=== PATIENT | male | born 2000 | race Two or more races ===

== ENCOUNTER 2025-04-12 03:05 | Emergency (ER) | payer MEDICARE, MEDICAID, SELFPAY ==
[2025-04-12 03:16] VITALS: BMI 25.2
[2025-04-12 03:28] VITALS: PULSE 98; RESP 19; TEMP 36.5; O2SAT 97
--- NOTE | 2025-04-12 03:29 | PC.NURSE ---
difficulty obtaining b/p due to patient constantly moving-per father baseline for patient
[2025-04-12 03:48] VITALS: BP 112/83; PULSE 75; RESP 19; TEMP 36.5; O2SAT 94
--- NOTE | 2025-04-12 04:16 | PD.EDFALL ---
ED Fall Injury RME/HPI General Chief Complaint: Wound/Laceration Stated Complaint: FALL Time Seen by Provider: 04/12/25 03:58 Arrival date/time: 04/12/25 03:05 RME / HPI RME / HPI Narrative: DR. LEO MAIN ED EVALUATION: Patient with Hx of Cerebral Palsy/Developmental Delay reportedly fell from bed while sleeping and procured a laceration to the inferior aspect of the chin. Patient woke up upon impact. No seizure activity or incontinence. Paramedics were summoned and transported patient for evaluation. Patient mildly agitated upon arrival without specific complaint. PMH: CP/Developmental Delay. PSH: Noncontributory. Social:Nondrinker, Nonsmoker, No illicit drug abuse. Fall from: out of bed Place fall occurred: home Loss of consciousness: none Symptoms prior to fall: none Context: history of frequent falls Location of injury: head and face Related Data Home Medications ?Medication ?Instructions ?Recorded ?Confirmed acetaminophen 160 mg/5 mL oral 650 mg feeding tube Q4HR PRN fever 01/16/21 11/02/23 liquid or pain ascorbic acid (vitamin C) 1,000 mg 1 g feeding tube QDAY 01/16/21 11/02/23 tablet (Vitamin C) fluticasone propionate 50 1 spray intranasal BID 01/16/21 05/08/24 mcg/actuation nasal spray,suspension ofloxacin 0.3 % ear drops in a 5 drp otic (ear) BID 01/16/21 11/02/23 dropperette ciprofloxacin 0.3 %-dexamethasone 4 drp otic (ear) BID 03/06/21 11/02/23 0.1 % ear drops,suspension (Ciprodex) omeprazole 20 mg capsule,delayed 20 mg feeding tube DAILY 09/27/23 11/02/23 release levetiracetam 100 mg/mL oral 100 mg feeding tube BID 05/08/24 05/08/24 solution montelukast 10 mg tablet 10 mg feeding tube DAILY 05/08/24 05/08/24 quetiapine 100 mg tablet 100 mg feeding tube HS 05/08/24 05/08/24 quetiapine 50 mg tablet 50 mg feeding tube QAM 05/08/24 05/08/24 Previous Rx's ?Medication ?Instructions ?Recorded acetaminophen 650 mg rectal 650 mg MN Q4H PRN fever #12 ea 03/08/21 suppository (Feverall) albuterol sulfate 2.5 mg/3 mL 2.5 mg (3 mL) continuous 10/08/23 (0.083 %) solution for nebulization nebulization PRN PRN Bronchospasm #90 mL benzonatate 100 mg capsule 100 mg PO TID PRN cough #90 caps 10/08/23 budesonide 0.25 mg/2 mL suspension 0.5 mg (4 mL) inhalation BID #60 mL 10/08/23 for nebulization deutetrabenazine 12 mg 12 mg PO QDAY #30 tabs 10/08/23 tablet,extended release 24 hr (Austedo XR) Held on 05/15/24. Instructions: Follow-up with Dr Lang on dosing. ondansetron HCl 4 mg/5 mL oral 4 mg (5 mL) PO Q8H PRN nausea and 10/08/23 solution vomiting #150 mL polyethylene glycol 3350 17 gram 17 g feeding tube QDAY #100 ea 10/08/23 oral powder packet valproic acid (as sodium salt) 250 250 mg (5 mL) PO TID #473 mL 10/08/23 mg/5 mL oral solution clonazepam 0.5 mg tablet 0.5 mg PO BID PRN agitation #60 11/12/23 tabs ibuprofen 100 mg/5 mL oral 600 mg (30 mL) PO Q6H PRN fever 04/30/24 suspension #473 mL doxycycline hyclate 100 mg tablet 100 mg PO BID #30 tabs 05/15/24 acetaminophen 160 mg/5 mL oral 640 mg (20 mL) PO Q4H PRN fever 2 05/25/24 liquid days #118 mL ibuprofen 100 mg/5 mL oral 680 mg (34 mL) PO Q8H #118 mL 05/25/24 suspension Allergies Allergy/AdvReac Type Severity Reaction Status Date / Time valbenazine (From Ingrezza) Allergy Severe Agitated Verified 11/02/23 00:43 Sulfa (Sulfonamide Allergy Intermediate Rash Verified 11/02/23 00:43 Antibiotics) glycopyrrolate Allergy Rash Verified 11/02/23 00:43 haloperidol Allergy Rash Verified 11/02/23 00:43 sulfamethoxazole (From Allergy Rash Verified 11/02/23 00:43 Bactrim) trimethoprim (From Bactrim) Allergy Rash Verified 11/02/23 00:43 vancomycin AdvReac Intermediate Rash Verified 11/02/23 00:43 lorazepam (From Ativan) AdvReac Mild Agitated Verified 05/08/24 16:44 Review of Systems Review of Systems Systems Reviewed: All systems reviewed, normal except as documented Past Medical History Past Medical History NEUROLOGIC: Positive Neurological Disorders, Seizures, Epilepsy and Cerebral Palsy RESPIRATORY: Positive Asthma and Pneumonia GASTROINTESTINAL: Positive Gastrointestinal Disorders MUSCULOSKELETAL: Positive Musculoskeletal Disorders ENT: Positive Ear Infection (tubes in ears 2013) HEMATOLOGIC: Positive Clotting Problems PSYCHO/SOCIAL: Positive Depression, Anxiety and Behavior Problems OTHER HISTORY: Positive Hospitalization, Developmental Delay and Falls Family History FAMILY HISTORY: Positive Family Respiratory Disorders and Family Surgery Surgical History SURGICAL: Positive Ear Surgery, Abdominal Surgery and Bowel Surgery ED Exam Narrative Physical exam: GEN. APPEARANCE: The patient is alert awake oriented X-3 in no distress, lying down comfortably, does not look ill/toxic. Patient has good eye contact. Patient is cooperative. Patient mildly agitated with increased psycho-motor activity. VITALS: All vitals were reviewed and the pulse ox is 97% on room air which is normal according to my interpretation. HEENT: Normocephalic, Horizontally oriented full-thickness 4 cm laceration to underside of the chin.. Pupils are equal and reactive. Oral mucosa is moist. Patent Nares NECK: Supple, nontender, no thyromegaly, no meningismus, no JVD, no step offs CHEST: Symmetrical, atraumatic, and with equal expansion , Nontender on palpation no deformity and no crepitus. CARDIOVASCULAR: Heart regular rhythm no murmur or gallop rub or extra beats. LUNGS: Clear to auscultation bilaterally with symmetrical chest rise. No laboring tachypnea or wheezing. No intercostal subcostal retraction. No rales and no rhonchi. ABDOMEN: Soft, flat, nontender to palpation, no guarding or rebound tenderness. There are no abnormal masses palpated. Active and normal bowel sounds. EXTREMITIES: Nontender. No edema. No cyanosis. Patient is able to move all 4 extremities well, with full ROM and good CSM. SKIN: Warm and dry, no jaundice or rashes noted. MUSCULOSKELETAL: No lubar or midline bony tenderness. There is no CVA tenderness. No paraspinal muscle spasm or tenderness. NEURO: Patient is SOTELO x 4, Cranial nerves II through XII grossly intact. There is no focal neurologic deficits noted. GCS is 15, PNS and [employer]ICE appear grossly intact. PSYCHIATRIC: Mildly agitated, unable to follow commands and thereby unable for fully assess. Course Quality Measures none Orders Category Date Time Status CT head/brain wo con Stat Exams 04/12/25 04:25 Taken DiphenhydrAMINE INJ [Benadryl Inj] Med 04/12/25 06:08 Discontinued 50 mg .ROUTE .STK-MED ONE DiphenhydrAMINE INJ [Benadryl Inj] Med 04/12/25 06:07 Discontinued 50 mg IVP X1 ONE Lidocaine 1% 20 ml [Xylocaine 1% 20 ML] Med 04/12/25 04:26 Discontinued 10 ml INFL X1 ONE Midazolam Inj [Versed Inj] Med 04/12/25 06:02 Discontinued 2 mg .ROUTE .STK-MED ONE Midazolam Inj [Versed Inj] Med 04/12/25 06:05 Discontinued 2 mg IVP X1 ONE Midazolam Inj [Versed Inj] Med 04/12/25 04:58 Discontinued 2.5 mg IVP X1 ONE TET,DIP/PERT AC (Adult)-Tdap [Boostrix Adult (Tdap) Med 04/12/25 04:26 Discontinued Vacc] 0.5 ml IMI .ONCE ONE Vital Signs Vital signs: Vital Signs Temperature 97.7 F 04/12/25 03:28 Pulse Rate 98 04/12/25 03:28 Respiratory Rate 19 04/12/25 03:28 Pulse Oximetry (%) 97 04/12/25 03:28 PROCEDURES: Laceration Laceration 1: Site: face (Chin) Size (cm): 4 Description: linear Depth: involves muscle layer Local Anesthetic: lidocaine 1% Amount of anesthesia used (mL): 5 Pre-repair: wound explored, irrigated extensively, deep structures intact and wound margins revised Skin layer closed with: vicryl Suture size (cm): 4-0 Number of sutures: 2 Technique: simple, interrupted Subcutaneous layer closed with: other (prolene) Size: 5-0 Number of sutures: 4 Technique: simple, interrupted Fall MDM Narrative MDM Narrative:: Scribe Attestation: Alley Banuelos, am scribing for and in the presence of Dr. Leo. Provider Notation: Although this document has been carefully reviewed, there may still be some phonetic and other typographical errors. These errors are purely grammatical due to imperfections in the software program and should not be construed in any way to compromise the substance of the patient's medical care during this visit. Patient with Hx of Cerebral Palsy/Developmental Delay reportedly fell from bed while sleeping and procured a laceration to the inferior aspect of the chin. Patient woke up upon impact. Please see PE findings. Patient referred for CT scan to R/O intracranial hemorrhage. Patient did require sedation for scan and laceration repair (please see procedure note). Will discharge to home when lucid if CT unremarkable. Disposition, Bacitracin will be prescribed. Head injury care instructions will be provided, suture removal in 6 days. Patient data External records reviewed:: [facility] previous records (Reviewed 05/24/24 20:52 Febrile seizure.) and EMS form Clinical information provided by:: EMS and parent Social determinants that could affect healthcare access:: none Patient has the following chronic illnesses:: Seizures, Epilepsy, Cerebral Palsy, Asthma, Depression, Anxiety, Behavior Problems, Developmental Delay How is presenting disease/condition affected by chronic disease/condition?: exacerbated by Evaluation data The following diagnostics were reviewed and interpreted by me:: radiology exam(s) Lab and/or radiology exams considered but not ordered:: None Interpretation Summary: RADIOLOGY Head/ Brain CT: Pending official radiology report. Medications / Prescriptions Medications or Prescriptions considered but not ordered:: None Medication administrations:: Medication Administration History Discontinued Medications Diphenhydramine HCl (Diphenhydramine Inj 50 Mg/Ml Vial) 50 mg IVP X1 ONE Stop: 04/12/25 06:08 Last Admin: 04/12/25 06:10 Dose: Not Given Documented By: DT Non-Admin Reason: Cancelled by Provider Diphenhydramine HCl (Diphenhydramine Inj 50 Mg/Ml Vial) Confirm Administered Dose 50 mg .ROUTE .STK-MED ONE Stop: 04/12/25 06:09 Diphtheria/Tetanus/Acell Pertussis (Diphth,Pertuss(Acell),Tet Vac 0.5 Ml Syr- Adult) 0.5 ml IMi .ONCE ONE Stop: 04/12/25 04:27 Last Admin: 04/12/25 04:34 Dose: 0.5 ml Documented By: CAYLA Lidocaine HCl (Lidocaine Hcl 1% 20 Ml Vial) 10 ml INFL X1 ONE Stop: 04/12/25 04:27 Last Admin: 04/12/25 04:38 Dose: 10 ml Documented By: CAYLA Comments: Administered by provider Midazolam HCl (Midazolam Inj 1 Mg/Ml Vial 2 Ml) 2.5 mg IVP X1 ONE Stop: 04/12/25 04:59 Last Admin: 04/12/25 05:11 Dose: 2.5 mg Documented By: CAYLA Midazolam HCl (Midazolam Inj 1 Mg/Ml Vial 2 Ml) Confirm Administered Dose 2 mg .ROUTE .STK-MED ONE Stop: 04/12/25 06:03 Last Admin: 04/12/25 06:05 Dose: Not Given Documented By: JOHN Non-Admin Reason: Duplicate Medication on eMAR Midazolam HCl (Midazolam Inj 1 Mg/Ml Vial 2 Ml) 2 mg IVP X1 ONE Stop: 04/12/25 06:06 Last Admin: 04/12/25 06:06 Dose: 2 mg Documented By: JOHN See above if any Consultations Consultation(s) initiated? (list below): No Diagnosis Fall Differential Diagnosis: compression fracture, concussion without loss of consciousness and other (Laceration) Most likely diagnosis given after review of the tests above:: Chin laceration s/p repair, Closed head injury, Hx of CP Admission Indicated Admission indicated?: not indicated Explain why admission is indicated or not indicated:: Patient does not meet admission criteria Admission Request Was there a request for admission?: No Disposition Plan Disposition Plan: Discharge Discharge Attestation Discharge Attestation: The patient and all family members were given an opportunity to ask questions and understood the discharge instructions. Discharge instructions specifically effects, indications for sooner follow up or return to the emergency department, and the expected course of current diagnosis. Patient condition: Stable Discharge Plan Plan Patient Disposition: HOME (Self Care) Prescriptions/Referrals Prescriptions/Med Rec: No Action ciprofloxacin-dexamethasone [Ciprodex] 0.3-0.1 % Drops,Suspension 4 drp OTIC (EAR) BID acetaminophen [Feverall] 650 mg suppository 650 mg MN Q4H PRN (Reason: fever) Qty: 12 0RF fluticasone propionate 50 mcg/actuation spray,suspension 1 spray INTRANASAL BID Patient Comments: PLEASE SEE ATTACHED FOR DETAILED DIRECTIONS ascorbic acid (vitamin C) [Vitamin C] 1,000 mg Tablet 1 g feeding tube QDAY ofloxacin 0.3 % Dropperette 5 drp OTIC (EAR) BID Rx Instructions: 5 drops into the let ear two time a day for 1o days acetaminophen 160 mg/5 mL liquid 650 mg feeding tube Q4HR PRN (Reason: fever or pain) omeprazole 20 mg capsule,delayed release(DR/EC) 20 mg feeding tube DAILY Patient Comments: TOME 1 CAPSULA POR VIA ORAL 30 MINUTOS BEFORE MORNING MEAL benzonatate 100 mg capsule 100 mg PO TID PRN (Reason: cough) Qty: 90 0RF ondansetron HCl 4 mg/5 mL solution 4 mg PO Q8H PRN (Reason: nausea and vomiting) Qty: 150 0RF albuterol sulfate 2.5 mg /3 mL (0.083 %) Solution For Nebulization 2.5 mg Continuous Nebulization PRN PRN (Reason: Bronchospasm) Qty: 90 0RF polyethylene glycol 3350 17 gram Powder In Packet 17 g feeding tube QDAY Qty: 100 0RF valproic acid (as sodium salt) 250 mg/5 mL Solution 250 mg PO TID Qty: 473 0RF budesonide 0.25 mg/2 mL Suspension For Nebulization 0.5 mg inhalation BID Qty: 60 0RF Austedo XR 12 mg tablet extended release 24 hr 12 mg PO QDAY Qty: 30 0RF ibuprofen 100 mg/5 mL suspension 600 mg PO Q6H PRN (Reason: fever) Qty: 473 0RF clonazepam 0.5 mg tablet 0.5 mg PO BID PRN (Reason: agitation ) Qty: 60 0RF quetiapine 50 mg tablet 50 mg feeding tube QAM quetiapine 100 mg tablet 100 mg feeding tube HS Patient Comments: TAKE 1 TABLET BY MOUTH DAILY AT NIGHT Rx Instructions: TAKE 1 TABLET BY MOUTH DAILY AT NIGHT montelukast 10 mg tablet 10 mg feeding tube DAILY Patient Comments: TOME ARBEN TABLETA TODOS LOS TOPETE FOR 90 DAYS levetiracetam 100 mg/mL solution 100 mg feeding tube BID Patient Comments: GIVE NICKY 8 MLS (800 MG TOTAL) BY PER G TUBE ROUTE 2 TIMES A DAY. doxycycline hyclate 100 mg tablet 100 mg PO BID Qty: 30 0RF acetaminophen 160 mg/5 mL liquid 640 mg PO Q4H PRN (Reason: fever) 2 Days Qty: 118 1RF ibuprofen 100 mg/5 mL suspension 680 mg PO Q8H Qty: 118 0RF Problem List Clinical Impression: CHI (closed head injury), Chin laceration, History of cerebral palsy Patient/Caregiver Discharge Instructions Print Language: Divehi Stand Alone Forms: Clari Award Info., Patient Portal Info Letter
--- NOTE | 2025-04-12 04:25 | XR_ITS ---
Examination: CT brain head without contrast. 2-D sagittal coronal reconstructions Date and time of exam:April 12, 2025, 0531 hrs., Comparison May 24, 2024 Indications: Patient fell today with laceration under the chin head pain CTDI: vol (mGy):52 DLP: (mGycm):1004 Technique: Multiple CT axial sections of the brain have been obtained, 5 mm slice thickness. Contrast has not been administered. 2-D sagittal, coronal reconstructions have been obtained Low dose protocols were performed. One or more of the following dose reduction techniques were used; automated exposure control, adjustment of the mA and/or KV according to patient size, use of iterative reconstruction technique. Findings: No significant ventricular enlargement. Intra-axial or extra-axial hemorrhage density is not seen. No mass effect or midline shift Basal cisterns are not remarkable. Fourth ventricle is midline. Cranial vault intact. Right mastoidectomy Impression: Negative for acute hemorrhage, mass effect or midline shift Bilateral chronic mastoiditis Acute right mastoiditis Suspicious for right cholesteatoma in the attic or Prussak's space, consider CT middle inner ear without contrast follow-up
[2025-04-12] MEDS: DIPHTH,PERTUSS(ACELL),TET VAC 0.5 ML SYR- ADULT IMi (04:34)
[2025-04-12] MEDS: LIDOCAINE HCL 1% 20 ML VIAL 10 ML INFL (04:38)
[2025-04-12] MEDS: MIDAZOLAM INJ 1 MG/ML VIAL 2 ML 2.5 MG IVP (05:11)
[2025-04-12 05:19] VITALS: BP 112/73; PULSE 84; RESP 19; O2SAT 97
--- NOTE | 2025-04-12 05:48 | PRELIM_ITS ---
CT scan of the head without intravenous contrast (axial sections with sagittal and coronal reformats). April 12, 2025 0531 hours Clinical History: Trauma Compared with the prior study dated 05/05/2024 Findings: No evidence of intracranial hemorrhage, mass effect or midline shift. The ventricles and CSF spaces are unremarkable. The calvarium is unremarkable. The visualized paranasal sinuses are clear.There is fluid in the bilateral mastoid air cells. Mastoidectomy changes are seen on the right. There is mild middle ear granulation tissue around ossicles on the right. Impression: No evidence of intracranial hemorrhage, mass effect or midline shift. Possible bilateral mastoiditis and right otitis. Recommend clinical correlation. Report Electronically Signed By: Camden Conway 04/12/2025 5:47:45 AM [EST]
[2025-04-12] MEDS: MIDAZOLAM INJ 1 MG/ML VIAL 2 ML 2 MG IVP (06:06)
[2025-04-12 06:41] VITALS: PULSE 77; TEMP 37.1
== END 2025-04-12 06:45 | disposition home or self-care (01) ==
LOC: SERX 06:32
PROVIDERS: Emergency Provider Emergency Medicine; PCP Family Medicine
DX: S01.81XA Laceration without foreign body of other part of head, initial encounter (principal); G80.9 Cerebral palsy, unspecified; W06.XXXA Fall from bed, initial encounter; Y93.84 Activity, sleeping; Z91.81 History of falling; Z23 Encounter for immunization
CPT/HCPCS: 12013; 70450; 90471; 90715; 96374; 96376; 99283; J2250; J3490

== ENCOUNTER 2025-05-08 00:05 | Inpatient (IN) | payer MEDICARE, MEDICAID, SELFPAY ==
[2025-05-08] VITALS (16 sets, daily range): BP systolic 110–147; BP diastolic 62–93; PULSE 79–176; RESP 18–42; TEMP 37.3–40.5; O2SAT 95–99
--- NOTE | 2025-05-08 00:50 | EKG_ITS ---
[facility] Test Date: 2025-05-08 Pat Name: CATARINA CARREON Department: Room: - Gender: Male [employer]: : [id number] Requested By: Atif Nobles Order Number: [id number] Reading MD: Atif Nobles Measurements Intervals [place] Rate: 172 P: MN: QRS: 75 QRSD: 82 T: 60 QT: 277 QTc: 469 Interpretive Statements SUPRAVENTRICULAR TACHYCARDIA NONSPECIFIC ST & T-WAVE ABNORMALITY CRITICAL TEST RESULT Compared to ECG 04/30/2024 13:05:35 T-wave abnormality now present Atrial fibrillation no longer present /store/S0/[id number]
[2025-05-08 01:04] LABS: Basophils # (Auto) 0.1 Thou/mm3 (0.0-0.2); Basophils % (Auto) 1 % (0-2.5); Eosinophils # (Auto) 0.3 Thou/mm3 (0.0-0.5); Eosinophils % (Auto) 2 % (0-10); Hematocrit 44.7 % (41.0-53.0); Hemoglobin 14.0 g/dL (13.5-16.0); Immature Granulocytes Auto 0.08 Thou/mm3 (0.00-0.00); Lymphocytes # (Auto) 4.3 Thou/mm3 (1.0-4.8); Lymphocytes % (Auto) 26 % (10-50); Mean Corpuscular HGB Conc 31.3 g/dl (31.0-37.0); Mean Corpuscular Hemoglobin 28.3 pg (25.0-35.0); Mean Corpuscular Volume 90 fL (80-100); Monocytes # (Auto) 1.8 Thou/mm3 (0.0-0.8); Monocytes % (Auto) 11 % (0-12); Neutrophils # (Auto) 9.9 Thou/mm3 (1.8-7.7); Neutrophils % (Auto) 61 % (37-80); Nucleated Red Blood Cell # 0.00 Thou/mm3 (0.00-0.00); Nucleated Red Blood Cell % 0 /100 WBC (0); Platelet Count 241 Thou/mm3 (140-440); RDW Standard Deviation 46.5 fL (35.1-43.9); Red Blood Count 4.95 Miln/mm3 (4.50-5.90); White Blood Count 16.3 Thou/mm3 (3.8-10.6)
--- NOTE | 2025-05-08 01:08 | PD.EDSEIZ ---
ED Seizures RME/HPI General Chief Complaint: Seizure Stated Complaint: SEIZURES Time Seen by Provider: 05/08/25 00:49 Arrival date/time: 05/08/25 00:05 RME / HPI RME / HPI Narrative: DR. LEO MAIN ED EVALUATION: Patient is severely debilitated with cerebral palsy/asthma/seizure disorder with ongoing fever for 24 hours cough, cold, congestion, no vomiting or diarrhea. 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 Baseline seizures characterized by tonic-clonic activity of left side of body only. No bowel or urinary incontinence. No obvious infectious exposure. PMH: Seizures, Epilepsy, ? 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: No Related Data Home Medications ?Medication ?Instructions ?Recorded ?Confirmed acetaminophen 160 mg/5 mL oral 650 mg feeding tube Q4HR PRN fever 01/16/21 11/02/23 liquid or pain ascorbic acid (vitamin C) 1,000 mg 1 g feeding tube QDAY 01/16/21 11/02/23 tablet (Vitamin C) fluticasone propionate 50 1 spray intranasal BID 01/16/21 05/08/24 mcg/actuation nasal spray,suspension ofloxacin 0.3 % ear drops in a 5 drp otic (ear) BID 01/16/21 11/02/23 dropperette ciprofloxacin 0.3 %-dexamethasone 4 drp otic (ear) BID 03/06/21 11/02/23 0.1 % ear drops,suspension (Ciprodex) omeprazole 20 mg capsule,delayed 20 mg feeding tube DAILY 09/27/23 11/02/23 release levetiracetam 100 mg/mL oral 100 mg feeding tube BID 05/08/24 05/08/24 solution montelukast 10 mg tablet 10 mg feeding tube DAILY 05/08/24 05/08/24 quetiapine 100 mg tablet 100 mg feeding tube HS 05/08/24 05/08/24 quetiapine 50 mg tablet 50 mg feeding tube QAM 05/08/24 05/08/24 Previous Rx's ?Medication ?Instructions ?Recorded acetaminophen 650 mg rectal 650 mg MI Q4H PRN fever #12 ea 03/08/21 suppository (Feverall) albuterol sulfate 2.5 mg/3 mL 2.5 mg (3 mL) continuous 10/08/23 (0.083 %) solution for nebulization nebulization PRN PRN Bronchospasm #90 mL benzonatate 100 mg capsule 100 mg PO TID PRN cough #90 caps 10/08/23 budesonide 0.25 mg/2 mL suspension 0.5 mg (4 mL) inhalation BID #60 mL 10/08/23 for nebulization deutetrabenazine 12 mg 12 mg PO QDAY #30 tabs 10/08/23 tablet,extended release 24 hr (Austedo XR) Held on 05/15/24. Instructions: Follow-up with Dr Lang on dosing. ondansetron HCl 4 mg/5 mL oral 4 mg (5 mL) PO Q8H PRN nausea and 10/08/23 solution vomiting #150 mL polyethylene glycol 3350 17 gram 17 g feeding tube QDAY #100 ea 10/08/23 oral powder packet valproic acid (as sodium salt) 250 250 mg (5 mL) PO TID #473 mL 10/08/23 mg/5 mL oral solution clonazepam 0.5 mg tablet 0.5 mg PO BID PRN agitation #60 11/12/23 tabs ibuprofen 100 mg/5 mL oral 600 mg (30 mL) PO Q6H PRN fever 04/30/24 suspension #473 mL doxycycline hyclate 100 mg tablet 100 mg PO BID #30 tabs 05/15/24 acetaminophen 160 mg/5 mL oral 640 mg (20 mL) PO Q4H PRN fever 2 05/25/24 liquid days #118 mL ibuprofen 100 mg/5 mL oral 680 mg (34 mL) PO Q8H #118 mL 05/25/24 suspension bacitracin 500 unit/gram topical 1 applic topical TID #14 grams 04/12/25 ointment Allergies Allergy/AdvReac Type Severity Reaction Status Date / Time valbenazine (From Ingrezza) Allergy Severe Agitated Verified 11/02/23 00:43 Sulfa (Sulfonamide Allergy Intermediate Rash Verified 11/02/23 00:43 Antibiotics) glycopyrrolate Allergy Rash Verified 11/02/23 00:43 haloperidol Allergy Rash Verified 11/02/23 00:43 sulfamethoxazole (From Allergy Rash Verified 11/02/23 00:43 Bactrim) trimethoprim (From Bactrim) Allergy Rash Verified 11/02/23 00:43 vancomycin AdvReac Intermediate Rash Verified 11/02/23 00:43 lorazepam (From Ativan) AdvReac Mild Agitated Verified 05/08/24 16:44 Review of Systems Review of Systems Systems Reviewed: All systems reviewed, normal except as documented Past Medical History Past Medical History NEUROLOGIC: Positive Seizures, Epilepsy and Cerebral Palsy RESPIRATORY: Positive Asthma and Pneumonia GASTROINTESTINAL: Positive Gastrointestinal Disorders MUSCULOSKELETAL: Positive Musculoskeletal Disorders ENT: Positive Ear Infection (tubes in ears 2013) HEMATOLOGIC: Positive Clotting Problems PSYCHO/SOCIAL: Positive Depression, Anxiety and Behavior Problems OTHER HISTORY: Positive Hospitalization, Developmental Delay and Falls Family History FAMILY HISTORY: Positive Family Respiratory Disorders and Family Surgery Surgical History SURGICAL: Positive Ear Surgery and Abdominal Surgery ED Exam Narrative Physical exam: GEN. APPEARANCE: The patient is non-verbal, occasionally tracks with significant psychomotor activity, lying down comfortably, does not look ill/toxic. Deep-seated moist cough, Notably tachycardic and febrile. VITALS: All vitals were reviewed and the pulse ox is 96% on 2L/min via NC which is normal according to my interpretation. HEENT: Normocephalic, atraumatic. Pupils are equal and reactive. Oral mucosa is moist, poor dentition. Patent Nares NECK: Supple, nontender, no thyromegaly, no meningismus, no JVD, no step offs CHEST: Symmetrical, atraumatic, and with equal expansion , Nontender on palpation no deformity and no crepitus. CARDIOVASCULAR: Tachycardic, no murmur or gallop rub or extra beats. LUNGS: Diminished breath sounds bilaterally with symmetrical chest rise. No laboring tachypnea or wheezing. No intercostal subcostal retraction. No rales and no rhonchi. ABDOMEN: Soft, flat, nontender to palpation, no guarding or rebound tenderness. There are no abnormal masses palpated. Active and normal bowel sounds. EXTREMITIES: Nontender. No edema. No cyanosis. Contracted. SKIN: Warm and dry, no jaundice or rashes noted. MUSCULOSKELETAL: No lubar or midline bony tenderness. There is no CVA tenderness. No paraspinal muscle spasm or tenderness. NEURO: Patient is SOTELO x 4, Cranial nerves II through XII grossly intact. There is no focal neurologic deficits noted. GCS is 15, PNS and TIE BUCKER appear grossly intact. PSYCHIATRIC: Patient is in normal mood and affect, cooperative, no SI or HI or hallucinations. Course Course Course Narrative: Sepsis alert initiated. Orders made at this time are congruent with ED Adult Sepsis Order List. Re-evaluation is to be completed. Quality Measures Current suspected stage: sepsis Possible source: pulmonary Blood cultures ordered: yes Antibiotic ordered: Yes Pertinent labs: 05/08/25 05/08/25 00:50 04:50 Lactic Acid 16.0 H* mMol/L 3.2 H mMol/L (0.4-2.0) (0.4-2.0) Procalcitonin 0.14 ng/ml (0.0-0.49) sepsis and none Orders Category Date Time Status Bedside COVID-19 Antigen Test NOW Care 05/08/25 02:21 Active COVID-19 Screening Questionnaire NOW Care 05/08/25 04:14 Active Cook Chef STAT Care 05/08/25 00:50 Active Continuous Pulse Oximetry STAT Care 05/08/25 00:50 Completed EKG (ED ONLY) *Do not use* NOW Care 05/08/25 00:50 Completed In and Out Catheter X1PRN Care 05/08/25 00:50 Completed Insert IV NOW Care 05/08/25 00:50 Active NPO STAT Care 05/08/25 00:50 Active Strict Intake and Output Routine Care 05/08/25 00:[address] chest abdomen pelvis wo Stat Exams 05/08/25 04:21 Ordered EKG (ED Only) Stat Exams 05/08/25 00:50 Draft XR chest 1V portable Stat Exams 05/08/25 02:57 Taken B-Type Natriuretic Peptide Stat Lab 05/08/25 00:50 Completed Blood Culture (Lab) Stat Lab 05/08/25 00:46 Received CBC Stat Lab 05/08/25 00:50 Completed Comprehensive Metabolic Panel Stat Lab 05/08/25 00:50 Completed Influenza A & B Rapid Panel Stat Lab 05/08/25 02:00 Completed LDH (Lactate Dehydrogenase) Stat Lab 05/08/25 00:50 Completed Lactate (Lactic Acid) Stat Lab 05/08/25 00:50 Completed Lactic Acid, 3 HR Stat Lab 05/08/25 04:50 Completed Lipase Stat Lab 05/08/25 00:50 Completed Magnesium Stat Lab 05/08/25 00:50 Completed Partial Thromboplastin Time Stat Lab 05/08/25 00:50 Completed Phosphorous Stat Lab 05/08/25 00:50 Completed Procalcitonin Stat Lab 05/08/25 00:50 Completed Prothrombin Time with INR Stat Lab 05/08/25 00:50 Completed Troponin I Stat Lab 05/08/25 00:50 Completed Urinalysis, C/S if Indicated Stat Lab 05/08/25 01:07 Completed Valporic Acid (Depak)* Stat Lab 05/08/25 03:04 Received ALBUTEROL RT 3ml [Proventil Rt 3ml] Med 05/08/25 04:01 Discontinued 2.5 mg INH X1 ONE Acetaminophen Supp [Tylenol Supp] Med 05/08/25 01:02 Discontinued 975 mg MI X1 ONE Midazolam Inj [Versed Inj] Med 05/08/25 01:34 Discontinued 2 mg IVP X1 ONE Piper/Tazo 3.375 gm Premix [Zosyn] Med 05/08/25 04:37 Active 3.375 gm in 50 ml IV X1 Ringers Lactated 1000 ml [Lactated Ringers] 1,000 ml Med 05/08/25 04:21 Active IV 999 mls/hr Sodium Chloride 0.9% 1000 ml [Ns] 1,908 ml Med 05/08/25 00:56 Discontinued IV 1,908 mls/hr cefTRIAXone/D5w 1gm IV premix [Rocephin/D5w 1gm IV Med 05/08/25 01:11 Discontinued premix] 1 gm in 50 ml IV X1 Oxygen Delivery NOW RT 05/08/25 00:50 Active Vital Signs Vital signs: Vital Signs Temperature 105 F H 05/08/25 00:26 Pulse Rate 176 H 05/08/25 00:26 Respiratory Rate 26 H 05/08/25 00:26 Blood Pressure 122/84 05/08/25 00:26 Pulse Oximetry (%) 96 05/08/25 00:26 Oxygen Delivery Method Room Air 05/08/25 00:26 Seizure MDM Narrative MDM Narrative:: Scribe Attestation: I, Alley Montilla, am scribing for and in the presence of Dr. Leo. Provider Notation: Although this document has been carefully reviewed, there may still be some phonetic and other typographical errors. These errors are purely grammatical due to imperfections in the software program and should not be construed in any way to compromise the substance of the patient's medical care during this visit. Patient is severely debilitated with cerebral palsy/asthma/seizure disorder with ongoing fever for 24 hours cough, cold, congestion, no vomiting or diarrhea. 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 Please see PE findings. Laboratory markers including CBC demonstrate elevated WBC of 16K, hemoglobin at 14 and normal platelet count. No left shift or associated bandemia. Serum chemistries demonstrated hemoconcentration with sodium at 148, chloride 107, potassium elevated at 5.2, CO2 slightly low at 18.7. Lactic acid markedly elevated at 16.0, glucose normal, Tropoinin I undetected. UA without evidence of infection. CXR demonstrates poor expiratory effort BL, without pleural effusion, or pneuthorax. Patient was immediately triaged and placed on monitored bed, received IV fluids per sepsis protocol, and imperic ABX administered. Patient received anti-pyuretic with gradual reduction in temperature and improvement of vital signs. Given brief nature of patient's seizure during acute febrile illness, reported baseline of mental status, and supple neck, will differ lumbar puncture. Suspect underlying viremia. Nasal swabs for COVID and Influenza are negative. Will discuss with hospitalist for consideration of admission. After aggressive treatment, vital signs improved. Pending results of cultures. Patient data External records reviewed:: [facility] previous records (Reviewed prior ED records from 04/12/25. Patient was seen for CHI (closed head injury).) Clinical information provided by:: parent Social determinants that could affect healthcare access:: none Patient has the following chronic illnesses:: Seizures, Epilepsy, Cerebral Palsy, Asthma, Depression, Anxiety and Behavior Problems How is presenting disease/condition affected by chronic disease/condition?: exacerbated by Evaluation data The following diagnostics were reviewed and interpreted by me:: lab results, radiology exam(s) and EKG tracing(s) (EKG demonstrates SVT rate of 172 bpm, no acute ST segment changes, no ventricular ectopy identified, axis normal, per my interpretation. ) Lab and/or radiology exams considered but not ordered:: None Interpretation Summary: RADIOLOGY Chest X-Ray: Pending official radiology report. Medications / Prescriptions Medications or Prescriptions considered but not ordered:: None Medication administrations:: Medication Administration History Lactated Ringer's (Lactated Ringers) 1,000 mls @ 999 mls/hr IV .Q1H1M ONE Stop: 05/08/25 05:21 Last Admin: 05/08/25 04:28 Dose: 999 mls/hr Documented By: SAÚL Piperacillin/Tazobactam/Dextrose (Zosyn) 3.375 gm in 50 mls @ 100 mls/hr IV X1 ONE; Protocol Stop: 05/08/25 05:06 Last Admin: 05/08/25 04:48 Dose: 100 mls/hr Documented By: SAÚL Discontinued Medications Acetaminophen (Acetaminophen Supp 650 Mg Supp) 975 mg MI X1 ONE Stop: 05/08/25 01:03 Last Admin: 05/08/25 01:27 Dose: 975 mg Documented By: Albuterol (Albuterol Rt 2.5 Mg/3 Ml Nebu) 2.5 mg INH X1 ONE Stop: 05/08/25 04:02 Last Admin: 05/08/25 04:13 Dose: 2.5 mg Documented By: KWESI Sodium Chloride (Ns) 1,908 mls @ 1,908 mls/hr 30 ml/kg infuse over 60 min (1908 ml) IV .Q1H ONE; Protocol Stop: 05/08/25 01:55 Last Infusion: 05/08/25 04:00 Dose: Infused Documented By: Admin: 05/08/25 01:26 Dose: 1,908 mls/hr Documented By: Ceftriaxone Sodium/Dextrose (Rocephin/D5w 1gm Iv Premix) 1 gm in 50 mls @ 100 mls/hr IV X1 ONE Stop: 05/08/25 01:40 Last Infusion: 05/08/25 02:29 Dose: Infused Documented By: Admin: 05/08/25 01:34 Dose: 100 mls/hr Documented By: SE Midazolam HCl (Midazolam Inj 1 Mg/Ml Vial 2 Ml) 2 mg IVP X1 ONE Stop: 05/08/25 01:35 Last Admin: 05/08/25 01:46 Dose: 2 mg Documented By: CCT See above if any Consultations Consultation(s) initiated? (list below): Yes Consultation #1 (Physician, Specialty, Details): Discussed with Dr. Burton for admission. Reviewed the patient?s HPI, PMHx, lab and/or radiology results. Discussed treatment plan. Will consult an admission to the hospitalist. Time: 03:57 Diagnosis Seizure Differential Diagnosis: intractable seizure disorder, febrile convulsion, focal seizure, generalized seizure, epileptic seizure and status epilepticus Most likely diagnosis given after review of the tests above:: Viral pneumonitis, Recurrent seizures, Acute febrile illness Admission Indicated Admission indicated?: indicated Explain why admission is indicated or not indicated:: Viral pneumonitis, Recurrent seizures, Acute febrile illness, Acute sepsis Admission Request Was there a request for admission?: Yes Admission Attestation Admission request attestation: Discussed case with [] from Hospitalist service regarding admission. Discussed patients ED course, exam findings, labs, and radiology results. The Hospitalist [agrees,declines] to accept the patient for admission. Disposition Plan Disposition Plan: Admit Critical Care Time Critical Care Time Critical Care Time: Yes Total Critical Care Time (min.): 40 Attestation: The high probability of sudden, clinically significant deterioration in the patient?s condition required the highest level of my preparedness to intervene urgently. The services I provided to this patient were to treat and/or prevent clinically significant deterioration. Services included the following: chart data review, reviewing nursing notes and/or old charts, documentation time, home performance consultant collaboration regarding findings and treatment options, medication orders and management, direct patient care, vital sign assessments and ordering, interpreting and reviewing diagnostic studies and lab tests. Aggregate critical care time includes only time during which I was engaged in work directly related to the patient?s care, as described above, whether at bedside or elsewhere in the Emergency Department. It did not include time spent performing other reported procedures or the services of residents, students, nurses or physician assistants. Discharge Plan Plan Patient Disposition: Admit Acute Care w/in Hospital Prescriptions/Referrals Prescriptions/Med Rec: No Action ciprofloxacin-dexamethasone [Ciprodex] 0.3-0.1 % Drops,Suspension 4 drp OTIC (EAR) BID acetaminophen [Feverall] 650 mg suppository 650 mg MI Q4H PRN (Reason: fever) Qty: 12 0RF fluticasone propionate 50 mcg/actuation spray,suspension 1 spray INTRANASAL BID Patient Comments: PLEASE SEE ATTACHED FOR DETAILED DIRECTIONS ascorbic acid (vitamin C) [Vitamin C] 1,000 mg Tablet 1 g feeding tube QDAY ofloxacin 0.3 % Dropperette 5 drp OTIC (EAR) BID Rx Instructions: 5 drops into the let ear two time a day for 1o days acetaminophen 160 mg/5 mL liquid 650 mg feeding tube Q4HR PRN (Reason: fever or pain) omeprazole 20 mg capsule,delayed release(DR/EC) 20 mg feeding tube DAILY Patient Comments: TOME 1 CAPSULA POR VIA ORAL 30 MINUTOS BEFORE MORNING MEAL benzonatate 100 mg capsule 100 mg PO TID PRN (Reason: cough) Qty: 90 0RF ondansetron HCl 4 mg/5 mL solution 4 mg PO Q8H PRN (Reason: nausea and vomiting) Qty: 150 0RF albuterol sulfate 2.5 mg /3 mL (0.083 %) Solution For Nebulization 2.5 mg Continuous Nebulization PRN PRN (Reason: Bronchospasm) Qty: 90 0RF polyethylene glycol 3350 17 gram Powder In Packet 17 g feeding tube QDAY Qty: 100 0RF valproic acid (as sodium salt) 250 mg/5 mL Solution 250 mg PO TID Qty: 473 0RF budesonide 0.25 mg/2 mL Suspension For Nebulization 0.5 mg inhalation BID Qty: 60 0RF Austedo XR 12 mg tablet extended release 24 hr 12 mg PO QDAY Qty: 30 0RF ibuprofen 100 mg/5 mL suspension 600 mg PO Q6H PRN (Reason: fever) Qty: 473 0RF clonazepam 0.5 mg tablet 0.5 mg PO BID PRN (Reason: agitation ) Qty: 60 0RF quetiapine 50 mg tablet 50 mg feeding tube QAM quetiapine 100 mg tablet 100 mg feeding tube HS Patient Comments: TAKE 1 TABLET BY MOUTH DAILY AT NIGHT Rx Instructions: TAKE 1 TABLET BY MOUTH DAILY AT NIGHT montelukast 10 mg tablet 10 mg feeding tube DAILY Patient Comments: TOME ARBEN TABLETA TODOS LOS TOPETE FOR 90 DAYS levetiracetam 100 mg/mL solution 100 mg feeding tube BID Patient Comments: GIVE NICKY 8 MLS (800 MG TOTAL) BY PER G TUBE ROUTE 2 TIMES A DAY. doxycycline hyclate 100 mg tablet 100 mg PO BID Qty: 30 0RF acetaminophen 160 mg/5 mL liquid 640 mg PO Q4H PRN (Reason: fever) 2 Days Qty: 118 1RF ibuprofen 100 mg/5 mL suspension 680 mg PO Q8H Qty: 118 0RF bacitracin 500 unit/gram ointment 1 applic topical TID Qty: 14 0RF Referrals: Tavares Cole MD [Primary Care Provider, Family Practice] - In 1 week Problem List Clinical Impression: Viral pneumonitis, Recurrent seizures, Acute febrile illness Patient/Caregiver Discharge Instructions Print Language: Syrian Stand Alone Forms: Clari Award Info., Patient Portal Info Letter
[2025-05-08 01:09] LABS: Lactate (Lactic Acid) 16.0 mMol/L (0.4-2.0)
[2025-05-08 01:14] LABS: Collection Type, Urine Clean Catch; Squamous Epithelial Cell,Urine 0 /hpf (0-5)
[2025-05-08 01:25] LABS: B-Type Natriuretic Peptide < 20 pg/mL (0-100)
[2025-05-08 01:27] LABS: INR 1.0 (0.9-1.3); Partial Thromboplastin Time 25.5 Seconds (22.0-36.0); Prothrombin Time 10.3 Seconds (9.0-12.2)
[2025-05-08 01:27] LABS: Bilirubin,Urine Negative (Negative); Blood,Urine Trace (Negative); Clarity,Urine Clear (Clear/Hazy); Color,Urine Yellow (Lt Yel-Yel); Culture Indicated,Urine Not Indicated; Glucose, Urine Negative (Negative); Ketones,Urine Negative (Negative); Leukocyte Esterase,Urine Negative (Negative); Nitrite,Urine Negative (Negative); PH,Urine 6.0 (5.0-7.0); Protein,Urine 1+ (Neg - Trace); RBC,Urine 8 /hpf (0-3); Renal Epithelial Cells,Urine 6 /hpf (0-5); Specific Gravity,Urine 1.024 (1.001-1.035); Urobilinogen,Urine Negative mg/dL (0.0-1.0); WBC,Urine < 1 /hpf (0-5)
[2025-05-08] MEDS: ACETAMINOPHEN SUPP 650 MG SUPP 975 MG PR (01:27)
[2025-05-08 01:30] LABS: Alanine Aminotransferase 20 U/L (10-49); Albumin, Serum 4.9 gm/dL (3.5-5.0); Albumin/Globulin Ratio 1.6 (1.2-2.2); Alkaline Phosphatase 120 U/L (46-116); Anion Gap 22 (7-16); Aspartate Amino Transferase 31 U/L (0-34); BUN/Creatinine Ratio 12 Ratio (12-20); Bilirubin,Total 0.4 mg/dL (0.3-1.2); Blood Urea Nitrogen 16 mg/dL (9-23); Calcium 9.8 mg/dL (8.3-10.6); Calcium (Corrected) 9.8 mg/dL (8.5-10.1); Carbon Dioxide 18.7 mMol/L (20.0-31.0); Chloride 107 mMol/L (98-107); Creatinine (Component) 1.3 mg/dL (0.6-1.3); Globulin 3.1 gm/dL (2.3-3.5); Glucose 108 mg/dL (74-106); LDH (Lactate Dehydrogenase) 352 U/L (120-246); Lipase 47 U/L (12-53); Magnesium 2.3 mg/dL (1.6-2.6); Osmolality,Calculated 296 (275-295); Phosphorous 3.3 mg/dL (2.4-5.1); Potassium 5.2 mMol/L (3.4-5.1); Procalcitonin 0.14 ng/ml (0.0-0.49); Sodium 148 mMol/L (136-145); Total Protein 8.0 gm/dL (5.7-8.2); Troponin I < 0.002 ng/mL (0.0-0.045); eGFR > 60 See Note
[2025-05-08] MEDS: cefTRIAXone/D5w 1gm IV premix 1 GM/50 ML BAG IV (01:34)
[2025-05-08] MEDS: MIDAZOLAM INJ 1 MG/ML VIAL 2 ML 2 MG IVP ×5 (01:46→20:26)
--- NOTE | 2025-05-08 02:57 | XR_ITS ---
EXAMINATION: AP chest single view TECHNIQUE: AP portable supine chest single view Date and time: May 08, 2025, 0309 hours, comparison May 24, 2024 INDICATIONS: Chest pain fever shortness of breath today, seizure FINDINGS: Poor inspiratory effort chest x-ray No aspiration pneumonia. The osseous structures are intact IMPRESSION: Poor inspiratory effort chest x-ray
[2025-05-08 03:02] LABS: Influenza A Ag Negative; Influenza B Ag Negative
[2025-05-08 03:59] LABS: Reflex Lactate? Y
[2025-05-08] MEDS: ALBUTEROL RT 2.5 MG/3 ML NEBU INH (04:13)
--- NOTE | 2025-05-08 04:21 | XR_ITS ---
Examination: CT chest, without intravenous contrast. CT abdomen, without intravenous contrast. CT pelvis, without intravenous contrast. 2-D sagittal and coronal reconstructions. 3-D reconstructions. Date and time of exam: May 08, 2025, 0520 hours INDICATIONS: Sepsis alert, unknown focus of infection today, seizure history CTDI vol (mgy) 12.31 DLP (MGycm) 882 Technique: Multiple CT images, 3.0 mm slice thickness, obtained chest, abdomen, pelvis, with the high-resolution 64 slice scanner.. Sagittal and coronal 2-D reconstructions are obtained. 3-D reconstructions Low dose protocols were performed. One or more of the following dose reduction techniques were used; automated exposure control, adjustment of the mA and/or KV according to patient size, use of iterative reconstruction technique. Findings: Significant motion artifact No thoracic aortic aneurysmal dilatation Pulmonary artery segments are not enlarged. No lobar pneumonia or pulmonary edema No visualized liver or splenic lesion Contracted gallbladder No pancreatic mass No renal or ureteral calculi, no hydronephrosis Abundant stool throughout the colon No abdominal or pelvic abscess Contracted urinary bladder Osseous structures grossly intact IMPRESSION: The entire study is severely degraded by patient motion No gross infiltrates, recommend follow-up chest imaging to best exclude pneumonia if the patient can cooperate No gross abnormality in the abdomen or pelvis
[2025-05-08] MEDS: RINGERS LACTATED 1000 ML 1,000 ML 999 ML IV ×3 (04:28→17:33)
[2025-05-08] MEDS: PIPER/TAZO 3.375 GM PREMIX 3.375 GM/50 ML BAG IV (04:48)
[2025-05-08 04:52] LABS: Lactic Acid, 3 HR 3.2 mMol/L (0.4-2.0)
--- NOTE | 2025-05-08 05:51 | PRELIM_ITS ---
CT scan of the chest, abdomen and pelvis without intravenous contrast (axial sections with sagittal and coronal reformats) May 08, 2025 0520 hours Clinical History: Rule out focus of infection. Comparison: No prior study is available for comparison. Findings: Cardiac size is normal. No pericardial effusion, pleural effusion or pneumothorax. Pulmonary evaluation is limited by motion. Suspect mild bilateral pulmonary infiltrates. Liver, gallbladder, spleen, pancreas, adrenal glands and kidneys are unremarkable. Gastrostomy tube is in normal position. No urinary tract stone or obstruction is identified. The urinary bladder is normal. No free intraperitoneal air or fluid. Bowel caliber is normal. Prominent colonic stool. No acute osseous process. Impression: Limited by moderate motion artifact. 1. Suspect mild bilateral pulmonary infiltrates. 2. No acute process of the abdomen or pelvis. Report Electronically Signed By: Sid Serrano 05/08/2025 5:50:16 AM [EST]
--- NOTE | 2025-05-08 08:11 | PC.NURSE ---
PT RESTING W/EYES CLOSED UPON ASSUMPTION OF CARE, MOM AT BEDSIDE ATTENTIVE TO PT VSS ON TELE, PT DOES NOT APPEAR TO BE IN DISCOMFORT. WILL CONT W/POC
--- NOTE | 2025-05-08 10:00 | PC.NURSE ---
called admitting team to request admiting orders, spoke w/MD Larson who states they will be down to assess pt, they were waiting on images to result
--- NOTE | 2025-05-08 11:23 | XR_ITS ---
Examination: CT middle inner ear, without contrast. 2-D coronal reconstructions. 2-D sagittal reconstructions. Date and time of exam: May 09, 2025, 0831 hours INDICATIONS: Altered mental status CTDI: vol (mGy): 29.1 DLP: (mGycm): 396 Technique: Multiple 1.0 mm axial sections of the middle inner ears bilaterally. High-resolution 64 slice scanner utilized. 2-D coronal reconstructions 2-D sagittal reconstructions Low dose protocols were performed. One or more of the following dose reduction techniques were used; automated exposure control, adjustment of the mA and/or KV according to patient size, use of iterative reconstruction technique. Findings: Axial sections of the right demonstrate markedly reduced mastoid aeration. Jugular fossa and carotid canal do not appear remarkable. No deformity of the ossicles. Porus acusticus internus does not exhibit erosion. Cochlear apparatus unremarkable. Semicircular canals normal. Right otitis externa, right otitis media Coronal reconstructions demonstrate no erosion of the scutum. Soft tissue mass in the attic or Prussak's space is seen. Ossicular mass intact. Axial sections of the left demonstrate markedly reduced mastoid aeration. Jugular fossa and carotid canal do not appear remarkable. No deformity of the ossicles. Porus acusticus internus does not exhibit erosion. Cochlear apparatus unremarkable. Semicircular canals normal. Left otitis externa Left otitis media Coronal reconstructions demonstrate no erosion of the scutum. Soft tissue mass in the attic or Prussak's space is seen. Ossicular mass intact. Roof of the mastoid air cells appear intact bilaterally. 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
--- NOTE | 2025-05-08 11:36 | ESHP_ITS ---
<Statement entered by Natasha Moreira MD - 05/20/25 17:18> I reviewed above note and agree with findings and plans. I have also personally examined the patient with medicine team and went over assessment and plan with medical team including sports management internship and resident physician. <Statement entered by Ru Larson MD - 05/09/25 07:34> I saw and examined patient personally and supervised PGY 1 resident, Dr. Rosas with formulating a management plan. I agree with the documentation with the exceptions as listed below. 24-year-old male patient with PMH of chronic mastoiditis (previously had tympanostomy tube placed for recurrent otitis media, now removed), seizure disorder, recurrent pneumonia, cerebral palsy, chronic PEG tube, and asthma who was brought into ED on 05/08/25 for ongoing fever of over 24 hour duration with reported episode of witnessed seizure episode prior to arrival lasting 5-10 seconds. Patient was admitted for the work-up and management of sepsis without known source of infection but with high concern for meningitis or acute mastoiditis as well as witnessed episodes of seizures. Problem list: 1. Sepsis of unclear etiology?likely PUMP TESTER origin [meningitis rule out] 2. Breakthrough seizures secondary to sepsis 3. History of chronic mastoiditis s/p right tympanostomy tube removal April 2024 4. Cerebral palsy 5. Hyper CKemia 6. Heart murmur secondary to lactic acidosis?resolved 7. Hyperkalemia 8. Paraphimosis 9. Maculopapular rash to the buttocks Patient was seen and examined in the ED and appeared agitated. Nurses informed us that patient pulled out his IV and Midazolam 2mg , benadrly 50mg IM and Haldol 2mg IM were ordered. Again we were called by ED at 2:30 pm that peripheral access attempts were unsuccessful and a RIght femoral central line was placed. Hospitalist team took over management and again ordered Midazolam 2mg IV , benadrly 50mg IV and Haldol 2mg IV. Upon reaching telemetry antibiotics, antivirals and tylenol IV were started. Currently working diagnosis for sepsis as meningitis rule out. Patient was empirically started on broad-spectrum antibiotic and antiviral coverage with ceftriaxone 2 g IV twice daily, vancomycin pharmacy to dose, ampicillin and acyclovir. CT head and CT middle area were ordered. Neurology, Dr Lang was consulted, appreciate recommendations. For patient's seizures, his home medication of valproic acid and levetiracetam were restarted. Midazolam and Haldol as needed order also placed for breakthrough seizures/agitation. An ice pack was ordered for his paraphimosis, if no improvement will consider Urology consult. Plan of care discussed with Attending Dr. Harish Larson MD PGY 2 Disclaimer: This note was dictated by speech recognition. Minor errors in pump tester may be present due to voice recognition software. Documentation for date of: 05/08/25 HPI History of Present Illness History of present illness: 24-year-old male patient with PMH of chronic mastoiditis (previously had tympanostomy tube placed for recurrent otitis media, now removed), seizure disorder, recurrent pneumonia, cerebral palsy, chronic PEG tube, and asthma who was brought into ED on 05/08/25 for ongoing fever of over 24 hour duration with reported episode of witnessed seizure episode prior to arrival lasting 5-10 seconds. Per ED note, patient's seizures are apparently characterized by tonic- clonic activity of the left side of the body only. Of note, patient was recently seen in the ED on 04/12/25 for ground-level fall that resulted in a laceration to the inferior aspect of the chin. In the ED, vitals showed: BP 122/84 HR 176 RR 26 Temp 105 SpO2 96% on room air ED Course: CBC showed WBC 16.3 but was otherwise WNL. Coagulation panel was WNL. CMP showed sodium 148, potassium 5.2, chloride 107, bicarbonate 18.7, anion gap 22, creatinine 1.3 (baseline 0.7), calculated osmolality 296, lactic acid 3.2, alkaline phosphatase 120, LDH 352, total CK 1048, and procalcitonin 0.14. UA was bland. Influenza A/B was negative. Imagin/12 EKG showed supraventricular tachycardia of HR [address] and T-wave abnormality. 05/08 CXR showed no aspiration pneumonia but was noted to be of poor inspiratory effort. 05/08 CT CAP w/o contrast seemed to show no gross infiltrates or other notable findings but was noted to be severely degraded by patient motion. In the ED, patient was given acetaminophen, ceftriaxone, midazolam, albuterol, Zosyn, haloperidol, Benadryl, Keppra, 2 L NS fluid infusion, and 1 L LR fluid infusion. Patient was admitted for the work-up and management of sepsis without known source of infection but with high concern for meningitis or acute mastoiditis as well as witnessed episodes of seizures. Neurology and ID have been consulted. Review of Systems Review of Systems Systems Reviewed: All systems reviewed, normal except as documented Exam Vital Signs Temp Pulse Resp BP Pulse Ox O2 Del Method O2 Flow Rate 100.7 F H 102 H 20 130/72 95 Nasal Cannula 2 05/08/25 10:09 05/08/25 10:09 05/08/25 10:09 05/08/25 10:09 05/08/25 10:09 05/08/25 10:05/08/25 10:09 Narrative Exam General: Alert, nonverbal, appears acutely distressed and actively moving all four extremities in an agitated fashion. Skin: Rash near buttock area. Warm, dry, intact. Head: Febrile. Normocephalic, atraumatic. Eyes: PERRL, EOMI. Anicteric, vision grossly intact. Mouth/Throat: Poor dentition. Oral mucosa moist. No obvious lesions in oropharynx. Cardiovascular: Tachycardic rate and normal rhythm, no murmur, no JVD or carotid bruits. +S1/S2. Respiratory: Tachypneic. Diminished breath sounds of bilateral anterior lung thompson on auscultation. No crackles, no wheezing. No accessory muscle use. Gastrointestinal: PEG tube in place. Soft, non-distended, no palpable masses. No guarding or rebound tenderness. Peristalsis present. Genitourinary: Paraphimosis of penis noted. Extremities: Contracted. No edema, cyanosis, mottling, clubbing. 2+ radial pulse bilaterally, 2+ posterior tibial pulse bilaterally. Results: Labs 05/09/25 05:17 05/09/25 05:17 Labs: Short CBC 05/08/25 Range/Units 00:50 WBC 16.3 H (3.8-10.6) Thou/mm3 Hgb 14.0 (13.5-16.0) g/dL Hct 44.7 (41.0-53.0) % Plt Count 241 (140-440) Thou/mm3 BMP 05/08/25 00:50 Sodium 148 H Potassium 5.2 H Chloride 107 Carbon Dioxide 18.7 L BUN 16 Creatinine 1.3 Glucose 108 H Calcium 9.8 Cardiac Enzymes 05/08/25 Range/Units 00:50 Troponin I < 0.002 (0.0-0.045) ng/mL Liver Function 05/08/25 Range/Units 00:50 Total Bilirubin 0.4 (0.3-1.2) mg/dL AST 31 (0-34) U/L ALT 20 (10-49) U/L Alkaline Phosphatase 120 H (46-116) U/L Albumin 4.9 (3.5-5.0) gm/dL Urine 05/08/25 Range/Units 01:07 Urine Color Yellow (Lt Yel-Yel) Urine Clarity Clear (Clear/Hazy) Urine pH 6.0 (5.0-7.0) Ur Specific [place] 1.024 (1.001-1.035) Urine Protein 1+ A (Neg - Trace) Urine Glucose (UA) Negative (Negative) Quality Measures Quality Measures sepsis Current suspected stage: sepsis Possible source: pulmonary Blood cultures ordered: yes Antibiotic ordered: Yes and none Medications Home Medications and Allergies Home Medications ?Medication ?Instructions ?Recorded ?Confirmed ?Type acetaminophen 160 mg/5 mL oral 650 mg feeding tube Q4H R PRN fever 01/16/21 05/08/25 History liquid or pain ascorbic acid (vitamin C) 1,000 mg 1 g feeding tube QD AY 01/16/21 05/08/25 History tablet (Vitamin C) fluticasone propionate 50 1 spray intranasal BID 01/1605/08/25 History mcg/actuation nasal spray,suspension ofloxacin 0.3 % ear drops in a 5 drp otic (ear) BID 05/08/25 History dropperette ciprofloxacin 0.3 %-dexamethasone 4 drp otic (ear) BID 03/06/21 05/08/25 History 0.1 % ear drops,suspension (Ciprodex) omeprazole 20 mg capsule,delayed 20 mg feeding tube DA BOB 09/27/23 05/08/25 History release levetiracetam 100 mg/mL oral 100 mg feeding tube BID 1 05/08/25 History solution montelukast 10 mg tablet 10 mg feeding tube DAILY 07/2005/08/25 History quetiapine 100 mg tablet 100 mg feeding tube HS 05/0805/08/25 History quetiapine 50 mg tablet 50 mg feeding tube QAM 05/0805/08/25 History Allergies Allergy/AdvReac Type Severity Reaction Status Date / Time valbenazine (From Ingrezza) Allergy Severe Agitated Verified 11/02/23 00:43 Sulfa (Sulfonamide Allergy Intermediate Rash Verified 11/02/23 00:43 Antibiotics) glycopyrrolate Allergy Rash Verified 11/02/23 00:43 haloperidol Allergy Rash Verified 11/02/23 00:43 sulfamethoxazole (From Allergy Rash Verified 11/02/23 00:43 Bactrim) trimethoprim (From Bactrim) Allergy Rash Verified 11/02/23 00:43 Visit Medications Ceftriaxone Sodium 2 gm/ (Sodium Chloride) 50 mls @ 100 mls/hr IV Q12HR KYA Stop: 05/15/25 11:19 Acyclovir Sodium 700 mg/ (Sodium Chloride) 114 mls @ 100 mls/hr IV Q8HR KYA Stop: 05/15/25 13:59 Ampicillin Sodium 2,000 mg/ (Sodium Chloride) 100 mls @ 100 mls/hr IV Q4HR KYA Stop: 05/15/25 11:21 Lactated Ringer's (Lactated Ringers) 1,000 mls @ 100 mls/hr IV .Q10H KYA Stop: 06/07/25 11:23 Lactated Ringer's (Lactated Ringers) 1,000 mls @ 999 mls/hr IV .Q1H1M ONE Stop: 05/08/25 12:23 Levetiracetam (Levetiracetam Liqd 500 Mg/5 Ml Udc) 800 mg GT BID KYA Stop: 06/07/25 10:29 Midazolam HCl (Midazolam Inj 1 Mg/Ml Vial 2 Ml) 2 mg IVP X1 PRN PRN Reason: Seizure > 3 mins Pharmacy Consult (Vancomycin Pharmacy To Dose 1 Each Each) 1 each IV QDAY KYA Stop: 06/07/25 11:29 Valproic Acid (Valproic Acid Syrup 250 Mg/5 Ml Udc) 250 mg GT TID KYA Stop: 06/07/25 13:59 Discontinued Medications Acetaminophen (Acetaminophen Supp 650 Mg Supp) 975 mg HI X1 ONE Stop: 05/08/25 01:03 Last Admin: 05/08/25 01:27 Dose: 975 mg Albuterol (Albuterol Rt 2.5 Mg/3 Ml Nebu) 2.5 mg INH X1 ONE Stop: 05/08/25 04:02 Last Admin: 05/08/25 04:13 Dose: 2.5 mg Sodium Chloride (Ns) 1,908 mls @ 1,908 mls/hr 30 ml/kg infuse over 60 min (1908 ml) IV .Q1H ONE; Protocol Stop: 05/08/25 01:55 Last Infusion: 05/08/25 04:00 Dose: Infused Ceftriaxone Sodium/Dextrose (Rocephin/D5w 1gm Iv Premix) 1 gm in 50 mls @ 100 mls/hr IV X1 ONE Stop: 05/08/25 01:40 Last Infusion: 05/08/25 02:29 Dose: Infused Lactated Ringer's (Lactated Ringers) 1,000 mls @ 999 mls/hr IV .Q1H1M ONE Stop: 05/08/25 05:21 Last Infusion: 05/08/25 06:22 Dose: Infused Piperacillin/Tazobactam/Dextrose (Zosyn) 3.375 gm in 50 mls @ 100 mls/hr IV X1 ONE; Protocol Stop: 05/08/25 05:06 Last Infusion: 05/08/25 05:37 Dose: Infused Midazolam HCl (Midazolam Inj 1 Mg/Ml Vial 2 Ml) 2 mg IVP X1 ONE Stop: 05/08/25 01:35 Last Admin: 05/08/25 01:46 Dose: 2 mg Assessment & Plan Plan 24-year-old male patient with PMH of chronic mastoiditis (previously had tympanostomy tube placed for recurrent otitis media, now removed), seizure disorder, recurrent pneumonia, cerebral palsy, chronic PEG tube, and asthma who was brought into ED on 05/08/25 for ongoing fever of over 24 hour duration with reported episode of witnessed seizure episode prior to arrival lasting 5-10 seconds. Patient was admitted for the work-up and management of sepsis without known source of infection but with high concern for meningitis or acute mastoiditis as well as witnessed episodes of seizures. #Sepsis, likely 2/2 #Meningitis vs. acute on chronic mastoiditis #Acute febrile illness #Leukocytosis Patient meets 4/4 SIRS criteria by the following: Temperature above 100.4 or below 98.6 (105), HR>90 (176), RR>20 or PaCO2<32 (26), WBC above 12 or below 4 (16.3) but no clear source of infection qSOFA rating suggests higher risk for adverse outcomes such as in-hospital mortality due to 2 or more of the following criteria met: SBP<100 (not met), RR 22 or more (met), GCS less than 15 (met) Procalcitonin 0.14 05/08 CXR was negative for pneumonia, 05/08 UA was bland, 05/08 CT CAP was negative for intraabdominal infection, and skin survey did not reveal cellulitis Currently suspect that nidus of infection is meningitis or acute on chronic mastoiditis, however this hypothesis is by process of elimination rather than by clear evidence In the context of fluid resuscitation, patient is s/p 3 L of IV fluid. Dx: -Ordered CT ear mid-inner w/ contrast, results pending -Ordered BCx, results pending -Ordered lactate q4HR, LA 16.0 -> 3.2 -> 7.4 -Ordered MRSA nares, results pending -Ordered Cocci serology, results pending -Considered LP but, per Neurology (Dr. Lang), patient's restlessness would make this a difficult pursuit Rx: -IV vancomycin dosed by pharmacy [05/08--] -IV Rocephin 2 gm q12HR [05/08--] -IV ampicillin 2 gm q4HR [05/08--] -IV acyclovir 700 mg [05/08--] -Aggressive fluid resuscitation -Isolation precautions -ID consulted, appreciate recommendations -Neurology consulted, appreciate recommendations #Seizure-like activity i/s/o sepsis #Hx of seizure disorders i/s/o cerebral palsy #HyperCKemia Patient was reported to have a brief episode of seizure-like activity of 5-10 second duration prior to arriving in the ED on 05/08 Likely true seizures due to sudden bouts of lactic acidosis with quick resolution (LA 16.0 -> 3.2) and elevated CK (1048) Currently suspect that patient has seizures at baseline that are usually well- controlled with home antiepileptic regimen but are now breaking through due to acute infection Dx: -Ordered EEG awake and drowsy, results pending -Ordered 05/08 valproic acid level, results pending -Lactate as above Rx: -GT Keppra 800 mg BID -GT Depakote 250 mg TID -IV Versed 2 mg prn for breakthrough seizures -Antibiotic treatment of likely inciting etiology (sepsis) as above -Seizure precautions -Aspiration precautions -Neurology consulted, appreciate recommendations #Agitation #Developmental delay i/s/o cerebral palsy #Nonverbal i/s/o cerebral palsy Patient seems to be uncomfortable and is uncooperative and noted to be actively flailing Differentials include: 2/2 meningitis, acute on chronic mastoiditis, delirium, post-ictal confusion, drug-induced akathisia 05/08, s/p IM Benadryl 12.5 mg x 1 and IV Benadryl 12.5 mg x 1 s/p IM Haldol 2 mg x 1, IV Haldol 2.5 mg x 1 s/p IM Versed 2 mg x 1, IV Versed 2 mg x 2 Rx: -IV Versed 2 mg x 1 prn for breakthrough agitation (1 dose remaining), use first before resorting to Haldol due to patient's concurrent risk for seizures -IV Haldol 5 mg q6HR prn for breakthrough agitation -Treat underlying conditions that may contribute to discomfort #VITALIY, likely prerenal 2/2 #Sepsis Creatinine 1.3 (baseline: 0.7), eGFR > 60 In the contexts of fluids, patient is s/p 3 L Rx: -Aggressive fluid resuscitation -Monitor renal panel -Avoid nephrotoxic agents (aminoglycosides, NSAIDs, radiographic contrast) -Adjust medication dosing based on patient's impaired renal function -Hold any YVON/ARB/diuretics #HAGMA #Lactic acidosis i/s/o seizure-like activity and sepsis Admission anion gap 22, lactic acid 16.0, bicarbonate 18.7 Main contributor of acidemia is likely from seizures as patient does not seem to have skin mottling or overt shock leading to systemic hypoperfusion Dx: -Lactate as above Rx: -Treat underlying cause (seizure disorder and sepsis) #Electrolyte derangements #Hypernatremia #Hyperkalemia Admission sodium 148, potassium 5.2 Rx: -Correct as appropriate #Paraphimosis On physical exam, patient is noted to have edematous foreskin of the penis Rx: -Apply ice to area to reduce swelling -May require surgical intervention at some point Hospital Management: Disposition: Admitted to [facility] for the work-up and management of sepsis without known source of infection but with high concern for meningitis or acute mastoiditis as well as witnessed episodes of seizures Diet: NPO GI Prophylaxis: Not Indicated Bowel Prophylaxis: Senna DVT Prophylaxis: None CODE STATUS: Full Code I have examined the patient and conferred with my attending, Dr. Moreira, and my senior resident, Dr. Larson, regarding them. Gerardo Rosas, DO PGY-1 Internal Medicine
--- NOTE | 2025-05-08 12:00 | PC.NURSE ---
PT REMOVED IV, THIS RN WITH 6 OTHER STAFF MEMBERS ATTEMPTED TO HOLD PT DOWN TO GET IV ACCESS, UNABLE TO. THIS RN CALLED MD TO REQUEST IM MED TO HELP PT RELAX ENOUGH TO SAFELY GET ACCESS.
[2025-05-08 12:17] LABS: Lactate (Lactic Acid) 7.4 mMol/L (0.4-2.0)
[2025-05-08 12:22] LABS: Basophils # (Auto) 0.1 Thou/mm3 (0.0-0.2); Basophils % (Auto) 0 % (0-2.5); Eosinophils # (Auto) 0.1 Thou/mm3 (0.0-0.5); Eosinophils % (Auto) 1 % (0-10); Hematocrit 36.4 % (41.0-53.0); Hemoglobin 12.0 g/dL (13.5-16.0); Immature Granulocytes Auto 0.08 Thou/mm3 (0.00-0.00); Lymphocytes # (Auto) 3.8 Thou/mm3 (1.0-4.8); Lymphocytes % (Auto) 26 % (10-50); Mean Corpuscular HGB Conc 33.0 g/dl (31.0-37.0); Mean Corpuscular Hemoglobin 28.4 pg (25.0-35.0); Mean Corpuscular Volume 86 fL (80-100); Monocytes # (Auto) 2.2 Thou/mm3 (0.0-0.8); Monocytes % (Auto) 15 % (0-12); Neutrophils # (Auto) 8.7 Thou/mm3 (1.8-7.7); Neutrophils % (Auto) 58 % (37-80); Nucleated Red Blood Cell # 0.00 Thou/mm3 (0.00-0.00); Nucleated Red Blood Cell % 0 /100 WBC (0); Platelet Count 209 Thou/mm3 (140-440); RDW Standard Deviation 44.4 fL (35.1-43.9); Red Blood Count 4.23 Miln/mm3 (4.50-5.90); White Blood Count 14.9 Thou/mm3 (3.8-10.6)
[2025-05-08] MEDS: MIDAZOLAM INJ 1 MG/ML VIAL 2 ML 2 MG IM (12:38)
[2025-05-08 12:39] LABS: Alanine Aminotransferase 21 U/L (10-49); Albumin, Serum 4.0 gm/dL (3.5-5.0); Albumin/Globulin Ratio 1.6 (1.2-2.2); Alkaline Phosphatase 87 U/L (46-116); Anion Gap 17 (7-16); Aspartate Amino Transferase 49 U/L (0-34); BUN/Creatinine Ratio 13 Ratio (12-20); Bilirubin,Total 0.4 mg/dL (0.3-1.2); Blood Urea Nitrogen 13 mg/dL (9-23); Calcium 8.8 mg/dL (8.3-10.6); Calcium (Corrected) 8.8 mg/dL (8.5-10.1); Carbon Dioxide 19.1 mMol/L (20.0-31.0); Chloride 110 mMol/L (98-107); Creatine Kinase 1048 U/L (34-171); Creatinine (Component) 1.0 mg/dL (0.6-1.3); Globulin 2.5 gm/dL (2.3-3.5); Glucose 78 mg/dL (74-106); Osmolality,Calculated 289 (275-295); Potassium 5.3 mMol/L (3.4-5.1); Sodium 146 mMol/L (136-145); Total Protein 6.5 gm/dL (5.7-8.2); eGFR > 60 See Note
[2025-05-08] MEDS: HALOPERIDOL LACT INJ 5 MG/ML VIAL 2 MG IM (13:30)
--- NOTE | 2025-05-08 13:45 | PC.RT ---
Went to ED-8 to evaluate patient for EEG. Patient was moving around like crazy and clearly not in any condition to have EEG done. RN advised I wait until his medication takes affect and he's taken upstairs to his room.
[2025-05-08] MEDS: levETIRAcetam LIQD 500 MG/5 ML UDC 800 MG GT ×2 (13:47→17:48)
--- NOTE | 2025-05-08 13:49 | PC.NURSE ---
IV ATTEMPTED AGAIN MULTIPLE TIMES, PT CONTINUES THRASHING, THIS RN CALLED MD, REQUEST MORE MEDICATION, IM GIVEN, WILL WAIT AND ATTEMPT AGAIN
[2025-05-08 15:00] LABS: Cocci Serology, IgM Negative (Negative)
[2025-05-08] MEDS: HALOPERIDOL LACT INJ 5 MG/ML VIAL 2.5 MG IV (15:01)
--- NOTE | 2025-05-08 15:03 | PD.EDADDENDU ---
Emergency Room Addendum Addendum Narrative: 24-year-old male with a history of seizures, epilepsy, cerebral palsy (questioned), asthma, depression, anxiety, and behavioral disturbances who was admitted for meningitis and sepsis. At 1430 hours, nursing staff notified that the patient still had no IV access and had not yet received antibiotics. On assessment, patient was agitated, developmentally delayed, and in visible distress, with multiple failed peripheral IV attempts. Given the critical nature of meningitis and sepsis, and the urgent need for IV access to initiate antibiotics and fluids, a right femoral central line was placed emergently for vascular access. The procedure was performed under sterile conditions without complications, with good blood return from all ports, see procedure note under procedures. The resident and hospitalist team were notified immediately of the patient?s condition and the successful line placement, and they were requested to reassess the patient promptly to ensure continuation of care and initiation of antibiotics. ED Procedures Central Line Placement Right Femoral: Time Out Performed: Yes Patient Placed on Monitor/Pulse Ox: Yes MD Prep: mask, gown and gloves Central Line Prep: Povidone-Iodine 1%, Chlorhexidine scrub and sterile drapes applied Local Anesthetic: lidocaine 2% Amount of anesthesia used (mL): 5 Ultrasound Used for Placement: Yes Central Line Lumen Inserted: triple Post Procedure: sutured in place, good blood return, all ports aspirated, flushed, capped and sterile dressing applied Post Procedure X-Ray: tip of catheter in good position and no pneumothorax seen Patient Tolerated Procedure: well and no complications Complications: none
[2025-05-08 15:14] LABS: Reflex Lactate? Y
[2025-05-08] MEDS: ACETAMINOPHEN IVPB 1,000 MG/100 ML VIAL 250 MG IV (15:16)
[2025-05-08] MEDS: VALPROIC ACID SYRUP 250 MG/5 ML UDC GT ×2 (15:39→15:40)
--- NOTE | 2025-05-08 15:42 | PC.NURSE ---
1300 THIS RN CALLED FLOOR RN TO UPDATE THAT CENTRAL LINE WAS PLACED IN RIGHT FEM. IT TOOK 8 STAFF MEMBERS TO HOLD PT DOWN FOR PROCEDURE. ADMITTING TEAM WAS CALLED DOWN WELL
[2025-05-08] MEDS: Ampicillin Inj 2,000 MG in SODIUM CHLORIDE 0.9% (POP) 100 ML 100 MG IV ×2 (15:45→17:48)
[2025-05-08] MEDS: cefTRIAXone 2 GM in SODIUM CHLORIDE 0.9% (Popper) 50 ML IV ×2 (15:46→20:27)
[2025-05-08] MEDS: RINGERS LACTATED 1000 ML 1,000 ML 100 ML IV (15:47)
[2025-05-08 16:06] LABS: Lactic Acid, 3 HR 1.6 mMol/L (0.4-2.0)
[2025-05-08] MEDS: HYDROCORTISONE SOD SUCC INJ 100 MG 2 ML VIAL IV (16:32)
--- NOTE | 2025-05-08 16:34 | XR_ITS ---
Examination: CT brain head without contrast. 2-D sagittal coronal reconstructions Date and time of exam: May 09, 2025, 0830 hours, comparison 04/12/2025 INDICATIONS: Nonverbal patient with altered mental status CTDI: vol (mGy): 60.6 DLP: (mGycm): 1243 Technique: Multiple CT axial sections of the brain have been obtained, 5 mm slice thickness. Contrast has not been administered. 2-D sagittal, coronal reconstructions have been obtained Low dose protocols were performed. One or more of the following dose reduction techniques were used; automated exposure control, adjustment of the mA and/or KV according to patient size, use of iterative reconstruction technique. Findings: No significant ventricular enlargement. Intra-axial or extra-axial hemorrhage density is not seen. No mass effect or midline shift Basal cisterns are not remarkable. Fourth ventricle is midline. Cranial vault intact. Impression: Negative for acute hemorrhage, mass effect or midline shift Prominent sphenoid ethmoid maxillary antral sinusitis Bilateral chronic mastoiditis Bilateral otitis media Opacification in the bilateral attics, consider cholesteatoma
[2025-05-08] MEDS: ACYCLOVIR INJ 640 MG in SODIUM CHLORIDE 0.9% 100 ML 98.947 MG IV (17:33)
[2025-05-08] MEDS: VANCOMYCIN/NS 1 GM IVPB 200 ML IV (17:36)
--- NOTE | 2025-05-08 17:48 | PD.RESPRO ---
Documentation for date of: 05/09/25 No overnight events. Patient examined at bedside. Patient continues to be restless likely secondary to paraphimosis given increased swelling and increasing agitation. [place] called given sever agitation likely secondary to paraphimosis and history of developmental days. Pain mangement started. Diazepam on board. Haoperidol added PRN. ABG and repeat chest x-ray obtained. ABG noted for hypoxia, given O2 saturation, likely accurate ABG. Request to start high flow. Urology consulted. Scheduled procedure this evening with urology. Continue IV board antibiotics, pending cultures, but less likely meningitis etiology. Patient likely to be upgraded to ICU given need for sedation urology procedure, worsening agitation likely secondary to pain, and hypoxia. - The patient's plan was discussed with attending Dr. Conrado Henson MD PGY2 Internal Medicine Subjective Subjective Interval history: Morning labs today significant for WBC 14.9 -> 10.8, Hgb 12.0 -> 10.5, magnesium 1.5, AST 49 -> 106, LDH 332, and total CK 3743. 05/08 CT of middle inner ear w/o contrast and CT head w/o contrast showed severe bilateral chronic mastoiditis, bilateral otitis externa, bilateral otitis media, bilateral cholesteatomas in the attics, and prominent sphenoid ethmoid maxillary antral sinusitis. 05/09 CXR taken after patient became hypoxic today showed bilateral perihilar pneumonia. 05/09 abdominal XR showed no signs of bowel obstruction. Per ID, patient's ongoing fever and likely sepsis could be 2/2 viral illness; however, the etiology underlying patient's current presentation is still not entirely clear with meningitis being unable to be r/o'd (per Neurology, patient is likely to be a difficult candidate for LP). Today, patient had two rapid response interventions called. The first was called @ 8:05 for apparent agitation that had been refractory to Versed, Haldol, and Benadryl. At the time, patient had elevated BP, tachycardia 143, and tachypnea 33 and patient received Valium 5 mg x 1. Patient was examined at bedside at this time and was noted to have worsening paraphimosis which had lead to increasing swelling and erythema of the glans penis from yesterday. Urology (Dr. Vargas) was consulted at this time. A second rapid response was called @ 13:28 for similar concerns with similar elevated vital signs and patient received IV Dilaudid 1 mg, nasotracheal suction, had a bedside glucose ordered and an ABG ordered. The repeat ABG resulted at 13:40 and revealed: pH 7.27, pCO2 43, pO2 53, HCO3 20. At this point, ICU evaluated the patient and noted him to be extremely agitated while on oxygen mask, with audible gurgling sounds coming from the upper airway, which raised concern for potential airway compromise. Given the risk of inadequate airway protection, the decision was made to transfer the patient to the ICU for intubation and further management. Exam Vital Signs Temp Pulse Resp BP Pulse Ox O2 Del Method O2 Flow Rate 99.1 F 79 29 H 113/92 H 95 Oxy Mask 2 05/08/25 16:00 05/08/25 16:00 05/08/25 16:00 05/08/25 16:00 05/08/25 16:00 05/08/25 16:00 05/08/25 10:09 Narrative Exam General: Alert but nonverbal, appearing acutely distressed and exhibiting agitation, with active movement of all four extremities. Skin: Rash near buttock area. Head: Normocephalic, atraumatic. Eyes: PERRL, EOMI. Anicteric. Mouth/Throat: Poor dentition. Oral mucosa moist. No obvious lesions in oropharynx. Cardiovascular: Tachycardic rate and normal rhythm, no murmur. Respiratory: Tachypneic. Unamenable to proper auscultation. No accessory muscle use. Gastrointestinal: PEG tube in place. Soft, non-distended, no guarding or rebound tenderness. Genitourinary: Paraphimosis of penis (clearly worsened from yesterday, with increased swelling and erythema noted of the glans penis). Extremities: Contracted. No edema, cyanosis, mottling, clubbing. 2+ radial pulse bilaterally, 2+ posterior tibial pulse bilaterally. Objective Labs 05/11/25 05:07 05/11/25 05:07 Labs: Laboratory Results - last 24 hr 05/08/25 05/08/25 05/08/25 00:50 01:07 02:00 WBC 16.3 H RBC 4.95 Hgb 14.0 Hct 44.7 MCV 90 MCH 28.3 MCHC 31.3 RDW Std Deviation 46.5 H Plt Count 241 Neut % (Auto) 61 Lymph % (Auto) 26 [place] % (Auto) 11 Eos % (Auto) 2 Baso % (Auto) 1 Neut # (Auto) 9.9 H Lymph # (Auto) 4.3 [place] # (Auto) 1.8 H Eos # (Auto) 0.3 Baso # (Auto) 0.1 Immature Gran # (Auto) 0.08 H Absolute Nucleated RBC 0.00 Immature Gran % 1 H Nucleated RBC % 0 PT 10.3 INR 1.0 APTT 25.5 Sodium 148 H Potassium 5.2 H Chloride 107 Carbon Dioxide 18.7 L Anion Gap 22 H BUN 16 Creatinine 1.3 Estim Creat Clear Calc Not Performed. eGFR > 60 BUN/Creatinine Ratio 12 Glucose 108 H Calculated Osmolality 296 H Lactic Acid 16.0 H* Calcium 9.8 Corrected Calcium 9.8 Phosphorus 3.3 Magnesium 2.3 Total Bilirubin 0.4 AST 31 ALT 20 Alkaline Phosphatase 120 H Lactate Dehydrogenase 352 H Total Creatine Kinase Troponin I < 0.002 B-Natriuretic Peptide < 20 Total Protein 8.0 Albumin 4.9 Globulin 3.1 Albumin/Globulin Ratio 1.6 Lipase 47 Procalcitonin 0.14 Ur Collection Type Clean Catch Urine Color Yellow Urine Clarity Clear Urine pH 6.0 Ur Specific [place] 1.024 Urine Protein 1+ A Urine Glucose (UA) Negative Urine Ketones Negative Urine Blood Trace Urine Nitrite Negative Urine Bilirubin Negative Urine Urobilinogen (Auto) Negative Ur Leukocyte Esterase Negative Urine RBC 8 H Urine WBC < 1 Ur Squamous Epith Cells 0 Ur Renal Epithelial Cell 6 H Urine Bacteria None Ur Culture Indicated? Not Indicated Coccidioides IgM Ab Influenza A (Rapid) Negative Influenza B (Rapid) Negative 05/08/25 05/08/25 05/08/25 04:50 12:10 16:00 WBC 14.9 H RBC 4.23 L Hgb 12.0 L D Hct 36.4 L MCV 86 MCH 28.4 MCHC 33.0 RDW Std Deviation 44.4 H Plt Count 209 D Neut % (Auto) 58 Lymph % (Auto) 26 [place] % (Auto) 15 H Eos % (Auto) 1 Baso % (Auto) 0 Neut # (Auto) 8.7 H Lymph # (Auto) 3.8 [place] # (Auto) 2.2 H Eos # (Auto) 0.1 Baso # (Auto) 0.1 Immature Gran # (Auto) 0.08 H Absolute Nucleated RBC 0.00 Immature Gran % 1 H Nucleated RBC % 0 PT INR APTT Sodium 146 H Potassium 5.3 H Chloride 110 H Carbon Dioxide 19.1 L Anion Gap 17 H BUN 13 Creatinine 1.0 Estim Creat Clear Calc Not Performed. eGFR > 60 BUN/Creatinine Ratio 13 Glucose 78 Calculated Osmolality 289 Lactic Acid 3.2 H 7.4 H* 1.6 Calcium 8.8 Corrected Calcium 8.8 Phosphorus Magnesium Total Bilirubin 0.4 AST 49 H ALT 21 Alkaline Phosphatase 87 D Lactate Dehydrogenase Total Creatine Kinase 1048 H Troponin I B-Natriuretic Peptide Total Protein 6.5 Albumin 4.0 D Globulin 2.5 Albumin/Globulin Ratio 1.6 Lipase Procalcitonin Ur Collection Type Urine Color Urine Clarity Urine pH Ur Specific [place] Urine Protein Urine Glucose (UA) Urine Ketones Urine Blood Urine Nitrite Urine Bilirubin Urine Urobilinogen (Auto) Ur Leukocyte Esterase Urine RBC Urine WBC Ur Squamous Epith Cells Ur Renal Epithelial Cell Urine Bacteria Ur Culture Indicated? Coccidioides IgM Ab Negative Influenza A (Rapid) Influenza B (Rapid) Quality Measures Quality Measures sepsis Current suspected stage: sepsis Possible source: pulmonary Blood cultures ordered: yes Antibiotic ordered: Yes and none Assessment & Plan Assessment Current Active Medications: Generic Name Dose Route Start Last Admin Trade Name Freq PRN Reason Stop Dose Admin Albuterol/Ipratropium 3 ml 05/08/25 16:13 Albuterol/Ipratropium (Duoneb) Rt Racquel 3 Ml Nebu INH 06/07/25 16:12 Q2HR PRN SHORTNESS OF BREATH OR WHEEZE Haloperidol Lactate 5 mg 05/08/25 14:56 Haloperidol Lact Inj 5 Mg/Ml Vial IV 05/13/25 14:55 Q6HR PRN AGITATION (SEVERE) Ceftriaxone Sodium 2 gm/ 50 mls @ 100 mls/hr 05/08/25 11:20 05/08/25 15:46 Sodium Chloride IV 05/15/25 11:19 100 mls/hr Q12HR KYA Administration Acyclovir Sodium 640 mg/ 112.8 mls @ 98.947 mls/hr 05/08/25 16:00 05/08/25 17:33 Sodium Chloride IV 05/15/25 15:59 98.947 mls/hr Q8HR KYA Administration Ampicillin Sodium 2,000 mg/ 100 mls @ 100 mls/hr 05/08/25 11:22 05/08/25 17:21 Sodium Chloride IV 05/15/25 11:21 Not Given Q4HR KYA Lactated Ringer's 1,000 mls @ 100 mls/hr 05/08/25 11:24 05/08/25 15:47 Lactated Ringers IV 06/07/25 11:23 100 mls/hr .Q10H KYA Administration Acetaminophen 1,000 mg in 100 mls @ 250 mls/hr 05/08/25 11:37 05/08/25 15:16 Ofirmev Inj IV 05/09/25 00:23 250 mls/hr Q6HR PRN Administration Fever > 100.4 Vancomycin/Sodium Chloride 200 mls @ 120 mls/hr 05/08/25 18:00 05/08/25 17:36 Vancomycin/Ns 1 Gm Ivpb IV 05/08/25 19:39 120 mls/hr X1 ONE Administration Protocol Valproic Acid 187.5 mg/ Sodium 51.875 mls @ 51.875 mls/hr 05/08/25 18:00 05/08/25 17:33 Chloride IV 06/07/25 17:59 51.875 mls/hr Q6HR KYA Administration Protocol Levetiracetam 800 mg 05/08/25 21:00 Levetiracetam Inj 100 Mg/Ml Vial 5ml IV 06/07/25 20:59 BID KYA Midazolam HCl 2 mg 05/08/25 10:07 Midazolam Inj 1 Mg/Ml Vial 2 Ml IVP X1 PRN Seizure > 3 mins Ondansetron HCl 4 mg 05/08/25 11:36 Ondansetron Inj 2 Mg/Ml Inj 2 Ml IVP 06/07/25 11:35 Q6HR PRN NAUSEA OR VOMITING Protocol Pharmacy Consult 1 each 05/08/25 11:30 Vancomycin Pharmacy To Dose 1 Each Each IV 06/07/25 11:29 QDAY PRN CONSULT Pharmacy Consult 1 each 05/08/25 16:12 Pharmacy To Consult Patient XX 06/07/25 16:11 PRN PRN CONSULT Plan 24-year-old male patient with PMH of chronic mastoiditis (previously had tympanostomy tube placed for recurrent otitis media, now removed), seizure disorder, recurrent pneumonia, cerebral palsy, chronic PEG tube, and asthma who was brought into ED on 05/08/25 for ongoing fever of over 24 hour duration with reported episode of witnessed seizure episode prior to arrival lasting 5-10 seconds. Patient was admitted for the work-up and management of sepsis without known source of infection but with high concern for meningitis or acute mastoiditis as well as witnessed episodes of seizures. However, due to impending acute respiratory failure today, patient was intubated and transferred to the ICU on 05/09/25. #Acute respiratory failure #s/p intubation on mechanical ventilation A rapid response was called @ 13:28 which lead to ordering a repeat ABG that resulted at 13:40 and revealed: pH 7.27, pCO2 43, pO2 53, HCO3 20. ICU evaluated the patient and noted him to be extremely agitated while on oxygen mask, with audible gurgling sounds coming from the upper airway, which raised concern for potential airway compromise. Given the risk of inadequate airway protection, the decision was made to transfer the patient to the ICU for intubation and further management. #Paraphimosis (worsening) On physical exam, patient was initially noted to have edematous foreskin of the penis on 05/08 which acutely worsened when re-examined on 05/09 Rx: -Urology (Dr. Vargas) has been consulted and patient is planned for reduction of the paraphimosis after being transferred to the ICU #Sepsis, likely 2/2 #Meningitis vs. acute on chronic mastoiditis #Sphenoid ethmoid maxillary antral sinusitis #Acute febrile illness #Leukocytosis Patient meets 4/4 SIRS criteria by the following: Temperature above 100.4 or below 98.6 (105), HR>90 (176), RR>20 or PaCO2<32 (26), WBC above 12 or below 4 (16.3) but no clear source of infection qSOFA rating suggests higher risk for adverse outcomes such as in-hospital mortality due to 2 or more of the following criteria met: SBP<100 (not met), RR 22 or more (met), GCS less than 15 (met) Procalcitonin 0.14 05/08 CXR was negative for pneumonia, 05/08 UA was bland, 05/08 CT CAP was negative for intraabdominal infection, and skin survey did not reveal cellulitis Had suspected that nidus of infection was acute on chronic mastoiditis but this seems less likely now due to lack of acute findings on CT middle ear and head, now mostly suspect either sinusitis or meningitis Dx: -Ordered CT ear mid-inner w/ contrast, showed bilateral chronic mastoiditis, bilateral otitis externa and media, bilateral cholesteatomas, and sphenoid ethmoid maxillary antral sinusitis -Ordered BCx, 2/2 [id number] -Ordered lactate q4HR, LA 16.0 -> 3.2 -> 7.4 -Ordered MRSA nares, results pending -Ordered Cocci serology, negative -Ordered RSV, negative -Considered LP but, per Neurology (Dr. Lang), patient's restlessness would make this a difficult pursuit Rx: -Started ofloxacin ear drops [05/09--] -IV vancomycin dosed by pharmacy [05/08--] -IV Rocephin 2 gm q12HR [05/08--] -IV ampicillin 2 gm q4HR [05/08--] -IV acyclovir 700 mg [05/08--] -Aggressive fluid resuscitation -Isolation precautions -ID consulted, appreciate recommendations -Neurology consulted, appreciate recommendations #Seizure-like activity i/s/o sepsis #Hx of seizure disorders i/s/o cerebral palsy #HyperCKemia Patient was reported to have a brief episode of seizure-like activity of 5-10 second duration prior to arriving in the ED on 05/08 Likely true seizures due to sudden bouts of lactic acidosis with quick resolution (LA 16.0 -> 3.2) and elevated CK (1048) Currently suspect that patient has seizures at baseline that are usually well-controlled with home antiepileptic regimen but are now breaking through due to acute infection Dx: -Ordered EEG awake and drowsy, results pending -Ordered 05/08 valproic acid level, results pending -Lactate as above Rx: -GT Keppra 800 mg BID -GT Depakote 250 mg TID -IV Versed 2 mg prn for breakthrough seizures -Antibiotic treatment of likely inciting etiology (sepsis) as above -Seizure precautions -Aspiration precautions -Neurology consulted, appreciate recommendations #Agitation #Developmental delay i/s/o cerebral palsy #Nonverbal i/s/o cerebral palsy Patient seems to be uncomfortable and is uncooperative and noted to be actively flailing Differentials include: 2/2 meningitis, acute on chronic mastoiditis, delirium, post-ictal confusion, drug-induced akathisia 05/08, s/p IM Benadryl 12.5 mg x 1 and IV Benadryl 12.5 mg x 1 s/p IM Haldol 2 mg x 1, IV Haldol 2.5 mg x 1 s/p IM Versed 2 mg x 1, IV Versed 2 mg x 2 Rx: -IV Versed 2 mg x 1 prn for breakthrough agitation, use first before resorting to Haldol due to patient's concurrent risk for seizures -IV Haldol 5 mg q6HR prn for breakthrough agitation -Treat underlying conditions that may contribute to discomfort #VITALIY, likely prerenal 2/2 #Sepsis Creatinine 1.3 (baseline: 0.7), eGFR > 60 Rx: -Aggressive fluid resuscitation -Monitor renal panel -Avoid nephrotoxic agents (aminoglycosides, NSAIDs, radiographic contrast) -Adjust medication dosing based on patient's impaired renal function -Hold any YVON/ARB/diuretics #HAGMA #Lactic acidosis i/s/o seizure-like activity and sepsis Admission anion gap 22, lactic acid 16.0, bicarbonate 18.7 Main contributor of acidemia is likely from seizures as patient does not seem to have skin mottling or overt shock leading to systemic hypoperfusion Dx: -Lactate as above Rx: -Treat underlying cause (seizure disorder and sepsis) #Electrolyte derangements #Hypernatremia #Hyperkalemia Admission sodium 148, potassium 5.2 Rx: -Correct as appropriate Hospital Management: Disposition: due to impending acute respiratory failure today, patient was intubated and transferred to the ICU Diet: NPO GI Prophylaxis: Not Indicated Bowel Prophylaxis: Senna DVT Prophylaxis: None CODE STATUS: Full Code I have examined the patient and conferred with my attending, Dr. Camp, and my senior resident, Dr. Henson, regarding them. 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 Patient is agitated restless was given diazepam during MEDICAL ADMINISTRATOR this morning. Patient also noted to have rash on her gluteal area. He has paraphimosis. He has a catheter. Urology was consulted. Blood cultures are pending. He is on antibiotic and antiviral treatment patient will receive additional dose of diazepam. Discussed with housestaff. The patient will be monitored very carefully.
[2025-05-08] MEDS: levETIRAcetam INJ 100 MG/ML VIAL 5ML 800 MG IV (20:27)
--- NOTE | 2025-05-08 23:12 | RESP.EEG ---
EEG attempt: EEG unable to be completed at this time. Patient unable to remain still. MD López and RN notified.
[2025-05-09] VITALS (52 sets, daily range): BP systolic 85–145; BP diastolic 35–100; PULSE 83–166; RESP 20–37; TEMP 36.1–39.2; O2SAT 85–100; BMI 29.4
[2025-05-09] MEDS: Ampicillin Inj 2,000 MG in SODIUM CHLORIDE 0.9% (POP) 100 ML 100 MG IV ×4 (01:34→13:37)
[2025-05-09] MEDS: MIDAZOLAM INJ 1 MG/ML VIAL 2 ML 2 MG IVP ×2 (01:37→05:42)
[2025-05-09] MEDS: ACETAMINOPHEN 325 MG TABLET 650 MG PO (02:59)
[2025-05-09] MEDS: RINGERS LACTATED 1000 ML 1,000 ML 100 ML IV ×2 (03:18→14:32)
[2025-05-09] MEDS: DIAZEPAM INJ 5 MG/ML VIAL 2 ML 2 MG IVP (04:27)
[2025-05-09] MEDS: ACYCLOVIR INJ 640 MG in SODIUM CHLORIDE 0.9% 100 ML 98.947 MG IV ×3 (05:23→21:31)
[2025-05-09 06:59] LABS: Basophils # (Auto) 0.0 Thou/mm3 (0.0-0.2); Basophils % (Auto) 0 % (0-2.5); Eosinophils # (Auto) 0.0 Thou/mm3 (0.0-0.5); Eosinophils % (Auto) 0 % (0-10); Hematocrit 31.8 % (41.0-53.0); Hemoglobin 10.5 g/dL (13.5-16.0); Immature Granulocytes Auto 0.02 Thou/mm3 (0.00-0.00); Lymphocytes # (Auto) 2.3 Thou/mm3 (1.0-4.8); Lymphocytes % (Auto) 22 % (10-50); Mean Corpuscular HGB Conc 33.0 g/dl (31.0-37.0); Mean Corpuscular Hemoglobin 28.2 pg (25.0-35.0); Mean Corpuscular Volume 86 fL (80-100); Monocytes # (Auto) 2.0 Thou/mm3 (0.0-0.8); Monocytes % (Auto) 19 % (0-12); Neutrophils # (Auto) 6.3 Thou/mm3 (1.8-7.7); Neutrophils % (Auto) 59 % (37-80); Nucleated Red Blood Cell # 0.00 Thou/mm3 (0.00-0.00); Nucleated Red Blood Cell % 0 /100 WBC (0); Platelet Count 167 Thou/mm3 (140-440); RDW Standard Deviation 43.3 fL (35.1-43.9); Red Blood Count 3.72 Miln/mm3 (4.50-5.90); White Blood Count 10.8 Thou/mm3 (3.8-10.6)
[2025-05-09 07:16] LABS: Alanine Aminotransferase 37 U/L (10-49); Albumin, Serum 3.8 gm/dL (3.5-5.0); Albumin/Globulin Ratio 1.6 (1.2-2.2); Alkaline Phosphatase 77 U/L (46-116); Anion Gap 13 (7-16); Aspartate Amino Transferase 106 U/L (0-34); BUN/Creatinine Ratio 11 Ratio (12-20); Bilirubin,Total 0.5 mg/dL (0.3-1.2); Blood Urea Nitrogen 11 mg/dL (9-23); Calcium 9.0 mg/dL (8.3-10.6); Calcium (Corrected) 9.2 mg/dL (8.5-10.1); Carbon Dioxide 24.9 mMol/L (20.0-31.0); Chloride 104 mMol/L (98-107); Creatinine (Component) 1.0 mg/dL (0.6-1.3); Estimated Creatinine Clearance 92.3 mL/min (>60); Globulin 2.4 gm/dL (2.3-3.5); Glucose 77 mg/dL (74-106); Magnesium 1.5 mg/dL (1.6-2.6); Osmolality,Calculated 281 (275-295); Phosphorous 3.0 mg/dL (2.4-5.1); Potassium 3.8 mMol/L (3.4-5.1); Sodium 142 mMol/L (136-145); Total Protein 6.2 gm/dL (5.7-8.2); eGFR > 60 See Note
[2025-05-09] MEDS: HALOPERIDOL LACT INJ 5 MG/ML VIAL IV (07:20)
--- NOTE | 2025-05-09 08:06 | CHAP ---
Responded to Rapid Response. All was well, No need for applied behavior science specialist. (08:06)
[2025-05-09] MEDS: DIAZEPAM INJ 5 MG/ML VIAL 2 ML IVP (08:11)
[2025-05-09] MEDS: cefTRIAXone 2 GM in SODIUM CHLORIDE 0.9% (Popper) 50 ML IV ×2 (09:11→21:30)
[2025-05-09] MEDS: Magnesium Sulfate 2 GM Ivpb 2 GM/50 ML BAG IV (09:12)
[2025-05-09] MEDS: levETIRAcetam INJ 100 MG/ML VIAL 5ML 800 MG IV ×2 (09:12→21:30)
[2025-05-09] MEDS: MORPHINE SULF INJ 4 MG/ML VIAL 2 MG IVP (09:30)
[2025-05-09] MEDS: VANCOMYCIN/NS 1 GM IVPB 200 ML IV ×2 (10:07→14:47)
--- NOTE | 2025-05-09 10:42 | ESCONSULT_ITS ---
<Statement entered by John Rubio MD - 05/13/25 08:44> pt seen with resident. all findings confirmed. see additonal notes for details HPI Data of Consult Requesting Physician: Natasha Moreira MD Admitting Provider: Natasha Moreira MD Attending Provider: Natasha Moreira MD Primary Care Provider: Tavares Cole MD Consult Narrative Reason for consult: acute on chronic mastoiditis History of present illness: Mr. Baltazar is a 24-year-old male with past medical history significant for chronic mastoiditis status post removal of tympanostomy tube for recurrent otitis media, seizure disorder, recurrent pneumonia, cerebral palsy, chronic PEG tube, asthma who came into the ER on 05/08/2025 for ongoing fever spikes in the course of 1 day as well as a witnessed seizure episode lasting about 5 to 10 seconds. Patient was admitted for further workup. ID was consulted for further management of possible meningitis versus acute on chronic mastoiditis. ID was consulted for further management. Most of patient's history was obtained from chart review. cc:: cc: Natasha Moreira MD Review of Systems Review of Systems Systems Reviewed: All systems reviewed, normal except as documented Exam Vital Signs Temp Pulse Resp BP Pulse Ox O2 Del Method O2 Flow Rate 97.3 F 126 H 26 H 142/79 H 92 L Oxy Mask 10 05/09/25 08:05 05/09/25 08:05 05/09/25 08:05 05/09/25 08:05 05/09/25 08:05 05/09/25 08:00 05/09/25 08:05 Narrative Exam General Appearance: Pt appears to be restless, in mild distress on high flow nasal cannula. HEENT: NC/AT, no scleral icterus Lungs: Coarse breath sounds. CVS: RRR, S1/S2 heard, no murmurs or rubs appreciated ABD: Soft, non-tender, non-distended, BS + in all 4 quadrants EXT: no deformity/edema/lesions/cyanosis/clubbing, radial pulses 2+ BL, DP pulses 2 + BL SKIN: Skin exam normal without any rashes except for gluteal area. Neuro:Alert. Extremities are contracted, and unable to assess mentation d/t patient's mental condition. Psych: Appropriate mood and affect Results Labs 05/12/25 04:15 05/12/25 04:15 Labs: Short CBC 05/08/25 05/09/25 Range/Units 12:10 05:17 WBC 14.9 H 10.8 H (3.8-10.6) Thou/mm3 Hgb 12.0 L D 10.5 L (13.5-16.0) g/dL Hct 36.4 L 31.8 L (41.0-53.0) % Plt Count 209 D 167 D (140-440) Thou/mm3 BMP 05/08/25 05/09/25 12:10 05:17 Sodium 146 H 142 Potassium 5.3 H 3.8 D Chloride 110 H 104 Carbon Dioxide 19.1 L 24.9 BUN 13 11 Creatinine 1.0 1.0 Glucose 78 77 Calcium 8.8 9.0 Cardiac Enzymes 05/08/25 Range/Units 12:10 Total Creatine Kinase 1048 H (34-171) U/L Liver Function 05/08/25 05/09/25 Range/Units 12:10 05:17 Total Bilirubin 0.4 0.5 (0.3-1.2) mg/dL AST 49 H 106 H (0-34) U/L ALT 21 37 (10-49) U/L Alkaline Phosphatase 87 D 77 (46-116) U/L Albumin 4.0 D 3.8 (3.5-5.0) gm/dL Quality Measures Quality Measures sepsis Current suspected stage: sepsis Possible source: pulmonary Blood cultures ordered: yes Antibiotic ordered: Yes and none Medications Home Medications and Allergies Home Medications ?Medication ?Instructions ?Recorded ?Confirmed ?Type acetaminophen 160 mg/5 mL oral 650 mg feeding tube Q4H R PRN fever 01/16/21 05/08/25 History liquid or pain ascorbic acid (vitamin C) 1,000 mg 1 g feeding tube QD AY 01/16/21 05/08/25 History tablet (Vitamin C) fluticasone propionate 50 1 spray intranasal BID 01/1605/08/25 History mcg/actuation nasal spray,suspension ofloxacin 0.3 % ear drops in a 5 drp otic (ear) BID 05/08/25 History dropperette ciprofloxacin 0.3 %-dexamethasone 4 drp otic (ear) BID 03/06/21 05/08/25 History 0.1 % ear drops,suspension (Ciprodex) omeprazole 20 mg capsule,delayed 20 mg feeding tube DA BOB 09/27/23 05/08/25 History release levetiracetam 100 mg/mL oral 100 mg feeding tube BID 1 05/08/25 History solution montelukast 10 mg tablet 10 mg feeding tube DAILY 07/2005/08/25 History quetiapine 100 mg tablet 100 mg feeding tube HS 05/0805/08/25 History quetiapine 50 mg tablet 50 mg feeding tube QAM 05/0805/08/25 History Allergies Allergy/AdvReac Type Severity Reaction Status Date / Time valbenazine (From Ingrezza) Allergy Severe Agitated Verified 11/02/23 00:43 Sulfa (Sulfonamide Allergy Intermediate Rash Verified 11/02/23 00:43 Antibiotics) glycopyrrolate Allergy Rash Verified 11/02/23 00:43 haloperidol Allergy Rash Verified 11/02/23 00:43 sulfamethoxazole (From Allergy Rash Verified 11/02/23 00:43 Bactrim) trimethoprim (From Bactrim) Allergy Rash Verified 11/02/23 00:43 Visit Medications Albuterol/Ipratropium (Albuterol/Ipratropium (Duoneb) Rt Racquel 3 Ml Nebu) 3 ml INH Q2HR PRN PRN Reason: SHORTNESS OF BREATH OR WHEEZE Stop: 06/07/25 16:12 Diazepam (Diazepam Inj 5 Mg/Ml Vial 2 Ml) 5 mg IVP X1 PRN PRN Reason: AGITATION (MILD) Haloperidol Lactate (Haloperidol Lact Inj 5 Mg/Ml Vial) 5 mg IV Q6HR PRN On Hold: 05/09/25 07:54 PRN Reason: AGITATION (SEVERE) Stop: 05/13/25 14:55 Last Admin: 05/09/25 07:20 Dose: 5 mg Ceftriaxone Sodium 2 gm/ (Sodium Chloride) 50 mls @ 100 mls/hr IV Q12HR [facility] Stop: 05/15/25 11:19 Last Admin: 05/09/25 09:11 Dose: 100 mls/hr Acyclovir Sodium 640 mg/ (Sodium Chloride) 112.8 mls @ 98.947 mls/hr IV Q8HR [facility] Stop: 05/15/25 15:59 Last Admin: 05/09/25 05:23 Dose: 98.947 mls/hr Ampicillin Sodium 2,000 mg/ (Sodium Chloride) 100 mls @ 100 mls/hr IV Q4HR [facility] Stop: 05/15/25 11:21 Last Admin: 05/09/25 10:20 Dose: 100 mls/hr Lactated Ringer's (Lactated Ringers) 1,000 mls @ 100 mls/hr IV .Q10H [facility] Stop: 06/07/25 11:23 Last Admin: 05/09/25 03:18 Dose: 100 mls/hr Valproic Acid 187.5 mg/ Sodium (Chloride) 51.875 mls @ 51.875 mls/hr IV Q6HR [facility]; Protocol Stop: 06/07/25 17:59 Last Admin: 05/09/25 05:23 Dose: 51.875 mls/hr Acetaminophen (Ofirmev Inj) 1,000 mg in 100 mls @ 250 mls/hr IV Q6HR PRN PRN Reason: Temp > 100 Stop: 05/10/25 00:23 Vancomycin/Sodium Chloride (Vancomycin/Ns 1 Gm Ivpb) 200 mls @ 120 mls/hr IV Q8HR KYA; Protocol Stop: 05/16/25 08:14 Last Admin: 05/09/25 10:07 Dose: 120 mls/hr Levetiracetam (Levetiracetam Inj 100 Mg/Ml Vial 5ml) 800 mg IV BID [facility] Stop: 06/07/25 20:59 Last Admin: 05/09/25 09:12 Dose: 800 mg Morphine Sulfate (Morphine Sulf Inj 4 Mg/Ml Vial) 2 mg IVP Q6HR PRN PRN Reason: PAIN SCALE 4-10(Mod-Sev Stop: 05/14/25 08:33 Last Admin: 05/09/25 09:30 Dose: 2 mg Ofloxacin (Ofloxacin Op Racquel 0.3% 5 Ml Btl) 5 drop BOTH EARS BID [facility] Stop: 05/18/25 10:14 Ondansetron HCl (Ondansetron Inj 2 Mg/Ml Inj 2 Ml) 4 mg IVP Q6HR PRN; Protocol PRN Reason: NAUSEA OR VOMITING Stop: 06/07/25 11:35 Pharmacy Consult (Vancomycin Pharmacy To Dose 1 Each Each) 1 each IV QDAY PRN PRN Reason: CONSULT Stop: 06/07/25 11:29 Pharmacy Consult (Pharmacy To Consult Patient) 1 each XX PRN PRN PRN Reason: CONSULT Stop: 06/07/25 16:11 Discontinued Medications Acetaminophen (Acetaminophen Supp 650 Mg Supp) 975 mg IA X1 ONE Stop: 05/08/25 01:03 Last Admin: 05/08/25 01:27 Dose: 975 mg Acetaminophen (Acetaminophen 325 Mg Tablet) 650 mg PO X1 ONE Stop: 05/09/25 02:53 Last Admin: 05/09/25 02:59 Dose: 650 mg Albuterol (Albuterol Rt 2.5 Mg/3 Ml Nebu) 2.5 mg INH X1 ONE Stop: 05/08/25 04:02 Last Admin: 05/08/25 04:13 Dose: 2.5 mg Diazepam (Diazepam Inj 5 Mg/Ml Vial 2 Ml) 2 mg IVP X1 ONE Stop: 05/09/25 04:10 Last Admin: 05/09/25 04:27 Dose: 2 mg Diazepam (Diazepam Inj 5 Mg/Ml Vial 2 Ml) 5 mg IVP X1 PRN PRN Reason: Prior to CT Scan Stop: 05/14/25 07:54 Diazepam (Diazepam Inj 5 Mg/Ml Vial 2 Ml) 5 mg IVP X1 ONE Stop: 05/09/25 08:07 Last Admin: 05/09/25 08:11 Dose: 5 mg Diphenhydramine HCl (Diphenhydramine Inj 50 Mg/Ml Vial) 12.5 mg IM X1 ONE Stop: 05/08/25 13:16 Last Admin: 05/08/25 13:31 Dose: 12.5 mg Diphenhydramine HCl (Diphenhydramine Inj 50 Mg/Ml Vial) 25 mg IVP X1 ONE Stop: 05/08/25 14:45 Last Admin: 05/08/25 14:58 Dose: 25 mg Diphenhydramine HCl (Diphenhydramine Inj 50 Mg/Ml Vial) 25 mg IVP X1 ONE Stop: 05/08/25 15:31 Last Admin: 05/08/25 15:42 Dose: 25 mg Haloperidol Lactate (Haloperidol Lact Inj 5 Mg/Ml Vial) 2 mg IM X1 ONE Stop: 05/08/25 13:15 Last Admin: 05/08/25 13:30 Dose: 2 mg Haloperidol Lactate (Haloperidol Lact Inj 5 Mg/Ml Vial) 2.5 mg IV X1 ONE Stop: 05/08/25 14:47 Last Admin: 05/08/25 15:01 Dose: 2.5 mg Hydrocortisone Sodium Succinate (Hydrocortisone Sod Succ Inj 100 Mg 2 Ml Vial) 100 mg IV X1 ONE Stop: 05/08/25 16:14 Last Admin: 05/08/25 16:32 Dose: 100 mg Sodium Chloride (Ns) 1,908 mls @ 1,908 mls/hr 30 ml/kg infuse over 60 min (1908 ml) IV .Q1H ONE; Protocol Stop: 05/08/25 01:55 Last Infusion: 05/08/25 04:00 Dose: Infused Ceftriaxone Sodium/Dextrose (Rocephin/D5w 1gm Iv Premix) 1 gm in 50 mls @ 100 mls/hr IV X1 ONE Stop: 05/08/25 01:40 Last Infusion: 05/08/25 02:29 Dose: Infused Lactated Ringer's (Lactated Ringers) 1,000 mls @ 999 mls/hr IV .Q1H1M ONE Stop: 05/08/25 05:21 Last Infusion: 05/08/25 06:22 Dose: Infused Piperacillin/Tazobactam/Dextrose (Zosyn) 3.375 gm in 50 mls @ 100 mls/hr IV X1 ONE; Protocol Stop: 05/08/25 05:06 Last Infusion: 05/08/25 05:37 Dose: Infused Lactated Ringer's (Lactated Ringers) 1,000 mls @ 999 mls/hr IV .Q1H1M ONE Stop: 05/08/25 12:23 Last Admin: 05/08/25 15:06 Dose: 999 mls/hr Acetaminophen (Ofirmev Inj) 1,000 mg in 100 mls @ 250 mls/hr IV Q6HR PRN PRN Reason: Fever > 100.4 Stop: 05/09/25 00:23 Last Admin: 05/08/25 15:16 Dose: 250 mls/hr Vancomycin/Sodium Chloride (Vancomycin/Ns 1 Gm Ivpb) 200 mls @ 120 mls/hr IV X1 ONE; Protocol Stop: 05/08/25 19:39 Last Admin: 05/08/25 17:36 Dose: 120 mls/hr Lactated Ringer's (Lactated Ringers) 1,000 mls @ 999 mls/hr IV .Q1H1M ONE Stop: 05/08/25 17:20 Last Admin: 05/08/25 17:33 Dose: 999 mls/hr Magnesium Sulfate (Magnesium Sulfate Ivpb) 2 gm in 50 mls @ 25 mls/hr IV X1 ONE Stop: 05/09/25 09:48 Last Admin: 05/09/25 09:12 Dose: 25 mls/hr Levetiracetam (Levetiracetam Liqd 500 Mg/5 Ml Udc) 800 mg GT BID KYA Stop: 06/07/25 10:29 Last Admin: 05/08/25 13:47 Dose: 800 mg Levetiracetam (Levetiracetam Liqd 500 Mg/5 Ml Udc) 800 mg GT X1 ONE Stop: 05/08/25 15:40 Last Admin: 05/08/25 17:48 Dose: 800 mg Lorazepam (Lorazepam 2 Mg/Ml Vial) 2 mg IVP X1 ONE Stop: 05/08/25 14:45 Last Admin: 05/08/25 17:37 Dose: Not Given Midazolam HCl (Midazolam Inj 1 Mg/Ml Vial 2 Ml) 2 mg IVP X1 ONE Stop: 05/08/25 01:35 Last Admin: 05/08/25 01:46 Dose: 2 mg Midazolam HCl (Midazolam Inj 1 Mg/Ml Vial 2 Ml) 2 mg IVP X1 PRN PRN Reason: Seizure > 3 mins Midazolam HCl (Midazolam Inj 1 Mg/Ml Vial 2 Ml) 2 mg IM X1 ONE Stop: 05/08/25 11:53 Last Admin: 05/08/25 12:38 Dose: 2 mg Midazolam HCl (Midazolam Inj 1 Mg/Ml Vial 2 Ml) 2 mg IVP X1 ONE Stop: 05/08/25 14:55 Last Admin: 05/08/25 15:03 Dose: 2 mg Midazolam HCl (Midazolam Inj 1 Mg/Ml Vial 2 Ml) 2 mg IVP X1 ONE Stop: 05/08/25 15:31 Last Admin: 05/08/25 16:25 Dose: 2 mg Midazolam HCl (Midazolam Inj 1 Mg/Ml Vial 2 Ml) 5 mg IVP X1 ONE Stop: 05/08/25 16:20 Last Admin: 05/08/25 17:26 Dose: Not Given Midazolam HCl (Midazolam Inj 1 Mg/Ml Vial 2 Ml) 2 mg IVP X1 ONE Stop: 05/08/25 16:01 Last Admin: 05/08/25 16:00 Dose: 2 mg Midazolam HCl (Midazolam Inj 1 Mg/Ml Vial 2 Ml) 2 mg IVP X1 PRN PRN Reason: AGITATION (SEVERE) Last Admin: 05/09/25 01:37 Dose: 2 mg Midazolam HCl (Midazolam Inj 1 Mg/Ml Vial 2 Ml) 2 mg IVP X1 ONE Stop: 05/08/25 20:10 Last Admin: 05/08/25 20:26 Dose: 2 mg Midazolam HCl (Midazolam Inj 1 Mg/Ml Vial 2 Ml) 2 mg IVP X1 ONE Stop: 05/09/25 05:31 Last Admin: 05/09/25 05:42 Dose: 2 mg Valproic Acid (Valproic Acid Syrup 250 Mg/5 Ml Udc) 250 mg GT TID KYA Stop: 06/07/25 13:59 Last Admin: 05/08/25 15:39 Dose: 250 mg Valproic Acid (Valproic Acid Syrup 250 Mg/5 Ml Udc) 250 mg GT X1 ONE Stop: 05/08/25 15:40 Last Admin: 05/08/25 15:40 Dose: 250 mg Assessment & Plan Plan Mr. Baltazar is a 24-year-old male with past medical history significant for chronic mastoiditis status post removal of tympanostomy tube for recurrent otitis media, seizure disorder, recurrent pneumonia, cerebral palsy, chronic PEG tube, asthma who came into the ER on 05/08/2025 for ongoing fever spikes in the course of 1 day as well as a witnessed seizure episode lasting about 5 to 10 seconds. ID was consulted for further management. #Acute on chronic mastoiditis #Rule out meningitis In the setting of sepsis Patient presented with high fever of 105 ?F, white count elevation as well as tachycardic and tachypneic. CT orbit sella showed bilateral otitis externa and media as well as reduced mastoid aeration on the left side. Patient was started on IV vancomycin, ceftriaxone, ampicillin, and acyclovir for meningitis. Will order a viral panel to rule out viral causes. Will recommend LP to be performed in the setting of ruling out meningitis. #Tonic-clonic seizure #Cerebral palsy #History of seizures #Paraphimosis #VITALIY #Anion gap metabolic acidosis #Elevated total creatinine kinase #Normocytic anemia -Treatment as per primary team Patient's plan and care discussed with my attending, Dr. Ramiro Lang MD PGY-3
--- NOTE | 2025-05-09 10:57 | XR_ITS ---
EXAMINATION: AP chest single view TECHNIQUE: AP portable semiupright chest single view Date and time: May 09, 2025, 1303 hours, comparison May 08, 2025 INDICATIONS: Hypoxia today. FINDINGS: Bilateral perihilar pneumonia. Normal heart size Reduced inspiratory effort IMPRESSION: Bilateral perihilar pneumonia
[2025-05-09] MEDS: DIAZEPAM INJ 5 MG/ML VIAL 2 ML 2 MG IV (11:14)
[2025-05-09] MEDS: ACETAMINOPHEN IVPB 1,000 MG/100 ML VIAL 250 MG IV (11:16)
[2025-05-09] MEDS: OFLOXACIN OP SOL 0.3% 5 ML BTL 5 DROP BOTH EARS ×2 (11:20→21:31)
[2025-05-09 12:06] LABS: Base Excess 0 (-3-3); HCO3 25 mEq/L (20-26); Inspired O2, VO2 Liters 8 L/min; Inspired Oxygen, FIO2 21 %; O2 Saturation 99 % (91-98); PCO2 40 mmHg (32.0-48.0); PO2 131 mmHg (83-108); pH, Arterial 7.40 (7.35-7.45)
[2025-05-09 12:10] LABS: Allen Test Performed/OK; Puncture Site Left Radial
--- NOTE | 2025-05-09 12:57 | ESCONSULT_ITS ---
RE: CATARINA CARREON : 2000 DATE OF CONSULTATION: 05/09/2025 REFERRING PHYSICIAN: Dr. Moreira. REASON FOR CONSULTATION: Apparent viral syndrome with recurrent seizures in a 24-year-old with developmental delay. HISTORY OF PRESENT ILLNESS: The patient is unable to offer any history as it was obtained from the records. His medical problems include seizure disorder and chronic mastoiditis by record and imaging. He is on empiric antibiotics. Repeat spinal tap does not seem necessary as all cultures are negative so far. If culture positive, he may need an LP to verify this, but I am going to get a viral panel because there seems to be a predelection for a viral syndrome noted here. The patient is unable to offer any history so we will hope hopefully the viral panel will come [place] from the county by the time we get some answers which may be by Friday or . I will check on him on Friday. DT: 11:37:52 TT: 11:46:00 Ref: [id number] - TID: [id number] MTD
[2025-05-09] MEDS: HYDROmorphone INJ 2 MG/ML VIAL 1 MG IVP ×2 (13:36→14:47)
[2025-05-09 13:52] LABS: Base Excess -7 (-3-3); HCO3 20 mEq/L (20-26); Inspired O2, VO2 Liters 10 L/min; O2 Saturation 81 % (91-98); PCO2 43 mmHg (32.0-48.0); pH, Arterial 7.27 (7.35-7.45)
[2025-05-09 13:58] LABS: Allen Test Performed/OK; PO2 53 mmHg (83-108); Puncture Site Right Radial
--- NOTE | 2025-05-09 14:00 | XR_ITS ---
Examination: Abdomen AP single view Technique: AP portable supine abdomen, single view Exam date and time: May 09, 2025, 1433 hours, comparison October 05, 2023 INDICATIONS: Abdominal distention today FINDINGS: Gastrostomy tube overlies the stomach Air in nondistended colon No bowel obstruction No free air IMPRESSION: Negative for bowel obstruction
--- NOTE | 2025-05-09 14:23 | PC.SS ---
Update: Possibly will be moved to ICU, pending Urology Consult. Patient will discharge home when medically cleared.
[2025-05-09 14:40] LABS: Cocci Serology, IgG Negative (Negative)
--- NOTE | 2025-05-09 15:19 | PC.SS ---
AUTISM TEACHER conducted bedside contact with the patient conduct initial assessment and to discuss discharge planning.? At bedside with patient was mother, Aruna Baltazar .? Information obtained from the patient?s mother.? Patient possesses a history of cerebral palsy.? Patient is in possession of a PEG tube.? Patient is aligned with [facility].? Patient possesses case management services.? Patient is non-ambulatory utilizes a wheelchair to assist with mobility.? Patient utilizes home oxygen.? Patient requires assistance with the completion of ADL?s.? Patient?s medical decision maker is mother, Aruna Baltazar.? Patient?s PCP is [facility].? Patient utilizes [facility] for medication services.? Patient?s family provides transport services for the patient to attend appointments.? Mother reports possessing 30 hours a month of respite services via [facility].? Patient is not conserved.? Plan is for the patient to return home at the time of discharge.? Family will provide transportation on behalf of the patient.? No further discharge needs identified by the patient.? No further intervention required at this time, director social will be available to address any further concerns.? Next of Kin: Aruna Baltazar D/C Plan: Home
--- NOTE | 2025-05-09 15:30 | PC.NURSE ---
unstable admission to ICU. Multiple interventions and meds required. Multiple titrations required to sedate pt and synch with vent. Complex family dynamics.
[2025-05-09] MEDS: fentaNYL CIT INJ 50 mCg/ML AMP 2ML 100 MCG IVP (15:48)
[2025-05-09] MEDS: MIDAZOLAM INJ 1 MG/ML VIAL 2 ML 6 MG IVP (15:50)
[2025-05-09] MEDS: PROPOFOL 1,000 MG IVPB 1,000 MG/100 ML VIAL 2.048 MG IV (16:00)
--- NOTE | 2025-05-09 16:01 | XR_ITS ---
EXAMINATION: AP chest single view TECHNIQUE: AP portable supine chest single view Date and time: May 09, 2025, 1612 hours, comparison May 09, 2025 INDICATIONS: Hypoxic respiratory failure FINDINGS: Normal heart size Bilateral perihilar pneumonia Tracheal tube tip 3.8 cm above haresh IMPRESSION: Bilateral perihilar pneumonia Endotracheal tube tip satisfactory position
[2025-05-09] MEDS: fentaNYL 2,500 MCG/250 ML BAG 2,500 MCG/250 ML BAG IV (16:05)
--- NOTE | 2025-05-09 16:20 | ESOP_ITS ---
PROCEDURES: Procedure Date / Time 05/09/25 1620 Procedure Narrative Procedure Narrative: Attending Attestation: Patient tolerated procedure well. Desaturation prior to intubation. Delayed sequence done without paralysis. Bagged to 90% prior to first attempt, successful with glidescope. Desaturation into high 70s briefly. Patient remained hemodynamically stable throughout. Chest film confirmed adequate placement after advancing to position. Intubation Indication(s): acute Resp Failure Informed consent obtained: obtained from surrogate decision maker and procedure done urgently Sedative: versed Mg given: 6 Sedative #2: fentanyl Mg Given (sedative #2): 100 Laryngoscope: fiber optic video scope Assist device used: fiber optic device ET tube size: 7.5 ET tube uncuffed: Yes Tube secured depth (cm): 23 Tube secured location: teeth Tube placement confirmation: visualized tube passing through cords, equal breath sounds bilaterally, no breath sounds over epigastrium and confirmation by capnometry Patient tolerated procedure: well and no complications EBL(ml): 5 Intubation complications: none Additional comments: The patient required endotracheal intubation. The patient was given Midaz olam?6mg and Fentanyl?100 mcg. Once the patient was adequately sedated and paralyzed, a?Mac 4?laryngoscope was used to directly visualize the cords. Using this direct visualization, a?7.5?endotracheal tube was then passed easily through the cords.This tube was inserted to?23 cm?at the lip.There was excellent color change on the end-tidal CO2 monitor. The patient was easily and adequately ventilated. There were appreciable breath sounds bilaterally with no breath sounds heard over the epigastrium. The tube was secured in the standard fashion. The patient tolerated this procedure well and there were no complications. Post-intubation chest x-ray demonstrates endotracheal tube placement at right position.
[2025-05-09 16:36] LABS: Lactate (Lactic Acid) 1.3 mMol/L (0.4-2.0)
[2025-05-09 16:38] LABS: Respiratory Syncytial Virus Ag Negative (Negative)
--- NOTE | 2025-05-09 16:42 | PD.RESCONSUL ---
HPI Data of Consult Requesting Physician: Leroy Camp MD Admitting Provider: Natasha Moreira MD Attending Provider: Leroy Camp MD Primary Care Provider: Tavares Cole MD Consult Narrative Reason for consult: rule out meningitis History of present illness: aDvid Baltazar is 24 yr male with PMH of chronic mastoiditis (previously had tympanostomy tube placed for recurrent otitis media, now removed), seizure disorder, recurrent pneumonia, cerebral palsy, chronic PEG tube, and asthma who was brought into ED on 05/08/25 for ongoing fever of over 24 hours and reported episode of witnessed seizure by ED. Episode lasted 5-10 seconds. Per ED note, patient's seizures are apparently characterized by tonic-clonic activity of the left side of the body only. On admission he was noted to have fever of 105, leukocytosis 16, tachycardia 176, and tachypnic 26. CT orbit sella showed b/L otitis externa and media. Reduced mastoid aeration on the left, b/L chlestatomas. He was started on vancomycin, ceftriaxone 2g BID, ampicillin 2g q4hr, and acyclovir. Neurology was consulted to rule out possible meningitis. Last LP culture from 2023 was negative. Plan for LP if if patient spikes another temperature within next 24 hrs. Ap[pears to be resolving with most recent temp at 98.3. EEG read is pending, started on Keppra 800mg BID, and IV Depakote 187mg q6hr. Patient is requiring ICU level of care for sedation and intubation. Family was at bedside and updated on care plan. cc:: cc: Leroy Camp MD Review of Systems Review of Systems ROS Unobtainable: unobtainable due to mental status and unobtainable due to medical condition Exam Vital Signs Temp Pulse Resp BP Pulse Ox O2 Del Method O2 Flow Rate 99.5 F 106 H 25 H 110/66 92 L Oxy Mask 9 05/09/25 13:28 05/09/25 16:15 05/09/25 13:28 05/09/25 16:15 05/09/25 16:15 05/09/25 12:00 05/09/25 13:28 FiO2 50 05/09/25 16:15 Narrative Exam General: sedated, intubated, on MV HEENT: NCAT, No JVD noted. Mucosa moist. pinpoint Pupils are equal and reactive to light bilaterally Cardiovascular: Normal S1 and S2. Regular rate and rhythm. Respiratory: Lungs are clear to auscultation bilaterally. No wheezing or crackles heard. Abdomen: Soft, nontender, not distended, normal bowel sounds. PEG tube in place : Paraphimosis of penis. Osborne inserted with red tinged urine Musculoskeletal: no pitting edema, muscle atrophy, Feet show fixed contractures with inward curvature. Spastic Neuro:deferred Results Labs 05/11/25 05:07 05/11/25 05:07 Labs: Short CBC 05/09/25 Range/Units 05:17 WBC 10.8 H (3.8-10.6) Thou/mm3 Hgb 10.5 L (13.5-16.0) g/dL Hct 31.8 L (41.0-53.0) % Plt Count 167 D (140-440) Thou/mm3 BMP 05/09/25 05:17 Sodium 142 Potassium 3.8 D Chloride 104 Carbon Dioxide 24.9 BUN 11 Creatinine 1.0 Glucose 77 Calcium 9.0 Liver Function 05/09/25 Range/Units 05:17 Total Bilirubin 0.5 (0.3-1.2) mg/dL AST 106 H (0-34) U/L ALT 37 (10-49) U/L Alkaline Phosphatase 77 (46-116) U/L Albumin 3.8 (3.5-5.0) gm/dL ABG Interpretation ABG results: 05/09/25 05/09/25 11:56 13:40 ABG pH 7.40 7.27 L D ABG pCO2 40 43 ABG pO2 131 H 53 L* D ABG HCO3 25 20 ABG O2 Saturation 99 H 81 L ABG Base Excess 0 -7 L Quality Measures Quality Measures sepsis Current suspected stage: sepsis Possible source: pulmonary Blood cultures ordered: yes Antibiotic ordered: Yes and none Medications Home Medications and Allergies Home Medications ?Medication ?Instructions ?Recorded ?Confirmed ?Type acetaminophen 160 mg/5 mL oral 650 mg feeding tube Q4HR PRN fever 01/16/21 05/08/25 History liquid or pain ascorbic acid (vitamin C) 1,000 mg 1 g feeding tube QDAY 01/16/21 05/08/25 History tablet (Vitamin C) fluticasone propionate 50 1 spray intranasal BID 01/16/21 05/08/25 History mcg/actuation nasal spray,suspension ofloxacin 0.3 % ear drops in a 5 drp otic (ear) BID 01/16/21 05/08/25 History dropperette ciprofloxacin 0.3 %-dexamethasone 4 drp otic (ear) BID 03/06/21 05/08/25 History 0.1 % ear drops,suspension (Ciprodex) omeprazole 20 mg capsule,delayed 20 mg feeding tube DAILY 09/27/23 05/08/25 History release levetiracetam 100 mg/mL oral 100 mg feeding tube BID 05/08/24 05/08/25 History solution montelukast 10 mg tablet 10 mg feeding tube DAILY 05/08/24 05/08/25 History quetiapine 100 mg tablet 100 mg feeding tube HS 05/08/24 05/08/25 History quetiapine 50 mg tablet 50 mg feeding tube QAM 05/08/24 05/08/25 History Allergies Allergy/AdvReac Type Severity Reaction Status Date / Time valbenazine (From Ingrezza) Allergy Severe Agitated Verified 11/02/23 00:43 Sulfa (Sulfonamide Allergy Intermediate Rash Verified 11/02/23 00:43 Antibiotics) glycopyrrolate Allergy Rash Verified 11/02/23 00:43 haloperidol Allergy Rash Verified 11/02/23 00:43 sulfamethoxazole (From Allergy Rash Verified 11/02/23 00:43 Bactrim) trimethoprim (From Bactrim) Allergy Rash Verified 11/02/23 00:43 Visit Medications Albuterol/Ipratropium (Albuterol/Ipratropium (Duoneb) Rt Racquel 3 Ml Nebu) 3 ml INH Q2HR PRN PRN Reason: SHORTNESS OF BREATH OR WHEEZE Stop: 06/07/25 16:12 Haloperidol Lactate (Haloperidol Lact Inj 5 Mg/Ml Vial) 5 mg IV Q6HR PRN On Hold: 05/09/25 07:54 PRN Reason: AGITATION (SEVERE) Stop: 05/13/25 14:55 Last Admin: 05/09/25 07:20 Dose: 5 mg Ceftriaxone Sodium 2 gm/ (Sodium Chloride) 50 mls @ 100 mls/hr IV Q12HR KYA Stop: 05/15/25 11:19 Last Admin: 05/09/25 09:11 Dose: 100 mls/hr Acyclovir Sodium 640 mg/ (Sodium Chloride) 112.8 mls @ 98.947 mls/hr IV Q8HR [facility] Stop: 05/15/25 15:59 Last Admin: 05/09/25 14:32 Dose: 98.947 mls/hr Lactated Ringer's (Lactated Ringers) 1,000 mls @ 100 mls/hr IV .Q10H [facility] Stop: 06/07/25 11:23 Last Admin: 05/09/25 14:32 Dose: 100 mls/hr Valproic Acid 187.5 mg/ Sodium (Chloride) 51.875 mls @ 51.875 mls/hr IV Q6HR [facility]; Protocol Stop: 06/07/25 17:59 Last Admin: 05/09/25 12:31 Dose: 51.875 mls/hr Acetaminophen (Ofirmev Inj) 1,000 mg in 100 mls @ 250 mls/hr IV Q6HR PRN PRN Reason: Temp > 100 Stop: 05/10/25 00:23 Last Admin: 05/09/25 11:16 Dose: 250 mls/hr Vancomycin/Sodium Chloride (Vancomycin/Ns 1 Gm Ivpb) 200 mls @ 120 mls/hr IV Q8HR KYA; Protocol Stop: 05/16/25 08:14 Last Admin: 05/09/25 14:47 Dose: 120 mls/hr Propofol (Diprivan Ivpb) 1,000 mg in 100 mls @ 2.048 mls/hr IV .Q24H PRN; Protocol PRN Reason: PER PROTOCOL Stop: 06/08/25 15:41 Last Admin: 05/09/25 16:00 Dose: 5 mcg/kg/min, 2.048 mls/hr Fentanyl Citrate (Sublimaze Inj 2,500 Mcg/250 Ml Bag) 2,500 mcg in 250 mls @ 2.5 mls/hr IV .Q24H PRN; Protocol PRN Reason: PER PROTOCOL Stop: 05/14/25 16:01 Last Admin: 05/09/25 16:05 Dose: 25 mcg/hr, 2.5 mls/hr Levetiracetam (Levetiracetam Inj 100 Mg/Ml Vial 5ml) 800 mg IV BID [facility] Stop: 06/07/25 20:59 Last Admin: 05/09/25 09:12 Dose: 800 mg Ofloxacin (Ofloxacin Op Racquel 0.3% 5 Ml Btl) 5 drop BOTH EARS BID KYA Stop: 05/18/25 10:14 Last Admin: 05/09/25 11:20 Dose: 5 drops Ondansetron HCl (Ondansetron Inj 2 Mg/Ml Inj 2 Ml) 4 mg IVP Q6HR PRN; Protocol PRN Reason: NAUSEA OR VOMITING Stop: 06/07/25 11:35 Pharmacy Consult (Vancomycin Pharmacy To Dose 1 Each Each) 1 each IV QDAY PRN PRN Reason: CONSULT Stop: 06/07/25 11:29 Pharmacy Consult (Pharmacy To Consult Patient) 1 each XX PRN PRN PRN Reason: CONSULT Stop: 06/07/25 16:11 Discontinued Medications Acetaminophen (Acetaminophen Supp 650 Mg Supp) 975 mg SD X1 ONE Stop: 05/08/25 01:03 Last Admin: 05/08/25 01:27 Dose: 975 mg Acetaminophen (Acetaminophen 325 Mg Tablet) 650 mg PO X1 ONE Stop: 05/09/25 02:53 Last Admin: 05/09/25 02:59 Dose: 650 mg Albuterol (Albuterol Rt 2.5 Mg/3 Ml Nebu) 2.5 mg INH X1 ONE Stop: 05/08/25 04:02 Last Admin: 05/08/25 04:13 Dose: 2.5 mg Diazepam (Diazepam Inj 5 Mg/Ml Vial 2 Ml) 2 mg IVP X1 ONE Stop: 05/09/25 04:10 Last Admin: 05/09/25 04:27 Dose: 2 mg Diazepam (Diazepam Inj 5 Mg/Ml Vial 2 Ml) 5 mg IVP X1 PRN PRN Reason: Prior to CT Scan Stop: 05/14/25 07:54 Diazepam (Diazepam Inj 5 Mg/Ml Vial 2 Ml) 5 mg IVP X1 ONE Stop: 05/09/25 08:07 Last Admin: 05/09/25 08:11 Dose: 5 mg Diazepam (Diazepam Inj 5 Mg/Ml Vial 2 Ml) 5 mg IVP X1 PRN PRN Reason: AGITATION (MILD) Diazepam (Diazepam Inj 5 Mg/Ml Vial 2 Ml) 2 mg IV Q4HR PRN PRN Reason: ANXIETY Stop: 05/14/25 10:55 Last Admin: 05/09/25 11:14 Dose: 2 mg Diphenhydramine HCl (Diphenhydramine Inj 50 Mg/Ml Vial) 12.5 mg IM X1 ONE Stop: 05/08/25 13:16 Last Admin: 05/08/25 13:31 Dose: 12.5 mg Diphenhydramine HCl (Diphenhydramine Inj 50 Mg/Ml Vial) 25 mg IVP X1 ONE Stop: 05/08/25 14:45 Last Admin: 05/08/25 14:58 Dose: 25 mg Diphenhydramine HCl (Diphenhydramine Inj 50 Mg/Ml Vial) 25 mg IVP X1 ONE Stop: 05/08/25 15:31 Last Admin: 05/08/25 15:42 Dose: 25 mg Fentanyl Citrate (Fentanyl Cit Inj 50 Mcg/Ml Amp 2ml) 100 mcg IVP X1 ONE Stop: 05/09/25 15:28 Last Admin: 05/09/25 15:48 Dose: 100 mcg Haloperidol Lactate (Haloperidol Lact Inj 5 Mg/Ml Vial) 2 mg IM X1 ONE Stop: 05/08/25 13:15 Last Admin: 05/08/25 13:30 Dose: 2 mg Haloperidol Lactate (Haloperidol Lact Inj 5 Mg/Ml Vial) 2.5 mg IV X1 ONE Stop: 05/08/25 14:47 Last Admin: 05/08/25 15:01 Dose: 2.5 mg Haloperidol Lactate (Haloperidol Lact Inj 5 Mg/Ml Vial) 0.5 mg IV X1 ONE Stop: 05/09/25 13:29 Last Admin: 05/09/25 15:09 Dose: Not Given Hydrocortisone Sodium Succinate (Hydrocortisone Sod Succ Inj 100 Mg 2 Ml Vial) 100 mg IV X1 ONE Stop: 05/08/25 16:14 Last Admin: 05/08/25 16:32 Dose: 100 mg Hydromorphone HCl (Hydromorphone Inj 2 Mg/Ml Vial) 1 mg IVP X1 ONE Stop: 05/09/25 13:32 Last Admin: 05/09/25 13:36 Dose: 1 mg Hydromorphone HCl (Hydromorphone Inj 2 Mg/Ml Vial) 1 mg IVP Q4HR PRN PRN Reason: Breakthrough Pain Stop: 05/14/25 13:35 Hydromorphone HCl (Hydromorphone Inj 2 Mg/Ml Vial) 1 mg IVP X1 ONE Stop: 05/09/25 14:28 Last Admin: 05/09/25 14:47 Dose: 1 mg Sodium Chloride (Ns) 1,908 mls @ 1,908 mls/hr 30 ml/kg infuse over 60 min (1908 ml) IV .Q1H ONE; Protocol Stop: 05/08/25 01:55 Last Infusion: 05/08/25 04:00 Dose: Infused Ceftriaxone Sodium/Dextrose (Rocephin/D5w 1gm Iv Premix) 1 gm in 50 mls @ 100 mls/hr IV X1 ONE Stop: 05/08/25 01:40 Last Infusion: 05/08/25 02:29 Dose: Infused Lactated Ringer's (Lactated Ringers) 1,000 mls @ 999 mls/hr IV .Q1H1M ONE Stop: 05/08/25 05:21 Last Infusion: 05/08/25 06:22 Dose: Infused Piperacillin/Tazobactam/Dextrose (Zosyn) 3.375 gm in 50 mls @ 100 mls/hr IV X1 ONE; Protocol Stop: 05/08/25 05:06 Last Infusion: 05/08/25 05:37 Dose: Infused Ampicillin Sodium 2,000 mg/ (Sodium Chloride) 100 mls @ 100 mls/hr IV Q4HR KYA Stop: 05/15/25 11:21 Last Admin: 05/09/25 13:37 Dose: 100 mls/hr Lactated Ringer's (Lactated Ringers) 1,000 mls @ 999 mls/hr IV .Q1H1M ONE Stop: 05/08/25 12:23 Last Admin: 05/08/25 15:06 Dose: 999 mls/hr Acetaminophen (Ofirmev Inj) 1,000 mg in 100 mls @ 250 mls/hr IV Q6HR PRN PRN Reason: Fever > 100.4 Stop: 05/09/25 00:23 Last Admin: 05/08/25 15:16 Dose: 250 mls/hr Vancomycin/Sodium Chloride (Vancomycin/Ns 1 Gm Ivpb) 200 mls @ 120 mls/hr IV X1 ONE; Protocol Stop: 05/08/25 19:39 Last Admin: 05/08/25 17:36 Dose: 120 mls/hr Lactated Ringer's (Lactated Ringers) 1,000 mls @ 999 mls/hr IV .Q1H1M ONE Stop: 05/08/25 17:20 Last Admin: 05/08/25 17:33 Dose: 999 mls/hr Magnesium Sulfate (Magnesium Sulfate Ivpb) 2 gm in 50 mls @ 25 mls/hr IV X1 ONE Stop: 05/09/25 09:48 Last Admin: 05/09/25 09:12 Dose: 25 mls/hr Ketamine HCl (Ketamine 50 Mg/Ml Vial 10 Ml) 100 mg IVP X1 ONE Stop: 05/09/25 15:40 Levetiracetam (Levetiracetam Liqd 500 Mg/5 Ml Udc) 800 mg GT BID KYA Stop: 06/07/25 10:29 Last Admin: 05/08/25 13:47 Dose: 800 mg Levetiracetam (Levetiracetam Liqd 500 Mg/5 Ml Udc) 800 mg GT X1 ONE Stop: 05/08/25 15:40 Last Admin: 05/08/25 17:48 Dose: 800 mg Lorazepam (Lorazepam 2 Mg/Ml Vial) 2 mg IVP X1 ONE Stop: 05/08/25 14:45 Last Admin: 05/08/25 17:37 Dose: Not Given Midazolam HCl (Midazolam Inj 1 Mg/Ml Vial 2 Ml) 2 mg IVP X1 ONE Stop: 05/08/25 01:35 Last Admin: 05/08/25 01:46 Dose: 2 mg Midazolam HCl (Midazolam Inj 1 Mg/Ml Vial 2 Ml) 2 mg IVP X1 PRN PRN Reason: Seizure > 3 mins Midazolam HCl (Midazolam Inj 1 Mg/Ml Vial 2 Ml) 2 mg IM X1 ONE Stop: 05/08/25 11:53 Last Admin: 05/08/25 12:38 Dose: 2 mg Midazolam HCl (Midazolam Inj 1 Mg/Ml Vial 2 Ml) 2 mg IVP X1 ONE Stop: 05/08/25 14:55 Last Admin: 05/08/25 15:03 Dose: 2 mg Midazolam HCl (Midazolam Inj 1 Mg/Ml Vial 2 Ml) 2 mg IVP X1 ONE Stop: 05/08/25 15:31 Last Admin: 05/08/25 16:25 Dose: 2 mg Midazolam HCl (Midazolam Inj 1 Mg/Ml Vial 2 Ml) 5 mg IVP X1 ONE Stop: 05/08/25 16:20 Last Admin: 05/08/25 17:26 Dose: Not Given Midazolam HCl (Midazolam Inj 1 Mg/Ml Vial 2 Ml) 2 mg IVP X1 ONE Stop: 05/08/25 16:01 Last Admin: 05/08/25 16:00 Dose: 2 mg Midazolam HCl (Midazolam Inj 1 Mg/Ml Vial 2 Ml) 2 mg IVP X1 PRN PRN Reason: AGITATION (SEVERE) Last Admin: 05/09/25 01:37 Dose: 2 mg Midazolam HCl (Midazolam Inj 1 Mg/Ml Vial 2 Ml) 2 mg IVP X1 ONE Stop: 05/08/25 20:10 Last Admin: 05/08/25 20:26 Dose: 2 mg Midazolam HCl (Midazolam Inj 1 Mg/Ml Vial 2 Ml) 2 mg IVP X1 ONE Stop: 05/09/25 05:31 Last Admin: 05/09/25 05:42 Dose: 2 mg Midazolam HCl (Midazolam Inj 1 Mg/Ml Vial 2 Ml) 6 mg IVP X1 ONE Stop: 05/09/25 15:28 Last Admin: 05/09/25 15:50 Dose: 6 mg Morphine Sulfate (Morphine Sulf Inj 4 Mg/Ml Vial) 2 mg IVP Q6HR PRN PRN Reason: PAIN SCALE 4-10(Mod-Sev Stop: 05/14/25 08:33 Last Admin: 05/09/25 09:30 Dose: 2 mg Sodium Chloride (Sodium Chloride Rt 10% 15 Ml Nebu) 5 ml INH X1 ONE Stop: 05/09/25 16:35 Valproic Acid (Valproic Acid Syrup 250 Mg/5 Ml Udc) 250 mg GT TID KAY Stop: 06/07/25 13:59 Last Admin: 05/08/25 15:39 Dose: 250 mg Valproic Acid (Valproic Acid Syrup 250 Mg/5 Ml Udc) 250 mg GT X1 ONE Stop: 05/08/25 15:40 Last Admin: 05/08/25 15:40 Dose: 250 mg Assessment & Plan Plan David Baltazar is 24 yr male with PMH of chronic mastoiditis (previously had tympanostomy tube placed for recurrent otitis media, now removed), seizure disorder, recurrent pneumonia, cerebral palsy, chronic PEG tube, and asthma who was brought into ED on 05/08/25 for ongoing fever of over 24 hours and reported episode of witnessed seizure by ED. Patient was septic. Neurology was consulted to for LP to rule out meningitis. #Sepsis #Mastoiditis #rule out Meningitis #Tonic clonic seizure #Hx seizures #Cerebral palsy On admission he was noted to have fever of 105, leukocytosis 16, tachycardia 176, and tachypnic 26. CT orbit sella showed b/L otitis externa and media. Reduced mastoid aeration on the left, b/L chlestatomas. He was started on vancomycin, ceftriaxone 2g BID, ampicillin 2g q4hr, and acyclovir. -continue vancomycin, ceftriaxone, and acyclovir -plan for LP if another fever spike in next 24 hrs. -EEG read is pending -continue IV Keppra 800mg BID -IV Depakote 187mg q6hr. -siezure precautions -midazolam for breakthrough seizure #Paraphimosis #Acute Kidney Injury #Anion Gap Metabolic Acidosis #Lactic acidosis #Elevated total creatine kinase #Normocytic Anemia Primary care team to manage above conditions and ongoing care needs. The patient's management plan was discussed with my attending physician Dr. Lang. Zakiya Delacruz, PGY-2 Attending Provider Attestation/Addendum I personally have seen and examined the patient at the bedside and I agreed with the resident's findings, assessment and plan of care. Patient Presenting with a fever of unknown origin on broad-spectrum antibiotics, as his fever is subsiding unless he has fever spikes in 24 hours we will hold off on doing lumbar puncture. Follow-up with the blood culture and urine culture. His seizures have been under control on current medication. Follow-up with the Depakote level
--- NOTE | 2025-05-09 16:49 | ESCONSULT_ITS ---
<Statement entered by Kamlesh Baer MD - 05/10/25 20:56> Patient seen and examined at bedside. I discussed and supervised with the video production intern physician who took care of this patient. I personally saw and examined the patient. I agree with most of the assessment and plan. Plan of care discussed with attending Dr. Armendariz. Kamlesh Baer MD PGY-2 HPI Data of Consult Requesting Physician: Leroy Camp MD Admitting Provider: Natasha Moreira MD Attending Provider: Leroy Camp MD Primary Care Provider: Tavares Cole MD Consult Narrative History of present illness: 24-year-old male with a past medical history significant for cerebral palsy, asthma, seizure disorder, chronic mastoiditis (previously treated with tympanostomy tube placement for recurrent otitis media, now removed), recurrent pneumonia, and chronic PEG tube dependence, presented to the ED on 05/08/2025 with a fever lasting over 24 hours. The patient also had a witnessed seizure episode lasting 5-10 seconds, characterized by tonic-clonic activity confined to the left side of the body. ED Course: -Initial vitals were: BP 122/84, HR 176, RR 26, T 105F, O2 sat 96% on room air. -Labs significant for: CBC showed a WBC of 16.3. CMP showed Na 148, K 5.2, Cl 107, bicarbonate 18.7, anion gap 22, creatinine 1.3 (baseline 0.7), lactic acid 3.2, alkaline phosphatase 120, LDH 352, total CK 1048, procalcitonin: 0.14. Urinalysis negative. Influenza A/B testing was negative. -Imaging included: EKG showed supraventricular tachycardia of HR [address] and T-wave abnormality. CXR showed no aspiration pneumonia but was noted to be of poor inspiratory effort. CT CAP w/o contrast seemed to show no gross infiltrates or other notable findings but was noted to be severely degraded by patient motion. -In the ED, patient was given acetaminophen 975 mg, ceftriaxone 1 gram IV, midazolam 2 mg IV x1, albuterol 2.5 mg, Zosyn 3.375 gram, 2 L NS fluid infusion, and 1 L LR fluid infusion. In the ED, the patient was agitated and pulled out his IV. Attempts at peripheral access were unsuccessful, and a right femoral central line was placed. Telemetry Course: Patient was admitted to telemetry for further workup and management of sepsis of unknown source, with concern for meningitis. Empiric broad-spectrum antibiotic and antiviral therapy were started, consisting of ceftriaxone 2g IV twice daily, vancomycin (pharmacy to dose), ampicillin, and acyclovir. Neurology was consulted. CT of the orbit, sella, and inner ear was ordered given the patient?s history of acute mastoiditis, which showed severe bilateral chronic mastoiditis, bilateral otitis externa, bilateral otitis media, and bilateral cholesteatomas in the attics. CT head was also performed and was negative for acute hemorrhage, mass effect, or midline shift. Findings included prominent sphenoid, ethmoid, and maxillary antral sinusitis, bilateral chronic mastoiditis, bilateral otitis media, and opacification in the bilateral attics. For the patient?s seizures, his home medications of valproic acid and levetiracetam were restarted. Orders for midazolam and Haldol were placed as needed for breakthrough seizures and agitation. An ice pack was ordered for his paraphimosis. Infectious disease was also consulted. Primary team consulted ICU team. On 05/09, two rapid responses were initiated due to the patient?s escalating agitation and anxiety. Patient appeared to be in significant pain from his paraphimosis. The primary team consulted the ICU for further management, as the patient had already received diazepam, haldol, versed, and dilaudid earlier that morning, with inadequate relief. Additionally, there was concern over a decline in his pO2 levels. The initial ABG at 11:56 showed: pH 7.40, pCO2 40, pO2 131, HCO3 25. A repeat ABG at 13:40 revealed: pH 7.27, pCO2 43, pO2 53, HCO3 20. Upon evaluation by the ICU team, the patient was noted to be extremely agitated and wearing an oxygen mask, with audible gurgling sounds coming from the upper airway, raising concern for potential airway compromise. Given the risk of inadequate airway protection, the decision was made to transfer the patient to the ICU for intubation and further management. In the ICU, the patient was intubated. Urology, Dr. Vargas, was consulted earlier in the day. He was able to successfully perform a reduction of the paraphimosis. cc:: cc: Leroy Camp MD Review of Systems Review of Systems Narrative Review of Systems: All 13 review of systems are negative except as listed above in the HPI. Exam Vital Signs Temp Pulse Resp BP Pulse Ox O2 Del Method O2 Flow Rate 99.5 F 106 H 25 H 110/66 92 L Oxy Mask 9 05/09/25 13:28 05/09/25 16:15 05/09/25 13:28 05/09/25 16:15 05/09/25 16:15 05/09/25 12:00 05/09/25 13:28 FiO2 50 05/09/25 16:15 Narrative Exam General: alert but nonverbal, appearing acutely distressed and exhibiting agitation, with active movement of all four extremities. Skin: Rash near buttock area. Head: Normocephalic, atraumatic. Eyes: PERRL, EOMI. Anicteric. Mouth/Throat: Poor dentition. Oral mucosa moist. No obvious lesions in oropharynx. Cardiovascular: Tachycardic rate and normal rhythm, no murmur. Respiratory: Tachypneic. No crackles, no wheezing. No accessory muscle use. Gastrointestinal: PEG tube in place. Soft, non-distended, no guarding or rebound tenderness. Genitourinary: Paraphimosis of penis. Extremities: Contracted. No edema, cyanosis, mottling, clubbing. 2+ radial pulse bilaterally, 2+ posterior tibial pulse bilaterally. Results Labs 05/15/25 04:25 05/15/25 04:25 Labs: Short CBC 05/09/25 Range/Units 05:17 WBC 10.8 H (3.8-10.6) Thou/mm3 Hgb 10.5 L (13.5-16.0) g/dL Hct 31.8 L (41.0-53.0) % Plt Count 167 D (140-440) Thou/mm3 BMP 05/09/25 05:17 Sodium 142 Potassium 3.8 D Chloride 104 Carbon Dioxide 24.9 BUN 11 Creatinine 1.0 Glucose 77 Calcium 9.0 Liver Function 05/09/25 Range/Units 05:17 Total Bilirubin 0.5 (0.3-1.2) mg/dL AST 106 H (0-34) U/L ALT 37 (10-49) U/L Alkaline Phosphatase 77 (46-116) U/L Albumin 3.8 (3.5-5.0) gm/dL ABG Interpretation ABG results: 05/09/25 05/09/25 11:56 13:40 ABG pH 7.40 7.27 L D ABG pCO2 40 43 ABG pO2 131 H 53 L* D ABG HCO3 25 20 ABG O2 Saturation 99 H 81 L ABG Base Excess 0 -7 L Quality Measures Quality Measures sepsis Current suspected stage: sepsis Possible source: pulmonary Blood cultures ordered: yes Antibiotic ordered: Yes and none Medications Home Medications and Allergies Home Medications ?Medication ?Instructions ?Recorded ?Confirmed ?Type acetaminophen 160 mg/5 mL oral 650 mg feeding tube Q4H R PRN fever 01/16/21 05/08/25 History liquid or pain ascorbic acid (vitamin C) 1,000 mg 1 g feeding tube QD AY 01/16/21 05/08/25 History tablet (Vitamin C) fluticasone propionate 50 1 spray intranasal BID 01/1605/08/25 History mcg/actuation nasal spray,suspension ofloxacin 0.3 % ear drops in a 5 drp otic (ear) BID 05/08/25 History dropperette ciprofloxacin 0.3 %-dexamethasone 4 drp otic (ear) BID 03/06/21 05/08/25 History 0.1 % ear drops,suspension (Ciprodex) omeprazole 20 mg capsule,delayed 20 mg feeding tube DA BOB 09/27/23 05/08/25 History release levetiracetam 100 mg/mL oral 100 mg feeding tube BID 1 05/08/25 History solution montelukast 10 mg tablet 10 mg feeding tube DAILY 07/2005/08/25 History quetiapine 100 mg tablet 100 mg feeding tube HS 05/0805/08/25 History quetiapine 50 mg tablet 50 mg feeding tube QAM 05/0805/08/25 History Allergies Allergy/AdvReac Type Severity Reaction Status Date / Time valbenazine (From Ingrezza) Allergy Severe Agitated Verified 11/02/23 00:43 Sulfa (Sulfonamide Allergy Intermediate Rash Verified 11/02/23 00:43 Antibiotics) glycopyrrolate Allergy Rash Verified 11/02/23 00:43 haloperidol Allergy Rash Verified 11/02/23 00:43 sulfamethoxazole (From Allergy Rash Verified 11/02/23 00:43 Bactrim) trimethoprim (From Bactrim) Allergy Rash Verified 11/02/23 00:43 Visit Medications Ceftriaxone Sodium 2 gm/ (Sodium Chloride) 50 mls @ 100 mls/hr IV Q12HR KYA Stop: 05/15/25 11:19 Last Admin: 05/09/25 09:11 Dose: 100 mls/hr Acyclovir Sodium 640 mg/ (Sodium Chloride) 112.8 mls @ 98.947 mls/hr IV Q8HR KYA Stop: 05/15/25 15:59 Last Admin: 05/09/25 14:32 Dose: 98.947 mls/hr Valproic Acid 187.5 mg/ Sodium (Chloride) 51.875 mls @ 51.875 mls/hr IV Q6HR KYA; Protocol Stop: 06/07/25 17:59 Last Admin: 05/09/25 12:31 Dose: 51.875 mls/hr Acetaminophen (Ofirmev Inj) 1,000 mg in 100 mls @ 250 mls/hr IV Q6HR PRN PRN Reason: Temp > 100 Stop: 05/10/25 00:23 Last Admin: 05/09/25 11:16 Dose: 250 mls/hr Vancomycin/Sodium Chloride (Vancomycin/Ns 1 Gm Ivpb) 200 mls @ 120 mls/hr IV Q8HR KYA; Protocol Stop: 05/16/25 08:14 Last Admin: 05/09/25 14:47 Dose: 120 mls/hr Propofol (Diprivan Ivpb) 1,000 mg in 100 mls @ 2.048 mls/hr IV .Q24H PRN; Protocol PRN Reason: PER PROTOCOL Stop: 06/08/25 15:41 Last Admin: 05/09/25 16:00 Dose: 5 mcg/kg/min, 2.048 mls/hr Fentanyl Citrate (Sublimaze Inj 2,500 Mcg/250 Ml Bag) 2,500 mcg in 250 mls @ 2.5 mls/hr IV .Q24H PRN; Protocol PRN Reason: PER PROTOCOL Stop: 05/14/25 16:01 Last Admin: 05/09/25 16:05 Dose: 25 mcg/hr, 2.5 mls/hr Levetiracetam (Levetiracetam Inj 100 Mg/Ml Vial 5ml) 800 mg IV BID KYA Stop: 06/07/25 20:59 Last Admin: 05/09/25 09:12 Dose: 800 mg Ofloxacin (Ofloxacin Op Racquel 0.3% 5 Ml Btl) 5 drop BOTH EARS BID KYA Stop: 05/18/25 10:14 Last Admin: 05/09/25 11:20 Dose: 5 drops Ondansetron HCl (Ondansetron Inj 2 Mg/Ml Inj 2 Ml) 4 mg IVP Q6HR PRN; Protocol PRN Reason: NAUSEA OR VOMITING Stop: 06/07/25 11:35 Pharmacy Consult (Vancomycin Pharmacy To Dose 1 Each Each) 1 each IV QDAY PRN PRN Reason: CONSULT Stop: 06/07/25 11:29 Pharmacy Consult (Pharmacy To Consult Patient) 1 each XX PRN PRN PRN Reason: CONSULT Stop: 06/07/25 16:11 Discontinued Medications Acetaminophen (Acetaminophen Supp 650 Mg Supp) 975 mg FL X1 ONE Stop: 05/08/25 01:03 Last Admin: 05/08/25 01:27 Dose: 975 mg Acetaminophen (Acetaminophen 325 Mg Tablet) 650 mg PO X1 ONE Stop: 05/09/25 02:53 Last Admin: 05/09/25 02:59 Dose: 650 mg Albuterol (Albuterol Rt 2.5 Mg/3 Ml Nebu) 2.5 mg INH X1 ONE Stop: 05/08/25 04:02 Last Admin: 05/08/25 04:13 Dose: 2.5 mg Albuterol/Ipratropium (Albuterol/Ipratropium (Duoneb) Rt Racquel 3 Ml Nebu) 3 ml INH Q2HR PRN PRN Reason: SHORTNESS OF BREATH OR WHEEZE Stop: 06/07/25 16:12 Diazepam (Diazepam Inj 5 Mg/Ml Vial 2 Ml) 2 mg IVP X1 ONE Stop: 05/09/25 04:10 Last Admin: 05/09/25 04:27 Dose: 2 mg Diazepam (Diazepam Inj 5 Mg/Ml Vial 2 Ml) 5 mg IVP X1 PRN PRN Reason: Prior to CT Scan Stop: 05/14/25 07:54 Diazepam (Diazepam Inj 5 Mg/Ml Vial 2 Ml) 5 mg IVP X1 ONE Stop: 05/09/25 08:07 Last Admin: 05/09/25 08:11 Dose: 5 mg Diazepam (Diazepam Inj 5 Mg/Ml Vial 2 Ml) 5 mg IVP X1 PRN PRN Reason: AGITATION (MILD) Diazepam (Diazepam Inj 5 Mg/Ml Vial 2 Ml) 2 mg IV Q4HR PRN PRN Reason: ANXIETY Stop: 05/14/25 10:55 Last Admin: 05/09/25 11:14 Dose: 2 mg Diphenhydramine HCl (Diphenhydramine Inj 50 Mg/Ml Vial) 12.5 mg IM X1 ONE Stop: 05/08/25 13:16 Last Admin: 05/08/25 13:31 Dose: 12.5 mg Diphenhydramine HCl (Diphenhydramine Inj 50 Mg/Ml Vial) 25 mg IVP X1 ONE Stop: 05/08/25 14:45 Last Admin: 05/08/25 14:58 Dose: 25 mg Diphenhydramine HCl (Diphenhydramine Inj 50 Mg/Ml Vial) 25 mg IVP X1 ONE Stop: 05/08/25 15:31 Last Admin: 05/08/25 15:42 Dose: 25 mg Fentanyl Citrate (Fentanyl Cit Inj 50 Mcg/Ml Amp 2ml) 100 mcg IVP X1 ONE Stop: 05/09/25 15:28 Last Admin: 05/09/25 15:48 Dose: 100 mcg Haloperidol Lactate (Haloperidol Lact Inj 5 Mg/Ml Vial) 2 mg IM X1 ONE Stop: 05/08/25 13:15 Last Admin: 05/08/25 13:30 Dose: 2 mg Haloperidol Lactate (Haloperidol Lact Inj 5 Mg/Ml Vial) 2.5 mg IV X1 ONE Stop: 05/08/25 14:47 Last Admin: 05/08/25 15:01 Dose: 2.5 mg Haloperidol Lactate (Haloperidol Lact Inj 5 Mg/Ml Vial) 5 mg IV Q6HR PRN PRN Reason: AGITATION (SEVERE) Stop: 05/13/25 14:55 Last Admin: 05/09/25 07:20 Dose: 5 mg Haloperidol Lactate (Haloperidol Lact Inj 5 Mg/Ml Vial) 0.5 mg IV X1 ONE Stop: 05/09/25 13:29 Last Admin: 05/09/25 15:09 Dose: Not Given Hydrocortisone Sodium Succinate (Hydrocortisone Sod Succ Inj 100 Mg 2 Ml Vial) 100 mg IV X1 ONE Stop: 05/08/25 16:14 Last Admin: 05/08/25 16:32 Dose: 100 mg Hydromorphone HCl (Hydromorphone Inj 2 Mg/Ml Vial) 1 mg IVP X1 ONE Stop: 05/09/25 13:32 Last Admin: 05/09/25 13:36 Dose: 1 mg Hydromorphone HCl (Hydromorphone Inj 2 Mg/Ml Vial) 1 mg IVP Q4HR PRN PRN Reason: Breakthrough Pain Stop: 05/14/25 13:35 Hydromorphone HCl (Hydromorphone Inj 2 Mg/Ml Vial) 1 mg IVP X1 ONE Stop: 05/09/25 14:28 Last Admin: 05/09/25 14:47 Dose: 1 mg Sodium Chloride (Ns) 1,908 mls @ 1,908 mls/hr 30 ml/kg infuse over 60 min (1908 ml) IV .Q1H ONE; Protocol Stop: 05/08/25 01:55 Last Infusion: 05/08/25 04:00 Dose: Infused Ceftriaxone Sodium/Dextrose (Rocephin/D5w 1gm Iv Premix) 1 gm in 50 mls @ 100 mls/hr IV X1 ONE Stop: 05/08/25 01:40 Last Infusion: 05/08/25 02:29 Dose: Infused Lactated Ringer's (Lactated Ringers) 1,000 mls @ 999 mls/hr IV .Q1H1M ONE Stop: 05/08/25 05:21 Last Infusion: 05/08/25 06:22 Dose: Infused Piperacillin/Tazobactam/Dextrose (Zosyn) 3.375 gm in 50 mls @ 100 mls/hr IV X1 ONE; Protocol Stop: 05/08/25 05:06 Last Infusion: 05/08/25 05:37 Dose: Infused Ampicillin Sodium 2,000 mg/ (Sodium Chloride) 100 mls @ 100 mls/hr IV Q4HR KYA Stop: 05/15/25 11:21 Last Admin: 05/09/25 13:37 Dose: 100 mls/hr Lactated Ringer's (Lactated Ringers) 1,000 mls @ 100 mls/hr IV .Q10H KYA Stop: 06/07/25 11:23 Last Admin: 05/09/25 14:32 Dose: 100 mls/hr Lactated Ringer's (Lactated Ringers) 1,000 mls @ 999 mls/hr IV .Q1H1M ONE Stop: 05/08/25 12:23 Last Admin: 05/08/25 15:06 Dose: 999 mls/hr Acetaminophen (Ofirmev Inj) 1,000 mg in 100 mls @ 250 mls/hr IV Q6HR PRN PRN Reason: Fever > 100.4 Stop: 05/09/25 00:23 Last Admin: 05/08/25 15:16 Dose: 250 mls/hr Vancomycin/Sodium Chloride (Vancomycin/Ns 1 Gm Ivpb) 200 mls @ 120 mls/hr IV X1 ONE; Protocol Stop: 05/08/25 19:39 Last Admin: 05/08/25 17:36 Dose: 120 mls/hr Lactated Ringer's (Lactated Ringers) 1,000 mls @ 999 mls/hr IV .Q1H1M ONE Stop: 05/08/25 17:20 Last Admin: 05/08/25 17:33 Dose: 999 mls/hr Magnesium Sulfate (Magnesium Sulfate Ivpb) 2 gm in 50 mls @ 25 mls/hr IV X1 ONE Stop: 05/09/25 09:48 Last Admin: 05/09/25 09:12 Dose: 25 mls/hr Ketamine HCl (Ketamine 50 Mg/Ml Vial 10 Ml) 100 mg IVP X1 ONE Stop: 05/09/25 15:40 Levetiracetam (Levetiracetam Liqd 500 Mg/5 Ml Udc) 800 mg GT BID KYA Stop: 06/07/25 10:29 Last Admin: 05/08/25 13:47 Dose: 800 mg Levetiracetam (Levetiracetam Liqd 500 Mg/5 Ml Udc) 800 mg GT X1 ONE Stop: 05/08/25 15:40 Last Admin: 05/08/25 17:48 Dose: 800 mg Lorazepam (Lorazepam 2 Mg/Ml Vial) 2 mg IVP X1 ONE Stop: 05/08/25 14:45 Last Admin: 05/08/25 17:37 Dose: Not Given Midazolam HCl (Midazolam Inj 1 Mg/Ml Vial 2 Ml) 2 mg IVP X1 ONE Stop: 05/08/25 01:35 Last Admin: 05/08/25 01:46 Dose: 2 mg Midazolam HCl (Midazolam Inj 1 Mg/Ml Vial 2 Ml) 2 mg IVP X1 PRN PRN Reason: Seizure > 3 mins Midazolam HCl (Midazolam Inj 1 Mg/Ml Vial 2 Ml) 2 mg IM X1 ONE Stop: 05/08/25 11:53 Last Admin: 05/08/25 12:38 Dose: 2 mg Midazolam HCl (Midazolam Inj 1 Mg/Ml Vial 2 Ml) 2 mg IVP X1 ONE Stop: 05/08/25 14:55 Last Admin: 05/08/25 15:03 Dose: 2 mg Midazolam HCl (Midazolam Inj 1 Mg/Ml Vial 2 Ml) 2 mg IVP X1 ONE Stop: 05/08/25 15:31 Last Admin: 05/08/25 16:25 Dose: 2 mg Midazolam HCl (Midazolam Inj 1 Mg/Ml Vial 2 Ml) 5 mg IVP X1 ONE Stop: 05/08/25 16:20 Last Admin: 05/08/25 17:26 Dose: Not Given Midazolam HCl (Midazolam Inj 1 Mg/Ml Vial 2 Ml) 2 mg IVP X1 ONE Stop: 05/08/25 16:01 Last Admin: 05/08/25 16:00 Dose: 2 mg Midazolam HCl (Midazolam Inj 1 Mg/Ml Vial 2 Ml) 2 mg IVP X1 PRN PRN Reason: AGITATION (SEVERE) Last Admin: 05/09/25 01:37 Dose: 2 mg Midazolam HCl (Midazolam Inj 1 Mg/Ml Vial 2 Ml) 2 mg IVP X1 ONE Stop: 05/08/25 20:10 Last Admin: 05/08/25 20:26 Dose: 2 mg Midazolam HCl (Midazolam Inj 1 Mg/Ml Vial 2 Ml) 2 mg IVP X1 ONE Stop: 05/09/25 05:31 Last Admin: 05/09/25 05:42 Dose: 2 mg Midazolam HCl (Midazolam Inj 1 Mg/Ml Vial 2 Ml) 6 mg IVP X1 ONE Stop: 05/09/25 15:28 Last Admin: 05/09/25 15:50 Dose: 6 mg Morphine Sulfate (Morphine Sulf Inj 4 Mg/Ml Vial) 2 mg IVP Q6HR PRN PRN Reason: PAIN SCALE 4-10(Mod-Sev Stop: 05/14/25 08:33 Last Admin: 05/09/25 09:30 Dose: 2 mg Sodium Chloride (Sodium Chloride Rt 10% 15 Ml Nebu) 5 ml INH X1 ONE Stop: 05/09/25 16:35 Valproic Acid (Valproic Acid Syrup 250 Mg/5 Ml Udc) 250 mg GT TID KYA Stop: 06/07/25 13:59 Last Admin: 05/08/25 15:39 Dose: 250 mg Valproic Acid (Valproic Acid Syrup 250 Mg/5 Ml Udc) 250 mg GT X1 ONE Stop: 05/08/25 15:40 Last Admin: 05/08/25 15:40 Dose: 250 mg Assessment & Plan Plan 24-year-old male with cerebral palsy, asthma, seizure disorder, chronic mastoiditis, recurrent pneumonia, and chronic PEG tube dependence presented with fever and seizure, was admitted for sepsis workup, and later transferred to the ICU for intubation due to concerns about airway protection. Neurology #Breakthrough tonic clonic seizure #History of seizures #Cerebral palsy DDx: likely secondary to sepsis vs electrolyte imbalances vs medication non- compliance or inadequate medication dosing. Diagnosis: - Temperature of 105F on admission. - Sodium 148 and potassium 5.2 on admission. - EEG pending. Treatment Plan: - Continue valproic acid 187.5 mg Q6H. - Continue levetiracetam 800mg BID. - Adjust seizure medications if breakthrough seizures persist. - Seizure precautions. - Aspiration precautions. - Neurology consulted, will do LP if patient spikes a fever in the next 24 hours. - Repeat CBC, electrolytes, renal function, and liver function tests to monitor for any metabolic derangements contributing to seizures. #Chemical sedation Sedated on propofol and fentanyl to maintain RASS -2 while intubated. Treatment Plan: - Daily sedation holiday as appropriate for timely weaning of sedation. - Consider midazolam gtt if patient not adequately sedated. Cardiovascular #no active problems Respiratory #Intubated and mechanically ventilated for airway protection Diagnostic Test: - ABG at 11:56 05/09: pH 7.40, pCO2 40, pO2 131, HCO3 25. - A repeat ABG at 13:40 revealed: pH 7.27, pCO2 43, pO2 53, HCO3 20. Treatment Plan: - A/CMV PRVC: VT 370/RR 20/PEEP 10/FiO2 50/Ppeak 28.9/Pplateau 29.4. - Monitor ABG and adjust ventilator settings accordingly. - Perform SBTs, when appropriate. #History of asthma Treatment Plan: - Replete magnesium and for bronchodilatory effect. - Albuterol as needed. GI, , F/E/N #Paraphimosis Diagnostic Test: - Hawkins in place. - Edema and tenderness of the glans penis. - Swelling of the distal retracted foreskin. - Constricting band of tissue proximal to the head of the penis at the coronal sulcus. Treatment Plan: - S/p reduction of the paraphimosis by Dr. Vargas on 05/09. - Remove hawkins when appropriate. - Discuss potential transition to an external urinary catheter (Oivi) given patient?s father?s concerns regarding the current indwelling Hawkins catheter. #Chronic PEG tube dependence Treatment Plan: - Jevity 1.5 1L RTH: start at 40 ml/hr and water flushes at 140 ml Q4H. - Pipeline Controller referral placed. #Hepatitis DDx: muscle injury vs hemolytic anemia vs myocarditis. - Muscle injury/rhabdomyolysis - supported by rising CK and normal ALT. - Hemolytic anemia - possible source of AST from RBC breakdown. - Myocarditis - les likely given normal troponin. Diagnostic Test: - AST 49 --> 106 --> 90. - ALT within normal range. - CK 1048 --> 3743. - LDH 352 --> 332. - Troponin <0.002. Treatment Plan: - IV fluids. - Daily BMP. - Avoid hepatotoxics. #Hypoalbuminemia DDx: acute hepatitis vs nephrotic syndrome vs sepsis vs malnutrition. Diagnostic Test: - UA had urine proteins 1+. Treatment Plan: - Monitor LFTs, INR, and bilirubin. - Pipeline Controller referral to resume PEG tube feeds. Renal #Acute kidney injury DDx: hypotension, dehydration, or vasodilation from sepsis. Diagnositc Test: - Creatinine 1.3 (baseline: 0.7). Treatment Plan: - IV fluids. - Daily renal panel to trend BUN, Cr, and electrolytes. - Avoid nephrotoxins. - Renally dose meds as appropriate. - Strict I&Os, monitor urine output closely. - Monitor for signs of volume overload or uremic symptoms. #Anion Gap Metabolic Acidosis #Lactic acidosis DDx: seizures vs sepsis vs acute kidney injury vs hypoperfusion. Likely from seizures as patient has no signs of systemic hypoperfusion such as skin mottling, decreased cap refills. Diagnostic Test: - Admission anion gap 22, lactic acid 16.0, bicarbonate 18.7. Treatment Plan: - Monitor ABG. - Continue to treat sepsis and seizures. #Rhabdomyolysis DDx: seizures vs hyperthermia vs infectious myositis. Diagnostic Test: - CK 1048 --> 3743. - Temp 105F. - Witnessed seizure episode lasting 5-10 seconds, characterized by tonic-clonic activity prior to admission. - Potassium 5.2 on admission. Treatment Plan: - Continue IV fluids. - Monitor urine output. - Correct electrolyte abnormalities. - Control seizures with valproic acid and levetiracetam. - Acetaminophen as needed for fevers. - Monitor renal panel. Heme #Normocytic Anemia DDx: Anemia of Inflammation vs dilutional anemia vs drug-induced anemia Likely dilutional anemia since patient had normal hemoglobin on admission and from IV fluids per sepsis protocol. Diagnostic Test: - Hemoglobin 14.0 --> 12.0 --> 10.5. Treatment Plan: - Monitor H&H. - Type and screen. - Transfusing for Hgb <7 or symptomatic. Endo #no active problems ID #Sepsis #Leukocytosis #Chronic mastoiditis #Sinusitis #Otitis media DDx: meningitis vs acute on chronic mastoiditis vs acute febrile illness. Diagnostic Test: - CT Head 05/08: prominent sphenoid ethmoid maxillary antral sinusitis, bilateral chronic mastoiditis, bilateral otitis media. - CT Orbit Sella Inner 05/08: severe bilateral chronic mastoiditis, bilateral otitis externa and otitis media, bilateral cholesteatomas in the attics. - Met SIRS criteria on admission: T 105F, HR 176, RR 26, PaCO2 26, WBC 16.3. - Lactic acid 16.0 on admission. - Source of infection: not yet identified. - UA negative. Treatment Plan: - Continue IV vancomycin dosed by pharmacy [05/08--] - Continue IV rocephin 2 gm q12HR [05/08--] - Continue IV acyclovir 700 mg [05/08--] - Discontinued IV ampicillin 2 gm q4HR [05/08-05/09] as patient not in the age group at risk for Listeria infection. - De-escalate per blood culture. Blood culture pending. - Fluids: 30mL/kg -- 2 L NS fluid infusion and 1 L LR fluid infusion was given in the ED. - Per neurology, will do LP if patient has fever spikes in the next 24 hours. Integumentary #Maculopapular rash to the buttocks DDx: contact dermatitis vs allergic dermatitis Health Maintenance DVT prophylaxis: none GI prophylaxis: none Diet: Jevity Hawkins: present Lines: Peripherals Drips: Propofol, Fentanyl, IV fluids Vent: AC/VC mode CODE STATUS: FULL CODE Patient discussed with my senior resident Dr. Baer and attending, Dr. Armendariz. Diaz Coppola DO, PGY 1 Attending Provider Attestation/Addendum Patient seen and examined with the above resident, Diaz Coppola DO. I agree with the findings, assessment, and plan of care as document except for any differences below. Patient continues to struggle on telemetry robles with significant agitation. Baseline mentation remains limited secondary to his history of cerebral palsy. Patient receiving multiple agents to try to remain calm and requiring restraints. Escalation of oxygen supplementation in the previous 24 hours. Patient is not a candidate for BiPAP at this point. Patient transferred urgently to ICU for intubation/mechanical ventilation. Desaturated prior to intubation as well as into the 60s. Requiring BVM with delayed sequence intubation successful by the resident. See separate note. Patient placed on empiric antibiotics, will follow-up on culture data to help tailor regimen appropriately. Antibiotics were more than adequate to cover both pulmonary, , and mastoiditis/otitis media. Patient with right femoral CVC for adequate access. Hawkins remains in place, appreciate urology's input with ability to reduce paraphimosis. Placed on appropriate prophylaxis for stress ulcer as well as VTE. Patient's parents updated at bedside. Total critical care time: I personally spent 45 minutes for review of physiologic parameters, directing plan of care throughout the day, coordination of care with other specialties, counseling patient's family at bedside. This is exclusive of time spent teaching on staff performing separate billable procedures. Patient remains at significant risk for further morbidity and mortality warranting close monitoring and care when available in the ICU. Critical care services required for acute encephalopathy, acute hypoxic respiratory failure, acute renal failure, rhabdomyolysis, balanitis/paraphimosis, and otitis media/bilateral mastoiditis.
[2025-05-09 17:03] LABS: Alanine Aminotransferase 34 U/L (10-49); Albumin, Serum 3.3 gm/dL (3.5-5.0); Albumin/Globulin Ratio 1.7 (1.2-2.2); Alkaline Phosphatase 68 U/L (46-116); Anion Gap 14 (7-16); Aspartate Amino Transferase 90 U/L (0-34); BUN/Creatinine Ratio 11 Ratio (12-20); Bilirubin,Total 0.4 mg/dL (0.3-1.2); Blood Urea Nitrogen 9 mg/dL (9-23); Calcium 8.0 mg/dL (8.3-10.6); Calcium (Corrected) 8.6 mg/dL (8.5-10.1); Carbon Dioxide 23.1 mMol/L (20.0-31.0); Chloride 105 mMol/L (98-107); Creatinine (Component) 0.8 mg/dL (0.6-1.3); Estimated Creatinine Clearance 115.4 mL/min (>60); Globulin 2.0 gm/dL (2.3-3.5); Glucose 77 mg/dL (74-106); LDH (Lactate Dehydrogenase) 332 U/L (120-246); Osmolality,Calculated 280 (275-295); Potassium 3.4 mMol/L (3.4-5.1); Sodium 142 mMol/L (136-145); Total Protein 5.3 gm/dL (5.7-8.2); eGFR > 60 See Note
[2025-05-09 17:13] LABS: Creatine Kinase 3743 U/L (34-171)
[2025-05-09 19:10] LABS: Base Excess -2 (-3-3); HCO3 26 mEq/L (20-26); Inspired Oxygen, FIO2 50 %; O2 Saturation 92 % (91-98); PCO2 55 mmHg (32.0-48.0); PO2 70 mmHg (83-108); pH, Arterial 7.28 (7.35-7.45)
[2025-05-09 19:11] LABS: Allen Test Performed/OK; Puncture Site Left Radial
--- NOTE | 2025-05-09 19:40 | EVENTNT_ITS ---
Documentation for date of: 05/09/25 Event Note Event Note: 1914 ABG sample taken, pending results. On propofol and fentanyl RAAS-2 at this time, hold off on versed gtt as patient adequately sedated. Ordered 4g Mg sulfate x1 to replete low level 1.5 on AM draw and also bronchodilatory effect. Case discussed with radiologic technologist chief, will give additional albuterol 15mg x1 nebs over 1 hour. - Dk López M.D. PGY3 Disclaimer: Minor errors in senior asset manager may be present as this note was dictated using voice recognition software.
[2025-05-09] MEDS: Magnesium Sulfate 4 GM Ivpb 4 GM/50 ML BAG IV (19:55)
[2025-05-09] MEDS: ALBUTEROL RT 2.5 MG/0.5 ML NEBU 15 MG INH (19:56)
[2025-05-09 21:40] LABS: Vancomycin,Trough 22.7 mcg/mL (5.0-10.0)
[2025-05-09] MEDS: PROPOFOL 1,000 MG IVPB 1,000 MG/100 ML VIAL 18.432 MG IV (22:15)
--- NOTE | 2025-05-09 22:25 | PD.RESEVENT ---
Documentation for date of: 05/09/25 Event Note Event Note: Event Note: 05/09/2025: Rapid response called sometime around 8:05 for apparent agitation that had been refractory to Versed, Haldol, and Benadryl. At the time, patient had elevated BP 142/79, tachycardia 143, and tachypnea 33 and patient received Valium 5 mg x 1. Patient was examined at bedside at this time and was noted to have worsening paraphimosis which had led to increasing swelling and erythema of the glans penis from yesterday. Urology (Dr. Vargas) was consulted at this time. Patient was noted to be acutely agitated and flailing but airway/breathing/circulation intact and were deemed largely stable. SpO2 92% on 10 L oxygen mask. Will continue to monitor for any acute changes. -Gerardo Rosas, DO PGY-1 Internal Medicine [facility]
--- NOTE | 2025-05-09 22:37 | PD.RESEVENT ---
Documentation for date of: 05/09/25 Event Note Event Note: Event Note: 05/09/2025: 2nd rapid response today called sometime around 13:28 for apparent agitation that had been refractory to Versed, Haldol, and Benadryl. At the time, patient had elevated BP 132/92, tachycardia 131, and tachypnea 25 and received IV Dilaudid 1 mg, nasotracheal suction, had a bedside glucose ordered, and had an ABG ordered. The repeat ABG resulted at 13:40 and revealed: pH 7.27, pCO2 43, pO2 53, HCO3 20. At this point, ICU evaluated the patient and noted him to be extremely agitated while on oxygen mask, with audible gurgling sounds coming from the upper airway, which raised concern for potential airway compromise. Given the risk of inadequate airway protection, the decision was made to transfer the patient to the ICU for intubation and further management. -Gerardo Rosas DO PGY-1 Internal Medicine [facility]
[2025-05-10] VITALS (39 sets, daily range): BP systolic 92–118; BP diastolic 40–80; PULSE 68–105; RESP 15–22; TEMP 36.3–38; O2SAT 93–100; BMI 30.9
[2025-05-10] MEDS: RINGERS LACTATED 1000 ML 1,000 ML 999 ML IV (00:09)
[2025-05-10 00:22] LABS: Allen Test Performed/OK; Base Excess -3 (-3-3); HCO3 23 mEq/L (20-26); Inspired Oxygen, FIO2 45 %; O2 Saturation 99 % (91-98); PCO2 42 mmHg (32.0-48.0); PO2 103 mmHg (83-108); Puncture Site Left Radial; pH, Arterial 7.35 (7.35-7.45)
[2025-05-10] MEDS: RINGERS LACTATED 1000 ML 1,000 ML 100 ML IV (01:03)
[2025-05-10] MEDS: ACETAMINOPHEN IVPB 1,000 MG/100 ML VIAL 250 MG IV ×2 (01:35→19:54)
[2025-05-10] MEDS: ALBUTEROL/IPRATROPIUM (Duoneb) RT SOL 3 ML NEBU INH ×2 (02:09→22:59)
[2025-05-10] MEDS: RINGERS LACTATED 1000 ML 1,000 ML 150 ML IV ×2 (03:00→08:30)
--- NOTE | 2025-05-10 03:07 | RESP.EEG ---
EEG completed and ready for review
[2025-05-10] MEDS: RINGERS LACTATED 500 ML 500 ML 999 ML IV (03:42)
[2025-05-10] MEDS: fentaNYL 2,500 MCG/250 ML BAG 2,500 MCG/250 ML BAG 25 MCG IV (04:15)
[2025-05-10] MEDS: PROPOFOL 1,000 MG IVPB 1,000 MG/100 ML VIAL 14.336 MG IV (05:26)
[2025-05-10 05:28] LABS: Basophils # (Auto) 0.0 Thou/mm3 (0.0-0.2); Basophils % (Auto) 0 % (0-2.5); Eosinophils # (Auto) 0.2 Thou/mm3 (0.0-0.5); Eosinophils % (Auto) 3 % (0-10); Hematocrit 25.1 % (41.0-53.0); Immature Granulocytes Auto 0.03 Thou/mm3 (0.00-0.00); Lymphocytes # (Auto) 2.1 Thou/mm3 (1.0-4.8); Lymphocytes % (Auto) 24 % (10-50); Mean Corpuscular HGB Conc 33.1 g/dl (31.0-37.0); Mean Corpuscular Hemoglobin 28.5 pg (25.0-35.0); Mean Corpuscular Volume 86 fL (80-100); Monocytes # (Auto) 1.3 Thou/mm3 (0.0-0.8); Monocytes % (Auto) 15 % (0-12); Neutrophils # (Auto) 5.1 Thou/mm3 (1.8-7.7); Neutrophils % (Auto) 58 % (37-80); Nucleated Red Blood Cell # 0.00 Thou/mm3 (0.00-0.00); Nucleated Red Blood Cell % 0 /100 WBC (0); Platelet Count 133 Thou/mm3 (140-440); RDW Standard Deviation 44.1 fL (35.1-43.9); Red Blood Count 2.91 Miln/mm3 (4.50-5.90); White Blood Count 8.8 Thou/mm3 (3.8-10.6)
[2025-05-10 05:34] LABS: INR 1.0 (0.9-1.3); Partial Thromboplastin Time 31.0 Seconds (22.0-36.0); Prothrombin Time 10.3 Seconds (9.0-12.2)
[2025-05-10 05:57] LABS: Hemoglobin 8.3 g/dL (13.5-16.0)
[2025-05-10 06:00] LABS: Alanine Aminotransferase 25 U/L (10-49); Albumin, Serum 2.7 gm/dL (3.5-5.0); Albumin/Globulin Ratio 1.5 (1.2-2.2); Alkaline Phosphatase 59 U/L (46-116); Anion Gap 10 (7-16); Aspartate Amino Transferase 49 U/L (0-34); BUN/Creatinine Ratio 11 Ratio (12-20); Bilirubin,Total 0.3 mg/dL (0.3-1.2); Blood Urea Nitrogen 13 mg/dL (9-23); Calcium 7.7 mg/dL (8.3-10.6); Calcium (Corrected) 8.7 mg/dL (8.5-10.1); Carbon Dioxide 25.7 mMol/L (20.0-31.0); Chloride 105 mMol/L (98-107); Creatinine (Component) 1.2 mg/dL (0.6-1.3); Estimated Creatinine Clearance 76.9 mL/min (>60); Globulin 1.8 gm/dL (2.3-3.5); Glucose 137 mg/dL (74-106); Magnesium 3.0 mg/dL (1.6-2.6); Osmolality,Calculated 283 (275-295); Phosphorous 2.9 mg/dL (2.4-5.1); Potassium 3.2 mMol/L (3.4-5.1); Sodium 141 mMol/L (136-145); Total Protein 4.5 gm/dL (5.7-8.2); eGFR > 60 See Note
--- NOTE | 2025-05-10 06:00 | PC.NURSE ---
MD López notified of bladder scan and patient still not having urine output since removal of hawkins
--- NOTE | 2025-05-10 06:18 | EVENTNT_ITS ---
Documentation for date of: 05/10/25 Event Note Event Note: 0600 Patient did very well overnight post Mg sulfate + Albuterol treatment 0000 ABG : pH improved to 7.35 and Co2 42, bicarb on AM draw 25.7 Peak pressures trending 22-26, at PEEP 10 Propofol was titrated down overnight as MAP dropped to 60-61 around 2:30 am Ordered 1L bolus LR x1 in addition to maintenance @ 100cc/h by day team. MAP improved to 65+ Of note, patient continues to retain urine. Osborne was replaced with a QiVi as per Urology recommendation. But he has not had any urine output. Bladder scan at 0600 shows 295 in bladder Recommend to follow up with Urology to confirm if we can straight cath the patient. Will pass on to Day team. Plan of care discussed with attending Santi Muller M.D. PGY3 Disclaimer: Minor errors in medical transcriptionist may be present as this note was dictated using voice recognition software.
[2025-05-10] MEDS: POTASSIUM CHL 10 mEq IVPB 10 MEQ/100 ML BAG 100 MEQ IV ×4 (06:45→10:50)
[2025-05-10] MEDS: ACYCLOVIR INJ 640 MG in SODIUM CHLORIDE 0.9% 100 ML 98.947 MG IV ×3 (08:26→21:46)
[2025-05-10] MEDS: cefTRIAXone 2 GM in SODIUM CHLORIDE 0.9% (Popper) 50 ML IV ×2 (08:28→21:46)
[2025-05-10] MEDS: levETIRAcetam INJ 100 MG/ML VIAL 5ML 800 MG IV ×2 (08:29→21:46)
[2025-05-10] MEDS: OFLOXACIN OP SOL 0.3% 5 ML BTL 5 DROP BOTH EARS ×2 (09:45→21:47)
[2025-05-10] MEDS: VANCOMYCIN/D5W 1,250 MG IVPB 250 ML 120 MG IV ×2 (09:51→21:47)
--- NOTE | 2025-05-10 10:29 | PC.DIETICIAN ---
Nutrition prescription 1. Jevity 1.5 at 40 ml/hr x 24 hrs via PEG tube by pump (goal). If no IV fluids, water flushes of 35 ml/hr (or per MD). 2. ProStat 30ml BID via PEG tube (mix with water).
[2025-05-10] MEDS: TAMSULOSIN HCL 0.4 MG CAPSULE GT (12:53)
--- NOTE | 2025-05-10 13:14 | ESPR_ITS ---
<Statement entered by Ronnell Orozco MD - 05/10/25 20:48> I discussed and supervised with the creative services intern physician who took care of this patient. I personally saw and examined the patient. I agree with most of the assessment and plan. Disclaimer: Despite multiple revisions, due to the dictation software being used, the document bellow may not be free of grammatical errors including phonetic/typographic errors. However, this does not deter from our commitment to providing health care in the patient's best interest in mind. Plan of care discussed with attending Physician Dr. Marcello Orozco MD PGY-3 Documentation for date of: 05/10/25 Subjective Subjective Interval history: 24-year-old male with a past medical history significant for cerebral palsy, asthma, seizure disorder, chronic mastoiditis (previously treated with tympanostomy tube placement for recurrent otitis media, now removed), recurrent pneumonia, and chronic PEG tube dependence, presented to the ED on 05/08/2025 with a fever lasting over 24 hours. The patient also had a witnessed seizure episode lasting 5-10 seconds, characterized by tonic-clonic activity confined to the left side of the body. ED Course: -Initial vitals were: BP 122/84, HR 176, RR 26, T 105F, O2 sat 96% on room air. -Labs significant for: CBC showed a WBC of 16.3. CMP showed Na 148, K 5.2, Cl 107, bicarbonate 18.7, anion gap 22, creatinine 1.3 (baseline 0.7), lactic acid 3.2, alkaline phosphatase 120, LDH 352, total CK 1048, procalcitonin: 0.14. Urinalysis negative. Influenza A/B testing was negative. -Imaging included: EKG showed supraventricular tachycardia of HR [address] and T-wave abnormality. CXR showed no aspiration pneumonia but was noted to be of poor inspiratory effort. CT CAP w/o contrast seemed to show no gross infiltrates or other notable findings but was noted to be severely degraded by patient motion. -In the ED, patient was given acetaminophen 975 mg, ceftriaxone 1 gram IV, midazolam 2 mg IV x1, albuterol 2.5 mg, Zosyn 3.375 gram, 2 L NS fluid infusion, and 1 L LR fluid infusion. In the ED, the patient was agitated and pulled out his IV. Attempts at peripheral access were unsuccessful, and a right femoral central line was placed. Telemetry Course: Patient was admitted to telemetry for further workup and management of sepsis of unknown source, with concern for meningitis. Empiric broad-spectrum antibiotic and antiviral therapy were started, consisting of ceftriaxone 2g IV twice daily, vancomycin (pharmacy to dose), ampicillin, and acyclovir. Neurology was consulted. CT of the orbit, sella, and inner ear was ordered given the patient?s history of acute mastoiditis, which showed severe bilateral chronic mastoiditis, bilateral otitis externa, bilateral otitis media, and bilateral cholesteatomas in the attics. CT head was also performed and was negative for acute hemorrhage, mass effect, or midline shift. Findings included prominent sphenoid, ethmoid, and maxillary antral sinusitis, bilateral chronic mastoiditis, bilateral otitis media, and opacification in the bilateral attics. For the patient?s seizures, his home medications of valproic acid and levetiracetam were restarted. Orders for midazolam and Haldol were placed as needed for breakthrough seizures and agitation. An ice pack was ordered for his paraphimosis. Infectious disease was also consulted. Primary team consulted ICU team. On 05/09, two rapid responses were initiated due to the patient?s escalating agitation and anxiety. Patient appeared to be in significant pain from his paraphimosis. The primary team consulted the ICU for further management, as the patient had already received diazepam, haldol, versed, and dilaudid earlier that morning, with inadequate relief. Additionally, there was concern over a decline in his pO2 levels. The initial ABG at 11:56 showed: pH 7.40, pCO2 40, pO2 131, HCO3 25. A repeat ABG at 13:40 revealed: pH 7.27, pCO2 43, pO2 53, HCO3 20. Upon evaluation by the ICU team, the patient was noted to be extremely agitated and wearing an oxygen mask, with audible gurgling sounds coming from the upper airway, raising concern for potential airway compromise. Given the risk of inadequate airway protection, the decision was made to transfer the patient to the ICU for intubation and further management. In the ICU, the patient was intubated. Urology, Dr. Vargas, was consulted earlier in the day. He was able to successfully perform a reduction of the paraphimosis. Interval History: 05/10/2025: Patient remained sedated with propofol and fentanyl throughout the night, maintaining adequate sedation levels. Around 2 AM, the propofol dose was reduced due to MAP in the 60s. 1L of LR was administered on top of the ongoing IV maintenance fluids at 100cc/hr. Following this, the MAP remained stable above 65. At 6:50 PM on 05/09, an ABG revealed a pH of 7.28, pCO2 of 55, and pO2 of 70, indicative of respiratory acidosis. Patient was given 5 grams of magnesium and 15 mg of albuterol over the course of an hour to promote bronchodilation. Magnesium also needed to be repleted. A repeat ABG showed normalization of the respiratory parameters. Patient's Hawkins catheter was removed and replaced with a QiVi catheter overnight per the patient's father?s request. However, the patient developed urinary retention. A bladder scan performed at 6 AM showed 295cc of retained urine, and a subsequent scan in the afternoon revealed 439cc. Exam Vital Signs Temp Pulse Resp BP Pulse Ox O2 Del Method O2 Flow Rate 98.6 F 85 20 115/59 L 98 Mechanical Ventilation 50 05/10/25 08:00 05/10/25 10:37 05/10/25 09:00 05/10/25 10:37 05/10/25 10:37 05/09/25 18:01 05/09/25 18:01 FiO2 40 05/10/25 10:37 Narrative Exam General: sedated, nonverbal at baseline, not in acute distress. Skin: Rash near buttock area. Head: Normocephalic, atraumatic. Eyes: PERRL. Anicteric. Mouth/Throat: Poor dentition. Oral mucosa moist. No obvious lesions in oropharynx. Cardiovascular: Tachycardic rate and normal rhythm, no murmur. Respiratory: Tachypneic. No crackles, no wheezing. No accessory muscle use. Gastrointestinal: PEG tube in place. Soft, non-distended, no guarding or rebound tenderness. Genitourinary: Paraphimosis of penis. Extremities: Contracted. No edema, cyanosis, mottling, clubbing. 2+ radial pulse bilaterally, 2+ posterior tibial pulse bilaterally. Objective Labs 05/15/25 04:25 05/15/25 04:25 Labs: Laboratory Results - last 24 hr 05/08/25 05/09/25 05/09/25 12:10 13:40 14:20 WBC RBC Hgb Hct MCV MCH MCHC RDW Std Deviation Plt Count Neut % (Auto) Lymph % (Auto) [place] % (Auto) Eos % (Auto) Baso % (Auto) Neut # (Auto) Lymph # (Auto) [place] # (Auto) Eos # (Auto) Baso # (Auto) Immature Gran # (Auto) Absolute Nucleated RBC Immature Gran % Nucleated RBC % PT INR APTT Puncture Site Right Radial ABG pH 7.27 L D ABG pCO2 43 ABG pO2 53 L* D ABG HCO3 20 ABG O2 Saturation 81 L ABG Base Excess -7 L Oxygen Liter Flow 10 FiO2 Sodium Potassium Chloride Carbon Dioxide Anion Gap BUN Creatinine Estim Creat Clear Calc eGFR BUN/Creatinine Ratio Glucose Calculated Osmolality Lactic Acid Calcium Corrected Calcium Phosphorus Magnesium Total Bilirubin AST ALT Alkaline Phosphatase Lactate Dehydrogenase Total Creatine Kinase Total Protein Albumin Globulin Albumin/Globulin Ratio Vancomycin Trough Coccidioides IgG Ab Negative RSV Rapid Negative Blood Type Antibody Screen Blood Bank Wristband ID 05/09/25 05/09/25 05/09/25 16:27 18:50 21:11 WBC RBC Hgb Hct MCV MCH MCHC RDW Std Deviation Plt Count Neut % (Auto) Lymph % (Auto) [place] % (Auto) Eos % (Auto) Baso % (Auto) Neut # (Auto) Lymph # (Auto) [place] # (Auto) Eos # (Auto) Baso # (Auto) Immature Gran # (Auto) Absolute Nucleated RBC Immature Gran % Nucleated RBC % PT INR APTT Puncture Site Left Radial ABG pH 7.28 L ABG pCO2 55 H D ABG pO2 70 L ABG HCO3 26 ABG O2 Saturation 92 ABG Base Excess -2 Oxygen Liter Flow FiO2 50 Sodium 142 Potassium 3.4 Chloride 105 Carbon Dioxide 23.1 Anion Gap 14 BUN 9 Creatinine 0.8 Estim Creat Clear Calc 115.4 eGFR > 60 BUN/Creatinine Ratio 11 L Glucose 77 Calculated Osmolality 280 Lactic Acid 1.3 Calcium 8.0 L Corrected Calcium 8.6 Phosphorus Magnesium Total Bilirubin 0.4 AST 90 H ALT 34 Alkaline Phosphatase 68 Lactate Dehydrogenase 332 H Total Creatine Kinase 3743 H D Total Protein 5.3 L Albumin 3.3 L D Globulin 2.0 L Albumin/Globulin Ratio 1.7 Vancomycin Trough 22.7 H* Coccidioides IgG Ab RSV Rapid Blood Type Antibody Screen Blood Bank Wristband ID 05/10/25 05/10/25 00:14 04:20 WBC 8.8 RBC 2.91 L Hgb 8.3 L D Hct 25.1 L MCV 86 MCH 28.5 MCHC 33.1 RDW Std Deviation 44.1 H Plt Count 133 L D Neut % (Auto) 58 Lymph % (Auto) 24 [place] % (Auto) 15 H Eos % (Auto) 3 Baso % (Auto) 0 Neut # (Auto) 5.1 Lymph # (Auto) 2.1 [place] # (Auto) 1.3 H Eos # (Auto) 0.2 Baso # (Auto) 0.0 Immature Gran # (Auto) 0.03 H Absolute Nucleated RBC 0.00 Immature Gran % 0 Nucleated RBC % 0 PT 10.3 INR 1.0 APTT 31.0 Puncture Site Left Radial ABG pH 7.35 ABG pCO2 42 D ABG pO2 103 D ABG HCO3 23 ABG O2 Saturation 99 H ABG Base Excess -3 Oxygen Liter Flow FiO2 45 Sodium 141 Potassium 3.2 L Chloride 105 Carbon Dioxide 25.7 Anion Gap 10 BUN 13 Creatinine 1.2 Estim Creat Clear Calc 76.9 eGFR > 60 BUN/Creatinine Ratio 11 L Glucose 137 H D Calculated Osmolality 283 Lactic Acid Calcium 7.7 L Corrected Calcium 8.7 Phosphorus 2.9 Magnesium 3.0 H Total Bilirubin 0.3 AST 49 H ALT 25 Alkaline Phosphatase 59 Lactate Dehydrogenase Total Creatine Kinase Total Protein 4.5 L Albumin 2.7 L D Globulin 1.8 L Albumin/Globulin Ratio 1.5 Vancomycin Trough Coccidioides IgG Ab RSV Rapid Blood Type O Positive Antibody Screen NEGATIVE Blood Bank Wristband ID Yes ABG Interpretation ABG results: 05/09/25 05/09/25 05/09/25 11:56 13:40 18:50 ABG pH 7.40 7.27 L D 7.28 L ABG pCO2 40 43 55 H D ABG pO2 131 H 53 L* D 70 L ABG HCO3 25 20 26 ABG O2 Saturation 99 H 81 L 92 ABG Base Excess 0 -7 L -2 05/10/25 00:14 ABG pH 7.35 ABG pCO2 42 D ABG pO2 103 D ABG HCO3 23 ABG O2 Saturation 99 H ABG Base Excess -3 Quality Measures Quality Measures VTE prophylaxis (Lovenox) and sepsis Current suspected stage: sepsis Possible source: pulmonary Blood cultures ordered: yes Antibiotic ordered: Yes Assessment & Plan Assessment Current Active Medications: Generic Name Dose Route Start Last Admin Trade Name Freq PRN Reason Stop Dose Admin Albuterol/Ipratropium 3 ml 05/09/25 18:19 05/10/25 02:09 Albuterol/Ipratropium (Duoneb) Rt Racquel 3 Ml Nebu INH 06/08/25 18:18 3 ml Q2HR PRN Administration SHORTNESS OF BREATH OR WHEEZE Ceftriaxone Sodium 2 gm/ 50 mls @ 100 mls/hr 05/08/25 11:20 05/10/25 08:28 Sodium Chloride IV 05/15/25 11:19 100 mls/hr Q12HR KYA Administration Propofol 1,000 mg in 100 mls @ 2.048 mls/hr 05/09/25 15:42 05/10/25 05:26 Diprivan Ivpb IV 06/08/25 15:41 35 mcg/kg/min .Q24H PRN 14.336 mls/hr PER PROTOCOL Administration Protocol 5 MCG/KG/MIN Fentanyl Citrate 2,500 mcg in 250 mls @ 2.5 mls/hr 05/09/25 16:02 05/10/25 09:36 Sublimaze Inj 2,500 Mcg/250 Ml Bag IV 05/14/25 16:01 150 mcg/hr .Q24H PRN 15 mls/hr PER PROTOCOL Titration Protocol 25 MCG/HR Valproic Acid 187.5 mg/ Sodium 51.875 mls @ 51.875 mls/hr 05/09/25 18:00 05/10/25 12:53 Chloride IV 06/07/25 17:59 51.875 mls/hr Q6HR KYA Administration Protocol Midazolam HCl 100 mg in 100 mls @ 1 mls/hr 05/09/25 18:43 Versed Pf Inj In Ns Premix IV 05/14/25 18:42 .Q24H PRN PER PROTOCOL Protocol 1 MG/HR Acetaminophen 1,000 mg in 100 mls @ 250 mls/hr 05/10/25 01:26 05/10/25 01:35 Ofirmev Inj IV 05/10/25 18:23 250 mls/hr Q6HR PRN Administration Temp > 99.9 Lactated Ringer's 1,000 mls @ 150 mls/hr 05/10/25 02:25 05/10/25 08:30 Lactated Ringers IV 06/09/25 02:23 150 mls/hr .Q6H40M KYA Administration Acyclovir Sodium 640 mg/ 112.8 mls @ 98.947 mls/hr 05/10/25 06:45 05/10/25 08:26 Sodium Chloride IV 05/15/25 06:44 98.947 mls/hr Q8HR KYA Administration Vancomycin HCl/Dextrose 250 mls @ 120 mls/hr 05/10/25 10:00 05/10/25 09:51 Vancomycin/D5w 1,250 Mg Ivpb IV 05/17/25 09:59 120 mls/hr Q12H KYA Administration Levetiracetam 800 mg 05/08/25 21:00 05/10/25 08:29 Levetiracetam Inj 100 Mg/Ml Vial 5ml IV 06/07/25 20:59 800 mg BID KYA Administration Ofloxacin 5 drop 05/09/25 10:15 05/10/25 09:45 Ofloxacin Op Racquel 0.3% 5 Ml Btl BOTH EARS 05/18/25 10:14 5 drops BID KYA Administration Ondansetron HCl 4 mg 05/08/25 11:36 Ondansetron Inj 2 Mg/Ml Inj 2 Ml IVP 06/07/25 11:35 Q6HR PRN NAUSEA OR VOMITING Protocol Pharmacy Consult 1 each 05/08/25 11:30 Vancomycin Pharmacy To Dose 1 Each Each IV 06/07/25 11:29 QDAY PRN CONSULT Pharmacy Consult 1 each 05/08/25 16:12 Pharmacy To Consult Patient XX 06/07/25 16:11 PRN PRN CONSULT Tamsulosin HCl 0.4 mg 05/10/25 11:45 05/10/25 12:53 Tamsulosin Hcl 0.4 Mg Capsule GT 06/09/25 11:44 0.4 mg QDAY KYA Administration Protocol Plan 24-year-old male with cerebral palsy, asthma, seizure disorder, chronic mastoiditis, recurrent pneumonia, and chronic PEG tube dependence presented with fever and seizure, was admitted for sepsis workup, and later transferred to the ICU for intubation due to concerns about airway protection. Neurology #Breakthrough tonic clonic seizure #History of seizures #Cerebral palsy DDx: likely secondary to sepsis vs electrolyte imbalances vs medication non- compliance or inadequate medication dosing vs hypoglycemia vs dehydration. Diagnosis: - Temperature of 105F on admission. - Sodium 148 and potassium 5.2 on admission. - EEG pending. Treatment Plan: - Continue valproic acid 187.5 mg Q6H. - Continue levetiracetam 800mg BID. - Adjust seizure medications if breakthrough seizures persist. - Seizure precautions. - Aspiration precautions. - Repeat CBC, electrolytes, renal function, and liver function tests to monitor for any metabolic derangements contributing to seizures. #Chemical sedation #Agitation Patient was extremely agitated before ICU admission, likely due to pain from paraphimosis. Diagnostic Test: - 05/10 AM: Patient's RASS was -4 : no response to voice, but movement to physical stimulation. Treatment Plan: - Continue sedation on propofol and fentanyl to maintain RASS -2 while intubated. - Consider midazolam gtt if patient not adequately sedated. - Daily sedation holiday as appropriate for timely weaning of sedation. Cardiovascular #no active problems Respiratory #Intubated and mechanically ventilated for airway protection #Acute hypoxic respiratory failure Diagnostic Test: - ABG 05/09 at 11:56: pH 7.40, pCO2 40, pO2 131, HCO3 25. - ABG 05/09 at 13:40: pH 7.27, pCO2 43, pO2 53, HCO3 20. - ABG 05/09 at 18:50: pH 7.28, pCO2 55, pO2 70, HCO3 26. - ABG 05/10 at 00:14: pH 7.35, pCO2 41, pO2 103, HCO3 23. Treatment Plan: - A/CMV PRVC: VT 370/RR 20/PEEP 10/FiO2 50/Ppeak 27.3/Pplateau 23.2. - Monitor ABG and adjust ventilator settings accordingly. - Perform SBTs, when appropriate. #Bronchospasm #History of asthma Diagnostic Test: - Although the patient has a history of asthma, the bronchospasm is most likely from the irritant effect of blood in the airway. A small amount of blood, which was likely from dryness of the nasal mucosa, was suctioned out during intubation. Treatment Plan: - Magnesium for bronchodilatory effect as needed. - Albuterol as needed. GI, , F/E/N #Acute urinary retention Diagnostic Test - Bladder scan at 6AM on 05/10: 295 cc. - Bladder scan at noon on 05/10: 495 cc. - Hawkins was reinserted on 05/10 with family's permission. After reinsertion of the Hawkins catheter, 700cc of brown urine was drained. Treatment Plan - Reinsert hawkins catheter. - Tamsulosin 0.4 mg GT. - Monitor urine output. #Paraphimosis (resolved) #Balanitis Diagnostic Test: - Edema and tenderness of the glans penis. - Swelling of the distal retracted foreskin. - Constricting band of tissue proximal to the head of the penis at the coronal sulcus. - Hawkins was removed on 05/09 and transitioned to Oivi external urinary catheter. Discussed with family about the need to reinsert hawkins due to the patient's acute urinary retention. Family were in agreement with this plan. Hawkins was reinserted on 05/10 due to urinary retention. - S/p reduction of the paraphimosis by Dr. Vargas on 05/09. Treatment Plan: - Control patient's pain with sedation. - Monitor urine output . - Remove hawkins when appropriate. #Chronic PEG tube dependence Treatment Plan: - Jevity 1.5 at 40 ml/hr x 24 hrs via PEG tube by pump (goal). If no IV fluids, water flushes of 35 ml/hr. - ProStat 30ml BID via PEG tube. - Appreciate financial director recommendations. - If increase profolol dose, will have to decrease feeds due to infused lipid emulsion and can increase triglycerides - Triglyceride level ordered for AM labs. #Hepatitis (resolving) DDx: muscle injury vs hemolytic anemia vs myocarditis. - Muscle injury/rhabdomyolysis - supported by rising CK and normal ALT. - Hemolytic anemia - possible source of AST from RBC breakdown. - Myocarditis - les likely given normal troponin. Diagnostic Test: - AST 49 --> 106 --> 90 --> 49. - ALT within normal range. - CK 1048 --> 3743. - LDH 352 --> 332. - Troponin <0.002. Treatment Plan: - IV fluids. - Daily BMP. - Avoid hepatotoxics. - Repeat CK level ordered for AM labs. #Hypoalbuminemia DDx: acute hepatitis vs nephrotic syndrome vs sepsis vs malnutrition vs diluational. Diagnostic Test: - UA had urine proteins 1+. - Albumin 4.9 --> 4.0 --> 3.8 --> 3.3 --> 2.7. - Hgb and WBC also decreased with albumin, likely diluational. Treatment Plan: - Monitor LFTs, INR, and bilirubin. - Resume PEG tube feeds per financial director recommendations. Renal #Acute kidney injury DDx: hypotension, dehydration, or vasodilation from sepsis. Diagnositc Test: - Creatinine 1.3 (baseline: 0.7) -> 0.8 --> 1.2. Treatment Plan: - Continue with free water flushes. - Daily renal panel to trend BUN, Cr, and electrolytes. - Avoid nephrotoxins. - Renally dose meds as appropriate. - Strict I&Os, monitor urine output closely. - Monitor for signs of volume overload or uremic symptoms. #Anion Gap Metabolic Acidosis (resolved) #Lactic acidosis (resolved) DDx: seizures vs sepsis vs acute kidney injury vs hypoperfusion. Likely from seizures as patient has no signs of systemic hypoperfusion such as skin mottling, decreased cap refills. Diagnostic Test: - Admission anion gap 22, lactic acid 16.0, bicarbonate 18.7. Treatment Plan: - Continue to treat sepsis and seizures. #Rhabdomyolysis DDx: seizures vs hyperthermia vs infectious myositis. Diagnostic Test: - CK 1048 --> 3743. - Temp 105F. - Witnessed seizure episode lasting 5-10 seconds, characterized by tonic-clonic activity prior to admission. - Potassium 5.2 on admission. Treatment Plan: - Continue free water flushes. - Monitor urine output. - Correct electrolyte abnormalities. - Control seizures with valproic acid and levetiracetam. - Acetaminophen as needed for fevers. - Monitor renal panel. - Repeat CK level ordered for AM labs. Heme #Normocytic Anemia #Hematoma on left forearm DDx: Anemia of Inflammation vs dilutional anemia vs drug-induced anemia. Likely dilutional anemia since patient had normal hemoglobin on admission and from IV fluids per sepsis protocol. Diagnostic Test: - Hemoglobin 14.0 --> 12.0 --> 10.5 --> 8.3. Treatment Plan: - Monitor H&H. - Type and screen. - Transfusing for Hgb <7 or symptomatic. Endo #no active problems ID #Sepsis #Leukocytosis #Bilateral chronic mastoiditis #Sinusitis #Bilateral otitis media #Bilateral otitis externa DDx: meningitis vs acute on chronic mastoiditis vs acute febrile illness. Diagnostic Test: - History of chronic mastoiditis. - CT Head 05/08: prominent sphenoid ethmoid maxillary antral sinusitis, bilateral chronic mastoiditis, bilateral otitis media. - CT Orbit Sella Inner 05/08: severe bilateral chronic mastoiditis, bilateral otitis externa and otitis media, bilateral cholesteatomas in the attics. - Met SIRS criteria on admission: T 105F, HR 176, RR 26, PaCO2 26, WBC 16.3. - Lactic acid 16.0 on admission. - Source of infection: not yet identified. - UA negative. - Blood culture negative. Treatment Plan: - Continue IV vancomycin dosed by pharmacy [05/08--] - Continue IV rocephin 2 gm q12HR [05/08--] - Continue IV acyclovir 700 mg [05/08--] - Discontinued IV ampicillin 2 gm q4HR [05/08-05/09] as patient not in the age group at risk for Listeria infection. - Fluids: 30mL/kg -- 2 L NS fluid infusion and 1 L LR fluid infusion was given in the ED (completed). - Plan for LP by neurology today (05/10). - Plan to consult patient's Otolaryngology, Dr. Jacky Cuadra. Integumentary #Maculopapular rash to the buttocks DDx: contact dermatitis vs allergic dermatitis Treatment Plan - Patient no longer has diaper on as hawkins is in place. Anticipate rash to improve. Health Maintenance DVT prophylaxis: none GI prophylaxis: none Diet: Jevity Hawkins: present Lines: Peripherals Drips: Propofol, Fentanyl Vent: AC/VC mode CODE STATUS: FULL CODE Patient discussed with my senior resident Dr. Orozco and attending, Dr. Armendariz. Diaz Coppola DO, PGY 1 Attending Provider Attestation/Addendum Patient seen and examined with the above resident, Diaz Coppola DO. I agree with the findings, assessment, and plan of care as document except for any differences below. Difficult to wean from sedation due to agitation. Adjustments to regimen to minimize BZs, monitor CK and TG while on propofol. Gas exchange and pulmonary mechanics remain stable. Mostly oral secretions though some in ETT as well. Monitor LFTs while on antibiotics, follow up cultures to adjust regimen. LP planned for today, will stop regimen if negative for meningitis and cover for otitis and mastoidisitis. Renal function has worsened. Balanitis improving, however urinary retention with need to discuss placement of hawkins for retention with family. Noted AE regimen in place with no seizure activity. Total critical care time: I personally spent 40 minutes for review of physiologic parameters, directing plan of care throughout the day, coordination of care with other subspecialties, counseling patient's family at bedside. This is exclusive of time spent teaching on staff performing separate billable procedures. Patient remains at significant risk for further morbidity and mortality warranting close monitoring and care when available in the ICU. Critical care services required for acute encephalopathy, acute hypoxic respiratory failure, acute renal failure, rhabdomyolysis, balanitis/paraphimosis, and otitis externa/bilateral mastoiditis.
[2025-05-10] MEDS: PROPOFOL 1,000 MG IVPB 1,000 MG/100 ML VIAL 12.288 MG IV (13:32)
--- NOTE | 2025-05-10 14:00 | EVENTNT_ITS ---
Documentation for date of: 05/10/25 Event Note Event Note: Discussion with Family Time: Approximately 1:30 PM Location: Patient?s Room, 255. Attendees: Dr. Baer, Maura Cook RN, [facility] (medical service representative), Patient?s Mother and Father. The parents were informed that following the removal of the Hawkins catheter and its replacement with the QiVi catheter, the patient has been experiencing urinary retention. While the urologist had initially approved the removal of the Hawkins catheter, as it is generally recommended to remove it as soon as possible, the patient?s current retention necessitates the reinsertion of the Hawkins catheter. Emphasized to patient's family that without the hawkins catheter, patient will continue to retain urine and will likely cause damage to the kidneys. The likely causes of the urinary retention were discussed with the parents, including the effects of the patient's medications or balanitis secondary to paraphimosis. It was emphasized that the Hawkins catheter is a temporary measure and will be removed once the patient's condition stabilizes and the infection resolves. The father raised concerns regarding the patient?s increased swelling today . It was explained that the swelling may be related to the urinary retention, as well as the fluids being administered through medication. The father acknowledged and expressed understanding of the explanation provided. Additionally, the parents were informed that the patient is currently experiencing an infection. The ICU team is considering bilateral chronic mastoiditis (confirmed on head CT), worsening of his bilateral otitis media or otitis externa, or meningitis as potential causes. The family was asked about the patient's history with tympanostomy tube placement and removal. The parents clarified that the tubes were removed one year ago by Dr. Mcconnell, and the patient now sees an ENT specialist in [place]. The ICU team requested the contact information for the ENT doctor so that they may reach out for guidance on whether the patient's ear condition is worsening. The parents agreed and provided information - Dr. Jacky Cuadra [phone]. The parents provided verbal consent for the reinsertion of the Hawkins catheter and requested that their son be kept as comfortable and pain-free as possible during the procedure. They were also informed that the patient would undergo a lumbar puncture later today. The parents were given the opportunity to ask any additional questions or express concerns. All questions were answered to their satisfaction, and the parents verbally acknowledged their understanding of the information provided. 2:46PM Spoke with Antionette at [facility] in [place]. Patient had one visit with Dr. Jacky Cuadra in February 2025. Patient was referred to Dr. Cuadra by the [facility] in [place]. Exam findings at the visit included purulent drainage in the left ear, while the right ear appeared normal. Dr. Cuadra advised follow-up in three months and keeping ears dry. Antionette will check to see if Dr. Cuadra is available today to further discuss patient's case. [email or web address] Plan of care discussed with senior residents attending Dr Armendariz. - Diaz Coppola DO, PGY-1
--- NOTE | 2025-05-10 15:02 | ESCONSULT_ITS ---
RE: CATARINA CARREON : 2000 DATE OF CONSULTATION: 05/09/2025 REASON FOR CONSULTATION: Paraphimosis leading to swelling of the foreskin and constricting blood flow to the glans penis. REASON FOR ADMISSION TO THE HOSPITAL: 1. Sepsis of unclear etiology, likely UPHOLSTERY TRIMMER origin, meningitis rule out. 2. Breakthrough seizures secondary to sepsis. 3. History of chronic mastoiditis, status post right tympanostomy tube removal on . 4. Cerebral palsy. 5. Hyperkalemia. 6. Heart murmur secondary to lactic acidosis, resolved. 7. Paraphimosis. 8. Maculopapular rash to the buttocks. HISTORY OF PRESENT ILLNESS: This is a 24-year-old gentleman. He was admitted in the hospital through the emergency room. The patient had a placement of Osborne catheter in the emergency room and nurses noticed he had swelling of the foreskin. No information from the patient is available. He is nonverbal and he is in the ICU. All the information I obtained is through the review of his chart. The patient has chronic PEG tube and asthma. Past medical history, family history, review of the system, personal history, please refer to patient's history form dated . NARRATIVE EXAMINATION: GENERAL: The patient is nonverbal. He is appeared to be agitated. Skin rash near the buttock area. HEAD: Normocephalic. CARDIOVASCULAR SYSTEM: Tachycardia. GENITALIA: He is paraphimosis. VARIOUS LABORATORIES: WBC is 16.3, hemoglobin 14.0, and HCT 44.7. His serum sodium is 148, potassium is 5.2, chloride is 107, BUN is 16, and creatinine is 1.3. PLAN: Under sedation, I reduced his paraphimosis. His swelling of the foreskin is much better. Recommendation is make sure his foreskin is not retracted again causing strangulation of blood supply to the glans penis. This was explained to resident and the nurse. DT: 16:49:07 TT: 17:48:00 Ref: [id number] - TID: [id number]
[2025-05-10] MEDS: LIDOCAINE JELLY 2% (Urojet) 10 ML TUBE TOP (15:24)
[2025-05-10] MEDS: fentaNYL CIT INJ 50 mCg/ML AMP 2ML 100 MCG IVP (15:24)
--- NOTE | 2025-05-10 15:30 | PC.SS ---
Addendum entered and electronically signed by URIAH Castro 05/11/25 12:23: TECHNICAL SALES ADVISOR confirmed that images will are unable to be submitted to ENT via e-mail. TECHNICAL SALES ADVISOR updated resident. Original Note: TECHNICAL SALES ADVISOR informed by ICU resident need to submit images to Dr. Khalif RODRIGUEZ [place]; on behalf of the patient.? Dr. Cuadra has provided services to the patient.? Images to be sent to the following e-mail address: [email or web address] TECHNICAL SALES ADVISOR contacted radiology staff to assist with submitting images via e-mail.? Response is pending.? TECHNICAL SALES ADVISOR updated ICU residents.?
[2025-05-10] MEDS: fentaNYL 2,500 MCG/250 ML BAG 2,500 MCG/250 ML BAG 15 MCG IV (16:57)
--- NOTE | 2025-05-10 18:08 | PD.RESPRO ---
Documentation for date of: 05/10/25 Subjective Subjective Interval history: Patient examined at bedside in ICU. Vitals are stable, leukocytosis improving 8.8, creatinine elevated 1.2. Overnight patient had temperature 100.4. Blood, urine, sputum cultures have been negative. Osborne was removed yesterday as per urology recommendation. However noted that he is now retaining urine as noticed on bladder scan. Plan to reinsert Osborne. Plan for bedside LP. Cultures and stain for bacterial, fungal, viral etiologies. Exam Vital Signs Temp Pulse Resp BP Pulse Ox O2 Del Method O2 Flow Rate 99.0 F 85 17 117/66 93 L Mechanical Ventilation 50 05/10/25 16:00 05/10/25 17:00 05/10/25 17:00 05/10/25 17:00 05/10/25 17:00 05/09/25 18:01 05/09/25 18:01 FiO2 40 05/10/25 16:00 Narrative Exam General: sedated, intubated, on MV HEENT: NCAT, No JVD noted. Mucosa moist. pinpoint Pupils are equal and reactive to light bilaterally Cardiovascular: Normal S1 and S2. Regular rate and rhythm. Respiratory: Lungs are clear to auscultation bilaterally. No wheezing or crackles heard. Abdomen: Soft, nontender, not distended, normal bowel sounds. PEG tube in place : Paraphimosis of penis. Osborne inserted with red tinged urine Musculoskeletal: no pitting edema, muscle atrophy, Feet show fixed contractures with inward curvature. Spastic Neuro:deferred Objective Labs 05/13/25 06:30 05/13/25 04:57 Labs: Laboratory Results - last 24 hr 05/09/25 05/09/25 05/10/25 18:50 21:11 00:14 WBC RBC Hgb Hct MCV MCH MCHC RDW Std Deviation Plt Count Neut % (Auto) Lymph % (Auto) [place] % (Auto) Eos % (Auto) Baso % (Auto) Neut # (Auto) Lymph # (Auto) [place] # (Auto) Eos # (Auto) Baso # (Auto) Immature Gran # (Auto) Absolute Nucleated RBC Immature Gran % Nucleated RBC % PT INR APTT Puncture Site Left Radial Left Radial ABG pH 7.28 L 7.35 ABG pCO2 55 H D 42 D ABG pO2 70 L 103 D ABG HCO3 26 23 ABG O2 Saturation 92 99 H ABG Base Excess -2 -3 FiO2 50 45 Sodium Potassium Chloride Carbon Dioxide Anion Gap BUN Creatinine Estim Creat Clear Calc eGFR BUN/Creatinine Ratio Glucose Calculated Osmolality Calcium Corrected Calcium Phosphorus Magnesium Total Bilirubin AST ALT Alkaline Phosphatase Total Protein Albumin Globulin Albumin/Globulin Ratio Vancomycin Trough 22.7 H* Blood Type Antibody Screen Blood Bank Wristband ID 05/10/25 04:20 WBC 8.8 RBC 2.91 L Hgb 8.3 L D Hct 25.1 L MCV 86 MCH 28.5 MCHC 33.1 RDW Std Deviation 44.1 H Plt Count 133 L D Neut % (Auto) 58 Lymph % (Auto) 24 [place] % (Auto) 15 H Eos % (Auto) 3 Baso % (Auto) 0 Neut # (Auto) 5.1 Lymph # (Auto) 2.1 [place] # (Auto) 1.3 H Eos # (Auto) 0.2 Baso # (Auto) 0.0 Immature Gran # (Auto) 0.03 H Absolute Nucleated RBC 0.00 Immature Gran % 0 Nucleated RBC % 0 PT 10.3 INR 1.0 APTT 31.0 Puncture Site ABG pH ABG pCO2 ABG pO2 ABG HCO3 ABG O2 Saturation ABG Base Excess FiO2 Sodium 141 Potassium 3.2 L Chloride 105 Carbon Dioxide 25.7 Anion Gap 10 BUN 13 Creatinine 1.2 Estim Creat Clear Calc 76.9 eGFR > 60 BUN/Creatinine Ratio 11 L Glucose 137 H D Calculated Osmolality 283 Calcium 7.7 L Corrected Calcium 8.7 Phosphorus 2.9 Magnesium 3.0 H Total Bilirubin 0.3 AST 49 H ALT 25 Alkaline Phosphatase 59 Total Protein 4.5 L Albumin 2.7 L D Globulin 1.8 L Albumin/Globulin Ratio 1.5 Vancomycin Trough Blood Type O Positive Antibody Screen NEGATIVE Blood Bank Wristband ID Yes ABG Interpretation ABG results: 05/09/25 05/09/25 05/09/25 11:56 13:40 18:50 ABG pH 7.40 7.27 L D 7.28 L ABG pCO2 40 43 55 H D ABG pO2 131 H 53 L* D 70 L ABG HCO3 25 20 26 ABG O2 Saturation 99 H 81 L 92 ABG Base Excess 0 -7 L -2 05/10/25 00:14 ABG pH 7.35 ABG pCO2 42 D ABG pO2 103 D ABG HCO3 23 ABG O2 Saturation 99 H ABG Base Excess -3 Quality Measures Quality Measures sepsis Current suspected stage: sepsis Possible source: pulmonary Blood cultures ordered: yes Antibiotic ordered: Yes and none Assessment & Plan Assessment Current Active Medications: Generic Name Dose Route Start Last Admin Trade Name Freq PRN Reason Stop Dose Admin Albuterol/Ipratropium 3 ml 05/09/25 18:19 05/10/25 02:09 Albuterol/Ipratropium (Duoneb) Rt Racquel 3 Ml Nebu INH 06/08/25 18:18 3 ml Q2HR PRN Administration SHORTNESS OF BREATH OR WHEEZE Ceftriaxone Sodium 2 gm/ 50 mls @ 100 mls/hr 05/08/25 11:20 05/10/25 08:28 Sodium Chloride IV 05/15/25 11:19 100 mls/hr Q12HR KYA Administration Propofol 1,000 mg in 100 mls @ 2.048 mls/hr 05/09/25 15:42 05/10/25 17:00 Diprivan Ivpb IV 06/08/25 15:41 30 mcg/kg/min .Q24H PRN 12.288 mls/hr PER PROTOCOL Titration Protocol 5 MCG/KG/MIN Fentanyl Citrate 2,500 mcg in 250 mls @ 2.5 mls/hr 05/09/25 16:02 05/10/25 16:00 Sublimaze Inj 2,500 Mcg/250 Ml Bag IV 05/14/25 16:01 150 mcg/hr .Q24H PRN 15 mls/hr PER PROTOCOL Titration Protocol 25 MCG/HR Valproic Acid 187.5 mg/ Sodium 51.875 mls @ 51.875 mls/hr 05/09/25 18:00 05/10/25 12:53 Chloride IV 06/07/25 17:59 51.875 mls/hr Q6HR KYA Administration Protocol Midazolam HCl 100 mg in 100 mls @ 1 mls/hr 05/09/25 18:43 Versed Pf Inj In Ns Premix IV 05/14/25 18:42 .Q24H PRN PER PROTOCOL Protocol 1 MG/HR Acetaminophen 1,000 mg in 100 mls @ 250 mls/hr 05/10/25 01:26 05/10/25 01:35 Ofirmev Inj IV 05/10/25 18:23 250 mls/hr Q6HR PRN Administration Temp > 99.9 Acyclovir Sodium 640 mg/ 112.8 mls @ 98.947 mls/hr 05/10/25 06:45 05/10/25 14:59 Sodium Chloride IV 05/15/25 06:44 98.947 mls/hr Q8HR KYA Administration Vancomycin HCl/Dextrose 250 mls @ 120 mls/hr 05/10/25 10:00 05/10/25 09:51 Vancomycin/D5w 1,250 Mg Ivpb IV 05/17/25 09:59 120 mls/hr Q12H KYA Administration Levetiracetam 800 mg 05/08/25 21:00 05/10/25 08:29 Levetiracetam Inj 100 Mg/Ml Vial 5ml IV 06/07/25 20:59 800 mg BID KYA Administration Ofloxacin 5 drop 05/09/25 10:15 05/10/25 09:45 Ofloxacin Op Racquel 0.3% 5 Ml Btl BOTH EARS 05/18/25 10:14 5 drops BID KYA Administration Ondansetron HCl 4 mg 05/08/25 11:36 Ondansetron Inj 2 Mg/Ml Inj 2 Ml IVP 06/07/25 11:35 Q6HR PRN NAUSEA OR VOMITING Protocol Pharmacy Consult 1 each 05/08/25 11:30 Vancomycin Pharmacy To Dose 1 Each Each IV 06/07/25 11:29 QDAY PRN CONSULT Pharmacy Consult 1 each 05/08/25 16:12 Pharmacy To Consult Patient XX 06/07/25 16:11 PRN PRN CONSULT Tamsulosin HCl 0.4 mg 05/10/25 11:45 05/10/25 12:53 Tamsulosin Hcl 0.4 Mg Capsule GT 06/09/25 11:44 0.4 mg QDAY KYA Administration Protocol Plan David Baltazar is 24 yr male with PMH of chronic mastoiditis (previously had tympanostomy tube placed for recurrent otitis media, now removed), seizure disorder, recurrent pneumonia, cerebral palsy, chronic PEG tube, and asthma who was brought into ED on 05/08/25 for ongoing fever of over 24 hours and reported episode of witnessed seizure by ED. Patient was septic. Neurology was consulted to for LP to rule out meningitis. #Sepsis #Mastoiditis #rule out Meningitis #Tonic clonic seizure #Hx seizures #Cerebral palsy On admission he was noted to have fever of 105, leukocytosis 16, tachycardia 176, and tachypnic 26. CT orbit sella showed b/L otitis externa and media. Reduced mastoid aeration on the left, b/L chlestatomas. He was started on vancomycin, ceftriaxone 2g BID, ampicillin 2g q4hr, and acyclovir. -continue vancomycin, ceftriaxone, and acyclovir -plan for beside LP, family has given consent -EEG read is pending -continue IV Keppra 800mg BID -IV Depakote 187mg q6hr. -seizure precautions -midazolam for breakthrough seizure #Paraphimosis #Acute Kidney Injury #Anion Gap Metabolic Acidosis #Lactic acidosis #Elevated total creatine kinase #Normocytic Anemia Primary care team to manage above conditions and ongoing care needs. The patient's management plan was discussed with my attending physician Dr. Lang. Zakiya Delacruz, PGY-2 Attending Provider Attestation/Addendum I personally have seen and examined the patient at the bedside and I agreed with the resident's findings, assessment and plan of care. Follow-up with the CSF analysis to evaluate for fever continue with antibiotics for now.
[2025-05-10] MEDS: PROPOFOL 1,000 MG IVPB 1,000 MG/100 ML VIAL 16.384 MG IV (21:45)
[2025-05-10] MEDS: DIAZEPAM INJ 5 MG/ML VIAL 2 ML IVP (22:15)
[2025-05-10 23:31] LABS: Coccid Serology, CF CSF (UCD)* See Sep Rpt; Misc Send Out* See Sep Rpt
[2025-05-10 23:42] LABS: CSF Cell Count Tube # Tube # 4; CSF Color Colorless (Colorless); CSF White Blood Cell 3 /cmm
[2025-05-10 23:43] LABS: CSF Mononuclear 67 %; CSF Red Blood Cell 1000 /cmm
[2025-05-10 23:44] LABS: Glucose,CSF 70 mg/dL (40-70); Protein Total,CSF 25 mg/dL (8-32)
[2025-05-10 23:46] LABS: CSF Polynuclear WBC 33 %; CSF, Appearance Clear (Clear)
[2025-05-11] VITALS (37 sets, daily range): BP systolic 102–141; BP diastolic 63–96; PULSE 61–136; RESP 0–25; TEMP 37.4–38.9; O2SAT 90–100
--- NOTE | 2025-05-11 | PD.EVENT ---
Documentation for date of: 05/10/25 Date of procedure: 05/10/25 Pre-op diagnosis: FUO Post-op diagnosis: Same Consent signed by: Parent Position: lateral decubitus Prep: betadine Anesthesia: 1 % Lidocaine Sedation: other (Valium ) Needle size: 22ga Needle length: other (5) Interspace: L3-4 Number of attempts: 4 Opening pressure: other (55) Fluids mLs collected: 13 Fluid description: clear Complications: No Patient tolerance: Good Procedure performed by: Darryl Lang Condition: Stable Disposition: ICU
[2025-05-11] MEDS: PROPOFOL 1,000 MG IVPB 1,000 MG/100 ML VIAL 18.432 MG IV ×3 (03:17→13:40)
[2025-05-11] MEDS: fentaNYL 2,500 MCG/250 ML BAG 2,500 MCG/250 ML BAG 25 MCG IV ×2 (04:50→15:42)
[2025-05-11 05:20] LABS: Basophils # (Auto) 0.0 Thou/mm3 (0.0-0.2); Basophils % (Auto) 0 % (0-2.5); Eosinophils # (Auto) 0.4 Thou/mm3 (0.0-0.5); Eosinophils % (Auto) 6 % (0-10); Hematocrit 28.2 % (41.0-53.0); Hemoglobin 9.3 g/dL (13.5-16.0); Immature Granulocytes Auto 0.04 Thou/mm3 (0.00-0.00); Lymphocytes # (Auto) 1.6 Thou/mm3 (1.0-4.8); Lymphocytes % (Auto) 25 % (10-50); Mean Corpuscular HGB Conc 33.0 g/dl (31.0-37.0); Mean Corpuscular Hemoglobin 28.5 pg (25.0-35.0); Mean Corpuscular Volume 87 fL (80-100); Monocytes # (Auto) 1.0 Thou/mm3 (0.0-0.8); Monocytes % (Auto) 16 % (0-12); Neutrophils # (Auto) 3.4 Thou/mm3 (1.8-7.7); Neutrophils % (Auto) 53 % (37-80); Nucleated Red Blood Cell # 0.00 Thou/mm3 (0.00-0.00); Nucleated Red Blood Cell % 0 /100 WBC (0); Platelet Count 86 Thou/mm3 (140-440); RDW Standard Deviation 46.9 fL (35.1-43.9); Red Blood Count 3.26 Miln/mm3 (4.50-5.90); White Blood Count 6.4 Thou/mm3 (3.8-10.6)
[2025-05-11 05:21] LABS: Base Excess 2 (-3-3); HCO3 28 mEq/L (20-26); Inspired Oxygen, FIO2 35 %; O2 Saturation 98 % (91-98); PCO2 54 mmHg (32.0-48.0); PO2 93 mmHg (83-108); pH, Arterial 7.33 (7.35-7.45)
[2025-05-11 05:25] LABS: Allen Test Not Performed; Puncture Site Right Radial
[2025-05-11 05:48] LABS: CSF Gram Stain Alert Gram Stain Completed
[2025-05-11 05:51] LABS: Alanine Aminotransferase 33 U/L (10-49); Albumin, Serum 3.0 gm/dL (3.5-5.0); Albumin/Globulin Ratio 1.4 (1.2-2.2); Alkaline Phosphatase 81 U/L (46-116); Anion Gap 9 (7-16); Aspartate Amino Transferase 54 U/L (0-34); BUN/Creatinine Ratio 12 Ratio (12-20); Bilirubin,Total 0.4 mg/dL (0.3-1.2); Blood Urea Nitrogen 12 mg/dL (9-23); Calcium 8.3 mg/dL (8.3-10.6); Calcium (Corrected) 9.1 mg/dL (8.5-10.1); Carbon Dioxide 28.4 mMol/L (20.0-31.0); Chloride 105 mMol/L (98-107); Creatine Kinase 1654 U/L (34-171); Creatinine (Component) 1.0 mg/dL (0.6-1.3); Estimated Creatinine Clearance 92.1 mL/min (>60); Globulin 2.1 gm/dL (2.3-3.5); Glucose 100 mg/dL (74-106); Magnesium 2.2 mg/dL (1.6-2.6); Osmolality,Calculated 282 (275-295); Phosphorous 4.0 mg/dL (2.4-5.1); Potassium 3.6 mMol/L (3.4-5.1); Sodium 142 mMol/L (136-145); Total Protein 5.1 gm/dL (5.7-8.2); Triglycerides 183 mg/dL (30-150); eGFR > 60 See Note
[2025-05-11 07:36] LABS: Ag, Group B Strep Negative (Negative); Ag, H Influenza B Negative (Negative); Ag, N Mening B/Ecoli K1 Negative (Negative); Ag, N Meningitidis ACY W135 Negative (Negative); Ag, Strep Pneumonia Negative (Negative)
[2025-05-11] MEDS: levETIRAcetam INJ 100 MG/ML VIAL 5ML 800 MG IV ×2 (08:35→20:45)
[2025-05-11] MEDS: ENOXAPARIN SOD INJ 30 MG/0.3 ML SYRINGE SC (08:35)
[2025-05-11] MEDS: cefTRIAXone 2 GM in SODIUM CHLORIDE 0.9% (Popper) 50 ML IV (08:36)
[2025-05-11] MEDS: TAMSULOSIN HCL 0.4 MG CAPSULE GT (08:38)
[2025-05-11] MEDS: OFLOXACIN OP SOL 0.3% 5 ML BTL 5 DROP BOTH EARS ×2 (09:08→20:45)
[2025-05-11] MEDS: VANCOMYCIN/D5W 1,250 MG IVPB 250 ML 120 MG IV (09:08)
--- NOTE | 2025-05-11 11:54 | XR_ITS ---
EXAMINATION: AP chest single view TECHNIQUE: AP portable supine chest single view Date and time: May 11, 2025, 1203 hours, comparison May 09, 2025 INDICATIONS: Hypoxic respiratory failure, post intubation, shortness of breath 3 days FINDINGS: Mild bilateral perihilar pneumonia. No significant cardiac enlargement. Endotracheal tube tip 3.7 cm above haresh IMPRESSION: Mild bilateral perihilar pneumonia
[2025-05-11] MEDS: LEVOFLOXACIN/D5W 750MG IVPB 750 MG/150 ML BAG 100 MG IV (12:35)
[2025-05-11] MEDS: ACETAMINOPHEN IVPB 1,000 MG/100 ML VIAL 250 MG IV ×2 (13:16→23:32)
--- NOTE | 2025-05-11 13:53 | PD.IDPROG ---
Subjective Subjective Interval history: intubated. viral panel pending yet. csf looks benign Exam Vital Signs Temp Pulse Resp BP Pulse Ox O2 Del Method O2 Flow Rate 100.2 F 87 20 119/76 96 Mechanical Ventilation 50 05/11/25 12:00 05/11/25 12:00 05/11/25 06:47 05/11/25 12:00 05/11/25 12:00 05/09/25 18:01 05/09/25 18:01 FiO2 35 05/11/25 12:00 Objective - Internal Medicine Labs 05/11/25 05:07 05/11/25 05:07 Labs: Laboratory Results - last 24 hr 05/10/25 05/11/25 05/11/25 22:45 05:06 05:07 WBC 6.4 RBC 3.26 L Hgb 9.3 L Hct 28.2 L MCV 87 MCH 28.5 MCHC 33.0 RDW Std Deviation 46.9 H Plt Count 86 L D Neut % (Auto) 53 Lymph % (Auto) 25 [place] % (Auto) 16 H Eos % (Auto) 6 Baso % (Auto) 0 Neut # (Auto) 3.4 Lymph # (Auto) 1.6 [place] # (Auto) 1.0 H Eos # (Auto) 0.4 Baso # (Auto) 0.0 Immature Gran # (Auto) 0.04 H Absolute Nucleated RBC 0.00 Immature Gran % 1 H Nucleated RBC % 0 Puncture Site Right Radial ABG pH 7.33 L ABG pCO2 54 H D ABG pO2 93 ABG HCO3 28 H ABG O2 Saturation 98 ABG Base Excess 2 FiO2 35 Sodium 142 Potassium 3.6 Chloride 105 Carbon Dioxide 28.4 Anion Gap 9 BUN 12 Creatinine 1.0 Estim Creat Clear Calc 92.1 eGFR > 60 BUN/Creatinine Ratio 12 Glucose 100 Calculated Osmolality 282 Calcium 8.3 Corrected Calcium 9.1 Phosphorus 4.0 Magnesium 2.2 Total Bilirubin 0.4 AST 54 H ALT 33 Alkaline Phosphatase 81 D Total Creatine Kinase 1654 H D Total Protein 5.1 L Albumin 3.0 L Globulin 2.1 L Albumin/Globulin Ratio 1.4 Triglycerides 183 H CSF Appearance Clear CSF Color Colorless CSF WBC 3 CSF RBC 1000 CSF Cell Count Tube # Tube # 4 CSF Mononuclear WBCs 67 CSF Polynuclear WBCs 33 CSF Glucose 70 CSF Total Protein 25 CSF H.influenzae B Ag Negative CSF N.meningit ACY/W135 Negative CSF N.mening B/E.coli K1 Negative CSF Strep B Antigen Negative CSF Strep pneumoniae Ag Negative ABG Interpretation ABG results: 05/09/25 05/09/25 05/09/25 11:56 13:40 18:50 ABG pH 7.40 7.27 L D 7.28 L ABG pCO2 40 43 55 H D ABG pO2 131 H 53 L* D 70 L ABG HCO3 25 20 26 ABG O2 Saturation 99 H 81 L 92 ABG Base Excess 0 -7 L -2 05/10/25 05/11/25 00:14 05:06 ABG pH 7.35 7.33 L ABG pCO2 42 D 54 H D ABG pO2 103 D 93 ABG HCO3 23 28 H ABG O2 Saturation 99 H 98 ABG Base Excess -3 2 Assessment & Plan Time Spent With Patient Time: Total time spent is greater than 50% in coordination of care (as documented) at patient's floor/unit and/or counseling patient:
--- NOTE | 2025-05-11 14:15 | EVENTNT_ITS ---
Documentation for date of: 05/11/25 Update Discussion with Family Time: Approximately 12:30PM Location: Patient?s Room, 255. Attendees: Lizbeth Gupta (medical assistant instructor), Patient?s Mother and Father. The family was updated on the results of the lumbar puncture, which did not show any signs of infection. Culture results are still pending to definitively rule out meningitis. The patient?s parents were informed that the patient spiked a fever again today. The fever was initially controlled during the first few days in the ICU with antibiotics. However, this new fever is likely of a different etiology. It could be related to the sedation medications, as propofol is known to cause fever, or it may be associated with the chronic mastoiditis. The source of infection and fevers are unknown at this time. The parents were informed that the patient will receive Tylenol for the fever. The family was also informed that a CD of the patient?s imaging studies will be sent to the ENT specialist, Dr. Jacky Cuadra, in [place], who has been following the patient. In the past, the patient had surgery on his left ear, but the right ear was not operated on because the previous ENT, Dr. Mcconnell, had retired. The family inquired about the possibility of transferring the patient in case resources at the current facility are insufficient. They were reassured that there are no limitations to the care that can be provided at this time. It was explained that in order to consider transfer, the source of the infection, which remains unidentified, would need to be determined. The family was reassured that the ICU team is doing everything possible to care for the patient. The family was asked about the patient?s baseline behavior. They described the patient as generally calm and noted that he does exhibit purposeless limb movements at baseline, which are not related to agitation. The plan to decrease sedation was explained to the parents, with the aim of assessing how the patient reacts. The parents were given the opportunity to ask additional questions or express c oncerns. All questions were answered to their satisfaction, and the parents verbally acknowledged their understanding of the information provided. Plan of care discussed with senior residents Dr. mable Armendariz. - Diaz Coppola DO, PGY-1 2:13 PM: Spoke with Tiny at Dr. Jacky Cuadra's office. The ICU team would like to consult Dr. Cuadra to see if he has any recommendations for management or antibiotics in relation to the patient's bilateral chronic mastoiditis, bilateral otitis externa, and bilateral otitis media. CD of the patient?s CT head and CT orbit sellar inner images will be dropped off at Dr. Cuadra's office.
--- NOTE | 2025-05-11 14:46 | ESPR_ITS ---
<Statement entered by Kamlesh Baer MD - 05/11/25 19:46> Patient seen and examined at bedside. I discussed and supervised with the environmental health and safety intern physician who took care of this patient. I personally saw and examined the patient. I agree with most of the assessment and plan. Plan of care discussed with attending Dr. Armendariz. Kamlesh Baer MD PGY-2 Documentation for date of: 05/11/25 Subjective Subjective Interval history: 24-year-old male with a past medical history significant for cerebral palsy, asthma, seizure disorder, chronic mastoiditis (previously treated with tympanostomy tube placement for recurrent otitis media, now removed), recurrent pneumonia, and chronic PEG tube dependence, presented to the ED on 05/08/2025 with a fever lasting over 24 hours. The patient also had a witnessed seizure episode lasting 5-10 seconds, characterized by tonic-clonic activity confined to the left side of the body. ED Course: -Initial vitals were: BP 122/84, HR 176, RR 26, T 105F, O2 sat 96% on room air. -Labs significant for: CBC showed a WBC of 16.3. CMP showed Na 148, K 5.2, Cl 107, bicarbonate 18.7, anion gap 22, creatinine 1.3 (baseline 0.7), lactic acid 3.2, alkaline phosphatase 120, LDH 352, total CK 1048, procalcitonin: 0.14. Urinalysis negative. Influenza A/B testing was negative. -Imaging included: EKG showed supraventricular tachycardia of HR [address] and T-wave abnormality. CXR showed no aspiration pneumonia but was noted to be of poor inspiratory effort. CT CAP w/o contrast seemed to show no gross infiltrates or other notable findings but was noted to be severely degraded by patient motion. -In the ED, patient was given acetaminophen 975 mg, ceftriaxone 1 gram IV, midazolam 2 mg IV x1, albuterol 2.5 mg, Zosyn 3.375 gram, 2 L NS fluid infusion, and 1 L LR fluid infusion. In the ED, the patient was agitated and pulled out his IV. Attempts at peripheral access were unsuccessful, and a right femoral central line was placed. Telemetry Course: Patient was admitted to telemetry for further workup and management of sepsis of unknown source, with concern for meningitis. Empiric broad-spectrum antibiotic and antiviral therapy were started, consisting of ceftriaxone 2g IV twice daily, vancomycin (pharmacy to dose), ampicillin, and acyclovir. Neurology was consulted. CT of the orbit, sella, and inner ear was ordered given the patient?s history of acute mastoiditis, which showed severe bilateral chronic mastoiditis, bilateral otitis externa, bilateral otitis media, and bilateral cholesteatomas in the attics. CT head was also performed and was negative for acute hemorrhage, mass effect, or midline shift. Findings included prominent sphenoid, ethmoid, and maxillary antral sinusitis, bilateral chronic mastoiditis, bilateral otitis media, and opacification in the bilateral attics. For the patient?s seizures, his home medications of valproic acid and levetiracetam were restarted. Orders for midazolam and Haldol were placed as needed for breakthrough seizures and agitation. An ice pack was ordered for his paraphimosis. Infectious disease was also consulted. Primary team consulted ICU team. On 05/09, two rapid responses were initiated due to the patient?s escalating agitation and anxiety. Patient appeared to be in significant pain from his paraphimosis. The primary team consulted the ICU for further management, as the patient had already received diazepam, haldol, versed, and dilaudid earlier that morning, with inadequate relief. Additionally, there was concern over a decline in his pO2 levels. The initial ABG at 11:56 showed: pH 7.40, pCO2 40, pO2 131, HCO3 25. A repeat ABG at 13:40 revealed: pH 7.27, pCO2 43, pO2 53, HCO3 20. Upon evaluation by the ICU team, the patient was noted to be extremely agitated and wearing an oxygen mask, with audible gurgling sounds coming from the upper airway, raising concern for potential airway compromise. Given the risk of inadequate airway protection, the decision was made to transfer the patient to the ICU for intubation and further management. In the ICU, the patient was intubated. Urology, Dr. Vargas, was consulted earlier in the day. He was able to successfully perform a reduction of the paraphimosis. Interval History: 05/11/2025: Overnight, the patient became increasingly agitated and was observed biting on the endotracheal tube. In response, propofol was increased from 40 mcg/kg/min to 45 mcg/kg/min, and fentanyl was increased from 200 mcg/hr to 250 mcg/hr. The plan is to attempt weaning the patient off sedation today, and work towards extubation. A lumbar puncture was performed, which showed 3 WBCs. Infection from meningitis is less likely, but culture results are pending for confirmation. Today, the patient has been experiencing a low-grade fever, with the highest recorded temperature being 100.4?F. After the Hawkins catheter was placed, the patient had 1700 cc of urine output over the past 12 hours. Followed up with Dr. Jacky Cuadra (ENT in [place]). Dr. Cuadra stated that there is nothing additional he could identify on the CT imaging that the radiologist has not already seen. And that if there was something it would likely be surgical and he does not perform surgeries. He recommended covering for Pseudomonas with clindamycin and Unasyn. The plan is to start levofloxacin for Pseudomonas coverage as well. Additionally, Dr. Cuadra suggested culturing the ear. 05/10/2025: Patient remained sedated with propofol and fentanyl throughout the night, maintaining adequate sedation levels. Around 2 AM, the propofol dose was reduced due to MAP in the 60s. 1L of LR was administered on top of the ongoing IV maintenance fluids at 100cc/hr. Following this, the MAP remained stable above 65. At 6:50 PM on 05/09, an ABG revealed a pH of 7.28, pCO2 of 55, and pO2 of 70, indicative of respiratory acidosis. Patient was given 5 grams of magnesium and 15 mg of albuterol over the course of an hour to promote bronchodilation. Magnesium also needed to be repleted. A repeat ABG showed normalization of the respiratory parameters. Patient's Hawkins catheter was removed and replaced with a QiVi catheter overnight per the patient's father?s request. However, the patient developed urinary retention. A bladder scan performed at 6 AM showed 295cc of retained urine, and a subsequent scan in the afternoon revealed 439cc. Exam Vital Signs Temp Pulse Resp BP Pulse Ox O2 Del Method O2 Flow Rate 100.2 F 93 20 115/63 97 Mechanical Ventilation 50 05/11/25 12:00 05/11/25 14:21 05/11/25 06:47 05/11/25 14:21 05/11/25 14:21 05/09/25 18:01 05/09/25 18:01 FiO2 45 05/11/25 14:21 Narrative Exam General: sedated, nonverbal at baseline, not in acute distress. Skin: Rash near buttock area. Head: Normocephalic, atraumatic. Eyes: PERRL. Anicteric. Mouth/Throat: Poor dentition. Oral mucosa moist. No obvious lesions in oropharynx. Cardiovascular: Regular rate and rhythm, no murmur. Respiratory: Rhonchi to auscultation on the right lung field. Clear to auscultation on the left. Gastrointestinal: PEG tube in place. Soft, non-distended, no guarding or rebound tenderness. Genitourinary: Decrease swelling of glans penis. Extremities: Contracted. No edema, cyanosis, mottling, clubbing. 2+ radial pulse bilaterally, 2+ posterior tibial pulse bilaterally. Objective Labs 05/15/25 04:25 05/15/25 04:25 Labs: Laboratory Results - last 24 hr 05/10/25 05/11/25 05/11/25 22:45 05:06 05:07 WBC 6.4 RBC 3.26 L Hgb 9.3 L Hct 28.2 L MCV 87 MCH 28.5 MCHC 33.0 RDW Std Deviation 46.9 H Plt Count 86 L D Neut % (Auto) 53 Lymph % (Auto) 25 Calhoun % (Auto) 16 H Eos % (Auto) 6 Baso % (Auto) 0 Neut # (Auto) 3.4 Lymph # (Auto) 1.6 Calhoun # (Auto) 1.0 H Eos # (Auto) 0.4 Baso # (Auto) 0.0 Immature Gran # (Auto) 0.04 H Absolute Nucleated RBC 0.00 Immature Gran % 1 H Nucleated RBC % 0 Puncture Site Right Radial ABG pH 7.33 L ABG pCO2 54 H D ABG pO2 93 ABG HCO3 28 H ABG O2 Saturation 98 ABG Base Excess 2 FiO2 35 Sodium 142 Potassium 3.6 Chloride 105 Carbon Dioxide 28.4 Anion Gap 9 BUN 12 Creatinine 1.0 Estim Creat Clear Calc 92.1 eGFR > 60 BUN/Creatinine Ratio 12 Glucose 100 Calculated Osmolality 282 Calcium 8.3 Corrected Calcium 9.1 Phosphorus 4.0 Magnesium 2.2 Total Bilirubin 0.4 AST 54 H ALT 33 Alkaline Phosphatase 81 D Total Creatine Kinase 1654 H D Total Protein 5.1 L Albumin 3.0 L Globulin 2.1 L Albumin/Globulin Ratio 1.4 Triglycerides 183 H CSF Appearance Clear CSF Color Colorless CSF WBC 3 CSF RBC 1000 CSF Cell Count Tube # Tube # 4 CSF Mononuclear WBCs 67 CSF Polynuclear WBCs 33 CSF Glucose 70 CSF Total Protein 25 CSF H.influenzae B Ag Negative CSF N.meningit ACY/W135 Negative CSF N.mening B/E.coli K1 Negative CSF Strep B Antigen Negative CSF Strep pneumoniae Ag Negative ABG Interpretation ABG results: 05/09/25 05/09/25 05/09/25 11:56 13:40 18:50 ABG pH 7.40 7.27 L D 7.28 L ABG pCO2 40 43 55 H D ABG pO2 131 H 53 L* D 70 L ABG HCO3 25 20 26 ABG O2 Saturation 99 H 81 L 92 ABG Base Excess 0 -7 L -2 05/10/25 05/11/25 00:14 05:06 ABG pH 7.35 7.33 L ABG pCO2 42 D 54 H D ABG pO2 103 D 93 ABG HCO3 23 28 H ABG O2 Saturation 99 H 98 ABG Base Excess -3 2 Quality Measures Quality Measures VTE prophylaxis (Lovenox) and sepsis Current suspected stage: sepsis Possible source: pulmonary Blood cultures ordered: yes Antibiotic ordered: Yes Assessment & Plan Assessment Current Active Medications: Generic Name Dose Route Start Last Admin Trade Name Freq PRN Reason Stop Dose Admin Albuterol/Ipratropium 3 ml 05/09/25 18:19 05/10/25 22:59 Albuterol/Ipratropium (Duoneb) Rt Racquel 3 Ml Nebu INH 06/08/25 18:18 3 ml Q2HR PRN Administration SHORTNESS OF BREATH OR WHEEZE Enoxaparin Sodium 30 mg 05/11/25 09:00 05/11/25 08:35 Enoxaparin Sod Inj 30 Mg/0.3 Ml Syringe SC 05/25/25 08:59 30 mg QDAY KYA Administration Propofol 1,000 mg in 100 mls @ 2.048 mls/hr 05/09/25 15:42 05/11/25 08:00 Diprivan Ivpb IV 06/08/25 15:41 45 mcg/kg/min .Q24H PRN 18.432 mls/hr PER PROTOCOL Titration Protocol 5 MCG/KG/MIN Fentanyl Citrate 2,500 mcg in 250 mls @ 2.5 mls/hr 05/09/25 16:02 05/11/25 10:00 Sublimaze Inj 2,500 Mcg/250 Ml Bag IV 05/14/25 16:01 250 mcg/hr .Q24H PRN 25 mls/hr PER PROTOCOL Titration Protocol 25 MCG/HR Valproic Acid 187.5 mg/ Sodium 51.875 mls @ 51.875 mls/hr 05/09/25 18:00 05/11/25 12:34 Chloride IV 06/07/25 17:59 51.875 mls/hr Q6HR KYA Administration Protocol Midazolam HCl 100 mg in 100 mls @ 1 mls/hr 05/09/25 18:43 Versed Pf Inj In Ns Premix IV 05/14/25 18:42 .Q24H PRN PER PROTOCOL Protocol 1 MG/HR Acetaminophen 1,000 mg in 100 mls @ 250 mls/hr 05/10/25 19:35 05/11/25 13:16 Ofirmev Inj IV 05/13/25 19:34 250 mls/hr Q6HR PRN Administration temp >99.9 Levofloxacin/Dextrose 750 mg in 150 mls @ 100 mls/hr 05/11/25 12:00 05/11/25 12:35 Levaquin Ivpb IV 05/18/25 11:59 100 mls/hr QDAY KYA Administration Levetiracetam 800 mg 05/08/25 21:00 05/11/25 08:35 Levetiracetam Inj 100 Mg/Ml Vial 5ml IV 06/07/25 20:59 800 mg BID KYA Administration Ofloxacin 5 drop 05/09/25 10:15 05/11/25 09:08 Ofloxacin Op Racquel 0.3% 5 Ml Btl BOTH EARS 05/18/25 10:14 5 drops BID KYA Administration Ondansetron HCl 4 mg 05/08/25 11:36 Ondansetron Inj 2 Mg/Ml Inj 2 Ml IVP 06/07/25 11:35 Q6HR PRN NAUSEA OR VOMITING Protocol Pharmacy Consult 1 each 05/08/25 16:12 Pharmacy To Consult Patient XX 06/07/25 16:11 PRN PRN CONSULT Plan 24-year-old male with cerebral palsy, asthma, seizure disorder, chronic mastoiditis, recurrent pneumonia, and chronic PEG tube dependence presented with fever and seizure, was admitted for sepsis workup, and later transferred to the ICU for intubation due to concerns about airway protection. Neurology #Breakthrough tonic clonic seizure #History of seizures #Cerebral palsy DDx: likely secondary to sepsis vs electrolyte imbalances vs medication non- compliance or inadequate medication dosing vs hypoglycemia vs dehydration. Diagnosis: - Temperature of 105F on admission. - Sodium 148 and potassium 5.2 on admission. - EEG pending. Treatment Plan: - Continue valproic acid 187.5 mg Q6H. - Continue levetiracetam 800mg BID. - Adjust seizure medications if breakthrough seizures persist. - Seizure precautions. - Aspiration precautions. - Repeat CBC, electrolytes, renal function, and liver function tests to monitor for any metabolic derangements contributing to seizures. #Chemical sedation #Agitation Patient was extremely agitated before ICU admission, likely due to pain from paraphimosis. Diagnostic Test: - 05/10 AM: Patient's RASS was -4 : no response to voice, but movement to physical stimulation. - 05/11 AM: Patient's RASS was -4. Treatment Plan: - Daily sedation holiday as appropriate for timely weaning of sedation. Cardiovascular #no active problems Respiratory #Intubated and mechanically ventilated for airway protection #Acute hypoxic respiratory failure Diagnostic Test: - ABG 05/09 at 11:56: pH 7.40, pCO2 40, pO2 131, HCO3 25. - ABG 05/09 at 13:40: pH 7.27, pCO2 43, pO2 53, HCO3 20. - ABG 05/09 at 18:50: pH 7.28, pCO2 55, pO2 70, HCO3 26. - ABG 05/10 at 00:14: pH 7.35, pCO2 41, pO2 103, HCO3 23. - ABG 05/11 at 05:06: pH 7.33, pCO2 54, pO2 93, HCO3 28. - CXR :: Mild bilateral perihilar pneumonia. To assess for ventilator associated pneumonia. Not much change from 05/09 CXR. Treatment Plan: - A/CMV PRVC: VT 370/RR 20/PEEP 10/FiO2 50/Ppeak 27.3/Pplateau 23.2. - A/CMV PRVC: VT 370/RR 20/PEEP 5/FiO2 35/Ppeak 35.5/Pplateau 23.2. - Monitor ABG and adjust ventilator settings accordingly. - Perform SBTs, when appropriate. - According to ABG 05/11 --> respiratory acidosis, will allow for permissive hypercapnia to protect the lungs from ventilator-induced lung injury. - Respiratory therapy to do airway suction. #Bronchospasm #History of asthma Diagnostic Test: - Although the patient has a history of asthma, the bronchospasm is most likely from the irritant effect of blood in the airway. A small amount of blood, which was likely from dryness of the nasal mucosa, was suctioned out during intubation. Treatment Plan: - Magnesium for bronchodilatory effect as needed. - Albuterol as needed. GI, , F/E/N #Acute urinary retention (resolved) Diagnostic Test - Bladder scan at 6AM on 05/10: 295 cc. - Bladder scan at noon on 05/10: 495 cc. - Hawkins was reinserted on 05/10 with family's permission. After reinsertion of the Hawkins catheter, 700cc of brown urine was drained. Treatment Plan - Reinserted hawkins catheter. - Discontinue Tamsulosin 0.4 mg GT. - Monitor urine output. #Paraphimosis (resolved) #Balanitis (resolving) Diagnostic Test: - Edema and tenderness of the glans penis. - Swelling of the distal retracted foreskin. - Constricting band of tissue proximal to the head of the penis at the coronal sulcus. - Hawkins was removed on 05/09 and transitioned to Oivi external urinary catheter. Discussed with family about the need to reinsert hawkins due to the patient's acute urinary retention. Family were in agreement with this plan. Hawkins was reinserted on 05/10 due to urinary retention. - S/p reduction of the paraphimosis by Dr. Vargas on 05/09. Treatment Plan: - Control patient's pain with sedation. - Monitor urine output. - Remove hawkins when appropriate. #Chronic PEG tube dependence Treatment Plan: - Jevity 1.5 at 40 ml/hr x 24 hrs via PEG tube by pump (goal). If no IV fluids, water flushes of 35 ml/hr. - ProStat 30ml BID via PEG tube. - Appreciate snap shearer recommendations. - If increase profolol dose, will have to decrease feeds due to infused lipid emulsion and can increase triglycerides - Triglyceride level 05/11: 183. #Hepatitis (resolving) DDx: muscle injury vs hemolytic anemia vs myocarditis. - Muscle injury/rhabdomyolysis - supported by rising CK and normal ALT. - Hemolytic anemia - possible source of AST from RBC breakdown. - Myocarditis - les likely given normal troponin. Diagnostic Test: - AST 49 --> 106 --> 90 --> 49 --> 54. - ALT within normal range. - CK 1048 --> 3743 --> 1654. - LDH 352 --> 332. - Troponin <0.002. Treatment Plan: - Continue free water flushes. - Daily BMP. - Avoid hepatotoxics. #Hypoalbuminemia (improving) DDx: acute hepatitis vs nephrotic syndrome vs sepsis vs malnutrition vs diluational. Diagnostic Test: - UA had urine proteins 1+. - Albumin 4.9 --> 4.0 --> 3.8 --> 3.3 --> 2.7 --> 3.0. - Hgb and WBC also decreased with albumin, likely diluational. Treatment Plan: - Monitor LFTs, INR, and bilirubin. - Resume PEG tube feeds per snap shearer recommendations. Renal #Acute kidney injury (improving) DDx: hypotension, dehydration, or vasodilation from sepsis. Diagnositc Test: - Creatinine 1.3 (baseline: 0.7) -> 0.8 --> 1.2 --> 1.0. Treatment Plan: - Continue with free water flushes. - Daily renal panel to trend BUN, Cr, and electrolytes. - Avoid nephrotoxins. - Renally dose meds as appropriate. - Strict I&Os, monitor urine output closely. - Monitor for signs of volume overload or uremic symptoms. #Anion Gap Metabolic Acidosis (resolved) #Lactic acidosis (resolved) DDx: seizures vs sepsis vs acute kidney injury vs hypoperfusion. Likely from seizures as patient has no signs of systemic hypoperfusion such as skin mottling, decreased cap refills. Diagnostic Test: - Admission anion gap 22, lactic acid 16.0, bicarbonate 18.7. Treatment Plan: - Continue to treat sepsis and seizures. #Rhabdomyolysis (improving) DDx: seizures vs hyperthermia vs infectious myositis. Diagnostic Test: - CK 1048 --> 3743 --> 1654. - Temp 105F. - Witnessed seizure episode lasting 5-10 seconds, characterized by tonic-clonic activity prior to admission. - Potassium 5.2 on admission. Treatment Plan: - Continue free water flushes. - Monitor urine output. - Correct electrolyte abnormalities. - Control seizures with valproic acid and levetiracetam. - Acetaminophen as needed for fevers. - Monitor renal panel. Heme #Normocytic Anemia #Hematoma on left forearm DDx: Anemia of Inflammation vs dilutional anemia vs drug-induced anemia. Likely dilutional anemia since patient had normal hemoglobin on admission and from IV fluids per sepsis protocol. No signs of bleeding. Diagnostic Test: - Hemoglobin 14.0 --> 12.0 --> 10.5 --> 8.3 --> 9.3. Treatment Plan: - Monitor H&H. - Type and screen. - Transfusing for Hgb <7 or symptomatic. Endo #no active problems ID #Sepsis #Leukocytosis (resolved) #Bilateral chronic mastoiditis #Sinusitis #Bilateral otitis media #Bilateral otitis externa DDx: meningitis vs acute on chronic mastoiditis vs acute febrile illness. Diagnostic Test: - History of chronic mastoiditis. - CT Head 05/08: prominent sphenoid ethmoid maxillary antral sinusitis, bilateral chronic mastoiditis, bilateral otitis media. - CT Orbit Sella Inner 05/08: severe bilateral chronic mastoiditis, bilateral otitis externa and otitis media, bilateral cholesteatomas in the attics. - Met SIRS criteria on admission: T 105F, HR 176, RR 26, PaCO2 26, WBC 16.3. - Lactic acid 16.0 on admission. - UA negative. - Blood culture negative. - Lumbar puncture: clear, WBC 3, glucose 70, total protein 25. - CSF Streptococcus pneumonia Ag negative. - CSF Streptococcus B antigen negative. - CSF Neisseria meningitis B/E.coli K1 negative. - CSF Neisseria meningitis ACY/W135 Ag negative. - CSF haemophilus influenzae B Ag negative. - MRSA screen negative. Treatment Review (completed) - Discontinue IV rocephin 2 gm q12HR [05/08-05/11] - Discontinue IV vancomycin dosed by pharmacy [05/08-05/11] since MRSA screen is negative. - Discontinue IV acyclovir 700 mg [05/08-05/11] since LP negative. - Discontinued IV ampicillin 2 gm q4HR [05/08-05/09] as patient not in the age group at risk for Listeria infection. - Fluids: 30mL/kg -- 2 L NS fluid infusion and 1 L LR fluid infusion was given in the ED (completed). Treatment Plan: - Start Levofloxacin 750 mg and 150 mL to cover for Pseudomonas (renally dosed). - Plan to do ear culture per Dr. Jacky Cuadra Otolaryngology recs. - CSF enterovirus RNA pending. - CSF West Nile virus IgG antibody pending. - CSF West Nile virus IgM antibody. - Remove femoral central line. - Repeat blood cultures. Integumentary #Maculopapular rash to the buttocks DDx: contact dermatitis vs allergic dermatitis Treatment Plan - Patient no longer has diaper on as hawkins is in place. Anticipate rash to improve. Health Maintenance DVT prophylaxis: Lovenox 30 mg SC daily GI prophylaxis: none Diet: Jevity Hawkins: present Lines: Peripherals Drips: Propofol, Fentanyl Vent: AC/VC mode CODE STATUS: FULL CODE Patient discussed with my senior resident Dr. Baer and attending, Dr. Armendariz. Diaz Coppola DO, PGY 1 Attending Provider Attestation/Addendum Patient seen and examined with above resident, Diaz Coppola DO. I agree with the findings, assessment, and plan of care as documented except for any differences below. Patient remained stable hemodynamically, no breakthrough seizures. Continued low-grade temperature. Patient becomes agitated requiring high doses of sedation. Lumbar puncture completed, will transition over to Levaquin only given negative CSF studies. Patient started on tube feeds with no plan for extubation today. Plan for SAT/SBT tomorrow. Renal function continues to improve with Hawkins placement required for urinary retention and brisk output of 1.7 L. LFTs now improving, suspect this is related to rhabdomyolysis with downtrending CK as well. Will try to obtain opinion from his outpatient ENT, he has declined any intervention at this point and suggest air culture though suspect the Levaquin is adequate to cover likely similar infection in the ear with Pseudomonas. Continue to monitor gas exchange and secretions to determine optimal timing for extubation. Patient's family were updated at bedside on ongoing plan of care and remained agreeable. Total critical care time: Personally spent 35 minutes for review of physiologic parameters, directing plan of care throughout the day, and counseling family at bedside. This is exclusive of time spent teaching housestaff or performing any separate billable procedures. The patient remains at significant risk for further morbidity and mortality warranting close monitoring and care only available in the ICU. Critical care services required for acute hypoxic respiratory failure, healthcare associated pneumonia, otitis externa/mastoiditis bilateral, urinary retention, balanitis/paraphimosis, acute renal failure, and acute agitated delirium/metabolic encephalopathy.
[2025-05-11] MEDS: fentaNYL CIT INJ 50 mCg/ML AMP 2ML 100 MCG IVP (15:46)
[2025-05-11] MEDS: MIDAZOLAM INJ 1 MG/ML VIAL 2 ML 4 MG IVP ×2 (16:20→17:28)
--- NOTE | 2025-05-11 17:24 | PD.RESPRO ---
Documentation for date of: 05/11/25 Subjective Subjective Interval history: Patient examined at bedside in ICU. Remains intubated. Continues to spike fever with highest at 102 per nursing. EEG was negative for seizure activity. LP culture was negative. Empiric antibiotics were discontinued. Patient was switched to levofloxacin to treat mastoiditis with pseudomonal coverage. Labs are unremarkable. Plan to continue current antiseizure regimen. Exam Vital Signs Temp Pulse Resp BP Pulse Ox O2 Del Method O2 Flow Rate 102.0 F H 136 H 20 115/80 95 Mechanical Ventilation 50 05/11/25 16:01 05/11/25 17:01 05/11/25 06:47 05/11/25 17:01 05/11/25 17:01 05/09/25 18:01 05/09/25 18:01 FiO2 50 05/11/25 16:00 Narrative Exam General: sedated, intubated, on MV HEENT: NCAT, No JVD noted. Mucosa moist. pinpoint Pupils are equal and reactive to light bilaterally Cardiovascular: Normal S1 and S2. Regular rate and rhythm. Respiratory: Lungs are clear to auscultation bilaterally. No wheezing or crackles heard. Abdomen: Soft, nontender, not distended, normal bowel sounds. PEG tube in place : Paraphimosis of penis. Osborne inserted with red tinged urine Musculoskeletal: no pitting edema, muscle atrophy, Feet show fixed contractures with inward curvature. Spastic Neuro:deferred Objective Labs 05/13/25 06:30 05/13/25 04:57 Labs: Laboratory Results - last 24 hr 05/10/25 05/11/25 05/11/25 22:45 05:06 05:07 WBC 6.4 RBC 3.26 L Hgb 9.3 L Hct 28.2 L MCV 87 MCH 28.5 MCHC 33.0 RDW Std Deviation 46.9 H Plt Count 86 L D Neut % (Auto) 53 Lymph % (Auto) 25 Jerome % (Auto) 16 H Eos % (Auto) 6 Baso % (Auto) 0 Neut # (Auto) 3.4 Lymph # (Auto) 1.6 Jerome # (Auto) 1.0 H Eos # (Auto) 0.4 Baso # (Auto) 0.0 Immature Gran # (Auto) 0.04 H Absolute Nucleated RBC 0.00 Immature Gran % 1 H Nucleated RBC % 0 Puncture Site Right Radial ABG pH 7.33 L ABG pCO2 54 H D ABG pO2 93 ABG HCO3 28 H ABG O2 Saturation 98 ABG Base Excess 2 FiO2 35 Sodium 142 Potassium 3.6 Chloride 105 Carbon Dioxide 28.4 Anion Gap 9 BUN 12 Creatinine 1.0 Estim Creat Clear Calc 92.1 eGFR > 60 BUN/Creatinine Ratio 12 Glucose 100 Calculated Osmolality 282 Calcium 8.3 Corrected Calcium 9.1 Phosphorus 4.0 Magnesium 2.2 Total Bilirubin 0.4 AST 54 H ALT 33 Alkaline Phosphatase 81 D Total Creatine Kinase 1654 H D Total Protein 5.1 L Albumin 3.0 L Globulin 2.1 L Albumin/Globulin Ratio 1.4 Triglycerides 183 H CSF Appearance Clear CSF Color Colorless CSF WBC 3 CSF RBC 1000 CSF Cell Count Tube # Tube # 4 CSF Mononuclear WBCs 67 CSF Polynuclear WBCs 33 CSF Glucose 70 CSF Total Protein 25 CSF H.influenzae B Ag Negative CSF N.meningit ACY/W135 Negative CSF N.mening B/E.coli K1 Negative CSF Strep B Antigen Negative CSF Strep pneumoniae Ag Negative ABG Interpretation ABG results: 05/09/25 05/09/25 05/09/25 11:56 13:40 18:50 ABG pH 7.40 7.27 L D 7.28 L ABG pCO2 40 43 55 H D ABG pO2 131 H 53 L* D 70 L ABG HCO3 25 20 26 ABG O2 Saturation 99 H 81 L 92 ABG Base Excess 0 -7 L -2 05/10/25 05/11/25 00:14 05:06 ABG pH 7.35 7.33 L ABG pCO2 42 D 54 H D ABG pO2 103 D 93 ABG HCO3 23 28 H ABG O2 Saturation 99 H 98 ABG Base Excess -3 2 Quality Measures Quality Measures VTE prophylaxis (Lovenox) and sepsis Current suspected stage: sepsis Possible source: pulmonary Blood cultures ordered: yes Antibiotic ordered: Yes Assessment & Plan Assessment Current Active Medications: Generic Name Dose Route Start Last Admin Trade Name Freq PRN Reason Stop Dose Admin Albuterol/Ipratropium 3 ml 05/09/25 18:19 05/10/25 22:59 Albuterol/Ipratropium (Duoneb) Rt Racquel 3 Ml Nebu INH 06/08/25 18:18 3 ml Q2HR PRN Administration SHORTNESS OF BREATH OR WHEEZE Enoxaparin Sodium 30 mg 05/11/25 09:00 05/11/25 08:35 Enoxaparin Sod Inj 30 Mg/0.3 Ml Syringe SC 05/25/25 08:59 30 mg QDAY KYA Administration Propofol 1,000 mg in 100 mls @ 2.048 mls/hr 05/09/25 15:42 05/11/25 08:00 Diprivan Ivpb IV 06/08/25 15:41 45 mcg/kg/min .Q24H PRN 18.432 mls/hr PER PROTOCOL Titration Protocol 5 MCG/KG/MIN Fentanyl Citrate 2,500 mcg in 250 mls @ 2.5 mls/hr 05/09/25 16:02 05/11/25 10:00 Sublimaze Inj 2,500 Mcg/250 Ml Bag IV 05/14/25 16:01 250 mcg/hr .Q24H PRN 25 mls/hr PER PROTOCOL Titration Protocol 25 MCG/HR Valproic Acid 187.5 mg/ Sodium 51.875 mls @ 51.875 mls/hr 05/09/25 18:00 05/11/25 12:34 Chloride IV 06/07/25 17:59 51.875 mls/hr Q6HR KYA Administration Protocol Midazolam HCl 100 mg in 100 mls @ 1 mls/hr 05/09/25 18:43 Versed Pf Inj In Ns Premix IV 05/14/25 18:42 .Q24H PRN PER PROTOCOL Protocol 1 MG/HR Acetaminophen 1,000 mg in 100 mls @ 250 mls/hr 05/10/25 19:35 05/11/25 13:16 Ofirmev Inj IV 05/13/25 19:34 250 mls/hr Q6HR PRN Administration temp >99.9 Levofloxacin/Dextrose 750 mg in 150 mls @ 100 mls/hr 05/11/25 12:00 05/11/25 12:35 Levaquin Ivpb IV 05/18/25 11:59 100 mls/hr QDAY KYA Administration Levetiracetam 800 mg 05/08/25 21:00 05/11/25 08:35 Levetiracetam Inj 100 Mg/Ml Vial 5ml IV 06/07/25 20:59 800 mg BID KYA Administration Ofloxacin 5 drop 05/09/25 10:15 05/11/25 09:08 Ofloxacin Op Racquel 0.3% 5 Ml Btl BOTH EARS 05/18/25 10:14 5 drops BID KYA Administration Ondansetron HCl 4 mg 05/08/25 11:36 Ondansetron Inj 2 Mg/Ml Inj 2 Ml IVP 06/07/25 11:35 Q6HR PRN NAUSEA OR VOMITING Protocol Pharmacy Consult 1 each 05/08/25 16:12 Pharmacy To Consult Patient XX 06/07/25 16:11 PRN PRN CONSULT Plan David Baltazar is 24 yr male with PMH of chronic mastoiditis (previously had tympanostomy tube placed for recurrent otitis media, now removed), seizure disorder, recurrent pneumonia, cerebral palsy, chronic PEG tube, and asthma who was brought into ED on 05/08/25 for ongoing fever of over 24 hours and reported episode of witnessed seizure by ED. Patient was septic. Neurology was consulted to for LP to rule out meningitis. #Mastoiditis #rule out Meningitis #Tonic clonic seizure #Hx seizures #Cerebral palsy On admission he was noted to have fever of 105, leukocytosis 16, tachycardia 176, and tachypnic 26. CT orbit sella showed b/L otitis externa and media. Reduced mastoid aeration on the left, b/L chlestatomas. He was started on vancomycin, ceftriaxone 2g BID, ampicillin 2g q4hr, and acyclovir. EEG was negative for seizure activity. LP culture was negative. -dc continue vancomycin, ceftriaxone, and acyclovir -switched to Levofloxacine -continue IV Keppra 800mg BID -IV Depakote 187mg q6hr. -seizure precautions -midazolam for breakthrough seizure #Paraphimosis #Acute Kidney Injury #Anion Gap Metabolic Acidosis #Lactic acidosis #Elevated total creatine kinase #Normocytic Anemia Primary care team to manage above conditions and ongoing care needs. The patient's management plan was discussed with my attending physician Dr. Lang. Zakiya Delacruz, PGY-2 Attending Provider Attestation/Addendum I personally have seen and examined the patient at the bedside and agreed with the resident's findings, assessment and plan of care. Discontinue the current empiric antibiotics as hte CSF analysis is negative for infection. noted that his antibiotic got switched to Levaquin.
[2025-05-11] MEDS: MIDAZOLAM/NS 100 MG IVPB 100 MG/100 ML BAG IV (17:29)
--- NOTE | 2025-05-11 17:31 | XR_ITS ---
EXAMINATION: AP chest single view TECHNIQUE: AP portable semiupright chest single view Date and time: May 11, 2025, comparison 2000 2512 0 3:00 p.m. INDICATIONS: O2 desaturation today, hypoxia post intubation FINDINGS: No significant cardiac enlargement Tracheal tube tip 3.7 cm above haresh Bilateral perihilar pneumonia Reduced inspiratory effort IMPRESSION: Bilateral perihilar pneumonia
[2025-05-11] MEDS: PROPOFOL 1,000 MG IVPB 1,000 MG/100 ML VIAL 20.48 MG IV ×2 (18:50→23:42)
--- NOTE | 2025-05-11 20:54 | PC.RT ---
at 17:43 took over for RT Katherine per RT Katherine pt bitting on ETT a bite block place on left side pt was suctioned inline suction pass through easy spo2 100% pt tolerating vent settings pt vent settings change back to prvc/acvc 370, RR20, fio2 50% peep of 5 itime of .[address] Pablozo aware and was at bedside at this time.
[2025-05-11 21:58] LABS: Vancomycin,Trough 22.5 mcg/mL (5.0-10.0)
[2025-05-11] MEDS: ALBUTEROL/IPRATROPIUM (Duoneb) RT SOL 3 ML NEBU INH (22:01)
[2025-05-11] MEDS: fentaNYL 2,500 MCG/250 ML BAG 2,500 MCG/250 ML BAG 30 MCG IV (23:33)
[2025-05-12] VITALS (37 sets, daily range): BP systolic 105–144; BP diastolic 63–91; PULSE 61–134; RESP 13–30; TEMP 37–38.3; O2SAT 92–100
[2025-05-12 01:26] LABS: Allen Test Performed/OK; Base Excess 3 (-3-3); HCO3 29 mEq/L (20-26); Inspired Oxygen, FIO2 45 %; O2 Saturation 98 % (91-98); PCO2 48 mmHg (32.0-48.0); PO2 94 mmHg (83-108); Puncture Site Right Radial; pH, Arterial 7.39 (7.35-7.45)
[2025-05-12] MEDS: ALBUTEROL/IPRATROPIUM (Duoneb) RT SOL 3 ML NEBU INH (03:42)
[2025-05-12] MEDS: PROPOFOL 1,000 MG IVPB 1,000 MG/100 ML VIAL 14.336 MG IV (03:54)
[2025-05-12 04:16] LABS: Base Excess 5 (-3-3); HCO3 29 mEq/L (20-26); O2 Saturation 99 % (91-98); PCO2 41 mmHg (32.0-48.0); PO2 105 mmHg (83-108); pH, Arterial 7.46 (7.35-7.45)
[2025-05-12 04:19] LABS: Allen Test Performed/OK; Inspired Oxygen, FIO2 45 %; Puncture Site Right Radial
--- NOTE | 2025-05-12 04:22 | PC.RT ---
fio2 titrated to 35% per abg results
--- NOTE | 2025-05-12 04:32 | PC.RT ---
per DR. camarillo RR titrate to 18 per abg results nurse jackelin made aware.
[2025-05-12 05:04] LABS: Basophils # (Auto) 0.0 Thou/mm3 (0.0-0.2); Basophils % (Auto) 0 % (0-2.5); Eosinophils # (Auto) 0.3 Thou/mm3 (0.0-0.5); Eosinophils % (Auto) 5 % (0-10); Hematocrit 24.0 % (41.0-53.0); Immature Granulocytes Auto 0.31 Thou/mm3 (0.00-0.00); Lymphocytes # (Auto) 2.2 Thou/mm3 (1.0-4.8); Lymphocytes % (Auto) 31 % (10-50); Mean Corpuscular HGB Conc 33.8 g/dl (31.0-37.0); Mean Corpuscular Hemoglobin 28.6 pg (25.0-35.0); Mean Corpuscular Volume 85 fL (80-100); Monocytes # (Auto) 1.2 Thou/mm3 (0.0-0.8); Monocytes % (Auto) 16 % (0-12); Neutrophils # (Auto) 3.2 Thou/mm3 (1.8-7.7); Neutrophils % (Auto) 44 % (37-80); Nucleated Red Blood Cell # 0.02 Thou/mm3 (0.00-0.00); Nucleated Red Blood Cell % 0 /100 WBC (0); RDW Standard Deviation 45.7 fL (35.1-43.9); Red Blood Count 2.83 Miln/mm3 (4.50-5.90); White Blood Count 7.2 Thou/mm3 (3.8-10.6)
[2025-05-12 05:22] LABS: Alanine Aminotransferase 60 U/L (10-49); Albumin, Serum 2.7 gm/dL (3.5-5.0); Albumin/Globulin Ratio 1.4 (1.2-2.2); Alkaline Phosphatase 121 U/L (46-116); Anion Gap 9 (7-16); Aspartate Amino Transferase 92 U/L (0-34); BUN/Creatinine Ratio 13 Ratio (12-20); Bilirubin,Total 0.6 mg/dL (0.3-1.2); Blood Urea Nitrogen 10 mg/dL (9-23); Calcium 7.9 mg/dL (8.3-10.6); Calcium (Corrected) 8.9 mg/dL (8.5-10.1); Carbon Dioxide 28.2 mMol/L (20.0-31.0); Chloride 104 mMol/L (98-107); Creatinine (Component) 0.8 mg/dL (0.6-1.3); Estimated Creatinine Clearance 116.0 mL/min (>60); Globulin 1.9 gm/dL (2.3-3.5); Glucose 110 mg/dL (74-106); Magnesium 1.8 mg/dL (1.6-2.6); Osmolality,Calculated 281 (275-295); Phosphorous 4.0 mg/dL (2.4-5.1); Potassium 3.5 mMol/L (3.4-5.1); Sodium 141 mMol/L (136-145); Total Protein 4.6 gm/dL (5.7-8.2); eGFR > 60 See Note
[2025-05-12 05:29] LABS: Hemoglobin 8.1 g/dL (13.5-16.0); Platelet Count 65 Thou/mm3 (140-440)
[2025-05-12 05:51] LABS: Slide Review Platelets confirmed
[2025-05-12] MEDS: Magnesium Sulfate 2 GM Ivpb 2 GM/50 ML BAG IV (08:11)
[2025-05-12] MEDS: POTASSIUM CHLORIDE 10% 20 MEQ/15 ML UDC 40 MEQ NG (08:11)
[2025-05-12] MEDS: ENOXAPARIN SOD INJ 30 MG/0.3 ML SYRINGE SC (08:11)
[2025-05-12] MEDS: LEVOFLOXACIN/D5W 750MG IVPB 750 MG/150 ML BAG 100 MG IV (08:11)
[2025-05-12] MEDS: levETIRAcetam INJ 100 MG/ML VIAL 5ML 800 MG IV ×2 (08:12→22:06)
[2025-05-12] MEDS: DEXMEDETOMIDINE 400 MCG IVPB 400 MCG/100 ML BAG IV (09:03)
[2025-05-12] MEDS: EPINEPHrine RT SOL 0.5 ML NEBU INH (09:38)
[2025-05-12] MEDS: DEXAMETHASONE SOD PHOS INJ 4 MG/ML VIAL IVP (10:07)
[2025-05-12] MEDS: OFLOXACIN OP SOL 0.3% 5 ML BTL 5 DROP BOTH EARS ×2 (10:09→20:39)
[2025-05-12 11:55] LABS: Base Excess 4 (-3-3); HCO3 29 mEq/L (20-26); Inspired Oxygen, FIO2 21 %; O2 Saturation 90 % (91-98); PCO2 48 mmHg (32.0-48.0); pH, Arterial 7.39 (7.35-7.45)
[2025-05-12 11:56] LABS: PO2 58 mmHg (83-108); Puncture Site Right Radial
[2025-05-12 11:57] LABS: Allen Test Performed/OK
[2025-05-12] MEDS: ACETAMINOPHEN IVPB 1,000 MG/100 ML VIAL 250 MG IV ×2 (13:23→20:52)
[2025-05-12] MEDS: MEROPENEM INJ 1,000 MG in SODIUM CHLORIDE 0.9% (Popper) 50 ML 100 MG IV ×2 (13:24→22:08)
[2025-05-12] MEDS: IPRATROPIUM RT 0.5 MG/ 2.5 ML NEBU INH ×2 (13:47→18:45)
--- NOTE | 2025-05-12 14:34 | ESPR_ITS ---
Documentation for date of: 05/12/25 Subjective Subjective Interval history: 24-year-old male with a past medical history significant for cerebral palsy, asthma, seizure disorder, chronic mastoiditis (previously treated with tympanostomy tube placement for recurrent otitis media, now removed), recurrent pneumonia, and chronic PEG tube dependence, presented to the ED on 05/08/2025 with a fever lasting over 24 hours. The patient also had a witnessed seizure episode lasting 5-10 seconds, characterized by tonic-clonic activity confined to the left side of the body. ED Course: -Initial vitals were: BP 122/84, HR 176, RR 26, T 105F, O2 sat 96% on room air. -Labs significant for: CBC showed a WBC of 16.3. CMP showed Na 148, K 5.2, Cl 107, bicarbonate 18.7, anion gap 22, creatinine 1.3 (baseline 0.7), lactic acid 3.2, alkaline phosphatase 120, LDH 352, total CK 1048, procalcitonin: 0.14. Urinalysis negative. Influenza A/B testing was negative. -Imaging included: EKG showed supraventricular tachycardia of HR [address] and T-wave abnormality. CXR showed no aspiration pneumonia but was noted to be of poor inspiratory effort. CT CAP w/o contrast seemed to show no gross infiltrates or other notable findings but was noted to be severely degraded by patient motion. -In the ED, patient was given acetaminophen 975 mg, ceftriaxone 1 gram IV, midazolam 2 mg IV x1, albuterol 2.5 mg, Zosyn 3.375 gram, 2 L NS fluid infusion, and 1 L LR fluid infusion. In the ED, the patient was agitated and pulled out his IV. Attempts at peripheral access were unsuccessful, and a right femoral central line was placed. Telemetry Course: Patient was admitted to telemetry for further workup and management of sepsis of unknown source, with concern for meningitis. Empiric broad-spectrum antibiotic and antiviral therapy were started, consisting of ceftriaxone 2g IV twice daily, vancomycin (pharmacy to dose), ampicillin, and acyclovir. Neurology was consulted. CT of the orbit, sella, and inner ear was ordered given the patient?s history of acute mastoiditis, which showed severe bilateral chronic mastoiditis, bilateral otitis externa, bilateral otitis media, and bilateral cholesteatomas in the attics. CT head was also performed and was negative for acute hemorrhage, mass effect, or midline shift. Findings included prominent sphenoid, ethmoid, and maxillary antral sinusitis, bilateral chronic mastoiditis, bilateral otitis media, and opacification in the bilateral attics. For the patient?s seizures, his home medications of valproic acid and levetiracetam were restarted. Orders for midazolam and Haldol were placed as needed for breakthrough seizures and agitation. An ice pack was ordered for his paraphimosis. Infectious disease was also consulted. Primary team consulted ICU team. On 05/09, two rapid responses were initiated due to the patient?s escalating agitation and anxiety. Patient appeared to be in significant pain from his paraphimosis. The primary team consulted the ICU for further management, as the patient had already received diazepam, haldol, versed, and dilaudid earlier that morning, with inadequate relief. Additionally, there was concern over a decline in his pO2 levels. The initial ABG at 11:56 showed: pH 7.40, pCO2 40, pO2 131, HCO3 25. A repeat ABG at 13:40 revealed: pH 7.27, pCO2 43, pO2 53, HCO3 20. Upon evaluation by the ICU team, the patient was noted to be extremely agitated and wearing an oxygen mask, with audible gurgling sounds coming from the upper airway, raising concern for potential airway compromise. Given the risk of inadequate airway protection, the decision was made to transfer the patient to the ICU for intubation and further management. In the ICU, the patient was intubated. Urology, Dr. Vargas, was consulted earlier in the day. He was able to successfully perform a reduction of the paraphimosis. Interval History: 05/12/2025: Patient weaned down on sedation. Tmax 102 degrees at 1600 hrs. 05/11. Patient developed mild hepatitis, likely response to medications, will monitor. Patient successfully weaned off of propofol and fentanyl, Precedex initiated. Patient extubated, placed on high flow. Continues to have high secretions, treated with chest PT, oral suctioning as needed, ipratropium breathing treatments scheduled. Patient notably agitated, treating with Benadryl as needed and Precedex drip. Will continue to try and decrease sedation while maintaining patent airway. Sputum culture grew thurman resistant Pseudomonas, meropenem initiated. Will continue Levaquin for now pending cultures. Ear cultures taken. Patient maintaining good urine output, will replete volume if patient exceeds greater than 2 L output. 05/11/2025: Overnight, the patient became increasingly agitated and was observed biting on the endotracheal tube. In response, propofol was increased from 40 mcg/kg/min to 45 mcg/kg/min, and fentanyl was increased from 200 mcg/hr to 250 mcg/hr. The plan is to attempt weaning the patient off sedation today, and work towards extubation. A lumbar puncture was performed, which showed 3 WBCs. Infection from meningitis is less likely, but culture results are pending for confirmation. Today, the patient has been experiencing a low-grade fever, with the highest recorded temperature being 100.4?F. After the Hawkins catheter was placed, the patient had 1700 cc of urine output over the past 12 hours. Followed up with Dr. Jacky Cuadra (ENT in [place]). Dr. Cuadra stated that there is nothing additional he could identify on the CT imaging that the radiologist has not already seen. And that if there was something it would likely be surgical and he does not perform surgeries. He recommended covering for Pseudomonas with clindamycin and Unasyn. The plan is to start levofloxacin for Pseudomonas coverage as well. Additionally, Dr. Cuadra suggested culturing the ear. 05/10/2025: Patient remained sedated with propofol and fentanyl throughout the night, maintaining adequate sedation levels. Around 2 AM, the propofol dose was reduced due to MAP in the 60s. 1L of LR was administered on top of the ongoing IV maintenance fluids at 100cc/hr. Following this, the MAP remained stable above 65. At 6:50 PM on 05/09, an ABG revealed a pH of 7.28, pCO2 of 55, and pO2 of 70, indicative of respiratory acidosis. Patient was given 5 grams of magnesium and 15 mg of albuterol over the course of an hour to promote bronchodilation. Magnesium also needed to be repleted. A repeat ABG showed normalization of the respiratory parameters. Patient's Hawkins catheter was removed and replaced with a QiVi catheter overnight per the patient's father?s request. However, the patient developed urinary retention. A bladder scan performed at 6 AM showed 295cc of retained urine, and a subsequent scan in the afternoon revealed 439cc. Exam Vital Signs Temp Pulse Resp BP Pulse Ox O2 Del Method O2 Flow Rate 100 F 113 H 30 H 134/91 H 95 High Flow Nasal Cannula 40 05/12/25 12:00 05/12/25 13:51 05/12/25 13:51 05/12/25 13:01 05/12/25 13:51 05/12/25 12:00 05/12/25 13:51 FiO2 60 05/12/25 13:51 Narrative Exam General: Nonverbal at baseline. Patient appears agitated, lots of purposeless movements Skin: Rash near buttock area. Large bruise right upper extremity. Head: Normocephalic, atraumatic. Dried blood around nares. Eyes: PERRL. Anicteric. Mouth/Throat: Poor dentition. Oral mucosa moist. No obvious lesions in oropharynx. Cardiovascular: Regular rate and rhythm, no murmur. Respiratory: Rhonchi to auscultation bilateral lung thompson t. Gastrointestinal: PEG tube in place. Soft, non-distended, no guarding or rebound tenderness. Genitourinary: Decrease swelling of glans penis. Extremities: No edema, cyanosis, mottling, clubbing. 2+ radial pulse bilaterally, 2+ posterior tibial pulse bilaterally. Objective Labs 05/12/25 04:15 05/12/25 04:15 Labs: Laboratory Results - last 24 hr 05/11/25 05/12/25 05/12/25 21:25 01:18 03:58 WBC RBC Hgb Hct MCV MCH MCHC RDW Std Deviation Plt Count Neut % (Auto) Lymph % (Auto) Hall % (Auto) Eos % (Auto) Baso % (Auto) Neut # (Auto) Lymph # (Auto) Hall # (Auto) Eos # (Auto) Baso # (Auto) Immature Gran # (Auto) Absolute Nucleated RBC Immature Gran % Nucleated RBC % Puncture Site Right Radial Right Radial ABG pH 7.39 7.46 H ABG pCO2 48 41 ABG pO2 94 105 ABG HCO3 29 H 29 H ABG O2 Saturation 98 99 H ABG Base Excess 3 5 H FiO2 45 45 Sodium Potassium Chloride Carbon Dioxide Anion Gap BUN Creatinine Estim Creat Clear Calc eGFR BUN/Creatinine Ratio Glucose Calculated Osmolality Calcium Corrected Calcium Phosphorus Magnesium Total Bilirubin AST ALT Alkaline Phosphatase Total Protein Albumin Globulin Albumin/Globulin Ratio Vancomycin Trough 22.5 H* Misc Test Result 05/12/25 05/12/25 04:15 11:50 WBC 7.2 RBC 2.83 L Hgb 8.1 L Hct 24.0 L MCV 85 MCH 28.6 MCHC 33.8 RDW Std Deviation 45.7 H Plt Count 65 L D Neut % (Auto) 44 Lymph % (Auto) 31 Hall % (Auto) 16 H Eos % (Auto) 5 Baso % (Auto) 0 Neut # (Auto) 3.2 Lymph # (Auto) 2.2 Hall # (Auto) 1.2 H Eos # (Auto) 0.3 Baso # (Auto) 0.0 Immature Gran # (Auto) 0.31 H Absolute Nucleated RBC 0.02 H Immature Gran % 4 H Nucleated RBC % 0 Puncture Site Right Radial ABG pH 7.39 ABG pCO2 48 ABG pO2 58 L* D ABG HCO3 29 H ABG O2 Saturation 90 L ABG Base Excess 4 H FiO2 21 Sodium 141 Potassium 3.5 Chloride 104 Carbon Dioxide 28.2 Anion Gap 9 BUN 10 Creatinine 0.8 Estim Creat Clear Calc 116.0 eGFR > 60 BUN/Creatinine Ratio 13 Glucose 110 H Calculated Osmolality 281 Calcium 7.9 L Corrected Calcium 8.9 Phosphorus 4.0 Magnesium 1.8 Total Bilirubin 0.6 AST 92 H ALT 60 H Alkaline Phosphatase 121 H D Total Protein 4.6 L Albumin 2.7 L Globulin 1.9 L Albumin/Globulin Ratio 1.4 Vancomycin Trough Misc Test Result Platelets confirmed ABG Interpretation ABG results: 05/09/25 05/09/25 05/09/25 11:56 13:40 18:50 ABG pH 7.40 7.27 L D 7.28 L ABG pCO2 40 43 55 H D ABG pO2 131 H 53 L* D 70 L ABG HCO3 25 20 26 ABG O2 Saturation 99 H 81 L 92 ABG Base Excess 0 -7 L -2 05/10/25 05/11/25 05/12/25 00:14 05:06 01:18 ABG pH 7.35 7.33 L 7.39 ABG pCO2 42 D 54 H D 48 ABG pO2 103 D 93 94 ABG HCO3 23 28 H 29 H ABG O2 Saturation 99 H 98 98 ABG Base Excess -3 2 3 05/12/25 05/12/25 03:58 11:50 ABG pH 7.46 H 7.39 ABG pCO2 41 48 ABG pO2 105 58 L* D ABG HCO3 29 H 29 H ABG O2 Saturation 99 H 90 L ABG Base Excess 5 H 4 H Quality Measures Quality Measures VTE prophylaxis (SCDs) and sepsis Current suspected stage: sepsis Possible source: pulmonary Blood cultures ordered: yes Antibiotic ordered: Yes Assessment & Plan Assessment Current Active Medications: Generic Name Dose Route Start Last Admin Trade Name Freq PRN Reason Stop Dose Admin Albuterol/Ipratropium 3 ml 05/09/25 18:19 05/12/25 03:42 Albuterol/Ipratropium (Duoneb) Rt Racquel 3 Ml Nebu INH 06/08/25 18:18 3 ml Q2HR PRN Administration SHORTNESS OF BREATH OR WHEEZE Enoxaparin Sodium 30 mg 05/11/25 09:00 05/12/25 08:11 Enoxaparin Sod Inj 30 Mg/0.3 Ml Syringe SC 05/25/25 08:59 30 mg On Hold: 05/12/25 11:18 QDAY KYA Administration Propofol 1,000 mg in 100 mls @ 2.048 mls/hr 05/09/25 15:42 05/12/25 08:00 Diprivan Ivpb IV 06/08/25 15:41 10 mcg/kg/min .Q24H PRN 4.096 mls/hr PER PROTOCOL Titration Protocol 5 MCG/KG/MIN Fentanyl Citrate 2,500 mcg in 250 mls @ 2.5 mls/hr 05/09/25 16:02 05/12/25 08:35 Sublimaze Inj 2,500 Mcg/250 Ml Bag IV 05/14/25 16:01 0 mcg/hr .Q24H PRN 0 mls/hr PER PROTOCOL Titration Protocol 25 MCG/HR Valproic Acid 187.5 mg/ Sodium 51.875 mls @ 51.875 mls/hr 05/09/25 18:00 05/12/25 13:26 Chloride IV 06/07/25 17:59 50 mls/hr Q6HR KYA Administration Protocol Acetaminophen 1,000 mg in 100 mls @ 250 mls/hr 05/10/25 19:35 05/12/25 13:23 Ofirmev Inj IV 05/13/25 19:34 250 mls/hr Q6HR PRN Administration temp >99.9 Midazolam HCl 100 mg in 100 mls @ 1 mls/hr 05/11/25 17:25 05/12/25 00:30 Versed Pf Inj In Ns Premix IV 05/16/25 17:24 0 mg/hr .Q24H PRN 0 mls/hr PER PROTOCOL Titration Protocol 1 MG/HR Dexmedetomidine/Sodium Chloride 400 mcg in 100 mls @ 3.505 mls/hr 05/12/25 08:41 05/12/25 09:03 Precedex Ivpb IV 06/11/25 08:40 0.2 mcg/kg/hr .Q24H PRN 3.505 mls/hr Per PROTOCOL Administration Protocol 0.2 MCG/KG/HR Meropenem 1,000 mg/ Sodium 50 mls @ 100 mls/hr 05/12/25 14:00 05/12/25 13:24 Chloride IV 05/19/25 13:59 100 mls/hr Q8HR KYA Administration Levofloxacin/Dextrose 750 mg in 150 mls @ 100 mls/hr 05/13/25 09:00 Levaquin Ivpb IV 05/18/25 08:59 QDAY KYA Ipratropium [place] 0.5 mg 05/12/25 12:00 05/12/25 13:47 Ipratropium Rt 0.5 Mg/ 2.5 Ml Nebu INH 06/11/25 11:59 0.5 mg Q6HR KYA Administration Levetiracetam 800 mg 05/08/25 21:00 05/12/25 08:12 Levetiracetam Inj 100 Mg/Ml Vial 5ml IV 06/07/25 20:59 800 mg BID KYA Administration Ofloxacin 5 drop 05/09/25 10:15 05/12/25 10:09 Ofloxacin Op Racquel 0.3% 5 Ml Btl BOTH EARS 05/18/25 10:14 5 drops BID KYA Administration Ondansetron HCl 4 mg 05/08/25 11:36 Ondansetron Inj 2 Mg/Ml Inj 2 Ml IVP 06/07/25 11:35 Q6HR PRN NAUSEA OR VOMITING Protocol Pantoprazole Sodium 40 mg 05/12/25 11:25 05/12/25 13:23 Pantoprazole Inj 40 Mg Vial IVP 06/11/25 11:24 40 mg QDAY KYA Administration Pharmacy Consult 1 each 05/08/25 16:12 Pharmacy To Consult Patient XX 06/07/25 16:11 PRN PRN CONSULT Sodium Chloride 3 ml 05/12/25 09:33 Sodium Chloride Rt Racquel 0.9% 3 Ml Nebu INH 06/11/25 09:32 PRN PRN SOLN Plan 24-year-old male with cerebral palsy, asthma, seizure disorder, chronic mastoiditis, recurrent pneumonia, and chronic PEG tube dependence presented with fever and seizure, was admitted for sepsis workup, and later transferred to the ICU for intubation due to concerns about airway protection. Neurology #Breakthrough tonic clonic seizure #History of seizures #Cerebral palsy DDx: likely secondary to sepsis vs electrolyte imbalances vs medication non- compliance or inadequate medication dosing vs hypoglycemia vs dehydration. Diagnosis: - Temperature of 105F on admission. - Sodium 148 and potassium 5.2 on admission. - EEG unremarkable Treatment Plan: - Continue valproic acid 187.5 mg Q6H. - Continue levetiracetam 800mg BID. - Adjust seizure medications if breakthrough seizures persist. - Seizure precautions. - Aspiration precautions. - Repeat CBC, electrolytes, renal function, and liver function tests to monitor for any metabolic derangements contributing to seizures. #Chemical sedation #Agitation Patient was extremely agitated before ICU admission, likely due to pain from paraphimosis. Patient initially sedated with propofol and fentanyl, titrated to Precedex with Benadryl as needed Diagnostic Test: - 05/10 AM: Patient's RASS was -4 : no response to voice, but movement to physical stimulation. - 05/11 AM: Patient's RASS was -4. - 05/12 AM: Patient active but not opening eyes, mobile, appears to be in distress Treatment Plan: - Precedex with RASS goal 0 - Diphenhydramine 50 mg IV every 6 hour as needed for agitation Cardiovascular #no active problems Respiratory #Recent extubation #Acute hypoxic respiratory failure Diagnostic Test: - ABG 05/09 at 11:56: pH 7.40, pCO2 40, pO2 131, HCO3 25. - ABG 05/09 at 13:40: pH 7.27, pCO2 43, pO2 53, HCO3 20. - ABG 05/09 at 18:50: pH 7.28, pCO2 55, pO2 70, HCO3 26. - ABG 05/10 at 00:14: pH 7.35, pCO2 41, pO2 103, HCO3 23. - ABG 05/11 at 05:06: pH 7.33, pCO2 54, pO2 93, HCO3 28. - CXR :: Mild bilateral perihilar pneumonia. To assess for ventilator associated pneumonia. Not much change from 05/09 CXR. - Patient extubated to HFNC 05/12 Treatment Plan: - HFNC, likely discontinue tomorrow - Respiratory therapy to do airway suction, cautious use - Ipratropium 0.5 mg every 6 hours - CPT twice daily #Bronchospasm #History of asthma Diagnostic Test: - Although the patient has a history of asthma, the bronchospasm is most likely from the irritant effect of blood in the airway. A small amount of blood, which was likely from dryness of the nasal mucosa, was suctioned out during intubation. Treatment Plan: - Magnesium for bronchodilatory effect as needed. - Albuterol as needed. GI, , F/E/N #Acute urinary retention (resolved) Diagnostic Test - Bladder scan at 6AM on 05/10: 295 cc. - Bladder scan at noon on 05/10: 495 cc. - Hawkins was reinserted on 05/10 with family's permission. After reinsertion of the Hawkins catheter, 700cc of brown urine was drained. Treatment Plan - Reinserted hawkins catheter. - Monitor urine output, replace fluid if needed #Paraphimosis (resolved) #Balanitis (resolving) Diagnostic Test: - Edema and tenderness of the glans penis. - Swelling of the distal retracted foreskin. - Constricting band of tissue proximal to the head of the penis at the coronal sulcus. - Hawkins was removed on 05/09 and transitioned to Oivi external urinary catheter. Discussed with family about the need to reinsert hawkins due to the patient's acute urinary retention. Family were in agreement with this plan. Hawkins was reinserted on 05/10 due to urinary retention. - S/p reduction of the paraphimosis by Dr. Vargas on 05/09. Treatment Plan: - Control patient's pain with sedation. - Monitor urine output. - Remove hawkins when appropriate. #Chronic PEG tube dependence Treatment Plan: - Jevity 1.5 at 40 ml/hr x 24 hrs via PEG tube by pump (goal). If no IV fluids, water flushes of 35 ml/hr. - ProStat 30ml BID via PEG tube. - Appreciate camp program director recommendations. - Triglyceride level 05/11: 183. #Hepatitis DDx: muscle injury vs hemolytic anemia vs myocarditis vs medication induced - Muscle injury/rhabdomyolysis - supported by rising CK and normal ALT. - Hemolytic anemia - possible source of AST from RBC breakdown. - Myocarditis - les likely given normal troponin. - Patient receivedmultiple medications that could potentially cause hepatotoxicity in ICU -Initial resolving, WNL LFTs 05/11, slight increase 05/12 Diagnostic Test: - AST 92. - ALT 60 -ALP 121 - CK 1048 --> 3743 --> 1654. - LDH 352 --> 332. - Troponin <0.002. Treatment Plan: - Continue free water flushes. - Daily BMP. - Avoid hepatotoxics. #Hypoalbuminemia (improving) DDx: acute hepatitis vs nephrotic syndrome vs sepsis vs malnutrition vs diluational. Diagnostic Test: - UA had urine proteins 1+. - Albumin 4.9 --> 4.0 --> 3.8 --> 3.3 --> 2.7 --> 3.0. - Hgb and WBC also decreased with albumin, likely diluational. Treatment Plan: - Monitor LFTs, INR, and bilirubin. - Resume PEG tube feeds per camp program director recommendations. Renal #Acute kidney injury (resolved) DDx: hypotension, dehydration, or vasodilation from sepsis. Diagnositc Test: - Creatinine 1.3 (baseline: 0.7) -> 0.8 --> 1.2 --> 1.0. Treatment Plan: - Continue with free water flushes. - Daily renal panel to trend BUN, Cr, and electrolytes. - Avoid nephrotoxins. - Renally dose meds as appropriate. - Strict I&Os, monitor urine output closely. - Monitor for signs of volume overload or uremic symptoms. #Anion Gap Metabolic Acidosis (resolved) #Lactic acidosis (resolved) DDx: seizures vs sepsis vs acute kidney injury vs hypoperfusion. Likely from seizures as patient has no signs of systemic hypoperfusion such as skin mottling, decreased cap refills. Diagnostic Test: - Admission anion gap 22, lactic acid 16.0, bicarbonate 18.7. Treatment Plan: - Continue to treat sepsis and seizures. #Rhabdomyolysis (improving) DDx: seizures vs hyperthermia vs infectious myositis. Diagnostic Test: - CK 1048 --> 3743 --> 1654. - Temp 105F. - Witnessed seizure episode lasting 5-10 seconds, characterized by tonic-clonic activity prior to admission. - Potassium 5.2 on admission. Treatment Plan: - Continue free water flushes. - Monitor urine output. - Correct electrolyte abnormalities. - Control seizures with valproic acid and levetiracetam. - Acetaminophen as needed for fevers. - Monitor renal panel. Heme #Normocytic Anemia #Hematoma on left forearm DDx: Anemia of Inflammation vs dilutional anemia vs drug-induced anemia. Likely dilutional anemia since patient had normal hemoglobin on admission and from IV fluids per sepsis protocol. No signs of bleeding. Diagnostic Test: - Hemoglobin 14.0 --> 12.0 --> 10.5 --> 8.3 --> 9.3 --> 8.1 Treatment Plan: - Monitor H&H. - Type and screen. - Transfusing for Hgb <7 or symptomatic. #Thrombocytopenia DDx: Dilutional versus consumption versus increased destruction due to sepsis Initial decrease is likely due to dilutional in setting of IV fluids, however his WBC and hemoglobin have leveled off platelets have down trended Diagnostic test: - Platelets: 209 --> 167 --> 133 --> 86 --> 65 Treatment plan: - Monitor daily labs - Avoid excessive oral tracheal suctioning in setting of previous bleed and thrombocytopenia - SCDs for DVT prophylaxis Endo #no active problems ID #Sepsis #Leukocytosis (resolved) #Bilateral chronic mastoiditis #Sinusitis #Bilateral otitis media #Bilateral otitis externa DDx: meningitis vs acute on chronic mastoiditis vs acute febrile illness. Diagnostic Test: - History of chronic mastoiditis. - CT Head 05/08: prominent sphenoid ethmoid maxillary antral sinusitis, bilateral chronic mastoiditis, bilateral otitis media. - CT Orbit Sella Inner 05/08: severe bilateral chronic mastoiditis, bilateral otitis externa and otitis media, bilateral cholesteatomas in the attics. - Met SIRS criteria on admission: T 105F, HR 176, RR 26, PaCO2 26, WBC 16.3. - Lactic acid 16.0 on admission. - UA negative. - Blood culture negative. - Lumbar puncture: clear, WBC 3, glucose 70, total protein 25. - CSF Streptococcus pneumonia Ag negative. - CSF Streptococcus B antigen negative. - CSF Neisseria meningitis B/E.coli K1 negative. - CSF Neisseria meningitis ACY/W135 Ag negative. - CSF haemophilus influenzae B Ag negative. - MRSA screen negative. - Sputum culture 1+ thurman resistance Pseudomonas -Bilateral ear cultures pending Treatment Review (completed) - Discontinue IV rocephin 2 gm q12HR [05/08-05/11] - Discontinue IV vancomycin dosed by pharmacy [05/08-05/11] since MRSA screen is negative. - Discontinue IV acyclovir 700 mg [05/08-05/11] since LP negative. - Discontinued IV ampicillin 2 gm q4HR [05/08-05/09] as patient not in the age group at risk for Listeria infection. - Fluids: 30mL/kg -- 2 L NS fluid infusion and 1 L LR fluid infusion was given in the ED (completed). -Femoral central line removed, replaced with peripheral access Treatment Plan: - Start Levofloxacin 750 mg (renally dosed). - Meropenem 1 g IV every 8 hour (started 05/12) - Plan to do ear culture per Dr. Jacky Cuadra Otolaryngology recs, results pending - CSF enterovirus RNA pending. - CSF West Nile virus IgG antibody pending. - CSF West Nile virus IgM antibody. - Repeat blood cultures. Integumentary #Maculopapular rash to the buttocks DDx: contact dermatitis vs allergic dermatitis Treatment Plan - Patient no longer has diaper on as hawkins is in place. Anticipate rash to improve. Health Maintenance DVT prophylaxis: Lovenox held, SCDs GI prophylaxis: Protonix IV Diet: Jevity Hawkins: present Lines: Peripherals Drips: Precedex Vent: HFNC CODE STATUS: FULL CODE Patient discussed with attending, Dr. Armendariz. Kamlesh Baer MD PGY?2 Attending Provider Attestation/Addendum Patient seen and examined with the above resident, Kamlesh Baer MD. I agree with the findings, assessment, and plan of care as documented except for any differences below. Patient successfully extubated to low flow NC but still at significant risk. Continues to have significant secretions. Isolated MDR psuedomonas and started on meroponem, stopped Levaquin. Sample from ear also sent. Chest film unchanged. Patient far more awake today but given cognitive impairment due to CP unable to follow commands. Responded well to racemic epinephrine, benadryl and dexamethasone with placement on HHHFNC to facilitate comfort ad work of breathing. Monitor closely in the ICU for decline again given baseline issues with secretions and ability to swallow. TF to be held remainder of day and reassess tomorrow. Mother updated after extubation. Sitter in place. Resident staff to speak with father/ mother with health care attorney this afternoon. Patient hemodynamically stable, afebrile, WBC improving. Hawkins remains in place. CVC removed yesterday without incident and PIV now intact. Hold lovenox as platelets low and may require NT suction for secretion management. Benadryl for agitation overnight. Total critical care time: I personally spent 50 minutes for review of physiologic parameters, directing plan of care, and counseling family at bedside. This is exclusive of time spent teaching housestaff or performing any separate billable procedures. Patient remains at significant risk for further morbidity and mortality warranting clos emonitoring and care only available in the ICU. Critical care sevrices required for pseudomonas pneumonia/ HCAP, otitis media/ mastoidistis, acute hypoxic respiratory failure, and acute encephalopathy.
--- NOTE | 2025-05-12 15:54 | PC.SS ---
Rounding Note: Patient extubated today. Receiving high flow oxygen. NPO. Receiving IV antibiotics. In possession of fever. Neurology is consulting.
[2025-05-12] MEDS: DEXMEDETOMIDINE 400 MCG IVPB 400 MCG/100 ML BAG 17.525 MCG IV (17:14)
[2025-05-12 17:50] LABS: Index Value <0.50
--- NOTE | 2025-05-12 18:03 | PD.RESPRO ---
Documentation for date of: 05/12/25 Subjective Subjective Interval history: Patient examined at bedside in ICU. Successfully extubated and currently on saturating 94%. Lab noted for elevated LFTs and alk phos. He withdraws from painful stimuli. Normal pupillary reflex, some resistance on passive movement of lower extremities. Exhibiting continuous movement while in bed requiring one-on-one sitter. Dried blood on oral mucosa. Plan to continue Keppra 800 mg twice daily and Depakote 187mg every 6 hour. Sputum culture grew thurman resistant Pseudomonas, meropenem was started. Ear cultures are pending. Continuing Levaquin for now. Exam Vital Signs Temp Pulse Resp BP Pulse Ox O2 Del Method O2 Flow Rate 101 F H 104 H 28 H 144/86 H 94 L High Flow Nasal Cannula 40 05/12/25 16:03 05/12/25 17:00 05/12/25 16:03 05/12/25 17:00 05/12/25 17:00 05/12/25 16:03 05/12/25 16:03 FiO2 50 05/12/25 16:03 Narrative Exam General: Nonverbal at baseline. Patient appears agitated, lots of purposeless movements Skin: Rash near buttock area. Large bruise right upper extremity. Head: Normocephalic, atraumatic. Dried blood around nares and oral mucosa Eyes: PERRL. Anicteric. Mouth/Throat: Poor dentition. Oral mucosa moist. No obvious lesions in oropharynx. Cardiovascular: Regular rate and rhythm, no murmur. Respiratory: Rhonchi to auscultation bilateral lung thompson Gastrointestinal: PEG tube in place. Soft, non-distended, no guarding or rebound tenderness. Genitourinary: Decrease swelling of glans penis. Osborne in place Extremities: no pitting edema, muscle atrophy, Feet show fixed contractures with inward curvature. Spastic Neuro: Pupils reactive to light, flexes to pain stimuli Objective Labs 05/15/25 04:25 05/15/25 04:25 Labs: Laboratory Results - last 24 hr 05/11/25 05/12/25 05/12/25 21:25 01:18 03:58 WBC RBC Hgb Hct MCV MCH MCHC RDW Std Deviation Plt Count Neut % (Auto) Lymph % (Auto) Peach % (Auto) Eos % (Auto) Baso % (Auto) Neut # (Auto) Lymph # (Auto) Peach # (Auto) Eos # (Auto) Baso # (Auto) Immature Gran # (Auto) Absolute Nucleated RBC Immature Gran % Nucleated RBC % Puncture Site Right Radial Right Radial ABG pH 7.39 7.46 H ABG pCO2 48 41 ABG pO2 94 105 ABG HCO3 29 H 29 H ABG O2 Saturation 98 99 H ABG Base Excess 3 5 H FiO2 45 45 Sodium Potassium Chloride Carbon Dioxide Anion Gap BUN Creatinine Estim Creat Clear Calc eGFR BUN/Creatinine Ratio Glucose Calculated Osmolality Calcium Corrected Calcium Phosphorus Magnesium Total Bilirubin AST ALT Alkaline Phosphatase Total Protein Albumin Globulin Albumin/Globulin Ratio Vancomycin Trough 22.5 H* Misc Test Result 05/12/25 05/12/25 04:15 11:50 WBC 7.2 RBC 2.83 L Hgb 8.1 L Hct 24.0 L MCV 85 MCH 28.6 MCHC 33.8 RDW Std Deviation 45.7 H Plt Count 65 L D Neut % (Auto) 44 Lymph % (Auto) 31 Peach % (Auto) 16 H Eos % (Auto) 5 Baso % (Auto) 0 Neut # (Auto) 3.2 Lymph # (Auto) 2.2 Peach # (Auto) 1.2 H Eos # (Auto) 0.3 Baso # (Auto) 0.0 Immature Gran # (Auto) 0.31 H Absolute Nucleated RBC 0.02 H Immature Gran % 4 H Nucleated RBC % 0 Puncture Site Right Radial ABG pH 7.39 ABG pCO2 48 ABG pO2 58 L* D ABG HCO3 29 H ABG O2 Saturation 90 L ABG Base Excess 4 H FiO2 21 Sodium 141 Potassium 3.5 Chloride 104 Carbon Dioxide 28.2 Anion Gap 9 BUN 10 Creatinine 0.8 Estim Creat Clear Calc 116.0 eGFR > 60 BUN/Creatinine Ratio 13 Glucose 110 H Calculated Osmolality 281 Calcium 7.9 L Corrected Calcium 8.9 Phosphorus 4.0 Magnesium 1.8 Total Bilirubin 0.6 AST 92 H ALT 60 H Alkaline Phosphatase 121 H D Total Protein 4.6 L Albumin 2.7 L Globulin 1.9 L Albumin/Globulin Ratio 1.4 Vancomycin Trough Misc Test Result Platelets confirmed ABG Interpretation ABG results: 05/09/25 05/09/25 05/09/25 11:56 13:40 18:50 ABG pH 7.40 7.27 L D 7.28 L ABG pCO2 40 43 55 H D ABG pO2 131 H 53 L* D 70 L ABG HCO3 25 20 26 ABG O2 Saturation 99 H 81 L 92 ABG Base Excess 0 -7 L -2 05/10/25 05/11/25 05/12/25 00:14 05:06 01:18 ABG pH 7.35 7.33 L 7.39 ABG pCO2 42 D 54 H D 48 ABG pO2 103 D 93 94 ABG HCO3 23 28 H 29 H ABG O2 Saturation 99 H 98 98 ABG Base Excess -3 2 3 05/12/25 05/12/25 03:58 11:50 ABG pH 7.46 H 7.39 ABG pCO2 41 48 ABG pO2 105 58 L* D ABG HCO3 29 H 29 H ABG O2 Saturation 99 H 90 L ABG Base Excess 5 H 4 H Quality Measures Quality Measures VTE prophylaxis (SCDs) and sepsis Current suspected stage: sepsis Possible source: pulmonary Blood cultures ordered: yes Antibiotic ordered: Yes Assessment & Plan Assessment Current Active Medications: Generic Name Dose Route Start Last Admin Trade Name Freq PRN Reason Stop Dose Admin Albuterol/Ipratropium 3 ml 05/09/25 18:19 05/12/25 03:42 Albuterol/Ipratropium (Duoneb) Rt Racquel 3 Ml Nebu INH 06/08/25 18:18 3 ml Q2HR PRN Administration SHORTNESS OF BREATH OR WHEEZE Diphenhydramine HCl 50 mg 05/12/25 16:40 05/12/25 16:57 Diphenhydramine Inj 50 Mg/Ml Vial IVP 06/11/25 16:39 50 mg Q6HR PRN Administration AGITATION OR ANXIETY Enoxaparin Sodium 30 mg 05/11/25 09:00 05/12/25 08:11 Enoxaparin Sod Inj 30 Mg/0.3 Ml Syringe SC 05/25/25 08:59 30 mg On Hold: 05/12/25 11:18 QDAY KYA Administration Propofol 1,000 mg in 100 mls @ 2.048 mls/hr 05/09/25 15:42 05/12/25 09:03 Diprivan Ivpb IV 06/08/25 15:41 0 mcg/kg/min .Q24H PRN 0 mls/hr PER PROTOCOL Titration Protocol 5 MCG/KG/MIN Fentanyl Citrate 2,500 mcg in 250 mls @ 2.5 mls/hr 05/09/25 16:02 05/12/25 08:35 Sublimaze Inj 2,500 Mcg/250 Ml Bag IV 05/14/25 16:01 0 mcg/hr .Q24H PRN 0 mls/hr PER PROTOCOL Titration Protocol 25 MCG/HR Valproic Acid 187.5 mg/ Sodium 51.875 mls @ 51.875 mls/hr 05/09/25 18:00 05/12/25 14:26 Chloride IV 06/07/25 17:59 Infused Q6HR KYA Infusion Protocol Acetaminophen 1,000 mg in 100 mls @ 250 mls/hr 05/10/25 19:35 05/12/25 13:47 Ofirmev Inj IV 05/13/25 19:34 Infused Q6HR PRN Infusion temp >99.9 Midazolam HCl 100 mg in 100 mls @ 1 mls/hr 05/11/25 17:25 05/12/25 00:30 Versed Pf Inj In Ns Premix IV 05/16/25 17:24 0 mg/hr .Q24H PRN 0 mls/hr PER PROTOCOL Titration Protocol 1 MG/HR Dexmedetomidine/Sodium Chloride 400 mcg in 100 mls @ 3.505 mls/hr 05/12/25 08:41 05/12/25 17:14 Precedex Ivpb IV 06/11/25 08:40 1 mcg/kg/hr .Q24H PRN 17.525 mls/hr Per PROTOCOL Administration Protocol 0.2 MCG/KG/HR Meropenem 1,000 mg/ Sodium 50 mls @ 100 mls/hr 05/12/25 14:00 05/12/25 13:54 Chloride IV 05/19/25 13:59 Infused Q8HR KYA Infusion Levofloxacin/Dextrose 750 mg in 150 mls @ 100 mls/hr 05/13/25 09:00 Levaquin Ivpb IV 05/18/25 08:59 QDAY KYA Ipratropium [place] 0.5 mg 05/12/25 12:00 05/12/25 13:47 Ipratropium Rt 0.5 Mg/ 2.5 Ml Nebu INH 06/11/25 11:59 0.5 mg Q6HR KYA Administration Levetiracetam 800 mg 05/08/25 21:00 05/12/25 08:12 Levetiracetam Inj 100 Mg/Ml Vial 5ml IV 06/07/25 20:59 800 mg BID KYA Administration Ofloxacin 5 drop 05/09/25 10:15 05/12/25 10:09 Ofloxacin Op Racquel 0.3% 5 Ml Btl BOTH EARS 05/18/25 10:14 5 drops BID KYA Administration Ondansetron HCl 4 mg 05/08/25 11:36 Ondansetron Inj 2 Mg/Ml Inj 2 Ml IVP 06/07/25 11:35 Q6HR PRN NAUSEA OR VOMITING Protocol Pantoprazole Sodium 40 mg 05/12/25 11:25 05/12/25 13:23 Pantoprazole Inj 40 Mg Vial IVP 06/11/25 11:24 40 mg QDAY KYA Administration Pharmacy Consult 1 each 05/08/25 16:12 Pharmacy To Consult Patient XX 06/07/25 16:11 PRN PRN CONSULT Sodium Chloride 3 ml 05/12/25 09:33 Sodium Chloride Rt Racquel 0.9% 3 Ml Nebu INH 06/11/25 09:32 PRN PRN SOLN Plan aDvid Baltazar is 24 yr male with PMH of chronic mastoiditis (previously had tympanostomy tube placed for recurrent otitis media, now removed), seizure disorder, recurrent pneumonia, cerebral palsy, chronic PEG tube, and asthma who was brought into ED on 05/08/25 for ongoing fever of over 24 hours and reported episode of witnessed seizure by ED. Patient was septic. Neurology was consulted to for LP to rule out meningitis. #Mastoiditis #rule out Meningitis #Tonic clonic seizure #Hx seizures #Cerebral palsy On admission he was noted to have fever of 105, leukocytosis 16, tachycardia 176, and tachypnic 26. CT orbit sella showed b/L otitis externa and media. Reduced mastoid aeration on the left, b/L chlestatomas. He was started on vancomycin, ceftriaxone 2g BID, ampicillin 2g q4hr, and acyclovir. EEG was negative for seizure activity. LP culture was negative: clear, WBC 3, glucose 70, total protein 25. CSF Streptococcus pneumonia Ag negative , Streptococcus B antigen negative. CSF Neisseria meningitis B/E.coli K1 negative, Neisseria meningitis ACY/W135 Ag negative. CSF haemophilus influenzae B Ag negative. MRSA screen negative. Sputum culture thurman resistant Pseudomonas -started meropenam -continuing Levofloxacine pending ear culture results -continue IV Keppra 800mg BID -IV Depakote 187mg q6hr. -seizure precautions -midazolam for breakthrough seizure #Paraphimosis #Acute Kidney Injury #Anion Gap Metabolic Acidosis #Lactic acidosis #Elevated total creatine kinase #Normocytic Anemia Primary care team to manage above conditions and ongoing care needs. The patient's management plan was discussed with my attending physician Dr. Lang. Zakiya Delacruz, PGY-2 Attending Provider Attestation/Addendum I have seen and examined the patient at the bedside and I agreed with the resident's findings, assessment and plan of care. Continue with Depakote and Keppra and follow seizure precautions. Continue to follow the patient with ICU team. CSF analysis resulted negative for meningitis including culture.
[2025-05-12] MEDS: RINGERS LACTATED 500 ML 500 ML 999 ML IV (19:33)
[2025-05-12] MEDS: DEXMEDETOMIDINE 400 MCG IVPB 400 MCG/100 ML BAG 24.535 MCG IV (23:00)
[2025-05-13] VITALS (38 sets, daily range): BP systolic 95–170; BP diastolic 53–108; PULSE 69–140; RESP 9–49; TEMP 36.7–37.9; O2SAT 83–100; BMI 30.6
[2025-05-13] MEDS: IPRATROPIUM RT 0.5 MG/ 2.5 ML NEBU INH ×4 (00:34→18:54)
[2025-05-13] MEDS: DEXMEDETOMIDINE 400 MCG IVPB 400 MCG/100 ML BAG 24.535 MCG IV (03:30)
--- NOTE | 2025-05-13 03:30 | XR_ITS ---
EXAMINATION: AP chest single view TECHNIQUE: AP portable supine chest single view Date and time: May 13, 2025, 0341 hours INDICATIONS: Shortness of breath chest pain today FINDINGS: Extensive bilateral pneumonia. Normal heart size Reduce inspiratory effort IMPRESSION: Extensive bilateral pneumonia
--- NOTE | 2025-05-13 04:11 | PD.EVENT ---
Documentation for date of: 05/13/25 RT called me patient is restless, with increased work of breathing on HFN 100 Patient on Precedex drip. CXRAYinc haziness left lung, O2 sat drops to the 80s Cannot obtain ABG. Patient's father was updated oveer the phone ER physician will intubate.
--- NOTE | 2025-05-13 04:15 | XR_ITS ---
EXAMINATION: AP chest single view TECHNIQUE: AP portable supine chest single view Date and time: May 13, 2025, 0432 hours, comparison May 13, 2025 0341 hours INDICATIONS: Hypoxic respiratory failure, difficulty breathing, post intubation today. FINDINGS: Normal heart size Significant bilateral pneumonia Endotracheal tube tip 31 mm above haresh Air distended stomach Reduced inspiratory effort IMPRESSION: Extensive bilateral pneumonia. Endotracheal tube tip 3.1 cm above haresh
--- NOTE | 2025-05-13 04:21 | PD.EDADDENDU ---
Emergency Room Addendum Addendum Narrative: I was called the patient's bedside by Dr. Camp to intubate this patient. Patient was dyspneic tachypneic agitated tachycardic and altered with very poor lung sounds. Patient had recently been extubated. Patient obviously needed to be reintubated. Patient was rapidly sequence and intubated using 20 mg of etomidate and 70 mg of rocuronium IV. With the assistance of the glide a scope patient was intubated with a 7.5 endotracheal tube placed at 23 cm at the lip with equal breath sounds bilaterally and good color change by capnography. Ventilator settings were given to respiratory therapy as well as post sedation medication orders using propofol and fentanyl.
[2025-05-13] MEDS: PROPOFOL 1,000 MG IVPB 1,000 MG/100 ML VIAL 2.103 MG IV (04:28)
[2025-05-13] MEDS: fentaNYL 2,500 MCG/250 ML BAG 2,500 MCG/250 ML BAG IV (04:28)
--- NOTE | 2025-05-13 04:30 | PC.NURSE ---
Pts work of breathing and oxygen requirements increased throughout the shift. MD Camp contacted by RT as PT was at 100% FiO2 on Hi-Rajinder and continued to desat. Decision was made to emergently intubate pt. ED MD [place] intubated pt at 0415, placement verified with X-Ray
[2025-05-13] MEDS: ROCURONIUM INJ 10 MG/ML VIAL 10 ML 70 MG IV (04:46)
[2025-05-13] MEDS: ETOMIDATE INJ 2 MG/ML VIAL 10 ML 20 MG IVP (04:46)
[2025-05-13 05:34] LABS: Base Excess -6 (-3-3); HCO3 23 mEq/L (20-26); Inspired Oxygen, FIO2 100 %; O2 Saturation 98 % (91-98); PCO2 60 mmHg (32.0-48.0); PO2 114 mmHg (83-108)
[2025-05-13 05:39] LABS: Allen Test Performed/OK; Puncture Site Left Radial; pH, Arterial 7.19 (7.35-7.45)
[2025-05-13] MEDS: MEROPENEM INJ 1,000 MG in SODIUM CHLORIDE 0.9% (Popper) 50 ML 100 MG IV ×3 (05:40→22:03)
[2025-05-13 06:20] LABS: Valporic Acid (Depak)* 42.7 mg/L (50.0-100.0)
[2025-05-13 06:21] LABS: Aspergillus Ag, Ser* NOT DETECTED
[2025-05-13 06:39] LABS: Alanine Aminotransferase 92 U/L (10-49); Albumin, Serum 3.9 gm/dL (3.5-5.0); Albumin/Globulin Ratio 1.4 (1.2-2.2); Alkaline Phosphatase 151 U/L (46-116); Anion Gap 16 (7-16); Aspartate Amino Transferase 99 U/L (0-34); BUN/Creatinine Ratio 14 Ratio (12-20); Bilirubin,Total 0.9 mg/dL (0.3-1.2); Blood Urea Nitrogen 14 mg/dL (9-23); Calcium 9.2 mg/dL (8.3-10.6); Calcium (Corrected) 9.3 mg/dL (8.5-10.1); Carbon Dioxide 20.6 mMol/L (20.0-31.0); Chloride 104 mMol/L (98-107); Creatinine (Component) 1.0 mg/dL (0.6-1.3); Estimated Creatinine Clearance 91.7 mL/min (>60); Globulin 2.8 gm/dL (2.3-3.5); Glucose 93 mg/dL (74-106); Magnesium 1.9 mg/dL (1.6-2.6); Osmolality,Calculated 281 (275-295); Phosphorous 5.9 mg/dL (2.4-5.1); Potassium 5.1 mMol/L (3.4-5.1); Sodium 141 mMol/L (136-145); Total Protein 6.7 gm/dL (5.7-8.2); eGFR > 60 See Note
[2025-05-13 06:50] LABS: Basophils # (Auto) 0.1 Thou/mm3 (0.0-0.2); Basophils % (Auto) 0 % (0-2.5); Eosinophils # (Auto) 0.0 Thou/mm3 (0.0-0.5); Eosinophils % (Auto) 0 % (0-10); Hematocrit 28.6 % (41.0-53.0); Hemoglobin 9.4 g/dL (13.5-16.0); Immature Granulocytes Auto 0.49 Thou/mm3 (0.00-0.00); Lymphocytes # (Auto) 2.0 Thou/mm3 (1.0-4.8); Lymphocytes % (Auto) 12 % (10-50); Mean Corpuscular HGB Conc 32.9 g/dl (31.0-37.0); Mean Corpuscular Hemoglobin 28.7 pg (25.0-35.0); Mean Corpuscular Volume 88 fL (80-100); Monocytes # (Auto) 3.1 Thou/mm3 (0.0-0.8); Monocytes % (Auto) 19 % (0-12); Neutrophils # (Auto) 10.5 Thou/mm3 (1.8-7.7); Neutrophils % (Auto) 65 % (37-80); Nucleated Red Blood Cell # 0.04 Thou/mm3 (0.00-0.00); Nucleated Red Blood Cell % 0 /100 WBC (0); Platelet Count 120 Thou/mm3 (140-440); RDW Standard Deviation 46.7 fL (35.1-43.9); Red Blood Count 3.27 Miln/mm3 (4.50-5.90); White Blood Count 16.2 Thou/mm3 (3.8-10.6)
[2025-05-13] MEDS: levETIRAcetam INJ 100 MG/ML VIAL 5ML 800 MG IV ×2 (08:22→20:17)
[2025-05-13] MEDS: LEVOFLOXACIN/D5W 750MG IVPB 750 MG/150 ML BAG 100 MG IV (08:22)
[2025-05-13] MEDS: OFLOXACIN OP SOL 0.3% 5 ML BTL 5 DROP BOTH EARS ×2 (08:23→20:17)
--- NOTE | 2025-05-13 08:55 | ESPR_ITS ---
Documentation for date of: 05/13/25 Subjective Subjective Interval history: Patient increased FiO2 overnight to 100%. Difficulty managing secretions. Bleeding from nose and plugging. Agitated with maximal dose of precedex and benadryl pushes. Patient with low grade temp to 100.4F. Mild secretions from ETT, pink/ frothy. Critical Care Note Critical care time (min.): 40 Exam Vital Signs Temp Pulse Resp BP Pulse Ox O2 Del Method O2 Flow Rate 99.7 F 89 23 H 109/71 99 Mechanical Ventilation 40 05/13/25 08:00 05/13/25 08:00 05/13/25 08:00 05/13/25 08:00 05/13/25 08:00 05/13/25 08:00 05/13/25 02:30 FiO2 45 05/13/25 08:00 Narrative Exam GEN: NAD, sedated/ intubated HEENT: PERRL, cough intact, ETT in place 21 in teeth NECK: supple CVS: S1/S2+ RRR PULM: Rhonchi on right ABD: soft/ NT/ ND, BS+ EXT: contracture of upper extremity, brusiing form IV placement/ blood drawm, no swelling in all 4 limbs NEURO: grossly intact in all limbs Physical Exam Completion Physical Exam Complete?: Yes Objective - Student Success Advisor Labs 05/13/25 06:30 05/13/25 04:57 Labs: Laboratory Results - last 24 hr 05/08/25 05/09/25 05/12/25 03:04 21:11 11:50 WBC RBC Hgb Hct MCV MCH MCHC RDW Std Deviation Plt Count Neut % (Auto) Lymph % (Auto) [place] % (Auto) Eos % (Auto) Baso % (Auto) Neut # (Auto) Lymph # (Auto) [place] # (Auto) Eos # (Auto) Baso # (Auto) Immature Gran # (Auto) Absolute Nucleated RBC Immature Gran % Nucleated RBC % Puncture Site Right Radial ABG pH 7.39 ABG pCO2 48 ABG pO2 58 L* D ABG HCO3 29 H ABG O2 Saturation 90 L ABG Base Excess 4 H FiO2 21 Sodium Potassium Chloride Carbon Dioxide Anion Gap BUN Creatinine Estim Creat Clear Calc eGFR BUN/Creatinine Ratio Glucose Calculated Osmolality Calcium Corrected Calcium Phosphorus Magnesium Total Bilirubin AST ALT Alkaline Phosphatase Total Protein Albumin Globulin Albumin/Globulin Ratio Valproic Acid 42.7 L Aspergillus Ag (EIA) NOT DETECTED Aspergillus Index Value <0.50 05/13/25 05/13/25 05/13/25 04:57 05:10 06:30 WBC 16.2 H D RBC 3.27 L Hgb 9.4 L Hct 28.6 L MCV 88 MCH 28.7 MCHC 32.9 RDW Std Deviation 46.7 H Plt Count 120 L D Neut % (Auto) 65 Lymph % (Auto) 12 [place] % (Auto) 19 H Eos % (Auto) 0 Baso % (Auto) 0 Neut # (Auto) 10.5 H Lymph # (Auto) 2.0 [place] # (Auto) 3.1 H Eos # (Auto) 0.0 Baso # (Auto) 0.1 Immature Gran # (Auto) 0.49 H Absolute Nucleated RBC 0.04 H Immature Gran % 3 H Nucleated RBC % 0 Puncture Site Left Radial ABG pH 7.19 L* D ABG pCO2 60 H D ABG pO2 114 H D ABG HCO3 23 ABG O2 Saturation 98 ABG Base Excess -6 L FiO2 100 Sodium 141 Potassium 5.1 D Chloride 104 Carbon Dioxide 20.6 Anion Gap 16 BUN 14 Creatinine 1.0 Estim Creat Clear Calc 91.7 eGFR > 60 BUN/Creatinine Ratio 14 Glucose 93 Calculated Osmolality 281 Calcium 9.2 Corrected Calcium 9.3 Phosphorus 5.9 H Magnesium 1.9 Total Bilirubin 0.9 AST 99 H ALT 92 H Alkaline Phosphatase 151 H D Total Protein 6.7 Albumin 3.9 D Globulin 2.8 Albumin/Globulin Ratio 1.4 Valproic Acid Aspergillus Ag (EIA) Aspergillus Index Value Assessment & Plan Additional Plan Additional Plan: 24-year-old male with cerebral palsy, asthma, seizure disorder, chronic mastoiditis, recurrent pneumonia, and chronic PEG tube dependence presented with fever and seizure, was admitted for sepsis workup, and later transferred to the ICU for intubation due to concerns about airway protection. Neurology #Breakthrough tonic clonic seizure #History of seizures #Cerebral palsy DDx: likely secondary to sepsis vs electrolyte imbalances vs medication non- compliance or inadequate medication dosing vs hypoglycemia vs dehydration. Diagnosis: - Temperature of 105F on admission. - Sodium 148 and potassium 5.2 on admission. - EEG unremarkable Treatment Plan: - Continue valproic acid 187.5 mg Q6H. - Continue levetiracetam 800mg BID. - Adjust seizure medications if breakthrough seizures persist. - Seizure precautions. - Aspiration precautions. - Repeat CBC, electrolytes, renal function, and liver function tests to monitor for any metabolic derangements contributing to seizures. #Chemical sedation #Agitation Patient was extremely agitated before ICU admission, likely due to pain from paraphimosis. Patient initially sedated with propofol and fentanyl, titrated to Precedex with Benadryl as needed Diagnostic Test: - 05/10 AM: Patient's RASS was -4 : no response to voice, but movement to physical stimulation. - 05/11 AM: Patient's RASS was -4. - 05/12 AM: Patient active but not opening eyes, mobile, appears to be in distress - 05/13 AM: Intermittently agitated but sedated with RASS -3 Treatment Plan: - Restarted on propofol/ fentanyl Cardiovascular #no active problems Respiratory #Failed extubation 05/12 #Acute hypoxic respiratory failure Diagnostic Test: - ABG 05/09 at 11:56: pH 7.40, pCO2 40, pO2 131, HCO3 25. - ABG 05/09 at 13:40: pH 7.27, pCO2 43, pO2 53, HCO3 20. - ABG 05/09 at 18:50: pH 7.28, pCO2 55, pO2 70, HCO3 26. - ABG 05/10 at 00:14: pH 7.35, pCO2 41, pO2 103, HCO3 23. - ABG 05/11 at 05:06: pH 7.33, pCO2 54, pO2 93, HCO3 28. - CXR 10:15: Mild bilateral perihilar pneumonia. To assess for ventilator associated pneumonia. Not much change from 05/09 CXR. - Patient extubated to [facility] 05/12, chest film with centro-bronchovascular congestion and multifocal pneumonia - Reintubated overnight 05/13- VC/AC PPeak 20 PEEP 5 FiO2 40% Treatment Plan: - Plan for bronchoscopy given secretions, repeat sampling - Pseudomonas from ETT secretions previously - Chest physiotherapy BID - Ipratropium 0.5 mg every 6 hours #Bronchospasm #History of asthma Diagnostic Test: - Although the patient has a history of asthma, the bronchospasm is most likely from the irritant effect of blood in the airway. A small amount of blood, which was likely from dryness of the nasal mucosa, was suctioned out during intubation. Treatment Plan: - Magnesium for bronchodilatory effect as needed. - Albuterol as needed. GI, , F/E/N #Acute urinary retention (resolved) Diagnostic Test - Bladder scan at 6AM on 05/10: 295 cc. - Bladder scan at noon on 05/10: 495 cc. - Hawkins was reinserted on 05/10 with family's permission. After reinsertion of the Hawkins catheter, 700cc of brown urine was drained. Treatment Plan - Maintain hawkins catheter. Monitor UOP. - Monitor urine output, replace fluid if needed #Paraphimosis (resolved) #Balanitis (resolving) Diagnostic Test: - Edema and tenderness of the glans penis. - Swelling of the distal retracted foreskin. - Constricting band of tissue proximal to the head of the penis at the coronal sulcus. - Hawkins was removed on 05/09 and transitioned to Oivi external urinary catheter. Discussed with family about the need to reinsert hawkins due to the patient's acute urinary retention. Family were in agreement with this plan. Hawkins was reinserted on 05/10 due to urinary retention. - S/p reduction of the paraphimosis by Dr. Vargas on 05/09. Treatment Plan: - Control patient's pain with sedation. - Monitor urine output. - Remove hawkins when appropriate. #Chronic PEG tube dependence Treatment Plan: - Jevity 1.5 at 40 ml/hr x 24 hrs via PEG tube by pump (goal). If no IV fluids, water flushes of 35 ml/hr. - ProStat 30ml BID via PEG tube. - Appreciate exhaust worker recommendations. - Triglyceride level 05/11: 183. Repeat in AM given resumption of propofol. #Hepatitis DDx: muscle injury vs hemolytic anemia vs myocarditis vs medication induced - Muscle injury/rhabdomyolysis - supported by rising CK and normal ALT. - Hemolytic anemia - possible source of AST from RBC breakdown. - Myocarditis - les likely given normal troponin. - Patient receivedmultiple medications that could potentially cause hepatotoxicity in ICU -Initial resolving, WNL LFTs 05/11, slight increase 05/12 Diagnostic Test: - AST 92. - ALT 60 -ALP 121 - CK 1048 --> 3743 --> 1654. - LDH 352 --> 332. - Troponin <0.002. Treatment Plan: - Daily LFTs - Avoid hepatotoxics. #Hypoalbuminemia (improving) DDx: acute hepatitis vs nephrotic syndrome vs sepsis vs malnutrition vs diluational. Diagnostic Test: - UA had urine proteins 1+. - Albumin 4.9 --> 4.0 --> 3.8 --> 3.3 --> 2.7 --> 3.0. - Hgb and WBC also decreased with albumin, likely diluational. Treatment Plan: - Monitor LFTs, INR, and bilirubin. - Resume PEG tube feeds per exhaust worker recommendations. Renal #Acute kidney injury (resolved) DDx: hypotension, dehydration, or vasodilation from sepsis. Diagnositc Test: - Creatinine 1.3 (baseline: 0.7) -> 0.8 --> 1.2 --> 1.0. Treatment Plan: - Continue with free water flushes. - Daily renal panel to trend BUN, Cr, and electrolytes. - Avoid nephrotoxins. - Renally dose meds as appropriate. - Strict I&Os, monitor urine output closely. - Monitor for signs of volume overload or uremic symptoms. #Anion Gap Metabolic Acidosis (resolved) #Lactic acidosis (resolved) DDx: seizures vs sepsis vs acute kidney injury vs hypoperfusion. Likely from seizures as patient has no signs of systemic hypoperfusion such as skin mottling, decreased cap refills. Diagnostic Test: - Admission anion gap 22, lactic acid 16.0, bicarbonate 18.7. Treatment Plan: -Recheck LA as needed #Rhabdomyolysis (improving) DDx: seizures vs hyperthermia vs infectious myositis. Diagnostic Test: - CK 1048 --> 3743 --> 1654. - Temp 105F. - Witnessed seizure episode lasting 5-10 seconds, characterized by tonic-clonic activity prior to admission. - Potassium 5.2 on admission. Treatment Plan: - Continue free water flushes. - Monitor urine output. - Correct electrolyte abnormalities. - Control seizures with valproic acid and levetiracetam. - Acetaminophen as needed for fevers. - Monitor renal panel. Heme #Normocytic Anemia #Hematoma on left forearm DDx: Anemia of Inflammation vs dilutional anemia vs drug-induced anemia. Likely dilutional anemia since patient had normal hemoglobin on admission and from IV fluids per sepsis protocol. No signs of bleeding. Diagnostic Test: - Hemoglobin 14.0 --> 12.0 --> 10.5 --> 8.3 --> 9.3 --> 8.1--> 9.4 Treatment Plan: - Monitor H&H. - Type and screen. - Transfusing for Hgb <7 or symptomatic. #Thrombocytopenia DDx: Dilutional versus consumption versus increased destruction due to sepsis Initial decrease is likely due to dilutional in setting of IV fluids, however his WBC and hemoglobin have leveled off platelets have down trended Diagnostic test: - Platelets: 209 --> 167 --> 133 --> 86 --> 65-->120 Treatment plan: - Monitor daily labs - Avoid excessive oral tracheal suctioning in setting of previous bleed and thrombocytopenia - SCDs for DVT prophylaxis Endo #no active problems ID #Sepsis #Leukocytosis (resolved) #Bilateral chronic mastoiditis #Sinusitis #Bilateral otitis media #Bilateral otitis externa DDx: meningitis vs acute on chronic mastoiditis vs acute febrile illness. Diagnostic Test: - History of chronic mastoiditis. - CT Head 05/08: prominent sphenoid ethmoid maxillary antral sinusitis, bilateral chronic mastoiditis, bilateral otitis media. - CT Orbit Sella Inner 05/08: severe bilateral chronic mastoiditis, bilateral otitis externa and otitis media, bilateral cholesteatomas in the attics. - Met SIRS criteria on admission: T 105F, HR 176, RR 26, PaCO2 26, WBC 16.3. - Lactic acid 16.0 on admission. - UA negative. - Blood culture negative. - Lumbar puncture: clear, WBC 3, glucose 70, total protein 25. - CSF Streptococcus pneumonia Ag negative. - CSF Streptococcus B antigen negative. - CSF Neisseria meningitis B/E.coli K1 negative. - CSF Neisseria meningitis ACY/W135 Ag negative. - CSF haemophilus influenzae B Ag negative. - MRSA screen negative. - Sputum culture 1+ thurman resistance Pseudomonas -Bilateral ear cultures pending Treatment Review (completed) - Discontinue IV rocephin 2 gm q12HR [05/08-05/11] - Discontinue IV vancomycin dosed by pharmacy [05/08-05/11] since MRSA screen is negative. - Discontinue IV acyclovir 700 mg [05/08-05/11] since LP negative. - Discontinued IV ampicillin 2 gm q4HR [05/08-05/09] as patient not in the age group at risk for Listeria infection. - Fluids: 30mL/kg -- 2 L NS fluid infusion and 1 L LR fluid infusion was given in the ED (completed). -Femoral central line removed, replaced with peripheral access Treatment Plan: - Start Levofloxacin 750 mg (renally dosed). - Meropenem 1 g IV every 8 hour (started 05/12) - 05/[address] Jacky Cuadra Otolaryngology recs, results likely pseudomonas- GNR so far - CSF enterovirus RNA pending. - CSF West Nile virus IgG antibody pending. - CSF West Nile virus IgM antibody. - Repeat blood cultures Integumentary #Maculopapular rash to the buttocks DDx: contact dermatitis vs allergic dermatitis Treatment Plan - Patient no longer has diaper on as hawkins is in place. Anticipate rash to improve. Health Maintenance DVT prophylaxis: Lovenox held, SCDs GI prophylaxis: Protonix IV Diet: Jevity Hawkins: present Lines: Peripherals Drips: Precedex Vent: HFNC CODE STATUS: FULL CODE Provider Notation Provider Notation: Although this document has been carefully reviewed, there may still be some phonetic and other typographical errors. These errors are purely grammatical due to imperfections in the software program and should not be construed in any way to compromise the substance of the patient's medical care during this visit. Thank you for the opportunity and privilege in assisting you with this patient's care and management.
[2025-05-13] MEDS: PROPOFOL 1,000 MG IVPB 1,000 MG/100 ML VIAL 21.03 MG IV ×3 (09:53→19:22)
[2025-05-13] MEDS: MIDAZOLAM INJ 1 MG/ML VIAL 2 ML 4 MG IVP ×2 (10:12→12:12)
[2025-05-13] MEDS: MIDAZOLAM/NS 100 MG IVPB 100 MG/100 ML BAG IV (10:28)
--- NOTE | 2025-05-13 10:55 | PD.IDPROG ---
Subjective Subjective Interval history: hiv test cancelled per others. hep c neg noted. no value to dual rx for the gnr in ear . those cx are popular with ent docs as they can defer to others. merrem alone ok. if wnv pos, then there is no rx for that. no word yet on county viral panel Exam Vital Signs Temp Pulse Resp BP Pulse Ox O2 Del Method O2 Flow Rate 99.7 F 122 H 25 H 117/72 94 L Mechanical Ventilation 40 05/13/25 08:00 05/13/25 10:03 05/13/25 09:01 05/13/25 10:03 05/13/25 10:03 05/13/25 08:00 05/13/25 02:30 FiO2 40 05/13/25 09:54 Narrative Exam sats in the upper 90s on 45% on vent not actively seizing Objective - Internal Medicine Labs 05/13/25 06:30 05/13/25 04:57 Labs: Laboratory Results - last 24 hr 05/08/25 05/09/25 05/12/25 03:04 21:11 11:50 WBC RBC Hgb Hct MCV MCH MCHC RDW Std Deviation Plt Count Neut % (Auto) Lymph % (Auto) [place] % (Auto) Eos % (Auto) Baso % (Auto) Neut # (Auto) Lymph # (Auto) [place] # (Auto) Eos # (Auto) Baso # (Auto) Immature Gran # (Auto) Absolute Nucleated RBC Immature Gran % Nucleated RBC % Puncture Site Right Radial ABG pH 7.39 ABG pCO2 48 ABG pO2 58 L* D ABG HCO3 29 H ABG O2 Saturation 90 L ABG Base Excess 4 H FiO2 21 Sodium Potassium Chloride Carbon Dioxide Anion Gap BUN Creatinine Estim Creat Clear Calc eGFR BUN/Creatinine Ratio Glucose Calculated Osmolality Calcium Corrected Calcium Phosphorus Magnesium Total Bilirubin AST ALT Alkaline Phosphatase Total Protein Albumin Globulin Albumin/Globulin Ratio Valproic Acid 42.7 L Aspergillus Ag (EIA) NOT DETECTED Aspergillus Index Value <0.50 05/13/25 05/13/25 05/13/25 04:57 05:10 06:30 WBC 16.2 H D RBC 3.27 L Hgb 9.4 L Hct 28.6 L MCV 88 MCH 28.7 MCHC 32.9 RDW Std Deviation 46.7 H Plt Count 120 L D Neut % (Auto) 65 Lymph % (Auto) 12 [place] % (Auto) 19 H Eos % (Auto) 0 Baso % (Auto) 0 Neut # (Auto) 10.5 H Lymph # (Auto) 2.0 [place] # (Auto) 3.1 H Eos # (Auto) 0.0 Baso # (Auto) 0.1 Immature Gran # (Auto) 0.49 H Absolute Nucleated RBC 0.04 H Immature Gran % 3 H Nucleated RBC % 0 Puncture Site Left Radial ABG pH 7.19 L* D ABG pCO2 60 H D ABG pO2 114 H D ABG HCO3 23 ABG O2 Saturation 98 ABG Base Excess -6 L FiO2 100 Sodium 141 Potassium 5.1 D Chloride 104 Carbon Dioxide 20.6 Anion Gap 16 BUN 14 Creatinine 1.0 Estim Creat Clear Calc 91.7 eGFR > 60 BUN/Creatinine Ratio 14 Glucose 93 Calculated Osmolality 281 Calcium 9.2 Corrected Calcium 9.3 Phosphorus 5.9 H Magnesium 1.9 Total Bilirubin 0.9 AST 99 H ALT 92 H Alkaline Phosphatase 151 H D Total Protein 6.7 Albumin 3.9 D Globulin 2.8 Albumin/Globulin Ratio 1.4 Valproic Acid Aspergillus Ag (EIA) Aspergillus Index Value ABG Interpretation ABG results: 05/09/25 05/09/25 05/09/25 11:56 13:40 18:50 ABG pH 7.40 7.27 L D 7.28 L ABG pCO2 40 43 55 H D ABG pO2 131 H 53 L* D 70 L ABG HCO3 25 20 26 ABG O2 Saturation 99 H 81 L 92 ABG Base Excess 0 -7 L -2 05/10/25 05/11/25 05/12/25 00:14 05:06 01:18 ABG pH 7.35 7.33 L 7.39 ABG pCO2 42 D 54 H D 48 ABG pO2 103 D 93 94 ABG HCO3 23 28 H 29 H ABG O2 Saturation 99 H 98 98 ABG Base Excess -3 2 3 05/12/25 05/12/25 05/13/25 03:58 11:50 05:10 ABG pH 7.46 H 7.39 7.19 L* D ABG pCO2 41 48 60 H D ABG pO2 105 58 L* D 114 H D ABG HCO3 29 H 29 H 23 ABG O2 Saturation 99 H 90 L 98 ABG Base Excess 5 H 4 H -6 L Assessment & Plan A&P Narrative intubated for hypoxia the other day. quinolones can lower sz threshold too, so if more sz, value of rx will depend on viral panel at county lab. cxr looks viral to me antibiotic roulette is also popular. so if you are changing the merrem to a quinolone, that is ok will otherwise check in again friday. at least he does not appear to be seizing any longer. ordered a procal for am as renal ok and dx unclear to me btw, we stopped doing the csf latex panel yrs ago as there were too many false positives it has been done so too late to undo, but for future reference... there is a strong tendency to go with radiology on dx so if you want to treat the psa in sputum for 7d. that is ok merrem ok based on S. if cocci pos then ok to use flucon 400/day enterally if that works for him if not, iv ok but flucon is same iv and po. Time Spent With Patient Time: Total time spent is greater than 50% in coordination of care (as documented) at patient's floor/unit and/or counseling patient:
[2025-05-13] MEDS: fentaNYL 2,500 MCG/250 ML BAG 2,500 MCG/250 ML BAG 30 MCG IV ×2 (14:10→22:05)
--- NOTE | 2025-05-13 15:49 | PC.SS ---
Update: Patient re-intubated today. Patient sedated. Restraints applied. Tube feed to resume today. Presence of low fever. Patient receiving IV antibiotics.
[2025-05-13 16:53] LABS: Path Review Blood Smear Sent to Pathologist
--- NOTE | 2025-05-13 23:54 | PD.NEUROPROG ---
Documentation for date of: 05/13/25 Subjective Subjective Interval history: Patient was seen in ICU today with parents at the bedside. Noted patient got reintubated today, still having hyperkinetic movements and excess drooling. No frequent fever spikes noted. Exam - Neurology Vital Signs Temp Pulse Resp BP Pulse Ox O2 Del Method O2 Flow Rate 98.1 F 87 22 H 106/56 L 100 Mechanical Ventilation 40 05/13/25 20:00 05/13/25 23:00 05/13/25 18:54 05/13/25 23:00 05/13/25 23:00 05/13/25 20:00 05/13/25 02:30 FiO2 45 05/13/25 22:02 Narrative Exam GENERAL APPEARANCE: Developmentally delayed male , intubated and on mechanical ventilatory support HEENT: Normocephalic, atraumatic, Pupils: Equal reacting to light NECK: Supple, no JVD or bruits. CARDIOVASULAR: Heart: S1, S2 heard, regular without S3-S4 or murmur no rubs or gallops. LUNGS/CHEST: Breath sounds heard equally bilaterally, bilateral Rales and rhonchi heard. ABDOMEN: Soft, nontender, with normal bowel sounds. No pulsatile masses. No rebound, rigidity, or guarding. Normal inspection and palpation. EXTREMITIES: Normal inspection and palpation. No edema, clubbing or cyanosis. SKIN: Warm and dry without rashes. Normal inspection. NEURO: Limited from sedation, brainstem function: Intact, moves all extremities. PSYCHIATRIC: Limited Objective Labs 05/15/25 04:25 05/15/25 04:25 Labs: Laboratory Results - last 24 hr 05/08/25 05/09/25 05/13/25 03:04 21:11 04:57 WBC RBC Hgb Hct MCV MCH MCHC RDW Std Deviation Plt Count Neut % (Auto) Lymph % (Auto) [place] % (Auto) Eos % (Auto) Baso % (Auto) Neut # (Auto) Lymph # (Auto) [place] # (Auto) Eos # (Auto) Baso # (Auto) Immature Gran # (Auto) Absolute Nucleated RBC Immature Gran % Nucleated RBC % Smear Path Review Puncture Site ABG pH ABG pCO2 ABG pO2 ABG HCO3 ABG O2 Saturation ABG Base Excess FiO2 Sodium 141 Potassium 5.1 D Chloride 104 Carbon Dioxide 20.6 Anion Gap 16 BUN 14 Creatinine 1.0 Estim Creat Clear Calc 91.7 eGFR > 60 BUN/Creatinine Ratio 14 Glucose 93 Calculated Osmolality 281 Calcium 9.2 Corrected Calcium 9.3 Phosphorus 5.9 H Magnesium 1.9 Total Bilirubin 0.9 AST 99 H ALT 92 H Alkaline Phosphatase 151 H D Total Protein 6.7 Albumin 3.9 D Globulin 2.8 Albumin/Globulin Ratio 1.4 Valproic Acid 42.7 L Aspergillus Ag (EIA) NOT DETECTED Aspergillus Index Value <0.50 05/13/25 05/13/25 05:10 06:30 WBC 16.2 H D RBC 3.27 L Hgb 9.4 L Hct 28.6 L MCV 88 MCH 28.7 MCHC 32.9 RDW Std Deviation 46.7 H Plt Count 120 L D Neut % (Auto) 65 Lymph % (Auto) 12 [place] % (Auto) 19 H Eos % (Auto) 0 Baso % (Auto) 0 Neut # (Auto) 10.5 H Lymph # (Auto) 2.0 [place] # (Auto) 3.1 H Eos # (Auto) 0.0 Baso # (Auto) 0.1 Immature Gran # (Auto) 0.49 H Absolute Nucleated RBC 0.04 H Immature Gran % 3 H Nucleated RBC % 0 Smear Path Review Sent to Pathologist Puncture Site Left Radial ABG pH 7.19 L* D ABG pCO2 60 H D ABG pO2 114 H D ABG HCO3 23 ABG O2 Saturation 98 ABG Base Excess -6 L FiO2 100 Sodium Potassium Chloride Carbon Dioxide Anion Gap BUN Creatinine Estim Creat Clear Calc eGFR BUN/Creatinine Ratio Glucose Calculated Osmolality Calcium Corrected Calcium Phosphorus Magnesium Total Bilirubin AST ALT Alkaline Phosphatase Total Protein Albumin Globulin Albumin/Globulin Ratio Valproic Acid Aspergillus Ag (EIA) Aspergillus Index Value ABG Interpretation ABG results: 05/09/25 05/09/25 05/09/25 11:56 13:40 18:50 ABG pH 7.40 7.27 L D 7.28 L ABG pCO2 40 43 55 H D ABG pO2 131 H 53 L* D 70 L ABG HCO3 25 20 26 ABG O2 Saturation 99 H 81 L 92 ABG Base Excess 0 -7 L -2 05/10/25 05/11/25 05/12/25 00:14 05:06 01:18 ABG pH 7.35 7.33 L 7.39 ABG pCO2 42 D 54 H D 48 ABG pO2 103 D 93 94 ABG HCO3 23 28 H 29 H ABG O2 Saturation 99 H 98 98 ABG Base Excess -3 2 3 05/12/25 05/12/25 05/13/25 03:58 11:50 05:10 ABG pH 7.46 H 7.39 7.19 L* D ABG pCO2 41 48 60 H D ABG pO2 105 58 L* D 114 H D ABG HCO3 29 H 29 H 23 ABG O2 Saturation 99 H 90 L 98 ABG Base Excess 5 H 4 H -6 L Assessment & Plan Additional Assessment & Plan Additional Plan: David Baltazar is 24 yr male with PMH of chronic mastoiditis (previously had tympanostomy tube placed for recurrent otitis media, now removed), seizure disorder, recurrent pneumonia, cerebral palsy, chronic PEG tube, and asthma who was brought into ED on 05/08/25 for ongoing fever of over 24 hours and reported episode of witnessed seizure by ED. Patient was septic. Neurology was consulted to for LP to rule out meningitis. #Mastoiditis #rule out Meningitis #Tonic clonic seizure #Hx seizures #Cerebral palsy On admission he was noted to have fever of 105, leukocytosis 16, tachycardia 176, and tachypnic 26. CT orbit sella showed b/L otitis externa and media. Reduced mastoid aeration on the left, b/L chlestatomas. He was started on vancomycin, ceftriaxone 2g BID, ampicillin 2g q4hr, and acyclovir. EEG was negative for seizure activity. LP culture was negative: clear, WBC 3, glucose 70, total protein 25. CSF Streptococcus pneumonia Ag negative , Streptococcus B antigen negative. CSF Neisseria meningitis B/E.coli K1 negative, Neisseria meningitis ACY/W135 Ag negative. CSF haemophilus influenzae B Ag negative. MRSA screen negative. Sputum culture thurman resistant Pseudomonas -started meropenam -Discontinued Levofloxacine and started on ear drops Ofloxacin -continue IV Keppra 800mg BID -IV Depakote 187mg q6hr. -seizure precautions -midazolam for breakthrough seizure -Consider trying Glycopyrrolate for secretions if needed. #Paraphimosis #Acute Kidney Injury #Anion Gap Metabolic Acidosis #Lactic acidosis #Elevated total creatine kinase from his hyperkinetic movements #Normocytic Anemia Primary care team to manage above conditions and ongoing care needs.
[2025-05-14] VITALS (36 sets, daily range): BP systolic 98–127; BP diastolic 53–106; PULSE 60–134; RESP 14–23; TEMP 36.4–38.8; O2SAT 96–100; BMI 30.9
[2025-05-14] MEDS: IPRATROPIUM RT 0.5 MG/ 2.5 ML NEBU INH ×4 (00:04→18:35)
[2025-05-14] MEDS: PROPOFOL 1,000 MG IVPB 1,000 MG/100 ML VIAL 21.03 MG IV ×6 (00:21→23:36)
[2025-05-14] MEDS: MIDAZOLAM/NS 100 MG IVPB 100 MG/100 ML BAG IV (04:49)
[2025-05-14] MEDS: MEROPENEM INJ 1,000 MG in SODIUM CHLORIDE 0.9% (Popper) 50 ML 100 MG IV ×3 (05:00→21:22)
[2025-05-14] MEDS: ACETAMINOPHEN 325 MG TABLET 650 MG PO ×2 (05:19→18:15)
[2025-05-14] MEDS: fentaNYL 2,500 MCG/250 ML BAG 2,500 MCG/250 ML BAG 25 MCG IV ×2 (08:09→18:15)
[2025-05-14] MEDS: levETIRAcetam INJ 100 MG/ML VIAL 5ML 800 MG IV ×2 (08:11→20:29)
[2025-05-14 08:31] LABS: Basophils # (Auto) 0.0 Thou/mm3 (0.0-0.2); Basophils % (Auto) 0 % (0-2.5); Eosinophils # (Auto) 0.4 Thou/mm3 (0.0-0.5); Eosinophils % (Auto) 4 % (0-10); Hematocrit 24.1 % (41.0-53.0); Immature Granulocytes Auto 0.55 Thou/mm3 (0.00-0.00); Lymphocytes # (Auto) 2.5 Thou/mm3 (1.0-4.8); Lymphocytes % (Auto) 28 % (10-50); Mean Corpuscular HGB Conc 34.0 g/dl (31.0-37.0); Mean Corpuscular Hemoglobin 28.9 pg (25.0-35.0); Mean Corpuscular Volume 85 fL (80-100); Monocytes # (Auto) 1.4 Thou/mm3 (0.0-0.8); Monocytes % (Auto) 16 % (0-12); Neutrophils # (Auto) 4.0 Thou/mm3 (1.8-7.7); Neutrophils % (Auto) 45 % (37-80); Nucleated Red Blood Cell # 0.03 Thou/mm3 (0.00-0.00); Nucleated Red Blood Cell % 0 /100 WBC (0); Platelet Count 141 Thou/mm3 (140-440); RDW Standard Deviation 44.6 fL (35.1-43.9); Red Blood Count 2.84 Miln/mm3 (4.50-5.90); White Blood Count 8.9 Thou/mm3 (3.8-10.6)
[2025-05-14 08:35] LABS: Alanine Aminotransferase 100 U/L (10-49); Albumin, Serum 2.8 gm/dL (3.5-5.0); Albumin/Globulin Ratio 1.3 (1.2-2.2); Alkaline Phosphatase 152 U/L (46-116); Anion Gap 11 (7-16); Aspartate Amino Transferase 103 U/L (0-34); BUN/Creatinine Ratio 19 Ratio (12-20); Bilirubin,Total 0.4 mg/dL (0.3-1.2); Blood Urea Nitrogen 17 mg/dL (9-23); Calcium 8.4 mg/dL (8.3-10.6); Calcium (Corrected) 9.4 mg/dL (8.5-10.1); Carbon Dioxide 26.0 mMol/L (20.0-31.0); Chloride 105 mMol/L (98-107); Creatine Kinase 338 U/L (34-171); Creatinine (Component) 0.9 mg/dL (0.6-1.3); Estimated Creatinine Clearance 102.5 mL/min (>60); Globulin 2.1 gm/dL (2.3-3.5); Glucose 129 mg/dL (74-106); Magnesium 1.8 mg/dL (1.6-2.6); Osmolality,Calculated 286 (275-295); Phosphorous 3.3 mg/dL (2.4-5.1); Potassium 3.4 mMol/L (3.4-5.1); Procalcitonin 1.68 ng/ml (0.0-0.49); Sodium 142 mMol/L (136-145); Total Protein 4.9 gm/dL (5.7-8.2); Triglycerides 290 mg/dL (30-150); eGFR > 60 See Note
[2025-05-14] MEDS: OFLOXACIN OP SOL 0.3% 5 ML BTL 5 DROP BOTH EARS ×2 (08:35→20:29)
[2025-05-14 09:10] LABS: Hemoglobin 8.2 g/dL (13.5-16.0)
[2025-05-14] MEDS: Magnesium Sulfate 2 GM Ivpb 2 GM/50 ML BAG IV (11:45)
[2025-05-14] MEDS: POTASSIUM CHLORIDE 10% 20 MEQ/15 ML UDC 40 MEQ GT (11:45)
[2025-05-14 13:18] LABS: HIV (1&2) Antibody Rapid Non-Reactive
[2025-05-14] MEDS: LIDOCAINE HCL 1% 20 ML VIAL 12 ML INFL (14:27)
--- NOTE | 2025-05-14 14:40 | PD.INTPROC ---
PROCEDURES: Procedure Date / Time 05/14/25 1440 Bronchoscopy Bronscopy indication(s): removal of secretions and diagnostic BAL Informed consent obtained from: surrogate Time out done and the following verified: correct patient, side and site, procedure and patient position Oxygen delivery: via mechanical vent. Vocal cords: other (not visualized) Trachea: distal appears normal and secretions noted Jonelle: sharp in angle RUL & subsegmental branches: purulent secretions and inflammation RML & subsegmental branches: inflammation RLL & subsegmental branches: inflammation BRENDA & subsegmental branches: inflammation LLL & subsegmental branches: inflammation Bronchoalveolar lavage: 120 ml instilled and 35 cc obtained, clear blood tinged EBL: 0 Patient tolerated procedure: well Complications: No Procedure comment: Lidocaine total 1% 12 ml to airway via bronchoscope to prevent cough
[2025-05-14] MEDS: SODIUM CHLORIDE RT 10% 15 ML NEBU 5 ML INH (15:06)
[2025-05-14 15:35] LABS: West Nile Virus (IgG), CSF <1.30
--- NOTE | 2025-05-14 16:05 | ESPR_ITS ---
Documentation for date of: 05/14/25 Subjective Subjective Interval history: No acute events overnight. Stable on versed/ fentanyl and propofol. No vasopressor requirements. Patient underwent bronchoscopy, well tolerated. Gas exchange stable. PPeak remains in mid20s. Patient on minimal FiO2 and PEEP now. Good ventilator synchrony. Continues to have heavy drooling and output form upper airway. Minimal from ETT now. Critical Care Note Critical care time (min.): 35 Exam Vital Signs Temp Pulse Resp BP Pulse Ox O2 Del Method O2 Flow Rate 98.2 F 79 23 H 111/63 96 Mechanical Ventilation 40 05/14/25 13:00 05/14/25 15:00 05/14/25 13:06 05/14/25 15:00 05/14/25 15:00 05/14/25 08:00 05/13/25 02:30 FiO2 45 05/14/25 13:32 Narrative Exam GEN: NAD, sedated/ intubated HEENT: Right lateral eye scleral hemorrhage, PERRL, cough intact, ETT in place 21 in teeth NECK: supple CVS: S1/S2+ RRR PULM: Rhonchi on right ABD: soft/ NT/ ND, BS+ : Improved swelling of glans and hawkins in place, draining well/ clear yellow EXT: contracture of upper extremity, no swelling in all 4 limbs NEURO: grossly intact in all limbs Physical Exam Completion Physical Exam Complete?: Yes Objective - [place] [employer] Labs 05/14/25 07:48 05/14/25 07:48 Labs: Laboratory Results - last 24 hr 05/13/25 05/14/25 06:30 07:48 WBC 8.9 D RBC 2.84 L Hgb 8.2 L Hct 24.1 L MCV 85 MCH 28.9 MCHC 34.0 RDW Std Deviation 44.6 H Plt Count 141 Neut % (Auto) 45 Lymph % (Auto) 28 [place] % (Auto) 16 H Eos % (Auto) 4 Baso % (Auto) 0 Neut # (Auto) 4.0 Lymph # (Auto) 2.5 [place] # (Auto) 1.4 H Eos # (Auto) 0.4 Baso # (Auto) 0.0 Immature Gran # (Auto) 0.55 H Absolute Nucleated RBC 0.03 H Immature Gran % 6 H Nucleated RBC % 0 Smear Path Review Sent to Pathologist Sodium 142 Potassium 3.4 D Chloride 105 Carbon Dioxide 26.0 Anion Gap 11 BUN 17 Creatinine 0.9 Estim Creat Clear Calc 102.5 eGFR > 60 BUN/Creatinine Ratio 19 Glucose 129 H Calculated Osmolality 286 Calcium 8.4 Corrected Calcium 9.4 Phosphorus 3.3 Magnesium 1.8 Total Bilirubin 0.4 D AST 103 H ALT 100 H Alkaline Phosphatase 152 H Total Creatine Kinase 338 H D Total Protein 4.9 L Albumin 2.8 L D Globulin 2.1 L Albumin/Globulin Ratio 1.3 Triglycerides 290 H Procalcitonin 1.68 H HIV 1&2 Antibody Rapid Non-Reactive Assessment & Plan Additional Plan Additional Plan: 24-year-old male with cerebral palsy, asthma, seizure disorder, chronic mastoiditis, recurrent pneumonia, and chronic PEG tube dependence presented with fever and seizure, was admitted for sepsis workup, and later transferred to the ICU for intubation due to concerns about airway protection. Neurology #Breakthrough tonic clonic seizure #History of seizures #Cerebral palsy DDx: likely secondary to sepsis vs electrolyte imbalances vs medication non- compliance or inadequate medication dosing vs hypoglycemia vs dehydration. Diagnosis: - Temperature of 105F on admission. - Sodium 148 and potassium 5.2 on admission. - EEG unremarkable Treatment Plan: - Continue valproic acid 187.5 mg Q6H. - Continue levetiracetam 800mg BID. - Adjust seizure medications if breakthrough seizures persist. - Seizure precautions. - Aspiration precautions. - Repeat CBC, electrolytes, renal function, and liver function tests to monitor for any metabolic derangements contributing to seizures. #Agitated delerium Patient was extremely agitated before ICU admission, likely due to pain from paraphimosis. Patient initially sedated with propofol and fentanyl, titrated to Precedex with Benadryl as needed Diagnostic Test: - 05/12 AM: Patient active but not opening eyes, mobile, appears to be in distress - 05/13 AM: Intermittently agitated but sedated with RASS -3 - 05/11 AM: RASS remains at -4 Treatment Plan: - Restarted on propofol/ fentanyl, CK cleared and will follow TG - Seroquel nightly Cardiovascular #no active problems Respiratory #Failed extubation 05/12 #Acute hypoxic respiratory failure Diagnostic Test: - ABG 05/10 at 00:14: pH 7.35, pCO2 41, pO2 103, HCO3 23. - ABG 05/11 at 05:06: pH 7.33, pCO2 54, pO2 93, HCO3 28. - CXR 05/11: Mild bilateral perihilar pneumonia. To assess for ventilator associated pneumonia. Not much change from 05/09 CXR. - Patient extubated to HFNC 05/12, chest film with centro-bronchovascular congestion and multifocal pneumonia - Reintubated overnight 05/13- VC/AC PPeak 20 PEEP 5 FiO2 40% Treatment Plan: - F/U sample results from bronchoscopy given secretions - Pseudomonas from ETT secretions previously - Chest physiotherapy BID - Ipratropium 0.5 mg every 6 hours #Bronchospasm #History of asthma Diagnostic Test: - Although the patient has a history of asthma, the bronchospasm is most likely from the irritant effect of blood in the airway. A small amount of blood, which was likely from dryness of the nasal mucosa, was suctioned out during intubation. Treatment Plan: - Magnesium for bronchodilator effect as needed. - Albuterol as needed. GI, , F/E/N #Acute urinary retention (resolved) Treatment Plan - Maintain hawkins catheter. Monitor UOP. - Monitor urine output, replace fluid if needed #Paraphimosis (resolved) #Balanitis (resolved) Diagnostic Test: - Edema and tenderness of the glans penis resolved - Swelling of the distal retracted foreskin. - Constricting band of tissue proximal to the head of the penis at the coronal sulcus. - Hawkins was removed on 05/09 and transitioned to Oivi external urinary catheter. Discussed with family about the need to reinsert hawkins due to the patient's acute urinary retention. Family were in agreement with this plan. Hawkins was reinserted on 05/10 due to urinary retention. - S/p reduction of the paraphimosis by Dr. Vargas on 05/09. Treatment Plan: - Control patient's pain with sedation. - Monitor urine output. - Remove hawkins when appropriate. #Chronic PEG tube dependence Treatment Plan: - Jevity 1.5 at 40 ml/hr x 24 hrs via PEG tube by pump (goal). If no IV fluids, water flushes of 35 ml/hr. - ProStat 30ml BID via PEG tube. - Appreciate obstetric assistant recommendations. - Triglyceride level 05/14: 290. Repeat every 72 hours while on propofol. #Hepatitis DDx: muscle injury vs hemolytic anemia vs myocarditis vs medication induced - Muscle injury/rhabdomyolysis - supported by rising CK and normal ALT. - Hemolytic anemia - possible source of AST from RBC breakdown. - Myocarditis - les likely given normal troponin. - Patient receivedmultiple medications that could potentially cause hepatotoxicity in ICU -Initial resolving, WNL LFTs 05/11, slight increase 05/12 Diagnostic Test: - AST 103 - ALT 100 - ALP 181 - CK 1048 --> 3743 --> 1654->338 - LDH 352 --> 332. - Troponin <0.002. Treatment Plan: - Daily LFTs - Avoid hepatotoxics. #Hypoalbuminemia (improving) DDx: acute hepatitis vs nephrotic syndrome vs sepsis vs malnutrition vs diluational. Diagnostic Test: - UA had urine proteins 1+. - Albumin 4.9 -->3.3 -->2.8 - Hgb and WBC also decreased with albumin, likely diluational. Treatment Plan: - Monitor LFTs, INR, and bilirubin. - Maintain on PEG tube feeds per obstetric assistant recommendations. Renal #Acute kidney injury (resolved) DDx: hypotension, dehydration, or vasodilation from sepsis. Diagnositc Test: - Creatinine 1.3 (baseline: 0.7)--> 1.2 --> 1.0-->0.9 Treatment Plan: - Continue with free water flushes. - Daily renal panel to trend BUN, Cr, and electrolytes. - Avoid nephrotoxins. - Renally dose meds as appropriate. - Strict I&Os, monitor urine output closely. - Monitor for signs of volume overload or uremic symptoms. #Anion Gap Metabolic Acidosis (resolved) #Lactic acidosis (resolved) DDx: seizures vs sepsis vs acute kidney injury vs hypoperfusion. Likely from seizures as patient has no signs of systemic hypoperfusion such as skin mottling, decreased cap refills. Diagnostic Test: - Admission anion gap 22, lactic acid 16.0, bicarbonate 18.7. Treatment Plan: -Recheck LA as needed #Rhabdomyolysis (resolved) DDx: seizures vs hyperthermia vs infectious myositis. Diagnostic Test: - CK 1048 --> 3743 --> 1654. - Witnessed seizure episode lasting 5-10 seconds, characterized by tonic-clonic activity prior to admission. Treatment Plan: - Continue free water flushes. - Monitor urine output. - Correct electrolyte abnormalities. - Control seizures with valproic acid and levetiracetam. - Acetaminophen as needed for fevers. - Monitor renal panel. Heme #Normocytic Anemia #Hematoma on left forearm DDx: Anemia of Inflammation vs dilutional anemia vs drug-induced anemia. Likely dilutional anemia since patient had normal hemoglobin on admission and from IV fluids per sepsis protocol. No signs of bleeding. Diagnostic Test: - Hemoglobin 14.0 -->8.2 over the week Treatment Plan: - Monitor H&H. - Type and screen. - Transfusing for Hgb <7 or symptomatic. #Thrombocytopenia DDx: Dilutional versus consumption versus increased destruction due to sepsis Initial decrease is likely due to dilutional in setting of IV fluids, however his WBC and hemoglobin have leveled off platelets have down trended Diagnostic test: - Platelets: 209 --> 65-->141 Treatment plan: - Monitor daily labs - Avoid excessive oral tracheal suctioning in setting of previous bleed and thrombocytopenia - SCDs for DVT prophylaxis, resume LMWH Endo #no active problems ID #Sepsis #Leukocytosis (resolved) #Bilateral chronic mastoiditis #Sinusitis #Bilateral otitis media #Bilateral otitis externa DDx: meningitis vs acute on chronic mastoiditis vs acute febrile illness. Diagnostic Test: - History of chronic mastoiditis. - CT Head 05/08: prominent sphenoid ethmoid maxillary antral sinusitis, bilateral chronic mastoiditis, bilateral otitis media. - CT Orbit Sella Inner 05/08: severe bilateral chronic mastoiditis, bilateral otitis externa and otitis media, bilateral cholesteatomas in the attics. - Met SIRS criteria on admission: T 105F, HR 176, RR 26, PaCO2 26, WBC 16.3. - Lactic acid 16.0 on admission. - UA negative. - Blood culture negative. - Lumbar puncture: clear, WBC 3, glucose 70, total protein 25. - CSF Streptococcus pneumonia Ag negative. - CSF Streptococcus B antigen negative. - CSF Neisseria meningitis B/E.coli K1 negative. - CSF Neisseria meningitis ACY/W135 Ag negative. - CSF haemophilus influenzae B Ag negative. - MRSA screen negative. - Sputum culture 1+ thurman resistance Pseudomonas -Bilateral ear cultures E coli ESBL Treatment Review (completed) - Discontinue IV rocephin 2 gm q12HR [05/08-05/11] - Discontinue IV vancomycin dosed by pharmacy [05/08-05/11] since MRSA screen is negative. - Discontinue IV acyclovir 700 mg [05/08-05/11] since LP negative. - Discontinued IV ampicillin 2 gm q4HR [05/08-05/09] as patient not in the age group at risk for Listeria infection. - Fluids: 30mL/kg -- 2 L NS fluid infusion and 1 L LR fluid infusion was given in the ED (completed). -Femoral central line removed, replaced with peripheral access Treatment Plan: - Stopped levaquin, topical oxofloxacin - Meropenem 1 g IV every 8 hour (started 05/12) - 05/[address] Jacky Cuadra Otolaryngology recs, ESBL E coli - CSF enterovirus RNA pending. - CSF West Nile virus IgG antibody pending. - CSF West Nile virus IgM antibody. - Repeat blood cultures- NGTD Integumentary #Maculopapular rash to the buttocks DDx: contact dermatitis vs allergic dermatitis Treatment Plan - Patient no longer has diaper on as hawkins is in place. Anticipate rash to improve. Health Maintenance DVT prophylaxis: Lovenox GI prophylaxis: Protonix IV Diet: Jevity Hawkins: present Lines: Peripherals Drips: Propofol, versed, fentanyl Vent: MV, PPlat <30 and TV < 8 ml/kg IBW CODE STATUS: FULL CODE Provider Notation Provider Notation: Although this document has been carefully reviewed, there may still be some phonetic and other typographical errors. These errors are purely grammatical due to imperfections in the software program and should not be construed in any way to compromise the substance of the patient's medical care during this visit. Thank you for the opportunity and privilege in assisting you with this patient's care and management.
[2025-05-14] MEDS: ACETAMINOPHEN IVPB 1,000 MG/100 ML VIAL 250 MG IV (23:10)
--- NOTE | 2025-05-14 23:56 | PD.NEUROPROG ---
Documentation for date of: 05/14/25 Subjective Subjective Interval history: Patient was seen in ICU today with parents at the bedside. Noted patient got reintubated yesterday, still having hyperkinetic movements and excess drooling. No frequent fever spikes noted. Exam - Neurology Vital Signs Temp Pulse Resp BP Pulse Ox O2 Del Method O2 Flow Rate 101.8 F H 112 H 19 98/65 100 Mechanical Ventilation 40 05/14/25 22:00 05/14/25 23:00 05/14/25 18:36 05/14/25 23:00 05/14/25 23:00 05/14/25 20:00 05/13/25 02:30 FiO2 45 05/14/25 22:05 Narrative Exam GENERAL APPEARANCE: Developmentally delayed male , intubated and on mechanical ventilatory support HEENT: Normocephalic, atraumatic, Pupils: Equal reacting to light NECK: Supple, no JVD or bruits. CARDIOVASULAR: Heart: S1, S2 heard, regular without S3-S4 or murmur no rubs or gallops. LUNGS/CHEST: Breath sounds heard equally bilaterally, bilateral Rales and rhonchi heard. ABDOMEN: Soft, nontender, with normal bowel sounds. No pulsatile masses. No rebound, rigidity, or guarding. Normal inspection and palpation. EXTREMITIES: Normal inspection and palpation. No edema, clubbing or cyanosis. SKIN: Warm and dry without rashes. Normal inspection. NEURO: Limited from sedation, brainstem function: Intact, moves all extremities. PSYCHIATRIC: Limited Objective Labs 05/15/25 04:25 05/15/25 04:25 Labs: Laboratory Results - last 24 hr 05/14/25 07:48 WBC 8.9 D RBC 2.84 L Hgb 8.2 L Hct 24.1 L MCV 85 MCH 28.9 MCHC 34.0 RDW Std Deviation 44.6 H Plt Count 141 Neut % (Auto) 45 Lymph % (Auto) 28 [place] % (Auto) 16 H Eos % (Auto) 4 Baso % (Auto) 0 Neut # (Auto) 4.0 Lymph # (Auto) 2.5 [place] # (Auto) 1.4 H Eos # (Auto) 0.4 Baso # (Auto) 0.0 Immature Gran # (Auto) 0.55 H Absolute Nucleated RBC 0.03 H Immature Gran % 6 H Nucleated RBC % 0 Sodium 142 Potassium 3.4 D Chloride 105 Carbon Dioxide 26.0 Anion Gap 11 BUN 17 Creatinine 0.9 Estim Creat Clear Calc 102.5 eGFR > 60 BUN/Creatinine Ratio 19 Glucose 129 H Calculated Osmolality 286 Calcium 8.4 Corrected Calcium 9.4 Phosphorus 3.3 Magnesium 1.8 Total Bilirubin 0.4 D AST 103 H ALT 100 H Alkaline Phosphatase 152 H Total Creatine Kinase 338 H D Total Protein 4.9 L Albumin 2.8 L D Globulin 2.1 L Albumin/Globulin Ratio 1.3 Triglycerides 290 H Procalcitonin 1.68 H HIV 1&2 Antibody Rapid Non-Reactive ABG Interpretation ABG results: 05/09/25 05/09/25 05/09/25 11:56 13:40 18:50 ABG pH 7.40 7.27 L D 7.28 L ABG pCO2 40 43 55 H D ABG pO2 131 H 53 L* D 70 L ABG HCO3 25 20 26 ABG O2 Saturation 99 H 81 L 92 ABG Base Excess 0 -7 L -2 05/10/25 05/11/25 05/12/25 00:14 05:06 01:18 ABG pH 7.35 7.33 L 7.39 ABG pCO2 42 D 54 H D 48 ABG pO2 103 D 93 94 ABG HCO3 23 28 H 29 H ABG O2 Saturation 99 H 98 98 ABG Base Excess -3 2 3 05/12/25 05/12/25 05/13/25 03:58 11:50 05:10 ABG pH 7.46 H 7.39 7.19 L* D ABG pCO2 41 48 60 H D ABG pO2 105 58 L* D 114 H D ABG HCO3 29 H 29 H 23 ABG O2 Saturation 99 H 90 L 98 ABG Base Excess 5 H 4 H -6 L Assessment & Plan Additional Assessment & Plan Additional Plan: David Baltazar is 24 yr male with PMH of chronic mastoiditis (previously had tympanostomy tube placed for recurrent otitis media, now removed), seizure disorder, recurrent pneumonia, cerebral palsy, chronic PEG tube, and asthma who was brought into ED on 05/08/25 for ongoing fever of over 24 hours and reported episode of witnessed seizure by ED. Patient was septic. Neurology was consulted to for LP to rule out meningitis. #Mastoiditis #rule out Meningitis #Tonic clonic seizure #Hx seizures #Cerebral palsy On admission he was noted to have fever of 105, leukocytosis 16, tachycardia 176, and tachypnic 26. CT orbit sella showed b/L otitis externa and media. Reduced mastoid aeration on the left, b/L chlestatomas. He was started on vancomycin, ceftriaxone 2g BID, ampicillin 2g q4hr, and acyclovir. EEG was negative for seizure activity. LP culture was negative: clear, WBC 3, glucose 70, total protein 25. CSF Streptococcus pneumonia Ag negative , Streptococcus B antigen negative. CSF Neisseria meningitis B/E.coli K1 negative, Neisseria meningitis ACY/W135 Ag negative. CSF haemophilus influenzae B Ag negative. MRSA screen negative. Sputum culture thurman resistant Pseudomonas -started meropenam -Discontinued Levofloxacine and started on ear drops Ofloxacin -continue IV Keppra 800mg BID -IV Depakote 187mg q6hr. -seizure precautions -midazolam for breakthrough seizure -Consider trying Glycopyrrolate for secretions if needed. #Paraphimosis #Acute Kidney Injury #Anion Gap Metabolic Acidosis #Lactic acidosis #Elevated total creatine kinase from his hyperkinetic movements #Normocytic Anemia Primary care team to manage above conditions and ongoing care needs.
[2025-05-15] VITALS (33 sets, daily range): BP systolic 91–139; BP diastolic 55–105; PULSE 75–160; RESP 14–41; TEMP 37.3–39.1; O2SAT 95–100; BMI 31.6
[2025-05-15] MEDS: IPRATROPIUM RT 0.5 MG/ 2.5 ML NEBU INH ×4 (00:34→18:25)
[2025-05-15 03:07] LABS: Enterovirus Source CSF
[2025-05-15 03:39] LABS: Cult AFB Sendout- Sputum* See Sep Rpt
[2025-05-15] MEDS: fentaNYL 2,500 MCG/250 ML BAG 2,500 MCG/250 ML BAG 25 MCG IV (03:56)
[2025-05-15] MEDS: PROPOFOL 1,000 MG IVPB 1,000 MG/100 ML VIAL 21.03 MG IV ×4 (03:58→22:36)
[2025-05-15] MEDS: MIDAZOLAM/NS 100 MG IVPB 100 MG/100 ML BAG IV (04:12)
[2025-05-15 04:59] LABS: Basophils # (Auto) 0.1 Thou/mm3 (0.0-0.2); Basophils % (Auto) 1 % (0-2.5); Eosinophils # (Auto) 0.4 Thou/mm3 (0.0-0.5); Eosinophils % (Auto) 4 % (0-10); Hematocrit 28.5 % (41.0-53.0); Hemoglobin 9.0 g/dL (13.5-16.0); Immature Granulocytes Auto 1.02 Thou/mm3 (0.00-0.00); Lymphocytes # (Auto) 2.7 Thou/mm3 (1.0-4.8); Lymphocytes % (Auto) 24 % (10-50); Mean Corpuscular HGB Conc 31.6 g/dl (31.0-37.0); Mean Corpuscular Hemoglobin 28.0 pg (25.0-35.0); Mean Corpuscular Volume 89 fL (80-100); Monocytes # (Auto) 1.9 Thou/mm3 (0.0-0.8); Monocytes % (Auto) 17 % (0-12); Neutrophils # (Auto) 5.0 Thou/mm3 (1.8-7.7); Neutrophils % (Auto) 45 % (37-80); Nucleated Red Blood Cell # 0.02 Thou/mm3 (0.00-0.00); Nucleated Red Blood Cell % 0 /100 WBC (0); Platelet Count 190 Thou/mm3 (140-440); RDW Standard Deviation 47.3 fL (35.1-43.9); Red Blood Count 3.21 Miln/mm3 (4.50-5.90); White Blood Count 11.1 Thou/mm3 (3.8-10.6)
[2025-05-15] MEDS: MEROPENEM INJ 1,000 MG in SODIUM CHLORIDE 0.9% (Popper) 50 ML 100 MG IV ×3 (05:16→21:52)
[2025-05-15 05:30] LABS: Alanine Aminotransferase 152 U/L (10-49); Albumin, Serum 3.2 gm/dL (3.5-5.0); Albumin/Globulin Ratio 1.3 (1.2-2.2); Alkaline Phosphatase 191 U/L (46-116); Anion Gap 9 (7-16); Aspartate Amino Transferase 199 U/L (0-34); BUN/Creatinine Ratio 18 Ratio (12-20); Bilirubin,Total 0.4 mg/dL (0.3-1.2); Blood Urea Nitrogen 14 mg/dL (9-23); Calcium 8.5 mg/dL (8.3-10.6); Calcium (Corrected) 9.1 mg/dL (8.5-10.1); Carbon Dioxide 26.8 mMol/L (20.0-31.0); Chloride 106 mMol/L (98-107); Creatinine (Component) 0.8 mg/dL (0.6-1.3); Estimated Creatinine Clearance 115.3 mL/min (>60); Globulin 2.5 gm/dL (2.3-3.5); Glucose 99 mg/dL (74-106); Magnesium 2.1 mg/dL (1.6-2.6); Osmolality,Calculated 283 (275-295); Phosphorous 4.7 mg/dL (2.4-5.1); Potassium 4.3 mMol/L (3.4-5.1); Sodium 142 mMol/L (136-145); Total Protein 5.7 gm/dL (5.7-8.2); eGFR > 60 See Note
[2025-05-15 05:41] LABS: Path Review Blood Smear Sent to Pathologist
--- NOTE | 2025-05-15 06:42 | ESPR_ITS ---
<Statement entered by Kamlesh Baer MD - 05/15/25 18:09> Patient seen and examined at bedside. I discussed and supervised with the dietary internship physician who took care of this patient. I personally saw and examined the patient. I agree with most of the assessment and plan. Patient weaned of Versed today, continues to receive max Propofol and fentanyl. Scheduled olanzapine HS. Plan for potential bronchoscopy tomorrow. LFTs uptrending, likely in response to medications. Will avoid Tylenol unless fever exceeds 101.0 F. Plan of care discussed with attending Dr. Armendariz. Kamlesh Baer MD PGY-2 Documentation for date of: 05/15/25 Subjective Subjective Interval history: 05/15/2025: Overnight, the patient developed a fever of 101.8?F. PO acetaminophen was switched to IV formulation by the night team. Temperature improved to 99.5?F by morning. Urine output over the past 12 hours was approximately 620 cc. Liver enzymes continue to trend upward, will hold acetaminophen for now. Patient was weaned off midazolam infusion today. Plan is to begin tapering propofol next. Antipsychotic regimen was adjusted from quetiapine to olanzapine to minimize risk of QTc prolongation. Repeat chest X- ray showed improvement in bilateral pneumonia. Bronchoscopy was performed yesterday (05/14). Repeat procedure is being considered for 05/16. Increase in WBCs and fever likely from bronchoscopy. 05/14/2025: No acute events overnight. Stable on versed/ fentanyl and propofol. No vasopressor requirements. Patient underwent bronchoscopy, well tolerated. Gas exchange stable. PPeak remains in mid20s. Patient on minimal FiO2 and PEEP now. Good ventilator synchrony. Continues to have heavy drooling and output form upper airway. Minimal from ETT now. 05/13/2025: Patient increased FiO2 overnight to 100%. Difficulty managing secretions. Bleeding from nose and plugging. Agitated with maximal dose of precedex and benadryl pushes. Patient with low grade temp to 100.4F. Mild secretions from ETT, pink/ frothy. 05/12/2025: Patient weaned down on sedation. Tmax 102 degrees at 1600 hrs. 05/11. Patient developed mild hepatitis, likely response to medications, will monitor. Patient successfully weaned off of propofol and fentanyl, Precedex initiated. Patient extubated, placed on high flow. Continues to have high secretions, treated with chest PT, oral suctioning as needed, ipratropium breathing treatments scheduled. Patient notably agitated, treating with Benadryl as needed and Precedex drip. Will continue to try and decrease sedation while maintaining patent airway. Sputum culture grew thurman resistant Pseudomonas, meropenem initiated. Will continue Levaquin for now pending cultures. Ear cultures taken. Patient maintaining good urine output, will replete volume if patient exceeds greater than 2 L output. 05/11/2025: Overnight, the patient became increasingly agitated and was observed biting on the endotracheal tube. In response, propofol was increased from 40 mcg/kg/min to 45 mcg/kg/min, and fentanyl was increased from 200 mcg/hr to 250 mcg/hr. The plan is to attempt weaning the patient off sedation today, and work towards extubation. A lumbar puncture was performed, which showed 3 WBCs. Infection from meningitis is less likely, but culture results are pending for confirmation. Today, the patient has been experiencing a low-grade fever, with the highest recorded temperature being 100.4?F. After the Hawkins catheter was placed, the patient had 1700 cc of urine output over the past 12 hours. Followed up with Dr. Jacky Cuadra (ENT in [place]). Dr. Cuadra stated that there is nothing additional he could identify on the CT imaging that the radiologist has not already seen. And that if there was something it would likely be surgical and he does not perform surgeries. He recommended covering for Pseudomonas with clindamycin and Unasyn. The plan is to start levofloxacin for Pseudomonas coverage as well. Additionally, Dr. Cuadra suggested culturing the ear. 05/10/2025: Patient remained sedated with propofol and fentanyl throughout the night, maintaining adequate sedation levels. Around 2 AM, the propofol dose was reduced due to MAP in the 60s. 1L of LR was administered on top of the ongoing IV maintenance fluids at 100cc/hr. Following this, the MAP remained stable above 65. At 6:50 PM on 05/09, an ABG revealed a pH of 7.28, pCO2 of 55, and pO2 of 70, indicative of respiratory acidosis. Patient was given 5 grams of magnesium and 15 mg of albuterol over the course of an hour to promote bronchodilation. Magnesium also needed to be repleted. A repeat ABG showed normalization of the respiratory parameters. Patient's Hawkins catheter was removed and replaced with a QiVi catheter overnight per the patient's father?s request. However, the patient developed urinary retention. A bladder scan performed at 6 AM showed 295cc of retained urine, and a subsequent scan in the afternoon revealed 439cc. Primary team consulted ICU team. On 05/09, two rapid responses were initiated due to the patient?s escalating agitation and anxiety. Patient appeared to be in significant pain from his paraphimosis. The primary team consulted the ICU for further management, as the patient had already received diazepam, haldol, versed, and dilaudid earlier that morning, with inadequate relief. Additionally, there was concern over a decline in his pO2 levels. The initial ABG at 11:56 showed: pH 7.40, pCO2 40, pO2 131, HCO3 25. A repeat ABG at 13:40 revealed: pH 7.27, pCO2 43, pO2 53, HCO3 20. Upon evaluation by the ICU team, the patient was noted to be extremely agitated and wearing an oxygen mask, with audible gurgling sounds coming from the upper airway, raising concern for potential airway compromise. Given the risk of inadequate airway protection, the decision was made to transfer the patient to the ICU for intubation and further management. In the ICU, the patient was intubated. Urology, Dr. Vargas, was consulted earlier in the day. He was able to successfully perform a reduction of the paraphimosis. Telemetry Course: Patient was admitted to telemetry for further workup and management of sepsis of unknown source, with concern for meningitis. Empiric broad-spectrum antibiotic and antiviral therapy were started, consisting of ceftriaxone 2g IV twice daily, vancomycin (pharmacy to dose), ampicillin, and acyclovir. Neurology was consulted. CT of the orbit, sella, and inner ear was ordered given the patient?s history of acute mastoiditis, which showed severe bilateral chronic mastoiditis, bilateral otitis externa, bilateral otitis media, and bilateral cholesteatomas in the attics. CT head was also performed and was negative for acute hemorrhage, mass effect, or midline shift. Findings included prominent sphenoid, ethmoid, and maxillary antral sinusitis, bilateral chronic mastoiditis, bilateral otitis media, and opacification in the bilateral attics. For the patient?s seizures, his home medications of valproic acid and levetiracetam were restarted. Orders for midazolam and Haldol were placed as needed for breakthrough seizures and agitation. An ice pack was ordered for his paraphimosis. Infectious disease was also consulted. History of Present Illness: 24-year-old male with a past medical history significant for cerebral palsy, asthma, seizure disorder, chronic mastoiditis (previously treated with tympanostomy tube placement for recurrent otitis media, now removed), recurrent pneumonia, and chronic PEG tube dependence, presented to the ED on 05/08/2025 with a fever lasting over 24 hours. The patient also had a witnessed seizure episode lasting 5-10 seconds, characterized by tonic-clonic activity confined to the left side of the body. ED Course: -Initial vitals were: BP 122/84, HR 176, RR 26, T 105F, O2 sat 96% on room air. -Labs significant for: CBC showed a WBC of 16.3. CMP showed Na 148, K 5.2, Cl 107, bicarbonate 18.7, anion gap 22, creatinine 1.3 (baseline 0.7), lactic acid 3.2, alkaline phosphatase 120, LDH 352, total CK 1048, procalcitonin: 0.14. Urinalysis negative. Influenza A/B testing was negative. -Imaging included: EKG showed supraventricular tachycardia of HR [address] and T-wave abnormality. CXR showed no aspiration pneumonia but was noted to be of poor inspiratory effort. CT CAP w/o contrast seemed to show no gross infiltrates or other notable findings but was noted to be severely degraded by patient motion. -In the ED, patient was given acetaminophen 975 mg, ceftriaxone 1 gram IV, midazolam 2 mg IV x1, albuterol 2.5 mg, Zosyn 3.375 gram, 2 L NS fluid infusion, and 1 L LR fluid infusion. In the ED, the patient was agitated and pulled out his IV. Attempts at peripheral access were unsuccessful, and a right femoral central line was placed. Exam Vital Signs Temp Pulse Resp BP Pulse Ox O2 Del Method O2 Flow Rate 99.5 F 154 H 16 139/105 H 96 Mechanical Ventilation 40 05/15/25 04:00 05/15/25 06:01 05/15/25 00:34 05/15/25 06:01 05/15/25 06:01 05/15/25 05:00 05/13/25 02:30 FiO2 45 05/15/25 05:47 Narrative Exam General: sedated and intubated, nonverbal at baseline, not in acute distress. Skin: Rash near buttock area. Bruising right upper extremity. Head: Normocephalic, atraumatic. Eyes: PERRL. Anicteric. Bilateral lateral eye scleral hemorrhage. Mouth/Throat: Poor dentition. Oral mucosa moist. No obvious lesions in oropharynx. Cough reflex intact. ETT in place. Cardiovascular: Regular rate and rhythm, no murmur. Respiratory: Rhonchi to auscultation in bilateral lung thompson (right more than left). Gastrointestinal: PEG tube in place. Soft, non-distended, no guarding or rebound tenderness. Genitourinary: Decrease swelling of glans penis. Hawkins in place. Extremities: Contracted. No edema, cyanosis, mottling, clubbing. 2+ radial pulse bilaterally, 2+ posterior tibial pulse bilaterally. Objective Labs 05/15/25 04:25 05/15/25 04:25 Labs: Laboratory Results - last 24 hr 05/14/25 05/15/25 07:48 04:25 WBC 8.9 D 11.1 H RBC 2.84 L 3.21 L Hgb 8.2 L 9.0 L Hct 24.1 L 28.5 L MCV 85 89 MCH 28.9 28.0 MCHC 34.0 31.6 RDW Std Deviation 44.6 H 47.3 H Plt Count 141 190 D Neut % (Auto) 45 45 Lymph % (Auto) 28 24 [place] % (Auto) 16 H 17 H Eos % (Auto) 4 4 Baso % (Auto) 0 1 Neut # (Auto) 4.0 5.0 Lymph # (Auto) 2.5 2.7 [place] # (Auto) 1.4 H 1.9 H Eos # (Auto) 0.4 0.4 Baso # (Auto) 0.0 0.1 Immature Gran # (Auto) 0.55 H 1.02 H Absolute Nucleated RBC 0.03 H 0.02 H Immature Gran % 6 H 9 H Nucleated RBC % 0 0 Smear Path Review Sent to Pathologist Sodium 142 142 Potassium 3.4 D 4.3 D Chloride 105 106 Carbon Dioxide 26.0 26.8 Anion Gap 11 9 BUN 17 14 Creatinine 0.9 0.8 Estim Creat Clear Calc 102.5 115.3 eGFR > 60 > 60 BUN/Creatinine Ratio 19 18 Glucose 129 H 99 Calculated Osmolality 286 283 Calcium 8.4 8.5 Corrected Calcium 9.4 9.1 Phosphorus 3.3 4.7 Magnesium 1.8 2.1 Total Bilirubin 0.4 D 0.4 AST 103 H 199 H ALT 100 H 152 H Alkaline Phosphatase 152 H 191 H D Total Creatine Kinase 338 H D Total Protein 4.9 L 5.7 Albumin 2.8 L D 3.2 L Globulin 2.1 L 2.5 Albumin/Globulin Ratio 1.3 1.3 Triglycerides 290 H Procalcitonin 1.68 H HIV 1&2 Antibody Rapid Non-Reactive ABG Interpretation ABG results: 05/09/25 05/09/25 05/09/25 11:56 13:40 18:50 ABG pH 7.40 7.27 L D 7.28 L ABG pCO2 40 43 55 H D ABG pO2 131 H 53 L* D 70 L ABG HCO3 25 20 26 ABG O2 Saturation 99 H 81 L 92 ABG Base Excess 0 -7 L -2 1005/11/25 05/12/25 00:14 05:06 01:18 ABG pH 7.35 7.33 L 7.39 ABG pCO2 42 D 54 H D 48 ABG pO2 103 D 93 94 ABG HCO3 23 28 H 29 H ABG O2 Saturation 99 H 98 98 ABG Base Excess -3 2 3 05/12/25 05/12/25 05/13/25 03:58 11:50 05:10 ABG pH 7.46 H 7.39 7.19 L* D ABG pCO2 41 48 60 H D ABG pO2 105 58 L* D 114 H D ABG HCO3 29 H 29 H 23 ABG O2 Saturation 99 H 90 L 98 ABG Base Excess 5 H 4 H -6 L Quality Measures Quality Measures VTE prophylaxis (SCDs) and sepsis Current suspected stage: sepsis Possible source: pulmonary Blood cultures ordered: yes Antibiotic ordered: Yes Assessment & Plan Assessment Current Active Medications: Generic Name Dose Route Start Last Admin Trade Name Freq PRN Reason Stop Dose Admin Acetaminophen 650 mg 05/14/25 05:13 05/14/25 18:15 Acetaminophen 325 Mg Tablet PO 06/13/25 05:12 650 mg On Hold: 05/14/25 23:01 Q6HR PRN Administration Fever >100.4 Albuterol/Ipratropium 3 ml 05/09/25 18:19 05/12/25 03:42 Albuterol/Ipratropium (Duoneb) Rt Racquel 3 Ml Nebu INH 06/08/25 18:18 3 ml Q2HR PRN Administration SHORTNESS OF BREATH OR WHEEZE Enoxaparin Sodium 30 mg 05/11/25 09:00 05/12/25 08:11 Enoxaparin Sod Inj 30 Mg/0.3 Ml Syringe SC 05/25/25 08:59 30 mg QDAY KYA Administration Valproic Acid 187.5 mg/ Sodium 51.875 mls @ 51.875 mls/hr 05/09/25 18:00 05/15/25 05:23 Chloride IV 06/07/25 17:59 51.875 mls/hr Q6HR KYA Administration Protocol Midazolam HCl 100 mg in 100 mls @ 1 mls/hr 05/11/25 17:25 05/15/25 06:00 Versed Pf Inj In Ns Premix IV 05/16/25 17:24 5 mg/hr .Q24H PRN 5 mls/hr PER PROTOCOL Titration Protocol 1 MG/HR Meropenem 1,000 mg/ Sodium 50 mls @ 100 mls/hr 05/12/25 14:00 05/15/25 05:46 Chloride IV 05/19/25 13:59 Infused Q8HR KYA Infusion Propofol 1,000 mg in 100 mls @ 2.103 mls/hr 05/13/25 04:16 05/15/25 06:00 Diprivan Ivpb IV 06/12/25 04:15 50 mcg/kg/min .Q24H PRN 21.03 mls/hr PER PROTOCOL Titration Protocol 5 MCG/KG/MIN Fentanyl Citrate 2,500 mcg in 250 mls @ 2.5 mls/hr 05/13/25 04:17 05/15/25 06:00 Sublimaze Inj 2,500 Mcg/250 Ml Bag IV 05/18/25 04:16 300 mcg/hr .Q24H PRN 30 mls/hr PER PROTOCOL Titration Protocol 25 MCG/HR Acetaminophen 1,000 mg in 100 mls @ 250 mls/hr 05/15/25 00:47 Ofirmev Inj IV 05/15/25 18:23 Q6HR PRN TEMP >99.9 Ipratropium [place] 0.5 mg 05/12/25 12:00 05/15/25 05:46 Ipratropium Rt 0.5 Mg/ 2.5 Ml Nebu INH 06/11/25 11:59 0.5 mg Q6HR KYA Administration Levetiracetam 800 mg 05/08/25 21:00 05/14/25 20:29 Levetiracetam Inj 100 Mg/Ml Vial 5ml IV 06/07/25 20:59 800 mg BID KYA Administration Ofloxacin 5 drop 05/09/25 10:15 05/14/25 20:29 Ofloxacin Op Racquel 0.3% 5 Ml Btl BOTH EARS 05/18/25 10:14 5 drops BID KYA Administration Olanzapine 5 mg 05/13/25 14:15 05/14/25 08:12 Olanzapine 5 Mg Tablet PO 06/12/25 14:14 5 mg QDAY KYA Administration Ondansetron HCl 4 mg 05/08/25 11:36 Ondansetron Inj 2 Mg/Ml Inj 2 Ml IVP 06/07/25 11:35 Q6HR PRN NAUSEA OR VOMITING Protocol Pantoprazole Sodium 40 mg 05/12/25 11:25 05/14/25 08:09 Pantoprazole Inj 40 Mg Vial IVP 06/11/25 11:24 40 mg QDAY KYA Administration Pharmacy Consult 1 each 05/08/25 16:12 Pharmacy To Consult Patient XX 06/07/25 16:11 PRN PRN CONSULT Sodium Chloride 3 ml 05/12/25 09:33 Sodium Chloride Rt Racquel 0.9% 3 Ml Nebu INH 06/11/25 09:32 PRN PRN SOLN Plan 24-year-old male with cerebral palsy, asthma, seizure disorder, chronic mastoiditis, recurrent pneumonia, and chronic PEG tube dependence presented with fever and seizure, was admitted for sepsis workup, and later transferred to the ICU for intubation due to concerns about airway protection. Neurology #Breakthrough tonic clonic seizure #History of seizures #Cerebral palsy DDx: likely secondary to sepsis vs electrolyte imbalances vs medication non- compliance or inadequate medication dosing vs hypoglycemia vs dehydration. Diagnosis: - Temperature of 105F on admission. - Sodium 148 and potassium 5.2 on admission. - EEG unremarkable Treatment Plan: - Continue valproic acid 187.5 mg Q6H. - Continue levetiracetam 800mg BID. - Adjust seizure medications if breakthrough seizures persist. - Seizure precautions. - Aspiration precautions. - Repeat CBC, electrolytes, renal function, and liver function tests to monitor for any metabolic derangements contributing to seizures. #Agitated delerium Patient was extremely agitated before ICU admission, likely due to pain from paraphimosis. Patient initially sedated with propofol and fentanyl, titrated to Precedex with Benadryl as needed. Diagnostic Test: - 05/10 AM: RASS was -4 : no response to voice, but movement to physical stimulation. - 05/11 AM: RASS was -4. - 05/12 AM: Patient active but not opening eyes, mobile, appears to be in distress. - 05/13 AM: Intermittently agitated but sedated with RASS -3. - 05/15 AM: RASS was -4. Treatment Plan: - Restarted on propofol 50 mcg/kg/min and fentanyl 300 mcg. - Versad 5mg/h was tapered off on 05/15. - Plan to start tapering off propofol next. - CK cleared and TG 290 on 05/14. - Olanzapine 5mg nightly. Cardiovascular #no active problems Respiratory #Failed extubation 05/12 #Acute hypoxic respiratory failure Diagnostic Test: - ABG 05/10 at 00:14: pH 7.35, pCO2 41, pO2 103, HCO3 23. - ABG 05/11 at 05:06: pH 7.33, pCO2 54, pO2 93, HCO3 28. - CXR 05/11: Mild bilateral perihilar pneumonia. To assess for ventilator associated pneumonia. Not much change from 05/09 CXR. - Patient extubated to [facility] 05/12, chest film with centro-bronchovascular congestion and multifocal pneumonia. - Reintubated overnight 05/13- VC/AC PPeak 20 PEEP 5 FiO2 40% - Patient underwent bronchoscopy on 05/14 for secretions, well tolerated. - Pseudomonas from ETT secretions previously (05/09). - CXR 05/15: improvement in bilateral pneumonia. - 05/15 MV settings: VT 400, RR 14, PEEP 6, FiO2 35, Ppeak 27.3-28.4, Pplateau 17.3. Treatment Plan: - Bronchoscopy culture pending. - Chest physiotherapy BID. - Ipratropium 0.5 mg every 6 hours. - Continue with mechanical ventilation. #Bronchospasm #History of asthma Diagnostic Test: - Although the patient has a history of asthma, the bronchospasm is most likely from the irritant effect of blood in the airway. A small amount of blood, which was likely from dryness of the nasal mucosa, was suctioned out during intubation. Treatment Plan: - Magnesium for bronchodilator effect as needed. - Albuterol as needed. GI, , F/E/N #Acute urinary retention (resolved) Treatment Plan - Maintain hawkins catheter. Monitor UOP. - Monitor urine output, replace fluid if needed. #Paraphimosis (resolved) #Balanitis (resolved) Diagnostic Test: - Edema and tenderness of the glans penis resolved - Swelling of the distal retracted foreskin. - Constricting band of tissue proximal to the head of the penis at the coronal sulcus. - Hawkins was removed on 05/09 and transitioned to Oivi external urinary catheter. Discussed with family about the need to reinsert hawkins due to the patient's acute urinary retention. Family were in agreement with this plan. Hawkins was reinserted on 05/10 due to urinary retention. - S/p reduction of the paraphimosis by Dr. Vargas on 05/09. Treatment Plan: - Control patient's pain with sedation. - Monitor urine output. - Remove hawkins when appropriate. #Chronic PEG tube dependence Treatment Plan: - Jevity 1.5 at 40 ml/hr x 24 hrs via PEG tube by pump (goal). If no IV fluids, water flushes of 35 ml/hr. - ProStat 30ml BID via PEG tube. - Appreciate cook ship recommendations. - Triglyceride level 05/14: 290. Repeat every 72 hours while on propofol. - Next triglyceride level check on 05/17. #Hepatitis DDx: muscle injury vs hemolytic anemia vs myocarditis vs medication induced - Muscle injury/rhabdomyolysis - supported by rising CK and normal ALT. - Hemolytic anemia - possible source of AST from RBC breakdown. - Myocarditis - less likely given normal troponin. - Patient received multiple medications that could potentially cause hepatotoxicity in ICU. -Initial resolving, WNL LFTs 05/11, slight increase 05/12 Diagnostic Test: - AST 103 --> 199 - ALT 100 --> 152 - ALP 152 --> 191 - CK 1048 --> 3743 --> 1654->338 - LDH 352 --> 332. - Troponin <0.002. Treatment Plan: - Continue daily LFTs. - Avoid acetaminophen unless fever exceeds 101.0?F - Meropenem likely also contributing since it is hepatotoxic. Will continue to monitor. - Will reassess if transaminases continue to rise or clinical status changes. #Hypoalbuminemia (improving) DDx: acute hepatitis vs nephrotic syndrome vs sepsis vs malnutrition vs diluational. Diagnostic Test: - UA had urine proteins 1+. - Albumin 4.9 -->3.3 -->2.8 --> 3.2. - Hgb and WBC also decreased with albumin, likely diluational. Treatment Plan: - Monitor LFTs, INR, and bilirubin. - Maintain on PEG tube feeds per cook ship recommendations. Renal #Acute kidney injury (resolved) DDx: hypotension, dehydration, or vasodilation from sepsis. Diagnositc Test: - Creatinine 1.3 (baseline: 0.7)--> 1.2 --> 1.0-->0.9 Treatment Plan: - Continue with free water flushes. - Daily renal panel to trend BUN, Cr, and electrolytes. - Avoid nephrotoxins. - Renally dose meds as appropriate. - Strict I&Os, monitor urine output closely. - Monitor for signs of volume overload or uremic symptoms. #Anion Gap Metabolic Acidosis (resolved) #Lactic acidosis (resolved) DDx: seizures vs sepsis vs acute kidney injury vs hypoperfusion. Likely from seizures as patient has no signs of systemic hypoperfusion such as skin mottling, decreased cap refills. Diagnostic Test: - Admission anion gap 22, lactic acid 16.0, bicarbonate 18.7. Treatment Plan: -Recheck LA as needed #Rhabdomyolysis (resolving) DDx: seizures vs hyperthermia vs infectious myositis. Diagnostic Test: - CK 1048 --> 3743 --> 1654 --> 338. - Witnessed seizure episode lasting 5-10 seconds, characterized by tonic-clonic activity prior to admission. Treatment Plan: - Continue free water flushes. - Monitor urine output. - Correct electrolyte abnormalities. - Control seizures with valproic acid and levetiracetam. - Acetaminophen as needed for fevers. - Monitor renal panel. Heme #Leukocytosis DDx: likely due to bronchoscopy on 05/14 vs infection of unknown source. Diagnostic Test: - Fever spike of 101.8?F on 05/14. Treatment Plan: - Continue Meropenem 1 g IV every 8 hour (started 05/12). #Normocytic Anemia #Hematoma on left forearm DDx: Anemia of Inflammation vs dilutional anemia vs drug-induced anemia. Likely dilutional anemia since patient had normal hemoglobin on admission and from IV fluids per sepsis protocol. No signs of bleeding. Diagnostic Test: - Hemoglobin 14.0 -->8.2 over the week Treatment Plan: - Monitor H&H. - Type and screen. - Transfusing for Hgb <7 or symptomatic. #Thrombocytopenia (resolved) DDx: Dilutional versus consumption versus increased destruction due to sepsis Initial decrease is likely due to dilutional in setting of IV fluids, however his WBC and hemoglobin have leveled off platelets have down trended Diagnostic test: - Platelets: 209 --> 65-->141. Treatment plan: - Monitor daily labs - Avoid excessive oral tracheal suctioning in setting of previous bleed and thrombocytopenia - SCDs for DVT prophylaxis, resume LMWH. Endo #no active problems ID #Sepsis #Bilateral chronic mastoiditis #Sinusitis #Bilateral otitis media #Bilateral otitis externa DDx: meningitis vs acute on chronic mastoiditis vs acute febrile illness. Diagnostic Test: - History of chronic mastoiditis. - CT Head 05/08: prominent sphenoid ethmoid maxillary antral sinusitis, bilateral chronic mastoiditis, bilateral otitis media. - CT Orbit Sella Inner 05/08: severe bilateral chronic mastoiditis, bilateral otitis externa and otitis media, bilateral cholesteatomas in the attics. - Met SIRS criteria on admission: T 105F, HR 176, RR 26, PaCO2 26, WBC 16.3. - Lactic acid 16.0 on admission. - UA negative. - Blood culture 05/08: negative. - Lumbar puncture: clear, WBC 3, glucose 70, total protein 25. - CSF Streptococcus pneumonia Ag negative. - CSF Streptococcus B antigen negative. - CSF Neisseria meningitis B/E.coli K1 negative. - CSF Neisseria meningitis ACY/W135 Ag negative. - CSF haemophilus influenzae B Ag negative. - MRSA screen negative. - Sputum culture 1+ thurman resistance Pseudomonas. - Bilateral ear cultures E coli ESBL. - Repeat blood cultures (05/11) negative. Treatment Review (completed) - Discontinue IV rocephin 2 gm q12HR [05/08-05/11]. - Discontinue IV vancomycin dosed by pharmacy [05/08-05/11] since MRSA screen is negative. - Discontinue IV acyclovir 700 mg [05/08-05/11] since LP negative. - Discontinued IV ampicillin 2 gm q4HR [05/08-05/09] as patient not in the age group at risk for Listeria infection. - Fluids: 30mL/kg -- 2 L NS fluid infusion and 1 L LR fluid infusion was given in the ED. - Femoral central line removed, replaced with peripheral access. - Discontinued IV Levaquin 750 mg [05/11-05/12]. Treatment Plan: - Topical oxofloxacin. - Meropenem 1 g IV every 8 hour (started 05/12). - CSF enterovirus RNA pending. - CSF West Nile virus IgG antibody pending. - CSF West Nile virus IgM antibody. Integumentary #Maculopapular rash to the buttocks DDx: contact dermatitis vs allergic dermatitis Treatment Plan - Patient no longer has diaper on as hawkins is in place. Anticipate rash to improve. Health Maintenance DVT prophylaxis: Lovenox GI prophylaxis: Protonix IV Diet: Jevity Hawkins: present Lines: Peripherals Drips: Propofol, fentanyl Vent: MV, PPlat <30 and TV < 8 ml/kg IBW CODE STATUS: FULL CODE Patient plan of care was discussed with the senior resident, Dr. Baer, and attending physician, Dr. Armendariz. Diaz Coppola DO Internal Medicine PGY-1 Attending Provider Attestation/Addendum Patient seen and examined with the above resident, Diaz Coppola DO. I agree with the findings, assessment, and plan of care as documented except for any differences below. Patient with fever overnight, remains on appropriate antibiotics per cultures/ sensitivities. Monitor off Tylenol and repeat blood cultures should he spike again. Can see fever from atelectasis and BAL after bronchoscopy. Has drug resistant organisms, plan to treat for 10 days at least now that he has failed extubation once. Repeat bronchoscopy tomorrow potentially and try to facilitate weaning. Significant oral and nasopharyngeal secretions, no NG in place. TF started via PEG and tolerated well thus far. Patient with CVC removed, only hawkins now in place nearing 1 week as well. Plan to challenge with removal in next few days. Renal function now returned to baseline. He remains hemodynamically stable off pressors. Stop versed today and begin weaning sedation in anticipation of extubation in ext few days. Educated family on possible need for tracheostomy if fails to be successfully kept off MV once again. Chest film slightly improved centrally but peripheral infiltrates persist. Total critical care time: I personally spent 40 minutes for review of physiologic parameters, directing plan of care, coordination of care with other specialists, and counseling family at the bedside. This is exclusive of time spent teaching housestaff or performing any separate billable procedures. The patient remains at significant risk for further morbidity and mortality warranting close monitoring and care only available in the ICU. Critical care services required for acute on chronic hypoxic respiratory failure, acute encephalopathy, breakthrough seizures, balantitis/ paraphimosis, HCAP/ VAP.
[2025-05-15] MEDS: levETIRAcetam INJ 100 MG/ML VIAL 5ML 800 MG IV ×2 (08:55→20:50)
[2025-05-15] MEDS: OFLOXACIN OP SOL 0.3% 5 ML BTL 5 DROP BOTH EARS ×2 (08:55→20:50)
[2025-05-15] MEDS: ENOXAPARIN SOD INJ 30 MG/0.3 ML SYRINGE SC (08:55)
--- NOTE | 2025-05-15 10:09 | XR_ITS ---
EXAMINATION: AP chest single view TECHNIQUE: AP portable semiupright chest single view Date and time: May 15, 2025, 11:48 a.m., comparison May 13, 2025 INDICATIONS: Pneumonia, hypoxic respiratory failure post intubation this week FINDINGS: Improvement in bilateral pneumonia but significant residual Endotracheal tube tip 23 mm above haresh Mild prominence cardiac contour Mild vascular congestion. Reduced inspiratory effort IMPRESSION: Improvement in bilateral pneumonia Endotracheal tube tip 23 mm above haresh
--- NOTE | 2025-05-15 11:36 | PC.SS ---
SS update: Patient receiving IV antibiotics.
[2025-05-15] MEDS: fentaNYL 2,500 MCG/250 ML BAG 2,500 MCG/250 ML BAG 30 MCG IV ×2 (12:54→21:49)
--- NOTE | 2025-05-15 22:50 | VVPN_ITS ---
Telemedicine visit statement This visit was conducted with the use of interactive audio and video telecommunications system that permits real time communication between the patient and the provider. Patient's verbal consent for virtual visit was obtained on 05/15/25 at 2250. Documentation for date of: 05/15/25 Subjective Subjective Interval history: Patient is in ICU, continue to remain intubated and on [facility] ventilatory support. Still on sedation. Still gets fever spikes and excess secretion Virtual exam Vital Signs Temp Pulse Resp BP Pulse Ox O2 Del Method O2 Flow Rate 101.5 F H 151 H 15 133/78 H 95 Mechanical Ventilation 40 05/15/25 18:00 05/15/25 22:23 05/15/25 18:25 05/15/25 22:23 05/15/25 22:23 05/15/25 12:00 05/13/25 02:30 FiO2 35 05/15/25 22:23 Objective Labs 05/15/25 04:25 05/15/25 04:25 Labs: Laboratory Results - last 24 hr 05/15/25 04:25 WBC 11.1 H RBC 3.21 L Hgb 9.0 L Hct 28.5 L MCV 89 MCH 28.0 MCHC 31.6 RDW Std Deviation 47.3 H Plt Count 190 D Neut % (Auto) 45 Lymph % (Auto) 24 [place] % (Auto) 17 H Eos % (Auto) 4 Baso % (Auto) 1 Neut # (Auto) 5.0 Lymph # (Auto) 2.7 [place] # (Auto) 1.9 H Eos # (Auto) 0.4 Baso # (Auto) 0.1 Immature Gran # (Auto) 1.02 H Absolute Nucleated RBC 0.02 H Immature Gran % 9 H Nucleated RBC % 0 Smear Path Review Sent to Pathologist Sodium 142 Potassium 4.3 D Chloride 106 Carbon Dioxide 26.8 Anion Gap 9 BUN 14 Creatinine 0.8 Estim Creat Clear Calc 115.3 eGFR > 60 BUN/Creatinine Ratio 18 Glucose 99 Calculated Osmolality 283 Calcium 8.5 Corrected Calcium 9.1 Phosphorus 4.7 Magnesium 2.1 Total Bilirubin 0.4 AST 199 H ALT 152 H Alkaline Phosphatase 191 H D Total Protein 5.7 Albumin 3.2 L Globulin 2.5 Albumin/Globulin Ratio 1.3 ABG Interpretation ABG results: 05/09/25 05/09/25 05/09/25 11:56 13:40 18:50 ABG pH 7.40 7.27 L D 7.28 L ABG pCO2 40 43 55 H D ABG pO2 131 H 53 L* D 70 L ABG HCO3 25 20 26 ABG O2 Saturation 99 H 81 L 92 ABG Base Excess 0 -7 L -2 05/10/25 05/11/25 05/12/25 00:14 05:06 01:18 ABG pH 7.35 7.33 L 7.39 ABG pCO2 42 D 54 H D 48 ABG pO2 103 D 93 94 ABG HCO3 23 28 H 29 H ABG O2 Saturation 99 H 98 98 ABG Base Excess -3 2 3 05/12/25 05/12/25 05/13/25 03:58 11:50 05:10 ABG pH 7.46 H 7.39 7.19 L* D ABG pCO2 41 48 60 H D ABG pO2 105 58 L* D 114 H D ABG HCO3 29 H 29 H 23 ABG O2 Saturation 99 H 90 L 98 ABG Base Excess 5 H 4 H -6 L Assessment & Plan Assessment David Baltazar is 24 yr male with PMH of chronic mastoiditis (previously had tympanostomy tube placed for recurrent otitis media, now removed), seizure disorder, recurrent pneumonia, cerebral palsy, chronic PEG tube, and asthma who was brought into ED on 05/08/25 for ongoing fever of over 24 hours and reported episode of witnessed seizure by ED. Patient was septic. Neurology was consulted to for LP to rule out meningitis. #Mastoiditis #rule out Meningitis #Tonic clonic seizure #Hx seizures #Cerebral palsy On admission he was noted to have fever of 105, leukocytosis 16, tachycardia 176, and tachypnic 26. CT orbit sella showed b/L otitis externa and media. Reduced mastoid aeration on the left, b/L ch[place]atomas. He was started on vancomycin, ceftriaxone 2g BID, ampicillin 2g q4hr, and acyclovir. EEG was negative for seizure activity. LP culture was negative: clear, WBC 3, glucose 70, total protein 25. CSF Streptococcus pneumonia Ag negative , Streptococcus B antigen negative. CSF Neisseria meningitis B/E.coli K1 negative, Neisseria meningitis ACY/W135 Ag negative. CSF haemophilus influenzae B Ag negative. MRSA screen negative. Sputum culture thurman resistant Pseudomonas -started meropenam -Discontinued Levofloxacine and started on ear drops Ofloxacin -continue IV Keppra 800mg BID -IV Depakote 187mg q6hr. -seizure precautions -midazolam for breakthrough seizure -Consider trying Glycopyrrolate for secretions if needed. #Paraphimosis #Acute Kidney Injury #Anion Gap Metabolic Acidosis #Lactic acidosis #Elevated total creatine kinase from his hyperkinetic movements #Normocytic Anemia Primary care team to manage above conditions and ongoing care needs.
[2025-05-15] MEDS: ACETAMINOPHEN IVPB 1,000 MG/100 ML VIAL 250 MG IV (22:54)
[2025-05-16] VITALS (34 sets, daily range): BP systolic 105–136; BP diastolic 63–96; PULSE 91–176; RESP 12–48; TEMP 37.3–39.2; O2SAT 97–100; BMI 34.4
[2025-05-16] MEDS: BACLOFEN 10 MG TABLET PO (01:25)
[2025-05-16] MEDS: DOXYCYCLINE INJ 100 MG in SODIUM CHLORIDE 0.9% (POP) 100 ML IV ×3 (01:25→22:00)
[2025-05-16] MEDS: MIDAZOLAM INJ 1 MG/ML VIAL 2 ML 2 MG IVP (02:11)
[2025-05-16] MEDS: PROPOFOL 1,000 MG IVPB 1,000 MG/100 ML VIAL 21.03 MG IV ×5 (02:18→22:23)
--- NOTE | 2025-05-16 05:00 | XR_ITS ---
Examination: Abdomen sonogram, Limited Date and time of exam: May 16, 2025, 0744 hours INDICATIONS: Abdominal pain this week Technique: Real-time rodriguez scale transabdominal sonographic images of the upper abdomen obtained. Findings: Negative for gallstones Gallbladder wall 0.35 cm no edema Common bile duct 0.5 cm Liver 13.9 cm fatty infiltration Pancreatic head 2.6 cm Aorta not enlarged Patent IVC IMPRESSION: Normal gallbladder Fatty infiltration throughout the liver
[2025-05-16] MEDS: MEROPENEM INJ 1,000 MG in SODIUM CHLORIDE 0.9% (Popper) 50 ML 100 MG IV ×3 (05:34→22:52)
[2025-05-16] MEDS: fentaNYL 2,500 MCG/250 ML BAG 2,500 MCG/250 ML BAG 30 MCG IV ×3 (05:56→22:30)
[2025-05-16] MEDS: IPRATROPIUM RT 0.5 MG/ 2.5 ML NEBU INH ×2 (06:21→13:21)
[2025-05-16] MEDS: IBUPROFEN SUSP 100 MG/5 ML UDC PO (06:22)
[2025-05-16] MEDS: Magnesium Sulfate 2 GM Ivpb 2 GM/50 ML BAG IV (06:22)
[2025-05-16 06:39] LABS: West Nile Virus (IgM), CSF <0.90
[2025-05-16 06:41] LABS: Enterovirus RNA, PCR CSF NOT DETECTED; VDRL, CSF Qual* NON-REACTIVE
[2025-05-16 07:03] LABS: Alanine Aminotransferase 93 U/L (10-49); Albumin, Serum 3.2 gm/dL (3.5-5.0); Albumin/Globulin Ratio 1.1 (1.2-2.2); Alkaline Phosphatase 158 U/L (46-116); Anion Gap 12 (7-16); Aspartate Amino Transferase 56 U/L (0-34); BUN/Creatinine Ratio 11 Ratio (12-20); Bilirubin,Total 0.3 mg/dL (0.3-1.2); Blood Urea Nitrogen 8 mg/dL (9-23); Calcium 8.6 mg/dL (8.3-10.6); Calcium (Corrected) 9.2 mg/dL (8.5-10.1); Carbon Dioxide 24.3 mMol/L (20.0-31.0); Chloride 106 mMol/L (98-107); Creatinine (Component) 0.7 mg/dL (0.6-1.3); Estimated Creatinine Clearance 133.2 mL/min (>60); Globulin 2.8 gm/dL (2.3-3.5); Glucose 94 mg/dL (74-106); Magnesium 1.5 mg/dL (1.6-2.6); Osmolality,Calculated 281 (275-295); Phosphorous 4.6 mg/dL (2.4-5.1); Potassium 4.5 mMol/L (3.4-5.1); Sodium 142 mMol/L (136-145); Total Protein 6.0 gm/dL (5.7-8.2); eGFR > 60 See Note
[2025-05-16 08:38] LABS: Basophils # (Auto) 0.1 Thou/mm3 (0.0-0.2); Basophils % (Auto) 1 % (0-2.5); Eosinophils # (Auto) 0.5 Thou/mm3 (0.0-0.5); Eosinophils % (Auto) 3 % (0-10); Hematocrit 27.7 % (41.0-53.0); Immature Granulocytes Auto 0.92 Thou/mm3 (0.00-0.00); Lymphocytes # (Auto) 4.0 Thou/mm3 (1.0-4.8); Lymphocytes % (Auto) 24 % (10-50); Mean Corpuscular HGB Conc 31.4 g/dl (31.0-37.0); Mean Corpuscular Hemoglobin 28.1 pg (25.0-35.0); Mean Corpuscular Volume 89 fL (80-100); Monocytes # (Auto) 2.3 Thou/mm3 (0.0-0.8); Monocytes % (Auto) 14 % (0-12); Neutrophils # (Auto) 8.8 Thou/mm3 (1.8-7.7); Neutrophils % (Auto) 53 % (37-80); Nucleated Red Blood Cell # 0.03 Thou/mm3 (0.00-0.00); Nucleated Red Blood Cell % 0 /100 WBC (0); Platelet Count 320 Thou/mm3 (140-440); RDW Standard Deviation 48.2 fL (35.1-43.9); Red Blood Count 3.10 Miln/mm3 (4.50-5.90); White Blood Count 16.7 Thou/mm3 (3.8-10.6)
[2025-05-16 08:52] LABS: Hemoglobin 8.7 g/dL (13.5-16.0)
--- NOTE | 2025-05-16 09:05 | XR_ITS ---
EXAMINATION: AP chest single view TECHNIQUE: AP portable supine chest single view Date and time: May 16, 2025, 0917 hours, comparison May 15, 2025 INDICATIONS: Hypoxic respiratory failure FINDINGS: Worsening diffuse severe left lung pneumonia Mild right perihilar pneumonia Endotracheal tube tip 3.9 cm above haresh IMPRESSION: Worsening diffuse severe left lung pneumonia
--- NOTE | 2025-05-16 09:14 | XR_ITS ---
Examination: CT chest, without intravenous contrast. CT abdomen, without intravenous contrast. CT pelvis, without intravenous contrast. 2-D sagittal and coronal reconstructions. 3-D reconstructions. Date and time of exam: May 16, 2025, 1056 hours, comparison May 08, 2025 INDICATIONS: Unknown source of infection, sepsis alert CTDI vol (mgy) 14.2 DLP (MGycm) 1124 Technique: Multiple CT images, 3.0 mm slice thickness, obtained chest, abdomen, pelvis, with the high-resolution 64 slice scanner.. Sagittal and coronal 2-D reconstructions are obtained. 3-D reconstructions Low dose protocols were performed. One or more of the following dose reduction techniques were used; automated exposure control, adjustment of the mA and/or KV according to patient size, use of iterative reconstruction technique. Findings: No thoracic aortic aneurysmal dilatation Pulmonary artery segments are not enlarged. Extensive bilateral lung opacity most severe in the upper lung zones with minimal bilateral pleural disease No focal liver or splenic lesions Small gallstones No pancreatic or adrenal mass Mild renal scarring, no hydronephrosis Aorta normal size No bowel obstruction No pericecal inflammatory change No diverticulitis No prostatomegaly Urinary bladder wall shows mild thickening urinary Osborne catheter present IMPRESSION: Extensive bilateral pneumonia Cystitis pattern Cholelithiasis
--- NOTE | 2025-05-16 09:15 | XR_ITS ---
Examination: CT brain head without contrast. 2-D sagittal coronal reconstructions Date and time of exam: May 16, 2025, 1055 hours INDICATIONS: Altered mental status today CTDI: vol (mGy): 62.2 DLP: (mGycm): 1150 Technique: Multiple CT axial sections of the brain have been obtained, 5 mm slice thickness. Contrast has not been administered. 2-D sagittal, coronal reconstructions have been obtained Low dose protocols were performed. One or more of the following dose reduction techniques were used; automated exposure control, adjustment of the mA and/or KV according to patient size, use of iterative reconstruction technique. Findings: No significant ventricular enlargement. Intra-axial or extra-axial hemorrhage density is not seen. No mass effect or midline shift Basal cisterns are not remarkable. Fourth ventricle is midline. Cranial vault intact. Impression: Negative for acute hemorrhage, mass effect or midline shift Advise clinical correlation and follow-up accordingly
--- NOTE | 2025-05-16 09:15 | XR_ITS ---
Examination: Venous duplex upper extremity sonogram, bilateral. Date and time of exam: May 16, 2025, 1341 hours Indications, immobile patient intubated in the ICU Technique: Multiple sonographic images of the deep venous system have been obtained. B-mode/2-D grayscale imaging of vascular structures and Doppler spectral analysis (waveforms) and color performed Both legs are examined. Findings: Normal right upper extremity deep venous system Positive for nonocclusive thrombus in the left brachial vein IMPRESSION: Positive for acute nonocclusive thrombus in the left brachial vein
--- NOTE | 2025-05-16 09:19 | ESPR_ITS ---
Subjective Subjective Interval history: day 5 antipseudomonal rx human metapneumovirus and rhino/enterovirus at [facility] cxr improved. still febrile though Exam Vital Signs Temp Pulse Resp BP Pulse Ox O2 Del Method O2 Flow Rate 101.3 F H 110 H 16 120/83 98 Mechanical Ventilation 40 05/16/25 08:00 05/16/25 08:00 05/16/25 08:00 05/16/25 08:00 05/16/25 08:00 05/16/25 08:00 05/13/25 02:30 FiO2 35 05/16/25 08:00 Narrative Exam still febrile a bit long for virus but possible. hopefully will go to ct today as precaution Objective - Internal Medicine Labs 05/16/25 07:00 05/16/25 04:46 Labs: Laboratory Results - last 24 hr 05/10/25 05/16/25 05/16/25 22:45 04:46 07:00 WBC 16.7 H D RBC 3.10 L Hgb 8.7 L Hct 27.7 L MCV 89 MCH 28.1 MCHC 31.4 RDW Std Deviation 48.2 H Plt Count 320 D Neut % (Auto) 53 Lymph % (Auto) 24 [place] % (Auto) 14 H Eos % (Auto) 3 Baso % (Auto) 1 Neut # (Auto) 8.8 H Lymph # (Auto) 4.0 [place] # (Auto) 2.3 H Eos # (Auto) 0.5 Baso # (Auto) 0.1 Immature Gran # (Auto) 0.92 H Absolute Nucleated RBC 0.03 H Immature Gran % 6 H Nucleated RBC % 0 Sodium 142 Potassium 4.5 Chloride 106 Carbon Dioxide 24.3 Anion Gap 12 BUN 8 L Creatinine 0.7 Estim Creat Clear Calc 133.2 eGFR > 60 BUN/Creatinine Ratio 11 L Glucose 94 Calculated Osmolality 281 Calcium 8.6 Corrected Calcium 9.2 Phosphorus 4.6 Magnesium 1.5 L Total Bilirubin 0.3 AST 56 H ALT 93 H Alkaline Phosphatase 158 H D Total Protein 6.0 Albumin 3.2 L Globulin 2.8 Albumin/Globulin Ratio 1.1 L CSF VDRL NON-REACTIVE CSF Enterovirus RNA Qual NOT DETECTED CSF West Nile IgG Ab <1.30 CSF West Nile IgM Ab <0.90 Enterovirus Source CSF Misc Test Result See Sep Rpt ABG Interpretation ABG results: 05/09/25 05/09/25 05/09/25 11:56 13:40 18:50 ABG pH 7.40 7.27 L D 7.28 L ABG pCO2 40 43 55 H D ABG pO2 131 H 53 L* D 70 L ABG HCO3 25 20 26 ABG O2 Saturation 99 H 81 L 92 ABG Base Excess 0 -7 L -2 05/10/25 05/11/25 05/12/25 00:14 05:06 01:18 ABG pH 7.35 7.33 L 7.39 ABG pCO2 42 D 54 H D 48 ABG pO2 103 D 93 94 ABG HCO3 23 28 H 29 H ABG O2 Saturation 99 H 98 98 ABG Base Excess -3 2 3 05/12/25 05/12/25 05/13/25 03:58 11:50 05:10 ABG pH 7.46 H 7.39 7.19 L* D ABG pCO2 41 48 60 H D ABG pO2 105 58 L* D 114 H D ABG HCO3 29 H 29 H 23 ABG O2 Saturation 99 H 90 L 98 ABG Base Excess 5 H 4 H -6 L Assessment & Plan A&P Narrative presumptive pseudomonas in ear and resp tree with improved cxr and viral findings on pcr testing at [facility] de[facility]. resp failure it is expected that abx will be given in this setting. may look to stop merrem on wed though Time Spent With Patient Time: Total time spent is greater than 50% in coordination of care (as documented) at patient's floor/unit and/or counseling patient:
[2025-05-16] MEDS: PHENobarbital Inj 130 MG, SODIUM CHLORIDE 0.9% FLUSH 12 ML IVP ×2 (09:54→22:28)
[2025-05-16] MEDS: levETIRAcetam INJ 100 MG/ML VIAL 5ML 800 MG IV ×2 (09:55→22:00)
[2025-05-16] MEDS: ENOXAPARIN SOD INJ 40 MG/0.4 ML SYRINGE SC (10:20)
[2025-05-16] MEDS: MIDAZOLAM INJ 1 MG/ML VIAL 2 ML 4 MG IVP (10:51)
--- NOTE | 2025-05-16 11:05 | ESPR_ITS ---
<Statement entered by Kamlesh Baer MD - 05/16/25 18:40> Patient seen and examined at bedside. I discussed and supervised with the internal combustion engine inspector physician who took care of this patient. I personally saw and examined the patient. I agree with most of the assessment and plan. Patient received ibuprofen and IV tylenol overnight due to fevers, tachycardia. WBC elevated from yesterday. Received CT scan head, Chest/Abd/Pelvis, which showed bilateral pneumonia, cystitis. BL UE doppler found LUE nonocclusive DVT, therapeutic lovenox initiated. Repeat blood cultures ordered, pending. Increased sxheduled zyprexa, added PRN phenobarbital. Remains on high dose propofol and fentanyl. Initated Miralax. Plan of care discussed with attending Dr. Armendariz. Kamlesh Baer MD PGY-2 Documentation for date of: 05/16/25 Subjective Subjective Interval history: 05/16/2025: Overnight, patient experienced intermittent spasmodic jerking episodes, lasting about 15-20 minutes at a time. During these episodes, the patient becomes tachycardic and febrile. Baclofen 10mg was administered, followed by a single dose of midazolam 2mg IV for agitation. Patient remains on fentanyl 100 mcg/hr and propofol 50 mcg/kg/min for sedation. Patient spiked a fever of 102.6?F, for which IV tylenol was given. A subsequent temperature of 102.4?F was treated with ibuprofen. The Hawkins catheter was replaced overnight. Urine output over the past 12 hours was approximately 850 mL. Patient has not had a bowel movement since 05/13, will add miralax. Due to persistent fevers, doxycycline 100 mg IV BID was initiated for gram- positive cocci coverage. Blood cultures will be repeated, and a right upper quadrant ultrasound has been ordered to evaluate for potential hepatobiliary source of infection. Liver enzymes are improved from yesterday. Planned Interventions: Initiate phenobarbital 130 mg IV every 6 hours and begin weaning off propofol. Increased olanzapine from 5 mg GT QHS to 5 mg TID. Perform bilateral upper extremity ultrasound to assess for DVT. Repeat UA, CXR, CT head and abd/pelvis. Check lipase levels. 05/15/2025: Overnight, the patient developed a fever of 101.8?F. PO acetaminophen was switched to IV formulation by the night team. Temperature improved to 99.5?F by morning. Urine output over the past 12 hours was approximately 620 cc. Liver enzymes continue to trend upward, will hold acetaminophen for now. Patient was weaned off midazolam infusion today. Plan is to begin tapering propofol next. Antipsychotic regimen was adjusted from quetiapine to olanzapine to minimize risk of QTc prolongation. Repeat chest X- ray showed improvement in bilateral pneumonia. Bronchoscopy was performed yesterday (05/14). Repeat procedure is being considered for 05/16. Increase in WBCs and fever likely from bronchoscopy. 05/14/2025: No acute events overnight. Stable on versed/ fentanyl and propofol. No vasopressor requirements. Patient underwent bronchoscopy, well tolerated. Gas exchange stable. PPeak remains in mid20s. Patient on minimal FiO2 and PEEP now. Good ventilator synchrony. Continues to have heavy drooling and output form upper airway. Minimal from ETT now. 05/13/2025: Patient increased FiO2 overnight to 100%. Difficulty managing secretions. Bleeding from nose and plugging. Agitated with maximal dose of precedex and benadryl pushes. Patient with low grade temp to 100.4F. Mild secretions from ETT, pink/ frothy. 05/12/2025: Patient weaned down on sedation. Tmax 102 degrees at 1600 hrs. 05/11. Patient developed mild hepatitis, likely response to medications, will monitor. Patient successfully weaned off of propofol and fentanyl, Precedex initiated. Patient extubated, placed on high flow. Continues to have high secretions, treated with chest PT, oral suctioning as needed, ipratropium breathing treatments scheduled. Patient notably agitated, treating with Benadryl as needed and Precedex drip. Will continue to try and decrease sedation while maintaining patent airway. Sputum culture grew thurman resistant Pseudomonas, meropenem initiated. Will continue Levaquin for now pending cultures. Ear cultures taken. Patient maintaining good urine output, will replete volume if patient exceeds greater than 2 L output. 05/11/2025: Overnight, the patient became increasingly agitated and was observed biting on the endotracheal tube. In response, propofol was increased from 40 mcg/kg/min to 45 mcg/kg/min, and fentanyl was increased from 200 mcg/hr to 250 mcg/hr. The plan is to attempt weaning the patient off sedation today, and work towards extubation. A lumbar puncture was performed, which showed 3 WBCs. Infection from meningitis is less likely, but culture results are pending for confirmation. Today, the patient has been experiencing a low-grade fever, with the highest recorded temperature being 100.4?F. After the Hawkins catheter was placed, the patient had 1700 cc of urine output over the past 12 hours. Followed up with Dr. Jacky Cuadra (ENT in [place]). Dr. Cuadra stated that there is nothing additional he could identify on the CT imaging that the radiologist has not already seen. And that if there was something it would likely be surgical and he does not perform surgeries. He recommended covering for Pseudomonas with clindamycin and Unasyn. The plan is to start levofloxacin for Pseudomonas coverage as well. Additionally, Dr. Cuadra suggested culturing the ear. 05/10/2025: Patient remained sedated with propofol and fentanyl throughout the night, maintaining adequate sedation levels. Around 2 AM, the propofol dose was reduced due to MAP in the 60s. 1L of LR was administered on top of the ongoing IV maintenance fluids at 100cc/hr. Following this, the MAP remained stable above 65. At 6:50 PM on 05/09, an ABG revealed a pH of 7.28, pCO2 of 55, and pO2 of 70, indicative of respiratory acidosis. Patient was given 5 grams of magnesium and 15 mg of albuterol over the course of an hour to promote bronchodilation. Magnesium also needed to be repleted. A repeat ABG showed normalization of the respiratory parameters. Patient's Hawkins catheter was removed and replaced with a QiVi catheter overnight per the patient's father?s request. However, the patient developed urinary retention. A bladder scan performed at 6 AM showed 295cc of retained urine, and a subsequent scan in the afternoon revealed 439cc. Primary team consulted ICU team. On 05/09, two rapid responses were initiated due to the patient?s escalating agitation and anxiety. Patient appeared to be in significant pain from his paraphimosis. The primary team consulted the ICU for further management, as the patient had already received diazepam, haldol, versed, and dilaudid earlier that morning, with inadequate relief. Additionally, there was concern over a decline in his pO2 levels. The initial ABG at 11:56 showed: pH 7.40, pCO2 40, pO2 131, HCO3 25. A repeat ABG at 13:40 revealed: pH 7.27, pCO2 43, pO2 53, HCO3 20. Upon evaluation by the ICU team, the patient was noted to be extremely agitated and wearing an oxygen mask, with audible gurgling sounds coming from the upper airway, raising concern for potential airway compromise. Given the risk of inadequate airway protection, the decision was made to transfer the patient to the ICU for intubation and further management. In the ICU, the patient was intubated. Urology, Dr. Vargas, was consulted earlier in the day. He was able to successfully perform a reduction of the paraphimosis. Telemetry Course: Patient was admitted to telemetry for further workup and management of sepsis of unknown source, with concern for meningitis. Empiric broad-spectrum antibiotic and antiviral therapy were started, consisting of ceftriaxone 2g IV twice daily, vancomycin (pharmacy to dose), ampicillin, and acyclovir. Neurology was consulted. CT of the orbit, sella, and inner ear was ordered given the patient?s history of acute mastoiditis, which showed severe bilateral chronic mastoiditis, bilateral otitis externa, bilateral otitis media, and bilateral cholesteatomas in the attics. CT head was also performed and was negative for acute hemorrhage, mass effect, or midline shift. Findings included prominent sphenoid, ethmoid, and maxillary antral sinusitis, bilateral chronic mastoiditis, bilateral otitis media, and opacification in the bilateral attics. For the patient?s seizures, his home medications of valproic acid and levetiracetam were restarted. Orders for midazolam and Haldol were placed as needed for breakthrough seizures and agitation. An ice pack was ordered for his paraphimosis. Infectious disease was also consulted. History of Present Illness: 24-year-old male with a past medical history significant for cerebral palsy, asthma, seizure disorder, chronic mastoiditis (previously treated with tympanostomy tube placement for recurrent otitis media, now removed), recurrent pneumonia, and chronic PEG tube dependence, presented to the ED on 05/08/2025 with a fever lasting over 24 hours. The patient also had a witnessed seizure episode lasting 5-10 seconds, characterized by tonic-clonic activity confined to the left side of the body. ED Course: -Initial vitals were: BP 122/84, HR 176, RR 26, T 105F, O2 sat 96% on room air. -Labs significant for: CBC showed a WBC of 16.3. CMP showed Na 148, K 5.2, Cl 107, bicarbonate 18.7, anion gap 22, creatinine 1.3 (baseline 0.7), lactic acid 3.2, alkaline phosphatase 120, LDH 352, total CK 1048, procalcitonin: 0.14. Urinalysis negative. Influenza A/B testing was negative. -Imaging included: EKG showed supraventricular tachycardia of HR [address] and T-wave abnormality. CXR showed no aspiration pneumonia but was noted to be of poor inspiratory effort. CT CAP w/o contrast seemed to show no gross infiltrates or other notable findings but was noted to be severely degraded by patient motion. -In the ED, patient was given acetaminophen 975 mg, ceftriaxone 1 gram IV, midazolam 2 mg IV x1, albuterol 2.5 mg, Zosyn 3.375 gram, 2 L NS fluid infusion, and 1 L LR fluid infusion. In the ED, the patient was agitated and pulled out his IV. Attempts at peripheral access were unsuccessful, and a right femoral central line was placed. Exam Vital Signs Temp Pulse Resp BP Pulse Ox O2 Del Method O2 Flow Rate 101.3 F H 110 H 16 120/83 98 Mechanical Ventilation 40 05/16/25 08:00 05/16/25 08:00 05/16/25 08:00 05/16/25 08:00 05/16/25 08:00 05/16/25 08:00 05/13/25 02:30 FiO2 35 05/16/25 08:00 Narrative Exam Physical Exam General: sedated and intubated, nonverbal at baseline, not in acute distress. Skin: Rash near buttock area. Bruising right upper extremity. Head: Normocephalic, atraumatic. Eyes: PERRL. Anicteric. Bilateral lateral eye scleral hemorrhage. Mouth/Throat: Poor dentition. Oral mucosa moist. No obvious lesions in oropharynx. Cough reflex intact. ETT in place. Cardiovascular: Regular rate and rhythm, no murmur. Respiratory: Rhonchi to auscultation in bilateral lung thompson (right more than left). Gastrointestinal: PEG tube in place. Soft, non-distended, no guarding or rebound tenderness. Genitourinary: Decrease swelling of glans penis. Hawkins in place. Extremities: Contracted and swollen hands. No edema, cyanosis, mottling, clubbing. 2+ radial pulse bilaterally, 2+ posterior tibial pulse bilaterally. Objective Labs 05/30/25 04:37 05/30/25 04:37 Labs: Laboratory Results - last 24 hr 05/10/25 05/16/25 05/16/25 22:45 04:46 07:00 WBC 16.7 H D RBC 3.10 L Hgb 8.7 L Hct 27.7 L MCV 89 MCH 28.1 MCHC 31.4 RDW Std Deviation 48.2 H Plt Count 320 D Neut % (Auto) 53 Lymph % (Auto) 24 [place] % (Auto) 14 H Eos % (Auto) 3 Baso % (Auto) 1 Neut # (Auto) 8.8 H Lymph # (Auto) 4.0 [place] # (Auto) 2.3 H Eos # (Auto) 0.5 Baso # (Auto) 0.1 Immature Gran # (Auto) 0.92 H Absolute Nucleated RBC 0.03 H Immature Gran % 6 H Nucleated RBC % 0 Sodium 142 Potassium 4.5 Chloride 106 Carbon Dioxide 24.3 Anion Gap 12 BUN 8 L Creatinine 0.7 Estim Creat Clear Calc 133.2 eGFR > 60 BUN/Creatinine Ratio 11 L Glucose 94 Calculated Osmolality 281 Calcium 8.6 Corrected Calcium 9.2 Phosphorus 4.6 Magnesium 1.5 L Total Bilirubin 0.3 AST 56 H ALT 93 H Alkaline Phosphatase 158 H D Total Protein 6.0 Albumin 3.2 L Globulin 2.8 Albumin/Globulin Ratio 1.1 L CSF VDRL NON-REACTIVE CSF Enterovirus RNA Qual NOT DETECTED CSF West Nile IgG Ab <1.30 CSF West Nile IgM Ab <0.90 Enterovirus Source CSF Misc Test Result See Sep Rpt ABG Interpretation ABG results: 05/09/25 05/09/25 05/09/25 11:56 13:40 18:50 ABG pH 7.40 7.27 L D 7.28 L ABG pCO2 40 43 55 H D ABG pO2 131 H 53 L* D 70 L ABG HCO3 25 20 26 ABG O2 Saturation 99 H 81 L 92 ABG Base Excess 0 -7 L -2 05/10/25 05/11/25 05/12/25 00:14 05:06 01:18 ABG pH 7.35 7.33 L 7.39 ABG pCO2 42 D 54 H D 48 ABG pO2 103 D 93 94 ABG HCO3 23 28 H 29 H ABG O2 Saturation 99 H 98 98 ABG Base Excess -3 2 3 05/12/25 05/12/25 05/13/25 03:58 11:50 05:10 ABG pH 7.46 H 7.39 7.19 L* D ABG pCO2 41 48 60 H D ABG pO2 105 58 L* D 114 H D ABG HCO3 29 H 29 H 23 ABG O2 Saturation 99 H 90 L 98 ABG Base Excess 5 H 4 H -6 L Quality Measures Quality Measures VTE prophylaxis (SCDs) and sepsis Current suspected stage: sepsis Possible source: pulmonary Blood cultures ordered: yes Antibiotic ordered: Yes Assessment & Plan Assessment Current Active Medications: Generic Name Dose Route Start Last Admin Trade Name Freq PRN Reason Stop Dose Admin Acetaminophen 650 mg 05/14/25 05:13 05/14/25 18:15 Acetaminophen 325 Mg Tablet PO 06/13/25 05:12 650 mg On Hold: 05/14/25 23:01 Q6HR PRN Administration Fever >100.4 Albuterol/Ipratropium 3 ml 05/09/25 18:19 05/12/25 03:42 Albuterol/Ipratropium (Duoneb) Rt Racquel 3 Ml Nebu INH 06/08/25 18:18 3 ml Q2HR PRN Administration SHORTNESS OF BREATH OR WHEEZE Baclofen 10 mg 05/16/25 00:26 05/16/25 01:25 Baclofen 10 Mg Tablet PO 06/15/25 00:25 10 mg TID PRN Administration Spasms Phenobarbital Sodium 130 mg/ 0 mg 05/16/25 09:10 Sodium Chloride 12 ml IVP 05/30/25 09:09 Q6H PRN AGITATION Enoxaparin Sodium 40 mg 05/16/25 09:00 05/16/25 10:20 Enoxaparin Sod Inj 40 Mg/0.4 Ml Syringe SC 05/30/25 08:59 40 mg QDAY KYA Administration Protocol Valproic Acid 187.5 mg/ Sodium 51.875 mls @ 51.875 mls/hr 05/09/25 18:00 05/16/25 06:35 Chloride IV 06/07/25 17:59 Infused Q6HR KYA Infusion Protocol Midazolam HCl 100 mg in 100 mls @ 1 mls/hr 05/11/25 17:25 05/15/25 17:00 Versed Pf Inj In Ns Premix IV 05/16/25 17:24 0 mg/hr .Q24H PRN 0 mls/hr PER PROTOCOL Titration Protocol 1 MG/HR Meropenem 1,000 mg/ Sodium 50 mls @ 100 mls/hr 05/12/25 14:00 05/16/25 06:04 Chloride IV 05/19/25 13:59 Infused Q8HR KYA Infusion Propofol 1,000 mg in 100 mls @ 2.103 mls/hr 05/13/25 04:16 05/16/25 07:00 Diprivan Ivpb IV 06/12/25 04:15 50 mcg/kg/min .Q24H PRN 21.03 mls/hr PER PROTOCOL Administration Protocol 5 MCG/KG/MIN Fentanyl Citrate 2,500 mcg in 250 mls @ 2.5 mls/hr 05/13/25 04:17 05/16/25 07:00 Sublimaze Inj 2,500 Mcg/250 Ml Bag IV 05/18/25 04:16 300 mcg/hr .Q24H PRN 30 mls/hr PER PROTOCOL Titration Protocol 25 MCG/HR Doxycycline Hyclate 100 mg/ 100 mls @ 100 mls/hr 05/16/25 00:30 05/16/25 02:25 Sodium Chloride IV 05/23/25 00:29 Infused BID KYA Infusion Ipratropium Mears 0.5 mg 05/12/25 12:00 05/16/25 06:21 Ipratropium Rt 0.5 Mg/ 2.5 Ml Nebu INH 06/11/25 11:59 0.5 mg Q6HR KYA Administration Levetiracetam 800 mg 05/08/25 21:00 05/16/25 09:55 Levetiracetam Inj 100 Mg/Ml Vial 5ml IV 06/07/25 20:59 800 mg BID KYA Administration Ofloxacin 5 drop 05/09/25 10:15 05/15/25 20:50 Ofloxacin Op Racquel 0.3% 5 Ml Btl BOTH EARS 05/18/25 10:14 5 drops BID KYA Administration Olanzapine 5 mg 05/16/25 14:00 Olanzapine 5 Mg Tablet GT 06/15/25 13:59 TID KYA Ondansetron HCl 4 mg 05/08/25 11:36 Ondansetron Inj 2 Mg/Ml Inj 2 Ml IVP 06/07/25 11:35 Q6HR PRN NAUSEA OR VOMITING Protocol Pantoprazole Sodium 40 mg 05/12/25 11:25 05/16/25 09:54 Pantoprazole Inj 40 Mg Vial IVP 06/11/25 11:24 40 mg QDAY KYA Administration Pharmacy Consult 1 each 05/08/25 16:12 Pharmacy To Consult Patient XX 06/07/25 16:11 PRN PRN CONSULT Polyethylene Glycol 17 gm 05/16/25 09:15 Polyethylene Glycol 17 Gm Packet PO 06/15/25 09:14 QDAY KYA Sodium Chloride 3 ml 05/12/25 09:33 Sodium Chloride Rt Racquel 0.9% 3 Ml Nebu INH 06/11/25 09:32 PRN PRN SOLN Plan 24-year-old male with cerebral palsy, asthma, seizure disorder, chronic mastoiditis, recurrent pneumonia, and chronic PEG tube dependence presented with fever and seizure, was admitted for sepsis workup, and later transferred to the ICU for intubation due to concerns about airway protection. Neurology #Agitated delerium Patient was extremely agitated before ICU admission, likely due to pain from paraphimosis. Patient initially sedated with propofol and fentanyl, titrated to Precedex with Benadryl as needed. Diagnostic Test: - 05/10 AM: RASS was -4 : no response to voice, but movement to physical stimulation. - 05/11 AM: RASS was -4. - 05/12 AM: Patient active but not opening eyes, mobile, appears to be in distress. - 05/13 AM: Intermittently agitated but sedated with RASS -3. - 05/15 AM: RASS was -4. - 05/16 AM: RASS was +1: anxious, apprehensive but movements not aggressive or vigorous. Treatment Review (completed: - Versad 5mg/h was tapered off on 05/15. Treatment Plan: - Propofol 50 mcg/kg/min and fentanyl 100 mcg, taper as tolerated. - Changed Olanzapine 5mg GT nightly to three times daily. - CK cleared and TG 290 on 05/14. Repeat TG levels 05/17. - Started Phenobarbital 130 mg IV Q6HR PRN to help with agitation and wean off propofol. #Breakthrough tonic clonic seizure #History of seizures #Cerebral palsy DDx: likely secondary to sepsis vs electrolyte imbalances vs medication non- compliance or inadequate medication dosing vs hypoglycemia vs dehydration. Diagnosis: - Temperature of 105F on admission. - Sodium 148 and potassium 5.2 on admission. - EEG unremarkable Treatment Plan: - Continue valproic acid 187.5 mg Q6H. - Continue levetiracetam 800mg BID. - Adjust seizure medications if breakthrough seizures persist. - Seizure precautions. - Aspiration precautions. - Repeat CBC, electrolytes, renal function, and liver function tests to monitor for any metabolic derangements contributing to seizures. Cardiovascular #no active problems Respiratory #Failed extubation 05/12 #Acute hypoxic respiratory failure Diagnostic Test: - ABG 05/10 at 00:14: pH 7.35, pCO2 41, pO2 103, HCO3 23. - ABG 05/11 at 05:06: pH 7.33, pCO2 54, pO2 93, HCO3 28. - CXR 05/11: Mild bilateral perihilar pneumonia. To assess for ventilator associated pneumonia. Not much change from 05/09 CXR. - Patient extubated to [facility] 05/12, chest film with centro-bronchovascular congestion and multifocal pneumonia. - Reintubated overnight 05/13- VC/AC PPeak 20 PEEP 5 FiO2 40% - Patient underwent bronchoscopy on 05/14 for secretions, well tolerated. - Pseudomonas from ETT secretions previously (05/09). - CXR 05/15: improvement in bilateral pneumonia. - CXR 05/16: worsening diffuse severe left lung pneumonia - 05/16 MV settings: VT 400, RR 14, PEEP 6, FiO2 35, Ppeak 17.3-21.6, Pplateau 13.6. Treatment Plan: - Bronchoscopy culture pending. - Chest physiotherapy BID. - Ipratropium 0.5 mg every 6 hours. - Continue with mechanical ventilation. #Bronchospasm #History of asthma Diagnostic Test: - Although the patient has a history of asthma, the bronchospasm is most likely from the irritant effect of blood in the airway. A small amount of blood, which was likely from dryness of the nasal mucosa, was suctioned out during intubation. Treatment Plan: - Magnesium for bronchodilator effect as needed. - Albuterol as needed. GI, , F/E/N #Acute urinary retention (resolved) Treatment Plan - Maintain hawkins catheter. Monitor UOP. - Monitor urine output, replace fluid if needed. - Hawkins changed and replaced on 05/16. #Paraphimosis (resolved) #Balanitis (resolved) Diagnostic Test: - Edema and tenderness of the glans penis resolved - Swelling of the distal retracted foreskin. - Constricting band of tissue proximal to the head of the penis at the coronal sulcus. - Hawkins was removed on 05/09 and transitioned to Oivi external urinary catheter. Discussed with family about the need to reinsert hawkins due to the patient's acute urinary retention. Family were in agreement with this plan. Hawkins was reinserted on 05/10 due to urinary retention. - S/p reduction of the paraphimosis by Dr. Vargas on 05/09. Treatment Plan: - Control patient's pain with sedation. - Monitor urine output. - Remove hawkins when appropriate. #Chronic PEG tube dependence Treatment Plan: - Jevity 1.5 at 40 ml/hr x 24 hrs via PEG tube by pump (goal). If no IV fluids, water flushes of 35 ml/hr. - ProStat 30ml BID via PEG tube. - Appreciate software database architect recommendations. - Triglyceride level 05/14: 290. Repeat every 72 hours while on propofol. - Next triglyceride level check on 05/17. - Last bowel movement 05/13, added miralax. #Hepatitis (downtrending) DDx: muscle injury vs hemolytic anemia vs myocarditis vs medication induced - Muscle injury/rhabdomyolysis - supported by rising CK and normal ALT. - Hemolytic anemia - possible source of AST from RBC breakdown. - Myocarditis - less likely given normal troponin. - Patient received multiple medications that could potentially cause hepatotoxicity in ICU. -Initial resolving, WNL LFTs 05/11, slight increase 05/12 Diagnostic Test: - AST 103 --> 199 --> 56 - ALT 100 --> 152 --> 93 - ALP 152 --> 191 --> 158 - CK 1048 --> 3743 --> 1654->338 - LDH 352 --> 332. - Troponin <0.002. - Gallbladder ultrasound 05/16: Normal gallbladder, no gallstones. Fatty infiltration throughout the liver. - Lipase 05/16: 41 wnl. Treatment Plan: - Continue daily LFTs. - Avoid acetaminophen unless fever exceeds 101.0?F - Meropenem likely also contributing since it is hepatotoxic. Will continue to monitor. - Will reassess if transaminases continue to rise or clinical status changes. #Hypoalbuminemia (low, stable) DDx: acute hepatitis vs nephrotic syndrome vs sepsis vs malnutrition vs diluational. Diagnostic Test: - UA had urine proteins 1+. - Albumin 4.9 -->3.3 -->2.8 --> 3.2. - Hgb and WBC also decreased with albumin, likely diluational. Treatment Plan: - Monitor LFTs, INR, and bilirubin. - Maintain on PEG tube feeds per software database architect recommendations. Renal #Acute kidney injury (resolved) DDx: hypotension, dehydration, or vasodilation from sepsis. Diagnositc Test: - Creatinine 1.3 (baseline: 0.7)--> 1.2 --> 1.0-->0.9 Treatment Plan: - Continue with free water flushes. - Daily renal panel to trend BUN, Cr, and electrolytes. - Avoid nephrotoxins. - Renally dose meds as appropriate. - Strict I&Os, monitor urine output closely. - Monitor for signs of volume overload or uremic symptoms. #Anion Gap Metabolic Acidosis (resolved) #Lactic acidosis (resolved) DDx: seizures vs sepsis vs acute kidney injury vs hypoperfusion. Likely from seizures as patient has no signs of systemic hypoperfusion such as skin mottling, decreased cap refills. Diagnostic Test: - Admission anion gap 22, lactic acid 16.0, bicarbonate 18.7. Treatment Plan: - Recheck LA as needed. #Rhabdomyolysis (resolving) DDx: seizures vs hyperthermia vs infectious myositis. Diagnostic Test: - CK 1048 --> 3743 --> 1654 --> 338. - Witnessed seizure episode lasting 5-10 seconds, characterized by tonic-clonic activity prior to admission. Treatment Plan: - Continue free water flushes. - Monitor urine output. - Correct electrolyte abnormalities. - Control seizures with valproic acid and levetiracetam. - Acetaminophen as needed for fevers. - Monitor renal panel. Heme #Leukocytosis (uptrending) DDx: likely due to bronchoscopy on 05/14 vs infection of unknown source. Diagnostic Test: - Continue to have fever spikes as high as 102.6?F. Treatment Plan: - Continue Meropenem 1 g IV every 8 hour (started 05/12). #Acute nonocclusive thrombus in the left brachial vein Diagnostic Test: - Venous doppler study of upper extremities 05/16: Normal right upper extremity deep venous system. Positive for nonocclusive thrombus in the left brachial vein. Treatment Plan: - Start heparin ggt. Switched from Lovenox to heparin due to heparin?s shorter half-life, which allows for more rapid cessation in the event of bleeding.s a shorter half life and can be stopped if bleeding occurs. #Normocytic Anemia #Hematoma on left forearm DDx: Anemia of Inflammation vs dilutional anemia vs drug-induced anemia. Likely dilutional anemia since patient had normal hemoglobin on admission and from IV fluids per sepsis protocol. No signs of bleeding. Diagnostic Test: - Hemoglobin 14.0 -->8.2 over the week Treatment Plan: - Monitor H&H. - Type and screen. - Transfusing for Hgb <7 or symptomatic. #Thrombocytopenia (resolved) DDx: Dilutional versus consumption versus increased destruction due to sepsis Initial decrease is likely due to dilutional in setting of IV fluids, however his WBC and hemoglobin have leveled off platelets have down trended Diagnostic test: - Platelets: 209 --> 65-->141. Treatment plan: - Monitor daily labs - Avoid excessive oral tracheal suctioning in setting of previous bleed and thrombocytopenia Endo #no active problems ID #Sepsis #Bilateral chronic mastoiditis #Sinusitis #Bilateral otitis media #Bilateral otitis externa DDx: meningitis vs acute on chronic mastoiditis vs acute febrile illness. Diagnostic Test: - History of chronic mastoiditis. - CT Head 05/08: prominent sphenoid ethmoid maxillary antral sinusitis, bilateral chronic mastoiditis, bilateral otitis media. - CT Orbit Sella Inner 05/08: severe bilateral chronic mastoiditis, bilateral otitis externa and otitis media, bilateral cholesteatomas in the attics. - Met SIRS criteria on admission: T 105F, HR 176, RR 26, PaCO2 26, WBC 16.3. - Lactic acid 16.0 on admission. - UA negative. - Blood culture 05/08: negative. - Lumbar puncture: clear, WBC 3, glucose 70, total protein 25. - CSF Streptococcus pneumonia Ag negative. - CSF Streptococcus B antigen negative. - CSF Neisseria meningitis B/E.coli K1 negative. - CSF Neisseria meningitis ACY/W135 Ag negative. - CSF haemophilus influenzae B Ag negative. - CSF enterovirus RNA negative. - CSF West Nile virus IgG antibody negative. - CSF West Nile virus IgM antibody negative. - MRSA screen negative. - Sputum culture 1+ thurman resistance Pseudomonas. - Bilateral ear cultures E coli ESBL. - Repeat blood cultures (05/11) negative. - Respiratory viral panel (05/10): rhinovirus/enterovirus and human metapneumovirus detected. Treatment Review (completed) - Discontinue IV rocephin 2 gm q12HR [05/08-05/11]. - Discontinue IV vancomycin dosed by pharmacy [05/08-05/11] since MRSA screen is negative. - Discontinue IV acyclovir 700 mg [05/08-05/11] since LP negative. - Discontinued IV ampicillin 2 gm q4HR [05/08-05/09] as patient not in the age group at risk for Listeria infection. - Fluids: 30mL/kg -- 2 L NS fluid infusion and 1 L LR fluid infusion was given in the ED. - Femoral central line removed, replaced with peripheral access. - Discontinued IV Levaquin 750 mg [05/11-05/12]. Treatment Plan: - Topical oxofloxacin. - Meropenem 1 g IV every 8 hour (started 05/12). #Fever of unknown origin Diagnostic Test: - CTAP 05/16: extensive bilateral pneumonia, cystitis pattern, cholelithiasis. - CXR 05/16: worsening diffuse severe left lung pneumonia. - Head CT 05/16: unremarkable. - Venous doppler ultrasound 05/16: Normal right upper extremity deep venous system. Positive for nonocclusive thrombus in the left brachial vein. Treatment Plan: - Repeat blood culture. - Started doxycycline 100 mg IV twice daily for GPC coverage. - Start heparin ggt for UE DVT. Integumentary #Maculopapular rash to the buttocks DDx: contact dermatitis vs allergic dermatitis Treatment Plan - Patient no longer has diaper on as hawkins is in place. Anticipate rash to improve. Health Maintenance DVT prophylaxis: Heparin ggt GI prophylaxis: Protonix IV Diet: Jevity Hawkins: present Lines: Peripherals Drips: Propofol, fentanyl Vent: MV, PPlat <30 and TV < 8 ml/kg IBW CODE STATUS: FULL CODE Patient plan of care was discussed with the senior resident, Dr. Baer, and attending physician, Dr. Armendariz. Diaz Coppola DO Internal Medicine PGY-1 Attending Provider Attestation/Addendum Patient seen and examined with above resident, Diaz Coppola DO. I agree with the findings, assessment, and plan of care as document except for any differences below. Patient with continued fevers and elevation in WBC. Receiving ibuprofen and acetaminophen overnight. Unclear etiology and must exclude presence of close space infection with CT imaging of chest, abdomen, and pelvis being done today. Given previous etiologies of infection, patient has been upgraded to meropenem which has yet to show effect. Help with weaning from mechanical ventilation due to high requirements for propofol and fentanyl we have scheduled Zyprexa and phenobarbital. Noninfectious etiologies have also been considered including drug fever, propofol infusion syndrome, and serotonin syndrome. These all seem less likely given his medication and are typically diagnosis of exclusion. Will also assess for presence of sinusitis or other cerebral injury. Upper extremity DVT did not find nonocclusive DVT in the left upper extremity warranting initiation of anticoagulation. This may be the etiology of the fever as well. Will continue to update family at bedside as we aim to wean patient prior to need for tracheostomy though this may ultimately be required given his failure to be weaned once already. Patient is tolerating tube feeds but has yet to have had a bowel movement and will start on MiraLAX. Total critical care time: I personally spent 40 minutes for review of physiologic parameters, directing plan of care throughout the day, coordination of care with other subspecialist, and counseling patient's family at bedside. This is exclusive of time spent teaching of staff performing separate billable procedures. Patient remains at significant risk for further morbidity and mortality warranting close monitoring and care only available in the ICU. Patient required critical care services for acute encephalopathy/metabolic encephalopathy, upper extremity DVT/provoked, acute hypoxic respiratory failure, otitis/mastoiditis/sinusitis.
[2025-05-16 11:49] LABS: Lipase 41 U/L (12-53)
[2025-05-16] MEDS: POLYETHYLENE GLYCOL 17 GM PACKET PO (12:17)
[2025-05-16] MEDS: OFLOXACIN OP SOL 0.3% 5 ML BTL 5 DROP BOTH EARS ×2 (12:17→22:00)
[2025-05-16 14:45] LABS: Collection Type, Urine Catheter; Squamous Epithelial Cell,Urine 0 /hpf (0-5)
[2025-05-16 15:03] LABS: Bilirubin,Urine Negative (Negative); Blood,Urine 3+ (Negative); Clarity,Urine Turbid (Clear/Hazy); Color,Urine Lt-Yellow (Lt Yel-Yel); Culture Indicated,Urine Not Indicated; Glucose, Urine Negative (Negative); Ketones,Urine Trace (Negative); Leukocyte Esterase,Urine Negative (Negative); Nitrite,Urine Negative (Negative); PH,Urine 6.5 (5.0-7.0); Protein,Urine Trace (Neg - Trace); RBC,Urine 1595 /hpf (0-3); Specific Gravity,Urine 1.012 (1.001-1.035); Urobilinogen,Urine Negative mg/dL (0.0-1.0); WBC,Urine 5 /hpf (0-5)
--- NOTE | 2025-05-16 16:01 | PC.SS ---
Update: Patient remains intubated/sedated. Tube feedings in place. Patient receiving IV antibiotics. Osborne catheter in place. Low grade fever present. On soft restraints.
--- NOTE | 2025-05-16 16:59 | PD.RESPRO ---
Documentation for date of: 05/16/25 Subjective Subjective Interval history: Patient examined at bedside. Remains intubated on sedation as he continues to exhibit intermittent hyperkinetic movements. Vitals reviewed and noted that patient continues to spike fever overnight. Also tachycardic with heart rate of 130. LFTs are downtrending. Continue Keppra and Depakote as management for seizures. In past, outpatient therapy for dyskinetic movements were discontinued due to family request. They have refused treatment. Feel that symptoms would worsen. Exam Vital Signs Temp Pulse Resp BP Pulse Ox O2 Del Method O2 Flow Rate 99.6 F 97 18 122/81 100 Mechanical Ventilation 35 05/16/25 16:00 05/16/25 16:00 05/16/25 16:00 05/16/25 16:00 05/16/25 16:00 05/16/25 16:00 05/16/25 12:00 FiO2 35 05/16/25 16:00 Narrative Exam General: sedated, intubated, on MV HEENT: NCAT, No JVD noted. Mucosa moist. pinpoint Pupils are equal and reactive to light bilaterally Cardiovascular: Normal S1 and S2. Regular rate and rhythm. Respiratory: equal breath sounds, rhonchi Abdomen: Soft, nontender, not distended, normal bowel sounds. PEG tube in place : Paraphimosis of penis. Osborne inserted with red tinged urine Musculoskeletal: no pitting edema, muscle atrophy, Feet show fixed contractures with inward curvature. Spastic Neuro:deferred Objective Labs 05/21/25 04:30 05/21/25 04:30 Labs: Laboratory Results - last 24 hr 05/10/25 05/16/25 05/16/25 22:45 04:46 07:00 WBC 16.7 H D RBC 3.10 L Hgb 8.7 L Hct 27.7 L MCV 89 MCH 28.1 MCHC 31.4 RDW Std Deviation 48.2 H Plt Count 320 D Neut % (Auto) 53 Lymph % (Auto) 24 Boyd % (Auto) 14 H Eos % (Auto) 3 Baso % (Auto) 1 Neut # (Auto) 8.8 H Lymph # (Auto) 4.0 Boyd # (Auto) 2.3 H Eos # (Auto) 0.5 Baso # (Auto) 0.1 Immature Gran # (Auto) 0.92 H Absolute Nucleated RBC 0.03 H Immature Gran % 6 H Nucleated RBC % 0 Sodium 142 Potassium 4.5 Chloride 106 Carbon Dioxide 24.3 Anion Gap 12 BUN 8 L Creatinine 0.7 Estim Creat Clear Calc 133.2 eGFR > 60 BUN/Creatinine Ratio 11 L Glucose 94 Calculated Osmolality 281 Calcium 8.6 Corrected Calcium 9.2 Phosphorus 4.6 Magnesium 1.5 L Total Bilirubin 0.3 AST 56 H ALT 93 H Alkaline Phosphatase 158 H D Total Protein 6.0 Albumin 3.2 L Globulin 2.8 Albumin/Globulin Ratio 1.1 L Lipase 41 Ur Collection Type Urine Color Urine Clarity Urine pH Ur Specific [place] Urine Protein Urine Glucose (UA) Urine Ketones Urine Blood Urine Nitrite Urine Bilirubin Urine Urobilinogen (Auto) Ur Leukocyte Esterase Urine RBC Urine WBC Ur Squamous Epith Cells Urine Bacteria Ur Culture Indicated? CSF VDRL NON-REACTIVE CSF Enterovirus RNA Qual NOT DETECTED CSF West Nile IgG Ab <1.30 CSF West Nile IgM Ab <0.90 Enterovirus Source CSF Misc Test Result See Mar Rpt 05/16/25 14:20 WBC RBC Hgb Hct MCV MCH MCHC RDW Std Deviation Plt Count Neut % (Auto) Lymph % (Auto) Boyd % (Auto) Eos % (Auto) Baso % (Auto) Neut # (Auto) Lymph # (Auto) Boyd # (Auto) Eos # (Auto) Baso # (Auto) Immature Gran # (Auto) Absolute Nucleated RBC Immature Gran % Nucleated RBC % Sodium Potassium Chloride Carbon Dioxide Anion Gap BUN Creatinine Estim Creat Clear Calc eGFR BUN/Creatinine Ratio Glucose Calculated Osmolality Calcium Corrected Calcium Phosphorus Magnesium Total Bilirubin AST ALT Alkaline Phosphatase Total Protein Albumin Globulin Albumin/Globulin Ratio Lipase Ur Collection Type Catheter Urine Color Lt-Yellow Urine Clarity Turbid A Urine pH 6.5 Ur Specific [place] 1.012 Urine Protein Trace Urine Glucose (UA) Negative Urine Ketones Trace Urine Blood 3+ A Urine Nitrite Negative Urine Bilirubin Negative Urine Urobilinogen (Auto) Negative Ur Leukocyte Esterase Negative Urine RBC 1595 H Urine WBC 5 Ur Squamous Epith Cells 0 Urine Bacteria None Ur Culture Indicated? Not Indicated CSF VDRL CSF Enterovirus RNA Qual CSF West Nile IgG Ab CSF West Nile IgM Ab Enterovirus Source Misc Test Result ABG Interpretation ABG results: 05/09/25 05/09/25 05/09/25 11:56 13:40 18:50 ABG pH 7.40 7.27 L D 7.28 L ABG pCO2 40 43 55 H D ABG pO2 131 H 53 L* D 70 L ABG HCO3 25 20 26 ABG O2 Saturation 99 H 81 L 92 ABG Base Excess 0 -7 L -2 05/10/25 05/11/25 05/12/25 00:14 05:06 01:18 ABG pH 7.35 7.33 L 7.39 ABG pCO2 42 D 54 H D 48 ABG pO2 103 D 93 94 ABG HCO3 23 28 H 29 H ABG O2 Saturation 99 H 98 98 ABG Base Excess -3 2 3 05/12/25 05/12/25 05/13/25 03:58 11:50 05:10 ABG pH 7.46 H 7.39 7.19 L* D ABG pCO2 41 48 60 H D ABG pO2 105 58 L* D 114 H D ABG HCO3 29 H 29 H 23 ABG O2 Saturation 99 H 90 L 98 ABG Base Excess 5 H 4 H -6 L Quality Measures Quality Measures VTE prophylaxis (SCDs) and sepsis Current suspected stage: sepsis Possible source: pulmonary Blood cultures ordered: yes Antibiotic ordered: Yes Assessment & Plan Assessment Current Active Medications: Generic Name Dose Route Start Last Admin Trade Name Freq PRN Reason Stop Dose Admin Acetaminophen 650 mg 05/14/25 05:13 05/14/25 18:15 Acetaminophen 325 Mg Tablet PO 06/13/25 05:12 650 mg On Hold: 05/14/25 23:01 Q6HR PRN Administration Fever >100.4 Albuterol/Ipratropium 3 ml 05/09/25 18:19 05/12/25 03:42 Albuterol/Ipratropium (Duoneb) Rt Racquel 3 Ml Nebu INH 06/08/25 18:18 3 ml Q2HR PRN Administration SHORTNESS OF BREATH OR WHEEZE Baclofen 10 mg 05/16/25 00:26 05/16/25 01:25 Baclofen 10 Mg Tablet PO 06/15/25 00:25 10 mg TID PRN Administration Spasms Phenobarbital Sodium 130 mg/ 0 mg 05/16/25 09:10 Sodium Chloride 12 ml IVP 05/30/25 09:09 Q6H PRN AGITATION Enoxaparin Sodium 80 mg 05/16/25 21:00 Enoxaparin Sod Inj 80 Mg/0.8 Ml Syringe SC 05/30/25 20:59 BID KYA Protocol Valproic Acid 187.5 mg/ Sodium 51.875 mls @ 51.875 mls/hr 05/09/25 18:00 05/16/25 12:16 Chloride IV 06/07/25 17:59 51.875 mls/hr Q6HR KYA Administration Protocol Midazolam HCl 100 mg in 100 mls @ 1 mls/hr 05/11/25 17:25 05/15/25 17:00 Versed Pf Inj In Ns Premix IV 05/16/25 17:24 0 mg/hr .Q24H PRN 0 mls/hr PER PROTOCOL Titration Protocol 1 MG/HR Meropenem 1,000 mg/ Sodium 50 mls @ 100 mls/hr 05/12/25 14:00 05/16/25 14:20 Chloride IV 05/19/25 13:59 100 mls/hr Q8HR KYA Administration Propofol 1,000 mg in 100 mls @ 2.103 mls/hr 05/13/25 04:16 05/16/25 16:42 Diprivan Ivpb IV 06/12/25 04:15 50 mcg/kg/min .Q24H PRN 21.03 mls/hr PER PROTOCOL Administration Protocol 5 MCG/KG/MIN Fentanyl Citrate 2,500 mcg in 250 mls @ 2.5 mls/hr 05/13/25 04:17 05/16/25 14:06 Sublimaze Inj 2,500 Mcg/250 Ml Bag IV 05/18/25 04:16 300 mcg/hr .Q24H PRN 30 mls/hr PER PROTOCOL Administration Protocol 25 MCG/HR Doxycycline Hyclate 100 mg/ 100 mls @ 100 mls/hr 05/16/25 00:30 05/16/25 12:14 Sodium Chloride IV 05/23/25 00:29 100 mls/hr BID KYA Administration Ipratropium [place] 0.5 mg 05/12/25 12:00 05/16/25 13:21 Ipratropium Rt 0.5 Mg/ 2.5 Ml Nebu INH 06/11/25 11:59 0.5 mg Q6HR KYA Administration Levetiracetam 800 mg 05/08/25 21:00 05/16/25 09:55 Levetiracetam Inj 100 Mg/Ml Vial 5ml IV 06/07/25 20:59 800 mg BID KYA Administration Ofloxacin 5 drop 05/09/25 10:15 05/16/25 12:17 Ofloxacin Op Racquel 0.3% 5 Ml Btl BOTH EARS 05/18/25 10:14 5 drops BID KYA Administration Olanzapine 5 mg 05/16/25 14:00 05/16/25 14:19 Olanzapine 5 Mg Tablet GT 06/15/25 13:59 5 mg TID KYA Administration Ondansetron HCl 4 mg 05/08/25 11:36 Ondansetron Inj 2 Mg/Ml Inj 2 Ml IVP 06/07/25 11:35 Q6HR PRN NAUSEA OR VOMITING Protocol Pantoprazole Sodium 40 mg 05/12/25 11:25 05/16/25 09:54 Pantoprazole Inj 40 Mg Vial IVP 06/11/25 11:24 40 mg QDAY KYA Administration Pharmacy Consult 1 each 05/08/25 16:12 Pharmacy To Consult Patient XX 06/07/25 16:11 PRN PRN CONSULT Polyethylene Glycol 17 gm 05/16/25 09:15 05/16/25 12:17 Polyethylene Glycol 17 Gm Packet PO 06/15/25 09:14 17 gm QDAY KYA Administration Sodium Chloride 3 ml 05/12/25 09:33 Sodium Chloride Rt Racquel 0.9% 3 Ml Nebu INH 06/11/25 09:32 PRN PRN SOLN Plan David Baltazar is 24 yr male with PMH of chronic mastoiditis (previously had tympanostomy tube placed for recurrent otitis media, now removed), seizure disorder, recurrent pneumonia, cerebral palsy, chronic PEG tube, and asthma who was brought into ED on 05/08/25 for ongoing fever of over 24 hours and reported episode of witnessed seizure by ED. Patient was septic. Neurology was consulted to for LP to rule out meningitis. #Mastoiditis #rule out Meningitis #Tonic clonic seizure #Hx seizures #Cerebral palsy On admission he was noted to have fever of 105, leukocytosis 16, tachycardia 176, and tachypnic 26. CT orbit sella showed b/L otitis externa and media. Reduced mastoid aeration on the left, b/L chlestatomas. He was started on vancomycin, ceftriaxone 2g BID, ampicillin 2g q4hr, and acyclovir. EEG was negative for seizure activity. LP culture was negative: clear, WBC 3, glucose 70, total protein 25. CSF Streptococcus pneumonia Ag negative , Streptococcus B antigen negative. CSF Neisseria meningitis B/E.coli K1 negative, Neisseria meningitis ACY/W135 Ag negative. CSF haemophilus influenzae B Ag negative. MRSA screen negative. Sputum culture thurman resistant Pseudomonas -started meropenam -Discontinued Levofloxacine and started on ear drops Ofloxacin -continue IV Keppra 800mg BID -IV Depakote 187mg q6hr. -seizure precautions -midazolam for breakthrough seizure -Consider trying Glycopyrrolate for secretions if needed. #Paraphimosis #Acute Kidney Injury #Anion Gap Metabolic Acidosis #Lactic acidosis #Elevated total creatine kinase from his hyperkinetic movements #Normocytic Anemia Primary care team to manage above conditions and ongoing care needs. The patient's management plan was discussed with my attending physician Dr. Lang. Zakiya Delacruz, PGY-2 Attending Provider Attestation/Addendum I personally have seen and examined the patient at the bedside and I agreed with resident's findings, assessment and plan of care. Continue to have fever, so far the workup is negative, continue with current mgt.
[2025-05-16 20:30] LABS: Partial Thromboplastin Time 29.0 Seconds (22.0-36.0)
--- NOTE | 2025-05-16 21:10 | PC.NURSE ---
Dr Trejo called to bedside and informed urine was clear/yellow at 190. Hawkins at 2109 noted having blood in tube with no new trauma or tension to hawkins. Per Md start heparin drip at this time.
[2025-05-16] MEDS: HEPARIN SOD INJ 5000 UNIT/ML VIAL 6400 UNIT IV (21:24)
[2025-05-16] MEDS: Heparin/D5w 25K 250 ML Ivpb 25,000 UNIT/250 ML BAG 14.346 UNIT IV (21:25)
[2025-05-17] VITALS (38 sets, daily range): BP systolic 105–168; BP diastolic 45–142; PULSE 92–150; RESP 13–38; TEMP 37.2–39.3; O2SAT 96–100; BMI 34.4
[2025-05-17] MEDS: MIDAZOLAM INJ 1 MG/ML VIAL 2 ML 4 MG IVP ×2 (01:05→11:20)
[2025-05-17 01:36] LABS: Base Excess 2 (-3-3); HCO3 27 mEq/L (20-26); Inspired Oxygen, FIO2 35 %; O2 Saturation 98 % (91-98); PCO2 46 mmHg (32.0-48.0); PO2 90 mmHg (83-108); pH, Arterial 7.38 (7.35-7.45)
[2025-05-17 01:37] LABS: Allen Test Performed/OK; Puncture Site Right Radial
[2025-05-17] MEDS: PROPOFOL 1,000 MG IVPB 1,000 MG/100 ML VIAL 21.03 MG IV ×2 (04:00→08:10)
--- NOTE | 2025-05-17 04:10 | PC.NURSE ---
Dr Trejo called to bedside at 1215 for increasing hematuria in hawkins, orders received to d/c heparin infusion at this time.
[2025-05-17] MEDS: MEROPENEM INJ 1,000 MG in SODIUM CHLORIDE 0.9% (Popper) 50 ML 100 MG IV ×3 (05:35→22:16)
[2025-05-17 05:43] LABS: Basophils # (Auto) 0.1 Thou/mm3 (0.0-0.2); Basophils % (Auto) 1 % (0-2.5); Eosinophils # (Auto) 0.6 Thou/mm3 (0.0-0.5); Eosinophils % (Auto) 4 % (0-10); Hematocrit 27.7 % (41.0-53.0); Hemoglobin 8.9 g/dL (13.5-16.0); Immature Granulocytes Auto 0.54 Thou/mm3 (0.00-0.00); Lymphocytes # (Auto) 3.5 Thou/mm3 (1.0-4.8); Lymphocytes % (Auto) 24 % (10-50); Mean Corpuscular HGB Conc 32.1 g/dl (31.0-37.0); Mean Corpuscular Hemoglobin 28.0 pg (25.0-35.0); Mean Corpuscular Volume 87 fL (80-100); Monocytes # (Auto) 2.2 Thou/mm3 (0.0-0.8); Monocytes % (Auto) 15 % (0-12); Neutrophils # (Auto) 7.7 Thou/mm3 (1.8-7.7); Neutrophils % (Auto) 53 % (37-80); Nucleated Red Blood Cell # 0.00 Thou/mm3 (0.00-0.00); Nucleated Red Blood Cell % 0 /100 WBC (0); Platelet Count 378 Thou/mm3 (140-440); RDW Standard Deviation 46.3 fL (35.1-43.9); Red Blood Count 3.18 Miln/mm3 (4.50-5.90); White Blood Count 14.7 Thou/mm3 (3.8-10.6)
[2025-05-17 06:05] LABS: Alanine Aminotransferase 74 U/L (10-49); Albumin, Serum 3.3 gm/dL (3.5-5.0); Albumin/Globulin Ratio 1.2 (1.2-2.2); Alkaline Phosphatase 146 U/L (46-116); Anion Gap 10 (7-16); Aspartate Amino Transferase 55 U/L (0-34); BUN/Creatinine Ratio 18 Ratio (12-20); Bilirubin,Total 0.4 mg/dL (0.3-1.2); Blood Urea Nitrogen 11 mg/dL (9-23); Calcium 9.0 mg/dL (8.3-10.6); Calcium (Corrected) 9.6 mg/dL (8.5-10.1); Carbon Dioxide 27.0 mMol/L (20.0-31.0); Chloride 103 mMol/L (98-107); Creatinine (Component) 0.6 mg/dL (0.6-1.3); Estimated Creatinine Clearance 162.5 mL/min (>60); Globulin 2.8 gm/dL (2.3-3.5); Glucose 80 mg/dL (74-106); Magnesium 1.5 mg/dL (1.6-2.6); Osmolality,Calculated 277 (275-295); Phosphorous 5.2 mg/dL (2.4-5.1); Potassium 5.2 mMol/L (3.4-5.1); Procalcitonin 0.44 ng/ml (0.0-0.49); Sodium 140 mMol/L (136-145); Total Protein 6.1 gm/dL (5.7-8.2); Triglycerides 312 mg/dL (30-150); eGFR > 60 See Note
[2025-05-17] MEDS: IPRATROPIUM RT 0.5 MG/ 2.5 ML NEBU INH ×2 (06:56→12:32)
[2025-05-17] MEDS: fentaNYL 2,500 MCG/250 ML BAG 2,500 MCG/250 ML BAG 30 MCG IV ×2 (07:02→15:32)
[2025-05-17 07:32] LABS: Creatine Kinase 363 U/L (34-171); LDH (Lactate Dehydrogenase) 350 U/L (120-246); Uric Acid 3.5 mg/dL (3.7-9.2)
[2025-05-17 07:56] LABS: Syphilis Nonreactive (Nonreactive)
[2025-05-17] MEDS: PHENobarbital Inj 130 MG, SODIUM CHLORIDE 0.9% FLUSH 12 ML IVP (08:50)
[2025-05-17] MEDS: OFLOXACIN OP SOL 0.3% 5 ML BTL 5 DROP BOTH EARS ×2 (09:58→21:30)
--- NOTE | 2025-05-17 10:27 | ESPR_ITS ---
<Statement entered by Kamlesh Baer MD - 05/17/25 18:33> Patient seen and examined at bedside. I discussed and supervised with the internet marketing coordinator physician who took care of this patient. I personally saw and examined the patient. I agree with most of the assessment and plan. Patient on heparin drip for left upper extremity DVT, noted gross hematuria, will continue to monitor closely. Patient had fever overnight, however has been afebrile throughout the day. Patient on scheduled phenobarbital 3 times daily and oxycodone 3 times daily, attending to wean off propofol and fentanyl drips. Patient had multiple bowel movements with MiraLAX treatment. Bronchoscopy performed without incident, patient tolerated well, noted to have secretions but no obstruction, no signs significant lung pathology. Will continue to wean off sedation, possible extubation tomorrow. Plan of care discussed with attending Dr. Armendariz. Kamlesh Baer MD PGY-2 Documentation for date of: 05/17/25 Subjective Subjective Interval history: 05/17/2025: Overnight,patient was placed on droplet precautions due to positive rhinovirus and human metapneumovirus. Patient received a 4 mg dose of Versed for agitation. Heparin drip was initiated for an upper extremity DVT but was paused at 12:15 AM due to hematuria without clots. Urine output was approximately 170 cc/hr, and the patient had two bowel movements since yesterday. Today, the patient underwent bronchoscopy and tolerated the procedure well, with stable gas exchange observed. To facilitate weaning off fentanyl and propofol, the patient was started on phenobarbital 13 mg and oxycodone 10 mg scheduled TID. Will consider adding Precedex to further support the weaning process and work towards extubation tomorrow. Heparin drip for the DVT has been restarted as the hematuria is improving. Additionally, 1L of IV LR was administered to address hyperkalemia and hyperphosphatemia on AM labs. Plan is to remove the Hawkins catheter tomorrow, 05/18. 05/16/2025: Overnight, patient experienced intermittent spasmodic jerking episodes, lasting about 15-20 minutes at a time. During these episodes, the patient becomes tachycardic and febrile. Baclofen 10mg was administered, followed by a single dose of midazolam 2mg IV for agitation. Patient remains on fentanyl 100 mcg/hr and propofol 50 mcg/kg/min for sedation. Patient spiked a fever of 102.6?F, for which IV tylenol was given. A subsequent temperature of 102.4?F was treated with ibuprofen. The Hawkins catheter was replaced overnight. Urine output over the past 12 hours was approximately 850 mL. Patient has not had a bowel movement since 05/13, will add miralax. Due to persistent fevers, doxycycline 100 mg IV BID was initiated for gram-positive cocci coverage. Blood cultures will be repeated, and a right upper quadrant ultrasound has been ordered to evaluate for potential hepatobiliary source of infection. Liver enzymes are improved from yesterday. Planned Interventions: Initiate phenobarbital 130 mg IV every 6 hours and begin weaning off propofol. Increased olanzapine from 5 mg GT QHS to 5 mg TID. Perform bilateral upper extremity ultrasound to assess for DVT. Repeat UA, CXR, CT head and abd/pelvis. Check lipase levels. 05/15/2025: Overnight, the patient developed a fever of 101.8?F. PO acetaminophen was switched to IV formulation by the night team. Temperature improved to 99.5?F by morning. Urine output over the past 12 hours was approximately 620 cc. Liver enzymes continue to trend upward, will hold acetaminophen for now. Patient was weaned off midazolam infusion today. Plan is to begin tapering propofol next. Antipsychotic regimen was adjusted from quetiapine to olanzapine to minimize risk of QTc prolongation. Repeat chest X- ray showed improvement in bilateral pneumonia. Bronchoscopy was performed yesterday (05/14). Repeat procedure is being considered for 05/16. Increase in WBCs and fever likely from bronchoscopy. 05/14/2025: No acute events overnight. Stable on versed/ fentanyl and propofol. No vasopressor requirements. Patient underwent bronchoscopy, well tolerated. Gas exchange stable. PPeak remains in mid20s. Patient on minimal FiO2 and PEEP now. Good ventilator synchrony. Continues to have heavy drooling and output form upper airway. Minimal from ETT now. 05/13/2025: Patient increased FiO2 overnight to 100%. Difficulty managing secretions. Bleeding from nose and plugging. Agitated with maximal dose of precedex and benadryl pushes. Patient with low grade temp to 100.4F. Mild secretions from ETT, pink/ frothy. 05/12/2025: Patient weaned down on sedation. Tmax 102 degrees at 1600 hrs. 05/11. Patient developed mild hepatitis, likely response to medications, will monitor. Patient successfully weaned off of propofol and fentanyl, Precedex initiated. Patient extubated, placed on high flow. Continues to have high secretions, treated with chest PT, oral suctioning as needed, ipratropium breathing treatments scheduled. Patient notably agitated, treating with Benadryl as needed and Precedex drip. Will continue to try and decrease sedation while maintaining patent airway. Sputum culture grew thurman resistant Pseudomonas, meropenem initiated. Will continue Levaquin for now pending cultures. Ear cultures taken. Patient maintaining good urine output, will replete volume if patient exceeds greater than 2 L output. 05/11/2025: Overnight, the patient became increasingly agitated and was observed biting on the endotracheal tube. In response, propofol was increased from 40 mcg/kg/min to 45 mcg/kg/min, and fentanyl was increased from 200 mcg/hr to 250 mcg/hr. The plan is to attempt weaning the patient off sedation today, and work towards extubation. A lumbar puncture was performed, which showed 3 WBCs. Infection from meningitis is less likely, but culture results are pending for confirmation. Today, the patient has been experiencing a low-grade fever, with the highest recorded temperature being 100.4?F. After the Hawkins catheter was placed, the patient had 1700 cc of urine output over the past 12 hours. Followed up with Dr. Jacky Cuadra (ENT in [place]). Dr. Cuadra stated that there is nothing additional he could identify on the CT imaging that the radiologist has not already seen. And that if there was something it would likely be surgical and he does not perform surgeries. He recommended covering for Pseudomonas with clindamycin and Unasyn. The plan is to start levofloxacin for Pseudomonas coverage as well. Additionally, Dr. Cuadra suggested culturing the ear. 05/10/2025: Patient remained sedated with propofol and fentanyl throughout the night, maintaining adequate sedation levels. Around 2 AM, the propofol dose was reduced due to MAP in the 60s. 1L of LR was administered on top of the ongoing IV maintenance fluids at 100cc/hr. Following this, the MAP remained stable above 65. At 6:50 PM on 05/09, an ABG revealed a pH of 7.28, pCO2 of 55, and pO2 of 70, indicative of respiratory acidosis. Patient was given 5 grams of magnesium and 15 mg of albuterol over the course of an hour to promote bronchodilation. Magnesium also needed to be repleted. A repeat ABG showed normalization of the respiratory parameters. Patient's Hawkins catheter was removed and replaced with a QiVi catheter overnight per the patient's father?s request. However, the patient developed urinary retention. A bladder scan performed at 6 AM showed 295cc of retained urine, and a subsequent scan in the afternoon revealed 439cc. Primary team consulted ICU team. On 05/09, two rapid responses were initiated due to the patient?s escalating agitation and anxiety. Patient appeared to be in significant pain from his paraphimosis. The primary team consulted the ICU for further management, as the patient had already received diazepam, haldol, versed, and dilaudid earlier that morning, with inadequate relief. Additionally, there was concern over a decline in his pO2 levels. The initial ABG at 11:56 showed: pH 7.40, pCO2 40, pO2 131, HCO3 25. A repeat ABG at 13:40 revealed: pH 7.27, pCO2 43, pO2 53, HCO3 20. Upon evaluation by the ICU team, the patient was noted to be extremely agitated and wearing an oxygen mask, with audible gurgling sounds coming from the upper airway, raising concern for potential airway compromise. Given the risk of inadequate airway protection, the decision was made to transfer the patient to the ICU for intubation and further management. In the ICU, the patient was intubated. Urology, Dr. Vargas, was consulted earlier in the day. He was able to successfully perform a reduction of the paraphimosis. Telemetry Course: Patient was admitted to telemetry for further workup and management of sepsis of unknown source, with concern for meningitis. Empiric broad-spectrum antibiotic and antiviral therapy were started, consisting of ceftriaxone 2g IV twice daily, vancomycin (pharmacy to dose), ampicillin, and acyclovir. Neurology was consulted. CT of the orbit, sella, and inner ear was ordered given the patient?s history of acute mastoiditis, which showed severe bilateral chronic mastoiditis, bilateral otitis externa, bilateral otitis media, and bilateral cholesteatomas in the attics. CT head was also performed and was negative for acute hemorrhage, mass effect, or midline shift. Findings included prominent sphenoid, ethmoid, and maxillary antral sinusitis, bilateral chronic mastoiditis, bilateral otitis media, and opacification in the bilateral attics. For the patient?s seizures, his home medications of valproic acid and levetiracetam were restarted. Orders for midazolam and Haldol were placed as needed for breakthrough seizures and agitation. An ice pack was ordered for his paraphimosis. Infectious disease was also consulted. History of Present Illness: 24-year-old male with a past medical history significant for cerebral palsy, asthma, seizure disorder, chronic mastoiditis (previously treated with tympanostomy tube placement for recurrent otitis media, now removed), recurrent pneumonia, and chronic PEG tube dependence, presented to the ED on 05/08/2025 with a fever lasting over 24 hours. The patient also had a witnessed seizure episode lasting 5-10 seconds, characterized by tonic-clonic activity confined to the left side of the body. ED Course: -Initial vitals were: BP 122/84, HR 176, RR 26, T 105F, O2 sat 96% on room air. -Labs significant for: CBC showed a WBC of 16.3. CMP showed Na 148, K 5.2, Cl 107, bicarbonate 18.7, anion gap 22, creatinine 1.3 (baseline 0.7), lactic acid 3.2, alkaline phosphatase 120, LDH 352, total CK 1048, procalcitonin: 0.14. Urinalysis negative. Influenza A/B testing was negative. -Imaging included: EKG showed supraventricular tachycardia of HR [address] and T-wave abnormality. CXR showed no aspiration pneumonia but was noted to be of poor inspiratory effort. CT CAP w/o contrast seemed to show no gross infiltrates or other notable findings but was noted to be severely degraded by patient motion. -In the ED, patient was given acetaminophen 975 mg, ceftriaxone 1 gram IV, midazolam 2 mg IV x1, albuterol 2.5 mg, Zosyn 3.375 gram, 2 L NS fluid infusion, and 1 L LR fluid infusion. In the ED, the patient was agitated and pulled out his IV. Attempts at peripheral access were unsuccessful, and a right femoral central line was placed. Exam Vital Signs Temp Pulse Resp BP Pulse Ox O2 Del Method O2 Flow Rate 100.1 F 131 H 31 H 123/81 100 Mechanical Ventilation 35 05/17/25 08:02 05/17/25 10:20 05/17/25 08:02 05/17/25 09:00 05/17/25 10:20 05/17/25 08:02 05/16/25 12:00 FiO2 35 05/17/25 10:20 Narrative Exam Physical Exam General: sedated and intubated, nonverbal at baseline, not in acute distress. Skin: Rash near buttock area. Bruising right upper extremity. Head: Normocephalic, atraumatic. Eyes: PERRL. Anicteric. Bilateral lateral eye scleral hemorrhage. Mouth/Throat: Poor dentition. Oral mucosa moist. No obvious lesions in oropharynx. Cough reflex intact. ETT in place. Cardiovascular: Regular rate and rhythm, no murmur. Respiratory: Rhonchi to auscultation in bilateral lung thompson (right more than left). Gastrointestinal: PEG tube in place. Soft, non-distended, no guarding or rebound tenderness. Genitourinary: Decrease swelling of glans penis. Hawkins in place. Extremities: Contracted and swollen hands. No edema, cyanosis, mottling, clubbing. 2+ radial pulse bilaterally, 2+ posterior tibial pulse bilaterally. Objective Labs 05/30/25 04:37 05/30/25 04:37 Labs: Laboratory Results - last 24 hr 05/15/25 05/16/25 05/16/25 03:27 04:46 14:20 WBC RBC Hgb Hct MCV MCH MCHC RDW Std Deviation Plt Count Neut % (Auto) Lymph % (Auto) Shelby % (Auto) Eos % (Auto) Baso % (Auto) Neut # (Auto) Lymph # (Auto) Shelby # (Auto) Eos # (Auto) Baso # (Auto) Immature Gran # (Auto) Absolute Nucleated RBC Immature Gran % Nucleated RBC % APTT Puncture Site ABG pH ABG pCO2 ABG pO2 ABG HCO3 ABG O2 Saturation ABG Base Excess FiO2 Sodium Potassium Chloride Carbon Dioxide Anion Gap BUN Creatinine Estim Creat Clear Calc eGFR BUN/Creatinine Ratio Glucose Calculated Osmolality Uric Acid Calcium Corrected Calcium Phosphorus Magnesium Total Bilirubin AST ALT Alkaline Phosphatase Lactate Dehydrogenase Total Creatine Kinase Total Protein Albumin Globulin Albumin/Globulin Ratio Triglycerides Lipase 41 Procalcitonin Ur Collection Type Catheter Urine Color Lt-Yellow Urine Clarity Turbid A Urine pH 6.5 Ur Specific Limestone 1.012 Urine Protein Trace Urine Glucose (UA) Negative Urine Ketones Trace Urine Blood 3+ A Urine Nitrite Negative Urine Bilirubin Negative Urine Urobilinogen (Auto) Negative Ur Leukocyte Esterase Negative Urine RBC 1595 H Urine WBC 5 Ur Squamous Epith Cells 0 Urine Bacteria None Ur Culture Indicated? Not Indicated Syphilis Serology Mycobacterial Culture See Sep Rpt 05/16/25 05/17/25 05/17/25 19:52 01:30 04:38 WBC 14.7 H RBC 3.18 L Hgb 8.9 L Hct 27.7 L MCV 87 MCH 28.0 MCHC 32.1 RDW Std Deviation 46.3 H Plt Count 378 D Neut % (Auto) 53 Lymph % (Auto) 24 Shelby % (Auto) 15 H Eos % (Auto) 4 Baso % (Auto) 1 Neut # (Auto) 7.7 Lymph # (Auto) 3.5 Shelby # (Auto) 2.2 H Eos # (Auto) 0.6 H Baso # (Auto) 0.1 Immature Gran # (Auto) 0.54 H Absolute Nucleated RBC 0.00 Immature Gran % 4 H Nucleated RBC % 0 APTT 29.0 Puncture Site Right Radial ABG pH 7.38 ABG pCO2 46 ABG pO2 90 ABG HCO3 27 H ABG O2 Saturation 98 ABG Base Excess 2 FiO2 35 Sodium 140 Potassium 5.2 H D Chloride 103 Carbon Dioxide 27.0 Anion Gap 10 BUN 11 Creatinine 0.6 Estim Creat Clear Calc 162.5 eGFR > 60 BUN/Creatinine Ratio 18 Glucose 80 Calculated Osmolality 277 Uric Acid 3.5 L Calcium 9.0 Corrected Calcium 9.6 Phosphorus 5.2 H Magnesium 1.5 L Total Bilirubin 0.4 AST 55 H ALT 74 H Alkaline Phosphatase 146 H Lactate Dehydrogenase 350 H Total Creatine Kinase 363 H Total Protein 6.1 Albumin 3.3 L Globulin 2.8 Albumin/Globulin Ratio 1.2 Triglycerides 312 H Lipase Procalcitonin 0.44 Ur Collection Type Urine Color Urine Clarity Urine pH Ur Specific Limestone Urine Protein Urine Glucose (UA) Urine Ketones Urine Blood Urine Nitrite Urine Bilirubin Urine Urobilinogen (Auto) Ur Leukocyte Esterase Urine RBC Urine WBC Ur Squamous Epith Cells Urine Bacteria Ur Culture Indicated? Syphilis Serology Nonreactive Mycobacterial Culture ABG Interpretation ABG results: 05/09/25 05/09/25 05/09/25 11:56 13:40 18:50 ABG pH 7.40 7.27 L D 7.28 L ABG pCO2 40 43 55 H D ABG pO2 131 H 53 L* D 70 L ABG HCO3 25 20 26 ABG O2 Saturation 99 H 81 L 92 ABG Base Excess 0 -7 L -2 05/10/25 05/11/25 05/12/25 00:14 05:06 01:18 ABG pH 7.35 7.33 L 7.39 ABG pCO2 42 D 54 H D 48 ABG pO2 103 D 93 94 ABG HCO3 23 28 H 29 H ABG O2 Saturation 99 H 98 98 ABG Base Excess -3 2 3 05/12/25 05/12/25 05/13/25 03:58 11:50 05:10 ABG pH 7.46 H 7.39 7.19 L* D ABG pCO2 41 48 60 H D ABG pO2 105 58 L* D 114 H D ABG HCO3 29 H 29 H 23 ABG O2 Saturation 99 H 90 L 98 ABG Base Excess 5 H 4 H -6 L 05/17/25 01:30 ABG pH 7.38 ABG pCO2 46 ABG pO2 90 ABG HCO3 27 H ABG O2 Saturation 98 ABG Base Excess 2 Quality Measures Quality Measures VTE prophylaxis (SCDs) and sepsis Current suspected stage: sepsis Possible source: pulmonary Blood cultures ordered: yes Antibiotic ordered: Yes Assessment & Plan Assessment Current Active Medications: Generic Name Dose Route Start Last Admin Trade Name Freq PRN Reason Stop Dose Admin Acetaminophen 650 mg 05/14/25 05:13 05/14/25 18:15 Acetaminophen 325 Mg Tablet PO 06/13/25 05:12 650 mg On Hold: 05/14/25 23:01 Q6HR PRN Administration Fever >100.4 Albuterol/Ipratropium 3 ml 05/09/25 18:19 05/12/25 03:42 Albuterol/Ipratropium (Duoneb) Rt Racquel 3 Ml Nebu INH 06/08/25 18:18 3 ml Q2HR PRN Administration SHORTNESS OF BREATH OR WHEEZE Baclofen 10 mg 05/16/25 00:26 05/16/25 01:25 Baclofen 10 Mg Tablet PO 06/15/25 00:25 10 mg TID PRN Administration Spasms Valproic Acid 187.5 mg/ Sodium 51.875 mls @ 51.875 mls/hr 05/09/25 18:00 05/17/25 05:34 Chloride IV 06/07/25 17:59 51.875 mls/hr Q6HR KYA Administration Protocol Meropenem 1,000 mg/ Sodium 50 mls @ 100 mls/hr 05/12/25 14:00 05/17/25 05:35 Chloride IV 05/19/25 13:59 100 mls/hr Q8HR KYA Administration Propofol 1,000 mg in 100 mls @ 2.103 mls/hr 05/13/25 04:16 05/17/25 07:00 Diprivan Ivpb IV 06/12/25 04:15 50 mcg/kg/min .Q24H PRN 21.03 mls/hr PER PROTOCOL Titration Protocol 5 MCG/KG/MIN Fentanyl Citrate 2,500 mcg in 250 mls @ 2.5 mls/hr 05/13/25 04:17 05/17/25 07:02 Sublimaze Inj 2,500 Mcg/250 Ml Bag IV 05/18/25 04:16 300 mcg/hr .Q24H PRN 30 mls/hr PER PROTOCOL Administration Protocol 25 MCG/HR Doxycycline Hyclate 100 mg/ 100 mls @ 100 mls/hr 05/16/25 00:30 05/16/25 22:00 Sodium Chloride IV 05/18/25 23:55 100 mls/hr BID KYA Administration Heparin Sodium/Dextrose 25,000 unit in 250 mls @ 14.346 mls/hr 05/16/25 19:00 05/17/25 00:15 Heparin In D5w Ivpb IV 05/30/25 18:59 0 units/kg/hr .[id number] KYA 0 mls/hr Protocol Titration 18 UNITS/KG/HR Magnesium Sulfate 4 gm in 50 mls @ 12.5 mls/hr 05/17/25 07:04 Magnesium Sulfate Ivpb IV 05/17/25 11:03 X1 ONE Lactated Ringer's 1,000 mls @ 999 mls/hr 05/17/25 10:21 Lactated Ringers IV 05/17/25 11:21 .Q1H1M ONE Ipratropium [place] 0.5 mg 05/12/25 12:00 05/17/25 06:56 Ipratropium Rt 0.5 Mg/ 2.5 Ml Nebu INH 06/11/25 11:59 0.5 mg Q6HR KYA Administration Levetiracetam 800 mg 05/08/25 21:00 05/16/25 22:00 Levetiracetam Inj 100 Mg/Ml Vial 5ml IV 06/07/25 20:59 800 mg BID KYA Administration Ofloxacin 5 drop 05/09/25 10:15 05/16/25 22:00 Ofloxacin Op Racquel 0.3% 5 Ml Btl BOTH EARS 05/18/25 10:14 1 drops BID KYA Administration Olanzapine 5 mg 05/16/25 14:00 05/17/25 05:35 Olanzapine 5 Mg Tablet GT 06/15/25 13:59 5 mg TID KYA Administration Ondansetron HCl 4 mg 05/08/25 11:36 Ondansetron Inj 2 Mg/Ml Inj 2 Ml IVP 06/07/25 11:35 Q6HR PRN NAUSEA OR VOMITING Protocol Oxycodone/Acetaminophen 1 tab 05/17/25 14:00 Oxycodone/Apap 5/325 Tablet GT 05/22/25 13:59 TID KYA Pantoprazole Sodium 40 mg 05/12/25 11:25 05/16/25 09:54 Pantoprazole Inj 40 Mg Vial IVP 06/11/25 11:24 40 mg QDAY KYA Administration Pharmacy Consult 1 each 05/08/25 16:12 Pharmacy To Consult Patient XX 06/07/25 16:11 PRN PRN CONSULT Phenobarbital Sodium 130 mg 05/17/25 14:00 Phenobarbital Inj 130 Mg/1 Ml Vial IVP 05/31/25 13:59 TID KYA Polyethylene Glycol 17 gm 05/16/25 09:15 05/16/25 12:17 Polyethylene Glycol 17 Gm Packet PO 06/15/25 09:14 17 gm QDAY KYA Administration Sodium Chloride 3 ml 05/12/25 09:33 Sodium Chloride Rt Racquel 0.9% 3 Ml Nebu INH 06/11/25 09:32 PRN PRN SOLN Plan 24-year-old male with cerebral palsy, asthma, seizure disorder, chronic mastoiditis, recurrent pneumonia, and chronic PEG tube dependence presented with fever and seizure, was admitted for sepsis workup, and later transferred to the ICU for intubation due to concerns about airway protection. Neurology #Agitated delerium Patient was extremely agitated before ICU admission, likely due to pain from paraphimosis. Patient initially sedated with propofol and fentanyl, titrated to Precedex with Benadryl as needed. Patient failed extubation and was intubated on 05/12. Propofol and fentanyl was restarted. Diagnostic Test: - 05/17 AM: RASS was +1: anxious, apprehensive but movements not aggressive or vigorous. Treatment Review (completed) - Versad 5mg/h was tapered off on 05/15. Treatment Plan: - Phenobarbital 130 mg IV TID and Oxycodone 10mg TID. - Start titrating down propfol and fentanyl as tolerated. - Currently Propofol 50 mcg/kg/min, goal is to decrease by 50% by tomorrow. - Continue Olanzapine 5mg GT nightly to three times daily. - TG levels on 05/17: 312. - CK levels on 05/17: 363. #Breakthrough tonic clonic seizure #History of seizures #Cerebral palsy DDx: likely secondary to sepsis vs electrolyte imbalances vs medication non- compliance or inadequate medication dosing vs hypoglycemia vs dehydration. Diagnosis: - Temperature of 105F on admission. - Sodium 148 and potassium 5.2 on admission. - EEG unremarkable Treatment Plan: - Continue valproic acid 187.5 mg Q6H. - Continue levetiracetam 800mg BID. - Adjust seizure medications if breakthrough seizures persist. - Seizure precautions. - Aspiration precautions. - Repeat CBC, electrolytes, renal function, and liver function tests to monitor for any metabolic derangements contributing to seizures. Cardiovascular #no active problems Respiratory #Failed extubation 05/12 #Acute hypoxic respiratory failure Diagnostic Test: - ABG 05/10 at 00:14: pH 7.35, pCO2 41, pO2 103, HCO3 23. - ABG 05/11 at 05:06: pH 7.33, pCO2 54, pO2 93, HCO3 28. - CXR 05/11: Mild bilateral perihilar pneumonia. To assess for ventilator associated pneumonia. Not much change from 05/09 CXR. - Pseudomonas from ETT secretions previously (05/09). - CXR 05/15: improvement in bilateral pneumonia. - CXR 05/16: worsening diffuse severe left lung pneumonia Treatment Review (completed): - Patient extubated to [facility] 05/12, chest film with centro-bronchovascular congestion and multifocal pneumonia. - Reintubated overnight 05/13- VC/AC PPeak 20 PEEP 5 FiO2 40%. - Patient underwent bronchoscopy on 05/14 and 05/17 for secretions, well tolerated. Treatment Plan: - Bronchoscopy culture pending. - Chest physiotherapy BID. - Ipratropium 0.5 mg every 6 hours. - Continue with mechanical ventilation. - Plan to extubate once off sedations. #Bronchospasm #History of asthma Diagnostic Test: - Although the patient has a history of asthma, the bronchospasm is most likely from the irritant effect of blood in the airway. A small amount of blood, which was likely from dryness of the nasal mucosa, was suctioned out during intubation. Treatment Plan: - Magnesium for bronchodilator effect as needed. - Albuterol as needed. GI, , F/E/N #Acute urinary retention (resolved) Treatment Plan - Maintain hawkins catheter. Monitor UOP. - Monitor urine output, replace fluid if needed. - Hawkins changed and replaced on 05/16. - Plan to remove hawkins on 05/17. #Paraphimosis (resolved) #Balanitis (resolved) Diagnostic Test: - Edema and tenderness of the glans penis resolved - Swelling of the distal retracted foreskin. - Constricting band of tissue proximal to the head of the penis at the coronal sulcus. - Hawkins was removed on 05/09 and transitioned to Oivi external urinary catheter. Discussed with family about the need to reinsert hawkins due to the patient's acute urinary retention. Family were in agreement with this plan. Hawkins was reinserted on 05/10 due to urinary retention. - S/p reduction of the paraphimosis by Dr. Vargas on 05/09. Treatment Plan: - Control patient's pain with sedation. - Monitor urine output. - Remove hawkins when appropriate. #Chronic PEG tube dependence #Constipation Treatment Plan: - Jevity 1.5 at 40 ml/hr x 24 hrs via PEG tube by pump (goal). If no IV fluids, water flushes of 35 ml/hr. - ProStat 30ml BID via PEG tube. - Appreciate clinical fellow recommendations. - Triglyceride level 05/14 - 290; 05/17 - 312. - Bowel movements resumed after adding miralax. - Repeat TG levels every 72 hours when on Propofol to monitor for propofol infusion syndrome. #Hepatitis (downtrending) DDx: muscle injury vs hemolytic anemia vs myocarditis vs medication induced - Muscle injury/rhabdomyolysis - supported by rising CK and normal ALT. - Hemolytic anemia - possible source of AST from RBC breakdown. - Myocarditis - less likely given normal troponin. - Patient received multiple medications that could potentially cause hepatotoxicity in ICU. -Initial resolving, WNL LFTs 05/11, slight increase 05/12 Diagnostic Test: - AST 199 --> 56 --> 55. - ALT 152 --> 93 --> 74. - ALP 191 --> 158 --> 146. - CK 3743 --> 1654->338 --> 363. - LDH 352 --> 332 --> 350. - Troponin <0.002. - Gallbladder ultrasound 05/16: Normal gallbladder, no gallstones. Fatty infiltration throughout the liver. - Lipase 05/16: 41 wnl. Treatment Plan: - Continue daily LFTs. - Avoid acetaminophen unless fever exceeds 101.0?F - Meropenem likely also contributing since it is hepatotoxic. Will continue to monitor. - Will reassess if transaminases continue to rise or clinical status changes. #Hypoalbuminemia (low, stable) DDx: acute hepatitis vs nephrotic syndrome vs sepsis vs malnutrition vs diluational. Diagnostic Test: - UA had urine proteins 1+. - Albumin 4.9 -->3.3 -->2.8 --> 3.2. - Hgb and WBC also decreased with albumin, likely diluational. Treatment Plan: - Monitor LFTs, INR, and bilirubin. - Maintain on PEG tube feeds per clinical fellow recommendations. Renal #Hyperkalemia #Hyperphosphatemia DDx: acute kidney injury vs hemolysis vs rhabdomyolysis. Diagnostic Test: - Potassium 5.2. - Phosphorus 5.2. - CK 363. - LDH 350. - Uric acid 3.5. - Hemoglobin 8.9. - Cr 0.6. Treatment Plan: - IV fluid 1L LR. - Monitor BMP and phosphorus. - Monitor potassium levels to avoid arrhythmias. #Acute kidney injury DDx: hypotension, dehydration, or vasodilation from sepsis. Diagnositc Test: - Creatinine 1.3 (baseline: 0.7)--> 1.2 --> 1.0-->0.9 Treatment Plan: - Continue with free water flushes. - Daily renal panel to trend BUN, Cr, and electrolytes. - Avoid nephrotoxins. - Renally dose meds as appropriate. - Strict I&Os, monitor urine output closely. - Monitor for signs of volume overload or uremic symptoms. #Anion Gap Metabolic Acidosis (resolved) #Lactic acidosis (resolved) DDx: seizures vs sepsis vs acute kidney injury vs hypoperfusion. Likely from seizures as patient has no signs of systemic hypoperfusion such as skin mottling, decreased cap refills. Diagnostic Test: - Admission anion gap 22, lactic acid 16.0, bicarbonate 18.7. Treatment Plan: - Recheck LA as needed. #Rhabdomyolysis (resolving) DDx: seizures vs hyperthermia vs infectious myositis. Diagnostic Test: - CK 1048 --> 3743 --> 1654 --> 338 --> 363. - Witnessed seizure episode lasting 5-10 seconds, characterized by tonic-clonic activity prior to admission. Treatment Plan: - Continue free water flushes. - Monitor urine output. - Correct electrolyte abnormalities. - Control seizures with valproic acid and levetiracetam. - Acetaminophen as needed for fevers. - Monitor renal panel. Heme #Leukocytosis (downtrending) DDx: likely due to bronchoscopy on 05/14 vs infection of unknown source. Diagnostic Test: - Continue to have fever spikes as high as 102.6?F. Treatment Plan: - Continue Meropenem 1 g IV every 8 hour (started 05/12). #Acute nonocclusive thrombus in the left brachial vein Diagnostic Test: - Venous doppler study of upper extremities 05/16: Normal right upper extremity deep venous system. Positive for nonocclusive thrombus in the left brachial vein. Treatment Plan: - Continue heparin ggt. Switched from Lovenox to heparin due to heparin?s shorter half-life, which allows for more rapid cessation in the event of bleeding.s a shorter half life and can be stopped if bleeding occurs. #Normocytic Anemia #Hematoma on left forearm DDx: Anemia of Inflammation vs dilutional anemia vs drug-induced anemia. Likely dilutional anemia since patient had normal hemoglobin on admission and from IV fluids per sepsis protocol. No signs of bleeding. Diagnostic Test: - Hemoglobin 14.0 -->8.2 over the week Treatment Plan: - Monitor H&H. - Type and screen. - Transfusing for Hgb <7 or symptomatic. #Thrombocytopenia (resolved) DDx: Dilutional versus consumption versus increased destruction due to sepsis Initial decrease is likely due to dilutional in setting of IV fluids, however his WBC and hemoglobin have leveled off platelets have down trended Diagnostic test: - Platelets: 209 --> 65-->141. Treatment plan: - Monitor daily labs - Avoid excessive oral tracheal suctioning in setting of previous bleed and thrombocytopenia Endo #no active problems ID #Sepsis #Bilateral chronic mastoiditis #Sinusitis #Bilateral otitis media #Bilateral otitis externa DDx: meningitis vs acute on chronic mastoiditis vs acute febrile illness. Diagnostic Test: - History of chronic mastoiditis. - CT Head 05/08: prominent sphenoid ethmoid maxillary antral sinusitis, bilateral chronic mastoiditis, bilateral otitis media. - CT Orbit Sella Inner 05/08: severe bilateral chronic mastoiditis, bilateral otitis externa and otitis media, bilateral cholesteatomas in the attics. - Met SIRS criteria on admission: T 105F, HR 176, RR 26, PaCO2 26, WBC 16.3. - Lactic acid 16.0 on admission. - UA negative. - Blood culture 05/08: negative. - Lumbar puncture: clear, WBC 3, glucose 70, total protein 25. - CSF Streptococcus pneumonia Ag negative. - CSF Streptococcus B antigen negative. - CSF Neisseria meningitis B/E.coli K1 negative. - CSF Neisseria meningitis ACY/W135 Ag negative. - CSF haemophilus influenzae B Ag negative. - CSF enterovirus RNA negative. - CSF West Nile virus IgG antibody negative. - CSF West Nile virus IgM antibody negative. - MRSA screen negative. - Sputum culture 1+ thurman resistance Pseudomonas. - Bilateral ear cultures E coli ESBL. - Repeat blood cultures (05/11) negative. - Respiratory viral panel (05/10): rhinovirus/enterovirus and human metapneumovirus detected. Treatment Review (completed) - Discontinue IV rocephin 2 gm q12HR [05/08-05/11]. - Discontinue IV vancomycin dosed by pharmacy [05/08-05/11] since MRSA screen is negative. - Discontinue IV acyclovir 700 mg [05/08-05/11] since LP negative. - Discontinued IV ampicillin 2 gm q4HR [05/08-05/09] as patient not in the age group at risk for Listeria infection. - Fluids: 30mL/kg -- 2 L NS fluid infusion and 1 L LR fluid infusion was given in the ED. - Femoral central line removed, replaced with peripheral access. - Discontinued IV Levaquin 750 mg [05/11-05/12]. Treatment Plan: - Topical oxofloxacin. - Meropenem 1 g IV every 8 hour (started 05/12). #Fever of unknown origin Diagnostic Test: - CTAP 05/16: extensive bilateral pneumonia, cystitis pattern, cholelithiasis. - CXR 05/16: worsening diffuse severe left lung pneumonia. - Head CT 05/16: unremarkable. - Venous doppler ultrasound 05/16: Normal right upper extremity deep venous system. Positive for nonocclusive thrombus in the left brachial vein. Treatment Plan: - Blood culture pending - NGTD. - Continue doxycycline 100 mg IV twice daily for GPC coverage. - Continue heparin ggt for UE DVT. Integumentary #Maculopapular rash to the buttocks DDx: contact dermatitis vs allergic dermatitis Treatment Plan - Patient no longer has diaper on as hawkins is in place. Anticipate rash to improve. Health Maintenance DVT prophylaxis: Heparin ggt GI prophylaxis: Protonix IV Diet: Jevity Hawkins: present Lines: Peripherals Drips: Propofol, fentanyl Vent: MV, PPlat <30 and TV < 8 ml/kg IBW CODE STATUS: FULL CODE Patient plan of care was discussed with the senior resident, Dr. Baer, and attending physician, Dr. Armendariz. Diaz Coppola DO Internal Medicine PGY-1 Attending Provider Attestation/Addendum Patient seen and examined with above resident, Diaz Coppola DO. I agree with the findings, assessment, and plan of care as document except for any differences below. Patient with hematuria after initiation of Lovenox. Will stop overnight and we will rechallenge for upper extremity DVT as a potential etiology of his ongoing fevers. Patient continues to have fever overnight despite being on meropenem which is adequate based on culture data. Will continue to work on optimizing removal of sedation with addition of phenobarbital, Seroquel and use of oxycodone to relieve need for ongoing fentanyl drip. Patient had multiple bowels with initiation of MiraLAX and is tolerating tube feeds well. Bronchoscopy performed again today which showed continued secretion production though improved edema within the airways. Will continue to remove sedation with goal to attempt weaning from mechanical ventilation as physiologic demand tolerates. Left the patient continues to have fevers this may preclude ability to do this. Patient continues to have good urine output with resolution of his paraphimosis. We have been able to remove Hawkins catheter appropriately as no other source of infectious etiology with negative culture data otherwise. Patient continues to be on adequate coverage for otitis externa/media as well as mastoiditis as seen by imaging. Should the patient fail to be weaned from mechanical ventilation the need for tracheostomy has already been discussed with his parents we have reiterated there are aims remain fully on trying to liberate him from the ventilator as we were able to previously despite it being challenging due to his underlying cognitive dysfunction. Total critical care time: I personally spent 40 minutes for review of physiologic parameters, directing plan of care throughout the day, coordination of care with other subspecialist, and counseling patient's family at bedside. This is exclusive of time spent teaching of staff performing separate billable procedures. The patient remains at significant risk for further morbidity and mortality warranting close monitoring and care only available in the ICU. Critical care services required for acute metabolic encephalopathy, acute hypoxic respiratory failure, left upper extremity DVT, otitis/mastoiditis/sinusitis.
[2025-05-17] MEDS: DOXYCYCLINE INJ 100 MG in SODIUM CHLORIDE 0.9% (POP) 100 ML IV ×2 (10:39→20:48)
[2025-05-17] MEDS: levETIRAcetam INJ 100 MG/ML VIAL 5ML 800 MG IV ×2 (10:40→20:48)
[2025-05-17] MEDS: RINGERS LACTATED 1000 ML 1,000 ML 999 ML IV (10:42)
[2025-05-17] MEDS: Heparin/D5w 25K 250 ML Ivpb 25,000 UNIT/250 ML BAG 14.346 UNIT IV (10:43)
[2025-05-17] MEDS: Magnesium Sulfate 4 GM Ivpb 4 GM/50 ML BAG IV (10:43)
[2025-05-17] MEDS: oxyCODONE HCL 5 MG IR TAB 10 MG GT ×3 (10:44→22:16)
[2025-05-17 10:56] LABS: Partial Thromboplastin Time 27.3 Seconds (22.0-36.0)
[2025-05-17 11:17] LABS: Vitamin B12 1681 pg/mL (211-911)
[2025-05-17] MEDS: fentaNYL CIT INJ 50 mCg/ML AMP 2ML 100 MCG IVP (11:20)
[2025-05-17] MEDS: LIDOCAINE HCL 1% 20 ML VIAL IM (11:25)
[2025-05-17] MEDS: ALBUTEROL RT 2.5 MG/0.5 ML NEBU INH (12:32)
[2025-05-17] MEDS: PROPOFOL 1,000 MG IVPB 1,000 MG/100 ML VIAL 14.721 MG IV (13:15)
[2025-05-17] MEDS: PHENobarbital INJ 130 MG/1 ML VIAL IVP ×2 (14:19→22:16)
[2025-05-17 18:08] LABS: Partial Thromboplastin Time 51.7 Seconds (22.0-36.0)
--- NOTE | 2025-05-17 20:02 | ESPR_ITS ---
Documentation for date of: 05/17/25 Subjective Subjective Interval history: Patient examined at bedside. Remains sedated and intubated. Continues to spike fevers overnight and throughout the day. WBC downtrending to 14. Ultrasound upper extremities revealed nonocclusive thrombus of left brachial vein. Currently on heparin drip. Continue valproic acid and Keppra. Exam Vital Signs Temp Pulse Resp BP Pulse Ox O2 Del Method O2 Flow Rate 102.4 F H 149 H 28 H 123/80 99 Mechanical Ventilation 35 05/17/25 19:03 05/17/25 19:17 05/17/25 19:16 05/17/25 18:03 05/17/25 19:17 05/17/25 16:00 05/16/25 12:00 FiO2 35 05/17/25 19:17 Narrative Exam General: sedated, intubated, on MV HEENT: NCAT, No JVD noted. Mucosa moist. pinpoint Pupils are equal and reactive to light bilaterally Cardiovascular: Normal S1 and S2. Regular rate and rhythm. Respiratory: equal breath sounds, rhonchi Abdomen: Soft, nontender, not distended, normal bowel sounds. PEG tube in place : Paraphimosis of penis. Osborne inserted with red tinged urine Musculoskeletal: no pitting edema, muscle atrophy, Feet show fixed contractures with inward curvature. Spastic Neuro:deferred Objective Labs 05/21/25 04:30 05/21/25 04:30 Labs: Laboratory Results - last 24 hr 05/15/25 05/16/25 05/17/25 03:27 19:52 01:30 WBC RBC Hgb Hct MCV MCH MCHC RDW Std Deviation Plt Count Neut % (Auto) Lymph % (Auto) [place] % (Auto) Eos % (Auto) Baso % (Auto) Neut # (Auto) Lymph # (Auto) [place] # (Auto) Eos # (Auto) Baso # (Auto) Immature Gran # (Auto) Absolute Nucleated RBC Immature Gran % Nucleated RBC % APTT 29.0 Puncture Site Right Radial ABG pH 7.38 ABG pCO2 46 ABG pO2 90 ABG HCO3 27 H ABG O2 Saturation 98 ABG Base Excess 2 FiO2 35 Sodium Potassium Chloride Carbon Dioxide Anion Gap BUN Creatinine Estim Creat Clear Calc eGFR BUN/Creatinine Ratio Glucose Calculated Osmolality Uric Acid Calcium Corrected Calcium Phosphorus Magnesium Total Bilirubin AST ALT Alkaline Phosphatase Lactate Dehydrogenase Total Creatine Kinase Total Protein Albumin Globulin Albumin/Globulin Ratio Triglycerides Vitamin B12 Procalcitonin Syphilis Serology Mycobacterial Culture See Sep Rpt 05/17/25 05/17/25 05/17/25 04:38 10:11 17:05 WBC 14.7 H RBC 3.18 L Hgb 8.9 L Hct 27.7 L MCV 87 MCH 28.0 MCHC 32.1 RDW Std Deviation 46.3 H Plt Count 378 D Neut % (Auto) 53 Lymph % (Auto) 24 [place] % (Auto) 15 H Eos % (Auto) 4 Baso % (Auto) 1 Neut # (Auto) 7.7 Lymph # (Auto) 3.5 [place] # (Auto) 2.2 H Eos # (Auto) 0.6 H Baso # (Auto) 0.1 Immature Gran # (Auto) 0.54 H Absolute Nucleated RBC 0.00 Immature Gran % 4 H Nucleated RBC % 0 APTT 27.3 51.7 H D Puncture Site ABG pH ABG pCO2 ABG pO2 ABG HCO3 ABG O2 Saturation ABG Base Excess FiO2 Sodium 140 Potassium 5.2 H D Chloride 103 Carbon Dioxide 27.0 Anion Gap 10 BUN 11 Creatinine 0.6 Estim Creat Clear Calc 162.5 eGFR > 60 BUN/Creatinine Ratio 18 Glucose 80 Calculated Osmolality 277 Uric Acid 3.5 L Calcium 9.0 Corrected Calcium 9.6 Phosphorus 5.2 H Magnesium 1.5 L Total Bilirubin 0.4 AST 55 H ALT 74 H Alkaline Phosphatase 146 H Lactate Dehydrogenase 350 H Total Creatine Kinase 363 H Total Protein 6.1 Albumin 3.3 L Globulin 2.8 Albumin/Globulin Ratio 1.2 Triglycerides 312 H Vitamin B12 1681 H Procalcitonin 0.44 Syphilis Serology Nonreactive Mycobacterial Culture ABG Interpretation ABG results: 05/09/25 05/09/25 05/09/25 11:56 13:40 18:50 ABG pH 7.40 7.27 L D 7.28 L ABG pCO2 40 43 55 H D ABG pO2 131 H 53 L* D 70 L ABG HCO3 25 20 26 ABG O2 Saturation 99 H 81 L 92 ABG Base Excess 0 -7 L -2 05/10/25 05/11/25 05/12/25 00:14 05:06 01:18 ABG pH 7.35 7.33 L 7.39 ABG pCO2 42 D 54 H D 48 ABG pO2 103 D 93 94 ABG HCO3 23 28 H 29 H ABG O2 Saturation 99 H 98 98 ABG Base Excess -3 2 3 05/12/25 05/12/25 05/13/25 03:58 11:50 05:10 ABG pH 7.46 H 7.39 7.19 L* D ABG pCO2 41 48 60 H D ABG pO2 105 58 L* D 114 H D ABG HCO3 29 H 29 H 23 ABG O2 Saturation 99 H 90 L 98 ABG Base Excess 5 H 4 H -6 L 05/17/25 01:30 ABG pH 7.38 ABG pCO2 46 ABG pO2 90 ABG HCO3 27 H ABG O2 Saturation 98 ABG Base Excess 2 Quality Measures Quality Measures VTE prophylaxis (SCDs) and sepsis Current suspected stage: sepsis Possible source: pulmonary Blood cultures ordered: yes Antibiotic ordered: Yes Assessment & Plan Assessment Current Active Medications: Generic Name Dose Route Start Last Admin Trade Name Freq PRN Reason Stop Dose Admin Acetaminophen 650 mg 05/14/25 05:13 05/14/25 18:15 Acetaminophen 325 Mg Tablet PO 06/13/25 05:12 650 mg On Hold: 05/14/25 23:01 Q6HR PRN Administration Fever >100.4 Albuterol/Ipratropium 3 ml 05/09/25 18:19 05/12/25 03:42 Albuterol/Ipratropium (Duoneb) Rt Racquel 3 Ml Nebu INH 06/08/25 18:18 3 ml Q2HR PRN Administration SHORTNESS OF BREATH OR WHEEZE Baclofen 10 mg 05/16/25 00:26 05/16/25 01:25 Baclofen 10 Mg Tablet PO 06/15/25 00:25 10 mg TID PRN Administration Spasms Valproic Acid 187.5 mg/ Sodium 51.875 mls @ 51.875 mls/hr 05/09/25 18:00 05/17/25 18:17 Chloride IV 06/07/25 17:59 51.875 mls/hr Q6HR KYA Administration Protocol Meropenem 1,000 mg/ Sodium 50 mls @ 100 mls/hr 05/12/25 14:00 05/17/25 16:57 Chloride IV 05/19/25 13:59 Infused Q8HR KYA Infusion Propofol 1,000 mg in 100 mls @ 2.103 mls/hr 05/13/25 04:16 05/17/25 18:00 Diprivan Ivpb IV 06/12/25 04:15 30 mcg/kg/min .Q24H PRN 12.618 mls/hr PER PROTOCOL Titration Protocol 5 MCG/KG/MIN Fentanyl Citrate 2,500 mcg in 250 mls @ 2.5 mls/hr 05/13/25 04:17 05/17/25 18:00 Sublimaze Inj 2,500 Mcg/250 Ml Bag IV 05/18/25 04:16 300 mcg/hr .Q24H PRN 30 mls/hr PER PROTOCOL Titration Protocol 25 MCG/HR Doxycycline Hyclate 100 mg/ 100 mls @ 100 mls/hr 05/16/25 00:30 05/17/25 11:39 Sodium Chloride IV 05/18/25 23:55 Infused BID KYA Infusion Heparin Sodium/Dextrose 25,000 unit in 250 mls @ 14.346 mls/hr 05/16/25 19:00 05/17/25 10:43 Heparin In D5w Ivpb IV 05/30/25 18:59 18 units/kg/hr .[id number] KYA 14.346 mls/hr Protocol Administration 18 UNITS/KG/HR Ipratropium [place] 0.5 mg 05/12/25 12:00 05/17/25 12:32 Ipratropium Rt 0.5 Mg/ 2.5 Ml Nebu INH 06/11/25 11:59 0.5 mg Q6HR KYA Administration Levetiracetam 800 mg 05/08/25 21:00 05/17/25 10:40 Levetiracetam Inj 100 Mg/Ml Vial 5ml IV 06/07/25 20:59 800 mg BID KYA Administration Ofloxacin 5 drop 05/09/25 10:15 05/17/25 09:58 Ofloxacin Op Racquel 0.3% 5 Ml Btl BOTH EARS 05/18/25 10:14 5 drops BID KYA Administration Olanzapine 5 mg 05/16/25 14:00 05/17/25 14:20 Olanzapine 5 Mg Tablet GT 06/15/25 13:59 5 mg TID KYA Administration Ondansetron HCl 4 mg 05/08/25 11:36 Ondansetron Inj 2 Mg/Ml Inj 2 Ml IVP 06/07/25 11:35 Q6HR PRN NAUSEA OR VOMITING Protocol Oxycodone HCl 10 mg 05/17/25 14:00 05/17/25 14:20 Oxycodone Hcl 5 Mg Ir Tab GT 05/22/25 13:59 10 mg TID KYA Administration Pantoprazole Sodium 40 mg 05/12/25 11:25 05/17/25 10:41 Pantoprazole Inj 40 Mg Vial IVP 06/11/25 11:24 40 mg QDAY KYA Administration Pharmacy Consult 1 each 05/08/25 16:12 Pharmacy To Consult Patient XX 06/07/25 16:11 PRN PRN CONSULT Phenobarbital Sodium 130 mg 05/17/25 14:00 05/17/25 14:19 Phenobarbital Inj 130 Mg/1 Ml Vial IVP 05/31/25 13:59 130 mg TID KYA Administration Polyethylene Glycol 17 gm 05/16/25 09:15 05/17/25 11:58 Polyethylene Glycol 17 Gm Packet PO 06/15/25 09:14 Not Given QDAY KYA Sodium Chloride 3 ml 05/12/25 09:33 Sodium Chloride Rt Racquel 0.9% 3 Ml Nebu INH 06/11/25 09:32 PRN PRN SOLN Sodium Chloride 3 ml 05/17/25 11:43 Sodium Chloride Rt Racquel 0.9% 3 Ml Nebu INH 06/16/25 11:42 PRN PRN SOLN Plan David Baltazar is 24 yr male with PMH of chronic mastoiditis (previously had tympanostomy tube placed for recurrent otitis media, now removed), seizure disorder, recurrent pneumonia, cerebral palsy, chronic PEG tube, and asthma who was brought into ED on 05/08/25 for ongoing fever of over 24 hours and reported episode of witnessed seizure by ED. Patient was septic. Neurology was consulted to for LP to rule out meningitis. #Mastoiditis #rule out Meningitis #Tonic clonic seizure #Hx seizures #Cerebral palsy On admission he was noted to have fever of 105, leukocytosis 16, tachycardia 176, and tachypnic 26. CT orbit sella showed b/L otitis externa and media. Reduced mastoid aeration on the left, b/L chlestatomas. He was started on vancomycin, ceftriaxone 2g BID, ampicillin 2g q4hr, and acyclovir. EEG was negative for seizure activity. LP culture was negative: clear, WBC 3, glucose 70, total protein 25. CSF Streptococcus pneumonia Ag negative , Streptococcus B antigen negative. CSF Neisseria meningitis B/E.coli K1 negative, Neisseria meningitis ACY/W135 Ag negative. CSF haemophilus influenzae B Ag negative. MRSA screen negative. Sputum culture thurman resistant Pseudomonas -started meropenam -Discontinued Levofloxacine and started on ear drops Ofloxacin -continue IV Keppra 800mg BID -IV Depakote 187mg q6hr. -seizure precautions -midazolam for breakthrough seizure -Consider trying Glycopyrrolate for secretions if needed. #Paraphimosis #Acute Kidney Injury #Anion Gap Metabolic Acidosis #Lactic acidosis #Elevated total creatine kinase from his hyperkinetic movements #Normocytic Anemia Primary care team to manage above conditions and ongoing care needs. The patient's management plan was discussed with my attending physician Dr. Lang. Zakiya Delacruz, PGY-2 Attending Provider Attestation/Addendum I personally have seen and examined the patient at the bedside and I agreed with resident's findings, assessment and plan of care. Continue to have fever spikes, fu with culture, continue with current mgt.
[2025-05-17] MEDS: PROPOFOL 1,000 MG IVPB 1,000 MG/100 ML VIAL 12.618 MG IV (22:30)
[2025-05-17 23:13] LABS: Partial Thromboplastin Time 28.3 Seconds (22.0-36.0)
[2025-05-18] VITALS (36 sets, daily range): BP systolic 92–151; BP diastolic 47–118; PULSE 83–162; RESP 9–39; TEMP 35.2–39.3; O2SAT 97–100; BMI 34.4
[2025-05-18] MEDS: HEPARIN SOD INJ 5000 UNIT/ML VIAL 6376 UNIT IV (00:26)
[2025-05-18] MEDS: fentaNYL 2,500 MCG/250 ML BAG 2,500 MCG/250 ML BAG 30 MCG IV ×2 (00:45→08:00)
[2025-05-18] MEDS: IBUPROFEN SUSP 100 MG/5 ML UDC GT (01:33)
[2025-05-18] MEDS: BACLOFEN 10 MG TABLET PO (01:33)
[2025-05-18] MEDS: Heparin/D5w 25K 250 ML Ivpb 25,000 UNIT/250 ML BAG 17.534 UNIT IV (03:30)
[2025-05-18 04:22] LABS: Base Excess 5 (-3-3); HCO3 29 mEq/L (20-26); Inspired Oxygen, FIO2 35 %; O2 Saturation 97 % (91-98); PCO2 44 mmHg (32.0-48.0); PO2 83 mmHg (83-108); pH, Arterial 7.43 (7.35-7.45)
[2025-05-18 04:30] LABS: Allen Test Performed/OK; Puncture Site Right Radial
[2025-05-18] MEDS: Magnesium Sulfate 4 GM Ivpb 4 GM/50 ML BAG IV (05:37)
[2025-05-18] MEDS: MEROPENEM INJ 1,000 MG in SODIUM CHLORIDE 0.9% (Popper) 50 ML 100 MG IV (05:49)
[2025-05-18] MEDS: PHENobarbital INJ 130 MG/1 ML VIAL IVP (05:49)
[2025-05-18] MEDS: MIDAZOLAM INJ 1 MG/ML VIAL 2 ML 2 MG IVP (05:49)
[2025-05-18] MEDS: oxyCODONE HCL 5 MG IR TAB 10 MG GT ×3 (05:49→21:30)
[2025-05-18 06:04] LABS: Basophils # (Auto) 0.1 Thou/mm3 (0.0-0.2); Basophils % (Auto) 0 % (0-2.5); Eosinophils # (Auto) 0.6 Thou/mm3 (0.0-0.5); Eosinophils % (Auto) 4 % (0-10); Hematocrit 25.4 % (41.0-53.0); Immature Granulocytes Auto 0.23 Thou/mm3 (0.00-0.00); Lymphocytes # (Auto) 4.8 Thou/mm3 (1.0-4.8); Lymphocytes % (Auto) 30 % (10-50); Mean Corpuscular HGB Conc 32.3 g/dl (31.0-37.0); Mean Corpuscular Hemoglobin 28.1 pg (25.0-35.0); Mean Corpuscular Volume 87 fL (80-100); Monocytes # (Auto) 2.2 Thou/mm3 (0.0-0.8); Monocytes % (Auto) 14 % (0-12); Neutrophils # (Auto) 8.2 Thou/mm3 (1.8-7.7); Neutrophils % (Auto) 51 % (37-80); Nucleated Red Blood Cell # 0.00 Thou/mm3 (0.00-0.00); Nucleated Red Blood Cell % 0 /100 WBC (0); Platelet Count 332 Thou/mm3 (140-440); RDW Standard Deviation 46.4 fL (35.1-43.9); Red Blood Count 2.92 Miln/mm3 (4.50-5.90); White Blood Count 16.1 Thou/mm3 (3.8-10.6)
[2025-05-18] MEDS: IPRATROPIUM RT 0.5 MG/ 2.5 ML NEBU INH ×3 (06:09→19:05)
[2025-05-18 06:10] LABS: Hemoglobin 8.2 g/dL (13.5-16.0)
[2025-05-18 06:45] LABS: Alanine Aminotransferase 57 U/L (10-49); Albumin, Serum 3.4 gm/dL (3.5-5.0); Albumin/Globulin Ratio 1.4 (1.2-2.2); Alkaline Phosphatase 131 U/L (46-116); Anion Gap 13 (7-16); Aspartate Amino Transferase 48 U/L (0-34); BUN/Creatinine Ratio 16 Ratio (12-20); Bilirubin,Total 0.3 mg/dL (0.3-1.2); Blood Urea Nitrogen 11 mg/dL (9-23); Calcium 8.4 mg/dL (8.3-10.6); Calcium (Corrected) 8.9 mg/dL (8.5-10.1); Carbon Dioxide 25.9 mMol/L (20.0-31.0); Chloride 100 mMol/L (98-107); Creatinine (Component) 0.7 mg/dL (0.6-1.3); Estimated Creatinine Clearance 139.2 mL/min (>60); Globulin 2.5 gm/dL (2.3-3.5); Glucose 105 mg/dL (74-106); Magnesium 1.8 mg/dL (1.6-2.6); Osmolality,Calculated 276 (275-295); Phosphorous 4.9 mg/dL (2.4-5.1); Potassium 4.7 mMol/L (3.4-5.1); Sodium 139 mMol/L (136-145); Total Protein 5.9 gm/dL (5.7-8.2); eGFR > 60 See Note
[2025-05-18] MEDS: PROPOFOL 1,000 MG IVPB 1,000 MG/100 ML VIAL 12.618 MG IV ×3 (07:00→21:39)
[2025-05-18] MEDS: levETIRAcetam INJ 100 MG/ML VIAL 5ML 800 MG IV ×2 (09:23→21:30)
[2025-05-18] MEDS: OFLOXACIN OP SOL 0.3% 5 ML BTL 5 DROP BOTH EARS (09:24)
[2025-05-18] MEDS: DOXYCYCLINE INJ 100 MG in SODIUM CHLORIDE 0.9% (POP) 100 ML IV (09:25)
[2025-05-18] MEDS: fentaNYL 2,500 MCG/250 ML BAG 2,500 MCG/250 ML BAG 15 MCG IV (09:29)
[2025-05-18 09:41] LABS: Partial Thromboplastin Time 131.4 Seconds (22.0-36.0)
[2025-05-18 10:24] LABS: Free T4 (Free Thyroxine) 1.87 ng/dL (0.89-1.76); Thyroid Stimulating Hormone 1.70 uIU/mL (0.55-4.78)
[2025-05-18] MEDS: MIDAZOLAM INJ 1 MG/ML VIAL 2 ML 4 MG IVP (10:37)
[2025-05-18] MEDS: RINGERS LACTATED 1000 ML 1,000 ML 100 ML IV ×2 (10:42→21:47)
[2025-05-18] MEDS: MIDAZOLAM/NS 100 MG IVPB 100 MG/100 ML BAG IV (10:42)
[2025-05-18] MEDS: PHENobarbital INJ 130 MG/1 ML VIAL 260 MG IVP ×3 (11:11→21:40)
--- NOTE | 2025-05-18 14:46 | ESPR_ITS ---
Subjective Subjective Interval history: abx changes and rataionale noted. fevers continue. family perspective noted. bc and csf both neg. Exam Vital Signs Temp Pulse Resp BP Pulse Ox O2 Del Method O2 Flow Rate 101.0 F H 88 14 118/69 99 Mechanical Ventilation 35 05/18/25 07:02 05/18/25 14:20 05/18/25 11:52 05/18/25 14:20 05/18/25 14:20 05/17/25 16:00 05/16/25 12:00 FiO2 35 05/18/25 14:20 Narrative Exam on vent . same settings as before. d/w icu team. seems non bacterial but can not prove that. repeated procal this am neg though Objective - Internal Medicine Labs 05/18/25 05:05 05/18/25 05:05 Labs: Laboratory Results - last 24 hr 05/17/25 05/17/25 05/18/25 17:05 22:37 04:09 WBC RBC Hgb Hct MCV MCH MCHC RDW Std Deviation Plt Count Neut % (Auto) Lymph % (Auto) [place] % (Auto) Eos % (Auto) Baso % (Auto) Neut # (Auto) Lymph # (Auto) [place] # (Auto) Eos # (Auto) Baso # (Auto) Immature Gran # (Auto) Absolute Nucleated RBC Immature Gran % Nucleated RBC % APTT 51.7 H D 28.3 D Puncture Site Right Radial ABG pH 7.43 ABG pCO2 44 ABG pO2 83 ABG HCO3 29 H ABG O2 Saturation 97 ABG Base Excess 5 H FiO2 35 Sodium Potassium Chloride Carbon Dioxide Anion Gap BUN Creatinine Estim Creat Clear Calc eGFR BUN/Creatinine Ratio Glucose Calculated Osmolality Calcium Corrected Calcium Phosphorus Magnesium Total Bilirubin AST ALT Alkaline Phosphatase Total Protein Albumin Globulin Albumin/Globulin Ratio TSH Free T4 05/18/25 05/18/25 05:05 07:11 WBC 16.1 H RBC 2.92 L Hgb 8.2 L Hct 25.4 L MCV 87 MCH 28.1 MCHC 32.3 RDW Std Deviation 46.4 H Plt Count 332 D Neut % (Auto) 51 Lymph % (Auto) 30 [place] % (Auto) 14 H Eos % (Auto) 4 Baso % (Auto) 0 Neut # (Auto) 8.2 H Lymph # (Auto) 4.8 Bee # (Auto) 2.2 H Eos # (Auto) 0.6 H Baso # (Auto) 0.1 Immature Gran # (Auto) 0.23 H Absolute Nucleated RBC 0.00 Immature Gran % 1 H Nucleated RBC % 0 APTT 131.4 H* D Puncture Site ABG pH ABG pCO2 ABG pO2 ABG HCO3 ABG O2 Saturation ABG Base Excess FiO2 Sodium 139 Potassium 4.7 D Chloride 100 Carbon Dioxide 25.9 Anion Gap 13 BUN 11 Creatinine 0.7 Estim Creat Clear Calc 139.2 eGFR > 60 BUN/Creatinine Ratio 16 Glucose 105 Calculated Osmolality 276 Calcium 8.4 Corrected Calcium 8.9 Phosphorus 4.9 Magnesium 1.8 Total Bilirubin 0.3 AST 48 H ALT 57 H Alkaline Phosphatase 131 H Total Protein 5.9 Albumin 3.4 L Globulin 2.5 Albumin/Globulin Ratio 1.4 TSH 1.70 Free T4 1.87 H ABG Interpretation ABG results: 05/09/25 05/09/25 05/09/25 11:56 13:40 18:50 ABG pH 7.40 7.27 L D 7.28 L ABG pCO2 40 43 55 H D ABG pO2 131 H 53 L* D 70 L ABG HCO3 25 20 26 ABG O2 Saturation 99 H 81 L 92 ABG Base Excess 0 -7 L -2 05/10/25 05/11/25 05/12/25 00:14 05:06 01:18 ABG pH 7.35 7.33 L 7.39 ABG pCO2 42 D 54 H D 48 ABG pO2 103 D 93 94 ABG HCO3 23 28 H 29 H ABG O2 Saturation 99 H 98 98 ABG Base Excess -3 2 3 05/12/25 05/12/25 05/13/25 03:58 11:50 05:10 ABG pH 7.46 H 7.39 7.19 L* D ABG pCO2 41 48 60 H D ABG pO2 105 58 L* D 114 H D ABG HCO3 29 H 29 H 23 ABG O2 Saturation 99 H 90 L 98 ABG Base Excess 5 H 4 H -6 L 05/17/25 05/18/25 01:30 04:09 ABG pH 7.38 7.43 ABG pCO2 46 44 ABG pO2 90 83 ABG HCO3 27 H 29 H ABG O2 Saturation 98 97 ABG Base Excess 2 5 H Assessment & Plan A&P Narrative viral findings on pcr testing at health dept. resp failure it is expected that abx will be given in this setting. but it is ok to stop them too. d/w primary team. they stopped a bunch of rx with the possibility of drug fever Time Spent With Patient Time: Total time spent is greater than 50% in coordination of care (as documented) at patient's floor/unit and/or counseling patient:
--- NOTE | 2025-05-18 14:46 | ESPR_ITS ---
<Statement entered by Ronnell Orozco MD - 05/18/25 15:16> Patient was seen and examined at the bedside in ICU. Overnight, patient had a fever spike of 102. Patient was weaned off sedation from propofol and fentanyl to try extubation. Feeding tubes were held. Patient had copious amount of secretions around the tube therefore extubation was deferred due to high risk of reintubation. Patient has been having a urine output more than 300 cc/h therefore fluid resuscitation was started to match fluid losses. Fever spike was likely considered to be noninfectious as blood cultures have been coming negative x 48 hours therefore we stopped meropenem and doxycycline. Zyprexa was also stopped due to concern for drug fever likely noninfectious. Will continue with propofol and fentanyl for sedation. Phenobarb was increased to 260 mg Q6 hourly and added Versed drip 4 mg/h for agitation. Heparin drip was discontinued given concern for gross hematuria. Will perform another Doppler in 2 to 3 days to evaluate for clot resolution. Recommended no IV lines or blood pressure cuff in the left upper extremity. Family was updated regarding patient's current condition. They were informed that patient still have time for improvement and usually we consider doing tracheostomy once patient has passed window of total 14 days with intubation. Additionally, patient's family was notified that patient has limited options in terms of antibiotics moving forward as we gave him meropenem which is broad-spectrum. If he continues to develop these recurrent infections he will require ceftazidime or ceftaroline if he is not meropenem resistant. All labs and orders were reviewed. I discussed and supervised with the contracts intern physician who took care of this patient. I personally saw and examined the patient. I agree with most of the assessment and plan. Disclaimer: Despite multiple revisions, due to the dictation software being used, the document bellow may not be free of grammatical errors including phonetic/typographic errors. However, this does not deter from our commitment to providing health care in the patient's best interest in mind. Plan of care discussed with attending Physician Dr.Ahmad Ronnell Orozco MD PGY-3 Documentation for date of: 05/18/25 Subjective Subjective Interval history: 05/18/2025: Overnight, patient remained on Propofol 30 and Fentanyl 300, with Versed 2mg dose x1. Magnesium was given for bronchodilation. Ibuprofen given for fever. Plan was to wean off sedation and extubate the patient today, but due to significant oral secretions and concerns about potential aspiration and the patient's inability to protect the airway, the decision was made to keep the patient intubated for now. A spontaneous breathing trial was attempted, and the patient?s lungs are functioning well. However, given the ongoing agitation, sedation could not be reduced. Phenobarbital dose was increased from 130mg to 260mg every 6 hours, and a 4mg Versed drip was started. Olanzapine was discontinued, and both doxycycline and meropenem were stopped due to concerns of a potential drug reaction, as fever spikes worsened after the initiation of meropenem on 05/12. Heparin was restarted yesterday for a DVT in the left brachial vein but was discontinued this morning due to ongoing hematuria without clots. A follow-up Doppler will be performed in 2-3 days to assess whether the DVT has resolved. Patient?s urine output was 2240cc over the past 12 hours. Maintenance fluids were started at 100ml/hr to manage the increased urine output. ICU team spoke with the patient's mother today, providing updates on the changes in the medication regimen and the patient's current status. Informed her that this is Day 9 of intubation, and there are four more days to attempt extubation before considering a tracheostomy. TSH, EBV, and CMV panels were ordered for further evaluation. 05/17/2025: Overnight,patient was placed on droplet precautions due to positive rhinovirus and human metapneumovirus. Patient received a 4 mg dose of Versed for agitation. Heparin drip was initiated for an upper extremity DVT but was paused at 12:15 AM due to hematuria without clots. Urine output was approximately 170 cc/hr, and the patient had two bowel movements since yesterday. Today, the patient underwent bronchoscopy and tolerated the procedure well, with stable gas exchange observed. To facilitate weaning off fentanyl and propofol, the patient was started on phenobarbital 13 mg and oxycodone 10 mg scheduled TID. Will consider adding Precedex to further support the weaning process and work towards extubation tomorrow. Heparin drip for the DVT has been restarted as the hematuria is improving. Additionally, 1L of IV LR was administered to address hyperkalemia and hyperphosphatemia on AM labs. Plan is to remove the Hawkins catheter tomorrow, 05/18. 05/16/2025: Overnight, patient experienced intermittent spasmodic jerking episodes, lasting about 15-20 minutes at a time. During these episodes, the patient becomes tachycardic and febrile. Baclofen 10mg was administered, followed by a single dose of midazolam 2mg IV for agitation. Patient remains on fentanyl 100 mcg/hr and propofol 50 mcg/kg/min for sedation. Patient spiked a fever of 102.6?F, for which IV tylenol was given. A subsequent temperature of 102.4?F was treated with ibuprofen. The Hawkins catheter was replaced overnight. Urine output over the past 12 hours was approximately 850 mL. Patient has not had a bowel movement since 05/13, will add miralax. Due to persistent fevers, doxycycline 100 mg IV BID was initiated for gram-positive cocci coverage. Blood cultures will be repeated, and a right upper quadrant ultrasound has been ordered to evaluate for potential hepatobiliary source of infection. Liver enzymes are improved from yesterday. Planned Interventions: Initiate phenobarbital 130 mg IV every 6 hours and begin weaning off propofol. Increased olanzapine from 5 mg GT QHS to 5 mg TID. Perform bilateral upper extremity ultrasound to assess for DVT. Repeat UA, CXR, CT head and abd/pelvis. Check lipase levels. 05/15/2025: Overnight, the patient developed a fever of 101.8?F. PO acetaminophen was switched to IV formulation by the night team. Temperature improved to 99.5?F by morning. Urine output over the past 12 hours was approximately 620 cc. Liver enzymes continue to trend upward, will hold acetaminophen for now. Patient was weaned off midazolam infusion today. Plan is to begin tapering propofol next. Antipsychotic regimen was adjusted from quetiapine to olanzapine to minimize risk of QTc prolongation. Repeat chest X- ray showed improvement in bilateral pneumonia. Bronchoscopy was performed yesterday (05/14). Repeat procedure is being considered for 05/16. Increase in WBCs and fever likely from bronchoscopy. 05/14/2025: No acute events overnight. Stable on versed/ fentanyl and propofol. No vasopressor requirements. Patient underwent bronchoscopy, well tolerated. Gas exchange stable. PPeak remains in mid20s. Patient on minimal FiO2 and PEEP now. Good ventilator synchrony. Continues to have heavy drooling and output form upper airway. Minimal from ETT now. 05/13/2025: Patient increased FiO2 overnight to 100%. Difficulty managing secretions. Bleeding from nose and plugging. Agitated with maximal dose of precedex and benadryl pushes. Patient with low grade temp to 100.4F. Mild secretions from ETT, pink/ frothy. 05/12/2025: Patient weaned down on sedation. Tmax 102 degrees at 1600 hrs. 05/11. Patient developed mild hepatitis, likely response to medications, will monitor. Patient successfully weaned off of propofol and fentanyl, Precedex initiated. Patient extubated, placed on high flow. Continues to have high secretions, treated with chest PT, oral suctioning as needed, ipratropium breathing treatments scheduled. Patient notably agitated, treating with Benadryl as needed and Precedex drip. Will continue to try and decrease sedation while maintaining patent airway. Sputum culture grew thurman resistant Pseudomonas, meropenem initiated. Will continue Levaquin for now pending cultures. Ear cultures taken. Patient maintaining good urine output, will replete volume if patient exceeds greater than 2 L output. 05/11/2025: Overnight, the patient became increasingly agitated and was observed biting on the endotracheal tube. In response, propofol was increased from 40 mcg/kg/min to 45 mcg/kg/min, and fentanyl was increased from 200 mcg/hr to 250 mcg/hr. The plan is to attempt weaning the patient off sedation today, and work towards extubation. A lumbar puncture was performed, which showed 3 WBCs. Infection from meningitis is less likely, but culture results are pending for confirmation. Today, the patient has been experiencing a low-grade fever, with the highest recorded temperature being 100.4?F. After the Hawkins catheter was placed, the patient had 1700 cc of urine output over the past 12 hours. Followed up with Dr. Jacky Cuadra (ENT in [place]). Dr. Cuadra stated that there is nothing additional he could identify on the CT imaging that the radiologist has not already seen. And that if there was something it would likely be surgical and he does not perform surgeries. He recommended covering for Pseudomonas with clindamycin and Unasyn. The plan is to start levofloxacin for Pseudomonas coverage as well. Additionally, Dr. Cuadra suggested culturing the ear. 05/10/2025: Patient remained sedated with propofol and fentanyl throughout the night, maintaining adequate sedation levels. Around 2 AM, the propofol dose was reduced due to MAP in the 60s. 1L of LR was administered on top of the ongoing IV maintenance fluids at 100cc/hr. Following this, the MAP remained stable above 65. At 6:50 PM on 05/09, an ABG revealed a pH of 7.28, pCO2 of 55, and pO2 of 70, indicative of respiratory acidosis. Patient was given 5 grams of magnesium and 15 mg of albuterol over the course of an hour to promote bronchodilation. Magnesium also needed to be repleted. A repeat ABG showed normalization of the respiratory parameters. Patient's Hawkins catheter was removed and replaced with a QiVi catheter overnight per the patient's father?s request. However, the patient developed urinary retention. A bladder scan performed at 6 AM showed 295cc of retained urine, and a subsequent scan in the afternoon revealed 439cc. Primary team consulted ICU team. On 05/09, two rapid responses were initiated due to the patient?s escalating agitation and anxiety. Patient appeared to be in significant pain from his paraphimosis. The primary team consulted the ICU for further management, as the patient had already received diazepam, haldol, versed, and dilaudid earlier that morning, with inadequate relief. Additionally, there was concern over a decline in his pO2 levels. The initial ABG at 11:56 showed: pH 7.40, pCO2 40, pO2 131, HCO3 25. A repeat ABG at 13:40 revealed: pH 7.27, pCO2 43, pO2 53, HCO3 20. Upon evaluation by the ICU team, the patient was noted to be extremely agitated and wearing an oxygen mask, with audible gurgling sounds coming from the upper airway, raising concern for potential airway compromise. Given the risk of inadequate airway protection, the decision was made to transfer the patient to the ICU for intubation and further management. In the ICU, the patient was intubated. Urology, Dr. Vargas, was consulted earlier in the day. He was able to successfully perform a reduction of the paraphimosis. Telemetry Course: Patient was admitted to telemetry for further workup and management of sepsis of unknown source, with concern for meningitis. Empiric broad-spectrum antibiotic and antiviral therapy were started, consisting of ceftriaxone 2g IV twice daily, vancomycin (pharmacy to dose), ampicillin, and acyclovir. Neurology was consulted. CT of the orbit, sella, and inner ear was ordered given the patient?s history of acute mastoiditis, which showed severe bilateral chronic mastoiditis, bilateral otitis externa, bilateral otitis media, and bilateral cholesteatomas in the attics. CT head was also performed and was negative for acute hemorrhage, mass effect, or midline shift. Findings included prominent sphenoid, ethmoid, and maxillary antral sinusitis, bilateral chronic mastoiditis, bilateral otitis media, and opacification in the bilateral attics. For the patient?s seizures, his home medications of valproic acid and levetiracetam were restarted. Orders for midazolam and Haldol were placed as needed for breakthrough seizures and agitation. An ice pack was ordered for his paraphimosis. Infectious disease was also consulted. History of Present Illness: 24-year-old male with a past medical history significant for cerebral palsy, asthma, seizure disorder, chronic mastoiditis (previously treated with tympanostomy tube placement for recurrent otitis media, now removed), recurrent pneumonia, and chronic PEG tube dependence, presented to the ED on 05/08/2025 with a fever lasting over 24 hours. The patient also had a witnessed seizure episode lasting 5-10 seconds, characterized by tonic-clonic activity confined to the left side of the body. ED Course: -Initial vitals were: BP 122/84, HR 176, RR 26, T 105F, O2 sat 96% on room air. -Labs significant for: CBC showed a WBC of 16.3. CMP showed Na 148, K 5.2, Cl 107, bicarbonate 18.7, anion gap 22, creatinine 1.3 (baseline 0.7), lactic acid 3.2, alkaline phosphatase 120, LDH 352, total CK 1048, procalcitonin: 0.14. Urinalysis negative. Influenza A/B testing was negative. -Imaging included: EKG showed supraventricular tachycardia of HR [address] and T-wave abnormality. CXR showed no aspiration pneumonia but was noted to be of poor inspiratory effort. CT CAP w/o contrast seemed to show no gross infiltrates or other notable findings but was noted to be severely degraded by patient motion. -In the ED, patient was given acetaminophen 975 mg, ceftriaxone 1 gram IV, midazolam 2 mg IV x1, albuterol 2.5 mg, Zosyn 3.375 gram, 2 L NS fluid infusion, and 1 L LR fluid infusion. In the ED, the patient was agitated and pulled out his IV. Attempts at peripheral access were unsuccessful, and a right femoral central line was placed. Exam Vital Signs Temp Pulse Resp BP Pulse Ox O2 Del Method O2 Flow Rate 101.0 F H 88 14 118/69 99 Mechanical Ventilation 35 05/18/25 07:02 05/18/25 14:20 05/18/25 11:52 05/18/25 14:20 05/18/25 14:20 05/17/25 16:00 05/16/25 12:00 FiO2 35 05/18/25 14:20 Narrative Exam Physical Exam General: sedated and intubated, nonverbal at baseline, not in acute distress. Head: Normocephalic, atraumatic. Eyes: PERRL. Anicteric. Bilateral lateral eye scleral hemorrhage. Mouth/Throat: Poor dentition. Oral mucosa moist. No obvious lesions in oropharynx. Cough reflex intact. ETT in place. Cardiovascular: Regular rate and rhythm, no murmur. Respiratory: Rhonchi to auscultation in bilateral lung thompson (right more than left). Gastrointestinal: PEG tube in place. Soft, non-distended, no guarding or rebound tenderness. Genitourinary: Decrease swelling of glans penis. Hawkins in place. Extremities: Contracted and swollen hands. No edema, cyanosis, mottling, clubbing. 2+ radial pulse bilaterally, 2+ posterior tibial pulse bilaterally. Skin: Rash near buttock area. Old IV site on left medial upper arm with erythema and old adhesive outline, no purulent drainage. Objective Labs 05/30/25 04:37 05/30/25 04:37 Labs: Laboratory Results - last 24 hr 05/17/25 05/17/25 05/18/25 17:05 22:37 04:09 WBC RBC Hgb Hct MCV MCH MCHC RDW Std Deviation Plt Count Neut % (Auto) Lymph % (Auto) Cottle % (Auto) Eos % (Auto) Baso % (Auto) Neut # (Auto) Lymph # (Auto) Cottle # (Auto) Eos # (Auto) Baso # (Auto) Immature Gran # (Auto) Absolute Nucleated RBC Immature Gran % Nucleated RBC % APTT 51.7 H D 28.3 D Puncture Site Right Radial ABG pH 7.43 ABG pCO2 44 ABG pO2 83 ABG HCO3 29 H ABG O2 Saturation 97 ABG Base Excess 5 H FiO2 35 Sodium Potassium Chloride Carbon Dioxide Anion Gap BUN Creatinine Estim Creat Clear Calc eGFR BUN/Creatinine Ratio Glucose Calculated Osmolality Calcium Corrected Calcium Phosphorus Magnesium Total Bilirubin AST ALT Alkaline Phosphatase Total Protein Albumin Globulin Albumin/Globulin Ratio TSH Free T4 05/18/25 05/18/25 05:05 07:11 WBC 16.1 H RBC 2.92 L Hgb 8.2 L Hct 25.4 L MCV 87 MCH 28.1 MCHC 32.3 RDW Std Deviation 46.4 H Plt Count 332 D Neut % (Auto) 51 Lymph % (Auto) 30 Cottle % (Auto) 14 H Eos % (Auto) 4 Baso % (Auto) 0 Neut # (Auto) 8.2 H Lymph # (Auto) 4.8 Cottle # (Auto) 2.2 H Eos # (Auto) 0.6 H Baso # (Auto) 0.1 Immature Gran # (Auto) 0.23 H Absolute Nucleated RBC 0.00 Immature Gran % 1 H Nucleated RBC % 0 APTT 131.4 H* D Puncture Site ABG pH ABG pCO2 ABG pO2 ABG HCO3 ABG O2 Saturation ABG Base Excess FiO2 Sodium 139 Potassium 4.7 D Chloride 100 Carbon Dioxide 25.9 Anion Gap 13 BUN 11 Creatinine 0.7 Estim Creat Clear Calc 139.2 eGFR > 60 BUN/Creatinine Ratio 16 Glucose 105 Calculated Osmolality 276 Calcium 8.4 Corrected Calcium 8.9 Phosphorus 4.9 Magnesium 1.8 Total Bilirubin 0.3 AST 48 H ALT 57 H Alkaline Phosphatase 131 H Total Protein 5.9 Albumin 3.4 L Globulin 2.5 Albumin/Globulin Ratio 1.4 TSH 1.70 Free T4 1.87 H ABG Interpretation ABG results: 05/09/25 05/09/25 05/09/25 11:56 13:40 18:50 ABG pH 7.40 7.27 L D 7.28 L ABG pCO2 40 43 55 H D ABG pO2 131 H 53 L* D 70 L ABG HCO3 25 20 26 ABG O2 Saturation 99 H 81 L 92 ABG Base Excess 0 -7 L -2 05/10/25 05/11/25 05/12/25 00:14 05:06 01:18 ABG pH 7.35 7.33 L 7.39 ABG pCO2 42 D 54 H D 48 ABG pO2 103 D 93 94 ABG HCO3 23 28 H 29 H ABG O2 Saturation 99 H 98 98 ABG Base Excess -3 2 3 05/12/25 05/12/25 05/13/25 03:58 11:50 05:10 ABG pH 7.46 H 7.39 7.19 L* D ABG pCO2 41 48 60 H D ABG pO2 105 58 L* D 114 H D ABG HCO3 29 H 29 H 23 ABG O2 Saturation 99 H 90 L 98 ABG Base Excess 5 H 4 H -6 L 05/17/25 05/18/25 01:30 04:09 ABG pH 7.38 7.43 ABG pCO2 46 44 ABG pO2 90 83 ABG HCO3 27 H 29 H ABG O2 Saturation 98 97 ABG Base Excess 2 5 H Quality Measures Quality Measures VTE prophylaxis (SCDs) and sepsis Current suspected stage: sepsis Possible source: pulmonary Blood cultures ordered: yes Antibiotic ordered: Yes Assessment & Plan Assessment Current Active Medications: Generic Name Dose Route Start Last Admin Trade Name Freq PRN Reason Stop Dose Admin Acetaminophen 650 mg 05/14/25 05:13 05/14/25 18:15 Acetaminophen 325 Mg Tablet PO 06/13/25 05:12 650 mg On Hold: 05/14/25 23:01 Q6HR PRN Administration Fever >100.4 Albuterol/Ipratropium 3 ml 05/09/25 18:19 05/12/25 03:42 Albuterol/Ipratropium (Duoneb) Rt Racquel 3 Ml Nebu INH 06/08/25 18:18 3 ml Q2HR PRN Administration SHORTNESS OF BREATH OR WHEEZE Baclofen 10 mg 05/16/25 00:26 05/18/25 01:33 Baclofen 10 Mg Tablet PO 06/15/25 00:25 10 mg TID PRN Administration Spasms Valproic Acid 187.5 mg/ Sodium 51.875 mls @ 51.875 mls/hr 05/09/25 18:00 05/18/25 13:52 Chloride IV 06/07/25 17:59 Infused Q6HR KYA Infusion Protocol Propofol 1,000 mg in 100 mls @ 2.103 mls/hr 05/13/25 04:16 05/18/25 14:00 Diprivan Ivpb IV 06/12/25 04:15 30 mcg/kg/min .Q24H PRN 12.618 mls/hr PER PROTOCOL Titration Protocol 5 MCG/KG/MIN Fentanyl Citrate 2,500 mcg in 250 mls @ 2.5 mls/hr 05/18/25 07:25 05/18/25 14:00 Sublimaze Inj 2,500 Mcg/250 Ml Bag IV 05/23/25 07:24 150 mcg/hr .Q24H PRN 15 mls/hr PER PROTOCOL Titration Protocol 25 MCG/HR Lactated Ringer's 1,000 mls @ 100 mls/hr 05/18/25 10:07 05/18/25 10:42 Lactated Ringers IV 06/17/25 10:06 100 mls/hr .Q10H KYA Administration Midazolam HCl 100 mg in 100 mls @ 4 mls/hr 05/18/25 10:33 05/18/25 14:00 Versed Pf Inj In Ns Premix IV 05/23/25 10:32 4 mg/hr .Q24H PRN 4 mls/hr PER PROTOCOL Titration Protocol 4 MG/HR Ipratropium [place] 0.5 mg 05/12/25 12:00 05/18/25 11:51 Ipratropium Rt 0.5 Mg/ 2.5 Ml Nebu INH 06/11/25 11:59 0.5 mg Q6HR KYA Administration Levetiracetam 800 mg 05/08/25 21:00 05/18/25 09:23 Levetiracetam Inj 100 Mg/Ml Vial 5ml IV 06/07/25 20:59 800 mg BID KYA Administration Ondansetron HCl 4 mg 05/08/25 11:36 Ondansetron Inj 2 Mg/Ml Inj 2 Ml IVP 06/07/25 11:35 Q6HR PRN NAUSEA OR VOMITING Protocol Oxycodone HCl 10 mg 05/17/25 14:00 05/18/25 13:49 Oxycodone Hcl 5 Mg Ir Tab GT 05/22/25 13:59 10 mg TID KYA Administration Pantoprazole Sodium 40 mg 05/12/25 11:25 05/18/25 09:23 Pantoprazole Inj 40 Mg Vial IVP 06/11/25 11:24 40 mg QDAY KYA Administration Pharmacy Consult 1 each 05/08/25 16:12 Pharmacy To Consult Patient XX 06/07/25 16:11 PRN PRN CONSULT Phenobarbital Sodium 260 mg 05/18/25 10:35 05/18/25 11:11 Phenobarbital Inj 130 Mg/1 Ml Vial IVP 06/01/25 05:44 260 mg Q6H KYA Administration Polyethylene Glycol 17 gm 05/16/25 09:15 05/18/25 09:35 Polyethylene Glycol 17 Gm Packet PO 06/15/25 09:14 Not Given QDAY KYA Sodium Chloride 3 ml 05/12/25 09:33 Sodium Chloride Rt Racquel 0.9% 3 Ml Nebu INH 06/11/25 09:32 PRN PRN SOLN Sodium Chloride 3 ml 05/17/25 11:43 Sodium Chloride Rt Racquel 0.9% 3 Ml Nebu INH 06/16/25 11:42 PRN PRN SOLN Plan 24-year-old male with cerebral palsy, asthma, seizure disorder, chronic mastoiditis, recurrent pneumonia, and chronic PEG tube dependence presented with fever and seizure, was admitted for sepsis workup, and later transferred to the ICU for intubation due to concerns about airway protection. Neurology #?Drug fever DDx: neuroleptic malignant syndrome vs serotonin syndrome vs propofol infusion syndrome vs paroxysmal sympathetic hyperactivity vs infection. - Neuroleptic malignant syndrome: patient was treated with haloperidol on admission and olanzapine recently. While CK levels were elevated, they were not sufficiently high to strongly suggest NMS. - Serotonin syndrome: no clear indications of hyperreflexia or clonus observed. Presence of agitation and tachycardia, in the context of propofol use, still warrants consideration. - Propofol infusion syndrome: combination of high doses of propofol and fentanyl can lead to propofol-related syndrome, especially given the fever, tachycardia, and hyperkinetic movements. - Paroxysmal sympathetic hyperactivity: fluctuations in blood pressure, heart rate, and respiratory rate with spasmodic jerks may also point to underlying sympathetic dysregulation, however no known history of traumatic brain injury. - Infection: blood cultures have been negative. Lumbar puncture was negative for meningitis. UAs have been negative. Diagnostic Test: - Fever spikes became more frequent after meropenem was started on 05/12. Fever improved after discontinuing meropenem. - Clinical signs: fever spikes as high as 102.8F, associated with tachycardia, hypertension, tachypnea, agitation, and spasmodic movements. - Eosinophil count mildly elevated (0.6), which may indicate drug-induced fever, although patient has no rash. - CK 1048 --> 3743 --> 1654 --> 338 --> 363. Treatment Plan - Discontinued Meropenem due to possible drug-induced fever. - Discontinued Olanzapine. - Ibuprofen as needed for fevers. - Gradually wean sedation as patient stabilizes and agitation resolves. #Agitated delerium Patient was extremely agitated before ICU admission, likely due to pain from paraphimosis. Patient initially sedated with propofol and fentanyl, titrated to Precedex with Benadryl before extubation. Patient failed extubation and was intubated on 05/12. Propofol and fentanyl was restarted. Diagnostic Test: - 05/18 AM: RASS was +1: anxious, apprehensive but movements not aggressive or vigorous. - TG levels on 05/17: 312. - CK levels on 05/17: 363. Treatment Review (completed) - Versad 5mg/h was tapered off on 05/15. - Phenobarbital 130 mg IV Q6HR 05/16-05/18. - Olanzapine 5mg daily 05/13-05/16. - Olanzapine 5mg TID 05/16-05/18. Treatment Plan: - Increase Phenobarbital dose to 260 mg IV Q6H. - Continued Oxycodone 10mg GT TID. - Currently on Propofol 35 mcg/kg/min and Fentanyl 150 mcg/h. - Started Midazolam 4mg gtt. - Start titrating down propfol and fentanyl as tolerated. - If continues to be on Propofol, recheck TG on 05/20 (every 72 hours). #History of seizures #Cerebral palsy DDx: likely secondary to sepsis vs electrolyte imbalances vs medication non- compliance or inadequate medication dosing vs hypoglycemia vs dehydration. Diagnosis: - Temperature of 105F on admission. - Sodium 148 and potassium 5.2 on admission. - EEG unremarkable Treatment Plan: - Continue valproic acid 187.5 mg Q6H. - Continue levetiracetam 800mg BID. - Adjust seizure medications if breakthrough seizures persist. - Seizure precautions. - Aspiration precautions. Cardiovascular #Sinus tachycardia DDx: pain vs agitation vs dehydration vs fevers Diagnostic Test: - Increase UOP in past three days: 3065cc (05/18), 3175cc (05/17), and 2455cc (05/16). - Fever spikes up to 102.8F. Treatment Plan: - No specific treatment required at this time. Will treat underlying cause. - Continue close cardiac monitoring. - Monitor electrolytes and replete as needed. - Maintain Mg > 2 and K > 4 to reduce arrhythmia risk. Respiratory #Failed extubation 05/12 #Acute hypoxic respiratory failure Diagnostic Test: - CXR 05/11: Mild bilateral perihilar pneumonia. To assess for ventilator associated pneumonia. Not much change from 05/09 CXR. - Pseudomonas from ETT secretions previously (05/09). - CXR 05/15: improvement in bilateral pneumonia. - CXR 05/16: worsening diffuse severe left lung pneumonia. - ABG 05/18: pH 7.43, pCO2 44, pO2 83 and HCO3 29. Treatment Review (completed): - Patient extubated to [facility] 05/12, chest film with centro-bronchovascular congestion and multifocal pneumonia. - Reintubated overnight 05/13- VC/AC PPeak 20 PEEP 5 FiO2 40%. - Patient underwent bronchoscopy on 05/14 and 05/17 for secretions, well tolerated. Treatment Plan: - Bronchoscopy culture pending. - Chest physiotherapy BID. - Ipratropium 0.5 mg every 6 hours. - Continue with mechanical ventilation. #Bronchospasm #History of asthma Diagnostic Test: - Although the patient has a history of asthma, the bronchospasm is most likely from the irritant effect of blood in the airway. A small amount of blood, which was likely from dryness of the nasal mucosa, was suctioned out during intubation. Treatment Plan: - Magnesium for bronchodilator effect as needed. - Albuterol as needed. GI, , F/E/N #Chronic PEG tube dependence Treatment Plan: - Jevity 1.5 at 40 ml/hr x 24 hrs via PEG tube by pump (goal). If no IV fluids, water flushes of 35 ml/hr. - ProStat 30ml BID via PEG tube. - Appreciate loan collector recommendations. - Bowel movements resumed after adding miralax. - Triglyceride level 05/14 - 290; 05/17 - 312. - Repeat TG levels every 72 hours when on Propofol, which should be discontinued if triglyceride levels reach or exceed 400 mg/dL to prevent hypertriglyceridemia-associated complications. Next check 05/20 is patient remains on propofol. #Hepatitis (downtrending) DDx: muscle injury vs hemolytic anemia vs myocarditis vs medication induced - Muscle injury/rhabdomyolysis - supported by rising CK and normal ALT. - Hemolytic anemia - possible source of AST from RBC breakdown. - Myocarditis - less likely given normal troponin. - Patient received multiple medications that could potentially cause hepatotoxicity in ICU. -Initial resolving, WNL LFTs 05/11, slight increase 05/12 Diagnostic Test: - AST 199 --> 56 --> 55 --> 48. - ALT 152 --> 93 --> 74 --> 57. - CK 3743 --> 1654->338 --> 363. - LDH 352 --> 332 --> 350. - Troponin <0.002. - Gallbladder ultrasound 05/16: Normal gallbladder, no gallstones. Fatty infiltration throughout the liver. - Lipase 05/16: 41 wnl. Treatment Plan: - Continue daily LFTs. - Avoid acetaminophen unless fever exceeds 101.0?F or Ibuprofen as alternative. - Will reassess if transaminases continue to rise or clinical status changes. #Hypoalbuminemia (low, stable) DDx: acute hepatitis vs nephrotic syndrome vs sepsis vs malnutrition vs diluational. Diagnostic Test: - UA had urine proteins 1+. - Albumin 4.9 -->3.3 -->2.8 --> 3.2 --> 3.4. - Hgb and WBC also decreased with albumin, likely diluational. Treatment Plan: - Monitor LFTs, INR, and bilirubin. - Maintain on PEG tube feeds per loan collector recommendations. #Acute urinary retention (resolved) Treatment Plan - Maintain hawkins catheter. Monitor UOP. - Monitor urine output, replace fluid if needed. - Hawkins changed and replaced on 05/16. #Paraphimosis (resolved) #Balanitis (resolved) Diagnostic Test: - Edema and tenderness of the glans penis. - Swelling of the distal retracted foreskin. - Constricting band of tissue proximal to the head of the penis at the coronal sulcus. - Hawkins was removed on 05/09 and transitioned to Oivi external urinary catheter. Discussed with family about the need to reinsert ahwkins due to the patient's acute urinary retention. Family were in agreement with this plan. Hawkins was reinserted on 05/10 due to urinary retention. - S/p reduction of the paraphimosis by Dr. Vargas on 05/09. Treatment Plan: - Control patient's pain with sedation. - Monitor urine output. - Remove hawkins when appropriate. Renal #Hyperkalemia (resolved) #Hyperphosphatemia (resolved) DDx: acute kidney injury vs hemolysis vs rhabdomyolysis vs tumor lysis syndrome. Diagnostic Test: - Potassium 5.2. - Phosphorus 5.2. - CK 363. - LDH 350. - Uric acid 3.5. - Hemoglobin 8.9. - Cr 0.6. Treatment Plan: - Continue maintenance fluids. - Monitor BMP and phosphorus. - Monitor potassium levels to avoid arrhythmias. #Acute kidney injury (resolved) DDx: hypotension, dehydration, or vasodilation from sepsis. Diagnositc Test: - Creatinine 1.3 (baseline: 0.7) Treatment Plan: - Continue with free water flushes. - Daily renal panel to trend BUN, Cr, and electrolytes. - Avoid nephrotoxins. - Renally dose meds as appropriate. - Strict I&Os, monitor urine output closely. - Monitor for signs of volume overload or uremic symptoms. #Anion Gap Metabolic Acidosis (resolved) #Lactic acidosis (resolved) DDx: seizures vs sepsis vs acute kidney injury vs hypoperfusion. Likely from seizures as patient has no signs of systemic hypoperfusion such as skin mottling, decreased cap refills. Diagnostic Test: - Admission anion gap 22, lactic acid 16.0, bicarbonate 18.7. Treatment Plan: - Recheck LA as needed. #Rhabdomyolysis (resolving) DDx: seizures vs hyperthermia vs infectious myositis. Diagnostic Test: - CK 1048 --> 3743 --> 1654 --> 338 --> 363. - Witnessed seizure episode lasting 5-10 seconds, characterized by tonic-clonic activity prior to admission. Treatment Plan: - Continue free water flushes at 35 cc/hr. - Monitor urine output. - Correct electrolyte abnormalities. - Control seizures with valproic acid and levetiracetam. - Monitor renal panel. Heme #Leukocytosis DDx: likely due to bronchoscopy vs infection of unknown source vs drug induced Diagnostic Test: - Continue to have fever spikes as high as 102.8?F. - Increase WBCs 8.9 --> 11.1 after bronchoscopy on 05/14. - Increase WBCs 14.7 --> 16.1 after bronchoscopy on 05/17. Treatment Plan: - Discontinued #Acute nonocclusive thrombus in the left brachial vein Diagnostic Test: - Venous doppler study of upper extremities 05/16: Normal right upper extremity deep venous system. Positive for nonocclusive thrombus in the left brachial vein. Treatment Review (completed): - Lovenox 30 mg (05-11 - 05/15). - Lovenox 40 mg (05/16). - Heparin loading dose and ggt. Lovenox to heparin due to heparin?s shorter half-life, which allows for more rapid cessation in the event of bleeding.s a shorter half life and can be stopped if bleeding occurs. Treatment Plan: - Stopped heparin ggt due to hematuria on 05/18. - Plan for venous doppler of left upper extremity in 2-3 days to assess whether the DVT has resolved. #Normocytic Anemia #Hematoma on left forearm DDx: Anemia of Inflammation vs dilutional anemia vs drug-induced anemia. Likely dilutional anemia since patient had normal hemoglobin on admission and from IV fluids per sepsis protocol. No signs of bleeding. Diagnostic Test: - Hemoglobin 14.0 -->8.2 over the week Treatment Plan: - Monitor H&H. - Type and screen. - Transfusing for Hgb <7 or symptomatic. #Thrombocytopenia (resolved) DDx: Dilutional versus consumption versus increased destruction due to sepsis. Initial decrease is likely due to dilutional in setting of IV fluids, however his WBC and hemoglobin have leveled off platelets have down trended. Diagnostic test: - Platelets: 209 --> 65-->141. Treatment plan: - Monitor daily labs - Avoid excessive oral tracheal suctioning in setting of previous bleed and thrombocytopenia. Endo #no active problems ID #Sepsis #Bilateral chronic mastoiditis #Sinusitis #Bilateral otitis media #Bilateral otitis externa DDx: meningitis vs acute on chronic mastoiditis vs acute febrile illness. Diagnostic Test: - History of chronic mastoiditis. - Met SIRS criteria on admission: T 105F, HR 176, RR 26, PaCO2 26, WBC 16.3. - 05/08 Lactic acid 16.0. - 05/08 CT Head: prominent sphenoid ethmoid maxillary antral sinusitis, bilateral chronic mastoiditis, bilateral otitis media. - 05/08 CT Orbit Sella Inner: severe bilateral chronic mastoiditis, bilateral otitis externa and otitis media, bilateral cholesteatomas in the attics. - 05/08 MRSA screen negative. - 05/09 Sputum culture: 1+ thurman resistance Pseudomonas. - 05/10 Lumbar puncture: clear, WBC 3, glucose 70, total protein 25. - CSF Streptococcus pneumonia Ag negative. - CSF Streptococcus B antigen negative. - CSF Neisseria meningitis B/E.coli K1 negative. - CSF Neisseria meningitis ACY/W135 Ag negative. - CSF haemophilus influenzae B Ag negative. - CSF enterovirus RNA negative. - CSF West Nile virus IgG antibody negative. - CSF West Nile virus IgM antibody negative. - 05/10 Respiratory viral panel: rhinovirus/enterovirus and human metapneumovirus detected. - 05/12 Bilateral ear culture: E coli ESBL. - UA 05/08 and 05/16 negative. - Blood culture 05/08, 05/11, and 05/16 negative. - 05/16 CTAP: Extensive bilateral pneumonia, cystitis pattern, cholelithiasis. - 05/16 CXR: worsening diffuse severe left lung pneumonia. - 05/16 CT Head: unremarkable. - 05/16 Venous doppler ultrasound: Normal right upper extremity deep venous system. Positive for nonocclusive thrombus in the left brachial vein. Treatment Review (completed) - Rocephin 2 gm IV q12HR [05/08-05/11]. - Vancomycin dosed by pharmacy [05/08-05/11] since MRSA screen is negative. - Acyclovir 700 mg IV [05/08-05/11] since LP negative. - Ampicillin 2 gm IV q4HR [05/08-05/09] as patient not in the age group at risk for Listeria infection. - Fluids: 30mL/kg -- 2 L NS fluid infusion and 1 L LR fluid infusion was given in the ED. - Femoral central line removed 05/11, replaced with peripheral access. - Levaquin 750 mg IV [05/11-05/12]. - Doxycycline 100mg IV BID [05/16-05/18] for GPC coverage. - Meropenem 1 g IV [05/12 -05/18]. Treatment Plan: - Topical oxofloxacin. - Discontinued Meropenem. - Patient has limited options in terms of antibiotics in the future as meropenem is broad-spectrum. May have to consider ceftazidime or ceftaroline if he continues to develop recurrent infections. Integumentary #Maculopapular rash to the buttocks DDx: contact dermatitis vs allergic dermatitis Treatment Plan - Patient no longer has diaper on as hawkins is in place. Anticipate rash to improve. Health Maintenance DVT prophylaxis: SCDs. GI prophylaxis: Protonix IV Diet: Jevity Hawkins: present Lines: Peripherals Drips: Propofol, fentanyl, versad. Vent: MV, PPlat <30 and TV < 8 ml/kg IBW CODE STATUS: FULL CODE Patient plan of care was discussed with the senior resident, Dr. Orozco, and attending physician, Dr. Armendariz. Diaz Coppola DO Internal Medicine PGY-1 Attending Provider Attestation/Addendum Patient seen and examined with the above resident, Diaz Coppola DO. I agree with the findings, assessment, and plan of care as documented except for any differences below. Patient with continued fever. Agitated with sedation weaning despite transition attempts to pulse regimen with IV phenobarbital. Infection becoming less likely. PCT negative. UA unremarkable for infection. Pulmonary function stable with gas exchange and compliance preserved. Bronchosocpy yesterday with less secretions. Imaging with CT did not show any new foci including prior otitis and mastoiditis with adequate antibiotics based on culture/sensitivities. Nonocclusive UE DVT being treated with heparin and no acalculous cholecystitis or sinusitis that is new. Favor possible NMS, drug fever/ DRESS, or seritonin syndrome. TSH within normal limits. He did have viral illness on admission but this is far out too. Stop all antibiotics as meropenem was started on the 17th and there is rising temp and eosinophilia at that point. Olanzapine also stopped. Need for cooling ended today with discontinuation of drugs. Patient not ready to extubate, resumed on versed for adequate sedation while phenobarbital loaded to help weaning again. On D#9 on intubation, failed prior extubation. Favor protracted course to avoid tracheostomy given his mental status at baseline and risk of airway management. However davy discussion had with mother and father already about this. Favor avoidance of course of ETT placement longer than 14-21 days. Optimized infection, metabolic parameters, underlying fever, and pulmonary gas exchange/ mechanics; attempt weaning again. Patient off heparin gtt for now, reconsider risk/ benefit with interval imaging of RUE in coming days. Episodes of hematuria and management of upper airway with suction at risk of bleeding; has subconjunctival hemorrhages bilaterally which worsened. Continue to monitor closely in the ICU. Total critical care time: I personally spent 40 minutes for review of physiologic parameters, directing plan of care, coordination of care with other specialists, and counseling family at bedside. This is exclusive of time spent teaching housestaff or performing any separate billable procedures. Patient remains at significant risk for further morbdity and mortality warranting close monitoring and care only available in the ICU. Critical care services required for severe sepsis, acute encephalopathy, acute respiratory failure, drug induced hyperthermia, and RUE DVT.
--- NOTE | 2025-05-18 16:44 | PD.RESPRO ---
Documentation for date of: 05/18/25 Subjective Subjective Interval history: Patient examined at bedside. Remains sedated and intubated. ICU team attempted extubation but he continues to have excessive secretions. Continues to spike fevers overnight and throughout the day. Concern for drug induced fever so antibiotics were held. WBC uptrended to 16. No longer on heparin drip for UE DVT due to ongoing hematuria. Continue valproic acid and Keppra. Exam Vital Signs Temp Pulse Resp BP Pulse Ox O2 Del Method O2 Flow Rate 96.4 F L 85 14 104/69 100 Mechanical Ventilation 35 05/18/25 16:00 05/18/25 16:00 05/18/25 11:52 05/18/25 16:00 05/18/25 16:00 05/18/25 16:00 05/16/25 12:00 FiO2 35 05/18/25 16:00 Narrative Exam General: sedated, intubated, on MV HEENT: NCAT, No JVD noted. Mucosa moist. pinpoint Pupils are equal and reactive to light bilaterally Cardiovascular: Normal S1 and S2. Regular rate and rhythm. Respiratory: equal breath sounds, rhonchi Abdomen: Soft, nontender, not distended, normal bowel sounds. PEG tube in place : Paraphimosis of penis. Osborne inserted with red tinged urine Musculoskeletal: no pitting edema, muscle atrophy, Feet show fixed contractures with inward curvature. Spastic Neuro:deferred Objective Labs 05/21/25 04:30 05/21/25 04:30 Labs: Laboratory Results - last 24 hr 05/17/25 05/17/25 05/18/25 17:05 22:37 04:09 WBC RBC Hgb Hct MCV MCH MCHC RDW Std Deviation Plt Count Neut % (Auto) Lymph % (Auto) Barren % (Auto) Eos % (Auto) Baso % (Auto) Neut # (Auto) Lymph # (Auto) Barren # (Auto) Eos # (Auto) Baso # (Auto) Immature Gran # (Auto) Absolute Nucleated RBC Immature Gran % Nucleated RBC % APTT 51.7 H D 28.3 D Puncture Site Right Radial ABG pH 7.43 ABG pCO2 44 ABG pO2 83 ABG HCO3 29 H ABG O2 Saturation 97 ABG Base Excess 5 H FiO2 35 Sodium Potassium Chloride Carbon Dioxide Anion Gap BUN Creatinine Estim Creat Clear Calc eGFR BUN/Creatinine Ratio Glucose Calculated Osmolality Calcium Corrected Calcium Phosphorus Magnesium Total Bilirubin AST ALT Alkaline Phosphatase Total Protein Albumin Globulin Albumin/Globulin Ratio TSH Free T4 05/18/25 05/18/25 05:05 07:11 WBC 16.1 H RBC 2.92 L Hgb 8.2 L Hct 25.4 L MCV 87 MCH 28.1 MCHC 32.3 RDW Std Deviation 46.4 H Plt Count 332 D Neut % (Auto) 51 Lymph % (Auto) 30 Barren % (Auto) 14 H Eos % (Auto) 4 Baso % (Auto) 0 Neut # (Auto) 8.2 H Lymph # (Auto) 4.8 Barren # (Auto) 2.2 H Eos # (Auto) 0.6 H Baso # (Auto) 0.1 Immature Gran # (Auto) 0.23 H Absolute Nucleated RBC 0.00 Immature Gran % 1 H Nucleated RBC % 0 APTT 131.4 H* D Puncture Site ABG pH ABG pCO2 ABG pO2 ABG HCO3 ABG O2 Saturation ABG Base Excess FiO2 Sodium 139 Potassium 4.7 D Chloride 100 Carbon Dioxide 25.9 Anion Gap 13 BUN 11 Creatinine 0.7 Estim Creat Clear Calc 139.2 eGFR > 60 BUN/Creatinine Ratio 16 Glucose 105 Calculated Osmolality 276 Calcium 8.4 Corrected Calcium 8.9 Phosphorus 4.9 Magnesium 1.8 Total Bilirubin 0.3 AST 48 H ALT 57 H Alkaline Phosphatase 131 H Total Protein 5.9 Albumin 3.4 L Globulin 2.5 Albumin/Globulin Ratio 1.4 TSH 1.70 Free T4 1.87 H ABG Interpretation ABG results: 05/09/25 05/09/25 05/09/25 11:56 13:40 18:50 ABG pH 7.40 7.27 L D 7.28 L ABG pCO2 40 43 55 H D ABG pO2 131 H 53 L* D 70 L ABG HCO3 25 20 26 ABG O2 Saturation 99 H 81 L 92 ABG Base Excess 0 -7 L -2 05/10/25 05/11/25 05/12/25 00:14 05:06 01:18 ABG pH 7.35 7.33 L 7.39 ABG pCO2 42 D 54 H D 48 ABG pO2 103 D 93 94 ABG HCO3 23 28 H 29 H ABG O2 Saturation 99 H 98 98 ABG Base Excess -3 2 3 05/12/25 05/12/2525 03:58 11:50 05:10 ABG pH 7.46 H 7.39 7.19 L* D ABG pCO2 41 48 60 H D ABG pO2 105 58 L* D 114 H D ABG HCO3 29 H 29 H 23 ABG O2 Saturation 99 H 90 L 98 ABG Base Excess 5 H 4 H -6 L 05/17/25 05/18/25 01:30 04:09 ABG pH 7.38 7.43 ABG pCO2 46 44 ABG pO2 90 83 ABG HCO3 27 H 29 H ABG O2 Saturation 98 97 ABG Base Excess 2 5 H Quality Measures Quality Measures VTE prophylaxis (SCDs) and sepsis Current suspected stage: sepsis Possible source: pulmonary Blood cultures ordered: yes Antibiotic ordered: Yes Assessment & Plan Assessment Current Active Medications: Generic Name Dose Route Start Last Admin Trade Name Freq PRN Reason Stop Dose Admin Acetaminophen 650 mg 05/14/25 05:13 05/14/25 18:15 Acetaminophen 325 Mg Tablet PO 06/13/25 05:12 650 mg On Hold: 05/14/25 23:01 Q6HR PRN Administration Fever >100.4 Albuterol/Ipratropium 3 ml 05/09/25 18:19 05/12/25 03:42 Albuterol/Ipratropium (Duoneb) Rt Racquel 3 Ml Nebu INH 06/08/25 18:18 3 ml Q2HR PRN Administration SHORTNESS OF BREATH OR WHEEZE Baclofen 10 mg 05/16/25 00:26 05/18/25 01:33 Baclofen 10 Mg Tablet PO 06/15/25 00:25 10 mg TID PRN Administration Spasms Valproic Acid 187.5 mg/ Sodium 51.875 mls @ 51.875 mls/hr 05/09/25 18:00 05/18/25 13:52 Chloride IV 06/07/25 17:59 Infused Q6HR KYA Infusion Protocol Propofol 1,000 mg in 100 mls @ 2.103 mls/hr 05/13/25 04:16 05/18/25 14:00 Diprivan Ivpb IV 06/12/25 04:15 30 mcg/kg/min .Q24H PRN 12.618 mls/hr PER PROTOCOL Titration Protocol 5 MCG/KG/MIN Fentanyl Citrate 2,500 mcg in 250 mls @ 2.5 mls/hr 05/18/25 07:25 05/18/25 14:00 Sublimaze Inj 2,500 Mcg/250 Ml Bag IV 05/23/25 07:24 150 mcg/hr .Q24H PRN 15 mls/hr PER PROTOCOL Titration Protocol 25 MCG/HR Lactated Ringer's 1,000 mls @ 100 mls/hr 05/18/25 10:07 05/18/25 10:42 Lactated Ringers IV 06/17/25 10:06 100 mls/hr .Q10H KYA Administration Midazolam HCl 100 mg in 100 mls @ 4 mls/hr 05/18/25 10:33 05/18/25 14:00 Versed Pf Inj In Ns Premix IV 05/23/25 10:32 4 mg/hr .Q24H PRN 4 mls/hr PER PROTOCOL Titration Protocol 4 MG/HR Ipratropium [place] 0.5 mg 05/12/25 12:00 05/18/25 11:51 Ipratropium Rt 0.5 Mg/ 2.5 Ml Nebu INH 06/11/25 11:59 0.5 mg Q6HR KYA Administration Levetiracetam 800 mg 05/08/25 21:00 05/18/25 09:23 Levetiracetam Inj 100 Mg/Ml Vial 5ml IV 06/07/25 20:59 800 mg BID KYA Administration Ondansetron HCl 4 mg 05/08/25 11:36 Ondansetron Inj 2 Mg/Ml Inj 2 Ml IVP 06/07/25 11:35 Q6HR PRN NAUSEA OR VOMITING Protocol Oxycodone HCl 10 mg 05/17/25 14:00 05/18/25 13:49 Oxycodone Hcl 5 Mg Ir Tab GT 05/22/25 13:59 10 mg TID KYA Administration Pantoprazole Sodium 40 mg 05/12/25 11:25 05/18/25 09:23 Pantoprazole Inj 40 Mg Vial IVP 06/11/25 11:24 40 mg QDAY KYA Administration Pharmacy Consult 1 each 05/08/25 16:12 Pharmacy To Consult Patient XX 06/07/25 16:11 PRN PRN CONSULT Phenobarbital Sodium 260 mg 05/18/25 10:35 05/18/25 11:11 Phenobarbital Inj 130 Mg/1 Ml Vial IVP 06/01/25 05:44 260 mg Q6H KYA Administration Polyethylene Glycol 17 gm 05/16/25 09:15 05/18/25 09:35 Polyethylene Glycol 17 Gm Packet PO 06/15/25 09:14 Not Given QDAY KYA Sodium Chloride 3 ml 05/12/25 09:33 Sodium Chloride Rt Racquel 0.9% 3 Ml Nebu INH 06/11/25 09:32 PRN PRN SOLN Sodium Chloride 3 ml 05/17/25 11:43 Sodium Chloride Rt Racquel 0.9% 3 Ml Nebu INH 06/16/25 11:42 PRN PRN SOLN Plan David Baltazar is 24 yr male with PMH of chronic mastoiditis (previously had tympanostomy tube placed for recurrent otitis media, now removed), seizure disorder, recurrent pneumonia, cerebral palsy, chronic PEG tube, and asthma who was brought into ED on 05/08/25 for ongoing fever of over 24 hours and reported episode of witnessed seizure by ED. Patient was septic. Neurology was consulted to for LP to rule out meningitis. #Mastoiditis #rule out Meningitis #Tonic clonic seizure #Hx seizures #Cerebral palsy On admission he was noted to have fever of 105, leukocytosis 16, tachycardia 176, and tachypnic 26. CT orbit sella showed b/L otitis externa and media. Reduced mastoid aeration on the left, b/L chlestatomas. He was started on vancomycin, ceftriaxone 2g BID, ampicillin 2g q4hr, and acyclovir. EEG was negative for seizure activity. LP culture was negative: clear, WBC 3, glucose 70, total protein 25. CSF Streptococcus pneumonia Ag negative , Streptococcus B antigen negative. CSF Neisseria meningitis B/E.coli K1 negative, Neisseria meningitis ACY/W135 Ag negative. CSF haemophilus influenzae B Ag negative. MRSA screen negative. Sputum culture thurman resistant Pseudomonas -started meropenam -Discontinued Levofloxacine and started on ear drops Ofloxacin -continue IV Keppra 800mg BID -IV Depakote 187mg q6hr. -seizure precautions -midazolam for breakthrough seizure -Consider trying Glycopyrrolate for secretions if needed. #Paraphimosis #Acute Kidney Injury #Anion Gap Metabolic Acidosis #Lactic acidosis #Elevated total creatine kinase from his hyperkinetic movements #Normocytic Anemia Primary care team to manage above conditions and ongoing care needs. The patient's management plan was discussed with my attending physician Dr. Lang. Zakiya Delacruz, PGY-2 Attending Provider Attestation/Addendum I personally have seen and examined the patient at the bedside and I agreed with resident's findings, assessment and plan of care. Persistent with fever, continue with current mgt, follow sz precaution on current AEDs.
[2025-05-19] VITALS (32 sets, daily range): BP systolic 103–159; BP diastolic 49–91; PULSE 87–143; RESP 14–44; TEMP 36.8–39; O2SAT 97–100; BMI 32.3
[2025-05-19] MEDS: IPRATROPIUM RT 0.5 MG/ 2.5 ML NEBU INH ×4 (00:28→18:48)
[2025-05-19] MEDS: fentaNYL 2,500 MCG/250 ML BAG 2,500 MCG/250 ML BAG 15 MCG IV ×2 (02:33→20:00)
[2025-05-19] MEDS: MIDAZOLAM/NS 100 MG IVPB 100 MG/100 ML BAG 7 MG IV (03:50)
[2025-05-19] MEDS: PHENobarbital INJ 130 MG/1 ML VIAL 260 MG IVP ×4 (04:22→21:35)
[2025-05-19] MEDS: PROPOFOL 1,000 MG IVPB 1,000 MG/100 ML VIAL 12.618 MG IV ×4 (04:22→23:00)
[2025-05-19 04:51] LABS: Base Excess 7 (-3-3); HCO3 31 mEq/L (20-26); Inspired Oxygen, FIO2 35 %; O2 Saturation 97 % (91-98); PCO2 43 mmHg (32.0-48.0); PO2 80 mmHg (83-108); pH, Arterial 7.47 (7.35-7.45)
[2025-05-19 04:54] LABS: Allen Test Performed/OK; Puncture Site Right Radial
[2025-05-19] MEDS: oxyCODONE HCL 5 MG IR TAB 10 MG GT ×3 (05:38→21:07)
[2025-05-19 06:11] LABS: Basophils # (Auto) 0.0 Thou/mm3 (0.0-0.2); Basophils % (Auto) 1 % (0-2.5); Eosinophils # (Auto) 0.4 Thou/mm3 (0.0-0.5); Eosinophils % (Auto) 5 % (0-10); Hematocrit 24.4 % (41.0-53.0); Immature Granulocytes Auto 0.09 Thou/mm3 (0.00-0.00); Lymphocytes # (Auto) 1.6 Thou/mm3 (1.0-4.8); Lymphocytes % (Auto) 21 % (10-50); Mean Corpuscular HGB Conc 32.4 g/dl (31.0-37.0); Mean Corpuscular Hemoglobin 27.8 pg (25.0-35.0); Mean Corpuscular Volume 86 fL (80-100); Monocytes # (Auto) 1.0 Thou/mm3 (0.0-0.8); Monocytes % (Auto) 13 % (0-12); Neutrophils # (Auto) 4.5 Thou/mm3 (1.8-7.7); Neutrophils % (Auto) 59 % (37-80); Nucleated Red Blood Cell # 0.00 Thou/mm3 (0.00-0.00); Nucleated Red Blood Cell % 0 /100 WBC (0); Platelet Count 518 Thou/mm3 (140-440); RDW Standard Deviation 45.3 fL (35.1-43.9); Red Blood Count 2.84 Miln/mm3 (4.50-5.90); White Blood Count 7.7 Thou/mm3 (3.8-10.6)
[2025-05-19 06:25] LABS: Hemoglobin 7.9 g/dL (13.5-16.0)
[2025-05-19 06:26] LABS: INR 1.0 (0.9-1.3); Partial Thromboplastin Time 32.4 Seconds (22.0-36.0); Prothrombin Time 10.4 Seconds (9.0-12.2)
[2025-05-19 06:39] LABS: Anion Gap 11 (7-16); BUN/Creatinine Ratio 15 Ratio (12-20); Blood Urea Nitrogen 9 mg/dL (9-23); Calcium 8.5 mg/dL (8.3-10.6); Carbon Dioxide 30.5 mMol/L (20.0-31.0); Chloride 101 mMol/L (98-107); Creatinine (Component) 0.6 mg/dL (0.6-1.3); Estimated Creatinine Clearance 157.0 mL/min (>60); Glucose 109 mg/dL (74-106); Magnesium 1.6 mg/dL (1.6-2.6); Osmolality,Calculated 282 (275-295); Phosphorous 4.5 mg/dL (2.4-5.1); Potassium 4.0 mMol/L (3.4-5.1); Sodium 142 mMol/L (136-145); eGFR > 60 See Note
[2025-05-19] MEDS: HEPARIN SOD INJ 5000 UNIT/ML VIAL SC ×3 (06:43→21:07)
[2025-05-19 08:17] LABS: Alanine Aminotransferase 48 U/L (10-49); Albumin, Serum 2.8 gm/dL (3.5-5.0); Albumin/Globulin Ratio 1.4 (1.2-2.2); Alkaline Phosphatase 104 U/L (46-116); Anion Gap 11 (7-16); Aspartate Amino Transferase 48 U/L (0-34); BUN/Creatinine Ratio 18 Ratio (12-20); Bilirubin,Total 0.2 mg/dL (0.3-1.2); Blood Urea Nitrogen 11 mg/dL (9-23); Calcium 8.2 mg/dL (8.3-10.6); Calcium (Corrected) 9.2 mg/dL (8.5-10.1); Carbon Dioxide 29.0 mMol/L (20.0-31.0); Chloride 102 mMol/L (98-107); Creatinine (Component) 0.6 mg/dL (0.6-1.3); Estimated Creatinine Clearance 157.0 mL/min (>60); Globulin 2.0 gm/dL (2.3-3.5); Glucose 130 mg/dL (74-106); Osmolality,Calculated 284 (275-295); Potassium 5.0 mMol/L (3.4-5.1); Sodium 142 mMol/L (136-145); Total Protein 4.8 gm/dL (5.7-8.2); eGFR > 60 See Note
--- NOTE | 2025-05-19 08:40 | XR_ITS ---
EXAMINATION: AP chest single view TECHNIQUE: AP portable semiupright chest single view Date and time: May 19, 2025, 0856 hours, comparison May 16, 2025 INDICATIONS: Difficulty breathing this week. FINDINGS: Significant bilateral areas of pneumonia Normal heart size Endotracheal tube tip 5 cm above haresh IMPRESSION:: Significant bilateral pneumonia
[2025-05-19] MEDS: levETIRAcetam INJ 100 MG/ML VIAL 5ML 800 MG IV ×2 (09:26→21:07)
[2025-05-19] MEDS: Magnesium Sulfate 4 GM Ivpb 4 GM/50 ML BAG IV (09:27)
--- NOTE | 2025-05-19 10:43 | ESPR_ITS ---
<Statement entered by Jeanine Baeza MD - 05/20/25 10:56> TOTAL CC TIME: 45 MIN TOTAL TIME: 45MINUTES ON DIRECT MEDICAL CARE, MANAGEMENT - COORDINATION AND COUNSELING > 50% OF TOTAL TIME I saw and evaluated the patient. I reviewed the resident?s note and agree with findings and plan as documented in the resident?s note. Upon my evaluation, this patient had a high probability of imminent or life- threatening deterioration due to persistent severe psychomotor agitation, fevers of unclear etiology, remains intubated, which required my direct attention, intervention, and personal management. This time is exclusive of time spent on procedures, which are documented separately if performed. Start Precedex wean off Versed start Klonopin Check sputum culture and chest x-ray Infectious disease still on differential Fevers persisted despite being off Merrem-Merrem was restarted in case patient has a different drug-resistant strain of Pseudomonas <Statement entered by Kamlesh Baer MD - 05/19/25 16:55> Patient seen and examined at bedside. I discussed and supervised with the sport internship physician who took care of this patient. I personally saw and examined the patient. I agree with most of the assessment and plan. Patient had a fever spike and agitation overnight, Versed drip was increased to 8. Heparin drip has been changed to subcutaneous DVT prophylaxis in setting of davy hematuria. Added clonazepam 2 mg G-tube 3 times daily, turned off Versed. Will attempt to wean down propofol and fentanyl, consider initiating Precedex if required. Due to continuing spiking fevers and agitation, meropenem reinitiated, repeat sputum cultures taken. Ordered a new EEG to rule out ongoing seizures. Patient currently poor candidate for extubation. Plan of care discussed with attending Dr. Baeza. Kamlesh Baer MD PGY-2 Documentation for date of: 05/19/25 Subjective Subjective Interval history: 05/19/2025: Overnight, patient had a fever spike of 102.2?F. Due to agitation, the Versed infusion was increased from 4 mg/gtt to 8mg/gtt. Patient was also receiving Propofol 30 and Fentanyl 150. Patient had one bowel movement and produced 1L of urine over the past 12 hours, with no evidence of gross hematuria. Versed 4 mg gtt was titrated up to 8mg gtt for patient's agitation. Patient was on Propofol 30 and Fentanyl 150. Patient had one bowel movement. Urine output was 1L in the past 12 hours with no gross hematuria. This morning, clonazepam 2 mg PO TID was initiated, Propofol infusion was increased to 50 mcg/kg/min, and fentanyl was maintained at 50 mcg/hr. The versed infusion was discontinued, and Meropenem was restarted to treat Pseudomonas pneumonia, since the patient continued to spike fevers despite discontinuation of the medication. Sputum culture and EEG will be repeated. Heparin was restarted for DVT PPX. 05/18/2025: Overnight, patient remained on Propofol 30 and Fentanyl 300, with Versed 2mg dose x1. Magnesium was given for bronchodilation. Ibuprofen given for fever. Plan was to wean off sedation and extubate the patient today, but due to significant oral secretions and concerns about potential aspiration and the patient's inability to protect the airway, the decision was made to keep the patient intubated for now. A spontaneous breathing trial was attempted, and the patient?s lungs are functioning well. However, given the ongoing agitation, sedation could not be reduced. Phenobarbital dose was increased from 130mg to 260mg every 6 hours, and a 4mg Versed drip was started. Olanzapine was discontinued, and both doxycycline and meropenem were stopped due to concerns of a potential drug reaction, as fever spikes worsened after the initiation of meropenem on 05/12. Heparin was restarted yesterday for a DVT in the left brachial vein but was discontinued this morning due to ongoing hematuria without clots. A follow-up Doppler will be performed in 2-3 days to assess whether the DVT has resolved. Patient?s urine output was 2240cc over the past 12 hours. Maintenance fluids were started at 100ml/hr to manage the increased urine output. ICU team spoke with the patient's mother today, providing updates on the changes in the medication regimen and the patient's current status. Informed her that this is Day 9 of intubation, and there are four more days to attempt extubation before considering a tracheostomy. TSH, EBV, and CMV panels were ordered for further evaluation. 05/17/2025: Overnight,patient was placed on droplet precautions due to positive rhinovirus and human metapneumovirus. Patient received a 4 mg dose of Versed for agitation. Heparin drip was initiated for an upper extremity DVT but was paused at 12:15 AM due to hematuria without clots. Urine output was approximately 170 cc/hr, and the patient had two bowel movements since yesterday. Today, the patient underwent bronchoscopy and tolerated the procedure well, with stable gas exchange observed. To facilitate weaning off fentanyl and propofol, the patient was started on phenobarbital 13 mg and oxycodone 10 mg scheduled TID. Will consider adding Precedex to further support the weaning process and work towards extubation tomorrow. Heparin drip for the DVT has been restarted as the hematuria is improving. Additionally, 1L of IV LR was administered to address hyperkalemia and hyperphosphatemia on AM labs. Plan is to remove the Hawkins catheter tomorrow, 05/18. 05/16/2025: Overnight, patient experienced intermittent spasmodic jerking episodes, lasting about 15-20 minutes at a time. During these episodes, the patient becomes tachycardic and febrile. Baclofen 10mg was administered, followed by a single dose of midazolam 2mg IV for agitation. Patient remains on fentanyl 100 mcg/hr and propofol 50 mcg/kg/min for sedation. Patient spiked a fever of 102.6?F, for which IV tylenol was given. A subsequent temperature of 102.4?F was treated with ibuprofen. The Hawkins catheter was replaced overnight. Urine output over the past 12 hours was approximately 850 mL. Patient has not had a bowel movement since 05/13, will add miralax. Due to persistent fevers, doxycycline 100 mg IV BID was initiated for gram-positive cocci coverage. Blood cultures will be repeated, and a right upper quadrant ultrasound has been ordered to evaluate for potential hepatobiliary source of infection. Liver enzymes are improved from yesterday. Planned Interventions: Initiate phenobarbital 130 mg IV every 6 hours and begin weaning off propofol. Increased olanzapine from 5 mg GT QHS to 5 mg TID. Perform bilateral upper extremity ultrasound to assess for DVT. Repeat UA, CXR, CT head and abd/pelvis. Check lipase levels. 05/15/2025: Overnight, the patient developed a fever of 101.8?F. PO acetaminophen was switched to IV formulation by the night team. Temperature improved to 99.5?F by morning. Urine output over the past 12 hours was approximately 620 cc. Liver enzymes continue to trend upward, will hold acetaminophen for now. Patient was weaned off midazolam infusion today. Plan is to begin tapering propofol next. Antipsychotic regimen was adjusted from quetiapine to olanzapine to minimize risk of QTc prolongation. Repeat chest X- ray showed improvement in bilateral pneumonia. Bronchoscopy was performed yesterday (05/14). Repeat procedure is being considered for 05/16. Increase in WBCs and fever likely from bronchoscopy. 05/14/2025: No acute events overnight. Stable on versed/ fentanyl and propofol. No vasopressor requirements. Patient underwent bronchoscopy, well tolerated. Gas exchange stable. PPeak remains in mid20s. Patient on minimal FiO2 and PEEP now. Good ventilator synchrony. Continues to have heavy drooling and output form upper airway. Minimal from ETT now. 05/13/2025: Patient increased FiO2 overnight to 100%. Difficulty managing secretions. Bleeding from nose and plugging. Agitated with maximal dose of precedex and benadryl pushes. Patient with low grade temp to 100.4F. Mild secretions from ETT, pink/ frothy. 05/12/2025: Patient weaned down on sedation. Tmax 102 degrees at 1600 hrs. 05/11. Patient developed mild hepatitis, likely response to medications, will monitor. Patient successfully weaned off of propofol and fentanyl, Precedex initiated. Patient extubated, placed on high flow. Continues to have high secretions, treated with chest PT, oral suctioning as needed, ipratropium breathing treatments scheduled. Patient notably agitated, treating with Benadryl as needed and Precedex drip. Will continue to try and decrease sedation while maintaining patent airway. Sputum culture grew thurman resistant Pseudomonas, meropenem initiated. Will continue Levaquin for now pending cultures. Ear cultures taken. Patient maintaining good urine output, will replete volume if patient exceeds greater than 2 L output. 05/11/2025: Overnight, the patient became increasingly agitated and was observed biting on the endotracheal tube. In response, propofol was increased from 40 mcg/kg/min to 45 mcg/kg/min, and fentanyl was increased from 200 mcg/hr to 250 mcg/hr. The plan is to attempt weaning the patient off sedation today, and work towards extubation. A lumbar puncture was performed, which showed 3 WBCs. Infection from meningitis is less likely, but culture results are pending for confirmation. Today, the patient has been experiencing a low-grade fever, with the highest recorded temperature being 100.4?F. After the Hawkins catheter was placed, the patient had 1700 cc of urine output over the past 12 hours. Followed up with Dr. Jacky Cuadra (ENT in [place]). Dr. Cuadra stated that there is nothing additional he could identify on the CT imaging that the radiologist has not already seen. And that if there was something it would likely be surgical and he does not perform surgeries. He recommended covering for Pseudomonas with clindamycin and Unasyn. The plan is to start levofloxacin for Pseudomonas coverage as well. Additionally, Dr. Cuadra suggested culturing the ear. 05/10/2025: Patient remained sedated with propofol and fentanyl throughout the night, maintaining adequate sedation levels. Around 2 AM, the propofol dose was reduced due to MAP in the 60s. 1L of LR was administered on top of the ongoing IV maintenance fluids at 100cc/hr. Following this, the MAP remained stable above 65. At 6:50 PM on 05/09, an ABG revealed a pH of 7.28, pCO2 of 55, and pO2 of 70, indicative of respiratory acidosis. Patient was given 5 grams of magnesium and 15 mg of albuterol over the course of an hour to promote bronchodilation. Magnesium also needed to be repleted. A repeat ABG showed normalization of the respiratory parameters. Patient's Hawkins catheter was removed and replaced with a QiVi catheter overnight per the patient's father?s request. However, the patient developed urinary retention. A bladder scan performed at 6 AM showed 295cc of retained urine, and a subsequent scan in the afternoon revealed 439cc. Primary team consulted ICU team. On 05/09, two rapid responses were initiated due to the patient?s escalating agitation and anxiety. Patient appeared to be in significant pain from his paraphimosis. The primary team consulted the ICU for further management, as the patient had already received diazepam, haldol, versed, and dilaudid earlier that morning, with inadequate relief. Additionally, there was concern over a decline in his pO2 levels. The initial ABG at 11:56 showed: pH 7.40, pCO2 40, pO2 131, HCO3 25. A repeat ABG at 13:40 revealed: pH 7.27, pCO2 43, pO2 53, HCO3 20. Upon evaluation by the ICU team, the patient was noted to be extremely agitated and wearing an oxygen mask, with audible gurgling sounds coming from the upper airway, raising concern for potential airway compromise. Given the risk of inadequate airway protection, the decision was made to transfer the patient to the ICU for intubation and further management. In the ICU, the patient was intubated. Urology, Dr. Vargas, was consulted earlier in the day. He was able to successfully perform a reduction of the paraphimosis. Telemetry Course: Patient was admitted to telemetry for further workup and management of sepsis of unknown source, with concern for meningitis. Empiric broad-spectrum antibiotic and antiviral therapy were started, consisting of ceftriaxone 2g IV twice daily, vancomycin (pharmacy to dose), ampicillin, and acyclovir. Neurology was consulted. CT of the orbit, sella, and inner ear was ordered given the patient?s history of acute mastoiditis, which showed severe bilateral chronic mastoiditis, bilateral otitis externa, bilateral otitis media, and bilateral cholesteatomas in the attics. CT head was also performed and was negative for acute hemorrhage, mass effect, or midline shift. Findings included prominent sphenoid, ethmoid, and maxillary antral sinusitis, bilateral chronic mastoiditis, bilateral otitis media, and opacification in the bilateral attics. For the patient?s seizures, his home medications of valproic acid and levetiracetam were restarted. Orders for midazolam and Haldol were placed as needed for breakthrough seizures and agitation. An ice pack was ordered for his paraphimosis. Infectious disease was also consulted. History of Present Illness: 24-year-old male with a past medical history significant for cerebral palsy, asthma, seizure disorder, chronic mastoiditis (previously treated with tympanostomy tube placement for recurrent otitis media, now removed), recurrent pneumonia, and chronic PEG tube dependence, presented to the ED on 05/08/2025 with a fever lasting over 24 hours. The patient also had a witnessed seizure episode lasting 5-10 seconds, characterized by tonic-clonic activity confined to the left side of the body. ED Course: -Initial vitals were: BP 122/84, HR 176, RR 26, T 105F, O2 sat 96% on room air. -Labs significant for: CBC showed a WBC of 16.3. CMP showed Na 148, K 5.2, Cl 107, bicarbonate 18.7, anion gap 22, creatinine 1.3 (baseline 0.7), lactic acid 3.2, alkaline phosphatase 120, LDH 352, total CK 1048, procalcitonin: 0.14. Urinalysis negative. Influenza A/B testing was negative. -Imaging included: EKG showed supraventricular tachycardia of HR [address] and T-wave abnormality. CXR showed no aspiration pneumonia but was noted to be of poor inspiratory effort. CT CAP w/o contrast seemed to show no gross infiltrates or other notable findings but was noted to be severely degraded by patient motion. -In the ED, patient was given acetaminophen 975 mg, ceftriaxone 1 gram IV, midazolam 2 mg IV x1, albuterol 2.5 mg, Zosyn 3.375 gram, 2 L NS fluid infusion, and 1 L LR fluid infusion. In the ED, the patient was agitated and pulled out his IV. Attempts at peripheral access were unsuccessful, and a right femoral central line was placed. Exam Vital Signs Temp Pulse Resp BP Pulse Ox O2 Del Method O2 Flow Rate 100.5 F H 133 H 15 134/83 H 100 Mechanical Ventilation 35 05/19/25 09:00 05/19/25 10:00 05/19/25 06:45 05/19/25 10:00 05/19/25 10:00 05/19/25 08:00 05/16/25 12:00 FiO2 35 05/19/25 10:00 Narrative Exam Physical Exam General: sedated and intubated, nonverbal at baseline, not in acute distress. RASS score -5 (no response to voice or physical stimulation). Head: Normocephalic, atraumatic. Eyes: PERRL. Anicteric. Bilateral lateral eye scleral hemorrhage. Mouth/Throat: Poor dentition. Oral mucosa moist with excessive secretions. Cough reflex intact. ETT in place. Cardiovascular: Regular rate and rhythm, no murmur. Respiratory: Rhonchi to auscultation in bilateral lung thompson. Gastrointestinal: PEG tube in place, site is clean, dry and intact. Soft, no guarding or rebound tenderness. Genitourinary: Decrease swelling of glans penis. Hawkins in place. Extremities: Contracted and swollen hands. No edema, cyanosis, mottling, clubbing. 2+ radial pulse bilaterally, 2+ posterior tibial pulse bilaterally. Skin: Rash near buttock area. Old IV site on left medial upper arm with erythema and old adhesive outline, no purulent drainage. Objective Labs 05/19/25 04:20 05/19/25 07:05 Labs: Laboratory Results - last 24 hr 05/19/25 05/19/25 05/19/25 04:20 04:43 07:05 WBC 7.7 D RBC 2.84 L Hgb 7.9 L Hct 24.4 L MCV 86 MCH 27.8 MCHC 32.4 RDW Std Deviation 45.3 H Plt Count 518 H D Neut % (Auto) 59 Lymph % (Auto) 21 [place] % (Auto) 13 H Eos % (Auto) 5 Baso % (Auto) 1 Neut # (Auto) 4.5 Lymph # (Auto) 1.6 [place] # (Auto) 1.0 H Eos # (Auto) 0.4 Baso # (Auto) 0.0 Immature Gran # (Auto) 0.09 H Absolute Nucleated RBC 0.00 Immature Gran % 1 H Nucleated RBC % 0 PT 10.4 INR 1.0 APTT 32.4 D Puncture Site Right Radial ABG pH 7.47 H ABG pCO2 43 ABG pO2 80 L ABG HCO3 31 H ABG O2 Saturation 97 ABG Base Excess 7 H FiO2 35 Sodium 142 142 Potassium 4.0 D 5.0 D Chloride 101 102 Carbon Dioxide 30.5 29.0 Anion Gap 11 11 BUN 9 11 Creatinine 0.6 0.6 Estim Creat Clear Calc 157.0 157.0 eGFR > 60 > 60 BUN/Creatinine Ratio 15 18 Glucose 109 H 130 H Calculated Osmolality 282 284 Calcium 8.5 8.2 L Corrected Calcium 9.2 Phosphorus 4.5 Magnesium 1.6 Total Bilirubin 0.2 L AST 48 H ALT 48 Alkaline Phosphatase 104 D Total Protein 4.8 L Albumin 2.8 L D Globulin 2.0 L Albumin/Globulin Ratio 1.4 ABG Interpretation ABG results: 05/09/25 05/09/25 05/09/25 11:56 13:40 18:50 ABG pH 7.40 7.27 L D 7.28 L ABG pCO2 40 43 55 H D ABG pO2 131 H 53 L* D 70 L ABG HCO3 25 20 26 ABG O2 Saturation 99 H 81 L 92 ABG Base Excess 0 -7 L -2 05/10/25 05/11/25 05/12/25 00:14 05:06 01:18 ABG pH 7.35 7.33 L 7.39 ABG pCO2 42 D 54 H D 48 ABG pO2 103 D 93 94 ABG HCO3 23 28 H 29 H ABG O2 Saturation 99 H 98 98 ABG Base Excess -3 2 3 05/12/25 05/12/25 05/13/25 03:58 11:50 05:10 ABG pH 7.46 H 7.39 7.19 L* D ABG pCO2 41 48 60 H D ABG pO2 105 58 L* D 114 H D ABG HCO3 29 H 29 H 23 ABG O2 Saturation 99 H 90 L 98 ABG Base Excess 5 H 4 H -6 L 05/17/25 05/18/25 05/19/25 01:30 04:09 04:43 ABG pH 7.38 7.43 7.47 H ABG pCO2 46 44 43 ABG pO2 90 83 80 L ABG HCO3 27 H 29 H 31 H ABG O2 Saturation 98 97 97 ABG Base Excess 2 5 H 7 H Quality Measures Quality Measures VTE prophylaxis (SCDs) and sepsis Current suspected stage: sepsis Possible source: pulmonary Blood cultures ordered: yes Antibiotic ordered: Yes Assessment & Plan Assessment Current Active Medications: Generic Name Dose Route Start Last Admin Trade Name Freq PRN Reason Stop Dose Admin Acetaminophen 650 mg 05/14/25 05:13 05/14/25 18:15 Acetaminophen 325 Mg Tablet PO 06/13/25 05:12 650 mg On Hold: 05/14/25 23:01 Q6HR PRN Administration Fever >100.4 Albuterol/Ipratropium 3 ml 05/09/25 18:19 05/12/25 03:42 Albuterol/Ipratropium (Duoneb) Rt Racquel 3 Ml Nebu INH 06/08/25 18:18 3 ml Q2HR PRN Administration SHORTNESS OF BREATH OR WHEEZE Baclofen 10 mg 05/16/25 00:26 05/18/25 01:33 Baclofen 10 Mg Tablet PO 06/15/25 00:25 10 mg TID PRN Administration Spasms Clonazepam 2 mg 05/19/25 08:45 05/19/25 09:26 Clonazepam 0.5 Mg Tablet PO 05/24/25 08:44 2 mg TID KYA Administration Heparin Sodium (Porcine) 5,000 unit 05/19/25 06:00 05/19/25 06:43 Heparin Sod Inj 5000 Unit/Ml Vial SC 06/02/25 05:59 5,000 unit Q8HR KYA Administration Valproic Acid 187.5 mg/ Sodium 51.875 mls @ 51.875 mls/hr 05/09/25 18:00 05/19/25 05:38 Chloride IV 06/07/25 17:59 51.8 mls/hr Q6HR KYA Administration Protocol Propofol 1,000 mg in 100 mls @ 2.103 mls/hr 05/13/25 04:16 05/19/25 06:00 Diprivan Ivpb IV 06/12/25 04:15 30 mcg/kg/min .Q24H PRN 12.618 mls/hr PER PROTOCOL Titration Protocol 5 MCG/KG/MIN Fentanyl Citrate 2,500 mcg in 250 mls @ 2.5 mls/hr 05/18/25 07:25 05/19/25 06:00 Sublimaze Inj 2,500 Mcg/250 Ml Bag IV 05/23/25 07:24 150 mcg/hr .Q24H PRN 15 mls/hr PER PROTOCOL Titration Protocol 25 MCG/HR Midazolam HCl 100 mg in 100 mls @ 4 mls/hr 05/18/25 10:33 05/19/25 06:00 Versed Pf Inj In Ns Premix IV 05/23/25 10:32 8 mg/hr .Q24H PRN 8 mls/hr PER PROTOCOL Titration Protocol 4 MG/HR Magnesium Sulfate 4 gm in 50 mls @ 12.5 mls/hr 05/19/25 07:05 05/19/25 09:27 Magnesium Sulfate Ivpb IV 05/19/25 11:04 12.5 mls/hr X1 ONE Administration Ipratropium [place] 0.5 mg 05/12/25 12:00 05/19/25 06:45 Ipratropium Rt 0.5 Mg/ 2.5 Ml Nebu INH 06/11/25 11:59 0.5 mg Q6HR KYA Administration Levetiracetam 800 mg 05/08/25 21:00 05/19/25 09:26 Levetiracetam Inj 100 Mg/Ml Vial 5ml IV 06/07/25 20:59 800 mg BID KYA Administration Ondansetron HCl 4 mg 05/08/25 11:36 Ondansetron Inj 2 Mg/Ml Inj 2 Ml IVP 06/07/25 11:35 Q6HR PRN NAUSEA OR VOMITING Protocol Oxycodone HCl 10 mg 05/17/25 14:00 05/19/25 05:38 Oxycodone Hcl 5 Mg Ir Tab GT 05/22/25 13:59 10 mg TID KYA Administration Pantoprazole Sodium 40 mg 05/12/25 11:25 05/19/25 09:26 Pantoprazole Inj 40 Mg Vial IVP 06/11/25 11:24 40 mg QDAY KYA Administration Pharmacy Consult 1 each 05/08/25 16:12 Pharmacy To Consult Patient XX 06/07/25 16:11 PRN PRN CONSULT Phenobarbital Sodium 260 mg 05/18/25 10:35 05/19/25 04:22 Phenobarbital Inj 130 Mg/1 Ml Vial IVP 06/01/25 05:44 260 mg Q6H KYA Administration Polyethylene Glycol 17 gm 05/16/25 09:15 05/19/25 09:15 Polyethylene Glycol 17 Gm Packet PO 06/15/25 09:14 Not Given QDAY KYA Sodium Chloride 3 ml 05/12/25 09:33 Sodium Chloride Rt Racquel 0.9% 3 Ml Nebu INH 11/15/25 09:32 PRN PRN SOLN Sodium Chloride 3 ml 05/17/25 11:43 Sodium Chloride Rt Racquel 0.9% 3 Ml Nebu INH 06/16/25 11:42 PRN PRN SOLN Plan 24-year-old male with cerebral palsy, asthma, seizure disorder, chronic mastoiditis, recurrent pneumonia, and chronic PEG tube dependence presented with fever and seizure, was admitted for sepsis workup, and later transferred to the ICU for intubation due to concerns about airway protection. Neurology #Agitated delerium Patient was extremely agitated before ICU admission, likely due to pain from paraphimosis. Patient initially sedated with propofol and fentanyl, titrated to Precedex with Benadryl before extubation. Patient failed extubation and was intubated on 05/12. Propofol and fentanyl was restarted. Diagnostic Test: - 05/19 AM: RASS was -4, no response to voice but movement to physical stimuli. Treatment Review (completed) - Versad 5mg/h was tapered off on 05/15. - Phenobarbital 130 mg IV Q6HR 05/16-05/18. - Olanzapine 5mg daily 05/13-05/16. - Olanzapine 5mg TID 05/16-05/18. - Midazolam 4mg --> 8mg gtt 05/18-05/19. Treatment Plan: - Start Clonazepam 2 mg PO TID. - Continue Phenobarbital 260 mg IV Q6H. - Continue Oxycodone 10mg GT TID. - Currently on Propofol 30 mcg/kg/min and Fentanyl 150 mcg/h. Continue to wean off propofol and fentanyl as tolerated, will add Precedex if patient starts to get agitated. - If continues to be on Propofol, recheck TG on 05/20 (every 72 hours). #History of seizures #Cerebral palsy Diagnosis: - Temperature of 105F on admission. - EEG unremarkable Treatment Plan: - Continue valproic acid 187.5 mg Q6H. - Continue levetiracetam 800mg BID. - Adjust seizure medications if breakthrough seizures persist. - Seizure precautions. - Aspiration precautions. - Repeat EEG. Cardiovascular #Sinus tachycardia Likely due to infection Diagnostic Test: - Increase UOP in past three days: 3065cc (05/18), 3175cc (05/17), and 2455cc (05/16), less like dehydration. - Fever spike up to 102.2F overnight. Treatment Plan: - No specific treatment required at this time. Will treat underlying cause. - Continue close cardiac monitoring. - Monitor electrolytes and replete as needed. - Maintain Mg > 2 and K > 4 to reduce arrhythmia risk. Respiratory #Hospital acquired pneumonia Day 11 of hospitalization Diagnostic Test: - CXR 05/19: Significant bilateral pneumonia. - Sputum culture 05/09 MDR pneumonas, sensitive to meropenem. Treatment Plan: - Repeat sputum cultures on 05/19, as there are different strains of Pseudomonas. - Restarted meropenem (05/12-05/17, 05/19-05/22, for a total of ten days). #Failed extubation 05/12 #Acute hypoxic respiratory failure Diagnostic Test: - CXR 05/11: Mild bilateral perihilar pneumonia. To assess for ventilator associated pneumonia. Not much change from 05/09 CXR. - Pseudomonas from ETT secretions previously (05/09). - CXR 05/15: improvement in bilateral pneumonia. - CXR 05/16: worsening diffuse severe left lung pneumonia. - ABG 05/18: pH 7.43, pCO2 44, pO2 83 and HCO3 29. - CXR 05/19: Significant bilateral pneumonia. Treatment Review (completed): - Patient extubated to [facility] 05/12, chest film with centro-bronchovascular congestion and multifocal pneumonia. - Reintubated overnight 05/13- VC/AC PPeak 20 PEEP 5 FiO2 40%. - Patient underwent bronchoscopy on 05/14 and 05/17 for secretions, well tolerated. Treatment Plan: - Bronchoscopy culture pending. - Chest physiotherapy BID. - Ipratropium 0.5 mg every 6 hours. - Given the patient's current condition, including severe tachycardia and excessive secretions, he is not considered a suitable candidate for extubation at this time. Therefore, mechanical ventilation will be continued to support her respiratory status. - Patient will be reassessed daily to determine if weaning from sedation and extubation can be possible. This is day 10 of intubation, and if extubation remains unfeasible, the possibility of a tracheostomy will need to be considered. Avoid prolonged ETT placement beyond 14-21 days. #Bronchospasm #History of asthma Diagnostic Test: - Although the patient has a history of asthma, the bronchospasm is most likely from the irritant effect of blood in the airway. A small amount of blood, which was likely from dryness of the nasal mucosa, was suctioned out during intubation. Treatment Plan: - Magnesium for bronchodilator effect as needed. - Albuterol as needed. GI, , F/E/N #Chronic PEG tube dependence Treatment Plan: - Jevity 1.5 at 40 ml/hr x 24 hrs via PEG tube by pump (goal). If no IV fluids, water flushes of 35 ml/hr. - ProStat 30ml BID via PEG tube. - Appreciate financial services director recommendations. - Bowel movements resumed after adding miralax. - Triglyceride level 05/14 - 290; 05/17 - 312. - Repeat TG levels every 72 hours when on Propofol, which should be discontinued if triglyceride levels reach or exceed 400 mg/dL to prevent hypertriglyceridemia-associated complications. - Next check 05/20 is patient remains on Propofol. #Hepatitis (downtrending) Likely due to receiving multiple medications that could potentially cause hepatotoxicity, such as meropenem. Diagnostic Test: - AST 199 --> 48. - ALT 152 --> 48. - Gallbladder ultrasound 05/16: Normal gallbladder, no gallstones. Fatty infiltration throughout the liver. - Lipase 05/16: 41 wnl. Treatment Plan: - Continue daily LFTs. - Avoid acetaminophen unless fever exceeds 101.0?F or Ibuprofen as alternative. - Will reassess if transaminases continue to rise or clinical status changes. #Hypoalbuminemia Likely due to acute hepatitis Diagnostic Test: - UA had urine proteins 1+. - Albumin 4.9 -->3.3 -->2.8 --> 3.2 --> 3.4 --> 2.8. Treatment Plan: - Monitor LFTs, INR, and bilirubin. - Maintain on PEG tube feeds per financial services director recommendations. #Acute urinary retention (resolved) Treatment Plan - Maintain hawkins catheter. Monitor UOP. - Monitor urine output, replace fluid if needed. - Hawkins changed and replaced on 05/16. #Paraphimosis (resolved) #Balanitis (resolved) Diagnostic Test: - Edema and tenderness of the glans penis. - Swelling of the distal retracted foreskin. - Constricting band of tissue proximal to the head of the penis at the coronal sulcus. - Hawkins was removed on 05/09 and transitioned to Oivi external urinary catheter. Discussed with family about the need to reinsert hawkins due to the patient's acute urinary retention. Family were in agreement with this plan. Hakwins was reinserted on 05/10 due to urinary retention. Hawkins changed and replaced on 05/16. - S/p reduction of the paraphimosis by Dr. Vargas on 05/09. Treatment Plan: - Control patient's pain with sedation. - Monitor urine output. - Remove hawkins when appropriate. Renal #Hyperkalemia (resolved) #Hyperphosphatemia (resolved) DDx: acute kidney injury vs hemolysis vs rhabdomyolysis. Diagnostic Test: - Potassium 5.2. - Phosphorus 5.2. - CK 363. - LDH 350. - Uric acid 3.5. - Hemoglobin 8.9. - Cr 0.6. Treatment Plan: - Continue maintenance fluids. - Monitor BMP and phosphorus. - Monitor potassium levels to avoid arrhythmias. #Acute kidney injury (resolved) DDx: dehydration or vasodilation from sepsis. Diagnositc Test: - Creatinine 1.3 (baseline: 0.7) Treatment Plan: - Continue with free water flushes. - Daily renal panel to trend BUN, Cr, and electrolytes. - Avoid nephrotoxins. - Renally dose meds as appropriate. - Strict I&Os, monitor urine output closely. - Monitor for signs of volume overload or uremic symptoms. #Anion Gap Metabolic Acidosis (resolved) #Lactic acidosis (resolved) DDx: seizures vs sepsis vs acute kidney injury vs hypoperfusion. Likely from seizures as patient has no signs of systemic hypoperfusion such as skin mottling, decreased cap refills. Diagnostic Test: - Admission anion gap 22, lactic acid 16.0, bicarbonate 18.7. Treatment Plan: - Recheck LA as needed. #Rhabdomyolysis (resolving) DDx: seizures vs hyperthermia vs infectious myositis. Diagnostic Test: - CK 1048 --> 3743 --> 1654 --> 338 --> 363. - Witnessed seizure episode lasting 5-10 seconds, characterized by tonic-clonic activity prior to admission. Treatment Plan: - Continue free water flushes at 35 cc/hr. - Monitor urine output. - Correct electrolyte abnormalities. - Control seizures with valproic acid and levetiracetam. - Monitor renal panel. Heme #Acute nonocclusive thrombus in the left brachial vein Diagnostic Test: - Venous doppler study of upper extremities 05/16: Normal right upper extremity deep venous system. Positive for nonocclusive thrombus in the left brachial vein. Treatment Review (completed): - Lovenox 30 mg (05-11 - 05/15). - Lovenox 40 mg (05/16). - Heparin loading dose and ggt. Lovenox to heparin due to heparin?s shorter half-life, which allows for more rapid cessation in the event of bleeding, a shorter half life and can be stopped if bleeding occurs. Treatment Plan: - Stopped heparin ggt due to hematuria on 05/18. - Plan for venous doppler of left upper extremity in 2-3 days to assess whether the DVT has resolved. - Started heparin 5000 SC for DVT PPX on 05/19 as hematuria as resolved. #Thrombocytosis DDx: infection vs reactive Diagnostic Test: - Plt 518 Treatment Plan: - Monitor CMP. #Normocytic Anemia #Hematoma on left forearm DDx: Anemia of Inflammation vs dilutional anemia vs drug-induced anemia. Likely dilutional anemia since patient had normal hemoglobin on admission and from IV fluids per sepsis protocol. No signs of bleeding. Diagnostic Test: - Hemoglobin 14.0 -->8.2 over the week Treatment Plan: - Monitor H&H. - Type and screen. - Transfusing for Hgb <7 or symptomatic. #Leukocytosis (resolved) DDx: likely due to bronchoscopy vs infection of unknown source vs drug induced Diagnostic Test: - Continue to have fever spikes as high as 102.8?F. - Increase WBCs 8.9 --> 11.1 after bronchoscopy on 05/14. - Increase WBCs 14.7 --> 16.1 after bronchoscopy on 05/17. Treatment Plan: - Treat underlying cause, likely hospital acquired pneumonia. Treating with meropenem. #Thrombocytopenia (resolved) DDx: Dilutional versus consumption versus increased destruction due to sepsis. Initial decrease is likely due to dilutional in setting of IV fluids, however his WBC and hemoglobin have leveled off platelets have down trended. Diagnostic test: - Platelets: 209 --> 65-->141. Treatment plan: - Monitor daily labs - Avoid excessive oral tracheal suctioning in setting of previous bleed and thrombocytopenia. Endo #no active problems ID #Sepsis #Bilateral chronic mastoiditis #Sinusitis #Bilateral otitis media #Bilateral otitis externa DDx: meningitis vs acute on chronic mastoiditis vs acute febrile illness. Diagnostic Test: - History of chronic mastoiditis. - Met SIRS criteria on admission: T 105F, HR 176, RR 26, PaCO2 26, WBC 16.3. - 05/08 Lactic acid 16.0. - 05/08 CT Head: prominent sphenoid ethmoid maxillary antral sinusitis, bilateral chronic mastoiditis, bilateral otitis media. - 05/08 CT Orbit Sella Inner: severe bilateral chronic mastoiditis, bilateral otitis externa and otitis media, bilateral cholesteatomas in the attics. - 05/08 MRSA screen negative. - 05/09 Sputum culture: 1+ thurman resistance Pseudomonas. - 05/10 Lumbar puncture: clear, WBC 3, glucose 70, total protein 25. - CSF Streptococcus pneumonia Ag negative. - CSF Streptococcus B antigen negative. - CSF Neisseria meningitis B/E.coli K1 negative. - CSF Neisseria meningitis ACY/W135 Ag negative. - CSF haemophilus influenzae B Ag negative. - CSF enterovirus RNA negative. - CSF West Nile virus IgG antibody negative. - CSF West Nile virus IgM antibody negative. - 05/10 Respiratory viral panel: rhinovirus/enterovirus and human metapneumovirus detected. - 05/12 Bilateral ear culture: E coli ESBL. - UA 05/08 and 05/16 negative. - Blood culture 05/08, 05/11, and 05/16 negative. - 05/16 CTAP: Extensive bilateral pneumonia, cystitis pattern, cholelithiasis. - 05/16 CXR: worsening diffuse severe left lung pneumonia. - 05/16 CT Head: unremarkable. - 05/16 Venous doppler ultrasound: Normal right upper extremity deep venous system. Positive for nonocclusive thrombus in the left brachial vein. Treatment Review (completed) - Rocephin 2 gm IV q12HR [05/08-05/11]. - Vancomycin dosed by pharmacy [05/08-05/11] since MRSA screen is negative. - Acyclovir 700 mg IV [05/08-05/11] since LP negative. - Ampicillin 2 gm IV q4HR [05/08-05/09] as patient not in the age group at risk for Listeria infection. - Fluids: 30mL/kg -- 2 L NS fluid infusion and 1 L LR fluid infusion was given in the ED. - Femoral central line removed 05/11, replaced with peripheral access. - Levaquin 750 mg IV [05/11-05/12]. - Doxycycline 100mg IV BID [05/16-05/18] for GPC coverage. - Meropenem 1 g IV [05/12 -05/18]. Treatment Plan: - Topical oxofloxacin. - Restarted Meropenem (05/19-05/22) for ten days total. - Patient has limited options in terms of antibiotics in the future as meropenem is broad-spectrum. May have to consider ceftazidime or ceftaroline if he continues to develop recurrent infections. Integumentary #Maculopapular rash to the buttocks DDx: contact dermatitis vs allergic dermatitis Treatment Plan - Patient no longer has diaper on as hawkins is in place. Anticipate rash to improve. Health Maintenance DVT prophylaxis: SCDs, heparin subQ GI prophylaxis: Protonix IV Diet: Jevity Hawkins: present Lines: Peripherals Drips: Propofol, fentanyl, versad. Vent: MV, PPlat <30 and TV < 8 ml/kg IBW CODE STATUS: FULL CODE Patient plan of care was discussed with the senior resident, Dr. Baer, and attending physician, Dr. Baeza. Diaz Coppola, DO Internal Medicine PGY-1
[2025-05-19] MEDS: MEROPENEM INJ 1,000 MG in SODIUM CHLORIDE 0.9% (Popper) 50 ML 100 MG IV ×2 (14:02→21:07)
--- NOTE | 2025-05-19 16:00 | PC.SS ---
Update: Patient remains intubated. Plan wean sedation. NG tube feedings in place. Osborne catheter in place. Neurology is consulting.
[2025-05-19] MEDS: ALBUTEROL/IPRATROPIUM (Duoneb) RT SOL 3 ML NEBU INH (18:48)
--- NOTE | 2025-05-19 20:29 | PD.RESPRO ---
Documentation for date of: 05/19/25 Subjective Subjective Interval history: Patient examined at bedside. Remains sedated and intubated. Continues to spike fever overnight therefore restarted meropenem. On subcu DVT prophylaxis after stopping heparin drip yesterday. Repeating EEG. Continue valproic acid and Keppra. Exam Vital Signs Temp Pulse Resp BP Pulse Ox O2 Del Method O2 Flow Rate 100.3 F 122 H 30 H 150/84 H 100 Mechanical Ventilation 35 05/19/25 18:00 05/19/25 20:00 05/19/25 18:49 05/19/25 20:00 05/19/25 20:00 05/19/25 16:00 05/16/25 12:00 FiO2 35 05/19/25 20:00 Narrative Exam General: sedated, intubated, on MV HEENT: NCAT, No JVD noted. Mucosa moist. pinpoint Pupils are equal and reactive to light bilaterally Cardiovascular: Normal S1 and S2. Regular rate and rhythm. Respiratory: equal breath sounds, rhonchi Abdomen: Soft, nontender, not distended, normal bowel sounds. PEG tube in place : decrease swelling of penis. Osborne inserted with red tinged urine Musculoskeletal: no pitting edema, muscle atrophy, Feet show fixed contractures with inward curvature. Spastic Neuro:deferred Objective Labs 05/21/25 04:30 05/21/25 04:30 Labs: Laboratory Results - last 24 hr 05/19/25 05/19/25 05/19/25 04:20 04:43 07:05 WBC 7.7 D RBC 2.84 L Hgb 7.9 L Hct 24.4 L MCV 86 MCH 27.8 MCHC 32.4 RDW Std Deviation 45.3 H Plt Count 518 H D Neut % (Auto) 59 Lymph % (Auto) 21 [place] % (Auto) 13 H Eos % (Auto) 5 Baso % (Auto) 1 Neut # (Auto) 4.5 Lymph # (Auto) 1.6 [place] # (Auto) 1.0 H Eos # (Auto) 0.4 Baso # (Auto) 0.0 Immature Gran # (Auto) 0.09 H Absolute Nucleated RBC 0.00 Immature Gran % 1 H Nucleated RBC % 0 PT 10.4 INR 1.0 APTT 32.4 D Puncture Site Right Radial ABG pH 7.47 H ABG pCO2 43 ABG pO2 80 L ABG HCO3 31 H ABG O2 Saturation 97 ABG Base Excess 7 H FiO2 35 Sodium 142 142 Potassium 4.0 D 5.0 D Chloride 101 102 Carbon Dioxide 30.5 29.0 Anion Gap 11 11 BUN 9 11 Creatinine 0.6 0.6 Estim Creat Clear Calc 157.0 157.0 eGFR > 60 > 60 BUN/Creatinine Ratio 15 18 Glucose 109 H 130 H Calculated Osmolality 282 284 Calcium 8.5 8.2 L Corrected Calcium 9.2 Phosphorus 4.5 Magnesium 1.6 Total Bilirubin 0.2 L AST 48 H ALT 48 Alkaline Phosphatase 104 D Total Protein 4.8 L Albumin 2.8 L D Globulin 2.0 L Albumin/Globulin Ratio 1.4 ABG Interpretation ABG results: 05/09/25 05/09/25 05/09/25 11:56 13:40 18:50 ABG pH 7.40 7.27 L D 7.28 L ABG pCO2 40 43 55 H D ABG pO2 131 H 53 L* D 70 L ABG HCO3 25 20 26 ABG O2 Saturation 99 H 81 L 92 ABG Base Excess 0 -7 L -2 05/10/25 05/11/25 05/12/25 00:14 05:06 01:18 ABG pH 7.35 7.33 L 7.39 ABG pCO2 42 D 54 H D 48 ABG pO2 103 D 93 94 ABG HCO3 23 28 H 29 H ABG O2 Saturation 99 H 98 98 ABG Base Excess -3 2 3 05/12/25 05/12/25 05/13/25 03:58 11:50 05:10 ABG pH 7.46 H 7.39 7.19 L* D ABG pCO2 41 48 60 H D ABG pO2 105 58 L* D 114 H D ABG HCO3 29 H 29 H 23 ABG O2 Saturation 99 H 90 L 98 ABG Base Excess 5 H 4 H -6 L 05/17/25 05/18/25 05/19/25 01:30 04:09 04:43 ABG pH 7.38 7.43 7.47 H ABG pCO2 46 44 43 ABG pO2 90 83 80 L ABG HCO3 27 H 29 H 31 H ABG O2 Saturation 98 97 97 ABG Base Excess 2 5 H 7 H Quality Measures Quality Measures VTE prophylaxis (SCDs) and sepsis Current suspected stage: sepsis Possible source: pulmonary Blood cultures ordered: yes Antibiotic ordered: Yes Assessment & Plan Assessment Current Active Medications: Generic Name Dose Route Start Last Admin Trade Name Freq PRN Reason Stop Dose Admin Acetaminophen 650 mg 05/14/25 05:13 05/14/25 18:15 Acetaminophen 325 Mg Tablet PO 06/13/25 05:12 650 mg On Hold: 05/14/25 23:01 Q6HR PRN Administration Fever >100.4 Albuterol/Ipratropium 3 ml 05/09/25 18:19 05/19/25 18:48 Albuterol/Ipratropium (Duoneb) Rt Racquel 3 Ml Nebu INH 06/08/25 18:18 3 ml Q2HR PRN Administration SHORTNESS OF BREATH OR WHEEZE Baclofen 10 mg 05/16/25 00:26 05/18/25 01:33 Baclofen 10 Mg Tablet PO 06/15/25 00:25 10 mg TID PRN Administration Spasms Clonazepam 2 mg 05/19/25 08:45 05/19/25 13:58 Clonazepam 0.5 Mg Tablet PO 05/24/25 08:44 2 mg TID KYA Administration Heparin Sodium (Porcine) 5,000 unit 05/19/25 06:00 05/19/25 13:59 Heparin Sod Inj 5000 Unit/Ml Vial SC 06/02/25 05:59 5,000 unit Q8HR KYA Administration Valproic Acid 187.5 mg/ Sodium 51.875 mls @ 51.875 mls/hr 05/09/25 18:00 05/19/25 17:23 Chloride IV 06/07/25 17:59 51.8 mls/hr Q6HR KYA Administration Protocol Propofol 1,000 mg in 100 mls @ 2.103 mls/hr 05/13/25 04:16 05/19/25 18:00 Diprivan Ivpb IV 06/12/25 04:15 30 mcg/kg/min .Q24H PRN 12.618 mls/hr PER PROTOCOL Titration Protocol 5 MCG/KG/MIN Fentanyl Citrate 2,500 mcg in 250 mls @ 2.5 mls/hr 05/18/25 07:25 05/19/25 20:00 Sublimaze Inj 2,500 Mcg/250 Ml Bag IV 05/23/25 07:24 150 mcg/hr .Q24H PRN 15 mls/hr PER PROTOCOL Administration Protocol 25 MCG/HR Midazolam HCl 100 mg in 100 mls @ 4 mls/hr 05/18/25 10:33 05/19/25 16:00 Versed Pf Inj In Ns Premix IV 05/23/25 10:32 0 mg/hr .Q24H PRN 0 mls/hr PER PROTOCOL Titration Protocol 4 MG/HR Meropenem 1,000 mg/ Sodium 50 mls @ 100 mls/hr 05/19/25 14:00 05/19/25 14:02 Chloride IV 05/22/25 13:59 100 mls/hr Q8HR KYA Administration Ipratropium [place] 0.5 mg 05/12/25 12:00 05/19/25 18:48 Ipratropium Rt 0.5 Mg/ 2.5 Ml Nebu INH 06/11/25 11:59 0.5 mg Q6HR KYA Administration Levetiracetam 800 mg 05/08/25 21:00 05/19/25 09:26 Levetiracetam Inj 100 Mg/Ml Vial 5ml IV 06/07/25 20:59 800 mg BID KYA Administration Ondansetron HCl 4 mg 05/08/25 11:36 Ondansetron Inj 2 Mg/Ml Inj 2 Ml IVP 06/07/25 11:35 Q6HR PRN NAUSEA OR VOMITING Protocol Oxycodone HCl 10 mg 05/17/25 14:00 05/19/25 13:58 Oxycodone Hcl 5 Mg Ir Tab GT 05/22/25 13:59 10 mg TID KYA Administration Pantoprazole Sodium 40 mg 05/12/25 11:25 05/19/25 09:26 Pantoprazole Inj 40 Mg Vial IVP 06/11/25 11:24 40 mg QDAY KYA Administration Pharmacy Consult 1 each 05/08/25 16:12 Pharmacy To Consult Patient XX 06/07/25 16:11 PRN PRN CONSULT Phenobarbital Sodium 260 mg 05/18/25 10:35 05/19/25 17:23 Phenobarbital Inj 130 Mg/1 Ml Vial IVP 06/01/25 05:44 260 mg Q6H KYA Administration Polyethylene Glycol 17 gm 05/16/25 09:15 05/19/25 09:15 Polyethylene Glycol 17 Gm Packet PO 06/15/25 09:14 Not Given QDAY KYA Sodium Chloride 3 ml 05/12/25 09:33 Sodium Chloride Rt Racquel 0.9% 3 Ml Nebu INH 06/11/25 09:32 PRN PRN SOLN Sodium Chloride 3 ml 05/17/25 11:43 Sodium Chloride Rt Racquel 0.9% 3 Ml Nebu INH 06/16/25 11:42 PRN PRN SOLN Plan David Baltazar is 24 yr male with PMH of chronic mastoiditis (previously had tympanostomy tube placed for recurrent otitis media, now removed), seizure disorder, recurrent pneumonia, cerebral palsy, chronic PEG tube, and asthma who was brought into ED on 05/08/25 for ongoing fever of over 24 hours and reported episode of witnessed seizure by ED. Patient was septic. Neurology was consulted to for LP to rule out meningitis. #Mastoiditis #rule out Meningitis #Tonic clonic seizure #Hx seizures #Cerebral palsy On admission he was noted to have fever of 105, leukocytosis 16, tachycardia 176, and tachypnic 26. CT orbit sella showed b/L otitis externa and media. Reduced mastoid aeration on the left, b/L chlestatomas. He was started on vancomycin, ceftriaxone 2g BID, ampicillin 2g q4hr, and acyclovir. EEG was negative for seizure activity. LP culture was negative: clear, WBC 3, glucose 70, total protein 25. CSF Streptococcus pneumonia Ag negative , Streptococcus B antigen negative. CSF Neisseria meningitis B/E.coli K1 negative, Neisseria meningitis ACY/W135 Ag negative. CSF haemophilus influenzae B Ag negative. MRSA screen negative. Sputum culture thurman resistant Pseudomonas - meropenam -Discontinued Levofloxacine and started on ear drops Ofloxacin -continue IV Keppra 800mg BID -IV Depakote 187mg q6hr. -seizure precautions -midazolam for breakthrough seizure -Consider trying Glycopyrrolate for secretions if needed. #Paraphimosis #Acute Kidney Injury #Anion Gap Metabolic Acidosis #Lactic acidosis #Elevated total creatine kinase from his hyperkinetic movements #Normocytic Anemia Primary care team to manage above conditions and ongoing care needs. The patient's management plan was discussed with my attending physician Dr. Lang. Zakiya Delacruz, PGY-2 Attending Provider Attestation/Addendum I personally have seen and examined the patient at the bedside and I agreed with resident's findings, assessment and plan of care. Patient with persistent fever, continue with AEDs, fu with EEG.
[2025-05-20] VITALS (30 sets, daily range): BP systolic 90–161; BP diastolic 46–98; PULSE 98–155; RESP 15–48; TEMP 37.3–39; O2SAT 95–100; BMI 32.3
[2025-05-20] MEDS: IPRATROPIUM RT 0.5 MG/ 2.5 ML NEBU INH ×3 (01:36→12:04)
[2025-05-20] MEDS: ALBUTEROL/IPRATROPIUM (Duoneb) RT SOL 3 ML NEBU INH (01:36)
[2025-05-20] MEDS: BACLOFEN 10 MG TABLET PO (01:40)
[2025-05-20] MEDS: oxyCODONE HCL 5 MG IR TAB 10 MG GT ×3 (05:07→21:47)
[2025-05-20] MEDS: HEPARIN SOD INJ 5000 UNIT/ML VIAL SC ×3 (05:07→21:48)
[2025-05-20] MEDS: MEROPENEM INJ 1,000 MG in SODIUM CHLORIDE 0.9% (Popper) 50 ML 100 MG IV ×3 (05:07→21:44)
[2025-05-20] MEDS: PHENobarbital INJ 130 MG/1 ML VIAL 260 MG IVP ×3 (05:07→21:46)
[2025-05-20 06:48] LABS: Alanine Aminotransferase 56 U/L (10-49); Albumin, Serum 2.5 gm/dL (3.5-5.0); Albumin/Globulin Ratio 1.5 (1.2-2.2); Alkaline Phosphatase 90 U/L (46-116); Anion Gap 13 (7-16); Aspartate Amino Transferase 87 U/L (0-34); BUN/Creatinine Ratio 22 Ratio (12-20); Bilirubin,Total 0.2 mg/dL (0.3-1.2); Blood Urea Nitrogen 11 mg/dL (9-23); Calcium 7.6 mg/dL (8.3-10.6); Calcium (Corrected) 8.8 mg/dL (8.5-10.1); Carbon Dioxide 25.8 mMol/L (20.0-31.0); Chloride 105 mMol/L (98-107); Creatinine (Component) 0.5 mg/dL (0.6-1.3); Estimated Creatinine Clearance 188.4 mL/min (>60); Globulin 1.7 gm/dL (2.3-3.5); Glucose 119 mg/dL (74-106); Magnesium 1.7 mg/dL (1.6-2.6); Osmolality,Calculated 287 (275-295); Phosphorous 6.0 mg/dL (2.4-5.1); Potassium 5.0 mMol/L (3.4-5.1); Procalcitonin 0.28 ng/ml (0.0-0.49); Sodium 144 mMol/L (136-145); Total Protein 4.2 gm/dL (5.7-8.2); Triglycerides 221 mg/dL (30-150); eGFR > 60 See Note
[2025-05-20 07:48] LABS: Basophils # (Auto) 0.1 Thou/mm3 (0.0-0.2); Basophils % (Auto) 1 % (0-2.5); Eosinophils # (Auto) 0.5 Thou/mm3 (0.0-0.5); Eosinophils % (Auto) 5 % (0-10); Hematocrit 23.6 % (41.0-53.0); Immature Granulocytes Auto 0.11 Thou/mm3 (0.00-0.00); Lymphocytes # (Auto) 1.9 Thou/mm3 (1.0-4.8); Lymphocytes % (Auto) 23 % (10-50); Mean Corpuscular HGB Conc 32.6 g/dl (31.0-37.0); Mean Corpuscular Hemoglobin 28.2 pg (25.0-35.0); Mean Corpuscular Volume 86 fL (80-100); Monocytes # (Auto) 1.3 Thou/mm3 (0.0-0.8); Monocytes % (Auto) 15 % (0-12); Neutrophils # (Auto) 4.7 Thou/mm3 (1.8-7.7); Neutrophils % (Auto) 55 % (37-80); Nucleated Red Blood Cell # 0.00 Thou/mm3 (0.00-0.00); Nucleated Red Blood Cell % 0 /100 WBC (0); Platelet Count 569 Thou/mm3 (140-440); RDW Standard Deviation 46.0 fL (35.1-43.9); Red Blood Count 2.73 Miln/mm3 (4.50-5.90); White Blood Count 8.5 Thou/mm3 (3.8-10.6)
--- NOTE | 2025-05-20 07:57 | RESP.EEG ---
eeg completed and ready for review
[2025-05-20 08:16] LABS: Hemoglobin 7.7 g/dL (13.5-16.0)
--- NOTE | 2025-05-20 09:12 | ESPR_ITS ---
Subjective Subjective Interval history: back on merrem per primary team. despite neg procal this am Exam Vital Signs Temp Pulse Resp BP Pulse Ox O2 Del Method O2 Flow Rate 100.1 F 115 H 21 H 132/63 H 98 Mechanical Ventilation 35 05/20/25 03:00 05/20/25 06:13 05/20/25 06:13 05/20/25 06:00 05/20/25 06:13 05/19/25 16:00 05/16/25 12:00 FiO2 35 05/20/25 06:13 Objective - Internal Medicine Labs 05/20/25 07:15 05/20/25 05:19 Labs: Laboratory Results - last 24 hr 05/20/25 05/20/25 05:19 07:15 WBC 8.5 RBC 2.73 L Hgb 7.7 L Hct 23.6 L MCV 86 MCH 28.2 MCHC 32.6 RDW Std Deviation 46.0 H Plt Count 569 H D Neut % (Auto) 55 Lymph % (Auto) 23 [place] % (Auto) 15 H Eos % (Auto) 5 Baso % (Auto) 1 Neut # (Auto) 4.7 Lymph # (Auto) 1.9 [place] # (Auto) 1.3 H Eos # (Auto) 0.5 Baso # (Auto) 0.1 Immature Gran # (Auto) 0.11 H Absolute Nucleated RBC 0.00 Immature Gran % 1 H Nucleated RBC % 0 Sodium 144 Potassium 5.0 Chloride 105 Carbon Dioxide 25.8 Anion Gap 13 BUN 11 Creatinine 0.5 L Estim Creat Clear Calc 188.4 eGFR > 60 BUN/Creatinine Ratio 22 H Glucose 119 H Calculated Osmolality 287 Calcium 7.6 L Corrected Calcium 8.8 Phosphorus 6.0 H Magnesium 1.7 Total Bilirubin 0.2 L AST 87 H ALT 56 H Alkaline Phosphatase 90 Total Protein 4.2 L Albumin 2.5 L Globulin 1.7 L Albumin/Globulin Ratio 1.5 Triglycerides 221 H Procalcitonin 0.28 ABG Interpretation ABG results: 05/09/25 05/09/25 05/09/25 11:56 13:40 18:50 ABG pH 7.40 7.27 L D 7.28 L ABG pCO2 40 43 55 H D ABG pO2 131 H 53 L* D 70 L ABG HCO3 25 20 26 ABG O2 Saturation 99 H 81 L 92 ABG Base Excess 0 -7 L -2 10/14/25 10/15/25 10/16/25 00:14 05:06 01:18 ABG pH 7.35 7.33 L 7.39 ABG pCO2 42 D 54 H D 48 ABG pO2 103 D 93 94 ABG HCO3 23 28 H 29 H ABG O2 Saturation 99 H 98 98 ABG Base Excess -3 2 3 05/12/25 05/12/25 05/13/25 03:58 11:50 05:10 ABG pH 7.46 H 7.39 7.19 L* D ABG pCO2 41 48 60 H D ABG pO2 105 58 L* D 114 H D ABG HCO3 29 H 29 H 23 ABG O2 Saturation 99 H 90 L 98 ABG Base Excess 5 H 4 H -6 L 05/17/25 05/18/25 05/19/25 01:30 04:09 04:43 ABG pH 7.38 7.43 7.47 H ABG pCO2 46 44 43 ABG pO2 90 83 80 L ABG HCO3 27 H 29 H 31 H ABG O2 Saturation 98 97 97 ABG Base Excess 2 5 H 7 H Assessment & Plan A&P Narrative viral findings on pcr testing at health dept. resp failure it is common that abx are given in this setting. but it is ok to stop them too. drug fever can be expected to last a few days if that is your working dx. I am ok with him off abx entirely. Time Spent With Patient Time: Total time spent is greater than 50% in coordination of care (as documented) at patient's floor/unit and/or counseling patient:
[2025-05-20] MEDS: levETIRAcetam INJ 100 MG/ML VIAL 5ML 800 MG IV (09:20)
[2025-05-20] MEDS: PROPOFOL 1,000 MG IVPB 1,000 MG/100 ML VIAL 12.618 MG IV ×2 (09:26→16:07)
[2025-05-20] MEDS: POLYETHYLENE GLYCOL 17 GM PACKET PO (09:27)
[2025-05-20] MEDS: SEVELAMER CARBONATE 0.8 GM PACKET (NON-FORMULARY) GT (12:27)
[2025-05-20] MEDS: fentaNYL 2,500 MCG/250 ML BAG 2,500 MCG/250 ML BAG 15 MCG IV (12:28)
[2025-05-20] MEDS: Magnesium Sulfate 4 GM Ivpb 4 GM/50 ML BAG IV (12:35)
--- NOTE | 2025-05-20 15:49 | PC.SS ---
Update: Patient remains intubated/sedated. Patient on restraints. Patient receiving IV antibiotics. Patient is not receiving pressor support. NG tube feeding in place. Patient in possession of low grade fever.
--- NOTE | 2025-05-20 18:15 | ESPR_ITS ---
<Statement entered by Jeanine Baeza MD - 05/21/25 07:46> TOTAL TIME: 45MINUTES ON DIRECT MEDICAL CARE, MANAGEMENT - COORDINATION AND COUNSELING > 50% OF TOTAL TIME I saw and evaluated the patient. I reviewed the resident?s note and agree with findings and plan as documented in the resident?s note. still febrile - cxr without significant change had to repeat Sputum ETT clx - prior poor sample hemodynamics acceptable further weaned sedation by decreasing phenobarb and versed is completely off - remains on klonopin 2mg tid (will consider reducing depending on condition) <Statement entered by Kamlesh Baer MD - 05/20/25 19:30> Patient seen and examined at bedside. I discussed and supervised with the medical assistant internal medicine physician who took care of this patient. I personally saw and examined the patient. I agree with most of the assessment and plan. Patient was calm overnight, no fever spikes. Sputum culture contaminated with epithelial cells, repeat sputum culture was ordered. Increased Keppra per nephrology condition following EEG. Down titrated phenobarbital. Spoke with patient's family, who denied any known history of DVT. Plan of care discussed with attending Dr. Baeza. Kamlesh Baer MD PGY-2 Documentation for date of: 05/20/25 Subjective Subjective Interval history: 05/20/2025: Overnight, patient had a fever spike of 101.2F. Patient remained on Propofol 40 and Fentanyl 150 for sedation. Precedex was not needed for agitation. Urine output was 2800 cc in the past hours with no gross hematuria. No bowel movement. Patient?s phenobarbital dose was adjusted to 260 mg every 8 hours. Keppra dose was increased to 1000 mg twice daily as per the neurologist?s recommendation. An EEG revealed electrographic seizure activity. A repeat sputum culture was obtained due to contamination of the previous sample. Additionally, a gradual wean of propofol and fentanyl was initiated as tolerated. 05/19/2025: Overnight, patient had a fever spike of 102.2?F. Due to agitation, the Versed infusion was increased from 4 mg/gtt to 8mg/gtt. Patient was also receiving Propofol 30 and Fentanyl 150. Patient had one bowel movement and produced 1L of urine over the past 12 hours, with no evidence of gross hematuria. Versed 4 mg gtt was titrated up to 8mg gtt for patient's agitation. Patient was on Propofol 30 and Fentanyl 150. Patient had one bowel movement. Urine output was 1L in the past 12 hours with no gross hematuria. This morning, clonazepam 2 mg PO TID was initiated, Propofol infusion was increased to 50 mcg/kg/min, and fentanyl was maintained at 50 mcg/hr. The versed infusion was discontinued, and Meropenem was restarted to treat Pseudomonas pneumonia, since the patient continued to spike fevers despite discontinuation of the medication. Sputum culture and EEG will be repeated. Heparin was restarted for DVT PPX. 05/18/2025: Overnight, patient remained on Propofol 30 and Fentanyl 300, with Versed 2mg dose x1. Magnesium was given for bronchodilation. Ibuprofen given for fever. Plan was to wean off sedation and extubate the patient today, but due to significant oral secretions and concerns about potential aspiration and the patient's inability to protect the airway, the decision was made to keep the patient intubated for now. A spontaneous breathing trial was attempted, and the patient?s lungs are functioning well. However, given the ongoing agitation, sedation could not be reduced. Phenobarbital dose was increased from 130mg to 260mg every 6 hours, and a 4mg Versed drip was started. Olanzapine was discontinued, and both doxycycline and meropenem were stopped due to concerns of a potential drug reaction, as fever spikes worsened after the initiation of meropenem on 05/12. Heparin was restarted yesterday for a DVT in the left brachial vein but was discontinued this morning due to ongoing hematuria without clots. A follow-up Doppler will be performed in 2-3 days to assess whether the DVT has resolved. Patient?s urine output was 2240cc over the past 12 hours. Maintenance fluids were started at 100ml/hr to manage the increased urine output. ICU team spoke with the patient's mother today, providing updates on the changes in the medication regimen and the patient's current status. Informed her that this is Day 9 of intubation, and there are four more days to attempt extubation before considering a tracheostomy. TSH, EBV, and CMV panels were ordered for further evaluation. 05/17/2025: Overnight,patient was placed on droplet precautions due to positive rhinovirus and human metapneumovirus. Patient received a 4 mg dose of Versed for agitation. Heparin drip was initiated for an upper extremity DVT but was paused at 12:15 AM due to hematuria without clots. Urine output was approximately 170 cc/hr, and the patient had two bowel movements since yesterday. Today, the patient underwent bronchoscopy and tolerated the procedure well, with stable gas exchange observed. To facilitate weaning off fentanyl and propofol, the patient was started on phenobarbital 13 mg and oxycodone 10 mg scheduled TID. Will consider adding Precedex to further support the weaning process and work towards extubation tomorrow. Heparin drip for the DVT has been restarted as the hematuria is improving. Additionally, 1L of IV LR was administered to address hyperkalemia and hyperphosphatemia on AM labs. Plan is to remove the Hawkins catheter tomorrow, 05/18. 05/16/2025: Overnight, patient experienced intermittent spasmodic jerking episodes, lasting about 15-20 minutes at a time. During these episodes, the patient becomes tachycardic and febrile. Baclofen 10mg was administered, followed by a single dose of midazolam 2mg IV for agitation. Patient remains on fentanyl 100 mcg/hr and propofol 50 mcg/kg/min for sedation. Patient spiked a fever of 102.6?F, for which IV tylenol was given. A subsequent temperature of 102.4?F was treated with ibuprofen. The Hawkins catheter was replaced overnight. Urine output over the past 12 hours was approximately 850 mL. Patient has not had a bowel movement since 05/13, will add miralax. Due to persistent fevers, doxycycline 100 mg IV BID was initiated for gram-positive cocci coverage. Blood cultures will be repeated, and a right upper quadrant ultrasound has been ordered to evaluate for potential hepatobiliary source of infection. Liver enzymes are improved from yesterday. Planned Interventions: Initiate phenobarbital 130 mg IV every 6 hours and begin weaning off propofol. Increased olanzapine from 5 mg GT QHS to 5 mg TID. Perform bilateral upper extremity ultrasound to assess for DVT. Repeat UA, CXR, CT head and abd/pelvis. Check lipase levels. 05/15/2025: Overnight, the patient developed a fever of 101.8?F. PO acetaminophen was switched to IV formulation by the night team. Temperature improved to 99.5?F by morning. Urine output over the past 12 hours was approximately 620 cc. Liver enzymes continue to trend upward, will hold acetaminophen for now. Patient was weaned off midazolam infusion today. Plan is to begin tapering propofol next. Antipsychotic regimen was adjusted from quetiapine to olanzapine to minimize risk of QTc prolongation. Repeat chest X- ray showed improvement in bilateral pneumonia. Bronchoscopy was performed yesterday (05/14). Repeat procedure is being considered for 05/16. Increase in WBCs and fever likely from bronchoscopy. 05/14/2025: No acute events overnight. Stable on versed/ fentanyl and propofol. No vasopressor requirements. Patient underwent bronchoscopy, well tolerated. Gas exchange stable. PPeak remains in mid20s. Patient on minimal FiO2 and PEEP now. Good ventilator synchrony. Continues to have heavy drooling and output form upper airway. Minimal from ETT now. 05/13/2025: Patient increased FiO2 overnight to 100%. Difficulty managing secretions. Bleeding from nose and plugging. Agitated with maximal dose of precedex and benadryl pushes. Patient with low grade temp to 100.4F. Mild secretions from ETT, pink/ frothy. 05/12/2025: Patient weaned down on sedation. Tmax 102 degrees at 1600 hrs. 05/11. Patient developed mild hepatitis, likely response to medications, will monitor. Patient successfully weaned off of propofol and fentanyl, Precedex initiated. Patient extubated, placed on high flow. Continues to have high secretions, treated with chest PT, oral suctioning as needed, ipratropium breathing treatments scheduled. Patient notably agitated, treating with Benadryl as needed and Precedex drip. Will continue to try and decrease sedation while maintaining patent airway. Sputum culture grew thurman resistant Pseudomonas, meropenem initiated. Will continue Levaquin for now pending cultures. Ear cultures taken. Patient maintaining good urine output, will replete volume if patient exceeds greater than 2 L output. 05/11/2025: Overnight, the patient became increasingly agitated and was observed biting on the endotracheal tube. In response, propofol was increased from 40 mcg/kg/min to 45 mcg/kg/min, and fentanyl was increased from 200 mcg/hr to 250 mcg/hr. The plan is to attempt weaning the patient off sedation today, and work towards extubation. A lumbar puncture was performed, which showed 3 WBCs. Infection from meningitis is less likely, but culture results are pending for confirmation. Today, the patient has been experiencing a low-grade fever, with the highest recorded temperature being 100.4?F. After the Hawkins catheter was placed, the patient had 1700 cc of urine output over the past 12 hours. Followed up with Dr. Jacky Cuadra (ENT in [place]). Dr. Cuadra stated that there is nothing additional he could identify on the CT imaging that the radiologist has not already seen. And that if there was something it would likely be surgical and he does not perform surgeries. He recommended covering for Pseudomonas with clindamycin and Unasyn. The plan is to start levofloxacin for Pseudomonas coverage as well. Additionally, Dr. Cuadra suggested culturing the ear. 05/10/2025: Patient remained sedated with propofol and fentanyl throughout the night, maintaining adequate sedation levels. Around 2 AM, the propofol dose was reduced due to MAP in the 60s. 1L of LR was administered on top of the ongoing IV maintenance fluids at 100cc/hr. Following this, the MAP remained stable above 65. At 6:50 PM on 05/09, an ABG revealed a pH of 7.28, pCO2 of 55, and pO2 of 70, indicative of respiratory acidosis. Patient was given 5 grams of magnesium and 15 mg of albuterol over the course of an hour to promote bronchodilation. Magnesium also needed to be repleted. A repeat ABG showed normalization of the respiratory parameters. Patient's Hawkins catheter was removed and replaced with a QiVi catheter overnight per the patient's father?s request. However, the patient developed urinary retention. A bladder scan performed at 6 AM showed 295cc of retained urine, and a subsequent scan in the afternoon revealed 439cc. Primary team consulted ICU team. On 05/09, two rapid responses were initiated due to the patient?s escalating agitation and anxiety. Patient appeared to be in significant pain from his paraphimosis. The primary team consulted the ICU for further management, as the patient had already received diazepam, haldol, versed, and dilaudid earlier that morning, with inadequate relief. Additionally, there was concern over a decline in his pO2 levels. The initial ABG at 11:56 showed: pH 7.40, pCO2 40, pO2 131, HCO3 25. A repeat ABG at 13:40 revealed: pH 7.27, pCO2 43, pO2 53, HCO3 20. Upon evaluation by the ICU team, the patient was noted to be extremely agitated and wearing an oxygen mask, with audible gurgling sounds coming from the upper airway, raising concern for potential airway compromise. Given the risk of inadequate airway protection, the decision was made to transfer the patient to the ICU for intubation and further management. In the ICU, the patient was intubated. Urology, Dr. Vargas, was consulted earlier in the day. He was able to successfully perform a reduction of the paraphimosis. Telemetry Course: Patient was admitted to telemetry for further workup and management of sepsis of unknown source, with concern for meningitis. Empiric broad-spectrum antibiotic and antiviral therapy were started, consisting of ceftriaxone 2g IV twice daily, vancomycin (pharmacy to dose), ampicillin, and acyclovir. Neurology was consulted. CT of the orbit, sella, and inner ear was ordered given the patient?s history of acute mastoiditis, which showed severe bilateral chronic mastoiditis, bilateral otitis externa, bilateral otitis media, and bilateral cholesteatomas in the attics. CT head was also performed and was negative for acute hemorrhage, mass effect, or midline shift. Findings included prominent sphenoid, ethmoid, and maxillary antral sinusitis, bilateral chronic mastoiditis, bilateral otitis media, and opacification in the bilateral attics. For the patient?s seizures, his home medications of valproic acid and levetiracetam were restarted. Orders for midazolam and Haldol were placed as needed for breakthrough seizures and agitation. An ice pack was ordered for his paraphimosis. Infectious disease was also consulted. History of Present Illness: 24-year-old male with a past medical history significant for cerebral palsy, asthma, seizure disorder, chronic mastoiditis (previously treated with tympanostomy tube placement for recurrent otitis media, now removed), recurrent pneumonia, and chronic PEG tube dependence, presented to the ED on 05/08/2025 with a fever lasting over 24 hours. The patient also had a witnessed seizure episode lasting 5-10 seconds, characterized by tonic-clonic activity confined to the left side of the body. ED Course: -Initial vitals were: BP 122/84, HR 176, RR 26, T 105F, O2 sat 96% on room air. -Labs significant for: CBC showed a WBC of 16.3. CMP showed Na 148, K 5.2, Cl 107, bicarbonate 18.7, anion gap 22, creatinine 1.3 (baseline 0.7), lactic acid 3.2, alkaline phosphatase 120, LDH 352, total CK 1048, procalcitonin: 0.14. Urinalysis negative. Influenza A/B testing was negative. -Imaging included: EKG showed supraventricular tachycardia of HR [address] and T-wave abnormality. CXR showed no aspiration pneumonia but was noted to be of poor inspiratory effort. CT CAP w/o contrast seemed to show no gross infiltrates or other notable findings but was noted to be severely degraded by patient motion. -In the ED, patient was given acetaminophen 975 mg, ceftriaxone 1 gram IV, midazolam 2 mg IV x1, albuterol 2.5 mg, Zosyn 3.375 gram, 2 L NS fluid infusion, and 1 L LR fluid infusion. In the ED, the patient was agitated and pulled out his IV. Attempts at peripheral access were unsuccessful, and a right femoral central line was placed. Exam Vital Signs Temp Pulse Resp BP Pulse Ox O2 Del Method O2 Flow Rate 101.1 F H 127 H 22 H 136/83 H 99 Mechanical Ventilation 35 05/20/25 18:00 05/20/25 18:00 05/20/25 12:04 05/20/25 18:00 05/20/25 18:00 05/20/25 18:00 05/16/25 12:00 FiO2 35 05/20/25 18:00 Narrative Exam Physical Exam General: sedated and intubated, nonverbal at baseline, not in acute distress. RASS score -5 (no response to voice or physical stimulation). Head: Normocephalic, atraumatic. Eyes: PERRL. Anicteric. Bilateral lateral eye scleral hemorrhage. Mouth/Throat: Poor dentition. Oral mucosa moist with excessive secretions. Cough reflex intact. ETT in place. Cardiovascular: Regular rate and rhythm, no murmur. Respiratory: Rhonchi to auscultation in bilateral lung thompson. Gastrointestinal: PEG tube in place, site is clean, dry and intact. Soft, no guarding or rebound tenderness. Genitourinary: Decrease swelling of glans penis. Hawkins in place. Extremities: Contracted and swollen hands. No edema, cyanosis, mottling, clubbing. 2+ radial pulse bilaterally, 2+ posterior tibial pulse bilaterally. Skin: Rash near buttock area. Old IV site on left medial upper arm with erythema and old adhesive outline, no purulent drainage. Objective Labs 05/21/25 04:30 05/21/25 04:30 Labs: Laboratory Results - last 24 hr 05/20/25 05/20/25 05:19 07:15 WBC 8.5 RBC 2.73 L Hgb 7.7 L Hct 23.6 L MCV 86 MCH 28.2 MCHC 32.6 RDW Std Deviation 46.0 H Plt Count 569 H D Neut % (Auto) 55 Lymph % (Auto) 23 [place] % (Auto) 15 H Eos % (Auto) 5 Baso % (Auto) 1 Neut # (Auto) 4.7 Lymph # (Auto) 1.9 [place] # (Auto) 1.3 H Eos # (Auto) 0.5 Baso # (Auto) 0.1 Immature Gran # (Auto) 0.11 H Absolute Nucleated RBC 0.00 Immature Gran % 1 H Nucleated RBC % 0 Sodium 144 Potassium 5.0 Chloride 105 Carbon Dioxide 25.8 Anion Gap 13 BUN 11 Creatinine 0.5 L Estim Creat Clear Calc 188.4 eGFR > 60 BUN/Creatinine Ratio 22 H Glucose 119 H Calculated Osmolality 287 Calcium 7.6 L Corrected Calcium 8.8 Phosphorus 6.0 H Magnesium 1.7 Total Bilirubin 0.2 L AST 87 H ALT 56 H Alkaline Phosphatase 90 Total Protein 4.2 L Albumin 2.5 L Globulin 1.7 L Albumin/Globulin Ratio 1.5 Triglycerides 221 H Procalcitonin 0.28 ABG Interpretation ABG results: 05/09/25 05/09/25 05/09/25 11:56 13:40 18:50 ABG pH 7.40 7.27 L D 7.28 L ABG pCO2 40 43 55 H D ABG pO2 131 H 53 L* D 70 L ABG HCO3 25 20 26 ABG O2 Saturation 99 H 81 L 92 ABG Base Excess 0 -7 L -2 05/10/25 05/11/25 05/12/25 00:14 05:06 01:18 ABG pH 7.35 7.33 L 7.39 ABG pCO2 42 D 54 H D 48 ABG pO2 103 D 93 94 ABG HCO3 23 28 H 29 H ABG O2 Saturation 99 H 98 98 ABG Base Excess -3 2 3 05/12/25 05/12/25 05/13/25 03:58 11:50 05:10 ABG pH 7.46 H 7.39 7.19 L* D ABG pCO2 41 48 60 H D ABG pO2 105 58 L* D 114 H D ABG HCO3 29 H 29 H 23 ABG O2 Saturation 99 H 90 L 98 ABG Base Excess 5 H 4 H -6 L 05/17/25 05/18/25 05/19/25 01:30 04:09 04:43 ABG pH 7.38 7.43 7.47 H ABG pCO2 46 44 43 ABG pO2 90 83 80 L ABG HCO3 27 H 29 H 31 H ABG O2 Saturation 98 97 97 ABG Base Excess 2 5 H 7 H Quality Measures Quality Measures VTE prophylaxis (SCDs) and sepsis Current suspected stage: sepsis Possible source: pulmonary Blood cultures ordered: yes Antibiotic ordered: Yes Assessment & Plan Assessment Current Active Medications: Generic Name Dose Route Start Last Admin Trade Name Freq PRN Reason Stop Dose Admin Acetaminophen 650 mg 05/14/25 05:13 05/14/25 18:15 Acetaminophen 325 Mg Tablet PO 06/13/25 05:12 650 mg On Hold: 05/14/25 23:01 Q6HR PRN Administration Fever >100.4 Albuterol/Ipratropium 3 ml 05/09/25 18:19 05/20/25 01:36 Albuterol/Ipratropium (Duoneb) Rt Racquel 3 Ml Nebu INH 06/08/25 18:18 3 ml Q2HR PRN Administration SHORTNESS OF BREATH OR WHEEZE Baclofen 10 mg 05/16/25 00:26 05/20/25 01:40 Baclofen 10 Mg Tablet PO 06/15/25 00:25 10 mg TID PRN Administration Spasms Clonazepam 2 mg 05/19/25 08:45 05/20/25 14:49 Clonazepam 0.5 Mg Tablet PO 05/24/25 08:44 2 mg TID KYA Administration Heparin Sodium (Porcine) 5,000 unit 05/19/25 06:00 05/20/25 14:46 Heparin Sod Inj 5000 Unit/Ml Vial SC 06/02/25 05:59 5,000 unit Q8HR KYA Administration Valproic Acid 187.5 mg/ Sodium 51.875 mls @ 51.875 mls/hr 05/09/25 18:00 05/20/25 12:27 Chloride IV 06/07/25 17:59 51.8 mls/hr Q6HR KYA Administration Protocol Propofol 1,000 mg in 100 mls @ 2.103 mls/hr 05/13/25 04:16 05/20/25 16:07 Diprivan Ivpb IV 06/12/25 04:15 30 mcg/kg/min .Q24H PRN 12.618 mls/hr PER PROTOCOL Administration Protocol 5 MCG/KG/MIN Fentanyl Citrate 2,500 mcg in 250 mls @ 2.5 mls/hr 05/18/25 07:25 05/20/25 12:28 Sublimaze Inj 2,500 Mcg/250 Ml Bag IV 05/23/25 07:24 150 mcg/hr .Q24H PRN 15 mls/hr PER PROTOCOL Administration Protocol 25 MCG/HR Midazolam HCl 100 mg in 100 mls @ 4 mls/hr 05/18/25 10:33 05/19/25 16:00 Versed Pf Inj In Ns Premix IV 05/23/25 10:32 0 mg/hr .Q24H PRN 0 mls/hr PER PROTOCOL Titration Protocol 4 MG/HR Meropenem 1,000 mg/ Sodium 50 mls @ 100 mls/hr 05/19/25 14:00 05/20/25 14:49 Chloride IV 05/22/25 13:59 100 mls/hr Q8HR KYA Administration Ipratropium [place] 0.5 mg 05/12/25 12:00 05/20/25 12:04 Ipratropium Rt 0.5 Mg/ 2.5 Ml Nebu INH 06/11/25 11:59 0.5 mg Q6HR KYA Administration Levetiracetam 1,000 mg 05/20/25 21:00 Levetiracetam Inj 100 Mg/Ml Vial 5ml IV 06/19/25 20:59 BID KYA Ondansetron HCl 4 mg 05/08/25 11:36 Ondansetron Inj 2 Mg/Ml Inj 2 Ml IVP 06/07/25 11:35 Q6HR PRN NAUSEA OR VOMITING Protocol Oxycodone HCl 10 mg 05/17/25 14:00 05/20/25 14:49 Oxycodone Hcl 5 Mg Ir Tab GT 05/22/25 13:59 10 mg TID KYA Administration Pantoprazole Sodium 40 mg 05/12/25 11:25 05/20/25 09:20 Pantoprazole Inj 40 Mg Vial IVP 06/11/25 11:24 40 mg QDAY KYA Administration Pharmacy Consult 1 each 05/08/25 16:12 Pharmacy To Consult Patient XX 06/07/25 16:11 PRN PRN CONSULT Phenobarbital Sodium 260 mg 05/20/25 14:00 05/20/25 14:48 Phenobarbital Inj 130 Mg/1 Ml Vial IVP 06/03/25 13:59 260 mg Q8HR KYA Administration Polyethylene Glycol 17 gm 05/16/25 09:15 05/20/25 09:27 Polyethylene Glycol 17 Gm Packet PO 06/15/25 09:14 17 gm QDAY KYA Administration Sodium Chloride 3 ml 05/12/25 09:33 Sodium Chloride Rt Racquel 0.9% 3 Ml Nebu INH 06/11/25 09:32 PRN PRN SOLN Sodium Chloride 3 ml 05/17/25 11:43 Sodium Chloride Rt Racquel 0.9% 3 Ml Nebu INH 06/16/25 11:42 PRN PRN SOLN Plan 24-year-old male with cerebral palsy, asthma, seizure disorder, chronic mastoiditis, recurrent pneumonia, and chronic PEG tube dependence presented with fever and seizure, was admitted for sepsis workup, and later transferred to the ICU for intubation due to concerns about airway protection. Neurology #Agitated delerium Patient was extremely agitated before ICU admission, likely due to pain from paraphimosis. Patient initially sedated with propofol and fentanyl, titrated to Precedex with Benadryl before extubation. Patient failed extubation and was intubated on 05/12. Propofol and fentanyl was restarted. Diagnostic Test: - 05/20 AM: RASS was -4, no response to voice but movement to physical stimuli. Treatment Review (completed) - Versad 5mg/h was tapered off on 05/15. - Phenobarbital 130 mg IV Q6HR 05/16-05/18. - Olanzapine 5mg daily 05/13-05/16. - Olanzapine 5mg TID 05/16-05/18. - Midazolam 4mg --> 8mg gtt 05/18-05/19. Treatment Plan: - Decrease Phenobarbital 260 mg IV Q6H to Q8H. - Continue Clonazepam 2 mg PO TID. - Continue Oxycodone 10mg GT TID. - Currently on Propofol 40 mcg/kg/min and Fentanyl 150 mcg/h. Continue to wean off propofol and fentanyl as tolerated, will add Precedex if patient starts to get agitated. - If continues to be on Propofol, recheck TG on 05/23 (every 72 hours). #History of seizures #Cerebral palsy Diagnosis: - Temperature of 105F on admission. - EEG 05/11 unremarkable Treatment Plan: - Repeat EEG 05/20: electrographic seizure activity. - Increase levetiracetam 800mg to 1000 mg BID per neurology recommendation. - Continue valproic acid 187.5 mg Q6H. - Adjust seizure medications if breakthrough seizures persist. - Seizure precautions. - Aspiration precautions. Cardiovascular #Sinus tachycardia Likely due to infection Diagnostic Test: - Fever spike up to 101.2F overnight. Treatment Plan: - No specific treatment required at this time. Will treat underlying cause. - Continue close cardiac monitoring. - Monitor electrolytes and replete as needed. - Maintain Mg > 2 and K > 4 to reduce arrhythmia risk. Respiratory #Failed extubation 05/12 #Acute hypoxic respiratory failure Diagnostic Test: - CXR 05/11: Mild bilateral perihilar pneumonia. To assess for ventilator associated pneumonia. Not much change from 05/09 CXR. - Pseudomonas from ETT secretions previously (05/09). - CXR 05/15: improvement in bilateral pneumonia. - CXR 05/16: worsening diffuse severe left lung pneumonia. - ABG 05/18: pH 7.43, pCO2 44, pO2 83 and HCO3 29. - CXR 05/19: Significant bilateral pneumonia. Treatment Review (completed): - Patient extubated to [facility] 05/12, chest film with centro-bronchovascular congestion and multifocal pneumonia. - Reintubated overnight 05/13- VC/AC PPeak 20 PEEP 5 FiO2 40%. - Patient underwent bronchoscopy on 05/14 and 05/17 for secretions, well tolerated. Treatment Plan: - Continue meropenem (05/12-05/17, 05/19-05/22, for a total of ten days). - Repeat sputum cultures as prior one is contaminated (05/21 Epithelial Cells/lpf). - Bronchoscopy culture pending. - Chest physiotherapy BID. - Given the patient's current condition, including severe tachycardia and excessive secretions, he is not considered a suitable candidate for extubation at this time. Therefore, mechanical ventilation will be continued to support respiratory status. - Patient will be reassessed daily to determine if weaning from sedation and extubation can be possible. This is day 11 of intubation, and if extubation remains unfeasible, the possibility of a tracheostomy will need to be considered. Avoid prolonged ETT placement beyond 14-21 days. - Continue MV settings: PEEP 6.0, Ppeak 26.6, Pplateau 21.1. #Bronchospasm #History of asthma Diagnostic Test: - Although the patient has a history of asthma, the bronchospasm is most likely from the irritant effect of blood in the airway. A small amount of blood, which was likely from dryness of the nasal mucosa, was suctioned out during intubation. Treatment Plan: - Magnesium for bronchodilator effect as needed. - Albuterol and Ipratropium as needed. GI, , F/E/N #Chronic PEG tube dependence Treatment Plan: - Jevity 1.5 at 40 ml/hr x 24 hrs via PEG tube by pump (goal). If no IV fluids, water flushes of 35 ml/hr. - ProStat 30ml BID via PEG tube. - Appreciate administrative underwriter recommendations. - Bowel movements resumed after adding miralax. - Triglyceride level 05/14 - 290; 05/17 - 312; 05/20 - 221. - Repeat TG levels every 72 hours when on Propofol, which should be discontinued if triglyceride levels reach or exceed 400 mg/dL to prevent hypertriglyceridemia-associated complications. - Next check 05/23 is patient remains on Propofol. #Hepatitis (uptrending) Likely due to meropenem that could potentially cause hepatotoxicity. Diagnostic Test: - AST 199 --> 48 --> 87. - ALT 152 --> 48 --> 56. - Gallbladder ultrasound 05/16: Normal gallbladder, no gallstones. Fatty infiltration throughout the liver. - Lipase 05/16: 41 wnl. Treatment Plan: - Continue daily LFTs. - Avoid acetaminophen unless fever exceeds 101.0?F or Ibuprofen as alternative. - Will reassess if transaminases continue to rise or clinical status changes. #Hypoalbuminemia Likely due to acute hepatitis Diagnostic Test: - UA had urine proteins 1+. - Albumin 4.9 -->3.3 -->2.8 --> 3.2 --> 3.4 --> 2.8 --> 2.5. Treatment Plan: - Monitor LFTs, INR, and bilirubin. - Maintain on PEG tube feeds per administrative underwriter recommendations. #Acute urinary retention (resolved) Treatment Plan - Maintain hawkins catheter. Monitor UOP. - Monitor urine output, replace fluid if needed. - Hawkins changed and replaced on 05/16. #Paraphimosis (resolved) #Balanitis (resolved) Diagnostic Test: - Edema and tenderness of the glans penis. - Swelling of the distal retracted foreskin. - Constricting band of tissue proximal to the head of the penis at the coronal sulcus. - Hawkins was removed on 05/09 and transitioned to Oivi external urinary catheter. Discussed with family about the need to reinsert hawkins due to the patient's acute urinary retention. Family were in agreement with this plan. Hawkins was reinserted on 05/10 due to urinary retention. Hawkins changed and replaced on 05/16. - S/p reduction of the paraphimosis by Dr. Vargas on 05/09. Treatment Plan: - Control patient's pain with sedation. - Monitor urine output. - Remove hawkins when appropriate. Renal #Hyperkalemia (resolved) #Hyperphosphatemia DDx: acute kidney injury vs hemolysis vs rhabdomyolysis. Diagnostic Test: - Potassium 5.2. - Phosphorus 6.0. - CK 363. - LDH 350. - Uric acid 3.5. - Hemoglobin 8.9 --> 7.7. - Cr 0.6 --> 0.5. Treatment Plan: - Monitor BMP and phosphorus. - Monitor potassium levels to avoid arrhythmias. - Sevelamer 0.8 gm x1. #Acute kidney injury (resolved) DDx: dehydration or vasodilation from sepsis. Diagnositc Test: - Creatinine 1.3 (baseline: 0.7) Treatment Plan: - Continue with free water flushes. - Daily renal panel to trend BUN, Cr, and electrolytes. - Avoid nephrotoxins. - Renally dose meds as appropriate. - Strict I&Os, monitor urine output closely. - Monitor for signs of volume overload or uremic symptoms. #Anion Gap Metabolic Acidosis (resolved) #Lactic acidosis (resolved) DDx: seizures vs sepsis vs acute kidney injury vs hypoperfusion. Likely from seizures as patient has no signs of systemic hypoperfusion such as skin mottling, decreased cap refills. Diagnostic Test: - Admission anion gap 22, lactic acid 16.0, bicarbonate 18.7. Treatment Plan: - Recheck LA as needed. #Rhabdomyolysis (resolving) DDx: seizures vs hyperthermia vs infectious myositis. Diagnostic Test: - CK 1048 --> 3743 --> 1654 --> 338 --> 363. - Witnessed seizure episode lasting 5-10 seconds, characterized by tonic-clonic activity prior to admission. Treatment Plan: - Continue free water flushes at 35 cc/hr. - Monitor urine output. - Correct electrolyte abnormalities. - Control seizures with valproic acid and levetiracetam. - Monitor renal panel. Heme #Acute nonocclusive thrombus in the left brachial vein Diagnostic Test: - Venous doppler study of upper extremities 05/16: Normal right upper extremity deep venous system. Positive for nonocclusive thrombus in the left brachial vein. - Per chart review and patient's parents, patient does not have history of clots. Treatment Review (completed): - Lovenox 30 mg (05-11 - 05/15). - Lovenox 40 mg (05/16). - Heparin loading dose and ggt. Lovenox to heparin due to heparin?s shorter half-life, which allows for more rapid cessation in the event of bleeding, a shorter half life and can be stopped if bleeding occurs. Treatment Plan: - Stopped heparin ggt due to hematuria on 05/18. - Started heparin 5000 SC for DVT PPX on 05/19 as hematuria as resolved. #Thrombocytosis DDx: infection vs reactive Diagnostic Test: - Plt 518 Treatment Plan: - Monitor CMP. #Normocytic Anemia DDx: Anemia of Inflammation vs dilutional anemia vs drug-induced anemia. Likely dilutional anemia since patient had normal hemoglobin on admission and from IV fluids per sepsis protocol. No signs of bleeding. Diagnostic Test: - Hemoglobin 7.9. Treatment Plan: - Monitor H&H. - Type and screen. - Transfusing for Hgb <7 or symptomatic. #Leukocytosis (resolved) DDx: likely due to bronchoscopy vs infection of unknown source vs drug induced Diagnostic Test: - Continue to have fever spikes as high as 102.8?F. - Increase WBCs 8.9 --> 11.1 after bronchoscopy on 05/14. - Increase WBCs 14.7 --> 16.1 after bronchoscopy on 05/17. Treatment Plan: - Treat underlying cause. Treating with meropenem. #Thrombocytopenia (resolved) DDx: Dilutional versus consumption versus increased destruction due to sepsis. Initial decrease is likely due to dilutional in setting of IV fluids, however his WBC and hemoglobin have leveled off platelets have down trended. Diagnostic test: - Platelets: 209 --> 65-->141. Treatment plan: - Monitor daily labs - Avoid excessive oral tracheal suctioning in setting of previous bleed and thrombocytopenia. Endo #no active problems ID #Sepsis #Bilateral chronic mastoiditis #Sinusitis #Bilateral otitis media #Bilateral otitis externa DDx: meningitis vs acute on chronic mastoiditis vs acute febrile illness. Diagnostic Test: - History of chronic mastoiditis. - Met SIRS criteria on admission: T 105F, HR 176, RR 26, PaCO2 26, WBC 16.3. - 05/08 Lactic acid 16.0. - 05/08 CT Head: prominent sphenoid ethmoid maxillary antral sinusitis, bilateral chronic mastoiditis, bilateral otitis media. - 05/08 CT Orbit Sella Inner: severe bilateral chronic mastoiditis, bilateral otitis externa and otitis media, bilateral cholesteatomas in the attics. - 05/08 MRSA screen negative. - 05/09 Sputum culture: 1+ thurman resistance Pseudomonas. - 05/10 Lumbar puncture: clear, WBC 3, glucose 70, total protein 25. - CSF Streptococcus pneumonia Ag negative. - CSF Streptococcus B antigen negative. - CSF Neisseria meningitis B/E.coli K1 negative. - CSF Neisseria meningitis ACY/W135 Ag negative. - CSF haemophilus influenzae B Ag negative. - CSF enterovirus RNA negative. - CSF West Nile virus IgG antibody negative. - CSF West Nile virus IgM antibody negative. - 05/10 Respiratory viral panel: rhinovirus/enterovirus and human metapneumovirus detected. - 05/12 Bilateral ear culture: E coli ESBL. - UA 05/08 and 05/16 negative. - Blood culture 05/08, 05/11, and 05/16 negative. - 05/16 CTAP: Extensive bilateral pneumonia, cystitis pattern, cholelithiasis. - 05/16 CXR: worsening diffuse severe left lung pneumonia. - 05/16 CT Head: unremarkable. - 05/16 Venous doppler ultrasound: Normal right upper extremity deep venous system. Positive for nonocclusive thrombus in the left brachial vein. Treatment Review (completed) - Rocephin 2 gm IV q12HR [05/08-05/11]. - Vancomycin dosed by pharmacy [05/08-05/11] since MRSA screen is negative. - Acyclovir 700 mg IV [05/08-05/11] since LP negative. - Ampicillin 2 gm IV q4HR [05/08-05/09] as patient not in the age group at risk for Listeria infection. - Fluids: 30mL/kg -- 2 L NS fluid infusion and 1 L LR fluid infusion was given in the ED. - Femoral central line removed 05/11, replaced with peripheral access. - Levaquin 750 mg IV [05/11-05/12]. - Doxycycline 100mg IV BID [05/16-05/18] for GPC coverage. - Meropenem 1 g IV [05/12 -05/18]. Treatment Plan: - Topical oxofloxacin. - Continue Meropenem (05/19-05/22) for ten days total. - Patient has limited options in terms of antibiotics in the future as meropenem is broad-spectrum. May have to consider ceftazidime or ceftaroline if he continues to develop recurrent infections. Integumentary #Maculopapular rash to the buttocks DDx: contact dermatitis vs allergic dermatitis Treatment Plan - Patient no longer has diaper on as hawkins is in place. Anticipate rash to improve. Health Maintenance DVT prophylaxis: SCDs, heparin subQ GI prophylaxis: Protonix IV Diet: Jevity Hawkins: present Lines: Peripherals Drips: Propofol, fentanyl. Vent: MV, PPlat <30 and TV < 8 ml/kg IBW CODE STATUS: FULL CODE Patient plan of care was discussed with the senior resident, Dr. Baer, and attending physician, Dr. Baeza. Diaz Coppola, DO Internal Medicine PGY-1
[2025-05-20] MEDS: CALCIUM CARBONATE 600 MG TABLET GT (18:24)
--- NOTE | 2025-05-20 20:14 | PD.RESPRO ---
Documentation for date of: 05/20/25 Subjective Subjective Interval history: Patient examined at bedside. Remains sedated and intubated. No documented fever overnight. Remains on meropenem. On subcu DVT prophylaxis after stopping heparin drip. Repeat EEG showed electrographic seizure activity again. Increase keppra to 1000mg BID and continue valproic acid. Exam Vital Signs Temp Pulse Resp BP Pulse Ox O2 Del Method O2 Flow Rate 101.1 F H 151 H 48 H 161/87 H 100 Mechanical Ventilation 35 05/20/25 18:00 05/20/25 20:03 05/20/25 20:03 05/20/25 20:03 05/20/25 20:03 05/20/25 18:00 05/16/25 12:00 FiO2 35 05/20/25 20:03 Narrative Exam General: sedated, intubated, on MV HEENT: NCAT, No JVD noted. Mucosa moist. pinpoint Pupils are equal and reactive to light bilaterally Cardiovascular: Normal S1 and S2. Regular rate and rhythm. Respiratory: equal breath sounds, rhonchi Abdomen: Soft, nontender, not distended, normal bowel sounds. PEG tube in place : decrease swelling of penis. Osborne inserted with red tinged urine Musculoskeletal: no pitting edema, muscle atrophy, Feet show fixed contractures with inward curvature. Spastic Neuro:deferred Objective Labs 05/21/25 04:30 05/21/25 04:30 Labs: Laboratory Results - last 24 hr 05/20/25 05/20/25 05:19 07:15 WBC 8.5 RBC 2.73 L Hgb 7.7 L Hct 23.6 L MCV 86 MCH 28.2 MCHC 32.6 RDW Std Deviation 46.0 H Plt Count 569 H D Neut % (Auto) 55 Lymph % (Auto) 23 [place] % (Auto) 15 H Eos % (Auto) 5 Baso % (Auto) 1 Neut # (Auto) 4.7 Lymph # (Auto) 1.9 [place] # (Auto) 1.3 H Eos # (Auto) 0.5 Baso # (Auto) 0.1 Immature Gran # (Auto) 0.11 H Absolute Nucleated RBC 0.00 Immature Gran % 1 H Nucleated RBC % 0 Sodium 144 Potassium 5.0 Chloride 105 Carbon Dioxide 25.8 Anion Gap 13 BUN 11 Creatinine 0.5 L Estim Creat Clear Calc 188.4 eGFR > 60 BUN/Creatinine Ratio 22 H Glucose 119 H Calculated Osmolality 287 Calcium 7.6 L Corrected Calcium 8.8 Phosphorus 6.0 H Magnesium 1.7 Total Bilirubin 0.2 L AST 87 H ALT 56 H Alkaline Phosphatase 90 Total Protein 4.2 L Albumin 2.5 L Globulin 1.7 L Albumin/Globulin Ratio 1.5 Triglycerides 221 H Procalcitonin 0.28 ABG Interpretation ABG results: 05/09/25 05/09/25 05/09/25 11:56 13:40 18:50 ABG pH 7.40 7.27 L D 7.28 L ABG pCO2 40 43 55 H D ABG pO2 131 H 53 L* D 70 L ABG HCO3 25 20 26 ABG O2 Saturation 99 H 81 L 92 ABG Base Excess 0 -7 L -2 05/10/25 05/11/25 05/12/25 00:14 05:06 01:18 ABG pH 7.35 7.33 L 7.39 ABG pCO2 42 D 54 H D 48 ABG pO2 103 D 93 94 ABG HCO3 23 28 H 29 H ABG O2 Saturation 99 H 98 98 ABG Base Excess -3 2 3 05/12/25 05/12/25 05/13/25 03:58 11:50 05:10 ABG pH 7.46 H 7.39 7.19 L* D ABG pCO2 41 48 60 H D ABG pO2 105 58 L* D 114 H D ABG HCO3 29 H 29 H 23 ABG O2 Saturation 99 H 90 L 98 ABG Base Excess 5 H 4 H -6 L 05/17/25 05/18/25 05/19/25 01:30 04:09 04:43 ABG pH 7.38 7.43 7.47 H ABG pCO2 46 44 43 ABG pO2 90 83 80 L ABG HCO3 27 H 29 H 31 H ABG O2 Saturation 98 97 97 ABG Base Excess 2 5 H 7 H Quality Measures Quality Measures VTE prophylaxis (SCDs) and sepsis Current suspected stage: sepsis Possible source: pulmonary Blood cultures ordered: yes Antibiotic ordered: Yes Assessment & Plan Assessment Current Active Medications: Generic Name Dose Route Start Last Admin Trade Name Freq PRN Reason Stop Dose Admin Acetaminophen 650 mg 05/14/25 05:13 05/14/25 18:15 Acetaminophen 325 Mg Tablet PO 06/13/25 05:12 650 mg On Hold: 05/14/25 23:01 Q6HR PRN Administration Fever >100.4 Albuterol/Ipratropium 3 ml 05/09/25 18:19 05/20/25 01:36 Albuterol/Ipratropium (Duoneb) Rt Racquel 3 Ml Nebu INH 06/08/25 18:18 3 ml Q2HR PRN Administration SHORTNESS OF BREATH OR WHEEZE Baclofen 10 mg 05/16/25 00:26 05/20/25 01:40 Baclofen 10 Mg Tablet PO 06/15/25 00:25 10 mg TID PRN Administration Spasms Calcium Carbonate 600 mg 05/20/25 18:20 05/20/25 18:24 Calcium Carbonate 600 Mg Tablet GT 06/19/25 18:19 600 mg QDAY KYA Administration Clonazepam 2 mg 05/19/25 08:45 05/20/25 14:49 Clonazepam 0.5 Mg Tablet PO 05/24/25 08:44 2 mg TID KYA Administration Heparin Sodium (Porcine) 5,000 unit 05/19/25 06:00 05/20/25 14:46 Heparin Sod Inj 5000 Unit/Ml Vial SC 06/02/25 05:59 5,000 unit Q8HR KYA Administration Valproic Acid 187.5 mg/ Sodium 51.875 mls @ 51.875 mls/hr 05/09/25 18:00 05/20/25 18:24 Chloride IV 06/07/25 17:59 51.8 mls/hr Q6HR KYA Administration Protocol Propofol 1,000 mg in 100 mls @ 2.103 mls/hr 05/13/25 04:16 05/20/25 18:00 Diprivan Ivpb IV 06/12/25 04:15 30 mcg/kg/min .Q24H PRN 12.618 mls/hr PER PROTOCOL Titration Protocol 5 MCG/KG/MIN Fentanyl Citrate 2,500 mcg in 250 mls @ 2.5 mls/hr 05/18/25 07:25 05/20/25 19:49 Sublimaze Inj 2,500 Mcg/250 Ml Bag IV 05/23/25 07:24 150 mcg/hr .Q24H PRN 15 mls/hr PER PROTOCOL Titration Protocol 25 MCG/HR Midazolam HCl 100 mg in 100 mls @ 4 mls/hr 05/18/25 10:33 05/19/25 16:00 Versed Pf Inj In Ns Premix IV 05/23/25 10:32 0 mg/hr .Q24H PRN 0 mls/hr PER PROTOCOL Titration Protocol 4 MG/HR Meropenem 1,000 mg/ Sodium 50 mls @ 100 mls/hr 05/19/25 14:00 05/20/25 14:49 Chloride IV 05/22/25 13:59 100 mls/hr Q8HR KYA Administration Levetiracetam 1,000 mg 05/20/25 21:00 Levetiracetam Inj 100 Mg/Ml Vial 5ml IV 06/19/25 20:59 BID KYA Ondansetron HCl 4 mg 05/08/25 11:36 Ondansetron Inj 2 Mg/Ml Inj 2 Ml IVP 06/07/25 11:35 Q6HR PRN NAUSEA OR VOMITING Protocol Oxycodone HCl 10 mg 05/17/25 14:00 05/20/25 14:49 Oxycodone Hcl 5 Mg Ir Tab GT 05/22/25 13:59 10 mg TID KYA Administration Pantoprazole Sodium 40 mg 05/12/25 11:25 05/20/25 09:20 Pantoprazole Inj 40 Mg Vial IVP 06/11/25 11:24 40 mg QDAY KYA Administration Pharmacy Consult 1 each 05/08/25 16:12 Pharmacy To Consult Patient XX 06/07/25 16:11 PRN PRN CONSULT Phenobarbital Sodium 260 mg 05/20/25 14:00 05/20/25 14:48 Phenobarbital Inj 130 Mg/1 Ml Vial IVP 06/03/25 13:59 260 mg Q8HR KYA Administration Polyethylene Glycol 17 gm 05/16/25 09:15 05/20/25 09:27 Polyethylene Glycol 17 Gm Packet PO 06/15/25 09:14 17 gm QDAY KYA Administration Sodium Chloride 3 ml 05/12/25 09:33 Sodium Chloride Rt Racquel 0.9% 3 Ml Nebu INH 06/11/25 09:32 PRN PRN SOLN Sodium Chloride 3 ml 05/17/25 11:43 Sodium Chloride Rt Racquel 0.9% 3 Ml Nebu INH 06/16/25 11:42 PRN PRN SOLN Rachel David Baltazar is 24 yr male with PMH of chronic mastoiditis (previously had tympanostomy tube placed for recurrent otitis media, now removed), seizure disorder, recurrent pneumonia, cerebral palsy, chronic PEG tube, and asthma who was brought into ED on 05/08/25 for ongoing fever of over 24 hours and reported episode of witnessed seizure by ED. Patient was septic. Neurology was consulted to for LP to rule out meningitis. #Mastoiditis #rule out Meningitis #Tonic clonic seizure #Hx seizures #Cerebral palsy On admission he was noted to have fever of 105, leukocytosis 16, tachycardia 176, and tachypnic 26. CT orbit sella showed b/L otitis externa and media. Reduced mastoid aeration on the left, b/L chlestatomas. He was started on vancomycin, ceftriaxone 2g BID, ampicillin 2g q4hr, and acyclovir. EEG was negative for seizure activity. LP culture was negative: clear, WBC 3, glucose 70, total protein 25. CSF Streptococcus pneumonia Ag negative , Streptococcus B antigen negative. CSF Neisseria meningitis B/E.coli K1 negative, Neisseria meningitis ACY/W135 Ag negative. CSF haemophilus influenzae B Ag negative. MRSA screen negative. Sputum culture thurman resistant Pseudomonas - meropenam -Discontinued Levofloxacine and started on ear drops Ofloxacin -Increase IV Keppra to 1000mg BID -IV Depakote 187mg q6hr. -seizure precautions -midazolam for breakthrough seizure -Consider trying Glycopyrrolate for secretions if needed. #Paraphimosis #Acute Kidney Injury #Anion Gap Metabolic Acidosis #Lactic acidosis #Elevated total creatine kinase from his hyperkinetic movements #Normocytic Anemia Primary care team to manage above conditions and ongoing care needs. The patient's management plan was discussed with my attending physician Dr. Lang. Zakiya Delacruz, PGY-2 Attending Provider Attestation/Addendum I virtually have seen the patient and I agreed with resident's findings, assessment and plan of care. Persistent fever, suspected drug induced. Off of antibiotics. EEG showed electrographic sz. Continue with AEDs with increasing the Keppra and Depakote as before. Will follow closely with ICU team.
[2025-05-20] MEDS: levETIRAcetam INJ 100 MG/ML VIAL 5ML 1000 MG IV (20:58)
[2025-05-20] MEDS: ACETAMINOPHEN IVPB 1,000 MG/100 ML VIAL 250 MG IV (21:02)
[2025-05-21] VITALS (31 sets, daily range): BP systolic 84–164; BP diastolic 45–87; PULSE 11–136; RESP 16–38; TEMP 36–39; O2SAT 96–100; BMI 34.7
[2025-05-21] MEDS: PROPOFOL 1,000 MG IVPB 1,000 MG/100 ML VIAL 12.618 MG IV (01:00)
[2025-05-21 04:43] LABS: Base Excess 3 (-3-3); HCO3 29 mEq/L (20-26); Inspired Oxygen, FIO2 21 %; O2 Saturation 66 % (91-98); PCO2 50 mmHg (32.0-48.0); pH, Arterial 7.37 (7.35-7.45)
[2025-05-21 04:44] LABS: Allen Test Performed/OK; Puncture Site Left Radial
[2025-05-21 04:45] LABS: PO2 40 mmHg (83-108)
[2025-05-21] MEDS: oxyCODONE HCL 5 MG IR TAB 10 MG GT (05:09)
[2025-05-21 05:21] LABS: Basophils # (Auto) 0.1 Thou/mm3 (0.0-0.2); Basophils % (Auto) 0 % (0-2.5); Eosinophils # (Auto) 0.5 Thou/mm3 (0.0-0.5); Eosinophils % (Auto) 4 % (0-10); Hematocrit 27.1 % (41.0-53.0); Hemoglobin 8.8 g/dL (13.5-16.0); Immature Granulocytes Auto 0.11 Thou/mm3 (0.00-0.00); Lymphocytes # (Auto) 1.8 Thou/mm3 (1.0-4.8); Lymphocytes % (Auto) 15 % (10-50); Mean Corpuscular HGB Conc 32.5 g/dl (31.0-37.0); Mean Corpuscular Hemoglobin 27.7 pg (25.0-35.0); Mean Corpuscular Volume 85 fL (80-100); Monocytes # (Auto) 1.4 Thou/mm3 (0.0-0.8); Monocytes % (Auto) 11 % (0-12); Neutrophils # (Auto) 8.5 Thou/mm3 (1.8-7.7); Neutrophils % (Auto) 69 % (37-80); Nucleated Red Blood Cell # 0.00 Thou/mm3 (0.00-0.00); Nucleated Red Blood Cell % 0 /100 WBC (0); Platelet Count 412 Thou/mm3 (140-440); RDW Standard Deviation 46.4 fL (35.1-43.9); Red Blood Count 3.18 Miln/mm3 (4.50-5.90); White Blood Count 12.3 Thou/mm3 (3.8-10.6)
[2025-05-21] MEDS: HEPARIN SOD INJ 5000 UNIT/ML VIAL SC ×3 (05:37→21:24)
[2025-05-21] MEDS: ACETAMINOPHEN IVPB 1,000 MG/100 ML VIAL 250 MG IV (05:37)
[2025-05-21] MEDS: PHENobarbital INJ 130 MG/1 ML VIAL 260 MG IVP ×2 (05:38→08:21)
[2025-05-21 05:52] LABS: Alanine Aminotransferase 159 U/L (10-49); Albumin, Serum 3.4 gm/dL (3.5-5.0); Albumin/Globulin Ratio 1.3 (1.2-2.2); Alkaline Phosphatase 116 U/L (46-116); Anion Gap 12 (7-16); Aspartate Amino Transferase 184 U/L (0-34); BUN/Creatinine Ratio 23 Ratio (12-20); Bilirubin,Total 0.3 mg/dL (0.3-1.2); Blood Urea Nitrogen 14 mg/dL (9-23); Calcium 8.6 mg/dL (8.3-10.6); Calcium (Corrected) 9.1 mg/dL (8.5-10.1); Carbon Dioxide 25.9 mMol/L (20.0-31.0); Chloride 102 mMol/L (98-107); Creatinine (Component) 0.6 mg/dL (0.6-1.3); Estimated Creatinine Clearance 157.0 mL/min (>60); Globulin 2.7 gm/dL (2.3-3.5); Glucose 111 mg/dL (74-106); Magnesium 1.9 mg/dL (1.6-2.6); Osmolality,Calculated 280 (275-295); Phosphorous 5.5 mg/dL (2.4-5.1); Potassium 5.2 mMol/L (3.4-5.1); Sodium 140 mMol/L (136-145); Total Protein 6.1 gm/dL (5.7-8.2); eGFR > 60 See Note
[2025-05-21] MEDS: MEROPENEM INJ 1,000 MG in SODIUM CHLORIDE 0.9% (Popper) 50 ML 100 MG IV ×3 (06:10→21:19)
[2025-05-21] MEDS: fentaNYL 2,500 MCG/250 ML BAG 2,500 MCG/250 ML BAG 15 MCG IV (06:27)
[2025-05-21 06:43] LABS: Base Excess 3 (-3-3); HCO3 27 mEq/L (20-26); Inspired Oxygen, FIO2 35 %; PCO2 38 mmHg (32.0-48.0); PO2 121 mmHg (83-108); pH, Arterial 7.46 (7.35-7.45)
[2025-05-21] MEDS: PROPOFOL 1,000 MG IVPB 1,000 MG/100 ML VIAL 14.721 MG IV (06:48)
[2025-05-21 06:56] LABS: Allen Test Not Performed; O2 Saturation 100 % (91-98); Puncture Site Right Radial
[2025-05-21] MEDS: ALBUTEROL/IPRATROPIUM (Duoneb) RT SOL 3 ML NEBU INH (07:17)
[2025-05-21] MEDS: CALCIUM CARBONATE 600 MG TABLET GT (08:20)
[2025-05-21] MEDS: SEVELAMER CARBONATE 800 MG TABLET GT (08:20)
[2025-05-21] MEDS: levETIRAcetam INJ 100 MG/ML VIAL 5ML 1000 MG IV ×2 (08:20→20:02)
[2025-05-21] MEDS: POLYETHYLENE GLYCOL 17 GM PACKET PO (10:23)
[2025-05-21] MEDS: MIDAZOLAM INJ 1 MG/ML VIAL 2 ML 2 MG IVP ×2 (11:18→18:59)
--- NOTE | 2025-05-21 12:04 | ESPR_ITS ---
<Statement entered by Jeanine Baeza MD - 05/22/25 09:43> TOTAL TIME: 45MINUTES ON DIRECT MEDICAL CARE, MANAGEMENT - COORDINATION AND COUNSELING > 50% OF TOTAL TIME I saw and evaluated the patient. I reviewed the resident?s note and agree with findings and plan as documented in the resident?s note. Repeat sputum good sample - no growth so far coming down on sedation - monitor for seizures may have to transfer to [facility] for 24/7 sz monitoring cont tf's - supportive care complete merrem <Statement entered by Ronnell Orozco MD - 05/21/25 13:43> Patient was seen and examined in the ICU this morning. Overnight, patient had persistent fever spikes around 1-2. EEG revealed spike discharges therefore Depakote dose was adjusted per neuro recs. Neurology recommended to continue weaning off sedation and continue with antiseizure medications. She recommended to perform an EEG on 05/23. Fungal culture grew Brittney will likely normal hamilton for ear swab. If patient has agitation we will give Versed 2mg as needed.IV Phenobarbital was reduced to 130 mg q8hr and clonazepam 1 mg BID . Chlamydia gonorrhea test was ordered due to green penile discharge. Will continue with meropenem for now. Labs revealed elevated white count 12.3. Hemoglobin stable. Platelet count stable as well. Potassium 5.2. Blood glucose 111. Magnesium 1.9. Phosphorus downtrending 5.5. Sputum Gram stain showed 1+ WBC no organism. Will continue with seizure precautions. I discussed and supervised with the actuarial intern physician who took care of this patient. I personally saw and examined the patient. I agree with most of the assessment and plan. Disclaimer: Despite multiple revisions, due to the dictation software being used, the document bellow may not be free of grammatical errors including phonetic/typographic errors. However, this does not deter from our commitment to providing health care in the patient's best interest in mind. Plan of care discussed with attending Physician Dr. Felisha Orozco MD PGY-3 Documentation for date of: 05/21/25 Subjective Subjective Interval history: 05/21/2025: Overnight, patient developed two fever spikes, with a maximum temperature of 102.6?F. Fevers were managed with Tylenol and cooling measures. Hawkins catheter was removed and replaced with a QiVi external catheter, with urine output of 1,650 cc over the past 12 hours. Propofol was increased from 30 to 35 mcg/kg/min due to agitation and the patient breathing over the ventilator, while fentanyl maintained at 150 mcg/hr. No bowel movement was reported overnight. Neurology agreed with gradual weaning of sedation as tolerated. EEG is scheduled for Friday, 05/23, and daily EEG monitoring is not required. Ear culture returned with Brittney, likely from normal hamilton from the ear swab. Ears were examed with otoscope. Right ear unremarkable. Left ear canal with clear liquid, like from ofloxacin ear drops. Reduced phenobarbital to 130 mg every 8 hours and clonazepam to 1mg BID. Versed 2 mg IV is available as needed for agitation. Continue meropenem. Fungal culture of ear culture grew Brittney, likely representing normal hamilton from the ear swab. Patient exhibited green penile discharge following hawkins removal. A chlamydia and gonorrhea test was ordered. Right arm is warm and tense to touch from IV infiltration, IV was removed and placed in distal part of the right forearm. 05/20/2025: Overnight, patient had a fever spike of 101.2F. Patient remained on Propofol 40 and Fentanyl 150 for sedation. Precedex was not needed for agitation. Urine output was 2800 cc in the past hours with no gross hematuria. No bowel movement. Patient?s phenobarbital dose was adjusted to 260 mg every 8 hours. Keppra dose was increased to 1000 mg twice daily as per the neurologist?s recommendation. An EEG revealed electrographic seizure activity. A repeat sputum culture was obtained due to contamination of the previous sample. Additionally, a gradual wean of propofol and fentanyl was initiated as tolerated. 05/19/2025: Overnight, patient had a fever spike of 102.2?F. Due to agitation, the Versed infusion was increased from 4 mg/gtt to 8mg/gtt. Patient was also receiving Propofol 30 and Fentanyl 150. Patient had one bowel movement and produced 1L of urine over the past 12 hours, with no evidence of gross hematuria. Versed 4 mg gtt was titrated up to 8mg gtt for patient's agitation. Patient was on Propofol 30 and Fentanyl 150. Patient had one bowel movement. Urine output was 1L in the past 12 hours with no gross hematuria. This morning, clonazepam 2 mg PO TID was initiated, Propofol infusion was increased to 50 mcg/kg/min, and fentanyl was maintained at 50 mcg/hr. The versed infusion was discontinued, and Meropenem was restarted to treat Pseudomonas pneumonia, since the patient continued to spike fevers despite discontinuation of the medication. Sputum culture and EEG will be repeated. Heparin was restarted for DVT PPX. 05/18/2025: Overnight, patient remained on Propofol 30 and Fentanyl 300, with Versed 2mg dose x1. Magnesium was given for bronchodilation. Ibuprofen given for fever. Plan was to wean off sedation and extubate the patient today, but due to significant oral secretions and concerns about potential aspiration and the patient's inability to protect the airway, the decision was made to keep the patient intubated for now. A spontaneous breathing trial was attempted, and the patient?s lungs are functioning well. However, given the ongoing agitation, sedation could not be reduced. Phenobarbital dose was increased from 130mg to 260mg every 6 hours, and a 4mg Versed drip was started. Olanzapine was discontinued, and both doxycycline and meropenem were stopped due to concerns of a potential drug reaction, as fever spikes worsened after the initiation of meropenem on 05/12. Heparin was restarted yesterday for a DVT in the left brachial vein but was discontinued this morning due to ongoing hematuria without clots. A follow-up Doppler will be performed in 2-3 days to assess whether the DVT has resolved. Patient?s urine output was 2240cc over the past 12 hours. Maintenance fluids were started at 100ml/hr to manage the increased urine output. ICU team spoke with the patient's mother today, providing updates on the changes in the medication regimen and the patient's current status. Informed her that this is Day 9 of intubation, and there are four more days to attempt extubation before considering a tracheostomy. TSH, EBV, and CMV panels were ordered for further evaluation. 05/17/2025: Overnight,patient was placed on droplet precautions due to positive rhinovirus and human metapneumovirus. Patient received a 4 mg dose of Versed for agitation. Heparin drip was initiated for an upper extremity DVT but was paused at 12:15 AM due to hematuria without clots. Urine output was approximately 170 cc/hr, and the patient had two bowel movements since yesterday. Today, the patient underwent bronchoscopy and tolerated the procedure well, with stable gas exchange observed. To facilitate weaning off fentanyl and propofol, the patient was started on phenobarbital 13 mg and oxycodone 10 mg scheduled TID. Will consider adding Precedex to further support the weaning process and work towards extubation tomorrow. Heparin drip for the DVT has been restarted as the hematuria is improving. Additionally, 1L of IV LR was administered to address hyperkalemia and hyperphosphatemia on AM labs. Plan is to remove the Hawkins catheter tomorrow, 05/18. 05/16/2025: Overnight, patient experienced intermittent spasmodic jerking episodes, lasting about 15-20 minutes at a time. During these episodes, the patient becomes tachycardic and febrile. Baclofen 10mg was administered, followed by a single dose of midazolam 2mg IV for agitation. Patient remains on fentanyl 100 mcg/hr and propofol 50 mcg/kg/min for sedation. Patient spiked a fever of 102.6?F, for which IV tylenol was given. A subsequent temperature of 102.4?F was treated with ibuprofen. The Hawkins catheter was replaced overnight. Urine output over the past 12 hours was approximately 850 mL. Patient has not had a bowel movement since 05/13, will add miralax. Due to persistent fevers, doxycycline 100 mg IV BID was initiated for gram-positive cocci coverage. Blood cultures will be repeated, and a right upper quadrant ultrasound has been ordered to evaluate for potential hepatobiliary source of infection. Liver enzymes are improved from yesterday. Planned Interventions: Initiate phenobarbital 130 mg IV every 6 hours and begin weaning off propofol. Increased olanzapine from 5 mg GT QHS to 5 mg TID. Perform bilateral upper extremity ultrasound to assess for DVT. Repeat UA, CXR, CT head and abd/pelvis. Check lipase levels. 05/15/2025: Overnight, the patient developed a fever of 101.8?F. PO acetaminophen was switched to IV formulation by the night team. Temperature improved to 99.5?F by morning. Urine output over the past 12 hours was approximately 620 cc. Liver enzymes continue to trend upward, will hold acetaminophen for now. Patient was weaned off midazolam infusion today. Plan is to begin tapering propofol next. Antipsychotic regimen was adjusted from quetiapine to olanzapine to minimize risk of QTc prolongation. Repeat chest X- ray showed improvement in bilateral pneumonia. Bronchoscopy was performed yesterday (05/14). Repeat procedure is being considered for 05/16. Increase in WBCs and fever likely from bronchoscopy. 05/14/2025: No acute events overnight. Stable on versed/ fentanyl and propofol. No vasopressor requirements. Patient underwent bronchoscopy, well tolerated. Gas exchange stable. PPeak remains in mid20s. Patient on minimal FiO2 and PEEP now. Good ventilator synchrony. Continues to have heavy drooling and output form upper airway. Minimal from ETT now. 05/13/2025: Patient increased FiO2 overnight to 100%. Difficulty managing secretions. Bleeding from nose and plugging. Agitated with maximal dose of precedex and benadryl pushes. Patient with low grade temp to 100.4F. Mild secretions from ETT, pink/ frothy. 05/12/2025: Patient weaned down on sedation. Tmax 102 degrees at 1600 hrs. 05/11. Patient developed mild hepatitis, likely response to medications, will monitor. Patient successfully weaned off of propofol and fentanyl, Precedex initiated. Patient extubated, placed on high flow. Continues to have high secretions, treated with chest PT, oral suctioning as needed, ipratropium breathing treatments scheduled. Patient notably agitated, treating with Benadryl as needed and Precedex drip. Will continue to try and decrease sedation while maintaining patent airway. Sputum culture grew thurman resistant Pseudomonas, meropenem initiated. Will continue Levaquin for now pending cultures. Ear cultures taken. Patient maintaining good urine output, will replete volume if patient exceeds greater than 2 L output. 05/11/2025: Overnight, the patient became increasingly agitated and was observed biting on the endotracheal tube. In response, propofol was increased from 40 mcg/kg/min to 45 mcg/kg/min, and fentanyl was increased from 200 mcg/hr to 250 mcg/hr. The plan is to attempt weaning the patient off sedation today, and work towards extubation. A lumbar puncture was performed, which showed 3 WBCs. Infection from meningitis is less likely, but culture results are pending for confirmation. Today, the patient has been experiencing a low-grade fever, with the highest recorded temperature being 100.4?F. After the Hawkins catheter was placed, the patient had 1700 cc of urine output over the past 12 hours. Followed up with Dr. Jacky Cuadra (ENT in [place]). Dr. Cuadra stated that there is nothing additional he could identify on the CT imaging that the radiologist has not already seen. And that if there was something it would likely be surgical and he does not perform surgeries. He recommended covering for Pseudomonas with clindamycin and Unasyn. The plan is to start levofloxacin for Pseudomonas coverage as well. Additionally, Dr. Cuadra suggested culturing the ear. 05/10/2025: Patient remained sedated with propofol and fentanyl throughout the night, maintaining adequate sedation levels. Around 2 AM, the propofol dose was reduced due to MAP in the 60s. 1L of LR was administered on top of the ongoing IV maintenance fluids at 100cc/hr. Following this, the MAP remained stable above 65. At 6:50 PM on 05/09, an ABG revealed a pH of 7.28, pCO2 of 55, and pO2 of 70, indicative of respiratory acidosis. Patient was given 5 grams of magnesium and 15 mg of albuterol over the course of an hour to promote bronchodilation. Magnesium also needed to be repleted. A repeat ABG showed normalization of the respiratory parameters. Patient's Hawkins catheter was removed and replaced with a QiVi catheter overnight per the patient's father?s request. However, the patient developed urinary retention. A bladder scan performed at 6 AM showed 295cc of retained urine, and a subsequent scan in the afternoon revealed 439cc. Primary team consulted ICU team. On 05/09, two rapid responses were initiated due to the patient?s escalating agitation and anxiety. Patient appeared to be in significant pain from his paraphimosis. The primary team consulted the ICU for further management, as the patient had already received diazepam, haldol, versed, and dilaudid earlier that morning, with inadequate relief. Additionally, there was concern over a decline in his pO2 levels. The initial ABG at 11:56 showed: pH 7.40, pCO2 40, pO2 131, HCO3 25. A repeat ABG at 13:40 revealed: pH 7.27, pCO2 43, pO2 53, HCO3 20. Upon evaluation by the ICU team, the patient was noted to be extremely agitated and wearing an oxygen mask, with audible gurgling sounds coming from the upper airway, raising concern for potential airway compromise. Given the risk of inadequate airway protection, the decision was made to transfer the patient to the ICU for intubation and further management. In the ICU, the patient was intubated. Urology, Dr. Vargas, was consulted earlier in the day. He was able to successfully perform a reduction of the paraphimosis. Telemetry Course: Patient was admitted to telemetry for further workup and management of sepsis of unknown source, with concern for meningitis. Empiric broad-spectrum antibiotic and antiviral therapy were started, consisting of ceftriaxone 2g IV twice daily, vancomycin (pharmacy to dose), ampicillin, and acyclovir. Neurology was consulted. CT of the orbit, sella, and inner ear was ordered given the patient?s history of acute mastoiditis, which showed severe bilateral chronic mastoiditis, bilateral otitis externa, bilateral otitis media, and bilateral cholesteatomas in the attics. CT head was also performed and was negative for acute hemorrhage, mass effect, or midline shift. Findings included prominent sphenoid, ethmoid, and maxillary antral sinusitis, bilateral chronic mastoiditis, bilateral otitis media, and opacification in the bilateral attics. For the patient?s seizures, his home medications of valproic acid and levetiracetam were restarted. Orders for midazolam and Haldol were placed as needed for breakthrough seizures and agitation. An ice pack was ordered for his paraphimosis. Infectious disease was also consulted. History of Present Illness: 24-year-old male with a past medical history significant for cerebral palsy, asthma, seizure disorder, chronic mastoiditis (previously treated with tympanostomy tube placement for recurrent otitis media, now removed), recurrent pneumonia, and chronic PEG tube dependence, presented to the ED on 05/08/2025 with a fever lasting over 24 hours. The patient also had a witnessed seizure episode lasting 5-10 seconds, characterized by tonic-clonic activity confined to the left side of the body. ED Course: -Initial vitals were: BP 122/84, HR 176, RR 26, T 105F, O2 sat 96% on room air. -Labs significant for: CBC showed a WBC of 16.3. CMP showed Na 148, K 5.2, Cl 107, bicarbonate 18.7, anion gap 22, creatinine 1.3 (baseline 0.7), lactic acid 3.2, alkaline phosphatase 120, LDH 352, total CK 1048, procalcitonin: 0.14. Urinalysis negative. Influenza A/B testing was negative. -Imaging included: EKG showed supraventricular tachycardia of HR [address] and T-wave abnormality. CXR showed no aspiration pneumonia but was noted to be of poor inspiratory effort. CT CAP w/o contrast seemed to show no gross infiltrates or other notable findings but was noted to be severely degraded by patient motion. -In the ED, patient was given acetaminophen 975 mg, ceftriaxone 1 gram IV, midazolam 2 mg IV x1, albuterol 2.5 mg, Zosyn 3.375 gram, 2 L NS fluid infusion, and 1 L LR fluid infusion. In the ED, the patient was agitated and pulled out his IV. Attempts at peripheral access were unsuccessful, and a right femoral central line was placed. Exam Vital Signs Temp Pulse Resp BP Pulse Ox O2 Del Method O2 Flow Rate 102.2 F H 120 H 16 134/76 H 100 Mechanical Ventilation 35 05/21/25 04:00 05/21/25 10:05 05/21/25 07:17 05/21/25 10:05 05/21/25 10:05 05/20/25 18:00 05/16/25 12:00 FiO2 35 05/21/25 10:05 Narrative Exam Physical Exam General: sedated and intubated, nonverbal at baseline, not in acute distress. RASS score -5 (no response to voice or physical stimulation). Head: Normocephalic, atraumatic. Eyes: PERRL. Anicteric. Bilateral lateral eye scleral hemorrhage. Mouth/Throat: Poor dentition. Oral mucosa moist with excessive secretions. ETT in place. Cardiovascular: Regular rate and rhythm, no murmur. Respiratory: Rhonchi to auscultation in bilateral lung thompson. Gastrointestinal: PEG tube in place, site is clean, dry and intact. Soft, no guarding or rebound tenderness. Genitourinary: Decrease swelling of glans penis. Extremities: Contracted and swollen hands. Right arm is warm and tense to touch. No LE edema, cyanosis, mottling, clubbing. 2+ radial pulse bilaterally, 2+ posterior tibial pulse bilaterally. Skin: Rash near buttock area. Old IV site on left medial upper arm with erythema and old adhesive outline, no purulent drainage. Objective Labs 05/22/25 04:55 05/22/25 04:55 Labs: Laboratory Results - last 24 hr 05/21/25 05/21/25 05/21/25 04:18 04:30 06:33 WBC 12.3 H D RBC 3.18 L Hgb 8.8 L Hct 27.1 L MCV 85 MCH 27.7 MCHC 32.5 RDW Std Deviation 46.4 H Plt Count 412 D Neut % (Auto) 69 Lymph % (Auto) 15 Parmer % (Auto) 11 Eos % (Auto) 4 Baso % (Auto) 0 Neut # (Auto) 8.5 H Lymph # (Auto) 1.8 Parmer # (Auto) 1.4 H Eos # (Auto) 0.5 Baso # (Auto) 0.1 Immature Gran # (Auto) 0.11 H Absolute Nucleated RBC 0.00 Immature Gran % 1 H Nucleated RBC % 0 Puncture Site Left Radial Right Radial ABG pH 7.37 D 7.46 H ABG pCO2 50 H 38 D ABG pO2 40 L* D 121 H D ABG HCO3 29 H 27 H ABG O2 Saturation 66 L 100 H ABG Base Excess 3 3 FiO2 21 35 Sodium 140 Potassium 5.2 H Chloride 102 Carbon Dioxide 25.9 Anion Gap 12 BUN 14 Creatinine 0.6 Estim Creat Clear Calc 157.0 eGFR > 60 BUN/Creatinine Ratio 23 H Glucose 111 H Calculated Osmolality 280 Calcium 8.6 Corrected Calcium 9.1 Phosphorus 5.5 H Magnesium 1.9 Total Bilirubin 0.3 AST 184 H ALT 159 H Alkaline Phosphatase 116 D Total Protein 6.1 Albumin 3.4 L D Globulin 2.7 Albumin/Globulin Ratio 1.3 ABG Interpretation ABG results: 05/09/25 05/09/25 05/09/25 11:56 13:40 18:50 ABG pH 7.40 7.27 L D 7.28 L ABG pCO2 40 43 55 H D ABG pO2 131 H 53 L* D 70 L ABG HCO3 25 20 26 ABG O2 Saturation 99 H 81 L 92 ABG Base Excess 0 -7 L -2 05/10/25 05/11/25 05/12/25 00:14 05:06 01:18 ABG pH 7.35 7.33 L 7.39 ABG pCO2 42 D 54 H D 48 ABG pO2 103 D 93 94 ABG HCO3 23 28 H 29 H ABG O2 Saturation 99 H 98 98 ABG Base Excess -3 2 3 05/12/25 05/12/25 05/13/25 03:58 11:50 05:10 ABG pH 7.46 H 7.39 7.19 L* D ABG pCO2 41 48 60 H D ABG pO2 105 58 L* D 114 H D ABG HCO3 29 H 29 H 23 ABG O2 Saturation 99 H 90 L 98 ABG Base Excess 5 H 4 H -6 L 05/17/25 05/18/25 05/19/25 01:30 04:09 04:43 ABG pH 7.38 7.43 7.47 H ABG pCO2 46 44 43 ABG pO2 90 83 80 L ABG HCO3 27 H 29 H 31 H ABG O2 Saturation 98 97 97 ABG Base Excess 2 5 H 7 H 05/21/25 05/21/25 04:18 06:33 ABG pH 7.37 D 7.46 H ABG pCO2 50 H 38 D ABG pO2 40 L* D 121 H D ABG HCO3 29 H 27 H ABG O2 Saturation 66 L 100 H ABG Base Excess 3 3 Quality Measures Quality Measures VTE prophylaxis (SCDs) and sepsis Current suspected stage: sepsis Possible source: pulmonary Blood cultures ordered: yes Antibiotic ordered: Yes Assessment & Plan Assessment Current Active Medications: Generic Name Dose Route Start Last Admin Trade Name Freq PRN Reason Stop Dose Admin Acetaminophen 650 mg 05/14/25 05:13 05/14/25 18:15 Acetaminophen 325 Mg Tablet PO 06/13/25 05:12 650 mg On Hold: 05/14/25 23:01 Q6HR PRN Administration Fever >100.4 Albuterol/Ipratropium 3 ml 05/09/25 18:19 05/20/25 01:36 Albuterol/Ipratropium (Duoneb) Rt Racquel 3 Ml Nebu INH 06/08/25 18:18 3 ml Q2HR PRN Administration SHORTNESS OF BREATH OR WHEEZE Baclofen 10 mg 05/16/25 00:26 05/20/25 01:40 Baclofen 10 Mg Tablet PO 06/15/25 00:25 10 mg TID PRN Administration Spasms Calcium Carbonate 600 mg 05/20/25 18:20 05/21/25 08:20 Calcium Carbonate 600 Mg Tablet GT 06/19/25 18:19 600 mg QDAY KYA Administration Clonazepam 1 mg 05/21/25 21:00 Clonazepam 0.5 Mg Tablet PO 05/26/25 20:59 BID KYA Heparin Sodium (Porcine) 5,000 unit 05/19/25 06:00 05/21/25 05:37 Heparin Sod Inj 5000 Unit/Ml Vial SC 06/02/25 05:59 5,000 unit Q8HR KYA Administration Valproic Acid 187.5 mg/ Sodium 51.875 mls @ 51.875 mls/hr 05/09/25 18:00 05/21/25 06:10 Chloride IV 06/07/25 17:59 51.8 mls/hr Q6HR KYA Administration Protocol Propofol 1,000 mg in 100 mls @ 2.103 mls/hr 05/13/25 04:16 05/21/25 10:00 Diprivan Ivpb IV 06/12/25 04:15 15 mcg/kg/min .Q24H PRN 6.309 mls/hr PER PROTOCOL Titration Protocol 5 MCG/KG/MIN Fentanyl Citrate 2,500 mcg in 250 mls @ 2.5 mls/hr 05/18/25 07:25 05/21/25 06:27 Sublimaze Inj 2,500 Mcg/250 Ml Bag IV 05/23/25 07:24 150 mcg/hr .Q24H PRN 15 mls/hr PER PROTOCOL Administration Protocol 25 MCG/HR Midazolam HCl 100 mg in 100 mls @ 4 mls/hr 05/18/25 10:33 05/19/25 16:00 Versed Pf Inj In Ns Premix IV 05/23/25 10:32 0 mg/hr .Q24H PRN 0 mls/hr PER PROTOCOL Titration Protocol 4 MG/HR Meropenem 1,000 mg/ Sodium 50 mls @ 100 mls/hr 05/19/25 14:00 05/21/25 06:10 Chloride IV 05/22/25 13:59 100 mls/hr Q8HR KYA Administration Levetiracetam 1,000 mg 05/20/25 21:00 05/21/25 08:20 Levetiracetam Inj 100 Mg/Ml Vial 5ml IV 06/19/25 20:59 1,000 mg BID KYA Administration Midazolam HCl 2 mg 05/21/25 09:48 05/21/25 11:18 Midazolam Inj 1 Mg/Ml Vial 2 Ml IVP 05/26/25 09:47 2 mg Q6HR PRN Administration seizures or agitation Ondansetron HCl 4 mg 05/08/25 11:36 Ondansetron Inj 2 Mg/Ml Inj 2 Ml IVP 06/07/25 11:35 Q6HR PRN NAUSEA OR VOMITING Protocol Oxycodone HCl 10 mg 05/17/25 14:00 05/21/25 05:09 Oxycodone Hcl 5 Mg Ir Tab GT 05/22/25 13:59 10 mg TID KYA Administration Pantoprazole Sodium 40 mg 05/12/25 11:25 05/21/25 08:20 Pantoprazole Inj 40 Mg Vial IVP 06/11/25 11:24 40 mg QDAY KYA Administration Pharmacy Consult 1 each 05/08/25 16:12 Pharmacy To Consult Patient XX 06/07/25 16:11 PRN PRN CONSULT Phenobarbital Sodium 130 mg 05/21/25 14:00 Phenobarbital Inj 130 Mg/1 Ml Vial IVP 06/04/25 13:59 Q8HR KYA Polyethylene Glycol 17 gm 05/16/25 09:15 05/21/25 10:23 Polyethylene Glycol 17 Gm Packet PO 06/15/25 09:14 17 gm QDAY KYA Administration Sodium Chloride 3 ml 05/12/25 09:33 Sodium Chloride Rt Racquel 0.9% 3 Ml Nebu INH 06/11/25 09:32 PRN PRN SOLN Sodium Chloride 3 ml 05/17/25 11:43 Sodium Chloride Rt Racquel 0.9% 3 Ml Nebu INH 06/16/25 11:42 PRN PRN SOLN Plan 24-year-old male with cerebral palsy, asthma, seizure disorder, chronic mastoiditis, recurrent pneumonia, and chronic PEG tube dependence presented with fever and seizure, was admitted for sepsis workup, and later transferred to the ICU for intubation due to concerns about airway protection. Neurology #Agitated delerium Patient was extremely agitated before ICU admission, likely due to pain from paraphimosis. Patient initially sedated with propofol and fentanyl, titrated to Precedex with Benadryl before extubation. Patient failed extubation and was intubated on 05/12. Propofol and fentanyl was restarted. Diagnostic Test: - 05/20 AM: RASS was -4, no response to voice but movement to physical stimuli. Treatment Review (completed) - Versad 5mg/h was tapered off on 05/15. - Phenobarbital 130 mg IV Q6HR 05/16-05/18. - Olanzapine 5mg daily 05/13-05/16. - Olanzapine 5mg TID 05/16-05/18. - Midazolam 4mg --> 8mg gtt 05/18-05/19. - Oxycodone 10mg GT TID 1021- 05/22. Treatment Plan: - Decrease Phenobarbital 260 mg IV Q8H to 130 mg Q8H. - Decrease Clonazepam 2 mg PO TID to 1mg BID. - Continue to wean off propofol and fentanyl as tolerated, Versad 2mg PRN if patient starts to get agitated. - If continues to be on Propofol, recheck TG on 05/23 (every 72 hours). #History of seizures #Cerebral palsy Diagnosis: - Temperature of 105F on admission. - EEG 05/11 unremarkable - Repeat EEG 05/20: electrographic seizure activity. Treatment Plan: - Levetiracetam 1000 mg BID. - Continue valproic acid 187.5 mg Q6H. - Adjust seizure medications if breakthrough seizures persist. - Seizure precautions. - Aspiration precautions. - Repeat EEG on 05/23 per neurology. Cardiovascular #Sinus tachycardia Likely due to infection Diagnostic Test: - Fever spike up to 102.6F overnight. Treatment Plan: - No specific treatment required at this time. Will treat underlying cause. - Continue close cardiac monitoring. - Monitor electrolytes and replete as needed. - Maintain Mg > 2 and K > 4 to reduce arrhythmia risk. Respiratory #Failed extubation 05/12 #Acute hypoxic respiratory failure Diagnostic Test: - CXR 05/11: Mild bilateral perihilar pneumonia. To assess for ventilator associated pneumonia. Not much change from 05/09 CXR. - Pseudomonas from ETT secretions previously (05/09). - CXR 05/15: improvement in bilateral pneumonia. - CXR 05/16: worsening diffuse severe left lung pneumonia. - ABG 05/18: pH 7.43, pCO2 44, pO2 83 and HCO3 29. - CXR 05/19: Significant bilateral pneumonia. Treatment Review (completed): - Patient extubated to [facility] 05/12, chest film with centro-bronchovascular congestion and multifocal pneumonia. - Reintubated overnight 05/13- VC/AC PPeak 20 PEEP 5 FiO2 40%. - Patient underwent bronchoscopy on 05/14 and 05/17 for secretions, well tolerated. Treatment Plan: - Continue meropenem (05/12-05/17, 05/19-05/22, for a total of ten days). - Repeat sputum cultures as prior one is contaminated (05/21 Epithelial Cells/lpf). - Bronchoscopy culture pending. - Chest physiotherapy BID. - Given the patient's current condition, including severe tachycardia and excessive secretions, he is not considered a suitable candidate for extubation at this time. Therefore, mechanical ventilation will be continued to support respiratory status. - Patient will be reassessed daily to determine if weaning from sedation and extubation can be possible. This is day 12 of intubation, and if extubation remains unfeasible, the possibility of a tracheostomy will need to be considered. Avoid prolonged ETT placement beyond 14-21 days. - Continue MV settings: PEEP 6.0, Ppeak 32.1, Pplateau 17.9. #Bronchospasm #History of asthma Diagnostic Test: - Although the patient has a history of asthma, the bronchospasm is most likely from the irritant effect of blood in the airway. A small amount of blood, which was likely from dryness of the nasal mucosa, was suctioned out during intubation. Treatment Plan: - Magnesium for bronchodilator effect as needed. - Albuterol and Ipratropium as needed. GI, , F/E/N #Chronic PEG tube dependence Treatment Plan: - Jevity 1.5 at 40 ml/hr x 24 hrs via PEG tube by pump (goal). If no IV fluids, water flushes of 35 ml/hr. - ProStat 30ml BID via PEG tube. - Appreciate general manager food recommendations. . - Triglyceride level 05/14 - 290; 05/17 - 312; 05/20 - 221. - Repeat TG levels every 72 hours when on Propofol, which should be discontinued if triglyceride levels reach or exceed 400 mg/dL to prevent hypertriglyceridemia-associated complications. - Next check 05/23 is patient remains on Propofol. #Hepatitis (uptrending) Likely due to meropenem or tylenol that could potentially cause hepatotoxicity. Diagnostic Test: - AST 199 --> 48 --> 87 --> 184. - ALT 152 --> 48 --> 56 --> 159. - Gallbladder ultrasound 05/16: Normal gallbladder, no gallstones. Fatty infiltration throughout the liver. - Lipase 05/16: 41 wnl. Treatment Plan: - Continue daily LFTs. - Avoid acetaminophen unless fever exceeds 101.0?F or Ibuprofen as alternative. - Will reassess if transaminases continue to rise or clinical status changes. #Hypoalbuminemia Likely due to acute hepatitis Diagnostic Test: - UA had urine proteins 1+. - Albumin 4.9 -->3.3 -->2.8 --> 3.2 --> 3.4 --> 2.8 --> 2.5. Treatment Plan: - Monitor LFTs, INR, and bilirubin. - Maintain on PEG tube feeds per general manager food recommendations. #Acute urinary retention (resolved) Treatment Plan - Maintain hawkins catheter. Monitor UOP. - Monitor urine output, replace fluid if needed. - Hawkins changed and replaced on 05/16. - Hawkins removed on 05/20. #Paraphimosis (resolved) #Balanitis (resolved) Diagnostic Test: - Edema and tenderness of the glans penis. - Swelling of the distal retracted foreskin. - Constricting band of tissue proximal to the head of the penis at the coronal sulcus. - Hawkins was removed on 05/09 and transitioned to Oivi external urinary catheter. Discussed with family about the need to reinsert hawkins due to the patient's acute urinary retention. Family were in agreement with this plan. Hawkins was reinserted on 05/10 due to urinary retention. Hawkins changed and replaced on 05/16. - S/p reduction of the paraphimosis by Dr. Vargas on 05/09. Treatment Plan: - Control patient's pain with sedation. - Monitor urine output. Renal #Hyperkalemia #Hyperphosphatemia DDx: acute kidney injury vs hemolysis vs rhabdomyolysis. Diagnostic Test: - Potassium 5.2. - Phosphorus 5.5. - CK 363. - LDH 350. - Uric acid 3.5. - Hemoglobin 8.8. - Cr 0.6. Treatment Plan: - Monitor BMP and phosphorus. - Monitor potassium levels to avoid arrhythmias. - Sevelamer 0.8 gm x1. #Acute kidney injury (resolved) DDx: dehydration or vasodilation from sepsis. Diagnositc Test: - Creatinine 1.3 (baseline: 0.7) Treatment Plan: - Continue with free water flushes. - Daily renal panel to trend BUN, Cr, and electrolytes. - Avoid nephrotoxins. - Renally dose meds as appropriate. - Strict I&Os, monitor urine output closely. - Monitor for signs of volume overload or uremic symptoms. #Anion Gap Metabolic Acidosis (resolved) #Lactic acidosis (resolved) DDx: seizures vs sepsis vs acute kidney injury vs hypoperfusion. Likely from seizures as patient has no signs of systemic hypoperfusion such as skin mottling, decreased cap refills. Diagnostic Test: - Admission anion gap 22, lactic acid 16.0, bicarbonate 18.7. Treatment Plan: - Recheck LA as needed. #Rhabdomyolysis (resolving) DDx: seizures vs hyperthermia vs infectious myositis. Diagnostic Test: - CK 1048 --> 3743 --> 1654 --> 338 --> 363. - Witnessed seizure episode lasting 5-10 seconds, characterized by tonic-clonic activity prior to admission. Treatment Plan: - Continue free water flushes at 35 cc/hr. - Monitor urine output. - Correct electrolyte abnormalities. - Control seizures with valproic acid and levetiracetam. - Monitor renal panel. Heme #Acute nonocclusive thrombus in the left brachial vein Diagnostic Test: - Venous doppler study of upper extremities 05/16: Normal right upper extremity deep venous system. Positive for nonocclusive thrombus in the left brachial vein. - Per chart review and patient's parents, patient does not have history of clots. Treatment Review (completed): - Lovenox 30 mg (05-11 - 05/15). - Lovenox 40 mg (05/16). - Heparin loading dose and ggt. Lovenox to heparin due to heparin?s shorter half-life, which allows for more rapid cessation in the event of bleeding, a shorter half life and can be stopped if bleeding occurs. Treatment Plan: - Stopped heparin ggt due to hematuria on 05/18. - Started heparin 5000 SC for DVT PPX on 05/19 as hematuria as resolved. - Primary upper extremity deep vein thrombosis, anticoagulation should be continued for a minimum of three months following the initial thrombotic event. #Leukocytosis DDx: likely due to bronchoscopy vs infection of unknown source vs drug induced Diagnostic Test: - Continue to have fever spikes as high as 102.8?F. - Increase WBCs 8.9 --> 11.1 after bronchoscopy on 05/14. - Increase WBCs 14.7 --> 16.1 after bronchoscopy on 05/17. Treatment Plan: - Treat underlying cause. Treating with meropenem. #Normocytic Anemia DDx: Anemia of Inflammation vs dilutional anemia vs drug-induced anemia. Likely dilutional anemia since patient had normal hemoglobin on admission and from IV fluids per sepsis protocol. No signs of bleeding. Diagnostic Test: - Hemoglobin 7.9. Treatment Plan: - Monitor H&H. - Type and screen. - Transfusing for Hgb <7 or symptomatic. #Thrombocytosis (resolved) DDx: infection vs reactive Diagnostic Test: - Plt 518 Treatment Plan: - Monitor CMP. #Thrombocytopenia (resolved) DDx: Dilutional versus consumption versus increased destruction due to sepsis. Initial decrease is likely due to dilutional in setting of IV fluids, however his WBC and hemoglobin have leveled off platelets have down trended. Diagnostic test: - Platelets: 209 --> 65-->141. Treatment plan: - Monitor daily labs - Avoid excessive oral tracheal suctioning in setting of previous bleed and thrombocytopenia. Endo #no active problems ID #Sepsis #Bilateral chronic mastoiditis #Sinusitis #Bilateral otitis media #Bilateral otitis externa DDx: meningitis vs acute on chronic mastoiditis vs acute febrile illness. Diagnostic Test: - History of chronic mastoiditis. - Met SIRS criteria on admission: T 105F, HR 176, RR 26, PaCO2 26, WBC 16.3. - 05/08 Lactic acid 16.0. - 05/08 CT Head: prominent sphenoid ethmoid maxillary antral sinusitis, bilateral chronic mastoiditis, bilateral otitis media. - 05/08 CT Orbit Sella Inner: severe bilateral chronic mastoiditis, bilateral otitis externa and otitis media, bilateral cholesteatomas in the attics. - 05/08 MRSA screen negative. - 05/09 Sputum culture: 1+ thurman resistance Pseudomonas. - 05/10 Lumbar puncture: clear, WBC 3, glucose 70, total protein 25. - CSF Streptococcus pneumonia Ag negative. - CSF Streptococcus B antigen negative. - CSF Neisseria meningitis B/E.coli K1 negative. - CSF Neisseria meningitis ACY/W135 Ag negative. - CSF haemophilus influenzae B Ag negative. - CSF enterovirus RNA negative. - CSF West Nile virus IgG antibody negative. - CSF West Nile virus IgM antibody negative. - 05/10 Respiratory viral panel: rhinovirus/enterovirus and human metapneumovirus detected. - 05/12 Bilateral ear culture: E coli ESBL. - UA 05/08 and 05/16 negative. - Blood culture 05/08, 05/11, and 05/16 negative. - 05/16 CTAP: Extensive bilateral pneumonia, cystitis pattern, cholelithiasis. - 05/16 CXR: worsening diffuse severe left lung pneumonia. - 05/16 CT Head: unremarkable. - 05/16 Venous doppler ultrasound: Normal right upper extremity deep venous system. Positive for nonocclusive thrombus in the left brachial vein. Treatment Review (completed) - Rocephin 2 gm IV q12HR [05/08-05/11]. - Vancomycin dosed by pharmacy [05/08-05/11] since MRSA screen is negative. - Acyclovir 700 mg IV [05/08-05/11] since LP negative. - Ampicillin 2 gm IV q4HR [05/08-05/09] as patient not in the age group at risk for Listeria infection. - Fluids: 30mL/kg -- 2 L NS fluid infusion and 1 L LR fluid infusion was given in the ED. - Femoral central line removed 05/11, replaced with peripheral access. - Levaquin 750 mg IV [05/11-05/12]. - Doxycycline 100mg IV BID [05/16-05/18] for GPC coverage. - Meropenem 1 g IV [05/12 -05/18]. Treatment Plan: - Topical oxofloxacin. - Continue Meropenem (05/19-05/22) for ten days total. - Patient has limited options in terms of antibiotics in the future as meropenem is broad-spectrum. May have to consider ceftazidime or ceftaroline if he continues to develop recurrent infections. Integumentary #Maculopapular rash to the buttocks DDx: contact dermatitis vs allergic dermatitis Treatment Plan - Patient no longer has diaper on as hawkins is in place. Anticipate rash to improve. Health Maintenance DVT prophylaxis: SCDs, heparin subQ GI prophylaxis: Protonix IV Diet: Jevity Hawkins: none Lines: Peripherals Drips: Propofol, fentanyl. Vent: MV, PPlat <30 and TV < 8 ml/kg IBW CODE STATUS: FULL CODE Patient plan of care was discussed with the senior resident, Dr. Orozco, and attending physician, Dr. Baeza. Diaz Coppola, DO Internal Medicine PGY-1
--- NOTE | 2025-05-21 14:44 | PC.SS ---
SS update: Patient remains intubated/sedated, EEG is scheduled for Friday, 05/23.
[2025-05-21] MEDS: Magnesium Sulfate 2 GM Ivpb 2 GM/50 ML BAG IV (15:22)
[2025-05-21] MEDS: OFLOXACIN OP SOL 0.3% 5 ML BTL 5 DROP BOTH EARS ×2 (16:00→20:11)
[2025-05-21] MEDS: PROPOFOL 1,000 MG IVPB 1,000 MG/100 ML VIAL 10.515 MG IV (16:00)
[2025-05-21] MEDS: PHENobarbital Inj 130 MG, SODIUM CHLORIDE 0.9% FLUSH 12 ML IVP (21:30)
[2025-05-22] VITALS (33 sets, daily range): BP systolic 102–154; BP diastolic 47–95; PULSE 87–139; RESP 14–35; TEMP 36.2–38.4; O2SAT 94–100; BMI 32.1
[2025-05-22] MEDS: PROPOFOL 1,000 MG IVPB 1,000 MG/100 ML VIAL 12.618 MG IV
[2025-05-22] MEDS: MIDAZOLAM INJ 1 MG/ML VIAL 2 ML 2 MG IVP ×3 (02:37→17:45)
[2025-05-22] MEDS: fentaNYL 2,500 MCG/250 ML BAG 2,500 MCG/250 ML BAG 15 MCG IV (05:13)
[2025-05-22] MEDS: MEROPENEM INJ 1,000 MG in SODIUM CHLORIDE 0.9% (Popper) 50 ML 100 MG IV (05:18)
[2025-05-22] MEDS: HEPARIN SOD INJ 5000 UNIT/ML VIAL SC ×3 (05:18→23:23)
[2025-05-22] MEDS: PROPOFOL 1,000 MG IVPB 1,000 MG/100 ML VIAL 16.824 MG IV ×4 (05:38→23:23)
[2025-05-22 05:52] LABS: Basophils # (Auto) 0.1 Thou/mm3 (0.0-0.2); Basophils % (Auto) 1 % (0-2.5); Eosinophils # (Auto) 0.7 Thou/mm3 (0.0-0.5); Eosinophils % (Auto) 6 % (0-10); Hematocrit 26.7 % (41.0-53.0); Immature Granulocytes Auto 0.10 Thou/mm3 (0.00-0.00); Lymphocytes # (Auto) 2.5 Thou/mm3 (1.0-4.8); Lymphocytes % (Auto) 23 % (10-50); Mean Corpuscular HGB Conc 32.2 g/dl (31.0-37.0); Mean Corpuscular Hemoglobin 28.2 pg (25.0-35.0); Mean Corpuscular Volume 88 fL (80-100); Monocytes # (Auto) 1.7 Thou/mm3 (0.0-0.8); Monocytes % (Auto) 16 % (0-12); Neutrophils # (Auto) 5.7 Thou/mm3 (1.8-7.7); Neutrophils % (Auto) 53 % (37-80); Nucleated Red Blood Cell # 0.00 Thou/mm3 (0.00-0.00); Nucleated Red Blood Cell % 0 /100 WBC (0); Platelet Count 776 Thou/mm3 (140-440); RDW Standard Deviation 47.8 fL (35.1-43.9); Red Blood Count 3.05 Miln/mm3 (4.50-5.90); White Blood Count 10.8 Thou/mm3 (3.8-10.6)
--- NOTE | 2025-05-22 05:55 | PC.NURSE ---
DR. NOVAK NOTIFIED OF PT'S TEMP 101.1 F CORE, COOLING MEASURES DONE, HR 130'S. NEW ORDER RECEIVED.
[2025-05-22 05:58] LABS: Hemoglobin 8.6 g/dL (13.5-16.0)
[2025-05-22] MEDS: IBUPROFEN SUSP 100 MG/5 ML UDC GT (06:08)
[2025-05-22 06:15] LABS: Alanine Aminotransferase 118 U/L (10-49); Albumin, Serum 3.8 gm/dL (3.5-5.0); Albumin/Globulin Ratio 1.4 (1.2-2.2); Alkaline Phosphatase 108 U/L (46-116); Anion Gap 10 (7-16); Aspartate Amino Transferase 92 U/L (0-34); BUN/Creatinine Ratio 30 Ratio (12-20); Bilirubin,Total 0.2 mg/dL (0.3-1.2); Blood Urea Nitrogen 18 mg/dL (9-23); Calcium 8.9 mg/dL (8.3-10.6); Calcium (Corrected) 9.1 mg/dL (8.5-10.1); Carbon Dioxide 26.4 mMol/L (20.0-31.0); Chloride 102 mMol/L (98-107); Creatinine (Component) 0.6 mg/dL (0.6-1.3); Estimated Creatinine Clearance 162.9 mL/min (>60); Globulin 2.8 gm/dL (2.3-3.5); Glucose 108 mg/dL (74-106); Magnesium 1.9 mg/dL (1.6-2.6); Osmolality,Calculated 278 (275-295); Phosphorous 4.9 mg/dL (2.4-5.1); Potassium 4.3 mMol/L (3.4-5.1); Sodium 138 mMol/L (136-145); Total Protein 6.6 gm/dL (5.7-8.2); eGFR > 60 See Note
[2025-05-22 08:02] LABS: Iron 24 mcg/dL (65-175); Percent Iron Saturation 10 % (20-55); Total Iron Binding Capacity 226 mcg/dL (250-425); Unsaturated Iron Binding 202 (225-295)
[2025-05-22] MEDS: OFLOXACIN OP SOL 0.3% 5 ML BTL 5 DROP BOTH EARS ×2 (08:13→20:13)
[2025-05-22] MEDS: CALCIUM CARBONATE 600 MG TABLET GT (08:14)
[2025-05-22] MEDS: PHENobarbital INJ 130 MG/1 ML VIAL IVP ×4 (08:14→23:41)
[2025-05-22] MEDS: levETIRAcetam INJ 100 MG/ML VIAL 5ML 1000 MG IV ×2 (08:30→20:08)
[2025-05-22] MEDS: MIDAZOLAM INJ 1 MG/ML VIAL 2 ML 4 MG IVP ×2 (08:45→20:46)
[2025-05-22 09:49] LABS: Chlamydia trachomatis PCR Negative (Not Detect); Neisseria Gonorrhoeae DNA PCR Negative (Not Detect); Trichomonas Negative (Negative)
--- NOTE | 2025-05-22 14:10 | EVENTNT_ITS ---
<Statement entered by Jeanine Baeza MD - 05/23/25 12:02> I saw and evaluated the patient. I reviewed the resident?s note and agree with findings and plan as documented in the resident?s note. <Statement entered by Ronnell rOozco MD - 05/22/25 15:16> I agree with current discussion stated by by Resident Physician Plan of care was discussed with the attending physician and resident physician. Disclaimer: Despite multiple revisions, due to the dictation software being used, the document bellow may not be free of grammatical errors including phonetic/typographic errors. However, this does not deter from our commitment to providing health care in the patient's best interest in mind. Ronnell Orozco MD, PGY 3 Documentation for date of: 05/22/25 Event Note Event Note: Update Discussion with Family Time: 9:45 AM logistics planner: IC: 102. Attendees: Dr. Baeza (attending), Dr. Orozco (senior resident), Patient?s Mother and Father. The patient's family was informed about the difficulties encountered when attempting to wean the patient off sedation for extubation. When sedation is reduced, the patient has these episodes where he gets agitated, exhibits full- body shaking, and experiences an increase in heart rate, respiratory rate, and fevers. These hypersympathetic activity appear seizure-like. EEG performed two days ago showed electrographic seizure activity. The family was also informed that the patient is currently on five different seizure medications. Despite the potency and high doses of these medications, the seizures remain uncontrolled. The family noted that the seizures appear different from those the patient experiences at home, which is likely due to the current medication regimen. It was explained that [facility] does not perform continuous 24/7 EEG monitoring, which is necessary to track seizure activity while weaning off sedation. As a result, the patient will need to be transferred to a facility equipped for co ntinuous EEG monitoring. The family agreed to the transfer. The patient's father inquired about tracheostomy as patient has been intubated for almost 14 days. The family was reassured that the tracheostomy will be addressed once the seizures are better controlled, as managing the seizures remains the priority. Despite an extensive workup, no definitive cause for the patient's recurrent fevers has been identified. However, it is possible that the seizures themselves are contributing to the recurrent fevers. The parents were given the opportunity to ask any additional questions or express concerns. All questions were answered to their satisfaction, and the parents verbally acknowledged their understanding of the information provided. Disclaimer: This note was dictated by speech recognition. Minor errors in central communications specialist may be present due to voice recognition software. - Diaz Coppola DO, PGY-1
--- NOTE | 2025-05-22 14:50 | ESPR_ITS ---
<Statement entered by Jeanine Baeza MD - 05/23/25 11:53> TOTAL TIME: 45MINUTES ON DIRECT MEDICAL CARE, MANAGEMENT - COORDINATION AND COUNSELING > 50% OF TOTAL TIME I saw and evaluated the patient. I reviewed the resident?s note and agree with findings and plan as documented in the resident?s note. I personally discussed Mr. Baltazar's case with the neurocritical care physician at [facility]. They agreed to accept the patient if we could confirm that he was in status. The plan is to wean sedation again after setting up continuous EEG monitoring. In the meantime the infectious disease workup remains unrevealing. This apparent neuro storm is obviously not from a traumatic brain injury but subsequent testing may be necessary and we will consult again with neurology tomorrow. <Statement entered by Ronnell Orozco MD - 05/22/25 19:18> Patient was seen and examined at the bedside in ICU. Overnight, patient had fever spikes. This morning, patient was seen and was continued to be on propofol and fentanyl. Medications doses were adjusted. Increased frequency of phenobarb phenobarbital 130 mg Q6 hourly from Q8 hourly. Versed 5 mg every 5 minutes until seizures stopped. Although C. difficile was ordered but patient did not had a bowel movement and was getting MiraLAX so less likely. Family discussion was performed in terms of patient's ongoing seizures and trying to find underlying cause. Transfer nurse was involved and extensive discussion was performed between transfer facility and cytotechnologist/cytology supervisor. Plan is to perform extended EEG today to see if patient is having ongoing seizures/status epilepticus if that would be the case patient will be likely transferred tomorrow after discussion with the family regarding prognosis. Tracheostomy discussion was briefly discussed in the goals of care today however they were informed that first will address the cause of seizure first and then discuss regarding tracheostomy later with discussion on prognosis. Patient had PVCs during evening therefore labs were repeated which showed potassium 5.2 therefore calcium gluconate and breathing treatment was ordered. 4 g mag was ordered which improved mag from 1.9 to 2.3. EKG showed sinus tachycardia with QTc 426. Sevelamer was added for hyperphosphatemia. Patient had acute urine retention bladder scan showed 700 cc therefore Hawkins catheter was inserted as patient's catheter was leaking and post void urine retention noted. All labs and orders were reviewed. RT is aware to start EEG overnight. I discussed and supervised with the wedding planning internship physician who took care of this patient. I personally saw and examined the patient. I agree with most of the assessment and plan. Disclaimer: Despite multiple revisions, due to the dictation software being used, the document bellow may not be free of grammatical errors including phonetic/typographic errors. However, this does not deter from our commitment to providing health care in the patient's best interest in mind. Plan of care discussed with attending Physician Dr. Felisha Orozco MD PGY-3 Documentation for date of: 05/22/25 Subjective Subjective Interval history: 05/22/2025: Overnight, the patient developed fever spikes, with the highest reaching 101?F. Cooling measures were ineffective, and Ibuprofen was administered. In response to the patient's condition, fentanyl was increased from 100 mcg to 150 mcg, and propofol was increased from 35 mcg to 40 mcg. Urine output over the past 12 hours was 1100 cc. Given the recurrence of fevers and signs of hypersympathetic activity, the phenobarbital dosage was increased to 130 mg every 6 hours, up from every 8 hours. C. diff PCR testing is pending for loose stools. The patient has been receiving Versed every 5 minutes for seizure-like activity until it resolves. The ICU team held an extensive discussion with the patient?s parents regarding the next steps, which include transferring the patient to a facility capable of continuous EEG monitoring while weaning off sedation, as the patient continues to experience persistent seizures. Last day of meropenem to complete 10 day course. 05/21/2025: Overnight, patient developed two fever spikes, with a maximum temperature of 102.6?F. Fevers were managed with Tylenol and cooling measures. Hawkins catheter was removed and replaced with a QiVi external catheter, with urine output of 1,650 cc over the past 12 hours. Propofol was increased from 30 to 35 mcg/kg/min due to agitation and the patient breathing over the ventilator, while fentanyl maintained at 150 mcg/hr. No bowel movement was reported overnight. Neurology agreed with gradual weaning of sedation as tolerated. EEG is scheduled for Friday, 05/23, and daily EEG monitoring is not required. Ear culture returned with Brittney, likely from normal hamilton from the ear swab. Ears were examed with otoscope. Right ear unremarkable. Left ear canal with clear liquid, like from ofloxacin ear drops. Reduced phenobarbital to 130 mg every 8 hours and clonazepam to 1mg BID. Versed 2 mg IV is available as needed for agitation. Continue meropenem. Fungal culture of ear culture grew Brittney, likely representing normal hamilton from the ear swab. Patient exhibited green penile discharge following hawkins removal. A chlamydia and gonorrhea test was ordered. Right arm is warm and tense to touch from IV infiltration, IV was removed and placed in distal part of the right forearm. 05/20/2025: Overnight, patient had a fever spike of 101.2F. Patient remained on Propofol 40 and Fentanyl 150 for sedation. Precedex was not needed for agitation. Urine output was 2800 cc in the past hours with no gross hematuria. No bowel movement. Patient?s phenobarbital dose was adjusted to 260 mg every 8 hours. Keppra dose was increased to 1000 mg twice daily as per the neurologist?s recommendation. An EEG revealed electrographic seizure activity. A repeat sputum culture was obtained due to contamination of the previous sample. Additionally, a gradual wean of propofol and fentanyl was initiated as tolerated. 05/19/2025: Overnight, patient had a fever spike of 102.2?F. Due to agitation, the Versed infusion was increased from 4 mg/gtt to 8mg/gtt. Patient was also receiving Propofol 30 and Fentanyl 150. Patient had one bowel movement and produced 1L of urine over the past 12 hours, with no evidence of gross hematuria. Versed 4 mg gtt was titrated up to 8mg gtt for patient's agitation. Patient was on Propofol 30 and Fentanyl 150. Patient had one bowel movement. Urine output was 1L in the past 12 hours with no gross hematuria. This morning, clonazepam 2 mg PO TID was initiated, Propofol infusion was increased to 50 mcg/kg/min, and fentanyl was maintained at 50 mcg/hr. The versed infusion was discontinued, and Meropenem was restarted to treat Pseudomonas pneumonia, since the patient continued to spike fevers despite discontinuation of the medication. Sputum culture and EEG will be repeated. Heparin was restarted for DVT PPX. 05/18/2025: Overnight, patient remained on Propofol 30 and Fentanyl 300, with Versed 2mg dose x1. Magnesium was given for bronchodilation. Ibuprofen given for fever. Plan was to wean off sedation and extubate the patient today, but due to significant oral secretions and concerns about potential aspiration and the patient's inability to protect the airway, the decision was made to keep the patient intubated for now. A spontaneous breathing trial was attempted, and the patient?s lungs are functioning well. However, given the ongoing agitation, sedation could not be reduced. Phenobarbital dose was increased from 130mg to 260mg every 6 hours, and a 4mg Versed drip was started. Olanzapine was discontinued, and both doxycycline and meropenem were stopped due to concerns of a potential drug reaction, as fever spikes worsened after the initiation of meropenem on 05/12. Heparin was restarted yesterday for a DVT in the left brachial vein but was discontinued this morning due to ongoing hematuria without clots. A follow-up Doppler will be performed in 2-3 days to assess whether the DVT has resolved. Patient?s urine output was 2240cc over the past 12 hours. Maintenance fluids were started at 100ml/hr to manage the increased urine output. ICU team spoke with the patient's mother today, providing updates on the changes in the medication regimen and the patient's current status. Informed her that this is Day 9 of intubation, and there are four more days to attempt extubation before considering a tracheostomy. TSH, EBV, and CMV panels were ordered for further evaluation. 05/17/2025: Overnight,patient was placed on droplet precautions due to positive rhinovirus and human metapneumovirus. Patient received a 4 mg dose of Versed for agitation. Heparin drip was initiated for an upper extremity DVT but was paused at 12:15 AM due to hematuria without clots. Urine output was approximately 170 cc/hr, and the patient had two bowel movements since yesterday. Today, the patient underwent bronchoscopy and tolerated the procedure well, with stable gas exchange observed. To facilitate weaning off fentanyl and propofol, the patient was started on phenobarbital 13 mg and oxycodone 10 mg scheduled TID. Will consider adding Precedex to further support the weaning process and work towards extubation tomorrow. Heparin drip for the DVT has been restarted as the hematuria is improving. Additionally, 1L of IV LR was administered to address hyperkalemia and hyperphosphatemia on AM labs. Plan is to remove the Hawkins catheter tomorrow, 05/18. 05/16/2025: Overnight, patient experienced intermittent spasmodic jerking episodes, lasting about 15-20 minutes at a time. During these episodes, the patient becomes tachycardic and febrile. Baclofen 10mg was administered, followed by a single dose of midazolam 2mg IV for agitation. Patient remains on fentanyl 100 mcg/hr and propofol 50 mcg/kg/min for sedation. Patient spiked a fever of 102.6?F, for which IV tylenol was given. A subsequent temperature of 102.4?F was treated with ibuprofen. The Hawkins catheter was replaced overnight. Urine output over the past 12 hours was approximately 850 mL. Patient has not had a bowel movement since 05/13, will add miralax. Due to persistent fevers, doxycycline 100 mg IV BID was initiated for gram-positive cocci coverage. Blood cultures will be repeated, and a right upper quadrant ultrasound has been ordered to evaluate for potential hepatobiliary source of infection. Liver enzymes are improved from yesterday. Planned Interventions: Initiate phenobarbital 130 mg IV every 6 hours and begin weaning off propofol. Increased olanzapine from 5 mg GT QHS to 5 mg TID. Perform bilateral upper extremity ultrasound to assess for DVT. Repeat UA, CXR, CT head and abd/pelvis. Check lipase levels. 05/15/2025: Overnight, the patient developed a fever of 101.8?F. PO acetaminophen was switched to IV formulation by the night team. Temperature improved to 99.5?F by morning. Urine output over the past 12 hours was approximately 620 cc. Liver enzymes continue to trend upward, will hold acetaminophen for now. Patient was weaned off midazolam infusion today. Plan is to begin tapering propofol next. Antipsychotic regimen was adjusted from quetiapine to olanzapine to minimize risk of QTc prolongation. Repeat chest X- ray showed improvement in bilateral pneumonia. Bronchoscopy was performed yesterday (05/14). Repeat procedure is being considered for 05/16. Increase in WBCs and fever likely from bronchoscopy. 05/14/2025: No acute events overnight. Stable on versed/ fentanyl and propofol. No vasopressor requirements. Patient underwent bronchoscopy, well tolerated. Gas exchange stable. PPeak remains in mid20s. Patient on minimal FiO2 and PEEP now. Good ventilator synchrony. Continues to have heavy drooling and output form upper airway. Minimal from ETT now. 05/13/2025: Patient increased FiO2 overnight to 100%. Difficulty managing secretions. Bleeding from nose and plugging. Agitated with maximal dose of precedex and benadryl pushes. Patient with low grade temp to 100.4F. Mild secretions from ETT, pink/ frothy. 05/12/2025: Patient weaned down on sedation. Tmax 102 degrees at 1600 hrs. 05/11. Patient developed mild hepatitis, likely response to medications, will monitor. Patient successfully weaned off of propofol and fentanyl, Precedex initiated. Patient extubated, placed on high flow. Continues to have high secretions, treated with chest PT, oral suctioning as needed, ipratropium breathing treatments scheduled. Patient notably agitated, treating with Benadryl as needed and Precedex drip. Will continue to try and decrease sedation while maintaining patent airway. Sputum culture grew thurman resistant Pseudomonas, meropenem initiated. Will continue Levaquin for now pending cultures. Ear cultures taken. Patient maintaining good urine output, will replete volume if patient exceeds greater than 2 L output. 05/11/2025: Overnight, the patient became increasingly agitated and was observed biting on the endotracheal tube. In response, propofol was increased from 40 mcg/kg/min to 45 mcg/kg/min, and fentanyl was increased from 200 mcg/hr to 250 mcg/hr. The plan is to attempt weaning the patient off sedation today, and work towards extubation. A lumbar puncture was performed, which showed 3 WBCs. Infection from meningitis is less likely, but culture results are pending for confirmation. Today, the patient has been experiencing a low-grade fever, with the highest recorded temperature being 100.4?F. After the Hawkins catheter was placed, the patient had 1700 cc of urine output over the past 12 hours. Followed up with Dr. Jacky Cuadra (ENT in [place]). Dr. Cuadra stated that there is nothing additional he could identify on the CT imaging that the radiologist has not already seen. And that if there was something it would likely be surgical and he does not perform surgeries. He recommended covering for Pseudomonas with clindamycin and Unasyn. The plan is to start levofloxacin for Pseudomonas coverage as well. Additionally, Dr. Cuadra suggested culturing the ear. 05/10/2025: Patient remained sedated with propofol and fentanyl throughout the night, maintaining adequate sedation levels. Around 2 AM, the propofol dose was reduced due to MAP in the 60s. 1L of LR was administered on top of the ongoing IV maintenance fluids at 100cc/hr. Following this, the MAP remained stable above 65. At 6:50 PM on 05/09, an ABG revealed a pH of 7.28, pCO2 of 55, and pO2 of 70, indicative of respiratory acidosis. Patient was given 5 grams of magnesium and 15 mg of albuterol over the course of an hour to promote bronchodilation. Magnesium also needed to be repleted. A repeat ABG showed normalization of the respiratory parameters. Patient's Hawkins catheter was removed and replaced with a QiVi catheter overnight per the patient's father?s request. However, the patient developed urinary retention. A bladder scan performed at 6 AM showed 295cc of retained urine, and a subsequent scan in the afternoon revealed 439cc. Primary team consulted ICU team. On 05/09, two rapid responses were initiated due to the patient?s escalating agitation and anxiety. Patient appeared to be in significant pain from his paraphimosis. The primary team consulted the ICU for further management, as the patient had already received diazepam, haldol, versed, and dilaudid earlier that morning, with inadequate relief. Additionally, there was concern over a decline in his pO2 levels. The initial ABG at 11:56 showed: pH 7.40, pCO2 40, pO2 131, HCO3 25. A repeat ABG at 13:40 revealed: pH 7.27, pCO2 43, pO2 53, HCO3 20. Upon evaluation by the ICU team, the patient was noted to be extremely agitated and wearing an oxygen mask, with audible gurgling sounds coming from the upper airway, raising concern for potential airway compromise. Given the risk of inadequate airway protection, the decision was made to transfer the patient to the ICU for intubation and further management. In the ICU, the patient was intubated. Urology, Dr. Vargas, was consulted earlier in the day. He was able to successfully perform a reduction of the paraphimosis. Telemetry Course: Patient was admitted to telemetry for further workup and management of sepsis of unknown source, with concern for meningitis. Empiric broad-spectrum antibiotic and antiviral therapy were started, consisting of ceftriaxone 2g IV twice daily, vancomycin (pharmacy to dose), ampicillin, and acyclovir. Neurology was consulted. CT of the orbit, sella, and inner ear was ordered given the patient?s history of acute mastoiditis, which showed severe bilateral chronic mastoiditis, bilateral otitis externa, bilateral otitis media, and bilateral cholesteatomas in the attics. CT head was also performed and was negative for acute hemorrhage, mass effect, or midline shift. Findings included prominent sphenoid, ethmoid, and maxillary antral sinusitis, bilateral chronic mastoiditis, bilateral otitis media, and opacification in the bilateral attics. For the patient?s seizures, his home medications of valproic acid and levetiracetam were restarted. Orders for midazolam and Haldol were placed as needed for breakthrough seizures and agitation. An ice pack was ordered for his paraphimosis. Infectious disease was also consulted. History of Present Illness: 24-year-old male with a past medical history significant for cerebral palsy, asthma, seizure disorder, chronic mastoiditis (previously treated with tympanostomy tube placement for recurrent otitis media, now removed), recurrent pneumonia, and chronic PEG tube dependence, presented to the ED on 05/08/2025 with a fever lasting over 24 hours. The patient also had a witnessed seizure episode lasting 5-10 seconds, characterized by tonic-clonic activity confined to the left side of the body. ED Course: -Initial vitals were: BP 122/84, HR 176, RR 26, T 105F, O2 sat 96% on room air. -Labs significant for: CBC showed a WBC of 16.3. CMP showed Na 148, K 5.2, Cl 107, bicarbonate 18.7, anion gap 22, creatinine 1.3 (baseline 0.7), lactic acid 3.2, alkaline phosphatase 120, LDH 352, total CK 1048, procalcitonin: 0.14. Urinalysis negative. Influenza A/B testing was negative. -Imaging included: EKG showed supraventricular tachycardia of HR [address] and T-wave abnormality. CXR showed no aspiration pneumonia but was noted to be of poor inspiratory effort. CT CAP w/o contrast seemed to show no gross infiltrates or other notable findings but was noted to be severely degraded by patient motion. -In the ED, patient was given acetaminophen 975 mg, ceftriaxone 1 gram IV, midazolam 2 mg IV x1, albuterol 2.5 mg, Zosyn 3.375 gram, 2 L NS fluid infusion, and 1 L LR fluid infusion. In the ED, the patient was agitated and pulled out his IV. Attempts at peripheral access were unsuccessful, and a right femoral central line was placed. Exam Vital Signs Temp Pulse Resp BP Pulse Ox O2 Del Method O2 Flow Rate 100.0 F 89 35 H 102/48 L 100 Mechanical Ventilation 35 05/22/25 08:00 05/22/25 14:08 05/22/25 06:29 05/22/25 14:08 05/22/25 14:08 05/22/25 04:00 05/16/25 12:00 FiO2 30 05/22/25 14:08 Narrative Exam Physical Exam General: sedated and intubated, nonverbal at baseline, not in acute distress. RASS score -4 (no response to voice, but movement to noxious stimuli). Head: Normocephalic, atraumatic. Eyes: PERRL. Anicteric. Bilateral lateral eye scleral hemorrhage. Mouth/Throat: Poor dentition. Oral mucosa moist with excessive secretions. ETT in place. Cardiovascular: Regular rate and rhythm, no murmur. Respiratory: Rhonchi to auscultation in bilateral lung thompson. Gastrointestinal: PEG tube in place, site is clean, dry and intact. Soft, no guarding or rebound tenderness. Genitourinary: QiVi external catheter in place. Extremities: Contracted and swollen hands. No LE edema, cyanosis, mottling, clubbing. 2+ radial pulse bilaterally, 2+ posterior tibial pulse bilaterally. Objective Labs 05/22/25 04:55 05/22/25 17:47 Labs: Laboratory Results - last 24 hr 05/21/25 05/22/25 05/22/25 00:00 04:50 04:55 WBC 10.8 H RBC 3.05 L Hgb 8.6 L Hct 26.7 L MCV 88 MCH 28.2 MCHC 32.2 RDW Std Deviation 47.8 H Plt Count 776 H D Neut % (Auto) 53 Lymph % (Auto) 23 Tyrrell % (Auto) 16 H Eos % (Auto) 6 Baso % (Auto) 1 Neut # (Auto) 5.7 Lymph # (Auto) 2.5 Tyrrell # (Auto) 1.7 H Eos # (Auto) 0.7 H Baso # (Auto) 0.1 Immature Gran # (Auto) 0.10 H Absolute Nucleated RBC 0.00 Immature Gran % 1 H Nucleated RBC % 0 Sodium 138 Potassium 4.3 D Chloride 102 Carbon Dioxide 26.4 Anion Gap 10 BUN 18 Creatinine 0.6 Estim Creat Clear Calc 162.9 eGFR > 60 BUN/Creatinine Ratio 30 H Glucose 108 H Calculated Osmolality 278 Calcium 8.9 Corrected Calcium 9.1 Phosphorus 4.9 Magnesium 1.9 Iron 24 L TIBC 226 L Iron Saturation 10 L Unsat Iron Binding 202 L Total Bilirubin 0.2 L AST 92 H ALT 118 H Alkaline Phosphatase 108 Total Protein 6.6 Albumin 3.8 Globulin 2.8 Albumin/Globulin Ratio 1.4 Chlam trachomat DNA PCR Negative N.gonorrhoeae DNA (PCR) Negative Trichomonas DNA Probe Negative ABG Interpretation ABG results: 05/09/25 05/09/25 05/09/25 11:56 13:40 18:50 ABG pH 7.40 7.27 L D 7.28 L ABG pCO2 40 43 55 H D ABG pO2 131 H 53 L* D 70 L ABG HCO3 25 20 26 ABG O2 Saturation 99 H 81 L 92 ABG Base Excess 0 -7 L -2 05/10/25 05/11/25 05/12/25 00:14 05:06 01:18 ABG pH 7.35 7.33 L 7.39 ABG pCO2 42 D 54 H D 48 ABG pO2 103 D 93 94 ABG HCO3 23 28 H 29 H ABG O2 Saturation 99 H 98 98 ABG Base Excess -3 2 3 05/12/25 05/12/25 05/13/25 03:58 11:50 05:10 ABG pH 7.46 H 7.39 7.19 L* D ABG pCO2 41 48 60 H D ABG pO2 105 58 L* D 114 H D ABG HCO3 29 H 29 H 23 ABG O2 Saturation 99 H 90 L 98 ABG Base Excess 5 H 4 H -6 L 05/17/25 05/18/25 05/19/25 01:30 04:09 04:43 ABG pH 7.38 7.43 7.47 H ABG pCO2 46 44 43 ABG pO2 90 83 80 L ABG HCO3 27 H 29 H 31 H ABG O2 Saturation 98 97 97 ABG Base Excess 2 5 H 7 H 05/21/25 05/21/25 04:18 06:33 ABG pH 7.37 D 7.46 H ABG pCO2 50 H 38 D ABG pO2 40 L* D 121 H D ABG HCO3 29 H 27 H ABG O2 Saturation 66 L 100 H ABG Base Excess 3 3 Quality Measures Quality Measures VTE prophylaxis (SCDs) and sepsis Current suspected stage: sepsis Possible source: pulmonary Blood cultures ordered: yes Antibiotic ordered: Yes Assessment & Plan Assessment Current Active Medications: Generic Name Dose Route Start Last Admin Trade Name Freq PRN Reason Stop Dose Admin Acetaminophen 650 mg 05/14/25 05:13 05/14/25 18:15 Acetaminophen 325 Mg Tablet PO 06/13/25 05:12 650 mg On Hold: 05/14/25 23:01 Q6HR PRN Administration Fever >100.4 Albuterol/Ipratropium 3 ml 05/09/25 18:19 05/20/25 01:36 Albuterol/Ipratropium (Duoneb) Rt Racquel 3 Ml Nebu INH 06/08/25 18:18 3 ml Q2HR PRN Administration SHORTNESS OF BREATH OR WHEEZE Baclofen 10 mg 05/16/25 00:26 05/20/25 01:40 Baclofen 10 Mg Tablet PO 06/15/25 00:25 10 mg TID PRN Administration Spasms Calcium Carbonate 600 mg 05/20/25 18:20 05/22/25 08:14 Calcium Carbonate 600 Mg Tablet GT 06/19/25 18:19 600 mg QDAY KYA Administration Clonazepam 1 mg 05/21/25 21:00 05/22/25 08:14 Clonazepam 0.5 Mg Tablet PO 05/26/25 20:59 1 mg BID KYA Administration Heparin Sodium (Porcine) 5,000 unit 05/19/25 06:00 05/22/25 05:18 Heparin Sod Inj 5000 Unit/Ml Vial SC 06/02/25 05:59 5,000 unit Q8HR KYA Administration Valproic Acid 187.5 mg/ Sodium 51.875 mls @ 51.875 mls/hr 05/09/25 18:00 05/22/25 12:35 Chloride IV 06/07/25 17:59 51.8 mls/hr Q6HR KYA Administration Protocol Propofol 1,000 mg in 100 mls @ 2.103 mls/hr 05/13/25 04:16 05/22/25 12:10 Diprivan Ivpb IV 06/12/25 04:15 40 mcg/kg/min .Q24H PRN 16.824 mls/hr PER PROTOCOL Administration Protocol 5 MCG/KG/MIN Fentanyl Citrate 2,500 mcg in 250 mls @ 2.5 mls/hr 05/18/25 07:25 05/22/25 12:00 Sublimaze Inj 2,500 Mcg/250 Ml Bag IV 05/23/25 07:24 15 mcg/hr .Q24H PRN 1.5 mls/hr PER PROTOCOL Titration Protocol 25 MCG/HR Midazolam HCl 100 mg in 100 mls @ 4 mls/hr 05/18/25 10:33 05/19/25 16:00 Versed Pf Inj In Ns Premix IV 05/23/25 10:32 0 mg/hr .Q24H PRN 0 mls/hr PER PROTOCOL Titration Protocol 4 MG/HR Levetiracetam 1,000 mg 05/20/25 21:00 05/22/25 08:30 Levetiracetam Inj 100 Mg/Ml Vial 5ml IV 06/19/25 20:59 1,000 mg BID KYA Administration Midazolam HCl 2 mg 05/22/25 13:08 Midazolam Inj 1 Mg/Ml Vial 2 Ml IVP 05/26/25 09:47 Q5MIN PRN seizures or agitation Ofloxacin 5 drop 05/21/25 14:45 05/22/25 08:13 Ofloxacin Op Racquel 0.3% 5 Ml Btl BOTH EARS 05/31/25 14:44 5 drops BID KYA Administration Ondansetron HCl 4 mg 05/08/25 11:36 Ondansetron Inj 2 Mg/Ml Inj 2 Ml IVP 06/07/25 11:35 Q6HR PRN NAUSEA OR VOMITING Protocol Pantoprazole Sodium 40 mg 05/12/25 11:25 05/22/25 08:12 Pantoprazole Inj 40 Mg Vial IVP 06/11/25 11:24 40 mg QDAY KYA Administration Pharmacy Consult 1 each 05/08/25 16:12 Pharmacy To Consult Patient XX 06/07/25 16:11 PRN PRN CONSULT Phenobarbital Sodium 130 mg 05/22/25 12:00 05/22/25 12:35 Phenobarbital Inj 130 Mg/1 Ml Vial IVP 06/05/25 11:59 130 mg Q6HR KYA Administration Polyethylene Glycol 17 gm 05/16/25 09:15 05/22/25 12:27 Polyethylene Glycol 17 Gm Packet PO 06/15/25 09:14 Not Given QDAY KYA Sodium Chloride 3 ml 05/12/25 09:33 Sodium Chloride Rt Racquel 0.9% 3 Ml Nebu INH 06/11/25 09:32 PRN PRN SOLN Sodium Chloride 3 ml 05/17/25 11:43 Sodium Chloride Rt Racquel 0.9% 3 Ml Nebu INH 06/16/25 11:42 PRN PRN SOLN Plan 24-year-old male with cerebral palsy, asthma, seizure disorder, chronic mastoiditis, recurrent pneumonia, and chronic PEG tube dependence presented with fever and seizure, was admitted for sepsis workup, and later transferred to the ICU for intubation due to concerns about airway protection. Neurology #Agitated delerium Patient was extremely agitated before ICU admission, likely due to pain from paraphimosis. Patient initially sedated with propofol and fentanyl, titrated to Precedex with Benadryl before extubation. Patient failed extubation and was intubated on 05/12. Propofol and fentanyl was restarted. Diagnostic Test: - 05/22 AM: RASS was -4, no response to voice but movement to physical stimuli. Treatment Review (completed) - Versad 5mg/h was tapered off on 05/15. - Phenobarbital 130 mg IV Q6HR 05/16-05/18. - Olanzapine 5mg daily 05/13-05/16. - Olanzapine 5mg TID 05/16-05/18. - Midazolam 4mg --> 8mg gtt 05/18-05/19. - Oxycodone 10mg GT TID 1021- 05/22. Treatment Plan: - Phenobarbital 130 mg Q6H. - Clonazepam 1mg BID. - Continue to wean off propofol and fentanyl as tolerated, Versad 2mg PRN if patient starts to get agitated. - If continues to be on Propofol, recheck TG on 05/23 (every 72 hours). #History of seizures #Cerebral palsy Diagnosis: - Temperature of 105F on admission. - EEG 05/11 unremarkable - Repeat EEG 05/20: electrographic seizure activity. - Persistent fever spikes. Treatment Plan: - Levetiracetam 1000 mg BID. - Continue valproic acid 187.5 mg Q6H. - Adjust seizure medications if breakthrough seizures persist. - Seizure precautions. - Aspiration precautions. - Repeat EEG on 05/23 per neurology. Cardiovascular #Sinus tachycardia Likely due to infection Diagnostic Test: - Fever spike up to 101.1F overnight. Treatment Plan: - No specific treatment required at this time. Will treat underlying cause. - Continue close cardiac monitoring. - Monitor electrolytes and replete as needed. - Maintain Mg > 2 and K > 4 to reduce arrhythmia risk. Respiratory #Failed extubation 05/12 #Acute hypoxic respiratory failure Diagnostic Test: - CXR 05/11: Mild bilateral perihilar pneumonia. To assess for ventilator associated pneumonia. Not much change from 05/09 CXR. - Pseudomonas from ETT secretions previously (05/09). - CXR 05/15: improvement in bilateral pneumonia. - CXR 05/16: worsening diffuse severe left lung pneumonia. - ABG 05/18: pH 7.43, pCO2 44, pO2 83 and HCO3 29. - CXR 05/19: Significant bilateral pneumonia. Treatment Review (completed): - Patient extubated to [facility] 05/12, chest film with centro-bronchovascular congestion and multifocal pneumonia. - Reintubated overnight 05/13- VC/AC PPeak 20 PEEP 5 FiO2 40%. - Patient underwent bronchoscopy on 05/14 and 05/17 for secretions, well tolerated. Treatment Plan: - Continue meropenem (05/12-05/17, 05/19-05/22, for a total of ten days). - Repeat sputum cultures as prior one is contaminated (05/21 Epithelial Cells/lpf). - Bronchoscopy culture pending. - Chest physiotherapy PRN. - Given the patient's current condition, including severe tachycardia and excessive secretions, he is not considered a suitable candidate for extubation at this time. Therefore, mechanical ventilation will be continued to support respiratory status. - Patient will be reassessed daily to determine if weaning from sedation and extubation can be possible. This is day 13 of intubation, and if extubation remains unfeasible, the possibility of a tracheostomy will need to be considered. Avoid prolonged ETT placement beyond 14-21 days. - Continue MV settings: PEEP 6.0, Ppeak 24.4, Pplateau 12.4. #Bronchospasm #History of asthma Diagnostic Test: - Although the patient has a history of asthma, the bronchospasm is most likely from the irritant effect of blood in the airway. A small amount of blood, which was likely from dryness of the nasal mucosa, was suctioned out during intubation. Treatment Plan: - Magnesium for bronchodilator effect as needed. - Albuterol and Ipratropium as needed. GI, , F/E/N #Chronic PEG tube dependence Treatment Plan: - Jevity 1.5 at 40 ml/hr x 24 hrs via PEG tube by pump (goal). If no IV fluids, water flushes of 35 ml/hr. - ProStat 30ml BID via PEG tube. - Appreciate maintenance inspector recommendations. . - Triglyceride level 05/14 - 290; 05/17 - 312; 05/20 - 221. - Repeat TG levels every 72 hours when on Propofol, which should be discontinued if triglyceride levels reach or exceed 400 mg/dL to prevent hypertriglyceridemia-associated complications. - Next check 05/23 is patient remains on Propofol. #Hepatitis (downtrending) Likely due to meropenem or tylenol that could potentially cause hepatotoxicity. Diagnostic Test: - AST 199 --> 48 --> 87 --> 184 --> 92. - ALT 152 --> 48 --> 56 --> 159 --> 118. - Gallbladder ultrasound 05/16: Normal gallbladder, no gallstones. Fatty infiltration throughout the liver. - Lipase 05/16: 41 wnl. Treatment Plan: - Continue daily LFTs. - Avoid acetaminophen unless fever exceeds 101.0?F or Ibuprofen as alternative. - Will reassess if transaminases continue to rise or clinical status changes. #Hypoalbuminemia (resolved) Likely due to acute hepatitis Diagnostic Test: - UA had urine proteins 1+. - Albumin 4.9 -->3.3 -->2.8 --> 3.2 --> 3.4 --> 2.8 --> 2.5. Treatment Plan: - Monitor LFTs, INR, and bilirubin. - Maintain on PEG tube feeds per maintenance inspector recommendations. #Acute urinary retention (resolved) Treatment Plan - Maintain hawkins catheter. Monitor UOP. - Monitor urine output, replace fluid if needed. - Hawkins changed and replaced on 05/16. - Hawkins removed on 05/20. #Paraphimosis (resolved) #Balanitis (resolved) Diagnostic Test: - Edema and tenderness of the glans penis. - Swelling of the distal retracted foreskin. - Constricting band of tissue proximal to the head of the penis at the coronal sulcus. - Hawkins was removed on 05/09 and transitioned to Oivi external urinary catheter. Discussed with family about the need to reinsert hawkins due to the patient's acute urinary retention. Family were in agreement with this plan. Hawkins was reinserted on 05/10 due to urinary retention. Hawkins changed and replaced on 05/16. - S/p reduction of the paraphimosis by Dr. Vargas on 05/09. Treatment Plan: - Control patient's pain with sedation. - Monitor urine output. Renal #Hyperkalemia (resolved) #Hyperphosphatemia (resolved) DDx: acute kidney injury vs hemolysis vs rhabdomyolysis. Diagnostic Test: - Potassium 5.2. - Phosphorus 5.5. - CK 363. - LDH 350. - Uric acid 3.5. - Hemoglobin 8.8. - Cr 0.6. Treatment Plan: - Monitor BMP and phosphorus. - Monitor potassium levels to avoid arrhythmias. #Acute kidney injury (resolved) DDx: dehydration or vasodilation from sepsis. Diagnositc Test: - Creatinine 1.3 (baseline: 0.7) Treatment Plan: - Continue with free water flushes. - Daily renal panel to trend BUN, Cr, and electrolytes. - Avoid nephrotoxins. - Renally dose meds as appropriate. - Strict I&Os, monitor urine output closely. - Monitor for signs of volume overload or uremic symptoms. #Anion Gap Metabolic Acidosis (resolved) #Lactic acidosis (resolved) DDx: seizures vs sepsis vs acute kidney injury vs hypoperfusion. Likely from seizures as patient has no signs of systemic hypoperfusion such as skin mottling, decreased cap refills. Diagnostic Test: - Admission anion gap 22, lactic acid 16.0, bicarbonate 18.7. Treatment Plan: - Recheck LA as needed. #Rhabdomyolysis (resolving) DDx: seizures vs hyperthermia vs infectious myositis. Diagnostic Test: - CK 1048 --> 3743 --> 1654 --> 338 --> 363. - Witnessed seizure episode lasting 5-10 seconds, characterized by tonic-clonic activity prior to admission. Treatment Plan: - Continue free water flushes at 35 cc/hr. - Monitor urine output. - Correct electrolyte abnormalities. - Control seizures with valproic acid and levetiracetam. - Monitor renal panel. Heme #Acute nonocclusive thrombus in the left brachial vein Diagnostic Test: - Venous doppler study of upper extremities 05/16: Normal right upper extremity deep venous system. Positive for nonocclusive thrombus in the left brachial vein. - Per chart review and patient's parents, patient does not have history of clots. Treatment Review (completed): - Lovenox 30 mg (05-11 - 05/15). - Lovenox 40 mg (05/16). - Heparin loading dose and ggt. Lovenox to heparin due to heparin?s shorter half-life, which allows for more rapid cessation in the event of bleeding, a shorter half life and can be stopped if bleeding occurs. - Stopped heparin ggt due to hematuria on 05/18. Treatment Plan: - Started heparin 5000 SC for DVT PPX on 05/19 as hematuria as resolved. - Primary upper extremity deep vein thrombosis, anticoagulation should be continued for a minimum of three months following the initial thrombotic event. #Leukocytosis DDx: likely due to bronchoscopy vs infection of unknown source vs drug induced Diagnostic Test: - Continue to have fever spikes as high as 102.8?F. - Increase WBCs 8.9 --> 11.1 after bronchoscopy on 05/14. - Increase WBCs 14.7 --> 16.1 after bronchoscopy on 05/17. Treatment Plan: - Treat underlying cause. Treating with meropenem. #Normocytic Anemia DDx: Anemia of Inflammation vs dilutional anemia vs drug-induced anemia. Likely dilutional anemia since patient had normal hemoglobin on admission and from IV fluids per sepsis protocol. No signs of bleeding. Diagnostic Test: - Hemoglobin 7.9. Treatment Plan: - Monitor H&H. - Type and screen. - Transfusing for Hgb <7 or symptomatic. #Thrombocytosis DDx: infection vs reactive Diagnostic Test: - Plt 518 Treatment Plan: - Monitor CMP. #Thrombocytopenia (resolved) DDx: Dilutional versus consumption versus increased destruction due to sepsis. Initial decrease is likely due to dilutional in setting of IV fluids, however his WBC and hemoglobin have leveled off platelets have down trended. Diagnostic test: - Platelets: 209 --> 65-->141. Treatment plan: - Monitor daily labs - Avoid excessive oral tracheal suctioning in setting of previous bleed and thrombocytopenia. Endo #no active problems ID #Sepsis #Bilateral chronic mastoiditis #Sinusitis #Bilateral otitis media #Bilateral otitis externa DDx: meningitis vs acute on chronic mastoiditis vs acute febrile illness. Diagnostic Test: - History of chronic mastoiditis. - Met SIRS criteria on admission: T 105F, HR 176, RR 26, PaCO2 26, WBC 16.3. - 05/08 Lactic acid 16.0. - 05/08 CT Head: prominent sphenoid ethmoid maxillary antral sinusitis, bilateral chronic mastoiditis, bilateral otitis media. - 05/08 CT Orbit Sella Inner: severe bilateral chronic mastoiditis, bilateral otitis externa and otitis media, bilateral cholesteatomas in the attics. - 05/08 MRSA screen negative. - 05/09 Sputum culture: 1+ thurman resistance Pseudomonas. - 05/10 Lumbar puncture: clear, WBC 3, glucose 70, total protein 25. - CSF Streptococcus pneumonia Ag negative. - CSF Streptococcus B antigen negative. - CSF Neisseria meningitis B/E.coli K1 negative. - CSF Neisseria meningitis ACY/W135 Ag negative. - CSF haemophilus influenzae B Ag negative. - CSF enterovirus RNA negative. - CSF West Nile virus IgG antibody negative. - CSF West Nile virus IgM antibody negative. - 05/10 Respiratory viral panel: rhinovirus/enterovirus and human metapneumovirus detected. - 05/12 Bilateral ear culture: E coli ESBL. - UA 05/08 and 05/16 negative. - Blood culture 05/08, 05/11, and 05/16 negative. - 05/16 CTAP: Extensive bilateral pneumonia, cystitis pattern, cholelithiasis. - 05/16 CXR: worsening diffuse severe left lung pneumonia. - 05/16 CT Head: unremarkable. - 05/16 Venous doppler ultrasound: Normal right upper extremity deep venous system. Positive for nonocclusive thrombus in the left brachial vein. Treatment Review (completed) - Rocephin 2 gm IV q12HR [05/08-05/11]. - Vancomycin dosed by pharmacy [05/08-05/11] since MRSA screen is negative. - Acyclovir 700 mg IV [05/08-05/11] since LP negative. - Ampicillin 2 gm IV q4HR [05/08-05/09] as patient not in the age group at risk for Listeria infection. - Fluids: 30mL/kg -- 2 L NS fluid infusion and 1 L LR fluid infusion was given in the ED. - Femoral central line removed 05/11, replaced with peripheral access. - Levaquin 750 mg IV [05/11-05/12]. - Doxycycline 100mg IV BID [05/16-05/18] for GPC coverage. - Meropenem 1 g IV [05/12 -05/18]. - Meropenem [05/19-05/22] for ten days total. Treatment Plan: - Topical oxofloxacin. - Last day of Meropenem. - Patient has limited options in terms of antibiotics in the future as meropenem is broad-spectrum. May have to consider ceftazidime or ceftaroline if he continues to develop recurrent infections. Integumentary #Maculopapular rash to the buttocks DDx: contact dermatitis vs allergic dermatitis Treatment Plan - Patient no longer has diaper on as hawkins is in place. Anticipate rash to improve. Health Maintenance DVT prophylaxis: SCDs, heparin subQ GI prophylaxis: Protonix IV Diet: Jevity Hawkins: QiVi external cath Lines: Peripherals Drips: Propofol, fentanyl. Vent: MV, PPlat <30 and TV < 8 ml/kg IBW CODE STATUS: FULL CODE Patient plan of care was discussed with the senior resident, Dr. Orozco, and attending physician, Dr. Baeza. Diaz Coppola, DO Internal Medicine PGY-1
--- NOTE | 2025-05-22 16:08 | PC.CM ---
Addendum entered by Hailey Esquivel RN 05/22/25 17:06: I updated ICU charge nurse. Packet started and left on transfer nurse desk. Original Note: 1515 I received a call from Lissette with [facility] and I did a conference call with Dr. Baeza, Dr. Orozco, and Dr. Chavira ([facility]). They discussed patient in great detail and they decided patient does not need transfer until they complete an repeat EEG tomorrow. We can reach out to [facility] tomorrow after the EEG is competed and we have the results. 1430 I received a call from Lissette with [facility] and I did a conference call with her and Dr. Orozco. I started transfer packet. 1310 I contacted [facility] and I spoke to Lissette. I faxed over informationand I pushed over images. 1200 I received a referral to transfer patient for neurology for 24/7 EEG monitoring. Patient is currently intubated and we have not been able to ween. Family would like patient to be transferred to the [facility].
--- NOTE | 2025-05-22 16:24 | EKG_ITS ---
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
[2025-05-22] MEDS: Magnesium Sulfate 4 GM Ivpb 4 GM/50 ML BAG IV (16:47)
[2025-05-22 18:50] LABS: Anion Gap 10 (7-16); BUN/Creatinine Ratio 33 Ratio (12-20); Blood Urea Nitrogen 20 mg/dL (9-23); Calcium 9.3 mg/dL (8.3-10.6); Carbon Dioxide 25.1 mMol/L (20.0-31.0); Chloride 100 mMol/L (98-107); Creatinine (Component) 0.6 mg/dL (0.6-1.3); Estimated Creatinine Clearance 156.5 mL/min (>60); Glucose 111 mg/dL (74-106); Magnesium 2.3 mg/dL (1.6-2.6); Osmolality,Calculated 273 (275-295); Phosphorous 6.1 mg/dL (2.4-5.1); Potassium 5.2 mMol/L (3.4-5.1); Sodium 135 mMol/L (136-145); eGFR > 60 See Note
--- NOTE | 2025-05-22 18:57 | EKG_ITS ---
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
[2025-05-22] MEDS: fentaNYL 2,500 MCG/250 ML BAG 2,500 MCG/250 ML BAG 20 MCG IV (19:19)
[2025-05-22] MEDS: CALCIUM GLUCONATE 10% INJ 1 GM/10 ML VIAL IV (19:21)
[2025-05-22] MEDS: ALBUTEROL/IPRATROPIUM (Duoneb) RT SOL 3 ML NEBU INH (20:28)
--- NOTE | 2025-05-22 22:46 | RESP.EEG ---
Extended EEG started 05/22/25 @ 1930. COREY Lawson is aware and we will continue to monitor Pt.
--- NOTE | 2025-05-22 23:14 | PD.NEUROPROG ---
Documentation for date of: 05/22/25 Subjective Subjective Interval history: Patient was seen in ICU today at the bedside. Continued to remain intubated and on mechanical ventilatory support on sedation. No clinical seizures reported overnight. Exam - Neurology Vital Signs Temp Pulse Resp BP Pulse Ox O2 Del Method O2 Flow Rate 97.2 F 121 H 25 H 145/70 H 100 Mechanical Ventilation 35 05/22/25 20:00 05/22/25 23:00 05/22/25 20:28 05/22/25 23:00 05/22/25 23:00 05/22/25 20:00 05/16/25 12:00 FiO2 30 05/22/25 22:35 Narrative Exam GENERAL APPEARANCE: Developmentally delayed male , intubated and on mechanical ventilatory support HEENT: Normocephalic, atraumatic, Pupils: Equal reacting to light NECK: Supple, no JVD or bruits. CARDIOVASULAR: Heart: S1, S2 heard, regular without S3-S4 or murmur no rubs or gallops. LUNGS/CHEST: Breath sounds heard equally bilaterally, bilateral Rales and rhonchi heard. ABDOMEN: Soft, nontender, with normal bowel sounds. No pulsatile masses. No rebound, rigidity, or guarding. Normal inspection and palpation. EXTREMITIES: Normal inspection and palpation. No edema, clubbing or cyanosis. SKIN: Warm and dry without rashes. Normal inspection. NEURO: Limited from sedation, brainstem function: Intact, moves all extremities. PSYCHIATRIC: Limited Objective Labs 05/22/25 04:55 05/22/25 17:47 Labs: Laboratory Results - last 24 hr 05/21/25 05/22/25 05/22/25 00:00 04:50 04:55 WBC 10.8 H RBC 3.05 L Hgb 8.6 L Hct 26.7 L MCV 88 MCH 28.2 MCHC 32.2 RDW Std Deviation 47.8 H Plt Count 776 H D Neut % (Auto) 53 Lymph % (Auto) 23 Kimball % (Auto) 16 H Eos % (Auto) 6 Baso % (Auto) 1 Neut # (Auto) 5.7 Lymph # (Auto) 2.5 Kimball # (Auto) 1.7 H Eos # (Auto) 0.7 H Baso # (Auto) 0.1 Immature Gran # (Auto) 0.10 H Absolute Nucleated RBC 0.00 Immature Gran % 1 H Nucleated RBC % 0 Sodium 138 Potassium 4.3 D Chloride 102 Carbon Dioxide 26.4 Anion Gap 10 BUN 18 Creatinine 0.6 Estim Creat Clear Calc 162.9 eGFR > 60 BUN/Creatinine Ratio 30 H Glucose 108 H Calculated Osmolality 278 Calcium 8.9 Corrected Calcium 9.1 Phosphorus 4.9 Magnesium 1.9 Iron 24 L TIBC 226 L Iron Saturation 10 L Unsat Iron Binding 202 L Total Bilirubin 0.2 L AST 92 H ALT 118 H Alkaline Phosphatase 108 Total Protein 6.6 Albumin 3.8 Globulin 2.8 Albumin/Globulin Ratio 1.4 Chlam trachomat DNA PCR Negative N.gonorrhoeae DNA (PCR) Negative Trichomonas DNA Probe Negative 05/22/25 17:47 WBC RBC Hgb Hct MCV MCH MCHC RDW Std Deviation Plt Count Neut % (Auto) Lymph % (Auto) Kimball % (Auto) Eos % (Auto) Baso % (Auto) Neut # (Auto) Lymph # (Auto) Kimball # (Auto) Eos # (Auto) Baso # (Auto) Immature Gran # (Auto) Absolute Nucleated RBC Immature Gran % Nucleated RBC % Sodium 135 L Potassium 5.2 H D Chloride 100 Carbon Dioxide 25.1 Anion Gap 10 BUN 20 Creatinine 0.6 Estim Creat Clear Calc 156.5 eGFR > 60 BUN/Creatinine Ratio 33 H Glucose 111 H Calculated Osmolality 273 L Calcium 9.3 Corrected Calcium Phosphorus 6.1 H Magnesium 2.3 Iron TIBC Iron Saturation Unsat Iron Binding Total Bilirubin AST ALT Alkaline Phosphatase Total Protein Albumin Globulin Albumin/Globulin Ratio Chlam trachomat DNA PCR N.gonorrhoeae DNA (PCR) Trichomonas DNA Probe ABG Interpretation ABG results: 05/09/25 05/09/25 05/09/25 11:56 13:40 18:50 ABG pH 7.40 7.27 L D 7.28 L ABG pCO2 40 43 55 H D ABG pO2 131 H 53 L* D 70 L ABG HCO3 25 20 26 ABG O2 Saturation 99 H 81 L 92 ABG Base Excess 0 -7 L -2 05/10/25 05/11/25 05/12/25 00:14 05:06 01:18 ABG pH 7.35 7.33 L 7.39 ABG pCO2 42 D 54 H D 48 ABG pO2 103 D 93 94 ABG HCO3 23 28 H 29 H ABG O2 Saturation 99 H 98 98 ABG Base Excess -3 2 3 05/12/25 05/12/25 05/13/25 03:58 11:50 05:10 ABG pH 7.46 H 7.39 7.19 L* D ABG pCO2 41 48 60 H D ABG pO2 105 58 L* D 114 H D ABG HCO3 29 H 29 H 23 ABG O2 Saturation 99 H 90 L 98 ABG Base Excess 5 H 4 H -6 L 05/17/25 05/18/25 05/19/25 01:30 04:09 04:43 ABG pH 7.38 7.43 7.47 H ABG pCO2 46 44 43 ABG pO2 90 83 80 L ABG HCO3 27 H 29 H 31 H ABG O2 Saturation 98 97 97 ABG Base Excess 2 5 H 7 H 05/21/25 05/21/25 04:18 06:33 ABG pH 7.37 D 7.46 H ABG pCO2 50 H 38 D ABG pO2 40 L* D 121 H D ABG HCO3 29 H 27 H ABG O2 Saturation 66 L 100 H ABG Base Excess 3 3 Assessment & Plan Additional Assessment & Plan Additional Plan: David Baltazar is 24 yr male with PMH of chronic mastoiditis (previously had tympanostomy tube placed for recurrent otitis media, now removed), seizure disorder, recurrent pneumonia, cerebral palsy, chronic PEG tube, and asthma who was brought into ED on 05/08/25 for ongoing fever of over 24 hours and reported episode of witnessed seizure by ED. Patient was septic. Neurology was consulted to for LP to rule out meningitis. #Mastoiditis #rule out Meningitis #Tonic clonic seizure #Hx seizures #Cerebral palsy LP culture was negative: clear, WBC 3, glucose 70, total protein 25. CSF Streptococcus pneumonia Ag negative , Streptococcus B antigen negative. CSF Neisseria meningitis B/E.coli K1 negative, Neisseria meningitis ACY/W135 Ag negative. CSF haemophilus influenzae B Ag negative. MRSA screen negative. Sputum culture thurman resistant Pseudomonas -continue IV Keppra and Depakote -seizure precautions -midazolam for breakthrough seizure -Consider trying Glycopyrrolate for secretions if needed. Follow-up with repeat EEG to look for the sz actitvity from tonight #Paraphimosis #Acute Kidney Injury ##Lactic acidosis #Elevated total creatine kinase from his hyperkinetic movements #Normocytic Anemia Primary care team to manage above conditions and ongoing care needs.
[2025-05-23] VITALS (46 sets, daily range): BP systolic 95–148; BP diastolic 46–87; PULSE 86–157; RESP 15–35; TEMP 36.8–38.6; O2SAT 93–100; BMI 30.6
--- NOTE | 2025-05-23 | XR_ITS ---
Examination: MRI brain without intravenous contrast. Date and time of exam: May 23, 2025, 2023 hours INDICATIONS: Seizure episode May 08, 2025 Technique: Multiple axial and sagittal images of the brain obtained. Siemens high-resolution 1.5 Aparna short bore scanners utilized. Sagittal sections, T1-weighted, TR 500, TE 14, are performed. Axial sections proton-density and T2-weighted have been obtained. Inversion recovery axial images, TR 9, 260, TE 111, TI 2500. Diffusion weighted images, axial sections, TR 4800, TE 128, B value 1000 Axial sections, ADC map, TR 4800, TE 128 Findings: Enlargement of the sella turcica is not present. The optic chiasm and infundibular are not remarkable. Prepontine and interpeduncular cisterns are not enlarged. There is no localized enlargement of the medulla or gaye. Fourth ventricle and cerebellar tonsils appear normal in position. No subacute area of hemorrhage density is seen. Mass in the cerebellopontine angle region is not evident. Globes symmetrical. Orbital musculature including medial lateral rectus muscles do not exhibit abnormality. Diffusion-weighted images demonstrate no focus of restricted diffusion. Increased white matter signal not seen Mass effect upon the ventricular system is not identified. Impression: Negative for acute hemorrhage mass effect or midline shift No acute infarct No MR findings diagnostic for demyelinating disease Severe chronic appendicitis situs
[2025-05-23] MEDS: MIDAZOLAM INJ 1 MG/ML VIAL 2 ML 4 MG IVP ×5 (01:27→12:06)
[2025-05-23] MEDS: PHENobarbital INJ 130 MG/1 ML VIAL IVP (05:21)
[2025-05-23] MEDS: HEPARIN SOD INJ 5000 UNIT/ML VIAL SC (05:25)
[2025-05-23] MEDS: PROPOFOL 1,000 MG IVPB 1,000 MG/100 ML VIAL 16.824 MG IV ×2 (05:29→23:35)
[2025-05-23 06:07] LABS: Basophils # (Auto) 0.1 Thou/mm3 (0.0-0.2); Basophils % (Auto) 1 % (0-2.5); Eosinophils # (Auto) 0.6 Thou/mm3 (0.0-0.5); Eosinophils % (Auto) 8 % (0-10); Hematocrit 27.7 % (41.0-53.0); Hemoglobin 8.9 g/dL (13.5-16.0); Immature Granulocytes Auto 0.06 Thou/mm3 (0.00-0.00); Lymphocytes # (Auto) 2.3 Thou/mm3 (1.0-4.8); Lymphocytes % (Auto) 28 % (10-50); Mean Corpuscular HGB Conc 32.1 g/dl (31.0-37.0); Mean Corpuscular Hemoglobin 28.2 pg (25.0-35.0); Mean Corpuscular Volume 88 fL (80-100); Monocytes # (Auto) 1.2 Thou/mm3 (0.0-0.8); Monocytes % (Auto) 15 % (0-12); Neutrophils # (Auto) 3.8 Thou/mm3 (1.8-7.7); Neutrophils % (Auto) 47 % (37-80); Nucleated Red Blood Cell # 0.02 Thou/mm3 (0.00-0.00); Nucleated Red Blood Cell % 0 /100 WBC (0); Platelet Count 752 Thou/mm3 (140-440); RDW Standard Deviation 46.9 fL (35.1-43.9); Red Blood Count 3.16 Miln/mm3 (4.50-5.90); White Blood Count 8.1 Thou/mm3 (3.8-10.6)
[2025-05-23 06:29] LABS: Alanine Aminotransferase 78 U/L (10-49); Albumin, Serum 3.7 gm/dL (3.5-5.0); Albumin/Globulin Ratio 1.3 (1.2-2.2); Alkaline Phosphatase 105 U/L (46-116); Anion Gap 11 (7-16); Aspartate Amino Transferase 47 U/L (0-34); BUN/Creatinine Ratio 28 Ratio (12-20); Bilirubin,Total 0.2 mg/dL (0.3-1.2); Blood Urea Nitrogen 17 mg/dL (9-23); Calcium 9.3 mg/dL (8.3-10.6); Calcium (Corrected) 9.5 mg/dL (8.5-10.1); Carbon Dioxide 25.8 mMol/L (20.0-31.0); Chloride 102 mMol/L (98-107); Creatinine (Component) 0.6 mg/dL (0.6-1.3); Estimated Creatinine Clearance 152.9 mL/min (>60); Globulin 2.9 gm/dL (2.3-3.5); Glucose 105 mg/dL (74-106); Magnesium 1.7 mg/dL (1.6-2.6); Osmolality,Calculated 279 (275-295); Phosphorous 5.5 mg/dL (2.4-5.1); Potassium 4.5 mMol/L (3.4-5.1); Sodium 139 mMol/L (136-145); Total Protein 6.6 gm/dL (5.7-8.2); Triglycerides 385 mg/dL (30-150); eGFR > 60 See Note
[2025-05-23] MEDS: PHENobarbital Inj 130 MG, SODIUM CHLORIDE 0.9% FLUSH 12 ML IVP (08:55)
--- NOTE | 2025-05-23 09:47 | ESPR_ITS ---
Subjective Subjective Interval history: fever persists but cx remain neg other than viral panel . hiv neg. can not find hep c result though, so will repeat that test Exam Vital Signs Temp Pulse Resp BP Pulse Ox O2 Del Method O2 Flow Rate 101.1 F H 135 H 34 H 118/54 L 100 Mechanical Ventilation 35 05/23/25 05:00 05/23/25 06:24 05/23/25 06:24 05/23/25 06:24 05/23/25 06:24 05/23/25 04:00 05/16/25 12:00 FiO2 30 05/23/25 06:24 Objective - Internal Medicine Labs 05/23/25 05:00 05/23/25 05:00 Labs: Laboratory Results - last 24 hr 05/21/25 05/22/25 05/23/25 00:00 17:47 05:00 WBC 8.1 RBC 3.16 L Hgb 8.9 L Hct 27.7 L MCV 88 MCH 28.2 MCHC 32.1 RDW Std Deviation 46.9 H Plt Count 752 H Neut % (Auto) 47 Lymph % (Auto) 28 [place] % (Auto) 15 H Eos % (Auto) 8 Baso % (Auto) 1 Neut # (Auto) 3.8 Lymph # (Auto) 2.3 [place] # (Auto) 1.2 H Eos # (Auto) 0.6 H Baso # (Auto) 0.1 Immature Gran # (Auto) 0.06 H Absolute Nucleated RBC 0.02 H Immature Gran % 1 H Nucleated RBC % 0 Sodium 135 L 139 Potassium 5.2 H D 4.5 D Chloride 100 102 Carbon Dioxide 25.1 25.8 Anion Gap 10 11 BUN 20 17 Creatinine 0.6 0.6 Estim Creat Clear Calc 156.5 152.9 eGFR > 60 > 60 BUN/Creatinine Ratio 33 H 28 H Glucose 111 H 105 Calculated Osmolality 273 L 279 Calcium 9.3 9.3 Corrected Calcium 9.5 Phosphorus 6.1 H 5.5 H Magnesium 2.3 1.7 Total Bilirubin 0.2 L AST 47 H ALT 78 H Alkaline Phosphatase 105 Total Protein 6.6 Albumin 3.7 Globulin 2.9 Albumin/Globulin Ratio 1.3 Triglycerides 385 H Chlam trachomat DNA PCR Negative N.gonorrhoeae DNA (PCR) Negative Trichomonas DNA Probe Negative ABG Interpretation ABG results: 05/09/25 05/09/2525 11:56 13:40 18:50 ABG pH 7.40 7.27 L D 7.28 L ABG pCO2 40 43 55 H D ABG pO2 131 H 53 L* D 70 L ABG HCO3 25 20 26 ABG O2 Saturation 99 H 81 L 92 ABG Base Excess 0 -7 L -2 05/10/25 05/11/25 05/12/25 00:14 05:06 01:18 ABG pH 7.35 7.33 L 7.39 ABG pCO2 42 D 54 H D 48 ABG pO2 103 D 93 94 ABG HCO3 23 28 H 29 H ABG O2 Saturation 99 H 98 98 ABG Base Excess -3 2 3 05/12/25 05/12/25 05/13/25 03:58 11:50 05:10 ABG pH 7.46 H 7.39 7.19 L* D ABG pCO2 41 48 60 H D ABG pO2 105 58 L* D 114 H D ABG HCO3 29 H 29 H 23 ABG O2 Saturation 99 H 90 L 98 ABG Base Excess 5 H 4 H -6 L 05/17/25 05/18/25 05/19/25 01:30 04:09 04:43 ABG pH 7.38 7.43 7.47 H ABG pCO2 46 44 43 ABG pO2 90 83 80 L ABG HCO3 27 H 29 H 31 H ABG O2 Saturation 98 97 97 ABG Base Excess 2 5 H 7 H 05/21/25 05/21/25 04:18 06:33 ABG pH 7.37 D 7.46 H ABG pCO2 50 H 38 D ABG pO2 40 L* D 121 H D ABG HCO3 29 H 27 H ABG O2 Saturation 66 L 100 H ABG Base Excess 3 3 Assessment & Plan A&P Narrative viral findings on pcr testing at [facility] resp failure it is common that abx are given in this setting. but it is ok to stop them too. drug fever can be expected to last a few days if that is your working dx. I am ok with him off abx entirely.procal has mostly been neg for a long time Time Spent With Patient Time: Total time spent is greater than 50% in coordination of care (as documented) at patient's floor/unit and/or counseling patient:
--- NOTE | 2025-05-23 09:50 | PC.CC ---
0857: Maura called and she stated Dr. Baeza has put the transfer on hold for now. 0823: spoke to charge nurse Maura for status update on EEG. She stated that 24 hour cont EEG will complete within the next hour or 2. She will let me know when it is complete so I can send results when available to [facility] to review.
[2025-05-23] MEDS: levETIRAcetam INJ 100 MG/ML VIAL 5ML 1000 MG IV ×2 (09:56→21:30)
[2025-05-23] MEDS: CALCIUM CARBONATE 600 MG TABLET GT (09:56)
[2025-05-23] MEDS: SEVELAMER CARBONATE 800 MG TABLET GT ×3 (09:57→17:25)
[2025-05-23] MEDS: OFLOXACIN OP SOL 0.3% 5 ML BTL 5 DROP BOTH EARS ×2 (09:58→21:30)
--- NOTE | 2025-05-23 11:00 | RESP.EEG ---
eeg completed and ready for review
--- NOTE | 2025-05-23 11:38 | PD.RESEVENT ---
Documentation for date of: Update Discussion with Family Time: 11:07 AM police detective: [email or web address] [id number]. Attendees: Dr. Baeza (attending), Dr. Baer (senior resident), Patient?s Mother. Information relayed to patient's mother: Dr. Baeza consulted with Dr. Chavira at [facility] regarding the potential transfer of the patient for 24/7 continuous EEG monitoring, as the patient exhibits severe agitation and hypersympathetic activity when attempting to wean off sedation. While [facility] is equipped to perform continuous EEG monitoring, it is limited to a 24-hour duration. [facility] requested that the patient undergo continuous EEG monitoring and will agree for transfer if seizures are observed. An EEG was initiated at 7:30 PM on 05/22. On the morning of 05/23, after reviewing the results with Dr. Lang (neurologist), it was confirmed that no seizure activity was detected. In light of the absence of seizures, transfer to [facility] is not deemed necessary, as there is no additional intervention [facility] can provide. Dr. Lang recommended getting an MRI of the brain. Plan for MRI and update parents when results are available. Patient's mom was given the opportunity to ask any additional questions or express concerns. All questions were answered and patient's mother verbally acknowledged understanding of the information provided. Disclaimer: This note was dictated by speech recognition. Minor errors in correctional security officer may be present due to voice recognition software. - Diaz Coppola DO, PGY-1
[2025-05-23] MEDS: ENOXAPARIN SOD INJ 40 MG/0.4 ML SYRINGE SC (12:20)
[2025-05-23 12:58] LABS: Hepatitis C Antibody Non Reactive (Non React)
[2025-05-23] MEDS: PROPOFOL 1,000 MG IVPB 1,000 MG/100 ML VIAL 18.927 MG IV ×2 (13:40→19:01)
--- NOTE | 2025-05-23 15:16 | ESPR_ITS ---
<Statement entered by Jeanine Baeza MD - 05/24/25 10:38> TOTAL TIME: 45MINUTES ON DIRECT MEDICAL CARE, MANAGEMENT - COORDINATION AND COUNSELING > 50% OF TOTAL TIME I saw and evaluated the patient. I reviewed the resident?s note and agree with findings and plan as documented in the resident?s note. Phenobarbital was restarted and Klonopin was increased to 2 mg twice daily. Restarted on propofol. Discussed EEG with Dr. Valdez; no obvious seizures identified. MRI brain was ordered. Repeat cultures remain unrevealing. Will update family once updated results are reviewed Continue full supportive care continue antibiotics. Given Patient is not in status, we have canceled the transfer request to [facility] <Statement entered by Ronnell Orozco MD - 05/23/25 16:38> Patient was seen and examined at bedside in ICU. Overnight, patient had spiking fever 101.1. Patient was also fine agitated and breathing over the ventilator therefore Versed pushes were given.Labs showed white count downtrending, hemoglobin stable and platelet count likely reactive. Chemistry panel showed sodium 139, potassium 4.5. Blood glucose 105. Triglycerides 385. Continuous EEG monitoring did not show seizure-like activity per neurology. However due to agitation it was recommended to follow-up with an MRI brain without contrast. Phenobarb was increased to 260 mg Q6 hourly, sedation was increased. Clonazepam was also increased to 2 mg twice daily. Will continue with Keppra and Depakote. DVT prophylaxis was changed from heparin to Lovenox. Patient had a UO of 2 L with intake of 900. Hawkins catheter was taken out and strict RADHA's with bladder scan every 4 hourly was recommended. Bladder scans will be continued every 4 hourly and if urinary retention more than 400 cc recommended to straight cath in and out. Will follow-up with MRI findings and update the family. I discussed and supervised with the property management intern physician who took care of this patient. I personally saw and examined the patient. I agree with most of the assessment and plan. Disclaimer: Despite multiple revisions, due to the dictation software being used, the document bellow may not be free of grammatical errors including phonetic/typographic errors. However, this does not deter from our commitment to providing health care in the patient's best interest in mind. Plan of care discussed with attending Physician Dr. Felisha Orozco MD PGY-3 Documentation for date of: 05/23/25 Subjective Subjective Interval history: 05/23/2025: A continuous EEG was placed at approximately 7:30 PM on 05/22. Overnight, the patient experienced two fever spikes, with a peak temperature of 101.1?F. Patient remained on Propofol 40 mcg/kg/min and Fentanyl 100 mcg/hr. Two doses of Versed were administered for agitation. Patient continues to have increased secretions. Patient had premature ventricular contractions the night before. Repeat labs showed potassium at 5.2, magnesium at 1.9, and phosphorous at 5.5 . Calcium gluconate, breathing treatment, 4 gram of magesium and sevelamer was given. EKG showed sinus tachycardia with QTc 426. Patient also developed acute urine retention, with a bladder scan showing 700 cc. A Hawkins catheter was inserted due to leakage from the previous catheter and noted post-void retention. Patient had approximately 2000 cc of urine output overnight. Since patient's output is more than his input, tube feed water flushes were increased from 45 to 55 cc. Patient had one bowel movement this morning. Hawkins was removed this morning, and straight cath in and out will continue if the patient continues to experience urinary retention. EEG was reviewed by Dr. Lang, who confirmed that there were no signs of status epilepticus or seizures. Plan to do MRI of the brain next. Increased phenobarbital and clonazepam doses. Will work on weaning down propofol as patient's triglycerides are 385. Heparin was switched to Lovenox. 05/22/2025: Overnight, the patient developed fever spikes, with the highest reaching 101?F. Cooling measures were ineffective, and Ibuprofen was administered. In response to the patient's condition, fentanyl was increased from 100 mcg to 150 mcg, and propofol was increased from 35 mcg to 40 mcg. Urine output over the past 12 hours was 1100 cc. Given the recurrence of fevers and signs of hypersympathetic activity, the phenobarbital dosage was increased to 130 mg every 6 hours, up from every 8 hours. C. diff PCR testing is pending for loose stools. The patient has been receiving Versed every 5 minutes for seizure- like activity until it resolves. The ICU team held an extensive discussion with the patient?s parents regarding the next steps, which include transferring the patient to a facility capable of continuous EEG monitoring while weaning off sedation, as the patient continues to experience persistent seizures. Last day of meropenem to complete 10 day course. 05/21/2025: Overnight, patient developed two fever spikes, with a maximum temperature of 102.6?F. Fevers were managed with Tylenol and cooling measures. Hawkins catheter was removed and replaced with a QiVi external catheter, with urine output of 1,650 cc over the past 12 hours. Propofol was increased from 30 to 35 mcg/kg/min due to agitation and the patient breathing over the ventilator, while fentanyl maintained at 150 mcg/hr. No bowel movement was reported overnight. Neurology agreed with gradual weaning of sedation as tolerated. EEG is scheduled for Friday, 05/23, and daily EEG monitoring is not required. Ear culture returned with Brittney, likely from normal hamilton from the ear swab. Ears were examed with otoscope. Right ear unremarkable. Left ear canal with clear liquid, like from ofloxacin ear drops. Reduced phenobarbital to 130 mg every 8 hours and clonazepam to 1mg BID. Versed 2 mg IV is available as needed for agitation. Continue meropenem. Fungal culture of ear culture grew Brittney, likely representing normal hamilton from the ear swab. Patient exhibited green penile discharge following hawkins removal. A chlamydia and gonorrhea test was ordered. Right arm is warm and tense to touch from IV infiltration, IV was removed and placed in distal part of the right forearm. 05/20/2025: Overnight, patient had a fever spike of 101.2F. Patient remained on Propofol 40 and Fentanyl 150 for sedation. Precedex was not needed for agitation. Urine output was 2800 cc in the past hours with no gross hematuria. No bowel movement. Patient?s phenobarbital dose was adjusted to 260 mg every 8 hours. Keppra dose was increased to 1000 mg twice daily as per the neurologist?s recommendation. An EEG revealed electrographic seizure activity. A repeat sputum culture was obtained due to contamination of the previous sample. Additionally, a gradual wean of propofol and fentanyl was initiated as tolerated. 05/19/2025: Overnight, patient had a fever spike of 102.2?F. Due to agitation, the Versed infusion was increased from 4 mg/gtt to 8mg/gtt. Patient was also receiving Propofol 30 and Fentanyl 150. Patient had one bowel movement and produced 1L of urine over the past 12 hours, with no evidence of gross hematuria. Versed 4 mg gtt was titrated up to 8mg gtt for patient's agitation. Patient was on Propofol 30 and Fentanyl 150. Patient had one bowel movement. Urine output was 1L in the past 12 hours with no gross hematuria. This morning, clonazepam 2 mg PO TID was initiated, Propofol infusion was increased to 50 mcg/kg/min, and fentanyl was maintained at 50 mcg/hr. The versed infusion was discontinued, and Meropenem was restarted to treat Pseudomonas pneumonia, since the patient continued to spike fevers despite discontinuation of the medication. Sputum culture and EEG will be repeated. Heparin was restarted for DVT PPX. 05/18/2025: Overnight, patient remained on Propofol 30 and Fentanyl 300, with Versed 2mg dose x1. Magnesium was given for bronchodilation. Ibuprofen given for fever. Plan was to wean off sedation and extubate the patient today, but due to significant oral secretions and concerns about potential aspiration and the patient's inability to protect the airway, the decision was made to keep the patient intubated for now. A spontaneous breathing trial was attempted, and the patient?s lungs are functioning well. However, given the ongoing agitation, sedation could not be reduced. Phenobarbital dose was increased from 130mg to 260mg every 6 hours, and a 4mg Versed drip was started. Olanzapine was discontinued, and both doxycycline and meropenem were stopped due to concerns of a potential drug reaction, as fever spikes worsened after the initiation of meropenem on 05/12. Heparin was restarted yesterday for a DVT in the left brachial vein but was discontinued this morning due to ongoing hematuria without clots. A follow-up Doppler will be performed in 2-3 days to assess whether the DVT has resolved. Patient?s urine output was 2240cc over the past 12 hours. Maintenance fluids were started at 100ml/hr to manage the increased urine output. ICU team spoke with the patient's mother today, providing updates on the changes in the medication regimen and the patient's current status. Informed her that this is Day 9 of intubation, and there are four more days to attempt extubation before considering a tracheostomy. TSH, EBV, and CMV panels were ordered for further evaluation. 05/17/2025: Overnight,patient was placed on droplet precautions due to positive rhinovirus and human metapneumovirus. Patient received a 4 mg dose of Versed for agitation. Heparin drip was initiated for an upper extremity DVT but was paused at 12:15 AM due to hematuria without clots. Urine output was approximately 170 cc/hr, and the patient had two bowel movements since yesterday. Today, the patient underwent bronchoscopy and tolerated the procedure well, with stable gas exchange observed. To facilitate weaning off fentanyl and propofol, the patient was started on phenobarbital 13 mg and oxycodone 10 mg scheduled TID. Will consider adding Precedex to further support the weaning process and work towards extubation tomorrow. Heparin drip for the DVT has been restarted as the hematuria is improving. Additionally, 1L of IV LR was administered to address hyperkalemia and hyperphosphatemia on AM labs. Plan is to remove the Hawkins catheter tomorrow, 05/18. 05/16/2025: Overnight, patient experienced intermittent spasmodic jerking episodes, lasting about 15-20 minutes at a time. During these episodes, the patient becomes tachycardic and febrile. Baclofen 10mg was administered, followed by a single dose of midazolam 2mg IV for agitation. Patient remains on fentanyl 100 mcg/hr and propofol 50 mcg/kg/min for sedation. Patient spiked a fever of 102.6?F, for which IV tylenol was given. A subsequent temperature of 102.4?F was treated with ibuprofen. The Hawkins catheter was replaced overnight. Urine output over the past 12 hours was approximately 850 mL. Patient has not had a bowel movement since 05/13, will add miralax. Due to persistent fevers, doxycycline 100 mg IV BID was initiated for gram-positive cocci coverage. Blood cultures will be repeated, and a right upper quadrant ultrasound has been ordered to evaluate for potential hepatobiliary source of infection. Liver enzymes are improved from yesterday. Planned Interventions: Initiate phenobarbital 130 mg IV every 6 hours and begin weaning off propofol. Increased olanzapine from 5 mg GT QHS to 5 mg TID. Perform bilateral upper extremity ultrasound to assess for DVT. Repeat UA, CXR, CT head and abd/pelvis. Check lipase levels. 05/15/2025: Overnight, the patient developed a fever of 101.8?F. PO acetaminophen was switched to IV formulation by the night team. Temperature improved to 99.5?F by morning. Urine output over the past 12 hours was approximately 620 cc. Liver enzymes continue to trend upward, will hold acetaminophen for now. Patient was weaned off midazolam infusion today. Plan is to begin tapering propofol next. Antipsychotic regimen was adjusted from quetiapine to olanzapine to minimize risk of QTc prolongation. Repeat chest X- ray showed improvement in bilateral pneumonia. Bronchoscopy was performed yesterday (05/14). Repeat procedure is being considered for 05/16. Increase in WBCs and fever likely from bronchoscopy. 05/14/2025: No acute events overnight. Stable on versed/ fentanyl and propofol. No vasopressor requirements. Patient underwent bronchoscopy, well tolerated. Gas exchange stable. PPeak remains in mid20s. Patient on minimal FiO2 and PEEP now. Good ventilator synchrony. Continues to have heavy drooling and output form upper airway. Minimal from ETT now. 05/13/2025: Patient increased FiO2 overnight to 100%. Difficulty managing secretions. Bleeding from nose and plugging. Agitated with maximal dose of precedex and benadryl pushes. Patient with low grade temp to 100.4F. Mild secretions from ETT, pink/ frothy. 05/12/2025: Patient weaned down on sedation. Tmax 102 degrees at 1600 hrs. 05/11. Patient developed mild hepatitis, likely response to medications, will monitor. Patient successfully weaned off of propofol and fentanyl, Precedex initiated. Patient extubated, placed on high flow. Continues to have high secretions, treated with chest PT, oral suctioning as needed, ipratropium breathing treatments scheduled. Patient notably agitated, treating with Benadryl as needed and Precedex drip. Will continue to try and decrease sedation while maintaining patent airway. Sputum culture grew thurman resistant Pseudomonas, meropenem initiated. Will continue Levaquin for now pending cultures. Ear cultures taken. Patient maintaining good urine output, will replete volume if patient exceeds greater than 2 L output. 05/11/2025: Overnight, the patient became increasingly agitated and was observed biting on the endotracheal tube. In response, propofol was increased from 40 mcg/kg/min to 45 mcg/kg/min, and fentanyl was increased from 200 mcg/hr to 250 mcg/hr. The plan is to attempt weaning the patient off sedation today, and work towards extubation. A lumbar puncture was performed, which showed 3 WBCs. Infection from meningitis is less likely, but culture results are pending for confirmation. Today, the patient has been experiencing a low-grade fever, with the highest recorded temperature being 100.4?F. After the Hawkins catheter was placed, the patient had 1700 cc of urine output over the past 12 hours. Followed up with Dr. Jacky Cuadra (ENT in [place]). Dr. Cuadra stated that there is nothing additional he could identify on the CT imaging that the radiologist has not already seen. And that if there was something it would likely be surgical and he does not perform surgeries. He recommended covering for Pseudomonas with clindamycin and Unasyn. The plan is to start levofloxacin for Pseudomonas coverage as well. Additionally, Dr. Cuadra suggested culturing the ear. 05/10/2025: Patient remained sedated with propofol and fentanyl throughout the night, maintaining adequate sedation levels. Around 2 AM, the propofol dose was reduced due to MAP in the 60s. 1L of LR was administered on top of the ongoing IV maintenance fluids at 100cc/hr. Following this, the MAP remained stable above 65. At 6:50 PM on 05/09, an ABG revealed a pH of 7.28, pCO2 of 55, and pO2 of 70, indicative of respiratory acidosis. Patient was given 5 grams of magnesium and 15 mg of albuterol over the course of an hour to promote bronchodilation. Magnesium also needed to be repleted. A repeat ABG showed normalization of the respiratory parameters. Patient's Hawkins catheter was removed and replaced with a QiVi catheter overnight per the patient's father?s request. However, the patient developed urinary retention. A bladder scan performed at 6 AM showed 295cc of retained urine, and a subsequent scan in the afternoon revealed 439cc. Primary team consulted ICU team. On 05/09, two rapid responses were initiated due to the patient?s escalating agitation and anxiety. Patient appeared to be in significant pain from his paraphimosis. The primary team consulted the ICU for further management, as the patient had already received diazepam, haldol, versed, and dilaudid earlier that morning, with inadequate relief. Additionally, there was concern over a decline in his pO2 levels. The initial ABG at 11:56 showed: pH 7.40, pCO2 40, pO2 131, HCO3 25. A repeat ABG at 13:40 revealed: pH 7.27, pCO2 43, pO2 53, HCO3 20. Upon evaluation by the ICU team, the patient was noted to be extremely agitated and wearing an oxygen mask, with audible gurgling sounds coming from the upper airway, raising concern for potential airway compromise. Given the risk of inadequate airway protection, the decision was made to transfer the patient to the ICU for intubation and further management. In the ICU, the patient was intubated. Urology, Dr. Vargas, was consulted earlier in the day. He was able to successfully perform a reduction of the paraphimosis. Telemetry Course: Patient was admitted to telemetry for further workup and management of sepsis of unknown source, with concern for meningitis. Empiric broad-spectrum antibiotic and antiviral therapy were started, consisting of ceftriaxone 2g IV twice daily, vancomycin (pharmacy to dose), ampicillin, and acyclovir. Neurology was consulted. CT of the orbit, sella, and inner ear was ordered given the patient?s history of acute mastoiditis, which showed severe bilateral chronic mastoiditis, bilateral otitis externa, bilateral otitis media, and bilateral cholesteatomas in the attics. CT head was also performed and was negative for acute hemorrhage, mass effect, or midline shift. Findings included prominent sphenoid, ethmoid, and maxillary antral sinusitis, bilateral chronic mastoiditis, bilateral otitis media, and opacification in the bilateral attics. For the patient?s seizures, his home medications of valproic acid and levetiracetam were restarted. Orders for midazolam and Haldol were placed as needed for breakthrough seizures and agitation. An ice pack was ordered for his paraphimosis. Infectious disease was also consulted. History of Present Illness: 24-year-old male with a past medical history significant for cerebral palsy, asthma, seizure disorder, chronic mastoiditis (previously treated with tympanostomy tube placement for recurrent otitis media, now removed), recurrent pneumonia, and chronic PEG tube dependence, presented to the ED on 05/08/2025 with a fever lasting over 24 hours. The patient also had a witnessed seizure episode lasting 5-10 seconds, characterized by tonic-clonic activity confined to the left side of the body. ED Course: -Initial vitals were: BP 122/84, HR 176, RR 26, T 105F, O2 sat 96% on room air. -Labs significant for: CBC showed a WBC of 16.3. CMP showed Na 148, K 5.2, Cl 107, bicarbonate 18.7, anion gap 22, creatinine 1.3 (baseline 0.7), lactic acid 3.2, alkaline phosphatase 120, LDH 352, total CK 1048, procalcitonin: 0.14. Urinalysis negative. Influenza A/B testing was negative. -Imaging included: EKG showed supraventricular tachycardia of HR [address] and T-wave abnormality. CXR showed no aspiration pneumonia but was noted to be of poor inspiratory effort. CT CAP w/o contrast seemed to show no gross infiltrates or other notable findings but was noted to be severely degraded by patient motion. -In the ED, patient was given acetaminophen 975 mg, ceftriaxone 1 gram IV, midazolam 2 mg IV x1, albuterol 2.5 mg, Zosyn 3.375 gram, 2 L NS fluid infusion, and 1 L LR fluid infusion. In the ED, the patient was agitated and pulled out his IV. Attempts at peripheral access were unsuccessful, and a right femoral central line was placed. Exam Vital Signs Temp Pulse Resp BP Pulse Ox O2 Del Method O2 Flow Rate 99.9 F 97 34 H 97/50 L 100 Mechanical Ventilation 35 05/23/25 12:00 05/23/25 14:30 05/23/25 07:00 05/23/25 14:30 05/23/25 14:30 05/23/25 04:00 05/16/25 12:00 FiO2 30 05/23/25 14:30 Narrative Exam Physical Exam General: sedated and intubated, nonverbal at baseline, not in acute distress. RASS score -3 (no response to voice, but movement to noxious stimuli). Head: Normocephalic, atraumatic. Eyes: PERRL. Anicteric. Bilateral lateral eye scleral hemorrhage. Mouth/Throat: Poor dentition. Oral mucosa moist with excessive secretions. ETT in place. Cardiovascular: Regular rate and rhythm, no murmur. Respiratory: Rhonchi to auscultation in bilateral lung thompson. Gastrointestinal: PEG tube in place, site is clean, dry and intact. Soft, no guarding or rebound tenderness. Extremities: Contracted and swollen hands. No LE edema, cyanosis, mottling, clubbing. 2+ radial pulse bilaterally, 2+ posterior tibial pulse bilaterally. Objective Labs 05/23/25 05:00 05/23/25 05:00 Labs: Laboratory Results - last 24 hr 05/22/25 05/23/25 17:47 05:00 WBC 8.1 RBC 3.16 L Hgb 8.9 L Hct 27.7 L MCV 88 MCH 28.2 MCHC 32.1 RDW Std Deviation 46.9 H Plt Count 752 H Neut % (Auto) 47 Lymph % (Auto) 28 Ogle % (Auto) 15 H Eos % (Auto) 8 Baso % (Auto) 1 Neut # (Auto) 3.8 Lymph # (Auto) 2.3 Ogle # (Auto) 1.2 H Eos # (Auto) 0.6 H Baso # (Auto) 0.1 Immature Gran # (Auto) 0.06 H Absolute Nucleated RBC 0.02 H Immature Gran % 1 H Nucleated RBC % 0 Sodium 135 L 139 Potassium 5.2 H D 4.5 D Chloride 100 102 Carbon Dioxide 25.1 25.8 Anion Gap 10 11 BUN 20 17 Creatinine 0.6 0.6 Estim Creat Clear Calc 156.5 152.9 eGFR > 60 > 60 BUN/Creatinine Ratio 33 H 28 H Glucose 111 H 105 Calculated Osmolality 273 L 279 Calcium 9.3 9.3 Corrected Calcium 9.5 Phosphorus 6.1 H 5.5 H Magnesium 2.3 1.7 Total Bilirubin 0.2 L AST 47 H ALT 78 H Alkaline Phosphatase 105 Total Protein 6.6 Albumin 3.7 Globulin 2.9 Albumin/Globulin Ratio 1.3 Triglycerides 385 H Hepatitis C Antibody Non Reactive ABG Interpretation ABG results: 05/09/25 05/09/25 05/09/25 11:56 13:40 18:50 ABG pH 7.40 7.27 L D 7.28 L ABG pCO2 40 43 55 H D ABG pO2 131 H 53 L* D 70 L ABG HCO3 25 20 26 ABG O2 Saturation 99 H 81 L 92 ABG Base Excess 0 -7 L -2 05/10/25 05/11/25 05/12/25 00:14 05:06 01:18 ABG pH 7.35 7.33 L 7.39 ABG pCO2 42 D 54 H D 48 ABG pO2 103 D 93 94 ABG HCO3 23 28 H 29 H ABG O2 Saturation 99 H 98 98 ABG Base Excess -3 2 3 05/12/25 05/12/25 05/13/25 03:58 11:50 05:10 ABG pH 7.46 H 7.39 7.19 L* D ABG pCO2 41 48 60 H D ABG pO2 105 58 L* D 114 H D ABG HCO3 29 H 29 H 23 ABG O2 Saturation 99 H 90 L 98 ABG Base Excess 5 H 4 H -6 L 05/17/25 05/18/25 05/19/25 01:30 04:09 04:43 ABG pH 7.38 7.43 7.47 H ABG pCO2 46 44 43 ABG pO2 90 83 80 L ABG HCO3 27 H 29 H 31 H ABG O2 Saturation 98 97 97 ABG Base Excess 2 5 H 7 H 05/21/25 05/21/25 04:18 06:33 ABG pH 7.37 D 7.46 H ABG pCO2 50 H 38 D ABG pO2 40 L* D 121 H D ABG HCO3 29 H 27 H ABG O2 Saturation 66 L 100 H ABG Base Excess 3 3 Quality Measures Quality Measures VTE prophylaxis (SCDs) and sepsis Current suspected stage: sepsis Possible source: pulmonary Blood cultures ordered: yes Antibiotic ordered: Yes Assessment & Plan Assessment Current Active Medications: Generic Name Dose Route Start Last Admin Trade Name Freq PRN Reason Stop Dose Admin Acetaminophen 650 mg 05/14/25 05:13 05/14/25 18:15 Acetaminophen 325 Mg Tablet PO 06/13/25 05:12 650 mg On Hold: 05/14/25 23:01 Q6HR PRN Administration Fever >100.4 Albuterol/Ipratropium 3 ml 05/09/25 18:19 05/20/25 01:36 Albuterol/Ipratropium (Duoneb) Rt Racquel 3 Ml Nebu INH 06/08/25 18:18 3 ml Q2HR PRN Administration SHORTNESS OF BREATH OR WHEEZE Calcium Carbonate 600 mg 05/20/25 18:20 05/23/25 09:56 Calcium Carbonate 600 Mg Tablet GT 06/19/25 18:19 600 mg QDAY KYA Administration Clonazepam 2 mg 05/23/25 21:00 Clonazepam 0.5 Mg Tablet PO 05/28/25 20:59 BID KYA Enoxaparin Sodium 40 mg 05/23/25 11:15 05/23/25 12:20 Enoxaparin Sod Inj 40 Mg/0.4 Ml Syringe SC 06/06/25 11:14 40 mg QDAY KYA Administration Valproic Acid 187.5 mg/ Sodium 51.875 mls @ 51.875 mls/hr 05/09/25 18:00 05/23/25 12:21 Chloride IV 06/07/25 17:59 51.875 mls/hr Q6HR KYA Administration Protocol Propofol 1,000 mg in 100 mls @ 2.103 mls/hr 05/13/25 04:16 05/23/25 13:40 Diprivan Ivpb IV 06/12/25 04:15 45 mcg/kg/min .Q24H PRN 18.927 mls/hr PER PROTOCOL Administration Protocol 5 MCG/KG/MIN Fentanyl Citrate 2,500 mcg in 250 mls @ 2.5 mls/hr 05/23/25 11:38 Sublimaze Inj 2,500 Mcg/250 Ml Bag IV 05/28/25 08:44 .Q24H PRN PER PROTOCOL Protocol 25 MCG/HR Levetiracetam 1,000 mg 05/20/25 21:00 05/23/25 09:56 Levetiracetam Inj 100 Mg/Ml Vial 5ml IV 06/19/25 20:59 1,000 mg BID KYA Administration Midazolam HCl 4 mg 05/22/25 17:56 05/23/25 12:06 Midazolam Inj 1 Mg/Ml Vial 2 Ml IVP 05/26/25 09:47 4 mg Q5MIN PRN Administration seizures or agitation Ofloxacin 5 drop 05/21/25 14:45 05/23/25 09:58 Ofloxacin Op Racquel 0.3% 5 Ml Btl BOTH EARS 05/31/25 14:44 5 drops BID KYA Administration Ondansetron HCl 4 mg 05/08/25 11:36 Ondansetron Inj 2 Mg/Ml Inj 2 Ml IVP 06/07/25 11:35 Q6HR PRN NAUSEA OR VOMITING Protocol Pantoprazole Sodium 40 mg 05/24/25 09:00 Pantoprazole Inj 40 Mg Vial IVP 06/23/25 08:59 QDAY KYA Phenobarbital 259.2 mg 05/23/25 11:30 05/23/25 12:20 Phenobarbital 32.4 Mg Tablet GT 06/06/25 11:29 259.2 mg Q6HR KYA Administration Polyethylene Glycol 17 gm 05/16/25 09:15 05/23/25 09:59 Polyethylene Glycol 17 Gm Packet PO 06/15/25 09:14 Not Given QDAY KYA Sevelamer Carbonate 800 mg 05/23/25 08:00 05/23/25 12:19 Sevelamer Carbonate 800 Mg Tablet GT 06/22/25 07:59 800 mg TIDWM KYA Administration Sodium Chloride 3 ml 05/17/25 11:43 Sodium Chloride Rt Racquel 0.9% 3 Ml Nebu INH 06/16/25 11:42 PRN PRN SOLN Plan 24-year-old male with cerebral palsy, asthma, seizure disorder, chronic mastoiditis, recurrent pneumonia, and chronic PEG tube dependence presented with fever and seizure, was admitted for sepsis workup, and later transferred to the ICU for intubation due to concerns about airway protection. Neurology #Agitated delerium Patient was extremely agitated before ICU admission, likely due to pain from paraphimosis. Patient initially sedated with propofol and fentanyl, titrated to Precedex with Benadryl before extubation. Patient failed extubation and was intubated on 05/12. Propofol and fentanyl was restarted. Diagnostic Test: - 05/23 AM: RASS was -4, no response to voice but movement to physical stimuli. Treatment Review (completed) - Versad 5mg/h was tapered off on 05/15. - Phenobarbital 130 mg IV Q6HR 05/16-05/18. - Olanzapine 5mg daily 05/13-05/16. - Olanzapine 5mg TID 05/16-05/18. - Midazolam 4mg --> 8mg gtt 05/18-05/19. - Oxycodone 10mg GT TID 1021- 05/22. Treatment Plan: - Phenobarbital 260 mg Q6H. - Clonazepam 2mg BID. - Fentanyl 100 and Propofol 40. - Wean off propofol as TG at 385. - Versad 4mg PRN if patient starts to get agitated. - If continues to be on Propofol, recheck TG on 05/26 (every 72 hours). - MRI brain pending. #History of seizures #Cerebral palsy Diagnosis: - Temperature of 105F on admission. - EEG 05/11 unremarkable - Repeat EEG 05/20: electrographic seizure activity. - Persistent fever spikes. - Continuous EEG 05/22-05/23: no seizure activity or status epilepticus. Treatment Plan: - Levetiracetam 1000 mg BID. - Valproic acid 187.5 mg Q6H. - Adjust seizure medications if breakthrough seizures persist. - Seizure precautions. - Aspiration precautions. Cardiovascular #Sinus tachycardia DDx: fevers vs hypersympathetic activity. Diagnostic Test: - Fever spike up to 101.5F overnight. Treatment Plan: - No specific treatment required at this time. Infectious disease workup remains unrevealing. Unsure of the cause of fever spikes which are associated with tachycardia and tachypnea. - Continue close cardiac monitoring. - Monitor electrolytes and replete as needed. - Maintain Mg > 2 and K > 4 to reduce arrhythmia risk. Respiratory #Failed extubation 05/12 #Acute hypoxic respiratory failure Diagnostic Test: - CXR 05/11: Mild bilateral perihilar pneumonia. To assess for ventilator associated pneumonia. Not much change from 05/09 CXR. - Pseudomonas from ETT secretions previously (05/09). - CXR 05/15: improvement in bilateral pneumonia. - CXR 05/16: worsening diffuse severe left lung pneumonia. - ABG 05/18: pH 7.43, pCO2 44, pO2 83 and HCO3 29. - CXR 05/19: Significant bilateral pneumonia. Treatment Review (completed): - Patient extubated to [facility] 05/12, chest film with centro-bronchovascular congestion and multifocal pneumonia. - Reintubated overnight 05/13- VC/AC PPeak 20 PEEP 5 FiO2 40%. - Patient underwent bronchoscopy on 05/14 and 05/17 for secretions, well tolerated. - Meropenem (05/12-05/17, 05/19-05/22, for a total of ten days). Treatment Plan: - Repeat sputum cultures as prior one is contaminated (05/21 Epithelial Cells/lpf). - Bronchoscopy culture pending. - Chest physiotherapy PRN. - Given the patient's current condition, including severe tachycardia and excessive secretions, he is not considered a suitable candidate for extubation at this time. Therefore, mechanical ventilation will be continued to support respiratory status. - Patient will be reassessed daily to determine if weaning from sedation and extubation can be possible. This is day 13 of intubation, and if extubation remains unfeasible, the possibility of a tracheostomy will need to be considered. Avoid prolonged ETT placement beyond 14-21 days. - Continue MV settings: PEEP 6.0, Ppeak 24.4, Pplateau 12.4. #Bronchospasm #History of asthma Diagnostic Test: - Although the patient has a history of asthma, the bronchospasm is most likely from the irritant effect of blood in the airway. A small amount of blood, which was likely from dryness of the nasal mucosa, was suctioned out during intubation. Treatment Plan: - Magnesium for bronchodilator effect as needed. - Albuterol and Ipratropium as needed. GI, , F/E/N #Chronic PEG tube dependence Treatment Plan: - Jevity 1.5 at 40 ml/hr x 24 hrs via PEG tube by pump (goal). If no IV fluids, water flushes of 35 ml/hr. - ProStat 30ml BID via PEG tube. - Appreciate treasury analyst recommendations. . - Triglyceride level 05/14 - 290; 05/17 - 312; 05/20 - 221. - Repeat TG levels every 72 hours when on Propofol, which should be discontinued if triglyceride levels reach or exceed 400 mg/dL to prevent hypertriglyceridemia-associated complications. - Next check 05/23 is patient remains on Propofol. #Hepatitis (downtrending) Likely due to meropenem or tylenol that could potentially cause hepatotoxicity. Diagnostic Test: - Gallbladder ultrasound 05/16: Normal gallbladder, no gallstones. Fatty infiltration throughout the liver. - Lipase 05/16: 41 wnl. Treatment Plan: - Continue daily LFTs. - Avoid acetaminophen unless fever exceeds 101.0?F or Ibuprofen as alternative. - Will reassess if transaminases continue to rise or clinical status changes. #Acute urinary retention Treatment Plan - Maintain hawkins catheter. Monitor UOP. - Monitor urine output, replace fluid if needed. - Hawkins changed and replaced on 05/16. - Hawkins removed on 05/20. - Hawkins placed 05/22 and then removed 05/23, will continue with straight cath if patient continues to have urinary retention. #Hypoalbuminemia (resolved) Likely due to acute hepatitis Diagnostic Test: - UA had urine proteins 1+. - Albumin 4.9 -->3.3 -->2.8 --> 3.2 --> 3.4 --> 2.8 --> 2.5. Treatment Plan: - Monitor LFTs, INR, and bilirubin. - Maintain on PEG tube feeds per treasury analyst recommendations. #Paraphimosis (resolved) #Balanitis (resolved) Diagnostic Test: - Edema and tenderness of the glans penis. - Swelling of the distal retracted foreskin. - Constricting band of tissue proximal to the head of the penis at the coronal sulcus. - Hawkins was removed on 05/09 and transitioned to Oivi external urinary catheter. Discussed with family about the need to reinsert hawkins due to the patient's acute urinary retention. Family were in agreement with this plan. Hawkins was reinserted on 05/10 due to urinary retention. Hawkins changed and replaced on 05/16. - S/p reduction of the paraphimosis by Dr. Vargas on 05/09. Treatment Plan: - Control patient's pain with sedation. - Monitor urine output. Renal #Hyperkalemia (resolved) #Hyperphosphatemia (resolved) DDx: acute kidney injury vs hemolysis vs rhabdomyolysis. Diagnostic Test: - Potassium 5.2. - Phosphorus 5.5. - CK 363. - LDH 350. - Uric acid 3.5. - Hemoglobin 8.8. - Cr 0.6. Treatment Plan: - Monitor BMP and phosphorus. - Monitor potassium levels to avoid arrhythmias. #Acute kidney injury (resolved) DDx: dehydration or vasodilation from sepsis. Diagnositc Test: - Creatinine 1.3 (baseline: 0.7) Treatment Plan: - Continue with free water flushes. - Daily renal panel to trend BUN, Cr, and electrolytes. - Avoid nephrotoxins. - Renally dose meds as appropriate. - Strict I&Os, monitor urine output closely. - Monitor for signs of volume overload or uremic symptoms. #Anion Gap Metabolic Acidosis (resolved) #Lactic acidosis (resolved) DDx: seizures vs sepsis vs acute kidney injury vs hypoperfusion. Likely from seizures as patient has no signs of systemic hypoperfusion such as skin mottling, decreased cap refills. Diagnostic Test: - Admission anion gap 22, lactic acid 16.0, bicarbonate 18.7. Treatment Plan: - Recheck LA as needed. #Rhabdomyolysis (resolving) DDx: seizures vs hyperthermia vs infectious myositis. Diagnostic Test: - CK 1048 --> 3743 --> 1654 --> 338 --> 363. - Witnessed seizure episode lasting 5-10 seconds, characterized by tonic-clonic activity prior to admission. Treatment Plan: - Continue free water flushes at 35 cc/hr. - Monitor urine output. - Correct electrolyte abnormalities. - Control seizures with valproic acid and levetiracetam. - Monitor renal panel. Heme #Acute nonocclusive thrombus in the left brachial vein Diagnostic Test: - Venous doppler study of upper extremities 05/16: Normal right upper extremity deep venous system. Positive for nonocclusive thrombus in the left brachial vein. - Per chart review and patient's parents, patient does not have history of clots. Treatment Review (completed): - Lovenox 30 mg (05-11 - 05/15). - Lovenox 40 mg (05/16). - Heparin loading dose and ggt. Lovenox to heparin due to heparin?s shorter half-life, which allows for more rapid cessation in the event of bleeding, a shorter half life and can be stopped if bleeding occurs. - Stopped heparin ggt due to hematuria on 05/18. Treatment Plan: - Started Lovenox 40 mg SC QD. - Primary upper extremity deep vein thrombosis, anticoagulation should be continued for a minimum of three months following the initial thrombotic event. #Leukocytosis (resolved) DDx: likely due to bronchoscopy vs infection of unknown source vs drug induced Diagnostic Test: - Continue to have fever spikes as high as 102.8?F. - Increase WBCs 8.9 --> 11.1 after bronchoscopy on 05/14. - Increase WBCs 14.7 --> 16.1 after bronchoscopy on 05/17. Treatment Plan: - Treat underlying cause. #Normocytic Anemia DDx: Anemia of Inflammation vs dilutional anemia vs drug-induced anemia. Likely dilutional anemia since patient had normal hemoglobin on admission and from IV fluids per sepsis protocol. No signs of bleeding. Diagnostic Test: - Hemoglobin 7.9. Treatment Plan: - Monitor H&H. - Type and screen. - Transfusing for Hgb <7 or symptomatic. #Thrombocytosis DDx: infection vs reactive Diagnostic Test: - Plt 752. Treatment Plan: - Monitor CMP. #Thrombocytopenia (resolved) DDx: Dilutional versus consumption versus increased destruction due to sepsis. Initial decrease is likely due to dilutional in setting of IV fluids, however his WBC and hemoglobin have leveled off platelets have down trended. Diagnostic test: - Platelets: 209 --> 65-->141. Treatment plan: - Monitor daily labs - Avoid excessive oral tracheal suctioning in setting of previous bleed and thrombocytopenia. Endo #no active problems ID #Sepsis #Bilateral chronic mastoiditis #Sinusitis #Bilateral otitis media #Bilateral otitis externa DDx: meningitis vs acute on chronic mastoiditis vs acute febrile illness. Diagnostic Test: - History of chronic mastoiditis. - Met SIRS criteria on admission: T 105F, HR 176, RR 26, PaCO2 26, WBC 16.3. - 05/08 Lactic acid 16.0. - 05/08 CT Head: prominent sphenoid ethmoid maxillary antral sinusitis, bilateral chronic mastoiditis, bilateral otitis media. - 05/08 CT Orbit Sella Inner: severe bilateral chronic mastoiditis, bilateral otitis externa and otitis media, bilateral cholesteatomas in the attics. - 05/08 MRSA screen negative. - 05/09 Sputum culture: 1+ thurman resistance Pseudomonas. - 05/10 Lumbar puncture: clear, WBC 3, glucose 70, total protein 25. - CSF Streptococcus pneumonia Ag negative. - CSF Streptococcus B antigen negative. - CSF Neisseria meningitis B/E.coli K1 negative. - CSF Neisseria meningitis ACY/W135 Ag negative. - CSF haemophilus influenzae B Ag negative. - CSF enterovirus RNA negative. - CSF West Nile virus IgG antibody negative. - CSF West Nile virus IgM antibody negative. - 05/10 Respiratory viral panel: rhinovirus/enterovirus and human metapneumovirus detected. - 05/12 Bilateral ear culture: E coli ESBL. - UA 05/08 and 05/16 negative. - Blood culture 05/08, 05/11, and 05/16 negative. - 05/16 CTAP: Extensive bilateral pneumonia, cystitis pattern, cholelithiasis. - 05/16 CXR: worsening diffuse severe left lung pneumonia. - 05/16 CT Head: unremarkable. - 05/16 Venous doppler ultrasound: Normal right upper extremity deep venous system. Positive for nonocclusive thrombus in the left brachial vein. Treatment Review (completed) - Rocephin 2 gm IV q12HR [05/08-05/11]. - Vancomycin dosed by pharmacy [05/08-05/11] since MRSA screen is negative. - Acyclovir 700 mg IV [05/08-05/11] since LP negative. - Ampicillin 2 gm IV q4HR [05/08-05/09] as patient not in the age group at risk for Listeria infection. - Fluids: 30mL/kg -- 2 L NS fluid infusion and 1 L LR fluid infusion was given in the ED. - Femoral central line removed 05/11, replaced with peripheral access. - Levaquin 750 mg IV [05/11-05/12]. - Doxycycline 100mg IV BID [05/16-05/18] for GPC coverage. - Meropenem 1 g IV [05/12 -05/18]. - Meropenem [05/19-05/22] for ten days total. Treatment Plan: - Topical oxofloxacin. - Patient has limited options in terms of antibiotics in the future as meropenem is broad-spectrum. May have to consider ceftazidime or ceftaroline if he continues to develop recurrent infections. Integumentary #Maculopapular rash to the buttocks DDx: contact dermatitis vs allergic dermatitis Treatment Plan - Patient no longer has diaper on as hawkins is in place. Anticipate rash to improve. Health Maintenance DVT prophylaxis: SCDs, Levonox 40mg QD. GI prophylaxis: Protonix IV Diet: Jevity Hawkins: none. Straight cath in/out q4h if urine retention more than 400 ml Lines: Peripherals Drips: Propofol, fentanyl. Vent: MV, PPlat <30 and TV < 8 ml/kg IBW CODE STATUS: FULL CODE Patient plan of care was discussed with the senior resident, Dr. Orozco, and attending physician, Dr. Baeza. Diaz Coppola, DO Internal Medicine PGY-1
[2025-05-23] MEDS: fentaNYL 2,500 MCG/250 ML BAG 2,500 MCG/250 ML BAG 17.5 MCG IV (15:41)
[2025-05-23] MEDS: Magnesium Sulfate 4 GM Ivpb 4 GM/50 ML BAG IV (17:25)
[2025-05-23 17:49] LABS: EBV EBNA Ab (IgG) 49.30 U/mL; EBV VCA Ab (IgG) 417.00 U/mL; EBV VCA Ab (IgM) <36.00 U/mL
--- NOTE | 2025-05-23 18:46 | PD.RESPRO ---
Documentation for date of: 05/23/25 Subjective Subjective Interval history: Patient examined at bedside. Blood pressure 133/65, tachycardia 140, fever 101.1. He continues to spike fevers through the night. Per nurse, noticeable correlation of fever spikes with movement and agitation when attempting to wean the sedation. Continuous EEG was negative for seizure like activity. Ordered MRI due to the agitation. Results are pending. Continue Keppra and Depakote. Plan to speak with family about re starting Austdo (deutetrabenazine) to help with agitation and dyskinetic movements. Patient had been on this medication in the past however family decided to dc it. They were concerned that this medication was worsening his symptoms. Exam Vital Signs Temp Pulse Resp BP Pulse Ox O2 Del Method O2 Flow Rate 98.2 F 109 H 19 123/65 100 Mechanical Ventilation 35 05/23/25 16:00 05/23/25 18:19 05/23/25 18:19 05/23/25 18:19 05/23/25 18:19 05/23/25 04:00 05/16/25 12:00 FiO2 30 05/23/25 18:19 Narrative Exam Physical Exam General: sedated and intubated, nonverbal at baseline, not in acute distress. RASS score -3 (no response to voice, but movement to noxious stimuli). Head: Normocephalic, atraumatic. Eyes: PERRL. Anicteric. Bilateral lateral eye scleral hemorrhage. Mouth/Throat: Poor dentition. Oral mucosa moist with excessive secretions. ETT in place. Cardiovascular: Regular rate and rhythm, no murmur. Respiratory: Rhonchi to auscultation in bilateral lung thompson. Gastrointestinal: PEG tube in place, site is clean, dry and intact. Soft, no guarding or rebound tenderness. Extremities: Contracted and swollen hands. No LE edema, cyanosis, mottling, clubbing. 2+ radial pulse bilaterally, 2+ posterior tibial pulse bilaterally. Objective Labs 05/25/25 04:25 05/25/25 04:25 Labs: Laboratory Results - last 24 hr 05/22/25 05/23/25 17:47 05:00 WBC 8.1 RBC 3.16 L Hgb 8.9 L Hct 27.7 L MCV 88 MCH 28.2 MCHC 32.1 RDW Std Deviation 46.9 H Plt Count 752 H Neut % (Auto) 47 Lymph % (Auto) 28 [place] % (Auto) 15 H Eos % (Auto) 8 Baso % (Auto) 1 Neut # (Auto) 3.8 Lymph # (Auto) 2.3 [place] # (Auto) 1.2 H Eos # (Auto) 0.6 H Baso # (Auto) 0.1 Immature Gran # (Auto) 0.06 H Absolute Nucleated RBC 0.02 H Immature Gran % 1 H Nucleated RBC % 0 Sodium 135 L 139 Potassium 5.2 H D 4.5 D Chloride 100 102 Carbon Dioxide 25.1 25.8 Anion Gap 10 11 BUN 20 17 Creatinine 0.6 0.6 Estim Creat Clear Calc 156.5 152.9 eGFR > 60 > 60 BUN/Creatinine Ratio 33 H 28 H Glucose 111 H 105 Calculated Osmolality 273 L 279 Calcium 9.3 9.3 Corrected Calcium 9.5 Phosphorus 6.1 H 5.5 H Magnesium 2.3 1.7 Total Bilirubin 0.2 L AST 47 H ALT 78 H Alkaline Phosphatase 105 Total Protein 6.6 Albumin 3.7 Globulin 2.9 Albumin/Globulin Ratio 1.3 Triglycerides 385 H Hepatitis C Antibody Non Reactive ABG Interpretation ABG results: 05/09/25 05/09/25 05/09/25 11:56 13:40 18:50 ABG pH 7.40 7.27 L D 7.28 L ABG pCO2 40 43 55 H D ABG pO2 131 H 53 L* D 70 L ABG HCO3 25 20 26 ABG O2 Saturation 99 H 81 L 92 ABG Base Excess 0 -7 L -2 05/10/25 05/11/25 05/12/25 00:14 05:06 01:18 ABG pH 7.35 7.33 L 7.39 ABG pCO2 42 D 54 H D 48 ABG pO2 103 D 93 94 ABG HCO3 23 28 H 29 H ABG O2 Saturation 99 H 98 98 ABG Base Excess -3 2 3 05/12/25 05/12/25 05/13/25 03:58 11:50 05:10 ABG pH 7.46 H 7.39 7.19 L* D ABG pCO2 41 48 60 H D ABG pO2 105 58 L* D 114 H D ABG HCO3 29 H 29 H 23 ABG O2 Saturation 99 H 90 L 98 ABG Base Excess 5 H 4 H -6 L 05/17/25 05/18/25 05/19/25 01:30 04:09 04:43 ABG pH 7.38 7.43 7.47 H ABG pCO2 46 44 43 ABG pO2 90 83 80 L ABG HCO3 27 H 29 H 31 H ABG O2 Saturation 98 97 97 ABG Base Excess 2 5 H 7 H 05/21/25 05/21/25 04:18 06:33 ABG pH 7.37 D 7.46 H ABG pCO2 50 H 38 D ABG pO2 40 L* D 121 H D ABG HCO3 29 H 27 H ABG O2 Saturation 66 L 100 H ABG Base Excess 3 3 Quality Measures Quality Measures VTE prophylaxis (SCDs) and sepsis Current suspected stage: sepsis Possible source: pulmonary Blood cultures ordered: yes Antibiotic ordered: Yes Assessment & Plan Assessment Current Active Medications: Generic Name Dose Route Start Last Admin Trade Name Freq PRN Reason Stop Dose Admin Acetaminophen 650 mg 05/14/25 05:13 05/14/25 18:15 Acetaminophen 325 Mg Tablet PO 06/13/25 05:12 650 mg On Hold: 05/14/25 23:01 Q6HR PRN Administration Fever >100.4 Albuterol/Ipratropium 3 ml 05/09/25 18:19 05/20/25 01:36 Albuterol/Ipratropium (Duoneb) Rt Racquel 3 Ml Nebu INH 06/08/25 18:18 3 ml Q2HR PRN Administration SHORTNESS OF BREATH OR WHEEZE Calcium Carbonate 600 mg 05/20/25 18:20 05/23/25 09:56 Calcium Carbonate 600 Mg Tablet GT 06/19/25 18:19 600 mg QDAY KYA Administration Clonazepam 2 mg 05/23/25 21:00 Clonazepam 0.5 Mg Tablet PO 05/28/25 20:59 BID KYA Enoxaparin Sodium 40 mg 05/23/25 11:15 05/23/25 12:20 Enoxaparin Sod Inj 40 Mg/0.4 Ml Syringe SC 06/06/25 11:14 40 mg QDAY KYA Administration Valproic Acid 187.5 mg/ Sodium 51.875 mls @ 51.875 mls/hr 05/09/25 18:00 05/23/25 17:54 Chloride IV 06/07/25 17:59 51.875 mls/hr Q6HR KYA Administration Protocol Propofol 1,000 mg in 100 mls @ 2.103 mls/hr 05/13/25 04:16 05/23/25 15:41 Diprivan Ivpb IV 06/12/25 04:15 45 mcg/kg/min .Q24H PRN 18.927 mls/hr PER PROTOCOL Titration Protocol 5 MCG/KG/MIN Fentanyl Citrate 2,500 mcg in 250 mls @ 2.5 mls/hr 05/23/25 11:38 05/23/25 16:00 Sublimaze Inj 2,500 Mcg/250 Ml Bag IV 05/28/25 08:44 175 mcg/hr .Q24H PRN 17.5 mls/hr PER PROTOCOL Titration Protocol 25 MCG/HR Magnesium Sulfate 4 gm in 50 mls @ 12.5 mls/hr 05/23/25 16:38 05/23/25 17:25 Magnesium Sulfate Ivpb IV 05/23/25 20:37 12.5 mls/hr X1 ONE Administration Levetiracetam 1,000 mg 05/20/25 21:00 05/23/25 09:56 Levetiracetam Inj 100 Mg/Ml Vial 5ml IV 06/19/25 20:59 1,000 mg BID KYA Administration Midazolam HCl 4 mg 05/22/25 17:56 05/23/25 12:06 Midazolam Inj 1 Mg/Ml Vial 2 Ml IVP 05/26/25 09:47 4 mg Q5MIN PRN Administration seizures or agitation Ofloxacin 5 drop 05/21/25 14:45 05/23/25 09:58 Ofloxacin Op Racquel 0.3% 5 Ml Btl BOTH EARS 05/31/25 14:44 5 drops BID KYA Administration Ondansetron HCl 4 mg 05/08/25 11:36 Ondansetron Inj 2 Mg/Ml Inj 2 Ml IVP 06/07/25 11:35 Q6HR PRN NAUSEA OR VOMITING Protocol Pantoprazole Sodium 40 mg 05/24/25 09:00 Pantoprazole Inj 40 Mg Vial IVP 06/23/25 08:59 QDAY KYA Phenobarbital 259.2 mg 05/23/25 11:30 05/23/25 17:55 Phenobarbital 32.4 Mg Tablet GT 06/06/25 11:29 259.2 mg Q6HR KYA Administration Polyethylene Glycol 17 gm 05/16/25 09:15 05/23/25 09:59 Polyethylene Glycol 17 Gm Packet PO 06/15/25 09:14 Not Given QDAY KYA Sevelamer Carbonate 800 mg 05/23/25 08:00 05/23/25 17:25 Sevelamer Carbonate 800 Mg Tablet GT 06/22/25 07:59 800 mg TIDWM KYA Administration Sodium Chloride 3 ml 05/17/25 11:43 Sodium Chloride Rt Racquel 0.9% 3 Ml Nebu INH 06/16/25 11:42 PRN PRN SOLN Plan David Baltazar is 24 yr male with PMH of chronic mastoiditis (previously had tympanostomy tube placed for recurrent otitis media, now removed), seizure disorder, recurrent pneumonia, cerebral palsy, chronic PEG tube, and asthma who was brought into ED on 05/08/25 for ongoing fever of over 24 hours and reported episode of witnessed seizure by ED. Patient was septic. Neurology was consulted to for LP to rule out meningitis. #Mastoiditis #rule out Meningitis #Tonic clonic seizure #Hx seizures #Cerebral palsy LP culture was negative: clear, WBC 3, glucose 70, total protein 25. CSF Streptococcus pneumonia Ag negative , Streptococcus B antigen negative. CSF Neisseria meningitis B/E.coli K1 negative, Neisseria meningitis ACY/W135 Ag negative. CSF haemophilus influenzae B Ag negative. MRSA screen negative. Sputum culture thurman resistant Pseudomonas Repeat EEG was negative for seizure-like activity. -continue IV Keppra and Depakote -seizure precautions -midazolam for breakthrough seizure -Plan to speak with family about re starting Austdo (deutetrabenazine) to help with agitation and dyskinetic movements. #Paraphimosis #Acute Kidney Injury ##Lactic acidosis #Elevated total creatine kinase from his hyperkinetic movements #Normocytic Anemia Primary care team to manage above conditions and ongoing care needs. The patient's management plan was discussed with my attending physician Dr. Lang. Zakiya Delacruz, PGY-2 Attending Provider Attestation/Addendum I personally have seen and examined the patient at the bedside and I agreed with the resident's findings, assessment and plan of care. Patient has fever, persistent paroxysmal hemodynamic changes, needing to be on sedation. Will follow-up with the extended EEG recording. Continue with the Keppra and Depakote and phenobarbital.
[2025-05-24] VITALS (33 sets, daily range): BP systolic 97–146; BP diastolic 44–79; PULSE 83–157; RESP 14–32; TEMP 35.9–38.8; O2SAT 97–100; BMI 30.4
[2025-05-24] MEDS: fentaNYL 2,500 MCG/250 ML BAG 2,500 MCG/250 ML BAG 17.5 MCG IV (04:00)
[2025-05-24] MEDS: PROPOFOL 1,000 MG IVPB 1,000 MG/100 ML VIAL 14.721 MG IV ×2 (04:30→16:45)
[2025-05-24 05:56] LABS: Basophils # (Auto) 0.1 Thou/mm3 (0.0-0.2); Basophils % (Auto) 1 % (0-2.5); Eosinophils # (Auto) 0.6 Thou/mm3 (0.0-0.5); Eosinophils % (Auto) 9 % (0-10); Hematocrit 25.3 % (41.0-53.0); Immature Granulocytes Auto 0.07 Thou/mm3 (0.00-0.00); Lymphocytes # (Auto) 1.7 Thou/mm3 (1.0-4.8); Lymphocytes % (Auto) 26 % (10-50); Mean Corpuscular HGB Conc 32.4 g/dl (31.0-37.0); Mean Corpuscular Hemoglobin 27.9 pg (25.0-35.0); Mean Corpuscular Volume 86 fL (80-100); Monocytes # (Auto) 1.1 Thou/mm3 (0.0-0.8); Monocytes % (Auto) 17 % (0-12); Neutrophils # (Auto) 3.0 Thou/mm3 (1.8-7.7); Neutrophils % (Auto) 46 % (37-80); Nucleated Red Blood Cell # 0.00 Thou/mm3 (0.00-0.00); Nucleated Red Blood Cell % 0 /100 WBC (0); Platelet Count 489 Thou/mm3 (140-440); RDW Standard Deviation 45.6 fL (35.1-43.9); Red Blood Count 2.94 Miln/mm3 (4.50-5.90); White Blood Count 6.6 Thou/mm3 (3.8-10.6)
[2025-05-24 05:57] LABS: Hemoglobin 8.2 g/dL (13.5-16.0)
[2025-05-24 06:25] LABS: Alanine Aminotransferase 52 U/L (10-49); Albumin, Serum 3.6 gm/dL (3.5-5.0); Albumin/Globulin Ratio 1.4 (1.2-2.2); Alkaline Phosphatase 99 U/L (46-116); Anion Gap 13 (7-16); Aspartate Amino Transferase 35 U/L (0-34); BUN/Creatinine Ratio 38 Ratio (12-20); Bilirubin,Total 0.2 mg/dL (0.3-1.2); Blood Urea Nitrogen 19 mg/dL (9-23); Calcium 9.2 mg/dL (8.3-10.6); Calcium (Corrected) 9.5 mg/dL (8.5-10.1); Carbon Dioxide 24.9 mMol/L (20.0-31.0); Chloride 100 mMol/L (98-107); Creatinine (Component) 0.5 mg/dL (0.6-1.3); Estimated Creatinine Clearance 182.7 mL/min (>60); Globulin 2.6 gm/dL (2.3-3.5); Glucose 105 mg/dL (74-106); Magnesium 1.9 mg/dL (1.6-2.6); Osmolality,Calculated 277 (275-295); Phosphorous 6.7 mg/dL (2.4-5.1); Potassium 4.2 mMol/L (3.4-5.1); Sodium 138 mMol/L (136-145); Total Protein 6.2 gm/dL (5.7-8.2); eGFR > 60 See Note
[2025-05-24 07:25] LABS: CMV Antibody (IgG) 3.90 U/mL; CMV Antibody (IgM) <30.00 AU/mL; EBV Ab Interpretation PAST
[2025-05-24] MEDS: levETIRAcetam INJ 100 MG/ML VIAL 5ML 1000 MG IV ×2 (08:58→20:55)
[2025-05-24] MEDS: SEVELAMER CARBONATE 800 MG TABLET GT ×3 (09:03→18:11)
[2025-05-24] MEDS: POLYETHYLENE GLYCOL 17 GM PACKET PO (09:03)
[2025-05-24] MEDS: CALCIUM CARBONATE 600 MG TABLET GT (09:03)
[2025-05-24] MEDS: OFLOXACIN OP SOL 0.3% 5 ML BTL 5 DROP BOTH EARS ×2 (09:05→20:55)
[2025-05-24] MEDS: ENOXAPARIN SOD INJ 40 MG/0.4 ML SYRINGE SC (09:05)
[2025-05-24] MEDS: oxyCODONE HCL 5 MG IR TAB 10 MG PO ×3 (10:22→20:59)
[2025-05-24] MEDS: PROPOFOL 1,000 MG IVPB 1,000 MG/100 ML VIAL 18.927 MG IV (11:06)
[2025-05-24] MEDS: MEROPENEM INJ 1,000 MG in SODIUM CHLORIDE 0.9% (Popper) 50 ML 100 MG IV ×2 (13:10→20:58)
--- NOTE | 2025-05-24 13:38 | ESPR_ITS ---
<Statement entered by Jeanine Baeza MD - 05/25/25 13:05> TOTAL TIME: 45MINUTES ON DIRECT MEDICAL CARE, MANAGEMENT - COORDINATION AND COUNSELING > 50% OF TOTAL TIME I saw and evaluated the patient. I reviewed the resident?s note and agree with findings and plan as documented in the resident?s note. No fever overnight or this morning Still becomes severely agitated with hypersympathetic type responses to sedation weaning MRI noninformative chronic sinusitis noted but no purulent drainage - Cultures remain noninformative Tolerating tube feeds Mechanical ventilation dynamics remain acceptable without any changes required Increasing enteric sedation Added oxycodone 10 3 times daily Tracheostomy will be required and will be discussed with family Documentation for date of: 05/24/25 Subjective Subjective Interval history: 05/24/2025: No overnight events. Patient had consistent urine output without the need for straight catheterization. No fever spikes overnight. Remains difficult to titrate down sedatives. Oxycodone 10 mg 3 times daily via G-tube was initiated with goal reducing fentanyl drip. MRI of brain only showed chronic infections, no acute intracranial pathology to explain underlying condition. Resume meropenem due to possibility of resistant Pseudomonas causing sinusitis, will require extended course of antibiotics for completion of treatment. Spoke with family regarding tracheostomy, risks and benefits were explained, family expressed understanding and was agreeable to procedure. General surgery consulted for tracheostomy. 05/23/2025: A continuous EEG was placed at approximately 7:30 PM on 05/22. Overnight, the patient experienced two fever spikes, with a peak temperature of 101.1?F. Patient remained on Propofol 40 mcg/kg/min and Fentanyl 100 mcg/hr. Two doses of Versed were administered for agitation. Patient continues to have increased secretions. Patient had premature ventricular contractions the night before. Repeat labs showed potassium at 5.2, magnesium at 1.9, and phosphorous at 5.5 . Calcium gluconate, breathing treatment, 4 gram of magesium and sevelamer was given. EKG showed sinus tachycardia with QTc 426. Patient also developed acute urine retention, with a bladder scan showing 700 cc. A Hawkins catheter was inserted due to leakage from the previous catheter and noted post-void retention. Patient had approximately 2000 cc of urine output overnight. Since patient's output is more than his input, tube feed water flushes were increased from 45 to 55 cc. Patient had one bowel movement this morning. Hawkins was removed this morning, and straight cath in and out will continue if the patient continues to experience urinary retention. EEG was reviewed by Dr. Lang, who confirmed that there were no signs of status epilepticus or seizures. Plan to do MRI of the brain next. Increased phenobarbital and clonazepam doses. Will work on weaning down propofol as patient's triglycerides are 385. Heparin was switched to Lovenox. 05/22/2025: Overnight, the patient developed fever spikes, with the highest reaching 101?F. Cooling measures were ineffective, and Ibuprofen was administered. In response to the patient's condition, fentanyl was increased from 100 mcg to 150 mcg, and propofol was increased from 35 mcg to 40 mcg. Urine output over the past 12 hours was 1100 cc. Given the recurrence of fevers and signs of hypersympathetic activity, the phenobarbital dosage was increased to 130 mg every 6 hours, up from every 8 hours. C. diff PCR testing is pending for loose stools. The patient has been receiving Versed every 5 minutes for seizure- like activity until it resolves. The ICU team held an extensive discussion with the patient?s parents regarding the next steps, which include transferring the patient to a facility capable of continuous EEG monitoring while weaning off sedation, as the patient continues to experience persistent seizures. Last day of meropenem to complete 10 day course. 05/21/2025: Overnight, patient developed two fever spikes, with a maximum temperature of 102.6?F. Fevers were managed with Tylenol and cooling measures. Hawkins catheter was removed and replaced with a QiVi external catheter, with urine output of 1,650 cc over the past 12 hours. Propofol was increased from 30 to 35 mcg/kg/min due to agitation and the patient breathing over the ventilator, while fentanyl maintained at 150 mcg/hr. No bowel movement was reported overnight. Neurology agreed with gradual weaning of sedation as tolerated. EEG is scheduled for Friday, 05/23, and daily EEG monitoring is not required. Ear culture returned with Brittney, likely from normal hamilton from the ear swab. Ears were examed with otoscope. Right ear unremarkable. Left ear canal with clear liquid, like from ofloxacin ear drops. Reduced phenobarbital to 130 mg every 8 hours and clonazepam to 1mg BID. Versed 2 mg IV is available as needed for agitation. Continue meropenem. Fungal culture of ear culture grew Brittney, likely representing normal hamilton from the ear swab. Patient exhibited green penile discharge following hawkins removal. A chlamydia and gonorrhea test was ordered. Right arm is warm and tense to touch from IV infiltration, IV was removed and placed in distal part of the right forearm. 05/20/2025: Overnight, patient had a fever spike of 101.2F. Patient remained on Propofol 40 and Fentanyl 150 for sedation. Precedex was not needed for agitation. Urine output was 2800 cc in the past hours with no gross hematuria. No bowel movement. Patient?s phenobarbital dose was adjusted to 260 mg every 8 hours. Keppra dose was increased to 1000 mg twice daily as per the neurologist?s recommendation. An EEG revealed electrographic seizure activity. A repeat sputum culture was obtained due to contamination of the previous sample. Additionally, a gradual wean of propofol and fentanyl was initiated as tolerated. 05/19/2025: Overnight, patient had a fever spike of 102.2?F. Due to agitation, the Versed infusion was increased from 4 mg/gtt to 8mg/gtt. Patient was also receiving Propofol 30 and Fentanyl 150. Patient had one bowel movement and produced 1L of urine over the past 12 hours, with no evidence of gross hematuria. Versed 4 mg gtt was titrated up to 8mg gtt for patient's agitation. Patient was on Propofol 30 and Fentanyl 150. Patient had one bowel movement. Urine output was 1L in the past 12 hours with no gross hematuria. This morning, clonazepam 2 mg PO TID was initiated, Propofol infusion was increased to 50 mcg/kg/min, and fentanyl was maintained at 50 mcg/hr. The versed infusion was discontinued, and Meropenem was restarted to treat Pseudomonas pneumonia, since the patient continued to spike fevers despite discontinuation of the medication. Sputum culture and EEG will be repeated. Heparin was restarted for DVT PPX. 05/18/2025: Overnight, patient remained on Propofol 30 and Fentanyl 300, with Versed 2mg dose x1. Magnesium was given for bronchodilation. Ibuprofen given for fever. Plan was to wean off sedation and extubate the patient today, but due to significant oral secretions and concerns about potential aspiration and the patient's inability to protect the airway, the decision was made to keep the patient intubated for now. A spontaneous breathing trial was attempted, and the patient?s lungs are functioning well. However, given the ongoing agitation, sedation could not be reduced. Phenobarbital dose was increased from 130mg to 260mg every 6 hours, and a 4mg Versed drip was started. Olanzapine was discontinued, and both doxycycline and meropenem were stopped due to concerns of a potential drug reaction, as fever spikes worsened after the initiation of meropenem on 05/12. Heparin was restarted yesterday for a DVT in the left brachial vein but was discontinued this morning due to ongoing hematuria without clots. A follow-up Doppler will be performed in 2-3 days to assess whether the DVT has resolved. Patient?s urine output was 2240cc over the past 12 hours. Maintenance fluids were started at 100ml/hr to manage the increased urine output. ICU team spoke with the patient's mother today, providing updates on the changes in the medication regimen and the patient's current status. Informed her that this is Day 9 of intubation, and there are four more days to attempt extubation before considering a tracheostomy. TSH, EBV, and CMV panels were ordered for further evaluation. 05/17/2025: Overnight,patient was placed on droplet precautions due to positive rhinovirus and human metapneumovirus. Patient received a 4 mg dose of Versed for agitation. Heparin drip was initiated for an upper extremity DVT but was paused at 12:15 AM due to hematuria without clots. Urine output was approximately 170 cc/hr, and the patient had two bowel movements since yesterday. Today, the patient underwent bronchoscopy and tolerated the procedure well, with stable gas exchange observed. To facilitate weaning off fentanyl and propofol, the patient was started on phenobarbital 13 mg and oxycodone 10 mg scheduled TID. Will consider adding Precedex to further support the weaning process and work towards extubation tomorrow. Heparin drip for the DVT has been restarted as the hematuria is improving. Additionally, 1L of IV LR was administered to address hyperkalemia and hyperphosphatemia on AM labs. Plan is to remove the Hawkins catheter tomorrow, 05/18. 05/16/2025: Overnight, patient experienced intermittent spasmodic jerking episodes, lasting about 15-20 minutes at a time. During these episodes, the patient becomes tachycardic and febrile. Baclofen 10mg was administered, followed by a single dose of midazolam 2mg IV for agitation. Patient remains on fentanyl 100 mcg/hr and propofol 50 mcg/kg/min for sedation. Patient spiked a fever of 102.6?F, for which IV tylenol was given. A subsequent temperature of 102.4?F was treated with ibuprofen. The Hawkins catheter was replaced overnight. Urine output over the past 12 hours was approximately 850 mL. Patient has not had a bowel movement since 05/13, will add miralax. Due to persistent fevers, doxycycline 100 mg IV BID was initiated for gram-positive cocci coverage. Blood cultures will be repeated, and a right upper quadrant ultrasound has been ordered to evaluate for potential hepatobiliary source of infection. Liver enzymes are improved from yesterday. Planned Interventions: Initiate phenobarbital 130 mg IV every 6 hours and begin weaning off propofol. Increased olanzapine from 5 mg GT QHS to 5 mg TID. Perform bilateral upper extremity ultrasound to assess for DVT. Repeat UA, CXR, CT head and abd/pelvis. Check lipase levels. 05/15/2025: Overnight, the patient developed a fever of 101.8?F. PO acetaminophen was switched to IV formulation by the night team. Temperature improved to 99.5?F by morning. Urine output over the past 12 hours was approximately 620 cc. Liver enzymes continue to trend upward, will hold acetaminophen for now. Patient was weaned off midazolam infusion today. Plan is to begin tapering propofol next. Antipsychotic regimen was adjusted from quetiapine to olanzapine to minimize risk of QTc prolongation. Repeat chest X- ray showed improvement in bilateral pneumonia. Bronchoscopy was performed yesterday (05/14). Repeat procedure is being considered for 05/16. Increase in WBCs and fever likely from bronchoscopy. 05/14/2025: No acute events overnight. Stable on versed/ fentanyl and propofol. No vasopressor requirements. Patient underwent bronchoscopy, well tolerated. Gas exchange stable. PPeak remains in mid20s. Patient on minimal FiO2 and PEEP now. Good ventilator synchrony. Continues to have heavy drooling and output form upper airway. Minimal from ETT now. 05/13/2025: Patient increased FiO2 overnight to 100%. Difficulty managing secretions. Bleeding from nose and plugging. Agitated with maximal dose of precedex and benadryl pushes. Patient with low grade temp to 100.4F. Mild secretions from ETT, pink/ frothy. 05/12/2025: Patient weaned down on sedation. Tmax 102 degrees at 1600 hrs. 05/11. Patient developed mild hepatitis, likely response to medications, will monitor. Patient successfully weaned off of propofol and fentanyl, Precedex initiated. Patient extubated, placed on high flow. Continues to have high secretions, treated with chest PT, oral suctioning as needed, ipratropium breathing treatments scheduled. Patient notably agitated, treating with Benadryl as needed and Precedex drip. Will continue to try and decrease sedation while maintaining patent airway. Sputum culture grew thurman resistant Pseudomonas, meropenem initiated. Will continue Levaquin for now pending cultures. Ear cultures taken. Patient maintaining good urine output, will replete volume if patient exceeds greater than 2 L output. 05/11/2025: Overnight, the patient became increasingly agitated and was observed biting on the endotracheal tube. In response, propofol was increased from 40 mcg/kg/min to 45 mcg/kg/min, and fentanyl was increased from 200 mcg/hr to 250 mcg/hr. The plan is to attempt weaning the patient off sedation today, and work towards extubation. A lumbar puncture was performed, which showed 3 WBCs. Infection from meningitis is less likely, but culture results are pending for confirmation. Today, the patient has been experiencing a low-grade fever, with the highest recorded temperature being 100.4?F. After the Hawkins catheter was placed, the patient had 1700 cc of urine output over the past 12 hours. Followed up with Dr. Jacky Cuadra (ENT in [place]). Dr. Cuadra stated that there is nothing additional he could identify on the CT imaging that the radiologist has not already seen. And that if there was something it would likely be surgical and he does not perform surgeries. He recommended covering for Pseudomonas with clindamycin and Unasyn. The plan is to start levofloxacin for Pseudomonas coverage as well. Additionally, Dr. Cuadra suggested culturing the ear. 05/10/2025: Patient remained sedated with propofol and fentanyl throughout the night, maintaining adequate sedation levels. Around 2 AM, the propofol dose was reduced due to MAP in the 60s. 1L of LR was administered on top of the ongoing IV maintenance fluids at 100cc/hr. Following this, the MAP remained stable above 65. At 6:50 PM on 05/09, an ABG revealed a pH of 7.28, pCO2 of 55, and pO2 of 70, indicative of respiratory acidosis. Patient was given 5 grams of magnesium and 15 mg of albuterol over the course of an hour to promote bronchodilation. Magnesium also needed to be repleted. A repeat ABG showed normalization of the respiratory parameters. Patient's Hawkins catheter was removed and replaced with a QiVi catheter overnight per the patient's father?s request. However, the patient developed urinary retention. A bladder scan performed at 6 AM showed 295cc of retained urine, and a subsequent scan in the afternoon revealed 439cc. Primary team consulted ICU team. On 05/09, two rapid responses were initiated due to the patient?s escalating agitation and anxiety. Patient appeared to be in significant pain from his paraphimosis. The primary team consulted the ICU for further management, as the patient had already received diazepam, haldol, versed, and dilaudid earlier that morning, with inadequate relief. Additionally, there was concern over a decline in his pO2 levels. The initial ABG at 11:56 showed: pH 7.40, pCO2 40, pO2 131, HCO3 25. A repeat ABG at 13:40 revealed: pH 7.27, pCO2 43, pO2 53, HCO3 20. Upon evaluation by the ICU team, the patient was noted to be extremely agitated and wearing an oxygen mask, with audible gurgling sounds coming from the upper airway, raising concern for potential airway compromise. Given the risk of inadequate airway protection, the decision was made to transfer the patient to the ICU for intubation and further management. In the ICU, the patient was intubated. Urology, Dr. Vargas, was consulted earlier in the day. He was able to successfully perform a reduction of the paraphimosis. Telemetry Course: Patient was admitted to telemetry for further workup and management of sepsis of unknown source, with concern for meningitis. Empiric broad-spectrum antibiotic and antiviral therapy were started, consisting of ceftriaxone 2g IV twice daily, vancomycin (pharmacy to dose), ampicillin, and acyclovir. Neurology was consulted. CT of the orbit, sella, and inner ear was ordered given the patient?s history of acute mastoiditis, which showed severe bilateral chronic mastoiditis, bilateral otitis externa, bilateral otitis media, and bilateral cholesteatomas in the attics. CT head was also performed and was negative for acute hemorrhage, mass effect, or midline shift. Findings included prominent sphenoid, ethmoid, and maxillary antral sinusitis, bilateral chronic mastoiditis, bilateral otitis media, and opacification in the bilateral attics. For the patient?s seizures, his home medications of valproic acid and levetiracetam were restarted. Orders for midazolam and Haldol were placed as needed for breakthrough seizures and agitation. An ice pack was ordered for his paraphimosis. Infectious disease was also consulted. History of Present Illness: 24-year-old male with a past medical history significant for cerebral palsy, asthma, seizure disorder, chronic mastoiditis (previously treated with tympanostomy tube placement for recurrent otitis media, now removed), recurrent pneumonia, and chronic PEG tube dependence, presented to the ED on 05/08/2025 with a fever lasting over 24 hours. The patient also had a witnessed seizure episode lasting 5-10 seconds, characterized by tonic-clonic activity confined to the left side of the body. ED Course: -Initial vitals were: BP 122/84, HR 176, RR 26, T 105F, O2 sat 96% on room air. -Labs significant for: CBC showed a WBC of 16.3. CMP showed Na 148, K 5.2, Cl 107, bicarbonate 18.7, anion gap 22, creatinine 1.3 (baseline 0.7), lactic acid 3.2, alkaline phosphatase 120, LDH 352, total CK 1048, procalcitonin: 0.14. Urinalysis negative. Influenza A/B testing was negative. -Imaging included: EKG showed supraventricular tachycardia of HR [address] and T-wave abnormality. CXR showed no aspiration pneumonia but was noted to be of poor inspiratory effort. CT CAP w/o contrast seemed to show no gross infiltrates or other notable findings but was noted to be severely degraded by patient motion. -In the ED, patient was given acetaminophen 975 mg, ceftriaxone 1 gram IV, midazolam 2 mg IV x1, albuterol 2.5 mg, Zosyn 3.375 gram, 2 L NS fluid infusion, and 1 L LR fluid infusion. In the ED, the patient was agitated and pulled out his IV. Attempts at peripheral access were unsuccessful, and a right femoral central line was placed. Exam Vital Signs Temp Pulse Resp BP Pulse Ox O2 Del Method O2 Flow Rate 97.3 F 103 H 17 116/72 99 Mechanical Ventilation 35 05/24/25 08:00 05/24/25 10:23 05/24/25 06:31 05/24/25 09:00 05/24/25 10:23 05/23/25 20:40 05/16/25 12:00 FiO2 30 05/24/25 10:23 Narrative Exam Physical Exam General: sedated and intubated, nonverbal at baseline, not in acute distress. RASS score -4 (no response to voice, but movement to noxious stimuli). Head: Normocephalic, atraumatic. Eyes: PERRL. Anicteric. Bilateral lateral eye scleral hemorrhage. Mouth/Throat: Poor dentition. Oral mucosa moist with excessive secretions. ETT in place. Cardiovascular: no murmur. Sinus tachycardia. Respiratory: Rhonchi to auscultation in bilateral lung thompson, improved Gastrointestinal: PEG tube in place, site is clean, dry and intact. Soft, no guarding or rebound tenderness. Extremities: Contracted and swollen hands. No LE edema, cyanosis, mottling, clubbing. 2+ radial pulse bilaterally, 2+ posterior tibial pulse bilaterally. Objective Labs 05/24/25 04:30 05/24/25 04:30 Labs: Laboratory Results - last 24 hr 05/19/25 05/24/25 04:20 04:30 WBC 6.6 RBC 2.94 L Hgb 8.2 L Hct 25.3 L MCV 86 MCH 27.9 MCHC 32.4 RDW Std Deviation 45.6 H Plt Count 489 H D Neut % (Auto) 46 Lymph % (Auto) 26 [place]umpkin % (Auto) 17 H Eos % (Auto) 9 Baso % (Auto) 1 Neut # (Auto) 3.0 Lymph # (Auto) 1.7 [place]umpkin # (Auto) 1.1 H Eos # (Auto) 0.6 H Baso # (Auto) 0.1 Immature Gran # (Auto) 0.07 H Absolute Nucleated RBC 0.00 Immature Gran % 1 H Nucleated RBC % 0 Sodium 138 Potassium 4.2 Chloride 100 Carbon Dioxide 24.9 Anion Gap 13 BUN 19 Creatinine 0.5 L Estim Creat Clear Calc 182.7 eGFR > 60 BUN/Creatinine Ratio 38 H Glucose 105 Calculated Osmolality 277 Calcium 9.2 Corrected Calcium 9.5 Phosphorus 6.7 H Magnesium 1.9 Total Bilirubin 0.2 L AST 35 H ALT 52 H Alkaline Phosphatase 99 Total Protein 6.2 Albumin 3.6 Globulin 2.6 Albumin/Globulin Ratio 1.4 CMV IgG Ab 3.90 H CMV IgM Ab <30.00 EBV Capsid Ag IgG Ab 417.00 H EBV Capsid Ag IgM Ab <36.00 EBV Nuclear Ag IgG Ab 49.30 H EBV Antibody Interp PAST ABG Interpretation ABG results: 05/09/25 05/09/25 05/09/25 11:56 13:40 18:50 ABG pH 7.40 7.27 L D 7.28 L ABG pCO2 40 43 55 H D ABG pO2 131 H 53 L* D 70 L ABG HCO3 25 20 26 ABG O2 Saturation 99 H 81 L 92 ABG Base Excess 0 -7 L -2 05/10/25 05/11/25 05/12/25 00:14 05:06 01:18 ABG pH 7.35 7.33 L 7.39 ABG pCO2 42 D 54 H D 48 ABG pO2 103 D 93 94 ABG HCO3 23 28 H 29 H ABG O2 Saturation 99 H 98 98 ABG Base Excess -3 2 3 05/12/25 05/12/25 05/13/25 03:58 11:50 05:10 ABG pH 7.46 H 7.39 7.19 L* D ABG pCO2 41 48 60 H D ABG pO2 105 58 L* D 114 H D ABG HCO3 29 H 29 H 23 ABG O2 Saturation 99 H 90 L 98 ABG Base Excess 5 H 4 H -6 L 05/17/25 05/18/25 05/19/25 01:30 04:09 04:43 ABG pH 7.38 7.43 7.47 H ABG pCO2 46 44 43 ABG pO2 90 83 80 L ABG HCO3 27 H 29 H 31 H ABG O2 Saturation 98 97 97 ABG Base Excess 2 5 H 7 H 05/21/25 05/21/25 04:18 06:33 ABG pH 7.37 D 7.46 H ABG pCO2 50 H 38 D ABG pO2 40 L* D 121 H D ABG HCO3 29 H 27 H ABG O2 Saturation 66 L 100 H ABG Base Excess 3 3 Quality Measures Quality Measures VTE prophylaxis (SCDs) and sepsis Current suspected stage: sepsis Possible source: pulmonary Blood cultures ordered: yes Antibiotic ordered: Yes Assessment & Plan Assessment Current Active Medications: Generic Name Dose Route Start Last Admin Trade Name Freq PRN Reason Stop Dose Admin Albuterol/Ipratropium 3 ml 05/09/25 18:19 05/20/25 01:36 Albuterol/Ipratropium (Duoneb) Rt Racquel 3 Ml Nebu INH 06/08/25 18:18 3 ml Q2HR PRN Administration SHORTNESS OF BREATH OR WHEEZE Calcium Carbonate 600 mg 05/20/25 18:20 05/24/25 09:03 Calcium Carbonate 600 Mg Tablet GT 06/19/25 18:19 600 mg QDAY KYA Administration Clonazepam 2 mg 05/23/25 21:00 05/24/25 09:02 Clonazepam 0.5 Mg Tablet PO 05/28/25 20:59 2 mg BID KYA Administration Enoxaparin Sodium 40 mg 05/23/25 11:15 05/24/25 09:05 Enoxaparin Sod Inj 40 Mg/0.4 Ml Syringe SC 06/06/25 11:14 40 mg QDAY KYA Administration Valproic Acid 187.5 mg/ Sodium 51.875 mls @ 51.875 mls/hr 05/09/25 18:00 05/24/25 13:10 Chloride IV 06/07/25 17:59 51.875 mls/hr Q6HR KYA Administration Protocol Propofol 1,000 mg in 100 mls @ 2.103 mls/hr 05/13/25 04:16 05/24/25 11:06 Diprivan Ivpb IV 06/12/25 04:15 45 mcg/kg/min .Q24H PRN 18.927 mls/hr PER PROTOCOL Administration Protocol 5 MCG/KG/MIN Fentanyl Citrate 2,500 mcg in 250 mls @ 2.5 mls/hr 05/23/25 11:38 05/24/25 12:00 Sublimaze Inj 2,500 Mcg/250 Ml Bag IV 05/28/25 08:44 175 mcg/hr .Q24H PRN 17.5 mls/hr PER PROTOCOL Titration Protocol 25 MCG/HR Meropenem 1,000 mg/ Sodium 50 mls @ 100 mls/hr 05/24/25 14:00 05/24/25 13:10 Chloride IV 05/31/25 13:59 100 mls/hr Q8HR KYA Administration Levetiracetam 1,000 mg 05/20/25 21:00 05/24/25 08:58 Levetiracetam Inj 100 Mg/Ml Vial 5ml IV 06/19/25 20:59 1,000 mg BID KYA Administration Midazolam HCl 4 mg 05/22/25 17:56 05/23/25 12:06 Midazolam Inj 1 Mg/Ml Vial 2 Ml IVP 05/26/25 09:47 4 mg Q5MIN PRN Administration seizures or agitation Ofloxacin 5 drop 05/21/25 14:45 05/24/25 09:05 Ofloxacin Op Racquel 0.3% 5 Ml Btl BOTH EARS 05/31/25 14:44 5 drops BID KYA Administration Ondansetron HCl 4 mg 05/08/25 11:36 Ondansetron Inj 2 Mg/Ml Inj 2 Ml IVP 06/07/25 11:35 Q6HR PRN NAUSEA OR VOMITING Protocol Oxycodone HCl 10 mg 05/24/25 12:00 Oxycodone Hcl 5 Mg Ir Tab PO 05/29/25 09:59 TID KYA Pantoprazole Sodium 40 mg 05/24/25 09:00 05/24/25 09:00 Pantoprazole Inj 40 Mg Vial IVP 06/23/25 08:59 40 mg QDAY KYA Administration Phenobarbital 259.2 mg 05/23/25 11:30 05/24/25 13:09 Phenobarbital 32.4 Mg Tablet GT 06/06/25 11:29 259.2 mg Q6HR KYA Administration Polyethylene Glycol 17 gm 05/16/25 09:15 05/24/25 09:03 Polyethylene Glycol 17 Gm Packet PO 06/15/25 09:14 17 gm QDAY KYA Administration Sevelamer Carbonate 800 mg 05/23/25 08:00 05/24/25 13:10 Sevelamer Carbonate 800 Mg Tablet GT 06/22/25 07:59 800 mg TIDWM KYA Administration Sodium Chloride 3 ml 05/17/25 11:43 Sodium Chloride Rt Racquel 0.9% 3 Ml Nebu INH 06/16/25 11:42 PRN PRN SOLN Plan 24-year-old male with cerebral palsy, asthma, seizure disorder, chronic mastoiditis, recurrent pneumonia, and chronic PEG tube dependence presented with fever and seizure, was admitted for sepsis workup, and later transferred to the ICU for intubation due to concerns about airway protection. Neurology #Agitated delerium Patient was extremely agitated before ICU admission, likely due to pain from paraphimosis. Patient initially sedated with propofol and fentanyl, titrated to Precedex with Benadryl before extubation. Patient failed extubation and was intubated on 05/12. Propofol and fentanyl was restarted. Diagnostic Test: - 05/24 AM: RASS was -4, no response to voice but movement to physical stimuli. - EEG did not show seizure activity per neurology - MRI brain showed chronic infections, no acute pathology Treatment Review (completed) - Versad 5mg/h was tapered off on 05/15. - Midazolam 4mg --> 8mg gtt 05/18-05/19. - Oxycodone 10mg GT TID 05/17- Treatment Plan: - Phenobarbital 260 mg Q6H. - Clonazepam 2mg BID. - Fentanyl and Propofol, titrate as tolerated - Wean off propofol as TG at 385. - Versad 4mg PRN if patient starts to get agitated. - If continues to be on Propofol, recheck TG on 05/26 (every 72 hours). - Neurology consulted, appreciate recommendations #History of seizures #Cerebral palsy Diagnosis: - Temperature of 105F on admission. - EEG 05/11 unremarkable - Repeat EEG 05/20: electrographic seizure activity. - Persistent fever spikes. - Continuous EEG 05/22-05/23: no seizure activity or status epilepticus. Treatment Plan: - Levetiracetam 1000 mg BID. - Valproic acid 187.5 mg Q6H. - Adjust seizure medications if breakthrough seizures persist. - Seizure precautions. - Aspiration precautions. Cardiovascular #Sinus tachycardia DDx: fevers vs hypersympathetic activity. Diagnostic Test: - Fever spikes associated with tachycardia, tachypnea Treatment Plan: - No specific treatment required at this time. Infectious disease workup remains unrevealing. Unsure of the cause of fever spikes which are associated with tachycardia and tachypnea. - Continue close cardiac monitoring. - Monitor electrolytes and replete as needed. - Maintain Mg > 2 and K > 4 to reduce arrhythmia risk. Respiratory #Failed extubation 05/12 #Acute hypoxic respiratory failure Diagnostic Test: - CXR 05/11: Mild bilateral perihilar pneumonia. To assess for ventilator associated pneumonia. Not much change from 05/09 CXR. - Resistant Pseudomonas from ETT secretions previously (05/09). - CXR 05/19: Significant bilateral pneumonia. Treatment Review (completed): - Patient extubated to [facility] 05/12, chest film with centro-bronchovascular congestion and multifocal pneumonia. - Reintubated overnight 05/13- VC/AC PPeak 20 PEEP 5 FiO2 40%. - Patient underwent bronchoscopy on 05/14 and 05/17 for secretions, well tolerated. - Meropenem (05/12-05/17, 05/19-05/22, for a total of ten days). - Meropenem reinitiated for extended course for chronic sinusitis Treatment Plan: - Sputum culture pending - Bronchoscopy fungal culture pending. - Chest physiotherapy PRN. - Given the patient's current condition, including severe tachycardia and excessive secretions, he is not considered a suitable candidate for extubation at this time. Therefore, mechanical ventilation will be continued to support respiratory status. - Continue MV settings: PEEP 6.0, Ppeak 24.4, Pplateau 12.4. - Conversations had with family regarding patient's respiratory status, agreed to tracheostomy - General Surgery consulted for tracheostomy #Bronchospasm #History of asthma Diagnostic Test: - Although the patient has a history of asthma, the bronchospasm is most likely from the irritant effect of blood in the airway. A small amount of blood, which was likely from dryness of the nasal mucosa, was suctioned out during intubation. Treatment Plan: - Magnesium for bronchodilator effect as needed. - Albuterol and Ipratropium as needed. GI, , F/E/N #Chronic PEG tube dependence Treatment Plan: - Jevity 1.5 at 40 ml/hr x 24 hrs via PEG tube by pump (goal). If no IV fluids, water flushes of 35 ml/hr. - ProStat 30ml BID via PEG tube. - Appreciate hay rake operator recommendations. . - Triglyceride level 05/14 - 290; 05/17 - 312; 05/20 - 221. - Repeat TG levels every 72 hours when on Propofol, which should be discontinued if triglyceride levels reach or exceed 400 mg/dL to prevent hypertriglyceridemia-associated complications. - Next check 05/26 is patient remains on Propofol. #Hepatitis (downtrending) Likely due to meropenem or tylenol that could potentially cause hepatotoxicity. Diagnostic Test: - Gallbladder ultrasound 05/16: Normal gallbladder, no gallstones. Fatty infiltration throughout the liver. - Lipase 05/16: 41 wnl. Treatment Plan: - Continue daily LFTs. - Avoid acetaminophen unless fever exceeds 101.0?F or Ibuprofen as alternative. - Will reassess if transaminases continue to rise or clinical status changes. #Acute urinary retention (resolved) Treatment Plan - Monitor urine output, replace fluid if needed. - Hawkins removed 05/23 - Every 4 hour bladder scan and straight cath as needed, has not yet been needed #Hypoalbuminemia (resolved) Likely due to acute hepatitis Diagnostic Test: - UA had urine proteins 1+. - Albumin 4.9 -->3.3 -->2.8 --> 3.2 --> 3.4 --> 2.8 --> 2.5. Treatment Plan: - Monitor LFTs, INR, and bilirubin. - Maintain on PEG tube feeds per hay rake operator recommendations. #Paraphimosis (resolved) #Balanitis (resolved) Diagnostic Test: - Edema and tenderness of the glans penis. - Swelling of the distal retracted foreskin. - Constricting band of tissue proximal to the head of the penis at the coronal sulcus. - Hawkins was removed on 05/09 and transitioned to Oivi external urinary catheter. Discussed with family about the need to reinsert hawkins due to the patient's acute urinary retention. Family were in agreement with this plan. Hawkins was reinserted on 05/10 due to urinary retention. Hawkins changed and replaced on 05/16. - S/p reduction of the paraphimosis by Dr. Vargas on 05/09. Treatment Plan: - Control patient's pain with sedation. - Monitor urine output. Renal #Hyperkalemia (resolved) #Hyperphosphatemia DDx: acute kidney injury vs hemolysis vs rhabdomyolysis. Diagnostic Test: - Potassium 5.2. - Phosphorus 6.7 - CK 363. - LDH 350. - Uric acid 3.5. - Hemoglobin 8.8. - Cr 0.6. Treatment Plan: - Monitor BMP and phosphorus. - Monitor potassium levels to avoid arrhythmias. - Subdominant 800 milligram GT 3 times daily, will adjust if needed #Acute kidney injury (resolved) DDx: dehydration or vasodilation from sepsis. Diagnositc Test: - Creatinine 1.3 (baseline: 0.7) Treatment Plan: - Continue with free water flushes. - Daily renal panel to trend BUN, Cr, and electrolytes. - Avoid nephrotoxins. - Renally dose meds as appropriate. - Strict I&Os, monitor urine output closely. - Monitor for signs of volume overload or uremic symptoms. #Anion Gap Metabolic Acidosis (resolved) #Lactic acidosis (resolved) DDx: seizures vs sepsis vs acute kidney injury vs hypoperfusion. Likely from seizures as patient has no signs of systemic hypoperfusion such as skin mottling, decreased cap refills. Diagnostic Test: - Admission anion gap 22, lactic acid 16.0, bicarbonate 18.7. Treatment Plan: - Recheck LA as needed. #Rhabdomyolysis (resolved) DDx: seizures vs hyperthermia vs infectious myositis. Diagnostic Test: - CK 1048 --> 3743 --> 1654 --> 338 --> 363. - Witnessed seizure episode lasting 5-10 seconds, characterized by tonic-clonic activity prior to admission. Treatment Plan: - Continue free water flushes at 35 cc/hr. - Monitor urine output. - Correct electrolyte abnormalities. - Control seizures with valproic acid and levetiracetam. - Monitor renal panel. Heme #Acute nonocclusive thrombus in the left brachial vein Diagnostic Test: - Venous doppler study of upper extremities 05/16: Normal right upper extremity deep venous system. Positive for nonocclusive thrombus in the left brachial vein. - Per chart review and patient's parents, patient does not have history of clots. Treatment Review (completed): - Lovenox 30 mg (05-11 - 05/15). - Lovenox 40 mg (05/16). - Heparin loading dose and ggt. Lovenox to heparin due to heparin?s shorter half-life, which allows for more rapid cessation in the event of bleeding, a shorter half life and can be stopped if bleeding occurs. - Stopped heparin ggt due to hematuria on 05/18. Treatment Plan: - Started Lovenox 40 mg SC QD. - Primary upper extremity deep vein thrombosis, anticoagulation should be continued for a minimum of three months following the initial thrombotic event. #Normocytic Anemia DDx: Anemia of Inflammation vs dilutional anemia vs drug-induced anemia. Likely dilutional anemia since patient had normal hemoglobin on admission and from IV fluids per sepsis protocol. No signs of bleeding. Diagnostic Test: - Hemoglobin 8.2 Treatment Plan: - Monitor H&H. - Type and screen. - Transfusing for Hgb <7 or symptomatic. #Thrombocytosis DDx: infection vs reactive Diagnostic Test: - Plt 752. Treatment Plan: - Monitor CMP. #Leukocytosis (resolved) DDx: likely due to bronchoscopy vs infection of unknown source vs drug induced Diagnostic Test: - Continue to have fever spikes as high as 102.8?F. - Increase WBCs 8.9 --> 11.1 after bronchoscopy on 05/14. - Increase WBCs 14.7 --> 16.1 after bronchoscopy on 05/17. Treatment Plan: - Treat underlying cause. #Thrombocytopenia (resolved) DDx: Dilutional versus consumption versus increased destruction due to sepsis. Initial decrease is likely due to dilutional in setting of IV fluids, however his WBC and hemoglobin have leveled off platelets have down trended. Diagnostic test: - Platelets: 209 --> 65-->141. Treatment plan: - Monitor daily labs - Avoid excessive oral tracheal suctioning in setting of previous bleed and thrombocytopenia. Endo #no active problems ID #Sepsis #Bilateral chronic mastoiditis #Sinusitis #Bilateral otitis media #Bilateral otitis externa DDx: meningitis vs acute on chronic mastoiditis vs acute febrile illness. Diagnostic Test: - History of chronic mastoiditis. - Met SIRS criteria on admission: T 105F, HR 176, RR 26, PaCO2 26, WBC 16.3. - 05/08 Lactic acid 16.0. - 05/08 CT Head: prominent sphenoid ethmoid maxillary antral sinusitis, bilateral chronic mastoiditis, bilateral otitis media. - 05/08 CT Orbit Sella Inner: severe bilateral chronic mastoiditis, bilateral otitis externa and otitis media, bilateral cholesteatomas in the attics. - 05/08 MRSA screen negative. - 05/09 Sputum culture: 1+ thurman resistance Pseudomonas. - 05/10 Lumbar puncture: clear, WBC 3, glucose 70, total protein 25. CSF testing negative. - 05/10 Respiratory viral panel: rhinovirus/enterovirus and human metapneumovirus detected. - 05/12 Bilateral ear culture: E coli ESBL. - UA 05/08 and 05/16 negative. - Blood culture 05/08, 05/11, and 05/16 negative. - 05/16 CTAP: Extensive bilateral pneumonia, cystitis pattern, cholelithiasis. - 05/16 CXR: worsening diffuse severe left lung pneumonia. - 05/16 CT Head: unremarkable. Treatment Review (completed) - Rocephin 2 gm IV q12HR [05/08-05/11]. - Vancomycin dosed by pharmacy [05/08-05/11] since MRSA screen is negative. - Acyclovir 700 mg IV [05/08-05/11] since LP negative. - Fluids: 30mL/kg -- 2 L NS fluid infusion and 1 L LR fluid infusion was given in the ED. - Femoral central line removed 05/11, replaced with peripheral access. - Meropenem 1 g IV every 8 hour, started 05/12, extended course for chronic sinusitis Treatment Plan: - Topical oxofloxacin. - Meropenem 1 g IV every 8 hours - Patient has limited options in terms of antibiotics in the future as meropenem is broad-spectrum. May have to consider ceftazidime or ceftaroline if he continues to develop recurrent infections. Integumentary #Maculopapular rash to the buttocks DDx: contact dermatitis vs allergic dermatitis Treatment Plan - Patient no longer has diaper on. Anticipate rash to improve. Health Maintenance DVT prophylaxis: SCDs, Levonox 40mg QD. GI prophylaxis: Protonix IV Diet: Jevity Hawkins: none. Straight cath in/out q4h if urine retention more than 400 ml Lines: Peripherals Drips: Propofol, fentanyl. Vent: MV, PPlat <30 and TV < 8 ml/kg IBW CODE STATUS: FULL CODE Patient plan of care was discussed with the attending physician, Dr. Baeza. Kamlesh Baer MD PGY?2
--- NOTE | 2025-05-24 13:42 | PC.SS ---
Update: Patient remains intubated. Sedation in place. PEG tube in place. Fever has been resolved. Patient on soft restraints. Patient receiving IV antibiotics and medication to address seizure.
--- NOTE | 2025-05-24 14:51 | PD.RESEVENT ---
Documentation for date of: 05/24/25 Event Note Event Note: Conversation was held with family regarding patient's prognosis and long-term care plan. Results of MRI were explained, with no clear intracranial pathology other than chronic sinusitis/mastoiditis. Explained that patient will be receiving an extended course of antibiotics. Also explained continued difficulty in weaning off sedation, and adjustments to treatment plan with goal of decreasing sedation gradually. It was explained that in setting of prolonged sedation and inability to successfully extubate patient, tracheostomy would be the safest management for patient to airway going forward. Risks and benefits of tracheostomy, as long as potential long-term outcomes, or explained to the family, expressed their understanding. Family agreed to tracheostomy. Conversation was carried out with help of medical record librarian Lizbeth TOVAR. Conversation witnessed by senior resident Dr. Orozco, PGY?3. Kamlesh Baer MD PGY?2
--- NOTE | 2025-05-24 15:36 | PC.CM ---
1510 I spoke to Lindy charge nurse and she states transfer has been canceled. I called [facility] and I let them know transfer request has been canceled. 1135 I called to speak to the doctor earlier today but they were in rounding. I reviewed MD notes and I see they stated there is no need for transfer because EEG did not show any seizures. I asked charge nurse to verify with MD that transfer has been canceled.
--- NOTE | 2025-05-24 16:58 | PD.RESPRO ---
Documentation for date of: 05/24/25 Subjective Subjective Interval history: Patient examined at bedside. Blood pressure 116/72, tachycardia 103, afebrile for past 24 hrs. MRI of brain only showed chronic infections, no acute intracranial pathology to explain underlying condition. Continue Keppra and Depakote. Plan to speak with family about re starting Austdo (deutetrabenazine) to help with agitation and dyskinetic movements. Patient had been on this medication in the past however family decided to dc it. They were concerned that this medication was worsening his symptoms. General surgery was consulted for tracheostomy. Exam Vital Signs Temp Pulse Resp BP Pulse Ox O2 Del Method O2 Flow Rate 96.8 F 83 17 105/46 L 100 Mechanical Ventilation 35 05/24/25 12:00 05/24/25 15:00 05/24/25 06:31 05/24/25 15:00 05/24/25 15:00 05/23/25 20:40 05/16/25 12:00 FiO2 30 05/24/25 14:30 Narrative Exam General: sedated and intubated, nonverbal at baseline, not in acute distress. RASS score -4 (no response to voice, but movement to noxious stimuli). Head: Normocephalic, atraumatic. Eyes: PERRL. Anicteric. Bilateral lateral eye scleral hemorrhage. Mouth/Throat: Poor dentition. Oral mucosa moist with excessive secretions. ETT in place. Cardiovascular: no murmur. Sinus tachycardia. Respiratory: Rhonchi to auscultation in bilateral lung thompson, improved Gastrointestinal: PEG tube in place, site is clean, dry and intact. Soft, no guarding or rebound tenderness. Extremities: Contracted and swollen hands. No LE edema, cyanosis, mottling, clubbing. 2+ radial pulse bilaterally, 2+ posterior tibial pulse bilaterally. Objective Labs 05/25/25 04:25 05/25/25 04:25 Labs: Laboratory Results - last 24 hr 05/19/25 05/24/25 04:20 04:30 WBC 6.6 RBC 2.94 L Hgb 8.2 L Hct 25.3 L MCV 86 MCH 27.9 MCHC 32.4 RDW Std Deviation 45.6 H Plt Count 489 H D Neut % (Auto) 46 Lymph % (Auto) 26 [place] % (Auto) 17 H Eos % (Auto) 9 Baso % (Auto) 1 Neut # (Auto) 3.0 Lymph # (Auto) 1.7 [place] # (Auto) 1.1 H Eos # (Auto) 0.6 H Baso # (Auto) 0.1 Immature Gran # (Auto) 0.07 H Absolute Nucleated RBC 0.00 Immature Gran % 1 H Nucleated RBC % 0 Sodium 138 Potassium 4.2 Chloride 100 Carbon Dioxide 24.9 Anion Gap 13 BUN 19 Creatinine 0.5 L Estim Creat Clear Calc 182.7 eGFR > 60 BUN/Creatinine Ratio 38 H Glucose 105 Calculated Osmolality 277 Calcium 9.2 Corrected Calcium 9.5 Phosphorus 6.7 H Magnesium 1.9 Total Bilirubin 0.2 L AST 35 H ALT 52 H Alkaline Phosphatase 99 Total Protein 6.2 Albumin 3.6 Globulin 2.6 Albumin/Globulin Ratio 1.4 CMV IgG Ab 3.90 H CMV IgM Ab <30.00 EBV Capsid Ag IgG Ab 417.00 H EBV Capsid Ag IgM Ab <36.00 EBV Nuclear Ag IgG Ab 49.30 H EBV Antibody Interp PAST ABG Interpretation ABG results: 05/09/25 05/09/25 05/09/25 11:56 13:40 18:50 ABG pH 7.40 7.27 L D 7.28 L ABG pCO2 40 43 55 H D ABG pO2 131 H 53 L* D 70 L ABG HCO3 25 20 26 ABG O2 Saturation 99 H 81 L 92 ABG Base Excess 0 -7 L -2 05/10/25 05/11/25 05/12/25 00:14 05:06 01:18 ABG pH 7.35 7.33 L 7.39 ABG pCO2 42 D 54 H D 48 ABG pO2 103 D 93 94 ABG HCO3 23 28 H 29 H ABG O2 Saturation 99 H 98 98 ABG Base Excess -3 2 3 05/12/25 05/12/25 05/13/25 03:58 11:50 05:10 ABG pH 7.46 H 7.39 7.19 L* D ABG pCO2 41 48 60 H D ABG pO2 105 58 L* D 114 H D ABG HCO3 29 H 29 H 23 ABG O2 Saturation 99 H 90 L 98 ABG Base Excess 5 H 4 H -6 L 05/17/25 05/18/25 05/19/25 01:30 04:09 04:43 ABG pH 7.38 7.43 7.47 H ABG pCO2 46 44 43 ABG pO2 90 83 80 L ABG HCO3 27 H 29 H 31 H ABG O2 Saturation 98 97 97 ABG Base Excess 2 5 H 7 H 05/21/25 05/21/25 04:18 06:33 ABG pH 7.37 D 7.46 H ABG pCO2 50 H 38 D ABG pO2 40 L* D 121 H D ABG HCO3 29 H 27 H ABG O2 Saturation 66 L 100 H ABG Base Excess 3 3 Quality Measures Quality Measures VTE prophylaxis (SCDs) and sepsis Current suspected stage: sepsis Possible source: pulmonary Blood cultures ordered: yes Antibiotic ordered: Yes Assessment & Plan Assessment Current Active Medications: Generic Name Dose Route Start Last Admin Trade Name Freq PRN Reason Stop Dose Admin Albuterol/Ipratropium 3 ml 05/09/25 18:19 05/20/25 01:36 Albuterol/Ipratropium (Duoneb) Rt Racquel 3 Ml Nebu INH 06/08/25 18:18 3 ml Q2HR PRN Administration SHORTNESS OF BREATH OR WHEEZE Calcium Carbonate 600 mg 05/20/25 18:20 05/24/25 09:03 Calcium Carbonate 600 Mg Tablet GT 06/19/25 18:19 600 mg QDAY KYA Administration Clonazepam 2 mg 05/23/25 21:00 05/24/25 09:02 Clonazepam 0.5 Mg Tablet PO 05/28/25 20:59 2 mg BID KYA Administration Enoxaparin Sodium 40 mg 05/23/25 11:15 05/24/25 09:05 Enoxaparin Sod Inj 40 Mg/0.4 Ml Syringe SC 06/06/25 11:14 40 mg QDAY KYA Administration Valproic Acid 187.5 mg/ Sodium 51.875 mls @ 51.875 mls/hr 05/09/25 18:00 05/24/25 13:10 Chloride IV 06/07/25 17:59 51.875 mls/hr Q6HR KYA Administration Protocol Propofol 1,000 mg in 100 mls @ 2.103 mls/hr 05/13/25 04:16 05/24/25 15:00 Diprivan Ivpb IV 06/12/25 04:15 40 mcg/kg/min .Q24H PRN 16.824 mls/hr PER PROTOCOL Titration Protocol 5 MCG/KG/MIN Fentanyl Citrate 2,500 mcg in 250 mls @ 2.5 mls/hr 05/23/25 11:38 05/24/25 15:00 Sublimaze Inj 2,500 Mcg/250 Ml Bag IV 05/28/25 08:44 125 mcg/hr .Q24H PRN 12.5 mls/hr PER PROTOCOL Titration Protocol 25 MCG/HR Meropenem 1,000 mg/ Sodium 50 mls @ 100 mls/hr 05/24/25 14:00 05/24/25 13:10 Chloride IV 05/31/25 13:59 100 mls/hr Q8HR KYA Administration Levetiracetam 1,000 mg 05/20/25 21:00 05/24/25 08:58 Levetiracetam Inj 100 Mg/Ml Vial 5ml IV 06/19/25 20:59 1,000 mg BID KYA Administration Midazolam HCl 4 mg 05/22/25 17:56 05/23/25 12:06 Midazolam Inj 1 Mg/Ml Vial 2 Ml IVP 05/26/25 09:47 4 mg Q5MIN PRN Administration seizures or agitation Ofloxacin 5 drop 05/21/25 14:45 05/24/25 09:05 Ofloxacin Op Racquel 0.3% 5 Ml Btl BOTH EARS 05/31/25 14:44 5 drops BID KYA Administration Ondansetron HCl 4 mg 05/08/25 11:36 Ondansetron Inj 2 Mg/Ml Inj 2 Ml IVP 06/07/25 11:35 Q6HR PRN NAUSEA OR VOMITING Protocol Oxycodone HCl 10 mg 05/24/25 12:00 05/24/25 14:39 Oxycodone Hcl 5 Mg Ir Tab PO 05/29/25 09:59 10 mg TID KYA Administration Pantoprazole Sodium 40 mg 05/24/25 09:00 05/24/25 09:00 Pantoprazole Inj 40 Mg Vial IVP 06/23/25 08:59 40 mg QDAY KYA Administration Phenobarbital 259.2 mg 05/23/25 11:30 05/24/25 13:09 Phenobarbital 32.4 Mg Tablet GT 06/06/25 11:29 259.2 mg Q6HR KYA Administration Polyethylene Glycol 17 gm 05/16/25 09:15 05/24/25 09:03 Polyethylene Glycol 17 Gm Packet PO 06/15/25 09:14 17 gm QDAY KYA Administration Sevelamer Carbonate 800 mg 05/23/25 08:00 05/24/25 13:10 Sevelamer Carbonate 800 Mg Tablet GT 06/22/25 07:59 800 mg TIDWM KYA Administration Sodium Chloride 3 ml 05/17/25 11:43 Sodium Chloride Rt Racquel 0.9% 3 Ml Nebu INH 06/16/25 11:42 PRN PRN SOLN Plan David Baltazar is 24 yr male with PMH of chronic mastoiditis (previously had tympanostomy tube placed for recurrent otitis media, now removed), seizure disorder, recurrent pneumonia, cerebral palsy, chronic PEG tube, and asthma who was brought into ED on 05/08/25 for ongoing fever of over 24 hours and reported episode of witnessed seizure by ED. Patient was septic. Neurology was consulted to for LP to rule out meningitis. #Mastoiditis #rule out Meningitis #Tonic clonic seizure #Hx seizures #Cerebral palsy LP culture was negative: clear, WBC 3, glucose 70, total protein 25. CSF Streptococcus pneumonia Ag negative , Streptococcus B antigen negative. CSF Neisseria meningitis B/E.coli K1 negative, Neisseria meningitis ACY/W135 Ag negative. CSF haemophilus influenzae B Ag negative. MRSA screen negative. Sputum culture thurman resistant Pseudomonas Repeat EEG was negative for seizure-like activity. -continue IV Keppra and Depakote -seizure precautions -midazolam for breakthrough seizure -Plan to speak with family about re starting Austdo (deutetrabenazine) to help with agitation and dyskinetic movements. -general surgery consulted for tracheostomy #Paraphimosis #Acute Kidney Injury ##Lactic acidosis #Elevated total creatine kinase from his hyperkinetic movements #Normocytic Anemia Primary care team to manage above conditions and ongoing care needs. The patient's management plan was discussed with my attending physician Dr. Lang. Zakiya Delacruz, PGY-2 Attending Provider Attestation/Addendum I personally have seen and examined the patient at the bedside and agreed with resident findings, assessment and plan of care. EEG showed diffuse slowing and alpha rhythm in both temporal areas which could be seen in some patients with temporal lobe epilepsy. Continue with aggressive antiepileptic drug therapy follow-up with levels of Depakote make sure that it is therapeutic. If there is recurrence of fever or persistent altered mental status with the hemodynamic changes, we will consider doing repeat lumbar puncture to evaluate further. Also discussed with the patient's family regarding addition of Austedo or valbenazine for dyskinesias as he gets weaned off from sedation with recurrence of abnormal involuntary movements.
[2025-05-24] MEDS: fentaNYL 2,500 MCG/250 ML BAG 2,500 MCG/250 ML BAG 7.5 MCG IV (20:33)
[2025-05-24] MEDS: guaiFENesin SYRUP 200 MG/10 ML UDC GT (20:54)
[2025-05-24] MEDS: PROPOFOL 1,000 MG IVPB 1,000 MG/100 ML VIAL 21.03 MG IV (21:50)
[2025-05-24] MEDS: IBUPROFEN SUSP 100 MG/5 ML UDC GT (22:26)
[2025-05-25] VITALS (32 sets, daily range): BP systolic 86–142; BP diastolic 22–97; PULSE 84–143; RESP 18–34; TEMP 36.2–38.3; O2SAT 93–100; BMI 30.4
[2025-05-25] MEDS: PROPOFOL 1,000 MG IVPB 1,000 MG/100 ML VIAL 21.03 MG IV ×5 (01:49→23:05)
[2025-05-25] MEDS: MEROPENEM INJ 1,000 MG in SODIUM CHLORIDE 0.9% (Popper) 50 ML 100 MG IV (05:33)
[2025-05-25] MEDS: oxyCODONE HCL 5 MG IR TAB 10 MG PO ×3 (05:33→21:11)
[2025-05-25 06:03] LABS: Basophils # (Auto) 0.0 Thou/mm3 (0.0-0.2); Basophils % (Auto) 0 % (0-2.5); Eosinophils # (Auto) 0.1 Thou/mm3 (0.0-0.5); Eosinophils % (Auto) 1 % (0-10); Hematocrit 29.9 % (41.0-53.0); Hemoglobin 9.8 g/dL (13.5-16.0); Immature Granulocytes Auto 0.06 Thou/mm3 (0.00-0.00); Lymphocytes # (Auto) 1.8 Thou/mm3 (1.0-4.8); Lymphocytes % (Auto) 19 % (10-50); Mean Corpuscular HGB Conc 32.8 g/dl (31.0-37.0); Mean Corpuscular Hemoglobin 27.9 pg (25.0-35.0); Mean Corpuscular Volume 85 fL (80-100); Monocytes # (Auto) 0.7 Thou/mm3 (0.0-0.8); Monocytes % (Auto) 8 % (0-12); Neutrophils # (Auto) 6.6 Thou/mm3 (1.8-7.7); Neutrophils % (Auto) 71 % (37-80); Nucleated Red Blood Cell # 0.00 Thou/mm3 (0.00-0.00); Nucleated Red Blood Cell % 0 /100 WBC (0); Platelet Count 630 Thou/mm3 (140-440); RDW Standard Deviation 46.2 fL (35.1-43.9); Red Blood Count 3.51 Miln/mm3 (4.50-5.90); White Blood Count 9.3 Thou/mm3 (3.8-10.6)
[2025-05-25 06:34] LABS: Alanine Aminotransferase 47 U/L (10-49); Albumin, Serum 4.0 gm/dL (3.5-5.0); Albumin/Globulin Ratio 1.3 (1.2-2.2); Alkaline Phosphatase 136 U/L (46-116); Anion Gap 14 (7-16); Aspartate Amino Transferase 37 U/L (0-34); BUN/Creatinine Ratio 28 Ratio (12-20); Bilirubin,Total 0.3 mg/dL (0.3-1.2); Blood Urea Nitrogen 17 mg/dL (9-23); Calcium 9.4 mg/dL (8.3-10.6); Calcium (Corrected) 9.4 mg/dL (8.5-10.1); Carbon Dioxide 22.6 mMol/L (20.0-31.0); Chloride 100 mMol/L (98-107); Creatinine (Component) 0.6 mg/dL (0.6-1.3); Estimated Creatinine Clearance 152.3 mL/min (>60); Globulin 3.0 gm/dL (2.3-3.5); Glucose 106 mg/dL (74-106); Magnesium 1.8 mg/dL (1.6-2.6); Osmolality,Calculated 275 (275-295); Phosphorous 6.6 mg/dL (2.4-5.1); Potassium 4.8 mMol/L (3.4-5.1); Sodium 137 mMol/L (136-145); Total Protein 7.0 gm/dL (5.7-8.2); eGFR > 60 See Note
--- NOTE | 2025-05-25 07:45 | PD.IDPROG ---
Subjective Subjective Interval history: off abx now. 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 father at bedside. seems upset. 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 procal mostly neg in past and currently Objective - Internal Medicine Labs 05/25/25 04:25 05/25/25 04:25 Labs: Laboratory Results - last 24 hr 05/25/25 04:25 WBC 9.3 D RBC 3.51 L Hgb 9.8 L Hct 29.9 L MCV 85 MCH 27.9 MCHC 32.8 RDW Std Deviation 46.2 H Plt Count 630 H D Neut % (Auto) 71 Lymph % (Auto) 19 [place] % (Auto) 8 Eos % (Auto) 1 Baso % (Auto) 0 Neut # (Auto) 6.6 Lymph # (Auto) 1.8 [place] # (Auto) 0.7 Eos # (Auto) 0.1 Baso # (Auto) 0.0 Immature Gran # (Auto) 0.06 H Absolute Nucleated RBC 0.00 Immature Gran % 1 H Nucleated RBC % 0 Sodium 137 Potassium 4.8 D Chloride 100 Carbon Dioxide 22.6 Anion Gap 14 BUN 17 Creatinine 0.6 Estim Creat Clear Calc 152.3 eGFR > 60 BUN/Creatinine Ratio 28 H Glucose 106 Calculated Osmolality 275 Calcium 9.4 Corrected Calcium 9.4 Phosphorus 6.6 H Magnesium 1.8 Total Bilirubin 0.3 AST 37 H ALT 47 Alkaline Phosphatase 136 H D Total Protein 7.0 Albumin 4.0 Globulin 3.0 Albumin/Globulin Ratio 1.3 ABG Interpretation ABG results: 05/09/25 05/09/25 05/09/25 11:56 13:40 18:50 ABG pH 7.40 7.27 L D 7.28 L ABG pCO2 40 43 55 H D ABG pO2 131 H 53 L* D 70 L ABG HCO3 25 20 26 ABG O2 Saturation 99 H 81 L 92 ABG Base Excess 0 -7 L -2 05/10/25 05/11/25 05/12/25 00:14 05:06 01:18 ABG pH 7.35 7.33 L 7.39 ABG pCO2 42 D 54 H D 48 ABG pO2 103 D 93 94 ABG HCO3 23 28 H 29 H ABG O2 Saturation 99 H 98 98 ABG Base Excess -3 2 3 05/12/25 05/12/25 05/13/25 03:58 11:50 05:10 ABG pH 7.46 H 7.39 7.19 L* D ABG pCO2 41 48 60 H D ABG pO2 105 58 L* D 114 H D ABG HCO3 29 H 29 H 23 ABG O2 Saturation 99 H 90 L 98 ABG Base Excess 5 H 4 H -6 L 05/17/25 05/18/25 05/19/25 01:30 04:09 04:43 ABG pH 7.38 7.43 7.47 H ABG pCO2 46 44 43 ABG pO2 90 83 80 L ABG HCO3 27 H 29 H 31 H ABG O2 Saturation 98 97 97 ABG Base Excess 2 5 H 7 H 05/21/25 05/21/25 04:18 06:33 ABG pH 7.37 D 7.46 H ABG pCO2 50 H 38 D ABG pO2 40 L* D 121 H D ABG HCO3 29 H 27 H ABG O2 Saturation 66 L 100 H ABG Base Excess 3 3 Assessment & Plan A&P Narrative viral findings on pcr testing at health de[facility]. resp failure drug fever can be expected to last a few days if that is your working dx. I am ok with him off abx entirely. procal has mostly been neg for a long time now so value of more abx seems low. will check briefly friday. Time Spent With Patient Time: Total time spent is greater than 50% in coordination of care (as documented) at patient's floor/unit and/or counseling patient:
[2025-05-25 08:16] LABS: Procalcitonin 0.16 ng/ml (0.0-0.49)
[2025-05-25] MEDS: CALCIUM CARBONATE 600 MG TABLET GT (09:25)
[2025-05-25] MEDS: POLYETHYLENE GLYCOL 17 GM PACKET PO (09:25)
[2025-05-25] MEDS: levETIRAcetam INJ 100 MG/ML VIAL 5ML 1000 MG IV ×2 (09:25→20:31)
[2025-05-25] MEDS: SEVELAMER CARBONATE 800 MG TABLET GT ×3 (09:25→19:12)
[2025-05-25] MEDS: ENOXAPARIN SOD INJ 40 MG/0.4 ML SYRINGE SC (09:25)
--- NOTE | 2025-05-25 09:27 | ESPR_ITS ---
<Statement entered by Jeanine Baeza MD - 05/26/25 20:04> TOTAL TIME: 45MINUTES ON DIRECT MEDICAL CARE, MANAGEMENT - COORDINATION AND COUNSELING > 50% OF TOTAL TIME I saw and evaluated the patient. I reviewed the resident?s note and agree with findings and plan as documented in the resident?s note. stopped merrem no evid of lingering infx fevers coincide with sympathetic response adjusted sedation pending trach neurology is considering repeat LP no purulent secretions (ears/eyes/nose/ett) <Statement entered by Kamlesh Baer MD - 05/25/25 19:25> Patient seen and examined at bedside. I discussed and supervised with the software development intern physician who took care of this patient. I personally saw and examined the patient. I agree with most of the assessment and plan. Planning for tracheostomy tomorrow, will hold tube feeds and Lovenox at midnight. Per neurology, plan to repeat LP tomorrow to evaluate for potential changes. Started propranolol 10 3 times daily, will closely monitor vitals. Continuing to titrate propofol and fentanyl as tolerated. Repeat tox test ordered. Patient maintaining good urine output. Plan of care discussed with attending Dr. Baeza. Kamlesh Baer MD PGY-2 Documentation for date of: 05/25/25 Subjective Subjective Interval history: 05/25/2025: Overnight, patient experienced a fever spike of 101.9?F, for which Ibuprofen was administered. Propofol was increased to 50, while Fentanyl was maintained at 125. Urine output over the past 12 hours was 1500cc, with no bowel movement noted. Propranolol 10mg TID was started. Bladder scan every 4 hours to check for urinary retention, if >400cc then straight in and out catheter. Lovonex and tube feeds will be held at midnight in preparation for tomorrow's tracheostomy. Sputum culture grew 2+ yeast, speciation pending. A repeat Cocci serology test was ordered. 05/24/2025: No overnight events. Patient had consistent urine output without the need for straight catheterization. No fever spikes overnight. Remains difficult to titrate down sedatives. Oxycodone 10 mg 3 times daily via G-tube was initiated with goal reducing fentanyl drip. MRI of brain only showed chronic infections, no acute intracranial pathology to explain underlying condition. Resume meropenem due to possibility of resistant Pseudomonas causing sinusitis, will require extended course of antibiotics for completion of treatment. Spoke with family regarding tracheostomy, risks and benefits were explained, family expressed understanding and was agreeable to procedure. General surgery consulted for tracheostomy. 05/23/2025: A continuous EEG was placed at approximately 7:30 PM on 05/22. Overnight, the patient experienced two fever spikes, with a peak temperature of 101.1?F. Patient remained on Propofol 40 mcg/kg/min and Fentanyl 100 mcg/hr. Two doses of Versed were administered for agitation. Patient continues to have increased secretions.Patient had premature ventricular contractions the night before. Repeat labs showed potassium at 5.2, magnesium at 1.9, and phosphorous at 5.5 . Calcium gluconate, breathing treatment, 4 gram of magesium and sevelamer was given. EKG showed sinus tachycardia with QTc 426. Patient also developed acute urine retention, with a bladder scan showing 700 cc. A Hawkins catheter was inserted due to leakage from the previous catheter and noted post- void retention. Patient had approximately 2000 cc of urine output overnight. Since patient's output is more than his input, tube feed water flushes were increased from 45 to 55 cc. Patient had one bowel movement this morning. Hawkins was removed this morning, and straight cath in and out will continue if the patient continues to experience urinary retention. EEG was reviewed by Dr. Lang, who confirmed that there were no signs of status epilepticus or seizures. Plan to do MRI of the brain next. Increased phenobarbital and clonazepam doses. Will work on weaning down propofol as patient's triglycerides are 385. Heparin was switched to Lovenox. 05/22/2025: Overnight, the patient developed fever spikes, with the highest reaching 101?F. Cooling measures were ineffective, and Ibuprofen was administered. In response to the patient's condition, fentanyl was increased from 100 mcg to 150 mcg, and propofol was increased from 35 mcg to 40 mcg. Urine output over the past 12 hours was 1100 cc. Given the recurrence of fevers and signs of hypersympathetic activity, the phenobarbital dosage was increased to 130 mg every 6 hours, up from every 8 hours. C. diff PCR testing is pending for loose stools. The patient has been receiving Versed every 5 minutes for seizure- like activity until it resolves. The ICU team held an extensive discussion with the patient?s parents regarding the next steps, which include transferring the patient to a facility capable of continuous EEG monitoring while weaning off sedation, as the patient continues to experience persistent seizures. Last day of meropenem to complete 10 day course. 05/21/2025: Overnight, patient developed two fever spikes, with a maximum temperature of 102.6?F. Fevers were managed with Tylenol and cooling measures. Hawkins catheter was removed and replaced with a QiVi external catheter, with urine output of 1,650 cc over the past 12 hours. Propofol was increased from 30 to 35 mcg/kg/min due to agitation and the patient breathing over the ventilator, while fentanyl maintained at 150 mcg/hr. No bowel movement was reported overnight. Neurology agreed with gradual weaning of sedation as tolerated. EEG is scheduled for Friday, 05/23, and daily EEG monitoring is not required. Ear culture returned with Brittney, likely from normal hamilton from the ear swab. Ears were examed with otoscope. Right ear unremarkable. Left ear canal with clear liquid, like from ofloxacin ear drops. Reduced phenobarbital to 130 mg every 8 hours and clonazepam to 1mg BID. Versed 2 mg IV is available as needed for agitation. Continue meropenem. Fungal culture of ear culture grew Brittney, likely representing normal hamilton from the ear swab. Patient exhibited green penile discharge following hawkins removal. A chlamydia and gonorrhea test was ordered. Right arm is warm and tense to touch from IV infiltration, IV was removed and placed in distal part of the right forearm. 05/20/2025: Overnight, patient had a fever spike of 101.2F. Patient remained on Propofol 40 and Fentanyl 150 for sedation. Precedex was not needed for agitation. Urine output was 2800 cc in the past hours with no gross hematuria. No bowel movement. Patient?s phenobarbital dose was adjusted to 260 mg every 8 hours. Keppra dose was increased to 1000 mg twice daily as per the neurologist?s recommendation. An EEG revealed electrographic seizure activity. A repeat sputum culture was obtained due to contamination of the previous sample. Additionally, a gradual wean of propofol and fentanyl was initiated as tolerated. 05/19/2025: Overnight, patient had a fever spike of 102.2?F. Due to agitation, the Versed infusion was increased from 4 mg/gtt to 8mg/gtt. Patient was also receiving Propofol 30 and Fentanyl 150. Patient had one bowel movement and produced 1L of urine over the past 12 hours, with no evidence of gross hematuria. Versed 4 mg gtt was titrated up to 8mg gtt for patient's agitation. Patient was on Propofol 30 and Fentanyl 150. Patient had one bowel movement. Urine output was 1L in the past 12 hours with no gross hematuria. This morning, clonazepam 2 mg PO TID was initiated, Propofol infusion was increased to 50 mcg/kg/min, and fentanyl was maintained at 50 mcg/hr. The versed infusion was discontinued, and Meropenem was restarted to treat Pseudomonas pneumonia, since the patient continued to spike fevers despite discontinuation of the medication. Sputum culture and EEG will be repeated. Heparin was restarted for DVT PPX. 05/18/2025: Overnight, patient remained on Propofol 30 and Fentanyl 300, with Versed 2mg dose x1. Magnesium was given for bronchodilation. Ibuprofen given for fever. Plan was to wean off sedation and extubate the patient today, but due to significant oral secretions and concerns about potential aspiration and the patient's inability to protect the airway, the decision was made to keep the patient intubated for now. A spontaneous breathing trial was attempted, and the patient?s lungs are functioning well. However, given the ongoing agitation, sedation could not be reduced. Phenobarbital dose was increased from 130mg to 260mg every 6 hours, and a 4mg Versed drip was started. Olanzapine was discontinued, and both doxycycline and meropenem were stopped due to concerns of a potential drug reaction, as fever spikes worsened after the initiation of meropenem on 05/12. Heparin was restarted yesterday for a DVT in the left brachial vein but was discontinued this morning due to ongoing hematuria without clots. A follow-up Doppler will be performed in 2-3 days to assess whether the DVT has resolved. Patient?s urine output was 2240cc over the past 12 hours. Maintenance fluids were started at 100ml/hr to manage the increased urine output. ICU team spoke with the patient's mother today, providing updates on the changes in the medication regimen and the patient's current status. Informed her that this is Day 9 of intubation, and there are four more days to attempt extubation before considering a tracheostomy. TSH, EBV, and CMV panels were ordered for further evaluation. 05/17/2025: Overnight,patient was placed on droplet precautions due to positive rhinovirus and human metapneumovirus. Patient received a 4 mg dose of Versed for agitation. Heparin drip was initiated for an upper extremity DVT but was paused at 12:15 AM due to hematuria without clots. Urine output was approximately 170 cc/hr, and the patient had two bowel movements since yesterday. Today, the patient underwent bronchoscopy and tolerated the procedure well, with stable gas exchange observed. To facilitate weaning off fentanyl and propofol, the patient was started on phenobarbital 13 mg and oxycodone 10 mg scheduled TID. Will consider adding Precedex to further support the weaning process and work towards extubation tomorrow. Heparin drip for the DVT has been restarted as the hematuria is improving. Additionally, 1L of IV LR was administered to address hyperkalemia and hyperphosphatemia on AM labs. Plan is to remove the Hawkins catheter tomorrow, 05/18. 05/16/2025: Overnight, patient experienced intermittent spasmodic jerking episodes, lasting about 15-20 minutes at a time. During these episodes, the patient becomes tachycardic and febrile. Baclofen 10mg was administered, followed by a single dose of midazolam 2mg IV for agitation. Patient remains on fentanyl 100 mcg/hr and propofol 50 mcg/kg/min for sedation. Patient spiked a fever of 102.6?F, for which IV tylenol was given. A subsequent temperature of 102.4?F was treated with ibuprofen. The Hawkins catheter was replaced overnight. Urine output over the past 12 hours was approximately 850 mL. Patient has not had a bowel movement since 05/13, will add miralax. Due to persistent fevers, doxycycline 100 mg IV BID was initiated for gram-positive cocci coverage. Blood cultures will be repeated, and a right upper quadrant ultrasound has been ordered to evaluate for potential hepatobiliary source of infection. Liver enzymes are improved from yesterday. Planned Interventions: Initiate phenobarbital 130 mg IV every 6 hours and begin weaning off propofol. Increased olanzapine from 5 mg GT QHS to 5 mg TID. Perform bilateral upper extremity ultrasound to assess for DVT. Repeat UA, CXR, CT head and abd/pelvis. Check lipase levels. 05/15/2025: Overnight, the patient developed a fever of 101.8?F. PO acetaminophen was switched to IV formulation by the night team. Temperature improved to 99.5?F by morning. Urine output over the past 12 hours was approximately 620 cc. Liver enzymes continue to trend upward, will hold acetaminophen for now. Patient was weaned off midazolam infusion today. Plan is to begin tapering propofol next. Antipsychotic regimen was adjusted from quetiapine to olanzapine to minimize risk of QTc prolongation. Repeat chest X- ray showed improvement in bilateral pneumonia. Bronchoscopy was performed yesterday (05/14). Repeat procedure is being considered for 05/16. Increase in WBCs and fever likely from bronchoscopy. 05/14/2025: No acute events overnight. Stable on versed/ fentanyl and propofol. No vasopressor requirements. Patient underwent bronchoscopy, well tolerated. Gas exchange stable. PPeak remains in mid20s. Patient on minimal FiO2 and PEEP now. Good ventilator synchrony. Continues to have heavy drooling and output form upper airway. Minimal from ETT now. 05/13/2025: Patient increased FiO2 overnight to 100%. Difficulty managing secretions. Bleeding from nose and plugging. Agitated with maximal dose of precedex and benadryl pushes. Patient with low grade temp to 100.4F. Mild secretions from ETT, pink/ frothy. 05/12/2025: Patient weaned down on sedation. Tmax 102 degrees at 1600 hrs. 05/11. Patient developed mild hepatitis, likely response to medications, will monitor. Patient successfully weaned off of propofol and fentanyl, Precedex initiated. Patient extubated, placed on high flow. Continues to have high secretions, treated with chest PT, oral suctioning as needed, ipratropium breathing treatments scheduled. Patient notably agitated, treating with Benadryl as needed and Precedex drip. Will continue to try and decrease sedation while maintaining patent airway. Sputum culture grew thurman resistant Pseudomonas, meropenem initiated. Will continue Levaquin for now pending cultures. Ear cultures taken. Patient maintaining good urine output, will replete volume if patient exceeds greater than 2 L output. 05/11/2025: Overnight, the patient became increasingly agitated and was observed biting on the endotracheal tube. In response, propofol was increased from 40 mcg/kg/min to 45 mcg/kg/min, and fentanyl was increased from 200 mcg/hr to 250 mcg/hr. The plan is to attempt weaning the patient off sedation today, and work towards extubation. A lumbar puncture was performed, which showed 3 WBCs. Infection from meningitis is less likely, but culture results are pending for confirmation. Today, the patient has been experiencing a low-grade fever, with the highest recorded temperature being 100.4?F. After the Hawkins catheter was placed, the patient had 1700 cc of urine output over the past 12 hours. Followed up with Dr. Jacky Cuadra (ENT in [place]). Dr. Cuadra stated that there is nothing additional he could identify on the CT imaging that the radiologist has not already seen. And that if there was something it would likely be surgical and he does not perform surgeries. He recommended covering for Pseudomonas with clindamycin and Unasyn. The plan is to start levofloxacin for Pseudomonas coverage as well. Additionally, Dr. Cuadra suggested culturing the ear. 05/10/2025: Patient remained sedated with propofol and fentanyl throughout the night, maintaining adequate sedation levels. Around 2 AM, the propofol dose was reduced due to MAP in the 60s. 1L of LR was administered on top of the ongoing IV maintenance fluids at 100cc/hr. Following this, the MAP remained stable above 65. At 6:50 PM on 05/09, an ABG revealed a pH of 7.28, pCO2 of 55, and pO2 of 70, indicative of respiratory acidosis. Patient was given 5 grams of magnesium and 15 mg of albuterol over the course of an hour to promote bronchodilation. Magnesium also needed to be repleted. A repeat ABG showed normalization of the respiratory parameters. Patient's Hawkins catheter was removed and replaced with a QiVi catheter overnight per the patient's father?s request. However, the patient developed urinary retention. A bladder scan performed at 6 AM showed 295cc of retained urine, and a subsequent scan in the afternoon revealed 439cc. Primary team consulted ICU team. On 05/09, two rapid responses were initiated due to the patient?s escalating agitation and anxiety. Patient appeared to be in significant pain from his paraphimosis. The primary team consulted the ICU for further management, as the patient had already received diazepam, haldol, versed, and dilaudid earlier that morning, with inadequate relief. Additionally, there was concern over a decline in his pO2 levels. The initial ABG at 11:56 showed: pH 7.40, pCO2 40, pO2 131, HCO3 25. A repeat ABG at 13:40 revealed: pH 7.27, pCO2 43, pO2 53, HCO3 20. Upon evaluation by the ICU team, the patient was noted to be extremely agitated and wearing an oxygen mask, with audible gurgling sounds coming from the upper airway, raising concern for potential airway compromise. Given the risk of inadequate airway protection, the decision was made to transfer the patient to the ICU for intubation and further management. In the ICU, the patient was intubated. Urology, Dr. Vargas, was consulted earlier in the day. He was able to successfully perform a reduction of the paraphimosis. Telemetry Course: Patient was admitted to telemetry for further workup and management of sepsis of unknown source, with concern for meningitis. Empiric broad-spectrum antibiotic and antiviral therapy were started, consisting of ceftriaxone 2g IV twice daily, vancomycin (pharmacy to dose), ampicillin, and acyclovir. Neurology was consulted. CT of the orbit, sella, and inner ear was ordered given the patient?s history of acute mastoiditis, which showed severe bilateral chronic mastoiditis, bilateral otitis externa, bilateral otitis media, and bilateral cholesteatomas in the attics. CT head was also performed and was negative for acute hemorrhage, mass effect, or midline shift. Findings included prominent sphenoid, ethmoid, and maxillary antral sinusitis, bilateral chronic mastoiditis, bilateral otitis media, and opacification in the bilateral attics. For the patient?s seizures, his home medications of valproic acid and levetiracetam were restarted. Orders for midazolam and Haldol were placed as needed for breakthrough seizures and agitation. An ice pack was ordered for his paraphimosis. Infectious disease was also consulted. History of Present Illness: 24-year-old male with a past medical history significant for cerebral palsy, asthma, seizure disorder, chronic mastoiditis (previously treated with tympanostomy tube placement for recurrent otitis media, now removed), recurrent pneumonia, and chronic PEG tube dependence, presented to the ED on 05/08/2025 with a fever lasting over 24 hours. The patient also had a witnessed seizure episode lasting 5-10 seconds, characterized by tonic-clonic activity confined to the left side of the body. ED Course: -Initial vitals were: BP 122/84, HR 176, RR 26, T 105F, O2 sat 96% on room air. -Labs significant for: CBC showed a WBC of 16.3. CMP showed Na 148, K 5.2, Cl 107, bicarbonate 18.7, anion gap 22, creatinine 1.3 (baseline 0.7), lactic acid 3.2, alkaline phosphatase 120, LDH 352, total CK 1048, procalcitonin: 0.14. Urinalysis negative. Influenza A/B testing was negative. -Imaging included: EKG showed supraventricular tachycardia of HR [address] and T-wave abnormality. CXR showed no aspiration pneumonia but was noted to be of poor inspiratory effort. CT CAP w/o contrast seemed to show no gross infiltrates or other notable findings but was noted to be severely degraded by patient motion. -In the ED, patient was given acetaminophen 975 mg, ceftriaxone 1 gram IV, midazolam 2 mg IV x1, albuterol 2.5 mg, Zosyn 3.375 gram, 2 L NS fluid infusion, and 1 L LR fluid infusion. In the ED, the patient was agitated and pulled out his IV. Attempts at peripheral access were unsuccessful, and a right femoral central line was placed. Exam Vital Signs Temp Pulse Resp BP Pulse Ox O2 Del Method O2 Flow Rate 100.9 F H 139 H 34 H 126/97 H 97 Mechanical Ventilation 35 05/25/25 00:00 05/25/25 06:35 05/25/25 06:35 05/25/25 06:35 05/25/25 06:35 05/23/25 20:40 05/16/25 12:00 FiO2 30 05/25/25 08:00 Narrative Exam Physical Exam General: sedated and intubated, nonverbal at baseline, not in acute distress. RASS score -4 (no response to voice, but movement to noxious stimuli). Head: Normocephalic, atraumatic. Eyes: PERRL. Anicteric. Bilateral lateral eye scleral hemorrhage. Mouth/Throat: Poor dentition. Oral mucosa moist with excessive secretions. ETT in place. Cardiovascular: No murmur. Sinus tachycardia. Respiratory: Rhonchi to auscultation in bilateral lung thompson, improved. Gastrointestinal: PEG tube in place, site is clean, dry and intact. Soft, no guarding or rebound tenderness. Extremities: Contracted and swollen hands. No LE edema, cyanosis, mottling, clubbing. 2+ radial pulse bilaterally, 2+ posterior tibial pulse bilaterally. Objective Labs 05/26/25 04:50 05/26/25 04:50 Labs: Laboratory Results - last 24 hr 05/25/25 04:25 WBC 9.3 D RBC 3.51 L Hgb 9.8 L Hct 29.9 L MCV 85 MCH 27.9 MCHC 32.8 RDW Std Deviation 46.2 H Plt Count 630 H D Neut % (Auto) 71 Lymph % (Auto) 19 Barber % (Auto) 8 Eos % (Auto) 1 Baso % (Auto) 0 Neut # (Auto) 6.6 Lymph # (Auto) 1.8 Barber # (Auto) 0.7 Eos # (Auto) 0.1 Baso # (Auto) 0.0 Immature Gran # (Auto) 0.06 H Absolute Nucleated RBC 0.00 Immature Gran % 1 H Nucleated RBC % 0 Sodium 137 Potassium 4.8 D Chloride 100 Carbon Dioxide 22.6 Anion Gap 14 BUN 17 Creatinine 0.6 Estim Creat Clear Calc 152.3 eGFR > 60 BUN/Creatinine Ratio 28 H Glucose 106 Calculated Osmolality 275 Calcium 9.4 Corrected Calcium 9.4 Phosphorus 6.6 H Magnesium 1.8 Total Bilirubin 0.3 AST 37 H ALT 47 Alkaline Phosphatase 136 H D Total Protein 7.0 Albumin 4.0 Globulin 3.0 Albumin/Globulin Ratio 1.3 Procalcitonin 0.16 ABG Interpretation ABG results: 05/09/25 05/09/25 05/09/25 11:56 13:40 18:50 ABG pH 7.40 7.27 L D 7.28 L ABG pCO2 40 43 55 H D ABG pO2 131 H 53 L* D 70 L ABG HCO3 25 20 26 ABG O2 Saturation 99 H 81 L 92 ABG Base Excess 0 -7 L -2 05/10/25 05/11/25 05/12/25 00:14 05:06 01:18 ABG pH 7.35 7.33 L 7.39 ABG pCO2 42 D 54 H D 48 ABG pO2 103 D 93 94 ABG HCO3 23 28 H 29 H ABG O2 Saturation 99 H 98 98 ABG Base Excess -3 2 3 05/12/25 05/12/25 05/13/25 03:58 11:50 05:10 ABG pH 7.46 H 7.39 7.19 L* D ABG pCO2 41 48 60 H D ABG pO2 105 58 L* D 114 H D ABG HCO3 29 H 29 H 23 ABG O2 Saturation 99 H 90 L 98 ABG Base Excess 5 H 4 H -6 L 05/17/25 05/18/25 05/19/25 01:30 04:09 04:43 ABG pH 7.38 7.43 7.47 H ABG pCO2 46 44 43 ABG pO2 90 83 80 L ABG HCO3 27 H 29 H 31 H ABG O2 Saturation 98 97 97 ABG Base Excess 2 5 H 7 H 05/21/25 05/21/25 04:18 06:33 ABG pH 7.37 D 7.46 H ABG pCO2 50 H 38 D ABG pO2 40 L* D 121 H D ABG HCO3 29 H 27 H ABG O2 Saturation 66 L 100 H ABG Base Excess 3 3 Quality Measures Quality Measures VTE prophylaxis (SCDs) and sepsis Current suspected stage: ruled out Possible source: pulmonary Blood cultures ordered: yes Antibiotic ordered: No Assessment & Plan Assessment Current Active Medications: Generic Name Dose Route Start Last Admin Trade Name Freq PRN Reason Stop Dose Admin Albuterol/Ipratropium 3 ml 05/09/25 18:19 05/20/25 01:36 Albuterol/Ipratropium (Duoneb) Rt Racquel 3 Ml Nebu INH 06/08/25 18:18 3 ml Q2HR PRN Administration SHORTNESS OF BREATH OR WHEEZE Calcium Carbonate 600 mg 05/20/25 18:20 05/25/25 09:25 Calcium Carbonate 600 Mg Tablet GT 06/19/25 18:19 600 mg QDAY KYA Administration Clonazepam 2 mg 05/23/25 21:00 05/25/25 09:25 Clonazepam 0.5 Mg Tablet PO 05/28/25 20:59 2 mg BID KYA Administration Enoxaparin Sodium 40 mg 05/23/25 11:15 05/25/25 09:25 Enoxaparin Sod Inj 40 Mg/0.4 Ml Syringe SC 06/06/25 11:14 40 mg QDAY KYA Administration Guaifenesin 200 mg 05/24/25 20:31 05/24/25 20:54 Guaifenesin Syrup 200 Mg/10 Ml Udc GT 06/23/25 20:30 200 mg QID PRN Administration ET secretions Protocol Valproic Acid 187.5 mg/ Sodium 51.875 mls @ 51.875 mls/hr 05/09/25 18:00 05/25/25 05:33 Chloride IV 06/07/25 17:59 51.875 mls/hr Q6HR KYA Administration Protocol Propofol 1,000 mg in 100 mls @ 2.103 mls/hr 05/13/25 04:16 05/25/25 07:08 Diprivan Ivpb IV 06/12/25 04:15 50 mcg/kg/min .Q24H PRN 21.03 mls/hr PER PROTOCOL Administration Protocol 5 MCG/KG/MIN Fentanyl Citrate 2,500 mcg in 250 mls @ 2.5 mls/hr 05/23/25 11:38 05/25/25 06:00 Sublimaze Inj 2,500 Mcg/250 Ml Bag IV 05/28/25 08:44 75 mcg/hr .Q24H PRN 7.5 mls/hr PER PROTOCOL Titration Protocol 25 MCG/HR Meropenem 1,000 mg/ Sodium 50 mls @ 100 mls/hr 05/24/25 14:00 05/25/25 05:33 Chloride IV 05/31/25 13:59 100 mls/hr Q8HR KYA Administration Levetiracetam 1,000 mg 05/20/25 21:00 05/25/25 09:25 Levetiracetam Inj 100 Mg/Ml Vial 5ml IV 06/19/25 20:59 1,000 mg BID KYA Administration Midazolam HCl 4 mg 05/22/25 17:56 05/23/25 12:06 Midazolam Inj 1 Mg/Ml Vial 2 Ml IVP 05/26/25 09:47 4 mg Q5MIN PRN Administration seizures or agitation Ofloxacin 5 drop 05/21/25 14:45 05/24/25 20:55 Ofloxacin Op Racquel 0.3% 5 Ml Btl BOTH EARS 05/31/25 14:44 5 drops BID KYA Administration Ondansetron HCl 4 mg 05/08/25 11:36 Ondansetron Inj 2 Mg/Ml Inj 2 Ml IVP 06/07/25 11:35 Q6HR PRN NAUSEA OR VOMITING Protocol Oxycodone HCl 10 mg 05/24/25 12:00 05/25/25 05:33 Oxycodone Hcl 5 Mg Ir Tab PO 05/29/25 09:59 10 mg TID KYA Administration Pantoprazole Sodium 40 mg 05/24/25 09:00 05/25/25 09:25 Pantoprazole Inj 40 Mg Vial IVP 06/23/25 08:59 40 mg QDAY KYA Administration Phenobarbital 259.2 mg 05/23/25 11:30 05/25/25 05:33 Phenobarbital 32.4 Mg Tablet GT 06/06/25 11:29 259.2 mg Q6HR KYA Administration Polyethylene Glycol 17 gm 05/16/25 09:15 05/25/25 09:25 Polyethylene Glycol 17 Gm Packet PO 06/15/25 09:14 17 gm QDAY KYA Administration Sevelamer Carbonate 800 mg 05/23/25 08:00 05/25/25 09:25 Sevelamer Carbonate 800 Mg Tablet GT 06/22/25 07:59 800 mg TIDWM KYA Administration Sodium Chloride 3 ml 05/17/25 11:43 Sodium Chloride Rt Racquel 0.9% 3 Ml Nebu INH 06/16/25 11:42 PRN PRN SOLN Plan 24-year-old male with cerebral palsy, asthma, seizure disorder, chronic mastoiditis, recurrent pneumonia, and chronic PEG tube dependence presented with fever and seizure, was admitted for sepsis workup, and later transferred to the ICU for intubation due to concerns about airway protection. Neurology #Agitated delerium Patient was extremely agitated before ICU admission, likely due to pain from paraphimosis. Patient initially sedated with propofol and fentanyl, titrated to Precedex with Benadryl before extubation. Patient failed extubation and was intubated on 05/12. Propofol and fentanyl was restarted. Diagnostic Test: - 05/25 AM: RASS was -4, no response to voice but movement to physical stimuli. - EEG did not show seizure activity per neurology. - MRI brain 05/23: showed chronic infections, no acute pathology. Treatment Review (completed) - Versad 5mg/h was tapered off on 05/15. - Midazolam 4mg --> 8mg gtt 05/18-05/19. - Oxycodone 10mg GT TID 05/17- Treatment Plan: - Start Propranolol 10mg TID. - Phenobarbital 260 mg Q6H. - Clonazepam 2mg BID. - Fentanyl and Propofol, titrate as tolerated - Wean off propofol as TG at 385. If continues to be on Propofol, recheck TG on 05/26 (every 72 hours). - Versad 4mg PRN if patient starts to get agitated. - Neurology consulted, appreciate recommendations. #History of seizures #Cerebral palsy Diagnosis: - Temperature of 105F on admission. - EEG 05/11 unremarkable - Repeat EEG 05/20: electrographic seizure activity. - Persistent fever spikes. - Continuous EEG 05/22-05/23: no seizure activity or status epilepticus. Treatment Plan: - Levetiracetam 1000 mg BID. - Valproic acid 187.5 mg Q6H. - Adjust seizure medications if breakthrough seizures persist. - Seizure precautions. - Aspiration precautions. Cardiovascular #Sinus tachycardia DDx: fevers vs hypersympathetic activity. Diagnostic Test: - Fever spikes associated with tachycardia, tachypnea Treatment Plan: - No specific treatment required at this time. Infectious disease workup remains unrevealing. Unsure of the cause of fever spikes which are associated with tachycardia and tachypnea. - Continue close cardiac monitoring. - Monitor electrolytes and replete as needed. - Maintain Mg > 2 and K > 4 to reduce arrhythmia risk. Respiratory #Failed extubation 05/12 #Acute hypoxic respiratory failure Diagnostic Test: - CXR 05/11: Mild bilateral perihilar pneumonia. To assess for ventilator associated pneumonia. Not much change from 05/09 CXR. - Resistant Pseudomonas from ETT secretions previously (05/09). - CXR 05/19: Significant bilateral pneumonia. Treatment Review (completed): - Patient extubated to [facility] 05/12, chest film with centro-bronchovascular congestion and multifocal pneumonia. - Reintubated overnight 05/13- VC/AC PPeak 20 PEEP 5 FiO2 40%. - Patient underwent bronchoscopy on 05/14 and 05/17 for secretions, well tolerated. - Meropenem (05/12-05/17, 05/19-05/22, for a total of ten days). - Meropenem reinitiated for extended course for chronic sinusitis Treatment Plan: - 05/20 sputum culture grew 2+ yeast, speciation pending. - Repeat Cocci serology test was ordered. - Bronchoscopy fungal culture pending. - Chest physiotherapy PRN. - Given the patient's current condition, including severe tachycardia and excessive secretions, he is not considered a suitable candidate for extubation at this time. Therefore, mechanical ventilation will be continued to support respiratory status. - Continue MV settings: PEEP 6.0, Ppeak 24.6, Pplateau 19.7. VT 400, RR 18, FiO2 30. - Conversations had with family regarding patient's respiratory status, agreed to tracheostomy - General Surgery consulted for tracheostomy. Plan to do tracheostomy on 05/26. #Bronchospasm #History of asthma Diagnostic Test: - Although the patient has a history of asthma, the bronchospasm is most likely from the irritant effect of blood in the airway. A small amount of blood, which was likely from dryness of the nasal mucosa, was suctioned out during intubation. Treatment Plan: - Magnesium for bronchodilator effect as needed. - Albuterol and Ipratropium as needed. GI, , F/E/N #Chronic PEG tube dependence Treatment Plan: - Jevity 1.5 at 40 ml/hr x 24 hrs via PEG tube by pump (goal). If no IV fluids, water flushes of 55 ml/hr. - ProStat 30ml BID via PEG tube. - Appreciate brake reliner recommendations. - Triglyceride level 05/14 - 290; 05/17 - 312; 05/20 - 221. - Repeat TG levels every 72 hours when on Propofol, which should be discontinued if triglyceride levels reach or exceed 400 mg/dL to prevent hypertriglyceridemia-associated complications. - Next check 05/26 is patient remains on Propofol. #Hepatitis (downtrending) Likely due to meropenem or tylenol that could potentially cause hepatotoxicity. Diagnostic Test: - Gallbladder ultrasound 05/16: Normal gallbladder, no gallstones. Fatty infiltration throughout the liver. - Lipase 05/16: 41 wnl. Treatment Plan: - Continue daily LFTs. - Avoid acetaminophen unless fever exceeds 101.0?F or Ibuprofen as alternative. - Will reassess if transaminases continue to rise or clinical status changes. #Acute urinary retention (resolved) Treatment Plan - Monitor urine output, replace fluid if needed. - Hawkins removed 05/23 - Every 4 hour bladder scan and straight cath as needed, has not yet been needed #Hypoalbuminemia (resolved) Likely due to acute hepatitis Diagnostic Test: - UA had urine proteins 1+. - Albumin 4.9 -->3.3 -->2.8 --> 3.2 --> 3.4 --> 2.8 --> 2.5. Treatment Plan: - Monitor LFTs, INR, and bilirubin. - Maintain on PEG tube feeds per brake reliner recommendations. #Paraphimosis (resolved) #Balanitis (resolved) Diagnostic Test: - Edema and tenderness of the glans penis. - Swelling of the distal retracted foreskin. - Constricting band of tissue proximal to the head of the penis at the coronal sulcus. - Hawkins was removed on 05/09 and transitioned to Oivi external urinary catheter. Discussed with family about the need to reinsert hawkins due to the patient's acute urinary retention. Family were in agreement with this plan. Hawkins was reinserted on 05/10 due to urinary retention. Hawkins changed and replaced on 05/16. - S/p reduction of the paraphimosis by Dr. Vargas on 05/09. Treatment Plan: - Control patient's pain with sedation. - Monitor urine output. Renal #Hyperkalemia (resolved) #Hyperphosphatemia DDx: acute kidney injury vs hemolysis vs rhabdomyolysis. Diagnostic Test: - Potassium 5.2. - Phosphorus 6.7 - CK 363. - LDH 350. - Uric acid 3.5. - Hemoglobin 8.8. - Cr 0.6. Treatment Plan: - Monitor BMP and phosphorus. - Monitor potassium levels to avoid arrhythmias. - Sevelamer 800 milligram GT 3 times daily, will adjust if needed. #Acute kidney injury (resolved) DDx: dehydration or vasodilation from sepsis. Diagnositc Test: - Creatinine 1.3 (baseline: 0.7) Treatment Plan: - Continue with free water flushes. - Daily renal panel to trend BUN, Cr, and electrolytes. - Avoid nephrotoxins. - Renally dose meds as appropriate. - Strict I&Os, monitor urine output closely. - Monitor for signs of volume overload or uremic symptoms. #Anion Gap Metabolic Acidosis (resolved) #Lactic acidosis (resolved) DDx: seizures vs sepsis vs acute kidney injury vs hypoperfusion. Likely from seizures as patient has no signs of systemic hypoperfusion such as skin mottling, decreased cap refills. Diagnostic Test: - Admission anion gap 22, lactic acid 16.0, bicarbonate 18.7. Treatment Plan: - Recheck LA as needed. #Rhabdomyolysis (resolved) DDx: seizures vs hyperthermia vs infectious myositis. Diagnostic Test: - CK 1048 --> 3743 --> 1654 --> 338 --> 363. - Witnessed seizure episode lasting 5-10 seconds, characterized by tonic-clonic activity prior to admission. Treatment Plan: - Continue free water flushes at 35 cc/hr. - Monitor urine output. - Correct electrolyte abnormalities. - Control seizures with valproic acid and levetiracetam. - Monitor renal panel. Heme #Acute nonocclusive thrombus in the left brachial vein Diagnostic Test: - Venous doppler study of upper extremities 05/16: Normal right upper extremity deep venous system. Positive for nonocclusive thrombus in the left brachial vein. - Per chart review and patient's parents, patient does not have history of clots. Treatment Review (completed): - Lovenox 30 mg (05-11 - 05/15). - Lovenox 40 mg (05/16). - Heparin loading dose and ggt. Lovenox to heparin due to heparin?s shorter half-life, which allows for more rapid cessation in the event of bleeding, a shorter half life and can be stopped if bleeding occurs. - Stopped heparin ggt due to hematuria on 05/18. Treatment Plan: - Lovenox 40 mg SC QD. Hold Lovenox at midnight for tracheostomy on 05/26. - Primary upper extremity deep vein thrombosis, anticoagulation should be continued for a minimum of three months following the initial thrombotic event. #Normocytic Anemia DDx: Anemia of Inflammation vs dilutional anemia vs drug-induced anemia. Likely dilutional anemia since patient had normal hemoglobin on admission and from IV fluids per sepsis protocol. No signs of bleeding. Treatment Plan: - Monitor H&H. - Type and screen. - Transfusing for Hgb <7 or symptomatic. #Thrombocytosis DDx: infection vs reactive Diagnostic Test: - Plt 630. Treatment Plan: - Monitor CMP. #Leukocytosis (resolved) DDx: likely due to bronchoscopy vs infection of unknown source vs drug induced Diagnostic Test: - Continue to have fever spikes as high as 102.8?F. - Increase WBCs 8.9 --> 11.1 after bronchoscopy on 05/14. - Increase WBCs 14.7 --> 16.1 after bronchoscopy on 05/17. Treatment Plan: - Treat underlying cause. #Thrombocytopenia (resolved) DDx: Dilutional versus consumption versus increased destruction due to sepsis. Initial decrease is likely due to dilutional in setting of IV fluids, however his WBC and hemoglobin have leveled off platelets have down trended. Diagnostic test: - Platelets: 209 --> 65-->141. Treatment plan: - Monitor daily labs - Avoid excessive oral tracheal suctioning in setting of previous bleed and thrombocytopenia. Endo #no active problems ID #Sepsis #Bilateral chronic mastoiditis #Sinusitis #Bilateral otitis media #Bilateral otitis externa DDx: meningitis vs acute on chronic mastoiditis vs acute febrile illness. Diagnostic Test: - History of chronic mastoiditis. - Met SIRS criteria on admission: T 105F, HR 176, RR 26, PaCO2 26, WBC 16.3. - 05/08 Lactic acid 16.0. - 05/08 CT Head: prominent sphenoid ethmoid maxillary antral sinusitis, bilateral chronic mastoiditis, bilateral otitis media. - 05/08 CT Orbit Sella Inner: severe bilateral chronic mastoiditis, bilateral otitis externa and otitis media, bilateral cholesteatomas in the attics. - 05/08 MRSA screen negative. - 05/09 Sputum culture: 1+ thurman resistance Pseudomonas. - 05/10 Lumbar puncture: clear, WBC 3, glucose 70, total protein 25. CSF testing negative. - 05/10 Respiratory viral panel: rhinovirus/enterovirus and human metapneumovirus detected. - 05/12 Bilateral ear culture: E coli ESBL. - UA 05/08 and 05/16 negative. - Blood culture 05/08, 05/11, and 05/16 negative. - 05/16 CTAP: Extensive bilateral pneumonia, cystitis pattern, cholelithiasis. - 05/16 CXR: worsening diffuse severe left lung pneumonia. - 05/16 CT Head: unremarkable. Treatment Review (completed) - Rocephin 2 gm IV q12HR [05/08-05/11]. - Vancomycin dosed by pharmacy [05/08-05/11] since MRSA screen is negative. - Acyclovir 700 mg IV [05/08-05/11] since LP negative. - Fluids: 30mL/kg -- 2 L NS fluid infusion and 1 L LR fluid infusion was given in the ED. - Femoral central line removed 05/11, replaced with peripheral access. Treatment Plan: - Topical oxofloxacin. - Patient has limited options in terms of antibiotics in the future as meropenem is broad-spectrum. May have to consider ceftazidime or ceftaroline if he continues to develop recurrent infections. - Sputum culture grew 2+ yeast, speciation pending. Yeast is a common colonizer in intubated patients. - A repeat Cocci serology test was ordered. Integumentary #Maculopapular rash to the buttocks DDx: contact dermatitis vs allergic dermatitis Treatment Plan - Patient no longer has diaper on. Anticipate rash to improve. Health Maintenance DVT prophylaxis: SCDs, Levonox 40mg QD. GI prophylaxis: Protonix IV Diet: Jevity Hawkins: none. Straight cath in/out q4h if urine retention more than 400 ml Lines: Peripherals Drips: Propofol, fentanyl. Vent: MV, PPlat <30 and TV < 8 ml/kg IBW CODE STATUS: FULL CODE Patient plan of care was discussed with the senior resident, Dr. Baer, and attending physician, Dr. Baeza. Diaz Coppola, DO Internal Medicine PGY-1
[2025-05-25] MEDS: OFLOXACIN OP SOL 0.3% 5 ML BTL 5 DROP BOTH EARS ×2 (09:40→20:21)
--- NOTE | 2025-05-25 12:56 | PD.SURCONS ---
HPI Consult details Consult date: 05/25/25 Reason for consultation narrative: Tracheostomy History of present illness: 24-year-old male with history of cerebral palsy with PEG tube placement for nutrition, seizure disorder was admitted over 2 weeks ago for fever. During hospitalization patient developed respiratory failure requiring intubation. He has remained dependent on the ventilator and has not been able to be weaned off. In anticipation for prolonged need for ventilator support, I was asked to evaluate the patient for tracheostomy. Review of Systems Review of Systems ROS Unobtainable: unobtainable due to endotracheal tube Past Medical History Surgical History OTHER SURGICAL HX: PEG tube placement, ear surgery, foot surgery Social History SMOKING STATUS: Never smoker SUBSTANCE USE: does not use ALCOHOL: Never Meds Home Medications and Allergies Home Medications ?Medication ?Instructions ?Recorded ?Confirmed ?Type acetaminophen 160 mg/5 mL oral 650 mg feeding tube Q4HR PRN fever 01/16/21 05/08/25 History liquid or pain ascorbic acid (vitamin C) 1,000 mg 1 g feeding tube QDAY 01/16/21 05/08/25 History tablet (Vitamin C) fluticasone propionate 50 1 spray intranasal BID 01/16/21 05/08/25 History mcg/actuation nasal spray,suspension ofloxacin 0.3 % ear drops in a 5 drp otic (ear) BID 01/16/21 05/08/25 History dropperette ciprofloxacin 0.3 %-dexamethasone 4 drp otic (ear) BID 03/06/21 05/08/25 History 0.1 % ear drops,suspension (Ciprodex) omeprazole 20 mg capsule,delayed 20 mg feeding tube DAILY 09/27/23 05/08/25 History release levetiracetam 100 mg/mL oral 100 mg feeding tube BID 05/08/24 05/08/25 History solution montelukast 10 mg tablet 10 mg feeding tube DAILY 05/08/24 05/08/25 History quetiapine 100 mg tablet 100 mg feeding tube HS 05/08/24 05/08/25 History quetiapine 50 mg tablet 50 mg feeding tube QAM 05/08/24 05/08/25 History Allergies Allergy/AdvReac Type Severity Reaction Status Date / Time valbenazine (From Ingrezza) Allergy Severe Agitated Verified 11/02/23 00:43 Sulfa (Sulfonamide Allergy Intermediate Rash Verified 11/02/23 00:43 Antibiotics) glycopyrrolate Allergy Rash Verified 11/02/23 00:43 haloperidol Allergy Rash Verified 11/02/23 00:43 sulfamethoxazole (From Allergy Rash Verified 11/02/23 00:43 Bactrim) trimethoprim (From Bactrim) Allergy Rash Verified 11/02/23 00:43 Exam Vital Signs Temp Pulse Resp BP Pulse Ox O2 Del Method O2 Flow Rate 100.4 F 123 H 34 H 122/54 L 94 L Mechanical Ventilation 35 05/25/25 08:00 05/25/25 11:00 05/25/25 06:35 05/25/25 11:00 05/25/25 11:00 05/25/25 11:00 05/16/25 12:00 FiO2 40 05/25/25 12:00 Constitutional Comments: Intubated and sedated Routine Neck Exam Comments: Neck is supple with midline trachea Routine Abdominal Exam Comments: Abdomen is soft and nondistended. PEG tube in place and intact Assessment & Plan Additional Assessment Additional comments: Respiratory failure Plan Will plan for tracheostomy tomorrow. Hold Lovenox tomorrow and hold tube feeding at midnight tonight. Risks of the procedure include but not limited to infection, bleeding, injury to surround neurovascular structures, possible tracheoinnominate fistula discussed with patient's parents via fagoter. Benefits and alternatives explained to them, all their questions answered, they agreed and consented to proceed with the operation.
[2025-05-25 13:07] LABS: Cocci Serology, IgM Negative (Negative)
[2025-05-25 13:22] LABS: INR 1.0 (0.9-1.3); Partial Thromboplastin Time 34.7 Seconds (22.0-36.0); Prothrombin Time 10.8 Seconds (9.0-12.2)
[2025-05-25] MEDS: PROPRANOLOL 10 MG TABLET PO ×2 (13:49→21:12)
--- NOTE | 2025-05-25 15:50 | PC.SS ---
Update: Plan is for patient to undergo tracheostomy procedure tomorrow. Patient is in possession of PEG tube. Patient is NPO.
[2025-05-25] MEDS: fentaNYL 2,500 MCG/250 ML BAG 2,500 MCG/250 ML BAG 12.5 MCG IV (19:13)
--- NOTE | 2025-05-25 22:18 | PD.NEUROPROG ---
Documentation for date of: 05/25/25 Subjective Subjective Interval history: Patient was seen in ICU today at the bedside. Continued to remain intubated and on mechanical ventilatory support on sedation. No clinical seizures reported overnight. Exam - Neurology Vital Signs Temp Pulse Resp BP Pulse Ox O2 Del Method O2 Flow Rate 98.3 F 100 34 H 119/59 L 100 Mechanical Ventilation 35 05/25/25 20:00 05/25/25 21:12 05/25/25 06:35 05/25/25 21:12 05/25/25 21:00 05/25/25 20:00 05/16/25 12:00 FiO2 30 05/25/25 20:00 Narrative Exam GENERAL APPEARANCE: Developmentally delayed male , intubated and on mechanical ventilatory support HEENT: Normocephalic, atraumatic, Pupils: Equal reacting to light NECK: Supple, no JVD or bruits. CARDIOVASULAR: Heart: S1, S2 heard, regular without S3-S4 or murmur no rubs or gallops. LUNGS/CHEST: Breath sounds heard equally bilaterally, bilateral Rales and rhonchi heard. ABDOMEN: Soft, nontender, with normal bowel sounds. No pulsatile masses. No rebound, rigidity, or guarding. Normal inspection and palpation. EXTREMITIES: Normal inspection and palpation. No edema, clubbing or cyanosis. SKIN: Warm and dry without rashes. Normal inspection. NEURO: Limited from sedation, brainstem function: partly Intact, moves all extremities. PSYCHIATRIC: Limited Objective Labs 05/25/25 04:25 05/25/25 04:25 Labs: Laboratory Results - last 24 hr 05/25/25 05/25/25 05/25/25 04:25 11:00 12:45 WBC 9.3 D RBC 3.51 L Hgb 9.8 L Hct 29.9 L MCV 85 MCH 27.9 MCHC 32.8 RDW Std Deviation 46.2 H Plt Count 630 H D Neut % (Auto) 71 Lymph % (Auto) 19 Kingfisher % (Auto) 8 Eos % (Auto) 1 Baso % (Auto) 0 Neut # (Auto) 6.6 Lymph # (Auto) 1.8 Kingfisher # (Auto) 0.7 Eos # (Auto) 0.1 Baso # (Auto) 0.0 Immature Gran # (Auto) 0.06 H Absolute Nucleated RBC 0.00 Immature Gran % 1 H Nucleated RBC % 0 PT 10.8 INR 1.0 APTT 34.7 Sodium 137 Potassium 4.8 D Chloride 100 Carbon Dioxide 22.6 Anion Gap 14 BUN 17 Creatinine 0.6 Estim Creat Clear Calc 152.3 eGFR > 60 BUN/Creatinine Ratio 28 H Glucose 106 Calculated Osmolality 275 Calcium 9.4 Corrected Calcium 9.4 Phosphorus 6.6 H Magnesium 1.8 Total Bilirubin 0.3 AST 37 H ALT 47 Alkaline Phosphatase 136 H D Total Protein 7.0 Albumin 4.0 Globulin 3.0 Albumin/Globulin Ratio 1.3 Procalcitonin 0.16 Coccidioides IgM Ab Negative ABG Interpretation ABG results: 05/09/25 05/09/25 05/09/25 11:56 13:40 18:50 ABG pH 7.40 7.27 L D 7.28 L ABG pCO2 40 43 55 H D ABG pO2 131 H 53 L* D 70 L ABG HCO3 25 20 26 ABG O2 Saturation 99 H 81 L 92 ABG Base Excess 0 -7 L -2 05/10/25 05/11/25 05/12/25 00:14 05:06 01:18 ABG pH 7.35 7.33 L 7.39 ABG pCO2 42 D 54 H D 48 ABG pO2 103 D 93 94 ABG HCO3 23 28 H 29 H ABG O2 Saturation 99 H 98 98 ABG Base Excess -3 2 3 05/12/25 05/12/25 05/13/25 03:58 11:50 05:10 ABG pH 7.46 H 7.39 7.19 L* D ABG pCO2 41 48 60 H D ABG pO2 105 58 L* D 114 H D ABG HCO3 29 H 29 H 23 ABG O2 Saturation 99 H 90 L 98 ABG Base Excess 5 H 4 H -6 L 05/17/25 05/18/25 05/19/25 01:30 04:09 04:43 ABG pH 7.38 7.43 7.47 H ABG pCO2 46 44 43 ABG pO2 90 83 80 L ABG HCO3 27 H 29 H 31 H ABG O2 Saturation 98 97 97 ABG Base Excess 2 5 H 7 H 05/21/25 05/21/25 04:18 06:33 ABG pH 7.37 D 7.46 H ABG pCO2 50 H 38 D ABG pO2 40 L* D 121 H D ABG HCO3 29 H 27 H ABG O2 Saturation 66 L 100 H ABG Base Excess 3 3 Assessment & Plan Additional Assessment & Plan Additional Plan: David Baltazar is 24 yr male with PMH of chronic mastoiditis (previously had tympanostomy tube placed for recurrent otitis media, now removed), seizure disorder, recurrent pneumonia, cerebral palsy, chronic PEG tube, and asthma who was brought into ED on 05/08/25 for ongoing fever of over 24 hours and reported episode of witnessed seizure by ED. Patient was septic. Neurology was consulted to for LP to rule out meningitis. #Mastoiditis #rule out Meningitis #Tonic clonic seizure #Hx seizures #Cerebral palsy LP culture was negative: clear, WBC 3, glucose 70, total protein 25. CSF Streptococcus pneumonia Ag negative , Streptococcus B antigen negative. CSF Neisseria meningitis B/E.coli K1 negative, Neisseria meningitis ACY/W135 Ag negative. CSF haemophilus influenzae B Ag negative. MRSA screen negative. Sputum culture thurman resistant Pseudomonas -continue higher dose of IV Keppra and Depakote -seizure precautions -midazolam for breakthrough seizure MRI brain: chronic pansinusitis. Follow-up with repeat EEG in 48 hours to look for abnormal activity in the temporal areas. Consider repeat LP tomorrow after we discuss with ICU team and his family. Noted that he is getting Tracheostomy tomorrow. #Paraphimosis #Acute Kidney Injury ##Lactic acidosis #Elevated total creatine kinase from his hyperkinetic movements #Normocytic Anemia Primary care team to manage above conditions and ongoing care needs.
[2025-05-26] VITALS (36 sets, daily range): BP systolic 108–157; BP diastolic 51–91; PULSE 76–143; RESP 18–34; TEMP 36.3–39.1; O2SAT 94–100
[2025-05-26] MEDS: PROPOFOL 1,000 MG IVPB 1,000 MG/100 ML VIAL 18.927 MG IV ×2 (03:25→09:15)
[2025-05-26] MEDS: oxyCODONE HCL 5 MG IR TAB 10 MG PO (05:53)
[2025-05-26] MEDS: PROPRANOLOL 10 MG TABLET PO ×3 (05:53→21:42)
[2025-05-26 06:30] LABS: CMV DNA, Qn PCR <1.54 DETECTED Log IU/mL; CMV DNA, Qn Real Time PCR <34.5 DETECTED IU/mL
[2025-05-26 06:34] LABS: Basophils # (Auto) 0.1 Thou/mm3 (0.0-0.2); Basophils % (Auto) 1 % (0-2.5); Eosinophils # (Auto) 0.4 Thou/mm3 (0.0-0.5); Eosinophils % (Auto) 4 % (0-10); Hematocrit 24.6 % (41.0-53.0); Immature Granulocytes Auto 0.10 Thou/mm3 (0.00-0.00); Lymphocytes # (Auto) 2.0 Thou/mm3 (1.0-4.8); Lymphocytes % (Auto) 20 % (10-50); Mean Corpuscular HGB Conc 32.5 g/dl (31.0-37.0); Mean Corpuscular Hemoglobin 28.0 pg (25.0-35.0); Mean Corpuscular Volume 86 fL (80-100); Monocytes # (Auto) 1.5 Thou/mm3 (0.0-0.8); Monocytes % (Auto) 14 % (0-12); Neutrophils # (Auto) 6.2 Thou/mm3 (1.8-7.7); Neutrophils % (Auto) 60 % (37-80); Nucleated Red Blood Cell # 0.00 Thou/mm3 (0.00-0.00); Nucleated Red Blood Cell % 0 /100 WBC (0); Platelet Count 711 Thou/mm3 (140-440); RDW Standard Deviation 46.5 fL (35.1-43.9); Red Blood Count 2.86 Miln/mm3 (4.50-5.90); White Blood Count 10.3 Thou/mm3 (3.8-10.6)
[2025-05-26 06:35] LABS: CMV Specimen Source PLASMA
[2025-05-26 06:59] LABS: Alanine Aminotransferase 44 U/L (10-49); Albumin, Serum 3.4 gm/dL (3.5-5.0); Albumin/Globulin Ratio 1.4 (1.2-2.2); Alkaline Phosphatase 134 U/L (46-116); Anion Gap 14 (7-16); Aspartate Amino Transferase 38 U/L (0-34); BUN/Creatinine Ratio 44 Ratio (12-20); Bilirubin,Total 0.3 mg/dL (0.3-1.2); Blood Urea Nitrogen 22 mg/dL (9-23); Calcium 9.4 mg/dL (8.3-10.6); Calcium (Corrected) 9.9 mg/dL (8.5-10.1); Carbon Dioxide 24.0 mMol/L (20.0-31.0); Chloride 101 mMol/L (98-107); Creatinine (Component) 0.5 mg/dL (0.6-1.3); Estimated Creatinine Clearance 182.8 mL/min (>60); Globulin 2.5 gm/dL (2.3-3.5); Glucose 83 mg/dL (74-106); Magnesium 1.8 mg/dL (1.6-2.6); Osmolality,Calculated 279 (275-295); Phosphorous 6.5 mg/dL (2.4-5.1); Potassium 5.2 mMol/L (3.4-5.1); Sodium 139 mMol/L (136-145); Total Protein 5.9 gm/dL (5.7-8.2); Triglycerides 275 mg/dL (30-150); eGFR > 60 See Note
[2025-05-26 07:08] LABS: Hemoglobin 8.0 g/dL (13.5-16.0)
[2025-05-26] MEDS: levETIRAcetam INJ 100 MG/ML VIAL 5ML 1000 MG IV ×2 (08:27→21:43)
[2025-05-26] MEDS: SEVELAMER CARBONATE 800 MG TABLET GT ×3 (08:27→17:57)
[2025-05-26] MEDS: CALCIUM CARBONATE 600 MG TABLET GT (08:27)
[2025-05-26] MEDS: OFLOXACIN OP SOL 0.3% 5 ML BTL 5 DROP BOTH EARS ×2 (08:28→22:00)
[2025-05-26] MEDS: POLYETHYLENE GLYCOL 17 GM PACKET PO (08:28)
--- NOTE | 2025-05-26 10:30 | ESPR_ITS ---
<Statement entered by Jeanine Baeza MD - 05/27/25 08:24> TOTAL TIME: 45MINUTES ON DIRECT MEDICAL CARE, MANAGEMENT - COORDINATION AND COUNSELING > 50% OF TOTAL TIME I saw and evaluated the patient. I reviewed the resident?s note and agree with findings and plan as documented in the resident?s note. s/p tracheostomy MV settings / dynamics appropriate increased klonopin to 2mg tid and oxycodone to 15 tid weaning sedative gtts repeat EEG tomorrow <Statement entered by Kamlesh Baer MD - 05/26/25 15:01> Patient seen and examined at bedside. I discussed and supervised with the physician internist physician who took care of this patient. I personally saw and examined the patient. I agree with most of the assessment and plan. Plan of care discussed with attending Dr. Baeza. Kamlesh Baer MD PGY-2 Documentation for date of: 05/26/25 Subjective Subjective Interval history: 05/26/2025: Patient did not spike any fevers last night. Propofol was decrease to 45, while Fentanyl was maintained at 125. Patient is receiving bladder scans every 4 hours. Most recent in and out catheter revealed 600 cc of urine. Patient will go for tracheostomy today. Neruology will repeat lumbar puncture tonight. Changes to medications: clonazepam 2mg BID to TID, oxycodone 10mg to 15mg TID to try to wean off Fentanyl. Will continue with propranolol as it appears to be working as adjunct. 05/25/2025: Overnight, patient experienced a fever spike of 101.9?F, for which Ibuprofen was administered. Propofol was increased to 50, while Fentanyl was maintained at 125. Urine output over the past 12 hours was 1500cc, with no bowel movement noted. Propranolol 10mg TID was started. Bladder scan every 4 hours to check for urinary retention, if >400cc then straight in and out catheter. Lovonex and tube feeds will be held at midnight in preparation for tomorrow's tracheostomy. Sputum culture grew 2+ yeast, speciation pending. A repeat Cocci serology test was ordered. 05/24/2025: No overnight events. Patient had consistent urine output without the need for straight catheterization. No fever spikes overnight. Remains difficult to titrate down sedatives. Oxycodone 10 mg 3 times daily via G-tube was initiated with goal reducing fentanyl drip. MRI of brain only showed chronic infections, no acute intracranial pathology to explain underlying condition. Resume meropenem due to possibility of resistant Pseudomonas causing sinusitis, will require extended course of antibiotics for completion of treatment. Spoke with family regarding tracheostomy, risks and benefits were explained, family expressed understanding and was agreeable to procedure. General surgery consulted for tracheostomy. 05/23/2025: A continuous EEG was placed at approximately 7:30 PM on 05/22. Overnight, the patient experienced two fever spikes, with a peak temperature of 101.1?F. Patient remained on Propofol 40 mcg/kg/min and Fentanyl 100 mcg/hr. Two doses of Versed were administered for agitation. Patient continues to have increased secretions.Patient had premature ventricular contractions the night before. Repeat labs showed potassium at 5.2, magnesium at 1.9, and phosphorous at 5.5 . Calcium gluconate, breathing treatment, 4 gram of magesium and sevelamer was given. EKG showed sinus tachycardia with QTc 426. Patient also developed acute urine retention, with a bladder scan showing 700 cc. A Hawkins catheter was inserted due to leakage from the previous catheter and noted post- void retention. Patient had approximately 2000 cc of urine output overnight. Since patient's output is more than his input, tube feed water flushes were increased from 45 to 55 cc. Patient had one bowel movement this morning. Hawkins was removed this morning, and straight cath in and out will continue if the patient continues to experience urinary retention. EEG was reviewed by Dr. Lang, who confirmed that there were no signs of status epilepticus or seizures. Plan to do MRI of the brain next. Increased phenobarbital and clonazepam doses. Will work on weaning down propofol as patient's triglycerides are 385. Heparin was switched to Lovenox. 05/22/2025: Overnight, the patient developed fever spikes, with the highest reaching 101?F. Cooling measures were ineffective, and Ibuprofen was administered. In response to the patient's condition, fentanyl was increased from 100 mcg to 150 mcg, and propofol was increased from 35 mcg to 40 mcg. Urine output over the past 12 hours was 1100 cc. Given the recurrence of fevers and signs of hypersympathetic activity, the phenobarbital dosage was increased to 130 mg every 6 hours, up from every 8 hours. C. diff PCR testing is pending for loose stools. The patient has been receiving Versed every 5 minutes for seizure- like activity until it resolves. The ICU team held an extensive discussion with the patient?s parents regarding the next steps, which include transferring the patient to a facility capable of continuous EEG monitoring while weaning off sedation, as the patient continues to experience persistent seizures. Last day of meropenem to complete 10 day course. 05/21/2025: Overnight, patient developed two fever spikes, with a maximum temperature of 102.6?F. Fevers were managed with Tylenol and cooling measures. Hawkins catheter was removed and replaced with a QiVi external catheter, with urine output of 1,650 cc over the past 12 hours. Propofol was increased from 30 to 35 mcg/kg/min due to agitation and the patient breathing over the ventilator, while fentanyl maintained at 150 mcg/hr. No bowel movement was reported overnight. Neurology agreed with gradual weaning of sedation as tolerated. EEG is scheduled for Friday, 05/23, and daily EEG monitoring is not required. Ear culture returned with Brittney, likely from normal hamilton from the ear swab. Ears were examed with otoscope. Right ear unremarkable. Left ear canal with clear liquid, like from ofloxacin ear drops. Reduced phenobarbital to 130 mg every 8 hours and clonazepam to 1mg BID. Versed 2 mg IV is available as needed for agitation. Continue meropenem. Fungal culture of ear culture grew Brittney, likely representing normal hamilton from the ear swab. Patient exhibited green penile discharge following hawkins removal. A chlamydia and gonorrhea test was ordered. Right arm is warm and tense to touch from IV infiltration, IV was removed and placed in distal part of the right forearm. 05/20/2025: Overnight, patient had a fever spike of 101.2F. Patient remained on Propofol 40 and Fentanyl 150 for sedation. Precedex was not needed for agitation. Urine output was 2800 cc in the past hours with no gross hematuria. No bowel movement. Patient?s phenobarbital dose was adjusted to 260 mg every 8 hours. Keppra dose was increased to 1000 mg twice daily as per the neurologist?s recommendation. An EEG revealed electrographic seizure activity. A repeat sputum culture was obtained due to contamination of the previous sample. Additionally, a gradual wean of propofol and fentanyl was initiated as tolerated. 05/19/2025: Overnight, patient had a fever spike of 102.2?F. Due to agitation, the Versed infusion was increased from 4 mg/gtt to 8mg/gtt. Patient was also receiving Propofol 30 and Fentanyl 150. Patient had one bowel movement and produced 1L of urine over the past 12 hours, with no evidence of gross hematuria. Versed 4 mg gtt was titrated up to 8mg gtt for patient's agitation. Patient was on Propofol 30 and Fentanyl 150. Patient had one bowel movement. Urine output was 1L in the past 12 hours with no gross hematuria. This morning, clonazepam 2 mg PO TID was initiated, Propofol infusion was increased to 50 mcg/kg/min, and fentanyl was maintained at 50 mcg/hr. The versed infusion was discontinued, and Meropenem was restarted to treat Pseudomonas pneumonia, since the patient continued to spike fevers despite discontinuation of the medication. Sputum culture and EEG will be repeated. Heparin was restarted for DVT PPX. 05/18/2025: Overnight, patient remained on Propofol 30 and Fentanyl 300, with Versed 2mg dose x1. Magnesium was given for bronchodilation. Ibuprofen given for fever. Plan was to wean off sedation and extubate the patient today, but due to significant oral secretions and concerns about potential aspiration and the patient's inability to protect the airway, the decision was made to keep the patient intubated for now. A spontaneous breathing trial was attempted, and the patient?s lungs are functioning well. However, given the ongoing agitation, sedation could not be reduced. Phenobarbital dose was increased from 130mg to 260mg every 6 hours, and a 4mg Versed drip was started. Olanzapine was discontinued, and both doxycycline and meropenem were stopped due to concerns of a potential drug reaction, as fever spikes worsened after the initiation of meropenem on 05/12. Heparin was restarted yesterday for a DVT in the left brachial vein but was discontinued this morning due to ongoing hematuria without clots. A follow-up Doppler will be performed in 2-3 days to assess whether the DVT has resolved. Patient?s urine output was 2240cc over the past 12 hours. Maintenance fluids were started at 100ml/hr to manage the increased urine output. ICU team spoke with the patient's mother today, providing updates on the changes in the medication regimen and the patient's current status. Informed her that this is Day 9 of intubation, and there are four more days to attempt extubation before considering a tracheostomy. TSH, EBV, and CMV panels were ordered for further evaluation. 05/17/2025: Overnight,patient was placed on droplet precautions due to positive rhinovirus and human metapneumovirus. Patient received a 4 mg dose of Versed for agitation. Heparin drip was initiated for an upper extremity DVT but was paused at 12:15 AM due to hematuria without clots. Urine output was approximately 170 cc/hr, and the patient had two bowel movements since yesterday. Today, the patient underwent bronchoscopy and tolerated the procedure well, with stable gas exchange observed. To facilitate weaning off fentanyl and propofol, the patient was started on phenobarbital 13 mg and oxycodone 10 mg scheduled TID. Will consider adding Precedex to further support the weaning process and work towards extubation tomorrow. Heparin drip for the DVT has been restarted as the hematuria is improving. Additionally, 1L of IV LR was administered to address hyperkalemia and hyperphosphatemia on AM labs. Plan is to remove the Hawkins catheter tomorrow, 05/18. 05/16/2025: Overnight, patient experienced intermittent spasmodic jerking episodes, lasting about 15-20 minutes at a time. During these episodes, the patient becomes tachycardic and febrile. Baclofen 10mg was administered, followed by a single dose of midazolam 2mg IV for agitation. Patient remains on fentanyl 100 mcg/hr and propofol 50 mcg/kg/min for sedation. Patient spiked a fever of 102.6?F, for which IV tylenol was given. A subsequent temperature of 102.4?F was treated with ibuprofen. The Hawkins catheter was replaced overnight. Urine output over the past 12 hours was approximately 850 mL. Patient has not had a bowel movement since 05/13, will add miralax. Due to persistent fevers, doxycycline 100 mg IV BID was initiated for gram-positive cocci coverage. Blood cultures will be repeated, and a right upper quadrant ultrasound has been ordered to evaluate for potential hepatobiliary source of infection. Liver enzymes are improved from yesterday. Planned Interventions: Initiate phenobarbital 130 mg IV every 6 hours and begin weaning off propofol. Increased olanzapine from 5 mg GT QHS to 5 mg TID. Perform bilateral upper extremity ultrasound to assess for DVT. Repeat UA, CXR, CT head and abd/pelvis. Check lipase levels. 05/15/2025: Overnight, the patient developed a fever of 101.8?F. PO acetaminophen was switched to IV formulation by the night team. Temperature improved to 99.5?F by morning. Urine output over the past 12 hours was approximately 620 cc. Liver enzymes continue to trend upward, will hold acetaminophen for now. Patient was weaned off midazolam infusion today. Plan is to begin tapering propofol next. Antipsychotic regimen was adjusted from quetiapine to olanzapine to minimize risk of QTc prolongation. Repeat chest X- ray showed improvement in bilateral pneumonia. Bronchoscopy was performed yesterday (05/14). Repeat procedure is being considered for 05/16. Increase in WBCs and fever likely from bronchoscopy. 05/14/2025: No acute events overnight. Stable on versed/ fentanyl and propofol. No vasopressor requirements. Patient underwent bronchoscopy, well tolerated. Gas exchange stable. PPeak remains in mid20s. Patient on minimal FiO2 and PEEP now. Good ventilator synchrony. Continues to have heavy drooling and output form upper airway. Minimal from ETT now. 05/13/2025: Patient increased FiO2 overnight to 100%. Difficulty managing secretions. Bleeding from nose and plugging. Agitated with maximal dose of precedex and benadryl pushes. Patient with low grade temp to 100.4F. Mild secretions from ETT, pink/ frothy. 05/12/2025: Patient weaned down on sedation. Tmax 102 degrees at 1600 hrs. 05/11. Patient developed mild hepatitis, likely response to medications, will monitor. Patient successfully weaned off of propofol and fentanyl, Precedex initiated. Patient extubated, placed on high flow. Continues to have high secretions, treated with chest PT, oral suctioning as needed, ipratropium breathing treatments scheduled. Patient notably agitated, treating with Benadryl as needed and Precedex drip. Will continue to try and decrease sedation while maintaining patent airway. Sputum culture grew thurman resistant Pseudomonas, meropenem initiated. Will continue Levaquin for now pending cultures. Ear cultures taken. Patient maintaining good urine output, will replete volume if patient exceeds greater than 2 L output. 05/11/2025: Overnight, the patient became increasingly agitated and was observed biting on the endotracheal tube. In response, propofol was increased from 40 mcg/kg/min to 45 mcg/kg/min, and fentanyl was increased from 200 mcg/hr to 250 mcg/hr. The plan is to attempt weaning the patient off sedation today, and work towards extubation. A lumbar puncture was performed, which showed 3 WBCs. Infection from meningitis is less likely, but culture results are pending for confirmation. Today, the patient has been experiencing a low-grade fever, with the highest recorded temperature being 100.4?F. After the Hawkins catheter was placed, the patient had 1700 cc of urine output over the past 12 hours. Followed up with Dr. Jacky Cuadra (ENT in [place]). Dr. Cuadra stated that there is nothing additional he could identify on the CT imaging that the radiologist has not already seen. And that if there was something it would likely be surgical and he does not perform surgeries. He recommended covering for Pseudomonas with clindamycin and Unasyn. The plan is to start levofloxacin for Pseudomonas coverage as well. Additionally, Dr. Cuadra suggested culturing the ear. 05/10/2025: Patient remained sedated with propofol and fentanyl throughout the night, maintaining adequate sedation levels. Around 2 AM, the propofol dose was reduced due to MAP in the 60s. 1L of LR was administered on top of the ongoing IV maintenance fluids at 100cc/hr. Following this, the MAP remained stable above 65. At 6:50 PM on 05/09, an ABG revealed a pH of 7.28, pCO2 of 55, and pO2 of 70, indicative of respiratory acidosis. Patient was given 5 grams of magnesium and 15 mg of albuterol over the course of an hour to promote bronchodilation. Magnesium also needed to be repleted. A repeat ABG showed normalization of the respiratory parameters. Patient's Hawkins catheter was removed and replaced with a QiVi catheter overnight per the patient's father?s request. However, the patient developed urinary retention. A bladder scan performed at 6 AM showed 295cc of retained urine, and a subsequent scan in the afternoon revealed 439cc. Primary team consulted ICU team. On 05/09, two rapid responses were initiated due to the patient?s escalating agitation and anxiety. Patient appeared to be in significant pain from his paraphimosis. The primary team consulted the ICU for further management, as the patient had already received diazepam, haldol, versed, and dilaudid earlier that morning, with inadequate relief. Additionally, there was concern over a decline in his pO2 levels. The initial ABG at 11:56 showed: pH 7.40, pCO2 40, pO2 131, HCO3 25. A repeat ABG at 13:40 revealed: pH 7.27, pCO2 43, pO2 53, HCO3 20. Upon evaluation by the ICU team, the patient was noted to be extremely agitated and wearing an oxygen mask, with audible gurgling sounds coming from the upper airway, raising concern for potential airway compromise. Given the risk of inadequate airway protection, the decision was made to transfer the patient to the ICU for intubation and further management. In the ICU, the patient was intubated. Urology, Dr. Vargas, was consulted earlier in the day. He was able to successfully perform a reduction of the paraphimosis. Telemetry Course: Patient was admitted to telemetry for further workup and management of sepsis of unknown source, with concern for meningitis. Empiric broad-spectrum antibiotic and antiviral therapy were started, consisting of ceftriaxone 2g IV twice daily, vancomycin (pharmacy to dose), ampicillin, and acyclovir. Neurology was consulted. CT of the orbit, sella, and inner ear was ordered given the patient?s history of acute mastoiditis, which showed severe bilateral chronic mastoiditis, bilateral otitis externa, bilateral otitis media, and bilateral cholesteatomas in the attics. CT head was also performed and was negative for acute hemorrhage, mass effect, or midline shift. Findings included prominent sphenoid, ethmoid, and maxillary antral sinusitis, bilateral chronic mastoiditis, bilateral otitis media, and opacification in the bilateral attics. For the patient?s seizures, his home medications of valproic acid and levetiracetam were restarted. Orders for midazolam and Haldol were placed as needed for breakthrough seizures and agitation. An ice pack was ordered for his paraphimosis. Infectious disease was also consulted. History of Present Illness: 24-year-old male with a past medical history significant for cerebral palsy, asthma, seizure disorder, chronic mastoiditis (previously treated with tympanostomy tube placement for recurrent otitis media, now removed), recurrent pneumonia, and chronic PEG tube dependence, presented to the ED on 05/08/2025 with a fever lasting over 24 hours. The patient also had a witnessed seizure episode lasting 5-10 seconds, characterized by tonic-clonic activity confined to the left side of the body. ED Course: -Initial vitals were: BP 122/84, HR 176, RR 26, T 105F, O2 sat 96% on room air. -Labs significant for: CBC showed a WBC of 16.3. CMP showed Na 148, K 5.2, Cl 107, bicarbonate 18.7, anion gap 22, creatinine 1.3 (baseline 0.7), lactic acid 3.2, alkaline phosphatase 120, LDH 352, total CK 1048, procalcitonin: 0.14. Urinalysis negative. Influenza A/B testing was negative. -Imaging included: EKG showed supraventricular tachycardia of HR [address] and T-wave abnormality. CXR showed no aspiration pneumonia but was noted to be of poor inspiratory effort. CT CAP w/o contrast seemed to show no gross infiltrates or other notable findings but was noted to be severely degraded by patient motion. -In the ED, patient was given acetaminophen 975 mg, ceftriaxone 1 gram IV, midazolam 2 mg IV x1, albuterol 2.5 mg, Zosyn 3.375 gram, 2 L NS fluid infusion, and 1 L LR fluid infusion. In the ED, the patient was agitated and pulled out his IV. Attempts at peripheral access were unsuccessful, and a right femoral central line was placed. Exam Vital Signs Temp Pulse Resp BP Pulse Ox O2 Del Method O2 Flow Rate 97.6 F 93 18 140/79 H 100 Mechanical Ventilation 35 05/26/25 04:00 05/26/25 06:32 05/26/25 06:32 05/26/25 06:32 05/26/25 06:32 05/26/25 06:00 05/16/25 12:00 FiO2 30 05/26/25 06:32 Narrative Exam Physical Exam General: sedated and intubated, nonverbal at baseline, not in acute distress. RASS score -4 (no response to voice, but movement to noxious stimuli). Head: Normocephalic, atraumatic. Eyes: PERRL. Anicteric. Bilateral lateral eye scleral hemorrhage. Mouth/Throat: Poor dentition. Oral mucosa moist with excessive secretions. ETT in place. Cardiovascular: No murmur. RRR. Respiratory: Rhonchi to auscultation in bilateral lung thompson, improved. Gastrointestinal: PEG tube in place, site is clean, dry and intact. Soft, no guarding or rebound tenderness. Extremities: Contracted and swollen hands. No LE edema, cyanosis, mottling, clubbing. 2+ radial pulse bilaterally, 2+ posterior tibial pulse bilaterally. Objective Labs 05/26/25 04:50 05/26/25 04:50 Labs: Laboratory Results - last 24 hr 05/19/25 05/25/25 05/25/25 04:20 11:00 12:45 WBC RBC Hgb Hct MCV MCH MCHC RDW Std Deviation Plt Count Neut % (Auto) Lymph % (Auto) [place] % (Auto) Eos % (Auto) Baso % (Auto) Neut # (Auto) Lymph # (Auto) [place] # (Auto) Eos # (Auto) Baso # (Auto) Immature Gran # (Auto) Absolute Nucleated RBC Immature Gran % Nucleated RBC % PT 10.8 INR 1.0 APTT 34.7 Sodium Potassium Chloride Carbon Dioxide Anion Gap BUN Creatinine Estim Creat Clear Calc eGFR BUN/Creatinine Ratio Glucose Calculated Osmolality Calcium Corrected Calcium Phosphorus Magnesium Total Bilirubin AST ALT Alkaline Phosphatase Total Protein Albumin Globulin Albumin/Globulin Ratio Triglycerides Coccidioides IgM Ab Negative CMV Specimen Source PLASMA CMV DNA Quant PCR <34.5 DETECTED A CMV Qnt PCR copies/mL <1.54 DETECTED A 05/26/25 04:50 WBC 10.3 RBC 2.86 L Hgb 8.0 L Hct 24.6 L MCV 86 MCH 28.0 MCHC 32.5 RDW Std Deviation 46.5 H Plt Count 711 H D Neut % (Auto) 60 Lymph % (Auto) 20 [place] % (Auto) 14 H Eos % (Auto) 4 Baso % (Auto) 1 Neut # (Auto) 6.2 Lymph # (Auto) 2.0 [place] # (Auto) 1.5 H Eos # (Auto) 0.4 Baso # (Auto) 0.1 Immature Gran # (Auto) 0.10 H Absolute Nucleated RBC 0.00 Immature Gran % 1 H Nucleated RBC % 0 PT INR APTT Sodium 139 Potassium 5.2 H Chloride 101 Carbon Dioxide 24.0 Anion Gap 14 BUN 22 Creatinine 0.5 L Estim Creat Clear Calc 182.8 eGFR > 60 BUN/Creatinine Ratio 44 H Glucose 83 Calculated Osmolality 279 Calcium 9.4 Corrected Calcium 9.9 Phosphorus 6.5 H Magnesium 1.8 Total Bilirubin 0.3 AST 38 H ALT 44 Alkaline Phosphatase 134 H Total Protein 5.9 Albumin 3.4 L D Globulin 2.5 Albumin/Globulin Ratio 1.4 Triglycerides 275 H Coccidioides IgM Ab CMV Specimen Source CMV DNA Quant PCR CMV Qnt PCR copies/mL ABG Interpretation ABG results: 05/09/25 05/09/25 05/09/25 11:56 13:40 18:50 ABG pH 7.40 7.27 L D 7.28 L ABG pCO2 40 43 55 H D ABG pO2 131 H 53 L* D 70 L ABG HCO3 25 20 26 ABG O2 Saturation 99 H 81 L 92 ABG Base Excess 0 -7 L -2 05/10/25 05/11/25 05/12/25 00:14 05:06 01:18 ABG pH 7.35 7.33 L 7.39 ABG pCO2 42 D 54 H D 48 ABG pO2 103 D 93 94 ABG HCO3 23 28 H 29 H ABG O2 Saturation 99 H 98 98 ABG Base Excess -3 2 3 05/12/25 05/12/25 05/13/25 03:58 11:50 05:10 ABG pH 7.46 H 7.39 7.19 L* D ABG pCO2 41 48 60 H D ABG pO2 105 58 L* D 114 H D ABG HCO3 29 H 29 H 23 ABG O2 Saturation 99 H 90 L 98 ABG Base Excess 5 H 4 H -6 L 05/17/25 05/18/25 05/19/25 01:30 04:09 04:43 ABG pH 7.38 7.43 7.47 H ABG pCO2 46 44 43 ABG pO2 90 83 80 L ABG HCO3 27 H 29 H 31 H ABG O2 Saturation 98 97 97 ABG Base Excess 2 5 H 7 H 05/21/25 05/21/25 04:18 06:33 ABG pH 7.37 D 7.46 H ABG pCO2 50 H 38 D ABG pO2 40 L* D 121 H D ABG HCO3 29 H 27 H ABG O2 Saturation 66 L 100 H ABG Base Excess 3 3 Quality Measures Quality Measures VTE prophylaxis (SCDs) and sepsis Current suspected stage: ruled out Possible source: pulmonary Blood cultures ordered: yes Antibiotic ordered: No Assessment & Plan Assessment Current Active Medications: Generic Name Dose Route Start Last Admin Trade Name Freq PRN Reason Stop Dose Admin Albuterol/Ipratropium 3 ml 05/09/25 18:19 05/20/25 01:36 Albuterol/Ipratropium (Duoneb) Rt Racquel 3 Ml [facility] 06/08/25 18:18 3 ml Q2HR PRN Administration SHORTNESS OF BREATH OR WHEEZE Calcium Carbonate 600 mg 05/20/25 18:20 05/26/25 08:27 Calcium Carbonate 600 Mg Tablet GT 06/19/25 18:19 600 mg QDAY KYA Administration Clonazepam 2 mg 05/26/25 14:00 Clonazepam 0.5 Mg Tablet PO 05/31/25 13:59 TID KYA Enoxaparin Sodium 40 mg 05/23/25 11:15 05/25/25 09:25 Enoxaparin Sod Inj 40 Mg/0.4 Ml Syringe SC 06/06/25 11:14 40 mg On Hold: 05/26/25 02:00 QDAY KYA Administration Guaifenesin 200 mg 05/24/25 20:31 05/24/25 20:54 Guaifenesin Syrup 200 Mg/10 Ml Udc GT 06/23/25 20:30 200 mg QID PRN Administration ET secretions Protocol Valproic Acid 187.5 mg/ Sodium 51.875 mls @ 51.875 mls/hr 05/09/25 18:00 05/26/25 08:17 Chloride IV 06/07/25 17:59 Infused Q6HR KYA Infusion Protocol Propofol 1,000 mg in 100 mls @ 2.103 mls/hr 05/13/25 04:16 05/26/25 09:15 Diprivan Ivpb IV 06/12/25 04:15 45 mcg/kg/min .Q24H PRN 18.927 mls/hr PER PROTOCOL Administration Protocol 5 MCG/KG/MIN Fentanyl Citrate 2,500 mcg in 250 mls @ 2.5 mls/hr 05/23/25 11:38 05/26/25 09:00 Sublimaze Inj 2,500 Mcg/250 Ml Bag IV 05/28/25 08:44 125 mcg/hr .Q24H PRN 12.5 mls/hr PER PROTOCOL Titration Protocol 25 MCG/HR Levetiracetam 1,000 mg 05/20/25 21:00 05/26/25 08:27 Levetiracetam Inj 100 Mg/Ml Vial 5ml IV 06/19/25 20:59 1,000 mg BID KYA Administration Ofloxacin 5 drop 05/21/25 14:45 05/26/25 08:28 Ofloxacin Op Racquel 0.3% 5 Ml Btl BOTH EARS 05/31/25 14:44 5 drops BID KYA Administration Ondansetron HCl 4 mg 05/08/25 11:36 Ondansetron Inj 2 Mg/Ml Inj 2 Ml IVP 06/07/25 11:35 Q6HR PRN NAUSEA OR VOMITING Protocol Oxycodone HCl 15 mg 05/26/25 14:00 Oxycodone Hcl 5 Mg Ir Tab PO 05/31/25 13:59 TID KYA Pantoprazole Sodium 40 mg 05/24/25 09:00 05/26/25 08:27 Pantoprazole Inj 40 Mg Vial IVP 06/23/25 08:59 40 mg QDAY KYA Administration Phenobarbital 259.2 mg 05/23/25 11:30 05/26/25 05:52 Phenobarbital 32.4 Mg Tablet GT 06/06/25 11:29 259.2 mg Q6HR KYA Administration Polyethylene Glycol 17 gm 05/16/25 09:15 05/26/25 08:28 Polyethylene Glycol 17 Gm Packet PO 06/15/25 09:14 17 gm QDAY KYA Administration Propranolol HCl 10 mg 05/25/25 14:00 05/26/25 05:53 Propranolol 10 Mg Tablet PO 06/24/25 13:59 10 mg TID KYA Administration Sevelamer Carbonate 800 mg 05/23/25 08:00 05/26/25 08:27 Sevelamer Carbonate 800 Mg Tablet GT 06/22/25 07:59 800 mg TIDWM KYA Administration Sodium Chloride 3 ml 05/17/25 11:43 Sodium Chloride Rt Racquel 0.9% 3 Ml [facility] INH 06/16/25 11:42 PRN PRN SOLN Plan 24-year-old male with cerebral palsy, asthma, seizure disorder, chronic mastoiditis, recurrent pneumonia, and chronic PEG tube dependence presented with fever and seizure, was admitted for sepsis workup, and later transferred to the ICU for intubation due to concerns about airway protection. Neurology #Agitated delerium Patient was extremely agitated before ICU admission, likely due to pain from paraphimosis. Patient initially sedated with propofol and fentanyl, titrated to Precedex with Benadryl before extubation. Patient failed extubation and was intubated on 05/12. Propofol and fentanyl was restarted. Diagnostic Test: - 05/26 AM: RASS was -4, no response to voice but movement to physical stimuli. - EEG did not show seizure activity per neurology. - MRI brain 05/23: showed chronic infections, no acute pathology. Treatment Review (completed) - Versad 5mg/h was tapered off on 05/15. - Midazolam 4mg --> 8mg gtt 05/18-05/19. - Oxycodone 10mg GT TID 05/17- Treatment Plan: - Propranolol 10 mg TID. - Phenobarbital 260 mg Q6H. - Clonazepam 2 mg TID. - Oxycodone 15 mg TID. - Fentanyl 125 and Propofol 45, will try to wean off Fentanyl as tolerated. - If continues to be on Propofol, recheck TG on 05/29 (every 72 hours). - Versad 4mg PRN if patient starts to get agitated. - Neurology consulted, appreciate recommendations. Plan for repeat LP today (05/26). #History of seizures #Cerebral palsy Diagnosis: - Temperature of 105F on admission. - EEG 05/11 unremarkable - Repeat EEG 05/20: electrographic seizure activity. - Persistent fever spikes. - Continuous EEG 05/22-05/23: no seizure activity or status epilepticus. Treatment Plan: - Levetiracetam 1000 mg BID. - Valproic acid 187.5 mg Q6H. - Adjust seizure medications if breakthrough seizures persist. - Seizure precautions. - Aspiration precautions. Cardiovascular #Sinus tachycardia (resolved) DDx: fevers vs hypersympathetic activity. Diagnostic Test: - Fever spikes associated with tachycardia, tachypnea Treatment Plan: - No specific treatment required at this time. Infectious disease workup remains unrevealing. Unsure of the cause of fever spikes which are associated with tachycardia and tachypnea. - Continue close cardiac monitoring. - Monitor electrolytes and replete as needed. - Maintain Mg > 2 and K > 4 to reduce arrhythmia risk. Respiratory #Failed extubation 05/12 #Acute hypoxic respiratory failure Diagnostic Test: - CXR 05/11: Mild bilateral perihilar pneumonia. To assess for ventilator associated pneumonia. Not much change from 05/09 CXR. - Resistant Pseudomonas from ETT secretions previously (05/09). - CXR 05/19: Significant bilateral pneumonia. Treatment Review (completed): - Patient extubated to [facility] 05/12, chest film with centro-bronchovascular congestion and multifocal pneumonia. - Reintubated overnight 05/13- VC/AC PPeak 20 PEEP 5 FiO2 40%. - Patient underwent bronchoscopy on 05/14 and 05/17 for secretions, well tolerated. - Meropenem (05/12-05/17, 05/19-05/22, for a total of ten days). - Meropenem reinitiated for extended course for chronic sinusitis Treatment Plan: - 05/20 sputum culture grew 2+ yeast, speciation pending. - Repeat Cocci serology test was ordered. - Bronchoscopy fungal culture pending. - Chest physiotherapy PRN. - Given the patient's current condition, including severe tachycardia and excessive secretions, he is not considered a suitable candidate for extubation at this time. Therefore, mechanical ventilation will be continued to support respiratory status. - Continue MV settings: PEEP 6.0, Ppeak 25.1, Pplateau 10.9. VT 400, RR 18, FiO2 30. - Conversations had with family regarding patient's respiratory status, agreed to tracheostomy - General Surgery consulted for tracheostomy. Plan to do tracheostomy today 05/26. #Bronchospasm #History of asthma Diagnostic Test: - Although the patient has a history of asthma, the bronchospasm is most likely from the irritant effect of blood in the airway. A small amount of blood, which was likely from dryness of the nasal mucosa, was suctioned out during intubation. Treatment Plan: - Magnesium for bronchodilator effect as needed. - Albuterol and Ipratropium as needed. GI, , F/E/N #Chronic PEG tube dependence Treatment Plan: - Jevity 1.5 at 40 ml/hr x 24 hrs via PEG tube by pump (goal). If no IV fluids, water flushes of 55 ml/hr. - ProStat 30ml BID via PEG tube. - Appreciate front end web developer recommendations. - Triglyceride level 05/14 - 290; 05/17 - 312; 05/20 - 221; 05/26 - 275. - Repeat TG levels every 72 hours when on Propofol, which should be discontinued if triglyceride levels reach or exceed 400 mg/dL to prevent hypertriglyceridemia-associated complications. - Next check 05/29 is patient remains on Propofol. #Hepatitis (downtrending) Likely due to meropenem or tylenol that could potentially cause hepatotoxicity. Diagnostic Test: - Gallbladder ultrasound 05/16: Normal gallbladder, no gallstones. Fatty infiltration throughout the liver. - Lipase 05/16: 41 wnl. Treatment Plan: - Continue daily LFTs. - Avoid acetaminophen unless fever exceeds 101.0?F or Ibuprofen as alternative. - Will reassess if transaminases continue to rise or clinical status changes. #Acute urinary retention Treatment Plan - Monitor urine output, replace fluid if needed. - Hawkins removed 05/23 - Every 4 hour bladder scan and straight cath as needed. #Hypoalbuminemia (resolved) Likely due to acute hepatitis Diagnostic Test: - UA had urine proteins 1+. - Albumin 4.9 -->3.3 -->2.8 --> 3.2 --> 3.4 --> 2.8 --> 2.5. Treatment Plan: - Monitor LFTs, INR, and bilirubin. - Maintain on PEG tube feeds per front end web developer recommendations. #Paraphimosis (resolved) #Balanitis (resolved) Diagnostic Test: - Edema and tenderness of the glans penis. - Swelling of the distal retracted foreskin. - Constricting band of tissue proximal to the head of the penis at the coronal sulcus. - Hawkins was removed on 05/09 and transitioned to Oivi external urinary catheter. Discussed with family about the need to reinsert hawkins due to the patient's acute urinary retention. Family were in agreement with this plan. Hawkins was reinserted on 05/10 due to urinary retention. Hawkins changed and replaced on 05/16. - S/p reduction of the paraphimosis by Dr. Vargas on 05/09. Treatment Plan: - Control patient's pain with sedation. - Monitor urine output. Renal #Hyperkalemia (resolved) #Hyperphosphatemia (downtrending) DDx: acute kidney injury vs hemolysis vs rhabdomyolysis. Diagnostic Test: - Potassium 5.2. - Phosphorus 6.7 - CK 363. - LDH 350. - Uric acid 3.5. - Hemoglobin 8.8. - Cr 0.6. Treatment Plan: - Monitor BMP and phosphorus. - Monitor potassium levels to avoid arrhythmias. - Sevelamer 800 milligram GT 3 times daily, will adjust if needed. #Acute kidney injury (resolved) DDx: dehydration or vasodilation from sepsis. Diagnositc Test: - Creatinine 1.3 (baseline: 0.7) Treatment Plan: - Continue with free water flushes. - Daily renal panel to trend BUN, Cr, and electrolytes. - Avoid nephrotoxins. - Renally dose meds as appropriate. - Strict I&Os, monitor urine output closely. - Monitor for signs of volume overload or uremic symptoms. #Anion Gap Metabolic Acidosis (resolved) #Lactic acidosis (resolved) DDx: seizures vs sepsis vs acute kidney injury vs hypoperfusion. Likely from seizures as patient has no signs of systemic hypoperfusion such as skin mottling, decreased cap refills. Diagnostic Test: - Admission anion gap 22, lactic acid 16.0, bicarbonate 18.7. Treatment Plan: - Recheck LA as needed. #Rhabdomyolysis (resolved) DDx: seizures vs hyperthermia vs infectious myositis. Diagnostic Test: - CK 1048 --> 3743 --> 1654 --> 338 --> 363. - Witnessed seizure episode lasting 5-10 seconds, characterized by tonic-clonic activity prior to admission. Treatment Plan: - Continue free water flushes at 35 cc/hr. - Monitor urine output. - Correct electrolyte abnormalities. - Control seizures with valproic acid and levetiracetam. - Monitor renal panel. Heme #Acute nonocclusive thrombus in the left brachial vein Diagnostic Test: - Venous doppler study of upper extremities 05/16: Normal right upper extremity deep venous system. Positive for nonocclusive thrombus in the left brachial vein. - Per chart review and patient's parents, patient does not have history of clots. Treatment Review (completed): - Lovenox 30 mg (05-11 - 05/15). - Lovenox 40 mg (05/16). - Heparin loading dose and ggt. Lovenox to heparin due to heparin?s shorter half-life, which allows for more rapid cessation in the event of bleeding, a shorter half life and can be stopped if bleeding occurs. - Stopped heparin ggt due to hematuria on 05/18. Treatment Plan: - Lovenox 40 mg SC QD. Resume Lovenox after tracheostomy. - Primary upper extremity deep vein thrombosis, anticoagulation should be continued for a minimum of three months following the initial thrombotic event. #Normocytic Anemia DDx: Anemia of Inflammation vs dilutional anemia vs drug-induced anemia. Likely dilutional anemia since patient had normal hemoglobin on admission and from IV fluids per sepsis protocol. No signs of bleeding. Treatment Plan: - Monitor H&H. - Type and screen. - Transfusing for Hgb <7 or symptomatic. #Thrombocytosis DDx: infection vs reactive Diagnostic Test: - Plt 711. Treatment Plan: - Monitor CMP. #Leukocytosis (resolved) DDx: likely due to bronchoscopy vs infection of unknown source vs drug induced Diagnostic Test: - Continue to have fever spikes as high as 102.8?F. - Increase WBCs 8.9 --> 11.1 after bronchoscopy on 05/14. - Increase WBCs 14.7 --> 16.1 after bronchoscopy on 05/17. Treatment Plan: - Treat underlying cause. #Thrombocytopenia (resolved) DDx: Dilutional versus consumption versus increased destruction due to sepsis. Initial decrease is likely due to dilutional in setting of IV fluids, however his WBC and hemoglobin have leveled off platelets have down trended. Diagnostic test: - Platelets: 209 --> 65-->141. Treatment plan: - Monitor daily labs - Avoid excessive oral tracheal suctioning in setting of previous bleed and thrombocytopenia. Endo #no active problems ID #Sepsis #Bilateral chronic mastoiditis #Sinusitis #Bilateral otitis media #Bilateral otitis externa DDx: meningitis vs acute on chronic mastoiditis vs acute febrile illness. Diagnostic Test: - History of chronic mastoiditis. - Met SIRS criteria on admission: T 105F, HR 176, RR 26, PaCO2 26, WBC 16.3. - 05/08 Lactic acid 16.0. - 05/08 CT Head: prominent sphenoid ethmoid maxillary antral sinusitis, bilateral chronic mastoiditis, bilateral otitis media. - 05/08 CT Orbit Sella Inner: severe bilateral chronic mastoiditis, bilateral otitis externa and otitis media, bilateral cholesteatomas in the attics. - 05/08 MRSA screen negative. - 05/09 Sputum culture: 1+ thurman resistance Pseudomonas. - 05/10 Lumbar puncture: clear, WBC 3, glucose 70, total protein 25. CSF testing negative. - 05/10 Respiratory viral panel: rhinovirus/enterovirus and human metapneumovirus detected. - 05/12 Bilateral ear culture: E coli ESBL. - UA 05/08 and 05/16 negative. - Blood culture 05/08, 05/11, and 05/16 negative. - 05/16 CTAP: Extensive bilateral pneumonia, cystitis pattern, cholelithiasis. - 05/16 CXR: worsening diffuse severe left lung pneumonia. - 05/16 CT Head: unremarkable. Treatment Review (completed) - Rocephin 2 gm IV q12HR [05/08-05/11]. - Vancomycin dosed by pharmacy [05/08-05/11] since MRSA screen is negative. - Acyclovir 700 mg IV [05/08-05/11] since LP negative. - Fluids: 30mL/kg -- 2 L NS fluid infusion and 1 L LR fluid infusion was given in the ED. - Femoral central line removed 05/11, replaced with peripheral access. Treatment Plan: - Topical oxofloxacin. - Patient has limited options in terms of antibiotics in the future as meropenem is broad-spectrum. May have to consider ceftazidime or ceftaroline if he continues to develop recurrent infections. - Sputum culture grew 2+ yeast, speciation pending. Yeast is a common colonizer in intubated patients. - A repeat Cocci serology test was ordered. Integumentary #Maculopapular rash to the buttocks DDx: contact dermatitis vs allergic dermatitis Treatment Plan - Patient no longer has diaper on. Anticipate rash to improve. Health Maintenance DVT prophylaxis: SCDs, hold Levonox 40mg QD for surgery. GI prophylaxis: Protonix IV Diet: Jevity Hawkins: none. Straight cath in/out q4h if urine retention more than 400 ml Lines: Peripherals Drips: Propofol, fentanyl. Vent: MV, PPlat <30 and TV < 8 ml/kg IBW CODE STATUS: FULL CODE Patient plan of care was discussed with the senior resident, Dr. Baer, and attending physician, Dr. Baeza. Diaz Coppola, DO Internal Medicine PGY-1
[2025-05-26 11:52] LABS: INR 1.0 (0.9-1.3); Partial Thromboplastin Time 33.5 Seconds (22.0-36.0); Prothrombin Time 10.6 Seconds (9.0-12.2)
--- NOTE | 2025-05-26 11:56 | PD.SUROPNT ---
Date of Procedure 05/26/25 Pre Op Diagnosis Respiratory failure Post Op Diagnosis Respiratory failure Procedure Open tracheostomy with size 8 extra long cuffed tracheostomy Findings Moderate amount of tracheal secretions Procedure Description Patient brought into the operating room in supine position. After administration of general endotracheal anesthesia, patient's neck was extended, prepped and draped in standard surgical manner. An approximately 3 cm semicircular incision was made approximately 2 fingerbreadths above the sternal notch. Dissection was carried to subcutaneous tissue and platysma was divided. Median raphae was identified and excised. The thyroid tissue overlying the trachea was divided and suture ligated on both sides. The trachea was then cleared from overlying tissue. 2 tacking sutures using 2-0 Prolene placed around the third tracheal rings on both sides. An approximately 1 cm tracheotomy was performed at the level of second tracheal ring in the was extended distally. The anesthesiologist was instructed to pull the orotracheal tube until the tip was just beyond the tracheotomy site. Once this was done a size 8 extra long tracheostomy was placed through the tracheotomy site and the cuff was inflated. The tracheostomy was then connected to the ventilator where patient was being ventilated without difficulty with normal end tidal CO2. The tracheostomy site was then suctioned with moderate amount of tracheal secretions noted. Hemostasis was adequate and satisfactory. Appropriate sterile dressings applied. The tacking sutures were secured on patient's chest with Steri-Strips. A Velcro was placed around the patient's neck to further secure the tracheostomy. Patient tolerated the procedure well. He remained hemodynamically stable and transferred to the intensive care unit. Instruments, needles and sponge counts were reported to be correct ?2. Anesthesia GETA and local Pathology / specimen None Estimated Blood Loss 5 Condition Stable Disposition ICU Surgeon Marcello Jin MD Surgical Staff Operation Date: 05/26/25 14:00 Case Staff REGIONAL ENGINEER: John Rosas RNcarpet or rug layer helper: Dori Burroughs
[2025-05-26] MEDS: oxyCODONE HCL 5 MG IR TAB 15 MG PO ×2 (13:09→21:42)
[2025-05-26] MEDS: PROPOFOL 1,000 MG IVPB 1,000 MG/100 ML VIAL 12.618 MG IV (16:29)
[2025-05-26 20:54] LABS: Coccid Serology, CF CSF (UCD)* See Sep Rpt
[2025-05-26 20:58] LABS: CSF Cell Count Tube # Tube # 4; CSF Color Colorless (Colorless); CSF, Appearance Clear (Clear)
[2025-05-26 21:02] LABS: CSF Mononuclear 100.0 %; CSF White Blood Cell 1 /cmm
[2025-05-26] MEDS: fentaNYL 2,500 MCG/250 ML BAG 2,500 MCG/250 ML BAG 7.5 MCG IV (21:12)
[2025-05-26 21:17] LABS: CSF Red Blood Cell 2 /cmm; Glucose,CSF 47 mg/dL (40-70); Protein Total,CSF 36 mg/dL (8-32)
[2025-05-26] MEDS: IBUPROFEN SUSP 100 MG/5 ML UDC GT (21:43)
[2025-05-26 22:17] LABS: CSF Polynuclear WBC 0 %
--- NOTE | 2025-05-26 22:21 | ESPR_ITS ---
Documentation for date of: 05/26/25 Subjective Subjective Interval history: Patient was seen in ICU today at the bedside. He underwent tracheostomy today and Continued to remain on mechanical ventilatory support on sedation. No clinical seizures reported overnight. Exam - Neurology Vital Signs Temp Pulse Resp BP Pulse Ox O2 Del Method O2 Flow Rate 102.4 F H 143 H 26 H 154/83 H 100 Mechanical Ventilation 35 05/26/25 21:43 05/26/25 21:42 05/26/25 18:24 05/26/25 21:42 05/26/25 20:00 05/26/25 16:00 05/16/25 12:00 FiO2 30 05/26/25 18:24 Narrative Exam GENERAL APPEARANCE: Developmentally delayed male , intubated and on mechanical ventilatory support HEENT: Normocephalic, atraumatic, Pupils: Equal reacting to light NECK: Supple, no JVD or bruits. CARDIOVASULAR: Heart: S1, S2 heard, regular without S3-S4 or murmur no rubs or gallops. LUNGS/CHEST: Breath sounds heard equally bilaterally, bilateral Rales and rhonchi heard. ABDOMEN: Soft, nontender, with normal bowel sounds. No pulsatile masses. No rebound, rigidity, or guarding. Normal inspection and palpation. EXTREMITIES: Normal inspection and palpation. No edema, clubbing or cyanosis. SKIN: Warm and dry without rashes. Normal inspection. NEURO: Limited from sedation, brainstem function: partly Intact, moves all extremities. PSYCHIATRIC: Limited Objective Labs 05/26/25 04:50 05/26/25 04:50 Labs: Laboratory Results - last 24 hr 05/19/25 05/26/25 05/26/25 04:20 04:50 10:40 WBC 10.3 RBC 2.86 L Hgb 8.0 L Hct 24.6 L MCV 86 MCH 28.0 MCHC 32.5 RDW Std Deviation 46.5 H Plt Count 711 H D Neut % (Auto) 60 Lymph % (Auto) 20 Ross % (Auto) 14 H Eos % (Auto) 4 Baso % (Auto) 1 Neut # (Auto) 6.2 Lymph # (Auto) 2.0 Ross # (Auto) 1.5 H Eos # (Auto) 0.4 Baso # (Auto) 0.1 Immature Gran # (Auto) 0.10 H Absolute Nucleated RBC 0.00 Immature Gran % 1 H Nucleated RBC % 0 PT 10.6 INR 1.0 APTT 33.5 Sodium 139 Potassium 5.2 H Chloride 101 Carbon Dioxide 24.0 Anion Gap 14 BUN 22 Creatinine 0.5 L Estim Creat Clear Calc 182.8 eGFR > 60 BUN/Creatinine Ratio 44 H Glucose 83 Calculated Osmolality 279 Calcium 9.4 Corrected Calcium 9.9 Phosphorus 6.5 H Magnesium 1.8 Total Bilirubin 0.3 AST 38 H ALT 44 Alkaline Phosphatase 134 H Total Protein 5.9 Albumin 3.4 L D Globulin 2.5 Albumin/Globulin Ratio 1.4 Triglycerides 275 H CSF Appearance CSF Color CSF WBC CSF RBC CSF Cell Count Tube # CSF Mononuclear WBCs CSF Polynuclear WBCs CSF Glucose CSF Total Protein CMV Specimen Source PLASMA CMV DNA Quant PCR <34.5 DETECTED A CMV Qnt PCR copies/mL <1.54 DETECTED A 05/26/25 19:30 WBC RBC Hgb Hct MCV MCH MCHC RDW Std Deviation Plt Count Neut % (Auto) Lymph % (Auto) Ross % (Auto) Eos % (Auto) Baso % (Auto) Neut # (Auto) Lymph # (Auto) Ross # (Auto) Eos # (Auto) Baso # (Auto) Immature Gran # (Auto) Absolute Nucleated RBC Immature Gran % Nucleated RBC % PT INR APTT Sodium Potassium Chloride Carbon Dioxide Anion Gap BUN Creatinine Estim Creat Clear Calc eGFR BUN/Creatinine Ratio Glucose Calculated Osmolality Calcium Corrected Calcium Phosphorus Magnesium Total Bilirubin AST ALT Alkaline Phosphatase Total Protein Albumin Globulin Albumin/Globulin Ratio Triglycerides CSF Appearance Clear CSF Color Colorless CSF WBC 1 CSF RBC 2 CSF Cell Count Tube # Tube # 4 CSF Mononuclear WBCs 100.0 CSF Polynuclear WBCs 0 CSF Glucose 47 D CSF Total Protein 36 H CMV Specimen Source CMV DNA Quant PCR CMV Qnt PCR copies/mL ABG Interpretation ABG results: 05/09/25 05/09/25 05/09/25 11:56 13:40 18:50 ABG pH 7.40 7.27 L D 7.28 L ABG pCO2 40 43 55 H D ABG pO2 131 H 53 L* D 70 L ABG HCO3 25 20 26 ABG O2 Saturation 99 H 81 L 92 ABG Base Excess 0 -7 L -2 05/10/25 05/11/25 05/12/25 00:14 05:06 01:18 ABG pH 7.35 7.33 L 7.39 ABG pCO2 42 D 54 H D 48 ABG pO2 103 D 93 94 ABG HCO3 23 28 H 29 H ABG O2 Saturation 99 H 98 98 ABG Base Excess -3 2 3 05/12/25 05/12/25 05/13/25 03:58 11:50 05:10 ABG pH 7.46 H 7.39 7.19 L* D ABG pCO2 41 48 60 H D ABG pO2 105 58 L* D 114 H D ABG HCO3 29 H 29 H 23 ABG O2 Saturation 99 H 90 L 98 ABG Base Excess 5 H 4 H -6 L 05/17/25 05/18/25 05/19/25 01:30 04:09 04:43 ABG pH 7.38 7.43 7.47 H ABG pCO2 46 44 43 ABG pO2 90 83 80 L ABG HCO3 27 H 29 H 31 H ABG O2 Saturation 98 97 97 ABG Base Excess 2 5 H 7 H 05/21/25 05/21/25 04:18 06:33 ABG pH 7.37 D 7.46 H ABG pCO2 50 H 38 D ABG pO2 40 L* D 121 H D ABG HCO3 29 H 27 H ABG O2 Saturation 66 L 100 H ABG Base Excess 3 3 Assessment & Plan Additional Assessment & Plan Additional Plan: David Baltazar is 24 yr male with PMH of chronic mastoiditis (previously had tympanostomy tube placed for recurrent otitis media, now removed), seizure disorder, recurrent pneumonia, cerebral palsy, chronic PEG tube, and asthma who was brought into ED on 05/08/25 for ongoing fever of over 24 hours and reported episode of witnessed seizure by ED. Patient was septic. Neurology was consulted. #Chronic pansinusitis #rule out Meningitis #Tonic clonic seizure #Cerebral palsy -continue higher dose of IV Keppra and Depakote, phenobarbital -seizure precautions -midazolam for breakthrough seizure as needed MRI brain: chronic pansinusitis. Follow-up with repeat EEG with 6 hours monitoring to look for abnormal activity in the temporal areas. Underwent repeat LP today with no complications FU with CSF analysis. #Paraphimosis #Normocytic Anemia Primary care team to manage above conditions and ongoing care needs.
--- NOTE | 2025-05-26 22:29 | PD.EVENT ---
Documentation for date of: 05/26/25 Date of procedure: 05/26/25 Pre-op diagnosis: Encephalopathy Post-op diagnosis: Same Consent signed by: Parent Position: lateral decubitus Prep: betadine Anesthesia: 1 % Lidocaine Sedation: none Needle size: 22ga Needle length: 3.5 Interspace: L3-4 Number of attempts: 3 Opening pressure: # cm H2O (36) Fluids mLs collected: 12 Fluid description: clear Complications: No Patient tolerance: Good Procedure performed by: Darryl Lang Condition: Stable Disposition: ICU
[2025-05-26] MEDS: PROPOFOL 1,000 MG IVPB 1,000 MG/100 ML VIAL 16.824 MG IV (22:47)
[2025-05-27] VITALS (38 sets, daily range): BP systolic 117–174; BP diastolic 64–91; PULSE 91–146; RESP 18–37; TEMP 36.2–40; O2SAT 95–100
[2025-05-27] MEDS: IBUPROFEN SUSP 100 MG/5 ML UDC GT (03:25)
[2025-05-27] MEDS: PROPOFOL 1,000 MG IVPB 1,000 MG/100 ML VIAL 16.824 MG IV ×3 (04:29→17:30)
[2025-05-27] MEDS: PROPRANOLOL 10 MG TABLET PO ×3 (05:42→21:01)
[2025-05-27] MEDS: oxyCODONE HCL 5 MG IR TAB 15 MG PO ×3 (05:42→21:01)
[2025-05-27 06:34] LABS: Basophils # (Auto) 0.1 Thou/mm3 (0.0-0.2); Basophils % (Auto) 1 % (0-2.5); Eosinophils # (Auto) 0.1 Thou/mm3 (0.0-0.5); Eosinophils % (Auto) 1 % (0-10); Hematocrit 33.3 % (41.0-53.0); Hemoglobin 10.6 g/dL (13.5-16.0); Immature Granulocytes Auto 0.11 Thou/mm3 (0.00-0.00); Lymphocytes # (Auto) 1.1 Thou/mm3 (1.0-4.8); Lymphocytes % (Auto) 11 % (10-50); Mean Corpuscular HGB Conc 31.8 g/dl (31.0-37.0); Mean Corpuscular Hemoglobin 28.0 pg (25.0-35.0); Mean Corpuscular Volume 88 fL (80-100); Monocytes # (Auto) 1.1 Thou/mm3 (0.0-0.8); Monocytes % (Auto) 11 % (0-12); Neutrophils # (Auto) 7.5 Thou/mm3 (1.8-7.7); Neutrophils % (Auto) 76 % (37-80); Nucleated Red Blood Cell # 0.00 Thou/mm3 (0.00-0.00); Nucleated Red Blood Cell % 0 /100 WBC (0); Platelet Count 612 Thou/mm3 (140-440); RDW Standard Deviation 49.0 fL (35.1-43.9); Red Blood Count 3.79 Miln/mm3 (4.50-5.90); White Blood Count 9.9 Thou/mm3 (3.8-10.6)
[2025-05-27 07:08] LABS: Alanine Aminotransferase 57 U/L (10-49); Albumin, Serum 4.1 gm/dL (3.5-5.0); Albumin/Globulin Ratio 1.1 (1.2-2.2); Alkaline Phosphatase 193 U/L (46-116); Anion Gap 15 (7-16); Aspartate Amino Transferase 56 U/L (0-34); BUN/Creatinine Ratio 23 Ratio (12-20); Bilirubin,Total 1.2 mg/dL (0.3-1.2); Blood Urea Nitrogen 14 mg/dL (9-23); Calcium 10.4 mg/dL (8.3-10.6); Calcium (Corrected) 10.4 mg/dL (8.5-10.1); Carbon Dioxide 20.9 mMol/L (20.0-31.0); Chloride 101 mMol/L (98-107); Creatinine (Component) 0.6 mg/dL (0.6-1.3); Estimated Creatinine Clearance 151.4 mL/min (>60); Globulin 3.6 gm/dL (2.3-3.5); Glucose 82 mg/dL (74-106); Magnesium 1.7 mg/dL (1.6-2.6); Osmolality,Calculated 273 (275-295); Phosphorous 5.8 mg/dL (2.4-5.1); Potassium 4.4 mMol/L (3.4-5.1); Sodium 137 mMol/L (136-145); Total Protein 7.7 gm/dL (5.7-8.2); eGFR > 60 See Note
[2025-05-27] MEDS: POLYETHYLENE GLYCOL 17 GM PACKET PO (08:17)
[2025-05-27] MEDS: levETIRAcetam INJ 100 MG/ML VIAL 5ML 1000 MG IV (08:17)
[2025-05-27] MEDS: Magnesium Sulfate 4 GM Ivpb 4 GM/50 ML BAG IV (08:17)
[2025-05-27] MEDS: CALCIUM CARBONATE 600 MG TABLET GT (08:17)
[2025-05-27] MEDS: OFLOXACIN OP SOL 0.3% 5 ML BTL 5 DROP BOTH EARS ×2 (08:31→21:11)
[2025-05-27] MEDS: SEVELAMER CARBONATE 0.8 GM PACKET (NON-FORMULARY) GT ×3 (08:38→17:10)
--- NOTE | 2025-05-27 09:55 | PD.IDPROG ---
Subjective Subjective Interval history: still on vent. cmv pos but not usually treated Exam Vital Signs Temp Pulse Resp BP Pulse Ox O2 Del Method O2 Flow Rate 99.8 F 117 H 26 H 134/71 H 99 Mechanical Ventilation 35 05/27/25 05:00 05/27/25 07:00 05/26/25 18:24 05/27/25 07:00 05/27/25 07:00 05/27/25 00:00 05/16/25 12:00 FiO2 30 05/27/25 07:50 Narrative Exam having eeg on vent. sedated. exam grossly benign. off abx Objective - Internal Medicine Labs 05/27/25 05:06 05/27/25 05:06 Labs: Laboratory Results - last 24 hr 05/26/25 05/26/25 05/27/25 10:40 19:30 05:06 WBC 9.9 RBC 3.79 L Hgb 10.6 L D Hct 33.3 L MCV 88 MCH 28.0 MCHC 31.8 RDW Std Deviation 49.0 H Plt Count 612 H D Neut % (Auto) 76 Lymph % (Auto) 11 [place] % (Auto) 11 Eos % (Auto) 1 Baso % (Auto) 1 Neut # (Auto) 7.5 Lymph # (Auto) 1.1 [place] # (Auto) 1.1 H Eos # (Auto) 0.1 Baso # (Auto) 0.1 Immature Gran # (Auto) 0.11 H Absolute Nucleated RBC 0.00 Immature Gran % 1 H Nucleated RBC % 0 PT 10.6 INR 1.0 APTT 33.5 Sodium 137 Potassium 4.4 D Chloride 101 Carbon Dioxide 20.9 Anion Gap 15 BUN 14 Creatinine 0.6 Estim Creat Clear Calc 151.4 eGFR > 60 BUN/Creatinine Ratio 23 H Glucose 82 Calculated Osmolality 273 L Calcium 10.4 Corrected Calcium 10.4 H Phosphorus 5.8 H Magnesium 1.7 Total Bilirubin 1.2 D AST 56 H ALT 57 H Alkaline Phosphatase 193 H D Total Protein 7.7 Albumin 4.1 D Globulin 3.6 H Albumin/Globulin Ratio 1.1 L CSF Appearance Clear CSF Color Colorless CSF WBC 1 CSF RBC 2 CSF Cell Count Tube # Tube # 4 CSF Mononuclear WBCs 100.0 CSF Polynuclear WBCs 0 CSF Glucose 47 D CSF Total Protein 36 H Misc Test Result Cancelled ABG Interpretation ABG results: 05/09/25 05/09/25 05/09/25 11:56 13:40 18:50 ABG pH 7.40 7.27 L D 7.28 L ABG pCO2 40 43 55 H D ABG pO2 131 H 53 L* D 70 L ABG HCO3 25 20 26 ABG O2 Saturation 99 H 81 L 92 ABG Base Excess 0 -7 L -2 05/10/25 05/11/25 05/12/25 00:14 05:06 01:18 ABG pH 7.35 7.33 L 7.39 ABG pCO2 42 D 54 H D 48 ABG pO2 103 D 93 94 ABG HCO3 23 28 H 29 H ABG O2 Saturation 99 H 98 98 ABG Base Excess -3 2 3 05/12/25 05/12/25 05/13/25 03:58 11:50 05:10 ABG pH 7.46 H 7.39 7.19 L* D ABG pCO2 41 48 60 H D ABG pO2 105 58 L* D 114 H D ABG HCO3 29 H 29 H 23 ABG O2 Saturation 99 H 90 L 98 ABG Base Excess 5 H 4 H -6 L 05/17/25 05/18/25 05/19/25 01:30 04:09 04:43 ABG pH 7.38 7.43 7.47 H ABG pCO2 46 44 43 ABG pO2 90 83 80 L ABG HCO3 27 H 29 H 31 H ABG O2 Saturation 98 97 97 ABG Base Excess 2 5 H 7 H 05/21/25 05/21/25 04:18 06:33 ABG pH 7.37 D 7.46 H ABG pCO2 50 H 38 D ABG pO2 40 L* D 121 H D ABG HCO3 29 H 27 H ABG O2 Saturation 66 L 100 H ABG Base Excess 3 3 Assessment & Plan A&P Narrative viral findings on pcr testing at health de[facility]. cmv pos in csf initially, repeat pending resp failure fuo I am ok with him off abx entirely. procal has mostly been neg for a long time now so value of more abx seems low. would not target the cmv in csf. not sure why it was checked.if you desire rx, that is ok but value of rx seems low. hardest thing to do is stop meds but that is often what is needed. if you want to try rocephin for the thurman sinusitis that is ok but that should not give him a normal procal and neg LP ongiong fever noted. meenakshi in sputum also not felt to be a pathogen. so would not target the meenakshi either. Time Spent With Patient Time: Total time spent is greater than 50% in coordination of care (as documented) at patient's floor/unit and/or counseling patient:
[2025-05-27 10:38] LABS: Cocci Serology, IgG Negative (Negative)
[2025-05-27] MEDS: IBUPROFEN SUSP 100 MG/5 ML UDC PO (11:22)
--- NOTE | 2025-05-27 12:58 | PD.SURPROG ---
Documentation for date of: 05/27/25 Subjective Subjective Narrative: Patient is seen and examined. No acute overnight events Exam Vital Signs Temp Pulse Resp BP Pulse Ox O2 Del Method O2 Flow Rate 101.3 F H 129 H 26 H 147/80 H 97 Mechanical Ventilation 35 05/27/25 12:28 05/27/25 10:43 05/26/25 18:24 05/27/25 10:43 05/27/25 10:43 05/27/25 00:00 05/16/25 12:00 FiO2 30 05/27/25 10:43 Constitutional Comments: Sedated and ventilated Routine Neck Exam Comments: Tracheostomy in place and intact without significant bleeding or drainage Assessment & Plan Assessment Additional comments: Postop day #1 status post tracheostomy Plan Continue routine tracheostomy care. Please call for any questions PROCEDURES: Procedures Open tracheostomy with size 8 extra long cuffed tracheostomy
--- NOTE | 2025-05-27 15:23 | PC.SS ---
Update: Patient is Trach/PEG. At goal for feedings. Patient on sedation. No pressor support. In possession of fever today. Dr. Jin is consulting. Osborne catheter has been removed.
--- NOTE | 2025-05-27 15:26 | PC.SS ---
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 Team to discuss with patient's family.
[2025-05-27] MEDS: VALPROIC ACID SYRUP 250 MG/5 ML UDC GT ×2 (17:09→21:02)
--- NOTE | 2025-05-27 17:43 | ESPR_ITS ---
<Statement entered by Jeanine Baeza MD - 05/29/25 18:42> TOTAL TIME: 45MINUTES ON DIRECT MEDICAL CARE, MANAGEMENT - COORDINATION AND COUNSELING > 50% OF TOTAL TIME I saw and evaluated the patient. I reviewed the resident?s note and agree with findings and plan as documented in the resident?s note. still w/ intermittent fevers no evid of new infx cont sedation adjustments as per resident note cont TFs tolerating Trach well c/s CM for placement Documentation for date of: 05/27/25 Subjective Subjective Interval history: 05/27/2025: Patient had 2 fevers overnight, up to 104. Resolved with Ibuprofen. Patient received repeat LP yesterday, initial studies unremarkable. Fentanyl titrating down. Propofol remains high, will titrate as tolerated. Changed IV medications to GT when available. Patient tolerated tracheostomy well. 05/26/2025: Patient did not spike any fevers last night. Propofol was decrease to 45, while Fentanyl was maintained at 125. Patient is receiving bladder scans every 4 hours. Most recent in and out catheter revealed 600 cc of urine. Patient will go for tracheostomy today. Neruology will repeat lumbar puncture tonight. Changes to medications: clonazepam 2mg BID to TID, oxycodone 10mg to 15mg TID to try to wean off Fentanyl. Will continue with propranolol as it appears to be working as adjunct. 05/25/2025: Overnight, patient experienced a fever spike of 101.9?F, for which Ibuprofen was administered. Propofol was increased to 50, while Fentanyl was maintained at 125. Urine output over the past 12 hours was 1500cc, with no bowel movement noted. Propranolol 10mg TID was started. Bladder scan every 4 hours to check for urinary retention, if >400cc then straight in and out catheter. Lovonex and tube feeds will be held at midnight in preparation for tomorrow's tracheostomy. Sputum culture grew 2+ yeast, speciation pending. A repeat Cocci serology test was ordered. 05/24/2025: No overnight events. Patient had consistent urine output without the need for straight catheterization. No fever spikes overnight. Remains difficult to titrate down sedatives. Oxycodone 10 mg 3 times daily via G-tube was initiated with goal reducing fentanyl drip. MRI of brain only showed chronic infections, no acute intracranial pathology to explain underlying condition. Resume meropenem due to possibility of resistant Pseudomonas causing sinusitis, will require extended course of antibiotics for completion of treatment. Spoke with family regarding tracheostomy, risks and benefits were explained, family expressed understanding and was agreeable to procedure. General surgery consulted for tracheostomy. 05/23/2025: A continuous EEG was placed at approximately 7:30 PM on 05/22. Overnight, the patient experienced two fever spikes, with a peak temperature of 101.1?F. Patient remained on Propofol 40 mcg/kg/min and Fentanyl 100 mcg/hr. Two doses of Versed were administered for agitation. Patient continues to have increased secretions.Patient had premature ventricular contractions the night before. Repeat labs showed potassium at 5.2, magnesium at 1.9, and phosphorous at 5.5 . Calcium gluconate, breathing treatment, 4 gram of magesium and sevelamer was given. EKG showed sinus tachycardia with QTc 426. Patient also developed acute urine retention, with a bladder scan showing 700 cc. A Hawkins catheter was inserted due to leakage from the previous catheter and noted post- void retention. Patient had approximately 2000 cc of urine output overnight. Since patient's output is more than his input, tube feed water flushes were increased from 45 to 55 cc. Patient had one bowel movement this morning. Hawkins was removed this morning, and straight cath in and out will continue if the patient continues to experience urinary retention. EEG was reviewed by Dr. Lang, who confirmed that there were no signs of status epilepticus or seizures. Plan to do MRI of the brain next. Increased phenobarbital and clonazepam doses. Will work on weaning down propofol as patient's triglycerides are 385. Heparin was switched to Lovenox. 05/22/2025: Overnight, the patient developed fever spikes, with the highest reaching 101?F. Cooling measures were ineffective, and Ibuprofen was administered. In response to the patient's condition, fentanyl was increased from 100 mcg to 150 mcg, and propofol was increased from 35 mcg to 40 mcg. Urine output over the past 12 hours was 1100 cc. Given the recurrence of fevers and signs of hypersympathetic activity, the phenobarbital dosage was increased to 130 mg every 6 hours, up from every 8 hours. C. diff PCR testing is pending for loose stools. The patient has been receiving Versed every 5 minutes for seizure- like activity until it resolves. The ICU team held an extensive discussion with the patient?s parents regarding the next steps, which include transferring the patient to a facility capable of continuous EEG monitoring while weaning off sedation, as the patient continues to experience persistent seizures. Last day of meropenem to complete 10 day course. 05/21/2025: Overnight, patient developed two fever spikes, with a maximum temperature of 102.6?F. Fevers were managed with Tylenol and cooling measures. Hawkins catheter was removed and replaced with a QiVi external catheter, with urine output of 1,650 cc over the past 12 hours. Propofol was increased from 30 to 35 mcg/kg/min due to agitation and the patient breathing over the ventilator, while fentanyl maintained at 150 mcg/hr. No bowel movement was reported overnight. Neurology agreed with gradual weaning of sedation as tolerated. EEG is scheduled for Friday, 05/23, and daily EEG monitoring is not required. Ear culture returned with Brittney, likely from normal hamilton from the ear swab. Ears were examed with otoscope. Right ear unremarkable. Left ear canal with clear liquid, like from ofloxacin ear drops. Reduced phenobarbital to 130 mg every 8 hours and clonazepam to 1mg BID. Versed 2 mg IV is available as needed for agitation. Continue meropenem. Fungal culture of ear culture grew Brittney, likely representing normal hamilton from the ear swab. Patient exhibited green penile discharge following hawkins removal. A chlamydia and gonorrhea test was ordered. Right arm is warm and tense to touch from IV infiltration, IV was removed and placed in distal part of the right forearm. 05/20/2025: Overnight, patient had a fever spike of 101.2F. Patient remained on Propofol 40 and Fentanyl 150 for sedation. Precedex was not needed for agitation. Urine output was 2800 cc in the past hours with no gross hematuria. No bowel movement. Patient?s phenobarbital dose was adjusted to 260 mg every 8 hours. Keppra dose was increased to 1000 mg twice daily as per the neurologist?s recommendation. An EEG revealed electrographic seizure activity. A repeat sputum culture was obtained due to contamination of the previous sample. Additionally, a gradual wean of propofol and fentanyl was initiated as tolerated. 05/19/2025: Overnight, patient had a fever spike of 102.2?F. Due to agitation, the Versed infusion was increased from 4 mg/gtt to 8mg/gtt. Patient was also receiving Propofol 30 and Fentanyl 150. Patient had one bowel movement and produced 1L of urine over the past 12 hours, with no evidence of gross hematuria. Versed 4 mg gtt was titrated up to 8mg gtt for patient's agitation. Patient was on Propofol 30 and Fentanyl 150. Patient had one bowel movement. Urine output was 1L in the past 12 hours with no gross hematuria. This morning, clonazepam 2 mg PO TID was initiated, Propofol infusion was increased to 50 mcg/kg/min, and fentanyl was maintained at 50 mcg/hr. The versed infusion was discontinued, and Meropenem was restarted to treat Pseudomonas pneumonia, since the patient continued to spike fevers despite discontinuation of the medication. Sputum culture and EEG will be repeated. Heparin was restarted for DVT PPX. 05/18/2025: Overnight, patient remained on Propofol 30 and Fentanyl 300, with Versed 2mg dose x1. Magnesium was given for bronchodilation. Ibuprofen given for fever. Plan was to wean off sedation and extubate the patient today, but due to significant oral secretions and concerns about potential aspiration and the patient's inability to protect the airway, the decision was made to keep the patient intubated for now. A spontaneous breathing trial was attempted, and the patient?s lungs are functioning well. However, given the ongoing agitation, sedation could not be reduced. Phenobarbital dose was increased from 130mg to 260mg every 6 hours, and a 4mg Versed drip was started. Olanzapine was discontinued, and both doxycycline and meropenem were stopped due to concerns of a potential drug reaction, as fever spikes worsened after the initiation of meropenem on 05/12. Heparin was restarted yesterday for a DVT in the left brachial vein but was discontinued this morning due to ongoing hematuria without clots. A follow-up Doppler will be performed in 2-3 days to assess whether the DVT has resolved. Patient?s urine output was 2240cc over the past 12 hours. Maintenance fluids were started at 100ml/hr to manage the increased urine output. ICU team spoke with the patient's mother today, providing updates on the changes in the medication regimen and the patient's current status. Informed her that this is Day 9 of intubation, and there are four more days to attempt extubation before considering a tracheostomy. TSH, EBV, and CMV panels were ordered for further evaluation. 05/17/2025: Overnight,patient was placed on droplet precautions due to positive rhinovirus and human metapneumovirus. Patient received a 4 mg dose of Versed for agitation. Heparin drip was initiated for an upper extremity DVT but was paused at 12:15 AM due to hematuria without clots. Urine output was approximately 170 cc/hr, and the patient had two bowel movements since yesterday. Today, the patient underwent bronchoscopy and tolerated the procedure well, with stable gas exchange observed. To facilitate weaning off fentanyl and propofol, the patient was started on phenobarbital 13 mg and oxycodone 10 mg scheduled TID. Will consider adding Precedex to further support the weaning process and work towards extubation tomorrow. Heparin drip for the DVT has been restarted as the hematuria is improving. Additionally, 1L of IV LR was administered to address hyperkalemia and hyperphosphatemia on AM labs. Plan is to remove the Hawkins catheter tomorrow, 05/18. 05/16/2025: Overnight, patient experienced intermittent spasmodic jerking episodes, lasting about 15-20 minutes at a time. During these episodes, the patient becomes tachycardic and febrile. Baclofen 10mg was administered, followed by a single dose of midazolam 2mg IV for agitation. Patient remains on fentanyl 100 mcg/hr and propofol 50 mcg/kg/min for sedation. Patient spiked a fever of 102.6?F, for which IV tylenol was given. A subsequent temperature of 102.4?F was treated with ibuprofen. The Hawkins catheter was replaced overnight. Urine output over the past 12 hours was approximately 850 mL. Patient has not had a bowel movement since 05/13, will add miralax. Due to persistent fevers, doxycycline 100 mg IV BID was initiated for gram-positive cocci coverage. Blood cultures will be repeated, and a right upper quadrant ultrasound has been ordered to evaluate for potential hepatobiliary source of infection. Liver enzymes are improved from yesterday. Planned Interventions: Initiate phenobarbital 130 mg IV every 6 hours and begin weaning off propofol. Increased olanzapine from 5 mg GT QHS to 5 mg TID. Perform bilateral upper extremity ultrasound to assess for DVT. Repeat UA, CXR, CT head and abd/pelvis. Check lipase levels. 05/15/2025: Overnight, the patient developed a fever of 101.8?F. PO acetaminophen was switched to IV formulation by the night team. Temperature improved to 99.5?F by morning. Urine output over the past 12 hours was approximately 620 cc. Liver enzymes continue to trend upward, will hold acetaminophen for now. Patient was weaned off midazolam infusion today. Plan is to begin tapering propofol next. Antipsychotic regimen was adjusted from quetiapine to olanzapine to minimize risk of QTc prolongation. Repeat chest X- ray showed improvement in bilateral pneumonia. Bronchoscopy was performed yesterday (05/14). Repeat procedure is being considered for 05/16. Increase in WBCs and fever likely from bronchoscopy. 05/14/2025: No acute events overnight. Stable on versed/ fentanyl and propofol. No vasopressor requirements. Patient underwent bronchoscopy, well tolerated. Gas exchange stable. PPeak remains in mid20s. Patient on minimal FiO2 and PEEP now. Good ventilator synchrony. Continues to have heavy drooling and output form upper airway. Minimal from ETT now. 05/13/2025: Patient increased FiO2 overnight to 100%. Difficulty managing secretions. Bleeding from nose and plugging. Agitated with maximal dose of precedex and benadryl pushes. Patient with low grade temp to 100.4F. Mild secretions from ETT, pink/ frothy. 05/12/2025: Patient weaned down on sedation. Tmax 102 degrees at 1600 hrs. 05/11. Patient developed mild hepatitis, likely response to medications, will monitor. Patient successfully weaned off of propofol and fentanyl, Precedex initiated. Patient extubated, placed on high flow. Continues to have high secretions, treated with chest PT, oral suctioning as needed, ipratropium breathing treatments scheduled. Patient notably agitated, treating with Benadryl as needed and Precedex drip. Will continue to try and decrease sedation while maintaining patent airway. Sputum culture grew thurman resistant Pseudomonas, meropenem initiated. Will continue Levaquin for now pending cultures. Ear cultures taken. Patient maintaining good urine output, will replete volume if patient exceeds greater than 2 L output. 05/11/2025: Overnight, the patient became increasingly agitated and was observed biting on the endotracheal tube. In response, propofol was increased from 40 mcg/kg/min to 45 mcg/kg/min, and fentanyl was increased from 200 mcg/hr to 250 mcg/hr. The plan is to attempt weaning the patient off sedation today, and work towards extubation. A lumbar puncture was performed, which showed 3 WBCs. Infection from meningitis is less likely, but culture results are pending for confirmation. Today, the patient has been experiencing a low-grade fever, with the highest recorded temperature being 100.4?F. After the Hawkins catheter was placed, the patient had 1700 cc of urine output over the past 12 hours. Followed up with Dr. Jacky Cuadra (ENT in [place]). Dr. Cuadra stated that there is nothing additional he could identify on the CT imaging that the radiologist has not already seen. And that if there was something it would likely be surgical and he does not perform surgeries. He recommended covering for Pseudomonas with clindamycin and Unasyn. The plan is to start levofloxacin for Pseudomonas coverage as well. Additionally, Dr. Cuadra suggested culturing the ear. 05/10/2025: Patient remained sedated with propofol and fentanyl throughout the night, maintaining adequate sedation levels. Around 2 AM, the propofol dose was reduced due to MAP in the 60s. 1L of LR was administered on top of the ongoing IV maintenance fluids at 100cc/hr. Following this, the MAP remained stable above 65. At 6:50 PM on 05/09, an ABG revealed a pH of 7.28, pCO2 of 55, and pO2 of 70, indicative of respiratory acidosis. Patient was given 5 grams of magnesium and 15 mg of albuterol over the course of an hour to promote bronchodilation. Magnesium also needed to be repleted. A repeat ABG showed normalization of the respiratory parameters. Patient's Hawkins catheter was removed and replaced with a QiVi catheter overnight per the patient's father?s request. However, the patient developed urinary retention. A bladder scan performed at 6 AM showed 295cc of retained urine, and a subsequent scan in the afternoon revealed 439cc. Primary team consulted ICU team. On 05/09, two rapid responses were initiated due to the patient?s escalating agitation and anxiety. Patient appeared to be in significant pain from his paraphimosis. The primary team consulted the ICU for further management, as the patient had already received diazepam, haldol, versed, and dilaudid earlier that morning, with inadequate relief. Additionally, there was concern over a decline in his pO2 levels. The initial ABG at 11:56 showed: pH 7.40, pCO2 40, pO2 131, HCO3 25. A repeat ABG at 13:40 revealed: pH 7.27, pCO2 43, pO2 53, HCO3 20. Upon evaluation by the ICU team, the patient was noted to be extremely agitated and wearing an oxygen mask, with audible gurgling sounds coming from the upper airway, raising concern for potential airway compromise. Given the risk of inadequate airway protection, the decision was made to transfer the patient to the ICU for intubation and further management. In the ICU, the patient was intubated. Urology, Dr. Vargas, was consulted earlier in the day. He was able to successfully perform a reduction of the paraphimosis. Telemetry Course: Patient was admitted to telemetry for further workup and management of sepsis of unknown source, with concern for meningitis. Empiric broad-spectrum antibiotic and antiviral therapy were started, consisting of ceftriaxone 2g IV twice daily, vancomycin (pharmacy to dose), ampicillin, and acyclovir. Neurology was consulted. CT of the orbit, sella, and inner ear was ordered given the patient?s history of acute mastoiditis, which showed severe bilateral chronic mastoiditis, bilateral otitis externa, bilateral otitis media, and bilateral cholesteatomas in the attics. CT head was also performed and was negative for acute hemorrhage, mass effect, or midline shift. Findings included prominent sphenoid, ethmoid, and maxillary antral sinusitis, bilateral chronic mastoiditis, bilateral otitis media, and opacification in the bilateral attics. For the patient?s seizures, his home medications of valproic acid and levetiracetam were restarted. Orders for midazolam and Haldol were placed as needed for breakthrough seizures and agitation. An ice pack was ordered for his paraphimosis. Infectious disease was also consulted. History of Present Illness: 24-year-old male with a past medical history significant for cerebral palsy, asthma, seizure disorder, chronic mastoiditis (previously treated with tympanostomy tube placement for recurrent otitis media, now removed), recurrent pneumonia, and chronic PEG tube dependence, presented to the ED on 05/08/2025 with a fever lasting over 24 hours. The patient also had a witnessed seizure episode lasting 5-10 seconds, characterized by tonic-clonic activity confined to the left side of the body. ED Course: -Initial vitals were: BP 122/84, HR 176, RR 26, T 105F, O2 sat 96% on room air. -Labs significant for: CBC showed a WBC of 16.3. CMP showed Na 148, K 5.2, Cl 107, bicarbonate 18.7, anion gap 22, creatinine 1.3 (baseline 0.7), lactic acid 3.2, alkaline phosphatase 120, LDH 352, total CK 1048, procalcitonin: 0.14. Urinalysis negative. Influenza A/B testing was negative. -Imaging included: EKG showed supraventricular tachycardia of HR [address] and T-wave abnormality. CXR showed no aspiration pneumonia but was noted to be of poor inspiratory effort. CT CAP w/o contrast seemed to show no gross infiltrates or other notable findings but was noted to be severely degraded by patient motion. -In the ED, patient was given acetaminophen 975 mg, ceftriaxone 1 gram IV, midazolam 2 mg IV x1, albuterol 2.5 mg, Zosyn 3.375 gram, 2 L NS fluid infusion, and 1 L LR fluid infusion. In the ED, the patient was agitated and pulled out his IV. Attempts at peripheral access were unsuccessful, and a right femoral central line was placed. Exam Vital Signs Temp Pulse Resp BP Pulse Ox O2 Del Method O2 Flow Rate 98.9 F 94 26 H 127/72 99 Mechanical Ventilation 35 05/27/25 16:00 05/27/25 16:00 05/26/25 18:24 05/27/25 16:00 05/27/25 16:00 05/27/25 16:00 05/16/25 12:00 FiO2 30 05/27/25 16:00 Narrative Exam Physical Exam General: sedated and trached, nonverbal at baseline, not in acute distress. RASS score -4 (no response to voice, but movement to noxious stimuli). Head: Normocephalic, atraumatic. Eyes: PERRL. Anicteric. Bilateral lateral eye scleral hemorrhage. Mouth/Throat: Poor dentition. Oral mucosa moist with excessive secretions. Cardiovascular: no murmur. regular rate and rhythm. Respiratory: Rhonchi to auscultation in bilateral lung thompson, improved Gastrointestinal: PEG tube in place, site is clean, dry and intact. Soft, no guarding or rebound tenderness. Extremities: Contracted and swollen hands. No LE edema, cyanosis, mottling, clubbing. 2+ radial pulse bilaterally, 2+ posterior tibial pulse bilaterally. Objective Labs 05/27/25 05:06 05/27/25 05:06 Labs: Laboratory Results - last 24 hr 05/25/25 05/26/25 05/27/25 11:00 19:30 05:06 WBC 9.9 RBC 3.79 L Hgb 10.6 L D Hct 33.3 L MCV 88 MCH 28.0 MCHC 31.8 RDW Std Deviation 49.0 H Plt Count 612 H D Neut % (Auto) 76 Lymph % (Auto) 11 Alcorn % (Auto) 11 Eos % (Auto) 1 Baso % (Auto) 1 Neut # (Auto) 7.5 Lymph # (Auto) 1.1 Alcorn # (Auto) 1.1 H Eos # (Auto) 0.1 Baso # (Auto) 0.1 Immature Gran # (Auto) 0.11 H Absolute Nucleated RBC 0.00 Immature Gran % 1 H Nucleated RBC % 0 Sodium 137 Potassium 4.4 D Chloride 101 Carbon Dioxide 20.9 Anion Gap 15 BUN 14 Creatinine 0.6 Estim Creat Clear Calc 151.4 eGFR > 60 BUN/Creatinine Ratio 23 H Glucose 82 Calculated Osmolality 273 L Calcium 10.4 Corrected Calcium 10.4 H Phosphorus 5.8 H Magnesium 1.7 Total Bilirubin 1.2 D AST 56 H ALT 57 H Alkaline Phosphatase 193 H D Total Protein 7.7 Albumin 4.1 D Globulin 3.6 H Albumin/Globulin Ratio 1.1 L CSF Appearance Clear CSF Color Colorless CSF WBC 1 CSF RBC 2 CSF Cell Count Tube # Tube # 4 CSF Mononuclear WBCs 100.0 CSF Polynuclear WBCs 0 CSF Glucose 47 D CSF Total Protein 36 H Coccidioides IgG Ab Negative Misc Test Result Cancelled ABG Interpretation ABG results: 05/09/25 05/09/25 05/09/25 11:56 13:40 18:50 ABG pH 7.40 7.27 L D 7.28 L ABG pCO2 40 43 55 H D ABG pO2 131 H 53 L* D 70 L ABG HCO3 25 20 26 ABG O2 Saturation 99 H 81 L 92 ABG Base Excess 0 -7 L -2 05/10/25 05/11/25 05/12/25 00:14 05:06 01:18 ABG pH 7.35 7.33 L 7.39 ABG pCO2 42 D 54 H D 48 ABG pO2 103 D 93 94 ABG HCO3 23 28 H 29 H ABG O2 Saturation 99 H 98 98 ABG Base Excess -3 2 3 05/12/25 05/12/25 05/13/25 03:58 11:50 05:10 ABG pH 7.46 H 7.39 7.19 L* D ABG pCO2 41 48 60 H D ABG pO2 105 58 L* D 114 H D ABG HCO3 29 H 29 H 23 ABG O2 Saturation 99 H 90 L 98 ABG Base Excess 5 H 4 H -6 L 05/17/25 05/18/25 05/19/25 01:30 04:09 04:43 ABG pH 7.38 7.43 7.47 H ABG pCO2 46 44 43 ABG pO2 90 83 80 L ABG HCO3 27 H 29 H 31 H ABG O2 Saturation 98 97 97 ABG Base Excess 2 5 H 7 H 05/21/25 05/21/25 04:18 06:33 ABG pH 7.37 D 7.46 H ABG pCO2 50 H 38 D ABG pO2 40 L* D 121 H D ABG HCO3 29 H 27 H ABG O2 Saturation 66 L 100 H ABG Base Excess 3 3 Quality Measures Quality Measures VTE prophylaxis (SCDs) and sepsis Current suspected stage: sepsis Possible source: pulmonary Blood cultures ordered: yes Antibiotic ordered: Yes Assessment & Plan Assessment Current Active Medications: Generic Name Dose Route Start Last Admin Trade Name Freq PRN Reason Stop Dose Admin Albuterol/Ipratropium 3 ml 05/09/25 18:19 05/20/25 01:36 Albuterol/Ipratropium (Duoneb) Rt Racquel 3 Ml Nebu INH 06/08/25 18:18 3 ml Q2HR PRN Administration SHORTNESS OF BREATH OR WHEEZE Calcium Carbonate 600 mg 05/20/25 18:20 05/27/25 08:17 Calcium Carbonate 600 Mg Tablet GT 06/19/25 18:19 600 mg QDAY KYA Administration Clonazepam 2 mg 05/26/25 14:00 05/27/25 14:32 Clonazepam 0.5 Mg Tablet PO 05/31/25 13:59 2 mg TID KYA Administration Enoxaparin Sodium 40 mg 05/23/25 11:15 05/25/25 09:25 Enoxaparin Sod Inj 40 Mg/0.4 Ml Syringe SC 06/06/25 11:14 40 mg On Hold: 05/26/25 02:00 QDAY KYA Administration Guaifenesin 200 mg 05/24/25 20:31 05/24/25 20:54 Guaifenesin Syrup 200 Mg/10 Ml Udc GT 06/23/25 20:30 200 mg QID PRN Administration ET secretions Protocol Propofol 1,000 mg in 100 mls @ 2.103 mls/hr 05/13/25 04:16 05/27/25 16:00 Diprivan Ivpb IV 06/12/25 04:15 40 mcg/kg/min .Q24H PRN 16.824 mls/hr PER PROTOCOL Titration Protocol 5 MCG/KG/MIN Fentanyl Citrate 2,500 mcg in 250 mls @ 2.5 mls/hr 05/23/25 11:38 05/27/25 17:00 Sublimaze Inj 2,500 Mcg/250 Ml Bag IV 05/28/25 08:44 25 mcg/hr .Q24H PRN 2.5 mls/hr PER PROTOCOL Titration Protocol 25 MCG/HR Levetiracetam 1,000 mg 05/27/25 21:00 Levetiracetam Liqd 500 Mg/5 Ml Udc GT 06/26/25 20:59 BID KYA Ofloxacin 5 drop 10/25/25 14:45 05/27/25 08:31 Ofloxacin Op Racquel 0.3% 5 Ml Btl BOTH EARS 05/31/25 14:44 5 drops BID KYA Administration Ondansetron HCl 4 mg 05/27/25 14:37 Ondansetron Odt 4 Mg Tabrap GT 06/26/25 14:36 Q6HR PRN NAUSEA OR VOMITING Protocol Oxycodone HCl 15 mg 05/26/25 14:00 05/27/25 14:32 Oxycodone Hcl 5 Mg Ir Tab PO 05/31/25 13:59 15 mg TID KYA Administration Pantoprazole Sodium 40 mg 05/27/25 14:45 05/27/25 15:36 Pantoprazole 40 Mg Tablet PO 06/26/25 14:44 Not Given QDAY KYA Phenobarbital 259.2 mg 05/23/25 11:30 05/27/25 17:09 Phenobarbital 32.4 Mg Tablet GT 06/06/25 11:29 259.2 mg Q6HR KYA Administration Polyethylene Glycol 17 gm 05/16/25 09:15 05/27/25 08:17 Polyethylene Glycol 17 Gm Packet PO 06/15/25 09:14 17 gm QDAY KYA Administration Propranolol HCl 10 mg 05/25/25 14:00 05/27/25 14:32 Propranolol 10 Mg Tablet PO 06/24/25 13:59 10 mg TID KYA Administration Sevelamer Carbonate 0.8 gm 05/27/25 08:00 05/27/25 17:10 Sevelamer Carbonate 0.8 Gm Packet (Non-Formulary) GT 06/26/25 07:59 0.8 gm TIDWM KYA Administration Sodium Chloride 3 ml 05/17/25 11:43 Sodium Chloride Rt Racquel 0.9% 3 Ml Nebu INH 06/16/25 11:42 PRN PRN SOLN Valproic Acid 250 mg 05/27/25 18:00 05/27/25 17:09 Valproic Acid Syrup 250 Mg/5 Ml Udc GT 06/26/25 17:59 250 mg Q8HR KYA Administration Plan 24-year-old male with cerebral palsy, asthma, seizure disorder, chronic mastoiditis, recurrent pneumonia, and chronic PEG tube dependence presented with fever and seizure, was admitted for sepsis workup, and later transferred to the ICU for intubation due to concerns about airway protection. Neurology #Agitated delerium Patient was extremely agitated before ICU admission, likely due to pain from paraphimosis. Patient initially sedated with propofol and fentanyl, titrated to Precedex with Benadryl before extubation. Patient failed extubation and was intubated on 05/12. Propofol and fentanyl was restarted. Diagnostic Test: - 05/26 AM: RASS was -4, no response to voice but movement to physical stimuli. - EEG did not show seizure activity per neurology. - MRI brain 05/23: showed chronic infections, no acute pathology. Treatment Review (completed) - Versad 5mg/h was tapered off on 05/15. - Midazolam 4mg --> 8mg gtt 05/18-05/19. Treatment Plan: - Propranolol 10 mg TID. - Phenobarbital 260 mg Q6H. - Clonazepam 2 mg TID. - Oxycodone 15 mg TID. - Fentanyl 25 and Propofol 4, will try to wean off as tolerated. - If continues to be on Propofol, recheck TG on 05/29 (every 72 hours). - Versad 4mg PRN if patient starts to get agitated. - Neurology consulted, appreciate recommendations. Plan for repeat LP today (05/26). #History of seizures #Cerebral palsy Diagnosis: - Temperature of 105F on admission. - EEG 05/11 unremarkable - Repeat EEG 05/20: electrographic seizure activity. - Persistent fever spikes. - Continuous EEG 05/22-05/23: no seizure activity or status epilepticus. Treatment Plan: - Levetiracetam 1000 mg BID. - Valproic acid 187.5 mg Q6H. - Adjust seizure medications if breakthrough seizures persist. - Seizure precautions. - Aspiration precautions. Cardiovascular #Sinus tachycardia (resolved) DDx: fevers vs hypersympathetic activity. Diagnostic Test: - Fever spikes associated with tachycardia, tachypnea Treatment Plan: - No specific treatment required at this time. Infectious disease workup remains unrevealing. Unsure of the cause of fever spikes which are associated with tachycardia and tachypnea. - Continue close cardiac monitoring. - Monitor electrolytes and replete as needed. - Maintain Mg > 2 and K > 4 to reduce arrhythmia risk. Respiratory #Failed extubation 05/12 #Acute hypoxic respiratory failure Diagnostic Test: - CXR 05/11: Mild bilateral perihilar pneumonia. To assess for ventilator associated pneumonia. Not much change from 05/09 CXR. - Resistant Pseudomonas from ETT secretions previously (05/09). - CXR 05/19: Significant bilateral pneumonia. Treatment Review (completed): - Patient extubated to [facility] 05/12, chest film with centro-bronchovascular congestion and multifocal pneumonia. - Reintubated overnight 05/13- VC/AC PPeak 20 PEEP 5 FiO2 40%. - Patient underwent bronchoscopy on 05/14 and 05/17 for secretions, well tolerated. - Meropenem (05/12-05/17, 05/19-05/22, for a total of ten days). - Meropenem reinitiated for extended course for chronic sinusitis Treatment Plan: - 05/20 sputum culture grew 2+ yeast, speciation pending. - Repeat Cocci serology test was ordered. - Bronchoscopy fungal culture pending. - Chest physiotherapy PRN. - Given the patient's current condition, including severe tachycardia and excessive secretions, he is not considered a suitable candidate for extubation at this time. Therefore, mechanical ventilation will be continued to support respiratory status. - Continue MV settings: PEEP 6.0, Ppeak 25.1, Pplateau 10.9. VT 400, RR 18, FiO2 30. - Conversations had with family regarding patient's respiratory status, agreed to tracheostomy - Tracheostomy completed 05/26, well tolerated. #Bronchospasm #History of asthma Diagnostic Test: - Although the patient has a history of asthma, the bronchospasm is most likely from the irritant effect of blood in the airway. A small amount of blood, which was likely from dryness of the nasal mucosa, was suctioned out during intubation. Treatment Plan: - Magnesium for bronchodilator effect as needed. - Albuterol and Ipratropium as needed. GI, , F/E/N #Chronic PEG tube dependence Treatment Plan: - Jevity 1.5 at 40 ml/hr x 24 hrs via PEG tube by pump (goal). If no IV fluids, water flushes of 55 ml/hr. - ProStat 30ml BID via PEG tube. - Appreciate commercial insulator recommendations. - Triglyceride level 05/14 - 290; 05/17 - 312; 05/20 - 221; 05/26 - 275. - Repeat TG levels every 72 hours when on Propofol, which should be discontinued if triglyceride levels reach or exceed 400 mg/dL to prevent hypertriglyceridemia-associated complications. - Next check 05/29 is patient remains on Propofol. #Hepatitis (downtrending) Likely due to meropenem or tylenol that could potentially cause hepatotoxicity. Diagnostic Test: - Gallbladder ultrasound 05/16: Normal gallbladder, no gallstones. Fatty infiltration throughout the liver. - Lipase 05/16: 41 wnl. Treatment Plan: - Continue daily LFTs. - Avoid acetaminophen unless fever exceeds 101.0?F or Ibuprofen as alternative. - Will reassess if transaminases continue to rise or clinical status changes. #Acute urinary retention (resolved) Treatment Plan - Monitor urine output, replace fluid if needed. - Hawkins removed 05/23 - Every 4 hour bladder scan and straight cath as needed. #Hypoalbuminemia (resolved) Likely due to acute hepatitis Diagnostic Test: - UA had urine proteins 1+. - Albumin 4.9 -->3.3 -->2.8 --> 3.2 --> 3.4 --> 2.8 --> 2.5. Treatment Plan: - Monitor LFTs, INR, and bilirubin. - Maintain on PEG tube feeds per commercial insulator recommendations. #Paraphimosis (resolved) #Balanitis (resolved) Diagnostic Test: - Edema and tenderness of the glans penis. - Swelling of the distal retracted foreskin. - Constricting band of tissue proximal to the head of the penis at the coronal sulcus. - Hawkins was removed on 05/09 and transitioned to Oivi external urinary catheter. Discussed with family about the need to reinsert hawkins due to the patient's acute urinary retention. Family were in agreement with this plan. Hawkins was reinserted on 05/10 due to urinary retention. Hawkins changed and replaced on 05/16. - S/p reduction of the paraphimosis by Dr. Vargas on 05/09. Treatment Plan: - Control patient's pain with sedation. - Monitor urine output. Renal #Hyperkalemia (resolved) #Hyperphosphatemia (downtrending) DDx: acute kidney injury vs hemolysis vs rhabdomyolysis. Diagnostic Test: - Potassium 5.2. - Phosphorus 6.7 - CK 363. - LDH 350. - Uric acid 3.5. - Hemoglobin 8.8. - Cr 0.6. Treatment Plan: - Monitor BMP and phosphorus. - Monitor potassium levels to avoid arrhythmias. - Sevelamer 800 milligram GT 3 times daily, will adjust if needed. #Acute kidney injury (resolved) DDx: dehydration or vasodilation from sepsis. Diagnositc Test: - Creatinine 1.3 (baseline: 0.7) Treatment Plan: - Continue with free water flushes. - Daily renal panel to trend BUN, Cr, and electrolytes. - Avoid nephrotoxins. - Renally dose meds as appropriate. - Strict I&Os, monitor urine output closely. - Monitor for signs of volume overload or uremic symptoms. #Anion Gap Metabolic Acidosis (resolved) #Lactic acidosis (resolved) DDx: seizures vs sepsis vs acute kidney injury vs hypoperfusion. Likely from seizures as patient has no signs of systemic hypoperfusion such as skin mottling, decreased cap refills. Diagnostic Test: - Admission anion gap 22, lactic acid 16.0, bicarbonate 18.7. Treatment Plan: - Recheck LA as needed. #Rhabdomyolysis (resolved) DDx: seizures vs hyperthermia vs infectious myositis. Diagnostic Test: - CK 1048 --> 3743 --> 1654 --> 338 --> 363. - Witnessed seizure episode lasting 5-10 seconds, characterized by tonic-clonic activity prior to admission. Treatment Plan: - Continue free water flushes at 35 cc/hr. - Monitor urine output. - Correct electrolyte abnormalities. - Control seizures with valproic acid and levetiracetam. - Monitor renal panel. Heme #Acute nonocclusive thrombus in the left brachial vein Diagnostic Test: - Venous doppler study of upper extremities 05/16: Normal right upper extremity deep venous system. Positive for nonocclusive thrombus in the left brachial vein. - Per chart review and patient's parents, patient does not have history of clots. Treatment Review (completed): - Lovenox 30 mg (05-11 - 05/15). - Lovenox 40 mg (05/16). - Heparin loading dose and ggt. Lovenox to heparin due to heparin?s shorter half-life, which allows for more rapid cessation in the event of bleeding, a shorter half life and can be stopped if bleeding occurs. - Stopped heparin ggt due to hematuria on 05/18. Treatment Plan: - Lovenox 40 mg SC QD. Resume Lovenox after tracheostomy. - Primary upper extremity deep vein thrombosis, anticoagulation should be continued for a minimum of three months following the initial thrombotic event. #Normocytic Anemia DDx: Anemia of Inflammation vs dilutional anemia vs drug-induced anemia. Likely dilutional anemia since patient had normal hemoglobin on admission and from IV fluids per sepsis protocol. No signs of bleeding. Treatment Plan: - Monitor H&H. - Type and screen. - Transfusing for Hgb <7 or symptomatic. #Thrombocytosis DDx: infection vs reactive Diagnostic Test: - Plt 711. Treatment Plan: - Monitor CMP. #Leukocytosis (resolved) DDx: likely due to bronchoscopy vs infection of unknown source vs drug induced Diagnostic Test: - Continue to have fever spikes as high as 102.8?F. - Increase WBCs 8.9 --> 11.1 after bronchoscopy on 05/14. - Increase WBCs 14.7 --> 16.1 after bronchoscopy on 05/17. Treatment Plan: - Treat underlying cause. #Thrombocytopenia (resolved) DDx: Dilutional versus consumption versus increased destruction due to sepsis. Initial decrease is likely due to dilutional in setting of IV fluids, however his WBC and hemoglobin have leveled off platelets have down trended. Diagnostic test: - Platelets: 209 --> 65-->141. Treatment plan: - Monitor daily labs - Avoid excessive oral tracheal suctioning in setting of previous bleed and thrombocytopenia. Endo #no active problems ID #Sepsis #Bilateral chronic mastoiditis #Sinusitis #Bilateral otitis media #Bilateral otitis externa DDx: meningitis vs acute on chronic mastoiditis vs acute febrile illness. Diagnostic Test: - History of chronic mastoiditis. - Met SIRS criteria on admission: T 105F, HR 176, RR 26, PaCO2 26, WBC 16.3. - 05/08 CT Head: prominent sphenoid ethmoid maxillary antral sinusitis, bilateral chronic mastoiditis, bilateral otitis media. - 05/08 CT Orbit Sella Inner: severe bilateral chronic mastoiditis, bilateral otitis externa and otitis media, bilateral cholesteatomas in the attics. - 05/09 Sputum culture: 1+ thurman resistance Pseudomonas. - 05/10 Lumbar puncture: clear, WBC 3, glucose 70, total protein 25. CSF testing negative. - 05/10 Respiratory viral panel: rhinovirus/enterovirus and human metapneumovirus detected. - 05/12 Bilateral ear culture: E coli ESBL. - UA 05/08 and 05/16 negative. - Blood culture 05/08, 05/11, and 05/16 negative. - 05/16 CXR: worsening diffuse severe left lung pneumonia. Treatment Review (completed) - Rocephin 2 gm IV q12HR [05/08-05/11]. - Vancomycin dosed by pharmacy [05/08-05/11] since MRSA screen is negative. - Acyclovir 700 mg IV [05/08-05/11] since LP negative. - Fluids: 30mL/kg -- 2 L NS fluid infusion and 1 L LR fluid infusion was given in the ED. - Femoral central line removed 05/11, replaced with peripheral access. Treatment Plan: - Topical oxofloxacin. - Patient has limited options in terms of antibiotics in the future as meropenem is broad-spectrum. May have to consider ceftazidime or ceftaroline if he continues to develop recurrent infections. - Sputum culture grew 2+ yeast, speciation pending. Yeast is a common colonizer in intubated patients. - A repeat Cocci serology test was ordered, negative Integumentary #Maculopapular rash to the buttocks DDx: contact dermatitis vs allergic dermatitis Treatment Plan - Patient no longer has diaper on. Anticipate rash to improve. Health Maintenance DVT prophylaxis: SCDs, hold Levonox 40mg QD for surgery. GI prophylaxis: Protonix IV Diet: Jevity Hawkins: none. Straight cath in/out q4h if urine retention more than 400 ml Lines: Peripherals, PEG tube. Drips: Propofol, fentanyl. CODE STATUS: FULL CODE Plan of care discussed with attending Dr. Baeza. Kamlesh Baer MD PGY-2
[2025-05-27] MEDS: levETIRAcetam LIQD 500 MG/5 ML UDC 1000 MG GT (20:58)
--- NOTE | 2025-05-27 23:58 | PD.NEUROPROG ---
Documentation for date of: 05/27/25 Subjective Subjective Interval history: Patient was seen in ICU today at the bedside. He underwent tracheostomy recently and Continued to remain on mechanical ventilatory support on sedation. No clinical seizures reported overnight. Exam - Neurology Vital Signs Temp Pulse Resp BP Pulse Ox O2 Del Method O2 Flow Rate 97.1 F 95 26 H 129/85 H 99 Trach Collar 35 05/27/25 20:00 05/27/25 23:00 05/26/25 18:24 05/27/25 23:00 05/27/25 23:00 05/27/25 20:00 05/16/25 12:00 FiO2 30 05/27/25 22:08 Narrative Exam GENERAL APPEARANCE: Developmentally delayed male , trached and on mechanical ventilatory support HEENT: Normocephalic, atraumatic, Pupils: Equal reacting to light NECK: Supple, no JVD or bruits. CARDIOVASULAR: Heart: S1, S2 heard, regular without S3-S4 or murmur no rubs or gallops. LUNGS/CHEST: Breath sounds heard equally bilaterally, bilateral Rales and rhonchi heard. ABDOMEN: Soft, nontender, with normal bowel sounds. No pulsatile masses. No rebound, rigidity, or guarding. Normal inspection and palpation. EXTREMITIES: Normal inspection and palpation. No edema, clubbing or cyanosis. SKIN: Warm and dry without rashes. Normal inspection. NEURO: Limited from sedation, brainstem function: partly Intact, moves all extremities. PSYCHIATRIC: Limited Objective Labs 05/28/25 04:22 05/28/25 04:22 Labs: Laboratory Results - last 24 hr 05/25/25 05/26/25 05/27/25 11:00 19:30 05:06 WBC 9.9 RBC 3.79 L Hgb 10.6 L D Hct 33.3 L MCV 88 MCH 28.0 MCHC 31.8 RDW Std Deviation 49.0 H Plt Count 612 H D Neut % (Auto) 76 Lymph % (Auto) 11 [place] % (Auto) 11 Eos % (Auto) 1 Baso % (Auto) 1 Neut # (Auto) 7.5 Lymph # (Auto) 1.1 [place] # (Auto) 1.1 H Eos # (Auto) 0.1 Baso # (Auto) 0.1 Immature Gran # (Auto) 0.11 H Absolute Nucleated RBC 0.00 Immature Gran % 1 H Nucleated RBC % 0 Sodium 137 Potassium 4.4 D Chloride 101 Carbon Dioxide 20.9 Anion Gap 15 BUN 14 Creatinine 0.6 Estim Creat Clear Calc 151.4 eGFR > 60 BUN/Creatinine Ratio 23 H Glucose 82 Calculated Osmolality 273 L Calcium 10.4 Corrected Calcium 10.4 H Phosphorus 5.8 H Magnesium 1.7 Total Bilirubin 1.2 D AST 56 H ALT 57 H Alkaline Phosphatase 193 H D Total Protein 7.7 Albumin 4.1 D Globulin 3.6 H Albumin/Globulin Ratio 1.1 L Coccidioides IgG Ab Negative Misc Test Result Cancelled ABG Interpretation ABG results: 05/09/25 05/09/25 05/09/25 11:56 13:40 18:50 ABG pH 7.40 7.27 L D 7.28 L ABG pCO2 40 43 55 H D ABG pO2 131 H 53 L* D 70 L ABG HCO3 25 20 26 ABG O2 Saturation 99 H 81 L 92 ABG Base Excess 0 -7 L -2 05/10/25 05/11/25 05/12/25 00:14 05:06 01:18 ABG pH 7.35 7.33 L 7.39 ABG pCO2 42 D 54 H D 48 ABG pO2 103 D 93 94 ABG HCO3 23 28 H 29 H ABG O2 Saturation 99 H 98 98 ABG Base Excess -3 2 3 05/12/25 05/12/25 05/13/25 03:58 11:50 05:10 ABG pH 7.46 H 7.39 7.19 L* D ABG pCO2 41 48 60 H D ABG pO2 105 58 L* D 114 H D ABG HCO3 29 H 29 H 23 ABG O2 Saturation 99 H 90 L 98 ABG Base Excess 5 H 4 H -6 L 05/17/25 05/18/25 05/19/25 01:30 04:09 04:43 ABG pH 7.38 7.43 7.47 H ABG pCO2 46 44 43 ABG pO2 90 83 80 L ABG HCO3 27 H 29 H 31 H ABG O2 Saturation 98 97 97 ABG Base Excess 2 5 H 7 H 05/21/25 05/21/25 04:18 06:33 ABG pH 7.37 D 7.46 H ABG pCO2 50 H 38 D ABG pO2 40 L* D 121 H D ABG HCO3 29 H 27 H ABG O2 Saturation 66 L 100 H ABG Base Excess 3 3 Assessment & Plan Additional Assessment & Plan Additional Plan: David Baltazar is 24 yr male with PMH of chronic mastoiditis (previously had tympanostomy tube placed for recurrent otitis media, now removed), seizure disorder, recurrent pneumonia, cerebral palsy, chronic PEG tube, and asthma who was brought into ED on 05/08/25 for ongoing fever of over 24 hours and reported episode of witnessed seizure by ED. Patient was treated for sepsis.Neurology was consulted. #Chronic pansinusitis #ruled out Meningitis #Tonic clonic seizure #Cerebral palsy -continue Keppra and Depakote, phenobarbital per GT -seizure precautions -midazolam for breakthrough seizure as needed MRI brain: chronic pansinusitis. CSF analysis: unremarkable. #Paraphimosis #Normocytic Anemia Primary care team to manage above conditions and ongoing care needs.
[2025-05-28] VITALS (34 sets, daily range): BP systolic 114–154; BP diastolic 59–102; PULSE 100–137; RESP 18–41; TEMP 36.5–38.3; O2SAT 95–100; BMI 30.4
[2025-05-28] MEDS: ALBUTEROL/IPRATROPIUM (Duoneb) RT SOL 3 ML NEBU INH ×2 (01:56→06:34)
[2025-05-28] MEDS: PROPOFOL 1,000 MG IVPB 1,000 MG/100 ML VIAL 4.206 MG IV (04:34)
[2025-05-28] MEDS: VALPROIC ACID SYRUP 250 MG/5 ML UDC GT ×3 (05:09→21:11)
[2025-05-28] MEDS: oxyCODONE HCL 5 MG IR TAB 15 MG PO (05:09)
[2025-05-28] MEDS: PROPRANOLOL 10 MG TABLET PO (05:09)
[2025-05-28 05:20] LABS: Basophils # (Auto) 0.1 Thou/mm3 (0.0-0.2); Basophils % (Auto) 1 % (0-2.5); Eosinophils # (Auto) 0.1 Thou/mm3 (0.0-0.5); Eosinophils % (Auto) 2 % (0-10); Hematocrit 26.0 % (41.0-53.0); Immature Granulocytes Auto 0.10 Thou/mm3 (0.00-0.00); Lymphocytes # (Auto) 0.9 Thou/mm3 (1.0-4.8); Lymphocytes % (Auto) 13 % (10-50); Mean Corpuscular HGB Conc 33.1 g/dl (31.0-37.0); Mean Corpuscular Hemoglobin 28.2 pg (25.0-35.0); Mean Corpuscular Volume 85 fL (80-100); Monocytes # (Auto) 0.8 Thou/mm3 (0.0-0.8); Monocytes % (Auto) 11 % (0-12); Neutrophils # (Auto) 5.1 Thou/mm3 (1.8-7.7); Neutrophils % (Auto) 72 % (37-80); Nucleated Red Blood Cell # 0.00 Thou/mm3 (0.00-0.00); Nucleated Red Blood Cell % 0 /100 WBC (0); Platelet Count 460 Thou/mm3 (140-440); RDW Standard Deviation 46.2 fL (35.1-43.9); Red Blood Count 3.05 Miln/mm3 (4.50-5.90); White Blood Count 7.1 Thou/mm3 (3.8-10.6)
[2025-05-28 05:29] LABS: Hemoglobin 8.6 g/dL (13.5-16.0)
[2025-05-28 06:34] LABS: Alanine Aminotransferase 97 U/L (10-49); Albumin, Serum 4.0 gm/dL (3.5-5.0); Albumin/Globulin Ratio 1.4 (1.2-2.2); Alkaline Phosphatase 289 U/L (46-116); Anion Gap 14 (7-16); Aspartate Amino Transferase 69 U/L (0-34); BUN/Creatinine Ratio 34 Ratio (12-20); Bilirubin,Total 0.4 mg/dL (0.3-1.2); Blood Urea Nitrogen 17 mg/dL (9-23); Calcium 9.3 mg/dL (8.3-10.6); Calcium (Corrected) 9.3 mg/dL (8.5-10.1); Carbon Dioxide 23.8 mMol/L (20.0-31.0); Chloride 97 mMol/L (98-107); Creatinine (Component) 0.5 mg/dL (0.6-1.3); Estimated Creatinine Clearance 182.7 mL/min (>60); Globulin 2.8 gm/dL (2.3-3.5); Glucose 116 mg/dL (74-106); Magnesium 1.8 mg/dL (1.6-2.6); Osmolality,Calculated 272 (275-295); Phosphorous 5.7 mg/dL (2.4-5.1); Potassium 4.2 mMol/L (3.4-5.1); Sodium 135 mMol/L (136-145); Total Protein 6.8 gm/dL (5.7-8.2); eGFR > 60 See Note
[2025-05-28] MEDS: POLYETHYLENE GLYCOL 17 GM PACKET PO (08:05)
[2025-05-28] MEDS: CALCIUM CARBONATE 600 MG TABLET GT (08:05)
[2025-05-28] MEDS: SEVELAMER CARBONATE 0.8 GM PACKET (NON-FORMULARY) GT ×3 (08:05→17:35)
[2025-05-28] MEDS: ENOXAPARIN SOD INJ 40 MG/0.4 ML SYRINGE SC (08:05)
[2025-05-28] MEDS: LANSOPRAZOLE 30 MG TAB.RAP.DR GT (08:05)
[2025-05-28] MEDS: OFLOXACIN OP SOL 0.3% 5 ML BTL 5 DROP BOTH EARS ×2 (08:06→21:13)
[2025-05-28] MEDS: levETIRAcetam LIQD 500 MG/5 ML UDC 1000 MG GT ×2 (08:06→21:10)
--- NOTE | 2025-05-28 08:45 | ESPR_ITS ---
Documentation for date of: 05/28/25 Subjective Subjective Interval history: 05/28/2025: Patient was seen and examined at bedside this morning. No acute events. Patient did not spike any fevers overnight and no WBC spikes. Today patient however did have a rectal temperature of 101 for which Tylenol was given. Hemoglobin dropped from 10.6-8.6 today, but previously patient was around 8. Her still tachycardic and tachypneic. Will go up on oxycodone and will discontinue fentanyl as well as guaifenesin due to possible serotonin syndrome. Started Versed drip and placed on fentanyl. Will start micafungin as patient's left ear culture did grow Meenakshi parapsilosis and could be possible source for fevers. Also ordered cyproheptadine, but unavailable in our pharmacy at this time we will administer was available likely on Friday. Will monitor for further fevers as well as ongoing tachycardia. 05/27/2025: Patient had 2 fevers overnight, up to 104. Resolved with Ibuprofen. Patient received repeat LP yesterday, initial studies unremarkable. Fentanyl titrating down. Propofol remains high, will titrate as tolerated. Changed IV medications to GT when available. Patient tolerated tracheostomy well. 05/26/2025: Patient did not spike any fevers last night. Propofol was decrease to 45, while Fentanyl was maintained at 125. Patient is receiving bladder scans every 4 hours. Most recent in and out catheter revealed 600 cc of urine. Patient will go for tracheostomy today. Neruology will repeat lumbar puncture tonight. Changes to medications: clonazepam 2mg BID to TID, oxycodone 10mg to 15mg TID to try to wean off Fentanyl. Will continue with propranolol as it appears to be working as adjunct. 05/25/2025: Overnight, patient experienced a fever spike of 101.9?F, for which Ibuprofen was administered. Propofol was increased to 50, while Fentanyl was maintained at 125. Urine output over the past 12 hours was 1500cc, with no bowel movement noted. Propranolol 10mg TID was started. Bladder scan every 4 hours to check for urinary retention, if >400cc then straight in and out catheter. Lovonex and tube feeds will be held at midnight in preparation for tomorrow's tracheostomy. Sputum culture grew 2+ yeast, speciation pending. A repeat Cocci serology test was ordered. 05/24/2025: No overnight events. Patient had consistent urine output without the need for straight catheterization. No fever spikes overnight. Remains difficult to titrate down sedatives. Oxycodone 10 mg 3 times daily via G-tube was initiated with goal reducing fentanyl drip. MRI of brain only showed chronic infections, no acute intracranial pathology to explain underlying condition. Resume meropenem due to possibility of resistant Pseudomonas causing sinusitis, will require extended course of antibiotics for completion of treatment. Spoke with family regarding tracheostomy, risks and benefits were explained, family expressed understanding and was agreeable to procedure. General surgery consulted for tracheostomy. 05/23/2025: A continuous EEG was placed at approximately 7:30 PM on 05/22. Overnight, the patient experienced two fever spikes, with a peak temperature of 101.1?F. Patient remained on Propofol 40 mcg/kg/min and Fentanyl 100 mcg/hr. Two doses of Versed were administered for agitation. Patient continues to have increased secretions.Patient had premature ventricular contractions the night before. Repeat labs showed potassium at 5.2, magnesium at 1.9, and phosphorous at 5.5 . Calcium gluconate, breathing treatment, 4 gram of magesium and sevelamer was given. EKG showed sinus tachycardia with QTc 426. Patient also developed acute urine retention, with a bladder scan showing 700 cc. A Hawkins catheter was inserted due to leakage from the previous catheter and noted post- void retention. Patient had approximately 2000 cc of urine output overnight. Since patient's output is more than his input, tube feed water flushes were increased from 45 to 55 cc. Patient had one bowel movement this morning. Hawkins was removed this morning, and straight cath in and out will continue if the patient continues to experience urinary retention. EEG was reviewed by Dr. Lang, who confirmed that there were no signs of status epilepticus or seizures. Plan to do MRI of the brain next. Increased phenobarbital and clonazepam doses. Will work on weaning down propofol as patient's triglycerides are 385. Heparin was switched to Lovenox. 05/22/2025: Overnight, the patient developed fever spikes, with the highest reaching 101?F. Cooling measures were ineffective, and Ibuprofen was administered. In response to the patient's condition, fentanyl was increased from 100 mcg to 150 mcg, and propofol was increased from 35 mcg to 40 mcg. Urine output over the past 12 hours was 1100 cc. Given the recurrence of fevers and signs of hypersympathetic activity, the phenobarbital dosage was increased to 130 mg every 6 hours, up from every 8 hours. C. diff PCR testing is pending for loose stools. The patient has been receiving Versed every 5 minutes for seizure- like activity until it resolves. The ICU team held an extensive discussion with the patient?s parents regarding the next steps, which include transferring the patient to a facility capable of continuous EEG monitoring while weaning off sedation, as the patient continues to experience persistent seizures. Last day of meropenem to complete 10 day course. 05/21/2025: Overnight, patient developed two fever spikes, with a maximum temperature of 102.6?F. Fevers were managed with Tylenol and cooling measures. Hawkins catheter was removed and replaced with a QiVi external catheter, with urine output of 1,650 cc over the past 12 hours. Propofol was increased from 30 to 35 mcg/kg/min due to agitation and the patient breathing over the ventilator, while fentanyl maintained at 150 mcg/hr. No bowel movement was reported overnight. Neurology agreed with gradual weaning of sedation as tolerated. EEG is scheduled for Friday, 05/23, and daily EEG monitoring is not required. Ear culture returned with Meenakshi, likely from normal hamilton from the ear swab. Ears were examed with otoscope. Right ear unremarkable. Left ear canal with clear liquid, like from ofloxacin ear drops. Reduced phenobarbital to 130 mg every 8 hours and clonazepam to 1mg BID. Versed 2 mg IV is available as needed for agitation. Continue meropenem. Fungal culture of ear culture grew Meenakshi, likely representing normal hamilton from the ear swab. Patient exhibited green penile discharge following hawkins removal. A chlamydia and gonorrhea test was ordered. Right arm is warm and tense to touch from IV infiltration, IV was removed and placed in distal part of the right forearm. 05/20/2025: Overnight, patient had a fever spike of 101.2F. Patient remained on Propofol 40 and Fentanyl 150 for sedation. Precedex was not needed for agitation. Urine output was 2800 cc in the past hours with no gross hematuria. No bowel movement. Patient?s phenobarbital dose was adjusted to 260 mg every 8 hours. Keppra dose was increased to 1000 mg twice daily as per the neurologist?s recommendation. An EEG revealed electrographic seizure activity. A repeat sputum culture was obtained due to contamination of the previous sample. Additionally, a gradual wean of propofol and fentanyl was initiated as tolerated. 05/19/2025: Overnight, patient had a fever spike of 102.2?F. Due to agitation, the Versed infusion was increased from 4 mg/gtt to 8mg/gtt. Patient was also receiving Propofol 30 and Fentanyl 150. Patient had one bowel movement and produced 1L of urine over the past 12 hours, with no evidence of gross hematuria. Versed 4 mg gtt was titrated up to 8mg gtt for patient's agitation. Patient was on Propofol 30 and Fentanyl 150. Patient had one bowel movement. Urine output was 1L in the past 12 hours with no gross hematuria. This morning, clonazepam 2 mg PO TID was initiated, Propofol infusion was increased to 50 mcg/kg/min, and fentanyl was maintained at 50 mcg/hr. The versed infusion was discontinued, and Meropenem was restarted to treat Pseudomonas pneumonia, since the patient continued to spike fevers despite discontinuation of the medication. Sputum culture and EEG will be repeated. Heparin was restarted for DVT PPX. 05/18/2025: Overnight, patient remained on Propofol 30 and Fentanyl 300, with Versed 2mg dose x1. Magnesium was given for bronchodilation. Ibuprofen given for fever. Plan was to wean off sedation and extubate the patient today, but due to significant oral secretions and concerns about potential aspiration and the patient's inability to protect the airway, the decision was made to keep the patient intubated for now. A spontaneous breathing trial was attempted, and the patient?s lungs are functioning well. However, given the ongoing agitation, sedation could not be reduced. Phenobarbital dose was increased from 130mg to 260mg every 6 hours, and a 4mg Versed drip was started. Olanzapine was discontinued, and both doxycycline and meropenem were stopped due to concerns of a potential drug reaction, as fever spikes worsened after the initiation of meropenem on 05/12. Heparin was restarted yesterday for a DVT in the left brachial vein but was discontinued this morning due to ongoing hematuria without clots. A follow-up Doppler will be performed in 2-3 days to assess whether the DVT has resolved. Patient?s urine output was 2240cc over the past 12 hours. Maintenance fluids were started at 100ml/hr to manage the increased urine output. ICU team spoke with the patient's mother today, providing updates on the changes in the medication regimen and the patient's current status. Informed her that this is Day 9 of intubation, and there are four more days to attempt extubation before considering a tracheostomy. TSH, EBV, and CMV panels were ordered for further evaluation. 05/17/2025: Overnight,patient was placed on droplet precautions due to positive rhinovirus and human metapneumovirus. Patient received a 4 mg dose of Versed for agitation. Heparin drip was initiated for an upper extremity DVT but was paused at 12:15 AM due to hematuria without clots. Urine output was approximately 170 cc/hr, and the patient had two bowel movements since yesterday. Today, the patient underwent bronchoscopy and tolerated the procedure well, with stable gas exchange observed. To facilitate weaning off fentanyl and propofol, the patient was started on phenobarbital 13 mg and oxycodone 10 mg scheduled TID. Will consider adding Precedex to further support the weaning process and work towards extubation tomorrow. Heparin drip for the DVT has been restarted as the hematuria is improving. Additionally, 1L of IV LR was administered to address hyperkalemia and hyperphosphatemia on AM labs. Plan is to remove the Hawkins catheter tomorrow, 05/18. 05/16/2025: Overnight, patient experienced intermittent spasmodic jerking episodes, lasting about 15-20 minutes at a time. During these episodes, the patient becomes tachycardic and febrile. Baclofen 10mg was administered, followed by a single dose of midazolam 2mg IV for agitation. Patient remains on fentanyl 100 mcg/hr and propofol 50 mcg/kg/min for sedation. Patient spiked a fever of 102.6?F, for which IV tylenol was given. A subsequent temperature of 102.4?F was treated with ibuprofen. The Hawkins catheter was replaced overnight. Urine output over the past 12 hours was approximately 850 mL. Patient has not had a bowel movement since 05/13, will add miralax. Due to persistent fevers, doxycycline 100 mg IV BID was initiated for gram-positive cocci coverage. Blood cultures will be repeated, and a right upper quadrant ultrasound has been ordered to evaluate for potential hepatobiliary source of infection. Liver enzymes are improved from yesterday. Planned Interventions: Initiate phenobarbital 130 mg IV every 6 hours and begin weaning off propofol. Increased olanzapine from 5 mg GT QHS to 5 mg TID. Perform bilateral upper extremity ultrasound to assess for DVT. Repeat UA, CXR, CT head and abd/pelvis. Check lipase levels. 05/15/2025: Overnight, the patient developed a fever of 101.8?F. PO acetaminophen was switched to IV formulation by the night team. Temperature improved to 99.5?F by morning. Urine output over the past 12 hours was approximately 620 cc. Liver enzymes continue to trend upward, will hold acetaminophen for now. Patient was weaned off midazolam infusion today. Plan is to begin tapering propofol next. Antipsychotic regimen was adjusted from quetiapine to olanzapine to minimize risk of QTc prolongation. Repeat chest X- ray showed improvement in bilateral pneumonia. Bronchoscopy was performed yesterday (05/14). Repeat procedure is being considered for 05/16. Increase in WBCs and fever likely from bronchoscopy. 05/14/2025: No acute events overnight. Stable on versed/ fentanyl and propofol. No vasopressor requirements. Patient underwent bronchoscopy, well tolerated. Gas exchange stable. PPeak remains in mid20s. Patient on minimal FiO2 and PEEP now. Good ventilator synchrony. Continues to have heavy drooling and output form upper airway. Minimal from ETT now. 05/13/2025: Patient increased FiO2 overnight to 100%. Difficulty managing secretions. Bleeding from nose and plugging. Agitated with maximal dose of precedex and benadryl pushes. Patient with low grade temp to 100.4F. Mild secretions from ETT, pink/ frothy. 05/12/2025: Patient weaned down on sedation. Tmax 102 degrees at 1600 hrs. 05/11. Patient developed mild hepatitis, likely response to medications, will monitor. Patient successfully weaned off of propofol and fentanyl, Precedex initiated. Patient extubated, placed on high flow. Continues to have high secretions, treated with chest PT, oral suctioning as needed, ipratropium breathing treatments scheduled. Patient notably agitated, treating with Benadryl as needed and Precedex drip. Will continue to try and decrease sedation while maintaining patent airway. Sputum culture grew thurman resistant Pseudomonas, meropenem initiated. Will continue Levaquin for now pending cultures. Ear cultures taken. Patient maintaining good urine output, will replete volume if patient exceeds greater than 2 L output. 05/11/2025: Overnight, the patient became increasingly agitated and was observed biting on the endotracheal tube. In response, propofol was increased from 40 mcg/kg/min to 45 mcg/kg/min, and fentanyl was increased from 200 mcg/hr to 250 mcg/hr. The plan is to attempt weaning the patient off sedation today, and work towards extubation. A lumbar puncture was performed, which showed 3 WBCs. Infection from meningitis is less likely, but culture results are pending for confirmation. Today, the patient has been experiencing a low-grade fever, with the highest recorded temperature being 100.4?F. After the Hawkins catheter was placed, the patient had 1700 cc of urine output over the past 12 hours. Followed up with Dr. Jacky Cuadra (ENT in [place]). Dr. Cuadra stated that there is nothing additional he could identify on the CT imaging that the radiologist has not already seen. And that if there was something it would likely be surgical and he does not perform surgeries. He recommended covering for Pseudomonas with clindamycin and Unasyn. The plan is to start levofloxacin for Pseudomonas coverage as well. Additionally, Dr. Cuadra suggested culturing the ear. 05/10/2025: Patient remained sedated with propofol and fentanyl throughout the night, maintaining adequate sedation levels. Around 2 AM, the propofol dose was reduced due to MAP in the 60s. 1L of LR was administered on top of the ongoing IV maintenance fluids at 100cc/hr. Following this, the MAP remained stable above 65. At 6:50 PM on 05/09, an ABG revealed a pH of 7.28, pCO2 of 55, and pO2 of 70, indicative of respiratory acidosis. Patient was given 5 grams of magnesium and 15 mg of albuterol over the course of an hour to promote bronchodilation. Magnesium also needed to be repleted. A repeat ABG showed normalization of the respiratory parameters. Patient's Hawkins catheter was removed and replaced with a QiVi catheter overnight per the patient's father?s request. However, the patient developed urinary retention. A bladder scan performed at 6 AM showed 295cc of retained urine, and a subsequent scan in the afternoon revealed 439cc. Primary team consulted ICU team. On 05/09, two rapid responses were initiated due to the patient?s escalating agitation and anxiety. Patient appeared to be in significant pain from his paraphimosis. The primary team consulted the ICU for further management, as the patient had already received diazepam, haldol, versed, and dilaudid earlier that morning, with inadequate relief. Additionally, there was concern over a decline in his pO2 levels. The initial ABG at 11:56 showed: pH 7.40, pCO2 40, pO2 131, HCO3 25. A repeat ABG at 13:40 revealed: pH 7.27, pCO2 43, pO2 53, HCO3 20. Upon evaluation by the ICU team, the patient was noted to be extremely agitated and wearing an oxygen mask, with audible gurgling sounds coming from the upper airway, raising concern for potential airway compromise. Given the risk of inadequate airway protection, the decision was made to transfer the patient to the ICU for intubation and further management. In the ICU, the patient was intubated. Urology, Dr. Vargas, was consulted earlier in the day. He was able to successfully perform a reduction of the paraphimosis. Telemetry Course: Patient was admitted to telemetry for further workup and management of sepsis of unknown source, with concern for meningitis. Empiric broad-spectrum antibiotic and antiviral therapy were started, consisting of ceftriaxone 2g IV twice daily, vancomycin (pharmacy to dose), ampicillin, and acyclovir. Neurology was consulted. CT of the orbit, sella, and inner ear was ordered given the patient?s history of acute mastoiditis, which showed severe bilateral chronic mastoiditis, bilateral otitis externa, bilateral otitis media, and bilateral cholesteatomas in the attics. CT head was also performed and was negative for acute hemorrhage, mass effect, or midline shift. Findings included prominent sphenoid, ethmoid, and maxillary antral sinusitis, bilateral chronic mastoiditis, bilateral otitis media, and opacification in the bilateral attics. For the patient?s seizures, his home medications of valproic acid and levetiracetam were restarted. Orders for midazolam and Haldol were placed as needed for breakthrough seizures and agitation. An ice pack was ordered for his paraphimosis. Infectious disease was also consulted. History of Present Illness: 24-year-old male with a past medical history significant for cerebral palsy, asthma, seizure disorder, chronic mastoiditis (previously treated with tympanostomy tube placement for recurrent otitis media, now removed), recurrent pneumonia, and chronic PEG tube dependence, presented to the ED on 05/08/2025 with a fever lasting over 24 hours. The patient also had a witnessed seizure episode lasting 5-10 seconds, characterized by tonic-clonic activity confined to the left side of the body. ED Course: -Initial vitals were: BP 122/84, HR 176, RR 26, T 105F, O2 sat 96% on room air. -Labs significant for: CBC showed a WBC of 16.3. CMP showed Na 148, K 5.2, Cl 107, bicarbonate 18.7, anion gap 22, creatinine 1.3 (baseline 0.7), lactic acid 3.2, alkaline phosphatase 120, LDH 352, total CK 1048, procalcitonin: 0.14. Urinalysis negative. Influenza A/B testing was negative. -Imaging included: EKG showed supraventricular tachycardia of HR [address] and T-wave abnormality. CXR showed no aspiration pneumonia but was noted to be of poor inspiratory effort. CT CAP w/o contrast seemed to show no gross infiltrates or other notable findings but was noted to be severely degraded by patient motion. -In the ED, patient was given acetaminophen 975 mg, ceftriaxone 1 gram IV, midazolam 2 mg IV x1, albuterol 2.5 mg, Zosyn 3.375 gram, 2 L NS fluid infusion, and 1 L LR fluid infusion. In the ED, the patient was agitated and pulled out his IV. Attempts at peripheral access were unsuccessful, and a right femoral central line was placed. Exam Vital Signs Temp Pulse Resp BP Pulse Ox O2 Del Method O2 Flow Rate 99.4 F 115 H 18 137/82 H 97 Trach Collar 35 05/28/25 04:00 05/28/25 07:00 05/28/25 06:35 05/28/25 07:00 05/28/25 07:00 05/28/25 04:00 05/16/25 12:00 FiO2 30 05/28/25 07:46 Narrative Exam Gen: sedated and trached, nonverbal at baseline, not in acute distress. HEENT: NCAT, EOMI, Pupils reactive KARLO, not icteric, Bilateral inferior eye scleral hemorrhage. External ears normal. No rhinorrhea. Moist mucous membranes. Neck: Supple, full range of motion, no observable masses, No meningeal sign. Lungs: No Respiratory distress, Rhonchi bilateral. CV: RRR, no murmurs. Abdomen: Soft, nondistended, No rebound tenderness, PEG tube in place. MSK: No lower extremity edema no redness, peripheral pulses presents, Contracted and swollen hands. Skin: No rashes, petechiae, lesions. Neuro: Unable to assess due to patient's medical condition, pupils reactive Objective Labs 06/05/25 05:16 06/06/25 04:39 Labs: Laboratory Results - last 24 hr 05/25/25 05/28/25 11:00 04:22 WBC 7.1 RBC 3.05 L Hgb 8.6 L D Hct 26.0 L MCV 85 MCH 28.2 MCHC 33.1 RDW Std Deviation 46.2 H Plt Count 460 H D Neut % (Auto) 72 Lymph % (Auto) 13 Rowan % (Auto) 11 Eos % (Auto) 2 Baso % (Auto) 1 Neut # (Auto) 5.1 Lymph # (Auto) 0.9 L Rowan # (Auto) 0.8 Eos # (Auto) 0.1 Baso # (Auto) 0.1 Immature Gran # (Auto) 0.10 H Absolute Nucleated RBC 0.00 Immature Gran % 1 H Nucleated RBC % 0 Sodium 135 L Potassium 4.2 Chloride 97 L Carbon Dioxide 23.8 Anion Gap 14 BUN 17 Creatinine 0.5 L Estim Creat Clear Calc 182.7 eGFR > 60 BUN/Creatinine Ratio 34 H Glucose 116 H Calculated Osmolality 272 L Calcium 9.3 Corrected Calcium 9.3 Phosphorus 5.7 H Magnesium 1.8 Total Bilirubin 0.4 D AST 69 H ALT 97 H Alkaline Phosphatase 289 H D Total Protein 6.8 Albumin 4.0 Globulin 2.8 Albumin/Globulin Ratio 1.4 Coccidioides IgG Ab Negative ABG Interpretation ABG results: 05/09/25 05/09/25 05/09/25 11:56 13:40 18:50 ABG pH 7.40 7.27 L D 7.28 L ABG pCO2 40 43 55 H D ABG pO2 131 H 53 L* D 70 L ABG HCO3 25 20 26 ABG O2 Saturation 99 H 81 L 92 ABG Base Excess 0 -7 L -2 05/10/25 05/11/25 05/12/25 00:14 05:06 01:18 ABG pH 7.35 7.33 L 7.39 ABG pCO2 42 D 54 H D 48 ABG pO2 103 D 93 94 ABG HCO3 23 28 H 29 H ABG O2 Saturation 99 H 98 98 ABG Base Excess -3 2 3 05/12/25 05/12/25 05/13/25 03:58 11:50 05:10 ABG pH 7.46 H 7.39 7.19 L* D ABG pCO2 41 48 60 H D ABG pO2 105 58 L* D 114 H D ABG HCO3 29 H 29 H 23 ABG O2 Saturation 99 H 90 L 98 ABG Base Excess 5 H 4 H -6 L 05/17/25 05/18/25 05/19/25 01:30 04:09 04:43 ABG pH 7.38 7.43 7.47 H ABG pCO2 46 44 43 ABG pO2 90 83 80 L ABG HCO3 27 H 29 H 31 H ABG O2 Saturation 98 97 97 ABG Base Excess 2 5 H 7 H 05/21/25 05/21/25 04:18 06:33 ABG pH 7.37 D 7.46 H ABG pCO2 50 H 38 D ABG pO2 40 L* D 121 H D ABG HCO3 29 H 27 H ABG O2 Saturation 66 L 100 H ABG Base Excess 3 3 Quality Measures Quality Measures VTE prophylaxis (SCDs) and sepsis Current suspected stage: ruled out Possible source: pulmonary Blood cultures ordered: yes Antibiotic ordered: No Assessment & Plan Assessment Current Active Medications: Generic Name Dose Route Start Last Admin Trade Name Freq PRN Reason Stop Dose Admin Albuterol/Ipratropium 3 ml 05/09/25 18:19 05/28/25 06:34 Albuterol/Ipratropium (Duoneb) Rt Racquel 3 Ml Nebu INH 06/08/25 18:18 3 ml Q2HR PRN Administration SHORTNESS OF BREATH OR WHEEZE Calcium Carbonate 600 mg 05/20/25 18:20 05/28/25 08:05 Calcium Carbonate 600 Mg Tablet GT 06/19/25 18:19 600 mg QDAY KYA Administration Clonazepam 2 mg 05/26/25 14:00 05/28/25 05:09 Clonazepam 0.5 Mg Tablet PO 05/31/25 13:59 2 mg TID KYA Administration Enoxaparin Sodium 40 mg 05/23/25 11:15 05/28/25 08:05 Enoxaparin Sod Inj 40 Mg/0.4 Ml Syringe SC 06/06/25 11:14 40 mg QDAY KYA Administration Guaifenesin 200 mg 05/24/25 20:31 05/24/25 20:54 Guaifenesin Syrup 200 Mg/10 Ml Udc GT 06/23/25 20:30 200 mg QID PRN Administration ET secretions Protocol Propofol 1,000 mg in 100 mls @ 2.103 mls/hr 05/13/25 04:16 05/28/25 06:00 Diprivan Ivpb IV 06/12/25 04:15 10 mcg/kg/min .Q24H PRN 4.206 mls/hr PER PROTOCOL Titration Protocol 5 MCG/KG/MIN Lansoprazole 30 mg 05/28/25 09:00 05/28/25 08:05 Lansoprazole 30 Mg Tab.Rap. GT 06/27/25 08:59 30 mg QDAY KYA Administration Levetiracetam 1,000 mg 05/27/25 21:00 05/28/25 08:06 Levetiracetam Liqd 500 Mg/5 Ml c GT 06/26/25 20:59 1,000 mg BID KYA Administration Ofloxacin 5 drop 05/21/25 14:45 05/28/25 08:06 Ofloxacin Op Racquel 0.3% 5 Ml Btl BOTH EARS 05/31/25 14:44 5 drops BID KYA Administration Ondansetron HCl 4 mg 05/27/25 14:37 Ondansetron Odt 4 Mg Tabrap GT 06/26/25 14:36 Q6HR PRN NAUSEA OR VOMITING Protocol Oxycodone HCl 15 mg 05/26/25 14:00 05/28/25 05:09 Oxycodone Hcl 5 Mg Ir Tab PO 05/31/25 13:59 15 mg TID KYA Administration Phenobarbital 259.2 mg 05/28/25 07:15 05/28/25 07:32 Phenobarbital 32.4 Mg Tablet GT 06/11/25 07:14 259.2 mg Q6HR KYA Administration Polyethylene Glycol 17 gm 05/16/25 09:15 05/28/25 08:05 Polyethylene Glycol 17 Gm Packet PO 06/15/25 09:14 17 gm QDAY KYA Administration Propranolol HCl 10 mg 05/25/25 14:00 05/28/25 05:09 Propranolol 10 Mg Tablet PO 06/24/25 13:59 10 mg TID KYA Administration Sevelamer Carbonate 0.8 gm 05/27/25 08:00 05/28/25 08:05 Sevelamer Carbonate 0.8 Gm Packet (Non-Formulary) GT 06/26/25 07:59 0.8 gm TIDWM KYA Administration Sodium Chloride 3 ml 05/17/25 11:43 Sodium Chloride Rt Racquel 0.9% 3 Ml Nebu INH 06/16/25 11:42 PRN PRN SOLN Valproic Acid 250 mg 05/27/25 18:00 05/28/25 05:09 Valproic Acid Syrup 250 Mg/5 Ml Udc GT 06/26/25 17:59 250 mg Q8HR KYA Administration Plan 24-year-old male with cerebral palsy, asthma, seizure disorder, chronic mastoiditis, recurrent pneumonia, and chronic PEG tube dependence presented with fever and seizure, was admitted for sepsis workup, and later transferred to the ICU for intubation due to concerns about airway protection. Neurology #Agitated delerium #Serotonin Syndrome? Patient was extremely agitated before ICU admission, likely due to pain from paraphimosis. Patient initially sedated with propofol and fentanyl, titrated to Precedex with Benadryl before extubation. Patient failed extubation and was intubated on 05/12. Propofol and fentanyl was restarted. Still spiking fevers and tachycardic, possible serotonin syndrome Diagnostic Test: - EEG did not show seizure activity per neurology. - MRI brain 05/23: showed chronic infections, no acute pathology. Treatment Review (completed) - Midazolam 4mg --> 8mg gtt 05/18-05/19. Treatment Plan: - Discontinued Propranolol 10 mg TID. - Discontinued Fentanyl 25 and Propofol 4 - Phenobarbital 260 mg Q6H. - Clonazepam 2 mg TID. - Increase Oxycodone to 30 mg TID. - Started Versed drip - Ordered cyproheptadine, but unavailable in our pharmacy at this time we will administer was available likely on - Neurology consulted, appreciate recommendations. #History of seizures #Cerebral palsy Diagnosis: - Temperature of 105F on admission. - EEG 05/11 unremarkable - Repeat EEG 05/20: electrographic seizure activity. - Persistent fever spikes. - Continuous EEG 05/22-05/23: no seizure activity or status epilepticus. Treatment Plan: - Levetiracetam 1000 mg BID. - Valproic acid 187.5 mg Q6H. - Adjust seizure medications if breakthrough seizures persist. - Seizure precautions. - Aspiration precautions. -Neurology on board, appreciate recs Cardiovascular #Sinus tachycardia (improving) DDx: fevers vs hypersympathetic activity. Diagnostic Test: - Fever spikes associated with tachycardia, tachypnea Treatment Plan: - Stopped medication that could cause serotonin syndrome - No specific treatment required at this time. Infectious disease workup remains unrevealing. Unsure of the cause of fever spikes which are associated with tachycardia and tachypnea. - Continue close cardiac monitoring. - Monitor electrolytes and replete as needed. - Maintain Mg > 2 and K > 4 to reduce arrhythmia risk. Respiratory #Failed extubation 05/12 #Acute hypoxic respiratory failure Diagnostic Test: - CXR 05/11: Mild bilateral perihilar pneumonia. To assess for ventilator associated pneumonia. Not much change from 05/09 CXR. - Resistant Pseudomonas from ETT secretions previously (05/09). - CXR 05/19: Significant bilateral pneumonia. Treatment Review (completed): - Patient extubated to [facility] 05/12, chest film with centro-bronchovascular congestion and multifocal pneumonia. - Reintubated overnight 05/13- VC/AC PPeak 20 PEEP 5 FiO2 40%. - Patient underwent bronchoscopy on 05/14 and 05/17 for secretions, well tolerated. - Meropenem (05/12-05/17, 05/19-05/22, for a total of ten days). Treatment Plan: - 05/20 sputum culture grew meenakshi - Repeat Cocci serology test was negative - Bronchoscopy fungal culture pending. - Started micafungin 100mg qday - Chest physiotherapy PRN. - Tracheostomy completed 05/26, well tolerated. #Bronchospasm #History of asthma Diagnostic Test: - Although the patient has a history of asthma, the bronchospasm is most likely from the irritant effect of blood in the airway. A small amount of blood, which was likely from dryness of the nasal mucosa, was suctioned out during intubation. Treatment Plan: - Magnesium for bronchodilator effect as needed. - Albuterol and Ipratropium as needed. GI, , F/E/N #Chronic PEG tube dependence Treatment Plan: - Jevity 1.5 at 40 ml/hr x 24 hrs via PEG tube by pump (goal). If no IV fluids, water flushes of 55 ml/hr. - ProStat 30ml BID via PEG tube. - Appreciate quality assurance supervisor trim recommendations. - Triglyceride level 05/14 - 290; 05/17 - 312; 05/20 - 221; 05/26 - 275. - Repeat TG levels every 72 hours when on Propofol, which should be discontinued if triglyceride levels reach or exceed 400 mg/dL to prevent hypertriglyceridemia-associated complications. - Next check 05/29 is patient remains on Propofol. #Hepatitis (downtrending) Likely due to meropenem or tylenol that could potentially cause hepatotoxicity. Diagnostic Test: - Gallbladder ultrasound 05/16: Normal gallbladder, no gallstones. Fatty infiltration throughout the liver. - Lipase 05/16: 41 wnl. Treatment Plan: - Continue daily LFTs. - Avoid acetaminophen unless fever exceeds 101.0?F or Ibuprofen as alternative. - Will reassess if transaminases continue to rise or clinical status changes. #Acute urinary retention (resolved) Treatment Plan - Monitor urine output, replace fluid if needed. - Hawkins removed 05/23 - Every 4 hour bladder scan and straight cath as needed. #Hypoalbuminemia (resolved) Likely due to acute hepatitis Diagnostic Test: - UA had urine proteins 1+. - Albumin 4.9 -->3.3 -->2.8 --> 3.2 --> 3.4 --> 2.8 --> 2.5---> 4. Treatment Plan: - Monitor LFTs, INR, and bilirubin. - Maintain on PEG tube feeds per quality assurance supervisor trim recommendations. #Paraphimosis (resolved) #Balanitis (resolved) Diagnostic Test: - Edema and tenderness of the glans penis. - Swelling of the distal retracted foreskin. - Constricting band of tissue proximal to the head of the penis at the coronal sulcus. - Hawkins was removed on 05/09 and transitioned to Oivi external urinary catheter. Discussed with family about the need to reinsert hawkins due to the patient's acute urinary retention. Family were in agreement with this plan. Hawkins was reinserted on 05/10 due to urinary retention. Hawkins changed and replaced on 05/16. - S/p reduction of the paraphimosis by Dr. Vargas on 05/09. Treatment Plan: - Control patient's pain with sedation. - Monitor urine output. Renal #Hyperkalemia (resolved) #Hyperphosphatemia (downtrending) DDx: acute kidney injury vs hemolysis vs rhabdomyolysis. Treatment Plan: - Monitor BMP and phosphorus. - Monitor potassium levels to avoid arrhythmias. - Sevelamer 800 milligram GT 3 times daily, will adjust if needed. #Acute kidney injury (resolved) DDx: dehydration or vasodilation from sepsis. Diagnositc Test: - Creatinine 0.5 Treatment Plan: - Continue with free water flushes. - Daily renal panel to trend BUN, Cr, and electrolytes. - Avoid nephrotoxins. - Renally dose meds as appropriate. - Strict I&Os, monitor urine output closely. - Monitor for signs of volume overload or uremic symptoms. #Anion Gap Metabolic Acidosis (resolved) #Lactic acidosis (resolved) DDx: seizures vs sepsis vs acute kidney injury vs hypoperfusion. Likely from seizures as patient has no signs of systemic hypoperfusion such as skin mottling, decreased cap refills. Diagnostic Test: - Admission anion gap 22, lactic acid 16.0, bicarbonate 18.7. #Rhabdomyolysis (resolved) DDx: seizures vs hyperthermia vs infectious myositis. Diagnostic Test: - CK 1048 --> 3743 --> 1654 --> 338 --> 363. - Witnessed seizure episode lasting 5-10 seconds, characterized by tonic-clonic activity prior to admission. Treatment Plan: - Continue free water flushes at 35 cc/hr. - Monitor urine output. - Correct electrolyte abnormalities. - Control seizures with valproic acid and levetiracetam. - Monitor renal panel. Heme #Acute nonocclusive thrombus in the left brachial vein Diagnostic Test: - Venous doppler study of upper extremities 05/16: Normal right upper extremity deep venous system. Positive for nonocclusive thrombus in the left brachial vein. - Per chart review and patient's parents, patient does not have history of clots. Treatment Review (completed): - Lovenox 30 mg (05-11 - 05/15). - Lovenox 40 mg (05/16). - Heparin loading dose and ggt. Lovenox to heparin due to heparin?s shorter half-life, which allows for more rapid cessation in the event of bleeding, a shorter half life and can be stopped if bleeding occurs. - Stopped heparin ggt due to hematuria on 05/18. Treatment Plan: - Lovenox 40 mg SC QD. - Primary upper extremity deep vein thrombosis, anticoagulation should be continued for a minimum of three months following the initial thrombotic event. #Normocytic Anemia DDx: Anemia of Inflammation vs dilutional anemia vs drug-induced anemia. Likely dilutional anemia since patient had normal hemoglobin on admission and from IV fluids per sepsis protocol. No signs of bleeding. Treatment Plan: - Monitor H&H. - Type and screen. - Transfusing for Hgb <7 or symptomatic. #Thrombocytosis DDx: infection vs reactive Diagnostic Test: - Plt 711. Treatment Plan: - Monitor CMP. #Leukocytosis (resolved) DDx: likely due to bronchoscopy vs infection of unknown source vs drug induced Diagnostic Test: - Continue to have fever spikes as high as 102.8?F. -WBC 7.1 today Treatment Plan: - Treat underlying cause. #Thrombocytopenia (resolved) DDx: Dilutional versus consumption versus increased destruction due to sepsis. Initial decrease is likely due to dilutional in setting of IV fluids, however his WBC and hemoglobin have leveled off platelets have down trended. Diagnostic test: - Platelets: 209 --> 65-->141-->460. Treatment plan: - Monitor daily labs - Avoid excessive oral tracheal suctioning in setting of previous bleed and thrombocytopenia. Endo #no active problems ID #Sepsis #Bilateral chronic mastoiditis #Sinusitis #Bilateral otitis media #Bilateral otitis externa #Meenakshi parapsilosis DDx: meningitis vs acute on chronic mastoiditis vs acute febrile illness. Diagnostic Test: - History of chronic mastoiditis. - Met SIRS criteria on admission: T 105F, HR 176, RR 26, PaCO2 26, WBC 16.3. - 05/08 CT Head: prominent sphenoid ethmoid maxillary antral sinusitis, bilateral chronic mastoiditis, bilateral otitis media. - 05/08 CT Orbit Sella Inner: severe bilateral chronic mastoiditis, bilateral otitis externa and otitis media, bilateral cholesteatomas in the attics. - 05/09 Sputum culture: 1+ thurman resistance Pseudomonas. - 05/10 Lumbar puncture: clear, WBC 3, glucose 70, total protein 25. CSF testing negative. - 05/10 Respiratory viral panel: rhinovirus/enterovirus and human metapneumovirus detected. - 05/12 Bilateral ear culture: E coli ESBL. - UA 05/08 and 05/16 negative. - Blood culture 05/08, 05/11, and 05/16 negative. - 05/16 CXR: worsening diffuse severe left lung pneumonia. - Meenakshi parapsilosis in L ear culture Treatment Review (completed) - Rocephin 2 gm IV q12HR [05/08-05/11]. - Vancomycin dosed by pharmacy [05/08-05/11] since MRSA screen is negative. - Acyclovir 700 mg IV [05/08-05/11] since LP negative. - Fluids: 30mL/kg -- 2 L NS fluid infusion and 1 L LR fluid infusion was given in the ED. - Femoral central line removed 05/11, replaced with peripheral access. Treatment Plan: - Topical oxofloxacin. - Micafungin 100mg qday - A repeat Cocci serology test was negative Integumentary #Maculopapular rash to the buttocks DDx: contact dermatitis vs allergic dermatitis Treatment Plan - Patient no longer has diaper on. Anticipate rash to improve. Health Maintenance DVT prophylaxis: SCDs, Levonox 40mg QD GI prophylaxis: Protonix IV Diet: Jevity Hawkins: none. Straight cath in/out q4h if urine retention more than 400 ml Lines: Peripherals, PEG tube. Drips: Versed Code status: Full code Case disclosed with Attending Dr. Marcello Easton PGY2 Disclaimer: Even though this this note was dictated by speech recognition and even though it was carefully revised there may still be minor errors in clinical sales consultant due to voice recognition software. Attending Provider Attestation/Addendum Patient seen and examined with the above resident, Alexandr Easton MD. I agree with the findings, assessment, and plan of care as document except for any differences below. Patient remains febrile with unclear etiology. Repeated assessments for infection and courses of antibiotics have failed to treat adequately. Suspect the patient does have Meenakshi growth including in the area though this is most likely from repeated antibiotics. Patient started on micafungin. Alternatively review of chart revealed that the patient may have had serotonin syndrome in the past with previous fever of unknown origin. Patient apparently reacted to guaifenesin and antidepressant at that time. With prompt discontinuation of both drugs the patient did defervesce. We have stopped fentanyl and perphenazine now. Will try to obtain cyproheptadine which is not available at our facility. Benzodiazepines remain cornerstone of therapy despite this. We will reassess in the next 24 hours defervescence if it occurs. Will be difficult to discern with micafungin was helpful in 2-week course would be reasonable to repeat a procalcitonin may be reassuring and we will need to further assess need for additional serologic testing for fungal infection. Patient remains stable on mechanical ventilation and we will continue weaning his sedation off gradually with just Versed drip now and discontinuation of propofol and fentanyl which could both be causing propofol infusion syndrome or serotonin syndrome as detailed above. Patient's family not at bedside for me to update them the housestaff will reach out today. Total critical care time: I personally spent 35 minutes review of physiologic parameters, directing plan of care throughout the day, and coordination of care with specialists. This is exclusive of time spent teaching of staff performing separate billable procedures. Patient remains at significant risk for further morbidity and mortality warranting close monitoring care only available in the ICU. Critical care services required for serotonin syndrome, acute/chronic respiratory failure with hypoxia, otitis externa secondary to fungal etiology.
[2025-05-28] MEDS: MIDAZOLAM/NS 100 MG IVPB 100 MG/100 ML BAG IV (10:58)
[2025-05-28] MEDS: MICAFUNGIN SODIUM INJ 100 MG in SODIUM CHLORIDE 0.9% 100 ML IV (12:42)
[2025-05-28] MEDS: oxyCODONE HCL 5 MG IR TAB 30 MG PO ×2 (14:59→21:11)
--- NOTE | 2025-05-28 23:42 | PD.NEUROPROG ---
Documentation for date of: 05/28/25 Subjective Subjective Interval history: Patient was seen in ICU today at the bedside. He underwent tracheostomy recently and Continued to remain on mechanical ventilatory support on minimal sedation. No clinical seizures reported overnight. Exam - Neurology Vital Signs Temp Pulse Resp BP Pulse Ox O2 Del Method O2 Flow Rate 99.7 F 102 H 27 H 114/59 L 100 Mechanical Ventilation 35 05/28/25 20:00 05/28/25 23:00 05/28/25 18:56 05/28/25 23:00 05/28/25 23:00 05/28/25 16:00 05/16/25 12:00 FiO2 30 05/28/25 22:40 Narrative Exam GENERAL APPEARANCE: Developmentally delayed male , trached and on mechanical ventilatory support HEENT: Normocephalic, atraumatic, Pupils: Equal reacting to light NECK: Supple, no JVD or bruits. CARDIOVASULAR: Heart: S1, S2 heard, regular without S3-S4 or murmur no rubs or gallops. LUNGS/CHEST: Breath sounds heard equally bilaterally, bilateral Rales and rhonchi heard. ABDOMEN: Soft, nontender, with normal bowel sounds. No pulsatile masses. No rebound, rigidity, or guarding. Normal inspection and palpation. EXTREMITIES: Normal inspection and palpation. No edema, clubbing or cyanosis. SKIN: Warm and dry without rashes. Normal inspection. NEURO: Limited from sedation, brainstem function: partly Intact, moves all extremities. PSYCHIATRIC: Limited Objective Labs 05/28/25 04:22 05/28/25 04:22 Labs: Laboratory Results - last 24 hr 05/28/25 04:22 WBC 7.1 RBC 3.05 L Hgb 8.6 L D Hct 26.0 L MCV 85 MCH 28.2 MCHC 33.1 RDW Std Deviation 46.2 H Plt Count 460 H D Neut % (Auto) 72 Lymph % (Auto) 13 [place] % (Auto) 11 Eos % (Auto) 2 Baso % (Auto) 1 Neut # (Auto) 5.1 Lymph # (Auto) 0.9 L [place] # (Auto) 0.8 Eos # (Auto) 0.1 Baso # (Auto) 0.1 Immature Gran # (Auto) 0.10 H Absolute Nucleated RBC 0.00 Immature Gran % 1 H Nucleated RBC % 0 Sodium 135 L Potassium 4.2 Chloride 97 L Carbon Dioxide 23.8 Anion Gap 14 BUN 17 Creatinine 0.5 L Estim Creat Clear Calc 182.7 eGFR > 60 BUN/Creatinine Ratio 34 H Glucose 116 H Calculated Osmolality 272 L Calcium 9.3 Corrected Calcium 9.3 Phosphorus 5.7 H Magnesium 1.8 Total Bilirubin 0.4 D AST 69 H ALT 97 H Alkaline Phosphatase 289 H D Total Protein 6.8 Albumin 4.0 Globulin 2.8 Albumin/Globulin Ratio 1.4 ABG Interpretation ABG results: 05/09/25 05/09/25 05/09/25 11:56 13:40 18:50 ABG pH 7.40 7.27 L D 7.28 L ABG pCO2 40 43 55 H D ABG pO2 131 H 53 L* D 70 L ABG HCO3 25 20 26 ABG O2 Saturation 99 H 81 L 92 ABG Base Excess 0 -7 L -2 05/10/25 05/11/25 05/12/25 00:14 05:06 01:18 ABG pH 7.35 7.33 L 7.39 ABG pCO2 42 D 54 H D 48 ABG pO2 103 D 93 94 ABG HCO3 23 28 H 29 H ABG O2 Saturation 99 H 98 98 ABG Base Excess -3 2 3 05/12/25 05/12/25 05/13/25 03:58 11:50 05:10 ABG pH 7.46 H 7.39 7.19 L* D ABG pCO2 41 48 60 H D ABG pO2 105 58 L* D 114 H D ABG HCO3 29 H 29 H 23 ABG O2 Saturation 99 H 90 L 98 ABG Base Excess 5 H 4 H -6 L 05/17/25 05/18/25 05/19/25 01:30 04:09 04:43 ABG pH 7.38 7.43 7.47 H ABG pCO2 46 44 43 ABG pO2 90 83 80 L ABG HCO3 27 H 29 H 31 H ABG O2 Saturation 98 97 97 ABG Base Excess 2 5 H 7 H 05/21/25 05/21/25 04:18 06:33 ABG pH 7.37 D 7.46 H ABG pCO2 50 H 38 D ABG pO2 40 L* D 121 H D ABG HCO3 29 H 27 H ABG O2 Saturation 66 L 100 H ABG Base Excess 3 3 Assessment & Plan Additional Assessment & Plan Additional Plan: David Baltazar is 24 yr male with PMH of chronic mastoiditis (previously had tympanostomy tube placed for recurrent otitis media, now removed), seizure disorder, recurrent pneumonia, cerebral palsy, chronic PEG tube, and asthma who was brought into ED on 05/08/25 for ongoing fever of over 24 hours and reported episode of witnessed seizure by ED. Patient was treated for sepsis. Neurology was consulted. #Chronic pansinusitis #ruled out Meningitis #Tonic clonic seizure #Cerebral palsy -continue Keppra and Depakote, phenobarbital per GT -seizure precautions -midazolam for breakthrough seizure as needed MRI brain: chronic pansinusitis. Underwent repeat LP with unremarkable CSF analysis. #Paraphimosis #Normocytic Anemia Primary care team to manage above conditions and ongoing care needs.
[2025-05-29] VITALS (28 sets, daily range): BP systolic 112–159; BP diastolic 60–100; PULSE 99–132; RESP 15–35; TEMP 36–37.3; O2SAT 94–100; BMI 30.2
[2025-05-29 05:42] LABS: Basophils # (Auto) 0.1 Thou/mm3 (0.0-0.2); Basophils % (Auto) 1 % (0-2.5); Eosinophils # (Auto) 0.4 Thou/mm3 (0.0-0.5); Eosinophils % (Auto) 5 % (0-10); Hematocrit 27.1 % (41.0-53.0); Hemoglobin 8.7 g/dL (13.5-16.0); Immature Granulocytes Auto 0.11 Thou/mm3 (0.00-0.00); Lymphocytes # (Auto) 1.5 Thou/mm3 (1.0-4.8); Lymphocytes % (Auto) 19 % (10-50); Mean Corpuscular HGB Conc 32.1 g/dl (31.0-37.0); Mean Corpuscular Hemoglobin 27.6 pg (25.0-35.0); Mean Corpuscular Volume 86 fL (80-100); Monocytes # (Auto) 1.2 Thou/mm3 (0.0-0.8); Monocytes % (Auto) 14 % (0-12); Neutrophils # (Auto) 4.9 Thou/mm3 (1.8-7.7); Neutrophils % (Auto) 60 % (37-80); Nucleated Red Blood Cell # 0.00 Thou/mm3 (0.00-0.00); Nucleated Red Blood Cell % 0 /100 WBC (0); Platelet Count 352 Thou/mm3 (140-440); RDW Standard Deviation 47.8 fL (35.1-43.9); Red Blood Count 3.15 Miln/mm3 (4.50-5.90); White Blood Count 8.2 Thou/mm3 (3.8-10.6)
[2025-05-29] MEDS: VALPROIC ACID SYRUP 250 MG/5 ML UDC GT ×3 (05:52→21:49)
[2025-05-29] MEDS: oxyCODONE HCL 5 MG IR TAB 30 MG PO ×3 (05:52→21:49)
[2025-05-29 06:09] LABS: Alanine Aminotransferase 66 U/L (10-49); Albumin, Serum 3.9 gm/dL (3.5-5.0); Albumin/Globulin Ratio 1.3 (1.2-2.2); Alkaline Phosphatase 268 U/L (46-116); Anion Gap 13 (7-16); Aspartate Amino Transferase 47 U/L (0-34); BUN/Creatinine Ratio 30 Ratio (12-20); Bilirubin,Total 0.3 mg/dL (0.3-1.2); Blood Urea Nitrogen 12 mg/dL (9-23); Calcium 9.6 mg/dL (8.3-10.6); Calcium (Corrected) 9.7 mg/dL (8.5-10.1); Carbon Dioxide 25.3 mMol/L (20.0-31.0); Chloride 101 mMol/L (98-107); Creatinine (Component) 0.4 mg/dL (0.6-1.3); Estimated Creatinine Clearance 228.4 mL/min (>60); Globulin 2.9 gm/dL (2.3-3.5); Glucose 109 mg/dL (74-106); Magnesium 1.7 mg/dL (1.6-2.6); Osmolality,Calculated 278 (275-295); Phosphorous 5.4 mg/dL (2.4-5.1); Potassium 4.2 mMol/L (3.4-5.1); Sodium 139 mMol/L (136-145); Total Protein 6.8 gm/dL (5.7-8.2); eGFR > 60 See Note
--- NOTE | 2025-05-29 08:55 | PD.RESPRO ---
Documentation for date of: 05/29/25 Subjective Subjective Interval history: 05/29/2025: Patient was seen and examined at bedside this morning. No acute overnight events. Patient did not spike any fevers overnight for this morning. Heart rate has been controlled. Most likely patient did have serotonin syndrome as fast improvement fevers, therefore we will keep micafungin only for today and will likely discontinue tomorrow morning. Still on Versed drip, will titrate down and will likely be off sedation by tomorrow. No other complaints at this time. Still retaining some urine and getting frequent bladder scans and straight in and outs successfully. It was again noted that patient's foreskin was not retractable behind the glans of the penis and therefore we will get in contact with urology tomorrow for further recommendations. 05/28/2025: Patient was seen and examined at bedside this morning. No acute events. Patient did not spike any fevers overnight and no WBC spikes. Today patient however did have a rectal temperature of 101 for which Tylenol was given. Hemoglobin dropped from 10.6-8.6 today, but previously patient was around 8. Her still tachycardic and tachypneic. Will go up on oxycodone and will discontinue fentanyl as well as guaifenesin due to possible serotonin syndrome. Started Versed drip and placed on fentanyl. Will start micafungin as patient's left ear culture did grow Meenakshi parapsilosis and could be possible source for fevers. Also ordered cyproheptadine, but unavailable in our pharmacy at this time we will administer was available likely on Friday. Will monitor for further fevers as well as ongoing tachycardia. 05/27/2025: Patient had 2 fevers overnight, up to 104. Resolved with Ibuprofen. Patient received repeat LP yesterday, initial studies unremarkable. Fentanyl titrating down. Propofol remains high, will titrate as tolerated. Changed IV medications to GT when available. Patient tolerated tracheostomy well. 05/26/2025: Patient did not spike any fevers last night. Propofol was decrease to 45, while Fentanyl was maintained at 125. Patient is receiving bladder scans every 4 hours. Most recent in and out catheter revealed 600 cc of urine. Patient will go for tracheostomy today. Neruology will repeat lumbar puncture tonight. Changes to medications: clonazepam 2mg BID to TID, oxycodone 10mg to 15mg TID to try to wean off Fentanyl. Will continue with propranolol as it appears to be working as adjunct. 05/25/2025: Overnight, patient experienced a fever spike of 101.9?F, for which Ibuprofen was administered. Propofol was increased to 50, while Fentanyl was maintained at 125. Urine output over the past 12 hours was 1500cc, with no bowel movement noted. Propranolol 10mg TID was started. Bladder scan every 4 hours to check for urinary retention, if >400cc then straight in and out catheter. Lovonex and tube feeds will be held at midnight in preparation for tomorrow's tracheostomy. Sputum culture grew 2+ yeast, speciation pending. A repeat Cocci serology test was ordered. 05/24/2025: No overnight events. Patient had consistent urine output without the need for straight catheterization. No fever spikes overnight. Remains difficult to titrate down sedatives. Oxycodone 10 mg 3 times daily via G-tube was initiated with goal reducing fentanyl drip. MRI of brain only showed chronic infections, no acute intracranial pathology to explain underlying condition. Resume meropenem due to possibility of resistant Pseudomonas causing sinusitis, will require extended course of antibiotics for completion of treatment. Spoke with family regarding tracheostomy, risks and benefits were explained, family expressed understanding and was agreeable to procedure. General surgery consulted for tracheostomy. 05/23/2025: A continuous EEG was placed at approximately 7:30 PM on 05/22. Overnight, the patient experienced two fever spikes, with a peak temperature of 101.1?F. Patient remained on Propofol 40 mcg/kg/min and Fentanyl 100 mcg/hr. Two doses of Versed were administered for agitation. Patient continues to have increased secretions.Patient had premature ventricular contractions the night before. Repeat labs showed potassium at 5.2, magnesium at 1.9, and phosphorous at 5.5 . Calcium gluconate, breathing treatment, 4 gram of magesium and sevelamer was given. EKG showed sinus tachycardia with QTc 426. Patient also developed acute urine retention, with a bladder scan showing 700 cc. A Hawkins catheter was inserted due to leakage from the previous catheter and noted post-void retention. Patient had approximately 2000 cc of urine output overnight. Since patient's output is more than his input, tube feed water flushes were increased from 45 to 55 cc. Patient had one bowel movement this morning. Hawkins was removed this morning, and straight cath in and out will continue if the patient continues to experience urinary retention. EEG was reviewed by Dr. Lang, who confirmed that there were no signs of status epilepticus or seizures. Plan to do MRI of the brain next. Increased phenobarbital and clonazepam doses. Will work on weaning down propofol as patient's triglycerides are 385. Heparin was switched to Lovenox. 05/22/2025: Overnight, the patient developed fever spikes, with the highest reaching 101?F. Cooling measures were ineffective, and Ibuprofen was administered. In response to the patient's condition, fentanyl was increased from 100 mcg to 150 mcg, and propofol was increased from 35 mcg to 40 mcg. Urine output over the past 12 hours was 1100 cc. Given the recurrence of fevers and signs of hypersympathetic activity, the phenobarbital dosage was increased to 130 mg every 6 hours, up from every 8 hours. C. diff PCR testing is pending for loose stools. The patient has been receiving Versed every 5 minutes for seizure-like activity until it resolves. The ICU team held an extensive discussion with the patient?s parents regarding the next steps, which include transferring the patient to a facility capable of continuous EEG monitoring while weaning off sedation, as the patient continues to experience persistent seizures. Last day of meropenem to complete 10 day course. 05/21/2025: Overnight, patient developed two fever spikes, with a maximum temperature of 102.6?F. Fevers were managed with Tylenol and cooling measures. Hawkins catheter was removed and replaced with a QiVi external catheter, with urine output of 1,650 cc over the past 12 hours. Propofol was increased from 30 to 35 mcg/kg/min due to agitation and the patient breathing over the ventilator, while fentanyl maintained at 150 mcg/hr. No bowel movement was reported overnight. Neurology agreed with gradual weaning of sedation as tolerated. EEG is scheduled for Friday, 05/23, and daily EEG monitoring is not required. Ear culture returned with Meenakshi, likely from normal hamilton from the ear swab. Ears were examed with otoscope. Right ear unremarkable. Left ear canal with clear liquid, like from ofloxacin ear drops. Reduced phenobarbital to 130 mg every 8 hours and clonazepam to 1mg BID. Versed 2 mg IV is available as needed for agitation. Continue meropenem. Fungal culture of ear culture grew Meenakshi, likely representing normal hamilton from the ear swab. Patient exhibited green penile discharge following hawkins removal. A chlamydia and gonorrhea test was ordered. Right arm is warm and tense to touch from IV infiltration, IV was removed and placed in distal part of the right forearm. 05/20/2025: Overnight, patient had a fever spike of 101.2F. Patient remained on Propofol 40 and Fentanyl 150 for sedation. Precedex was not needed for agitation. Urine output was 2800 cc in the past hours with no gross hematuria. No bowel movement. Patient?s phenobarbital dose was adjusted to 260 mg every 8 hours. Keppra dose was increased to 1000 mg twice daily as per the neurologist?s recommendation. An EEG revealed electrographic seizure activity. A repeat sputum culture was obtained due to contamination of the previous sample. Additionally, a gradual wean of propofol and fentanyl was initiated as tolerated. 05/19/2025: Overnight, patient had a fever spike of 102.2?F. Due to agitation, the Versed infusion was increased from 4 mg/gtt to 8mg/gtt. Patient was also receiving Propofol 30 and Fentanyl 150. Patient had one bowel movement and produced 1L of urine over the past 12 hours, with no evidence of gross hematuria. Versed 4 mg gtt was titrated up to 8mg gtt for patient's agitation. Patient was on Propofol 30 and Fentanyl 150. Patient had one bowel movement. Urine output was 1L in the past 12 hours with no gross hematuria. This morning, clonazepam 2 mg PO TID was initiated, Propofol infusion was increased to 50 mcg/kg/min, and fentanyl was maintained at 50 mcg/hr. The versed infusion was discontinued, and Meropenem was restarted to treat Pseudomonas pneumonia, since the patient continued to spike fevers despite discontinuation of the medication. Sputum culture and EEG will be repeated. Heparin was restarted for DVT PPX. 05/18/2025: Overnight, patient remained on Propofol 30 and Fentanyl 300, with Versed 2mg dose x1. Magnesium was given for bronchodilation. Ibuprofen given for fever. Plan was to wean off sedation and extubate the patient today, but due to significant oral secretions and concerns about potential aspiration and the patient's inability to protect the airway, the decision was made to keep the patient intubated for now. A spontaneous breathing trial was attempted, and the patient?s lungs are functioning well. However, given the ongoing agitation, sedation could not be reduced. Phenobarbital dose was increased from 130mg to 260mg every 6 hours, and a 4mg Versed drip was started. Olanzapine was discontinued, and both doxycycline and meropenem were stopped due to concerns of a potential drug reaction, as fever spikes worsened after the initiation of meropenem on 05/12. Heparin was restarted yesterday for a DVT in the left brachial vein but was discontinued this morning due to ongoing hematuria without clots. A follow-up Doppler will be performed in 2-3 days to assess whether the DVT has resolved. Patient?s urine output was 2240cc over the past 12 hours. Maintenance fluids were started at 100ml/hr to manage the increased urine output. ICU team spoke with the patient's mother today, providing updates on the changes in the medication regimen and the patient's current status. Informed her that this is Day 9 of intubation, and there are four more days to attempt extubation before considering a tracheostomy. TSH, EBV, and CMV panels were ordered for further evaluation. 05/17/2025: Overnight,patient was placed on droplet precautions due to positive rhinovirus and human metapneumovirus. Patient received a 4 mg dose of Versed for agitation. Heparin drip was initiated for an upper extremity DVT but was paused at 12:15 AM due to hematuria without clots. Urine output was approximately 170 cc/hr, and the patient had two bowel movements since yesterday. Today, the patient underwent bronchoscopy and tolerated the procedure well, with stable gas exchange observed. To facilitate weaning off fentanyl and propofol, the patient was started on phenobarbital 13 mg and oxycodone 10 mg scheduled TID. Will consider adding Precedex to further support the weaning process and work towards extubation tomorrow. Heparin drip for the DVT has been restarted as the hematuria is improving. Additionally, 1L of IV LR was administered to address hyperkalemia and hyperphosphatemia on AM labs. Plan is to remove the Hawkins catheter tomorrow, 05/18. 05/16/2025: Overnight, patient experienced intermittent spasmodic jerking episodes, lasting about 15-20 minutes at a time. During these episodes, the patient becomes tachycardic and febrile. Baclofen 10mg was administered, followed by a single dose of midazolam 2mg IV for agitation. Patient remains on fentanyl 100 mcg/hr and propofol 50 mcg/kg/min for sedation. Patient spiked a fever of 102.6?F, for which IV tylenol was given. A subsequent temperature of 102.4?F was treated with ibuprofen. The Hawkins catheter was replaced overnight. Urine output over the past 12 hours was approximately 850 mL. Patient has not had a bowel movement since 05/13, will add miralax. Due to persistent fevers, doxycycline 100 mg IV BID was initiated for gram-positive cocci coverage. Blood cultures will be repeated, and a right upper quadrant ultrasound has been ordered to evaluate for potential hepatobiliary source of infection. Liver enzymes are improved from yesterday. Planned Interventions: Initiate phenobarbital 130 mg IV every 6 hours and begin weaning off propofol. Increased olanzapine from 5 mg GT QHS to 5 mg TID. Perform bilateral upper extremity ultrasound to assess for DVT. Repeat UA, CXR, CT head and abd/pelvis. Check lipase levels. 05/15/2025: Overnight, the patient developed a fever of 101.8?F. PO acetaminophen was switched to IV formulation by the night team. Temperature improved to 99.5?F by morning. Urine output over the past 12 hours was approximately 620 cc. Liver enzymes continue to trend upward, will hold acetaminophen for now. Patient was weaned off midazolam infusion today. Plan is to begin tapering propofol next. Antipsychotic regimen was adjusted from quetiapine to olanzapine to minimize risk of QTc prolongation. Repeat chest X-ray showed improvement in bilateral pneumonia. Bronchoscopy was performed yesterday (05/14). Repeat procedure is being considered for 05/16. Increase in WBCs and fever likely from bronchoscopy. 05/14/2025: No acute events overnight. Stable on versed/ fentanyl and propofol. No vasopressor requirements. Patient underwent bronchoscopy, well tolerated. Gas exchange stable. PPeak remains in mid20s. Patient on minimal FiO2 and PEEP now. Good ventilator synchrony. Continues to have heavy drooling and output form upper airway. Minimal from ETT now. 05/13/2025: Patient increased FiO2 overnight to 100%. Difficulty managing secretions. Bleeding from nose and plugging. Agitated with maximal dose of precedex and benadryl pushes. Patient with low grade temp to 100.4F. Mild secretions from ETT, pink/ frothy. 05/12/2025: Patient weaned down on sedation. Tmax 102 degrees at 1600 hrs. 05/11. Patient developed mild hepatitis, likely response to medications, will monitor. Patient successfully weaned off of propofol and fentanyl, Precedex initiated. Patient extubated, placed on high flow. Continues to have high secretions, treated with chest PT, oral suctioning as needed, ipratropium breathing treatments scheduled. Patient notably agitated, treating with Benadryl as needed and Precedex drip. Will continue to try and decrease sedation while maintaining patent airway. Sputum culture grew thurman resistant Pseudomonas, meropenem initiated. Will continue Levaquin for now pending cultures. Ear cultures taken. Patient maintaining good urine output, will replete volume if patient exceeds greater than 2 L output. 05/11/2025: Overnight, the patient became increasingly agitated and was observed biting on the endotracheal tube. In response, propofol was increased from 40 mcg/kg/min to 45 mcg/kg/min, and fentanyl was increased from 200 mcg/hr to 250 mcg/hr. The plan is to attempt weaning the patient off sedation today, and work towards extubation. A lumbar puncture was performed, which showed 3 WBCs. Infection from meningitis is less likely, but culture results are pending for confirmation. Today, the patient has been experiencing a low-grade fever, with the highest recorded temperature being 100.4?F. After the Hawkins catheter was placed, the patient had 1700 cc of urine output over the past 12 hours. Followed up with Dr. Jacky Cuadra (ENT in [place]). Dr. Cuadra stated that there is nothing additional he could identify on the CT imaging that the radiologist has not already seen. And that if there was something it would likely be surgical and he does not perform surgeries. He recommended covering for Pseudomonas with clindamycin and Unasyn. The plan is to start levofloxacin for Pseudomonas coverage as well. Additionally, Dr. Cuadra suggested culturing the ear. 05/10/2025: Patient remained sedated with propofol and fentanyl throughout the night, maintaining adequate sedation levels. Around 2 AM, the propofol dose was reduced due to MAP in the 60s. 1L of LR was administered on top of the ongoing IV maintenance fluids at 100cc/hr. Following this, the MAP remained stable above 65. At 6:50 PM on 05/09, an ABG revealed a pH of 7.28, pCO2 of 55, and pO2 of 70, indicative of respiratory acidosis. Patient was given 5 grams of magnesium and 15 mg of albuterol over the course of an hour to promote bronchodilation. Magnesium also needed to be repleted. A repeat ABG showed normalization of the respiratory parameters. Patient's Hawkins catheter was removed and replaced with a QiVi catheter overnight per the patient's father?s request. However, the patient developed urinary retention. A bladder scan performed at 6 AM showed 295cc of retained urine, and a subsequent scan in the afternoon revealed 439cc. Primary team consulted ICU team. On 05/09, two rapid responses were initiated due to the patient?s escalating agitation and anxiety. Patient appeared to be in significant pain from his paraphimosis. The primary team consulted the ICU for further management, as the patient had already received diazepam, haldol, versed, and dilaudid earlier that morning, with inadequate relief. Additionally, there was concern over a decline in his pO2 levels. The initial ABG at 11:56 showed: pH 7.40, pCO2 40, pO2 131, HCO3 25. A repeat ABG at 13:40 revealed: pH 7.27, pCO2 43, pO2 53, HCO3 20. Upon evaluation by the ICU team, the patient was noted to be extremely agitated and wearing an oxygen mask, with audible gurgling sounds coming from the upper airway, raising concern for potential airway compromise. Given the risk of inadequate airway protection, the decision was made to transfer the patient to the ICU for intubation and further management. In the ICU, the patient was intubated. Urology, Dr. Vargas, was consulted earlier in the day. He was able to successfully perform a reduction of the paraphimosis. Telemetry Course: Patient was admitted to telemetry for further workup and management of sepsis of unknown source, with concern for meningitis. Empiric broad-spectrum antibiotic and antiviral therapy were started, consisting of ceftriaxone 2g IV twice daily, vancomycin (pharmacy to dose), ampicillin, and acyclovir. Neurology was consulted. CT of the orbit, sella, and inner ear was ordered given the patient?s history of acute mastoiditis, which showed severe bilateral chronic mastoiditis, bilateral otitis externa, bilateral otitis media, and bilateral cholesteatomas in the attics. CT head was also performed and was negative for acute hemorrhage, mass effect, or midline shift. Findings included prominent sphenoid, ethmoid, and maxillary antral sinusitis, bilateral chronic mastoiditis, bilateral otitis media, and opacification in the bilateral attics. For the patient?s seizures, his home medications of valproic acid and levetiracetam were restarted. Orders for midazolam and Haldol were placed as needed for breakthrough seizures and agitation. An ice pack was ordered for his paraphimosis. Infectious disease was also consulted. History of Present Illness: 24-year-old male with a past medical history significant for cerebral palsy, asthma, seizure disorder, chronic mastoiditis (previously treated with tympanostomy tube placement for recurrent otitis media, now removed), recurrent pneumonia, and chronic PEG tube dependence, presented to the ED on 05/08/2025 with a fever lasting over 24 hours. The patient also had a witnessed seizure episode lasting 5-10 seconds, characterized by tonic-clonic activity confined to the left side of the body. ED Course: -Initial vitals were: BP 122/84, HR 176, RR 26, T 105F, O2 sat 96% on room air. -Labs significant for: CBC showed a WBC of 16.3. CMP showed Na 148, K 5.2, Cl 107, bicarbonate 18.7, anion gap 22, creatinine 1.3 (baseline 0.7), lactic acid 3.2, alkaline phosphatase 120, LDH 352, total CK 1048, procalcitonin: 0.14. Urinalysis negative. Influenza A/B testing was negative. -Imaging included: EKG showed supraventricular tachycardia of HR [address] and T-wave abnormality. CXR showed no aspiration pneumonia but was noted to be of poor inspiratory effort. CT CAP w/o contrast seemed to show no gross infiltrates or other notable findings but was noted to be severely degraded by patient motion. -In the ED, patient was given acetaminophen 975 mg, ceftriaxone 1 gram IV, midazolam 2 mg IV x1, albuterol 2.5 mg, Zosyn 3.375 gram, 2 L NS fluid infusion, and 1 L LR fluid infusion. In the ED, the patient was agitated and pulled out his IV. Attempts at peripheral access were unsuccessful, and a right femoral central line was placed. Exam Vital Signs Temp Pulse Resp BP Pulse Ox O2 Del Method O2 Flow Rate 98.9 F 132 H 35 H 159/100 H 100 Mechanical Ventilation 35 05/29/25 04:00 05/29/25 06:00 05/29/25 06:00 05/29/25 06:00 05/29/25 06:00 05/29/25 06:00 05/16/25 12:00 FiO2 30 05/29/25 06:00 Narrative Exam Gen: sedated and trached, nonverbal at baseline, not in acute distress. HEENT: NCAT, EOMI, Pupils reactive KARLO, not icteric, Bilateral inferior eye scleral hemorrhage. External ears normal. No rhinorrhea. Moist mucous membranes. Neck: Supple, full range of motion, no observable masses, No meningeal sign. Lungs: No Respiratory distress, Coarse breath sounds bilateral. CV: RRR, no murmurs. Abdomen: Soft, nondistended, No rebound tenderness, PEG tube in place. MSK: No lower extremity edema no redness, peripheral pulses presents, Contracted and swollen hands. Skin: No rashes, petechiae, lesions. : Foreskin unretractable, no discharge appreciated Neuro: Unable to assess due to patient's medical condition, pupils reactive Objective Labs 05/30/25 04:37 05/30/25 04:37 Labs: Laboratory Results - last 24 hr 05/29/25 04:43 WBC 8.2 RBC 3.15 L Hgb 8.7 L Hct 27.1 L MCV 86 MCH 27.6 MCHC 32.1 RDW Std Deviation 47.8 H Plt Count 352 D Neut % (Auto) 60 Lymph % (Auto) 19 Toole % (Auto) 14 H Eos % (Auto) 5 Baso % (Auto) 1 Neut # (Auto) 4.9 Lymph # (Auto) 1.5 Toole # (Auto) 1.2 H Eos # (Auto) 0.4 Baso # (Auto) 0.1 Immature Gran # (Auto) 0.11 H Absolute Nucleated RBC 0.00 Immature Gran % 1 H Nucleated RBC % 0 Sodium 139 Potassium 4.2 Chloride 101 Carbon Dioxide 25.3 Anion Gap 13 BUN 12 Creatinine 0.4 L Estim Creat Clear Calc 228.4 eGFR > 60 BUN/Creatinine Ratio 30 H Glucose 109 H Calculated Osmolality 278 Calcium 9.6 Corrected Calcium 9.7 Phosphorus 5.4 H Magnesium 1.7 Total Bilirubin 0.3 AST 47 H ALT 66 H Alkaline Phosphatase 268 H D Total Protein 6.8 Albumin 3.9 Globulin 2.9 Albumin/Globulin Ratio 1.3 ABG Interpretation ABG results: 05/09/25 05/09/25 05/09/25 11:56 13:40 18:50 ABG pH 7.40 7.27 L D 7.28 L ABG pCO2 40 43 55 H D ABG pO2 131 H 53 L* D 70 L ABG HCO3 25 20 26 ABG O2 Saturation 99 H 81 L 92 ABG Base Excess 0 -7 L -2 05/10/25 05/11/25 05/12/25 00:14 05:06 01:18 ABG pH 7.35 7.33 L 7.39 ABG pCO2 42 D 54 H D 48 ABG pO2 103 D 93 94 ABG HCO3 23 28 H 29 H ABG O2 Saturation 99 H 98 98 ABG Base Excess -3 2 3 05/12/25 05/12/25 05/13/25 03:58 11:50 05:10 ABG pH 7.46 H 7.39 7.19 L* D ABG pCO2 41 48 60 H D ABG pO2 105 58 L* D 114 H D ABG HCO3 29 H 29 H 23 ABG O2 Saturation 99 H 90 L 98 ABG Base Excess 5 H 4 H -6 L 05/17/25 05/18/25 05/19/25 01:30 04:09 04:43 ABG pH 7.38 7.43 7.47 H ABG pCO2 46 44 43 ABG pO2 90 83 80 L ABG HCO3 27 H 29 H 31 H ABG O2 Saturation 98 97 97 ABG Base Excess 2 5 H 7 H 05/21/25 05/21/25 04:18 06:33 ABG pH 7.37 D 7.46 H ABG pCO2 50 H 38 D ABG pO2 40 L* D 121 H D ABG HCO3 29 H 27 H ABG O2 Saturation 66 L 100 H ABG Base Excess 3 3 Quality Measures Quality Measures VTE prophylaxis (SCDs) and sepsis Current suspected stage: ruled out Possible source: pulmonary Blood cultures ordered: yes Antibiotic ordered: Yes Assessment & Plan Assessment Current Active Medications: Generic Name Dose Route Start Last Admin Trade Name Freq PRN Reason Stop Dose Admin Acetaminophen 650 mg 05/28/25 10:36 Acetaminophen Racquel 325 Mg/10 Ml Udc NG 06/27/25 10:35 Q4HR PRN fever >100.4 Albuterol/Ipratropium 3 ml 05/09/25 18:19 05/28/25 06:34 Albuterol/Ipratropium (Duoneb) Rt Racquel 3 Ml Nebu INH 06/08/25 18:18 3 ml Q2HR PRN Administration SHORTNESS OF BREATH OR WHEEZE Calcium Carbonate 600 mg 05/20/25 18:20 05/28/25 08:05 Calcium Carbonate 600 Mg Tablet GT 06/19/25 18:19 600 mg QDAY KYA Administration Clonazepam 2 mg 05/26/25 14:00 05/29/25 05:52 Clonazepam 0.5 Mg Tablet PO 05/31/25 13:59 2 mg TID KYA Administration Cyproheptadine HCl 2 mg 05/30/25 09:00 Cyproheptadine Hcl 4 Mg Tablet PO 06/29/25 08:59 Q2H KYA Enoxaparin Sodium 40 mg 05/23/25 11:15 05/28/25 08:05 Enoxaparin Sod Inj 40 Mg/0.4 Ml Syringe SC 06/06/25 11:14 40 mg QDAY KYA Administration Midazolam HCl 100 mg in 100 mls @ 1 mls/hr 05/28/25 10:44 05/29/25 07:00 Versed Pf Inj In Ns Premix IV 06/02/25 10:43 1 mg/hr .Q24H PRN 1 mls/hr PER PROTOCOL Titration Protocol 1 MG/HR Micafungin Sodium 100 mg/ 100 mls @ 100 mls/hr 05/28/25 12:04 05/28/25 13:42 Sodium Chloride IV 06/12/25 12:03 Infused QDAY KYA Infusion Lansoprazole 30 mg 05/28/25 09:00 05/28/25 08:05 Lansoprazole 30 Mg Tab.Rap. GT 06/27/25 08:59 30 mg QDAY KYA Administration Levetiracetam 1,000 mg 05/27/25 21:00 05/28/25 21:10 Levetiracetam Liqd 500 Mg/5 Ml Udc GT 06/26/25 20:59 1,000 mg BID KYA Administration Ofloxacin 5 drop 05/21/25 14:45 05/28/25 21:13 Ofloxacin Op Racquel 0.3% 5 Ml Btl BOTH EARS 05/31/25 14:44 1 drops BID KYA Administration Ondansetron HCl 4 mg 05/27/25 14:37 Ondansetron Odt 4 Mg Tabrap GT 06/26/25 14:36 Q6HR PRN NAUSEA OR VOMITING Protocol Oxycodone HCl 30 mg 05/28/25 14:00 05/29/25 05:52 Oxycodone Hcl 5 Mg Ir Tab PO 06/02/25 13:59 30 mg TID KYA Administration Phenobarbital 259.2 mg 05/28/25 07:15 05/29/25 05:52 Phenobarbital 32.4 Mg Tablet GT 06/11/25 07:14 259.2 mg Q6HR KYA Administration Polyethylene Glycol 17 gm 05/16/25 09:15 05/28/25 08:05 Polyethylene Glycol 17 Gm Packet PO 06/15/25 09:14 17 gm QDAY KYA Administration Sevelamer Carbonate 0.8 gm 05/27/25 08:00 05/28/25 17:35 Sevelamer Carbonate 0.8 Gm Packet (Non-Formulary) GT 06/26/25 07:59 0.8 gm TIDWM KYA Administration Sodium Chloride 3 ml 05/17/25 11:43 Sodium Chloride Rt Racquel 0.9% 3 Ml Nebu INH 06/16/25 11:42 PRN PRN SOLN Valproic Acid 250 mg 05/27/25 18:00 05/29/25 05:52 Valproic Acid Syrup 250 Mg/5 Ml Udc GT 06/26/25 17:59 250 mg Q8HR KYA Administration Plan 24-year-old male with cerebral palsy, asthma, seizure disorder, chronic mastoiditis, recurrent pneumonia, and chronic PEG tube dependence presented with fever and seizure, was admitted for sepsis workup, and later transferred to the ICU for intubation due to concerns about airway protection. Neurology #Agitated delerium #Serotonin Syndrome? Patient was extremely agitated before ICU admission, likely due to pain from paraphimosis. Patient initially sedated with propofol and fentanyl, titrated to Precedex with Benadryl before extubation. Patient failed extubation and was intubated on 05/12. Propofol and fentanyl was restarted. Still spiking fevers and tachycardic, possible serotonin syndrome Diagnostic Test: - EEG did not show seizure activity per neurology. - MRI brain 05/23: showed chronic infections, no acute pathology. Treatment Plan: - Phenobarbital 260 mg Q6H, will start weaning down tomorrow. - Clonazepam 2 mg TID. - Continue Oxycodone to 30 mg TID. - Continue to wean off Versed drip - Neurology consulted, appreciate recommendations. #History of seizures #Cerebral palsy Diagnosis: - Temperature of 105F on admission. - EEG 05/11 unremarkable - Repeat EEG 05/20: electrographic seizure activity. - Persistent fever spikes. - Continuous EEG 05/22-05/23: no seizure activity or status epilepticus. Treatment Plan: - Levetiracetam 1000 mg BID. - Valproic acid 187.5 mg Q6H. - Adjust seizure medications if breakthrough seizures recur - Seizure precautions. - Aspiration precautions. -Neurology on board, appreciate recs Cardiovascular #Sinus tachycardia (improving) DDx: fevers vs hypersympathetic activity. Diagnostic Test: - Fever spikes associated with tachycardia, tachypnea Treatment Plan: - Stopped medication that could cause serotonin syndrome - No specific treatment required at this time. Infectious disease workup remains unrevealing. Unsure of the cause of fever spikes which are associated with tachycardia and tachypnea. - Continue close cardiac monitoring. - Monitor electrolytes and replete as needed. - Maintain Mg > 2 and K > 4 to reduce arrhythmia risk. Respiratory #Failed extubation 05/12 #Acute hypoxic respiratory failure s/p tracheostomy Diagnostic Test: - CXR 05/11: Mild bilateral perihilar pneumonia. To assess for ventilator associated pneumonia. Not much change from 05/09 CXR. - Resistant Pseudomonas from ETT secretions previously (05/09). - CXR 05/19: Significant bilateral pneumonia. Repeat Cocci serology test was negative - 05/20 sputum culture grew meenakshi Treatment Review (completed): - Patient extubated to [facility] 05/12, chest film with centro-bronchovascular congestion and multifocal pneumonia. - Reintubated overnight 05/13- VC/AC PPeak 20 PEEP 5 FiO2 40%. - Patient underwent bronchoscopy on 05/14 and 05/17 for secretions, well tolerated. - Patient underwent tracheostomy on 05/26/2025 - Meropenem (05/12-05/17, 05/19-05/22, for a total of ten days). Treatment Plan: - Continue micafungin 100mg qday 05/28-05/30 - Chest physiotherapy PRN. #Bronchospasm #History of asthma Diagnostic Test: - Although the patient has a history of asthma, the bronchospasm is most likely from the irritant effect of blood in the airway. A small amount of blood, which was likely from dryness of the nasal mucosa, was suctioned out during intubation. Treatment Plan: - Magnesium for bronchodilator effect as needed. - Albuterol and Ipratropium as needed. GI, , F/E/N #Chronic PEG tube dependence Treatment Plan: - Jevity 1.5 at 40 ml/hr x 24 hrs via PEG tube by pump (goal). If no IV fluids, water flushes of 55 ml/hr. - ProStat 30ml BID via PEG tube. - Appreciate shuttle veneering supervisor recommendations. - Triglyceride level 05/14 - 290; 05/17 - 312; 05/20 - 221; 05/26 - 275. #Hepatitis (improving) Likely due to meropenem or tylenol that could potentially cause hepatotoxicity. Diagnostic Test: - Gallbladder ultrasound 05/16: Normal gallbladder, no gallstones. Fatty infiltration throughout the liver. - Lipase 05/16: 41 wnl. Treatment Plan: - Continue daily LFTs. - Will reassess if transaminases continue to rise or clinical status changes. #Acute urinary retention (resolved) Treatment Plan - Monitor urine output, replace fluid if needed. - Hawkins removed 05/23 - Every 4 hour bladder scan and straight cath as needed for >400cc. #Hypoalbuminemia (resolved) Likely due to acute hepatitis Diagnostic Test: - UA had urine proteins 1+. - Albumin 4.9 -->3.3 -->2.8 --> 3.2 --> 3.4 --> 2.8 --> 2.5---> 4--->3.9. Treatment Plan: - Maintain on PEG tube feeds per shuttle veneering supervisor recommendations. #Paraphimosis (resolved) #Balanitis (resolved) #Phimosis Diagnostic Test: - Edema and tenderness of the glans penis. - Swelling of the distal retracted foreskin. - Constricting band of tissue proximal to the head of the penis at the coronal sulcus. - Hawkins was removed on 05/09 and transitioned to Oivi external urinary catheter. Discussed with family about the need to reinsert hawkins due to the patient's acute urinary retention. Family were in agreement with this plan. Hawkins was reinserted on 05/10 due to urinary retention. Hawkins changed and replaced on 05/16. - S/p reduction of the paraphimosis by Dr. Vargas on 05/09. - 05/29/2025 Patient noticed to have unretractable foreskin Treatment Plan: - Will get urology again Friday - Control patient's pain with sedation. - Monitor urine output. Renal #Hyperkalemia (resolved) #Hyperphosphatemia (downtrending) DDx: acute kidney injury vs hemolysis vs rhabdomyolysis. Treatment Plan: - Monitor BMP and phosphorus. - Monitor potassium levels to avoid arrhythmias. - Sevelamer 800 milligram GT 3 times daily, will adjust if needed. #Acute kidney injury (resolved) DDx: dehydration or vasodilation from sepsis. Diagnositc Test: - Creatinine 0.5 Treatment Plan: - Continue with free water flushes. - Daily renal panel to trend BUN, Cr, and electrolytes. - Avoid nephrotoxins. - Renally dose meds as appropriate. - Strict I&Os, monitor urine output closely. - Monitor for signs of volume overload or uremic symptoms. #Anion Gap Metabolic Acidosis (resolved) #Lactic acidosis (resolved) DDx: seizures vs sepsis vs acute kidney injury vs hypoperfusion. Likely from seizures as patient has no signs of systemic hypoperfusion such as skin mottling, decreased cap refills. Diagnostic Test: - Admission anion gap 22, lactic acid 16.0, bicarbonate 18.7. #Rhabdomyolysis (resolved) DDx: seizures vs hyperthermia vs infectious myositis. Diagnostic Test: - CK 1048 --> 3743 --> 1654 --> 338 --> 363. - Witnessed seizure episode lasting 5-10 seconds, characterized by tonic-clonic activity prior to admission. Treatment Plan: - Continue free water flushes at 35 cc/hr. - Monitor urine output. - Correct electrolyte abnormalities. - Control seizures with valproic acid and levetiracetam. - Monitor renal panel. Heme #Acute nonocclusive thrombus in the left brachial vein Diagnostic Test: - Venous doppler study of upper extremities 05/16: Normal right upper extremity deep venous system. Positive for nonocclusive thrombus in the left brachial vein. - Per chart review and patient's parents, patient does not have history of clots. Treatment Review (completed): - Lovenox 30 mg (05-11 - 05/15). - Lovenox 40 mg (05/16). - Heparin loading dose and ggt. Lovenox to heparin due to heparin?s shorter half-life, which allows for more rapid cessation in the event of bleeding, a shorter half life and can be stopped if bleeding occurs. - Stopped heparin ggt due to hematuria on 05/18. Treatment Plan: - Lovenox 40 mg SC QD. - Primary upper extremity deep vein thrombosis, anticoagulation should be continued for a minimum of three months following the initial thrombotic event. #Normocytic Anemia DDx: Anemia of Inflammation vs dilutional anemia vs drug-induced anemia. Likely dilutional anemia since patient had normal hemoglobin on admission and from IV fluids per sepsis protocol. No signs of bleeding. Treatment Plan: - Monitor H&H. - Type and screen. - Transfusing for Hgb <7 or symptomatic. #Thrombocytosis (Resolved) DDx: infection vs reactive Diagnostic Test: - Plt 711---> 352 Treatment Plan: - Monitor CMP. #Leukocytosis (resolved) DDx: likely due to bronchoscopy vs infection of unknown source vs drug induced Diagnostic Test: - Fever free overnight and AM -WBC 8.2 today Treatment Plan: - Treat underlying cause. #Thrombocytopenia (resolved) DDx: Dilutional versus consumption versus increased destruction due to sepsis. Initial decrease is likely due to dilutional in setting of IV fluids, however his WBC and hemoglobin have leveled off platelets have down trended. Diagnostic test: - Platelets: 209 --> 65-->141-->460. Treatment plan: - Monitor daily labs - Avoid excessive oral tracheal suctioning in setting of previous bleed and thrombocytopenia. Endo #no active problems ID #Sepsis #Bilateral chronic mastoiditis #Sinusitis #Bilateral otitis media #Bilateral otitis externa #Meenakshi parapsilosis DDx: meningitis vs acute on chronic mastoiditis vs acute febrile illness. Diagnostic Test: - History of chronic mastoiditis. - Met SIRS criteria on admission: T 105F, HR 176, RR 26, PaCO2 26, WBC 16.3. - 05/08 CT Head: prominent sphenoid ethmoid maxillary antral sinusitis, bilateral chronic mastoiditis, bilateral otitis media. - 05/08 CT Orbit Sella Inner: severe bilateral chronic mastoiditis, bilateral otitis externa and otitis media, bilateral cholesteatomas in the attics. - 05/09 Sputum culture: 1+ thurman resistance Pseudomonas. - 05/10 Lumbar puncture: clear, WBC 3, glucose 70, total protein 25. CSF testing negative. - 05/10 Respiratory viral panel: rhinovirus/enterovirus and human metapneumovirus detected. - 05/12 Bilateral ear culture: E coli ESBL. - UA 05/08 and 05/16 negative. - Blood culture 05/08, 05/11, and 05/16 negative. - 05/16 CXR: worsening diffuse severe left lung pneumonia. - Meenakshi parapsilosis in L ear culture Treatment Review (completed) - Rocephin 2 gm IV q12HR [05/08-05/11]. - Vancomycin dosed by pharmacy [05/08-05/11] since MRSA screen is negative. - Acyclovir 700 mg IV [05/08-05/11] since LP negative. - Fluids: 30mL/kg -- 2 L NS fluid infusion and 1 L LR fluid infusion was given in the ED. - Femoral central line removed 05/11, replaced with peripheral access. - A repeat Cocci serology test was negative Treatment Plan: - Topical oxofloxacin. - Micafungin 100mg qday 05/28-05/30 Integumentary #Maculopapular rash to the buttocks DDx: contact dermatitis vs allergic dermatitis Treatment Plan - Patient no longer has diaper on. Anticipate rash to improve. Health Maintenance DVT prophylaxis: SCDs, Levonox 40mg QD GI prophylaxis: Protonix IV Diet: Jevity Hawkins: none. Straight cath in/out q4h if urine retention more than 400 ml Lines: Peripherals, PEG tube. Drips: Versed Code status: Full code Case disclosed with Attending Dr. Marcello Easton PGY2 Disclaimer: Even though this this note was dictated by speech recognition and even though it was carefully revised there may still be minor errors in recycling assistant due to voice recognition software. Attending Provider Attestation/Addendum Patient seen and examined with the above resident, Alexandr Easton MD. I agree with the findings, assessment, and plan of care as document except for any differences below. Patient has successfully defervesced previous 24 hours with discontinuation of guaifenesin and fentanyl as likely etiology of serotonin syndrome. Have begun to remove sedation with plan to wean off of Versed in the next 24 hours. Combination therapy with phenobarbital, oxycodone, Klonopin will be used in the coming days. This will be to ensure adequate suppression of underlying seizure activity. Patient remains on antiepileptics at the discretion of neurology, much appreciated. Last EEG without any definitive evidence of ongoing seizures. Additionally, patient was started on micafungin in the previous 24 hours. However, he continues to have less suspicion that this is the etiology. Cyproheptadine was ordered but is not readily available at our hospital and we will not wait for this as definitive therapy for serotonin syndrome is removal of offending agents. Review of chart shows previously that guaifenesin and sertraline were used and had similar effect with presence of fever of unknown etiology which did resolve after discontinuation. Nonetheless, patient does have presence of Meenakshi including prophylaxis, though I suspect this is secondary to recurrent rounds of aggressive antibacterial coverage. Negative procalcitonin is the most reassuring pointing against significant fungal infection though we will continue short course for now until definitive COVID is in the lack of fungal etiology. Patient also had upper extremity DVT for which she is being anticoagulated as a potential other etiology for fever. All extraneous lines and potential sources of healthcare associated infections have probably been removed by the ICU team in the previous weeks. Patient has not had family at bedside to update on plan of care. Remains stable on mechanical ventilation. Continues to have adequate urine output and stooling. He is tolerating tube feeds well. Will start to be on patient to be transition from acute care to long-term therapy. However, I remain hesitant to fully wake him up at this point without a mature ostomy given the risk of him removing his tracheostomy by accident given his psychomotor agitation secondary to underlying cerebral palsy. Will cautiously remove the above agents to allow for more gradual improvement. Total critical care time: I personally spent 40 minutes for review of physiologic parameters, directing plan of care throughout the day, and coordination of care with other subspecialties. This is exclusive of time spent teaching housestaff or performing any separately billable procedures. Patient remains at significant risk for further morbidity and mortality warranting close monitoring care only available in the ICU. Critical care services required for acute hypoxic respiratory failure, acute metabolic encephalopathy, serotonin syndrome, fungal otitis externa/mastoiditis, upper extremity DVT.
[2025-05-29] MEDS: OFLOXACIN OP SOL 0.3% 5 ML BTL 5 DROP BOTH EARS ×2 (09:00→21:51)
[2025-05-29] MEDS: SEVELAMER CARBONATE 0.8 GM PACKET (NON-FORMULARY) GT ×3 (09:00→17:06)
[2025-05-29] MEDS: ENOXAPARIN SOD INJ 40 MG/0.4 ML SYRINGE SC (09:00)
[2025-05-29] MEDS: levETIRAcetam LIQD 500 MG/5 ML UDC 1000 MG GT ×2 (09:00→21:49)
[2025-05-29] MEDS: CALCIUM CARBONATE 600 MG TABLET GT (09:00)
[2025-05-29] MEDS: POLYETHYLENE GLYCOL 17 GM PACKET PO (09:00)
[2025-05-29] MEDS: MICAFUNGIN SODIUM INJ 100 MG in SODIUM CHLORIDE 0.9% 100 ML IV (09:02)
[2025-05-29] MEDS: LANSOPRAZOLE 30 MG TAB.RAP.DR GT (09:03)
--- NOTE | 2025-05-29 10:48 | PC.SS ---
SS update: on mechanical ventilation.
[2025-05-29] MEDS: Magnesium Sulfate 2 GM Ivpb 2 GM/50 ML BAG IV (11:51)
--- NOTE | 2025-05-29 23:59 | PD.VPROG1 ---
Telemedicine visit statement This visit was conducted with the use of interactive audio and video telecommunications system that permits real time communication between the patient and the provider. Patient's verbal consent for virtual visit was obtained on 05/29/25 at 2359. Documentation for date of: 05/29/25 Subjective Subjective Interval history: Patient is in ICU, continue to remain trached and on [facility] ventilatory support. Still on sedation. No more fever spikes. Virtual exam Vital Signs Temp Pulse Resp BP Pulse Ox O2 Del Method O2 Flow Rate 99.1 F 117 H 23 H 123/65 99 Mechanical Ventilation 35 05/29/25 20:00 05/29/25 23:00 05/29/25 18:49 05/29/25 23:00 05/29/25 23:00 05/29/25 13:00 05/16/25 12:00 FiO2 30 05/29/25 22:17 Objective Labs 05/29/25 04:43 05/29/25 04:43 Labs: Laboratory Results - last 24 hr 05/29/25 04:43 WBC 8.2 RBC 3.15 L Hgb 8.7 L Hct 27.1 L MCV 86 MCH 27.6 MCHC 32.1 RDW Std Deviation 47.8 H Plt Count 352 D Neut % (Auto) 60 Lymph % (Auto) 19 [place] % (Auto) 14 H Eos % (Auto) 5 Baso % (Auto) 1 Neut # (Auto) 4.9 Lymph # (Auto) 1.5 [place] # (Auto) 1.2 H Eos # (Auto) 0.4 Baso # (Auto) 0.1 Immature Gran # (Auto) 0.11 H Absolute Nucleated RBC 0.00 Immature Gran % 1 H Nucleated RBC % 0 Sodium 139 Potassium 4.2 Chloride 101 Carbon Dioxide 25.3 Anion Gap 13 BUN 12 Creatinine 0.4 L Estim Creat Clear Calc 228.4 eGFR > 60 BUN/Creatinine Ratio 30 H Glucose 109 H Calculated Osmolality 278 Calcium 9.6 Corrected Calcium 9.7 Phosphorus 5.4 H Magnesium 1.7 Total Bilirubin 0.3 AST 47 H ALT 66 H Alkaline Phosphatase 268 H D Total Protein 6.8 Albumin 3.9 Globulin 2.9 Albumin/Globulin Ratio 1.3 ABG Interpretation ABG results: 05/09/25 05/09/25 05/09/25 11:56 13:40 18:50 ABG pH 7.40 7.27 L D 7.28 L ABG pCO2 40 43 55 H D ABG pO2 131 H 53 L* D 70 L ABG HCO3 25 20 26 ABG O2 Saturation 99 H 81 L 92 ABG Base Excess 0 -7 L -2 05/10/25 05/11/25 05/12/25 00:14 05:06 01:18 ABG pH 7.35 7.33 L 7.39 ABG pCO2 42 D 54 H D 48 ABG pO2 103 D 93 94 ABG HCO3 23 28 H 29 H ABG O2 Saturation 99 H 98 98 ABG Base Excess -3 2 3 05/12/25 05/12/25 05/13/25 03:58 11:50 05:10 ABG pH 7.46 H 7.39 7.19 L* D ABG pCO2 41 48 60 H D ABG pO2 105 58 L* D 114 H D ABG HCO3 29 H 29 H 23 ABG O2 Saturation 99 H 90 L 98 ABG Base Excess 5 H 4 H -6 L 05/17/25 05/18/25 05/19/25 01:30 04:09 04:43 ABG pH 7.38 7.43 7.47 H ABG pCO2 46 44 43 ABG pO2 90 83 80 L ABG HCO3 27 H 29 H 31 H ABG O2 Saturation 98 97 97 ABG Base Excess 2 5 H 7 H 05/21/25 05/21/25 04:18 06:33 ABG pH 7.37 D 7.46 H ABG pCO2 50 H 38 D ABG pO2 40 L* D 121 H D ABG HCO3 29 H 27 H ABG O2 Saturation 66 L 100 H ABG Base Excess 3 3 Assessment & Plan Assessment David Baltazar is 24 yr male with PMH of chronic mastoiditis (previously had tympanostomy tube placed for recurrent otitis media, now removed), seizure disorder, recurrent pneumonia, cerebral palsy, chronic PEG tube, and asthma who was brought into ED on 05/08/25 for ongoing fever of over 24 hours and reported episode of witnessed seizure by ED. Patient was septic. Neurology was consulted to for LP to rule out meningitis. #Mastoiditis #ruled out Meningitis #Hx seizures #Cerebral palsy On admission he was noted to have fever of 105, leukocytosis 16, tachycardia 176, and tachypnic 26. CT orbit sella showed b/L otitis externa and media. Reduced mastoid aeration on the left, b/L chlestatomas. He was started on vancomycin, ceftriaxone 2g BID, ampicillin 2g q4hr, and acyclovir. EEG was negative for seizure activity. LP culture was negative -continue Keppra and Depakote per G-tube -seizure precautions -midazolam for breakthrough seizure. recommend to consider coming off of phenobarbital, Will go down on the Keppra to 750 twice daily as the last EEG did not show any electrographic seizures #Paraphimosis #Normocytic Anemia Primary care team to manage above conditions and ongoing care needs.
[2025-05-30] VITALS (30 sets, daily range): BP systolic 111–148; BP diastolic 60–91; PULSE 100–140; RESP 15–32; TEMP 36.9–37.5; O2SAT 94–100; BMI 30.2
[2025-05-30] MEDS: VALPROIC ACID SYRUP 250 MG/5 ML UDC GT ×3 (05:32→21:24)
[2025-05-30] MEDS: oxyCODONE HCL 5 MG IR TAB 30 MG PO ×3 (05:33→21:28)
[2025-05-30 05:39] LABS: Basophils # (Auto) 0.1 Thou/mm3 (0.0-0.2); Basophils % (Auto) 1 % (0-2.5); Eosinophils # (Auto) 0.7 Thou/mm3 (0.0-0.5); Eosinophils % (Auto) 7 % (0-10); Hematocrit 27.2 % (41.0-53.0); Immature Granulocytes Auto 0.12 Thou/mm3 (0.00-0.00); Lymphocytes # (Auto) 1.9 Thou/mm3 (1.0-4.8); Lymphocytes % (Auto) 20 % (10-50); Mean Corpuscular HGB Conc 32.0 g/dl (31.0-37.0); Mean Corpuscular Hemoglobin 27.8 pg (25.0-35.0); Mean Corpuscular Volume 87 fL (80-100); Monocytes # (Auto) 1.2 Thou/mm3 (0.0-0.8); Monocytes % (Auto) 12 % (0-12); Neutrophils # (Auto) 5.9 Thou/mm3 (1.8-7.7); Neutrophils % (Auto) 60 % (37-80); Nucleated Red Blood Cell # 0.00 Thou/mm3 (0.00-0.00); Nucleated Red Blood Cell % 0 /100 WBC (0); Platelet Count 419 Thou/mm3 (140-440); RDW Standard Deviation 48.8 fL (35.1-43.9); Red Blood Count 3.13 Miln/mm3 (4.50-5.90); White Blood Count 9.9 Thou/mm3 (3.8-10.6)
[2025-05-30 05:59] LABS: Hemoglobin 8.7 g/dL (13.5-16.0)
[2025-05-30 06:18] LABS: Alanine Aminotransferase 59 U/L (10-49); Albumin, Serum 3.9 gm/dL (3.5-5.0); Albumin/Globulin Ratio 1.3 (1.2-2.2); Alkaline Phosphatase 259 U/L (46-116); Anion Gap 13 (7-16); Aspartate Amino Transferase 40 U/L (0-34); BUN/Creatinine Ratio 32 Ratio (12-20); Bilirubin,Total 0.3 mg/dL (0.3-1.2); Blood Urea Nitrogen 16 mg/dL (9-23); Calcium 9.6 mg/dL (8.3-10.6); Calcium (Corrected) 9.7 mg/dL (8.5-10.1); Carbon Dioxide 27.1 mMol/L (20.0-31.0); Chloride 99 mMol/L (98-107); Creatinine (Component) 0.5 mg/dL (0.6-1.3); Estimated Creatinine Clearance 182.4 mL/min (>60); Globulin 2.9 gm/dL (2.3-3.5); Glucose 100 mg/dL (74-106); Magnesium 1.7 mg/dL (1.6-2.6); Osmolality,Calculated 278 (275-295); Phosphorous 6.2 mg/dL (2.4-5.1); Potassium 4.5 mMol/L (3.4-5.1); Sodium 139 mMol/L (136-145); Total Protein 6.8 gm/dL (5.7-8.2); eGFR > 60 See Note
[2025-05-30 06:59] LABS: Valporic Acid (Depak)* <4.0 mg/L (50.0-100.0)
[2025-05-30] MEDS: Magnesium Sulfate 2 GM Ivpb 2 GM/50 ML BAG IV (07:46)
--- NOTE | 2025-05-30 08:05 | ESPR_ITS ---
Documentation for date of: 05/30/25 Subjective Subjective Interval history: 06/26/2025: Patient was seen and examined at bedside this morning. No acute overnight events. Patient has been having good urine output. No fevers in the last 24 hours. Patient's heart rate still on the low 100s to 110s. Weaned off Versed drip today to assess mental status and will likely wean down on other medications such as phenobarbital, oxycodone, and Klonopin. Neurology decreased patient's Keppra to 750 twice daily as last EEG did not show any seizure activity. Will speak with urology today concerning patient's phimosis. Patient was noted to have right arm swelling and redness therefore discontinued IV line and got ultrasound of upper extremities bilateral. Did not show any evidence of DVT in the right upper extremity and there was no DVTs on the left upper extremity. 05/29/2025: Patient was seen and examined at bedside this morning. No acute overnight events. Patient did not spike any fevers overnight for this morning. Heart rate has been controlled. Most likely patient did have serotonin syndrome as fast improvement fevers, therefore we will keep micafungin only for today and will likely discontinue tomorrow morning. Still on Versed drip, will titrate down and will likely be off sedation by tomorrow. No other complaints at this time. Still retaining some urine and getting frequent bladder scans and straight in and outs successfully. It was again noted that patient's foreskin was not retractable behind the glans of the penis and therefore we will get in contact with urology tomorrow for further recommendations. 05/28/2025: Patient was seen and examined at bedside this morning. No acute events. Patient did not spike any fevers overnight and no WBC spikes. Today patient however did have a rectal temperature of 101 for which Tylenol was given. Hemoglobin dropped from 10.6-8.6 today, but previously patient was around 8. Her still tachycardic and tachypneic. Will go up on oxycodone and will discontinue fentanyl as well as guaifenesin due to possible serotonin syndrome. Started Versed drip and placed on fentanyl. Will start micafungin as patient's left ear culture did grow Meenakshi parapsilosis and could be possible source for fevers. Also ordered cyproheptadine, but unavailable in our pharmacy at this time we will administer was available likely on Friday. Will monitor for further fevers as well as ongoing tachycardia. 05/27/2025: Patient had 2 fevers overnight, up to 104. Resolved with Ibuprofen. Patient received repeat LP yesterday, initial studies unremarkable. Fentanyl titrating down. Propofol remains high, will titrate as tolerated. Changed IV medications to GT when available. Patient tolerated tracheostomy well. 05/26/2025: Patient did not spike any fevers last night. Propofol was decrease to 45, while Fentanyl was maintained at 125. Patient is receiving bladder scans every 4 hours. Most recent in and out catheter revealed 600 cc of urine. Patient will go for tracheostomy today. Neruology will repeat lumbar puncture tonight. Changes to medications: clonazepam 2mg BID to TID, oxycodone 10mg to 15mg TID to try to wean off Fentanyl. Will continue with propranolol as it appears to be working as adjunct. 05/25/2025: Overnight, patient experienced a fever spike of 101.9?F, for which Ibuprofen was administered. Propofol was increased to 50, while Fentanyl was maintained at 125. Urine output over the past 12 hours was 1500cc, with no bowel movement noted. Propranolol 10mg TID was started. Bladder scan every 4 hours to check for urinary retention, if >400cc then straight in and out catheter. Lovonex and tube feeds will be held at midnight in preparation for tomorrow's tracheostomy. Sputum culture grew 2+ yeast, speciation pending. A repeat Cocci serology test was ordered. 05/24/2025: No overnight events. Patient had consistent urine output without the need for straight catheterization. No fever spikes overnight. Remains difficult to titrate down sedatives. Oxycodone 10 mg 3 times daily via G-tube was initiated with goal reducing fentanyl drip. MRI of brain only showed chronic infections, no acute intracranial pathology to explain underlying condition. Resume meropenem due to possibility of resistant Pseudomonas causing sinusitis, will require extended course of antibiotics for completion of treatment. Spoke with family regarding tracheostomy, risks and benefits were explained, family expressed understanding and was agreeable to procedure. General surgery consulted for tracheostomy. 05/23/2025: A continuous EEG was placed at approximately 7:30 PM on 05/22. Overnight, the patient experienced two fever spikes, with a peak temperature of 101.1?F. Patient remained on Propofol 40 mcg/kg/min and Fentanyl 100 mcg/hr. Two doses of Versed were administered for agitation. Patient continues to have increased secretions.Patient had premature ventricular contractions the night before. Repeat labs showed potassium at 5.2, magnesium at 1.9, and phosphorous at 5.5 . Calcium gluconate, breathing treatment, 4 gram of magesium and sevelamer was given. EKG showed sinus tachycardia with QTc 426. Patient also developed acute urine retention, with a bladder scan showing 700 cc. A Hawkins catheter was inserted due to leakage from the previous catheter and noted post- void retention. Patient had approximately 2000 cc of urine output overnight. Since patient's output is more than his input, tube feed water flushes were increased from 45 to 55 cc. Patient had one bowel movement this morning. Hawkins was removed this morning, and straight cath in and out will continue if the patient continues to experience urinary retention. EEG was reviewed by Dr. Lang, who confirmed that there were no signs of status epilepticus or seizures. Plan to do MRI of the brain next. Increased phenobarbital and clonazepam doses. Will work on weaning down propofol as patient's triglycerides are 385. Heparin was switched to Lovenox. 05/22/2025: Overnight, the patient developed fever spikes, with the highest reaching 101?F. Cooling measures were ineffective, and Ibuprofen was administered. In response to the patient's condition, fentanyl was increased from 100 mcg to 150 mcg, and propofol was increased from 35 mcg to 40 mcg. Urine output over the past 12 hours was 1100 cc. Given the recurrence of fevers and signs of hypersympathetic activity, the phenobarbital dosage was increased to 130 mg every 6 hours, up from every 8 hours. C. diff PCR testing is pending for loose stools. The patient has been receiving Versed every 5 minutes for seizure- like activity until it resolves. The ICU team held an extensive discussion with the patient?s parents regarding the next steps, which include transferring the patient to a facility capable of continuous EEG monitoring while weaning off sedation, as the patient continues to experience persistent seizures. Last day of meropenem to complete 10 day course. 05/21/2025: Overnight, patient developed two fever spikes, with a maximum temperature of 102.6?F. Fevers were managed with Tylenol and cooling measures. Hawkins catheter was removed and replaced with a QiVi external catheter, with urine output of 1,650 cc over the past 12 hours. Propofol was increased from 30 to 35 mcg/kg/min due to agitation and the patient breathing over the ventilator, while fentanyl maintained at 150 mcg/hr. No bowel movement was reported overnight. Neurology agreed with gradual weaning of sedation as tolerated. EEG is scheduled for Friday, 05/23, and daily EEG monitoring is not required. Ear culture returned with Meenakshi, likely from normal hamilton from the ear swab. Ears were examed with otoscope. Right ear unremarkable. Left ear canal with clear liquid, like from ofloxacin ear drops. Reduced phenobarbital to 130 mg every 8 hours and clonazepam to 1mg BID. Versed 2 mg IV is available as needed for agitation. Continue meropenem. Fungal culture of ear culture grew Meenakshi, likely representing normal hamilton from the ear swab. Patient exhibited green penile discharge following hawkins removal. A chlamydia and gonorrhea test was ordered. Right arm is warm and tense to touch from IV infiltration, IV was removed and placed in distal part of the right forearm. 05/20/2025: Overnight, patient had a fever spike of 101.2F. Patient remained on Propofol 40 and Fentanyl 150 for sedation. Precedex was not needed for agitation. Urine output was 2800 cc in the past hours with no gross hematuria. No bowel movement. Patient?s phenobarbital dose was adjusted to 260 mg every 8 hours. Keppra dose was increased to 1000 mg twice daily as per the neurologist?s recommendation. An EEG revealed electrographic seizure activity. A repeat sputum culture was obtained due to contamination of the previous sample. Additionally, a gradual wean of propofol and fentanyl was initiated as tolerated. 05/19/2025: Overnight, patient had a fever spike of 102.2?F. Due to agitation, the Versed infusion was increased from 4 mg/gtt to 8mg/gtt. Patient was also receiving Propofol 30 and Fentanyl 150. Patient had one bowel movement and produced 1L of urine over the past 12 hours, with no evidence of gross hematuria. Versed 4 mg gtt was titrated up to 8mg gtt for patient's agitation. Patient was on Propofol 30 and Fentanyl 150. Patient had one bowel movement. Urine output was 1L in the past 12 hours with no gross hematuria. This morning, clonazepam 2 mg PO TID was initiated, Propofol infusion was increased to 50 mcg/kg/min, and fentanyl was maintained at 50 mcg/hr. The versed infusion was discontinued, and Meropenem was restarted to treat Pseudomonas pneumonia, since the patient continued to spike fevers despite discontinuation of the medication. Sputum culture and EEG will be repeated. Heparin was restarted for DVT PPX. 05/18/2025: Overnight, patient remained on Propofol 30 and Fentanyl 300, with Versed 2mg dose x1. Magnesium was given for bronchodilation. Ibuprofen given for fever. Plan was to wean off sedation and extubate the patient today, but due to significant oral secretions and concerns about potential aspiration and the patient's inability to protect the airway, the decision was made to keep the patient intubated for now. A spontaneous breathing trial was attempted, and the patient?s lungs are functioning well. However, given the ongoing agitation, sedation could not be reduced. Phenobarbital dose was increased from 130mg to 260mg every 6 hours, and a 4mg Versed drip was started. Olanzapine was discontinued, and both doxycycline and meropenem were stopped due to concerns of a potential drug reaction, as fever spikes worsened after the initiation of meropenem on 05/12. Heparin was restarted yesterday for a DVT in the left brachial vein but was discontinued this morning due to ongoing hematuria without clots. A follow-up Doppler will be performed in 2-3 days to assess whether the DVT has resolved. Patient?s urine output was 2240cc over the past 12 hours. Maintenance fluids were started at 100ml/hr to manage the increased urine output. ICU team spoke with the patient's mother today, providing updates on the changes in the medication regimen and the patient's current status. Informed her that this is Day 9 of intubation, and there are four more days to attempt extubation before considering a tracheostomy. TSH, EBV, and CMV panels were ordered for further evaluation. 05/17/2025: Overnight,patient was placed on droplet precautions due to positive rhinovirus and human metapneumovirus. Patient received a 4 mg dose of Versed for agitation. Heparin drip was initiated for an upper extremity DVT but was paused at 12:15 AM due to hematuria without clots. Urine output was approximately 170 cc/hr, and the patient had two bowel movements since yesterday. Today, the patient underwent bronchoscopy and tolerated the procedure well, with stable gas exchange observed. To facilitate weaning off fentanyl and propofol, the patient was started on phenobarbital 13 mg and oxycodone 10 mg scheduled TID. Will consider adding Precedex to further support the weaning process and work towards extubation tomorrow. Heparin drip for the DVT has been restarted as the hematuria is improving. Additionally, 1L of IV LR was administered to address hyperkalemia and hyperphosphatemia on AM labs. Plan is to remove the Hawkins catheter tomorrow, 05/18. 05/16/2025: Overnight, patient experienced intermittent spasmodic jerking episodes, lasting about 15-20 minutes at a time. During these episodes, the patient becomes tachycardic and febrile. Baclofen 10mg was administered, followed by a single dose of midazolam 2mg IV for agitation. Patient remains on fentanyl 100 mcg/hr and propofol 50 mcg/kg/min for sedation. Patient spiked a fever of 102.6?F, for which IV tylenol was given. A subsequent temperature of 102.4?F was treated with ibuprofen. The Hawkins catheter was replaced overnight. Urine output over the past 12 hours was approximately 850 mL. Patient has not had a bowel movement since 05/13, will add miralax. Due to persistent fevers, doxycycline 100 mg IV BID was initiated for gram-positive cocci coverage. Blood cultures will be repeated, and a right upper quadrant ultrasound has been ordered to evaluate for potential hepatobiliary source of infection. Liver enzymes are improved from yesterday. Planned Interventions: Initiate phenobarbital 130 mg IV every 6 hours and begin weaning off propofol. Increased olanzapine from 5 mg GT QHS to 5 mg TID. Perform bilateral upper extremity ultrasound to assess for DVT. Repeat UA, CXR, CT head and abd/pelvis. Check lipase levels. 05/15/2025: Overnight, the patient developed a fever of 101.8?F. PO acetaminophen was switched to IV formulation by the night team. Temperature improved to 99.5?F by morning. Urine output over the past 12 hours was approximately 620 cc. Liver enzymes continue to trend upward, will hold acetaminophen for now. Patient was weaned off midazolam infusion today. Plan is to begin tapering propofol next. Antipsychotic regimen was adjusted from quetiapine to olanzapine to minimize risk of QTc prolongation. Repeat chest X- ray showed improvement in bilateral pneumonia. Bronchoscopy was performed yesterday (05/14). Repeat procedure is being considered for 05/16. Increase in WBCs and fever likely from bronchoscopy. 05/14/2025: No acute events overnight. Stable on versed/ fentanyl and propofol. No vasopressor requirements. Patient underwent bronchoscopy, well tolerated. Gas exchange stable. PPeak remains in mid20s. Patient on minimal FiO2 and PEEP now. Good ventilator synchrony. Continues to have heavy drooling and output form upper airway. Minimal from ETT now. 05/13/2025: Patient increased FiO2 overnight to 100%. Difficulty managing secretions. Bleeding from nose and plugging. Agitated with maximal dose of precedex and benadryl pushes. Patient with low grade temp to 100.4F. Mild secretions from ETT, pink/ frothy. 05/12/2025: Patient weaned down on sedation. Tmax 102 degrees at 1600 hrs. 05/11. Patient developed mild hepatitis, likely response to medications, will monitor. Patient successfully weaned off of propofol and fentanyl, Precedex initiated. Patient extubated, placed on high flow. Continues to have high secretions, treated with chest PT, oral suctioning as needed, ipratropium breathing treatments scheduled. Patient notably agitated, treating with Benadryl as needed and Precedex drip. Will continue to try and decrease sedation while maintaining patent airway. Sputum culture grew thurman resistant Pseudomonas, meropenem initiated. Will continue Levaquin for now pending cultures. Ear cultures taken. Patient maintaining good urine output, will replete volume if patient exceeds greater than 2 L output. 05/11/2025: Overnight, the patient became increasingly agitated and was observed biting on the endotracheal tube. In response, propofol was increased from 40 mcg/kg/min to 45 mcg/kg/min, and fentanyl was increased from 200 mcg/hr to 250 mcg/hr. The plan is to attempt weaning the patient off sedation today, and work towards extubation. A lumbar puncture was performed, which showed 3 WBCs. Infection from meningitis is less likely, but culture results are pending for confirmation. Today, the patient has been experiencing a low-grade fever, with the highest recorded temperature being 100.4?F. After the Hawkins catheter was placed, the patient had 1700 cc of urine output over the past 12 hours. Followed up with Dr. Jacky Cuadra (ENT in [place]). Dr. Cuadra stated that there is nothing additional he could identify on the CT imaging that the radiologist has not already seen. And that if there was something it would likely be surgical and he does not perform surgeries. He recommended covering for Pseudomonas with clindamycin and Unasyn. The plan is to start levofloxacin for Pseudomonas coverage as well. Additionally, Dr. Cuadra suggested culturing the ear. 05/10/2025: Patient remained sedated with propofol and fentanyl throughout the night, maintaining adequate sedation levels. Around 2 AM, the propofol dose was reduced due to MAP in the 60s. 1L of LR was administered on top of the ongoing IV maintenance fluids at 100cc/hr. Following this, the MAP remained stable above 65. At 6:50 PM on 05/09, an ABG revealed a pH of 7.28, pCO2 of 55, and pO2 of 70, indicative of respiratory acidosis. Patient was given 5 grams of magnesium and 15 mg of albuterol over the course of an hour to promote bronchodilation. Magnesium also needed to be repleted. A repeat ABG showed normalization of the respiratory parameters. Patient's Hawkins catheter was removed and replaced with a QiVi catheter overnight per the patient's father?s request. However, the patient developed urinary retention. A bladder scan performed at 6 AM showed 295cc of retained urine, and a subsequent scan in the afternoon revealed 439cc. Primary team consulted ICU team. On 05/09, two rapid responses were initiated due to the patient?s escalating agitation and anxiety. Patient appeared to be in significant pain from his paraphimosis. The primary team consulted the ICU for further management, as the patient had already received diazepam, haldol, versed, and dilaudid earlier that morning, with inadequate relief. Additionally, there was concern over a decline in his pO2 levels. The initial ABG at 11:56 showed: pH 7.40, pCO2 40, pO2 131, HCO3 25. A repeat ABG at 13:40 revealed: pH 7.27, pCO2 43, pO2 53, HCO3 20. Upon evaluation by the ICU team, the patient was noted to be extremely agitated and wearing an oxygen mask, with audible gurgling sounds coming from the upper airway, raising concern for potential airway compromise. Given the risk of inadequate airway protection, the decision was made to transfer the patient to the ICU for intubation and further management. In the ICU, the patient was intubated. Urology, Dr. Vargas, was consulted earlier in the day. He was able to successfully perform a reduction of the paraphimosis. Telemetry Course: Patient was admitted to telemetry for further workup and management of sepsis of unknown source, with concern for meningitis. Empiric broad-spectrum antibiotic and antiviral therapy were started, consisting of ceftriaxone 2g IV twice daily, vancomycin (pharmacy to dose), ampicillin, and acyclovir. Neurology was consulted. CT of the orbit, sella, and inner ear was ordered given the patient?s history of acute mastoiditis, which showed severe bilateral chronic mastoiditis, bilateral otitis externa, bilateral otitis media, and bilateral cholesteatomas in the attics. CT head was also performed and was negative for acute hemorrhage, mass effect, or midline shift. Findings included prominent sphenoid, ethmoid, and maxillary antral sinusitis, bilateral chronic mastoiditis, bilateral otitis media, and opacification in the bilateral attics. For the patient?s seizures, his home medications of valproic acid and levetiracetam were restarted. Orders for midazolam and Haldol were placed as needed for breakthrough seizures and agitation. An ice pack was ordered for his paraphimosis. Infectious disease was also consulted. History of Present Illness: 24-year-old male with a past medical history significant for cerebral palsy, asthma, seizure disorder, chronic mastoiditis (previously treated with tympanostomy tube placement for recurrent otitis media, now removed), recurrent pneumonia, and chronic PEG tube dependence, presented to the ED on 05/08/2025 with a fever lasting over 24 hours. The patient also had a witnessed seizure episode lasting 5-10 seconds, characterized by tonic-clonic activity confined to the left side of the body. ED Course: -Initial vitals were: BP 122/84, HR 176, RR 26, T 105F, O2 sat 96% on room air. -Labs significant for: CBC showed a WBC of 16.3. CMP showed Na 148, K 5.2, Cl 107, bicarbonate 18.7, anion gap 22, creatinine 1.3 (baseline 0.7), lactic acid 3.2, alkaline phosphatase 120, LDH 352, total CK 1048, procalcitonin: 0.14. Urinalysis negative. Influenza A/B testing was negative. -Imaging included: EKG showed supraventricular tachycardia of HR [address] and T-wave abnormality. CXR showed no aspiration pneumonia but was noted to be of poor inspiratory effort. CT CAP w/o contrast seemed to show no gross infiltrates or other notable findings but was noted to be severely degraded by patient motion. -In the ED, patient was given acetaminophen 975 mg, ceftriaxone 1 gram IV, midazolam 2 mg IV x1, albuterol 2.5 mg, Zosyn 3.375 gram, 2 L NS fluid infusion, and 1 L LR fluid infusion. In the ED, the patient was agitated and pulled out his IV. Attempts at peripheral access were unsuccessful, and a right femoral central line was placed. Exam Vital Signs Temp Pulse Resp BP Pulse Ox O2 Del Method O2 Flow Rate 98.9 F 113 H 21 H 125/67 97 Mechanical Ventilation 35 05/30/25 04:00 05/30/25 07:00 05/30/25 06:19 05/30/25 07:00 05/30/25 07:00 05/29/25 13:00 05/16/25 12:00 FiO2 30 05/30/25 08:00 Narrative Exam Gen: sedated and trached, nonverbal at baseline, not in acute distress. HEENT: NCAT, EOMI, Pupils reactive KARLO, not icteric, Bilateral inferior eye scleral hemorrhage. External ears normal. No rhinorrhea. Moist mucous membranes. Neck: Supple, full range of motion, no observable masses, No meningeal sign. Lungs: No Respiratory distress, Coarse breath sounds bilateral. CV: tachycardic, no murmurs. Abdomen: Soft, nondistended, No rebound tenderness, PEG tube in place. MSK: No lower extremity edema no redness, peripheral pulses presents, Contracted and swollen hands. Skin: No, petechiae, lesions, erythematous, blanching and warm rash in R UE, around armpit area. : Foreskin unretractable, no discharge appreciated Neuro: Unable to assess due to patient's medical condition, pupils reactive Objective Labs 05/30/25 04:37 05/30/25 04:37 Labs: Laboratory Results - last 24 hr 05/22/25 05/30/25 04:55 04:37 WBC 9.9 RBC 3.13 L Hgb 8.7 L Hct 27.2 L MCV 87 MCH 27.8 MCHC 32.0 RDW Std Deviation 48.8 H Plt Count 419 D Neut % (Auto) 60 Lymph % (Auto) 20 [place] % (Auto) 12 Eos % (Auto) 7 Baso % (Auto) 1 Neut # (Auto) 5.9 Lymph # (Auto) 1.9 [place] # (Auto) 1.2 H Eos # (Auto) 0.7 H Baso # (Auto) 0.1 Immature Gran # (Auto) 0.12 H Absolute Nucleated RBC 0.00 Immature Gran % 1 H Nucleated RBC % 0 Sodium 139 Potassium 4.5 Chloride 99 Carbon Dioxide 27.1 Anion Gap 13 BUN 16 Creatinine 0.5 L Estim Creat Clear Calc 182.4 eGFR > 60 BUN/Creatinine Ratio 32 H Glucose 100 Calculated Osmolality 278 Calcium 9.6 Corrected Calcium 9.7 Phosphorus 6.2 H Magnesium 1.7 Total Bilirubin 0.3 AST 40 H ALT 59 H Alkaline Phosphatase 259 H Total Protein 6.8 Albumin 3.9 Globulin 2.9 Albumin/Globulin Ratio 1.3 Valproic Acid <4.0 L ABG Interpretation ABG results: 05/09/25 05/09/25 05/09/25 11:56 13:40 18:50 ABG pH 7.40 7.27 L D 7.28 L ABG pCO2 40 43 55 H D ABG pO2 131 H 53 L* D 70 L ABG HCO3 25 20 26 ABG O2 Saturation 99 H 81 L 92 ABG Base Excess 0 -7 L -2 05/10/25 05/11/25 05/12/25 00:14 05:06 01:18 ABG pH 7.35 7.33 L 7.39 ABG pCO2 42 D 54 H D 48 ABG pO2 103 D 93 94 ABG HCO3 23 28 H 29 H ABG O2 Saturation 99 H 98 98 ABG Base Excess -3 2 3 05/12/25 05/12/25 05/13/25 03:58 11:50 05:10 ABG pH 7.46 H 7.39 7.19 L* D ABG pCO2 41 48 60 H D ABG pO2 105 58 L* D 114 H D ABG HCO3 29 H 29 H 23 ABG O2 Saturation 99 H 90 L 98 ABG Base Excess 5 H 4 H -6 L 05/17/25 05/18/25 05/19/25 01:30 04:09 04:43 ABG pH 7.38 7.43 7.47 H ABG pCO2 46 44 43 ABG pO2 90 83 80 L ABG HCO3 27 H 29 H 31 H ABG O2 Saturation 98 97 97 ABG Base Excess 2 5 H 7 H 05/21/25 05/21/25 04:18 06:33 ABG pH 7.37 D 7.46 H ABG pCO2 50 H 38 D ABG pO2 40 L* D 121 H D ABG HCO3 29 H 27 H ABG O2 Saturation 66 L 100 H ABG Base Excess 3 3 Quality Measures Quality Measures VTE prophylaxis (SCDs) and sepsis Current suspected stage: ruled out Possible source: pulmonary Blood cultures ordered: yes Antibiotic ordered: No Assessment & Plan Assessment Current Active Medications: Generic Name Dose Route Start Last Admin Trade Name Freq PRN Reason Stop Dose Admin Acetaminophen 650 mg 05/28/25 10:36 Acetaminophen Racquel 325 Mg/10 Ml Udc NG 06/27/25 10:35 Q4HR PRN fever >100.4 Albuterol/Ipratropium 3 ml 05/09/25 18:19 05/28/25 06:34 Albuterol/Ipratropium (Duoneb) Rt Racquel 3 Ml Nebu INH 06/08/25 18:18 3 ml Q2HR PRN Administration SHORTNESS OF BREATH OR WHEEZE Calcium Carbonate 600 mg 05/20/25 18:20 05/29/25 09:00 Calcium Carbonate 600 Mg Tablet GT 06/19/25 18:19 600 mg QDAY KYA Administration Clonazepam 2 mg 05/26/25 14:00 05/30/25 05:32 Clonazepam 0.5 Mg Tablet PO 05/31/25 13:59 2 mg TID KYA Administration Enoxaparin Sodium 40 mg 05/23/25 11:15 05/29/25 09:00 Enoxaparin Sod Inj 40 Mg/0.4 Ml Syringe SC 06/06/25 11:14 40 mg QDAY KYA Administration Midazolam HCl 100 mg in 100 mls @ 1 mls/hr 05/28/25 10:44 05/30/25 06:00 Versed Pf Inj In Ns Premix IV 06/02/25 10:43 1 mg/hr .Q24H PRN 1 mls/hr PER PROTOCOL Titration Protocol 1 MG/HR Micafungin Sodium 100 mg/ 100 mls @ 100 mls/hr 05/28/25 12:04 05/29/25 09:02 Sodium Chloride IV 06/12/25 12:03 100 mls/hr QDAY KYA Administration Magnesium Sulfate 2 gm in 50 mls @ 25 mls/hr 05/30/25 06:47 05/30/25 07:46 Magnesium Sulfate Ivpb IV 05/30/25 08:46 25 mls/hr X1 ONE Administration Lansoprazole 30 mg 05/28/25 09:00 05/29/25 09:03 Lansoprazole 30 Mg Tab.Rap.Dr GT 06/27/25 08:59 30 mg QDAY KYA Administration Levetiracetam 750 mg 05/30/25 09:00 Levetiracetam Liqd 500 Mg/5 Ml Udc GT 06/29/25 08:59 BID KYA Ofloxacin 5 drop 05/21/25 14:45 05/29/25 21:51 Ofloxacin Op Racquel 0.3% 5 Ml Btl BOTH EARS 05/31/25 14:44 1 drops BID KYA Administration Ondansetron HCl 4 mg 05/27/25 14:37 Ondansetron Odt 4 Mg Tabrap GT 06/26/25 14:36 Q6HR PRN NAUSEA OR VOMITING Protocol Oxycodone HCl 30 mg 05/28/25 14:00 05/30/25 05:33 Oxycodone Hcl 5 Mg Ir Tab PO 06/02/25 13:59 30 mg TID KYA Administration Phenobarbital 259.2 mg 05/28/25 07:15 05/30/25 05:31 Phenobarbital 32.4 Mg Tablet GT 06/11/25 07:14 259.2 mg Q6HR KYA Administration Polyethylene Glycol 17 gm 05/16/25 09:15 05/29/25 09:00 Polyethylene Glycol 17 Gm Packet PO 06/15/25 09:14 17 gm QDAY KYA Administration Sevelamer Carbonate 0.8 gm 05/27/25 08:00 05/29/25 17:06 Sevelamer Carbonate 0.8 Gm Packet (Non-Formulary) GT 06/26/25 07:59 0.8 gm TIDWM KYA Administration Sodium Chloride 3 ml 05/17/25 11:43 Sodium Chloride Rt Racquel 0.9% 3 Ml Nebu INH 06/16/25 11:42 PRN PRN SOLN Valproic Acid 250 mg 05/27/25 18:00 05/30/25 05:32 Valproic Acid Syrup 250 Mg/5 Ml Udc GT 06/26/25 17:59 250 mg Q8HR KYA Administration Plan 24-year-old male with cerebral palsy, asthma, seizure disorder, chronic mastoiditis, recurrent pneumonia, and chronic PEG tube dependence presented with fever and seizure, was admitted for sepsis workup, and later transferred to the ICU for intubation due to concerns about airway protection. Neurology #Agitated delerium #Serotonin Syndrome? Patient was extremely agitated before ICU admission, likely due to pain from paraphimosis. Patient initially sedated with propofol and fentanyl, titrated to Precedex with Benadryl before extubation. Patient failed extubation and was intubated on 05/12. Propofol and fentanyl was restarted. Still spiking fevers and tachycardic, possible serotonin syndrome Diagnostic Test: - EEG did not show seizure activity per neurology. - MRI brain 05/23: showed chronic infections, no acute pathology. Treatment Plan: - decreased Phenobarbital 130 mg Q8H, will continue weaning down tomorrow. - Clonazepam 2 mg TID. - Continue Oxycodone to 30 mg TID. - off Versed drip - Neurology consulted, appreciate recommendations. #History of seizures #Cerebral palsy Diagnosis: - Temperature of 105F on admission. - EEG 05/11 unremarkable - Repeat EEG 05/20: electrographic seizure activity. - Persistent fever spikes. - Continuous EEG 05/22-05/23: no seizure activity or status epilepticus. Treatment Plan: - Levetiracetam 1000 mg BID. - Valproic acid 187.5 mg Q6H. - Adjust seizure medications if breakthrough seizures recur - Seizure precautions. - Aspiration precautions. -Neurology on board, appreciate recs Cardiovascular #Sinus tachycardia (improving) DDx: fevers vs hypersympathetic activity. Diagnostic Test: - Fever spikes associated with tachycardia, tachypnea Treatment Plan: - Stopped medication that could cause serotonin syndrome - No specific treatment required at this time. Infectious disease workup remains unrevealing. Unsure of the cause of fever spikes which are associated with tachycardia and tachypnea. - Continue close cardiac monitoring. - Monitor electrolytes and replete as needed. - Maintain Mg > 2 and K > 4 to reduce arrhythmia risk. Respiratory #Failed extubation 05/12 #Acute hypoxic respiratory failure s/p tracheostomy Diagnostic Test: - CXR 05/11: Mild bilateral perihilar pneumonia. To assess for ventilator associated pneumonia. Not much change from 05/09 CXR. - Resistant Pseudomonas from ETT secretions previously (05/09). - CXR 05/19: Significant bilateral pneumonia. Repeat Cocci serology test was negative - 05/20 sputum culture grew meenakshi Treatment Review (completed): - Patient extubated to [facility] 05/12, chest film with centro-bronchovascular congestion and multifocal pneumonia. - Reintubated overnight 05/13- VC/AC PPeak 20 PEEP 5 FiO2 40%. - Patient underwent bronchoscopy on 05/14 and 05/17 for secretions, well tolerated. - Patient underwent tracheostomy on 05/26/2025 - Meropenem (05/12-05/17, 05/19-05/22, for a total of ten days). Treatment Plan: - DC'd micafungin 100mg qday 05/28-05/30 - Chest physiotherapy PRN. #Bronchospasm #History of asthma Diagnostic Test: - Although the patient has a history of asthma, the bronchospasm is most likely from the irritant effect of blood in the airway. A small amount of blood, which was likely from dryness of the nasal mucosa, was suctioned out during intubation. Treatment Plan: - Magnesium for bronchodilator effect as needed. - Albuterol and Ipratropium as needed. GI, , F/E/N #Chronic PEG tube dependence Treatment Plan: - Jevity 1.5 at 40 ml/hr x 24 hrs via PEG tube by pump (goal). If no IV fluids, water flushes of 55 ml/hr. - ProStat 30ml BID via PEG tube. - Appreciate fish frog or oyster farmer recommendations. - Triglyceride level 05/14 - 290; 05/17 - 312; 05/20 - 221; 05/26 - 275. #Hepatitis (improving) Likely due to meropenem or tylenol that could potentially cause hepatotoxicity. Diagnostic Test: - Gallbladder ultrasound 05/16: Normal gallbladder, no gallstones. Fatty infiltration throughout the liver. - Lipase 05/16: 41 wnl. Treatment Plan: - Continue daily LFTs. - Will reassess if transaminases continue to rise or clinical status changes. #Acute urinary retention (resolved) Treatment Plan - Monitor urine output, replace fluid if needed. - Hawkins removed 05/23 - Every 4 hour bladder scan and straight cath as needed for >400cc. #Hypoalbuminemia (resolved) Likely due to acute hepatitis Diagnostic Test: - UA had urine proteins 1+. - Albumin 4.9 -->3.3 -->2.8 --> 3.2 --> 3.4 --> 2.8 --> 2.5---> 4--->3.9. Treatment Plan: - Maintain on PEG tube feeds per fish frog or oyster farmer recommendations. #Paraphimosis (resolved) #Balanitis (resolved) #Phimosis Diagnostic Test: - Edema and tenderness of the glans penis. - Swelling of the distal retracted foreskin. - Constricting band of tissue proximal to the head of the penis at the coronal sulcus. - Hawkins was removed on 05/09 and transitioned to Oivi external urinary catheter. Discussed with family about the need to reinsert hawkins due to the patient's acute urinary retention. Family were in agreement with this plan. Hawkins was reinserted on 05/10 due to urinary retention. Hawkins changed and replaced on 05/16. - S/p reduction of the paraphimosis by Dr. Vargas on 05/09. - 05/29/2025 Patient noticed to have unretractable foreskin Treatment Plan: - Pending urology recs - Control patient's pain with sedation. - Monitor urine output. Renal #Hyperkalemia (resolved) #Hyperphosphatemia (downtrending) DDx: acute kidney injury vs hemolysis vs rhabdomyolysis. Treatment Plan: - Monitor BMP and phosphorus. - Monitor potassium levels to avoid arrhythmias. - Sevelamer 800 milligram GT 3 times daily, will adjust if needed. #Acute kidney injury (resolved) DDx: dehydration or vasodilation from sepsis. Diagnositc Test: - Creatinine 0.5 Treatment Plan: - Continue with free water flushes. - Daily renal panel to trend BUN, Cr, and electrolytes. - Avoid nephrotoxins. - Renally dose meds as appropriate. - Strict I&Os, monitor urine output closely. - Monitor for signs of volume overload or uremic symptoms. #Anion Gap Metabolic Acidosis (resolved) #Lactic acidosis (resolved) DDx: seizures vs sepsis vs acute kidney injury vs hypoperfusion. Likely from seizures as patient has no signs of systemic hypoperfusion such as skin mottling, decreased cap refills. Diagnostic Test: - Admission anion gap 22, lactic acid 16.0, bicarbonate 18.7. #Rhabdomyolysis (resolved) DDx: seizures vs hyperthermia vs infectious myositis. Diagnostic Test: - CK 1048 --> 3743 --> 1654 --> 338 --> 363. - Witnessed seizure episode lasting 5-10 seconds, characterized by tonic-clonic activity prior to admission. Treatment Plan: - Continue free water flushes at 35 cc/hr. - Monitor urine output. - Correct electrolyte abnormalities. - Control seizures with valproic acid and levetiracetam. - Monitor renal panel. Heme #Acute nonocclusive thrombus in the left brachial vein Diagnostic Test: - Venous doppler study of upper extremities 05/16: Normal right upper extremity deep venous system. Positive for nonocclusive thrombus in the left brachial vein. - Per chart review and patient's parents, patient does not have history of clots. Treatment Review (completed): - Lovenox 30 mg (05-11 - 05/15). - Lovenox 40 mg (05/16). - Heparin loading dose and ggt. Lovenox to heparin due to heparin?s shorter half-life, which allows for more rapid cessation in the event of bleeding, a shorter half life and can be stopped if bleeding occurs. - Stopped heparin ggt due to hematuria on 05/18. Treatment Plan: - Lovenox 70 mg SC BID switched today for DVT Tx - Primary upper extremity deep vein thrombosis, anticoagulation should be continued for a minimum of three months following the initial thrombotic event. #Normocytic Anemia DDx: Anemia of Inflammation vs dilutional anemia vs drug-induced anemia. Likely dilutional anemia since patient had normal hemoglobin on admission and from IV fluids per sepsis protocol. No signs of bleeding. Treatment Plan: - Monitor H&H. - Type and screen. - Transfusing for Hgb <7 or symptomatic. #Thrombocytosis (Resolved) DDx: infection vs reactive Diagnostic Test: - Plt 711---> 352 Treatment Plan: - Monitor CMP. #Leukocytosis (resolved) DDx: likely due to bronchoscopy vs infection of unknown source vs drug induced Diagnostic Test: - Fever free overnight and AM -WBC 8.2 today Treatment Plan: - Treat underlying cause. #Thrombocytopenia (resolved) DDx: Dilutional versus consumption versus increased destruction due to sepsis. Initial decrease is likely due to dilutional in setting of IV fluids, however his WBC and hemoglobin have leveled off platelets have down trended. Diagnostic test: - Platelets: 209 --> 65-->141-->460. Treatment plan: - Monitor daily labs - Avoid excessive oral tracheal suctioning in setting of previous bleed and thrombocytopenia. Endo #no active problems ID #Sepsis #Bilateral chronic mastoiditis #Sinusitis #Bilateral otitis media #Bilateral otitis externa #Meenakshi parapsilosis DDx: meningitis vs acute on chronic mastoiditis vs acute febrile illness. Diagnostic Test: - History of chronic mastoiditis. - Met SIRS criteria on admission: T 105F, HR 176, RR 26, PaCO2 26, WBC 16.3. - 05/08 CT Head: prominent sphenoid ethmoid maxillary antral sinusitis, bilateral chronic mastoiditis, bilateral otitis media. - 05/08 CT Orbit Sella Inner: severe bilateral chronic mastoiditis, bilateral otitis externa and otitis media, bilateral cholesteatomas in the attics. - 05/09 Sputum culture: 1+ thurman resistance Pseudomonas. - 05/10 Lumbar puncture: clear, WBC 3, glucose 70, total protein 25. CSF testing negative. - 05/10 Respiratory viral panel: rhinovirus/enterovirus and human metapneumovirus detected. - 05/12 Bilateral ear culture: E coli ESBL. - UA 05/08 and 05/16 negative. - Blood culture 05/08, 05/11, and 05/16 negative. - 05/16 CXR: worsening diffuse severe left lung pneumonia. - Meenakshi parapsilosis in L ear culture Treatment Review (completed) - Rocephin 2 gm IV q12HR [05/08-05/11]. - Vancomycin dosed by pharmacy [05/08-05/11] since MRSA screen is negative. - Acyclovir 700 mg IV [05/08-05/11] since LP negative. - Fluids: 30mL/kg -- 2 L NS fluid infusion and 1 L LR fluid infusion was given in the ED. - Femoral central line removed 05/11, replaced with peripheral access. - A repeat Cocci serology test was negative Treatment Plan: - Topical oxofloxacin. - DC'd Micafungin 100mg qday 05/28-05/30 Integumentary #Maculopapular rash to the buttocks DDx: contact dermatitis vs allergic dermatitis Treatment Plan - Patient no longer has diaper on. Anticipate rash to improve. Health Maintenance DVT prophylaxis: SCDs, Levonox 40mg QD GI prophylaxis: Protonix IV Diet: Jevity Hawkins: none. Straight cath in/out q4h if urine retention more than 400 ml Lines: Peripherals, PEG tube. Drips: Versed Code status: Full code Case disclosed with Attending Dr. Marcello Easton PGY2 Disclaimer: Even though this this note was dictated by speech recognition and even though it was carefully revised there may still be minor errors in retail link analyst due to voice recognition software. Attending Provider Attestation/Addendum Patient seen and examined with the above resident, Alexandr Easton MD. I agree with the findings, assessment, and plan of care as document except for any differences below. Patient continues to remain afebrile. At this point with a negative procalcitonin making bacterial infection less likely, will continue off antibiotics. Patient was started on micafungin given presence of Meenakshi per op cirrhosis as well as albicans multiple samples though this likely reflects colonization in setting of recurrent antibacterial treatments. This should resolve with both propria therapy as well as discontinuation of antibacterial suppression. However, will send 1 3 beta D glucan which in combination with a negative procalcitonin will be extremely reassuring that there is no presence of fungal infection at this time. At this will allow us to avoid prolonged course of micafungin unnecessarily. Additional etiology of fever may be related to presence of DVT, repeat ultrasound now shows negative scan. However patient will remain on Lovenox for 3 months. Previously had hematuria, will continue to follow as he was only on prophylaxis previously. Patient was transitioned off of Versed overnight and is doing well with current phenobarbital/Klonopin/oxycodone regimen. Patient's mother was updated at bedside including changed over to SIMV as we begin to transition him to be weaned from mechanical ventilation. He is able to trigger breaths with appropriate volumes however with higher pressure support. Patient remains afebrile with discontinuation of all sedation with continuous drips. Continue to suspect that the primary cdl a driver of his unresolved fever was likely serotonin syndrome due to guaifenesin and fentanyl in combination. Patient also on now with phimosis, urology was consulted. Patient continues to have incontinence at this point. Total critical care time: I personally spent 35 minutes for review of physiologic parameters, directing plan of care throughout the day, coordination of care with other specialists, and counseling patient's family at bedside. This is exclusive of time spent teaching on staff and performing any separate billable procedures. Patient remains at significant risk for further morbidity and mortality warranting close monitoring and care will be available in the ICU. Critical care services required for acute hypoxic respiratory failure, serotonin syndrome, epilepsy, provoked upper extremity DVT, and otitis externa/mastoiditis.
[2025-05-30] MEDS: SEVELAMER CARBONATE 0.8 GM PACKET (NON-FORMULARY) GT ×3 (08:30→18:22)
[2025-05-30] MEDS: levETIRAcetam LIQD 500 MG/5 ML UDC 750 MG GT ×2 (08:30→21:22)
[2025-05-30] MEDS: LANSOPRAZOLE 30 MG TAB.RAP.DR GT (08:30)
[2025-05-30] MEDS: OFLOXACIN OP SOL 0.3% 5 ML BTL 5 DROP BOTH EARS ×2 (08:31→21:26)
[2025-05-30] MEDS: CALCIUM CARBONATE 600 MG TABLET GT (08:31)
[2025-05-30] MEDS: ENOXAPARIN SOD INJ 40 MG/0.4 ML SYRINGE SC (08:31)
[2025-05-30] MEDS: POLYETHYLENE GLYCOL 17 GM PACKET PO (08:32)
--- NOTE | 2025-05-30 09:02 | PD.IDPROG ---
Subjective Subjective Interval history: fever better coincident with initiation of Micafungin. may be accidental usually yeast are not resp pathogens, but attempt to treat per icu team Exam Vital Signs Temp Pulse Resp BP Pulse Ox O2 Del Method O2 Flow Rate 98.8 F 113 H 21 H 122/64 99 Mechanical Ventilation 35 05/30/25 08:00 05/30/25 08:00 05/30/25 06:19 05/30/25 08:00 05/30/25 08:00 05/29/25 13:00 05/16/25 12:00 FiO2 30 05/30/25 08:00 Narrative Exam limited eval today Objective - Internal Medicine Labs 05/30/25 04:37 05/30/25 04:37 Labs: Laboratory Results - last 24 hr 05/22/25 05/30/25 04:55 04:37 WBC 9.9 RBC 3.13 L Hgb 8.7 L Hct 27.2 L MCV 87 MCH 27.8 MCHC 32.0 RDW Std Deviation 48.8 H Plt Count 419 D Neut % (Auto) 60 Lymph % (Auto) 20 [place] % (Auto) 12 Eos % (Auto) 7 Baso % (Auto) 1 Neut # (Auto) 5.9 Lymph # (Auto) 1.9 [place] # (Auto) 1.2 H Eos # (Auto) 0.7 H Baso # (Auto) 0.1 Immature Gran # (Auto) 0.12 H Absolute Nucleated RBC 0.00 Immature Gran % 1 H Nucleated RBC % 0 Sodium 139 Potassium 4.5 Chloride 99 Carbon Dioxide 27.1 Anion Gap 13 BUN 16 Creatinine 0.5 L Estim Creat Clear Calc 182.4 eGFR > 60 BUN/Creatinine Ratio 32 H Glucose 100 Calculated Osmolality 278 Calcium 9.6 Corrected Calcium 9.7 Phosphorus 6.2 H Magnesium 1.7 Total Bilirubin 0.3 AST 40 H ALT 59 H Alkaline Phosphatase 259 H Total Protein 6.8 Albumin 3.9 Globulin 2.9 Albumin/Globulin Ratio 1.3 Valproic Acid <4.0 L ABG Interpretation ABG results: 05/09/25 05/09/25 05/09/25 11:56 13:40 18:50 ABG pH 7.40 7.27 L D 7.28 L ABG pCO2 40 43 55 H D ABG pO2 131 H 53 L* D 70 L ABG HCO3 25 20 26 ABG O2 Saturation 99 H 81 L 92 ABG Base Excess 0 -7 L -2 05/10/25 05/11/25 05/12/25 00:14 05:06 01:18 ABG pH 7.35 7.33 L 7.39 ABG pCO2 42 D 54 H D 48 ABG pO2 103 D 93 94 ABG HCO3 23 28 H 29 H ABG O2 Saturation 99 H 98 98 ABG Base Excess -3 2 3 05/12/25 05/12/25 05/13/25 03:58 11:50 05:10 ABG pH 7.46 H 7.39 7.19 L* D ABG pCO2 41 48 60 H D ABG pO2 105 58 L* D 114 H D ABG HCO3 29 H 29 H 23 ABG O2 Saturation 99 H 90 L 98 ABG Base Excess 5 H 4 H -6 L 05/17/25 05/18/25 05/19/25 01:30 04:09 04:43 ABG pH 7.38 7.43 7.47 H ABG pCO2 46 44 43 ABG pO2 90 83 80 L ABG HCO3 27 H 29 H 31 H ABG O2 Saturation 98 97 97 ABG Base Excess 2 5 H 7 H 05/21/25 05/21/25 04:18 06:33 ABG pH 7.37 D 7.46 H ABG pCO2 50 H 38 D ABG pO2 40 L* D 121 H D ABG HCO3 29 H 27 H ABG O2 Saturation 66 L 100 H ABG Base Excess 3 3 Assessment & Plan A&P Narrative viral findings on pcr testing at health dept. cmv pos in csf initially, repeat pending resp failure fuo I am ok with him off abx entirely. procal has mostly been neg for a long time now so value of more abx seems low. would not target the cmv in csf. not sure why it was checked.if you desire rx, that is ok but value of rx seems low. hardest thing to do is stop meds but that is often what is needed. last fever 10/31 pm meenakshi in sputum also not felt to be a pathogen. so would not target the meenakshi either. but if you insist on rx, then flucon enterally ok for yeast in sputum Time Spent With Patient Time: Total time spent is greater than 50% in coordination of care (as documented) at patient's floor/unit and/or counseling patient:
[2025-05-30] MEDS: MICAFUNGIN SODIUM INJ 100 MG in SODIUM CHLORIDE 0.9% 100 ML IV (09:42)
--- NOTE | 2025-05-30 10:01 | XR_ITS ---
Examination: Venous duplex lower extremity sonogram, bilateral. Date and time of exam: 05/30/2025, 12:11 p.m. Technique: Multiple sonographic images of the deep venous system have been obtained. B-mode/2-D grayscale imaging of vascular structures and Doppler spectral analysis (waveforms) and color performed Both legs are examined. Indication: Bilateral arm swelling for 1 day COMPARISON: Bilateral upper extremity venous ultrasound 05/16/2025 Findings: Bilateral internal jugular veins are patent without evidence for DVT. Right upper extremity: All visualized deep veins exhibit compressibility. All visualized deep veins exhibit augmentation. Left upper extremity: The previously visualized left brachial vein DVT is no longer present. No DVT elsewhere in the left upper extremity. The visualized deep veins exhibit compressibility and augmentation. No evidence for acute superficial thrombophlebitis, although the left basilic vein is not visualized at this time. Subcutaneous edema is present in the bilateral upper extremities. Impression: Negative for right upper extremity deep vein thrombosis. No evidence for DVT in the left upper extremity; previously seen nonocclusive left brachial vein DVT has resolved. The left basilic vein is currently not seen.
--- NOTE | 2025-05-30 15:28 | PC.SS ---
Update: Patient Trach/PEG. Receiving IV antibiotics. In possession of low grade fever. Discussion LTAC vs Sub-Acute placement with family is pending.
--- NOTE | 2025-05-30 20:28 | ESPR_ITS ---
Documentation for date of: 05/30/25 Subjective Subjective Interval history: Patient was seen in ICU today at the bedside. He underwent tracheostomy recently and Continued to remain on mechanical ventilatory support on only minimal sedation. No clinical seizures reported overnight. Exam - Neurology Vital Signs Temp Pulse Resp BP Pulse Ox O2 Del Method O2 Flow Rate 98.4 F 118 H 25 H 126/75 100 Mechanical Ventilation 35 05/30/25 20:00 05/30/25 20:00 05/30/25 19:31 05/30/25 20:00 05/30/25 20:00 05/30/25 20:00 05/16/25 12:00 FiO2 30 05/30/25 20:00 Narrative Exam GENERAL APPEARANCE: Developmentally delayed male , trached and on mechanical ventilatory support HEENT: Normocephalic, atraumatic, Pupils: Equal reacting to light NECK: Supple, no JVD or bruits. CARDIOVASULAR: Heart: S1, S2 heard, regular without S3-S4 or murmur no rubs or gallops. LUNGS/CHEST: Breath sounds heard equally bilaterally, bilateral Rales and rhonchi heard. ABDOMEN: Soft, nontender, with normal bowel sounds. No pulsatile masses. No rebound, rigidity, or guarding. Normal inspection and palpation. EXTREMITIES: Normal inspection and palpation. No edema, clubbing or cyanosis. SKIN: Warm and dry without rashes. Normal inspection. NEURO: Limited from sedation, brainstem function: partly Intact, moves all extremities. PSYCHIATRIC: Limited Objective Labs 05/31/25 04:34 05/31/25 04:34 Labs: Laboratory Results - last 24 hr 05/22/25 05/30/25 04:55 04:37 WBC 9.9 RBC 3.13 L Hgb 8.7 L Hct 27.2 L MCV 87 MCH 27.8 MCHC 32.0 RDW Std Deviation 48.8 H Plt Count 419 D Neut % (Auto) 60 Lymph % (Auto) 20 Bollinger % (Auto) 12 Eos % (Auto) 7 Baso % (Auto) 1 Neut # (Auto) 5.9 Lymph # (Auto) 1.9 Bollinger # (Auto) 1.2 H Eos # (Auto) 0.7 H Baso # (Auto) 0.1 Immature Gran # (Auto) 0.12 H Absolute Nucleated RBC 0.00 Immature Gran % 1 H Nucleated RBC % 0 Sodium 139 Potassium 4.5 Chloride 99 Carbon Dioxide 27.1 Anion Gap 13 BUN 16 Creatinine 0.5 L Estim Creat Clear Calc 182.4 eGFR > 60 BUN/Creatinine Ratio 32 H Glucose 100 Calculated Osmolality 278 Calcium 9.6 Corrected Calcium 9.7 Phosphorus 6.2 H Magnesium 1.7 Total Bilirubin 0.3 AST 40 H ALT 59 H Alkaline Phosphatase 259 H Total Protein 6.8 Albumin 3.9 Globulin 2.9 Albumin/Globulin Ratio 1.3 Valproic Acid <4.0 L ABG Interpretation ABG results: 05/09/25 05/09/25 05/09/25 11:56 13:40 18:50 ABG pH 7.40 7.27 L D 7.28 L ABG pCO2 40 43 55 H D ABG pO2 131 H 53 L* D 70 L ABG HCO3 25 20 26 ABG O2 Saturation 99 H 81 L 92 ABG Base Excess 0 -7 L -2 05/10/25 05/11/25 05/12/25 00:14 05:06 01:18 ABG pH 7.35 7.33 L 7.39 ABG pCO2 42 D 54 H D 48 ABG pO2 103 D 93 94 ABG HCO3 23 28 H 29 H ABG O2 Saturation 99 H 98 98 ABG Base Excess -3 2 3 05/12/25 05/12/25 05/13/25 03:58 11:50 05:10 ABG pH 7.46 H 7.39 7.19 L* D ABG pCO2 41 48 60 H D ABG pO2 105 58 L* D 114 H D ABG HCO3 29 H 29 H 23 ABG O2 Saturation 99 H 90 L 98 ABG Base Excess 5 H 4 H -6 L 05/17/25 05/18/25 05/19/25 01:30 04:09 04:43 ABG pH 7.38 7.43 7.47 H ABG pCO2 46 44 43 ABG pO2 90 83 80 L ABG HCO3 27 H 29 H 31 H ABG O2 Saturation 98 97 97 ABG Base Excess 2 5 H 7 H 05/21/25 05/21/25 04:18 06:33 ABG pH 7.37 D 7.46 H ABG pCO2 50 H 38 D ABG pO2 40 L* D 121 H D ABG HCO3 29 H 27 H ABG O2 Saturation 66 L 100 H ABG Base Excess 3 3 Assessment & Plan Additional Assessment & Plan Additional Plan: David Baltazar is 24 yr male with PMH of chronic mastoiditis (previously had tympanostomy tube placed for recurrent otitis media, now removed), seizure disorder, recurrent pneumonia, cerebral palsy, chronic PEG tube, and asthma who was brought into ED on 05/08/25 for ongoing fever of over 24 hours and reported episode of witnessed seizure by ED. Patient was treated for sepsis.Neurology was consulted. #Chronic pansinusitis #ruled out Meningitis #Tonic clonic seizure #Cerebral palsy -continue Keppra and Depakote, phenobarbital per GT -seizure precautions -midazolam for breakthrough seizure as needed MRI brain: chronic pansinusitis. CSF analysis: unremarkable. #Paraphimosis #Normocytic Anemia Primary care team to manage above conditions and ongoing care needs.
[2025-05-30] MEDS: ENOXAPARIN SOD INJ 80 MG/0.8 ML SYRINGE 70 MG SC (21:20)
[2025-05-31] VITALS (20 sets, daily range): BP systolic 109–145; BP diastolic 58–93; PULSE 105–139; RESP 14–39; TEMP 37.1–37.7; O2SAT 92–100; BMI 29.0
[2025-05-31 05:18] LABS: Basophils # (Auto) 0.1 Thou/mm3 (0.0-0.2); Basophils % (Auto) 1 % (0-2.5); Eosinophils # (Auto) 0.6 Thou/mm3 (0.0-0.5); Eosinophils % (Auto) 5 % (0-10); Hematocrit 26.1 % (41.0-53.0); Immature Granulocytes Auto 0.16 Thou/mm3 (0.00-0.00); Lymphocytes # (Auto) 2.3 Thou/mm3 (1.0-4.8); Lymphocytes % (Auto) 22 % (10-50); Mean Corpuscular HGB Conc 32.6 g/dl (31.0-37.0); Mean Corpuscular Hemoglobin 27.6 pg (25.0-35.0); Mean Corpuscular Volume 85 fL (80-100); Monocytes # (Auto) 1.0 Thou/mm3 (0.0-0.8); Monocytes % (Auto) 10 % (0-12); Neutrophils # (Auto) 6.5 Thou/mm3 (1.8-7.7); Neutrophils % (Auto) 61 % (37-80); Nucleated Red Blood Cell # 0.00 Thou/mm3 (0.00-0.00); Nucleated Red Blood Cell % 0 /100 WBC (0); Platelet Count 529 Thou/mm3 (140-440); RDW Standard Deviation 46.7 fL (35.1-43.9); Red Blood Count 3.08 Miln/mm3 (4.50-5.90); White Blood Count 10.6 Thou/mm3 (3.8-10.6)
[2025-05-31 05:21] LABS: Hemoglobin 8.5 g/dL (13.5-16.0)
[2025-05-31] MEDS: oxyCODONE HCL 5 MG IR TAB 30 MG PO (05:34)
[2025-05-31] MEDS: VALPROIC ACID SYRUP 250 MG/5 ML UDC GT ×3 (05:35→20:43)
[2025-05-31 06:14] LABS: Alanine Aminotransferase 63 U/L (10-49); Albumin, Serum 3.9 gm/dL (3.5-5.0); Albumin/Globulin Ratio 1.4 (1.2-2.2); Alkaline Phosphatase 280 U/L (46-116); Anion Gap 12 (7-16); Aspartate Amino Transferase 41 U/L (0-34); BUN/Creatinine Ratio 26 Ratio (12-20); Bilirubin,Total 0.4 mg/dL (0.3-1.2); Blood Urea Nitrogen 13 mg/dL (9-23); Calcium 9.9 mg/dL (8.3-10.6); Calcium (Corrected) 10.0 mg/dL (8.5-10.1); Carbon Dioxide 26.6 mMol/L (20.0-31.0); Chloride 99 mMol/L (98-107); Creatinine (Component) 0.5 mg/dL (0.6-1.3); Estimated Creatinine Clearance 182.2 mL/min (>60); Globulin 2.8 gm/dL (2.3-3.5); Glucose 121 mg/dL (74-106); Magnesium 1.7 mg/dL (1.6-2.6); Osmolality,Calculated 276 (275-295); Phosphorous 6.5 mg/dL (2.4-5.1); Potassium 4.4 mMol/L (3.4-5.1); Sodium 138 mMol/L (136-145); Total Protein 6.7 gm/dL (5.7-8.2); eGFR > 60 See Note
[2025-05-31 06:18] LABS: Oligoclonal Bands, CSF* ABSENT (ABSENT)
[2025-05-31 06:19] LABS: Angiotensin Convert Enz, CSF* <5 U/L (< OR = 15)
--- NOTE | 2025-05-31 07:08 | XR_ITS ---
EXAMINATION: AP chest single view TECHNIQUE: AP supine portable chest single view Date and time: May 31, 2025, 0832 hours, comparison May 19, 2025 INDICATIONS: Status post tracheostomy placement FINDINGS: Tracheostomy tube tip 29 mm above haresh Reduced inspiratory effort No pneumonia or pulmonary edema IMPRESSION: Poor inspiratory effort chest x-ray Tracheostomy tube tip 29 mm above haresh
[2025-05-31 08:27] LABS: Base Excess, Venous 5 (-3-3); O2 Saturation, Venous 101 % (96-97); PCO2, Venous 31 mmHg (36-56); PO2, Venous 144 mmHg (15-58); pH, Venous 7.55 (7.33-7.66)
[2025-05-31] MEDS: Magnesium Sulfate 2 GM Ivpb 2 GM/50 ML BAG IV (09:23)
[2025-05-31] MEDS: LANSOPRAZOLE 30 MG TAB.RAP.DR GT (09:24)
[2025-05-31] MEDS: levETIRAcetam LIQD 500 MG/5 ML UDC 750 MG GT ×2 (09:24→20:43)
[2025-05-31] MEDS: CALCIUM CARBONATE 600 MG TABLET GT (09:24)
[2025-05-31] MEDS: ENOXAPARIN SOD INJ 80 MG/0.8 ML SYRINGE 70 MG SC ×2 (09:24→20:44)
[2025-05-31] MEDS: POLYETHYLENE GLYCOL 17 GM PACKET PO (09:24)
[2025-05-31] MEDS: SEVELAMER CARBONATE 0.8 GM PACKET (NON-FORMULARY) GT ×2 (09:25→15:15)
--- NOTE | 2025-05-31 10:01 | ESPR_ITS ---
<Statement entered by Alexandr Easton MD - 05/31/25 16:54> I have reviewed the note and agree with the resident's assessment & plan with exceptions as below. I have personally reviewed labs, imaging, home meds/prior records, examined the patient, formulated and discussed management plan with my attending Patient seen and examined at [facility]. No ON events. Patient has not had any further fevers. Changed his vent settings and transitioned to PS. Decreased patient's oxycodone to 15mg TID and phenobarbitol to 65. Urology stated no urgent surgical procedure at this time as patient still urinating and able to place a hawkins if needed, could have a partial dorsal split on Wednesday 06/06. At this time patient is stable enough to be downgraded to the medical floors. Alexandr Easton PGY2 Disclaimer: Even though this this note was dictated by speech recognition and even though it was carefully revised there may still be minor errors in shotblaster due to voice recognition software. Documentation for date of: 05/31/25 Subjective Subjective Interval history: Interval history: 05/31/25: Overnight heart rate increased to 120s to 130s, respiratory rate also mildly elevated 23-25, systolic BP 130s, all likely secondary to agitation. Vitals stable this morning. No events on telemetry. Patient was seen and examined at bedside this morning. Was drowsy this morning, will decrease phenobarbital to 65 mg every 8 hours and oxycodone to 15 mg 3 times daily. This morning at 7AM, decreased tidal volume and respiratory rate to 370 and 12 respectively, increased pressure support to 12. Repeat VBG at 8 AM showed mild respiratory alkalosis with pH of 7.55, pCO2 31, pO2 144, bicarb 26.6. Upon re- evaulation at 9AM, switched to pressure support with which patient was stable on. Recommend weaning down to blow by as tolerated, if unable patient will need disposition to LTAC. Spoke to patient's mother who preferred facility in [facility]. Spoke with urologist Dr. Vargas regarding phimosis. No medical emergency at this time as patient continues to have good urine output and there is no swelling or erythema around the area. Will consider partial dorsal slit when he return on Wednesday 06/06. Patient will be downgraded today. 05/30/2025: Patient was seen and examined at bedside this morning. No acute overnight events. Patient has been having good urine output. No fevers in the last 24 hours. Patient's heart rate still on the low 100s to 110s. Weaned off Versed drip today to assess mental status and will likely wean down on other medications such as phenobarbital, oxycodone, and Klonopin. Neurology decreased patient's Keppra to 750 twice daily as last EEG did not show any seizure activity. Will speak with urology today concerning patient's phimosis. Patient was noted to have right arm swelling and redness therefore discontinued IV line and got ultrasound of upper extremities bilateral. Did not show any evidence of DVT in the right upper extremity and there was no DVTs on the left upper extremity. 05/29/2025: Patient was seen and examined at bedside this morning. No acute overnight events. Patient did not spike any fevers overnight for this morning. Heart rate has been controlled. Most likely patient did have serotonin syndrome as fast improvement fevers, therefore we will keep micafungin only for today and will likely discontinue tomorrow morning. Still on Versed drip, will titrate down and will likely be off sedation by tomorrow. No other complaints at this time. Still retaining some urine and getting frequent bladder scans and straight in and outs successfully. It was again noted that patient's foreskin was not retractable behind the glans of the penis and therefore we will get in contact with urology tomorrow for further recommendations. 05/28/2025: Patient was seen and examined at bedside this morning. No acute events. Patient did not spike any fevers overnight and no WBC spikes. Today patient however did have a rectal temperature of 101 for which Tylenol was given. Hemoglobin dropped from 10.6-8.6 today, but previously patient was around 8. Her still tachycardic and tachypneic. Will go up on oxycodone and will discontinue fentanyl as well as guaifenesin due to possible serotonin syndrome. Started Versed drip and placed on fentanyl. Will start micafungin as patient's left ear culture did grow Meenakshi parapsilosis and could be possible source for fevers. Also ordered cyproheptadine, but unavailable in our pharmacy at this time we will administer was available likely on [place]. Will monitor for further fevers as well as ongoing tachycardia. 05/27/2025: Patient had 2 fevers overnight, up to 104. Resolved with Ibuprofen. Patient received repeat LP yesterday, initial studies unremarkable. Fentanyl titrating down. Propofol remains high, will titrate as tolerated. Changed IV medications to GT when available. Patient tolerated tracheostomy well. 05/26/2025: Patient did not spike any fevers last night. Propofol was decrease to 45, while Fentanyl was maintained at 125. Patient is receiving bladder scans every 4 hours. Most recent in and out catheter revealed 600 cc of urine. Patient will go for tracheostomy today. Neruology will repeat lumbar puncture tonight. Changes to medications: clonazepam 2mg BID to TID, oxycodone 10mg to 15mg TID to try to wean off Fentanyl. Will continue with propranolol as it appears to be working as adjunct. 05/25/2025: Overnight, patient experienced a fever spike of 101.9?F, for which Ibuprofen was administered. Propofol was increased to 50, while Fentanyl was maintained at 125. Urine output over the past 12 hours was 1500cc, with no bowel movement noted. Propranolol 10mg TID was started. Bladder scan every 4 hours to check for urinary retention, if >400cc then straight in and out catheter. Lovonex and tube feeds will be held at midnight in preparation for tomorrow's tracheostomy. Sputum culture grew 2+ yeast, speciation pending. A repeat Cocci serology test was ordered. 05/24/2025: No overnight events. Patient had consistent urine output without the need for straight catheterization. No fever spikes overnight. Remains difficult to titrate down sedatives. Oxycodone 10 mg 3 times daily via G-tube was initiated with goal reducing fentanyl drip. MRI of brain only showed chronic infections, no acute intracranial pathology to explain underlying condition. Resume meropenem due to possibility of resistant Pseudomonas causing sinusitis, will require extended course of antibiotics for completion of treatment. Spoke with family regarding tracheostomy, risks and benefits were explained, family expressed understanding and was agreeable to procedure. General surgery consulted for tracheostomy. 05/23/2025: A continuous EEG was placed at approximately 7:30 PM on 05/22. Overnight, the patient experienced two fever spikes, with a peak temperature of 101.1?F. Patient remained on Propofol 40 mcg/kg/min and Fentanyl 100 mcg/hr. Two doses of Versed were administered for agitation. Patient continues to have increased secretions.Patient had premature ventricular contractions the night before. Repeat labs showed potassium at 5.2, magnesium at 1.9, and phosphorous at 5.5 . Calcium gluconate, breathing treatment, 4 gram of magesium and sevelamer was given. EKG showed sinus tachycardia with QTc 426. Patient also developed acute urine retention, with a bladder scan showing 700 cc. A Hawkins catheter was inserted due to leakage from the previous catheter and noted post- void retention. Patient had approximately 2000 cc of urine output overnight. Since patient's output is more than his input, tube feed water flushes were increased from 45 to 55 cc. Patient had one bowel movement this morning. Hawkins was removed this morning, and straight cath in and out will continue if the patient continues to experience urinary retention. EEG was reviewed by Dr. Lang, who confirmed that there were no signs of status epilepticus or seizures. Plan to do MRI of the brain next. Increased phenobarbital and clonazepam doses. Will work on weaning down propofol as patient's triglycerides are 385. Heparin was switched to Lovenox. 05/22/2025: Overnight, the patient developed fever spikes, with the highest reaching 101?F. Cooling measures were ineffective, and Ibuprofen was administered. In response to the patient's condition, fentanyl was increased from 100 mcg to 150 mcg, and propofol was increased from 35 mcg to 40 mcg. Urine output over the past 12 hours was 1100 cc. Given the recurrence of fevers and signs of hypersympathetic activity, the phenobarbital dosage was increased to 130 mg every 6 hours, up from every 8 hours. C. diff PCR testing is pending for loose stools. The patient has been receiving Versed every 5 minutes for seizure- like activity until it resolves. The ICU team held an extensive discussion with the patient?s parents regarding the next steps, which include transferring the patient to a facility capable of continuous EEG monitoring while weaning off sedation, as the patient continues to experience persistent seizures. Last day of meropenem to complete 10 day course. 05/21/2025: Overnight, patient developed two fever spikes, with a maximum temperature of 102.6?F. Fevers were managed with Tylenol and cooling measures. Hawkins catheter was removed and replaced with a QiVi external catheter, with urine output of 1,650 cc over the past 12 hours. Propofol was increased from 30 to 35 mcg/kg/min due to agitation and the patient breathing over the ventilator, while fentanyl maintained at 150 mcg/hr. No bowel movement was reported overnight. Neurology agreed with gradual weaning of sedation as tolerated. EEG is scheduled for Friday, 05/23, and daily EEG monitoring is not required. Ear culture returned with Meenakshi, likely from normal hamilton from the ear swab. Ears were examed with otoscope. Right ear unremarkable. Left ear canal with clear liquid, like from ofloxacin ear drops. Reduced phenobarbital to 130 mg every 8 hours and clonazepam to 1mg BID. Versed 2 mg IV is available as needed for agitation. Continue meropenem. Fungal culture of ear culture grew Meenakshi, likely representing normal hamilton from the ear swab. Patient exhibited green penile discharge following hawkins removal. A chlamydia and gonorrhea test was ordered. Right arm is warm and tense to touch from IV infiltration, IV was removed and placed in distal part of the right forearm. 05/20/2025: Overnight, patient had a fever spike of 101.2F. Patient remained on Propofol 40 and Fentanyl 150 for sedation. Precedex was not needed for agitation. Urine output was 2800 cc in the past hours with no gross hematuria. No bowel movement. Patient?s phenobarbital dose was adjusted to 260 mg every 8 hours. Keppra dose was increased to 1000 mg twice daily as per the neurologist?s recommendation. An EEG revealed electrographic seizure activity. A repeat sputum culture was obtained due to contamination of the previous sample. Additionally, a gradual wean of propofol and fentanyl was initiated as tolerated. 05/19/2025: Overnight, patient had a fever spike of 102.2?F. Due to agitation, the Versed infusion was increased from 4 mg/gtt to 8mg/gtt. Patient was also receiving Propofol 30 and Fentanyl 150. Patient had one bowel movement and produced 1L of urine over the past 12 hours, with no evidence of gross hematuria. Versed 4 mg gtt was titrated up to 8mg gtt for patient's agitation. Patient was on Propofol 30 and Fentanyl 150. Patient had one bowel movement. Urine output was 1L in the past 12 hours with no gross hematuria. This morning, clonazepam 2 mg PO TID was initiated, Propofol infusion was increased to 50 mcg/kg/min, and fentanyl was maintained at 50 mcg/hr. The versed infusion was discontinued, and Meropenem was restarted to treat Pseudomonas pneumonia, since the patient continued to spike fevers despite discontinuation of the medication. Sputum culture and EEG will be repeated. Heparin was restarted for DVT PPX. 05/18/2025: Overnight, patient remained on Propofol 30 and Fentanyl 300, with Versed 2mg dose x1. Magnesium was given for bronchodilation. Ibuprofen given for fever. Plan was to wean off sedation and extubate the patient today, but due to significant oral secretions and concerns about potential aspiration and the patient's inability to protect the airway, the decision was made to keep the patient intubated for now. A spontaneous breathing trial was attempted, and the patient?s lungs are functioning well. However, given the ongoing agitation, sedation could not be reduced. Phenobarbital dose was increased from 130mg to 260mg every 6 hours, and a 4mg Versed drip was started. Olanzapine was discontinued, and both doxycycline and meropenem were stopped due to concerns of a potential drug reaction, as fever spikes worsened after the initiation of meropenem on 05/12. Heparin was restarted yesterday for a DVT in the left brachial vein but was discontinued this morning due to ongoing hematuria without clots. A follow-up Doppler will be performed in 2-3 days to assess whether the DVT has resolved. Patient?s urine output was 2240cc over the past 12 hours. Maintenance fluids were started at 100ml/hr to manage the increased urine output. ICU team spoke with the patient's mother today, providing updates on the changes in the medication regimen and the patient's current status. Informed her that this is Day 9 of intubation, and there are four more days to attempt extubation before considering a tracheostomy. TSH, EBV, and CMV panels were ordered for further evaluation. 05/17/2025: Overnight,patient was placed on droplet precautions due to positive rhinovirus and human metapneumovirus. Patient received a 4 mg dose of Versed for agitation. Heparin drip was initiated for an upper extremity DVT but was paused at 12:15 AM due to hematuria without clots. Urine output was approximately 170 cc/hr, and the patient had two bowel movements since yesterday. Today, the patient underwent bronchoscopy and tolerated the procedure well, with stable gas exchange observed. To facilitate weaning off fentanyl and propofol, the patient was started on phenobarbital 13 mg and oxycodone 10 mg scheduled TID. Will consider adding Precedex to further support the weaning process and work towards extubation tomorrow. Heparin drip for the DVT has been restarted as the hematuria is improving. Additionally, 1L of IV LR was administered to address hyperkalemia and hyperphosphatemia on AM labs. Plan is to remove the Hawkins catheter tomorrow, 05/18. 05/16/2025: Overnight, patient experienced intermittent spasmodic jerking episodes, lasting about 15-20 minutes at a time. During these episodes, the patient becomes tachycardic and febrile. Baclofen 10mg was administered, followed by a single dose of midazolam 2mg IV for agitation. Patient remains on fentanyl 100 mcg/hr and propofol 50 mcg/kg/min for sedation. Patient spiked a fever of 102.6?F, for which IV tylenol was given. A subsequent temperature of 102.4?F was treated with ibuprofen. The Hawkins catheter was replaced overnight. Urine output over the past 12 hours was approximately 850 mL. Patient has not had a bowel movement since 05/13, will add miralax. Due to persistent fevers, doxycycline 100 mg IV BID was initiated for gram-positive cocci coverage. Blood cultures will be repeated, and a right upper quadrant ultrasound has been ordered to evaluate for potential hepatobiliary source of infection. Liver enzymes are improved from yesterday. Planned Interventions: Initiate phenobarbital 130 mg IV every 6 hours and begin weaning off propofol. Increased olanzapine from 5 mg GT QHS to 5 mg TID. Perform bilateral upper extremity ultrasound to assess for DVT. Repeat UA, CXR, CT head and abd/pelvis. Check lipase levels. 05/15/2025: Overnight, the patient developed a fever of 101.8?F. PO acetaminophen was switched to IV formulation by the night team. Temperature improved to 99.5?F by morning. Urine output over the past 12 hours was approximately 620 cc. Liver enzymes continue to trend upward, will hold acetaminophen for now. Patient was weaned off midazolam infusion today. Plan is to begin tapering propofol next. Antipsychotic regimen was adjusted from quetiapine to olanzapine to minimize risk of QTc prolongation. Repeat chest X- ray showed improvement in bilateral pneumonia. Bronchoscopy was performed yesterday (05/14). Repeat procedure is being considered for 05/16. Increase in WBCs and fever likely from bronchoscopy. 05/14/2025: No acute events overnight. Stable on versed/ fentanyl and propofol. No vasopressor requirements. Patient underwent bronchoscopy, well tolerated. Gas exchange stable. PPeak remains in mid20s. Patient on minimal FiO2 and PEEP now. Good ventilator synchrony. Continues to have heavy drooling and output form upper airway. Minimal from ETT now. 05/13/2025: Patient increased FiO2 overnight to 100%. Difficulty managing secretions. Bleeding from nose and plugging. Agitated with maximal dose of precedex and benadryl pushes. Patient with low grade temp to 100.4F. Mild secretions from ETT, pink/ frothy. 05/12/2025: Patient weaned down on sedation. Tmax 102 degrees at 1600 hrs. 05/11. Patient developed mild hepatitis, likely response to medications, will monitor. Patient successfully weaned off of propofol and fentanyl, Precedex initiated. Patient extubated, placed on high flow. Continues to have high secretions, treated with chest PT, oral suctioning as needed, ipratropium breathing treatments scheduled. Patient notably agitated, treating with Benadryl as needed and Precedex drip. Will continue to try and decrease sedation while maintaining patent airway. Sputum culture grew thurman resistant Pseudomonas, meropenem initiated. Will continue Levaquin for now pending cultures. Ear cultures taken. Patient maintaining good urine output, will replete volume if patient exceeds greater than 2 L output. 05/11/2025: Overnight, the patient became increasingly agitated and was observed biting on the endotracheal tube. In response, propofol was increased from 40 mcg/kg/min to 45 mcg/kg/min, and fentanyl was increased from 200 mcg/hr to 250 mcg/hr. The plan is to attempt weaning the patient off sedation today, and work towards extubation. A lumbar puncture was performed, which showed 3 WBCs. Infection from meningitis is less likely, but culture results are pending for confirmation. Today, the patient has been experiencing a low-grade fever, with the highest recorded temperature being 100.4?F. After the Hawkins catheter was placed, the patient had 1700 cc of urine output over the past 12 hours. Followed up with Dr. Jacky Cuadra (ENT in [place]). Dr. Cuadra stated that there is nothing additional he could identify on the CT imaging that the radiologist has not already seen. And that if there was something it would likely be surgical and he does not perform surgeries. He recommended covering for Pseudomonas with clindamycin and Unasyn. The plan is to start levofloxacin for Pseudomonas coverage as well. Additionally, Dr. Cuadra suggested culturing the ear. 05/10/2025: Patient remained sedated with propofol and fentanyl throughout the night, maintaining adequate sedation levels. Around 2 AM, the propofol dose was reduced due to MAP in the 60s. 1L of LR was administered on top of the ongoing IV maintenance fluids at 100cc/hr. Following this, the MAP remained stable above 65. At 6:50 PM on 05/09, an ABG revealed a pH of 7.28, pCO2 of 55, and pO2 of 70, indicative of respiratory acidosis. Patient was given 5 grams of magnesium and 15 mg of albuterol over the course of an hour to promote bronchodilation. Magnesium also needed to be repleted. A repeat ABG showed normalization of the respiratory parameters. Patient's Hawkins catheter was removed and replaced with a QiVi catheter overnight per the patient's father?s request. However, the patient developed urinary retention. A bladder scan performed at 6 AM showed 295cc of retained urine, and a subsequent scan in the afternoon revealed 439cc. Primary team consulted ICU team. On 05/09, two rapid responses were initiated due to the patient?s escalating agitation and anxiety. Patient appeared to be in significant pain from his paraphimosis. The primary team consulted the ICU for further management, as the patient had already received diazepam, haldol, versed, and dilaudid earlier that morning, with inadequate relief. Additionally, there was concern over a decline in his pO2 levels. The initial ABG at 11:56 showed: pH 7.40, pCO2 40, pO2 131, HCO3 25. A repeat ABG at 13:40 revealed: pH 7.27, pCO2 43, pO2 53, HCO3 20. Upon evaluation by the ICU team, the patient was noted to be extremely agitated and wearing an oxygen mask, with audible gurgling sounds coming from the upper airway, raising concern for potential airway compromise. Given the risk of inadequate airway protection, the decision was made to transfer the patient to the ICU for intubation and further management. In the ICU, the patient was intubated. Urology, Dr. Vargas, was consulted earlier in the day. He was able to successfully perform a reduction of the paraphimosis. Telemetry Course: Patient was admitted to telemetry for further workup and management of sepsis of unknown source, with concern for meningitis. Empiric broad-spectrum antibiotic and antiviral therapy were started, consisting of ceftriaxone 2g IV twice daily, vancomycin (pharmacy to dose), ampicillin, and acyclovir. Neurology was consulted. CT of the orbit, sella, and inner ear was ordered given the patient?s history of acute mastoiditis, which showed severe bilateral chronic mastoiditis, bilateral otitis externa, bilateral otitis media, and bilateral cholesteatomas in the attics. CT head was also performed and was negative for acute hemorrhage, mass effect, or midline shift. Findings included prominent sphenoid, ethmoid, and maxillary antral sinusitis, bilateral chronic mastoiditis, bilateral otitis media, and opacification in the bilateral attics. For the patient?s seizures, his home medications of valproic acid and levetiracetam were restarted. Orders for midazolam and Haldol were placed as needed for breakthrough seizures and agitation. An ice pack was ordered for his paraphimosis. Infectious disease was also consulted. History of Present Illness: 24-year-old male with a past medical history significant for cerebral palsy, asthma, seizure disorder, chronic mastoiditis (previously treated with tympanostomy tube placement for recurrent otitis media, now removed), recurrent pneumonia, and chronic PEG tube dependence, presented to the ED on 05/08/2025 with a fever lasting over 24 hours. The patient also had a witnessed seizure episode lasting 5-10 seconds, characterized by tonic-clonic activity confined to the left side of the body. ED Course: -Initial vitals were: BP 122/84, HR 176, RR 26, T 105F, O2 sat 96% on room air. -Labs significant for: CBC showed a WBC of 16.3. CMP showed Na 148, K 5.2, Cl 107, bicarbonate 18.7, anion gap 22, creatinine 1.3 (baseline 0.7), lactic acid 3.2, alkaline phosphatase 120, LDH 352, total CK 1048, procalcitonin: 0.14. Urinalysis negative. Influenza A/B testing was negative. -Imaging included: EKG showed supraventricular tachycardia of HR [address] and T-wave abnormality. CXR showed no aspiration pneumonia but was noted to be of poor inspiratory effort. CT CAP w/o contrast seemed to show no gross infiltrates or other notable findings but was noted to be severely degraded by patient motion. -In the ED, patient was given acetaminophen 975 mg, ceftriaxone 1 gram IV, midazolam 2 mg IV x1, albuterol 2.5 mg, Zosyn 3.375 gram, 2 L NS fluid infusion, and 1 L LR fluid infusion. In the ED, the patient was agitated and pulled out his IV. Attempts at peripheral access were unsuccessful, and a right femoral central line was placed. Exam Vital Signs Temp Pulse Resp BP Pulse Ox O2 Del Method O2 Flow Rate 98.7 F 122 H 15 126/73 100 Mechanical Ventilation 35 05/31/25 08:00 05/31/25 09:00 05/31/25 09:00 05/31/25 09:00 05/31/25 09:00 05/31/25 09:00 05/16/25 12:00 FiO2 30 05/31/25 09:00 Narrative Exam General: Sedated and trached, awake and in no acute distress. HEENT: NCAT, EOMI, Pupils reactive KARLO, not icteric, Bilateral inferior eye scleral hemorrhage. External ears normal. No rhinorrhea. Moist mucous membranes. Neck: Supple, full range of motion, no observable masses, No meningeal sign. Heart: Tachycardic. Regular rate and rhythm, normal S1 and S2, no murmurs appreciated. Lungs: Coarse breath sounds bilaterally, no respiratory distress. Abdomen: Soft, nondistended, nontender, positive bowel sounds. No guarding or rebound tenderness. PEG tube in place. MSK: No lower extremity edema no redness, peripheral pulses presents, Contracted and swollen hands. Neurologic: Unable to assess due to patient's medical condition, pupils reactive : Foreskin unretractable, no discharge appreciated Skin: No petechiae, lesions, ecchymosis. Mild erythema, blanching and warm rash in RUE, around armpit area. Objective Labs 06/05/25 05:16 06/05/25 05:16 Labs: Laboratory Results - last 24 hr 05/26/25 05/31/25 05/31/25 19:30 04:34 08:06 WBC 10.6 RBC 3.08 L Hgb 8.5 L Hct 26.1 L MCV 85 MCH 27.6 MCHC 32.6 RDW Std Deviation 46.7 H Plt Count 529 H D Neut % (Auto) 61 Lymph % (Auto) 22 Candler % (Auto) 10 Eos % (Auto) 5 Baso % (Auto) 1 Neut # (Auto) 6.5 Lymph # (Auto) 2.3 Candler # (Auto) 1.0 H Eos # (Auto) 0.6 H Baso # (Auto) 0.1 Immature Gran # (Auto) 0.16 H Absolute Nucleated RBC 0.00 Immature Gran % 2 H Nucleated RBC % 0 VBG pH 7.55 VBG pCO2 31 L VBG pO2 144 H VBG O2 Sat (Maryam) 101 H VBG Base Excess 5 H Sodium 138 Potassium 4.4 Chloride 99 Carbon Dioxide 26.6 Anion Gap 12 BUN 13 Creatinine 0.5 L Estim Creat Clear Calc 182.2 eGFR > 60 BUN/Creatinine Ratio 26 H Glucose 121 H Calculated Osmolality 276 Calcium 9.9 Corrected Calcium 10.0 Phosphorus 6.5 H Magnesium 1.7 Total Bilirubin 0.4 AST 41 H ALT 63 H Alkaline Phosphatase 280 H D Total Protein 6.7 Albumin 3.9 Globulin 2.8 Albumin/Globulin Ratio 1.4 CSF Oligoclonal Bands ABSENT CSF Angiotensin Conv Enz <5 ABG Interpretation ABG results: 05/09/25 05/09/25 05/09/25 11:56 13:40 18:50 ABG pH 7.40 7.27 L D 7.28 L ABG pCO2 40 43 55 H D ABG pO2 131 H 53 L* D 70 L ABG HCO3 25 20 26 ABG O2 Saturation 99 H 81 L 92 ABG Base Excess 0 -7 L -2 VBG pH VBG pCO2 VBG pO2 VBG Base Excess 05/10/25 05/11/25 05/12/25 00:14 05:06 01:18 ABG pH 7.35 7.33 L 7.39 ABG pCO2 42 D 54 H D 48 ABG pO2 103 D 93 94 ABG HCO3 23 28 H 29 H ABG O2 Saturation 99 H 98 98 ABG Base Excess -3 2 3 VBG pH VBG pCO2 VBG pO2 VBG Base Excess 05/12/25 05/12/25 05/13/25 03:58 11:50 05:10 ABG pH 7.46 H 7.39 7.19 L* D ABG pCO2 41 48 60 H D ABG pO2 105 58 L* D 114 H D ABG HCO3 29 H 29 H 23 ABG O2 Saturation 99 H 90 L 98 ABG Base Excess 5 H 4 H -6 L VBG pH VBG pCO2 VBG pO2 VBG Base Excess 05/17/25 05/18/25 05/19/25 01:30 04:09 04:43 ABG pH 7.38 7.43 7.47 H ABG pCO2 46 44 43 ABG pO2 90 83 80 L ABG HCO3 27 H 29 H 31 H ABG O2 Saturation 98 97 97 ABG Base Excess 2 5 H 7 H VBG pH VBG pCO2 VBG pO2 VBG Base Excess 05/21/25 05/21/25 05/31/25 04:18 06:33 08:06 ABG pH 7.37 D 7.46 H ABG pCO2 50 H 38 D ABG pO2 40 L* D 121 H D ABG HCO3 29 H 27 H ABG O2 Saturation 66 L 100 H ABG Base Excess 3 3 VBG pH 7.55 VBG pCO2 31 L VBG pO2 144 H VBG Base Excess 5 H Quality Measures Quality Measures VTE prophylaxis (SCDs) and sepsis Current suspected stage: ruled out Possible source: pulmonary Blood cultures ordered: yes Antibiotic ordered: No Assessment & Plan Assessment Current Active Medications: Generic Name Dose Route Start Last Admin Trade Name Freq PRN Reason Stop Dose Admin Acetaminophen 650 mg 05/28/25 10:36 Acetaminophen Racquel 325 Mg/10 Ml Udc NG 06/27/25 10:35 Q4HR PRN fever >100.4 Albuterol/Ipratropium 3 ml 05/09/25 18:19 05/28/25 06:34 Albuterol/Ipratropium (Duoneb) Rt Racquel 3 Ml Nebu INH 06/08/25 18:18 3 ml Q2HR PRN Administration SHORTNESS OF BREATH OR WHEEZE Calcium Carbonate 600 mg 05/20/25 18:20 05/31/25 09:24 Calcium Carbonate 600 Mg Tablet GT 06/19/25 18:19 600 mg QDAY KYA Administration Clonazepam 2 mg 05/26/25 14:00 05/31/25 05:34 Clonazepam 0.5 Mg Tablet PO 05/31/25 13:59 2 mg TID KYA Administration Enoxaparin Sodium 70 mg 05/30/25 21:00 05/31/25 09:24 Enoxaparin Sod Inj 80 Mg/0.8 Ml Syringe SC 06/13/25 20:59 70 mg BID KYA Administration Lansoprazole 30 mg 05/28/25 09:00 05/31/25 09:24 Lansoprazole 30 Mg Tab.Rap. GT 06/27/25 08:59 30 mg QDAY KYA Administration Levetiracetam 750 mg 05/30/25 09:00 05/31/25 09:24 Levetiracetam Liqd 500 Mg/5 Ml Udc GT 06/29/25 08:59 750 mg BID KYA Administration Midazolam HCl 1 mg 05/30/25 18:49 Midazolam Inj 1 Mg/Ml Vial 2 Ml IVP 06/04/25 18:48 Q3HR PRN AGITATION OR ANXIETY Ofloxacin 5 drop 05/21/25 14:45 05/31/25 09:26 Ofloxacin Op Racquel 0.3% 5 Ml Btl BOTH EARS 05/31/25 14:44 Not Given BID KYA Ondansetron HCl 4 mg 05/27/25 14:37 Ondansetron Odt 4 Mg Tabrap GT 06/26/25 14:36 Q6HR PRN NAUSEA OR VOMITING Protocol Oxycodone HCl 15 mg 05/31/25 14:00 Oxycodone Hcl 5 Mg Ir Tab PO 06/05/25 13:59 TID KYA Phenobarbital 64.8 mg 05/31/25 14:00 Phenobarbital 32.4 Mg Tablet GT 06/14/25 13:59 Q8HR KYA Polyethylene Glycol 17 gm 05/16/25 09:15 05/31/25 09:24 Polyethylene Glycol 17 Gm Packet PO 06/15/25 09:14 17 gm QDAY KYA Administration Sevelamer Carbonate 0.8 gm 05/27/25 08:00 05/31/25 09:25 Sevelamer Carbonate 0.8 Gm Packet (Non-Formulary) GT 06/26/25 07:59 0.8 gm TIDWM KYA Administration Sodium Chloride 3 ml 05/17/25 11:43 Sodium Chloride Rt Racquel 0.9% 3 Ml Nebu INH 06/16/25 11:42 PRN PRN SOLN Valproic Acid 250 mg 05/27/25 18:00 05/31/25 05:35 Valproic Acid Syrup 250 Mg/5 Ml Udc GT 06/26/25 17:59 250 mg Q8HR KYA Administration Plan 24-year-old male with cerebral palsy, asthma, seizure disorder, chronic mastoiditis, recurrent pneumonia, and chronic PEG tube dependence presented with fever and seizure, was admitted for sepsis workup, and later transferred to the ICU for intubation due to concerns about airway protection. Neurology #Agitated delerium #Serotonin Syndrome? Patient was extremely agitated before ICU admission, likely due to pain from paraphimosis. Patient initially sedated with propofol and fentanyl, titrated to Precedex with Benadryl before extubation. Patient failed extubation and was intubated on 05/12. Propofol and fentanyl was restarted. Still spiking fevers and tachycardic, possible serotonin syndrome Diagnostic Test: - EEG did not show seizure activity per neurology. - MRI brain 05/23: showed chronic infections, no acute pathology. Treatment Plan: - decreased Phenobarbital 64.8 mg Q8H, continue weaning as tolerated - Clonazepam 2 mg TID. - Decrease oxycodone to 15 mg TID. - off Versed drip - Neurology consulted, appreciate recommendations. #History of seizures #Cerebral palsy - Temperature of 105F on admission. - EEG 05/11 unremarkable - Repeat EEG 05/20: electrographic seizure activity. - Persistent fever spikes. - Continuous EEG 05/22-05/23: no seizure activity or status epilepticus. Treatment Plan: - Levetiracetam 750 mg BID. - Valproic acid 187.5 mg Q6H. - Adjust seizure medications if breakthrough seizures recur - Seizure precautions. - Aspiration precautions. -Neurology on board, appreciate recs Cardiovascular #Sinus tachycardia (improving) DDx: fevers vs hypersympathetic activity. 05/31: persistent without fevers, possibly secondary to dehydration. Had 3 large episodes of urinary incontinence overnight per nurse. Diagnostic Test: - Fever spikes associated with tachycardia, tachypnea Treatment Plan: - Will give 500 cc NS fluids, continue to monitor HR - Avoid medications that may precipitate serotonin syndrome including guaifenesin and fentanyl - No specific treatment required at this time. Infectious disease workup remains unrevealing. Unsure of the cause of fever spikes which are associated with tachycardia and tachypnea. - Continue close cardiac monitoring. - Monitor electrolytes and replete as needed. - Maintain Mg > 2 and K > 4 to reduce arrhythmia risk. Respiratory #Failed extubation 05/12 #Acute hypoxic respiratory failure s/p tracheostomy Diagnostic Test: - CXR 05/11: Mild bilateral perihilar pneumonia. To assess for ventilator associated pneumonia. Not much change from 05/09 CXR. - Resistant Pseudomonas from ETT secretions previously (05/09). - CXR 05/19: Significant bilateral pneumonia. Repeat Cocci serology test was negative - 05/20 sputum culture grew meenakshi Treatment Review (completed): - Patient extubated to [facility] 05/12, chest film with centro-bronchovascular congestion and multifocal pneumonia. - Reintubated overnight 05/13- VC/AC PPeak 20 PEEP 5 FiO2 40%. - Patient underwent bronchoscopy on 05/14 and 05/17 for secretions, well tolerated. - Patient underwent tracheostomy on 05/26/2025 - Meropenem (05/12-05/17, 05/19-05/22, for a total of ten days). Treatment Plan: - DC'd micafungin 100mg qday 05/28-05/30 - Chest physiotherapy daily #Bronchospasm #History of asthma Diagnostic Test: - Although the patient has a history of asthma, the bronchospasm is most likely from the irritant effect of blood in the airway. A small amount of blood, which was likely from dryness of the nasal mucosa, was suctioned out during intubation. Treatment Plan: - Magnesium for bronchodilator effect as needed. - Albuterol and Ipratropium as needed. GI, , F/E/N #Chronic PEG tube dependence Treatment Plan: - Transitioned to Nepro 1.8 at 35 mL/hr x 24 hrs via PEG tube by pump (goal). If no IV fluids, water flushes of 55 mL/hr - ProStat 30ml BID via PEG tube. - Appreciate valve tester recommendations. - Triglyceride level 05/14 - 290; 05/17 - 312; 05/20 - 221; 05/26 - 275. #Hepatitis (improving) Likely due to meropenem or tylenol that could potentially cause hepatotoxicity. Diagnostic Test: - Gallbladder ultrasound 05/16: Normal gallbladder, no gallstones. Fatty infiltration throughout the liver. - Lipase 05/16: 41 wnl. Treatment Plan: - Continue daily LFTs. - Will reassess if transaminases continue to rise or clinical status changes. #Acute urinary retention (resolved) Treatment Plan - Monitor urine output, replace fluid if needed. - Hawkins removed 05/23 - Every 4 hour bladder scan and straight cath as needed for >400cc. #Hypoalbuminemia (resolved) Likely due to acute hepatitis Diagnostic Test: - UA had urine proteins 1+. - Albumin 4.9 -->3.3 -->2.8 --> 3.2 --> 3.4 --> 2.8 --> 2.5---> 4--->3.9. Treatment Plan: - Maintain on PEG tube feeds per valve tester recommendations. #Paraphimosis (resolved) #Balanitis (resolved) #Phimosis Diagnostic Test: - Edema and tenderness of the glans penis. - Swelling of the distal retracted foreskin. - Constricting band of tissue proximal to the head of the penis at the coronal sulcus. - Hawkins was removed on 05/09 and transitioned to Oivi external urinary catheter. Discussed with family about the need to reinsert hawkins due to the patient's acute urinary retention. Family were in agreement with this plan. Hawkins was reinserted on 05/10 due to urinary retention. Hawkins changed and replaced on 05/16. - S/p reduction of the paraphimosis by Dr. Vargas on 05/09. - 05/29/2025 Patient noticed to have unretractable foreskin Treatment Plan: - Pending urology recs - Control patient's pain with sedation. - Monitor urine output. Renal #Hyperkalemia (resolved) #Hyperphosphatemia DDx: acute kidney injury vs hemolysis vs rhabdomyolysis. Treatment Plan: - Monitor BMP and phosphorus. - Monitor potassium levels to avoid arrhythmias. - Sevelamer 800 milligram GT 3 times daily, adjust if needed. - Adjusted diet as above #Acute kidney injury (resolved) DDx: dehydration or vasodilation from sepsis. Diagnositc Test: - Creatinine 0.5 Treatment Plan: - Continue with free water flushes. - Daily renal panel to trend BUN, Cr, and electrolytes. - Avoid nephrotoxins. - Renally dose meds as appropriate. - Strict I&Os, monitor urine output closely. - Monitor for signs of volume overload or uremic symptoms. #Anion Gap Metabolic Acidosis (resolved) #Lactic acidosis (resolved) DDx: seizures vs sepsis vs acute kidney injury vs hypoperfusion. Likely from seizures as patient has no signs of systemic hypoperfusion such as skin mottling, decreased cap refills. Diagnostic Test: - Admission anion gap 22, lactic acid 16.0, bicarbonate 18.7. #Rhabdomyolysis (resolved) DDx: seizures vs hyperthermia vs infectious myositis. Diagnostic Test: - CK 1048 --> 3743 --> 1654 --> 338 --> 363. - Witnessed seizure episode lasting 5-10 seconds, characterized by tonic-clonic activity prior to admission. Treatment Plan: - Continue free water flushes at 35 cc/hr. - Monitor urine output. - Correct electrolyte abnormalities. - Control seizures with valproic acid and levetiracetam. - Monitor renal panel. Heme #Acute nonocclusive thrombus in the left brachial vein Diagnostic Test: - Venous doppler study of upper extremities 05/16: Normal right upper extremity deep venous system. Positive for nonocclusive thrombus in the left brachial vein. - Per chart review and patient's parents, patient does not have history of clots. Treatment Review (completed): - Lovenox 30 mg (05-11 - 05/15). - Lovenox 40 mg (05/16). - Heparin loading dose and ggt. Lovenox to heparin due to heparin?s shorter half-life, which allows for more rapid cessation in the event of bleeding, a shorter half life and can be stopped if bleeding occurs. - Stopped heparin ggt due to hematuria on 05/18. Treatment Plan: - Lovenox 70 mg SC BID for DVT treatment - Primary upper extremity deep vein thrombosis, anticoagulation should be continued for a minimum of three months following the initial thrombotic event. #Normocytic Anemia DDx: Anemia of Inflammation vs dilutional anemia vs drug-induced anemia. Likely dilutional anemia since patient had normal hemoglobin on admission and from IV fluids per sepsis protocol. No signs of bleeding. Treatment Plan: - Monitor H&H. - Type and screen. - Transfusing for Hgb <7 or symptomatic. #Thrombocytosis (Resolved) DDx: infection vs reactive Diagnostic Test: - Plt 711---> 352 Treatment Plan: - Monitor CMP. #Leukocytosis (resolved) DDx: likely due to bronchoscopy vs infection of unknown source vs drug induced Diagnostic Test: - Fever free overnight and AM -WBC 8.2 today Treatment Plan: - Treat underlying cause. #Thrombocytopenia (resolved) DDx: Dilutional versus consumption versus increased destruction due to sepsis. Initial decrease is likely due to dilutional in setting of IV fluids, however his WBC and hemoglobin have leveled off platelets have down trended. Diagnostic test: - Platelets: 209 --> 65-->141-->460. Treatment plan: - Monitor daily labs - Avoid excessive oral tracheal suctioning in setting of previous bleed and thrombocytopenia. Endo #no active problems ID #Sepsis #Bilateral chronic mastoiditis #Sinusitis #Bilateral otitis media #Bilateral otitis externa #Meenakshi parapsilosis DDx: meningitis vs acute on chronic mastoiditis vs acute febrile illness. Diagnostic Test: - History of chronic mastoiditis. - Met SIRS criteria on admission: T 105F, HR 176, RR 26, PaCO2 26, WBC 16.3. - 05/08 CT Head: prominent sphenoid ethmoid maxillary antral sinusitis, bilateral chronic mastoiditis, bilateral otitis media. - 05/08 CT Orbit Sella Inner: severe bilateral chronic mastoiditis, bilateral otitis externa and otitis media, bilateral cholesteatomas in the attics. - 05/09 Sputum culture: 1+ thurman resistance Pseudomonas. - 05/10 Lumbar puncture: clear, WBC 3, glucose 70, total protein 25. CSF testing negative. - 05/10 Respiratory viral panel: rhinovirus/enterovirus and human metapneumovirus detected. - 05/12 Bilateral ear culture: E coli ESBL. - UA 05/08 and 05/16 negative. - Blood culture 05/08, 05/11, and 05/16 negative. - 05/16 CXR: worsening diffuse severe left lung pneumonia. - Meenakshi parapsilosis in L ear culture Treatment Review (completed) - Rocephin 2 gm IV q12HR [05/08-05/11]. - Vancomycin dosed by pharmacy [05/08-05/11] since MRSA screen is negative. - Acyclovir 700 mg IV [05/08-05/11] since LP negative. - Fluids: 30mL/kg -- 2 L NS fluid infusion and 1 L LR fluid infusion was given in the ED. - Femoral central line removed 05/11, replaced with peripheral access. - A repeat Cocci serology test was negative Treatment Plan: - Topical oxofloxacin. - DC'd Micafungin 100mg qday 05/28-05/30 Integumentary #Maculopapular rash to the buttocks DDx: contact dermatitis vs allergic dermatitis Treatment Plan - Patient no longer has diaper on. Anticipate rash to improve. Health Maintenance DVT prophylaxis: SCDs, Lovenox 70mg QD GI prophylaxis: Protonix IV Diet: Nepro 1.8 bebe Hawkins: none. Straight cath in/out q4h if urine retention more than 400 ml Lines: Peripherals, PEG tube. Drips: none Code status: Full code Patient plan of care was discussed with the senior resident, Dr. Alvarez, and attending physician, Dr. Armendariz. Mary Lou Cobb DO, PGY-1 Attending Provider Attestation/Addendum Patient seen and examined with the above resident, Mary Lou Cobb DO. I agree with the findings, assessment, and plan of care as document except for any differences below. Patient continues to show improvement with no further fevers. Likely will be prolonged weaning from mechanical ventilation. I will continue to follow along with telemetry. Patient may be amenable to be weaned completely off of mechanical elation which will allow the patient's family ability to continue to delve him more locally. However we did discuss finding that if he does not successfully weaned from mechanical ventilation in the coming days, we would likely require LTAC placement. Patient taken off of antibiotics/antifungals. Most likely etiology of fever in the preceding days was serotonin syndrome with improvement after discontinuation of fentanyl and guaifenesin. Oxycodone and phenobarbital along with Klonopin being used. Will continue to slowly wean these off on the floor. Patient's mentation slowly returning to his baseline as drip discontinued in the preceding days. With a slow taper expected to return to baseline likely in the next 48 to 72 hours but we will continue to reassess. Neurology continues to adjust antiepileptics appropriately as well to facilitate him returning to his baseline mental status. Total critical care time: I personally spent 35 minutes for review of physiologic parameters, directing plan of care throughout the day, coordination of care with other subspecialist, and counseling patient's mother at bedside. This is exclusive of time spent teaching of staff performing separate billable procedures. Patient remained at significant risk for further morbidity and mortality warranting close monitoring care only available in the ICU. Patient requiring critical care services for serotonin syndrome, acute encephalopathy, acute on chronic respiratory failure with hypoxia, and phimosis.
[2025-05-31] MEDS: OFLOXACIN OP SOL 0.3% 5 ML BTL 5 DROP BOTH EARS (10:09)
[2025-05-31] MEDS: oxyCODONE HCL 5 MG IR TAB 15 MG PO ×2 (13:32→20:43)
[2025-05-31] MEDS: SODIUM CHLORIDE 0.9% 500 ML 500 ML 999 ML IV (14:14)
--- NOTE | 2025-05-31 15:00 | PC.SS ---
ICU resident informed [facility]ARPER that patient will be downgraded to Tele floor. Plan will be to attempt to transition patient from ventilator to blow by. Patient in possession of Trach. If unable to transition patient to blow LTAC placement will be the next option.
--- NOTE | 2025-05-31 15:59 | ESPR_ITS ---
<Statement entered by Kamlesh Baer MD - 05/31/25 18:07> Patient seen and examined at bedside. I discussed and supervised with the director internal communications physician who took care of this patient. I personally saw and examined the patient. I agree with most of the assessment and plan. Plan of care discussed with attending Dr. Dang. Kmalesh Baer MD PGY-2 Documentation for date of: 05/31/25 Subjective Subjective Interval history: 24-year-old male with a past medical history significant for cerebral palsy, asthma, seizure disorder, chronic mastoiditis (previously treated with tympanostomy tube placement for recurrent otitis media, now removed), recurrent pneumonia, and chronic PEG tube dependence, presented to the ED on 05/08/2025 with a fever lasting over 24 hours. The patient also had a witnessed seizure episode lasting 5-10 seconds, characterized by tonic-clonic activity confined to the left side of the body. Meningitis was ruled out in ED. 05/09, two rapid responses were initiated due to the patient?s escalating agitation and anxiety. In the ICU, the patient was intubated due to inability to protect airway. Urology, Dr. Vargas, performed a reduction of the paraphimosis. Sputum culture grew thurman resistant Pseudomonas. Patient experienced intermittent spasmodic jerking episodes, lasting about 15-20 minutes at a time. During these episodes, the patient became tachycardic and febrile. Heparin drip for right upper extremity DVT. Multiple EEGs normal. Patient failed extubation due to inability to protect airway. Patient had a tracheostomy on 05/26, well tolerated. Patient placed on pressure support, stable. Recommend weaning down to blow by, consulted urologist Dr. Vargas regarding phimosis, consider partial dorsal slit when he return on Wednesday 06/06. Patient is currently on phenobarbital to 65 mg every 8 hours and oxycodone to 15 mg 3 times daily, titrating down. During the hospital course, Empiric broad-spectrum antibiotic and antiviral therapy of ceftriaxone, vancomycin, ampicillin, and acyclovir for possible meningitis, Meropenem for thurman resistant Pseudomonas pneumonia, micafungin for Meenakshi parapsilosis, doxycycline for gram-positive cocci coverage causing persistent fever. Treatment completed. Patient stable for downgrade to floors, ICU team will continue to follow for vent management. Exam Vital Signs Temp Pulse Resp BP Pulse Ox O2 Del Method O2 Flow Rate 99.8 F 139 H 18 116/69 99 Mechanical Ventilation 35 05/31/25 11:00 05/31/25 14:07 05/31/25 11:00 05/31/25 12:00 05/31/25 14:07 05/31/25 12:00 05/16/25 12:00 FiO2 30 05/31/25 14:07 Narrative Exam General: Sedated and trached, on pressure support ventilation mode, in no acute distress. HEENT: NCAT, EOMI, Pupils reactive KARLO, not icteric, Right inferior eye scleral hemorrhage. External ears normal. No rhinorrhea. Moist mucous membranes. Neck: Supple, full range of motion, no observable masses, No meningeal sign. Heart: Tachycardic. Regular rate and rhythm, normal S1 and S2, no murmurs appreciated. Lungs: Coarse mechanical breath sounds bilaterally, no respiratory distress. Abdomen: Soft, nondistended, nontender, positive bowel sounds. No guarding or rebound tenderness. PEG tube in place. MSK: No lower extremity edema no redness, peripheral pulses presents, Contracted and swollen hands bilateral. Neurologic: Unable to assess due to patient's medical condition, pupils reactive : Foreskin unretractable, no discharge appreciated Skin: No petechiae, lesions, ecchymosis. Right axillary erythema, consistent with phlebitis. Left antecubital dermatitis Objective Labs 06/01/25 04:43 06/01/25 04:43 Labs: Laboratory Results - last 24 hr 05/26/25 05/31/25 05/31/25 19:30 04:34 08:06 WBC 10.6 RBC 3.08 L Hgb 8.5 L Hct 26.1 L MCV 85 MCH 27.6 MCHC 32.6 RDW Std Deviation 46.7 H Plt Count 529 H D Neut % (Auto) 61 Lymph % (Auto) 22 [place] % (Auto) 10 Eos % (Auto) 5 Baso % (Auto) 1 Neut # (Auto) 6.5 Lymph # (Auto) 2.3 [place] # (Auto) 1.0 H Eos # (Auto) 0.6 H Baso # (Auto) 0.1 Immature Gran # (Auto) 0.16 H Absolute Nucleated RBC 0.00 Immature Gran % 2 H Nucleated RBC % 0 VBG pH 7.55 VBG pCO2 31 L VBG pO2 144 H VBG O2 Sat (Maryam) 101 H VBG Base Excess 5 H Sodium 138 Potassium 4.4 Chloride 99 Carbon Dioxide 26.6 Anion Gap 12 BUN 13 Creatinine 0.5 L Estim Creat Clear Calc 182.2 eGFR > 60 BUN/Creatinine Ratio 26 H Glucose 121 H Calculated Osmolality 276 Calcium 9.9 Corrected Calcium 10.0 Phosphorus 6.5 H Magnesium 1.7 Total Bilirubin 0.4 AST 41 H ALT 63 H Alkaline Phosphatase 280 H D Total Protein 6.7 Albumin 3.9 Globulin 2.8 Albumin/Globulin Ratio 1.4 CSF Oligoclonal Bands ABSENT CSF Angiotensin Conv Enz <5 Impressions Impression: -? EKG: supraventricular tachycardia of HR [address] and T- wave abnormality. -? Ultrasound DVT Negative for right upper extremity deep vein thrombosis; previously seen nonocclusive left brachial vein DVT has resolved. -? MRI brain: chronic pansinusitis. -? CSF analysis: unremarkable. -? Head CT: Negative for acute hemorrhage, mass effect or midline shift -? CT chest/abdomen/pelvis: Extensive bilateral pneumonia. Cystitis pattern. Cholelithiasis ABG Interpretation ABG results: 05/09/25 05/09/25 05/09/25 11:56 13:40 18:50 ABG pH 7.40 7.27 L D 7.28 L ABG pCO2 40 43 55 H D ABG pO2 131 H 53 L* D 70 L ABG HCO3 25 20 26 ABG O2 Saturation 99 H 81 L 92 ABG Base Excess 0 -7 L -2 VBG pH VBG pCO2 VBG pO2 VBG Base Excess 05/10/25 05/11/25 05/12/25 00:14 05:06 01:18 ABG pH 7.35 7.33 L 7.39 ABG pCO2 42 D 54 H D 48 ABG pO2 103 D 93 94 ABG HCO3 23 28 H 29 H ABG O2 Saturation 99 H 98 98 ABG Base Excess -3 2 3 VBG pH VBG pCO2 VBG pO2 VBG Base Excess 05/12/25 05/12/25 05/13/25 03:58 11:50 05:10 ABG pH 7.46 H 7.39 7.19 L* D ABG pCO2 41 48 60 H D ABG pO2 105 58 L* D 114 H D ABG HCO3 29 H 29 H 23 ABG O2 Saturation 99 H 90 L 98 ABG Base Excess 5 H 4 H -6 L VBG pH VBG pCO2 VBG pO2 VBG Base Excess 05/17/25 05/18/25 05/19/25 01:30 04:09 04:43 ABG pH 7.38 7.43 7.47 H ABG pCO2 46 44 43 ABG pO2 90 83 80 L ABG HCO3 27 H 29 H 31 H ABG O2 Saturation 98 97 97 ABG Base Excess 2 5 H 7 H VBG pH VBG pCO2 VBG pO2 VBG Base Excess 05/21/25 05/21/25 05/31/25 04:18 06:33 08:06 ABG pH 7.37 D 7.46 H ABG pCO2 50 H 38 D ABG pO2 40 L* D 121 H D ABG HCO3 29 H 27 H ABG O2 Saturation 66 L 100 H ABG Base Excess 3 3 VBG pH 7.55 VBG pCO2 31 L VBG pO2 144 H VBG Base Excess 5 H Quality Measures Quality Measures VTE prophylaxis (SCDs) and sepsis Current suspected stage: sepsis Possible source: pulmonary Blood cultures ordered: yes Antibiotic ordered: Yes Assessment & Plan Assessment Current Active Medications: Generic Name Dose Route Start Last Admin Trade Name Freq PRN Reason Stop Dose Admin Acetaminophen 650 mg 05/28/25 10:36 Acetaminophen Racquel 325 Mg/10 Ml Udc NG 06/27/25 10:35 Q4HR PRN fever >100.4 Albuterol/Ipratropium 3 ml 05/09/25 18:19 05/28/25 06:34 Albuterol/Ipratropium (Duoneb) Rt Racquel 3 Ml Nebu INH 06/08/25 18:18 3 ml Q2HR PRN Administration SHORTNESS OF BREATH OR WHEEZE Calcium Carbonate 600 mg 05/20/25 18:20 05/31/25 09:24 Calcium Carbonate 600 Mg Tablet GT 06/19/25 18:19 600 mg QDAY KYA Administration Enoxaparin Sodium 70 mg 05/30/25 21:00 05/31/25 09:24 Enoxaparin Sod Inj 80 Mg/0.8 Ml Syringe SC 06/13/25 20:59 70 mg BID KYA Administration Lansoprazole 30 mg 05/28/25 09:00 05/31/25 09:24 Lansoprazole 30 Mg Tab.Mary. GT 06/27/25 08:59 30 mg QDAY KYA Administration Levetiracetam 750 mg 05/30/25 09:00 05/31/25 09:24 Levetiracetam Liqd 500 Mg/5 Ml Udc GT 06/29/25 08:59 750 mg BID KYA Administration Midazolam HCl 1 mg 05/30/25 18:49 Midazolam Inj 1 Mg/Ml Vial 2 Ml IVP 06/04/25 18:48 Q3HR PRN AGITATION OR ANXIETY Ondansetron HCl 4 mg 05/27/25 14:37 Ondansetron Odt 4 Mg Tabrap GT 06/26/25 14:36 Q6HR PRN NAUSEA OR VOMITING Protocol Oxycodone HCl 15 mg 05/31/25 14:00 05/31/25 13:32 Oxycodone Hcl 5 Mg Ir Tab PO 06/05/25 13:59 15 mg TID KYA Administration Phenobarbital 64.8 mg 05/31/25 14:00 05/31/25 13:31 Phenobarbital 32.4 Mg Tablet GT 06/14/25 13:59 64.8 mg Q8HR KYA Administration Polyethylene Glycol 17 gm 05/16/25 09:15 05/31/25 09:24 Polyethylene Glycol 17 Gm Packet PO 06/15/25 09:14 17 gm QDAY KYA Administration Sevelamer Carbonate 0.8 gm 05/27/25 08:00 05/31/25 15:15 Sevelamer Carbonate 0.8 Gm Packet (Non-Formulary) GT 06/26/25 07:59 0.8 gm TIDWM KYA Administration Sodium Chloride 3 ml 05/17/25 11:43 Sodium Chloride Rt Racquel 0.9% 3 Ml Nebu INH 06/16/25 11:42 PRN PRN SOLN Valproic Acid 250 mg 05/27/25 18:00 05/31/25 13:32 Valproic Acid Syrup 250 Mg/5 Ml Udc GT 06/26/25 17:59 250 mg Q8HR KYA Administration Plan 24-year-old male with a past medical history significant for cerebral palsy, asthma, seizure disorder, chronic mastoiditis (previously treated with tympanostomy tube placement for recurrent otitis media, now removed), recurrent pneumonia, and chronic PEG tube dependence, presented to the ED on 05/08/2025 with a fever lasting over 24 hours. Patient treated in ICU after intubation for inability to protect airway, received tracheostomy during this time, stable for downgrade to floors. #Paraphimosis (resolved) #Balanitis (resolved) #Phimosis Diagnostic Test: - Edema and tenderness of the glans penis. - Swelling of the distal retracted foreskin. - Constricting band of tissue proximal to the head of the penis at the coronal sulcus. - Hawkins was removed on 05/09 and transitioned to Oivi external urinary catheter. Discussed with family about the need to reinsert hawkins due to the patient's acute urinary retention. Family were in agreement with this plan. Hawkins was reinserted on 05/10 due to urinary retention. Hawkins changed and replaced on 05/16. - S/p reduction of the paraphimosis by Dr. Vargas on 05/09. - 05/29/2025 Patient noticed to have unretractable foreskin Treatment Plan: - Pending possible partial dorsal slit when urologist returns on Wednesday 06/06 - Control patient's pain with sedation, titrate down. - Monitor urine output. #Agitated delerium #Serotonin Syndrome? Patient was extremely agitated before ICU admission, likely due to pain from paraphimosis. Patient initially sedated with propofol and fentanyl, titrated to Precedex with Benadryl before extubation. Patient failed extubation and was intubated on 05/12. Propofol and fentanyl was restarted. Still spiking fevers and tachycardic, possible serotonin syndrome Diagnostic Test: - EEG did not show seizure activity per neurology. - MRI brain 05/23: showed chronic infections, no acute pathology. Treatment Plan: - decreased Phenobarbital 64.8 mg Q8H, continue weaning as tolerated - Clonazepam 2 mg TID. - Decrease oxycodone to 15 mg TID. - off Versed drip - Neurology consulted, appreciate recommendations. - Avoid medications that may precipitate serotonin syndrome including guaifenesin and fentanyl #Sinus tachycardia (improving) 05/31: persistent without fevers, possibly secondary to dehydration. Had 3 large episodes of urinary incontinence overnight per nurse. Possibly related to pain/discomfort as patient sedation titrated down. Patient receiving 500 cc NS today. Treatment Plan: - Continue to monitor HR - Continue close cardiac monitoring. - Monitor electrolytes and replete as needed. - Maintain Mg > 2 and K > 4 to reduce arrhythmia risk. #History of seizures #Cerebral palsy - Temperature of 105F on admission. - EEG 05/11 unremarkable - Repeat EEG 05/20: electrographic seizure activity. - Persistent fever spikes. - Continuous EEG 05/22-05/23: no seizure activity or status epilepticus. Treatment Plan: - Levetiracetam 1000 mg BID. - Valproic acid 187.5 mg Q6H. - Adjust seizure medications if breakthrough seizures recur - Seizure precautions. - Aspiration precautions. -Neurology on board, appreciate recs #Failed extubation 05/12 #Acute hypoxic respiratory failure s/p tracheostomy Diagnostic Test: - CXR 05/11: Mild bilateral perihilar pneumonia. To assess for ventilator associated pneumonia. Not much change from 05/09 CXR. - Resistant Pseudomonas from ETT secretions previously (05/09). - CXR 05/19: Significant bilateral pneumonia. Repeat Cocci serology test was negative - 05/20 sputum culture grew meenakshi Treatment Review (completed): - Patient extubated to [facility] 05/12, chest film with centro-bronchovascular congestion and multifocal pneumonia. - Reintubated overnight 05/13- VC/AC PPeak 20 PEEP 5 FiO2 40%. - Patient underwent bronchoscopy on 05/14 and 05/17 for secretions, well tolerated. - Patient underwent tracheostomy on 05/26/2025 - Meropenem (05/12-05/17, 05/19-05/22, for a total of ten days). Treatment Plan: - DC'd micafungin 100mg qday 05/28-05/30 - Chest physiotherapy daily #Bronchospasm #History of asthma Diagnostic Test: - Although the patient has a history of asthma, the bronchospasm is most likely from the irritant effect of blood in the airway. A small amount of blood, which was likely from dryness of the nasal mucosa, was suctioned out during intubation. Treatment Plan: - Magnesium for bronchodilator effect as needed. - Albuterol and Ipratropium as needed. #Chronic PEG tube dependence Treatment Plan: - Transitioned to Nepro 1.8 at 35 mL/hr x 24 hrs via PEG tube by pump (goal). If no IV fluids, water flushes of 55 mL/hr - ProStat 30ml BID via PEG tube. - Appreciate network control operators supervisor recommendations. - Triglyceride level 05/14 - 290; 05/17 - 312; 05/20 - 221; 05/26 - 275. #Hepatitis (improving) Likely due to meropenem or tylenol that could potentially cause hepatotoxicity. Diagnostic Test: - Gallbladder ultrasound 05/16: Normal gallbladder, no gallstones. Fatty infiltration throughout the liver. - Lipase 05/16: 41 wnl. Treatment Plan: - Continue daily LFTs. - Will reassess if transaminases continue to rise or clinical status changes. #Acute urinary retention (resolved) Treatment Plan - Monitor urine output, replace fluid if needed. - Hawkins removed 05/23 - Every 4 hour bladder scan and straight cath as needed for >400cc. #Hypoalbuminemia (resolved) Likely due to acute hepatitis Diagnostic Test: - UA had urine proteins 1+. - Albumin 4.9 -->3.3 -->2.8 --> 3.2 --> 3.4 --> 2.8 --> 2.5---> 4--->3.9. Treatment Plan: - Maintain on PEG tube feeds per network control operators supervisor recommendations. #Hyperkalemia (resolved) #Hyperphosphatemia DDx: acute kidney injury vs hemolysis vs rhabdomyolysis. Treatment Plan: - Monitor BMP and phosphorus. - Monitor potassium levels to avoid arrhythmias. - Sevelamer 800 milligram GT 3 times daily, adjust if needed. - Adjusted diet as above #Acute kidney injury (resolved) DDx: dehydration or vasodilation from sepsis. Diagnositc Test: - Creatinine 0.5 Treatment Plan: - Continue with free water flushes. - Daily renal panel to trend BUN, Cr, and electrolytes. - Avoid nephrotoxins. - Renally dose meds as appropriate. - Strict I&Os, monitor urine output closely. - Monitor for signs of volume overload or uremic symptoms. #Anion Gap Metabolic Acidosis (resolved) #Lactic acidosis (resolved) DDx: seizures vs sepsis vs acute kidney injury vs hypoperfusion. Likely from seizures as patient has no signs of systemic hypoperfusion such as skin mottling, decreased cap refills. Diagnostic Test: - Admission anion gap 22, lactic acid 16.0, bicarbonate 18.7. #Rhabdomyolysis (resolved) DDx: seizures vs hyperthermia vs infectious myositis. Diagnostic Test: - CK 1048 --> 3743 --> 1654 --> 338 --> 363. - Witnessed seizure episode lasting 5-10 seconds, characterized by tonic-clonic activity prior to admission. Treatment Plan: - Continue free water flushes at 35 cc/hr. - Monitor urine output. - Correct electrolyte abnormalities. - Control seizures with valproic acid and levetiracetam. - Monitor renal panel. #Acute nonocclusive thrombus in the left brachial vein (resolved) Diagnostic Test: - Venous doppler study of upper extremities 05/16: Normal right upper extremity deep venous system. Positive for nonocclusive thrombus in the left brachial vein. - Per chart review and patient's parents, patient does not have history of clots. Treatment Review (completed): - Lovenox 30 mg (05-11 - 05/15). - Lovenox 40 mg (05/16). - Heparin loading dose and ggt. Lovenox to heparin due to heparin?s shorter half-life, which allows for more rapid cessation in the event of bleeding, a shorter half life and can be stopped if bleeding occurs. - Stopped heparin ggt due to hematuria on 05/18. Treatment Plan: - Lovenox 70 mg SC BID for DVT treatment - Primary upper extremity deep vein thrombosis, anticoagulation should be continued for a minimum of three months following the initial thrombotic event. #Normocytic Anemia DDx: Anemia of Inflammation vs dilutional anemia vs drug-induced anemia. Likely dilutional anemia since patient had normal hemoglobin on admission and from IV fluids per sepsis protocol. No signs of bleeding. Treatment Plan: - Monitor H&H. - Type and screen. - Transfusing for Hgb <7 or symptomatic. #Thrombocytosis (Resolved) DDx: infection vs reactive Diagnostic Test: - Plt 711---> 352 Treatment Plan: - Monitor CMP. #Leukocytosis (resolved) DDx: likely due to bronchoscopy vs infection of unknown source vs drug induced Diagnostic Test: - Fever free overnight and AM -WBC 8.2 today Treatment Plan: - Treat underlying cause. #Thrombocytopenia (resolved) DDx: Dilutional versus consumption versus increased destruction due to sepsis. Initial decrease is likely due to dilutional in setting of IV fluids, however his WBC and hemoglobin have leveled off platelets have down trended. Diagnostic test: - Platelets: 209 --> 65-->141-->460. Treatment plan: - Monitor daily labs - Avoid excessive oral tracheal suctioning in setting of previous bleed and thrombocytopenia. #Sepsis #Bilateral chronic mastoiditis #Sinusitis #Bilateral otitis media #Bilateral otitis externa #Meenakshi parapsilosis DDx: meningitis vs acute on chronic mastoiditis vs acute febrile illness. Diagnostic Test: - History of chronic mastoiditis. - Met SIRS criteria on admission: T 105F, HR 176, RR 26, PaCO2 26, WBC 16.3. - 05/08 CT Head: prominent sphenoid ethmoid maxillary antral sinusitis, bilateral chronic mastoiditis, bilateral otitis media. - 05/08 CT Orbit Sella Inner: severe bilateral chronic mastoiditis, bilateral otitis externa and otitis media, bilateral cholesteatomas in the attics. - 05/09 Sputum culture: 1+ thurman resistance Pseudomonas. - 05/10 Lumbar puncture: clear, WBC 3, glucose 70, total protein 25. CSF testing negative. - 05/10 Respiratory viral panel: rhinovirus/enterovirus and human metapneumovirus detected. - 05/12 Bilateral ear culture: E coli ESBL. - UA 05/08 and 05/16 negative. - Blood culture 05/08, 05/11, and 05/16 negative. - 05/16 CXR: worsening diffuse severe left lung pneumonia. - Meenakshi parapsilosis in L ear culture Treatment Review (completed) - Rocephin 2 gm IV q12HR [05/08-05/11]. - Vancomycin dosed by pharmacy [05/08-05/11] since MRSA screen is negative. - Acyclovir 700 mg IV [05/08-05/11] since LP negative. - Fluids: 30mL/kg -- 2 L NS fluid infusion and 1 L LR fluid infusion was given in the ED. - Femoral central line removed 05/11, replaced with peripheral access. - A repeat Cocci serology test was negative Treatment Plan: - Topical oxofloxacin. - DC'd Micafungin 100mg qday 05/28-05/30 #Maculopapular rash to the buttocks DDx: contact dermatitis vs allergic dermatitis Treatment Plan - Patient no longer has diaper on. Anticipate rash to improve. Health Maintenance DVT prophylaxis: SCDs, Lovenox 70mg QD GI prophylaxis: Protonix IV Diet: Nepro 1.8 bebe Hawkins: none. Straight cath in/out q4h if urine retention more than 400 ml Lines: Peripherals, PEG tube. Drips: none Code status: Full code Lines: peripheral IV, Trach Assessment and plan discussed with my attending physician Dr. Dang and Dr. Baer (PGY-2). Dr. Molina (PGY-1) ? surgeon/president ? Attending Provider Attestation/Addendum I have discussed and was present for the essential components of the history, physical examination, diagnosis, and treatment plan with the resident. I agree with the patient's care as documented by the resident and amended herein by me. Kade Dang DO. Although this document has been carefully reviewed, there may still be some phonetic and other typographical errors. These errors are purely grammatical due to imperfections in the software program and should not be construed in any way to compromise the substance of the patient's medical care during this visit.
[2025-05-31] MEDS: MIDAZOLAM INJ 1 MG/ML VIAL 2 ML IVP (20:25)
[2025-05-31 23:34] LABS: Albumin, CSF 14.9 mg/dL (8.0-42.0); IgG Index, CSF 0.42 (<0.70); IgG, CSF 3.4 mg/dL (0.8-7.7); IgG, Serum 1400 mg/dL (600-1640); Synthesis Rate IgG, CSF -6.4 mg/24 h (-9.9 TO +3.3)
--- NOTE | 2025-05-31 23:45 | ESPR_ITS ---
Documentation for date of: 05/31/25 Subjective Subjective Interval history: Patient was seen in ICU today at the bedside. He underwent tracheostomy recently and Continued to remain on mechanical ventilatory support, off of IV sedation in infusion. No clinical seizures reported overnight. Exam - Neurology Vital Signs Temp Pulse Resp BP Pulse Ox O2 Del Method O2 Flow Rate 99.9 F 139 H 29 H 130/84 96 Mechanical Ventilation 35 05/31/25 20:00 05/31/25 22:11 05/31/25 18:39 05/31/25 22:11 05/31/25 22:11 05/31/25 16:00 05/16/25 12:00 FiO2 30 05/31/25 22:11 Narrative Exam GENERAL APPEARANCE: Developmentally delayed male , trached and on mechanical ventilatory support HEENT: Normocephalic, atraumatic, Pupils: Equal reacting to light NECK: Supple, no JVD or bruits. CARDIOVASULAR: Heart: S1, S2 heard, regular without S3-S4 or murmur no rubs or gallops. LUNGS/CHEST: Breath sounds heard equally bilaterally, bilateral Rales and rhonchi heard. ABDOMEN: Soft, nontender, with normal bowel sounds. No pulsatile masses. No rebound, rigidity, or guarding. Normal inspection and palpation. EXTREMITIES: Normal inspection and palpation. No edema, clubbing or cyanosis. SKIN: Warm and dry without rashes. Normal inspection. NEURO: brainstem function: partly Intact. PSYCHIATRIC: Limited Objective Labs 05/31/25 04:34 05/31/25 04:34 Labs: Laboratory Results - last 24 hr 05/26/25 05/31/25 05/31/25 19:30 04:34 08:06 WBC 10.6 RBC 3.08 L Hgb 8.5 L Hct 26.1 L MCV 85 MCH 27.6 MCHC 32.6 RDW Std Deviation 46.7 H Plt Count 529 H D Neut % (Auto) 61 Lymph % (Auto) 22 [place] % (Auto) 10 Eos % (Auto) 5 Baso % (Auto) 1 Neut # (Auto) 6.5 Lymph # (Auto) 2.3 [place] # (Auto) 1.0 H Eos # (Auto) 0.6 H Baso # (Auto) 0.1 Immature Gran # (Auto) 0.16 H Absolute Nucleated RBC 0.00 Immature Gran % 2 H Nucleated RBC % 0 VBG pH 7.55 VBG pCO2 31 L VBG pO2 144 H VBG O2 Sat (Maryam) 101 H VBG Base Excess 5 H Sodium 138 Potassium 4.4 Chloride 99 Carbon Dioxide 26.6 Anion Gap 12 BUN 13 Creatinine 0.5 L Estim Creat Clear Calc 182.2 eGFR > 60 BUN/Creatinine Ratio 26 H Glucose 121 H Calculated Osmolality 276 Calcium 9.9 Corrected Calcium 10.0 Phosphorus 6.5 H Magnesium 1.7 Total Bilirubin 0.4 AST 41 H ALT 63 H Alkaline Phosphatase 280 H D Total Protein 6.7 Albumin 3.9 Globulin 2.8 Albumin/Globulin Ratio 1.4 CSF Oligoclonal Bands ABSENT CSF Angiotensin Conv Enz <5 ABG Interpretation ABG results: 05/09/25 05/09/25 05/09/25 11:56 13:40 18:50 ABG pH 7.40 7.27 L D 7.28 L ABG pCO2 40 43 55 H D ABG pO2 131 H 53 L* D 70 L ABG HCO3 25 20 26 ABG O2 Saturation 99 H 81 L 92 ABG Base Excess 0 -7 L -2 VBG pH VBG pCO2 VBG pO2 VBG Base Excess 05/10/25 05/11/25 05/12/25 00:14 05:06 01:18 ABG pH 7.35 7.33 L 7.39 ABG pCO2 42 D 54 H D 48 ABG pO2 103 D 93 94 ABG HCO3 23 28 H 29 H ABG O2 Saturation 99 H 98 98 ABG Base Excess -3 2 3 VBG pH VBG pCO2 VBG pO2 VBG Base Excess 05/12/25 05/12/25 05/13/25 03:58 11:50 05:10 ABG pH 7.46 H 7.39 7.19 L* D ABG pCO2 41 48 60 H D ABG pO2 105 58 L* D 114 H D ABG HCO3 29 H 29 H 23 ABG O2 Saturation 99 H 90 L 98 ABG Base Excess 5 H 4 H -6 L VBG pH VBG pCO2 VBG pO2 VBG Base Excess 05/17/25 05/18/25 05/19/25 01:30 04:09 04:43 ABG pH 7.38 7.43 7.47 H ABG pCO2 46 44 43 ABG pO2 90 83 80 L ABG HCO3 27 H 29 H 31 H ABG O2 Saturation 98 97 97 ABG Base Excess 2 5 H 7 H VBG pH VBG pCO2 VBG pO2 VBG Base Excess 05/21/25 05/21/25 05/31/25 04:18 06:33 08:06 ABG pH 7.37 D 7.46 H ABG pCO2 50 H 38 D ABG pO2 40 L* D 121 H D ABG HCO3 29 H 27 H ABG O2 Saturation 66 L 100 H ABG Base Excess 3 3 VBG pH 7.55 VBG pCO2 31 L VBG pO2 144 H VBG Base Excess 5 H Assessment & Plan Additional Assessment & Plan Additional Plan: David Baltazar is 24 yr male with PMH of chronic mastoiditis (previously had tympanostomy tube placed for recurrent otitis media, now removed), seizure disorder, recurrent pneumonia, cerebral palsy, chronic PEG tube, and asthma who was brought into ED on 05/08/25 for ongoing fever of over 24 hours and reported episode of witnessed seizure by ED. Patient was treated for sepsis.Neurology was consulted. #Chronic pansinusitis #ruled out Meningitis #Tonic clonic seizure #Cerebral palsy -continue Keppra and Depakote -Consider going down on Phenobarbital gradually. -seizure precautions -midazolam for breakthrough seizure as needed MRI brain: chronic pansinusitis. CSF analysis: unremarkable. #Paraphimosis #Normocytic Anemia #Respiratory failure: s/p tracheostomy and on vent support Primary care team to manage above conditions and ongoing care needs.
[2025-06-01] VITALS (14 sets, daily range): BP systolic 96–125; BP diastolic 57–79; PULSE 117–146; RESP 0–38; TEMP 37.2–38.8; O2SAT 96–100; BMI 29.0
[2025-06-01] MEDS: MIDAZOLAM INJ 1 MG/ML VIAL 2 ML IVP ×3 (01:34→09:45)
[2025-06-01] MEDS: Magnesium Sulfate 4 GM Ivpb 4 GM/50 ML BAG IV (03:56)
[2025-06-01] MEDS: RINGERS LACTATED 500 ML 500 ML 999 ML IV (04:04)
--- NOTE | 2025-06-01 04:51 | EKG_ITS ---
[facility] Test Date: 2025-06-01 Pat Name: CATARINA CARREON [facility] Gender[facility] Male Stand In: PAVITHRA : 2000 Requested By: Ronnell Orozco Order Number: [id number] Reading MD: Ronnell Orozco Measurements Intervals [place] Rate: 144 P: 59 AK: 138 QRS: 76 QRSD: 84 T: 70 QT: 272 QTc: 422 Interpretive Statements SINUS TACHYCARDIA, POSSIBLE ATRIAL FLUTTER NONSPECIFIC T-WAVE ABNORMALITY ABNORMAL RHYTHM ECG Compared to ECG 05/22/2025 20:40:40 T-wave abnormality now present ST (T wave) deviation no longer present /store/S0/[id number]
[2025-06-01] MEDS: FERROUS SULF 325 MG TABLET PO (05:14)
[2025-06-01] MEDS: oxyCODONE HCL 5 MG IR TAB 15 MG PO ×3 (05:14→21:15)
[2025-06-01] MEDS: VALPROIC ACID SYRUP 250 MG/5 ML UDC GT ×3 (05:14→21:15)
[2025-06-01 05:28] LABS: Basophils # (Auto) 0.1 Thou/mm3 (0.0-0.2); Basophils % (Auto) 1 % (0-2.5); Eosinophils # (Auto) 0.5 Thou/mm3 (0.0-0.5); Eosinophils % (Auto) 4 % (0-10); Hematocrit 27.1 % (41.0-53.0); Hemoglobin 8.9 g/dL (13.5-16.0); Immature Granulocytes Auto 0.14 Thou/mm3 (0.00-0.00); Lymphocytes # (Auto) 2.6 Thou/mm3 (1.0-4.8); Lymphocytes % (Auto) 22 % (10-50); Mean Corpuscular HGB Conc 32.8 g/dl (31.0-37.0); Mean Corpuscular Hemoglobin 27.4 pg (25.0-35.0); Mean Corpuscular Volume 83 fL (80-100); Monocytes # (Auto) 1.1 Thou/mm3 (0.0-0.8); Monocytes % (Auto) 9 % (0-12); Neutrophils # (Auto) 7.5 Thou/mm3 (1.8-7.7); Neutrophils % (Auto) 63 % (37-80); Nucleated Red Blood Cell # 0.00 Thou/mm3 (0.00-0.00); Nucleated Red Blood Cell % 0 /100 WBC (0); Platelet Count 293 Thou/mm3 (140-440); RDW Standard Deviation 46.4 fL (35.1-43.9); Red Blood Count 3.25 Miln/mm3 (4.50-5.90); White Blood Count 11.8 Thou/mm3 (3.8-10.6)
[2025-06-01 06:26] LABS: Alanine Aminotransferase 69 U/L (10-49); Albumin, Serum 4.2 gm/dL (3.5-5.0); Albumin/Globulin Ratio 1.4 (1.2-2.2); Alkaline Phosphatase 333 U/L (46-116); Anion Gap 12 (7-16); Aspartate Amino Transferase 56 U/L (0-34); BUN/Creatinine Ratio 22 Ratio (12-20); Bilirubin,Total 0.4 mg/dL (0.3-1.2); Blood Urea Nitrogen 11 mg/dL (9-23); Calcium 10.2 mg/dL (8.3-10.6); Calcium (Corrected) 10.2 mg/dL (8.5-10.1); Carbon Dioxide 24.6 mMol/L (20.0-31.0); Chloride 100 mMol/L (98-107); Creatinine (Component) 0.5 mg/dL (0.6-1.3); Estimated Creatinine Clearance 178.7 mL/min (>60); Globulin 2.9 gm/dL (2.3-3.5); Glucose 94 mg/dL (74-106); Magnesium 1.6 mg/dL (1.6-2.6); Osmolality,Calculated 273 (275-295); Phosphorous 5.8 mg/dL (2.4-5.1); Potassium 4.8 mMol/L (3.4-5.1); Sodium 137 mMol/L (136-145); Total Protein 7.1 gm/dL (5.7-8.2); eGFR > 60 See Note
[2025-06-01 06:31] LABS: Albumin, Serum 2.6 g/dL (3.6-5.1)
--- NOTE | 2025-06-01 07:32 | ESPR_ITS ---
<Statement entered by Roebrt Cross MD - 06/02/25 16:29> Patient was seen and examined at bedside. I agree on the assessment and plan on this note as documented by resident Ninfa Molina MD PGY1. 24-year-old male, received as ICU downgrade had a complicated ICU course, currently continues to have episodes of fever, discussed with housekeeping/laundry and micafungin was added, will continue to monitor. Patient likely has ICU acquired delirium, will continue phenobarbital, clonazepam and oxycodone. Status post tracheostomy, currently on pressure support 12, PEEP 6, will continue to try wean off mechanical ventilation. Will continue to observe for fever episodes. Continue Lovenox 70 mg twice daily for treatment of DVT. Case discussed with attending Dr. Cortez Dnag DO Robert Cross MD PGY-2 Documentation for date of: 06/01/25 Subjective Subjective Interval history: Overnight: Patient was tachycardia in 140s, was still open eyes and tracking. ?19 gave lactated ringer bolus 500 mL, magnesium 4 g, Versed 1 mg. ?Neurology recommended to continue Keppra and Depakote, consider going down on phenobarbital, midazolam for breakthrough seizures as needed. Fever of 101.8 returned this morning. LFT slightly increase, AST 41-56, ALT 63- 69, alk phos 280-333. Patient is currently on Keppra 750 twice daily, Depakote 250 mg every 8 hours. Oxycodone 15 3 times daily. Phenobarbital 64.8 mg every 8 hours, tapering. Exam Vital Signs Temp Pulse Resp BP Pulse Ox O2 Del Method O2 Flow Rate 99.9 F 145 H 21 H 122/79 100 Mechanical Ventilation 35 06/01/25 04:00 06/01/25 06:28 06/01/25 06:28 06/01/25 06:28 06/01/25 06:28 05/31/25 16:00 05/16/25 12:00 FiO2 30 06/01/25 06:28 Narrative Exam General: Sedated and trached, on pressure support ventilation mode, in no acute distress. HEENT: NCAT, EOMI, Pupils reactive KARLO, not icteric, Right inferior eye scleral hemorrhage. External ears normal. No rhinorrhea. Moist mucous membranes. Neck: Supple, full range of motion, no observable masses, No meningeal sign. Heart: Tachycardic. Regular rate and rhythm, normal S1 and S2, no murmurs appreciated. Lungs: Coarse mechanical breath sounds bilaterally, no respiratory distress. Abdomen: Soft, nondistended, nontender, positive bowel sounds. No guarding or rebound tenderness. PEG tube in place. MSK: No lower extremity edema no redness, peripheral pulses presents, Contracted and swollen hands bilateral. Neurologic: Unable to assess due to patient's medical condition, pupils reactive : Foreskin unretractable, no discharge appreciated Skin: No petechiae, lesions, ecchymosis. Right axillary erythema, consistent with phlebitis. Left antecubital dermatitis Objective Labs 06/02/25 05:19 06/02/25 05:19 Labs: Laboratory Results - last 24 hr 05/26/25 05/31/25 06/01/25 19:30 08:06 04:43 WBC 11.8 H RBC 3.25 L Hgb 8.9 L Hct 27.1 L MCV 83 MCH 27.4 MCHC 32.8 RDW Std Deviation 46.4 H Plt Count 293 D Neut % (Auto) 63 Lymph % (Auto) 22 Williams % (Auto) 9 Eos % (Auto) 4 Baso % (Auto) 1 Neut # (Auto) 7.5 Lymph # (Auto) 2.6 Williams # (Auto) 1.1 H Eos # (Auto) 0.5 Baso # (Auto) 0.1 Immature Gran # (Auto) 0.14 H Absolute Nucleated RBC 0.00 Immature Gran % 1 H Nucleated RBC % 0 VBG pH 7.55 VBG pCO2 31 L VBG pO2 144 H VBG O2 Sat (Maryam) 101 H VBG Base Excess 5 H Sodium 137 Potassium 4.8 Chloride 100 Carbon Dioxide 24.6 Anion Gap 12 BUN 11 Creatinine 0.5 L Estim Creat Clear Calc 178.7 eGFR > 60 BUN/Creatinine Ratio 22 H Glucose 94 Calculated Osmolality 273 L Calcium 10.2 Corrected Calcium 10.2 H Phosphorus 5.8 H Magnesium 1.6 Total Bilirubin 0.4 AST 56 H ALT 69 H Alkaline Phosphatase 333 H D Total Protein 7.1 Albumin 4.2 Globulin 2.9 Albumin/Globulin Ratio 1.4 CSF Albumin 14.9 CSF IgG (MS) 3.4 IgG, Serum (MS) 1400 Serum Albumin 2.6 L CSF/Serum IgG Index 0.42 CSF/Serum IgG Synthesis -6.4 ABG Interpretation ABG results: 05/09/25 05/09/25 05/09/25 11:56 13:40 18:50 ABG pH 7.40 7.27 L D 7.28 L ABG pCO2 40 43 55 H D ABG pO2 131 H 53 L* D 70 L ABG HCO3 25 20 26 ABG O2 Saturation 99 H 81 L 92 ABG Base Excess 0 -7 L -2 VBG pH VBG pCO2 VBG pO2 VBG Base Excess 05/10/25 05/11/25 05/12/25 00:14 05:06 01:18 ABG pH 7.35 7.33 L 7.39 ABG pCO2 42 D 54 H D 48 ABG pO2 103 D 93 94 ABG HCO3 23 28 H 29 H ABG O2 Saturation 99 H 98 98 ABG Base Excess -3 2 3 VBG pH VBG pCO2 VBG pO2 VBG Base Excess 05/12/25 05/12/25 05/13/25 03:58 11:50 05:10 ABG pH 7.46 H 7.39 7.19 L* D ABG pCO2 41 48 60 H D ABG pO2 105 58 L* D 114 H D ABG HCO3 29 H 29 H 23 ABG O2 Saturation 99 H 90 L 98 ABG Base Excess 5 H 4 H -6 L VBG pH VBG pCO2 VBG pO2 VBG Base Excess 05/17/25 05/18/25 05/19/25 01:30 04:09 04:43 ABG pH 7.38 7.43 7.47 H ABG pCO2 46 44 43 ABG pO2 90 83 80 L ABG HCO3 27 H 29 H 31 H ABG O2 Saturation 98 97 97 ABG Base Excess 2 5 H 7 H VBG pH VBG pCO2 VBG pO2 VBG Base Excess 05/21/25 05/21/25 05/31/25 04:18 06:33 08:06 ABG pH 7.37 D 7.46 H ABG pCO2 50 H 38 D ABG pO2 40 L* D 121 H D ABG HCO3 29 H 27 H ABG O2 Saturation 66 L 100 H ABG Base Excess 3 3 VBG pH 7.55 VBG pCO2 31 L VBG pO2 144 H VBG Base Excess 5 H Quality Measures Quality Measures VTE prophylaxis (SCDs) and sepsis Current suspected stage: sepsis Possible source: pulmonary Blood cultures ordered: yes Antibiotic ordered: Yes Assessment & Plan Assessment Current Active Medications: Generic Name Dose Route Start Last Admin Trade Name Freq PRN Reason Stop Dose Admin Acetaminophen 650 mg 05/28/25 10:36 Acetaminophen Racquel 325 Mg/10 Ml Udc NG 06/27/25 10:35 Q4HR PRN fever >100.4 Albuterol/Ipratropium 3 ml 05/09/25 18:19 05/28/25 06:34 Albuterol/Ipratropium (Duoneb) Rt Racquel 3 Ml Nebu INH 06/08/25 18:18 3 ml Q2HR PRN Administration SHORTNESS OF BREATH OR WHEEZE Calcium Carbonate 600 mg 05/20/25 18:20 05/31/25 09:24 Calcium Carbonate 600 Mg Tablet GT 06/19/25 18:19 600 mg QDAY KYA Administration Enoxaparin Sodium 70 mg 05/30/25 21:00 05/31/25 20:44 Enoxaparin Sod Inj 80 Mg/0.8 Ml Syringe SC 06/13/25 20:59 70 mg BID KYA Administration Ferrous Sulfate 325 mg 06/01/25 05:00 06/01/25 05:14 Ferrous Sulf 325 Mg Tablet PO 07/01/25 04:59 325 mg QOD KYA Administration Magnesium Sulfate 4 gm in 50 mls @ 12.5 mls/hr 06/01/25 03:49 06/01/25 03:56 Magnesium Sulfate Ivpb IV 06/01/25 07:48 12.5 mls/hr X1 ONE Administration Lansoprazole 30 mg 05/28/25 09:00 05/31/25 09:24 Lansoprazole 30 Mg Tab. GT 06/27/25 08:59 30 mg QDAY KYA Administration Levetiracetam 750 mg 05/30/25 09:00 05/31/25 20:43 Levetiracetam Liqd 500 Mg/5 Ml Udc GT 06/29/25 08:59 750 mg BID KYA Administration Midazolam HCl 1 mg 05/30/25 18:49 06/01/25 01:34 Midazolam Inj 1 Mg/Ml Vial 2 Ml IVP 06/04/25 18:48 1 mg Q3HR PRN Administration AGITATION OR ANXIETY Ondansetron HCl 4 mg 05/27/25 14:37 Ondansetron Odt 4 Mg Tabrap GT 06/26/25 14:36 Q6HR PRN NAUSEA OR VOMITING Protocol Oxycodone HCl 15 mg 05/31/25 14:00 06/01/25 05:14 Oxycodone Hcl 5 Mg Ir Tab PO 06/05/25 13:59 15 mg TID KYA Administration Phenobarbital 64.8 mg 05/31/25 14:00 06/01/25 05:14 Phenobarbital 32.4 Mg Tablet GT 06/14/25 13:59 64.8 mg Q8HR KYA Administration Polyethylene Glycol 17 gm 05/16/25 09:15 05/31/25 09:24 Polyethylene Glycol 17 Gm Packet PO 06/15/25 09:14 17 gm QDAY KYA Administration Sevelamer Carbonate 0.8 gm 05/27/25 08:00 05/31/25 15:15 Sevelamer Carbonate 0.8 Gm Packet (Non-Formulary) GT 06/26/25 07:59 0.8 gm TIDWM KYA Administration Sodium Chloride 3 ml 05/17/25 11:43 Sodium Chloride Rt Racquel 0.9% 3 Ml Nebu INH 06/16/25 11:42 PRN PRN SOLN Valproic Acid 250 mg 05/27/25 18:00 06/01/25 05:14 Valproic Acid Syrup 250 Mg/5 Ml Udc GT 06/26/25 17:59 250 mg Q8HR KYA Administration Plan #Persistent fever of unknown origin Patient spiked a fever today, did not receive full course of antifungal treatment. CRP ESR Procal showed low suspicion for bacterial infection. Will treat empirically with micafungin Diagnostic Test: - ESR and Procal normal, CRP mildly elevated 13.7 - ICU Dr. Armendariz restarted micafungin (last dose 2 days ago 05/28-05/30) Treatment Plan: - Repeat blood culture - Tylenol for fever as needed - LR 1L bolus - Avoid serotonergic agents #Sinus tachycardia Persistent with intermittent fevers. Possibly related to pain/discomfort as patient sedation titrated down vs. new/recurrent infection. Patient receiving 1000 cc LR today. EKG showed sinus tachycardia Treatment Plan: - Continue to monitor HR - Continue close cardiac monitoring. - Monitor electrolytes and replete as needed. - Maintain Mg > 2 and K > 4 to reduce arrhythmia risk. ? #Paraphimosis (resolved) #Balanitis (resolved) #Phimosis Diagnostic Test: - Edema and tenderness of the glans penis. - Swelling of the distal retracted foreskin. - Constricting band of tissue proximal to the head of the penis at the coronal sulcus. - Hawkins was removed on 05/09 and transitioned to Oivi external urinary catheter. Discussed with family about the need to reinsert hawkins due to the patient's acute urinary retention. Family were in agreement with this plan. Hawkins was reinserted on 05/10 due to urinary retention. Hawkins changed and replaced on 05/16. - S/p reduction of the paraphimosis by Dr. Vargas on 05/09. - 05/29/2025 Patient noticed to have unretractable foreskin Treatment Plan: - Per ICU team, pending possible partial dorsal slit when urologist returns on Wednesday 06/06 - Control patient's pain with sedation, titrate down. - Monitor urine output. #Agitated delerium #Serotonin Syndrome? Patient was extremely agitated before ICU admission, likely due to pain from paraphimosis. Patient initially sedated with propofol and fentanyl, titrated to Precedex with Benadryl before extubation. Patient failed extubation and was intubated on 05/12. Propofol and fentanyl was restarted. Still spiking fevers and tachycardic, possible serotonin syndrome Diagnostic Test: - EEG did not show seizure activity per neurology. - MRI brain 05/23: showed chronic infections, no acute pathology. Treatment Plan: - decreased Phenobarbital 64.8 mg Q8H, continue weaning as tolerated - Clonazepam 2 mg TID. - Decrease oxycodone to 15 mg TID. - off Versed drip - Neurology consulted, appreciate recommendations. - Avoid medications that may precipitate serotonin syndrome including guaifenesin and fentanyl #History of seizures #Cerebral palsy - Temperature of 105F on admission. - EEG 05/11 unremarkable - Repeat EEG 05/20: electrographic seizure activity. - Persistent fever spikes. - Continuous EEG 05/22-05/23: no seizure activity or status epilepticus. Treatment Plan: - Levetiracetam 1000 mg BID. - Valproic acid 187.5 mg Q6H. - Adjust seizure medications if breakthrough seizures recur - Seizure precautions. - Aspiration precautions. -Neurology on board, appreciate recs #Failed extubation 05/12 #Acute hypoxic respiratory failure s/p tracheostomy Diagnostic Test: - CXR 05/11: Mild bilateral perihilar pneumonia. To assess for ventilator associated pneumonia. Not much change from 05/09 CXR. - Resistant Pseudomonas from ETT secretions previously (05/09). - CXR 05/19: Significant bilateral pneumonia. Repeat Cocci serology test was negative - 05/20 sputum culture grew meenakshi Treatment Review (completed): - Patient extubated to [facility] 05/12, chest film with centro-bronchovascular congestion and multifocal pneumonia. - Reintubated overnight 05/13- VC/AC PPeak 20 PEEP 5 FiO2 40%. - Patient underwent bronchoscopy on 05/14 and 05/17 for secretions, well tolerated. - Patient underwent tracheostomy on 05/26/2025 - Meropenem (05/12-05/17, 05/19-05/22, for a total of ten days). Treatment Plan: - DC'd micafungin 100mg qday 05/28-05/30 - Chest physiotherapy daily #Bronchospasm #History of asthma Diagnostic Test: - Although the patient has a history of asthma, the bronchospasm is most likely from the irritant effect of blood in the airway. A small amount of blood, which was likely from dryness of the nasal mucosa, was suctioned out during intubation. Treatment Plan: - Magnesium for bronchodilator effect as needed. - Albuterol and Ipratropium as needed. #Chronic PEG tube dependence Treatment Plan: - Transitioned to Nepro 1.8 at 35 mL/hr x 24 hrs via PEG tube by pump (goal). If no IV fluids, water flushes of 55 mL/hr - ProStat 30ml BID via PEG tube. - Appreciate rigger chief recommendations. - Triglyceride level 05/14 - 290; 05/17 - 312; 05/20 - 221; 05/26 - 275. #Hepatitis (improving) Likely due to meropenem or tylenol that could potentially cause hepatotoxicity. Diagnostic Test: - Gallbladder ultrasound 05/16: Normal gallbladder, no gallstones. Fatty infiltration throughout the liver. - Lipase 05/16: 41 wnl. Treatment Plan: - Continue daily LFTs. - Will reassess if transaminases continue to rise or clinical status changes. #Acute urinary retention (resolved) Treatment Plan - Monitor urine output, replace fluid if needed. - Hawkins removed 05/23 - Every 4 hour bladder scan and straight cath as needed for >400cc. #Hypoalbuminemia (resolved) Likely due to acute hepatitis Diagnostic Test: - UA had urine proteins 1+. - Albumin 4.9 -->3.3 -->2.8 --> 3.2 --> 3.4 --> 2.8 --> 2.5---> 4--->3.9. Treatment Plan: - Maintain on PEG tube feeds per rigger chief recommendations. #Hyperkalemia (resolved) #Hyperphosphatemia DDx: acute kidney injury vs hemolysis vs rhabdomyolysis. Treatment Plan: - Monitor BMP and phosphorus. - Monitor potassium levels to avoid arrhythmias. - Sevelamer 800 milligram GT 3 times daily, adjust if needed. - Adjusted diet as above #Acute kidney injury (resolved) DDx: dehydration or vasodilation from sepsis. Diagnositc Test: - Creatinine 0.5 Treatment Plan: - Continue with free water flushes. - Daily renal panel to trend BUN, Cr, and electrolytes. - Avoid nephrotoxins. - Renally dose meds as appropriate. - Strict I&Os, monitor urine output closely. - Monitor for signs of volume overload or uremic symptoms. #Anion Gap Metabolic Acidosis (resolved) #Lactic acidosis (resolved) DDx: seizures vs sepsis vs acute kidney injury vs hypoperfusion. Likely from seizures as patient has no signs of systemic hypoperfusion such as skin mottling, decreased cap refills. Diagnostic Test: - Admission anion gap 22, lactic acid 16.0, bicarbonate 18.7. #Rhabdomyolysis (resolved) DDx: seizures vs hyperthermia vs infectious myositis. Diagnostic Test: - CK 1048 --> 3743 --> 1654 --> 338 --> 363. - Witnessed seizure episode lasting 5-10 seconds, characterized by tonic-clonic activity prior to admission. Treatment Plan: - Continue free water flushes at 35 cc/hr. - Monitor urine output. - Correct electrolyte abnormalities. - Control seizures with valproic acid and levetiracetam. - Monitor renal panel. #Acute nonocclusive thrombus in the left brachial vein (resolved) Diagnostic Test: - Venous doppler study of upper extremities 05/16: Normal right upper extremity deep venous system. Positive for nonocclusive thrombus in the left brachial vein. - Per chart review and patient's parents, patient does not have history of clots. Treatment Review (completed): - Lovenox 30 mg (05-11 - 05/15). - Lovenox 40 mg (05/16). - Heparin loading dose and ggt. Lovenox to heparin due to heparin?s shorter half-life, which allows for more rapid cessation in the event of bleeding, a shorter half life and can be stopped if bleeding occurs. - Stopped heparin ggt due to hematuria on 05/18. Treatment Plan: - Lovenox 70 mg SC BID for DVT treatment - Primary upper extremity deep vein thrombosis, anticoagulation should be continued for a minimum of three months following the initial thrombotic event. #Normocytic Anemia DDx: Anemia of Inflammation vs dilutional anemia vs drug-induced anemia. Likely dilutional anemia since patient had normal hemoglobin on admission and from IV fluids per sepsis protocol. No signs of bleeding. Treatment Plan: - Monitor H&H. - Type and screen. - Transfusing for Hgb <7 or symptomatic. #Thrombocytosis (Resolved) DDx: infection vs reactive Diagnostic Test: - Plt 711---> 352 Treatment Plan: - Monitor CMP. #Leukocytosis (resolved) DDx: likely due to bronchoscopy vs infection of unknown source vs drug induced Diagnostic Test: - Fever free overnight and AM -WBC 8.2 today Treatment Plan: - Treat underlying cause. #Thrombocytopenia (resolved) DDx: Dilutional versus consumption versus increased destruction due to sepsis. Initial decrease is likely due to dilutional in setting of IV fluids, however his WBC and hemoglobin have leveled off platelets have down trended. Diagnostic test: - Platelets: 209 --> 65-->141-->460. Treatment plan: - Monitor daily labs - Avoid excessive oral tracheal suctioning in setting of previous bleed and thrombocytopenia. #Sepsis #Bilateral chronic mastoiditis #Sinusitis #Bilateral otitis media #Bilateral otitis externa #Meenakshi parapsilosis DDx: meningitis vs acute on chronic mastoiditis vs acute febrile illness. Diagnostic Test: - History of chronic mastoiditis. - Met SIRS criteria on admission: T 105F, HR 176, RR 26, PaCO2 26, WBC 16.3. - 05/08 CT Head: prominent sphenoid ethmoid maxillary antral sinusitis, bilateral chronic mastoiditis, bilateral otitis media. - 05/08 CT Orbit Sella Inner: severe bilateral chronic mastoiditis, bilateral otitis externa and otitis media, bilateral cholesteatomas in the attics. - 05/09 Sputum culture: 1+ thurman resistance Pseudomonas. - 05/10 Lumbar puncture: clear, WBC 3, glucose 70, total protein 25. CSF testing negative. - 05/10 Respiratory viral panel: rhinovirus/enterovirus and human metapneumovirus detected. - 05/12 Bilateral ear culture: E coli ESBL. - UA 05/08 and 05/16 negative. - Blood culture 05/08, 05/11, and 05/16 negative. - 05/16 CXR: worsening diffuse severe left lung pneumonia. - Meenakshi parapsilosis in L ear culture Treatment Review (completed) - Rocephin 2 gm IV q12HR [05/08-05/11]. - Vancomycin dosed by pharmacy [05/08-05/11] since MRSA screen is negative. - Acyclovir 700 mg IV [05/08-05/11] since LP negative. - Fluids: 30mL/kg -- 2 L NS fluid infusion and 1 L LR fluid infusion was given in the ED. - Femoral central line removed 05/11, replaced with peripheral access. - A repeat Cocci serology test was negative Treatment Plan: - Topical oxofloxacin. - DC'd Micafungin 100mg qday 05/28-05/30 #Maculopapular rash to the buttocks DDx: contact dermatitis vs allergic dermatitis Treatment Plan - Patient no longer has diaper on. Anticipate rash to improve. Health Maintenance DVT prophylaxis: SCDs, Lovenox 70mg QD GI prophylaxis: Protonix IV Diet: Nepro 1.8 bebe Hawkins: none. Straight cath in/out q4h if urine retention more than 400 ml Lines: Peripherals, PEG tube. Drips: none Code status: Full code Assessment and plan discussed with my attending physician Dr. Dang and Dr. Cross (PGY-2). Dr. Molina (PGY-1) ? assistant vice president Attending Provider Attestation/Addendum I have discussed and was present for the essential components of the history, physical examination, diagnosis, and treatment plan with the resident. I agree with the patient's care as documented by the resident and amended herein by me. Kade Dang DO. Although this document has been carefully reviewed, there may still be some phonetic and other typographical errors. These errors are purely grammatical due to imperfections in the software program and should not be construed in any way to compromise the substance of the patient's medical care during this visit.
[2025-06-01 08:41] LABS: CMV DNA, Qn PCR <1.54 DETECTED Log IU/mL; CMV DNA, Qn Real Time PCR <34.5 DETECTED IU/mL
[2025-06-01] MEDS: SEVELAMER CARBONATE 0.8 GM PACKET (NON-FORMULARY) GT ×3 (08:51→16:42)
[2025-06-01] MEDS: LANSOPRAZOLE 30 MG TAB.RAP.DR GT (08:51)
[2025-06-01] MEDS: levETIRAcetam LIQD 500 MG/5 ML UDC 750 MG GT ×2 (08:52→21:15)
[2025-06-01] MEDS: POLYETHYLENE GLYCOL 17 GM PACKET PO (08:52)
[2025-06-01] MEDS: ENOXAPARIN SOD INJ 80 MG/0.8 ML SYRINGE 70 MG SC ×2 (08:52→21:16)
[2025-06-01] MEDS: CALCIUM CARBONATE 600 MG TABLET GT (08:52)
[2025-06-01] MEDS: ACETAMINOPHEN SOL 325 MG/10 ML UDC 650 MG NG (09:49)
--- NOTE | 2025-06-01 09:56 | EKG_ITS ---
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
[2025-06-01 10:45] LABS: Sed Rate (ESR) 11 mm/hr (0-15)
[2025-06-01 10:59] LABS: C-Reactive Protein 13.7 mg/dL (0.0-0.9); Procalcitonin 0.18 ng/ml (0.0-0.49)
[2025-06-01] MEDS: RINGERS LACTATED 1000 ML 1,000 ML 999 ML IV (10:59)
--- NOTE | 2025-06-01 12:30 | PC.SS ---
SS has sent inquiry to [facility], Per Rishi KRUSE's request. Pt is on trach/peg and currently on ventilator.
[2025-06-01] MEDS: MICAFUNGIN SODIUM INJ 100 MG in SODIUM CHLORIDE 0.9% 100 ML IV (14:08)
--- NOTE | 2025-06-01 14:37 | PD.IDPROG ---
Subjective Subjective Interval history: back on micafungin. new team noted. was advised that he was on both merrem and micafungin. merrem not currently on med list, primary team associates fever reduction with micofungin so restarted it. but picture seems more like a non infectious fever but anti fungals ok given his condition Exam Vital Signs Temp Pulse Resp BP Pulse Ox O2 Del Method O2 Flow Rate 99.7 F 133 H 21 H 122/71 99 Mechanical Ventilation 35 06/01/25 10:59 06/01/25 14:10 06/01/25 06:28 06/01/25 14:10 06/01/25 14:10 05/31/25 16:00 05/16/25 12:00 FiO2 30 06/01/25 14:10 Narrative Exam sedated ventilated. no active szs noted Objective - Internal Medicine Labs 06/01/25 04:43 06/01/25 04:43 Labs: Laboratory Results - last 24 hr 05/26/25 05/28/25 06/01/25 19:30 04:22 04:43 WBC 11.8 H RBC 3.25 L Hgb 8.9 L Hct 27.1 L MCV 83 MCH 27.4 MCHC 32.8 RDW Std Deviation 46.4 H Plt Count 293 D Neut % (Auto) 63 Lymph % (Auto) 22 [facility] % (Auto) 9 Eos % (Auto) 4 Baso % (Auto) 1 Neut # (Auto) 7.5 Lymph # (Auto) 2.6 [facility] [facility] # (Auto) 1.1 H Eos # (Auto) 0.5 Baso # (Auto) 0.1 Immature Gran # (Auto) 0.14 H Absolute Nucleated RBC 0.00 Immature Gran % 1 H Nucleated RBC % 0 ESR 11 Sodium 137 Potassium 4.8 Chloride 100 Carbon Dioxide 24.6 Anion Gap 12 BUN 11 Creatinine 0.5 L Estim Creat Clear Calc 178.7 eGFR > 60 BUN/Creatinine Ratio 22 H Glucose 94 Calculated Osmolality 273 L Calcium 10.2 Corrected Calcium 10.2 H Phosphorus 5.8 H Magnesium 1.6 Total Bilirubin 0.4 AST 56 H ALT 69 H Alkaline Phosphatase 333 H D C-Reactive Prot, Quant 13.7 H Total Protein 7.1 Albumin 4.2 Globulin 2.9 Albumin/Globulin Ratio 1.4 Procalcitonin 0.18 CSF Albumin 14.9 CSF IgG (MS) 3.4 IgG, Serum (MS) 1400 Serum Albumin 2.6 L CSF/Serum IgG Index 0.42 CSF/Serum IgG Synthesis -6.4 CMV DNA Quant PCR <34.5 DETECTED A CMV Qnt PCR copies/mL <1.54 DETECTED A ABG Interpretation ABG results: 05/09/25 05/09/25 05/09/25 11:56 13:40 18:50 ABG pH 7.40 7.27 L D 7.28 L ABG pCO2 40 43 55 H D ABG pO2 131 H 53 L* D 70 L ABG HCO3 25 20 26 ABG O2 Saturation 99 H 81 L 92 ABG Base Excess 0 -7 L -2 VBG pH VBG pCO2 VBG pO2 VBG Base Excess 05/10/25 05/11/25 05/12/25 00:14 05:06 01:18 ABG pH 7.35 7.33 L 7.39 ABG pCO2 42 D 54 H D 48 ABG pO2 103 D 93 94 ABG HCO3 23 28 H 29 H ABG O2 Saturation 99 H 98 98 ABG Base Excess -3 2 3 VBG pH VBG pCO2 VBG pO2 VBG Base Excess 05/12/25 05/12/25 05/13/25 03:58 11:50 05:10 ABG pH 7.46 H 7.39 7.19 L* D ABG pCO2 41 48 60 H D ABG pO2 105 58 L* D 114 H D ABG HCO3 29 H 29 H 23 ABG O2 Saturation 99 H 90 L 98 ABG Base Excess 5 H 4 H -6 L VBG pH VBG pCO2 VBG pO2 VBG Base Excess 05/17/25 05/18/25 05/19/25 01:30 04:09 04:43 ABG pH 7.38 7.43 7.47 H ABG pCO2 46 44 43 ABG pO2 90 83 80 L ABG HCO3 27 H 29 H 31 H ABG O2 Saturation 98 97 97 ABG Base Excess 2 5 H 7 H VBG pH VBG pCO2 VBG pO2 VBG Base Excess 05/21/25 05/21/25 05/31/25 04:18 06:33 08:06 ABG pH 7.37 D 7.46 H ABG pCO2 50 H 38 D ABG pO2 40 L* D 121 H D ABG HCO3 29 H 27 H ABG O2 Saturation 66 L 100 H ABG Base Excess 3 3 VBG pH 7.55 VBG pCO2 31 L VBG pO2 144 H VBG Base Excess 5 H Assessment & Plan A&P Narrative viral findings on pcr testing at health dept. cmv pos in csf initially, repeat pending resp failure fuoif procal neg in a them may have a non infectious process to think about but procal insensitive to fungal antigens I am ok with him off abx entirely. procal has mostly been neg for a long time now so value of more abx seems low. would not target the cmv. tests suggest old cmv and ebv value of rx seems low. hardest thing to do is stop meds but that is often what is needed. meenakshi in sputum also not felt to be a pathogen. so would not target the meenakshi either. but if you insist on rx, then flucon enterally ok for yeast in sputum will f/u friday. prognosis guarded with continued vent needs Time Spent With Patient Time: Total time spent is greater than 50% in coordination of care (as documented) at patient's floor/unit and/or counseling patient:
--- NOTE | 2025-06-01 16:14 | PC.SS ---
Rounding Note: Patient remains on sedation. Spiking fever. Blood/urine cultures pending.
[2025-06-01 17:48] LABS: HSV-1 DNA, CSF NOT DETECTED copies/mL; HSV-1 DNA, CSF Source CEREBROSPINAL FLUID; West Nile Virus (IgG), CSF <1.30
[2025-06-02] VITALS (14 sets, daily range): BP systolic 111–143; BP diastolic 67–83; PULSE 116–154; RESP 19–25; TEMP 36.9–39.9; O2SAT 94–99; BMI 29.0
--- NOTE | 2025-06-02 00:03 | ESPR_ITS ---
Documentation for date of: 06/01/25 Subjective Subjective Interval history: Patient was seen in telemetry today at the bedside. He underwent tracheostomy recently and Continued to remain on mechanical ventilatory support, off of IV sedation. No clinical seizures reported for a long time. Exam - Neurology Vital Signs Temp Pulse Resp BP Pulse Ox O2 Del Method O2 Flow Rate 99.0 F 117 H 22 H 115/75 96 Mechanical Ventilation 35 06/01/25 20:00 06/01/25 20:00 06/01/25 20:00 06/01/25 20:00 06/01/25 20:00 05/31/25 16:00 05/16/25 12:00 FiO2 30 06/01/25 20:00 Narrative Exam GENERAL APPEARANCE: Developmentally delayed male , trached and on mechanical ventilatory support HEENT: Normocephalic, atraumatic, Pupils: Equal reacting to light NECK: Supple, no JVD or bruits. CARDIOVASULAR: Heart: S1, S2 heard, regular without S3-S4 or murmur no rubs or gallops. LUNGS/CHEST: Breath sounds heard equally bilaterally, bilateral Rales and rhonchi heard. ABDOMEN: Soft, nontender, with normal bowel sounds. No pulsatile masses. No rebound, rigidity, or guarding. Normal inspection and palpation. EXTREMITIES: Normal inspection and palpation. No edema, clubbing or cyanosis. SKIN: Warm and dry without rashes. Normal inspection. NEURO: remains unresponsive, brainstem function: Intact. PSYCHIATRIC: Limited Objective Labs 06/01/25 04:43 06/01/25 04:43 Labs: Laboratory Results - last 24 hr 05/26/25 05/28/25 06/01/25 19:30 04:22 04:43 WBC 11.8 H RBC 3.25 L Hgb 8.9 L Hct 27.1 L MCV 83 MCH 27.4 MCHC 32.8 RDW Std Deviation 46.4 H Plt Count 293 D Neut % (Auto) 63 Lymph % (Auto) 22 [place] % (Auto) 9 Eos % (Auto) 4 Baso % (Auto) 1 Neut # (Auto) 7.5 Lymph # (Auto) 2.6 [place] # (Auto) 1.1 H Eos # (Auto) 0.5 Baso # (Auto) 0.1 Immature Gran # (Auto) 0.14 H Absolute Nucleated RBC 0.00 Immature Gran % 1 H Nucleated RBC % 0 ESR 11 Sodium 137 Potassium 4.8 Chloride 100 Carbon Dioxide 24.6 Anion Gap 12 BUN 11 Creatinine 0.5 L Estim Creat Clear Calc 178.7 eGFR > 60 BUN/Creatinine Ratio 22 H Glucose 94 Calculated Osmolality 273 L Calcium 10.2 Corrected Calcium 10.2 H Phosphorus 5.8 H Magnesium 1.6 Total Bilirubin 0.4 AST 56 H ALT 69 H Alkaline Phosphatase 333 H D C-Reactive Prot, Quant 13.7 H Total Protein 7.1 Albumin 4.2 Globulin 2.9 Albumin/Globulin Ratio 1.4 Procalcitonin 0.18 CSF Albumin 14.9 CSF IgG (MS) 3.4 IgG, Serum (MS) 1400 Serum Albumin 2.6 L CSF/Serum IgG Index 0.42 CSF/Serum IgG Synthesis -6.4 CMV DNA Quant PCR <34.5 DETECTED A CMV Qnt PCR copies/mL <1.54 DETECTED A ABG Interpretation ABG results: 05/09/25 05/09/25 05/09/25 11:56 13:40 18:50 ABG pH 7.40 7.27 L D 7.28 L ABG pCO2 40 43 55 H D ABG pO2 131 H 53 L* D 70 L ABG HCO3 25 20 26 ABG O2 Saturation 99 H 81 L 92 ABG Base Excess 0 -7 L -2 VBG pH VBG pCO2 VBG pO2 VBG Base Excess 05/10/25 05/11/25 05/12/25 00:14 05:06 01:18 ABG pH 7.35 7.33 L 7.39 ABG pCO2 42 D 54 H D 48 ABG pO2 103 D 93 94 ABG HCO3 23 28 H 29 H ABG O2 Saturation 99 H 98 98 ABG Base Excess -3 2 3 VBG pH VBG pCO2 VBG pO2 VBG Base Excess 05/12/25 05/12/25 05/13/25 03:58 11:50 05:10 ABG pH 7.46 H 7.39 7.19 L* D ABG pCO2 41 48 60 H D ABG pO2 105 58 L* D 114 H D ABG HCO3 29 H 29 H 23 ABG O2 Saturation 99 H 90 L 98 ABG Base Excess 5 H 4 H -6 L VBG pH VBG pCO2 VBG pO2 VBG Base Excess 05/17/25 05/18/25 05/19/25 01:30 04:09 04:43 ABG pH 7.38 7.43 7.47 H ABG pCO2 46 44 43 ABG pO2 90 83 80 L ABG HCO3 27 H 29 H 31 H ABG O2 Saturation 98 97 97 ABG Base Excess 2 5 H 7 H VBG pH VBG pCO2 VBG pO2 VBG Base Excess 05/21/25 05/21/25 05/31/25 04:18 06:33 08:06 ABG pH 7.37 D 7.46 H ABG pCO2 50 H 38 D ABG pO2 40 L* D 121 H D ABG HCO3 29 H 27 H ABG O2 Saturation 66 L 100 H ABG Base Excess 3 3 VBG pH 7.55 VBG pCO2 31 L VBG pO2 144 H VBG Base Excess 5 H Assessment & Plan Additional Assessment & Plan Additional Plan: David Baltazar is 24 yr male with PMH of chronic mastoiditis (previously had tympanostomy tube placed for recurrent otitis media, now removed), seizure disorder, recurrent pneumonia, cerebral palsy, chronic PEG tube, and asthma who was brought into ED on 05/08/25 for ongoing fever of over 24 hours and reported episode of witnessed seizure by ED. Patient was treated for sepsis.Neurology was consulted. #Chronic pansinusitis #ruled out Meningitis #Tonic clonic seizure #Cerebral palsy -continue Keppra and Depakote -Consider going down on Phenobarbital gradually. -seizure precautions -midazolam for breakthrough seizure as needed MRI brain: chronic pansinusitis. CSF analysis x2 : unremarkable. #Paraphimosis #Normocytic Anemia #Respiratory failure: s/p tracheostomy and on vent support Primary care team to manage above conditions and ongoing care needs.
[2025-06-02] MEDS: MIDAZOLAM INJ 1 MG/ML VIAL 2 ML IVP ×3 (04:20→20:05)
[2025-06-02] MEDS: VALPROIC ACID SYRUP 250 MG/5 ML UDC GT ×3 (05:05→21:46)
[2025-06-02] MEDS: oxyCODONE HCL 5 MG IR TAB 15 MG PO ×3 (05:05→21:46)
[2025-06-02 06:18] LABS: Basophils # (Auto) 0.1 Thou/mm3 (0.0-0.2); Basophils % (Auto) 1 % (0-2.5); Eosinophils # (Auto) 0.5 Thou/mm3 (0.0-0.5); Eosinophils % (Auto) 3 % (0-10); Hematocrit 26.1 % (41.0-53.0); Immature Granulocytes Auto 0.31 Thou/mm3 (0.00-0.00); Lymphocytes # (Auto) 2.6 Thou/mm3 (1.0-4.8); Lymphocytes % (Auto) 17 % (10-50); Mean Corpuscular HGB Conc 32.6 g/dl (31.0-37.0); Mean Corpuscular Hemoglobin 27.3 pg (25.0-35.0); Mean Corpuscular Volume 84 fL (80-100); Monocytes # (Auto) 2.0 Thou/mm3 (0.0-0.8); Monocytes % (Auto) 13 % (0-12); Neutrophils # (Auto) 9.9 Thou/mm3 (1.8-7.7); Neutrophils % (Auto) 64 % (37-80); Nucleated Red Blood Cell # 0.00 Thou/mm3 (0.00-0.00); Nucleated Red Blood Cell % 0 /100 WBC (0); Platelet Count 537 Thou/mm3 (140-440); RDW Standard Deviation 47.0 fL (35.1-43.9); Red Blood Count 3.11 Miln/mm3 (4.50-5.90); White Blood Count 15.4 Thou/mm3 (3.8-10.6)
[2025-06-02 06:26] LABS: Hemoglobin 8.5 g/dL (13.5-16.0)
[2025-06-02 06:43] LABS: HSV-2 DNA, CSF NOT DETECTED copies/mL; VDRL, CSF Qual* NON-REACTIVE; West Nile Virus (IgM), CSF <0.90
[2025-06-02 06:53] LABS: Alanine Aminotransferase 60 U/L (10-49); Albumin, Serum 4.2 gm/dL (3.5-5.0); Albumin/Globulin Ratio 1.4 (1.2-2.2); Alkaline Phosphatase 309 U/L (46-116); Anion Gap 11 (7-16); Aspartate Amino Transferase 47 U/L (0-34); BUN/Creatinine Ratio 24 Ratio (12-20); Bilirubin,Total 0.3 mg/dL (0.3-1.2); Blood Urea Nitrogen 17 mg/dL (9-23); Calcium 10.0 mg/dL (8.3-10.6); Calcium (Corrected) 10.0 mg/dL (8.5-10.1); Carbon Dioxide 25.8 mMol/L (20.0-31.0); Chloride 98 mMol/L (98-107); Creatinine (Component) 0.7 mg/dL (0.6-1.3); Estimated Creatinine Clearance 127.6 mL/min (>60); Globulin 2.9 gm/dL (2.3-3.5); Glucose 109 mg/dL (74-106); Magnesium 1.8 mg/dL (1.6-2.6); Osmolality,Calculated 272 (275-295); Phosphorous 5.8 mg/dL (2.4-5.1); Potassium 4.1 mMol/L (3.4-5.1); Procalcitonin 0.22 ng/ml (0.0-0.49); Sodium 135 mMol/L (136-145); Total Protein 7.1 gm/dL (5.7-8.2); eGFR > 60 See Note
[2025-06-02] MEDS: ENOXAPARIN SOD INJ 80 MG/0.8 ML SYRINGE 70 MG SC ×2 (09:37→20:06)
[2025-06-02] MEDS: CALCIUM CARBONATE 600 MG TABLET GT (09:37)
[2025-06-02] MEDS: SEVELAMER CARBONATE 0.8 GM PACKET (NON-FORMULARY) GT ×3 (09:37→17:43)
[2025-06-02] MEDS: POLYETHYLENE GLYCOL 17 GM PACKET PO (09:37)
[2025-06-02] MEDS: LANSOPRAZOLE 30 MG TAB.RAP.DR GT (09:37)
[2025-06-02] MEDS: levETIRAcetam LIQD 500 MG/5 ML UDC 750 MG GT ×2 (09:37→20:06)
[2025-06-02] MEDS: MICAFUNGIN SODIUM INJ 100 MG in SODIUM CHLORIDE 0.9% 100 ML IV (10:03)
--- NOTE | 2025-06-02 11:32 | ESPR_ITS ---
<Statement entered by Robert Cross MD - 06/02/25 17:02> Patient was seen and examined at bedside. I agree on the assessment and plan on this note as documented by resident Ninfa Molina MD PGY1. 24-year-old male with prolonged hospital course admitted for sepsis secondary to chronic mastoiditis, sinusitis, downgraded from ICU, length of stay 25 days status post tracheostomy on pressure support mechanical ventilation, pressure support decreased to 9, PEEP 6, patient tolerating well. Will decrease phenobarbital dose to twice daily as well, patient continues to have episodes of fever likely attributed to chronic mastoiditis, will try to reach out to ENT, started on ciprofloxacin drops, will continue. Patient is being followed by neurology, urology, pulmonology, infectious disease and general surgery. Prognosis remains guarded, family was updated at bedside about patient's condition today. Will continue to monitor for fever, will consider low-dose ibuprofen to manage fever. Case discussed with attending Dr. Cortez Moreno MD PGY-2 Documentation for date of: 06/02/25 Subjective Subjective Interval history: Patient is seen and examined by bedside. No event overnight. Patient is comfortable. Per nurse highest temperature 100.0 and heart rate 140s. Vital signs are currently stable. Patient is afebrile. Exam Vital Signs Temp Pulse Resp BP Pulse Ox O2 Del Method O2 Flow Rate 98.4 F 121 H 24 H 126/83 95 Mechanical Ventilation 35 06/02/25 07:56 06/02/25 07:56 06/02/25 07:56 06/02/25 07:56 06/02/25 07:56 06/02/25 07:56 06/02/25 07:56 FiO2 30 06/02/25 07:56 Narrative Exam General: Sedated and trached, on pressure support ventilation mode, in no acute distress. HEENT: NCAT, EOMI, Pupils reactive KARLO, not icteric, Right inferior eye scleral hemorrhage. External ears normal. No rhinorrhea. Moist mucous membranes. Neck: Supple, full range of motion, no observable masses, No meningeal sign. Heart: Tachycardic. Regular rate and rhythm, normal S1 and S2, no murmurs appreciated. Lungs: Coarse mechanical breath sounds bilaterally, no respiratory distress. Abdomen: Soft, nondistended, nontender, positive bowel sounds. No guarding or rebound tenderness. PEG tube in place. MSK: No lower extremity edema no redness, peripheral pulses presents, Contracted and swollen hands bilateral. Neurologic: Unable to assess due to patient's medical condition, pupils reactive : Foreskin unretractable, no discharge appreciated Skin: No petechiae, lesions, ecchymosis. Right axillary erythema, consistent with phlebitis. Left antecubital dermatitis Objective Labs 06/03/25 05:36 06/03/25 05:36 Labs: Laboratory Results - last 24 hr 05/26/25 06/02/25 19:30 05:19 WBC 15.4 H RBC 3.11 L Hgb 8.5 L Hct 26.1 L MCV 84 MCH 27.3 MCHC 32.6 RDW Std Deviation 47.0 H Plt Count 537 H D Neut % (Auto) 64 Lymph % (Auto) 17 [place] % (Auto) 13 H Eos % (Auto) 3 Baso % (Auto) 1 Neut # (Auto) 9.9 H Lymph # (Auto) 2.6 [place] # (Auto) 2.0 H Eos # (Auto) 0.5 Baso # (Auto) 0.1 Immature Gran # (Auto) 0.31 H Absolute Nucleated RBC 0.00 Immature Gran % 2 H Nucleated RBC % 0 Sodium 135 L Potassium 4.1 D Chloride 98 Carbon Dioxide 25.8 Anion Gap 11 BUN 17 Creatinine 0.7 Estim Creat Clear Calc 127.6 eGFR > 60 BUN/Creatinine Ratio 24 H Glucose 109 H Calculated Osmolality 272 L Calcium 10.0 Corrected Calcium 10.0 Phosphorus 5.8 H Magnesium 1.8 Total Bilirubin 0.3 AST 47 H ALT 60 H Alkaline Phosphatase 309 H D Total Protein 7.1 Albumin 4.2 Globulin 2.9 Albumin/Globulin Ratio 1.4 Procalcitonin 0.22 CSF Source CEREBROSPINAL FLUID CSF VDRL NON-REACTIVE CSF Herpes I DNA (PCR) NOT DETECTED CSF Herpes II DNA (PCR) NOT DETECTED CSF West Nile IgG Ab <1.30 CSF [place] IgM Ab <0.90 ABG Interpretation ABG results: 05/09/25 05/09/25 05/09/25 11:56 13:40 18:50 ABG pH 7.40 7.27 L D 7.28 L ABG pCO2 40 43 55 H D ABG pO2 131 H 53 L* D 70 L ABG HCO3 25 20 26 ABG O2 Saturation 99 H 81 L 92 ABG Base Excess 0 -7 L -2 VBG pH VBG pCO2 VBG pO2 VBG Base Excess 05/10/25 05/11/25 05/12/25 00:14 05:06 01:18 ABG pH 7.35 7.33 L 7.39 ABG pCO2 42 D 54 H D 48 ABG pO2 103 D 93 94 ABG HCO3 23 28 H 29 H ABG O2 Saturation 99 H 98 98 ABG Base Excess -3 2 3 VBG pH VBG pCO2 VBG pO2 VBG Base Excess 05/12/25 05/12/25 05/13/25 03:58 11:50 05:10 ABG pH 7.46 H 7.39 7.19 L* D ABG pCO2 41 48 60 H D ABG pO2 105 58 L* D 114 H D ABG HCO3 29 H 29 H 23 ABG O2 Saturation 99 H 90 L 98 ABG Base Excess 5 H 4 H -6 L VBG pH VBG pCO2 VBG pO2 VBG Base Excess 05/17/25 05/18/25 05/19/25 01:30 04:09 04:43 ABG pH 7.38 7.43 7.47 H ABG pCO2 46 44 43 ABG pO2 90 83 80 L ABG HCO3 27 H 29 H 31 H ABG O2 Saturation 98 97 97 ABG Base Excess 2 5 H 7 H VBG pH VBG pCO2 VBG pO2 VBG Base Excess 05/21/25 05/21/25 05/31/25 04:18 06:33 08:06 ABG pH 7.37 D 7.46 H ABG pCO2 50 H 38 D ABG pO2 40 L* D 121 H D ABG HCO3 29 H 27 H ABG O2 Saturation 66 L 100 H ABG Base Excess 3 3 VBG pH 7.55 VBG pCO2 31 L VBG pO2 144 H VBG Base Excess 5 H Quality Measures Quality Measures VTE prophylaxis (SCDs) and sepsis Current suspected stage: sepsis Possible source: pulmonary Blood cultures ordered: yes Antibiotic ordered: Yes Assessment & Plan Assessment Current Active Medications: Generic Name Dose Route Start Last Admin Trade Name Freq PRN Reason Stop Dose Admin Acetaminophen 650 mg 05/28/25 10:36 06/01/25 09:49 Acetaminophen Racquel 325 Mg/10 Ml Udc NG 06/27/25 10:35 650 mg Q4HR PRN Administration fever >100.4 Albuterol/Ipratropium 3 ml 05/09/25 18:19 05/28/25 06:34 Albuterol/Ipratropium (Duoneb) Rt Racqeul 3 Ml Nebu INH 06/08/25 18:18 3 ml Q2HR PRN Administration SHORTNESS OF BREATH OR WHEEZE Calcium Carbonate 600 mg 05/20/25 18:20 06/02/25 09:37 Calcium Carbonate 600 Mg Tablet GT 06/19/25 18:19 600 mg QDAY KYA Administration Enoxaparin Sodium 70 mg 05/30/25 21:00 06/02/25 09:37 Enoxaparin Sod Inj 80 Mg/0.8 Ml Syringe SC 06/13/25 20:59 70 mg BID KYA Administration Ferrous Sulfate 325 mg 06/01/25 09:00 06/01/25 08:54 Ferrous Sulfate 300 Mg/5 Ml Udc PO 07/01/25 08:59 325 mg QOD KYA Administration Micafungin Sodium 100 mg/ 100 mls @ 100 mls/hr 06/01/25 13:30 06/02/25 10:03 Sodium Chloride IV 06/16/25 13:29 100 mls/hr QDAY KYA Administration Lansoprazole 30 mg 05/28/25 09:00 06/02/25 09:37 Lansoprazole 30 Mg Tab.Rap GT 06/27/25 08:59 30 mg QDAY KYA Administration Levetiracetam 750 mg 05/30/25 09:00 06/02/25 09:37 Levetiracetam Liqd 500 Mg/5 Ml Udc GT 06/29/25 08:59 750 mg BID KYA Administration Midazolam HCl 1 mg 05/30/25 18:49 06/02/25 11:29 Midazolam Inj 1 Mg/Ml Vial 2 Ml IVP 06/04/25 18:48 1 mg Q3HR PRN Administration AGITATION OR ANXIETY Ondansetron HCl 4 mg 05/27/25 14:37 Ondansetron Odt 4 Mg Tabrap GT 06/26/25 14:36 Q6HR PRN NAUSEA OR VOMITING Protocol Oxycodone HCl 15 mg 05/31/25 14:00 06/02/25 05:05 Oxycodone Hcl 5 Mg Ir Tab PO 06/05/25 13:59 15 mg TID KYA Administration Phenobarbital 64.8 mg 06/02/25 21:00 Phenobarbital 32.4 Mg Tablet GT 06/16/25 20:59 Q12HR KYA Polyethylene Glycol 17 gm 05/16/25 09:15 06/02/25 09:37 Polyethylene Glycol 17 Gm Packet PO 06/15/25 09:14 17 gm QDAY KYA Administration Sevelamer Carbonate 0.8 gm 05/27/25 08:00 06/02/25 09:37 Sevelamer Carbonate 0.8 Gm Packet (Non-Formulary) GT 06/26/25 07:59 0.8 gm TIDWM KYA Administration Sodium Chloride 3 ml 05/17/25 11:43 Sodium Chloride Rt Racquel 0.9% 3 Ml Nebu INH 06/16/25 11:42 PRN PRN SOLN Valproic Acid 250 mg 05/27/25 18:00 06/02/25 05:05 Valproic Acid Syrup 250 Mg/5 Ml Udc GT 06/26/25 17:59 250 mg Q8HR KYA Administration Plan #Intermittent fever of unknown origin #Persistent sinus tachycardia Patient did not have an fever overnight, currently on micafungin started yesterday by Dr. Armendariz. ID, Dr. Rubio, consulted, appreciated recs: Likely noninfectious fever, can proceed with antifungals, no need for antibiotics right now. Fever unlikely caused by CMV, or Meenakshi in sputum. If needed to treat for yeast in sputum, recommend that fluconazole enteral. Prognosis guarded with continuing vent needs. Treatment Plan: - Pending blood culture - Tylenol for fever as needed - Avoid serotonergic agents - Continue to monitor HR - Continue close cardiac monitoring. - Monitor electrolytes and replete as needed. - Maintain Mg > 2 and K > 4 to reduce arrhythmia risk. #Chronic trach tube dependent #Ventilator dependent Patient is currently on pressure support mode. Sedated with phenobarbital 64.8 mg every 8 hour and oxycodone 15 mg p.o. 3 times daily. Neurologist, Dr. Lang, recommended weaning off sedation. Patient has history of agitation with SAT in ICU. Goal is to wean off of ventilator to blow-by Treatment plan: - Start weaning phenobarbital 64.8 mg every 8 hours to every 12 hours - Monitor for agitation during SAT - If pressure support requirement increased, consider SIMV - Patient is currently on pressure support mode - If patient tolerates phenobarbital tapering, plan to down titrate oxycodone tomorrow ? #Paraphimosis (resolved) #Balanitis (resolved) #Phimosis Diagnostic Test: - Edema and tenderness of the glans penis. - Swelling of the distal retracted foreskin. - Constricting band of tissue proximal to the head of the penis at the coronal sulcus. - Hawkins was removed on 05/09 and transitioned to Oivi external urinary catheter. Discussed with family about the need to reinsert hawkins due to the patient's acute urinary retention. Family were in agreement with this plan. Hawkins was reinserted on 05/10 due to urinary retention. Hawkins changed and replaced on 05/16. Currently on straight cath protocol as needed. - S/p reduction of the paraphimosis by Dr. Vargas on 05/09. - 05/29/2025 Patient noticed to have unretractable foreskin Treatment Plan: - Per ICU team, pending possible partial dorsal slit when urologist returns on Wednesday 06/06 - Control patient's pain with sedation, titrate down. - Monitor urine output. #Agitated delerium #Serotonin Syndrome? Patient was extremely agitated before ICU admission, likely due to pain from paraphimosis. Patient initially sedated with propofol and fentanyl, titrated to Precedex with Benadryl before extubation. Patient failed extubation and was intubated on 05/12. Propofol and fentanyl was restarted. Still spiking fevers and tachycardic, possible serotonin syndrome Diagnostic Test: - EEG did not show seizure activity per neurology. - MRI brain 05/23: showed chronic infections, no acute pathology. Treatment Plan: - Start weaning phenobarbital 64.8 mg every 8 hours to every 12 hours - Clonazepam 2 mg TID. - If patient tolerates phenobarbital tapering, plan to down titrate oxycodone tomorrow - off Versed drip - Neurology consulted, appreciate recommendations. - Avoid medications that may precipitate serotonin syndrome including guaifenesin and fentanyl #History of seizures #Cerebral palsy - Temperature of 105F on admission. - EEG 05/11 unremarkable - Repeat EEG 05/20: electrographic seizure activity. - Persistent fever spikes. - Continuous EEG 05/22-05/23: no seizure activity or status epilepticus. Treatment Plan: - Levetiracetam 750 mg BID. - Adjust seizure medications if breakthrough seizures recur - Seizure precautions. - Aspiration precautions. -Neurology on board, appreciate recs #Failed extubation 05/12 #Acute hypoxic respiratory failure s/p tracheostomy Diagnostic Test: - CXR 05/11: Mild bilateral perihilar pneumonia. To assess for ventilator associated pneumonia. Not much change from 05/09 CXR. - Resistant Pseudomonas from ETT secretions previously (05/09). - CXR 05/19: Significant bilateral pneumonia. Repeat Cocci serology test was negative - 05/20 sputum culture grew meenakshi Treatment Review (completed): - Patient extubated to [facility] 05/12, chest film with centro-bronchovascular congestion and multifocal pneumonia. - Reintubated overnight 05/13- VC/AC PPeak 20 PEEP 5 FiO2 40%. - Patient underwent bronchoscopy on 05/14 and 05/17 for secretions, well tolerated. - Patient underwent tracheostomy on 05/26/2025 - Meropenem (05/12-05/17, 05/19-05/22, for a total of ten days). Treatment Plan: - DC'd micafungin 100mg qday 05/28-05/30 - Chest physiotherapy daily #Bronchospasm #History of asthma Diagnostic Test: - Although the patient has a history of asthma, the bronchospasm is most likely from the irritant effect of blood in the airway. A small amount of blood, which was likely from dryness of the nasal mucosa, was suctioned out during intubation. Treatment Plan: - Magnesium for bronchodilator effect as needed. - Albuterol and Ipratropium as needed. #Chronic PEG tube dependence Treatment Plan: - Transitioned to Nepro 1.8 at 35 mL/hr x 24 hrs via PEG tube by pump (goal). If no IV fluids, water flushes of 55 mL/hr - ProStat 30ml BID via PEG tube. - Appreciate appraisal specialist recommendations. - Monitor Triglyceride level #Hepatitis (improving) Likely due to meropenem or tylenol that could potentially cause hepatotoxicity. Diagnostic Test: - Gallbladder ultrasound 05/16: Normal gallbladder, no gallstones. Fatty infiltration throughout the liver. Treatment Plan: - Continue daily LFTs. - Will reassess if transaminases continue to rise or clinical status changes. #Acute urinary retention (resolved) Treatment Plan - Monitor urine output, replace fluid if needed. - Hawkins removed 05/23 - Every 4 hour bladder scan and straight cath as needed for >400cc. #Hypoalbuminemia (resolved) Likely due to acute hepatitis Diagnostic Test: - UA had urine proteins 1+. - Albumin 4.9 -->3.3 -->2.8 --> 3.2 --> 3.4 --> 2.8 --> 2.5---> 4--->3.9. Treatment Plan: - Maintain on PEG tube feeds per appraisal specialist recommendations. #Hyperkalemia (resolved) #Hyperphosphatemia DDx: acute kidney injury vs hemolysis vs rhabdomyolysis. Treatment Plan: - Monitor BMP and phosphorus. - Monitor potassium levels to avoid arrhythmias. - Sevelamer 800 milligram GT 3 times daily, adjust if needed. - Adjusted diet as above #Acute kidney injury (resolved) DDx: dehydration or vasodilation from sepsis. Treatment Plan: - Continue with free water flushes. - Daily renal panel to trend BUN, Cr, and electrolytes. - Avoid nephrotoxins. - Renally dose meds as appropriate. - Strict I&Os, monitor urine output closely. - Monitor for signs of volume overload or uremic symptoms. #Anion Gap Metabolic Acidosis (resolved) #Lactic acidosis (resolved) DDx: seizures vs sepsis vs acute kidney injury vs hypoperfusion. Likely from seizures as patient has no signs of systemic hypoperfusion such as skin mottling, decreased cap refills. Diagnostic Test: - Admission anion gap 22, lactic acid 16.0, bicarbonate 18.7. #Rhabdomyolysis (resolved) DDx: seizures vs hyperthermia vs infectious myositis. Diagnostic Test: - CK 1048 --> 3743 --> 1654 --> 338 --> 363. - Witnessed seizure episode lasting 5-10 seconds, characterized by tonic-clonic activity prior to admission. Treatment Plan: - Continue free water flushes at 35 cc/hr. - Monitor urine output. - Correct electrolyte abnormalities. - Control seizures with valproic acid and levetiracetam. - Monitor renal panel. #Acute nonocclusive thrombus in the left brachial vein (resolved) Diagnostic Test: - Venous doppler study of upper extremities 05/16: Normal right upper extremity deep venous system. Positive for nonocclusive thrombus in the left brachial vein. - Per chart review and patient's parents, patient does not have history of clots. Treatment Review (completed): - Lovenox 30 mg (05-11 - 05/15). - Lovenox 40 mg (05/16). - Heparin loading dose and ggt. Lovenox to heparin due to heparin?s shorter half-life, which allows for more rapid cessation in the event of bleeding, a shorter half life and can be stopped if bleeding occurs. - Stopped heparin ggt due to hematuria on 05/18. Treatment Plan: - Lovenox 70 mg SC BID for DVT treatment - Primary upper extremity deep vein thrombosis, anticoagulation should be continued for a minimum of three months following the initial thrombotic event. #Normocytic Anemia DDx: Anemia of Inflammation vs dilutional anemia vs drug-induced anemia. Likely dilutional anemia since patient had normal hemoglobin on admission and from IV fluids per sepsis protocol. No signs of bleeding. Treatment Plan: - Monitor H&H. - Type and screen. - Transfusing for Hgb <7 or symptomatic. #Thrombocytosis (Resolved) DDx: infection vs reactive Diagnostic Test: - Plt 711---> 352 Treatment Plan: - Monitor CMP. #Leukocytosis (resolved) DDx: likely due to bronchoscopy vs infection of unknown source vs drug induced Diagnostic Test: - Fever free overnight and AM -WBC 8.2 today Treatment Plan: - Treat underlying cause. #Thrombocytopenia (resolved) DDx: Dilutional versus consumption versus increased destruction due to sepsis. Initial decrease is likely due to dilutional in setting of IV fluids, however his WBC and hemoglobin have leveled off platelets have down trended. Diagnostic test: - Platelets: 209 --> 65-->141-->460. Treatment plan: - Monitor daily labs - Avoid excessive oral tracheal suctioning in setting of previous bleed and thrombocytopenia. #Sepsis #Bilateral chronic mastoiditis #Sinusitis #Bilateral otitis media #Bilateral otitis externa #Meenakshi parapsilosis DDx: meningitis vs acute on chronic mastoiditis vs acute febrile illness. Diagnostic Test: - History of chronic mastoiditis. - Met SIRS criteria on admission: T 105F, HR 176, RR 26, PaCO2 26, WBC 16.3. - 05/08 CT Head: prominent sphenoid ethmoid maxillary antral sinusitis, bilateral chronic mastoiditis, bilateral otitis media. - 05/08 CT Orbit Sella Inner: severe bilateral chronic mastoiditis, bilateral otitis externa and otitis media, bilateral cholesteatomas in the attics. - 05/09 Sputum culture: 1+ thurman resistance Pseudomonas. - 05/10 Lumbar puncture: clear, WBC 3, glucose 70, total protein 25. CSF testing negative. - 05/10 Respiratory viral panel: rhinovirus/enterovirus and human metapneumovirus detected. - 05/12 Bilateral ear culture: E coli ESBL. - UA 05/08 and 05/16 negative. - Blood culture 05/08, 05/11, and 05/16 negative. - 05/16 CXR: worsening diffuse severe left lung pneumonia. - Meenakshi parapsilosis in L ear culture Treatment Review (completed) - Rocephin 2 gm IV q12HR [05/08-05/11]. - Vancomycin dosed by pharmacy [05/08-05/11] since MRSA screen is negative. - Acyclovir 700 mg IV [05/08-05/11] since LP negative. - Fluids: 30mL/kg -- 2 L NS fluid infusion and 1 L LR fluid infusion was given in the ED. - Femoral central line removed 05/11, replaced with peripheral access. - A repeat Cocci serology test was negative Treatment Plan: - Topical oxofloxacin. - DC'd Micafungin 100mg qday 05/28-05/30 #Maculopapular rash to the buttocks DDx: contact dermatitis vs allergic dermatitis Treatment Plan - Patient no longer has diaper on. Anticipate rash to improve. Health Maintenance DVT prophylaxis: SCDs, Lovenox 70mg QD GI prophylaxis: Protonix IV Diet: Nepro 1.8 bebe Hawkins: none. Straight cath in/out q4h if urine retention more than 400 ml Lines: Peripherals, PEG tube. Drips: none Code status: Full code Assessment and plan discussed with my attending physician Dr. Dang and Dr. Cross (PGY-2). Dr. Molina (PGY-1) ? anesthesia resident Attending Provider Attestation/Addendum I have discussed and was present for the essential components of the history, physical examination, diagnosis, and treatment plan with the resident. I agree with the patient's care as documented by the resident and amended herein by me. Kade Dang DO. Although this document has been carefully reviewed, there may still be some phonetic and other typographical errors. These errors are purely grammatical due to imperfections in the software program and should not be construed in any way to compromise the substance of the patient's medical care during this visit.
[2025-06-02] MEDS: ACETAMINOPHEN SOL 325 MG/10 ML UDC 650 MG NG (12:04)
[2025-06-02] MEDS: ACETAMINOPHEN IVPB 1,000 MG/100 ML VIAL 250 MG IV (15:17)
--- NOTE | 2025-06-02 15:55 | PD.RESPRO ---
Documentation for date of: 06/02/25 Subjective Subjective Interval history: Mr Baltazar is a 24 year old male with cerebral palsy, chornically bed bound who has had a prolonged hospital stay from 05/08/2025, initially in ICU and then downgraded to medical floors on 05/31/2025. In house Neurology consulted for seizure like activity - ruled out on EEG. Also recurrent fever spikes 100 - 103F, despite negative MRIB. 06/01/2025: Patient was seen in telemetry today at the bedside. He underwent tracheostomy recently and Continued to remain on mechanical ventilatory support, off of IV sedation. No clinical seizures reported for a long time. 06/02/2025: Patient was seen and examined at bedside, appears stable. Was afebrile since 9:45 am on 06/01, but spiked fevers again around 12pm today. Sustained fever from 1453-3482, ranging 102-103.8F ; Patient tolerating tube feeds, adequate urine output and no spasms. Repeat Depakote levels ordered STAT. (last [facility] level <4 on 05/22/2025). Primary team advised to avoid Tylenol as patient develops worsening transaminitis, patient responds to Ibuprofen suspension 100mg via PEG, which usually resolves fever and spasms. Renal function wnl. Family concerned about fever, present at bedside, say he only has seizure when he spikes fevers and asked nurses to do something about it . 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 If responsive to NSAIDs, may DC if afebrile for 24 hours. Patient may need to be on a trail of blow-by for discharge, so he can get outpatient ENT follow up re: chronic ear infection. Exam Vital Signs Temp Pulse Resp BP Pulse Ox O2 Del Method O2 Flow Rate 102.8 F H 151 H 21 H 143/73 H 97 Mechanical Ventilation 35 06/02/25 14:43 06/02/25 12:14 06/02/25 12:00 06/02/25 12:00 06/02/25 12:14 06/02/25 12:00 06/02/25 12:00 FiO2 30 06/02/25 12:14 Narrative Exam Constitutional somnolent, no sedation. GCS 3. HEENT PERRLA. Patent nares. Trachea midline. Tracheostomy, chronic, on MV: Pressure support Respiratory Chest normal on inspection and clear to auscultation bilaterally. Cardiovascular S1 and S2 audible, RRR. No murmurs or carotid bruit. No gross JVD. Abdominal Soft, nontender, not distended, normal bowel sounds. PEG tube in place Genitourinary Paraphimosis of penis- resolved. Osborne with good UO Musculoskeletal Extremities tone within normal limits. No LE edema. Neurological Unable to asses CN and peripheral motor function. B/L LE fixed contractures with inward curvature. Spastic; sensation grossly intact. Skin Warm, dry and intact. No apparent lesions. Objective Labs 06/11/25 04:42 06/11/25 04:42 Labs: Laboratory Results - last 24 hr 05/26/25 06/02/25 19:30 05:19 WBC 15.4 H RBC 3.11 L Hgb 8.5 L Hct 26.1 L MCV 84 MCH 27.3 MCHC 32.6 RDW Std Deviation 47.0 H Plt Count 537 H D Neut % (Auto) 64 Lymph % (Auto) 17 [place] % (Auto) 13 H Eos % (Auto) 3 Baso % (Auto) 1 Neut # (Auto) 9.9 H Lymph # (Auto) 2.6 [place] # (Auto) 2.0 H Eos # (Auto) 0.5 Baso # (Auto) 0.1 Immature Gran # (Auto) 0.31 H Absolute Nucleated RBC 0.00 Immature Gran % 2 H Nucleated RBC % 0 Sodium 135 L Potassium 4.1 D Chloride 98 Carbon Dioxide 25.8 Anion Gap 11 BUN 17 Creatinine 0.7 Estim Creat Clear Calc 127.6 eGFR > 60 BUN/Creatinine Ratio 24 H Glucose 109 H Calculated Osmolality 272 L Calcium 10.0 Corrected Calcium 10.0 Phosphorus 5.8 H Magnesium 1.8 Total Bilirubin 0.3 AST 47 H ALT 60 H Alkaline Phosphatase 309 H D Total Protein 7.1 Albumin 4.2 Globulin 2.9 Albumin/Globulin Ratio 1.4 Procalcitonin 0.22 CSF Source CEREBROSPINAL FLUID CSF VDRL NON-REACTIVE CSF Herpes I DNA (PCR) NOT DETECTED CSF Herpes II DNA (PCR) NOT DETECTED CSF West Nile IgG Ab <1.30 CSF West Nile IgM Ab <0.90 ABG Interpretation ABG results: 05/09/25 05/09/25 05/09/25 11:56 13:40 18:50 ABG pH 7.40 7.27 L D 7.28 L ABG pCO2 40 43 55 H D ABG pO2 131 H 53 L* D 70 L ABG HCO3 25 20 26 ABG O2 Saturation 99 H 81 L 92 ABG Base Excess 0 -7 L -2 VBG pH VBG pCO2 VBG pO2 VBG Base Excess 05/10/25 05/11/25 05/12/25 00:14 05:06 01:18 ABG pH 7.35 7.33 L 7.39 ABG pCO2 42 D 54 H D 48 ABG pO2 103 D 93 94 ABG HCO3 23 28 H 29 H ABG O2 Saturation 99 H 98 98 ABG Base Excess -3 2 3 VBG pH VBG pCO2 VBG pO2 VBG Base Excess 05/12/25 05/12/25 05/13/25 03:58 11:50 05:10 ABG pH 7.46 H 7.39 7.19 L* D ABG pCO2 41 48 60 H D ABG pO2 105 58 L* D 114 H D ABG HCO3 29 H 29 H 23 ABG O2 Saturation 99 H 90 L 98 ABG Base Excess 5 H 4 H -6 L VBG pH VBG pCO2 VBG pO2 VBG Base Excess 05/17/25 05/18/25 05/19/25 01:30 04:09 04:43 ABG pH 7.38 7.43 7.47 H ABG pCO2 46 44 43 ABG pO2 90 83 80 L ABG HCO3 27 H 29 H 31 H ABG O2 Saturation 98 97 97 ABG Base Excess 2 5 H 7 H VBG pH VBG pCO2 VBG pO2 VBG Base Excess 05/21/25 05/21/25 05/31/25 04:18 06:33 08:06 ABG pH 7.37 D 7.46 H ABG pCO2 50 H 38 D ABG pO2 40 L* D 121 H D ABG HCO3 29 H 27 H ABG O2 Saturation 66 L 100 H ABG Base Excess 3 3 VBG pH 7.55 VBG pCO2 31 L VBG pO2 144 H VBG Base Excess 5 H Quality Measures Quality Measures VTE prophylaxis (SCDs) and sepsis Current suspected stage: sepsis Possible source: pulmonary Blood cultures ordered: yes Antibiotic ordered: Yes Assessment & Plan Assessment Current Active Medications: Generic Name Dose Route Start Last Admin Trade Name Freq PRN Reason Stop Dose Admin Acetaminophen 650 mg 05/28/25 10:36 06/02/25 12:04 Acetaminophen Racquel 325 Mg/10 Ml Udc NG 06/27/25 10:35 650 mg Q4HR PRN Administration fever >100.4 Albuterol/Ipratropium 3 ml 05/09/25 18:19 05/28/25 06:34 Albuterol/Ipratropium (Duoneb) Rt Racquel 3 Ml Nebu INH 06/08/25 18:18 3 ml Q2HR PRN Administration SHORTNESS OF BREATH OR WHEEZE Calcium Carbonate 600 mg 05/20/25 18:20 06/02/25 09:37 Calcium Carbonate 600 Mg Tablet GT 06/19/25 18:19 600 mg QDAY KYA Administration Ciprofloxacin 0 drop 06/02/25 15:15 Ciprofloxacin Op Racquel 0.3% 5 Ml Btl BOTH EYES 07/02/25 15:14 Q4HR KYA Enoxaparin Sodium 70 mg 05/30/25 21:00 06/02/25 09:37 Enoxaparin Sod Inj 80 Mg/0.8 Ml Syringe SC 06/13/25 20:59 70 mg BID KYA Administration Ferrous Sulfate 325 mg 06/01/25 09:00 06/01/25 08:54 Ferrous Sulfate 300 Mg/5 Ml Udc PO 07/01/25 08:59 325 mg QOD KYA Administration Micafungin Sodium 100 mg/ 100 mls @ 100 mls/hr 06/01/25 13:30 06/02/25 10:03 Sodium Chloride IV 06/16/25 13:29 100 mls/hr QDAY KYA Administration Lansoprazole 30 mg 05/28/25 09:00 06/02/25 09:37 Lansoprazole 30 Mg Tab.Rap. GT 06/27/25 08:59 30 mg QDAY KYA Administration Levetiracetam 750 mg 05/30/25 09:00 06/02/25 09:37 Levetiracetam Liqd 500 Mg/5 Ml Udc GT 06/29/25 08:59 750 mg BID KYA Administration Midazolam HCl 1 mg 05/30/25 18:49 06/02/25 11:29 Midazolam Inj 1 Mg/Ml Vial 2 Ml IVP 06/04/25 18:48 1 mg Q3HR PRN Administration AGITATION OR ANXIETY Ondansetron HCl 4 mg 05/27/25 14:37 Ondansetron Odt 4 Mg Tabrap GT 06/26/25 14:36 Q6HR PRN NAUSEA OR VOMITING Protocol Oxycodone HCl 15 mg 05/31/25 14:00 06/02/25 15:17 Oxycodone Hcl 5 Mg Ir Tab PO 06/05/25 13:59 15 mg TID KYA Administration Phenobarbital 64.8 mg 06/02/25 21:00 Phenobarbital 32.4 Mg Tablet GT 06/16/25 20:59 Q12HR KYA Polyethylene Glycol 17 gm 05/16/25 09:15 06/02/25 09:37 Polyethylene Glycol 17 Gm Packet PO 06/15/25 09:14 17 gm QDAY KYA Administration Sevelamer Carbonate 0.8 gm 05/27/25 08:00 06/02/25 12:05 Sevelamer Carbonate 0.8 Gm Packet (Non-Formulary) GT 06/26/25 07:59 0.8 gm TIDWM KYA Administration Sodium Chloride 3 ml 05/17/25 11:43 Sodium Chloride Rt Racquel 0.9% 3 Ml Nebu INH 06/16/25 11:42 PRN PRN SOLN Valproic Acid 250 mg 05/27/25 18:00 06/02/25 15:17 Valproic Acid Syrup 250 Mg/5 Ml Udc GT 06/26/25 17:59 250 mg Q8HR KYA Administration Plan David Baltazar is 24 yr male with PMH of chronic mastoiditis (previously had tympanostomy tube placed for recurrent otitis media, now removed), seizure disorder, recurrent pneumonia, cerebral palsy, chronic PEG tube, and asthma who was brought into ED on 05/08/25 for ongoing fever of over 24 hours and reported episode of witnessed seizure by ED. Patient was treated for sepsis.Neurology was consulted. Cerebral palsy Chronic pansinusitis Tonic clonic seizure Otitis Interna, severe - CSF analysis x2 : unremarkable. - Meningitis - reuled out - MRI brain: chronic pansinusitis. - Last valproic acid level <4 on 05/22/2025 - Fever spikes : afebrile since 9:45 am on 06/01, but spiked fevers again around 12pm today. Sustained fever from 1024-1444, ranging 102-103.8F Recommendations: - Continue Keppra and Depakote, patient is adequately treated. Spasms are due to fever spikes which is likely in the setting of otitis interna, as all other etiologies ruled out. - Repeat Depakote levels ordered STAT for re-evaluation - Primary team advised to avoid Tylenol as patient develops transaminitis, he responds to Ibuprofen suspension 100mg via PEG, which usually resolves fever and spasms. If responsive to NSAIDs & afebrile for 24 hours, may DC. - Patient will need to be on a trail of blow-by for discharge, so he can get outpatient ENT follow up re: chronic ear infection. - Continue Seizure precautions - May keep PRN Midazolam and Clonazepam Other medical problems: Paraphimosis - improved Normocytic Anemia, chronic Respiratory failure on MV s/p tracheostomy and on vent support, tolerating PS well Primary care team to manage above conditions and ongoing care needs. Thank you for the consult. Neurology will continue to follow the case with you Plan of care discussed with attending Neurologist Dr Lang, - Dk López M.D. 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 Attending Provider Attestation/Addendum I personally have seen and examined the patient at the bedside and agree with resident's findings, assessment and plan of care. Continue with the current management. Consider adding [place] after discussing with patient's family at the bedside to help with the dyskinetic movements.
[2025-06-02] MEDS: CIPROFLOXACIN OP SOL 0.3% 5 ML BTL BOTH EYES ×2 (17:43→21:47)
[2025-06-03] VITALS (17 sets, daily range): BP systolic 109–142; BP diastolic 60–87; PULSE 105–134; RESP 8–27; TEMP 36.6–38; O2SAT 95–100; BMI 30.7
[2025-06-03] MEDS: CIPROFLOXACIN OP SOL 0.3% 5 ML BTL BOTH EYES ×2 (02:38→05:39)
[2025-06-03] MEDS: VALPROIC ACID SYRUP 250 MG/5 ML UDC GT ×3 (05:17→21:10)
[2025-06-03] MEDS: oxyCODONE HCL 5 MG IR TAB 15 MG PO (05:18)
[2025-06-03 06:20] LABS: Basophils # (Auto) 0.1 Thou/mm3 (0.0-0.2); Basophils % (Auto) 1 % (0-2.5); Eosinophils # (Auto) 1.0 Thou/mm3 (0.0-0.5); Eosinophils % (Auto) 7 % (0-10); Hematocrit 27.2 % (41.0-53.0); Hemoglobin 9.1 g/dL (13.5-16.0); Immature Granulocytes Auto 0.27 Thou/mm3 (0.00-0.00); Lymphocytes # (Auto) 3.1 Thou/mm3 (1.0-4.8); Lymphocytes % (Auto) 23 % (10-50); Mean Corpuscular HGB Conc 33.5 g/dl (31.0-37.0); Mean Corpuscular Hemoglobin 27.7 pg (25.0-35.0); Mean Corpuscular Volume 83 fL (80-100); Monocytes # (Auto) 1.4 Thou/mm3 (0.0-0.8); Monocytes % (Auto) 11 % (0-12); Neutrophils # (Auto) 7.8 Thou/mm3 (1.8-7.7); Neutrophils % (Auto) 57 % (37-80); Nucleated Red Blood Cell # 0.00 Thou/mm3 (0.00-0.00); Nucleated Red Blood Cell % 0 /100 WBC (0); Platelet Count 332 Thou/mm3 (140-440); RDW Standard Deviation 47.3 fL (35.1-43.9); Red Blood Count 3.29 Miln/mm3 (4.50-5.90); White Blood Count 13.6 Thou/mm3 (3.8-10.6)
[2025-06-03 06:52] LABS: Alanine Aminotransferase 42 U/L (10-49); Albumin, Serum 4.2 gm/dL (3.5-5.0); Albumin/Globulin Ratio 1.2 (1.2-2.2); Alkaline Phosphatase 295 U/L (46-116); Anion Gap 14 (7-16); Aspartate Amino Transferase 48 U/L (0-34); BUN/Creatinine Ratio 26 Ratio (12-20); Bilirubin,Total 0.4 mg/dL (0.3-1.2); Blood Urea Nitrogen 13 mg/dL (9-23); Calcium 10.3 mg/dL (8.3-10.6); Calcium (Corrected) 10.3 mg/dL (8.5-10.1); Carbon Dioxide 25.1 mMol/L (20.0-31.0); Chloride 99 mMol/L (98-107); Creatinine (Component) 0.5 mg/dL (0.6-1.3); Estimated Creatinine Clearance 183.5 mL/min (>60); Globulin 3.5 gm/dL (2.3-3.5); Glucose 98 mg/dL (74-106); Magnesium 1.8 mg/dL (1.6-2.6); Osmolality,Calculated 275 (275-295); Phosphorous 5.9 mg/dL (2.4-5.1); Potassium 4.1 mMol/L (3.4-5.1); Sodium 138 mMol/L (136-145); Total Protein 7.7 gm/dL (5.7-8.2); eGFR > 60 See Note
[2025-06-03] MEDS: SEVELAMER CARBONATE 0.8 GM PACKET (NON-FORMULARY) 1 GM GT ×3 (08:37→17:15)
[2025-06-03] MEDS: MICAFUNGIN SODIUM INJ 100 MG in SODIUM CHLORIDE 0.9% 100 ML IV (08:39)
[2025-06-03] MEDS: ENOXAPARIN SOD INJ 80 MG/0.8 ML SYRINGE 70 MG SC ×2 (08:39→21:10)
[2025-06-03] MEDS: CALCIUM CARBONATE 600 MG TABLET GT (08:40)
[2025-06-03] MEDS: levETIRAcetam LIQD 500 MG/5 ML UDC 750 MG GT ×2 (08:40→21:10)
[2025-06-03] MEDS: LANSOPRAZOLE 30 MG TAB.RAP.DR GT (08:40)
--- NOTE | 2025-06-03 08:47 | PC.SS ---
Follow up note: Pt is on peg/trach/vent. Attempt to wean off vent. [place] fever. Dr. Ojeda's recommendations pending. Pt possibly will require Subacute placement.
--- NOTE | 2025-06-03 09:38 | ESPR_ITS ---
Subjective Subjective Interval history: on micafungin per icu team. so they can f/u on duration. fevers continue so it does not seem to be working no other cause. cxr neg. no sz. can not r/o drug fever as many meds continued Exam Vital Signs Temp Pulse Resp BP Pulse Ox O2 Del Method O2 Flow Rate 97.9 F 121 H 26 H 113/81 96 Mechanical Ventilation 35 06/03/25 08:00 06/03/25 08:00 06/03/25 08:00 06/03/25 08:00 06/03/25 08:00 06/03/25 08:00 06/02/25 16:00 FiO2 30 06/03/25 06:23 Narrative Exam exam remains non focal as before 30% on vent. no active sz noted. no dvt noted. some contractures of feet noted. Objective - Internal Medicine Labs 06/03/25 05:36 06/03/25 05:36 Labs: Laboratory Results - last 24 hr 06/03/25 05:36 WBC 13.6 H RBC 3.29 L Hgb 9.1 L Hct 27.2 L MCV 83 MCH 27.7 MCHC 33.5 RDW Std Deviation 47.3 H Plt Count 332 D Neut % (Auto) 57 Lymph % (Auto) 23 [place] % (Auto) 11 Eos % (Auto) 7 Baso % (Auto) 1 Neut # (Auto) 7.8 H Lymph # (Auto) 3.1 [place] # (Auto) 1.4 H Eos # (Auto) 1.0 H Baso # (Auto) 0.1 Immature Gran # (Auto) 0.27 H Absolute Nucleated RBC 0.00 Immature Gran % 2 H Nucleated RBC % 0 Sodium 138 Potassium 4.1 Chloride 99 Carbon Dioxide 25.1 Anion Gap 14 BUN 13 Creatinine 0.5 L Estim Creat Clear Calc 183.5 eGFR > 60 BUN/Creatinine Ratio 26 H Glucose 98 Calculated Osmolality 275 Calcium 10.3 Corrected Calcium 10.3 H Phosphorus 5.9 H Magnesium 1.8 Total Bilirubin 0.4 AST 48 H ALT 42 Alkaline Phosphatase 295 H Total Protein 7.7 Albumin 4.2 Globulin 3.5 Albumin/Globulin Ratio 1.2 ABG Interpretation ABG results: 05/09/25 05/09/25 05/09/25 11:56 13:40 18:50 ABG pH 7.40 7.27 L D 7.28 L ABG pCO2 40 43 55 H D ABG pO2 131 H 53 L* D 70 L ABG HCO3 25 20 26 ABG O2 Saturation 99 H 81 L 92 ABG Base Excess 0 -7 L -2 VBG pH VBG pCO2 VBG pO2 VBG Base Excess 05/10/25 05/11/25 05/12/25 00:14 05:06 01:18 ABG pH 7.35 7.33 L 7.39 ABG pCO2 42 D 54 H D 48 ABG pO2 103 D 93 94 ABG HCO3 23 28 H 29 H ABG O2 Saturation 99 H 98 98 ABG Base Excess -3 2 3 VBG pH VBG pCO2 VBG pO2 VBG Base Excess 05/12/25 05/12/25 05/13/25 03:58 11:50 05:10 ABG pH 7.46 H 7.39 7.19 L* D ABG pCO2 41 48 60 H D ABG pO2 105 58 L* D 114 H D ABG HCO3 29 H 29 H 23 ABG O2 Saturation 99 H 90 L 98 ABG Base Excess 5 H 4 H -6 L VBG pH VBG pCO2 VBG pO2 VBG Base Excess 05/17/25 05/18/25 05/19/25 01:30 04:09 04:43 ABG pH 7.38 7.43 7.47 H ABG pCO2 46 44 43 ABG pO2 90 83 80 L ABG HCO3 27 H 29 H 31 H ABG O2 Saturation 98 97 97 ABG Base Excess 2 5 H 7 H VBG pH VBG pCO2 VBG pO2 VBG Base Excess 05/21/25 05/21/25 05/31/25 04:18 06:33 08:06 ABG pH 7.37 D 7.46 H ABG pCO2 50 H 38 D ABG pO2 40 L* D 121 H D ABG HCO3 29 H 27 H ABG O2 Saturation 66 L 100 H ABG Base Excess 3 3 VBG pH 7.55 VBG pCO2 31 L VBG pO2 144 H VBG Base Excess 5 H Assessment & Plan A&P Narrative viral findings on pcr testing at health de[facility]. cmv pos in csf initially, repeat pending resp failure fuo procal neg 06/02 procal insensitive to fungal antigens I am ok with him off abx entirely. procal has mostly been neg for a long time now so value of more abx seems low.and despite icu insistence. it looks like the response to antifungal rx is absent. would not target the cmv. tests suggest old cmv and ebv value of rx seems low. hardest thing to do is stop meds but that is often what is needed. meenakshi in sputum also not felt to be a pathogen. so would not target the meenakshi either. but if you insist on rx, then flucon enterally ok for yeast in sputum but cxr is neg so value seems low will f/u friday. prognosis guarded with continued vent needs hiv again cancelled so I re ordered it today I will be away in [facility] for a week and back next friday. sadly, this may be all drug related fever but hardest thing to do is stop meds Time Spent With Patient Time: Total time spent is greater than 50% in coordination of care (as documented) at patient's floor/unit and/or counseling patient:
--- NOTE | 2025-06-03 10:59 | ESPR_ITS ---
<Statement entered by Kamlesh Baer MD - 06/04/25 14:47> Patient seen and examined at bedside. I discussed and supervised with the hr intern physician who took care of this patient. I personally saw and examined the patient. I agree with most of the assessment and plan. Plan of care discussed with attending Dr. Dang. Kamlesh Baer MD PGY-2 Documentation for date of: 06/03/25 Subjective Subjective Interval history: Patient continued to have intermittent fever at night. Patient tolerated weaning of Phenobarbital, seemed more alert today. ENT, Dr. Ojeda, consulted, appreciated recs. Mother was updated by bedside yesterday. Exam Vital Signs Temp Pulse Resp BP Pulse Ox O2 Del Method O2 Flow Rate 97.9 F 121 H 26 H 113/81 96 Mechanical Ventilation 35 06/03/25 08:00 06/03/25 08:00 06/03/25 08:00 06/03/25 08:00 06/03/25 08:00 06/03/25 08:00 06/02/25 16:00 FiO2 30 06/03/25 08:00 Narrative Exam General: Sedated and trached, on pressure support ventilation mode, in no acute distress. HEENT: NCAT, EOMI, Pupils reactive KARLO, not icteric, Right inferior eye scleral hemorrhage. External ears normal. No rhinorrhea. Moist mucous membranes. Neck: Supple, full range of motion, no observable masses, No meningeal sign. Heart: Tachycardic. Regular rate and rhythm, normal S1 and S2, no murmurs appreciated. Lungs: Coarse mechanical breath sounds bilaterally, no respiratory distress. Abdomen: Soft, nondistended, nontender, positive bowel sounds. No guarding or rebound tenderness. PEG tube in place. MSK: No lower extremity edema no redness, peripheral pulses presents, Contracted and swollen hands bilateral. Neurologic: Unable to assess due to patient's medical condition, pupils reactive : Foreskin unretractable, no discharge appreciated Skin: No petechiae, lesions, ecchymosis. Right axillary erythema, consistent with phlebitis. Left antecubital dermatitis Objective Labs 06/04/25 05:30 06/04/25 05:30 Labs: Laboratory Results - last 24 hr 06/03/25 05:36 WBC 13.6 H RBC 3.29 L Hgb 9.1 L Hct 27.2 L MCV 83 MCH 27.7 MCHC 33.5 RDW Std Deviation 47.3 H Plt Count 332 D Neut % (Auto) 57 Lymph % (Auto) 23 Swisher % (Auto) 11 Eos % (Auto) 7 Baso % (Auto) 1 Neut # (Auto) 7.8 H Lymph # (Auto) 3.1 Swisher # (Auto) 1.4 H Eos # (Auto) 1.0 H Baso # (Auto) 0.1 Immature Gran # (Auto) 0.27 H Absolute Nucleated RBC 0.00 Immature Gran % 2 H Nucleated RBC % 0 Sodium 138 Potassium 4.1 Chloride 99 Carbon Dioxide 25.1 Anion Gap 14 BUN 13 Creatinine 0.5 L Estim Creat Clear Calc 183.5 eGFR > 60 BUN/Creatinine Ratio 26 H Glucose 98 Calculated Osmolality 275 Calcium 10.3 Corrected Calcium 10.3 H Phosphorus 5.9 H Magnesium 1.8 Total Bilirubin 0.4 AST 48 H ALT 42 Alkaline Phosphatase 295 H Total Protein 7.7 Albumin 4.2 Globulin 3.5 Albumin/Globulin Ratio 1.2 ABG Interpretation ABG results: 05/09/25 05/09/25 05/09/25 11:56 13:40 18:50 ABG pH 7.40 7.27 L D 7.28 L ABG pCO2 40 43 55 H D ABG pO2 131 H 53 L* D 70 L ABG HCO3 25 20 26 ABG O2 Saturation 99 H 81 L 92 ABG Base Excess 0 -7 L -2 VBG pH VBG pCO2 VBG pO2 VBG Base Excess 05/10/25 05/11/25 05/12/25 00:14 05:06 01:18 ABG pH 7.35 7.33 L 7.39 ABG pCO2 42 D 54 H D 48 ABG pO2 103 D 93 94 ABG HCO3 23 28 H 29 H ABG O2 Saturation 99 H 98 98 ABG Base Excess -3 2 3 VBG pH VBG pCO2 VBG pO2 VBG Base Excess 05/12/25 05/12/25 05/13/25 03:58 11:50 05:10 ABG pH 7.46 H 7.39 7.19 L* D ABG pCO2 41 48 60 H D ABG pO2 105 58 L* D 114 H D ABG HCO3 29 H 29 H 23 ABG O2 Saturation 99 H 90 L 98 ABG Base Excess 5 H 4 H -6 L VBG pH VBG pCO2 VBG pO2 VBG Base Excess 05/17/25 05/18/25 05/19/25 01:30 04:09 04:43 ABG pH 7.38 7.43 7.47 H ABG pCO2 46 44 43 ABG pO2 90 83 80 L ABG HCO3 27 H 29 H 31 H ABG O2 Saturation 98 97 97 ABG Base Excess 2 5 H 7 H VBG pH VBG pCO2 VBG pO2 VBG Base Excess 05/21/25 05/21/25 05/31/25 04:18 06:33 08:06 ABG pH 7.37 D 7.46 H ABG pCO2 50 H 38 D ABG pO2 40 L* D 121 H D ABG HCO3 29 H 27 H ABG O2 Saturation 66 L 100 H ABG Base Excess 3 3 VBG pH 7.55 VBG pCO2 31 L VBG pO2 144 H VBG Base Excess 5 H Quality Measures Quality Measures VTE prophylaxis (SCDs) and sepsis Current suspected stage: sepsis Possible source: pulmonary Blood cultures ordered: yes Antibiotic ordered: Yes Assessment & Plan Assessment Current Active Medications: Generic Name Dose Route Start Last Admin Trade Name Freq PRN Reason Stop Dose Admin Albuterol/Ipratropium 3 ml 05/09/25 18:19 05/28/25 06:34 Albuterol/Ipratropium (Duoneb) Rt Racquel 3 Ml Nebu INH 06/08/25 18:18 3 ml Q2HR PRN Administration SHORTNESS OF BREATH OR WHEEZE Ciprofloxacin/Dexamethasone 3 drop 06/03/25 10:30 Ciprofloxacin/Dexam Otic Susp 7.5 Ml Btl BOTH EARS 07/03/25 10:29 BID KYA Enoxaparin Sodium 70 mg 05/30/25 21:00 06/03/25 08:39 Enoxaparin Sod Inj 80 Mg/0.8 Ml Syringe SC 06/13/25 20:59 70 mg BID KYA Administration Ferrous Sulfate 325 mg 06/01/25 09:00 06/03/25 08:40 Ferrous Sulfate 300 Mg/5 Ml Udc PO 07/01/25 08:59 325 mg QOD KYA Administration Ibuprofen 100 mg 06/03/25 09:49 Ibuprofen Susp 100 Mg/5 Ml Udc PO 07/03/25 09:48 Q6HR PRN Fever > 100.3 Lansoprazole 30 mg 05/28/25 09:00 06/03/25 08:40 Lansoprazole 30 Mg Tab. GT 06/27/25 08:59 30 mg QDAY KYA Administration Levetiracetam 750 mg 05/30/25 09:00 06/03/25 08:40 Levetiracetam Liqd 500 Mg/5 Ml Udc GT 06/29/25 08:59 750 mg BID KYA Administration Midazolam HCl 1 mg 05/30/25 18:49 06/02/25 20:05 Midazolam Inj 1 Mg/Ml Vial 2 Ml IVP 06/04/25 18:48 1 mg Q3HR PRN Administration AGITATION OR ANXIETY Ondansetron HCl 4 mg 05/27/25 14:37 Ondansetron Odt 4 Mg Tabrap GT 06/26/25 14:36 Q6HR PRN NAUSEA OR VOMITING Protocol Oxycodone HCl 10 mg 06/03/25 14:00 Oxycodone Hcl 5 Mg Ir Tab PO 06/08/25 13:59 TID KYA Phenobarbital 64.8 mg 06/02/25 21:00 06/03/25 08:40 Phenobarbital 32.4 Mg Tablet GT 06/16/25 20:59 64.8 mg Q12HR KYA Administration Polyethylene Glycol 17 gm 05/16/25 09:15 06/03/25 08:29 Polyethylene Glycol 17 Gm Packet PO 06/15/25 09:14 Not Given QDAY KYA Sevelamer Carbonate 1 gm 06/03/25 08:00 06/03/25 08:37 Sevelamer Carbonate 0.8 Gm Packet (Non-Formulary) GT 07/03/25 07:59 1 gm TIDWM KYA Administration Sodium Chloride 3 ml 05/17/25 11:43 Sodium Chloride Rt Racquel 0.9% 3 Ml Nebu INH 06/16/25 11:42 PRN PRN SOLN Valproic Acid 250 mg 05/27/25 18:00 06/03/25 05:17 Valproic Acid Syrup 250 Mg/5 Ml Udc GT 06/26/25 17:59 250 mg Q8HR KYA Administration Plan #Intermittent fever of unknown origin #Persistent sinus tachycardia #Left otitis externa ENT, Dr. Ojeda, consulted, diagnosed with left otitis externa, appreciated recs. Neurologist, Dr. Lang, following. Treatment Plan: - Acetic acid irrigation to the left ear followed by Clotrimazole twice a day for 10 days - Avoids water in both ears - Pending Clotrimazole order from pharmacy, need to place order on 06/04 - Pending blood culture - Changed Tylenol to ibuprofen for fever as needed - Avoid serotonergic agents - Continue to monitor HR - Continue close cardiac monitoring. - Monitor electrolytes and replete as needed. - Maintain Mg > 2 and K > 4 to reduce arrhythmia risk. #Chronic trach tube dependent #Ventilator dependent Patient is currently on pressure support mode. Sedated with phenobarbital 64.8 mg every 12 hour and oxycodone 15 mg p.o. 3 times daily. Tolerated down- titrating phenobarbital well. Neurologist, Dr. Lang, recommended weaning off sedation. Treatment plan: - Start weaning oxycodone 15 mg p.o. 3 times a day to 10 mg p.o. 3 times a day - Monitor for agitation during SAT - If pressure support requirement increased, consider SIMV - Patient is currently on pressure support mode - If patient tolerates tapering, consider down titrating more ? #Paraphimosis (resolved) #Balanitis (resolved) #Phimosis Diagnostic Test: - Edema and tenderness of the glans penis. - Swelling of the distal retracted foreskin. - Constricting band of tissue proximal to the head of the penis at the coronal sulcus. - Hawkins was removed on 05/09 and transitioned to Oivi external urinary catheter. Discussed with family about the need to reinsert hawkins due to the patient's acute urinary retention. Family were in agreement with this plan. Hawkins was reinserted on 05/10 due to urinary retention. Hawkins changed and replaced on 05/16. Currently on straight cath protocol as needed. - S/p reduction of the paraphimosis by Dr. Vargas on 05/09. - 05/29/2025 Patient noticed to have unretractable foreskin Treatment Plan: - Per ICU team, pending possible partial dorsal slit when urologist returns on Wednesday 06/06 - Control patient's pain with sedation, titrate down. - Monitor urine output. #Agitated delerium #Serotonin Syndrome? Patient was extremely agitated before ICU admission, likely due to pain from paraphimosis. Patient initially sedated with propofol and fentanyl, titrated to Precedex with Benadryl before extubation. Patient failed extubation and was intubated on 05/12. Propofol and fentanyl was restarted. Still spiking fevers and tachycardic, possible serotonin syndrome Diagnostic Test: - EEG did not show seizure activity per neurology. - MRI brain 05/23: showed chronic infections, no acute pathology. Treatment Plan: - Start weaning phenobarbital 64.8 mg every 8 hours to every 12 hours - Clonazepam 2 mg TID. - If patient tolerates phenobarbital tapering, plan to down titrate oxycodone tomorrow - off Versed drip - Neurology consulted, appreciate recommendations. - Avoid medications that may precipitate serotonin syndrome including guaifenesin and fentanyl #History of seizures #Cerebral palsy - Temperature of 105F on admission. - EEG 05/11 unremarkable - Repeat EEG 05/20: electrographic seizure activity. - Persistent fever spikes. - Continuous EEG 05/22-05/23: no seizure activity or status epilepticus. Treatment Plan: - Levetiracetam 750 mg BID. - Adjust seizure medications if breakthrough seizures recur - Seizure precautions. - Aspiration precautions. -Neurology on board, appreciate recs #Failed extubation 05/12 #Acute hypoxic respiratory failure s/p tracheostomy Diagnostic Test: - CXR 05/11: Mild bilateral perihilar pneumonia. To assess for ventilator associated pneumonia. Not much change from 05/09 CXR. - Resistant Pseudomonas from ETT secretions previously (05/09). - CXR 05/19: Significant bilateral pneumonia. Repeat Cocci serology test was negative - 05/20 sputum culture grew meenakshi Treatment Review (completed): - Patient extubated to [facility] 05/12, chest film with centro-bronchovascular congestion and multifocal pneumonia. - Reintubated overnight 05/13- VC/AC PPeak 20 PEEP 5 FiO2 40%. - Patient underwent bronchoscopy on 05/14 and 05/17 for secretions, well tolerated. - Patient underwent tracheostomy on 05/26/2025 - Meropenem (05/12-05/17, 05/19-05/22, for a total of ten days). Treatment Plan: - DC'd micafungin 100mg qday 05/28-05/30 - Chest physiotherapy daily #Bronchospasm #History of asthma Diagnostic Test: - Although the patient has a history of asthma, the bronchospasm is most likely from the irritant effect of blood in the airway. A small amount of blood, which was likely from dryness of the nasal mucosa, was suctioned out during intubation. Treatment Plan: - Magnesium for bronchodilator effect as needed. - Albuterol and Ipratropium as needed. #Chronic PEG tube dependence Treatment Plan: - Transitioned to Nepro 1.8 at 35 mL/hr x 24 hrs via PEG tube by pump (goal). If no IV fluids, water flushes of 55 mL/hr - ProStat 30ml BID via PEG tube. - Appreciate supply chain assistant recommendations. - Monitor Triglyceride level #Hepatitis (improving) Likely due to meropenem or tylenol that could potentially cause hepatotoxicity. Diagnostic Test: - Gallbladder ultrasound 05/16: Normal gallbladder, no gallstones. Fatty infiltration throughout the liver. Treatment Plan: - Continue daily LFTs. - Will reassess if transaminases continue to rise or clinical status changes. #Acute urinary retention (resolved) Treatment Plan - Monitor urine output, replace fluid if needed. - Hawkins removed 05/23 - Every 4 hour bladder scan and straight cath as needed for >400cc. #Hypoalbuminemia (resolved) Likely due to acute hepatitis Diagnostic Test: - UA had urine proteins 1+. - Albumin 4.9 -->3.3 -->2.8 --> 3.2 --> 3.4 --> 2.8 --> 2.5---> 4--->3.9. Treatment Plan: - Maintain on PEG tube feeds per supply chain assistant recommendations. #Hyperkalemia (resolved) #Hyperphosphatemia DDx: acute kidney injury vs hemolysis vs rhabdomyolysis. Treatment Plan: - Monitor BMP and phosphorus. - Monitor potassium levels to avoid arrhythmias. - Sevelamer 800 milligram GT 3 times daily, adjust if needed. - Adjusted diet as above #Acute kidney injury (resolved) DDx: dehydration or vasodilation from sepsis. Treatment Plan: - Continue with free water flushes. - Daily renal panel to trend BUN, Cr, and electrolytes. - Avoid nephrotoxins. - Renally dose meds as appropriate. - Strict I&Os, monitor urine output closely. - Monitor for signs of volume overload or uremic symptoms. #Anion Gap Metabolic Acidosis (resolved) #Lactic acidosis (resolved) DDx: seizures vs sepsis vs acute kidney injury vs hypoperfusion. Likely from seizures as patient has no signs of systemic hypoperfusion such as skin mottling, decreased cap refills. Diagnostic Test: - Admission anion gap 22, lactic acid 16.0, bicarbonate 18.7. #Rhabdomyolysis (resolved) DDx: seizures vs hyperthermia vs infectious myositis. Diagnostic Test: - CK 1048 --> 3743 --> 1654 --> 338 --> 363. - Witnessed seizure episode lasting 5-10 seconds, characterized by tonic-clonic activity prior to admission. Treatment Plan: - Continue free water flushes at 35 cc/hr. - Monitor urine output. - Correct electrolyte abnormalities. - Control seizures with valproic acid and levetiracetam. - Monitor renal panel. #Acute nonocclusive thrombus in the left brachial vein (resolved) Diagnostic Test: - Venous doppler study of upper extremities 05/16: Normal right upper extremity deep venous system. Positive for nonocclusive thrombus in the left brachial vein. - Per chart review and patient's parents, patient does not have history of clots. Treatment Review (completed): - Lovenox 30 mg (05-11 - 05/15). - Lovenox 40 mg (05/16). - Heparin loading dose and ggt. Lovenox to heparin due to heparin?s shorter half-life, which allows for more rapid cessation in the event of bleeding, a shorter half life and can be stopped if bleeding occurs. - Stopped heparin ggt due to hematuria on 05/18. Treatment Plan: - Lovenox 70 mg SC BID for DVT treatment - Primary upper extremity deep vein thrombosis, anticoagulation should be continued for a minimum of three months following the initial thrombotic event. #Normocytic Anemia DDx: Anemia of Inflammation vs dilutional anemia vs drug-induced anemia. Likely dilutional anemia since patient had normal hemoglobin on admission and from IV fluids per sepsis protocol. No signs of bleeding. Treatment Plan: - Monitor H&H. - Type and screen. - Transfusing for Hgb <7 or symptomatic. #Thrombocytosis (Resolved) DDx: infection vs reactive Diagnostic Test: - Plt 711---> 352 Treatment Plan: - Monitor CMP. #Leukocytosis (resolved) DDx: likely due to bronchoscopy vs infection of unknown source vs drug induced Diagnostic Test: - Fever free overnight and AM -WBC 8.2 today Treatment Plan: - Treat underlying cause. #Thrombocytopenia (resolved) DDx: Dilutional versus consumption versus increased destruction due to sepsis. Initial decrease is likely due to dilutional in setting of IV fluids, however his WBC and hemoglobin have leveled off platelets have down trended. Diagnostic test: - Platelets: 209 --> 65-->141-->460. Treatment plan: - Monitor daily labs - Avoid excessive oral tracheal suctioning in setting of previous bleed and thrombocytopenia. #Sepsis #Bilateral chronic mastoiditis #Sinusitis #Bilateral otitis media #Bilateral otitis externa #Meenakshi parapsilosis DDx: meningitis vs acute on chronic mastoiditis vs acute febrile illness. Diagnostic Test: - History of chronic mastoiditis. - Met SIRS criteria on admission: T 105F, HR 176, RR 26, PaCO2 26, WBC 16.3. - 05/08 CT Head: prominent sphenoid ethmoid maxillary antral sinusitis, bilateral chronic mastoiditis, bilateral otitis media. - 05/08 CT Orbit Sella Inner: severe bilateral chronic mastoiditis, bilateral otitis externa and otitis media, bilateral cholesteatomas in the attics. - 05/09 Sputum culture: 1+ thurman resistance Pseudomonas. - 05/10 Lumbar puncture: clear, WBC 3, glucose 70, total protein 25. CSF testing negative. - 05/10 Respiratory viral panel: rhinovirus/enterovirus and human metapneumovirus detected. - 05/12 Bilateral ear culture: E coli ESBL. - UA 05/08 and 05/16 negative. - Blood culture 05/08, 05/11, and 05/16 negative. - 05/16 CXR: worsening diffuse severe left lung pneumonia. - Meenakshi parapsilosis in L ear culture Treatment Review (completed) - Rocephin 2 gm IV q12HR [05/08-05/11]. - Vancomycin dosed by pharmacy [05/08-05/11] since MRSA screen is negative. - Acyclovir 700 mg IV [05/08-05/11] since LP negative. - Fluids: 30mL/kg -- 2 L NS fluid infusion and 1 L LR fluid infusion was given in the ED. - Femoral central line removed 05/11, replaced with peripheral access. - A repeat Cocci serology test was negative Treatment Plan: - Topical oxofloxacin. - DC'd Micafungin 100mg qday 05/28-05/30 #Maculopapular rash to the buttocks DDx: contact dermatitis vs allergic dermatitis Treatment Plan - Patient no longer has diaper on. Anticipate rash to improve. Health Maintenance DVT prophylaxis: SCDs, Lovenox 70mg QD GI prophylaxis: Protonix IV Diet: Nepro 1.8 bebe Hawkins: none. Straight cath in/out q4h if urine retention more than 400 ml Lines: Peripherals, PEG tube. Drips: none Code status: Full code Assessment and plan discussed with my attending physician Dr. Dang and Dr. Baer (PGY-2). Dr. Molina (PGY-1) ? fixed income trading vice president Attending Provider Attestation/Addendum I have discussed and was present for the essential components of the history, physical examination, diagnosis, and treatment plan with the resident. I agree with the patient's care as documented by the resident and amended herein by me. Kade Dang DO. Although this document has been carefully reviewed, there may still be some phonetic and other typographical errors. These errors are purely grammatical due to imperfections in the software program and should not be construed in any way to compromise the substance of the patient's medical care during this visit.
[2025-06-03 11:05] LABS: HIV (1&2) Antibody Rapid Non-Reactive
--- NOTE | 2025-06-03 11:51 | PD.SURCONS ---
HPI Consult details Consult date: 06/03/25 Reason for consultation narrative: Patient has been hospitalized for approximately 1 month with persistent infection and fever with only recent improvement on antibiotics. He has had both CT scan and MRI scans performed. CT scan showed chronic mastoiditis with evidence of previous mastoidectomy on the right side. Has had persistent drainage from the left ear. This has been treated with both oral antibiotics and topical Ciprodex. Today he has been showing signs of improvement with more alertness. Requesting physician: Cortez Dang Review of Systems Review of Systems ROS Unobtainable: unobtainable due to mental condition Past Medical History Surgical History OTHER SURGICAL HX: PEG tube placement, ear surgery, foot surgery Social History SMOKING STATUS: Never smoker SUBSTANCE USE: does not use ALCOHOL: Never Meds Home Medications and Allergies Home Medications ?Medication ?Instructions ?Recorded ?Confirmed ?Type acetaminophen 160 mg/5 mL oral 650 mg feeding tube Q4HR PRN fever 01/16/21 05/08/25 History liquid or pain ascorbic acid (vitamin C) 1,000 mg 1 g feeding tube QDAY 01/16/21 05/08/25 History tablet (Vitamin C) fluticasone propionate 50 1 spray intranasal BID 01/16/21 05/08/25 History mcg/actuation nasal spray,suspension ofloxacin 0.3 % ear drops in a 5 drp otic (ear) BID 01/16/21 05/08/25 History dropperette ciprofloxacin 0.3 %-dexamethasone 4 drp otic (ear) BID 03/06/21 05/08/25 History 0.1 % ear drops,suspension (Ciprodex) omeprazole 20 mg capsule,delayed 20 mg feeding tube DAILY 09/27/23 05/08/25 History release levetiracetam 100 mg/mL oral 100 mg feeding tube BID 05/08/24 05/08/25 History solution montelukast 10 mg tablet 10 mg feeding tube DAILY 05/08/24 05/08/25 History quetiapine 100 mg tablet 100 mg feeding tube HS 05/08/24 05/08/25 History quetiapine 50 mg tablet 50 mg feeding tube QAM 05/08/24 05/08/25 History Allergies Allergy/AdvReac Type Severity Reaction Status Date / Time valbenazine (From Ingrezza) Allergy Severe Agitated Verified 11/02/23 00:43 Sulfa (Sulfonamide Allergy Intermediate Rash Verified 11/02/23 00:43 Antibiotics) glycopyrrolate Allergy Rash Verified 11/02/23 00:43 haloperidol Allergy Rash Verified 11/02/23 00:43 sulfamethoxazole (From Allergy Rash Verified 11/02/23 00:43 Bactrim) trimethoprim (From Bactrim) Allergy Rash Verified 11/02/23 00:43 fentanyl AdvReac Intermediate serotonin Verified 05/31/25 12:02 syndrome guaifenesin AdvReac Intermediate serotonin Verified 05/31/25 12:02 syndrome Exam Vital Signs Temp Pulse Resp BP Pulse Ox O2 Del Method O2 Flow Rate 97.9 F 121 H 26 H 113/81 96 Mechanical Ventilation 35 06/03/25 08:00 06/03/25 08:00 06/03/25 08:00 06/03/25 08:00 06/03/25 08:00 06/03/25 08:00 06/02/25 16:00 FiO2 30 06/03/25 08:00 Narrative Exam Patient is awake and appears to be alert but unable to respond due to his mental and physical limitations. He also has a tracheotomy tube in place limiting his ability to phonate. Facial features are symmetrical. He has a cauliflower deformity of the left ear. There is also clear drainage with white fungal debris in the ear canal. I was unable to visualize the tympanic membrane. The right ear canal was small but only a small amount of clear drainage. The tympanic membrane was generally thickened and opaque. The external nose was normal in appearance there was a small amount of clear drainage present. The mucosa was congested. I was unable to get visualization of the oral cavity due to the patient clenching his teeth. Neck exam showed no palpable lymphadenopathy masses or tenderness. Results Results: Laboratory Laboratory Narrative: Lab reports were reviewed patient continues to have an elevated white blood cell count despite aggressive antibiotic therapy. Results: Imaging Imaging narrative: CT of the mastoids images and report were reviewed. It was reported as acute on chronic mastoiditis. On my visual inspection there is no middle ear effusion and the middle ear appears to be air-filled bilaterally. There is sclerotic sclerosis with opacification of the few air cells that are in the mastoid cavity. There is a soft tissue mass in the right epitympanic and aditus region. This may represent a cholesteatoma. Assessment & Plan Problem List (1) Seizure disorder: Status: Acute (2) Cerebral palsy: Status: Chronic (3) Fever: Status: Acute (4) Chronic mastoiditis, bilateral: Status: Acute (5) Acute otitis externa: Status: Acute (6) Chronic right maxillary sinusitis: Status: Acute (7) Chronic ethmoidal sinusitis: Status: Acute Plan Reviewing the CT images I do not feel he has a acute coalescent mastoiditis in either ear. The soft tissue on the right side probably represents scar tissue from the previous surgery. The left middle ear as well as the right ear are not filled with effusion. Recommending acetic acid irrigations to the left ear followed by either clotrimazole or VoSol drops twice a day for 10 days. He is to avoid water in both ears as well. The chronic sinusitis is not acute and therefore I do not feel causing fevers either. No intervention is required at this time. I will try and reassess the patient next week once he has had treatment for the otitis externa to try and get a better view of the left tympanic membrane (2) Cerebral palsy Qualifiers: Cerebral palsy type: unspecified type Qualified Code(s): G80.9 - Cerebral palsy, unspecified
[2025-06-03] MEDS: oxyCODONE HCL 5 MG IR TAB 10 MG PO ×2 (14:19→21:10)
[2025-06-03] MEDS: IBUPROFEN SUSP 100 MG/5 ML UDC PO (15:44)
[2025-06-03] MEDS: Acetic Acid Irrig 0.25% 500 ML BTL 250 ML IRRIG (21:09)
[2025-06-04] VITALS (33 sets, daily range): BP systolic 115–137; BP diastolic 68–92; PULSE 102–143; RESP 13–41; TEMP 36.8–38.7; O2SAT 88–100; BMI 30.2
[2025-06-04] MEDS: oxyCODONE HCL 5 MG IR TAB 10 MG PO ×3 (05:10→21:14)
[2025-06-04] MEDS: VALPROIC ACID SYRUP 250 MG/5 ML UDC GT ×3 (05:10→21:13)
[2025-06-04] MEDS: Magnesium Sulfate 2 GM Ivpb 2 GM/50 ML BAG IV (07:43)
[2025-06-04 08:15] LABS: Basophils # (Auto) 0.1 Thou/mm3 (0.0-0.2); Basophils % (Auto) 1 % (0-2.5); Eosinophils # (Auto) 1.1 Thou/mm3 (0.0-0.5); Eosinophils % (Auto) 9 % (0-10); Hematocrit 29.2 % (41.0-53.0); Hemoglobin 9.2 g/dL (13.5-16.0); Immature Granulocytes Auto 0.16 Thou/mm3 (0.00-0.00); Lymphocytes # (Auto) 3.0 Thou/mm3 (1.0-4.8); Lymphocytes % (Auto) 25 % (10-50); Mean Corpuscular HGB Conc 31.5 g/dl (31.0-37.0); Mean Corpuscular Hemoglobin 27.1 pg (25.0-35.0); Mean Corpuscular Volume 86 fL (80-100); Monocytes # (Auto) 1.5 Thou/mm3 (0.0-0.8); Monocytes % (Auto) 12 % (0-12); Neutrophils # (Auto) 6.2 Thou/mm3 (1.8-7.7); Neutrophils % (Auto) 52 % (37-80); Nucleated Red Blood Cell # 0.00 Thou/mm3 (0.00-0.00); Nucleated Red Blood Cell % 0 /100 WBC (0); Platelet Count 475 Thou/mm3 (140-440); RDW Standard Deviation 48.5 fL (35.1-43.9); Red Blood Count 3.40 Miln/mm3 (4.50-5.90); White Blood Count 12.0 Thou/mm3 (3.8-10.6)
--- NOTE | 2025-06-04 08:38 | ESPR_ITS ---
<Statement entered by Robert Cross MD - 06/05/25 14:54> Patient was seen and examined at bedside. I agree on the assessment and plan on this note as documented by resident Jose R Rain DO PGY1. 24-year-old male with past medical history as below admitted for sepsis, multiple sources isolated for the patient, was downgraded to telemetry 05/2025, continues to have fevers and persistently tachycardic, urine culture speciated for ESBL E. coli, sputum culture shows GNR, pending speciation. As colonies on urine culture are around 60,000 there is low current concern of possible underlying infection attributing to symptoms, will hold off on antibiotics for now. Ibuprofen/Tylenol as needed for fever management. Will decrease phenobarb dose to 64.8 mg GT at bedtime, continue oxycodone 10 mg p.o. 3 times daily. Plan to down titrate oxy as tolerated, scheduled with urology for dorsal slit on Friday, will follow-up tomorrow. Was started on clotrimazole drops bilateral ears per ENT recommendations. Will continue to monitor patient. Case discussed with attending Dr. Cortez Dang, DO Robert Cross MD PGY-2 Documentation for date of: 06/04/25 Subjective Subjective Interval history: Started on Clotrimazole ear drops, 4 drops in both ears bid, duration for 10 days as recommended by ENT. Currently doing acetic acid irrigation twice daily to the left ear. Per ENT, Dr. Ojeda, patient does not have acute coalescent mastoiditis in either ear. Left and right middle ear is not filled with effusion and soft tissue on the right side likely remained as a scar from previous surgery. Patient's chronic sinusitis is unlikely the source of the fever. ENT will reexamine the patient in next week after treatment with acetic acid irrigation to the left ear and clotrimazole. Scheduled for possible partial dorsal slit on 06/06, Friday, per Urology, for his phimosis. Patient previosly required soft wrist restraints for safety secondary to restlessness and continuous movement. Currently observed to be grimacing and groaning, but shows slow improvement toward baseline status. Will do gradual phenobarbital taper and removal of soft wrist restraints when clinically appropriate. Patient had low-grade fever of 100.2 F overnight. This morning he is afebrile with 98.2 F. But another spike of fever to 101.6 F. WBC downtrending from 13.6 to 12.0, hemoglobin level stable with 9.2. Urine culture (06/01) was positive for E. coli, ESBL, 60K colonies. Blood Cx (06/01) showed no growth after 48hrs. Sputum culture (06/01) was positive for GNR, waiting for speciation. Patient previously received multiple courses of antibiotics in the ICU. Given downtrending WBC and extensive prior antibiotic treatment, decision made to withhold further antibiotics at this time. Patient recently started on topical clotrimazole with acetic acid irrigation for left otitis externa, which is currently suspected source of infection and fever. UTI unlikely sources of infection given low number of colonies and long antibiotics treatment in ICU. Will continue to monitor for clinical status and reassess as needed. Due to persisting fever, patient was given IV tylenlol 1000mg x1 Patient exhibits persistent facial movements accompanied by grimacing and groaning. Non-verbal at baseline. Does not demonstrate ability to follow simple commands. Exam Vital Signs Temp Pulse Resp BP Pulse Ox O2 Del Method O2 Flow Rate 98.2 F 129 H 18 129/68 97 Mechanical Ventilation 35 06/04/25 07:31 06/04/25 07:31 06/04/25 07:31 06/04/25 07:31 06/04/25 07:31 06/04/25 07:31 06/04/25 07:31 FiO2 30 06/04/25 07:31 Narrative Exam General: Trach and PEG tube in place. AAOx0, Non-verbal at baseline. Continuous grimacing and groaning. Eye: Normal conjunctiva, no scleral icterus Neck: Supple, non-tender, no JVD, no lymphadenopathy Lungs: Coarse breath sounds, symmetric chest rise, No wheezing, rhonchi, crackles Heart: Peripheral pulses intact bilaterally, Tachycardic Abdomen: Soft, non-tender, non-distended, no palpable masses Musculoskeletal: No cyanosis or edema, No visible joint swelling Skin: Skin is warm, dry, no rashes or lesions. Neuro: Cranial nerves II-XII grossly intact. Objective Labs 06/05/25 05:16 06/05/25 05:16 Labs: Laboratory Results - last 24 hr 06/03/25 06/04/25 05:36 05:30 WBC 12.0 H RBC 3.40 L Hgb 9.2 L Hct 29.2 L MCV 86 MCH 27.1 MCHC 31.5 RDW Std Deviation 48.5 H Plt Count 475 H D Neut % (Auto) 52 Lymph % (Auto) 25 Meriwether % (Auto) 12 Eos % (Auto) 9 Baso % (Auto) 1 Neut # (Auto) 6.2 Lymph # (Auto) 3.0 Meriwether # (Auto) 1.5 H Eos # (Auto) 1.1 H Baso # (Auto) 0.1 Immature Gran # (Auto) 0.16 H Absolute Nucleated RBC 0.00 Immature Gran % 1 H Nucleated RBC % 0 HIV 1&2 Antibody Rapid Non-Reactive ABG Interpretation ABG results: 05/09/25 05/09/25 05/09/25 11:56 13:40 18:50 ABG pH 7.40 7.27 L D 7.28 L ABG pCO2 40 43 55 H D ABG pO2 131 H 53 L* D 70 L ABG HCO3 25 20 26 ABG O2 Saturation 99 H 81 L 92 ABG Base Excess 0 -7 L -2 VBG pH VBG pCO2 VBG pO2 VBG Base Excess 05/10/25 05/11/25 05/12/25 00:14 05:06 01:18 ABG pH 7.35 7.33 L 7.39 ABG pCO2 42 D 54 H D 48 ABG pO2 103 D 93 94 ABG HCO3 23 28 H 29 H ABG O2 Saturation 99 H 98 98 ABG Base Excess -3 2 3 VBG pH VBG pCO2 VBG pO2 VBG Base Excess 05/12/25 05/12/25 05/13/25 03:58 11:50 05:10 ABG pH 7.46 H 7.39 7.19 L* D ABG pCO2 41 48 60 H D ABG pO2 105 58 L* D 114 H D ABG HCO3 29 H 29 H 23 ABG O2 Saturation 99 H 90 L 98 ABG Base Excess 5 H 4 H -6 L VBG pH VBG pCO2 VBG pO2 VBG Base Excess 05/17/25 05/18/25 05/19/25 01:30 04:09 04:43 ABG pH 7.38 7.43 7.47 H ABG pCO2 46 44 43 ABG pO2 90 83 80 L ABG HCO3 27 H 29 H 31 H ABG O2 Saturation 98 97 97 ABG Base Excess 2 5 H 7 H VBG pH VBG pCO2 VBG pO2 VBG Base Excess 05/21/25 05/21/25 05/31/25 04:18 06:33 08:06 ABG pH 7.37 D 7.46 H ABG pCO2 50 H 38 D ABG pO2 40 L* D 121 H D ABG HCO3 29 H 27 H ABG O2 Saturation 66 L 100 H ABG Base Excess 3 3 VBG pH 7.55 VBG pCO2 31 L VBG pO2 144 H VBG Base Excess 5 H Quality Measures Quality Measures VTE prophylaxis (SCDs) and sepsis Current suspected stage: sepsis Possible source: pulmonary Blood cultures ordered: yes Antibiotic ordered: Yes Assessment & Plan Assessment Current Active Medications: Generic Name Dose Route Start Last Admin Trade Name Freq PRN Reason Stop Dose Admin Acetic Acid 250 ml 06/03/25 21:00 06/03/25 21:09 Acetic Acid Irrig 0.25% 500 Ml Btl IRRIG 07/03/25 20:59 250 ml BID KYA Administration Albuterol/Ipratropium 3 ml 05/09/25 18:19 05/28/25 06:34 Albuterol/Ipratropium (Duoneb) Rt Racquel 3 Ml Nebu INH 06/08/25 18:18 3 ml Q2HR PRN Administration SHORTNESS OF BREATH OR WHEEZE Enoxaparin Sodium 70 mg 05/30/25 21:00 06/03/25 21:10 Enoxaparin Sod Inj 80 Mg/0.8 Ml Syringe SC 06/13/25 20:59 70 mg BID KYA Administration Ferrous Sulfate 325 mg 06/01/25 09:00 06/03/25 08:40 Ferrous Sulfate 300 Mg/5 Ml Udc PO 07/01/25 08:59 325 mg QOD KYA Administration Magnesium Sulfate 2 gm in 50 mls @ 25 mls/hr 06/04/25 07:17 06/04/25 07:43 Magnesium Sulfate Ivpb IV 06/04/25 09:16 25 mls/hr X1 ONE Administration Ibuprofen 100 mg 06/03/25 09:49 06/03/25 15:44 Ibuprofen Susp 100 Mg/5 Ml Udc PO 07/03/25 09:48 100 mg Q6HR PRN Administration Fever > 100.3 Lansoprazole 30 mg 05/28/25 09:00 06/03/25 08:40 Lansoprazole 30 Mg Tab.Mary. GT 06/27/25 08:59 30 mg QDAY KYA Administration Levetiracetam 750 mg 05/30/25 09:00 06/03/25 21:10 Levetiracetam Liqd 500 Mg/5 Ml Udc GT 06/29/25 08:59 750 mg BID KAY Administration Midazolam HCl 1 mg 05/30/25 18:49 06/02/25 20:05 Midazolam Inj 1 Mg/Ml Vial 2 Ml IVP 06/04/25 18:48 1 mg Q3HR PRN Administration AGITATION OR ANXIETY Ondansetron HCl 4 mg 05/27/25 14:37 Ondansetron Odt 4 Mg Tabrap GT 06/26/25 14:36 Q6HR PRN NAUSEA OR VOMITING Protocol Oxycodone HCl 10 mg 06/03/25 14:00 06/04/25 05:10 Oxycodone Hcl 5 Mg Ir Tab PO 06/08/25 13:59 10 mg TID KYA Administration Phenobarbital 64.8 mg 06/02/25 21:00 06/03/25 21:10 Phenobarbital 32.4 Mg Tablet GT 06/16/25 20:59 64.8 mg Q12HR KYA Administration Polyethylene Glycol 17 gm 05/16/25 09:15 06/03/25 08:29 Polyethylene Glycol 17 Gm Packet PO 06/15/25 09:14 Not Given QDAY KYA Sevelamer Carbonate 1 gm 06/03/25 08:00 06/03/25 17:15 Sevelamer Carbonate 0.8 Gm Packet (Non-Formulary) GT 07/03/25 07:59 1 gm TIDWM KYA Administration Sodium Chloride 3 ml 05/17/25 11:43 Sodium Chloride Rt Racquel 0.9% 3 Ml Nebu INH 06/16/25 11:42 PRN PRN SOLN Valproic Acid 250 mg 05/27/25 18:00 06/04/25 05:10 Valproic Acid Syrup 250 Mg/5 Ml Udc GT 06/26/25 17:59 250 mg Q8HR KYA Administration Plan 24-year-old male with cerebral palsy, asthma, seizure disorder, chronic mastoiditis, recurrent pneumonia, and chronic PEG tube dependence presented with fever and seizure, was admitted for sepsis workup, and later transferred to the ICU for intubation due to concerns about airway protection. Patient has been downgraded from ICU to tele on 05/31/2025, after stabilization of his condition. #Sepsis #Bilateral chronic mastoiditis #Sinusitis #Bilateral otitis media #Bilateral otitis externa #Brittney parapsilosis #Community Acquired Pneumonia-Resolving #UTI, E.coli, ESBL -DDx: meningitis vs acute on chronic mastoiditis vs acute febrile illness. ? -History of chronic mastoiditis. -Met SIRS criteria on admission: T 105F, HR 176, RR 26, PaCO2 26, WBC 16.3. -Head CT (05/08/2025): prominent sphenoid ethmoid maxillary antral sinusitis, bilateral chronic mastoiditis, bilateral otitis media. -CT Orbit Sella Inner (05/08/2025): severe bilateral chronic mastoiditis, bilateral otitis externa and otitis media, bilateral cholesteatomas in the attics. -CXR (05/09/2025): Bilateral Perihilar Pneumonia. CXR (05/13/2025): Extensive Bilateral Pneumonia, CXR(05/19/2025): Significant bilateral Pneumonia -CT Chest/abd/pelvis (05/16/2025): Extensive bilateral pneumonia, Cystitis pattern, Cholelithiasis -A repeat Cocci serology test was negative -Lumbar puncture(05/10/2025): clear, WBC 3, glucose 70, total protein 25. CSF testing negative. -Respiratory viral panel (05/10/2025): rhinovirus/enterovirus and human metapneumovirus detected. -UA 05/08 and 05/16 negative. [Culture Hx] -1st Blood Cx (05/08): No growth for 5 days. 2nd Blood Cx (05/11): No growth for 5 days, 3rd Blood Cx (05/16): No growth for 5 days, 4th Blood Cx (06/01): No growth for 48hrs -1st Sputum Cx (05/09): Pseudomonas aeruginosa (only sensitive to Meropenem, Tobramycin). 2nd Sputum Cx (05/13): Mixed oral hamilton. 3rd Sputum Cx (05/19): Mixed oral hamilton, 4th Sputum Cx (05/20): Brittney albicans, 5th Sputum Cx (11/5): GNR -CSF Cx (05/10): No growth for 3 days -Left Ear Cx (05/12): Brittney parapsilosis -Right Ear Cx(05/12): E.coli, ESBL (only sensitive to Ertapenem, Meropenem, Zosyn) -Urine Cx (06/01): E.coli, ESBL (only sensitive to Ertapenem, Meropenem, Nitrofurantoin, Zosyn) [Antibiotics/Antifungal Hx] IV Zosyn 3.375g x1 (at 05/08) IV Ceftriaxone 1g x1 (at 05/08) IV Acyclovir 640mg q8hr (05/08-05/11) since LP negative. IV Ceftriaxone 2g q12hr (05/08-05/11) IV Vancomycin qd (05/08-05/11) since MRSA screen is negative Ofloxacin Opt racquel 0.3% 5 drops Both ears bid (05/09-05/18, 05/21-05/31) IV Meropenem 1000mg q8hr (05/12-05/22, 05/24-05/25) IV Doxycycline (05/16-05/18) IV Micafungin 100mg qd (05/28-05/30, 06/01-06/03) Ciprofloxacin Op Racquel 0.3% ear drops (06/02-06/03) -CXR is showing pneumonia, but CXR often remain abnormal for days to weeks. The infiltrate or consolidation can persist even though the infection has cleared. The radiographic improvement can take up to 4-6 weeks.? Patient is on minimal ventilator setting, oxygen requirement is stable, and has completed antibiotics course. -UTI unlikely sources of infection given low number of colonies and long antibiotics treatment in ICU. -Per ENT, Dr. Ojeda, patient does not have acute coalescent mastoiditis in either ear. Left and right middle ear is also not filled with effusion. -Currently suspecting sources of infection likely from left otitis externa. Plan: -Started on Clotrimazole ear drops, 4 drops in both ears bid, duration for 10 days as recommended by ENT. -Acetic acid irrigation twice daily to the left ear. -ENT will reexamine the patient in next week after treatment with acetic acid irrigation to the left ear and clotrimazole. -IV Ibuprofen 100mg po q6hr prn for fever >100.3F -Avoid water in both ears. -Consulted ICU, Dr. Armendariz, appreciate recomendations -Consulted ID, Dr. Rubio, appreciate recommendations -Consulted ENT, Dr. Ojeda, appreciate recommendations #Agitated delirium #Serotonin Syndrome? -Patient was extremely agitated before ICU admission, likely due to pain from paraphimosis. -Patient initially sedated with propofol and fentanyl, titrated to Precedex with Benadryl before extubation. -Patient failed extubation and was intubated on 05/12. Propofol and fentanyl was restarted. -Still spiking fevers and tachycardic, possible serotonin syndrome -EEG did not show seizure activity per neurology. -MRI brain 05/23: showed chronic infections, no acute pathology. -Off Versed drip -Currently tapering down phenobarbital. Changed q12hr to HS Plan: -Phenobarbital 64.8 mg GT HS. -Oxycodone 10mg po tid -If patient tolerates phenobarbital tapering, plan to down titrate oxycodone tomorrow -Neurology consulted, appreciate recommendations. -Avoid medications that may precipitate serotonin syndrome including guaifenesin and fentanyl #Phimosis #Paraphimosis (resolved) #Balanitis (resolved) -Edema and tenderness of the glans penis. -Swelling of the distal retracted foreskin. -Constricting band of tissue proximal to the head of the penis at the coronal sulcus. -Hawkins was removed on 05/09 and transitioned to Oivi external urinary catheter. Discussed with family about the need to reinsert hawkins due to the patient's acute urinary retention. Family were in agreement with this plan. Hawkins was reinserted on 05/10 due to urinary retention. Hawkins changed and replaced on 05/16. Currently on straight cath protocol as needed. -S/p reduction of the paraphimosis by Dr. Vargas on 05/09. -05/29/2025 Patient noticed to have unretractable foreskin Plan: -Pending possible partial dorsal slit when urologist returns on Wednesday 06/06 -Control patient's pain with sedation, titrate down. -Monitor urine output. #Hx of Cerebral palsy #Hx of seizures -Temperature of 105F on admission, with Persistent fever spikes. -EEG 05/11 unremarkable -Repeat EEG 05/20: electrographic seizure activity. -Continuous EEG 05/22-05/23: no seizure activity or status epilepticus. Plan: -On Keppra 750 mg GT bid, -On Valproic Acid Syrup 250mg GT q8hr -Adjust seizure medications if breakthrough seizures recur -Seizure precautions. -Aspiration precautions. -Neurology on board, appreciate recs #Bronchospasm #History of asthma -Magnesium for bronchodilator effect as needed. -Albuterol and Ipratropium as needed. #Failed extubation 05/12 #Acute hypoxic respiratory failure s/p tracheostomy #Ventilator dependent -Patient underwent tracheostomy on 05/26/2025 -Chest physiotherapy daily #Chronic PEG tube dependence -Nepro 1.8 Christ 1L RTH -Pro Stat Sugar Free 30 ml #Hyperphosphatemia -Sevelamer 1g GT 3 times daily, adjust if needed. #Normocytic Anemia -Continue to monitor labs #Leukocytosis-Resolving #Maculopapular rash to the buttocks-Resolving #Acute urinary retention-Resolved #Hypoalbuminemia-Resolved #Hyperkalemia-Resolved #Acute kidney injury-Resolved #Anion Gap Metabolic Acidosis-Resolved Disposition: Tele Diet: Nepro 1.8 Christ 1L RTH and Pro Stat Sugar Free 30 ml GI prophylaxis: Lansoprazole 30mg GT qd DVT prophylaxis: SCDs, Lovenox 70mg SC bid Code: FULL Assessment and plan discussed with my attending physician Dr. Dang and Dr. Cross (PGY-2) Dr. Rain (PGY-1) - Internal medicine resident Attending Provider Attestation/Addendum I have discussed and was present for the essential components of the history, physical examination, diagnosis, and treatment plan with the resident. I agree with the patient's care as documented by the resident and amended herein by me. Kade Dang DO. Although this document has been carefully reviewed, there may still be some phonetic and other typographical errors. These errors are purely grammatical due to imperfections in the software program and should not be construed in any way to compromise the substance of the patient's medical care during this visit.
[2025-06-04 08:42] LABS: Alanine Aminotransferase 42 U/L (10-49); Albumin, Serum 4.3 gm/dL (3.5-5.0); Albumin/Globulin Ratio 1.5 (1.2-2.2); Alkaline Phosphatase 237 U/L (46-116); Anion Gap 13 (7-16); Aspartate Amino Transferase 40 U/L (0-34); BUN/Creatinine Ratio 30 Ratio (12-20); Bilirubin,Total 0.2 mg/dL (0.3-1.2); Blood Urea Nitrogen 18 mg/dL (9-23); Calcium 10.2 mg/dL (8.3-10.6); Calcium (Corrected) 10.2 mg/dL (8.5-10.1); Carbon Dioxide 26.9 mMol/L (20.0-31.0); Chloride 100 mMol/L (98-107); Creatinine (Component) 0.6 mg/dL (0.6-1.3); Estimated Creatinine Clearance 150.4 mL/min (>60); Globulin 2.9 gm/dL (2.3-3.5); Glucose 86 mg/dL (74-106); Magnesium 1.7 mg/dL (1.6-2.6); Osmolality,Calculated 280 (275-295); Phosphorous 4.9 mg/dL (2.4-5.1); Potassium 3.9 mMol/L (3.4-5.1); Sodium 140 mMol/L (136-145); Total Protein 7.2 gm/dL (5.7-8.2); eGFR > 60 See Note
[2025-06-04] MEDS: levETIRAcetam LIQD 500 MG/5 ML UDC 750 MG GT ×2 (09:02→21:13)
[2025-06-04] MEDS: POLYETHYLENE GLYCOL 17 GM PACKET PO (09:02)
[2025-06-04] MEDS: SEVELAMER CARBONATE 0.8 GM PACKET (NON-FORMULARY) 1 GM GT ×3 (09:02→19:32)
[2025-06-04] MEDS: LANSOPRAZOLE 30 MG TAB.RAP.DR GT (09:03)
[2025-06-04] MEDS: Acetic Acid Irrig 0.25% 500 ML BTL 250 ML IRRIG ×2 (09:19→21:13)
[2025-06-04] MEDS: ENOXAPARIN SOD INJ 80 MG/0.8 ML SYRINGE 70 MG SC ×2 (09:19→21:13)
[2025-06-04] MEDS: IBUPROFEN SUSP 100 MG/5 ML UDC PO ×2 (12:01→23:52)
[2025-06-04] MEDS: ACETAMINOPHEN IVPB 1,000 MG/100 ML VIAL 250 MG IV (17:17)
[2025-06-04 18:44] LABS: Collection Type, Urine Clean Catch
[2025-06-04 19:02] LABS: Bilirubin,Urine Negative (Negative); Blood,Urine Negative (Negative); Clarity,Urine Turbid (Clear/Hazy); Color,Urine Lt-Yellow (Lt Yel-Yel); Glucose, Urine Negative (Negative); Hyaline Casts,Urine < 1 /hpf (0-1); Ketones,Urine Negative (Negative); Leukocyte Esterase,Urine Negative (Negative); Nitrite,Urine Negative (Negative); PH,Urine 7.5 (5.0-7.0); Protein,Urine Trace (Neg - Trace); RBC,Urine 4 /hpf (0-3); Specific Gravity,Urine 1.018 (1.001-1.035); Squamous Epithelial Cell,Urine 1 /hpf (0-5); Urobilinogen,Urine Negative mg/dL (0.0-1.0); WBC,Urine 4 /hpf (0-5)
--- NOTE | 2025-06-04 19:19 | PC.NURSE ---
ASSESSMENT: PT TEMP. 100.3 AT 19:18
[2025-06-05] VITALS (35 sets, daily range): BP systolic 99–184; BP diastolic 59–145; PULSE 115–160; RESP 9–59; TEMP 37.8–39.4; O2SAT 92–100; BMI 29.8
[2025-06-05] MEDS: ACETAMINOPHEN IVPB 1,000 MG/100 ML VIAL 250 MG IV ×3 (00:21→16:00)
--- NOTE | 2025-06-05 00:35 | PD.RESEVENT ---
Documentation for date of: 06/05/25 Event Note Event Note: Rapid Response was called around 00:10 for agitation, tachycardia and increased breathing work. On arrival pt was alert, appeared in mild agitation but denied pain when asked. Vitals showed temp 101.2, RR 50s, HR 140s, sats mid 90s. Physical exam was at baseline without acute changes. Tachycardia likely related to pain/agitation possibly since oxycodone was decreased. We have initiated tylenol IV and gave a dose of oxycodone and 500 cc NS. Fever and tachycardia appeared to have improved. Follow-up lactic acid was normal. Will continue to monitor closely. Case was discussed with attending physician. Radha Wood, PGY II This document was transcribed using voice recognition technology. Minor inaccuracies may be present.
[2025-06-05 00:52] LABS: Lactate (Lactic Acid) 1.2 mMol/L (0.4-2.0)
--- NOTE | 2025-06-05 01:03 | PC.NURSE ---
dr rose notified of patient follow up temperature of 101.6 rectal after giving motrin, stated to continue to monitor and wait for IV tylenol to finish and call back in a hour if temperature is not going down. plan of care ongoing.
--- NOTE | 2025-06-05 02:01 | PC.NURSE ---
md rose made aware of patient follow up vital signs of 101.1 hr 140's, rr 30 and patient being restless and grimacing. md stated they will come up to bedside. -md rose and md chavez at bedside -md rose and scott ordered oxycodone 5 mg and NS bolus. plan of care ongoing.
[2025-06-05] MEDS: oxyCODONE HCL 5 MG IR TAB GT (02:19)
[2025-06-05] MEDS: SODIUM CHLORIDE 0.9% 250 ML 250 ML 999 ML IV (02:20)
[2025-06-05] MEDS: oxyCODONE HCL 5 MG IR TAB 10 MG PO ×3 (05:04→22:13)
[2025-06-05] MEDS: VALPROIC ACID SYRUP 250 MG/5 ML UDC GT ×3 (05:04→22:14)
[2025-06-05 05:43] LABS: Basophils # (Auto) 0.1 Thou/mm3 (0.0-0.2); Basophils % (Auto) 1 % (0-2.5); Eosinophils # (Auto) 0.6 Thou/mm3 (0.0-0.5); Eosinophils % (Auto) 5 % (0-10); Hematocrit 26.3 % (41.0-53.0); Immature Granulocytes Auto 0.06 Thou/mm3 (0.00-0.00); Lymphocytes # (Auto) 2.8 Thou/mm3 (1.0-4.8); Lymphocytes % (Auto) 23 % (10-50); Mean Corpuscular HGB Conc 32.7 g/dl (31.0-37.0); Mean Corpuscular Hemoglobin 27.1 pg (25.0-35.0); Mean Corpuscular Volume 83 fL (80-100); Monocytes # (Auto) 1.8 Thou/mm3 (0.0-0.8); Monocytes % (Auto) 15 % (0-12); Neutrophils # (Auto) 7.0 Thou/mm3 (1.8-7.7); Neutrophils % (Auto) 56 % (37-80); Nucleated Red Blood Cell # 0.00 Thou/mm3 (0.00-0.00); Nucleated Red Blood Cell % 0 /100 WBC (0); Platelet Count 391 Thou/mm3 (140-440); RDW Standard Deviation 46.0 fL (35.1-43.9); Red Blood Count 3.17 Miln/mm3 (4.50-5.90); White Blood Count 12.3 Thou/mm3 (3.8-10.6)
[2025-06-05 05:51] LABS: Hemoglobin 8.6 g/dL (13.5-16.0)
[2025-06-05 06:11] LABS: Alanine Aminotransferase 39 U/L (10-49); Albumin, Serum 4.2 gm/dL (3.5-5.0); Albumin/Globulin Ratio 1.6 (1.2-2.2); Alkaline Phosphatase 218 U/L (46-116); Anion Gap 11 (7-16); Aspartate Amino Transferase 36 U/L (0-34); BUN/Creatinine Ratio 20 Ratio (12-20); Bilirubin,Total 0.3 mg/dL (0.3-1.2); Blood Urea Nitrogen 12 mg/dL (9-23); Calcium 10.0 mg/dL (8.3-10.6); Calcium (Corrected) 10.0 mg/dL (8.5-10.1); Carbon Dioxide 27.6 mMol/L (20.0-31.0); Chloride 98 mMol/L (98-107); Creatinine (Component) 0.6 mg/dL (0.6-1.3); Estimated Creatinine Clearance 149.6 mL/min (>60); Globulin 2.7 gm/dL (2.3-3.5); Glucose 95 mg/dL (74-106); Magnesium 1.6 mg/dL (1.6-2.6); Osmolality,Calculated 273 (275-295); Phosphorous 3.9 mg/dL (2.4-5.1); Potassium 3.4 mMol/L (3.4-5.1); Sodium 137 mMol/L (136-145); Total Protein 6.9 gm/dL (5.7-8.2); eGFR > 60 See Note
--- NOTE | 2025-06-05 07:41 | XR_ITS ---
EXAMINATION: AP chest single view TECHNIQUE: AP portable upright chest single view Date and time: June 05, 2025, 0918 hours, comparison May 31, 2025 INDICATIONS: Post tracheostomy tube reposition FINDINGS: Tracheostomy tube tip 4.4 cm above haresh Normal heart size Mild elevation right hemidiaphragm IMPRESSION: Tracheostomy tube tip 4.4 cm above haresh
--- NOTE | 2025-06-05 07:48 | ESPR_ITS ---
<Statement entered by Robert Cross MD - 06/05/25 15:17> Patient was seen and examined at bedside. I agree on the assessment and plan on this note as documented by resident Dr Ninfa Molina DO PGY1. 24-year-old male with past medical history as below has had a prolonged hospitalization course, day 28 of hospitalization, overnight patient had a rapid response for agitation and increased work of breathing, patient was given x 1 dose of oxycodone and a 500 cc NS bolus along with IV Tylenol. This morning patient is more awake, agitated at times, urine analysis was repeated yesterday showed no significant pyuria however sputum culture resulted as Pseudomonas sensitive to Zosyn. Patient will be started on Zosyn, repeat blood cultures obtained as well, EEG will be repeated. Will obtain chest x-ray as well. Around noon received a call by nurse patient is agitated tachypneic significantly respiratory rate in 60s, heart rate in 160s as well. Seen at bedside blood pressure within normal limits underlying symptoms secondary to agitation, patient was given total 4 mg Versed, 2 mg of morphine and 32.4 mg of phenobarbital, ventilator mode changed to SIMV. Throughout the day patient was given 2 500 cc boluses as well, lactate and VBG obtained. VBG shows pH 7.5, pCO2 34 and lactate within normal limits 1.9. Will continue to monitor patient for fevers/agitation. Will consider a.m. phenobarbital dose of 34.2 mg tomorrow if patient is agitated. Case discussed with attending DO Robert Pruett MD PGY-2 Documentation for date of: 06/05/25 Subjective Subjective Interval history: Overnight rapid was called for agitation, tachycardia and increased breathing work. Temperature 101.2, RR 50s, HR 140s, sats mid 90s. Mild agitation but denied pain, at baseline. Tachycardia is attributed to pain/anxiety since oxycodone was decreased. Fever and tachycardia improved on tylenol IV, oxycodone and 500 cc NS. Patient seen and examined by bedside. Patient seemed more alert today, mildly agitated and moved around. Per nurse, continued to spiked fever with persistent tachycardia. Urine culture 06/01 positive for ESBL. Blood culture 06/01 negative. Sputum culture 06/01 positive Pseudomona. Start Zosyn today. Repeat blood culture, CXR and EEG to rule out infection and seizure-induced fever. Consider discontinue phenobarbital tomorrow. Exam Vital Signs Temp Pulse Resp BP Pulse Ox O2 Del Method O2 Flow Rate 100.6 F H 122 H 24 H 99/59 L 100 Mechanical Ventilation 35 06/05/25 06:05 06/05/25 06:05 06/05/25 06:05 06/05/25 04:00 06/05/25 06:05 06/05/25 06:05 06/04/25 07:31 FiO2 30 06/05/25 06:05 Narrative Exam Narrative Exam General: Trach and PEG tube in place. AAOx0, Non-verbal at baseline. Open eyes and tracking. Intermittent grimace Eye: Normal conjunctiva, no scleral icterus Neck: Supple, non-tender, no JVD, no lymphadenopathy Lungs: Coarse breath sounds, symmetric chest rise, No wheezing, rhonchi, crackles Heart: Peripheral pulses intact bilaterally, Tachycardic Abdomen: Soft, non-tender, non-distended, no palpable masses Musculoskeletal: No cyanosis or edema, No visible joint swelling Skin: Skin is warm, dry, no rashes or lesions. Neuro: Cranial nerves II-XII grossly intact. Objective Labs 06/06/25 04:39 06/06/25 04:39 Labs: Laboratory Results - last 24 hr 06/04/25 06/04/25 06/05/25 05:30 18:11 00:41 WBC 12.0 H RBC 3.40 L Hgb 9.2 L Hct 29.2 L MCV 86 MCH 27.1 MCHC 31.5 RDW Std Deviation 48.5 H Plt Count 475 H D Neut % (Auto) 52 Lymph % (Auto) 25 [place] % (Auto) 12 Eos % (Auto) 9 Baso % (Auto) 1 Neut # (Auto) 6.2 Lymph # (Auto) 3.0 [place] # (Auto) 1.5 H Eos # (Auto) 1.1 H Baso # (Auto) 0.1 Immature Gran # (Auto) 0.16 H Absolute Nucleated RBC 0.00 Immature Gran % 1 H Nucleated RBC % 0 Sodium 140 Potassium 3.9 Chloride 100 Carbon Dioxide 26.9 Anion Gap 13 BUN 18 Creatinine 0.6 Estim Creat Clear Calc 150.4 eGFR > 60 BUN/Creatinine Ratio 30 H Glucose 86 Calculated Osmolality 280 Lactic Acid 1.2 Calcium 10.2 Corrected Calcium 10.2 H Phosphorus 4.9 Magnesium 1.7 Total Bilirubin 0.2 L AST 40 H ALT 42 Alkaline Phosphatase 237 H D Total Protein 7.2 Albumin 4.3 Globulin 2.9 Albumin/Globulin Ratio 1.5 Ur Collection Type Clean Catch Urine Color Lt-Yellow Urine Clarity Turbid A Urine pH 7.5 H Ur Specific [place] 1.018 Urine Protein Trace Urine Glucose (UA) Negative Urine Ketones Negative Urine Blood Negative Urine Nitrite Negative Urine Bilirubin Negative Urine Urobilinogen (Auto) Negative Ur Leukocyte Esterase Negative Urine RBC 4 H Urine WBC 4 Ur Squamous Epith Cells 1 Urine Bacteria None Hyaline Casts < 1 06/05/25 05:16 WBC 12.3 H RBC 3.17 L Hgb 8.6 L Hct 26.3 L MCV 83 MCH 27.1 MCHC 32.7 RDW Std Deviation 46.0 H Plt Count 391 D Neut % (Auto) 56 Lymph % (Auto) 23 [place] % (Auto) 15 H Eos % (Auto) 5 Baso % (Auto) 1 Neut # (Auto) 7.0 Lymph # (Auto) 2.8 [place] # (Auto) 1.8 H Eos # (Auto) 0.6 H Baso # (Auto) 0.1 Immature Gran # (Auto) 0.06 H Absolute Nucleated RBC 0.00 Immature Gran % 1 H Nucleated RBC % 0 Sodium 137 Potassium 3.4 D Chloride 98 Carbon Dioxide 27.6 Anion Gap 11 BUN 12 Creatinine 0.6 Estim Creat Clear Calc 149.6 eGFR > 60 BUN/Creatinine Ratio 20 Glucose 95 Calculated Osmolality 273 L Lactic Acid Calcium 10.0 Corrected Calcium 10.0 Phosphorus 3.9 Magnesium 1.6 Total Bilirubin 0.3 AST 36 H ALT 39 Alkaline Phosphatase 218 H Total Protein 6.9 Albumin 4.2 Globulin 2.7 Albumin/Globulin Ratio 1.6 Ur Collection Type Urine Color Urine Clarity Urine pH Ur Specific [place] Urine Protein Urine Glucose (UA) Urine Ketones Urine Blood Urine Nitrite Urine Bilirubin Urine Urobilinogen (Auto) Ur Leukocyte Esterase Urine RBC Urine WBC Ur Squamous Epith Cells Urine Bacteria Hyaline Casts ABG Interpretation ABG results: 05/09/25 05/09/25 05/09/25 11:56 13:40 18:50 ABG pH 7.40 7.27 L D 7.28 L ABG pCO2 40 43 55 H D ABG pO2 131 H 53 L* D 70 L ABG HCO3 25 20 26 ABG O2 Saturation 99 H 81 L 92 ABG Base Excess 0 -7 L -2 VBG pH VBG pCO2 VBG pO2 VBG Base Excess 05/10/25 05/11/25 05/12/25 00:14 05:06 01:18 ABG pH 7.35 7.33 L 7.39 ABG pCO2 42 D 54 H D 48 ABG pO2 103 D 93 94 ABG HCO3 23 28 H 29 H ABG O2 Saturation 99 H 98 98 ABG Base Excess -3 2 3 VBG pH VBG pCO2 VBG pO2 VBG Base Excess 05/12/25 05/12/25 05/13/25 03:58 11:50 05:10 ABG pH 7.46 H 7.39 7.19 L* D ABG pCO2 41 48 60 H D ABG pO2 105 58 L* D 114 H D ABG HCO3 29 H 29 H 23 ABG O2 Saturation 99 H 90 L 98 ABG Base Excess 5 H 4 H -6 L VBG pH VBG pCO2 VBG pO2 VBG Base Excess 05/17/25 05/18/25 05/19/25 01:30 04:09 04:43 ABG pH 7.38 7.43 7.47 H ABG pCO2 46 44 43 ABG pO2 90 83 80 L ABG HCO3 27 H 29 H 31 H ABG O2 Saturation 98 97 97 ABG Base Excess 2 5 H 7 H VBG pH VBG pCO2 VBG pO2 VBG Base Excess 05/21/25 05/21/25 05/31/25 04:18 06:33 08:06 ABG pH 7.37 D 7.46 H ABG pCO2 50 H 38 D ABG pO2 40 L* D 121 H D ABG HCO3 29 H 27 H ABG O2 Saturation 66 L 100 H ABG Base Excess 3 3 VBG pH 7.55 VBG pCO2 31 L VBG pO2 144 H VBG Base Excess 5 H Quality Measures Quality Measures VTE prophylaxis (SCDs) and sepsis Current suspected stage: sepsis Possible source: pulmonary Blood cultures ordered: yes Antibiotic ordered: Yes Assessment & Plan Assessment Current Active Medications: Generic Name Dose Route Start Last Admin Trade Name Freq PRN Reason Stop Dose Admin Acetic Acid 250 ml 06/03/25 21:00 06/04/25 21:13 Acetic Acid Irrig 0.25% 500 Ml Btl IRRIG 07/03/25 20:59 250 ml BID KYA Administration Albuterol/Ipratropium 3 ml 05/09/25 18:19 05/28/25 06:34 Albuterol/Ipratropium (Duoneb) Rt Racquel 3 Ml Nebu INH 06/08/25 18:18 3 ml Q2HR PRN Administration SHORTNESS OF BREATH OR WHEEZE Enoxaparin Sodium 70 mg 05/30/25 21:00 06/04/25 21:13 Enoxaparin Sod Inj 80 Mg/0.8 Ml Syringe SC 06/13/25 20:59 70 mg BID KYA Administration Ferrous Sulfate 325 mg 06/01/25 09:00 06/03/25 08:40 Ferrous Sulfate 300 Mg/5 Ml Udc PO 07/01/25 08:59 325 mg QOD KYA Administration Ibuprofen 100 mg 06/03/25 09:49 06/04/25 23:52 Ibuprofen Susp 100 Mg/5 Ml Udc PO 07/03/25 09:48 100 mg Q6HR PRN Administration Fever > 100.3 Lansoprazole 30 mg 05/28/25 09:00 06/04/25 09:03 Lansoprazole 30 Mg Tab.Rap.Dr GT 06/27/25 08:59 30 mg QDAY KYA Administration Levetiracetam 750 mg 05/30/25 09:00 06/04/25 21:13 Levetiracetam Liqd 500 Mg/5 Ml Udc GT 06/29/25 08:59 750 mg BID KYA Administration Clotrimazole 1% 4 drop 06/04/25 14:45 06/04/25 21:14 Topical Solution BOTH EARS 07/04/25 14:44 4 drop BID KYA Administration Ondansetron HCl 4 mg 05/27/25 14:37 Ondansetron Odt 4 Mg Tabrap GT 06/26/25 14:36 Q6HR PRN NAUSEA OR VOMITING Protocol Oxycodone HCl 10 mg 06/03/25 14:00 06/05/25 05:04 Oxycodone Hcl 5 Mg Ir Tab PO 06/08/25 13:59 10 mg TID KYA Administration Phenobarbital 64.8 mg 06/04/25 21:00 06/04/25 21:14 Phenobarbital 32.4 Mg Tablet GT 06/18/25 20:59 64.8 mg HS KYA Administration Polyethylene Glycol 17 gm 05/16/25 09:15 06/04/25 09:02 Polyethylene Glycol 17 Gm Packet PO 06/15/25 09:14 17 gm QDAY KYA Administration Sevelamer Carbonate 1 gm 06/03/25 08:00 06/04/25 19:32 Sevelamer Carbonate 0.8 Gm Packet (Non-Formulary) GT 07/03/25 07:59 1 gm TIDWM KYA Administration Sodium Chloride 3 ml 05/17/25 11:43 Sodium Chloride Rt Racquel 0.9% 3 Ml Nebu INH 06/16/25 11:42 PRN PRN SOLN Valproic Acid 250 mg 05/27/25 18:00 06/05/25 05:04 Valproic Acid Syrup 250 Mg/5 Ml Udc GT 06/26/25 17:59 250 mg Q8HR KYA Administration Plan 24-year-old male with cerebral palsy, asthma, seizure disorder, chronic mastoiditis, recurrent pneumonia, and chronic PEG tube dependence presented with fever and seizure, was admitted for sepsis workup, and later transferred to the ICU for intubation due to concerns about airway protection. Patient has been downgraded from ICU to tele on 05/31/2025, after stabilization of his condition. #Sepsis #Bilateral chronic mastoiditis #Sinusitis #Bilateral otitis media #Bilateral otitis externa #Brittney parapsilosis #Community Acquired Pneumonia-Resolving #UTI, E.coli, ESBL -DDx: meningitis vs acute on chronic mastoiditis vs acute febrile illness. ? -History of chronic mastoiditis. -Met SIRS criteria on admission: T 105F, HR 176, RR 26, PaCO2 26, WBC 16.3. -Head CT (05/08/2025): prominent sphenoid ethmoid maxillary antral sinusitis, bilateral chronic mastoiditis, bilateral otitis media. -CT Orbit Sella Inner (05/08/2025): severe bilateral chronic mastoiditis, bilateral otitis externa and otitis media, bilateral cholesteatomas in the attics. -CXR (05/09/2025): Bilateral Perihilar Pneumonia. CXR (05/13/2025): Extensive Bilateral Pneumonia, CXR(05/19/2025): Significant bilateral Pneumonia -CT Chest/abd/pelvis (05/16/2025): Extensive bilateral pneumonia, Cystitis pattern, Cholelithiasis -A repeat Cocci serology test was negative -Lumbar puncture(05/10/2025): clear, WBC 3, glucose 70, total protein 25. CSF testing negative. -Respiratory viral panel (05/10/2025): rhinovirus/enterovirus and human metapneumovirus detected. -UA 05/08 and 05/16 negative. [Culture Hx] -1st Blood Cx (05/08): No growth for 5 days. 2nd Blood Cx (05/11): No growth for 5 days, 3rd Blood Cx (05/16): No growth for 5 days, 4th Blood Cx (06/01): No growth for 48hrs -1st Sputum Cx (05/09): Pseudomonas aeruginosa (only sensitive to Meropenem, Tobramycin). 2nd Sputum Cx (05/13): Mixed oral hamilton. 3rd Sputum Cx (05/19): Mixed oral hamilton, 4th Sputum Cx (05/20): Brittney albicans, 5th Sputum Cx (06/01): GNR -CSF Cx (05/10): No growth for 3 days -Left Ear Cx (05/12): Brittney parapsilosis -Right Ear Cx(05/12): E.coli, ESBL (only sensitive to Ertapenem, Meropenem, Zosyn) -Urine Cx (06/01): E.coli, ESBL (only sensitive to Ertapenem, Meropenem, Nitrofurantoin, Zosyn) [Antibiotics/Antifungal Hx] IV Zosyn 3.375g x1 (at 05/08) IV Ceftriaxone 1g x1 (at 05/08) IV Acyclovir 640mg q8hr (05/08-05/11) since LP negative. IV Ceftriaxone 2g q12hr (05/08-05/11) IV Vancomycin qd (05/08-05/11) since MRSA screen is negative Ofloxacin Opt racquel 0.3% 5 drops Both ears bid (05/09-05/18, 05/21-05/31) IV Meropenem 1000mg q8hr (05/12-05/22, 05/24-05/25) IV Doxycycline (05/16-05/18) IV Micafungin 100mg qd (05/28-05/30, 06/01-06/03) Ciprofloxacin Op Racquel 0.3% ear drops (06/02-06/03) -CXR is showing pneumonia, but CXR often remain abnormal for days to weeks. The infiltrate or consolidation can persist even though the infection has cleared. The radiographic improvement can take up to 4-6 weeks.? Patient is on minimal ventilator setting, oxygen requirement is stable, and has completed antibiotics course. -UTI unlikely sources of infection given low number of colonies and long antibiotics treatment in ICU. -Per ENT, Dr. Ojeda, patient does not have acute coalescent mastoiditis in either ear. Left and right middle ear is also not filled with effusion. -Currently suspecting sources of infection likely from left otitis externa. Plan: -Repeat blood culture, CXR and EEG to rule out infection and seizure-induced fever. -Consider discontinue phenobarbital tomorrow. -Continue Clotrimazole ear drops, 4 drops in both ears bid, duration for 10 days as recommended by ENT. -Acetic acid irrigation twice daily to the left ear. -ENT will reexamine the patient in next week after treatment with acetic acid irrigation to the left ear and clotrimazole. -IV Ibuprofen 100mg po q6hr prn for fever >100.3F -Avoid water in both ears. -Consulted ICU, Dr. Armendariz, appreciate recommendations -Consulted ID, Dr. Rubio, appreciate recommendations -Consulted ENT, Dr. Ojeda, appreciate recommendations #Agitated delirium #Serotonin Syndrome? -Patient was extremely agitated before ICU admission, likely due to pain from paraphimosis. -Patient initially sedated with propofol and fentanyl, titrated to Precedex with Benadryl before extubation. -Patient failed extubation and was intubated on 05/12. Propofol and fentanyl was restarted. -Still spiking fevers and tachycardic, possible serotonin syndrome -EEG did not show seizure activity per neurology. -MRI brain 05/23: showed chronic infections, no acute pathology. -Off Versed drip -Currently tapering down phenobarbital. Changed q12hr to HS Plan: -Phenobarbital 64.8 mg GT HS. -Oxycodone 10mg po tid -If patient tolerates oxycodone and phenobarbital tapering, plan to discontinue phenobarbital tomorrow -Neurology consulted, appreciate recommendations. -Avoid medications that may precipitate serotonin syndrome including guaifenesin and fentanyl #Phimosis #Paraphimosis (resolved) #Balanitis (resolved) -Edema and tenderness of the glans penis. -Swelling of the distal retracted foreskin. -Constricting band of tissue proximal to the head of the penis at the coronal sulcus. -Hawkins was removed on 05/09 and transitioned to Oivi external urinary catheter. Discussed with family about the need to reinsert hawkins due to the patient's acute urinary retention. Family were in agreement with this plan. Hawkins was reinserted on 05/10 due to urinary retention. Hawkins changed and replaced on 05/16. Currently on straight cath protocol as needed. -S/p reduction of the paraphimosis by Dr. Vargas on 05/09. -05/29/2025 Patient noticed to have unretractable foreskin Plan: -Pending possible partial dorsal slit when urologist returns on Wednesday 06/06 -Control patient's pain with sedation, titrate down. -Monitor urine output. #Hx of Cerebral palsy #Hx of seizures -Temperature of 105F on admission, with Persistent fever spikes. -EEG 05/11 unremarkable -Repeat EEG 05/20: electrographic seizure activity. -Continuous EEG 05/22-05/23: no seizure activity or status epilepticus. Plan: -On Keppra 750 mg GT bid, -On Valproic Acid Syrup 250mg GT q8hr -Adjust seizure medications if breakthrough seizures recur -Seizure precautions. -Aspiration precautions. -Neurology on board, appreciate recs #Bronchospasm #History of asthma -Magnesium for bronchodilator effect as needed. -Albuterol and Ipratropium as needed. #Failed extubation 05/12 #Acute hypoxic respiratory failure s/p tracheostomy #Ventilator dependent -Patient underwent tracheostomy on 05/26/2025 -Chest physiotherapy daily #Chronic PEG tube dependence -Nepro 1.8 Christ 1L RTH -Pro Stat Sugar Free 30 ml #Hyperphosphatemia -Sevelamer 1g GT 3 times daily, adjust if needed. #Normocytic Anemia -Continue to monitor labs #Leukocytosis-Resolving #Maculopapular rash to the buttocks-Resolving #Acute urinary retention-Resolved #Hypoalbuminemia-Resolved #Hyperkalemia-Resolved #Acute kidney injury-Resolved #Anion Gap Metabolic Acidosis-Resolved Disposition: Tele Diet: Nepro 1.8 Christ 1L RTH and Pro Stat Sugar Free 30 ml GI prophylaxis: Lansoprazole 30mg GT qd DVT prophylaxis: SCDs, Lovenox 70mg SC bid Code: FULL Assessment and plan discussed with my attending physician Dr. Dang and Dr. Cross (PGY-2) Dr. Molina (PGY-1) - senior resident care director Attending Provider Attestation/Addendum I have discussed and was present for the essential components of the history, physical examination, diagnosis, and treatment plan with the resident. I agree with the patient's care as documented by the resident and amended herein by me. Kade Dang DO. Although this document has been carefully reviewed, there may still be some phonetic and other typographical errors. These errors are purely grammatical due to imperfections in the software program and should not be construed in any way to compromise the substance of the patient's medical care during this visit.
[2025-06-05] MEDS: ENOXAPARIN SOD INJ 80 MG/0.8 ML SYRINGE 70 MG SC ×2 (08:11→20:53)
[2025-06-05] MEDS: levETIRAcetam LIQD 500 MG/5 ML UDC 750 MG GT ×2 (08:12→20:53)
[2025-06-05] MEDS: LANSOPRAZOLE 30 MG TAB.RAP.DR GT (08:12)
[2025-06-05] MEDS: POLYETHYLENE GLYCOL 17 GM PACKET PO (08:13)
[2025-06-05] MEDS: Acetic Acid Irrig 0.25% 500 ML BTL 250 ML IRRIG ×2 (08:13→22:14)
[2025-06-05] MEDS: SEVELAMER CARBONATE 0.8 GM PACKET (NON-FORMULARY) 1 GM GT ×2 (08:13→12:05)
[2025-06-05] MEDS: IBUPROFEN SUSP 100 MG/5 ML UDC PO ×2 (08:30→20:54)
[2025-06-05] MEDS: POTASSIUM CHLORIDE 10% 20 MEQ/15 ML UDC 40 MEQ GT (08:59)
[2025-06-05] MEDS: MAGNESIUM OXIDE 400 MG TABLET GT ×3 (08:59→22:14)
[2025-06-05] MEDS: MIDAZOLAM INJ 1 MG/ML VIAL 2 ML 2 MG IVP ×5 (10:34→16:48)
[2025-06-05] MEDS: RINGERS LACTATED 500 ML 500 ML 999 ML IV ×2 (10:34→13:43)
[2025-06-05] MEDS: MORPHINE SULF INJ 4 MG/ML VIAL 2 MG IVP ×2 (13:33→16:47)
[2025-06-05 13:59] LABS: Base Excess, Venous 4 (-3-3); Lactate (Lactic Acid) 1.9 mMol/L (0.4-2.0); O2 Saturation, Venous 98 % (96-97); PCO2, Venous 34 mmHg (36-56); PO2, Venous 90 mmHg (15-58); pH, Venous 7.50 (7.33-7.66)
[2025-06-05] MEDS: PIPER/TAZO INJ 4.5 GM in SODIUM CHLORIDE 0.9% (POP) 100 ML IV ×2 (14:32→22:14)
--- NOTE | 2025-06-05 16:59 | ECHO_ITS ---
Patient Info Name: David Baltazar Age: 25 years : 2000 Gender: Male Ht: 150 cm Wt: 68 kg BSA: 1.72 m2 BP: 112 / 68 mmHg HR: 99 bpm Exam Date: 06/06/2025 9:08 AM Admit Date: 05/08/2025 Site: [facility] Room Number: 254 Patient Status: I Technical Quality: Poor Exam Type: CA echo doppler complete Reason for Poor Study: patient intubated Campaign Analyst: Jojo Miles Ordering Physician: Robert Cross Study Info Indications Fever, r/o vegetations - Primary Location: S2SX Mitral Valve Name Value Normal MV Annular TDI MV Septal e' Velocity 90.2 cm/s Tricuspid Valve Name Value Normal TV Regurgitation Doppler TR Peak Velocity 265 cm/s Estimated PAP/RSVP RA Pressure 3 mmHg <=5 PA Systolic Pressure 31 mmHg <36 RV Systolic Pressure 31 mmHg <36 Ventricles Name Value Normal LV Dimensions 2D/MM IVS Diastolic Thickness (2D) 1.0 cm 0.6-1.0 LVID Diastole (2D) 4.2 cm 4.2-5.8 LVIW Diastolic Thickness (2D) 1.2 cm 0.6-1.0 LVID Systole (2D) 2.7 cm 2.5-4.0 LV Mass (2D Cubed) 157.06 g 88.00-224.00 LV Mass Index (2D Cubed) 92 g/m2 49-115 Relative Wall Thickness (2D) 0.57 <=0.42 IVS/LVIW Diastolic Thickness (2D) 0.83 0.00-1.50 LV Fractional Shortening/Ejection Fraction 2D/MM LV Fractional Shortening (2D) 36 % 25-43 LV EF (2D Teichholz) 66 % Left Ventricle Left ventricular chamber dimension is normal. Left ventricular systolic function is normal with visually estimated ejection fraction of 55-60%. There is normal geometry noted in the left ventricle. Left ventricular segmental wall motion is normal. There is grade I diastolic dysfunction in the left ventricle. Right Ventricle Right ventricular chamber dimension is normal. Right ventricular systolic function is normal. Left Atrium Left atrial chamber dimension is normal. Right Atrium Right atrial chamber dimension is normal. Aortic Valve The aortic valve is trileaflet. There is no aortic valve sclerosis. There is no aortic valve stenosis. There is no aortic valve regurgitation. Pulmonic Valve The pulmonic valve is normal. There is no pulmonic valve stenosis. There is no pulmonic regurgitation. Mitral Valve The mitral valve has normal leaflets. There is no mitral valve stenosis. There is trace mitral valve regurgitation. Tricuspid Valve The tricuspid valve leaflets are normal. There is no tricuspid valve stenosis. There is trace tricuspid valve regurgitation. No pulmonary hypertension, estimated pulmonary arterial systolic pressure is 31 mmHg and systemic blood pressure of 112 mmHg in systole. Pericardium/Pleural The pericardium appears normal. There is no pericardial effusion. No pleural effusion visualized. Inferior Vena Cava Normal inferior vena cava with >50% collapse upon inspiration consistent with normal right atrial pressure, 3 mmHg. Aorta The aortic measurements are indexed to age and body surface area. The aortic root at the sinus of Valsalva is not well visualized. The prox ascending aorta is not well visualized. Summary 1. Left ventricle size is normal and systolic function is normal. Estimated ejection fraction is 55-60%. There is grade I diastolic dysfunction. There is normal geometry noted. 2. Right ventricle chamber size is normal and systolic function is normal. Estimated RVSP is 31 mmHg. 3. There is trace mitral valve regurgitation. 4. There is trace tricuspid valve regurgitation. 5. Normal IVC with estimated RA pressure 3 mmHg. 6. NO evidence of vegetations or endocarditis. Recommendations * NO evidence of vegetations or endocarditis. Report Signatures Finalized by Radha Santana on 06/06/2025 01:01 PM
--- NOTE | 2025-06-05 17:13 | ESCONSULT_ITS ---
HPI Data of Consult Requesting Physician: Cortez Dang DO Admitting Provider: Natasha Moreira MD Attending Provider: Cortez Dang DO Primary Care Provider: Tavares Cole MD Consult Narrative Reason for consult: tachypnea, fever History of present illness: 25-year-old male with cerebral palsy, asthma, seizure disorder, chronic mastoiditis, recurrent pneumonia, and chronic PEG tube dependence presented with fever and seizure, was admitted for sepsis workup, and later transferred to the ICU on 05/09/2025 where he underwent intubation and eventually underwent tracheostomy due to not being able to take off mechanical ventilator and increased accretions. Patient had a prolonged ICU stay until 05/31/2025 when he was downgraded back to the medical floors that his fever had subsided after medications which could have caused several changes and then were discontinued. Patient in the ICU received multiple full treatments with antibiotics including meropenem and got a bronchoscopy throughout the ICU stay. Once patient was downgraded to the medical floors on 06/01/2025 patient spiked a fever of 101.8 and was more tachycardic. IV fluids were given at this time and Versed pushes were also given for agitation. Hospitalist team then repeated blood cultures and urine cultures as well as sputum cultures. Patient sputum culture on 06/01/2025 did grow Pseudomonas aeruginosa sensitive to Zosyn and his urine did grow ESBL E. coli which was sensitive to Zosyn as well. Patient was also seen on 06/03/2025 by ENT and recommended acetic acid irrigations to the left ear with clotrimazole or VoSol drops twice daily for 10 days and also stated no need for surgical intervention for mastoiditis at this time. Even on recommendations by ENT and after starting fluconazole as well as Zosyn on 06/05/2025 patient still spiking fevers and today his heart was in the 160s and he was very tachypneic. On assessment patient was noted to have increased respiratory rate, was diaphoretic, and seemed in significant discomfort and was agitated. At this time patient was transferred to the ICU for further level care given fever of unclear etiology and increased agitation as well as breathing over the vent. Patient's family was updated about current condition and need for bronchoscopy given increased secretions. Consent was signed. cc:: cc: Cortez Dang DO Review of Systems Review of Systems ROS Unobtainable: unobtainable due to medical condition Past Medical History Surgical History OTHER SURGICAL HX: PEG tube placement, ear surgery, foot surgery Social History SMOKING STATUS: Never smoker SUBSTANCE USE: does not use ALCOHOL: Never Exam Vital Signs Temp Pulse Resp BP Pulse Ox O2 Del Method O2 Flow Rate 101.4 F H 127 H 28 H 133/94 H 97 Mechanical Ventilation 35 06/05/25 12:00 06/05/25 13:38 06/05/25 12:00 06/05/25 12:00 06/05/25 13:38 06/05/25 12:00 06/05/25 12:00 FiO2 30 06/05/25 13:38 Narrative Exam Gen: Agitated, trached, nonverbal at baseline, in mild respiratory distress. HEENT: NCAT, EOMI, Pupils reactive KARLO, not icteric, Bilateral inferior eye scleral hemorrhage. External ears normal. No rhinorrhea. Moist mucous membranes with significant secreations. Neck: Supple, full range of motion, no observable masses, No meningeal sign. Lungs: Mild Respiratory distress, Coarse breath sounds bilateral. CV: tachycardic, no murmurs. Abdomen: Soft, nondistended, No rebound tenderness, PEG tube in place. MSK: No lower extremity edema no redness, peripheral pulses presents, Contracted and swollen hands. Skin: No, petechiae, lesions, erythematous Neuro: Unable to assess due to patient's medical condition, pupils reactive Results Labs 06/05/25 05:16 06/05/25 05:16 Labs: Short CBC 06/05/25 Range/Units 05:16 WBC 12.3 H (3.8-10.6) Thou/mm3 Hgb 8.6 L (13.5-16.0) g/dL Hct 26.3 L (41.0-53.0) % Plt Count 391 D (140-440) Thou/mm3 BMP 06/05/25 05:16 Sodium 137 Potassium 3.4 D Chloride 98 Carbon Dioxide 27.6 BUN 12 Creatinine 0.6 Glucose 95 Calcium 10.0 Liver Function 06/05/25 Range/Units 05:16 Total Bilirubin 0.3 (0.3-1.2) mg/dL AST 36 H (0-34) U/L ALT 39 (10-49) U/L Alkaline Phosphatase 218 H (46-116) U/L Albumin 4.2 (3.5-5.0) gm/dL Urine 06/04/25 Range/Units 18:11 Urine Color Lt-Yellow (Lt Yel-Yel) Urine Clarity Turbid A (Clear/Hazy) Urine pH 7.5 H (5.0-7.0) Ur Specific Spencer 1.018 (1.001-1.035) Urine Protein Trace (Neg - Trace) Urine Glucose (UA) Negative (Negative) ABG Interpretation ABG results: 05/09/25 05/09/25 05/09/25 11:56 13:40 18:50 ABG pH 7.40 7.27 L D 7.28 L ABG pCO2 40 43 55 H D ABG pO2 131 H 53 L* D 70 L ABG HCO3 25 20 26 ABG O2 Saturation 99 H 81 L 92 ABG Base Excess 0 -7 L -2 VBG pH VBG pCO2 VBG pO2 VBG Base Excess 05/10/25 05/11/25 05/12/25 00:14 05:06 01:18 ABG pH 7.35 7.33 L 7.39 ABG pCO2 42 D 54 H D 48 ABG pO2 103 D 93 94 ABG HCO3 23 28 H 29 H ABG O2 Saturation 99 H 98 98 ABG Base Excess -3 2 3 VBG pH VBG pCO2 VBG pO2 VBG Base Excess 05/12/25 05/12/25 05/13/25 03:58 11:50 05:10 ABG pH 7.46 H 7.39 7.19 L* D ABG pCO2 41 48 60 H D ABG pO2 105 58 L* D 114 H D ABG HCO3 29 H 29 H 23 ABG O2 Saturation 99 H 90 L 98 ABG Base Excess 5 H 4 H -6 L VBG pH VBG pCO2 VBG pO2 VBG Base Excess 05/17/25 05/18/25 05/19/25 01:30 04:09 04:43 ABG pH 7.38 7.43 7.47 H ABG pCO2 46 44 43 ABG pO2 90 83 80 L ABG HCO3 27 H 29 H 31 H ABG O2 Saturation 98 97 97 ABG Base Excess 2 5 H 7 H VBG pH VBG pCO2 VBG pO2 VBG Base Excess 05/21/25 05/21/25 05/31/25 04:18 06:33 08:06 ABG pH 7.37 D 7.46 H ABG pCO2 50 H 38 D ABG pO2 40 L* D 121 H D ABG HCO3 29 H 27 H ABG O2 Saturation 66 L 100 H ABG Base Excess 3 3 VBG pH 7.55 VBG pCO2 31 L VBG pO2 144 H VBG Base Excess 5 H 06/05/25 13:37 ABG pH ABG pCO2 ABG pO2 ABG HCO3 ABG O2 Saturation ABG Base Excess VBG pH 7.50 VBG pCO2 34 L VBG pO2 90 H VBG Base Excess 4 H Quality Measures Quality Measures VTE prophylaxis (SCDs) and sepsis Current suspected stage: sepsis Possible source: pulmonary Blood cultures ordered: yes Antibiotic ordered: Yes Medications Home Medications and Allergies Home Medications ?Medication ?Instructions ?Recorded ?Confirmed ?Type acetaminophen 160 mg/5 mL oral 650 mg feeding tube Q4H R PRN fever 01/16/21 05/08/25 History liquid or pain ascorbic acid (vitamin C) 1,000 mg 1 g feeding tube QD AY 01/16/21 05/08/25 History tablet (Vitamin C) fluticasone propionate 50 1 spray intranasal BID 01/1605/08/25 History mcg/actuation nasal spray,suspension ofloxacin 0.3 % ear drops in a 5 drp otic (ear) BID 05/08/25 History dropperette ciprofloxacin 0.3 %-dexamethasone 4 drp otic (ear) BID 03/06/21 05/08/25 History 0.1 % ear drops,suspension (Ciprodex) omeprazole 20 mg capsule,delayed 20 mg feeding tube DA BOB 09/27/23 05/08/25 History release levetiracetam 100 mg/mL oral 100 mg feeding tube BID 1 05/08/25 History solution montelukast 10 mg tablet 10 mg feeding tube DAILY 07/2005/08/25 History quetiapine 100 mg tablet 100 mg feeding tube HS 05/0805/08/25 History quetiapine 50 mg tablet 50 mg feeding tube QAM 05/0805/08/25 History Allergies Allergy/AdvReac Type Severity Reaction Status Date / Time valbenazine (From Bannerezza) Allergy Severe Agitated Verified 11/02/23 00:43 Sulfa (Sulfonamide Allergy Intermediate Rash Verified 11/02/23 00:43 Antibiotics) glycopyrrolate Allergy Rash Verified 11/02/23 00:43 haloperidol Allergy Rash Verified 11/02/23 00:43 sulfamethoxazole (From Allergy Rash Verified 11/02/23 00:43 Bactrim) trimethoprim (From Bactrim) Allergy Rash Verified 11/02/23 00:43 fentanyl AdvReac Intermediate serotonin Verified 05/31/25 12:02 syndrome guaifenesin AdvReac Intermediate serotonin Verified 05/31/25 12:02 syndrome Visit Medications Acetic Acid (Acetic Acid Irrig 0.25% 500 Ml Btl) 250 ml IRRIG BID [facility] Stop: 07/03/25 20:59 Last Admin: 06/05/25 08:13 Dose: 250 ml Albuterol/Ipratropium (Albuterol/Ipratropium (Duoneb) Rt Racquel 3 Ml Nebu) 3 ml INH Q2HR PRN PRN Reason: SHORTNESS OF BREATH OR WHEEZE Stop: 06/08/25 18:18 Last Admin: 05/28/25 06:34 Dose: 3 ml Enoxaparin Sodium (Enoxaparin Sod Inj 80 Mg/0.8 Ml Syringe) 70 mg SC BID [facility] Stop: 06/13/25 20:59 Last Admin: 06/05/25 08:11 Dose: 70 mg Ferrous Sulfate (Ferrous Sulfate 300 Mg/5 Ml Udc) 325 mg PO QOD KYA Stop: 07/01/25 08:59 Last Admin: 06/05/25 08:12 Dose: 325 mg Piperacillin Sod/Tazobactam (Sod 4.5 gm/ Sodium Chloride) 100 mls @ 200 mls/hr IV Q8HR KYA; Protocol Stop: 06/12/25 13:59 Last Admin: 06/05/25 14:32 Dose: 200 mls/hr Fluconazole (Diflucan/Ns Ivpb) 400 mg in 200 mls @ 100 mls/hr IV QDAY [facility] Stop: 06/12/25 17:01 Ibuprofen (Ibuprofen Susp 100 Mg/5 Ml Udc) 100 mg PO Q6HR PRN PRN Reason: Fever > 100.3 Stop: 07/03/25 09:48 Last Admin: 06/05/25 08:30 Dose: 100 mg Lansoprazole (Lansoprazole 30 Mg Tab.Rap) 30 mg GT QDAY [facility] Stop: 06/27/25 08:59 Last Admin: 06/05/25 08:12 Dose: 30 mg Levetiracetam (Levetiracetam Liqd 500 Mg/5 Ml Udc) 750 mg GT BID [facility] Stop: 06/29/25 08:59 Last Admin: 06/05/25 08:12 Dose: 750 mg Magnesium Oxide (Magnesium Oxide 400 Mg Tablet) 400 mg GT TID KYA Stop: 06/05/25 22:01 Last Admin: 06/05/25 14:31 Dose: 400 mg Midazolam HCl (Midazolam Inj 1 Mg/Ml Vial 2 Ml) 2 mg IVP Q3HR PRN PRN Reason: AGITATION OR ANXIETY Stop: 06/10/25 16:12 Last Admin: 06/05/25 16:27 Dose: 2 mg Clotrimazole 1% (Topical Solution) 4 drop BOTH EARS BID [facility] Stop: 07/04/25 14:44 Last Admin: 06/05/25 08:13 Dose: 4 drop Ondansetron HCl (Ondansetron Odt 4 Mg Tabrap) 4 mg GT Q6HR PRN; Protocol PRN Reason: NAUSEA OR VOMITING Stop: 06/26/25 14:36 Oxycodone HCl (Oxycodone Hcl 5 Mg Ir Tab) 10 mg PO TID [facility] Stop: 06/08/25 13:59 Last Admin: 06/05/25 14:41 Dose: Not Given Phenobarbital (Phenobarbital 32.4 Mg Tablet) 64.8 mg GT HS [facility] Stop: 06/18/25 20:59 Last Admin: 06/04/25 21:14 Dose: 64.8 mg Polyethylene Glycol (Polyethylene Glycol 17 Gm Packet) 17 gm PO QDAY KYA Stop: 06/15/25 09:14 Last Admin: 06/05/25 08:13 Dose: 17 gm Sevelamer Carbonate (Sevelamer Carbonate 0.8 Gm Packet (Non-Formulary)) 1 gm GT TIDWM [facility] Stop: 07/03/25 07:59 Last Admin: 06/05/25 12:05 Dose: 1 gm Sodium Chloride (Sodium Chloride Rt Racquel 0.9% 3 Ml Nebu) 3 ml INH PRN PRN PRN Reason: SOLN Stop: 06/16/25 11:42 Valproic Acid (Valproic Acid Syrup 250 Mg/5 Ml Udc) 250 mg GT Q8HR KYA Stop: 06/26/25 17:59 Last Admin: 06/05/25 14:32 Dose: 250 mg Discontinued Medications Acetaminophen (Acetaminophen Supp 650 Mg Supp) 975 mg MT X1 ONE Stop: 05/08/25 01:03 Last Admin: 05/08/25 01:27 Dose: 975 mg Acetaminophen (Acetaminophen 325 Mg Tablet) 650 mg PO X1 ONE Stop: 05/09/25 02:53 Last Admin: 05/09/25 02:59 Dose: 650 mg Acetaminophen (Acetaminophen 325 Mg Tablet) 325 mg PO Q6HR PRN PRN Reason: Fever >100.4 Stop: 06/13/25 05:05 Acetaminophen (Acetaminophen 325 Mg Tablet) 650 mg PO Q6HR PRN PRN Reason: Fever >100.4 Stop: 06/13/25 05:12 Last Admin: 05/14/25 18:15 Dose: 650 mg Acetaminophen (Acetaminophen Racquel 325 Mg/10 Ml Udc) 650 mg NG Q4HR PRN PRN Reason: fever >100.4 Stop: 06/27/25 10:35 Last Admin: 06/02/25 12:04 Dose: 650 mg Acetic Acid (Acetic Acid Irrig 0.25% 500 Ml Btl) 250 ml IRRIG QDAY KYA Stop: 07/03/25 11:59 Last Admin: 06/03/25 14:17 Dose: Not Given Albuterol (Albuterol Rt 2.5 Mg/3 Ml Nebu) 2.5 mg INH X1 ONE Stop: 05/08/25 04:02 Last Admin: 05/08/25 04:13 Dose: 2.5 mg Albuterol (Albuterol Rt 2.5 Mg/0.5 Ml Nebu) 15 mg INH X1 ONE Stop: 05/09/25 19:36 Last Admin: 05/09/25 19:56 Dose: 15 mg Albuterol (Albuterol Rt 2.5 Mg/0.5 Ml Nebu) 2.5 mg INH X1 ONE Stop: 05/17/25 11:44 Last Admin: 05/17/25 12:32 Dose: 2.5 mg Albuterol/Ipratropium (Albuterol/Ipratropium (Duoneb) Rt Racquel 3 Ml Nebu) 3 ml INH Q2HR PRN PRN Reason: SHORTNESS OF BREATH OR WHEEZE Stop: 06/07/25 16:12 Albuterol/Ipratropium (Albuterol/Ipratropium (Duoneb) Rt Racquel 3 Ml Nebu) 3 ml INH X1 ONE Stop: 05/21/25 07:11 Last Admin: 05/21/25 07:17 Dose: 3 ml Albuterol/Ipratropium (Albuterol/Ipratropium (Duoneb) Rt Racquel 3 Ml Nebu) 3 ml INH X1 ONE Stop: 05/22/25 19:02 Last Admin: 05/22/25 20:28 Dose: 3 ml Baclofen (Baclofen 10 Mg Tablet) 10 mg PO TID PRN PRN Reason: Spasms Stop: 06/15/25 00:25 Last Admin: 05/20/25 01:40 Dose: 10 mg Calcium Carbonate (Calcium Carbonate 600 Mg Tablet) 600 mg GT QDAY [facility] Stop: 06/19/25 18:19 Last Admin: 06/03/25 08:40 Dose: 600 mg Calcium Gluconate (Calcium Gluconate 10% Inj 1 Gm/10 Ml Vial) 1 gm IV X1 ONE Stop: 05/22/25 19:02 Last Admin: 05/22/25 19:21 Dose: 1 gm Ciprofloxacin (Ciprofloxacin Op Racquel 0.3% 5 Ml Btl) 0 drop BOTH EYES Q4HR [facility] Stop: 07/02/25 15:14 Last Admin: 06/03/25 05:39 Dose: 1 drop Ciprofloxacin/Dexamethasone (Ciprofloxacin/Dexam Otic Racquel 7.5 Ml Btl) 3 drop BOTH EARS BID [facility] Stop: 07/03/25 09:59 Last Admin: 06/03/25 10:36 Dose: Not Given Ciprofloxacin/Dexamethasone (Ciprofloxacin/Dexam Otic Susp 7.5 Ml Btl) 3 drop BOTH EARS BID [facility] Stop: 07/03/25 10:29 Last Admin: 06/03/25 11:46 Dose: Not Given Clonazepam (Clonazepam 0.5 Mg Tablet) 2 mg PO TID KYA Stop: 05/24/25 08:44 Last Admin: 05/21/25 05:09 Dose: 2 mg Clonazepam (Clonazepam 0.5 Mg Tablet) 1 mg PO BID [facility] Stop: 05/26/25 20:59 Last Admin: 05/23/25 19:40 Dose: Not Given Clonazepam (Clonazepam 0.5 Mg Tablet) 2 mg PO BID [facility] Stop: 05/28/25 20:59 Last Admin: 05/26/25 08:27 Dose: 2 mg Clonazepam (Clonazepam 0.5 Mg Tablet) 1 mg PO X1 ONE Stop: 05/23/25 09:40 Last Admin: 05/23/25 09:57 Dose: 1 mg Clonazepam (Clonazepam 0.5 Mg Tablet) 2 mg PO TID KYA Stop: 05/31/25 13:59 Last Admin: 05/31/25 05:34 Dose: 2 mg Phenobarbital Sodium 130 mg/ (Sodium Chloride 12 ml) 0 mg IVP X1 ONE Stop: 05/16/25 09:13 Last Admin: 05/16/25 09:54 Dose: 130 mg Phenobarbital Sodium 130 mg/ (Sodium Chloride 12 ml) 0 mg IVP Q6H PRN PRN Reason: AGITATION Stop: 05/30/25 09:09 Phenobarbital Sodium 130 mg/ (Sodium Chloride 12 ml) 0 mg IVP Q6H PRN PRN Reason: AGITATION Stop: 05/30/25 22:14 Last Admin: 05/17/25 08:50 Dose: 130 mg Phenobarbital Sodium 130 mg/ (Sodium Chloride 12 ml) 0 mg IVP X1 ONE Stop: 05/21/25 21:01 Last Admin: 05/21/25 21:30 Dose: 130 mg Phenobarbital Sodium 130 mg/ (Sodium Chloride 12 ml) 0 mg IVP X1 ONE Stop: 05/23/25 08:38 Last Admin: 05/23/25 08:55 Dose: 130 mg Phenobarbital Sodium 260 mg/ (Sodium Chloride 24 ml) 0 mg IVP Q6HR [facility] Stop: 06/06/25 11:59 Cyproheptadine HCl (Cyproheptadine Hcl 4 Mg Tablet) 12 mg PO X1 ONE Stop: 05/28/25 10:45 Last Admin: 05/28/25 12:12 Dose: Not Given Cyproheptadine HCl (Cyproheptadine Hcl 4 Mg Tablet) 2 mg PO Q2H [facility] Stop: 06/27/25 12:59 Last Admin: 05/28/25 15:56 Dose: Not Given Cyproheptadine HCl (Cyproheptadine Hcl 4 Mg Tablet) 2 mg PO Q2H [facility] Stop: 06/29/25 08:59 Dexamethasone Sodium Phosphate (Dexamethasone Sod Phos Inj 4 Mg/Ml Vial) 4 mg IVP X1 ONE Stop: 05/12/25 10:01 Last Admin: 05/12/25 10:07 Dose: 4 mg Diazepam (Diazepam Inj 5 Mg/Ml Vial 2 Ml) 2 mg IVP X1 ONE Stop: 05/09/25 04:10 Last Admin: 05/09/25 04:27 Dose: 2 mg Diazepam (Diazepam Inj 5 Mg/Ml Vial 2 Ml) 5 mg IVP X1 PRN PRN Reason: Prior to CT Scan Stop: 05/14/25 07:54 Diazepam (Diazepam Inj 5 Mg/Ml Vial 2 Ml) 5 mg IVP X1 ONE Stop: 05/09/25 08:07 Last Admin: 05/09/25 08:11 Dose: 5 mg Diazepam (Diazepam Inj 5 Mg/Ml Vial 2 Ml) 5 mg IVP X1 PRN PRN Reason: AGITATION (MILD) Diazepam (Diazepam Inj 5 Mg/Ml Vial 2 Ml) 2 mg IV Q4HR PRN PRN Reason: ANXIETY Stop: 05/14/25 10:55 Last Admin: 05/09/25 11:14 Dose: 2 mg Diazepam (Diazepam Inj 5 Mg/Ml Vial 2 Ml) 5 mg IVP X1 ONE Stop: 05/09/25 18:41 Last Admin: 05/09/25 20:56 Dose: Not Given Diazepam (Diazepam Inj 5 Mg/Ml Vial 2 Ml) 5 mg IVP X1 ONE Stop: 05/10/25 22:02 Last Admin: 05/10/25 22:15 Dose: 5 mg Diphenhydramine HCl (Diphenhydramine Inj 50 Mg/Ml Vial) 12.5 mg IM X1 ONE Stop: 05/08/25 13:16 Last Admin: 05/08/25 13:31 Dose: 12.5 mg Diphenhydramine HCl (Diphenhydramine Inj 50 Mg/Ml Vial) 25 mg IVP X1 ONE Stop: 05/08/25 14:45 Last Admin: 05/08/25 14:58 Dose: 25 mg Diphenhydramine HCl (Diphenhydramine Inj 50 Mg/Ml Vial) 25 mg IVP X1 ONE Stop: 05/08/25 15:31 Last Admin: 05/08/25 15:42 Dose: 25 mg Diphenhydramine HCl (Diphenhydramine Inj 50 Mg/Ml Vial) 25 mg IVP X1 ONE Stop: 05/12/25 09:44 Last Admin: 05/12/25 10:16 Dose: Not Given Diphenhydramine HCl (Diphenhydramine Inj 50 Mg/Ml Vial) 50 mg IVP X1 ONE Stop: 05/12/25 09:47 Last Admin: 05/12/25 10:07 Dose: 50 mg Diphenhydramine HCl (Diphenhydramine Inj 50 Mg/Ml Vial) 50 mg IVP Q6HR PRN PRN Reason: AGITATION OR ANXIETY Stop: 06/11/25 16:39 Last Admin: 05/13/25 04:04 Dose: 50 mg Enoxaparin Sodium (Enoxaparin Sod Inj 30 Mg/0.3 Ml Syringe) 30 mg SC QDAY [facility] Stop: 05/25/25 08:59 Last Admin: 05/15/25 08:55 Dose: 30 mg Enoxaparin Sodium (Enoxaparin Sod Inj 40 Mg/0.4 Ml Syringe) 40 mg SC QDAY [facility]; Protocol Stop: 05/30/25 08:59 Last Admin: 05/16/25 10:20 Dose: 40 mg Enoxaparin Sodium (Enoxaparin Sod Inj 80 Mg/0.8 Ml Syringe) 80 mg SC BID [facility]; Protocol Stop: 05/30/25 20:59 Enoxaparin Sodium (Enoxaparin Sod Inj 40 Mg/0.4 Ml Syringe) 40 mg SC QDAY KYA Stop: 06/06/25 11:14 Last Admin: 05/30/25 08:31 Dose: 40 mg Epinephrine (Epinephrine Rt Racquel 0.5 Ml Nebu) 0.5 ml INH X1 ONE Stop: 05/12/25 09:34 Last Admin: 05/12/25 09:38 Dose: 0.5 ml Etomidate (Etomidate Inj 2 Mg/Ml Vial 10 Ml) 20 mg IVP X1 ONE Stop: 05/13/25 04:21 Last Admin: 05/13/25 04:46 Dose: 20 mg Fentanyl Citrate (Fentanyl Cit Inj 50 Mcg/Ml Amp 2ml) 100 mcg IVP X1 ONE Stop: 05/09/25 15:28 Last Admin: 05/09/25 15:48 Dose: 100 mcg Fentanyl Citrate (Fentanyl Cit Inj 50 Mcg/Ml Amp 2ml) 100 mcg IVP X1 ONE Stop: 05/10/25 15:11 Last Admin: 05/10/25 15:24 Dose: 100 mcg Fentanyl Citrate (Fentanyl Cit Inj 50 Mcg/Ml Amp 2ml) 100 mcg IVP X1 ONE Stop: 05/11/25 15:41 Last Admin: 05/11/25 15:46 Dose: 100 mcg Fentanyl Citrate (Fentanyl Cit Inj 50 Mcg/Ml Amp 2ml) 100 mcg IM X1 ONE Stop: 05/17/25 10:41 Last Admin: 05/17/25 11:56 Dose: Not Given Fentanyl Citrate (Fentanyl Cit Inj 50 Mcg/Ml Amp 2ml) 100 mcg IVP X1 ONE Stop: 05/17/25 11:46 Last Admin: 05/17/25 11:20 Dose: 100 mcg Ferrous Sulfate (Ferrous Sulf 325 Mg Tablet) 325 mg PO QOD KYA Stop: 07/01/25 04:59 Last Admin: 06/01/25 05:14 Dose: 325 mg Guaifenesin (Guaifenesin Syrup 200 Mg/10 Ml Udc) 200 mg GT QID PRN; Protocol PRN Reason: ET secretions Stop: 06/23/25 20:30 Last Admin: 05/24/25 20:54 Dose: 200 mg Haloperidol Lactate (Haloperidol Lact Inj 5 Mg/Ml Vial) 2 mg IM X1 ONE Stop: 05/08/25 13:15 Last Admin: 05/08/25 13:30 Dose: 2 mg Haloperidol Lactate (Haloperidol Lact Inj 5 Mg/Ml Vial) 2.5 mg IV X1 ONE Stop: 05/08/25 14:47 Last Admin: 05/08/25 15:01 Dose: 2.5 mg Haloperidol Lactate (Haloperidol Lact Inj 5 Mg/Ml Vial) 5 mg IV Q6HR PRN PRN Reason: AGITATION (SEVERE) Stop: 05/13/25 14:55 Last Admin: 05/09/25 07:20 Dose: 5 mg Haloperidol Lactate (Haloperidol Lact Inj 5 Mg/Ml Vial) 0.5 mg IV X1 ONE Stop: 05/09/25 13:29 Last Admin: 05/09/25 15:09 Dose: Not Given Heparin Sodium (Porcine) (Heparin Sod Inj 5000 Unit/Ml Vial) 5,000 unit SC Q8HR KYA Stop: 05/28/25 16:44 Heparin Sodium (Porcine) (Heparin Sod Inj 5000 Unit/Ml Vial) 6,400 unit 80 unit/kg (6400 unit) IV X1 ONE; Protocol Stop: 05/16/25 18:56 Last Admin: 05/16/25 21:24 Dose: 6,400 unit Heparin Sodium (Porcine) (Heparin Sod Inj 5000 Unit/Ml Vial) 6,376 unit IV PRN ONE Stop: 05/18/25 00:01 Last Admin: 05/18/25 00:26 Dose: 6,376 unit Heparin Sodium (Porcine) (Heparin Sod Inj 5000 Unit/Ml Vial) 5,000 unit SC Q8HR KYA Stop: 06/02/25 05:59 Last Admin: 05/23/25 05:25 Dose: 5,000 unit Hydrocortisone Sodium Succinate (Hydrocortisone Sod Succ Inj 100 Mg 2 Ml Vial) 100 mg IV X1 ONE Stop: 05/08/25 16:14 Last Admin: 05/08/25 16:32 Dose: 100 mg Hydromorphone HCl (Hydromorphone Inj 2 Mg/Ml Vial) 1 mg IVP X1 ONE Stop: 05/09/25 13:32 Last Admin: 05/09/25 13:36 Dose: 1 mg Hydromorphone HCl (Hydromorphone Inj 2 Mg/Ml Vial) 1 mg IVP Q4HR PRN PRN Reason: Breakthrough Pain Stop: 05/14/25 13:35 Hydromorphone HCl (Hydromorphone Inj 2 Mg/Ml Vial) 1 mg IVP X1 ONE Stop: 05/09/25 14:28 Last Admin: 05/09/25 14:47 Dose: 1 mg Sodium Chloride (Ns) 1,908 mls @ 1,908 mls/hr 30 ml/kg infuse over 60 min (1908 ml) IV .Q1H ONE; Protocol Stop: 05/08/25 01:55 Last Infusion: 05/08/25 04:00 Dose: Infused Ceftriaxone Sodium/Dextrose (Rocephin/D5w 1gm Iv Premix) 1 gm in 50 mls @ 100 mls/hr IV X1 ONE Stop: 05/08/25 01:40 Last Infusion: 05/08/25 02:29 Dose: Infused Lactated Ringer's (Lactated Ringers) 1,000 mls @ 999 mls/hr IV .Q1H1M ONE Stop: 05/08/25 05:21 Last Infusion: 05/08/25 06:22 Dose: Infused Piperacillin/Tazobactam/Dextrose (Zosyn) 3.375 gm in 50 mls @ 100 mls/hr IV X1 ONE; Protocol Stop: 05/08/25 05:06 Last Infusion: 05/08/25 05:37 Dose: Infused Ceftriaxone Sodium 2 gm/ (Sodium Chloride) 50 mls @ 100 mls/hr IV Q12HR KYA Stop: 05/15/25 11:19 Last Admin: 05/11/25 08:36 Dose: 100 mls/hr Acyclovir Sodium 640 mg/ (Sodium Chloride) 112.8 mls @ 98.947 mls/hr IV Q8HR KYA Stop: 05/15/25 15:59 Last Admin: 05/10/25 06:47 Dose: Not Given Ampicillin Sodium 2,000 mg/ (Sodium Chloride) 100 mls @ 100 mls/hr IV Q4HR KYA Stop: 05/15/25 11:21 Last Admin: 05/09/25 13:37 Dose: 100 mls/hr Lactated Ringer's (Lactated Ringers) 1,000 mls @ 100 mls/hr IV .Q10H KYA Stop: 06/07/25 11:23 Last Infusion: 05/10/25 01:03 Dose: Infused Lactated Ringer's (Lactated Ringers) 1,000 mls @ 999 mls/hr IV .Q1H1M ONE Stop: 05/08/25 12:23 Last Admin: 05/08/25 15:06 Dose: 999 mls/hr Acetaminophen (Ofirmev Inj) 1,000 mg in 100 mls @ 250 mls/hr IV Q6HR PRN PRN Reason: Fever > 100.4 Stop: 05/09/25 00:23 Last Admin: 05/08/25 15:16 Dose: 250 mls/hr Vancomycin/Sodium Chloride (Vancomycin/Ns 1 Gm Ivpb) 200 mls @ 120 mls/hr IV X1 ONE; Protocol Stop: 05/08/25 19:39 Last Admin: 05/08/25 17:36 Dose: 120 mls/hr Valproic Acid 187.5 mg/ Sodium (Chloride) 51.875 mls @ 51.875 mls/hr IV Q6HR KYA; Protocol Stop: 06/07/25 17:59 Last Admin: 05/09/25 12:31 Dose: 51.875 mls/hr Lactated Ringer's (Lactated Ringers) 1,000 mls @ 999 mls/hr IV .Q1H1M ONE Stop: 05/08/25 17:20 Last Admin: 05/08/25 17:33 Dose: 999 mls/hr Acetaminophen (Ofirmev Inj) 1,000 mg in 100 mls @ 250 mls/hr IV Q6HR PRN PRN Reason: Temp > 100 Stop: 05/10/25 00:23 Last Admin: 05/09/25 11:16 Dose: 250 mls/hr Magnesium Sulfate (Magnesium Sulfate Ivpb) 2 gm in 50 mls @ 25 mls/hr IV X1 ONE Stop: 05/09/25 09:48 Last Admin: 05/09/25 09:12 Dose: 25 mls/hr Vancomycin/Sodium Chloride (Vancomycin/Ns 1 Gm Ivpb) 200 mls @ 120 mls/hr IV Q8HR KYA; Protocol Stop: 05/16/25 08:14 Last Admin: 05/10/25 05:30 Dose: Not Given Propofol (Diprivan Ivpb) 1,000 mg in 100 mls @ 2.048 mls/hr IV .Q24H PRN; Protocol PRN Reason: PER PROTOCOL Stop: 06/08/25 15:41 Last Titration: 05/12/25 09:03 Dose: 0 mcg/kg/min, 0 mls/hr Fentanyl Citrate (Sublimaze Inj 2,500 Mcg/250 Ml Bag) 2,500 mcg in 250 mls @ 2.5 mls/hr IV .Q24H PRN; Protocol PRN Reason: PER PROTOCOL Stop: 05/14/25 16:01 Last Titration: 05/12/25 08:35 Dose: 0 mcg/hr, 0 mls/hr Valproic Acid 187.5 mg/ Sodium (Chloride) 51.875 mls @ 51.875 mls/hr IV Q6HR KYA; Protocol Stop: 06/07/25 17:59 Last Infusion: 05/27/25 13:47 Dose: Infused Midazolam HCl (Versed Pf Inj In Ns Premix) 100 mg in 100 mls @ 1 mls/hr IV .Q24H PRN; Protocol PRN Reason: PER PROTOCOL Stop: 05/14/25 18:42 Magnesium Sulfate (Magnesium Sulfate Ivpb) 4 gm in 50 mls @ 12.5 mls/hr IV X1 ONE Stop: 05/09/25 23:14 Last Infusion: 05/10/25 00:00 Dose: Infused Lactated Ringer's (Lactated Ringers) 500 mls @ 999 mls/hr IV .Q31M ONE Stop: 05/09/25 23:51 Last Admin: 05/10/25 00:06 Dose: Not Given Lactated Ringer's (Lactated Ringers) 1,000 mls @ 999 mls/hr IV .Q1H1M ONE Stop: 05/10/25 01:02 Last Infusion: 05/10/25 01:08 Dose: Infused Lactated Ringer's (Lactated Ringers) 1,000 mls @ 100 mls/hr IV .Q10H [facility] Stop: 06/09/25 00:50 Last Admin: 05/10/25 01:03 Dose: 100 mls/hr Acetaminophen (Ofirmev Inj) 1,000 mg in 100 mls @ 250 mls/hr IV Q6HR PRN PRN Reason: Temp > 99.9 Stop: 05/10/25 18:23 Last Admin: 05/10/25 01:35 Dose: 250 mls/hr Lactated Ringer's (Lactated Ringers) 1,000 mls @ 150 mls/hr IV .Q6H40M [facility] Stop: 06/09/25 02:23 Last Admin: 05/10/25 08:30 Dose: 150 mls/hr Lactated Ringer's (Lactated Ringers) 500 mls @ 999 mls/hr IV .Q31M ONE Stop: 05/10/25 02:55 Last Admin: 05/10/25 03:42 Dose: 999 mls/hr Potassium Chloride (Kcl Ivpb) 10 meq in 100 mls @ 100 mls/hr IV Q1H [facility] Stop: 05/10/25 10:17 Last Admin: 05/10/25 10:50 Dose: 100 mls/hr Acyclovir Sodium 640 mg/ (Sodium Chloride) 112.8 mls @ 98.947 mls/hr IV Q8HR [facility] Stop: 05/15/25 06:44 Last Admin: 05/10/25 21:46 Dose: 98.947 mls/hr Vancomycin HCl/Dextrose (Vancomycin/D5w 1,250 Mg Ivpb) 250 mls @ 120 mls/hr IV Q12H [facility]YA; Protocol Stop: 05/17/25 09:59 Last Admin: 05/11/25 09:08 Dose: 120 mls/hr Acetaminophen (Ofirmev Inj) 1,000 mg in 100 mls @ 250 mls/hr IV Q6HR PRN PRN Reason: temp >99.9 Stop: 05/13/25 19:34 Last Admin: 05/12/25 20:52 Dose: 250 mls/hr Doxycycline Hyclate 100 mg/ (Sodium Chloride) 100 mls @ 100 mls/hr IV BID KYA Stop: 05/18/25 11:44 Last Admin: 05/11/25 14:25 Dose: Not Given Levofloxacin/Dextrose (Levaquin Ivpb) 750 mg in 150 mls @ 100 mls/hr IV QDAY [facility] Stop: 05/18/25 11:59 Last Infusion: 05/12/25 09:41 Dose: Infused Midazolam HCl (Versed Pf Inj In Ns Premix) 100 mg in 100 mls @ 1 mls/hr IV .Q24H PRN; Protocol PRN Reason: PER PROTOCOL Stop: 05/16/25 17:24 Last Titration: 05/15/25 17:00 Dose: 0 mg/hr, 0 mls/hr Magnesium Sulfate (Magnesium Sulfate Ivpb) 2 gm in 50 mls @ 25 mls/hr IV X1 ONE Stop: 05/12/25 08:45 Last Infusion: 05/12/25 10:11 Dose: Infused Dexmedetomidine/Sodium Chloride (Precedex Ivpb) 400 mcg in 100 mls @ 3.505 mls/hr IV .Q24H PRN; Protocol PRN Reason: Per PROTOCOL Stop: 06/11/25 08:40 Last Titration: 05/13/25 04:28 Dose: 0 mcg/kg/hr, 0 mls/hr Dexamethasone Sodium Phosphate (4 mg/ Sodium Chloride) 100.4 mls @ 100.4 mls/hr IV X1 ONE Stop: 05/12/25 09:44 Last Admin: 05/12/25 10:16 Dose: Not Given Meropenem 1,000 mg/ Sodium (Chloride) 50 mls @ 100 mls/hr IV Q8HR [facility] Stop: 05/19/25 13:59 Last Infusion: 05/18/25 19:00 Dose: Infused Levofloxacin/Dextrose (Levaquin Ivpb) 750 mg in 150 mls @ 100 mls/hr IV QDAY KYA Stop: 05/18/25 08:59 Last Infusion: 05/13/25 09:52 Dose: Infused Lactated Ringer's (Lactated Ringers) 500 mls @ 999 mls/hr IV .Q31M ONE Stop: 05/12/25 19:14 Last Infusion: 05/13/25 06:45 Dose: Infused Propofol (Diprivan Ivpb) 1,000 mg in 100 mls @ 2.103 mls/hr IV .Q24H PRN; Protocol PRN Reason: PER PROTOCOL Stop: 06/12/25 04:15 Last Titration: 05/28/25 10:58 Dose: 0 mcg/kg/min, 0 mls/hr Fentanyl Citrate (Sublimaze Inj 2,500 Mcg/250 Ml Bag) 2,500 mcg in 250 mls @ 2.5 mls/hr IV .Q24H PRN; Protocol PRN Reason: PER PROTOCOL Stop: 05/18/25 04:16 Last Titration: 05/18/25 07:00 Dose: 300 mcg/hr, 30 mls/hr Magnesium Sulfate (Magnesium Sulfate Ivpb) 2 gm in 50 mls @ 25 mls/hr IV X1 ONE Stop: 05/14/25 11:58 Last Admin: 05/14/25 11:45 Dose: 25 mls/hr Acetaminophen (Ofirmev Inj) 1,000 mg in 100 mls @ 250 mls/hr IV Q6HR [facility] Stop: 05/15/25 12:23 Last Admin: 05/15/25 00:08 Dose: Not Given Acetaminophen (Ofirmev Inj) 1,000 mg in 100 mls @ 250 mls/hr IV Q6HR PRN PRN Reason: TEMP >99.9 Stop: 05/15/25 18:23 Acetaminophen (Ofirmev Inj) 1,000 mg in 100 mls @ 250 mls/hr IV Q6HR PRN PRN Reason: TEMP >101.0 Stop: 05/15/25 18:23 Acetaminophen (Ofirmev Inj) 1,000 mg in 100 mls @ 250 mls/hr IV X1 ONE Stop: 05/15/25 22:47 Last Admin: 05/15/25 22:54 Dose: 250 mls/hr Doxycycline Hyclate 100 mg/ (Sodium Chloride) 100 mls @ 100 mls/hr IV BID [facility] Stop: 05/18/25 23:55 Last Infusion: 05/18/25 10:25 Dose: Infused Magnesium Sulfate (Magnesium Sulfate Ivpb) 2 gm in 50 mls @ 25 mls/hr IV X1 ONE Stop: 05/16/25 08:02 Last Admin: 05/16/25 07:38 Dose: Not Given Acetaminophen (Ofirmev Inj) 1,000 mg in 100 mls @ 250 mls/hr IV X1 ONE Stop: 05/16/25 06:29 Last Admin: 05/16/25 07:38 Dose: Not Given Magnesium Sulfate (Magnesium Sulfate Ivpb) 2 gm in 50 mls @ 200 mls/hr IV X1 ONE Stop: 05/16/25 06:17 Last Infusion: 05/16/25 06:37 Dose: Infused Heparin Sodium/Dextrose (Heparin In D5w Ivpb) 25,000 unit in 250 mls @ 14.346 mls/hr IV .[id number] [facility]; Protocol Stop: 05/30/25 18:59 Last Titration: 05/18/25 09:00 Dose: 0 units/kg/hr, 0 mls/hr Magnesium Sulfate (Magnesium Sulfate Ivpb) 4 gm in 50 mls @ 12.5 mls/hr IV X1 ONE Stop: 05/17/25 11:03 Last Admin: 05/17/25 10:43 Dose: 12.5 mls/hr Lactated Ringer's (Lactated Ringers) 1,000 mls @ 999 mls/hr IV .Q1H1M ONE Stop: 05/17/25 11:21 Last Admin: 05/17/25 10:42 Dose: 999 mls/hr Magnesium Sulfate (Magnesium Sulfate Ivpb) 4 gm in 50 mls @ 12.5 mls/hr IV X1 ONE Stop: 05/18/25 08:58 Last Infusion: 05/18/25 19:00 Dose: Infused Lactated Ringer's (Lactated Ringers) 500 mls @ 999 mls/hr IV .Q31M ONE Stop: 05/18/25 05:30 Last Admin: 05/18/25 07:36 Dose: Not Given Fentanyl Citrate (Sublimaze Inj 2,500 Mcg/250 Ml Bag) 2,500 mcg in 250 mls @ 2.5 mls/hr IV .Q24H PRN; Protocol PRN Reason: PER PROTOCOL Stop: 05/23/25 07:24 Last Titration: 05/23/25 15:00 Dose: 175 mcg/hr, 17.5 mls/hr Lactated Ringer's (Lactated Ringers) 1,000 mls @ 100 mls/hr IV .Q10H [facility] Stop: 06/17/25 10:06 Last Admin: 05/19/25 06:46 Dose: Not Given Midazolam HCl (Versed Pf Inj In Ns Premix) 100 mg in 100 mls @ 4 mls/hr IV .Q24H PRN; Protocol PRN Reason: PER PROTOCOL Stop: 05/23/25 10:32 Last Titration: 05/19/25 16:00 Dose: 0 mg/hr, 0 mls/hr Magnesium Sulfate (Magnesium Sulfate Ivpb) 4 gm in 50 mls @ 12.5 mls/hr IV X1 ONE Stop: 05/19/25 11:04 Last Admin: 05/19/25 09:27 Dose: 12.5 mls/hr Meropenem 1,000 mg/ Sodium (Chloride) 50 mls @ 100 mls/hr IV Q8HR [facility] Stop: 05/22/25 13:59 Last Infusion: 05/22/25 06:04 Dose: Infused Magnesium Sulfate (Magnesium Sulfate Ivpb) 4 gm in 50 mls @ 12.5 mls/hr IV X1 ONE Stop: 05/20/25 15:48 Last Admin: 05/20/25 12:35 Dose: 12.5 mls/hr Acetaminophen (Ofirmev Inj) 1,000 mg in 100 mls @ 250 mls/hr IV X1 ONE Stop: 05/20/25 21:09 Last Infusion: 05/20/25 21:46 Dose: Infused Acetaminophen (Ofirmev Inj) 1,000 mg in 100 mls @ 250 mls/hr IV X1 ONE Stop: 05/21/25 05:11 Last Infusion: 05/21/25 06:05 Dose: Infused Magnesium Sulfate (Magnesium Sulfate Ivpb) 2 gm in 50 mls @ 25 mls/hr IV X1 ONE Stop: 05/21/25 15:31 Last Admin: 05/21/25 15:22 Dose: 25 mls/hr Dextrose/Lactated Ringer's (D5-Lr) 1,000 mls @ 70 mls/hr IV .[id number] [facility] Stop: 06/21/25 09:14 Magnesium Sulfate (Magnesium Sulfate Ivpb) 4 gm in 50 mls @ 12.5 mls/hr IV X1 ONE Stop: 05/22/25 20:25 Last Infusion: 05/22/25 20:47 Dose: Infused Fentanyl Citrate (Sublimaze Inj 2,500 Mcg/250 Ml Bag) 2,500 mcg in 250 mls @ 2.5 mls/hr IV .Q24H PRN; Protocol PRN Reason: PER PROTOCOL Stop: 05/28/25 11:34 Fentanyl Citrate (Sublimaze Inj 2,500 Mcg/250 Ml Bag) 2,500 mcg in 250 mls @ 2.5 mls/hr IV .Q24H PRN; Protocol PRN Reason: PER PROTOCOL Stop: 05/28/25 08:44 Last Titration: 05/28/25 10:45 Dose: 0 mcg/hr, 0 mls/hr Magnesium Sulfate (Magnesium Sulfate Ivpb) 4 gm in 50 mls @ 12.5 mls/hr IV X1 ONE Stop: 05/23/25 20:37 Last Admin: 05/23/25 17:25 Dose: 12.5 mls/hr Meropenem 1,000 mg/ Sodium (Chloride) 50 mls @ 100 mls/hr IV Q8HR [facility] Stop: 05/31/25 13:59 Last Infusion: 05/25/25 14:33 Dose: Infused Fluconazole (Diflucan/Ns Ivpb) 400 mg in 200 mls @ 100 mls/hr IV QDAY [facility] Stop: 06/01/25 11:10 Last Admin: 05/25/25 13:50 Dose: Not Given Magnesium Sulfate (Magnesium Sulfate Ivpb) 4 gm in 50 mls @ 12.5 mls/hr IV X1 ONE Stop: 05/27/25 11:30 Last Admin: 05/27/25 08:17 Dose: 12.5 mls/hr Fentanyl Citrate (Sublimaze Inj 2,500 Mcg/250 Ml Bag) 2,500 mcg in 250 mls @ 2.5 mls/hr IV .Q24H PRN; Protocol PRN Reason: PER PROTOCOL Stop: 06/02/25 08:52 Micafungin Sodium 100 mg/ (Sodium Chloride) 100 mls @ 100 mls/hr IV QDAY KYA; Protocol Stop: 06/12/25 10:31 Last Admin: 05/28/25 11:07 Dose: Not Given Midazolam HCl (Versed Pf Inj In Ns Premix) 100 mg in 100 mls @ 1 mls/hr IV .Q24H PRN; Protocol PRN Reason: PER PROTOCOL Stop: 06/02/25 10:43 Last Titration: 05/30/25 07:21 Dose: 0 mg/hr, 0 mls/hr Micafungin Sodium 100 mg/ (Sodium Chloride) 100 mls @ 100 mls/hr IV QDAY [facility]YA Stop: 06/12/25 12:03 Last Admin: 05/30/25 09:42 Dose: 100 mls/hr Magnesium Sulfate (Magnesium Sulfate Ivpb) 2 gm in 50 mls @ 25 mls/hr IV X1 ONE Stop: 05/29/25 13:21 Last Admin: 05/29/25 11:51 Dose: 25 mls/hr Magnesium Sulfate (Magnesium Sulfate Ivpb) 2 gm in 50 mls @ 25 mls/hr IV X1 ONE Stop: 05/30/25 08:46 Last Admin: 05/30/25 07:46 Dose: 25 mls/hr Magnesium Sulfate (Magnesium Sulfate Ivpb) 2 gm in 50 mls @ 25 mls/hr IV X1 ONE Stop: 05/31/25 08:30 Last Admin: 05/31/25 09:23 Dose: 25 mls/hr Sodium Chloride (Ns) 500 mls @ 999 mls/hr IV .Q31M ONE Stop: 05/31/25 14:16 Last Admin: 05/31/25 14:14 Dose: 999 mls/hr Magnesium Sulfate (Magnesium Sulfate Ivpb) 4 gm in 50 mls @ 12.5 mls/hr IV X1 ONE Stop: 06/01/25 07:48 Last Admin: 06/01/25 03:56 Dose: 12.5 mls/hr Lactated Ringer's (Lactated Ringers) 500 mls @ 999 mls/hr IV .Q31M ONE Stop: 06/01/25 04:26 Last Admin: 06/01/25 04:04 Dose: 999 mls/hr Lactated Ringer's (Lactated Ringers) 1,000 mls @ 999 mls/hr IV .Q1H1M ONE Stop: 06/01/25 10:58 Last Admin: 06/01/25 10:59 Dose: 999 mls/hr Micafungin Sodium 100 mg/ (Sodium Chloride) 100 mls @ 100 mls/hr IV QDAY [facility] Stop: 06/16/25 13:29 Last Admin: 06/03/25 08:39 Dose: 100 mls/hr Acetaminophen (Ofirmev Inj) 1,000 mg in 100 mls @ 250 mls/hr IV X1 ONE Stop: 06/02/25 15:09 Last Infusion: 06/02/25 19:07 Dose: Infused Magnesium Sulfate (Magnesium Sulfate Ivpb) 2 gm in 50 mls @ 25 mls/hr IV X1 ONE Stop: 06/04/25 09:16 Last Admin: 06/04/25 07:43 Dose: 25 mls/hr Acetaminophen (Ofirmev Inj) 1,000 mg in 100 mls @ 250 mls/hr IV X1 ONE Stop: 06/04/25 17:15 Last Admin: 06/04/25 17:17 Dose: 250 mls/hr Acetaminophen (Ofirmev Inj) 1,000 mg in 100 mls @ 250 mls/hr IV Q6HR [facility] Stop: 06/05/25 18:23 Last Admin: 06/05/25 05:05 Dose: 250 mls/hr Sodium Chloride (Ns) 250 mls @ 999 mls/hr IV .Q16M ONE Stop: 06/05/25 02:25 Last Admin: 06/05/25 02:20 Dose: 999 mls/hr Lactated Ringer's (Lactated Ringers) 500 mls @ 999 mls/hr IV .Q31M ONE Stop: 06/05/25 10:26 Last Admin: 06/05/25 10:34 Dose: 999 mls/hr Lactated Ringer's (Lactated Ringers) 500 mls @ 999 mls/hr IV .Q31M ONE Stop: 06/05/25 14:07 Last Admin: 06/05/25 13:43 Dose: 999 mls/hr Acetaminophen (Ofirmev Inj) 1,000 mg in 100 mls @ 250 mls/hr IV X1 ONE Stop: 06/05/25 16:05 Last Admin: 06/05/25 16:00 Dose: 250 mls/hr Ibuprofen (Ibuprofen Susp 100 Mg/5 Ml Udc) 100 mg PO X1 ONE Stop: 05/16/25 06:13 Last Admin: 05/16/25 06:22 Dose: 100 mg Ibuprofen (Ibuprofen Susp 100 Mg/5 Ml Udc) 100 mg GT NOW ONE Stop: 05/18/25 01:21 Last Admin: 05/18/25 01:33 Dose: 100 mg Ibuprofen (Ibuprofen Susp 100 Mg/5 Ml Udc) 100 mg GT X1 ONE Stop: 05/22/25 05:56 Last Admin: 05/22/25 06:08 Dose: 100 mg Ibuprofen (Ibuprofen Susp 100 Mg/5 Ml Udc) 100 mg GT X1 ONE Stop: 05/24/25 22:09 Last Admin: 05/24/25 22:26 Dose: 100 mg Ibuprofen (Ibuprofen Susp 100 Mg/5 Ml Udc) 100 mg GT X1 ONE Stop: 05/26/25 21:34 Last Admin: 05/26/25 21:43 Dose: 100 mg Ibuprofen (Ibuprofen Susp 100 Mg/5 Ml Udc) 100 mg GT X1 ONE Stop: 05/27/25 03:16 Last Admin: 05/27/25 03:25 Dose: 100 mg Ibuprofen (Ibuprofen Susp 100 Mg/5 Ml Udc) 100 mg PO X1 ONE Stop: 05/27/25 11:00 Last Admin: 05/27/25 11:22 Dose: 100 mg Ipratropium [place] (Ipratropium Rt 0.5 Mg/ 2.5 Ml Nebu) 0.5 mg INH Q6HR KYA Stop: 06/11/25 11:59 Last Admin: 05/20/25 18:32 Dose: Not Given Ipratropium [place] (Ipratropium Rt 0.5 Mg/ 2.5 Ml Nebu) 0.5 mg INH Q6HR PRN PRN Reason: SHORTNESS OF BREATH Stop: 06/11/25 11:59 Ketamine HCl (Ketamine 50 Mg/Ml Vial 10 Ml) 100 mg IVP X1 ONE Stop: 05/09/25 15:40 Last Admin: 05/09/25 16:55 Dose: Not Given Levetiracetam (Levetiracetam Liqd 500 Mg/5 Ml Udc) 800 mg GT BID KYA Stop: 06/07/25 10:29 Last Admin: 05/08/25 13:47 Dose: 800 mg Levetiracetam (Levetiracetam Liqd 500 Mg/5 Ml Udc) 800 mg GT X1 ONE Stop: 05/08/25 15:40 Last Admin: 05/08/25 17:48 Dose: 800 mg Levetiracetam (Levetiracetam Inj 100 Mg/Ml Vial 5ml) 800 mg IV BID KYA Stop: 06/07/25 20:59 Last Admin: 05/20/25 09:20 Dose: 800 mg Levetiracetam (Levetiracetam Inj 100 Mg/Ml Vial 5ml) 1,000 mg IV BID KYA Stop: 06/07/25 17:29 Levetiracetam (Levetiracetam Inj 100 Mg/Ml Vial 5ml) 1,000 mg IV BID KYA Stop: 06/19/25 20:59 Last Admin: 05/27/25 08:17 Dose: 1,000 mg Levetiracetam (Levetiracetam Liqd 500 Mg/5 Ml Udc) 1,000 mg GT BID KYA Stop: 06/26/25 20:59 Last Admin: 05/29/25 21:49 Dose: 1,000 mg Lidocaine HCl (Lidocaine Jelly 2% (Urojet) 10 Ml Tube) 0 ml TOP X1 ONE Stop: 05/10/25 15:11 Last Admin: 05/10/25 15:24 Dose: 10 ml Lidocaine HCl (Lidocaine Hcl 1% 20 Ml Vial) 10 ml INFL X1 ONE Stop: 05/14/25 14:11 Last Admin: 05/14/25 14:37 Dose: Not Given Lidocaine HCl (Lidocaine Hcl 1% 20 Ml Vial) 12 ml INFL X1 ONE Stop: 05/14/25 14:37 Last Admin: 05/14/25 14:27 Dose: 12 ml Lidocaine HCl (Lidocaine Hcl 1% 20 Ml Vial) 20 ml IM X1 ONE Stop: 05/17/25 11:42 Last Admin: 05/17/25 11:25 Dose: 20 ml Lorazepam (Lorazepam 2 Mg/Ml Vial) 2 mg IVP X1 ONE Stop: 05/08/25 14:45 Last Admin: 05/08/25 17:37 Dose: Not Given Magnesium Oxide (Magnesium Oxide 400 Mg Tablet) 400 mg PO TID KYA Stop: 06/05/25 22:01 Midazolam HCl (Midazolam Inj 1 Mg/Ml Vial 2 Ml) 2 mg IVP X1 ONE Stop: 05/08/25 01:35 Last Admin: 05/08/25 01:46 Dose: 2 mg Midazolam HCl (Midazolam Inj 1 Mg/Ml Vial 2 Ml) 2 mg IVP X1 PRN PRN Reason: Seizure > 3 mins Midazolam HCl (Midazolam Inj 1 Mg/Ml Vial 2 Ml) 2 mg IM X1 ONE Stop: 05/08/25 11:53 Last Admin: 05/08/25 12:38 Dose: 2 mg Midazolam HCl (Midazolam Inj 1 Mg/Ml Vial 2 Ml) 2 mg IVP X1 ONE Stop: 05/08/25 14:55 Last Admin: 05/08/25 15:03 Dose: 2 mg Midazolam HCl (Midazolam Inj 1 Mg/Ml Vial 2 Ml) 2 mg IVP X1 ONE Stop: 05/08/25 15:31 Last Admin: 05/08/25 16:25 Dose: 2 mg Midazolam HCl (Midazolam Inj 1 Mg/Ml Vial 2 Ml) 5 mg IVP X1 ONE Stop: 05/08/25 16:20 Last Admin: 05/08/25 17:26 Dose: Not Given Midazolam HCl (Midazolam Inj 1 Mg/Ml Vial 2 Ml) 2 mg IVP X1 ONE Stop: 05/08/25 16:01 Last Admin: 05/08/25 16:00 Dose: 2 mg Midazolam HCl (Midazolam Inj 1 Mg/Ml Vial 2 Ml) 2 mg IVP X1 PRN PRN Reason: AGITATION (SEVERE) Last Admin: 05/09/25 01:37 Dose: 2 mg Midazolam HCl (Midazolam Inj 1 Mg/Ml Vial 2 Ml) 2 mg IVP X1 ONE Stop: 05/08/25 20:10 Last Admin: 05/08/25 20:26 Dose: 2 mg Midazolam HCl (Midazolam Inj 1 Mg/Ml Vial 2 Ml) 2 mg IVP X1 ONE Stop: 05/09/25 05:31 Last Admin: 05/09/25 05:42 Dose: 2 mg Midazolam HCl (Midazolam Inj 1 Mg/Ml Vial 2 Ml) 6 mg IVP X1 ONE Stop: 05/09/25 15:28 Last Admin: 05/09/25 15:50 Dose: 6 mg Midazolam HCl (Midazolam Inj 1 Mg/Ml Vial 2 Ml) 4 mg IVP X1 ONE Stop: 05/11/25 16:14 Last Admin: 05/11/25 16:20 Dose: 4 mg Midazolam HCl (Midazolam Inj 1 Mg/Ml Vial 2 Ml) 4 mg IVP X1 ONE Stop: 05/11/25 17:26 Last Admin: 05/11/25 17:28 Dose: 4 mg Midazolam HCl (Midazolam Inj 1 Mg/Ml Vial 2 Ml) 4 mg IVP X1 ONE Stop: 05/13/25 10:17 Last Admin: 05/13/25 10:12 Dose: 4 mg Midazolam HCl (Midazolam Inj 1 Mg/Ml Vial 2 Ml) 4 mg IVP X1 ONE Stop: 05/13/25 12:12 Last Admin: 05/13/25 12:12 Dose: 4 mg Midazolam HCl (Midazolam Inj 1 Mg/Ml Vial 2 Ml) 2 mg IVP X1 ONE Stop: 05/16/25 02:02 Last Admin: 05/16/25 02:11 Dose: 2 mg Midazolam HCl (Midazolam Inj 1 Mg/Ml Vial 2 Ml) 4 mg IVP X1 ONE Stop: 05/16/25 09:59 Last Admin: 05/16/25 10:51 Dose: 4 mg Midazolam HCl (Midazolam Inj 1 Mg/Ml Vial 2 Ml) 4 mg IVP X1 ONE Stop: 05/17/25 00:52 Last Admin: 05/17/25 01:05 Dose: 4 mg Midazolam HCl (Midazolam Inj 1 Mg/Ml Vial 2 Ml) 4 mg IVP X1 ONE Stop: 05/17/25 10:41 Last Admin: 05/17/25 11:20 Dose: 4 mg Midazolam HCl (Midazolam Inj 1 Mg/Ml Vial 2 Ml) 2 mg IVP X1 ONE Stop: 05/18/25 05:38 Last Admin: 05/18/25 05:49 Dose: 2 mg Midazolam HCl (Midazolam Inj 1 Mg/Ml Vial 2 Ml) 4 mg IVP X1 ONE Stop: 05/18/25 10:11 Last Admin: 05/18/25 10:37 Dose: 4 mg Midazolam HCl (Midazolam Inj 1 Mg/Ml Vial 2 Ml) 2 mg IVP Q6HR PRN PRN Reason: seizures or agitation Stop: 05/26/25 09:47 Last Admin: 05/22/25 02:37 Dose: 2 mg Midazolam HCl (Midazolam Inj 1 Mg/Ml Vial 2 Ml) 2 mg IVP X1 ONE Stop: 05/22/25 06:50 Last Admin: 05/22/25 06:56 Dose: 2 mg Midazolam HCl (Midazolam Inj 1 Mg/Ml Vial 2 Ml) 4 mg IVP X1 ONE Stop: 05/22/25 08:44 Last Admin: 05/22/25 08:45 Dose: 4 mg Midazolam HCl (Midazolam Inj 1 Mg/Ml Vial 2 Ml) 2 mg IVP Q5MIN PRN PRN Reason: seizures or agitation Stop: 05/26/25 09:47 Midazolam HCl (Midazolam Inj 1 Mg/Ml Vial 2 Ml) 2 mg IVP Q5MIN PRN PRN Reason: seizures or agitation Stop: 05/26/25 09:47 Midazolam HCl (Midazolam Inj 1 Mg/Ml Vial 2 Ml) 4 mg IVP Q5MIN PRN PRN Reason: seizures or agitation Stop: 05/26/25 09:47 Last Admin: 05/23/25 12:06 Dose: 4 mg Midazolam HCl (Midazolam Inj 1 Mg/Ml Vial 2 Ml) 2 mg IVP X1 ONE Stop: 05/22/25 17:57 Midazolam HCl (Midazolam Inj 1 Mg/Ml Vial 2 Ml) 2 mg IVP X1 ONE Stop: 05/22/25 18:22 Last Admin: 05/22/25 17:45 Dose: 2 mg Midazolam HCl (Midazolam Inj 1 Mg/Ml Vial 2 Ml) 1 mg IVP Q3HR PRN PRN Reason: AGITATION OR ANXIETY Stop: 06/04/25 18:48 Last Admin: 06/02/25 20:05 Dose: 1 mg Midazolam HCl (Midazolam Inj 1 Mg/Ml Vial 2 Ml) 1 mg IVP X1 ONE Stop: 06/01/25 03:58 Last Admin: 06/01/25 04:09 Dose: 1 mg Midazolam HCl (Midazolam Inj 1 Mg/Ml Vial 2 Ml) 2 mg IVP X1 ONE Stop: 06/05/25 10:24 Last Admin: 06/05/25 10:34 Dose: 2 mg Midazolam HCl (Midazolam Inj 1 Mg/Ml Vial 2 Ml) 2 mg IM X1 ONE Stop: 06/05/25 13:21 Midazolam HCl (Midazolam Inj 1 Mg/Ml Vial 2 Ml) 2 mg IVP X1 ONE Stop: 06/05/25 13:22 Last Admin: 06/05/25 13:23 Dose: 2 mg Midazolam HCl (Midazolam Inj 1 Mg/Ml Vial 2 Ml) 2 mg IVP X1 ONE Stop: 06/05/25 13:38 Last Admin: 06/05/25 13:42 Dose: 2 mg Midazolam HCl (Midazolam Inj 1 Mg/Ml Vial 2 Ml) 2 mg IVP X1 ONE Stop: 06/05/25 16:36 Last Admin: 06/05/25 16:48 Dose: 2 mg Morphine Sulfate (Morphine Sulf Inj 4 Mg/Ml Vial) 2 mg IVP Q6HR PRN PRN Reason: PAIN SCALE 4-10(Mod-Sev Stop: 05/14/25 08:33 Last Admin: 05/09/25 09:30 Dose: 2 mg Morphine Sulfate (Morphine Sulf Inj 4 Mg/Ml Vial) 2 mg IVP X1 ONE Stop: 06/05/25 13:29 Last Admin: 06/05/25 13:33 Dose: 2 mg Morphine Sulfate (Morphine Sulf Inj 4 Mg/Ml Vial) 2 mg IVP X1 ONE Stop: 06/05/25 16:37 Last Admin: 06/05/25 16:47 Dose: 2 mg Clotrimazole 1% (Topical Solution) 4 drop LEFT EAR BID KYA Stop: 07/04/25 11:59 Last Admin: 06/04/25 12:04 Dose: 4 drop Clotrimazole 1% (Topical Solution) 4 drop BOTH EARS BID KYA Stop: 07/04/25 12:29 Last Admin: 06/04/25 15:21 Dose: 4 drop Non-Formulary Medication (Clotrimazole Ear Drops) 4 drop BOTH EARS BID KYA Stop: 07/04/25 12:29 Ofloxacin (Ofloxacin Op Racquel 0.3% 5 Ml Btl) 5 drop BOTH EARS BID KYA Stop: 05/18/25 10:14 Last Admin: 05/18/25 09:24 Dose: 5 drops Ofloxacin (Ofloxacin Op Racquel 0.3% 5 Ml Btl) 5 drop BOTH EARS BID KYA Stop: 06/20/25 14:44 Ofloxacin (Ofloxacin Op Racquel 0.3% 5 Ml Btl) 5 drop BOTH EARS BID KYA Stop: 05/31/25 14:44 Last Admin: 05/31/25 10:09 Dose: 5 drops Olanzapine (Olanzapine 5 Mg Tablet) 5 mg PO QDAY KYA Stop: 06/12/25 14:14 Last Admin: 05/15/25 08:56 Dose: 5 mg Olanzapine (Olanzapine 5 Mg Tablet) 5 mg PO QPM KYA Stop: 06/14/25 20:59 Last Admin: 05/15/25 20:50 Dose: 5 mg Olanzapine (Olanzapine 5 Mg Tablet) 5 mg PO BID KYA Stop: 06/15/25 08:59 Last Admin: 05/16/25 09:17 Dose: Not Given Olanzapine (Olanzapine 5 Mg Tablet) 5 mg GT TID KYA Stop: 06/15/25 13:59 Last Admin: 05/18/25 05:49 Dose: 5 mg Olanzapine (Olanzapine 5 Mg Tablet) 5 mg GT X1 ONE Stop: 05/16/25 09:18 Last Admin: 05/16/25 09:55 Dose: 5 mg Ondansetron HCl (Ondansetron Inj 2 Mg/Ml Inj 2 Ml) 4 mg IVP Q6HR PRN; Protocol PRN Reason: NAUSEA OR VOMITING Stop: 06/07/25 11:35 Oxycodone HCl (Oxycodone Hcl 5 Mg Ir Tab) 10 mg GT TID [facility] Stop: 05/22/25 13:59 Last Admin: 05/21/25 14:57 Dose: Not Given Oxycodone HCl (Oxycodone Hcl 5 Mg Ir Tab) 10 mg GT X1 ONE Stop: 05/17/25 10:35 Last Admin: 05/17/25 10:44 Dose: 10 mg Oxycodone HCl (Oxycodone Hcl 5 Mg Ir Tab) 10 mg PO TID [facility] Stop: 05/29/25 09:59 Last Admin: 05/24/25 10:22 Dose: 10 mg Oxycodone HCl (Oxycodone Hcl 5 Mg Ir Tab) 10 mg PO TID [facility] Stop: 05/29/25 09:59 Last Admin: 05/26/25 05:53 Dose: 10 mg Oxycodone HCl (Oxycodone Hcl 5 Mg Ir Tab) 15 mg PO TID [facility] Stop: 05/31/25 13:59 Last Admin: 05/28/25 05:09 Dose: 15 mg Oxycodone HCl (Oxycodone Hcl 5 Mg Ir Tab) 30 mg PO TID [facility] Stop: 06/02/25 13:59 Last Admin: 05/31/25 05:34 Dose: 30 mg Oxycodone HCl (Oxycodone Hcl 5 Mg Ir Tab) 15 mg PO TID [facility] Stop: 06/05/25 13:59 Last Admin: 06/03/25 05:18 Dose: 15 mg Oxycodone HCl (Oxycodone Hcl 5 Mg Ir Tab) 5 mg GT X1 ONE Stop: 06/05/25 02:10 Last Admin: 06/05/25 02:19 Dose: 5 mg Oxycodone HCl (Oxycodone Hcl 5 Mg Ir Tab) 10 mg PO X1 ONE Stop: 06/05/25 15:57 Last Admin: 06/05/25 16:01 Dose: 10 mg Oxycodone/Acetaminophen (Oxycodone/Apap 5/325 Tablet) 1 tab PO TID KYA Stop: 05/22/25 13:59 Oxycodone/Acetaminophen (Oxycodone/Apap 5/325 Tablet) 1 tab GT TID [facility] Stop: 05/22/25 13:59 Pantoprazole Sodium (Pantoprazole Inj 40 Mg Vial) 40 mg IVP QDAY [facility] Stop: 06/11/25 11:24 Last Admin: 05/23/25 09:56 Dose: 40 mg Pantoprazole Sodium (Pantoprazole Inj 40 Mg Vial) 40 mg IVP QDAY [facility] Stop: 06/23/25 08:59 Last Admin: 05/27/25 08:17 Dose: 40 mg Pantoprazole Sodium (Pantoprazole 40 Mg Tablet) 40 mg PO QDAY [facility] Stop: 06/26/25 14:44 Last Admin: 05/27/25 15:36 Dose: Not Given Pharmacy Consult (Vancomycin Pharmacy To Dose 1 Each Each) 1 each IV QDAY PRN PRN Reason: CONSULT Stop: 06/07/25 11:29 Pharmacy Consult (Pharmacy To Consult Patient) 1 each XX PRN PRN PRN Reason: CONSULT Stop: 06/07/25 16:11 Phenobarbital (Phenobarbital 32.4 Mg Tablet) 259.2 mg GT Q6HR [facility] Stop: 06/06/25 11:29 Last Admin: 05/28/25 11:07 Dose: Not Given Phenobarbital (Phenobarbital 32.4 Mg Tablet) 259.2 mg GT Q6HR [facility] Stop: 06/11/25 07:14 Last Admin: 05/30/25 15:08 Dose: Not Given Phenobarbital (Phenobarbital 32.4 Mg Tablet) 129.6 mg GT Q8HR [facility] Stop: 06/13/25 14:44 Last Admin: 05/31/25 05:35 Dose: 129.6 mg Phenobarbital (Phenobarbital 32.4 Mg Tablet) 64.8 mg GT Q8HR [facility] Stop: 06/14/25 13:59 Last Admin: 06/02/25 05:05 Dose: 64.8 mg Phenobarbital (Phenobarbital 32.4 Mg Tablet) 64.8 mg GT Q12HR [facility]YA Stop: 06/16/25 20:59 Last Admin: 06/04/25 09:02 Dose: 64.8 mg Phenobarbital (Phenobarbital 32.4 Mg Tablet) 32.4 mg GT X1 ONE Stop: 06/05/25 13:25 Last Admin: 06/05/25 13:32 Dose: 32.4 mg Phenobarbital Sodium (Phenobarbital Inj 130 Mg/1 Ml Vial) 130 mg IVP TID KYA Stop: 05/31/25 13:59 Last Admin: 05/17/25 22:16 Dose: 130 mg Phenobarbital Sodium (Phenobarbital Inj 130 Mg/1 Ml Vial) 130 mg IVP Q6H [facility] Stop: 06/01/25 05:44 Last Admin: 05/18/25 05:49 Dose: 130 mg Phenobarbital Sodium (Phenobarbital Inj 130 Mg/1 Ml Vial) 260 mg IVP Q6H [facility]YA Stop: 06/01/25 05:44 Last Admin: 05/20/25 05:07 Dose: 260 mg Phenobarbital Sodium (Phenobarbital Inj 130 Mg/1 Ml Vial) 260 mg IVP Q8HR [facility]YA Stop: 06/03/25 13:59 Last Admin: 05/21/25 05:38 Dose: 260 mg Phenobarbital Sodium (Phenobarbital Inj 130 Mg/1 Ml Vial) 260 mg IVP Q12HR [facility]YA Stop: 06/04/25 08:59 Last Admin: 05/21/25 08:21 Dose: 260 mg Phenobarbital Sodium (Phenobarbital Inj 130 Mg/1 Ml Vial) 130 mg IVP Q8HR [facility]YA Stop: 06/04/25 13:59 Last Admin: 05/21/25 14:37 Dose: Not Given Phenobarbital Sodium (Phenobarbital Inj 130 Mg/1 Ml Vial) 130 mg IVP Q8HR [facility] Stop: 06/05/25 08:59 Last Admin: 05/22/25 08:14 Dose: 130 mg Phenobarbital Sodium (Phenobarbital Inj 130 Mg/1 Ml Vial) 130 mg IVP Q6HR KYA Stop: 06/05/25 11:59 Last Admin: 05/23/25 05:21 Dose: 130 mg Phenobarbital Sodium (Phenobarbital Inj 130 Mg/1 Ml Vial) 260 mg IVP Q6HR [facility] Stop: 06/06/25 11:59 Potassium Chloride (Potassium Chloride 10% 20 Meq/15 Ml Udc) 40 meq NG X1 ONE Stop: 05/12/25 06:46 Last Admin: 05/12/25 08:11 Dose: 40 meq Potassium Chloride (Potassium Chloride 10% 20 Meq/15 Ml Udc) 40 meq GT X1 ONE Stop: 05/14/25 09:59 Last Admin: 05/14/25 11:45 Dose: 40 meq Potassium Chloride (Potassium Chloride 10% 20 Meq/15 Ml Udc) 40 meq GT X1 ONE Stop: 06/05/25 07:53 Last Admin: 06/05/25 08:59 Dose: 40 meq Propranolol HCl (Propranolol 10 Mg Tablet) 10 mg PO TID KYA Stop: 06/24/25 13:59 Last Admin: 05/28/25 05:09 Dose: 10 mg Rocuronium [place] (Rocuronium Inj 10 Mg/Ml Vial 10 Ml) 70 mg 1 mg/kg (70 mg) IV X1 ONE Stop: 05/13/25 04:21 Last Admin: 05/13/25 04:46 Dose: 70 mg Sevelamer Carbonate (Sevelamer Carbonate 800 Mg Tablet) 800 mg GT X1 ONE Stop: 05/20/25 07:20 Last Admin: 05/20/25 10:57 Dose: Not Given Sevelamer Carbonate (Sevelamer Carbonate 0.8 Gm Packet (Non-Formulary)) 0.8 gm GT X1 ONE Stop: 05/20/25 09:31 Last Admin: 05/20/25 12:27 Dose: 0.8 gm Sevelamer Carbonate (Sevelamer Carbonate 800 Mg Tablet) 800 mg GT X1 ONE Stop: 05/21/25 07:11 Last Admin: 05/21/25 08:20 Dose: 800 mg Sevelamer Carbonate (Sevelamer Carbonate 800 Mg Tablet) 800 mg GT TIDWM [facility] Stop: 06/22/25 07:59 Last Admin: 05/26/25 17:57 Dose: 800 mg Sevelamer Carbonate (Sevelamer Carbonate 0.8 Gm Packet (Non-Formulary)) 0.8 gm GT TIDWM KYA Stop: 06/26/25 07:59 Last Admin: 06/02/25 17:43 Dose: 0.8 gm Sodium Chloride (Sodium Chloride Rt 10% 15 Ml Nebu) 5 ml INH X1 ONE Stop: 05/09/25 16:35 Last Admin: 05/09/25 20:57 Dose: Not Given Sodium Chloride (Sodium Chloride Rt Racquel 0.9% 3 Ml Nebu) 3 ml INH PRN PRN PRN Reason: SOLN Stop: 06/11/25 09:32 Sodium Chloride (Sodium Chloride Rt 10% 15 Ml Nebu) 5 ml INH X1 ONE Stop: 05/14/25 10:01 Last Admin: 05/14/25 15:06 Dose: 5 ml Sodium Chloride (Sodium Chloride Rt 10% 15 Ml Nebu) 5 ml INH X1 ONE Stop: 05/19/25 08:41 Last Admin: 05/19/25 11:55 Dose: Not Given Sodium Chloride (Sodium Chloride Rt 10% 15 Ml Nebu) 5 ml INH X1 ONE Stop: 05/20/25 09:56 Last Admin: 05/23/25 19:46 Dose: Not Given Sodium Chloride (Sodium Chloride Rt 10% 15 Ml Nebu) 5 ml INH X1 ONE Stop: 06/01/25 09:50 Last Admin: 06/02/25 08:04 Dose: Not Given Tamsulosin HCl (Tamsulosin Hcl 0.4 Mg Capsule) 0.4 mg GT QDAY KYA; Protocol Stop: 06/09/25 11:44 Last Admin: 05/11/25 08:38 Dose: 0.4 mg Valproic Acid (Valproic Acid Syrup 250 Mg/5 Ml Udc) 250 mg GT TID KYA Stop: 06/07/25 13:59 Last Admin: 05/08/25 15:39 Dose: 250 mg Valproic Acid (Valproic Acid Syrup 250 Mg/5 Ml Udc) 250 mg GT X1 ONE Stop: 05/08/25 15:40 Last Admin: 05/08/25 15:40 Dose: 250 mg Assessment & Plan Plan 25-year-old male with cerebral palsy, asthma, seizure disorder, chronic mastoiditis, recurrent pneumonia, and chronic PEG tube dependence presented with fever and seizure, was admitted for sepsis workup, and later transferred to the ICU for increased agitation, tachypnea, and increased secretions with recurrent fevers Neurology #Agitated delerium #Serotonin Syndrome #Opiate withdrawal? Still spiking fevers and tachycardic even off medication that can cause serotonin syndrome Diagnostic Test: - EEG did not show seizure activity per neurology. - MRI brain 05/23: showed chronic infections, no acute pathology. ?Repeat EEG pending Treatment Plan: - Continue phenobarbital 64.8 mg HS - Continue Oxycodone to 10 mg TID. - Started Versed drip - Versed 2mg prn q1hr for agitation - Neurology consulted, appreciate recommendations. #History of seizures #Cerebral palsy Diagnosis: - Still spiking fevers - EEG 05/11 unremarkable - Repeat EEG 05/20: electrographic seizure activity. - Persistent fever spikes. - Continuous EEG 05/22-05/23: no seizure activity or status epilepticus. ?Repeat EEG pending Treatment Plan: - Levetiracetam 750mg BID. - Valproic acid 250 mg Q8H. - Adjust seizure medications if breakthrough seizures recur - Seizure precautions. - Aspiration precautions. -Neurology on board, appreciate recs Cardiovascular #Sinus tachycardia DDx: Infectious vs hypersympathetic activity. - Fever spikes associated with tachycardia and tachypnea Treatment Plan: - Will likely start propranolol 10 mg 3 times daily for hypersympathetic activity if no improvement overnight - Continue close cardiac monitoring. - Monitor electrolytes and replete as needed. - Maintain Mg > 2 and K > 4 to reduce arrhythmia risk. Respiratory #Failed extubation 05/12 #Acute hypoxic respiratory failure s/p tracheostomy Treatment Review (completed): ?Tracheostomy on 05/26/2025 - Reintubated overnight 05/13- VC/AC PPeak 20 PEEP 5 FiO2 40%. - Patient underwent bronchoscopy on 05/14 and 05/17 for secretions, well tolerated. - Meropenem (05/12-05/17, 05/19-05/22, for a total of ten days). Treatment Plan: ?Bronchoscopy on 06/05/2025 - Zosyn - Chest physiotherapy PRN. #Bronchospasm #History of asthma Treatment Plan: - Magnesium for bronchodilator effect as needed. - Albuterol and Ipratropium as needed. GI, , F/E/N #Chronic PEG tube dependence Treatment Plan: - Nepro 1.8 CL 1 L RTH -Nepro at 35 ml/hr x 24 hrs via PEG tube by pump (goal). If no IV fluids, continue water flushes of 55 ml/hr #Hepatitis (improving) Likely due to meropenem or tylenol that could potentially cause hepatotoxicity. Diagnostic Test: - Gallbladder ultrasound 05/16: Normal gallbladder, no gallstones. Fatty infiltration throughout the liver. AST 36, ALT 39, alkaline phosphatase 218 today Treatment Plan: - Continue daily LFTs. - Will reassess if transaminases continue to rise or clinical status changes. #Acute urinary retention (resolved) Treatment Plan - Monitor urine output, replace fluid if needed. - Hawkins removed 05/23 - Every 4 hour bladder scan and straight cath as needed for >400cc. #Hypoalbuminemia (resolved) #Paraphimosis (resolved) #Balanitis (resolved) #Phimosis Diagnostic Test: - Edema and tenderness of the glans penis. - Swelling of the distal retracted foreskin. - Constricting band of tissue proximal to the head of the penis at the coronal sulcus. - Hawkins was removed on 05/09 and transitioned to Oivi external urinary catheter. Discussed with family about the need to reinsert hawkins due to the patient's acute urinary retention. Family were in agreement with this plan. Hawkins was reinserted on 05/10 due to urinary retention. Hawkins changed and replaced on 05/16. - S/p reduction of the paraphimosis by Dr. Vargas on 05/09. - 05/29/2025 Patient noticed to have unretractable foreskin Treatment Plan: - Pending urology recs will reach out tomorrow - Control patient's pain with sedation. - Monitor urine output. Renal #Hyperkalemia (resolved) #Hyperphosphatemia (resolved) Stop sevelamer as phosphorus was 3.9 today #Acute kidney injury (resolved) - Creatinine 0.6 today Treatment Plan: - Avoid nephrotoxins. - Renally dose meds as appropriate. - Strict I&Os, monitor urine output closely. - Monitor for signs of volume overload or uremic symptoms. #Anion Gap Metabolic Acidosis (resolved) #Lactic acidosis (resolved) Most recent lactic 1.6 today and bicarb was 27.6 #Rhabdomyolysis (resolved) Heme #Acute nonocclusive thrombus in the left brachial vein Diagnostic Test: - Venous doppler study of upper extremities 05/16: Normal right upper extremity deep venous system. Positive for nonocclusive thrombus in the left brachial vein. - Per chart review and patient's parents, patient does not have history of clots. Treatment Review (completed): - Lovenox 30 mg (05-11 - 05/15). - Lovenox 40 mg (05/16). - Heparin loading dose and ggt. Lovenox to heparin due to heparin?s shorter half-life, which allows for more rapid cessation in the event of bleeding, a shorter half life and can be stopped if bleeding occurs. - Stopped heparin ggt due to hematuria on 05/18. Treatment Plan: - Lovenox 70 mg SC BID switched today for DVT Tx - Primary upper extremity deep vein thrombosis, anticoagulation should be continued for a minimum of three months following the initial thrombotic event. #Normocytic Anemia DDx: Anemia of Inflammation vs dilutional anemia vs drug-induced anemia. Likely dilutional anemia since patient had normal hemoglobin on admission and from IV fluids per sepsis protocol. No signs of bleeding. Hemoglobin 8.6 today Treatment Plan: - Monitor H&H. - Type and screen. - Transfusing for Hgb <7 or symptomatic. #Leukocytosis DDx: Likely infectious versus reactive Diagnostic Test: Still spiking fevers WBC 12.3 today Treatment Plan: - Treat underlying cause. #Thrombocytopenia (resolved) #Thrombocytosis (Resolved) Endo #no active problems ID #Sepsis #Bilateral chronic mastoiditis #Sinusitis #Bilateral otitis media #Bilateral otitis externa #Brittney parapsilosis #UTI, ESBL E. coli #Pseudomonas aeruginosa sputum DDx: acute on chronic mastoiditis vs acute febrile illness. Diagnostic Test: - History of chronic mastoiditis. - 05/08 CT Head: prominent sphenoid ethmoid maxillary antral sinusitis, bilateral chronic mastoiditis, bilateral otitis media. - 05/08 CT Orbit Sella Inner: severe bilateral chronic mastoiditis, bilateral otitis externa and otitis media, bilateral cholesteatomas in the attics. - 05/09 Sputum culture: 1+ thurman resistance Pseudomonas. - 05/10 Lumbar puncture: clear, WBC 3, glucose 70, total protein 25. CSF testing negative. - 05/10 Respiratory viral panel: rhinovirus/enterovirus and human metapneumovirus detected. - 05/12 Bilateral ear culture: E coli ESBL. - UA 05/08 and 05/16 negative. - Blood culture 05/08, 05/11, and 05/16 negative. - 05/16 CXR: worsening diffuse severe left lung pneumonia. - Brittney parapsilosis in L ear culture ?Urine culture grew ESBL E. coli on 06/01/2025 ? Pseudomonas aeruginosa on sputum on 06/01/2025 Treatment Review (completed) IV Zosyn 3.375g x1 (at 05/08) IV Ceftriaxone 1g x1 (at 05/08) IV Acyclovir 640mg q8hr (05/08-05/11) since LP negative. IV Ceftriaxone 2g q12hr (05/08-05/11) IV Vancomycin qd (05/08-05/11) since MRSA screen is negative Ofloxacin Opt racquel 0.3% 5 drops Both ears bid (05/09-05/18, 05/21-05/31) IV Meropenem 1000mg q8hr (05/12-05/22, 05/24-05/25) IV Doxycycline (05/16-05/18) IV Micafungin 100mg qd (05/28-05/30, 06/01-06/03) Ciprofloxacin Op Racquel 0.3% ear drops (06/02-06/03) Treatment Plan: - Zosyn and fluconazole ? Acetic acid drops twice daily ?Clotrimazole 1% topical solution 4 drops twice daily Repeat blood cultures today Beta D glucan ordered today . Health Maintenance DVT prophylaxis: SCDs, Levonox 70mg BID GI prophylaxis: Prevacid Diet: Nepro Hawkins: none. Straight cath in/out q4h if urine retention more than 400 ml Lines: Peripherals, PEG tube. Drips: Versed Code status: Full code Case disclosed with Attending Dr. Marcello Easton PGY2 Disclaimer: Even though this this note was dictated by speech recognition and even though it was carefully revised there may still be minor errors in press set up person due to voice recognition software. Attending Provider Attestation/Addendum Patient seen and examined with the above resident, Alexandr Easton MD. I agree with the findings, assessment, and plan of care as document except for any differences below. Patient returns to ICU with ongoing fevers. His respiratory status has continued to improve over the course of the week as I follow them on pulmonology service with ability to wean to pressure support of 6/ over PEEP of 6 with unchanged FiO2. However today the patient continues to have tacky cardia, fever, and tachypnea with multiple rapid responses. Patient with repeat procalcitonin and Fungitell sent. Infection seems less likely and the patient has had previous drug fever though review of list does not show any significant agent that would be consistent with serotonin syndrome which was a previous diagnosis and which had appropriate response after discontinuation of guaifenesin and fentanyl. Patient has required intermittent opiates and clinical exam there may be a component of opiate withdrawal. Phenobarbital dosing has been gradually tapered off appropriately. Concern for PELOTA MAKER induced fever with possible seizure activity EEG and the patient remains on appropriate antiepileptics. Patient started on Versed drip and placed back in ICU on control mechanical ventilation. Could be a component of the patient has tired out from slow weaning though this seems less likely. Secretions continue to be stable intermittently thick though not requiring frequent suctioning throughout the day. Pseudomonas growth to be expected from chronic colonization and antibiotics were started by medicine team appropriately given unknown etiology of the fever. Bronchoscopy was done at bedside with new BAL from right middle lobe sent as RAP remains the most likely source of infection though he does also have potential for urinary source. Urology will be seeing him this week for treatment of his phimosis though UA most recently not suggestive of infection. Patient's mother was updated on plan of care and was agreeable but she is not amenable to coming to bedside given her social circumstances at the moment. Will continue to keep her and the family updated on ongoing investigation despite ongoing fevers for the previous few days. Will await further input from ID tomorrow and results of procalcitonin and Fungitell to help determine if additional antimicrobial coverage is required. Total critical care time: Personally spent 40 minutes for review of physiologic parameters, directing plan of care throughout the day, coordination of care with other specialists, and counseling family over the telephone. This is exclusive of time spent teaching of staff and performing separate billable procedures. Patient remains at significant risk for further morbidity and mortality warranting close monitoring and care only available in the ICU. Critical care services required for acute on chronic respiratory failure, Pseudomonas pneumonia, fever of unknown origin, acute encephalopathy.
[2025-06-05 17:20] LABS: Lactate (Lactic Acid) 1.6 mMol/L (0.4-2.0)
--- NOTE | 2025-06-05 17:29 | EVENTNT_ITS ---
Documentation for date of: 06/05/25 Event Note Event Note: Earlier this morning patient was tachypneic tachycardic and had a fever, rapid response was called earlier this morning as well. Patient was given oxycodone in the morning, earlier this afternoon patient was tachypneic tachycardic and febrile. Respiratory rate in 60s, heart rate in 160s as well. Seen at bedside blood pressure within normal limits underlying symptoms secondary to agitation, patient was given total 4 mg Versed, 2 mg of morphine and 32.4 mg of phenobarbital, ventilator mode changed to SIMV. Throughout the day patient was given 2 500 cc boluses as well, lactate and VBG obtained. VBG shows pH 7.5, pCO2 34 and lactate within normal limits 1.9. Patient around noon responded well to treatment. However around 4 patient started to be tachypneic tachycardic and continued to have a fever. Was given IV Tylenol, was started on Zosyn earlier today, was given another 2 mg of Versed followed by 10 mg oxycodone, patient had minimal response. Was given another 2 mg of morphine and Versed however patient con tinues to remain tachycardic tachypneic and febrile, requiring close nursing intervention and temperature monitoring for possible cooling blanket, case was discussed with supervisor kosher dietary service team and patient will be upgraded to ICU. Pending echocardiogram which was ordered, was started on IV fluconazole. Lactate and Pro-Christ will be repeated. Patient signed off to ICU team, upgraded to ICU. Case discussed with Attending Physician DO Robert Pruett MD Internal Medicine PGY-2 Disclaimer: This note was dictated by speech recognition. Minor errors in data analytics analyst may be present due to voice recognition software.
--- NOTE | 2025-06-05 17:45 | PC.NURSE ---
pt arrived to icu agigated and requiring multiple medication interventions. time out done for bronchoscopy and procedure succesful. vital signs stable and pt placed on cooling blanket.
[2025-06-05] MEDS: MIDAZOLAM INJ 1 MG/ML VIAL 2 ML 6 MG IVP (17:54)
[2025-06-05] MEDS: MIDAZOLAM/NS 100 MG IVPB 100 MG/100 ML BAG IV (17:58)
[2025-06-05] MEDS: fentaNYL CIT INJ 50 mCg/ML AMP 2ML IVP (17:58)
[2025-06-05 18:12] LABS: Procalcitonin 0.21 ng/ml (0.0-0.49)
[2025-06-05] MEDS: LIDOCAINE HCL 1% 20 ML VIAL 8 ML INFL (18:16)
--- NOTE | 2025-06-05 19:11 | ESOP_ITS ---
PROCEDURES: Procedure Date / Time 06/05/25 1800 Procedural Time Out Time out performed: yes Procedure Narrative Procedure Narrative: Attending Attestation: I was present for entire procedure. Patient adequately sedated with use of Versed and fentanyl. Versed drip was continued throughout the procedure and will be used for sedation post. Bronchoscope introduced through tracheostomy tube. XLT tube ending in distal trachea but remains above the jonelle with adequate positioning for introduction of bronchoscope. Local lidocaine, 1% total 10 mL administered via bronchoscope prior to advancing to subsequent generation of airways. Patient with thin secretions throughout. No mucous plugging or clear obstruction or foreign body. No significant mucosal erythema compared to prior assessments. BAL was done in the right middle lobe and sent for micro analysis. Patient tolerated procedure well with no immediate complications. Patient remains on control mechanical ventilation with adequate sedation. Bronchoscopy Bronscopy indication(s): removal of secretions Informed consent obtained from: surrogate Time out done and the following verified: correct patient, side and site, procedure, patient position and implants and/or equipment Oxygen delivery: via mechanical vent. Trachea: secretions noted Jonelle: sharp in angle RUL & subsegmental branches: inflammation and other (secretions easily suctioned and erythema in mucosa ) RML & subsegmental branches: inflammation and other (secretions easily suctioned and erythema in mucosa ) RLL & subsegmental branches: inflammation and other (secretions easily suctioned and erythema in mucosa ) BRENDA & subsegmental branches: inflammation and other (secretions easily suctioned and erythema in mucosa ) LLL & subsegmental branches: inflammation and other (secretions easily suctioned and erythema in mucosa ) Bronchoalveolar lavage: Specimen were collected from the RML EBL: 0 Patient tolerated procedure: well Complications: Yes Procedure comment: Procedure done without complications. Right and Left lobes were visualized to have mild/moderate secretions easily suctioned. Erythema in mucosa on KARLO lobes. BAL collected from RML. Case disclosed with Attending Dr. Marcello Easton PGY2 Disclaimer: Even though this this note was dictated by speech recognition and even though it was carefully revised there may still be minor errors in pony ride attendant due to voice recognition software.
[2025-06-05] MEDS: FLUCONAZOLE/NS 400 MG IVPB 400 MG/200 ML BAG 100 MG IV (20:53)
[2025-06-05] MEDS: MIDAZOLAM INJ 1 MG/ML VIAL 2 ML 4 MG IVP (22:00)
[2025-06-05 23:56] LABS: Base Excess 2 (-3-3); HCO3 25 mEq/L (20-26); O2 Saturation 101 % (91-98); PCO2 35 mmHg (32.0-48.0); PO2 200 mmHg (83-108); pH, Arterial 7.47 (7.35-7.45)
[2025-06-06] VITALS (37 sets, daily range): BP systolic 101–156; BP diastolic 53–103; PULSE 80–158; RESP 15–34; TEMP 37–39.1; O2SAT 100; BMI 29.8
[2025-06-06 00:02] LABS: Inspired Oxygen, FIO2 50 %
[2025-06-06 00:03] LABS: Allen Test Performed/OK; Puncture Site Left Radial
[2025-06-06] MEDS: IBUPROFEN SUSP 100 MG/5 ML UDC 200 MG PO (03:36)
[2025-06-06] MEDS: PIPER/TAZO INJ 4.5 GM in SODIUM CHLORIDE 0.9% (POP) 100 ML IV ×3 (05:00→21:23)
[2025-06-06] MEDS: oxyCODONE HCL 5 MG IR TAB 10 MG PO ×3 (05:01→21:22)
[2025-06-06] MEDS: VALPROIC ACID SYRUP 250 MG/5 ML UDC GT ×3 (05:01→21:23)
[2025-06-06] MEDS: PROPRANOLOL 10 MG TABLET GT ×3 (05:01→21:23)
--- NOTE | 2025-06-06 05:09 | ESPR_ITS ---
Subjective Subjective Interval history: findings noted. I remain away for a few days. as before, the answer seems to be drug cessation which can be hard to do. he has many allergies so that seems like the most likely scenario here Exam Vital Signs Temp Pulse Resp BP Pulse Ox O2 Del Method O2 Flow Rate 100.5 F H 114 H 17 130/74 100 Mechanical Ventilation 35 06/06/25 04:36 06/06/25 05:01 06/05/25 18:01 06/06/25 05:01 06/06/25 04:31 06/06/25 04:00 06/05/25 16:00 FiO2 40 06/06/25 04:31 Narrative Exam not seen. I am away for a few days Objective - Internal Medicine Labs 06/05/25 05:16 06/05/25 05:16 Labs: Laboratory Results - last 24 hr 06/05/25 06/05/25 06/05/25 05:16 13:37 16:54 WBC 12.3 H RBC 3.17 L Hgb 8.6 L Hct 26.3 L MCV 83 MCH 27.1 MCHC 32.7 RDW Std Deviation 46.0 H Plt Count 391 D Neut % (Auto) 56 Lymph % (Auto) 23 [place] % (Auto) 15 H Eos % (Auto) 5 Baso % (Auto) 1 Neut # (Auto) 7.0 Lymph # (Auto) 2.8 [place] # (Auto) 1.8 H Eos # (Auto) 0.6 H Baso # (Auto) 0.1 Immature Gran # (Auto) 0.06 H Absolute Nucleated RBC 0.00 Immature Gran % 1 H Nucleated RBC % 0 Puncture Site ABG pH ABG pCO2 ABG pO2 ABG HCO3 ABG O2 Saturation ABG Base Excess VBG pH 7.50 VBG pCO2 34 L VBG pO2 90 H VBG O2 Sat (Maryam) 98 H VBG Base Excess 4 H FiO2 Sodium 137 Potassium 3.4 D Chloride 98 Carbon Dioxide 27.6 Anion Gap 11 BUN 12 Creatinine 0.6 Estim Creat Clear Calc 149.6 eGFR > 60 BUN/Creatinine Ratio 20 Glucose 95 Calculated Osmolality 273 L Lactic Acid 1.9 1.6 Calcium 10.0 Corrected Calcium 10.0 Phosphorus 3.9 Magnesium 1.6 Total Bilirubin 0.3 AST 36 H ALT 39 Alkaline Phosphatase 218 H Total Protein 6.9 Albumin 4.2 Globulin 2.7 Albumin/Globulin Ratio 1.6 Procalcitonin 0.21 06/05/25 23:46 WBC RBC Hgb Hct MCV MCH MCHC RDW Std Deviation Plt Count Neut % (Auto) Lymph % (Auto) [place] % (Auto) Eos % (Auto) Baso % (Auto) Neut # (Auto) Lymph # (Auto) [place] # (Auto) Eos # (Auto) Baso # (Auto) Immature Gran # (Auto) Absolute Nucleated RBC Immature Gran % Nucleated RBC % Puncture Site Left Radial ABG pH 7.47 H ABG pCO2 35 ABG pO2 200 H ABG HCO3 25 ABG O2 Saturation 101 H ABG Base Excess 2 VBG pH VBG pCO2 VBG pO2 VBG O2 Sat (Maryam) VBG Base Excess FiO2 50 Sodium Potassium Chloride Carbon Dioxide Anion Gap BUN Creatinine Estim Creat Clear Calc eGFR BUN/Creatinine Ratio Glucose Calculated Osmolality Lactic Acid Calcium Corrected Calcium Phosphorus Magnesium Total Bilirubin AST ALT Alkaline Phosphatase Total Protein Albumin Globulin Albumin/Globulin Ratio Procalcitonin ABG Interpretation ABG results: 05/09/25 05/09/25 05/09/25 11:56 13:40 18:50 ABG pH 7.40 7.27 L D 7.28 L ABG pCO2 40 43 55 H D ABG pO2 131 H 53 L* D 70 L ABG HCO3 25 20 26 ABG O2 Saturation 99 H 81 L 92 ABG Base Excess 0 -7 L -2 VBG pH VBG pCO2 VBG pO2 VBG Base Excess 05/10/25 05/11/25 05/12/25 00:14 05:06 01:18 ABG pH 7.35 7.33 L 7.39 ABG pCO2 42 D 54 H D 48 ABG pO2 103 D 93 94 ABG HCO3 23 28 H 29 H ABG O2 Saturation 99 H 98 98 ABG Base Excess -3 2 3 VBG pH VBG pCO2 VBG pO2 VBG Base Excess 05/12/25 05/12/25 05/13/25 03:58 11:50 05:10 ABG pH 7.46 H 7.39 7.19 L* D ABG pCO2 41 48 60 H D ABG pO2 105 58 L* D 114 H D ABG HCO3 29 H 29 H 23 ABG O2 Saturation 99 H 90 L 98 ABG Base Excess 5 H 4 H -6 L VBG pH VBG pCO2 VBG pO2 VBG Base Excess 05/17/25 05/18/25 05/19/25 01:30 04:09 04:43 ABG pH 7.38 7.43 7.47 H ABG pCO2 46 44 43 ABG pO2 90 83 80 L ABG HCO3 27 H 29 H 31 H ABG O2 Saturation 98 97 97 ABG Base Excess 2 5 H 7 H VBG pH VBG pCO2 VBG pO2 VBG Base Excess 05/21/25 05/21/25 05/31/25 04:18 06:33 08:06 ABG pH 7.37 D 7.46 H ABG pCO2 50 H 38 D ABG pO2 40 L* D 121 H D ABG HCO3 29 H 27 H ABG O2 Saturation 66 L 100 H ABG Base Excess 3 3 VBG pH 7.55 VBG pCO2 31 L VBG pO2 144 H VBG Base Excess 5 H 06/05/25 06/05/25 13:37 23:46 ABG pH 7.47 H ABG pCO2 35 ABG pO2 200 H ABG HCO3 25 ABG O2 Saturation 101 H ABG Base Excess 2 VBG pH 7.50 VBG pCO2 34 L VBG pO2 90 H VBG Base Excess 4 H Assessment & Plan A&P Narrative viral findings on pcr testing at health dept. cmv pos in initially, repeat noted resp failure fuo procal neg 06/02 procal insensitive to fungal antigens I am ok with him off many meds entirely. procal has mostly been neg for a long time now so value of more abx seems low.and despite icu insistence. it looks like the response to antifungal rx is absent. would not target the cmv. tests suggest old cmv and ebv value of rx seems low. hardest thing to do is stop meds but that is often what is needed. meenakshi in sputum also not felt to be a pathogen. so would not target the meenakshi either. but if you insist on rx, then flucon enterally ok for yeast in sputum but cxr is neg so value seems low will f/u friday of this week prognosis guarded with continued vent needs hiv and hep c neg I will be away for a few days and back friday. sadly, this may be all drug related fever but hardest thing to do is stop meds Time Spent With Patient Time: Total time spent is greater than 50% in coordination of care (as documented) at patient's floor/unit and/or counseling patient:
[2025-06-06 05:30] LABS: Alanine Aminotransferase 38 U/L (10-49); Albumin, Serum 4.4 gm/dL (3.5-5.0); Albumin/Globulin Ratio 1.6 (1.2-2.2); Alkaline Phosphatase 210 U/L (46-116); Anion Gap 11 (7-16); Aspartate Amino Transferase 49 U/L (0-34); BUN/Creatinine Ratio 20 Ratio (12-20); Bilirubin,Total 0.4 mg/dL (0.3-1.2); Blood Urea Nitrogen 12 mg/dL (9-23); Calcium 9.9 mg/dL (8.3-10.6); Calcium (Corrected) 9.9 mg/dL (8.5-10.1); Carbon Dioxide 23.7 mMol/L (20.0-31.0); Chloride 100 mMol/L (98-107); Creatinine (Component) 0.6 mg/dL (0.6-1.3); Estimated Creatinine Clearance 149.6 mL/min (>60); Globulin 2.8 gm/dL (2.3-3.5); Glucose 95 mg/dL (74-106); Magnesium 1.7 mg/dL (1.6-2.6); Osmolality,Calculated 269 (275-295); Phosphorous 5.1 mg/dL (2.4-5.1); Potassium 4.8 mMol/L (3.4-5.1); Sodium 135 mMol/L (136-145); Total Protein 7.2 gm/dL (5.7-8.2); eGFR > 60 See Note
[2025-06-06 05:31] LABS: Base Excess 2 (-3-3); HCO3 26 mEq/L (20-26); Inspired Oxygen, FIO2 40 %; O2 Saturation 89 % (91-98); PCO2 38 mmHg (32.0-48.0); pH, Arterial 7.45 (7.35-7.45)
[2025-06-06 05:35] LABS: Allen Test Performed/OK; PO2 54 mmHg (83-108); Puncture Site Left Radial
[2025-06-06 05:37] LABS: Basophils # (Auto) 0.1 Thou/mm3 (0.0-0.2); Basophils % (Auto) 1 % (0-2.5); Eosinophils # (Auto) 0.3 Thou/mm3 (0.0-0.5); Eosinophils % (Auto) 1 % (0-10); Hematocrit 31.2 % (41.0-53.0); Hemoglobin 10.3 g/dL (13.5-16.0); Immature Granulocytes Auto 0.22 Thou/mm3 (0.00-0.00); Lymphocytes # (Auto) 3.0 Thou/mm3 (1.0-4.8); Lymphocytes % (Auto) 13 % (10-50); Mean Corpuscular HGB Conc 33.0 g/dl (31.0-37.0); Mean Corpuscular Hemoglobin 27.4 pg (25.0-35.0); Mean Corpuscular Volume 83 fL (80-100); Monocytes # (Auto) 1.7 Thou/mm3 (0.0-0.8); Monocytes % (Auto) 7 % (0-12); Neutrophils # (Auto) 18.0 Thou/mm3 (1.8-7.7); Neutrophils % (Auto) 78 % (37-80); Nucleated Red Blood Cell # 0.00 Thou/mm3 (0.00-0.00); Nucleated Red Blood Cell % 0 /100 WBC (0); Platelet Count 351 Thou/mm3 (140-440); RDW Standard Deviation 48.0 fL (35.1-43.9); Red Blood Count 3.76 Miln/mm3 (4.50-5.90); White Blood Count 23.2 Thou/mm3 (3.8-10.6)
[2025-06-06] MEDS: Magnesium Sulfate 4 GM Ivpb 4 GM/50 ML BAG IV (06:24)
--- NOTE | 2025-06-06 08:56 | XR_ITS ---
Examination: Bone scan whole body, radioisotope Date and time of exam: June 06, 2025, 1610 hours INDICATIONS: Seizure disorder, sepsis, hypoxic respiratory failure, hyperphosphatemia Technique: Study has been performed with intravenous administration of 24 mci 99M technetium MDP. Anterior, posterior whole body images are obtained. Images have been obtained including the lower extremities. Findings: Minor asymmetric uptake about the left knee Mild increased uptake mid left tibia IMPRESSION: Positive bone scan but nonspecific Recommend plain films left knee and left tibia fibula follow-up
[2025-06-06] MEDS: FLUCONAZOLE/NS 400 MG IVPB 400 MG/200 ML BAG 100 MG IV (09:44)
[2025-06-06] MEDS: SEVELAMER CARBONATE 800 MG TABLET PO ×3 (09:44→17:49)
[2025-06-06] MEDS: LANSOPRAZOLE 30 MG TAB.RAP.DR GT (09:44)
[2025-06-06] MEDS: ENOXAPARIN SOD INJ 80 MG/0.8 ML SYRINGE 70 MG SC (09:44)
[2025-06-06] MEDS: Acetic Acid Irrig 0.25% 500 ML BTL 250 ML IRRIG ×2 (09:46→21:17)
[2025-06-06] MEDS: levETIRAcetam LIQD 500 MG/5 ML UDC 750 MG GT ×2 (09:49→21:19)
[2025-06-06] MEDS: POLYETHYLENE GLYCOL 17 GM PACKET PO (09:55)
[2025-06-06 10:40] LABS: Vitamin D 25 Hydroxy Total 18.1 ng/mL (7.3-40.2)
[2025-06-06 10:46] LABS: Parathyroid Hormone Intact 3.6 pg/ml (18.5-88.0)
[2025-06-06] MEDS: MIDAZOLAM/NS 100 MG IVPB 100 MG/100 ML BAG IV (13:26)
--- NOTE | 2025-06-06 13:28 | ESPR_ITS ---
<Statement entered by Alexandr Easton MD - 06/06/25 18:15> I have reviewed the note and agree with the resident's assessment & plan with exceptions as below. I have personally reviewed labs, imaging, home meds/prior records, examined the patient, formulated and discussed management plan with my attending. Patient was seen examined bedside's morning. Overnight patient's ventilator settings were changed and was placed on FiO2 of 50% patient was still spiking fevers until 4:30 AM. Patient was placed on Seroquel last night after mother stated that he was on Seroquel at home. At the patient did receive Seroquel his heart rate improved. Patient still had fevers until around 4:30 AM this morning, but since then has not spiked any fevers with the highest temperature being 99.7. Also started patient on propranolol 10 mg 3 times daily for hypersympathetic activity. Will continue with patient's Zosyn and fluconazole for now and also ordered nuclear medicine bone scan as patient's hyperphosphatemia could be due to increased bone tumor burden likely from either infectious disease versus malignancy. Patient also appeared to be bleeding in his mouth later in the day and was found to have been in his time therefore Lovenox was held to stop the bleeding and patient was placed on Nimbex in order to open his mouth and apply Surgicel, please see event note for further details about discussion with family about this. Patient will be on Versed drip with a RASS of -4 for sedation at this time without any propofol or fentanyl given that patient was recently on propofol and fentanyl and we have high suspicion that medications were attributing to his fevers causing medication induced fever at this time. Will keep patient on Versed at for sedation for now and Nimbex for paralytic until tomorrow morning once bleeding has ceased. Otherwise still pending repeated blood cultures and sputum cultures from the bronchoscopy. Will continue to monitor for now. Alexandr Easton PGY2 Disclaimer: Even though this this note was dictated by speech recognition and even though it was carefully revised there may still be minor errors in director of enterprise strategy due to voice recognition software. Documentation for date of: 06/06/25 Subjective Subjective Interval history: 25-year-old male with cerebral palsy, asthma, seizure disorder, chronic mastoiditis, recurrent pneumonia, and chronic PEG tube dependence presented with fever and seizure, was admitted for sepsis workup, and later transferred to the ICU on 05/09/2025 where he underwent intubation and eventually underwent tracheostomy due to not being able to take off mechanical ventilator and increased accretions. Patient had a prolonged ICU stay until 05/31/2025 when he was downgraded back to the medical floors that his fever had subsided after medications which could have caused several changes and then were discontinued. Patient in the ICU received multiple full treatments with antibiotics including meropenem and got a bronchoscopy throughout the ICU stay. Once patient was downgraded to the medical floors on 06/01/2025 patient spiked a fever of 101.8 and was more tachycardic. IV fluids were given at this time and Versed pushes were also given for agitation. Hospitalist team then repeated blood cultures and urine cultures as well as sputum cultures. Patient sputum culture on 06/01/2025 did grow Pseudomonas aeruginosa sensitive to Zosyn and his urine did grow ESBL E. coli which was sensitive to Zosyn as well. Patient was also seen on 06/03/2025 by ENT and recommended acetic acid irrigations to the left ear with clotrimazole or VoSol drops twice daily for 10 days and also stated no need for surgical intervention for mastoiditis at this time. Even on recommendations by ENT and after starting fluconazole as well as Zosyn on 06/05/2025 patient still spiking fevers and today his heart was in the 160s and he was very tachypneic. On assessment patient was noted to have increased respiratory rate, was diaphoretic, and seemed in significant discomfort and was agitated. At this time patient was transferred to the ICU for further level care given fever of unclear etiology and increased agitation as well as breathing over the vent. 06/06/25: Patient seen and assessed at bedside. Was informed by family overnight that patient was previously on Seroquel 50 mg every morning as well as 100 mg nightly for agitation prior to admission. Restarted last night. Continued to have fevers (highest at 101.4F), resolved after 4AM. Tachycardia also resolved around the same time. Continues to be afebrile. On physical exam, noted to have bitten off the tip of his tongue, likely in setting of agitation overnight. Held Lovenox in setting of new active bleed. Will start on paralytic cistracurium to relax jaw and Surgicel bleeding site. Will increase Versed for sedation of RASS -4, will not start new sedative to avoid complicating his current condition and possibly inducing serotonin syndrome like previously during this admission. On labs, WBC continues to uptrend and phosphate slowly increasing. Restarted on sevelamer. Ordered bone scan to evaluate osteoblast activity (which may also be contributing to patient's recurrent fevers) and other potential sources of bone infection. Magnesium 1.7, repleted with IV mag sulfate 4g. Patient's family was updated via phone with mail handlers supervisor present of patient's current condition including tongue laceration. Notified them of current plan of action including need for paralytic at this time, they were agreeable to plan. Continue Zosyn, fluconazole, and clotrimazole ear drops. Exam Vital Signs Temp Pulse Resp BP Pulse Ox O2 Del Method O2 Flow Rate 98.9 F 105 H 17 112/86 H 100 Mechanical Ventilation 35 06/06/25 08:00 06/06/25 11:06/05/25 18:01 06/06/25 11:01 06/06/25 11:01 06/06/25 04:00 06/05/25 16:00 FiO2 40 06/06/25 09:42 Narrative Exam Physical Exam General: Sedated and trached, awake and in no acute distress. HEENT: NCAT, EOMI, Pupils reactive KARLO, not icteric. External ears normal. No rhinorrhea. Moist mucous membranes. Neck: Supple, full range of motion, no observable masses, No meningeal sign. Heart: Regular rate and rhythm, normal S1 and S2, no murmurs appreciated. Lungs: Coarse breath sounds bilaterally, no respiratory distress. Abdomen: Soft, nondistended, nontender, positive bowel sounds. No guarding or rebound tenderness. PEG tube in place. MSK: No lower extremity edema no redness, peripheral pulses presents, Contracted and swollen hands. Neurologic: Unable to assess due to patient's medical condition, pupils reactive Skin: No petechiae, lesions, ecchymosis. Swelling in right upper arm has resolved, minimal erythema. Objective Labs 06/06/25 04:39 06/06/25 04:39 Labs: Laboratory Results - last 24 hr 06/05/25 06/05/25 06/05/25 13:37 16:54 23:46 WBC RBC Hgb Hct MCV MCH MCHC RDW Std Deviation Plt Count Neut % (Auto) Lymph % (Auto) [place] % (Auto) Eos % (Auto) Baso % (Auto) Neut # (Auto) Lymph # (Auto) [place] # (Auto) Eos # (Auto) Baso # (Auto) Immature Gran # (Auto) Absolute Nucleated RBC Immature Gran % Nucleated RBC % Puncture Site Left Radial ABG pH 7.47 H ABG pCO2 35 ABG pO2 200 H ABG HCO3 25 ABG O2 Saturation 101 H ABG Base Excess 2 VBG pH 7.50 VBG pCO2 34 L VBG pO2 90 H VBG O2 Sat (Maryam) 98 H VBG Base Excess 4 H FiO2 50 Sodium Potassium Chloride Carbon Dioxide Anion Gap BUN Creatinine Estim Creat Clear Calc eGFR BUN/Creatinine Ratio Glucose Calculated Osmolality Lactic Acid 1.9 1.6 Calcium Corrected Calcium Phosphorus Magnesium Total Bilirubin AST ALT Alkaline Phosphatase Total Protein Albumin Globulin Albumin/Globulin Ratio 25-OH Vitamin D Total Procalcitonin 0.21 PTH Intact 06/06/25 06/06/25 06/06/25 04:39 05:20 09:34 WBC 23.2 H D RBC 3.76 L Hgb 10.3 L Hct 31.2 L MCV 83 MCH 27.4 MCHC 33.0 RDW Std Deviation 48.0 H Plt Count 351 D Neut % (Auto) 78 Lymph % (Auto) 13 [place] % (Auto) 7 Eos % (Auto) 1 Baso % (Auto) 1 Neut # (Auto) 18.0 H Lymph # (Auto) 3.0 [place] # (Auto) 1.7 H Eos # (Auto) 0.3 Baso # (Auto) 0.1 Immature Gran # (Auto) 0.22 H Absolute Nucleated RBC 0.00 Immature Gran % 1 H Nucleated RBC % 0 Puncture Site Left Radial ABG pH 7.45 ABG pCO2 38 ABG pO2 54 L* D ABG HCO3 26 ABG O2 Saturation 89 L ABG Base Excess 2 VBG pH VBG pCO2 VBG pO2 VBG O2 Sat (Maryam) VBG Base Excess FiO2 40 Sodium 135 L Potassium 4.8 D Chloride 100 Carbon Dioxide 23.7 Anion Gap 11 BUN 12 Creatinine 0.6 Estim Creat Clear Calc 149.6 eGFR > 60 BUN/Creatinine Ratio 20 Glucose 95 Calculated Osmolality 269 L Lactic Acid Calcium 9.9 Corrected Calcium 9.9 Phosphorus 5.1 Magnesium 1.7 Total Bilirubin 0.4 AST 49 H ALT 38 Alkaline Phosphatase 210 H Total Protein 7.2 Albumin 4.4 Globulin 2.8 Albumin/Globulin Ratio 1.6 25-OH Vitamin D Total 18.1 Procalcitonin PTH Intact 3.6 L ABG Interpretation ABG results: 05/09/25 05/09/25 05/09/25 11:56 13:40 18:50 ABG pH 7.40 7.27 L D 7.28 L ABG pCO2 40 43 55 H D ABG pO2 131 H 53 L* D 70 L ABG HCO3 25 20 26 ABG O2 Saturation 99 H 81 L 92 ABG Base Excess 0 -7 L -2 VBG pH VBG pCO2 VBG pO2 VBG Base Excess 05/10/25 05/11/25 05/12/25 00:14 05:06 01:18 ABG pH 7.35 7.33 L 7.39 ABG pCO2 42 D 54 H D 48 ABG pO2 103 D 93 94 ABG HCO3 23 28 H 29 H ABG O2 Saturation 99 H 98 98 ABG Base Excess -3 2 3 VBG pH VBG pCO2 VBG pO2 VBG Base Excess 05/12/25 05/12/25 05/13/25 03:58 11:50 05:10 ABG pH 7.46 H 7.39 7.19 L* D ABG pCO2 41 48 60 H D ABG pO2 105 58 L* D 114 H D ABG HCO3 29 H 29 H 23 ABG O2 Saturation 99 H 90 L 98 ABG Base Excess 5 H 4 H -6 L VBG pH VBG pCO2 VBG pO2 VBG Base Excess 05/17/25 05/18/25 05/19/25 01:30 04:09 04:43 ABG pH 7.38 7.43 7.47 H ABG pCO2 46 44 43 ABG pO2 90 83 80 L ABG HCO3 27 H 29 H 31 H ABG O2 Saturation 98 97 97 ABG Base Excess 2 5 H 7 H VBG pH VBG pCO2 VBG pO2 VBG Base Excess 05/21/25 05/21/25 05/31/25 04:18 06:33 08:06 ABG pH 7.37 D 7.46 H ABG pCO2 50 H 38 D ABG pO2 40 L* D 121 H D ABG HCO3 29 H 27 H ABG O2 Saturation 66 L 100 H ABG Base Excess 3 3 VBG pH 7.55 VBG pCO2 31 L VBG pO2 144 H VBG Base Excess 5 H 06/05/25 06/05/25 06/06/25 13:37 23:46 05:20 ABG pH 7.47 H 7.45 ABG pCO2 35 38 ABG pO2 200 H 54 L* D ABG HCO3 25 26 ABG O2 Saturation 101 H 89 L ABG Base Excess 2 2 VBG pH 7.50 VBG pCO2 34 L VBG pO2 90 H VBG Base Excess 4 H Quality Measures Quality Measures VTE prophylaxis (SCDs) and sepsis Current suspected stage: ruled out Possible source: pulmonary Blood cultures ordered: yes Antibiotic ordered: Yes Assessment & Plan Assessment Current Active Medications: Generic Name Dose Route Start Last Admin Trade Name Freq PRN Reason Stop Dose Admin Acetic Acid 250 ml 06/03/25 21:00 06/06/25 09:46 Acetic Acid Irrig 0.25% 500 Ml Btl IRRIG 07/03/25 20:59 250 ml BID KYA Administration Albuterol/Ipratropium 3 ml 05/09/25 18:19 05/28/25 06:34 Albuterol/Ipratropium (Duoneb) Rt Racquel 3 Ml Nebu INH 06/08/25 18:18 3 ml Q2HR PRN Administration SHORTNESS OF BREATH OR WHEEZE Enoxaparin Sodium 70 mg 05/30/25 21:00 06/06/25 09:44 Enoxaparin Sod Inj 80 Mg/0.8 Ml Syringe SC 06/13/25 20:59 70 mg BID KYA Administration Ferrous Sulfate 325 mg 06/01/25 09:00 06/05/25 08:12 Ferrous Sulfate 300 Mg/5 Ml Udc PO 07/01/25 08:59 325 mg QOD KYA Administration Piperacillin Sod/Tazobactam 100 mls @ 200 mls/hr 06/05/25 14:00 06/06/25 05:00 Sod 4.5 gm/ Sodium Chloride IV 06/12/25 13:59 200 mls/hr Q8HR KYA Administration Protocol Fluconazole 400 mg in 200 mls @ 100 mls/hr 06/05/25 17:02 06/06/25 09:44 Diflucan/Ns Ivpb IV 06/12/25 17:01 100 mls/hr QDAY KYA Administration Midazolam HCl 100 mg in 100 mls @ 1 mls/hr 06/05/25 17:43 06/06/25 13:26 Versed Pf Inj In Ns Premix IV 06/10/25 17:42 3 mg/hr .Q24H PRN 3 mls/hr PER PROTOCOL Administration Protocol 1 MG/HR Ibuprofen 200 mg 06/06/25 03:30 06/06/25 03:36 Ibuprofen Susp 100 Mg/5 Ml Udc PO 07/03/25 09:48 200 mg Q6HR PRN Administration FEVER > 101 Lansoprazole 30 mg 05/28/25 09:00 06/06/25 09:44 Lansoprazole 30 Mg Tab.Rap. GT 06/27/25 08:59 30 mg QDAY KYA Administration Levetiracetam 750 mg 05/30/25 09:00 06/06/25 09:49 Levetiracetam Liqd 500 Mg/5 Ml Udc GT 06/29/25 08:59 750 mg BID KYA Administration Midazolam HCl 2 mg 06/05/25 19:05 Midazolam Inj 1 Mg/Ml Vial 2 Ml IVP 06/10/25 19:04 Q1HR PRN AGITATION Clotrimazole 1% 4 drop 06/04/25 14:45 06/06/25 09:47 Topical Solution BOTH EARS 07/04/25 14:44 4 drop BID KYA Administration Ondansetron HCl 4 mg 05/27/25 14:37 Ondansetron Odt 4 Mg Tabrap GT 06/26/25 14:36 Q6HR PRN NAUSEA OR VOMITING Protocol Oxycodone HCl 10 mg 06/03/25 14:00 06/06/25 05:01 Oxycodone Hcl 5 Mg Ir Tab PO 06/08/25 13:59 10 mg TID KYA Administration Phenobarbital 64.8 mg 06/04/25 21:00 06/05/25 20:53 Phenobarbital 32.4 Mg Tablet GT 06/18/25 20:59 64.8 mg HS KYA Administration Polyethylene Glycol 17 gm 05/16/25 09:15 06/06/25 09:55 Polyethylene Glycol 17 Gm Packet PO 06/15/25 09:14 17 gm QDAY KYA Administration Propranolol HCl 10 mg 06/06/25 06:00 06/06/25 05:01 Propranolol 10 Mg Tablet GT 07/06/25 05:59 10 mg TID KYA Administration Quetiapine Fumarate 50 mg 06/06/25 09:00 06/06/25 09:44 Quetiapine Fumarate 25 Mg Tablet GT 07/06/25 08:59 50 mg QDAY KYA Administration Quetiapine Fumarate 100 mg 06/05/25 22:40 06/05/25 22:58 Quetiapine Fumarate 100 Mg Tablet GT 07/05/25 22:39 100 mg HS KYA Administration Sevelamer Carbonate 800 mg 06/06/25 08:00 06/06/25 12:33 Sevelamer Carbonate 800 Mg Tablet PO 07/06/25 07:59 800 mg TIDWM KYA Administration Sodium Chloride 3 ml 05/17/25 11:43 Sodium Chloride Rt Racquel 0.9% 3 Ml Nebu INH 06/16/25 11:42 PRN PRN SOLN Valproic Acid 250 mg 05/27/25 18:00 06/06/25 05:01 Valproic Acid Syrup 250 Mg/5 Ml Udc GT 06/26/25 17:59 250 mg Q8HR KYA Administration Plan Patient is a 25-year-old male with history of cerebral palsy, asthma, seizure disorder, chronic mastoiditis, recurrent pneumonia, and chronic PEG tube dependence presented on 05/08/2025 with fever and seizure, was admitted for sepsis workup, and later transferred to the ICU on 05/09/25 for increased agitation, tachypnea, and increased secretions with recurrent fevers. Was downgraded on 05/31/25 due to resolution of fever for at least 48 hours however was upgraded back on 06/05/25 due to recurrent fevers. Neurology #Agitated delerium #Serotonin Syndrome #Opiate withdrawal ? Still spiking fevers and tachycardic even off medication that can cause serotonin syndrome Dx: - EEG 05/11 unremarkable. Repeat EEG 05/20 showed electrographic seizure activity. Continuous EEG 05/22-05/23: no seizure activity or status epilepticus. - MRI brain 05/23: showed chronic infections, no acute pathology. - 06/06/25: Patient's family imformed us that he was previously on Seroquel 50 mg AM and 100 mg nightly prior to admission. Rx: - Restart Seroquel 50 mg AM and 100 mg HS - Phenobarbital 64.8 mg HS - Oxycodone 10 mg TID - IV Versed drip 1 mg/hr - Versed 3mg prn q1hr for agitation - Neurology consulted, appreciate recommendations. #History of seizures #Cerebral palsy Dx: - EEG 05/11 unremarkable - Repeat EEG 05/20: electrographic seizure activity. - Continuous EEG 05/22-05/23: no seizure activity or status epilepticus. - 06/06/25: On physical exam, noted to have blood dripping out of mouth. Patient appears to be clenching jaw, unable to open. - Persistent fever spikes. Rx: - Levetiracetam 750mg BID. - Valproic acid 250 mg Q8H. - Midazolam for agitation and breakthrough seizure as needed - Seizure precautions. - Aspiration precautions. -Neurology on board, appreciate recs Cardiovascular #Sinus tachycardia DDx: Infectious vs hypersympathetic activity. Dx: - HR 100-120s, as high as 150s previously on telemetry. Associated with fever spikes and tachypnea. Rx: - Propranolol 10 mg 3 times daily for hypersympathetic activity - Continue close cardiac monitoring. - Monitor electrolytes and replete as needed. - Maintain Mg > 2 and K > 4 to reduce arrhythmia risk. Respiratory #Failed extubation 05/12 #Acute hypoxic respiratory failure s/p tracheostomy (05/26/25) Dx: - Reintubated overnight 05/13- VC/AC PPeak 20 PEEP 5 FiO2 40%. - Tracheostomy on 05/26/2025, removed sutures 06/06/25 - Patient underwent bronchoscopy on 05/14 and 05/17 for secretions, well tolerated. - S/p repeat bronchoscopy 06/05. Rx: - Zosyn (06/05- - Chest physiotherapy PRN. RRx: - Meropenem (05/12-05/17, 05/19-05/22, for a total of ten days). #Bronchospasm #History of asthma Rx: - Magnesium for bronchodilator effect as needed. - Albuterol and Ipratropium as needed. GI, , F/E/N #Traumatic partial amputation of tongue Known to have episodes of jaw spasms and teeth clenching with agitation. 06/06/25: Patient bit off tip of tongue likely in setting of agitation and fevers overnight. Jaw continues to be clenched. Rx: - Start on paralytic cistracurium to relax jaw - Will increase Versed for sedation of RASS -4, will not start new sedative to avoid complicating his current condition and possibly inducing serotonin syndrome like previously during this admission. - Place Surgicel on end of tongue to control bleeding - Hold anticoagulation in setting of active bleed RRx: -If bleeding controlled by tomorrow, discontinue paralytic -Consider placing bite-block to avoid repeat events #Chronic PEG tube dependence Patient has history of cerebral palsy. Rx: - Nepro 1.8 Cl 1 L RTH at 35 ml/hr x 24 hrs via PEG tube by pump (goal). If no IV fluids, continue water flushes of 55 ml/hr. RRx: - Previously on Jevity 1.5 but switched on 05/31 due to hyperphosphatemia, concerned this may have been a contributing factor #Hepatitis (improving) DDx: Likely due to meropenem or tylenol that could potentially cause hepatotoxicity. Dx: - Gallbladder ultrasound 05/16: Normal gallbladder, no gallstones. Fatty infiltration throughout the liver. - AST, ALT, alk phos continue to be elevated but improving. Rx: - Continue daily LFTs. - Will reassess if transaminases continue to rise or clinical status changes. #Acute urinary retention (resolved) Rx: - Monitor urine output, replace fluid if needed. - Hawkins removed 05/23 - Every 4 hour bladder scan and straight cath as needed for >400cc. #Hypoalbuminemia (resolved) #Paraphimosis (resolved) #Balanitis (resolved) #Phimosis Dx: - Edema and tenderness of the glans penis. - Swelling of the distal retracted foreskin. - Constricting band of tissue proximal to the head of the penis at the coronal sulcus. - Hawkins was removed on 05/09 and transitioned to Oivi external urinary catheter. Discussed with family about the need to reinsert hawkins due to the patient's acute urinary retention. Family were in agreement with this plan. Hawkins was reinserted on 05/10 due to urinary retention. Hawkins changed and replaced on 05/16. - S/p reduction of the paraphimosis by Dr. Vargas on 05/09. - 05/29/2025 Patient noticed to have unretractable foreskin but continues to have good urine output Rx: - Spoke with urologist Dr. Alicia, will assess on Friday 06/08 - Control patient's pain with sedation. - Monitor urine output. - Every 4 hour bladder scan and straight cath as needed for >400cc. Renal #Hyperkalemia (resolved) - Continue to monitor #Hyperphosphatemia DDx: increased osteoblastic activity in setting of vegetative state, bone infection (particularly of left mastoid), hypoparathyroidism Dx: - PTH intact low at 3.6, calcium 9.9, vitamin D 25-OH 18.1 - Renal function intact, at baseline - In light of recurrent fevers and persistently elevated phosphate levels, ordered bone scan 06/06 to assess osteoblast activity and to rule out potential bone infection Rx: - Restart sevelamer 800 mg TID as phosphorus beginning to increase - Follow up urine calcium and electrolytes - Follow up bone scan results #Acute kidney injury (resolved) DDx: ATN secondary to sepsis, dehydration Dx: - Creatinine 1.3 on admission in 05/08, improved back to baseline of 0.6-1.0. Rx: - Avoid nephrotoxins. - Renally dose meds - Strict I&Os - Monitor for signs of volume overload or uremic symptoms #Anion Gap Metabolic Acidosis (resolved) #Lactic acidosis (resolved) Dx: - Lactic 1.6 and bicarb was 27.6 on 06/05 Rx: - Continue to monitor #Rhabdomyolysis (stable) Dx: - Patient is bedbound so will likely always be elevated - CK 06/06 182, improved from admission (as high as 3000s). - Previously as low as 170s in 10/2023 Rx: - Back to baseline Heme #Acute nonocclusive thrombus in the left brachial vein Dx: - Venous doppler study of upper extremities 05/16: Normal right upper extremity deep venous system. Positive for nonocclusive thrombus in the left brachial vein. - Per chart review and patient's parents, patient does not have history of clots. Treatment Review (completed): - Lovenox 30 mg (05-11 - 05/15). - Lovenox 40 mg (05/16). - Heparin loading dose and ggt. Lovenox to heparin due to heparin?s shorter half-life, which allows for more rapid cessation in the event of bleeding, a shorter half life and can be stopped if bleeding occurs. - Stopped heparin ggt due to hematuria on 05/18. - Restarted Lovenox 05/31 for tx of primary upper extremity deep vein thrombosis, anticoagulation should be continued for a minimum of three months following the initial thrombotic event. Rx: - Hold Lovenox 70 mg SC BID in light of bleeding tongue (05/31-06/06) #Normocytic Anemia DDx: Anemia of Inflammation vs dilutional anemia vs drug-induced anemia. Likely dilutional anemia since patient had normal hemoglobin on admission and from IV fluids per sepsis protocol. Dx: - No signs of active GI bleeding. Rx: - Monitor H&H. - Type and screen. - Transfusing for Hgb <7 or symptomatic. #Leukocytosis DDx: Likely infectious versus reactive Dx: - Restarted spiking intermittent fevers on 06/02, controlled and then increased again on 06/04 leading up to ICU upgrade -Patient has had extensive treatment with antibiotics for multiple infections including UTI, Pseudomonas pneumonia in setting of tracheostomy, bilateral otitis externa. - WBC 12.3 (06/05) -> 23.2 - Patient also has history of seizures Rx: - Treat underlying cause. - Abx and seizure regimen as above #Thrombocytopenia (resolved) #Thrombocytosis (Resolved) Endo #no active problems ID #Sepsis #Bilateral chronic mastoiditis #Sinusitis #Bilateral otitis media #Bilateral otitis externa #Brittney parapsilosis #UTI, ESBL E. coli #Pseudomonas aeruginosa sputum DDx: acute on chronic mastoiditis vs acute febrile illness. Dx: - History of chronic mastoiditis. - Previously required I&D of right mastoiditis per family many years ago at [facility] - 05/08 CT Head: prominent sphenoid ethmoid maxillary antral sinusitis, bilateral chronic mastoiditis, bilateral otitis media. - 05/08 CT Orbit Sella Inner: severe bilateral chronic mastoiditis, bilateral otitis externa and otitis media, bilateral cholesteatomas in the attics. - 05/09 Sputum culture: 1+ thurman resistance Pseudomonas. - 05/10 Lumbar puncture: clear, WBC 3, glucose 70, total protein 25. CSF testing negative. - 05/10 Respiratory viral panel: rhinovirus/enterovirus and human metapneumovirus detected. - 05/12 Bilateral ear culture: E coli ESBL. - UA 05/08 and 05/16 negative. - Blood culture 05/08, 05/11, and 05/16 negative. - 05/16 CXR: worsening diffuse severe left lung pneumonia. - Brittney parapsilosis in L ear culture ? Urine culture grew ESBL E. coli on 06/01/2025 ? Pseudomonas aeruginosa on sputum on 06/01/2025 Rx: - Zosyn for ESBL UTI and Pseudomonas on sputum culture (06/05- ) and fluconazole (06/05- ? Acetic acid drops twice daily - Clotrimazole 1% topical solution 4 drops twice daily (06/04- - Follow up repeat blood cultures and beta D glucan 06/05 - ID consulted, appreciate recommendations RRx: IV Zosyn 3.375g x1 (at 05/08) IV Ceftriaxone 1g x1 (at 05/08) IV Acyclovir 640mg q8hr (05/08-05/11) since LP negative. IV Ceftriaxone 2g q12hr (05/08-05/11) IV Vancomycin qd (05/08-05/11) since MRSA screen is negative Ofloxacin Opt racquel 0.3% 5 drops Both ears bid (05/09-05/18, 05/21-05/31) IV Meropenem 1000mg q8hr (05/12-05/22, 05/24-05/25) IV Doxycycline (05/16-05/18) IV Micafungin 100mg qd (05/28-05/30, 06/01-06/03) Ciprofloxacin Op Racquel 0.3% ear drops (06/02-06/03) Health Maintenance DVT prophylaxis: SCDs, Lovenox 70mg BID GI prophylaxis: Prevacid Diet: Nepro Hawkins: none. Straight cath in/out q4h if urine retention more than 400 ml Lines: Peripherals, PEG tube. Drips: Versed Code status: Full code Patient plan of care was discussed with the senior resident, Dr. Alvarez, and attending physician, Dr. Armendariz . Mary Lou Cobb DO, PGY-1 Attending Provider Attestation/Addendum Patient seen and examined with above resident, Mary Lou Cobb DO. I agree with the findings, assessment, and plan of care as document except for any differences below. Patient with last fever at home 300 this morning. Ibuprofen was given at that time but he has not had recurrence of fever or throughout the day. Antibiotics were restarted with adequate coverage for fungal as well as previous known organisms including Pseudomonas and ESBL within the urinary tract infection. Given the patient's continued fevers alternate etiologies including indeterminate infection to be considered. Procalcitonin was negative suggesting against any systemic process but local inflammatory lesion or infection could still precipitate systemic fever. Patient's Phos continues to be elevated despite resuming dilution of renal dysfunction throughout the course of this hospitalization. He remains with adequate urine output and no other major electrolyte abnormalities including normal calcium. We did send PTH which was low however calcium remains normal pointing against significant hyperparathyroidism but this could explain the hyperphosphatemia. Alternatively significant bone turnover as evidenced by chronically elevated alk phos with another consideration. We will send for nuclear med bone scan today to exclude presence of osteomyelitis that has yet to be revealed. Will follow-up on the above testing determine if biopsy is warranted for definitive diagnosis prior to determining duration of treatment and antibiotic regimen. Patient with previous history of mastoiditis as well and this may also show high turnover of the bone is now infected. Patient remains stable on lung protective mechanical ventilation with tidal volume adjusted overnight appropriately. Gas exchange otherwise remained stable. Patient has been resumed on tube feeds and remains hemodynamically stable. Patient's mother was updated by myself at bedside in [place] and with turf farmer both mother and father were updated by telephone by senior resident. They understandably remain frustrated given the continued struggle that David has been having throughout this hospital course though he had shown signs of significant improvement was able to be transferred to telemetry previously. Will continue to scholarship counselor the extensively on ongoing management and they remain informed on ongoing decision making by medical team. Patient also today had significant oral bleeding, we did stop Lovenox as he may have been restarted. Will paralyze when adequately sedated so that we can assess the oral cavity for source and apply topical therapy including with Surgicel to achieve hemostasis. Total critical care time: I personally spent 40 minutes for review of physiologic parameters, directing plan of care throughout the day, coordination of care, and counseling patient's family at bedside. This is exclusive of time spent teaching on staff performing separate billable procedures. The patient remains at significant risk for further morbidity and mortality warranting close monitoring care only available in ICU. Critical care services required for acute on chronic hypoxic respiratory failure, fever of unknown origin, hypoparathyroidism/hyperphosphatemia, chronic mastoiditis/otitis, possible ventilator associated pneumonia.
[2025-06-06 14:23] LABS: Creatine Kinase 182 U/L (34-171)
[2025-06-06] MEDS: MIDAZOLAM INJ 1 MG/ML VIAL 2 ML 2 MG IVP (14:55)
--- NOTE | 2025-06-06 15:58 | EVENTNT_ITS ---
Documentation for date of: 06/06/25 Event Note Event Note: At around 3:15 PM this afternoon called epic application coordinator service and spoke with Juliano, ID number [id number], and asked to speak with patient's family including mom and dad via phone call with junior graphic designer services. Spoke with patient's father and mother who are both present at the time of the conversation for around 45 minutes in totality. Provided updates on the patient's current condition and that Seroquel was started and that patient's heart rate did improve this morning and also that he had been fever free since earlier today around 4 AM. Patient's family was concerned that patient was not getting appropriate care as it was also forward to them that he had probably bitten his tongue or his loose teeth was bleeding. They stated that patient does not open his mouth at home and that they were concerned that they were sticking suctioning tubes into his mouth to suction his secretions and that they did not want that to happen anymore. They also stated that they felt that the patient was not being treated for his depression and anxiety which he gets medications at home and that he is normally free to move around at home and that having him tied down has made him more agitated and anxious. I stated that this time they can bring all the medications to our hospital so that we can verify the medications and start medications that seem appropriate at the time. They stated that they would be agreeable to bring all the medications. Also due to the patient's that he was seen by ENT and that it was stated that this time he did not require any surgical intervention and they did not he had acute mastoiditis at this time and only recommended clotrimazole eardrops and acetic acid drops as well. They were also informed that we were thinking still that the mastoiditis was likely the cause of patient's fevers and that we are kevyn do a bone scan in order to see if there was bone involvement in the temporal region where the mastoiditis is as they had stated that previously he did had debridement of the right mastoid area. All other questions were adequately answered and they did understand the reasoning behind the continuous imaging and antibiotics that were given. Afterwards around 4:30 PM again called patient's family with the use of junior graphic designer Miesha, ID number [id number], to inform the patient's father and mother who are present at the time that patient is affected by his time and that he did bite the tip of his tongue and that there was active bleeding, even though it was not profusely bleeding we would need to paralyze the patient at this time in order to successfully open his mouth and stop the bleeding as patient had a clenched jaw. Also explained to them that patient was on anticoagulation for his upper extremity DVT as well as his DVT prophylaxis. They were understanding and were agreeable to start the patient on a paralytic at this time in order to open his mouth successfully place Surgicel to help control the bleeding. They did not have any questions at this time and it was explained to them that it was likely in the patient's agitation versus him trying to clear out secretions from his throat given that he does have a tracheostomy he open his mouth and probably bit the tip of his tongue. They were understanding of this and were appreciative and stated that we could proceed with anything we needed at this time. Case disclosed with Attending Dr. Marcello Easton PGY2 Disclaimer: Even though this this note was dictated by speech recognition and even though it was carefully revised there may still be minor errors in lock technician due to voice recognition software.
--- NOTE | 2025-06-06 17:36 | XR_ITS ---
Examination: Knee, left, 3 views Technique: Knee AP, lateral, oblique 3 views Date and time of exam: June 06, 2025, 1554 hours INDICATIONS: Positive nuclear medicine bone scan increased uptake mid tibia FINDINGS: No fracture or dislocation Mild tricompartment osteoarthritis. 14 mm suprapatellar ossified joint body No osseous metastatic disease noted IMPRESSION: No osseous metastatic disease noted
--- NOTE | 2025-06-06 17:36 | XR_ITS ---
Examination: Tibia-Fibula, left, 2 views Technique: Tibia-fibula AP lateral 2 views Date and time of exam: June 06, 2025, 1750 hours INDICATIONS: Nuclear medicine bone scan today mildly increased uptake mid tibia FINDINGS: Adequate bone density. No fracture or dislocation. No osseous metastatic disease depicted IMPRESSION: No findings diagnostic for osseous metastatic disease
[2025-06-06] MEDS: CISATRACURIUM INJ 200 MG in SODIUM CHLORIDE 0.9% 500 ML 500 ML 10.749 MG IV (19:55)
[2025-06-06] MEDS: LIDOCAINE 1% W/EPI 1:100K 20 ML VIAL INFL (21:20)
--- NOTE | 2025-06-06 21:26 | EVENTNT_ITS ---
Documentation for date of: 06/06/25 Event Note Event Note: Saline washing and Lidocaine-Epinephrine injection for Gum Bleeding around central and lateral incisor In the presence of RN, Anthony and Charge nurse, Aleida and buckle and button maker Dr Armendariz, after giving bolus of nimbex and starting nimbex drip with deep sedation with Versed RAAS goal -4, Patients' mouth was opened and cleaned with saline wash and suctioning to locate source of bleeding. Blood clots inside mouth were removed. Bleeding around tongue stopped but the gum bleeding around central and lateral incisor was oozing excessively. There was a large hematoma seen underneath the central incisior. Lidocaine-epinephrine 2 cc was injected with the help of 25 G needle twice as blood was still oozing out from the gums and underneath huge hematoma formation under the central incsior. Surgicel was placed around the upper teeth to cover hematoma and upper gums with pressure guaze in the upper part and lower part to make a good pressure to control bleeding. Surgicel was replaced once as it got soaked after the first injection with lidocaine-epi. We will closely monitor pressure guaze and will replaced if soaked. In the morning, rec to wash the mouth with saline while taking out the surgicel and replacing it if gum bleeding still noted. Mother was present at the bedside and was explained everything. Proceedure was performed under supervision of buckle and button maker Dr Marcello Orozco MD PGY-3
[2025-06-07] VITALS (34 sets, daily range): BP systolic 100–142; BP diastolic 57–97; PULSE 86–147; RESP 15–29; TEMP 36.1–38.5; O2SAT 93–100
[2025-06-07] MEDS: oxyCODONE HCL 5 MG IR TAB 10 MG PO ×3 (05:17→22:09)
[2025-06-07] MEDS: PROPRANOLOL 10 MG TABLET GT ×3 (05:17→22:09)
[2025-06-07] MEDS: VALPROIC ACID SYRUP 250 MG/5 ML UDC GT ×3 (05:18→22:09)
[2025-06-07] MEDS: PIPER/TAZO INJ 4.5 GM in SODIUM CHLORIDE 0.9% (POP) 100 ML IV ×3 (05:19→22:08)
[2025-06-07 06:10] LABS: Alanine Aminotransferase 27 U/L (10-49); Albumin, Serum 3.7 gm/dL (3.5-5.0); Albumin/Globulin Ratio 1.6 (1.2-2.2); Alkaline Phosphatase 161 U/L (46-116); Anion Gap 14 (7-16); Aspartate Amino Transferase 24 U/L (0-34); BUN/Creatinine Ratio 18 Ratio (12-20); Bilirubin,Total 0.3 mg/dL (0.3-1.2); Blood Urea Nitrogen 9 mg/dL (9-23); Calcium 9.7 mg/dL (8.3-10.6); Calcium (Corrected) 9.9 mg/dL (8.5-10.1); Carbon Dioxide 24.8 mMol/L (20.0-31.0); Chloride 104 mMol/L (98-107); Creatinine (Component) 0.5 mg/dL (0.6-1.3); Estimated Creatinine Clearance 179.5 mL/min (>60); Globulin 2.3 gm/dL (2.3-3.5); Glucose 82 mg/dL (74-106); Magnesium 1.6 mg/dL (1.6-2.6); Osmolality,Calculated 282 (275-295); Phosphorous 8.3 mg/dL (2.4-5.1); Potassium 3.8 mMol/L (3.4-5.1); Sodium 143 mMol/L (136-145); Total Protein 6.0 gm/dL (5.7-8.2); eGFR > 60 See Note
[2025-06-07 06:38] LABS: Basophils # (Auto) 0.0 Thou/mm3 (0.0-0.2); Basophils % (Auto) 0 % (0-2.5); Eosinophils # (Auto) 0.4 Thou/mm3 (0.0-0.5); Eosinophils % (Auto) 5 % (0-10); Hematocrit 30.2 % (41.0-53.0); Hemoglobin 9.4 g/dL (13.5-16.0); Immature Granulocytes Auto 0.05 Thou/mm3 (0.00-0.00); Lymphocytes # (Auto) 1.2 Thou/mm3 (1.0-4.8); Lymphocytes % (Auto) 14 % (10-50); Mean Corpuscular HGB Conc 31.1 g/dl (31.0-37.0); Mean Corpuscular Hemoglobin 27.2 pg (25.0-35.0); Mean Corpuscular Volume 87 fL (80-100); Monocytes # (Auto) 1.2 Thou/mm3 (0.0-0.8); Monocytes % (Auto) 14 % (0-12); Neutrophils # (Auto) 5.8 Thou/mm3 (1.8-7.7); Neutrophils % (Auto) 66 % (37-80); Nucleated Red Blood Cell # 0.00 Thou/mm3 (0.00-0.00); Nucleated Red Blood Cell % 0 /100 WBC (0); Platelet Count 277 Thou/mm3 (140-440); RDW Standard Deviation 51.3 fL (35.1-43.9); Red Blood Count 3.46 Miln/mm3 (4.50-5.90); White Blood Count 8.7 Thou/mm3 (3.8-10.6)
--- NOTE | 2025-06-07 07:40 | XR_ITS ---
EXAMINATION: AP chest single view TECHNIQUE: Supine portable AP chest single view Date and time: June 07, 2025, 0757 hours, comparison June 05, 2025 INDICATIONS: Ventricular asynchrony FINDINGS: Pneumonia left base with possible pleural fluid Normal heart size Reduced inspiratory effort Endotracheal tube tip 2.3 cm above haresh IMPRESSION: Significant pneumonia left base
[2025-06-07] MEDS: MIDAZOLAM/NS 100 MG IVPB 100 MG/100 ML BAG 7 MG IV ×2 (08:30→22:22)
[2025-06-07] MEDS: Magnesium Sulfate 4 GM Ivpb 4 GM/50 ML BAG IV (08:43)
[2025-06-07] MEDS: SEVELAMER CARBONATE 800 MG TABLET PO ×3 (08:43→17:28)
[2025-06-07] MEDS: levETIRAcetam LIQD 500 MG/5 ML UDC 750 MG GT ×2 (08:53→20:06)
[2025-06-07] MEDS: Acetic Acid Irrig 0.25% 500 ML BTL 250 ML IRRIG ×2 (09:00→20:06)
[2025-06-07] MEDS: POLYETHYLENE GLYCOL 17 GM PACKET PO (09:01)
[2025-06-07] MEDS: LANSOPRAZOLE 30 MG TAB.RAP.DR GT (09:01)
--- NOTE | 2025-06-07 10:09 | ESPR_ITS ---
<Statement entered by Jeanine Baeza MD - 06/09/25 08:32> TOTAL TIME: 45MINUTES ON DIRECT MEDICAL CARE, MANAGEMENT - COORDINATION AND COUNSELING > 50% OF TOTAL TIME I saw and evaluated the patient. I reviewed the resident?s note and agree with findings and plan as documented in the resident?s note. cleared mucus plug w/ therepeutic bronch cont'ng treatment for pseudomonas started TFs low grade fever no changes on PE to suggest new source still leading ddx recurring pna cont full support - f/u w/ ENT and ortho given bone scan results Documentation for date of: 06/07/25 Subjective Subjective Interval history: 25-year-old male with cerebral palsy, asthma, seizure disorder, chronic mastoiditis, recurrent pneumonia, and chronic PEG tube dependence presented with fever and seizure, was admitted for sepsis workup, and later transferred to the ICU on 05/09/2025 where he underwent intubation and eventually underwent tracheostomy due to not being able to take off mechanical ventilator and increased accretions. Patient had a prolonged ICU stay until 05/31/2025 when he was downgraded back to the medical floors that his fever had subsided after medications which could have caused several changes and then were discontinued. Patient in the ICU received multiple full treatments with antibiotics including meropenem and got a bronchoscopy throughout the ICU stay. Once patient was downgraded to the medical floors on 06/01/2025 patient spiked a fever of 101.8 and was more tachycardic. IV fluids were given at this time and Versed pushes were also given for agitation. Hospitalist team then repeated blood cultures and urine cultures as well as sputum cultures. Patient sputum culture on 06/01/2025 did grow Pseudomonas aeruginosa sensitive to Zosyn and his urine did grow ESBL E. coli which was sensitive to Zosyn as well. Patient was also seen on 06/03/2025 by ENT and recommended acetic acid irrigations to the left ear with clotrimazole or VoSol drops twice daily for 10 days and also stated no need for surgical intervention for mastoiditis at this time. Even on recommendations by ENT and after starting fluconazole as well as Zosyn on 06/05/2025 patient still spiking fevers and today his heart was in the 160s and he was very tachypneic. On assessment patient was noted to have increased respiratory rate, was diaphoretic, and seemed in significant discomfort and was agitated. At this time patient was transferred to the ICU for further level care given fever of unclear etiology and increased agitation as well as breathing over the vent. 06/06/25: Patient seen and assessed at bedside. Was informed by family overnight that patient was previously on Seroquel 50 mg every morning as well as 100 mg nightly for agitation prior to admission. Restarted last night. Continued to have fevers (highest at 101.4F), resolved after 4AM. Tachycardia also resolved around the same time. Continues to be afebrile. On physical exam, noted to have bitten off the tip of his tongue, likely in setting of agitation overnight. Held Lovenox in setting of new active bleed. Will start on paralytic cistracurium to relax jaw and Surgicel bleeding site. Will increase Versed for sedation of RASS -4, will not start new sedative to avoid complicating his current condition and possibly inducing serotonin syndrome like previously during this admission. On labs, WBC continues to uptrend and phosphate slowly increasing. Restarted on sevelamer. Ordered bone scan to evaluate osteoblast activity (which may also be contributing to patient's recurrent fevers) and other potential sources of bone infection. Magnesium 1.7, repleted with IV mag sulfate 4g. Patient's family was updated via phone with director of home economics present of patient's current condition including tongue laceration. Notified them of current plan of action including need for paralytic at this time, they were agreeable to plan. Continue Zosyn, fluconazole, and clotrimazole ear drops. 06/07/2025: Overnight patient required injections of lidocaine epi injections to control gum bleeding, overnight had ventilator asynchrony and patient's ventilator mode was switched to ACMV with PRVC to improve tidal volume. Chest x-ray obtained this morning shows left base consolidation, consent for bronchoscopy obtained from family. Patient on Nimbex and Versed drip, bronchoscopy revealed large mucous plug left lower lobe, patient switched to volume control after. Weaned off of Nimbex, currently on Versed with RASS goal -4 will down titrate Versed as tolerated. Oral packing which was placed overnight was removed, no signs of active bleeding. Patient will be evaluated by ENT, urology in AM. Exam Vital Signs Temp Pulse Resp BP Pulse Ox O2 Del Method O2 Flow Rate 97.6 F 86 15 114/63 100 Mechanical Ventilation 35 06/07/25 04:00 06/07/25 06:31 06/07/25 06:31 06/07/25 06:27 06/07/25 06:31 06/06/25 04:00 06/05/25 16:00 FiO2 45 06/07/25 06:31 Narrative Exam Physical Exam General: Sedated, paralyzed and trached. HEENT: NCAT, EOMI, Pupils reactive KARLO, not icteric. Cauliflower ears noted. No rhinorrhea. Moist mucous membranes. Dried blood on lips. Neck: Supple, full range of motion, no observable masses, No meningeal sign. Heart: Regular rate and rhythm, normal S1 and S2, no murmurs appreciated. Lungs: Coarse breath sounds bilaterally, on mechanical ventilation. Abdomen: Soft, nondistended, nontender, positive bowel sounds. No guarding or rebound tenderness. PEG tube in place. MSK: No lower extremity edema no redness, peripheral pulses presents, Contracted and swollen hands. Decreased tone noted. Neurologic: Currently sedated and paralyzed, pupils reactive bilaterally. Skin: No petechiae, lesions, ecchymosis. Swelling in right upper arm has resolved, minimal erythema. Objective Labs 06/07/25 06:18 06/07/25 04:40 Labs: Laboratory Results - last 24 hr 06/06/25 06/07/25 06/07/25 09:34 04:40 06:18 WBC 8.7 D RBC 3.46 L Hgb 9.4 L Hct 30.2 L MCV 87 MCH 27.2 MCHC 31.1 RDW Std Deviation 51.3 H Plt Count 277 D Neut % (Auto) 66 Lymph % (Auto) 14 [place] % (Auto) 14 H Eos % (Auto) 5 Baso % (Auto) 0 Neut # (Auto) 5.8 Lymph # (Auto) 1.2 [place] # (Auto) 1.2 H Eos # (Auto) 0.4 Baso # (Auto) 0.0 Immature Gran # (Auto) 0.05 H Absolute Nucleated RBC 0.00 Immature Gran % 1 H Nucleated RBC % 0 Sodium 143 Potassium 3.8 D Chloride 104 Carbon Dioxide 24.8 Anion Gap 14 BUN 9 Creatinine 0.5 L Estim Creat Clear Calc 179.5 eGFR > 60 BUN/Creatinine Ratio 18 Glucose 82 Calculated Osmolality 282 Calcium 9.7 Corrected Calcium 9.9 Phosphorus 8.3 H Magnesium 1.6 Total Bilirubin 0.3 AST 24 ALT 27 Alkaline Phosphatase 161 H D Total Creatine Kinase 182 H D Total Protein 6.0 Albumin 3.7 D Globulin 2.3 Albumin/Globulin Ratio 1.6 25-OH Vitamin D Total 18.1 PTH Intact 3.6 L ABG Interpretation ABG results: 05/09/25 05/09/25 05/09/25 11:56 13:40 18:50 ABG pH 7.40 7.27 L D 7.28 L ABG pCO2 40 43 55 H D ABG pO2 131 H 53 L* D 70 L ABG HCO3 25 20 26 ABG O2 Saturation 99 H 81 L 92 ABG Base Excess 0 -7 L -2 VBG pH VBG pCO2 VBG pO2 VBG Base Excess 05/10/25 05/11/25 05/12/25 00:14 05:06 01:18 ABG pH 7.35 7.33 L 7.39 ABG pCO2 42 D 54 H D 48 ABG pO2 103 D 93 94 ABG HCO3 23 28 H 29 H ABG O2 Saturation 99 H 98 98 ABG Base Excess -3 2 3 VBG pH VBG pCO2 VBG pO2 VBG Base Excess 05/12/25 05/12/25 05/13/25 03:58 11:50 05:10 ABG pH 7.46 H 7.39 7.19 L* D ABG pCO2 41 48 60 H D ABG pO2 105 58 L* D 114 H D ABG HCO3 29 H 29 H 23 ABG O2 Saturation 99 H 90 L 98 ABG Base Excess 5 H 4 H -6 L VBG pH VBG pCO2 VBG pO2 VBG Base Excess 05/17/25 05/18/25 05/19/25 01:30 04:09 04:43 ABG pH 7.38 7.43 7.47 H ABG pCO2 46 44 43 ABG pO2 90 83 80 L ABG HCO3 27 H 29 H 31 H ABG O2 Saturation 98 97 97 ABG Base Excess 2 5 H 7 H VBG pH VBG pCO2 VBG pO2 VBG Base Excess 05/21/25 05/21/25 05/31/25 04:18 06:33 08:06 ABG pH 7.37 D 7.46 H ABG pCO2 50 H 38 D ABG pO2 40 L* D 121 H D ABG HCO3 29 H 27 H ABG O2 Saturation 66 L 100 H ABG Base Excess 3 3 VBG pH 7.55 VBG pCO2 31 L VBG pO2 144 H VBG Base Excess 5 H 06/05/25 06/05/25 06/06/25 13:37 23:46 05:20 ABG pH 7.47 H 7.45 ABG pCO2 35 38 ABG pO2 200 H 54 L* D ABG HCO3 25 26 ABG O2 Saturation 101 H 89 L ABG Base Excess 2 2 VBG pH 7.50 VBG pCO2 34 L VBG pO2 90 H VBG Base Excess 4 H Quality Measures Quality Measures VTE prophylaxis (SCDs) and sepsis Current suspected stage: ruled out Possible source: pulmonary Blood cultures ordered: yes Antibiotic ordered: Yes Assessment & Plan Assessment Current Active Medications: Generic Name Dose Route Start Last Admin Trade Name Freq PRN Reason Stop Dose Admin Acetic Acid 250 ml 06/03/25 21:00 06/06/25 21:17 Acetic Acid Irrig 0.25% 500 Ml Btl IRRIG 07/03/25 20:59 250 ml BID KYA Administration Albuterol/Ipratropium 3 ml 05/09/25 18:19 05/28/25 06:34 Albuterol/Ipratropium (Duoneb) Rt Racquel 3 Ml Nebu INH 06/08/25 18:18 3 ml Q2HR PRN Administration SHORTNESS OF BREATH OR WHEEZE Enoxaparin Sodium 70 mg 05/30/25 21:00 06/06/25 09:44 Enoxaparin Sod Inj 80 Mg/0.8 Ml Syringe SC 06/13/25 20:59 70 mg On Hold: 06/06/25 15:49 BID KYA Administration Ferrous Sulfate 325 mg 06/01/25 09:00 06/07/25 09:00 Ferrous Sulfate 300 Mg/5 Ml Udc PO 07/01/25 08:59 325 mg QOD KYA Administration Piperacillin Sod/Tazobactam 100 mls @ 200 mls/hr 06/05/25 14:00 06/07/25 05:19 Sod 4.5 gm/ Sodium Chloride IV 06/12/25 13:59 200 mls/hr Q8HR KYA Administration Protocol Cisatracurium Besylate 200 mg/ 520 mls @ 10.749 mls/hr 06/06/25 17:04 06/07/25 06:00 Sodium Chloride IV 07/06/25 16:40 3 mcg/kg/min .Q24H PRN 32.246 mls/hr Per Protocol Titration Protocol 1 MCG/KG/MIN Midazolam HCl 100 mg in 100 mls @ 1 mls/hr 06/07/25 00:31 Versed Pf Inj In Ns Premix IV 06/10/25 17:42 .Q24H PRN PER PROTOCOL Protocol 1 MG/HR Magnesium Sulfate 4 gm in 50 mls @ 12.5 mls/hr 06/07/25 06:23 06/07/25 08:43 Magnesium Sulfate Ivpb IV 06/07/25 10:22 12.5 mls/hr X1 ONE Administration Ibuprofen 200 mg 06/06/25 03:30 06/06/25 03:36 Ibuprofen Susp 100 Mg/5 Ml Udc PO 07/03/25 09:48 200 mg Q6HR PRN Administration FEVER > 101 Lansoprazole 30 mg 05/28/25 09:00 06/07/25 09:01 Lansoprazole 30 Mg Tab.Rap. GT 06/27/25 08:59 30 mg QDAY KYA Administration Levetiracetam 750 mg 05/30/25 09:00 06/07/25 08:53 Levetiracetam Liqd 500 Mg/5 Ml Udc GT 06/29/25 08:59 750 mg BID KYA Administration Clotrimazole 1% 4 drop 06/04/25 14:45 06/06/25 21:31 Topical Solution BOTH EARS 07/04/25 14:44 4 drop BID KYA Administration Ondansetron HCl 4 mg 05/27/25 14:37 Ondansetron Odt 4 Mg Tabrap GT 06/26/25 14:36 Q6HR PRN NAUSEA OR VOMITING Protocol Oxycodone HCl 10 mg 06/03/25 14:00 06/07/25 05:17 Oxycodone Hcl 5 Mg Ir Tab PO 06/08/25 13:59 10 mg TID KYA Administration Phenobarbital 64.8 mg 06/04/25 21:00 06/06/25 21:21 Phenobarbital 32.4 Mg Tablet GT 06/18/25 20:59 64.8 mg HS KYA Administration Polyethylene Glycol 17 gm 05/16/25 09:15 06/07/25 09:01 Polyethylene Glycol 17 Gm Packet PO 06/15/25 09:14 17 gm QDAY KYA Administration Propranolol HCl 10 mg 06/06/25 06:00 06/07/25 05:17 Propranolol 10 Mg Tablet GT 07/06/25 05:59 10 mg TID KYA Administration Quetiapine Fumarate 50 mg 06/06/25 09:00 06/07/25 09:01 Quetiapine Fumarate 25 Mg Tablet GT 07/06/25 08:59 50 mg QDAY KYA Administration Quetiapine Fumarate 100 mg 06/05/25 22:40 06/06/25 21:21 Quetiapine Fumarate 100 Mg Tablet GT 07/05/25 22:39 100 mg HS KYA Administration Sevelamer Carbonate 800 mg 06/06/25 08:00 06/07/25 08:43 Sevelamer Carbonate 800 Mg Tablet PO 07/06/25 07:59 800 mg TIDWM KYA Administration Sodium Chloride 3 ml 05/17/25 11:43 Sodium Chloride Rt Racquel 0.9% 3 Ml Nebu INH 06/16/25 11:42 PRN PRN SOLN Valproic Acid 250 mg 05/27/25 18:00 06/07/25 05:18 Valproic Acid Syrup 250 Mg/5 Ml Udc GT 06/26/25 17:59 250 mg Q8HR KYA Administration Plan Assessment and plan: Summary: Mr. Baltazar is a 25-year-old male with history of cerebral palsy, asthma, seizure disorder, chronic mastoiditis, recurrent pneumonia, and chronic PEG tube dependence presented on 05/08/2025 with fever and seizure, was admitted for sepsis workup, and later transferred to the ICU on 05/09/25 for increased agitation, tachypnea, and increased secretions with recurrent fevers. Was downgraded on 05/31/25 due to resolution of fever for at least 48 hours however was upgraded back on 06/05/25 due to increased work of breathing, ventilator asynchrony agitation and fever. Neurological #Agitation #Sedated and paralyzed Differential diagnosis: ICU acquired delirium, opiate withdrawal, delirium Diagnostic workup: - Patient was weaned off of sedation and was downgraded to telemetry, however as sedatives were down titrated and telemetry patient had episode of severe agitation and ventilator asynchrony and was upgraded to ICU for further intervention. - EEG 05/11 unremarkable. Repeat EEG 05/20 showed electrographic seizure activity. Continuous EEG 05/22-05/23: no seizure activity or status epilepticus. - MRI brain 05/23: showed chronic infections, no acute pathology. Treatment: -Cisatracurium gtt. -Versed drip -Continue Seroquel 50 mg every morning and 100 mg at bedtime -Phenobarbital 64.8 mg at bedtime -Oxycodone 10 mg 3 times daily Follow-up: - Down titrate and discontinue cisatracurium - Down titrate Versed drip, currently on RASS -4, down titrate as tolerated - Use Versed pushes as needed #Seizure disorder by history #Cerebral palsy by history Diagnostic workup: - Active seizure disorder ruled out, multiple EEGs negative for seizure activity Treatment: -Continue Depakote 250 mg GT every 8 hours and Keppra 750 mg GT twice daily Follow-up: -Pending EEG results from 06/05/2025 Cardiology #Sinus tachycardia Differential diagnosis: Infection, hypersympathetic activity Diagnostic workup: -Did have positive sputum and urine culture for Pseudomonas and ESBL respectively -Patient's last fever was 06/06/2025 04:36 -Echocardiogram was obtained to rule out any vegetations TTE shows normal systolic function, EF 55 to 60%, diastolic dysfunction grade 1, no evidence of vegetation or endocarditis Treatment: -Continue propranolol 10 mg 3 times daily -Continue antibiotics Follow-up: -Monitor for fever, use ibuprofen as needed for fever episode -Telemetry monitoring Pulmonary #Left lower lobe mucous plug Diagnostic workup: - Chest x-ray obtained 06/07 AM, showed a left lower lobe consolidation, ddx left lower lobe pneumonia versus mucous plug versus left pleural effusion versus mucous plug versus atelectasis lung ultrasound at bedside, effusion ruled out, no hepatization of the lung noted. Consent obtained from family for bronchoscopy. - Bedside bronchoscopy showed left lower lobe mucous plug, suction. Treatment: -Bedside bronchoscopy with clearance of mucous plug done successfully Follow-up: - Once weaned off paralytics and sedation and patient has cough reflex intact, will consider chest physiotherapy. #Mechanical ventilation #Chronic respiratory failure status post tracheostomy 05/26 Currently on ACMV, VC: VT 380, RR 15, PEEP 8, FiO2 0.4 Diagnostic workup: -Patient failed extubation during the hospitalization on 05/12, was reintubated overnight 05/13. - Unable to wean patient off ventilator, tracheostomy performed 05/26/2025, sutures removed 06/06/2025 -Patient underwent bronchoscopies 05/14, 05/17 and 06/05 for increased secretions Treatment: -Monitor SpO2, goal greater than 92 -Continue mechanical ventilation on ACMV/VC Follow-up: - Consider switching patient to PS/SIMV as before once weaned off of sedation #Asthma by history Diagnostic workup: - Patient has history of asthma on montelukast, albuterol as needed at home Treatment: - Currently on mechanical ventilation Gastrointestinal #Chronic PEG tube dependence Differential diagnosis: Chronic dysphagia likely in setting of cerebral palsy Diagnostic workup: -Patient was previously on Jevity 1.5, switched to Nepro due to hyperphosphatemia. Treatment: -Resume Nepro trickle feeds, advance as tolerated Follow-up: - Goal tube feeds as tolerated #Transaminitis, resolved #Hypoalbuminemia, resolved Renal/Genitourinary #Hyperphosphatemia #Elevated alkaline phosphatase #Low PTH #Abnormal nuclear medicine bone scan Differential diagnosis: increased osteoblastic activity in setting of vegetative state, bone infection (particularly of left mastoid), hypoparathyroidism, osteoarthritis Diagnostic workup: - PTH intact low at 3.6, calcium 9.9, vitamin D 25-OH 18.1 - Renal function intact, at baseline -Nuclear medicine bone scan shows minor asymmetric uptake left knee and mild increased uptake mid left tibia - Knee x-ray 06/06 and tibia-fibula x-ray 06/06 showed no findings diagnostic for osseous metastatic disease Treatment: - Will consider consulting orthopedic surgeon in a.m., no Ortho coverage today - Continue sevelamer 800 mg 3 times daily Follow-up: - Pending urine electrolytes and calcium #Phimosis #Paraphimosis (resolved) #Balanitis (resolved) Diagnostic workup: - Edema and tenderness of the glans penis, Swelling of the distal retracted foreskin, Constricting band of tissue proximal to the head of the penis at the coronal sulcus on presentation, s/p reduction of the paraphimosis by urologist Dr. Vargas on 05/09. - Patient has somewhat retractable foreskin, has good urine output, no swelling noted, has external catheter draining well Treatment: - Follow-up by urologist Dr. Vargas on 06/08 Follow-up: - Every 4 hour bladder scan and straight cath as needed for >400cc. #Hyperkalemia, resolved #VITALIY resolved #Lactic acidosis resolved #Acute kidney injury resolved #Rhabdomyolysis resolved Endocrine No active problems Hematology #Acute nonocclusive thrombus in the left brachial vein Diagnostic workup: - Venous doppler study of upper extremities 05/16: Normal right upper extremity deep venous system. Positive for nonocclusive thrombus in the left brachial vein. - Per chart review and patient's parents, patient does not have history of clots. Treatment: - Heparin loading dose and ggt. Lovenox to heparin due to heparin?s shorter half-life, which allows for more rapid cessation in the event of bleeding, a shorter half life and can be stopped if bleeding occurs. - Stopped heparin ggt due to hematuria on 05/18. - Restarted Lovenox 05/31 for tx of primary upper extremity deep vein thrombosis, anticoagulation should be continued for a minimum of three months following the initial thrombotic event. Follow-up: - Hold Lovenox 70 mg SC BID held in light of bleeding tongue (05/31-06/06) #Normocytic Anemia Differential diagnosis: Anemia of chronic disease, nutritional anemia, iatrogenic Diagnostic workup: -Likely multifactorial, currently not an active concern Treatment: -Monitor CBC, transfuse if hemoglobin less than 7 #Leukocytosis, resolved #Thrombocytopenia, resolved #Thrombocytosis, resolved Infectious Disease #Bilateral chronic mastoiditis #Sinusitis #Bilateral otitis media and otitis externa Diagnostic workup: -White fungal debris and clear drainage noted by silverware supervisor, tympanic membrane not visualized on left ear -Right ear canal with small amount of clear drainage, tympanic membrane generally thickened and opaque -05/08 CT Head: prominent sphenoid ethmoid maxillary antral sinusitis, bilateral chronic mastoiditis, bilateral otitis media. -05/08 CT Orbit Sella Inner: severe bilateral chronic mastoiditis, bilateral otitis externa and otitis media, bilateral cholesteatomas in the attics. Treatment: -Ofloxacin Opt racquel 0.3% 5 drops Both ears bid (05/09-05/18, 05/21-05/31) -Ciprofloxacin Op Racquel 0.3% ear drops (06/02-06/03) -Acetic acid irrigations to left ear, clotrimazole drops both ears twice daily for 10 days (06/04- Follow-up: - Otorhinolaryngology to follow in AM #UTI, ESBL E. coli #Pseudomonas aeruginosa, sputum positive Differential diagnosis: Colonization, active infection Diagnostic workup: Sputum culture 06/05 shows sensitive to Zosyn and intermittent resistance to cefepime Sputum culture 06/01 shows Pseudomonas sensitive to Zosyn and intermittent resistant to cefepime Sputum culture from 05/09 shows Pseudomonas only sensitive to meropenem and tobramycin Sputum culture from 05/20 shows Brittney albicans Sputum culture 05/13,05/19 negative Urine culture 06/01 shows ESBL E. coli sensitive to Zosyn CSF culture 05/26, 05/10 negative ENT specimen 05/12 left ear shows Brittney parapsilosis ENT culture from right ear 05/12 shows ESBL E. coli sensitive to Zosyn, meropenem and ertapenem Blood cultures obtained 05/08, 05/11, 05/16, 06/01, 06/05 negative, bronchial washing 05/14 for fungal cultures pending Treatment: - Currently on IV Zosyn 06/05- IV Zosyn 3.375g x1 (at 05/08) IV Ceftriaxone 1g x1 (at 05/08) IV Acyclovir 640mg q8hr (05/08-05/11) IV Ceftriaxone 2g q12hr (05/08-05/11) IV Vancomycin qd (05/08-05/11) since MRSA screen is negative IV Meropenem 1000mg q8hr (05/12-05/22, 05/24-05/25) IV Doxycycline (05/16-05/18) IV Micafungin 100mg qd (05/28-05/30, 06/01-06/03) IV fluconazole 06/05-06/07 Follow-up: - Monitor for fever Integumentary #Tongue Laceration, traumatic #Gingivial Bleeding, Oral Trauma Diagnostic workup: -Known to have episodes of jaw spasms and teeth clenching with agitation. Had significant trauma to gums and tongue due to clenching of teeth 06/06 Treatment: - Patient required cisatracurium to relax jaw, pressure was applied locally, oral packing none, injections of lido?epinephrine x 3 to gums on 06/06 night - Oral packing removed today Follow-up: - Monitor for bleeding Health Maintenance: Feeding/fluids: Currently on trickle feeds with Nepro, free water fluid Analgesia: Oxycodone via G-tube Sedation: Phenobarbital at bedtime, Versed gtt. Thromboprophylaxis: SCDs, Lovenox being held Head up position: Head of bed elevated Ulcer prophylaxis: Lansoprazole Glycemic control: AM blood glucose within normal limits Spontaneous breathing trial: Chronically trached on mechanical ventilation Bowel care: On MiraLAX daily Indwelling catheter removal: No chronic Osborne/lines De-escalation of antibiotics: Will continue with Zosyn, history of multi drug- resistant organisms Code status: Full code Case discussed with Attending Physician Dr. Jeanine Cross MD Internal Medicine PGY-2 Disclaimer: This note was dictated by speech recognition. Minor errors in greens picker may be present due to voice recognition software.
--- NOTE | 2025-06-07 15:25 | PC.NURSE ---
Unable to titrate on MAR for Nimbex Tirtated at 1345 to 1.25mcg/kg/min 4/4 40MA (4) Titrated at 1400 to 1mcg/kg/min 4/4 40MA (4) tITRATED AT 1415 TO 0.75MCG/KG/Min 4/4 40MA (4) Titarted at 1430 to 0.5mcg/kg/min 4/4 40MA (4) Tirtated at 1445 to 0.25mcg/kd/min 4/4 40MA (4) Titarted off at 1500 Md made aware
--- NOTE | 2025-06-07 15:40 | PC.SS ---
Update: Patient in possession of Trach/PEG. Receiving IV antibiotics. Not receiving pressor support. Afebrile. Currently NPO. Upgraded to ICU on 06-06-25.
--- NOTE | 2025-06-07 19:20 | PC.NURSE ---
MD made aware of increase in temperature and heart rate, new orders received.
[2025-06-07] MEDS: MIDAZOLAM INJ 1 MG/ML VIAL 2 ML 2 MG IVP (20:05)
[2025-06-07] MEDS: Magnesium Sulfate 2 GM Ivpb 2 GM/50 ML BAG IV (23:00)
[2025-06-08] VITALS (33 sets, daily range): BP systolic 106–139; BP diastolic 49–102; PULSE 102–139; RESP 16–39; TEMP 37–38.1; O2SAT 94–100; BMI 29.2
[2025-06-08] MEDS: PROPRANOLOL 10 MG TABLET GT ×3 (05:19→21:09)
[2025-06-08] MEDS: VALPROIC ACID SYRUP 250 MG/5 ML UDC GT ×3 (05:19→21:07)
[2025-06-08] MEDS: oxyCODONE HCL 5 MG IR TAB 10 MG PO (05:19)
[2025-06-08] MEDS: PIPER/TAZO INJ 4.5 GM in SODIUM CHLORIDE 0.9% (POP) 100 ML IV ×3 (05:20→21:10)
[2025-06-08 05:52] LABS: Calcium, Random Urine 11 mg/dL (2-18)
[2025-06-08 05:54] LABS: Chloride,Urine Random 38.1 mMol/L (55.0-125.0); Potassium,Urine Random 18 mMol/L (12-62); Sodium,Urine Random 43.6 mMol/L (20.0-110.0)
[2025-06-08] MEDS: MIDAZOLAM/NS 100 MG IVPB 100 MG/100 ML BAG 7 MG IV (06:00)
[2025-06-08 06:08] LABS: Alanine Aminotransferase 37 U/L (10-49); Albumin, Serum 3.9 gm/dL (3.5-5.0); Albumin/Globulin Ratio 1.7 (1.2-2.2); Alkaline Phosphatase 222 U/L (46-116); Anion Gap 11 (7-16); Aspartate Amino Transferase 40 U/L (0-34); BUN/Creatinine Ratio 23 Ratio (12-20); Bilirubin,Total 0.3 mg/dL (0.3-1.2); Blood Urea Nitrogen 14 mg/dL (9-23); Calcium 9.3 mg/dL (8.3-10.6); Calcium (Corrected) 9.4 mg/dL (8.5-10.1); Carbon Dioxide 27.3 mMol/L (20.0-31.0); Chloride 102 mMol/L (98-107); Creatinine (Component) 0.6 mg/dL (0.6-1.3); Estimated Creatinine Clearance 148.3 mL/min (>60); Globulin 2.3 gm/dL (2.3-3.5); Glucose 98 mg/dL (74-106); Magnesium 1.9 mg/dL (1.6-2.6); Osmolality,Calculated 279 (275-295); Phosphorous 4.4 mg/dL (2.4-5.1); Potassium 4.4 mMol/L (3.4-5.1); Sodium 140 mMol/L (136-145); Total Protein 6.2 gm/dL (5.7-8.2); eGFR > 60 See Note
[2025-06-08 06:16] LABS: Basophils # (Auto) 0.1 Thou/mm3 (0.0-0.2); Basophils % (Auto) 0 % (0-2.5); Eosinophils # (Auto) 0.4 Thou/mm3 (0.0-0.5); Eosinophils % (Auto) 3 % (0-10); Hematocrit 26.2 % (41.0-53.0); Immature Granulocytes Auto 0.06 Thou/mm3 (0.00-0.00); Lymphocytes # (Auto) 2.6 Thou/mm3 (1.0-4.8); Lymphocytes % (Auto) 19 % (10-50); Mean Corpuscular HGB Conc 32.1 g/dl (31.0-37.0); Mean Corpuscular Hemoglobin 26.9 pg (25.0-35.0); Mean Corpuscular Volume 84 fL (80-100); Monocytes # (Auto) 1.4 Thou/mm3 (0.0-0.8); Monocytes % (Auto) 11 % (0-12); Neutrophils # (Auto) 8.9 Thou/mm3 (1.8-7.7); Neutrophils % (Auto) 66 % (37-80); Nucleated Red Blood Cell # 0.00 Thou/mm3 (0.00-0.00); Nucleated Red Blood Cell % 0 /100 WBC (0); Platelet Count 308 Thou/mm3 (140-440); RDW Standard Deviation 48.8 fL (35.1-43.9); Red Blood Count 3.12 Miln/mm3 (4.50-5.90); White Blood Count 13.4 Thou/mm3 (3.8-10.6)
[2025-06-08 06:25] LABS: Hemoglobin 8.4 g/dL (13.5-16.0)
--- NOTE | 2025-06-08 07:39 | ESPR_ITS ---
<Statement entered by Jeanine Baeza MD - 06/09/25 08:35> TOTAL TIME: 45MINUTES ON DIRECT MEDICAL CARE, MANAGEMENT - COORDINATION AND COUNSELING > 50% OF TOTAL TIME I saw and evaluated the patient. I reviewed the resident?s note and agree with findings and plan as documented in the resident?s note. no ne fevers liberated to PSV - titrate based on resp ventilatory demand requirements also d/w ENT - they will f/u today pending MRI of Lt tibia/patella to further w/u prior to bmbx - OM extremely low susp given lack of clinical findings of assymetric pain on exam Documentation for date of: 06/08/25 Subjective Subjective Interval history: 25-year-old male with cerebral palsy, asthma, seizure disorder, chronic mastoiditis, recurrent pneumonia, and chronic PEG tube dependence presented with fever and seizure, was admitted for sepsis workup, and later transferred to the ICU on 05/09/2025 where he underwent intubation and eventually underwent tracheostomy due to not being able to take off mechanical ventilator and increased accretions. Patient had a prolonged ICU stay until 05/31/2025 when he was downgraded back to the medical floors that his fever had subsided after medications which could have caused several changes and then were discontinued. Patient in the ICU received multiple full treatments with antibiotics including meropenem and got a bronchoscopy throughout the ICU stay. Once patient was downgraded to the medical floors on 06/01/2025 patient spiked a fever of 101.8 and was more tachycardic. IV fluids were given at this time and Versed pushes were also given for agitation. Hospitalist team then repeated blood cultures and urine cultures as well as sputum cultures. Patient sputum culture on 06/01/2025 did grow Pseudomonas aeruginosa sensitive to Zosyn and his urine did grow ESBL E. coli which was sensitive to Zosyn as well. Patient was also seen on 06/03/2025 by ENT and recommended acetic acid irrigations to the left ear with clotrimazole or VoSol drops twice daily for 10 days and also stated no need for surgical intervention for mastoiditis at this time. Even on recommendations by ENT and after starting fluconazole as well as Zosyn on 06/05/2025 patient still spiking fevers and today his heart was in the 160s and he was very tachypneic. On assessment patient was noted to have increased respiratory rate, was diaphoretic, and seemed in significant discomfort and was agitated. At this time patient was transferred to the ICU for further level care given fever of unclear etiology and increased agitation as well as breathing over the vent. 06/06/25: Patient seen and assessed at bedside. Was informed by family overnight that patient was previously on Seroquel 50 mg every morning as well as 100 mg nightly for agitation prior to admission. Restarted last night. Continued to have fevers (highest at 101.4F), resolved after 4AM. Tachycardia also resolved around the same time. Continues to be afebrile. On physical exam, noted to have bitten off the tip of his tongue, likely in setting of agitation overnight. Held Lovenox in setting of new active bleed. Will start on paralytic cistracurium to relax jaw and Surgicel bleeding site. Will increase Versed for sedation of RASS -4, will not start new sedative to avoid complicating his current condition and possibly inducing serotonin syndrome like previously during this admission. On labs, WBC continues to uptrend and phosphate slowly increasing. Restarted on sevelamer. Ordered bone scan to evaluate osteoblast activity (which may also be contributing to patient's recurrent fevers) and other potential sources of bone infection. Magnesium 1.7, repleted with IV mag sulfate 4g. Patient's family was updated via phone with healthcare translator present of patient's current condition including tongue laceration. Notified them of current plan of action including need for paralytic at this time, they were agreeable to plan. Continue Zosyn, fluconazole, and clotrimazole ear drops. 06/07/2025: Overnight patient required injections of lidocaine epi injections to control gum bleeding, overnight had ventilator asynchrony and patient's ventilator mode was switched to ACMV with PRVC to improve tidal volume. Chest x-ray obtained this morning shows left base consolidation, consent for bronchoscopy obtained from family. Patient on Nimbex and Versed drip, bronchoscopy revealed large mucous plug left lower lobe, patient switched to volume control after. Weaned off of Nimbex, currently on Versed with RASS goal -4 will down titrate Versed as tolerated. Oral packing which was placed overnight was removed, no signs of active bleeding. Patient will be evaluated by ENT, urology in AM. 06/08/2025: Patient was seen and examined at bedside this morning. Overnight patient did spike fevers with the highest being 101.3. Otherwise has had no further bleeding from mouth. Off Nimbex, still currently on Versed drip. Will start and wean patient down from Versed drip with a RASS of 0 until we are entirely off the Versed drip only using Versed pushes as needed for agitation. Will also increase patient's phenobarbital to twice daily from at bedtime and start clonazepam 0.5 mg BID. Ventilator setting on PS. ENT saw the patient stated no need for further ear drops as no visible drainage appreciated, but did recommend nasal saline gel for moisturizing, but currently unavailable in the hospital after speaking with pharmacy. Urology saw the patient today and did a dorsal slit procedure at bedside after consent was obtained from the patient's father using translator deaf, Armando ID #[id number].. Patient received fentanyl x3 for pain control as well as versed 2mg x2 during the procedure. Again tried to reach out to patient's mother and father using translator deaf, Macario ID [id number], but was unsuccessful as they were unreachable to both phone numbers available. Spoke with patient's mother and provided updates on patient's current condition. Answered all questions and concerns and patient's family was agreeable. Did state today's plan which included MRI L LE to r/o osteomyelitis, ENT specialist to see the patient, decreasing sedation, and that we are waiting for Urology concerning phimosis and need of urine culture repeat. translator deaf was used, Maritza ID #[id number]. Priorly also used translator deaf Mary ID #[id number], but patient's mother and father did not answer therefore left a message and subsequently got a call back from patient's mother and used translator deaf Maritza ID #[id number]. Patient's mother, brother, and father came by and were updated about the procedure with in hospital humera lau. Explained that patient may need to go to subacute for further rehab as he is unlikely to be weaned off mechanical ventilator during hospital admission. Also updated them on the patient's fever and that we are weaning off sedation. They stated they were agreeable with treatment plan and if any emergency came up that they would be okay with anything to save his life even if they were notified after any emergent procedure. All their questions were answered. Exam Vital Signs Temp Pulse Resp BP Pulse Ox O2 Del Method O2 Flow Rate 100.4 F 111 H 31 H 121/61 99 Mechanical Ventilation 35 06/08/25 04:00 06/08/25 06:00 06/08/25 05:45 06/08/25 06:00 06/08/25 06:00 06/06/25 04:00 06/05/25 16:00 FiO2 30 06/08/25 05:45 Narrative Exam Gen: more alert and calm, trached HEENT: NCAT, EOMI, Pupils reactive KARLO, not icteric, Bilateral inferior eye scleral hemorrhage, improving. External ears normal. No rhinorrhea. Moist mucous membranes with no visible blood. Neck: Supple, full range of motion, no observable masses, No meningeal sign. Lungs: Coarse breath sounds bilateral, mechanically ventilated. CV: tachycardic, no murmurs appreciated. Abdomen: Soft, nondistended, No rebound tenderness, PEG tube in place, peristalsis present. MSK: No lower extremity edema, no redness, peripheral pulses presents, Contracted and swollen hands, decreased tone : Penis glan visible and clean dressing around penis s/p dorsal slit procedure. Skin: No, petechiae, lesions, erythematous Neuro: Alert and moving extremitie, pupils reactive Objective Labs 06/08/25 05:41 06/08/25 04:20 Labs: Laboratory Results - last 24 hr 06/08/25 06/08/25 06/08/25 04:20 04:24 05:41 WBC 13.4 H D RBC 3.12 L Hgb 8.4 L Hct 26.2 L MCV 84 MCH 26.9 MCHC 32.1 RDW Std Deviation 48.8 H Plt Count 308 D Neut % (Auto) 66 Lymph % (Auto) 19 Bee % (Auto) 11 Eos % (Auto) 3 Baso % (Auto) 0 Neut # (Auto) 8.9 H Lymph # (Auto) 2.6 Bee # (Auto) 1.4 H Eos # (Auto) 0.4 Baso # (Auto) 0.1 Immature Gran # (Auto) 0.06 H Absolute Nucleated RBC 0.00 Immature Gran % 0 Nucleated RBC % 0 Sodium 140 Potassium 4.4 D Chloride 102 Carbon Dioxide 27.3 Anion Gap 11 BUN 14 Creatinine 0.6 Estim Creat Clear Calc 148.3 eGFR > 60 BUN/Creatinine Ratio 23 H Glucose 98 Calculated Osmolality 279 Calcium 9.3 Corrected Calcium 9.4 Phosphorus 4.4 Magnesium 1.9 Total Bilirubin 0.3 AST 40 H ALT 37 Alkaline Phosphatase 222 H D Total Protein 6.2 Albumin 3.9 Globulin 2.3 Albumin/Globulin Ratio 1.7 Ur Random Sodium 43.6 Ur Random Potassium 18 Ur Random Chloride 38.1 L Ur Random Calcium 11 ABG Interpretation ABG results: 05/09/25 05/09/25 05/09/25 11:56 13:40 18:50 ABG pH 7.40 7.27 L D 7.28 L ABG pCO2 40 43 55 H D ABG pO2 131 H 53 L* D 70 L ABG HCO3 25 20 26 ABG O2 Saturation 99 H 81 L 92 ABG Base Excess 0 -7 L -2 VBG pH VBG pCO2 VBG pO2 VBG Base Excess 05/10/25 05/11/25 05/12/25 00:14 05:06 01:18 ABG pH 7.35 7.33 L 7.39 ABG pCO2 42 D 54 H D 48 ABG pO2 103 D 93 94 ABG HCO3 23 28 H 29 H ABG O2 Saturation 99 H 98 98 ABG Base Excess -3 2 3 VBG pH VBG pCO2 VBG pO2 VBG Base Excess 05/12/25 05/12/25 05/13/25 03:58 11:50 05:10 ABG pH 7.46 H 7.39 7.19 L* D ABG pCO2 41 48 60 H D ABG pO2 105 58 L* D 114 H D ABG HCO3 29 H 29 H 23 ABG O2 Saturation 99 H 90 L 98 ABG Base Excess 5 H 4 H -6 L VBG pH VBG pCO2 VBG pO2 VBG Base Excess 05/17/25 05/18/25 05/19/25 01:30 04:09 04:43 ABG pH 7.38 7.43 7.47 H ABG pCO2 46 44 43 ABG pO2 90 83 80 L ABG HCO3 27 H 29 H 31 H ABG O2 Saturation 98 97 97 ABG Base Excess 2 5 H 7 H VBG pH VBG pCO2 VBG pO2 VBG Base Excess 05/21/25 05/21/25 05/31/25 04:18 06:33 08:06 ABG pH 7.37 D 7.46 H ABG pCO2 50 H 38 D ABG pO2 40 L* D 121 H D ABG HCO3 29 H 27 H ABG O2 Saturation 66 L 100 H ABG Base Excess 3 3 VBG pH 7.55 VBG pCO2 31 L VBG pO2 144 H VBG Base Excess 5 H 06/05/25 06/05/25 06/06/25 13:37 23:46 05:20 ABG pH 7.47 H 7.45 ABG pCO2 35 38 ABG pO2 200 H 54 L* D ABG HCO3 25 26 ABG O2 Saturation 101 H 89 L ABG Base Excess 2 2 VBG pH 7.50 VBG pCO2 34 L VBG pO2 90 H VBG Base Excess 4 H Quality Measures Quality Measures VTE prophylaxis (SCDs) and sepsis Current suspected stage: ruled out Possible source: pulmonary Blood cultures ordered: yes Antibiotic ordered: Yes Assessment & Plan Assessment Current Active Medications: Generic Name Dose Route Start Last Admin Trade Name Freq PRN Reason Stop Dose Admin Acetic Acid 250 ml 06/03/25 21:00 06/07/25 20:06 Acetic Acid Irrig 0.25% 500 Ml Btl IRRIG 07/03/25 20:59 250 ml BID KYA Administration Albuterol/Ipratropium 3 ml 05/09/25 18:19 05/28/25 06:34 Albuterol/Ipratropium (Duoneb) Rt Racquel 3 Ml Nebu INH 06/08/25 18:18 3 ml Q2HR PRN Administration SHORTNESS OF BREATH OR WHEEZE Enoxaparin Sodium 70 mg 05/30/25 21:00 06/06/25 09:44 Enoxaparin Sod Inj 80 Mg/0.8 Ml Syringe SC 06/13/25 20:59 70 mg On Hold: 06/06/25 15:49 BID KYA Administration Ferrous Sulfate 325 mg 06/01/25 09:00 06/07/25 09:00 Ferrous Sulfate 300 Mg/5 Ml Udc PO 07/01/25 08:59 325 mg QOD KYA Administration Piperacillin Sod/Tazobactam 100 mls @ 200 mls/hr 06/05/25 14:00 06/08/25 05:20 Sod 4.5 gm/ Sodium Chloride IV 06/12/25 13:59 200 mls/hr Q8HR KYA Administration Protocol Midazolam HCl 100 mg in 100 mls @ 1 mls/hr 06/08/25 07:33 Versed Pf Inj In Ns Premix IV 06/12/25 18:59 .Q24H PRN PER PROTOCOL Protocol 1 MG/HR Ibuprofen 200 mg 06/06/25 03:30 06/06/25 03:36 Ibuprofen Susp 100 Mg/5 Ml Udc PO 07/03/25 09:48 200 mg Q6HR PRN Administration FEVER > 101 Lansoprazole 30 mg 05/28/25 09:00 06/07/25 09:01 Lansoprazole 30 Mg Tab.Rap. GT 06/27/25 08:59 30 mg QDAY KYA Administration Levetiracetam 750 mg 05/30/25 09:00 06/07/25 20:06 Levetiracetam Liqd 500 Mg/5 Ml Udc GT 06/29/25 08:59 750 mg BID KYA Administration Midazolam HCl 2 mg 06/07/25 15:59 Midazolam Inj 1 Mg/Ml Vial 2 Ml IVP 06/12/25 15:58 Q1HR PRN AGITATION OR ANXIETY Clotrimazole 1% 4 drop 06/04/25 14:45 06/07/25 20:07 Topical Solution BOTH EARS 07/04/25 14:44 4 drop BID KYA Administration Ondansetron HCl 4 mg 05/27/25 14:37 Ondansetron Odt 4 Mg Tabrap GT 06/26/25 14:36 Q6HR PRN NAUSEA OR VOMITING Protocol Oxycodone HCl 10 mg 06/03/25 14:00 06/08/25 05:19 Oxycodone Hcl 5 Mg Ir Tab PO 06/08/25 13:59 10 mg TID KYA Administration Phenobarbital 64.8 mg 06/04/25 21:00 06/07/25 20:05 Phenobarbital 32.4 Mg Tablet GT 06/18/25 20:59 64.8 mg HS KYA Administration Polyethylene Glycol 17 gm 05/16/25 09:15 06/07/25 09:01 Polyethylene Glycol 17 Gm Packet PO 06/15/25 09:14 17 gm QDAY KYA Administration Propranolol HCl 10 mg 06/06/25 06:00 06/08/25 05:19 Propranolol 10 Mg Tablet GT 07/06/25 05:59 10 mg TID KYA Administration Quetiapine Fumarate 50 mg 06/06/25 09:00 06/07/25 09:01 Quetiapine Fumarate 25 Mg Tablet GT 07/06/25 08:59 50 mg QDAY KYA Administration Quetiapine Fumarate 100 mg 06/05/25 22:40 06/07/25 20:05 Quetiapine Fumarate 100 Mg Tablet GT 07/05/25 22:39 100 mg HS KYA Administration Sevelamer Carbonate 800 mg 06/06/25 08:00 06/07/25 17:28 Sevelamer Carbonate 800 Mg Tablet PO 07/06/25 07:59 800 mg TIDWM KYA Administration Sodium Chloride 3 ml 05/17/25 11:43 Sodium Chloride Rt Racquel 0.9% 3 Ml Nebu INH 06/16/25 11:42 PRN PRN SOLN Valproic Acid 250 mg 05/27/25 18:00 06/08/25 05:19 Valproic Acid Syrup 250 Mg/5 Ml Udc GT 06/26/25 17:59 250 mg Q8HR KYA Administration Plan 25-year-old male with history of cerebral palsy, asthma, seizure disorder, chronic mastoiditis, recurrent pneumonia, and chronic PEG tube dependence presented on 05/08/2025 with fever and seizure, was admitted for sepsis workup, and later transferred to the ICU on 05/09/25 for increased agitation, tachypnea, and increased secretions with recurrent fevers. Was downgraded on 05/31/25 due to resolution of fever for at least 48 hours however was upgraded back on 06/05/25 due to increased work of breathing, ventilator asynchrony agitation and fever. Neurological #Agitation #Sedated and paralyzed Differential diagnosis: ICU acquired delirium, opiate withdrawal, delirium Diagnostic workup: - Patient was weaned off of sedation and was downgraded to telemetry, however as sedatives were down titrated and telemetry patient had episode of severe agitation and ventilator asynchrony and was upgraded to ICU for further intervention. - EEG 05/11 unremarkable. Repeat EEG 05/20 showed electrographic seizure activity. Continuous EEG 05/22-05/23: no seizure activity or status epilepticus. - MRI brain 05/23: showed chronic infections, no acute pathology. Treatment: -Cisatracurium gtt discontinued. -Versed drip, weaning down RASS 0 -Continue Seroquel 50 mg every morning and 100 mg at bedtime -Increased Phenobarbital 64.8 mg to twice daily - Started Clonazepam 0.5 mg BID -Oxycodone 10 mg 3 times daily Follow-up: - Down titrate Versed drip, currently on RASS 0, down titrate as tolerated - Use Versed pushes as needed #Seizure disorder by history #Cerebral palsy by history Diagnostic workup: - Active seizure disorder ruled out, multiple EEGs negative for seizure activity Treatment: -Continue Depakote 250 mg GT every 8 hours and Keppra 750 mg GT twice daily Follow-up: -Pending EEG results from 06/05/2025 Cardiology #Sinus tachycardia Differential diagnosis: Infection, hypersympathetic activity Diagnostic workup: -Did have positive sputum and urine culture for Pseudomonas and ESBL respectively -Patient's last fever was 06/06/2025 04:36 -Echocardiogram was obtained to rule out any vegetations TTE shows normal systolic function, EF 55 to 60%, diastolic dysfunction grade 1, no evidence of vegetation or endocarditis Treatment: -Continue propranolol 10 mg 3 times daily -Continue antibiotics Follow-up: -Monitor for fever, use ibuprofen as needed for fever episode -Telemetry monitoring Pulmonary #Left lower lobe mucous plug Diagnostic workup: - Chest x-ray obtained 06/07 AM, showed a left lower lobe consolidation, ddx left lower lobe pneumonia versus mucous plug versus left pleural effusion versus mucous plug versus atelectasis lung ultrasound at bedside, effusion ruled out, no hepatization of the lung noted. Consent obtained from family for bronchoscopy. - Bedside bronchoscopy showed left lower lobe mucous plug, suction. Treatment: -Bedside bronchoscopy (06/07/2025) with clearance of mucous plug done successfully Follow-up: - Once weaned off sedation and patient has cough reflex intact and more awake/alert, will consider chest physiotherapy. #Mechanical ventilation #Chronic respiratory failure status post tracheostomy 05/26 Currently on PS Diagnostic workup: -Patient failed extubation during the hospitalization on 05/12, was reintubated overnight 05/13. - Unable to wean patient off ventilator, tracheostomy performed 05/26/2025, sutures removed 06/06/2025 -Patient underwent bronchoscopies 05/14, 05/17 and 06/05 for increased secretions - Currently on PS, will keep PS overnight Treatment: -Monitor SpO2, goal greater than 92 -Continue mechanical ventilation on ACMV/VC Follow-up: - Consider switching patient to PS/SIMV as before once weaned off of sedation #Asthma by history Diagnostic workup: - Patient has history of asthma on montelukast, albuterol as needed at home Treatment: - Currently on mechanical ventilation Gastrointestinal #Chronic PEG tube dependence Differential diagnosis: Chronic dysphagia likely in setting of cerebral palsy Diagnostic workup: -Patient was previously on Jevity 1.5, switched to Nepro due to hyperphosphatemia. Treatment: -Resume Nepro trickle feeds, advance as tolerated Follow-up: - Goal tube feeds as tolerated #Transaminitis, resolved #Hypoalbuminemia, resolved Renal/Genitourinary #Hyperphosphatemia #Elevated alkaline phosphatase #Low PTH #Abnormal nuclear medicine bone scan Differential diagnosis: increased osteoblastic activity in setting of vegetative state, bone infection (particularly of left mastoid), hypoparathyroidism, osteoarthritis Diagnostic workup: - PTH intact low at 3.6, calcium 9.9, vitamin D 25-OH 18.1 - Renal function intact, at baseline -Nuclear medicine bone scan shows minor asymmetric uptake left knee and mild increased uptake mid left tibia - Knee x-ray 06/06 and tibia-fibula x-ray 06/06 showed no findings diagnostic for osseous metastatic disease Treatment: - MRI Left leg to r/o osteomyelitis - Continue sevelamer 800 mg 3 times daily #Phimosis s/p dorsal slit procedure #Paraphimosis (resolved) #Balanitis (resolved) Diagnostic workup: - Edema and tenderness of the glans penis, Swelling of the distal retracted foreskin, Constricting band of tissue proximal to the head of the penis at the coronal sulcus on presentation, s/p reduction of the paraphimosis by urologist Dr. Vargas on 05/09. - Patient has somewhat retractable foreskin, has good urine output, no swelling noted, has external catheter draining well Treatment: - Follow-up by urologist Dr. Vargas and performed dorsal slit procedure on 06/08 Follow-up: - Every 4 hour bladder scan and straight cath as needed for >400cc. #Hyperkalemia, resolved #VITALIY resolved #Lactic acidosis resolved #Acute kidney injury resolved #Rhabdomyolysis resolved Endocrine No active problems Hematology #Acute nonocclusive thrombus in the left brachial vein Diagnostic workup: - Venous doppler study of upper extremities 05/16: Normal right upper extremity deep venous system. Positive for nonocclusive thrombus in the left brachial vein. - Per chart review and patient's parents, patient does not have history of clots. - Given patient's inability to safely engage and risk of continued trauma to buccal mucosa by biting will not do full dose anticoagulation given increased risk of bleeding Treatment: - Heparin loading dose and ggt. Lovenox to heparin due to heparin?s shorter half-life, which allows for more rapid cessation in the event of bleeding, a shorter half life and can be stopped if bleeding occurs. - Stopped heparin ggt due to hematuria on 05/18. - Restarted Lovenox 05/31 for tx of primary upper extremity deep vein thrombosis, anticoagulation should be continued for a minimum of three months following the initial thrombotic event, but given patient is high risk to buccal mucosa trauma will not pursue therapeutic dose as high risk of bleeding. Follow-up: - Heparin SC for DVT prophylaxis #Normocytic Anemia Differential diagnosis: Anemia of chronic disease, nutritional anemia, iatrogenic Diagnostic workup: -Likely multifactorial, currently not an active concern Treatment: -Monitor CBC, transfuse if hemoglobin less than 7 #Leukocytosis, resolved #Thrombocytopenia, resolved #Thrombocytosis, resolved Infectious Disease #Bilateral chronic mastoiditis #Sinusitis #Bilateral otitis media and otitis externa Diagnostic workup: -White fungal debris and clear drainage noted by manager laundry, tympanic membrane not visualized on left ear -Right ear canal with small amount of clear drainage, tympanic membrane generally thickened and opaque -05/08 CT Head: prominent sphenoid ethmoid maxillary antral sinusitis, bilateral chronic mastoiditis, bilateral otitis media. -05/08 CT Orbit Sella Inner: severe bilateral chronic mastoiditis, bilateral otitis externa and otitis media, bilateral cholesteatomas in the attics. Treatment: -Ofloxacin Opt racquel 0.3% 5 drops Both ears bid (05/09-05/18, 05/21-05/31) -Ciprofloxacin Op Racquel 0.3% ear drops (06/02-06/03) - Discontinue Acetic acid irrigations to left ear, clotrimazole drops both ears twice daily for 10 days (06/04-06/08/2025) as per ENT #UTI, ESBL E. coli #Pseudomonas aeruginosa, sputum positive Differential diagnosis: Colonization, active infection Diagnostic workup: Sputum culture 06/05 shows sensitive to Zosyn and intermittent resistance to cefepime Sputum culture 06/01 shows Pseudomonas sensitive to Zosyn and intermittent resistant to cefepime Sputum culture from 05/09 shows Pseudomonas only sensitive to meropenem and tobramycin Sputum culture from 05/20 shows Brittney albicans Sputum culture 05/13,05/19 negative Urine culture 06/01 shows ESBL E. coli sensitive to Zosyn CSF culture 05/26, 05/10 negative ENT specimen 05/12 left ear shows Brittney parapsilosis ENT culture from right ear 05/12 shows ESBL E. coli sensitive to Zosyn, meropenem and ertapenem Blood cultures obtained 05/08, 05/11, 05/16, 06/01, 06/05 negative, bronchial washing 05/14 for fungal cultures pending Treatment: - Currently on IV Zosyn 06/05- IV Zosyn 3.375g x1 (at 05/08) IV Ceftriaxone 1g x1 (at 05/08) IV Acyclovir 640mg q8hr (05/08-05/11) IV Ceftriaxone 2g q12hr (05/08-05/11) IV Vancomycin qd (05/08-05/11) since MRSA screen is negative IV Meropenem 1000mg q8hr (05/12-05/22, 05/24-05/25) IV Doxycycline (05/16-05/18) IV Micafungin 100mg qd (05/28-05/30, 06/01-06/03) IV fluconazole 06/05-06/07 Follow-up: - Continue to monitor for fever Integumentary #Tongue Laceration, traumatic #Gingivial Bleeding, Oral Trauma Diagnostic workup: -Known to have episodes of jaw spasms and teeth clenching with agitation. Had significant trauma to gums and tongue due to clenching of teeth 06/06 - No further bleeding appreciated in oral mucosa Treatment: - Patient required cisatracurium to relax jaw, pressure was applied locally, oral packing none, injections of lido?epinephrine x 3 to gums on 06/06 night Follow-up: - Monitor for bleeding Health Maintenance: Feeding/fluids: Currently on trickle feeds with Nepro, free water fluid Analgesia: Oxycodone via G-tube Sedation: Phenobarbital BID, Clonazepam 0.5mg BID, Versed gtt. Thromboprophylaxis: SCDs, heparin SC Head up position: Head of bed elevated Ulcer prophylaxis: Lansoprazole Glycemic control: AM blood glucose within normal limits Spontaneous breathing trial: Chronically trached on mechanical ventilation Bowel care: On MiraLAX daily Indwelling catheter removal: No chronic Osborne/lines De-escalation of antibiotics: Will continue with Zosyn, history of multi drug- resistant organisms Code status: Full code Case disclosed with Attending Dr. Jeanine Easton PGY2 Disclaimer: Even though this this note was dictated by speech recognition and even though it was carefully revised there may still be minor errors in operating room surgical technologist due to voice recognition software.
--- NOTE | 2025-06-08 08:50 | PD.INTPROC ---
PROCEDURES: Procedure Date / Time DELAYED PROCEDURE NOTE ENTRY PROCEDURE DATE: 06/07/2025 DATE OF NOTE: 06/08/25 0850 Bronchoscopy Bronscopy indication(s): removal of secretions (mucus plugging noted on CXR of LLL - no effusion noted on ICU bedside US.) Informed consent obtained from: surrogate Time out done and the following verified: correct patient, side and site, procedure, patient position and implants and/or equipment Oxygen delivery: 100% FIO2 Trachea: distal appears normal (tracheostomy tube terminates approx 1cm above haresh) Haresh: sharp in angle RUL & subsegmental branches: mucus plugging RML & subsegmental branches: mucosa appears normal RLL & subsegmental branches: inflammation BRENDA & subsegmental branches: inflammation LLL & subsegmental branches: mucus plugging Bronchoalveolar lavage: BAL was not performed - a bronchial wash was performed in the RLL AND LLL. Obvious thick white mucus plugging was noted in the proximal LLL bronchus. This was cleared with Saline wash. Similar secretions were noted in the RLL and easily cleared with saline wash. EBL: 0
[2025-06-08] MEDS: LANSOPRAZOLE 30 MG TAB.RAP.DR GT (09:34)
[2025-06-08] MEDS: levETIRAcetam LIQD 500 MG/5 ML UDC 750 MG GT ×2 (09:34→21:07)
[2025-06-08] MEDS: Acetic Acid Irrig 0.25% 500 ML BTL 250 ML IRRIG (09:35)
[2025-06-08] MEDS: SEVELAMER CARBONATE 800 MG TABLET PO ×3 (09:35→16:55)
--- NOTE | 2025-06-08 09:45 | XR_ITS ---
Examination: MRI left lower leg without contrast MRI left lower leg with intravenous contrast Date and time of exam: June 08, 2025, 1821 hours INDICATIONS: Fever leg pain presenting to the ER May 08, 2025, seizure, nuclear medicine bone scan mildly increased uptake mid tibia Technique: Multiple MRI axial and sagittal sections lower leg left Sagittal T2-weighted images, TR 3500, TE 118 T1 weighted transverse sections, TR 688 T8.5, T2-weighted sagittal sections T1 weighted sagittal sections TR 621, TE 30 T2 axial sections, TR 4, 190, TE 84. Findings: All of the images are severely degraded by patient motion No abnormal enhancement noted IMPRESSION: All of the images are severely degraded by continuous patient motion,. Cortex of the tibia fibula grossly intact with no endosteal scalloping Consider shorter CT scan lower leg post contrast follow-up
--- NOTE | 2025-06-08 12:05 | PD.SURCONPRO ---
Documentation for date of: 06/08/25 Subjective Subjective Brief History: Follow-up visit for draining left ear and possible epistaxis Narrative: Patient has been receiving the clotrimazole drops and vinegar rinses for the left ear drainage. The drainage is reportedly improved significantly. He was also found to have some dark red blood in the posterior oropharynx had a recent bronchoscopy. No bleeding site was found. Exam Vital Signs Temp Pulse Resp BP Pulse Ox O2 Del Method O2 Flow Rate 100.4 F 126 H 31 H 115/68 96 Mechanical Ventilation 35 06/08/25 08:00 06/08/25 10:00 06/08/25 05:45 06/08/25 10:00 06/08/25 10:00 06/06/25 04:00 06/05/25 16:00 FiO2 30 06/08/25 09:36 Narrative Exam Patient is sedated and unresponsive. Trach tube is in place. Both ears were examined today the right ear was visualized and the canal was small but there was no drainage and tympanic membrane was intact without signs of any acute infection. The left ear is visualized as well this ear was dry also with no signs of otitis externa or otitis media. No acute infection was present. Anterior nasal exam was performed as well. The nasal mucosa was moist and there was no signs of bleeding or fresh blood. Vitals and lab work were reviewed. Assessment & Plan Assessment Additional comments: The left otitis externa has resolved. There is no signs of acute mastoiditis. Patient does have a history of chronic mastoiditis. This is a chronic condition that does not need antibiotic therapy. There is no visualized bleeding sites. Continue to recommend using the nasal saline gel 3-4 times a day. You can discontinue the clotrimazole drops and the vinegar rinses. This will terminate my follow-up on this patient unless something new arises
[2025-06-08] MEDS: LIDOCAINE HCL 1% 20 ML VIAL 10 ML IM (12:55)
[2025-06-08] MEDS: MIDAZOLAM INJ 1 MG/ML VIAL 2 ML 2 MG IVP ×3 (13:00→18:41)
[2025-06-08] MEDS: fentaNYL CIT INJ 50 mCg/ML AMP 2ML IVP ×3 (13:05→13:29)
[2025-06-08] MEDS: HEPARIN SOD INJ 5000 UNIT/ML VIAL SC ×2 (14:13→21:10)
--- NOTE | 2025-06-08 16:24 | PC.SS ---
Update: Patient Trach/PEG. Receiving sedation. Tube feeds resumed. Afebrile. Family meeting conducted overview provided. Family confirmed plan to transition patient to sub-acute once medically cleared.
[2025-06-08] MEDS: MIDAZOLAM/NS 100 MG IVPB 100 MG/100 ML BAG 6 MG IV (16:30)
--- NOTE | 2025-06-08 22:45 | PD.NEUROPROG ---
Documentation for date of: 06/08/25 Subjective Subjective Interval history: Patient is in ICU, continues to remain on ventilatory support status post tracheostomy. intermittently gets restless despite being on fentanyl and versed as needed and bid of clonazepam. No clinical seizures reported Exam - Neurology Vital Signs Temp Pulse Resp BP Pulse Ox O2 Del Method O2 Flow Rate 98.6 F 105 H 22 H 132/72 H 99 Mechanical Ventilation 35 06/08/25 16:00 06/08/25 22:17 06/08/25 19:24 06/08/25 22:17 06/08/25 22:17 06/06/25 04:00 06/05/25 16:00 FiO2 30 06/08/25 22:17 Narrative Exam GENERAL APPEARANCE: Developmentally delayed male , trached and on mechanical ventilatory support HEENT: Normocephalic, atraumatic, Pupils: Equal reacting to light NECK: Supple, no JVD or bruits. CARDIOVASULAR: Heart: S1, S2 heard, regular without S3-S4 or murmur no rubs or gallops. LUNGS/CHEST: Breath sounds heard equally bilaterally, bilateral Rales and rhonchi heard. ABDOMEN: Soft, nontender, with normal bowel sounds. No pulsatile masses. No rebound, rigidity, or guarding. Normal inspection and palpation. EXTREMITIES: Normal inspection and palpation. No edema, clubbing or cyanosis. SKIN: Warm and dry without rashes. Normal inspection. NEURO: remains unresponsive, brainstem function: Intact. PSYCHIATRIC: Limited Objective Labs 06/10/25 04:39 06/10/25 04:39 Labs: Laboratory Results - last 24 hr 06/08/25 06/08/25 06/08/25 04:20 04:24 05:41 WBC 13.4 H D RBC 3.12 L Hgb 8.4 L Hct 26.2 L MCV 84 MCH 26.9 MCHC 32.1 RDW Std Deviation 48.8 H Plt Count 308 D Neut % (Auto) 66 Lymph % (Auto) 19 [facility] % (Auto) 11 Eos % (Auto) 3 Baso % (Auto) 0 Neut # (Auto) 8.9 H Lymph # (Auto) 2.6 [facility] # (Auto) 1.4 H Eos # (Auto) 0.4 Baso # (Auto) 0.1 Immature Gran # (Auto) 0.06 H Absolute Nucleated RBC 0.00 Immature Gran % 0 Nucleated RBC % 0 Sodium 140 Potassium 4.4 D Chloride 102 Carbon Dioxide 27.3 Anion Gap 11 BUN 14 Creatinine 0.6 Estim Creat Clear Calc 148.3 eGFR > 60 BUN/Creatinine Ratio 23 H Glucose 98 Calculated Osmolality 279 Calcium 9.3 Corrected Calcium 9.4 Phosphorus 4.4 Magnesium 1.9 Total Bilirubin 0.3 AST 40 H ALT 37 Alkaline Phosphatase 222 H D Total Protein 6.2 Albumin 3.9 Globulin 2.3 Albumin/Globulin Ratio 1.7 Ur Random Sodium 43.6 Ur Random Potassium 18 Ur Random Chloride 38.1 L Ur Random Calcium 11 ABG Interpretation ABG results: 05/09/25 05/09/25 05/09/25 11:56 13:40 18:50 ABG pH 7.40 7.27 L D 7.28 L ABG pCO2 40 43 55 H D ABG pO2 131 H 53 L* D 70 L ABG HCO3 25 20 26 ABG O2 Saturation 99 H 81 L 92 ABG Base Excess 0 -7 L -2 VBG pH VBG pCO2 VBG pO2 VBG Base Excess 05/10/25 05/11/25 05/12/25 00:14 05:06 01:18 ABG pH 7.35 7.33 L 7.39 ABG pCO2 42 D 54 H D 48 ABG pO2 103 D 93 94 ABG HCO3 23 28 H 29 H ABG O2 Saturation 99 H 98 98 ABG Base Excess -3 2 3 VBG pH VBG pCO2 VBG pO2 VBG Base Excess 05/12/25 05/12/25 05/13/25 03:58 11:50 05:10 ABG pH 7.46 H 7.39 7.19 L* D ABG pCO2 41 48 60 H D ABG pO2 105 58 L* D 114 H D ABG HCO3 29 H 29 H 23 ABG O2 Saturation 99 H 90 L 98 ABG Base Excess 5 H 4 H -6 L VBG pH VBG pCO2 VBG pO2 VBG Base Excess 05/17/25 05/18/25 05/19/25 01:30 04:09 04:43 ABG pH 7.38 7.43 7.47 H ABG pCO2 46 44 43 ABG pO2 90 83 80 L ABG HCO3 27 H 29 H 31 H ABG O2 Saturation 98 97 97 ABG Base Excess 2 5 H 7 H VBG pH VBG pCO2 VBG pO2 VBG Base Excess 05/21/25 05/21/25 05/31/25 04:18 06:33 08:06 ABG pH 7.37 D 7.46 H ABG pCO2 50 H 38 D ABG pO2 40 L* D 121 H D ABG HCO3 29 H 27 H ABG O2 Saturation 66 L 100 H ABG Base Excess 3 3 VBG pH 7.55 VBG pCO2 31 L VBG pO2 144 H VBG Base Excess 5 H 06/05/25 06/05/25 06/06/25 13:37 23:46 05:20 ABG pH 7.47 H 7.45 ABG pCO2 35 38 ABG pO2 200 H 54 L* D ABG HCO3 25 26 ABG O2 Saturation 101 H 89 L ABG Base Excess 2 2 VBG pH 7.50 VBG pCO2 34 L VBG pO2 90 H VBG Base Excess 4 H Assessment & Plan Assessment and plan (1) Seizure disorder: Status: Acute (2) Cerebral palsy: Qualifiers: Cerebral palsy type: unspecified type Qualified Code(s): G80.9 - Cerebral palsy, unspecified Status: Chronic (3) Fever: Status: Acute (4) Chronic mastoiditis, bilateral: Status: Acute (5) Acute otitis externa: Status: Acute (6) Chronic right maxillary sinusitis: Status: Acute (7) Chronic ethmoidal sinusitis: Status: Acute Additional Assessment & Plan Additional Plan: David Baltazar is 24 yr male with PMH of chronic mastoiditis (previously had tympanostomy tube placed for recurrent otitis media, now removed), seizure disorder, recurrent pneumonia, cerebral palsy, chronic PEG tube, and asthma who was brought into ED on 05/08/25 for ongoing fever of over 24 hours and reported episode of witnessed seizure by ED. Patient was treated for sepsis.Neurology was consulted. #Chronic pansinusitis #ruled out Meningitis #Tonic clonic seizure #Cerebral palsy -continue Keppra and Depakote -Consider going down on Phenobarbital gradually. -seizure precautions -midazolam for breakthrough seizure as needed MRI brain: chronic pansinusitis. Will increase Depakote as the level is low and increase clonazepam to 3 times daily to help with the abnormal involuntary movements Eventually needs to try [place] again. CSF analysis x2 : unremarkable. #Paraphimosis: Resolved, Osborne draining clear urine #Normocytic Anemia #Respiratory failure: s/p tracheostomy and on vent support Primary care team to manage above conditions and ongoing care needs.
[2025-06-09] VITALS (39 sets, daily range): BP systolic 99–137; BP diastolic 57–97; PULSE 100–145; RESP 7–57; TEMP 36.8–38.6; O2SAT 97–100
[2025-06-09 05:43] LABS: Basophils # (Auto) 0.1 Thou/mm3 (0.0-0.2); Basophils % (Auto) 1 % (0-2.5); Eosinophils # (Auto) 0.4 Thou/mm3 (0.0-0.5); Eosinophils % (Auto) 5 % (0-10); Hematocrit 23.7 % (41.0-53.0); Immature Granulocytes Auto 0.04 Thou/mm3 (0.00-0.00); Lymphocytes # (Auto) 1.7 Thou/mm3 (1.0-4.8); Lymphocytes % (Auto) 21 % (10-50); Mean Corpuscular HGB Conc 31.6 g/dl (31.0-37.0); Mean Corpuscular Hemoglobin 26.9 pg (25.0-35.0); Mean Corpuscular Volume 85 fL (80-100); Monocytes # (Auto) 0.9 Thou/mm3 (0.0-0.8); Monocytes % (Auto) 12 % (0-12); Neutrophils # (Auto) 4.7 Thou/mm3 (1.8-7.7); Neutrophils % (Auto) 61 % (37-80); Nucleated Red Blood Cell # 0.00 Thou/mm3 (0.00-0.00); Nucleated Red Blood Cell % 0 /100 WBC (0); Platelet Count 401 Thou/mm3 (140-440); RDW Standard Deviation 50.4 fL (35.1-43.9); Red Blood Count 2.79 Miln/mm3 (4.50-5.90); White Blood Count 7.8 Thou/mm3 (3.8-10.6)
[2025-06-09 05:49] LABS: Hemoglobin 7.5 g/dL (13.5-16.0)
[2025-06-09 05:58] LABS: Alanine Aminotransferase 42 U/L (10-49); Albumin, Serum 3.9 gm/dL (3.5-5.0); Albumin/Globulin Ratio 1.6 (1.2-2.2); Alkaline Phosphatase 217 U/L (46-116); Anion Gap 11 (7-16); Aspartate Amino Transferase 40 U/L (0-34); BUN/Creatinine Ratio 20 Ratio (12-20); Bilirubin,Total 0.3 mg/dL (0.3-1.2); Blood Urea Nitrogen 10 mg/dL (9-23); Calcium 9.8 mg/dL (8.3-10.6); Calcium (Corrected) 9.9 mg/dL (8.5-10.1); Carbon Dioxide 28.6 mMol/L (20.0-31.0); Chloride 104 mMol/L (98-107); Creatinine (Component) 0.5 mg/dL (0.6-1.3); Estimated Creatinine Clearance 177.9 mL/min (>60); Globulin 2.4 gm/dL (2.3-3.5); Glucose 99 mg/dL (74-106); Magnesium 1.5 mg/dL (1.6-2.6); Osmolality,Calculated 285 (275-295); Phosphorous 4.4 mg/dL (2.4-5.1); Potassium 3.8 mMol/L (3.4-5.1); Sodium 144 mMol/L (136-145); Total Protein 6.3 gm/dL (5.7-8.2); eGFR > 60 See Note
[2025-06-09] MEDS: HEPARIN SOD INJ 5000 UNIT/ML VIAL SC ×3 (06:23→21:01)
[2025-06-09] MEDS: PIPER/TAZO INJ 4.5 GM in SODIUM CHLORIDE 0.9% (POP) 100 ML IV ×3 (06:23→21:01)
[2025-06-09] MEDS: PROPRANOLOL 10 MG TABLET GT ×3 (06:23→21:02)
[2025-06-09] MEDS: VALPROIC ACID SYRUP 250 MG/5 ML UDC GT ×3 (06:23→21:01)
[2025-06-09 06:38] LABS: Valporic Acid (Depak)* 31.4 mg/L (50.0-100.0)
[2025-06-09] MEDS: KETOROLAC INJ 30 MG/ML VIAL IVP (07:13)
[2025-06-09] MEDS: Magnesium Sulfate 4 GM Ivpb 4 GM/50 ML BAG IV (07:13)
[2025-06-09 08:08] LABS: CMV Specimen Source PLASMA
[2025-06-09] MEDS: SEVELAMER CARBONATE 800 MG TABLET PO ×3 (08:09→18:04)
[2025-06-09] MEDS: levETIRAcetam LIQD 500 MG/5 ML UDC 750 MG GT ×2 (08:09→21:01)
[2025-06-09] MEDS: LANSOPRAZOLE 30 MG TAB.RAP.DR GT (08:10)
--- NOTE | 2025-06-09 08:47 | ESOP_ITS ---
RE: CATARINA CARREON : 2000 DATE OF OPERATION: 06/08/2025 PREOPERATIVE DIAGNOSES: 1. Urinary retention. 2. Severe phimosis. PROCEDURE PERFORMED: Dorsal slit. TYPE OF ANESTHESIA: Local. INDICATION FOR PROCEDURE: This is a 25-year-old gentleman. He is admitted in the hospital. This patient has sepsis unspecified organism, cerebral palsy, epilepsy, and chronic maxillary sinusitis. The patient had urinary retention with severe phimosis. The patient is on intermittent catheterization every 4 hours because of urinary retention. It was difficult to locate his external urethral meatus. The patient was recommended dorsal slit procedure and complications were discussed with father. Informed consent is obtained. PROCEDURE: Parts were prepped and draped in a usual sterile fashion. Next, 2% lidocaine without epinephrine was instilled into the dorsal aspect of the prepuce. About a 1.5 cm skin incision was made. Proper hemostasis was secured. Skin to mucosa was approximated with 3-0 chromic in interrupted fashion. No active bleeding was seen. Sterile dressings were applied. The patient tolerated the procedure well. DT: 14:46:33 TT: 15:34:00 Ref: [id number] - TID: [id number]
--- NOTE | 2025-06-09 09:36 | ESPR_ITS ---
<Statement entered by Jeanine Baeza MD - 06/10/25 07:31> N TOTAL TIME: 45MINUTES ON DIRECT MEDICAL CARE, MANAGEMENT - COORDINATION AND COUNSELING > 50% OF TOTAL TIME I saw and evaluated the patient. I reviewed the resident?s note and agree with findings and plan as documented in the resident?s note. has been weaned off versed gtt more awake but intermittent agitation noted - pain also on ddx no fever so far in 24hr trach secretions slight green tinged no recurring mucus plug kept on PSV - but adjustin IP as needed <Statement entered by Alexandr Easton MD - 06/09/25 13:48> I have reviewed the note and agree with the resident's assessment & plan with exceptions as below. I have personally reviewed labs, imaging, home meds/prior records, examined the patient, formulated and discussed management plan with my attending. Patient seen and examined at bedside this AM. No overnight events. MRI degraded due to patient motion, but very low suspicion for osteomyelitis due to no bacteremia in the past and no physical signs of osteomyelitis on PE. Swelling at surgical site in penis without any bleeding. Patient off versed drip today and on PS. Will increase pressure if tidal volumes decrease without any other underlying cause. Parents were updated by Dr. Maravilla using a do all operator. No other complaints at this time, will continue to monitor for further fevers. Alexandr Easton PGY2 Disclaimer: Even though this this note was dictated by speech recognition and even though it was carefully revised there may still be minor errors in concrete floor installer due to voice recognition software. Documentation for date of: 06/09/25 Subjective Subjective Interval history: 25-year-old male with cerebral palsy, asthma, seizure disorder, chronic mastoiditis, recurrent pneumonia, and chronic PEG tube dependence presented with fever and seizure, was admitted for sepsis workup, and later transferred to the ICU on 05/09/2025 where he underwent intubation and eventually underwent tracheostomy due to not being able to take off mechanical ventilator and increased accretions. Patient had a prolonged ICU stay until 05/31/2025 when he was downgraded back to the medical floors that his fever had subsided after medications which could have caused several changes and then were discontinued. Patient in the ICU received multiple full treatments with antibiotics including meropenem and got a bronchoscopy throughout the ICU stay. Once patient was downgraded to the medical floors on 06/01/2025 patient spiked a fever of 101.8 and was more tachycardic. IV fluids were given at this time and Versed pushes were also given for agitation. Hospitalist team then repeated blood cultures and urine cultures as well as sputum cultures. Patient sputum culture on 06/01/2025 did grow Pseudomonas aeruginosa sensitive to Zosyn and his urine did grow ESBL E. coli which was sensitive to Zosyn as well. Patient was also seen on 06/03/2025 by ENT and recommended acetic acid irrigations to the left ear with clotrimazole or VoSol drops twice daily for 10 days and also stated no need for surgical intervention for mastoiditis at this time. Even on recommendations by ENT and after starting fluconazole as well as Zosyn on 06/05/2025 patient still spiking fevers and today his heart was in the 160s and he was very tachypneic. On assessment patient was noted to have increased respiratory rate, was diaphoretic, and seemed in significant discomfort and was agitated. At this time patient was transferred to the ICU for further level care given fever of unclear etiology and increased agitation as well as breathing over the vent. 06/06/25: Patient seen and assessed at bedside. Was informed by family overnight that patient was previously on Seroquel 50 mg every morning as well as 100 mg nightly for agitation prior to admission. Restarted last night. Continued to have fevers (highest at 101.4F), resolved after 4AM. Tachycardia also resolved around the same time. Continues to be afebrile. On physical exam, noted to have bitten off the tip of his tongue, likely in setting of agitation overnight. Held Lovenox in setting of new active bleed. Will start on paralytic cistracurium to relax jaw and Surgicel bleeding site. Will increase Versed for sedation of RASS -4, will not start new sedative to avoid complicating his current condition and possibly inducing serotonin syndrome like previously during this admission. On labs, WBC continues to uptrend and phosphate slowly increasing. Restarted on sevelamer. Ordered bone scan to evaluate osteoblast activity (which may also be contributing to patient's recurrent fevers) and other potential sources of bone infection. Magnesium 1.7, repleted with IV mag sulfate 4g. Patient's family was updated via phone with woodworking craftsman present of patient's current condition including tongue laceration. Notified them of current plan of action including need for paralytic at this time, they were agreeable to plan. Continue Zosyn, fluconazole, and clotrimazole ear drops. 06/07/2025: Overnight patient required injections of lidocaine epi injections to control gum bleeding, overnight had ventilator asynchrony and patient's ventilator mode was switched to ACMV with PRVC to improve tidal volume. Chest x-ray obtained this morning shows left base consolidation, consent for bronchoscopy obtained from family. Patient on Nimbex and Versed drip, bronchoscopy revealed large mucous plug left lower lobe, patient switched to volume control after. Weaned off of Nimbex, currently on Versed with RASS goal -4 will down titrate Versed as tolerated. Oral packing which was placed overnight was removed, no signs of active bleeding. Patient will be evaluated by ENT, urology in AM. 06/08/2025: Patient was seen and examined at bedside this morning. Overnight patient did spike fevers with the highest being 101.3. Otherwise has had no further bleeding from mouth. Off Nimbex, still currently on Versed drip. Will start and wean patient down from Versed drip with a RASS of 0 until we are entirely off the Versed drip only using Versed pushes as needed for agitation. Will also increase patient's phenobarbital to twice daily from at bedtime and start clonazepam 0.5 mg BID. Ventilator setting on PS. ENT saw the patient stated no need for further ear drops as no visible drainage appreciated, but did recommend nasal saline gel for moisturizing, but currently unavailable in the hospital after speaking with pharmacy. Urology saw the patient today and did a dorsal slit procedure at bedside after consent was obtained from the patient's father using do all operator, Armando ID #[id number].. Patient received fentanyl x3 for pain control as well as versed 2mg x2 during the procedure. Again tried to reach out to patient's mother and father using do all operator, Macario ID [id number], but was unsuccessful as they were unreachable to both phone numbers available. Spoke with patient's mother and provided updates on patient's current condition. Answered all questions and concerns and patient's family was agreeable. Did state today's plan which included MRI L LE to r/o osteomyelitis, ENT specialist to see the patient, decreasing sedation, and that we are waiting for Urology concerning phimosis and need of urine culture repeat. placement director was used, Maritza ID #[id number]. Priorly also used do all operator Mary ID #[id number], but patient's mother and father did not answer therefore left a message and subsequently got a call back from patient's mother and used do all operator Maritza ID #[id number]. Patient's mother, brother, and father came by and were updated about the procedure with in hospital do all operatorhumera. Explained that patient may need to go to subacute for further rehab as he is unlikely to be weaned off mechanical ventilator during hospital admission. Also updated them on the patient's fever and that we are weaning off sedation. They stated they were agreeable with treatment plan and if any emergency came up that they would be okay with anything to save his life even if they were notified after any emergent procedure. All their questions were answered. 06/09/2025: No acute events overnight. Patient seen and examined at bedside. Patient was put on pressure support this morning, however patient was observed to be more agitated with increased respiratory rate and heart rate, so pressure support was increased which resolved the patient's distress and decreased patient's respiratory rate. Patient is currently still on Versed drip with plans to wean patient off and transition to Versed pushes as needed. MRI of left lower leg showed severely degraded images due to continuous patient motion. Examination of the patient's lower extremities today show no pain on deep palpation of both his knees and his tibial or fibular regions. Will hold off on pursuing any additional imaging at this time and reevaluate tomorrow. Will continue with tube feeds and monitor the patient for additional oral trauma. Morphine pushes as needed started for pain given dorsal slit procedure yesterday with agitation and withdrawal on palpation of penis. This information was communicated to the patient's father over the phone using certified bowling floor desk clerk ID [id number]. The patient's mother came in person in the afternoon and was updated in person using certified bowling floor desk clerk Leanna HARMAN. Exam Vital Signs Temp Pulse Resp BP Pulse Ox O2 Del Method O2 Flow Rate 99.5 F 145 H 31 H 134/82 H 100 Mechanical Ventilation 35 06/09/25 04:00 06/09/25 06:39 06/09/25 06:08 06/09/25 06:39 06/09/25 06:39 06/06/25 04:00 06/05/25 16:00 FiO2 30 06/09/25 07:21 Narrative Exam Gen: more alert and calm, trached HEENT: NCAT, EOMI, Pupils reactive KARLO, not icteric, Bilateral inferior eye scleral hemorrhage, improving. External ears normal. No rhinorrhea. Moist mucous membranes with no visible blood. Neck: Supple, full range of motion, no observable masses, No meningeal sign. Lungs: Coarse breath sounds bilateral, mechanically ventilated. CV: Tachycardic, no murmurs appreciated. Abdomen: Soft, nondistended, No rebound tenderness, PEG tube in place, peristalsis present. MSK: No lower extremity edema, no redness, peripheral pulses presents, Contracted and swollen hands, decreased tone : Penis glan visible and clean dressing around penis s/p dorsal slit procedure. Pain to light palpation of penis. Skin: No, petechiae, lesions, erythematous Neuro: Alert and moving extremities, pupils reactive Objective Labs 06/09/25 04:50 06/09/25 04:50 Labs: Laboratory Results - last 24 hr 05/28/25 06/02/25 06/09/25 04:22 16:20 04:50 WBC 7.8 D RBC 2.79 L Hgb 7.5 L Hct 23.7 L MCV 85 MCH 26.9 MCHC 31.6 RDW Std Deviation 50.4 H Plt Count 401 D Neut % (Auto) 61 Lymph % (Auto) 21 Stearns % (Auto) 12 Eos % (Auto) 5 Baso % (Auto) 1 Neut # (Auto) 4.7 Lymph # (Auto) 1.7 Stearns # (Auto) 0.9 H Eos # (Auto) 0.4 Baso # (Auto) 0.1 Immature Gran # (Auto) 0.04 H Absolute Nucleated RBC 0.00 Immature Gran % 1 H Nucleated RBC % 0 Sodium 144 Potassium 3.8 D Chloride 104 Carbon Dioxide 28.6 Anion Gap 11 BUN 10 Creatinine 0.5 L Estim Creat Clear Calc 177.9 eGFR > 60 BUN/Creatinine Ratio 20 Glucose 99 Calculated Osmolality 285 Calcium 9.8 Corrected Calcium 9.9 Phosphorus 4.4 Magnesium 1.5 L Total Bilirubin 0.3 AST 40 H ALT 42 Alkaline Phosphatase 217 H Total Protein 6.3 Albumin 3.9 Globulin 2.4 Albumin/Globulin Ratio 1.6 Valproic Acid 31.4 L CMV Specimen Source PLASMA ABG Interpretation ABG results: 05/09/25 05/09/25 05/09/25 11:56 13:40 18:50 ABG pH 7.40 7.27 L D 7.28 L ABG pCO2 40 43 55 H D ABG pO2 131 H 53 L* D 70 L ABG HCO3 25 20 26 ABG O2 Saturation 99 H 81 L 92 ABG Base Excess 0 -7 L -2 VBG pH VBG pCO2 VBG pO2 VBG Base Excess 05/10/25 05/11/25 05/12/25 00:14 05:06 01:18 ABG pH 7.35 7.33 L 7.39 ABG pCO2 42 D 54 H D 48 ABG pO2 103 D 93 94 ABG HCO3 23 28 H 29 H ABG O2 Saturation 99 H 98 98 ABG Base Excess -3 2 3 VBG pH VBG pCO2 VBG pO2 VBG Base Excess 05/12/25 05/12/25 05/13/25 03:58 11:50 05:10 ABG pH 7.46 H 7.39 7.19 L* D ABG pCO2 41 48 60 H D ABG pO2 105 58 L* D 114 H D ABG HCO3 29 H 29 H 23 ABG O2 Saturation 99 H 90 L 98 ABG Base Excess 5 H 4 H -6 L VBG pH VBG pCO2 VBG pO2 VBG Base Excess 05/17/25 05/18/25 05/19/25 01:30 04:09 04:43 ABG pH 7.38 7.43 7.47 H ABG pCO2 46 44 43 ABG pO2 90 83 80 L ABG HCO3 27 H 29 H 31 H ABG O2 Saturation 98 97 97 ABG Base Excess 2 5 H 7 H VBG pH VBG pCO2 VBG pO2 VBG Base Excess 05/21/25 05/21/25 05/31/25 04:18 06:33 08:06 ABG pH 7.37 D 7.46 H ABG pCO2 50 H 38 D ABG pO2 40 L* D 121 H D ABG HCO3 29 H 27 H ABG O2 Saturation 66 L 100 H ABG Base Excess 3 3 VBG pH 7.55 VBG pCO2 31 L VBG pO2 144 H VBG Base Excess 5 H 06/05/25 06/05/25 06/06/25 13:37 23:46 05:20 ABG pH 7.47 H 7.45 ABG pCO2 35 38 ABG pO2 200 H 54 L* D ABG HCO3 25 26 ABG O2 Saturation 101 H 89 L ABG Base Excess 2 2 VBG pH 7.50 VBG pCO2 34 L VBG pO2 90 H VBG Base Excess 4 H Quality Measures Quality Measures VTE prophylaxis (SCDs) and sepsis Current suspected stage: ruled out Possible source: pulmonary Blood cultures ordered: yes Antibiotic ordered: Yes Assessment & Plan Assessment Current Active Medications: Generic Name Dose Route Start Last Admin Trade Name Freq PRN Reason Stop Dose Admin Clonazepam 0.5 mg 06/08/25 10:30 06/09/25 08:09 Clonazepam 0.5 Mg Tablet PO 06/13/25 10:29 0.5 mg BID KYA Administration Ferrous Sulfate 325 mg 06/01/25 09:00 06/09/25 08:09 Ferrous Sulfate 300 Mg/5 Ml Udc PO 07/01/25 08:59 325 mg QOD KYA Administration Heparin Sodium (Porcine) 5,000 unit 06/08/25 14:00 06/09/25 06:23 Heparin Sod Inj 5000 Unit/Ml Vial SC 06/22/25 13:59 5,000 unit Q8HR KYA Administration Piperacillin Sod/Tazobactam 100 mls @ 200 mls/hr 06/05/25 14:00 06/09/25 06:23 Sod 4.5 gm/ Sodium Chloride IV 06/12/25 13:59 200 mls/hr Q8HR KYA Administration Protocol Midazolam HCl 100 mg in 100 mls @ 1 mls/hr 06/08/25 17:19 Versed Pf Inj In Ns Premix IV 06/12/25 18:59 .Q24H PRN PER PROTOCOL Protocol 1 MG/HR Magnesium Sulfate 4 gm in 50 mls @ 12.5 mls/hr 06/09/25 06:50 06/09/25 07:13 Magnesium Sulfate Ivpb IV 06/09/25 10:49 12.5 mls/hr X1 ONE Administration Ibuprofen 200 mg 06/06/25 03:30 06/06/25 03:36 Ibuprofen Susp 100 Mg/5 Ml Udc PO 07/03/25 09:48 200 mg Q6HR PRN Administration FEVER > 101 Lansoprazole 30 mg 05/28/25 09:00 06/09/25 08:10 Lansoprazole 30 Mg Tab. GT 06/27/25 08:59 30 mg QDAY KYA Administration Levetiracetam 750 mg 05/30/25 09:00 06/09/25 08:09 Levetiracetam Liqd 500 Mg/5 Ml Udc GT 06/29/25 08:59 750 mg BID KYA Administration Midazolam HCl 2 mg 06/07/25 15:59 06/08/25 18:41 Midazolam Inj 1 Mg/Ml Vial 2 Ml IVP 06/12/25 15:58 2 mg Q1HR PRN Administration AGITATION OR ANXIETY Morphine Sulfate 2 mg 06/09/25 06:58 Morphine Sulf Inj 4 Mg/Ml Vial IVP Q3H PRN Breakthrough Pain Ondansetron HCl 4 mg 05/27/25 14:37 Ondansetron Odt 4 Mg Tabrap GT 06/26/25 14:36 Q6HR PRN NAUSEA OR VOMITING Protocol Phenobarbital 64.8 mg 06/08/25 09:00 06/09/25 08:08 Phenobarbital 32.4 Mg Tablet GT 06/22/25 08:59 64.8 mg BID KYA Administration Polyethylene Glycol 17 gm 05/16/25 09:15 06/08/25 09:36 Polyethylene Glycol 17 Gm Packet PO 06/15/25 09:14 Not Given On Hold: 06/09/25 06:55 QDAY KYA Propranolol HCl 10 mg 06/06/25 06:00 06/09/25 06:23 Propranolol 10 Mg Tablet GT 07/06/25 05:59 10 mg TID KYA Administration Quetiapine Fumarate 50 mg 06/06/25 09:00 06/09/25 08:09 Quetiapine Fumarate 25 Mg Tablet GT 07/06/25 08:59 50 mg QDAY KYA Administration Quetiapine Fumarate 100 mg 06/05/25 22:40 06/08/25 21:10 Quetiapine Fumarate 100 Mg Tablet GT 07/05/25 22:39 100 mg HS KYA Administration Sevelamer Carbonate 800 mg 06/06/25 08:00 06/09/25 08:09 Sevelamer Carbonate 800 Mg Tablet PO 07/06/25 07:59 800 mg TIDWM KYA Administration Sodium Chloride 3 ml 05/17/25 11:43 Sodium Chloride Rt Racquel 0.9% 3 Ml Nebu INH 06/16/25 11:42 PRN PRN SOLN Valproic Acid 250 mg 05/27/25 18:00 06/09/25 06:23 Valproic Acid Syrup 250 Mg/5 Ml Udc GT 06/26/25 17:59 250 mg Q8HR KYA Administration Plan 25-year-old male with history of cerebral palsy, asthma, seizure disorder, chronic mastoiditis, recurrent pneumonia, and chronic PEG tube dependence presented on 05/08/2025 with fever and seizure, was admitted for sepsis workup, and later transferred to the ICU on 05/09/25 for increased agitation, tachypnea, and increased secretions with recurrent fevers. Was downgraded on 05/31/25 due to resolution of fever for at least 48 hours however was upgraded back on 06/05/25 due to increased work of breathing, ventilator asynchrony agitation and fever. Neurological #Agitation Differential diagnosis: ICU acquired delirium, opiate withdrawal, delirium Diagnostic workup: - Patient was weaned off of sedation and was downgraded to telemetry, however as sedatives were down titrated and telemetry patient had episode of severe agitation and ventilator asynchrony and was upgraded to ICU for further intervention. - EEG 05/11 unremarkable. Repeat EEG 05/20 showed electrographic seizure activity. Continuous EEG 05/22-05/23: no seizure activity or status epilepticus. - MRI brain 05/23: showed chronic infections, no acute pathology. Treatment: -Cisatracurium gtt discontinued. -Versed drip, weaning down RASS 0 -Continue Seroquel 50 mg every morning and 100 mg at bedtime -Phenobarbital 64.8 mg to twice daily -Started Clonazepam 0.5 mg BID -Oxycodone 10 mg 3 times daily Follow-up: - Down titrate Versed drip, currently on RASS 0, down titrate as tolerated - Use Versed pushes as needed #Seizure disorder by history #Cerebral palsy by history Diagnostic workup: - Active seizure disorder ruled out, multiple EEGs negative for seizure activity Treatment: -Continue Depakote 250 mg GT every 8 hours and Keppra 750 mg GT twice daily Follow-up: -Pending EEG results from 06/05/2025 Cardiology #Sinus tachycardia Differential diagnosis: Infection, hypersympathetic activity Diagnostic workup: -Did have positive sputum and urine culture for Pseudomonas and ESBL respectively -Patient's last fever was 06/06/2025 04:36 -Echocardiogram was obtained to rule out any vegetations TTE shows normal systolic function, EF 55 to 60%, diastolic dysfunction grade 1, no evidence of vegetation or endocarditis Treatment: -Continue propranolol 10 mg 3 times daily -Continue antibiotics Follow-up: -Monitor for fever, use ibuprofen as needed for fever episode -Telemetry monitoring Pulmonary #Left lower lobe mucous plug Diagnostic workup: - Chest x-ray obtained 06/07 AM, showed a left lower lobe consolidation, ddx left lower lobe pneumonia versus mucous plug versus left pleural effusion versus mucous plug versus atelectasis lung ultrasound at bedside, effusion ruled out, no hepatization of the lung noted. Consent obtained from family for bronchoscopy. - Bedside bronchoscopy showed left lower lobe mucous plug, suction. Treatment: -Bedside bronchoscopy (06/07/2025) with clearance of mucous plug done successfully Follow-up: - Once weaned off sedation and patient has cough reflex intact and more awake/alert, will consider chest physiotherapy. #Mechanical ventilation #Chronic respiratory failure status post tracheostomy 05/26 Currently on PS Diagnostic workup: -Patient failed extubation during the hospitalization on 05/12, was reintubated overnight 05/13. -Unable to wean patient off ventilator, tracheostomy performed 05/26/2025, sutures removed 06/06/2025 -Patient underwent bronchoscopies 05/14, 05/17 and 06/05 for increased secretions - Currently on PS, will keep PS overnight Treatment: -Monitor SpO2, goal greater than 92 -Continue mechanical ventilation on PS Follow-up: -Continue to down titrate pressure on PS as tolerated until 5 mmHg, then transition to Blow-by if patient tolerates low pressure PS ventilation #Asthma by history Diagnostic workup: - Patient has history of asthma on montelukast, albuterol as needed at home Treatment: - Currently on mechanical ventilation Gastrointestinal #Chronic PEG tube dependence Differential diagnosis: Chronic dysphagia likely in setting of cerebral palsy Diagnostic workup: -Patient was previously on Jevity 1.5, switched to Nepro due to hyperphosphatemia. Treatment: -Resume Nepro trickle feeds, advance as tolerated Follow-up: - Goal tube feeds as tolerated #Transaminitis, resolved #Hypoalbuminemia, resolved Renal/Genitourinary #Elevated alkaline phosphatase, improving #Low PTH #Abnormal nuclear medicine bone scan Differential diagnosis: increased osteoblastic activity in setting of vegetative state, bone infection (particularly of left mastoid), hypoparathyroidism, osteoarthritis Diagnostic workup: - PTH intact low at 3.6, calcium 9.9, vitamin D 25-OH 18.1 - Renal function intact, at baseline - Nuclear medicine bone scan shows minor asymmetric uptake left knee and mild increased uptake mid left tibia - Knee x-ray 06/06 and tibia-fibula x-ray 06/06 showed no findings diagnostic for osseous metastatic disease - MRI left leg 06/08 images severely degraded by continuous patient motion - No pain to palpation of bilateral lower extremities Treatment: - Continue sevelamer 800 mg 3 times daily #Phimosis s/p dorsal slit procedure #Paraphimosis (resolved) #Balanitis (resolved) Diagnostic workup: - Edema and tenderness of the glans penis, Swelling of the distal retracted foreskin, Constricting band of tissue proximal to the head of the penis at the coronal sulcus on presentation, s/p reduction of the paraphimosis by urologist Dr. Vargas on 05/09. - Patient has somewhat retractable foreskin, has good urine output, no swelling noted, has external catheter draining well Treatment: - Follow-up by urologist Dr. Vargas and performed dorsal slit procedure on 06/08 - Morphine 2 mg IVP every 3 hours as needed for breakthrough pain Follow-up: - Every 4 hour bladder scan and straight cath as needed for >400cc. #Hyperkalemia, resolved #VITALIY resolved #Lactic acidosis resolved #Acute kidney injury resolved #Rhabdomyolysis resolved #Hyperphosphatemia, resolved Endocrine No active problems Hematology #Acute nonocclusive thrombus in the left brachial vein Diagnostic workup: - Venous doppler study of upper extremities 05/16: Normal right upper extremity deep venous system. Positive for nonocclusive thrombus in the left brachial vein. - Per chart review and patient's parents, patient does not have history of clots. - Given patient's inability to safely engage and risk of continued trauma to buccal mucosa by biting will not do full dose anticoagulation given increased risk of bleeding Treatment: - Heparin loading dose and ggt. Lovenox to heparin due to heparin?s shorter half-life, which allows for more rapid cessation in the event of bleeding, a shorter half life and can be stopped if bleeding occurs. - Stopped heparin ggt due to hematuria on 05/18. - Restarted Lovenox 05/31 for tx of primary upper extremity deep vein thrombosis, anticoagulation should be continued for a minimum of three months following the initial thrombotic event, but given patient is high risk to buccal mucosa trauma will not pursue therapeutic dose as high risk of bleeding. Follow-up: - Heparin SC every 8 hours for DVT prophylaxis #Normocytic Anemia Differential diagnosis: Anemia of chronic disease, nutritional anemia, iatrogenic Diagnostic workup: -Likely multifactorial, currently not an active concern Treatment: -Monitor CBC, transfuse if hemoglobin less than 7 #Leukocytosis, resolved #Thrombocytopenia, resolved #Thrombocytosis, resolved Infectious Disease #Bilateral chronic mastoiditis #Sinusitis #Bilateral otitis media and otitis externa Diagnostic workup: -White fungal debris and clear drainage noted by accounting lecturer, tympanic membrane not visualized on left ear -Right ear canal with small amount of clear drainage, tympanic membrane generally thickened and opaque -05/08 CT Head: prominent sphenoid ethmoid maxillary antral sinusitis, bilateral chronic mastoiditis, bilateral otitis media. -05/08 CT Orbit Sella Inner: severe bilateral chronic mastoiditis, bilateral otitis externa and otitis media, bilateral cholesteatomas in the attics. Treatment: -Ofloxacin Opt racquel 0.3% 5 drops Both ears bid (05/09-05/18, 05/21-05/31) -Ciprofloxacin Op Racquel 0.3% ear drops (06/02-06/03) -Discontinued Acetic acid irrigations to left ear, clotrimazole drops both ears twice daily for 10 days (06/04-06/08/2025) as per ENT #UTI, ESBL E. coli #Pseudomonas aeruginosa, sputum positive Differential diagnosis: Colonization, active infection Diagnostic workup: Sputum culture 06/05 shows sensitive to Zosyn and intermittent resistance to cefepime Sputum culture 06/01 shows Pseudomonas sensitive to Zosyn and intermittent resistant to cefepime Sputum culture from 05/09 shows Pseudomonas only sensitive to meropenem and tobramycin Sputum culture from 05/20 shows Brittney albicans Sputum culture 05/13,05/19 negative Urine culture 06/01 shows ESBL E. coli sensitive to Zosyn CSF culture 05/26, 05/10 negative ENT specimen 05/12 left ear shows Brittney parapsilosis ENT culture from right ear 05/12 shows ESBL E. coli sensitive to Zosyn, meropenem and ertapenem Blood cultures obtained 05/08, 05/11, 05/16, 06/01, 06/05 negative, bronchial washing 05/14 for fungal cultures pending Treatment: - Currently on IV Zosyn 06/05- IV Zosyn 3.375g x1 (at 05/08) IV Ceftriaxone 1g x1 (at 05/08) IV Acyclovir 640mg q8hr (05/08-05/11) IV Ceftriaxone 2g q12hr (05/08-05/11) IV Vancomycin qd (05/08-05/11) since MRSA screen is negative IV Meropenem 1000mg q8hr (05/12-05/22, 05/24-05/25) IV Doxycycline (05/16-05/18) IV Micafungin 100mg qd (05/28-05/30, 06/01-06/03) IV fluconazole 06/05-06/07 Follow-up: - Continue to monitor for fever Integumentary #Tongue Laceration, traumatic #Gingivial Bleeding, Oral Trauma Diagnostic workup: -Known to have episodes of jaw spasms and teeth clenching with agitation. Had significant trauma to gums and tongue due to clenching of teeth 06/06 - No further bleeding appreciated in oral mucosa Treatment: - Patient required cisatracurium to relax jaw, pressure was applied locally, oral packing none, injections of lido?epinephrine x 3 to gums on 06/06 night Follow-up: - Monitor for bleeding Health Maintenance: Feeding/fluids: Currently on trickle feeds with Nepro, free water fluid Analgesia: Oxycodone via G-tube, Morphine IVP PRN Sedation: Phenobarbital BID, Clonazepam 0.5mg BID, Versed gtt Thromboprophylaxis: SCDs, heparin SC Head up position: Head of bed elevated Ulcer prophylaxis: Lansoprazole Glycemic control: AM blood glucose within normal limits Spontaneous breathing trial: Chronically trached on mechanical ventilation Bowel care: On MiraLAX daily Indwelling catheter removal: No chronic Osborne/lines De-escalation of antibiotics: Will continue with Zosyn, history of multi drug- resistant organisms Code status: Full code Case disclosed with Attending Dr. Jeanine Baeza and senior resident Dr. Alvarez (PGY-2) Alejandro Maravilla PGY-1
[2025-06-09] MEDS: MORPHINE SULF INJ 4 MG/ML VIAL 2 MG IVP ×3 (13:52→23:39)
[2025-06-09] MEDS: MIDAZOLAM INJ 1 MG/ML VIAL 2 ML 2 MG IVP ×3 (14:39→23:40)
--- NOTE | 2025-06-09 14:56 | PC.SS ---
Updated clinicals submitted to [facility].
[2025-06-09] MEDS: oxyCODONE HCL 5 MG IR TAB 10 MG GT ×2 (16:06→21:02)
[2025-06-09] MEDS: ACETAMINOPHEN 325 MG TABLET PO (16:21)
[2025-06-09 17:52] LABS: (1-3)-B-D-glucan* 58 pg/mL
[2025-06-09] MEDS: ACETAMINOPHEN SOL 325 MG/10 ML UDC GT (21:19)
[2025-06-09] MEDS: Magnesium Sulfate 2 GM Ivpb 2 GM/50 ML BAG IV (23:39)
[2025-06-10] VITALS (38 sets, daily range): BP systolic 92–177; BP diastolic 66–126; PULSE 108–158; RESP 12–36; TEMP 37.3–38.8; O2SAT 86–100; BMI 26.9
[2025-06-10] MEDS: MORPHINE SULF INJ 4 MG/ML VIAL 1 MG IVP (00:13)
[2025-06-10] MEDS: MIDAZOLAM INJ 1 MG/ML VIAL 2 ML 2 MG IVP ×7 (00:59→14:31)
[2025-06-10] MEDS: HYDROmorphone INJ 2 MG/ML VIAL 1 MG IVP (02:36)
[2025-06-10 05:18] LABS: Basophils # (Auto) 0.1 Thou/mm3 (0.0-0.2); Basophils % (Auto) 1 % (0-2.5); Eosinophils # (Auto) 0.6 Thou/mm3 (0.0-0.5); Eosinophils % (Auto) 7 % (0-10); Hematocrit 23.2 % (41.0-53.0); Immature Granulocytes Auto 0.03 Thou/mm3 (0.00-0.00); Lymphocytes # (Auto) 2.3 Thou/mm3 (1.0-4.8); Lymphocytes % (Auto) 29 % (10-50); Mean Corpuscular HGB Conc 31.9 g/dl (31.0-37.0); Mean Corpuscular Hemoglobin 26.9 pg (25.0-35.0); Mean Corpuscular Volume 84 fL (80-100); Monocytes # (Auto) 1.0 Thou/mm3 (0.0-0.8); Monocytes % (Auto) 13 % (0-12); Neutrophils # (Auto) 3.9 Thou/mm3 (1.8-7.7); Neutrophils % (Auto) 50 % (37-80); Nucleated Red Blood Cell # 0.00 Thou/mm3 (0.00-0.00); Nucleated Red Blood Cell % 0 /100 WBC (0); Platelet Count 403 Thou/mm3 (140-440); RDW Standard Deviation 47.6 fL (35.1-43.9); Red Blood Count 2.75 Miln/mm3 (4.50-5.90); White Blood Count 7.8 Thou/mm3 (3.8-10.6)
[2025-06-10 05:39] LABS: Hemoglobin 7.4 g/dL (13.5-16.0)
[2025-06-10 05:44] LABS: Alanine Aminotransferase 46 U/L (10-49); Albumin, Serum 4.0 gm/dL (3.5-5.0); Albumin/Globulin Ratio 1.5 (1.2-2.2); Alkaline Phosphatase 212 U/L (46-116); Anion Gap 11 (7-16); Aspartate Amino Transferase 29 U/L (0-34); BUN/Creatinine Ratio 16 Ratio (12-20); Bilirubin,Total 0.3 mg/dL (0.3-1.2); Blood Urea Nitrogen 8 mg/dL (9-23); Calcium 10.1 mg/dL (8.3-10.6); Calcium (Corrected) 10.1 mg/dL (8.5-10.1); Carbon Dioxide 27.8 mMol/L (20.0-31.0); Chloride 101 mMol/L (98-107); Creatinine (Component) 0.5 mg/dL (0.6-1.3); Estimated Creatinine Clearance 170.8 mL/min (>60); Globulin 2.6 gm/dL (2.3-3.5); Glucose 91 mg/dL (74-106); Magnesium 2.1 mg/dL (1.6-2.6); Osmolality,Calculated 277 (275-295); Phosphorous 4.3 mg/dL (2.4-5.1); Potassium 3.7 mMol/L (3.4-5.1); Sodium 140 mMol/L (136-145); Total Protein 6.6 gm/dL (5.7-8.2); eGFR > 60 See Note
[2025-06-10] MEDS: PROPRANOLOL 10 MG TABLET GT ×3 (05:47→21:09)
[2025-06-10] MEDS: PIPER/TAZO INJ 4.5 GM in SODIUM CHLORIDE 0.9% (POP) 100 ML IV ×3 (05:47→21:10)
[2025-06-10] MEDS: oxyCODONE HCL 5 MG IR TAB 10 MG GT ×3 (05:48→21:09)
[2025-06-10] MEDS: HEPARIN SOD INJ 5000 UNIT/ML VIAL SC ×3 (05:49→21:33)
[2025-06-10 06:24] LABS: Interpretation NEGATIVE
[2025-06-10] MEDS: levETIRAcetam LIQD 500 MG/5 ML UDC 750 MG GT ×2 (08:09→20:07)
[2025-06-10] MEDS: VALPROIC ACID SYRUP 250 MG/5 ML UDC 500 MG GT ×2 (08:10→20:07)
[2025-06-10] MEDS: LANSOPRAZOLE 30 MG TAB.RAP.DR GT (08:11)
[2025-06-10] MEDS: SEVELAMER CARBONATE 800 MG TABLET PO ×3 (08:22→17:45)
--- NOTE | 2025-06-10 09:49 | ESPR_ITS ---
<Statement entered by Jeanine Baeza MD - 06/10/25 19:19> TOTAL TIME: 45MINUTES ON DIRECT MEDICAL CARE, MANAGEMENT - COORDINATION AND COUNSELING > 50% OF TOTAL TIME I saw and evaluated the patient. I reviewed the resident?s note and agree with findings and plan as documented in the resident?s note. He is more awake and clearly has TD c/w motor findings (facial and UE) Increased benzo's and phenobarb no signs of worsening infx hemodynamics acceptable tolerating PSV - now weaned to IP 10cm h20 tolerating TFs family updated <Statement entered by Alexandr Easton MD - 06/10/25 18:34> I have reviewed the note and agree with the resident's assessment & plan with exceptions as below. I have personally reviewed labs, imaging, home meds/prior records, examined the patient, formulated and discussed management plan with my attending Patient was seen and examined at bedside's morning. No acute overnight events. Last fever was yesterday evening around 5 PM and since then no further fevers. Continues to be on pressor support. Patient is still having increased nonpurposeful movements in all 4 extremities as well as facial movement and expressions which are highly suggestive for tardive dyskinesia. Given the patient also improved while he was sedated with Versed drip's likely tardive dyskinesia at this time. Given this we will discontinue Seroquel and will also start patient on deutetrabenazine (Austedo) or tetrabenazine once available in our pharmacy, which is likely on Friday. Spoke with patient's family using a in-hospital binding folder machine to update the patient's father and mother about current plan they were agreeable with the plan as well as discontinuing Seroquel and starting new regimen with deutetrabenazine (Austedo) or tetrabenazine and to monitor closely for any side effects. Also start 0.5 mg every 4 hours for pain as patient seems to be in discomfort likely due to swelling around the surgical site on the prepuce. Increased phenobarbitol to 129.6 TID and clonazepam TID. Patient's family agreeable to bring medication from home as medication in non formulary and was prescribed. Alexandr Easton PGY2 Disclaimer: Even though this this note was dictated by speech recognition and even though it was carefully revised there may still be minor errors in administrative manager due to voice recognition software. Documentation for date of: 06/10/25 Subjective Subjective Interval history: 25-year-old male with cerebral palsy, asthma, seizure disorder, chronic mastoiditis, recurrent pneumonia, and chronic PEG tube dependence presented with fever and seizure, was admitted for sepsis workup, and later transferred to the ICU on 05/09/2025 where he underwent intubation and eventually underwent tracheostomy due to not being able to take off mechanical ventilator and increased accretions. Patient had a prolonged ICU stay until 05/31/2025 when he was downgraded back to the medical floors that his fever had subsided after medications which could have caused several changes and then were discontinued. Patient in the ICU received multiple full treatments with antibiotics including meropenem and got a bronchoscopy throughout the ICU stay. Once patient was downgraded to the medical floors on 06/01/2025 patient spiked a fever of 101.8 and was more tachycardic. IV fluids were given at this time and Versed pushes were also given for agitation. Hospitalist team then repeated blood cultures and urine cultures as well as sputum cultures. Patient sputum culture on 06/01/2025 did grow Pseudomonas aeruginosa sensitive to Zosyn and his urine did grow ESBL E. coli which was sensitive to Zosyn as well. Patient was also seen on 06/03/2025 by ENT and recommended acetic acid irrigations to the left ear with clotrimazole or VoSol drops twice daily for 10 days and also stated no need for surgical intervention for mastoiditis at this time. Even on recommendations by ENT and after starting fluconazole as well as Zosyn on 06/05/2025 patient still spiking fevers and today his heart was in the 160s and he was very tachypneic. On assessment patient was noted to have increased respiratory rate, was diaphoretic, and seemed in significant discomfort and was agitated. At this time patient was transferred to the ICU for further level care given fever of unclear etiology and increased agitation as well as breathing over the vent. 06/06/25: Patient seen and assessed at bedside. Was informed by family overnight that patient was previously on Seroquel 50 mg every morning as well as 100 mg nightly for agitation prior to admission. Restarted last night. Continued to have fevers (highest at 101.4F), resolved after 4AM. Tachycardia also resolved around the same time. Continues to be afebrile. On physical exam, noted to have bitten off the tip of his tongue, likely in setting of agitation overnight. Held Lovenox in setting of new active bleed. Will start on paralytic cistracurium to relax jaw and Surgicel bleeding site. Will increase Versed for sedation of RASS -4, will not start new sedative to avoid complicating his current condition and possibly inducing serotonin syndrome like previously during this admission. On labs, WBC continues to uptrend and phosphate slowly increasing. Restarted on sevelamer. Ordered bone scan to evaluate osteoblast activity (which may also be contributing to patient's recurrent fevers) and other potential sources of bone infection. Magnesium 1.7, repleted with IV mag sulfate 4g. Patient's family was updated via phone with binding folder machine present of patient's current condition including tongue laceration. Notified them of current plan of action including need for paralytic at this time, they were agreeable to plan. Continue Zosyn, fluconazole, and clotrimazole ear drops. 06/07/2025: Overnight patient required injections of lidocaine epi injections to control gum bleeding, overnight had ventilator asynchrony and patient's ventilator mode was switched to ACMV with PRVC to improve tidal volume. Chest x-ray obtained this morning shows left base consolidation, consent for bronchoscopy obtained from family. Patient on Nimbex and Versed drip, bronchoscopy revealed large mucous plug left lower lobe, patient switched to volume control after. Weaned off of Nimbex, currently on Versed with RASS goal -4 will down titrate Versed as tolerated. Oral packing which was placed overnight was removed, no signs of active bleeding. Patient will be evaluated by ENT, urology in AM. 06/08/2025: Patient was seen and examined at bedside this morning. Overnight patient did spike fevers with the highest being 101.3. Otherwise has had no further bleeding from mouth. Off Nimbex, still currently on Versed drip. Will start and wean patient down from Versed drip with a RASS of 0 until we are entirely off the Versed drip only using Versed pushes as needed for agitation. Will also increase patient's phenobarbital to twice daily from at bedtime and start clonazepam 0.5 mg BID. Ventilator setting on PS. ENT saw the patient stated no need for further ear drops as no visible drainage appreciated, but did recommend nasal saline gel for moisturizing, but currently unavailable in the hospital after speaking with pharmacy. Urology saw the patient today and did a dorsal slit procedure at bedside after consent was obtained from the patient's father using plumbing assembler, Armando ID #[id number].. Patient received fentanyl x3 for pain control as well as versed 2mg x2 during the procedure. Again tried to reach out to patient's mother and father using plumbing assembler, Macario ID [id number], but was unsuccessful as they were unreachable to both phone numbers available. Spoke with patient's mother and provided updates on patient's current condition. Answered all questions and concerns and patient's family was agreeable. Did state today's plan which included MRI L LE to r/o osteomyelitis, ENT specialist to see the patient, decreasing sedation, and that we are waiting for Urology concerning phimosis and need of urine culture repeat. museum archivist was used, Maritza ID #[id number]. Priorly also used plumbing assembler Mary ID #[id number], but patient's mother and father did not answer therefore left a message and subsequently got a call back from patient's mother and used plumbing assembler Maritza ID #[id number]. Patient's mother, brother, and father came by and were updated about the procedure with in hospital plumbing assemblerhumera. Explained that patient may need to go to subacute for further rehab as he is unlikely to be weaned off mechanical ventilator during hospital admission. Also updated them on the patient's fever and that we are weaning off sedation. They stated they were agreeable with treatment plan and if any emergency came up that they would be okay with anything to save his life even if they were notified after any emergent procedure. All their questions were answered. 06/09/2025: No acute events overnight. Patient seen and examined at bedside. Patient was put on pressure support this morning, however patient was observed to be more agitated with increased respiratory rate and heart rate, so pressure support was increased which resolved the patient's distress and decreased patient's respiratory rate. Patient is currently still on Versed drip with plans to wean patient off and transition to Versed pushes as needed. MRI of left lower leg showed severely degraded images due to continuous patient motion. Examination of the patient's lower extremities today show no pain on deep palpation of both his knees and his tibial or fibular regions. Will hold off on pursuing any additional imaging at this time and reevaluate tomorrow. Will continue with tube feeds and monitor the patient for additional oral trauma. Morphine pushes as needed started for pain given dorsal slit procedure yesterday with agitation and withdrawal on palpation of penis. This information was communicated to the patient's father over the phone using certified information technology account manager ID [id number]. The patient's mother came in person in the afternoon and was updated in person using certified information technology account manager Leanna [id number]. 06/10/2025: No acute events overnight. Patient is completely off sedation, however patient did have a fever of 100.6 yesterday at 1739 and has been afebrile since then. Patient's respiratory status continues to require high levels of pressure support on mechanical ventilation. Patient was noted to be tachycardic this morning and showed signs of repetitive motions in his hands and legs along with periodic grimacing. Given that the patient only showed signs of tachycardia without elevation in blood pressure or respiratory rate, these nonpurposeful movements are highly suspicious for tardive dyskinesia that was suppressed while the patient was on Versed drip. The patient's father and mother were contacted [place] [id number], to ask if the patient had ever had any of the symptoms and if he had been taking any medication to help with the symptoms. During this conversation, the patient's father noted that the patient has had abnormal movements for many years since he was a child and the patient had been taking trihexyphenidyl for many years, which seemed to have controlled these abnormal movements. The family did note that the patient was hospitalized about a year ago, and due to concerns of recurrent fevers, the trihexyphenidyl was discontinued and the patient's neurologist started the patient on deutetrabenazine (Austedo). ICU team then reached out to pharmacy to see if these medications could be obtained as they are nonformulary. Pharmacy confirmed that they are nonformulary, but could be ordered for the patient. The patient's father and mother were called back again, this time with registered binding folder machine [place], ID [id number], to discuss sign the patient on deutetrabenazine for the patient's abnormal movements and stopping the patient's Seroquel as it may be contributing to the patient's abnormal movements. It was also discussed how the trihexyphenidyl would not be started as it could worsen the patient's abnormal movements. The patient's family stated that they were concerned about restarting the deutetrabenazine as the patient became more agitated after starting that medication in the past. The patient's family requested to see the patient in person before making further adjustments to his medications. The patient's mother and father came to visit the patient early in the afternoon and in-house registered binding folder machine Humera was present to help translate. The patient's family explained that the patient's abnormal movements are very reminiscent of his movements at home and were willing to try the tetrabenazine as well as stopping the Seroquel. They did however request that the patient be observed in the ICU for at least 3 more days as the patient has had a history of fevers and increased agitation with starting a new medication. Additionally, the patient's mother and father requested a tour of [facility] subacute care to see if they would like to send the patient to subacute instead of home on discharge. Given patient's stable labs, will transition to lab draws Friday. Also increased the dose of phenobarbital to 130 mg three times daily, increased Versed to 4 mg every hour as needed for agitation, and transitioned from morphine to Dilaudid 0.5 mg every 4 hours. Discussed with pharmacy regarding starting deutetrabenazine versus tetrabenazine. Will order both with deutetrabenazine on hold for now, and start with tetrabenazine first to see if the patient's tardive dyskinesia improves and if he tolerates the medication. If tetrabenazine does not improve the patient's tardive dyskinesia or if side effects are intolerable, then we will swap to the deutetrabenazine to see if that improves his condition. Prescribed deutetrabenazine to the patient so that family members may pick it up and bring it to the ICU tomorrow to start treatment earlier. Exam Vital Signs Temp Pulse Resp BP Pulse Ox O2 Del Method O2 Flow Rate 99.1 F 142 H 16 177/102 H 99 Mechanical Ventilation 35 06/10/25 08:00 06/10/25 09:00 06/10/25 05:43 06/10/25 09:00 06/10/25 09:00 06/06/25 04:00 06/05/25 16:00 FiO2 30 06/10/25 08:00 Narrative Exam Gen: Alert, random, non-purposeful twisting movement of arms and periodic grimacing of face HEENT: NCAT, EOMI, Pupils reactive KARLO, not icteric. External ears normal. No rhinorrhea. Moist mucous membranes with no visible blood. Neck: Supple, full range of motion, no observable masses, No meningeal sign. Lungs: Coarse breath sounds bilateral, mechanically ventilated. CV: Tachycardic, no murmurs appreciated. Abdomen: Soft, nondistended, No rebound tenderness, PEG tube in place, peristalsis present. MSK: No lower extremity edema, no redness, peripheral pulses presents, Contracted and swollen hands, decreased tone : Penis glan visible and clean dressing around penis s/p dorsal slit procedure. Pain to light palpation of penis. Skin: No, petechiae, lesions, erythematous Neuro: Alert and moving extremities, pupils reactive Objective Labs 06/10/25 04:39 06/10/25 04:39 Labs: Laboratory Results - last 24 hr 06/06/25 06/10/25 07:23 04:39 WBC 7.8 RBC 2.75 L Hgb 7.4 L Hct 23.2 L MCV 84 MCH 26.9 MCHC 31.9 RDW Std Deviation 47.6 H Plt Count 403 Neut % (Auto) 50 Lymph % (Auto) 29 [place] % (Auto) 13 H Eos % (Auto) 7 Baso % (Auto) 1 Neut # (Auto) 3.9 Lymph # (Auto) 2.3 [place] # (Auto) 1.0 H Eos # (Auto) 0.6 H Baso # (Auto) 0.1 Immature Gran # (Auto) 0.03 H Absolute Nucleated RBC 0.00 Immature Gran % 0 Nucleated RBC % 0 Sodium 140 Potassium 3.7 Chloride 101 Carbon Dioxide 27.8 Anion Gap 11 BUN 8 L Creatinine 0.5 L Estim Creat Clear Calc 170.8 eGFR > 60 BUN/Creatinine Ratio 16 Glucose 91 Calculated Osmolality 277 Calcium 10.1 Corrected Calcium 10.1 Phosphorus 4.3 Magnesium 2.1 Total Bilirubin 0.3 AST 29 ALT 46 Alkaline Phosphatase 212 H Total Protein 6.6 Albumin 4.0 Globulin 2.6 Albumin/Globulin Ratio 1.5 Beta-(1,3)-D-Glucan 58 B-(1,3)-D-Glucan Intrp NEGATIVE ABG Interpretation ABG results: 05/09/25 05/09/25 05/09/25 11:56 13:40 18:50 ABG pH 7.40 7.27 L D 7.28 L ABG pCO2 40 43 55 H D ABG pO2 131 H 53 L* D 70 L ABG HCO3 25 20 26 ABG O2 Saturation 99 H 81 L 92 ABG Base Excess 0 -7 L -2 VBG pH VBG pCO2 VBG pO2 VBG Base Excess 05/10/25 05/11/25 05/12/25 00:14 05:06 01:18 ABG pH 7.35 7.33 L 7.39 ABG pCO2 42 D 54 H D 48 ABG pO2 103 D 93 94 ABG HCO3 23 28 H 29 H ABG O2 Saturation 99 H 98 98 ABG Base Excess -3 2 3 VBG pH VBG pCO2 VBG pO2 VBG Base Excess 05/12/25 05/12/25 05/13/25 03:58 11:50 05:10 ABG pH 7.46 H 7.39 7.19 L* D ABG pCO2 41 48 60 H D ABG pO2 105 58 L* D 114 H D ABG HCO3 29 H 29 H 23 ABG O2 Saturation 99 H 90 L 98 ABG Base Excess 5 H 4 H -6 L VBG pH VBG pCO2 VBG pO2 VBG Base Excess 05/17/25 05/18/25 05/19/25 01:30 04:09 04:43 ABG pH 7.38 7.43 7.47 H ABG pCO2 46 44 43 ABG pO2 90 83 80 L ABG HCO3 27 H 29 H 31 H ABG O2 Saturation 98 97 97 ABG Base Excess 2 5 H 7 H VBG pH VBG pCO2 VBG pO2 VBG Base Excess 05/21/25 05/21/25 05/31/25 04:18 06:33 08:06 ABG pH 7.37 D 7.46 H ABG pCO2 50 H 38 D ABG pO2 40 L* D 121 H D ABG HCO3 29 H 27 H ABG O2 Saturation 66 L 100 H ABG Base Excess 3 3 VBG pH 7.55 VBG pCO2 31 L VBG pO2 144 H VBG Base Excess 5 H 06/05/25 06/05/25 06/06/25 13:37 23:46 05:20 ABG pH 7.47 H 7.45 ABG pCO2 35 38 ABG pO2 200 H 54 L* D ABG HCO3 25 26 ABG O2 Saturation 101 H 89 L ABG Base Excess 2 2 VBG pH 7.50 VBG pCO2 34 L VBG pO2 90 H VBG Base Excess 4 H Quality Measures Quality Measures VTE prophylaxis (SCDs) and sepsis Current suspected stage: ruled out Possible source: pulmonary Blood cultures ordered: yes Antibiotic ordered: Yes Assessment & Plan Assessment Current Active Medications: Generic Name Dose Route Start Last Admin Trade Name Freq PRN Reason Stop Dose Admin Acetaminophen 325 mg 06/09/25 18:19 06/09/25 21:19 Acetaminophen Racquel 325 Mg/10 Ml Udc GT 07/09/25 16:12 325 mg Q4HR PRN Administration pain (1-3) or fever > 100.4 Clonazepam 0.5 mg 06/10/25 06:00 06/10/25 05:48 Clonazepam 0.5 Mg Tablet PO 06/15/25 05:59 0.5 mg TID KYA Administration Ferrous Sulfate 325 mg 06/01/25 09:00 06/09/25 08:09 Ferrous Sulfate 300 Mg/5 Ml Udc PO 07/01/25 08:59 325 mg QOD KYA Administration Heparin Sodium (Porcine) 5,000 unit 06/08/25 14:00 06/10/25 05:49 Heparin Sod Inj 5000 Unit/Ml Vial SC 06/22/25 13:59 5,000 unit Q8HR KYA Administration Hydromorphone HCl 0.5 mg 06/10/25 06:56 Hydromorphone Inj 2 Mg/Ml Vial IVP 06/15/25 06:55 Q4HR PRN BREAKTHROUGH PAIN Piperacillin Sod/Tazobactam 100 mls @ 200 mls/hr 06/05/25 14:00 06/10/25 05:47 Sod 4.5 gm/ Sodium Chloride IV 06/12/25 13:59 200 mls/hr Q8HR KYA Administration Protocol Midazolam HCl 100 mg in 100 mls @ 1 mls/hr 06/08/25 17:19 Versed Pf Inj In Ns Premix IV 06/12/25 18:59 .Q24H PRN PER PROTOCOL Protocol 1 MG/HR Lansoprazole 30 mg 05/28/25 09:00 06/10/25 08:11 Lansoprazole 30 Mg Tab.Rap.Dr GT 06/27/25 08:59 30 mg QDAY KYA Administration Levetiracetam 750 mg 05/30/25 09:00 06/10/25 08:09 Levetiracetam Liqd 500 Mg/5 Ml Udc GT 06/29/25 08:59 750 mg BID KYA Administration Midazolam HCl 2 mg 06/07/25 15:59 06/10/25 05:47 Midazolam Inj 1 Mg/Ml Vial 2 Ml IVP 06/12/25 15:58 2 mg Q1HR PRN Administration AGITATION OR ANXIETY Ondansetron HCl 4 mg 05/27/25 14:37 Ondansetron Odt 4 Mg Tabrap GT 06/26/25 14:36 Q6HR PRN NAUSEA OR VOMITING Protocol Oxycodone HCl 10 mg 06/09/25 15:45 06/10/25 05:48 Oxycodone Hcl 5 Mg Ir Tab GT 06/14/25 15:44 10 mg TID KYA Administration Phenobarbital 129.6 mg 06/10/25 21:00 Phenobarbital 32.4 Mg Tablet GT 06/24/25 20:59 BID KYA Polyethylene Glycol 17 gm 05/16/25 09:15 06/08/25 09:36 Polyethylene Glycol 17 Gm Packet PO 06/15/25 09:14 Not Given On Hold: 06/09/25 06:55 QDAY KYA Propranolol HCl 10 mg 06/06/25 06:00 06/10/25 05:47 Propranolol 10 Mg Tablet GT 07/06/25 05:59 10 mg TID KYA Administration Quetiapine Fumarate 50 mg 06/06/25 09:00 06/10/25 08:11 Quetiapine Fumarate 25 Mg Tablet GT 07/06/25 08:59 50 mg QDAY KYA Administration Quetiapine Fumarate 100 mg 06/05/25 22:40 06/09/25 21:03 Quetiapine Fumarate 100 Mg Tablet GT 07/05/25 22:39 100 mg HS KYA Administration Sevelamer Carbonate 800 mg 06/06/25 08:00 06/10/25 08:22 Sevelamer Carbonate 800 Mg Tablet PO 07/06/25 07:59 800 mg TIDWM KYA Administration Sodium Chloride 3 ml 05/17/25 11:43 Sodium Chloride Rt Racquel 0.9% 3 Ml Nebu INH 06/16/25 11:42 PRN PRN SOLN Valproic Acid 500 mg 06/10/25 09:00 06/10/25 08:10 Valproic Acid Syrup 250 Mg/5 Ml Udc GT 07/10/25 08:59 500 mg BID KYA Administration Plan 25-year-old male with history of cerebral palsy, asthma, seizure disorder, chronic mastoiditis, recurrent pneumonia, and chronic PEG tube dependence presented on 05/08/2025 with fever and seizure, was admitted for sepsis workup, and later transferred to the ICU on 05/09/25 for increased agitation, tachypnea, and increased secretions with recurrent fevers. Was downgraded on 05/31/25 due to resolution of fever for at least 48 hours however was upgraded back on 06/05/25 due to increased work of breathing, ventilator asynchrony agitation and fever. Neurological #Agitation Differential diagnosis: ICU acquired delirium, opiate withdrawal, delirium Diagnostic workup: - Patient was weaned off of sedation and was downgraded to telemetry, however as sedatives were down titrated and telemetry patient had episode of severe agitation and ventilator asynchrony and was upgraded to ICU for further intervention. - EEG 05/11 unremarkable. Repeat EEG 05/20 showed electrographic seizure activity. Continuous EEG 05/22-05/23: no seizure activity or status epilepticus. - MRI brain 05/23: showed chronic infections, no acute pathology. Treatment: - Cisatracurium gtt discontinued - Versed gtt discontinued - Phenobarbital 129.6 mg three times daily - Clonazepam 0.5 mg three times daily - Oxycodone 10 mg three times daily Follow-up: - Use Versed 4 mg pushes every hour as needed #Tardive dyskinesia Diagnostic workup: - Nonpurposeful twisting movements of the patient's upper extremity with recurrent grimaces noted on 06/10 when the patient was taken off sedation - Patient's family notes that the patient has had a long history of nonpurposeful movement and has been previously prescribed deutetrabenazine for management by his neurologist Treatment: - Discontinued home Seroquel 50 mg in the morning and 100 mg at night due to tardive dyskinesia - Ordered tetrabenazine 12.5 mg three times daily (non-formulary, will take several days to arrive) - Prescribed deutetrabenazine 6 mg twice daily to patient's family to steel pickler and bring to hospital to initiate treatment earlier Follow-up: - If patient does not tolerate tetrabenazine or if ineffective at reducing symptoms of tardive dyskinesia, then we will transition to deutetrabenazine 6 mg twice daily #Seizure disorder by history #Cerebral palsy by history Diagnostic workup: - Active seizure disorder ruled out, multiple EEGs negative for seizure activity Treatment: - Continue Depakote 250 mg GT every 8 hours and Keppra 750 mg GT twice daily Follow-up: - Pending EEG results from 06/05/2025 Cardiology #Sinus tachycardia Differential diagnosis: Infection, hypersympathetic activity Diagnostic workup: - Did have positive sputum and urine culture for Pseudomonas and ESBL respectively - Patient's last fever was 06/06/2025 04:36 - Echocardiogram was obtained to rule out any vegetations TTE shows normal systolic function, EF 55 to 60%, diastolic dysfunction grade 1, no evidence of vegetation or endocarditis Treatment: - Continue propranolol 10 mg 3 times daily - Continue antibiotics Follow-up: - Monitor for fever, use ibuprofen as needed for fever episode - Telemetry monitoring Pulmonary #Mucus plugs, right upper lung and left lower lung Diagnostic workup: - Chest x-ray obtained 06/07 AM, showed a left lower lobe consolidation, ddx left lower lobe pneumonia versus mucous plug versus left pleural effusion versus mucous plug versus atelectasis lung ultrasound at bedside, effusion ruled out, no hepatization of the lung noted. Consent obtained from family for bronchoscopy. - Bedside bronchoscopy showed left lower lobe mucous plug, suction. Treatment: -Bedside bronchoscopy (06/07/2025) with clearance of mucous plug done successfully Follow-up: - Once weaned off sedation and patient has cough reflex intact and more awake/alert, will consider chest physiotherapy. #Mechanical ventilation #Chronic respiratory failure status post tracheostomy 05/26 Currently on PS Diagnostic workup: -Patient failed extubation during the hospitalization on 05/12, was reintubated overnight 05/13. -Unable to wean patient off ventilator, tracheostomy performed 05/26/2025, sutures removed 06/06/2025 -Patient underwent bronchoscopies 05/14, 05/17 and 06/05 for increased secretions - Currently on PS, will keep PS overnight Treatment: -Monitor SpO2, goal greater than 92 -Continue mechanical ventilation on PS Follow-up: -Continue to down titrate pressure on PS as tolerated until 5 mmHg, then transition to Blow-by if patient tolerates low pressure PS ventilation #Asthma by history Diagnostic workup: - Patient has history of asthma on montelukast, albuterol as needed at home Treatment: - Currently on mechanical ventilation Gastrointestinal #Chronic PEG tube dependence Differential diagnosis: Chronic dysphagia likely in setting of cerebral palsy Diagnostic workup: -Patient was previously on Jevity 1.5, switched to Nepro due to hyperphosphatemia. Treatment: -Resume Nepro trickle feeds, advance as tolerated Follow-up: - Goal tube feeds as tolerated #Transaminitis, resolved #Hypoalbuminemia, resolved Renal/Genitourinary #Elevated alkaline phosphatase, improving #Low PTH #Abnormal nuclear medicine bone scan Differential diagnosis: increased osteoblastic activity in setting of vegetative state, bone infection (particularly of left mastoid), hypoparathyroidism, osteoarthritis Diagnostic workup: - PTH intact low at 3.6, calcium 9.9, vitamin D 25-OH 18.1 - Renal function intact, at baseline - Nuclear medicine bone scan shows minor asymmetric uptake left knee and mild increased uptake mid left tibia - Knee x-ray 06/06 and tibia-fibula x-ray 06/06 showed no findings diagnostic for osseous metastatic disease - MRI left leg 06/08 images severely degraded by continuous patient motion - No pain to palpation of bilateral lower extremities Treatment: - Continue sevelamer 800 mg 3 times daily - Patient to follow up on abnormal imaging outpatient #Phimosis s/p dorsal slit procedure 06/08/2025 #Paraphimosis (resolved) #Balanitis (resolved) Diagnostic workup: - Edema and tenderness of the glans penis, Swelling of the distal retracted foreskin, Constricting band of tissue proximal to the head of the penis at the coronal sulcus on presentation, s/p reduction of the paraphimosis by urologist Dr. Vargas on 05/09. - Patient has somewhat retractable foreskin, has good urine output, no swelling noted, has external catheter draining well - Urologist Dr. Vargas performed dorsal slit procedure on 06/08 Treatment: - Dilaudid 0.5 mg IVP every 4 hours as needed for breakthrough pain Follow-up: - Continue to monitor for worsening swelling, bleeding, or blockage of urine #Hyperkalemia, resolved #VITALIY resolved #Lactic acidosis resolved #Acute kidney injury resolved #Rhabdomyolysis resolved #Hyperphosphatemia, resolved Endocrine No active problems Hematology #Acute nonocclusive thrombus in the left brachial vein Diagnostic workup: - Venous doppler study of upper extremities 05/16: Normal right upper extremity deep venous system. Positive for nonocclusive thrombus in the left brachial vein. - Per chart review and patient's parents, patient does not have history of clots. - Given patient's inability to safely engage and risk of continued trauma to buccal mucosa by biting will not do full dose anticoagulation given increased risk of bleeding Treatment: - Heparin loading dose and ggt. Lovenox to heparin due to heparin?s shorter half-life, which allows for more rapid cessation in the event of bleeding, a shorter half life and can be stopped if bleeding occurs. - Stopped heparin ggt due to hematuria on 05/18. - Restarted Lovenox 05/31 for tx of primary upper extremity deep vein thrombosis, anticoagulation should be continued for a minimum of three months following the initial thrombotic event, but given patient is high risk to buccal mucosa trauma will not pursue therapeutic dose as high risk of bleeding. Follow-up: - Heparin SC every 8 hours for DVT prophylaxis #Normocytic Anemia Differential diagnosis: Anemia of chronic disease, nutritional anemia, iatrogenic Diagnostic workup: -Likely multifactorial, currently not an active concern Treatment: -Monitor CBC, transfuse if hemoglobin less than 7 #Leukocytosis, resolved #Thrombocytopenia, resolved #Thrombocytosis, resolved Infectious Disease #Bilateral chronic mastoiditis #Sinusitis #Bilateral otitis media and otitis externa Diagnostic workup: -White fungal debris and clear drainage noted by studio owner, tympanic membrane not visualized on left ear -Right ear canal with small amount of clear drainage, tympanic membrane generally thickened and opaque -05/08 CT Head: prominent sphenoid ethmoid maxillary antral sinusitis, bilateral chronic mastoiditis, bilateral otitis media. -05/08 CT Orbit Sella Inner: severe bilateral chronic mastoiditis, bilateral otitis externa and otitis media, bilateral cholesteatomas in the attics. Treatment: -Ofloxacin Opt raqcuel 0.3% 5 drops Both ears bid (05/09-05/18, 05/21-05/31) -Ciprofloxacin Op Racquel 0.3% ear drops (06/02-06/03) -Discontinued Acetic acid irrigations to left ear, clotrimazole drops both ears twice daily for 10 days (06/04-06/08/2025) as per ENT #UTI, ESBL E. coli #Pseudomonas aeruginosa, sputum positive Differential diagnosis: Colonization, active infection Diagnostic workup: Sputum culture 06/05 shows sensitive to Zosyn and intermittent resistance to cefepime Sputum culture 06/01 shows Pseudomonas sensitive to Zosyn and intermittent resistant to cefepime Sputum culture from 05/09 shows Pseudomonas only sensitive to meropenem and tobramycin Sputum culture from 05/20 shows Brittney albicans Sputum culture 05/13,05/19 negative Urine culture 06/01 shows ESBL E. coli sensitive to Zosyn CSF culture 05/26, 05/10 negative ENT specimen 05/12 left ear shows Brittney parapsilosis ENT culture from right ear 05/12 shows ESBL E. coli sensitive to Zosyn, meropenem and ertapenem Blood cultures obtained 05/08, 05/11, 05/16, 06/01, 06/05 negative, bronchial washing 05/14 for fungal cultures pending Treatment: - Currently on IV Zosyn 06/05- IV Zosyn 3.375g x1 (at 05/08) IV Ceftriaxone 1g x1 (at 05/08) IV Acyclovir 640mg q8hr (05/08-05/11) IV Ceftriaxone 2g q12hr (05/08-05/11) IV Vancomycin qd (05/08-05/11) since MRSA screen is negative IV Meropenem 1000mg q8hr (05/12-05/22, 05/24-05/25) IV Doxycycline (05/16-05/18) IV Micafungin 100mg qd (05/28-05/30, 06/01-06/03) IV fluconazole 06/05-06/07 Follow-up: - Continue to monitor for fever Integumentary #Tongue Laceration, traumatic #Gingivial Bleeding, Oral Trauma Diagnostic workup: -Known to have episodes of jaw spasms and teeth clenching with agitation. Had significant trauma to gums and tongue due to clenching of teeth 06/06 - No further bleeding appreciated in oral mucosa Treatment: - Patient required cisatracurium to relax jaw, pressure was applied locally, oral packing none, injections of lido?epinephrine x 3 to gums on 06/06 night Follow-up: - Monitor for bleeding Health Maintenance: Feeding/fluids: Currently on trickle feeds with Nepro, free water fluid Analgesia: Oxycodone via G-tube, Morphine IVP PRN Sedation: Phenobarbital BID, Clonazepam TID, Versed PRN Thromboprophylaxis: SCDs, heparin SC Head up position: Head of bed elevated Ulcer prophylaxis: Lansoprazole Glycemic control: AM blood glucose within normal limits Spontaneous breathing trial: Chronically trached on mechanical ventilation Bowel care: On MiraLAX daily Indwelling catheter removal: No chronic Osborne/lines De-escalation of antibiotics: Will continue with Zosyn, history of multi drug- resistant organisms Code status: Full code Case disclosed with Attending Dr. Jeanine Baeza and senior resident Dr. Alvarez (PGY-2) Alejandro Maravilla, PGY-1
[2025-06-10] MEDS: HYDROmorphone INJ 2 MG/ML VIAL 0.5 MG IVP ×3 (10:08→21:32)
--- NOTE | 2025-06-10 10:49 | PC.SS ---
Addendum entered by Corrine Laws 06/10/25 10:54: clarification: SS spoke to subacute and they have not officially accepted patient. They will continue to check in to see if patient can be off versed with no agitation. They will follow up and review progress notes. Patient not medically stable for discharge. Original Note: rounding note: Patient remains in ICU. Patient on vent/trache/peg. D/c plan remains to d/c to our subacute. Patient is being weaned off versed. Patient is agitated. Continue to monitor.
--- NOTE | 2025-06-10 11:30 | PD.IDPROG ---
Subjective Subjective Interval history: fevers continue but no effort noted to stop most meds. Exam Vital Signs Temp Pulse Resp BP Pulse Ox O2 Del Method O2 Flow Rate 99.1 F 121 H 16 118/66 100 Mechanical Ventilation 35 06/10/25 08:00 06/10/25 11:00 06/10/25 05:43 06/10/25 11:00 06/10/25 11:00 06/06/25 04:00 06/05/25 16:00 FiO2 30 06/10/25 10:43 Narrative Exam awake alert. no sz activity noted by team Objective - Internal Medicine Labs 06/10/25 04:39 06/10/25 04:39 Labs: Laboratory Results - last 24 hr 06/06/25 06/10/25 07:23 04:39 WBC 7.8 RBC 2.75 L Hgb 7.4 L Hct 23.2 L MCV 84 MCH 26.9 MCHC 31.9 RDW Std Deviation 47.6 H Plt Count 403 Neut % (Auto) 50 Lymph % (Auto) 29 Chambers % (Auto) 13 H Eos % (Auto) 7 Baso % (Auto) 1 Neut # (Auto) 3.9 Lymph # (Auto) 2.3 Chambers # (Auto) 1.0 H Eos # (Auto) 0.6 H Baso # (Auto) 0.1 Immature Gran # (Auto) 0.03 H Absolute Nucleated RBC 0.00 Immature Gran % 0 Nucleated RBC % 0 Sodium 140 Potassium 3.7 Chloride 101 Carbon Dioxide 27.8 Anion Gap 11 BUN 8 L Creatinine 0.5 L Estim Creat Clear Calc 170.8 eGFR > 60 BUN/Creatinine Ratio 16 Glucose 91 Calculated Osmolality 277 Calcium 10.1 Corrected Calcium 10.1 Phosphorus 4.3 Magnesium 2.1 Total Bilirubin 0.3 AST 29 ALT 46 Alkaline Phosphatase 212 H Total Protein 6.6 Albumin 4.0 Globulin 2.6 Albumin/Globulin Ratio 1.5 Beta-(1,3)-D-Glucan 58 B-(1,3)-D-Glucan Intrp NEGATIVE ABG Interpretation ABG results: 05/09/25 05/09/25 05/09/25 11:56 13:40 18:50 ABG pH 7.40 7.27 L D 7.28 L ABG pCO2 40 43 55 H D ABG pO2 131 H 53 L* D 70 L ABG HCO3 25 20 26 ABG O2 Saturation 99 H 81 L 92 ABG Base Excess 0 -7 L -2 VBG pH VBG pCO2 VBG pO2 VBG Base Excess 05/10/25 05/11/25 05/12/25 00:14 05:06 01:18 ABG pH 7.35 7.33 L 7.39 ABG pCO2 42 D 54 H D 48 ABG pO2 103 D 93 94 ABG HCO3 23 28 H 29 H ABG O2 Saturation 99 H 98 98 ABG Base Excess -3 2 3 VBG pH VBG pCO2 VBG pO2 VBG Base Excess 05/12/25 05/12/25 05/13/25 03:58 11:50 05:10 ABG pH 7.46 H 7.39 7.19 L* D ABG pCO2 41 48 60 H D ABG pO2 105 58 L* D 114 H D ABG HCO3 29 H 29 H 23 ABG O2 Saturation 99 H 90 L 98 ABG Base Excess 5 H 4 H -6 L VBG pH VBG pCO2 VBG pO2 VBG Base Excess 05/17/25 05/18/25 05/19/25 01:30 04:09 04:43 ABG pH 7.38 7.43 7.47 H ABG pCO2 46 44 43 ABG pO2 90 83 80 L ABG HCO3 27 H 29 H 31 H ABG O2 Saturation 98 97 97 ABG Base Excess 2 5 H 7 H VBG pH VBG pCO2 VBG pO2 VBG Base Excess 05/21/25 05/21/25 05/31/25 04:18 06:33 08:06 ABG pH 7.37 D 7.46 H ABG pCO2 50 H 38 D ABG pO2 40 L* D 121 H D ABG HCO3 29 H 27 H ABG O2 Saturation 66 L 100 H ABG Base Excess 3 3 VBG pH 7.55 VBG pCO2 31 L VBG pO2 144 H VBG Base Excess 5 H 06/05/25 06/05/25 06/06/25 13:37 23:46 05:20 ABG pH 7.47 H 7.45 ABG pCO2 35 38 ABG pO2 200 H 54 L* D ABG HCO3 25 26 ABG O2 Saturation 101 H 89 L ABG Base Excess 2 2 VBG pH 7.50 VBG pCO2 34 L VBG pO2 90 H VBG Base Excess 4 H Assessment & Plan A&P Narrative viral findings on pcr testing at health dept. cmv pos in initially, repeat noted resp failure fuo procal neg 06/02 procal insensitive to fungal antigens I am ok with him off many meds entirely. procal has mostly been neg for a long time now so value of more abx seems low.and despite icu insistence. it looks like the response to antifungal rx is absent. would not target the cmv. tests suggest old cmv and ebv value of rx seems low. hardest thing to do is stop meds but that is often what is needed. meenakshi in sputum also not felt to be a pathogen. so would not target the meenakshi either. but if you insist on rx, then flucon enterally ok for yeast in sputum but cxr is neg so value seems low will f/u friday of this week prognosis guarded with continued vent needs hiv and hep c neg adly, this may be all drug related fever but hardest thing to do is stop meds not all fevers are infectcious fever but that strategy seems favored by icu team Time Spent With Patient Time: Total time spent is greater than 50% in coordination of care (as documented) at patient's floor/unit and/or counseling patient:
[2025-06-10] MEDS: MIDAZOLAM INJ 1 MG/ML VIAL 2 ML 4 MG IVP ×4 (17:45→23:04)
[2025-06-10 18:03] LABS: Base Excess, Venous 2 (-3-3); O2 Saturation, Venous 74 % (96-97); PCO2, Venous 43 mmHg (36-56); PO2, Venous 43 mmHg (15-58); pH, Venous 7.40 (7.33-7.66)
--- NOTE | 2025-06-10 18:22 | XR_ITS ---
EXAMINATION: AP chest single view TECHNIQUE: AP portable upright chest single view Date and time: June 10, 2025, 1831 hours, comparison June 07, 2025 INDICATIONS: Periodic O2 desaturation this week FINDINGS: Normal heart size Tracheal tube tip 23 mm above haresh. The left lower lobe pneumonia noted on the June 07, 2025 exam is no longer identified There is no pulmonary edema The osseous structures are intact IMPRESSION: No current pneumonia or pulmonary edema
--- NOTE | 2025-06-10 19:58 | PD.RESPRO ---
Documentation for date of: 06/10/25 Subjective Subjective Interval history: Mr Baltazar is a 24 year old male with cerebral palsy, chornically bed bound who has had a prolonged hospital stay from 05/08/2025, initially in ICU and then downgraded to medical floors on 05/31/2025. In house Neurology consulted for seizure like activity - ruled out on EEG. Also recurrent fever spikes 100 - 103F, despite negative MRIB. 06/10/2025: Patient was seen and examined at bedside. No acute events overnight. Patient tolerating TF, adequate urine output and afebrile. Will start on treatment with Austedo (Deutetrabenazine), aniticipate improvement with that. May DC back to subacute if stable for >24 hours. Exam Vital Signs Temp Pulse Resp BP Pulse Ox O2 Del Method O2 Flow Rate 99.4 F 150 H 16 156/115 H 96 Mechanical Ventilation 35 06/10/25 12:02 06/10/25 19:00 06/10/25 16:00 06/10/25 19:00 06/10/25 19:00 06/06/25 04:00 06/05/25 16:00 FiO2 30 06/10/25 16:00 Narrative Exam Constitutional awake, moving around with dyskinetic movements throughout the body HEENT PERRLA. Patent nares. Trachea midline. Tracheostomy, chronic, on MV: Pressure support Respiratory Chest normal on inspection and clear to auscultation bilaterally. Cardiovascular S1 and S2 audible, RRR. No murmurs or carotid bruit. No gross JVD. Abdominal Soft, nontender, not distended, normal bowel sounds. PEG tube in place Genitourinary Paraphimosis of penis- resolved. Osborne with good UO Musculoskeletal Extremities tone within normal limits. No LE edema. Neurological Unable to asses CN and peripheral motor function. B/L LE fixed contractures with inward curvature. Spastic. Skin Warm, dry and intact. No apparent lesions. Objective Labs 06/10/25 04:39 06/10/25 04:39 Labs: Laboratory Results - last 24 hr 06/06/25 06/10/25 06/10/25 07:23 04:39 17:41 WBC 7.8 RBC 2.75 L Hgb 7.4 L Hct 23.2 L MCV 84 MCH 26.9 MCHC 31.9 RDW Std Deviation 47.6 H Plt Count 403 Neut % (Auto) 50 Lymph % (Auto) 29 [place] % (Auto) 13 H Eos % (Auto) 7 Baso % (Auto) 1 Neut # (Auto) 3.9 Lymph # (Auto) 2.3 [place] # (Auto) 1.0 H Eos # (Auto) 0.6 H Baso # (Auto) 0.1 Immature Gran # (Auto) 0.03 H Absolute Nucleated RBC 0.00 Immature Gran % 0 Nucleated RBC % 0 VBG pH 7.40 VBG pCO2 43 VBG pO2 43 VBG O2 Sat (Maryam) 74 L VBG Base Excess 2 Sodium 140 Potassium 3.7 Chloride 101 Carbon Dioxide 27.8 Anion Gap 11 BUN 8 L Creatinine 0.5 L Estim Creat Clear Calc 170.8 eGFR > 60 BUN/Creatinine Ratio 16 Glucose 91 Calculated Osmolality 277 Calcium 10.1 Corrected Calcium 10.1 Phosphorus 4.3 Magnesium 2.1 Total Bilirubin 0.3 AST 29 ALT 46 Alkaline Phosphatase 212 H Total Protein 6.6 Albumin 4.0 Globulin 2.6 Albumin/Globulin Ratio 1.5 Beta-(1,3)-D-Glucan 58 B-(1,3)-D-Glucan Intrp NEGATIVE ABG Interpretation ABG results: 05/09/25 05/09/25 05/09/25 11:56 13:40 18:50 ABG pH 7.40 7.27 L D 7.28 L ABG pCO2 40 43 55 H D ABG pO2 131 H 53 L* D 70 L ABG HCO3 25 20 26 ABG O2 Saturation 99 H 81 L 92 ABG Base Excess 0 -7 L -2 VBG pH VBG pCO2 VBG pO2 VBG Base Excess 05/10/25 05/11/25 05/12/25 00:14 05:06 01:18 ABG pH 7.35 7.33 L 7.39 ABG pCO2 42 D 54 H D 48 ABG pO2 103 D 93 94 ABG HCO3 23 28 H 29 H ABG O2 Saturation 99 H 98 98 ABG Base Excess -3 2 3 VBG pH VBG pCO2 VBG pO2 VBG Base Excess 05/12/25 05/12/25 05/13/25 03:58 11:50 05:10 ABG pH 7.46 H 7.39 7.19 L* D ABG pCO2 41 48 60 H D ABG pO2 105 58 L* D 114 H D ABG HCO3 29 H 29 H 23 ABG O2 Saturation 99 H 90 L 98 ABG Base Excess 5 H 4 H -6 L VBG pH VBG pCO2 VBG pO2 VBG Base Excess 05/17/25 05/18/25 05/19/25 01:30 04:09 04:43 ABG pH 7.38 7.43 7.47 H ABG pCO2 46 44 43 ABG pO2 90 83 80 L ABG HCO3 27 H 29 H 31 H ABG O2 Saturation 98 97 97 ABG Base Excess 2 5 H 7 H VBG pH VBG pCO2 VBG pO2 VBG Base Excess 05/21/25 05/21/25 05/31/25 04:18 06:33 08:06 ABG pH 7.37 D 7.46 H ABG pCO2 50 H 38 D ABG pO2 40 L* D 121 H D ABG HCO3 29 H 27 H ABG O2 Saturation 66 L 100 H ABG Base Excess 3 3 VBG pH 7.55 VBG pCO2 31 L VBG pO2 144 H VBG Base Excess 5 H 06/05/25 06/05/25 06/06/25 13:37 23:46 05:20 ABG pH 7.47 H 7.45 ABG pCO2 35 38 ABG pO2 200 H 54 L* D ABG HCO3 25 26 ABG O2 Saturation 101 H 89 L ABG Base Excess 2 2 VBG pH 7.50 VBG pCO2 34 L VBG pO2 90 H VBG Base Excess 4 H 06/10/25 17:41 ABG pH ABG pCO2 ABG pO2 ABG HCO3 ABG O2 Saturation ABG Base Excess VBG pH 7.40 VBG pCO2 43 VBG pO2 43 VBG Base Excess 2 Quality Measures Quality Measures VTE prophylaxis (SCDs) and sepsis Current suspected stage: sepsis Possible source: pulmonary Blood cultures ordered: yes Antibiotic ordered: Yes Assessment & Plan Assessment Current Active Medications: Generic Name Dose Route Start Last Admin Trade Name Freq PRN Reason Stop Dose Admin Acetaminophen 325 mg 06/09/25 18:19 06/09/25 21:19 Acetaminophen Racquel 325 Mg/10 Ml Udc GT 07/09/25 16:12 325 mg Q4HR PRN Administration pain (1-3) or fever > 100.4 Clonazepam 0.5 mg 06/10/25 06:00 06/10/25 13:31 Clonazepam 0.5 Mg Tablet PO 06/15/25 05:59 0.5 mg TID KYA Administration Ferrous Sulfate 325 mg 06/01/25 09:00 06/09/25 08:09 Ferrous Sulfate 300 Mg/5 Ml Udc PO 07/01/25 08:59 325 mg QOD KYA Administration Heparin Sodium (Porcine) 5,000 unit 06/08/25 14:00 06/10/25 13:34 Heparin Sod Inj 5000 Unit/Ml Vial SC 06/22/25 13:59 5,000 unit Q8HR KYA Administration Hydromorphone HCl 0.5 mg 06/10/25 06:56 06/10/25 15:32 Hydromorphone Inj 2 Mg/Ml Vial IVP 06/15/25 06:55 0.5 mg Q4HR PRN Administration BREAKTHROUGH PAIN Piperacillin Sod/Tazobactam 100 mls @ 200 mls/hr 06/05/25 14:00 06/10/25 13:30 Sod 4.5 gm/ Sodium Chloride IV 06/12/25 13:59 200 mls/hr Q8HR KYA Administration Protocol Midazolam HCl 100 mg in 100 mls @ 1 mls/hr 06/08/25 17:19 Versed Pf Inj In Ns Premix IV 06/12/25 18:59 .Q24H PRN PER PROTOCOL Protocol 1 MG/HR Lansoprazole 30 mg 05/28/25 09:00 06/10/25 08:11 Lansoprazole 30 Mg Tab.Rap. GT 06/27/25 08:59 30 mg QDAY KYA Administration Levetiracetam 750 mg 05/30/25 09:00 06/10/25 08:09 Levetiracetam Liqd 500 Mg/5 Ml Udc GT 06/29/25 08:59 750 mg BID KYA Administration Midazolam HCl 4 mg 06/10/25 14:43 06/10/25 19:38 Midazolam Inj 1 Mg/Ml Vial 2 Ml IVP 06/12/25 15:58 4 mg Q1HR PRN Administration AGITATION OR ANXIETY (Deutetrabenazine 6 6 mg 06/13/25 09:00 Mg) Tablet PO 07/13/25 08:59 BID KYA Ondansetron HCl 4 mg 05/27/25 14:37 Ondansetron Odt 4 Mg Tabrap GT 06/26/25 14:36 Q6HR PRN NAUSEA OR VOMITING Protocol Oxycodone HCl 10 mg 06/09/25 15:45 06/10/25 13:31 Oxycodone Hcl 5 Mg Ir Tab GT 06/14/25 15:44 10 mg TID KYA Administration Phenobarbital 129.6 mg 06/10/25 14:45 06/10/25 15:32 Phenobarbital 32.4 Mg Tablet GT 06/24/25 14:44 129.6 mg TID KYA Administration Polyethylene Glycol 17 gm 05/16/25 09:15 06/08/25 09:36 Polyethylene Glycol 17 Gm Packet PO 06/15/25 09:14 Not Given On Hold: 06/09/25 06:55 QDAY KYA Propranolol HCl 10 mg 06/06/25 06:00 06/10/25 13:32 Propranolol 10 Mg Tablet GT 07/06/25 05:59 10 mg TID KYA Administration Sevelamer Carbonate 800 mg 06/06/25 08:00 06/10/25 17:45 Sevelamer Carbonate 800 Mg Tablet PO 07/06/25 07:59 800 mg TIDWM KYA Administration Sodium Chloride 3 ml 05/17/25 11:43 Sodium Chloride Rt Racquel 0.9% 3 Ml Nebu INH 06/16/25 11:42 PRN PRN SOLN Tetrabenazine 12.5 mg 06/11/25 14:00 Tetrabenazine 12.5 Mg Tablet (Non-Formulay) PO 07/11/25 13:59 TID KYA Valproic Acid 500 mg 06/10/25 09:00 06/10/25 08:10 Valproic Acid Syrup 250 Mg/5 Ml Udc GT 07/10/25 08:59 500 mg BID KYA Administration Plan David Baltazar is 24 yr male with PMH of chronic mastoiditis (previously had tympanostomy tube placed for recurrent otitis media, now removed), seizure disorder, recurrent pneumonia, cerebral palsy, chronic PEG tube, and asthma who was brought into ED on 05/08/25 for ongoing fever of over 24 hours and reported episode of witnessed seizure by ED. Patient was treated for sepsis.Neurology was consulted. Cerebral palsy Chronic pansinusitis Tonic clonic seizure Otitis Interna, severe - CSF analysis x2 : unremarkable. - Meningitis - ruled out - MRI brain: chronic pansinusitis. - ENT evaluation completed, appreciate input Recommendations: - Keep seizure precautions in place - On Keppra 800mg BID + Depakote 250mg TID + Quetiapine 100mg HS + PRN Clonazepam 0.5mg TID - Started Austedo (Deutetrabenazine) 6mg BID, pending family picking it up from local outpatient pharmacy to bring it to ICU. Anticipate improvement with Austedo. May DC once stable. Primary care team to manage other medical conditions and ongoing care needed. Thank you for the consult. Neurology will continue to follow the case with you Plan of care discussed with attending Neurologist Dr Lang, - Dk López M.D. PGY3 Disclaimer: Minor errors in armored machine operator may be present as this note was dictated using voice recognition software. Attending Provider Attestation/Addendum I personally seen and examined the patient at the bedside and I agreed with the resident's findings, assessment and plan of care. Will try Austedo 6 mg twice a day to help with the dyskinetic movements. Continue to monitor movements and the Depakote level periodically.
[2025-06-10] MEDS: ACETAMINOPHEN SOL 325 MG/10 ML UDC GT (20:06)
[2025-06-10] MEDS: LIDOCAINE JELLY 2% (Urojet) 10 ML TUBE TOP (22:05)
[2025-06-11] VITALS (39 sets, daily range): BP systolic 106–169; BP diastolic 61–115; PULSE 88–150; RESP 13–42; TEMP 36.6–38.1; O2SAT 96–100; BMI 27.6
[2025-06-11] MEDS: ACETAMINOPHEN SOL 325 MG/10 ML UDC GT ×2 (00:35→08:11)
[2025-06-11] MEDS: MIDAZOLAM INJ 1 MG/ML VIAL 2 ML 4 MG IVP ×7 (01:07→16:51)
[2025-06-11] MEDS: HYDROmorphone INJ 2 MG/ML VIAL 0.5 MG IVP ×5 (01:07→20:46)
[2025-06-11] MEDS: oxyCODONE HCL 5 MG IR TAB 10 MG GT ×3 (05:04→21:28)
[2025-06-11] MEDS: PROPRANOLOL 10 MG TABLET GT ×3 (05:04→21:28)
[2025-06-11] MEDS: PIPER/TAZO INJ 4.5 GM in SODIUM CHLORIDE 0.9% (POP) 100 ML IV ×3 (05:05→21:28)
[2025-06-11] MEDS: HEPARIN SOD INJ 5000 UNIT/ML VIAL SC ×3 (05:15→21:29)
[2025-06-11 06:56] LABS: Basophils # (Auto) 0.1 Thou/mm3 (0.0-0.2); Basophils % (Auto) 1 % (0-2.5); Eosinophils # (Auto) 0.4 Thou/mm3 (0.0-0.5); Eosinophils % (Auto) 4 % (0-10); Hematocrit 26.5 % (41.0-53.0); Immature Granulocytes Auto 0.06 Thou/mm3 (0.00-0.00); Lymphocytes # (Auto) 2.7 Thou/mm3 (1.0-4.8); Lymphocytes % (Auto) 29 % (10-50); Mean Corpuscular HGB Conc 32.1 g/dl (31.0-37.0); Mean Corpuscular Hemoglobin 27.2 pg (25.0-35.0); Mean Corpuscular Volume 85 fL (80-100); Monocytes # (Auto) 1.6 Thou/mm3 (0.0-0.8); Monocytes % (Auto) 17 % (0-12); Neutrophils # (Auto) 4.5 Thou/mm3 (1.8-7.7); Neutrophils % (Auto) 48 % (37-80); Nucleated Red Blood Cell # 0.00 Thou/mm3 (0.00-0.00); Nucleated Red Blood Cell % 0 /100 WBC (0); Platelet Count 509 Thou/mm3 (140-440); RDW Standard Deviation 46.9 fL (35.1-43.9); Red Blood Count 3.13 Miln/mm3 (4.50-5.90); White Blood Count 9.4 Thou/mm3 (3.8-10.6)
[2025-06-11 07:05] LABS: Hemoglobin 8.5 g/dL (13.5-16.0)
[2025-06-11 07:27] LABS: Alanine Aminotransferase 50 U/L (10-49); Albumin, Serum 4.3 gm/dL (3.5-5.0); Albumin/Globulin Ratio 1.7 (1.2-2.2); Alkaline Phosphatase 199 U/L (46-116); Anion Gap 16 (7-16); Aspartate Amino Transferase 41 U/L (0-34); BUN/Creatinine Ratio 18 Ratio (12-20); Bilirubin,Total 0.4 mg/dL (0.3-1.2); Blood Urea Nitrogen 11 mg/dL (9-23); Calcium 9.9 mg/dL (8.3-10.6); Calcium (Corrected) 9.9 mg/dL (8.5-10.1); Carbon Dioxide 23.2 mMol/L (20.0-31.0); Chloride 99 mMol/L (98-107); Creatinine (Component) 0.6 mg/dL (0.6-1.3); Estimated Creatinine Clearance 144.0 mL/min (>60); Globulin 2.5 gm/dL (2.3-3.5); Glucose 88 mg/dL (74-106); Osmolality,Calculated 274 (275-295); Potassium 3.6 mMol/L (3.4-5.1); Procalcitonin 0.26 ng/ml (0.0-0.49); Sodium 138 mMol/L (136-145); Total Protein 6.8 gm/dL (5.7-8.2); eGFR > 60 See Note
[2025-06-11] MEDS: levETIRAcetam LIQD 500 MG/5 ML UDC 750 MG GT ×2 (08:11→20:47)
[2025-06-11] MEDS: VALPROIC ACID SYRUP 250 MG/5 ML UDC 500 MG GT ×2 (08:12→20:47)
[2025-06-11] MEDS: LANSOPRAZOLE 30 MG TAB.RAP.DR GT (08:12)
[2025-06-11] MEDS: SEVELAMER CARBONATE 0.8 GM PACKET (NON-FORMULARY) GT ×3 (09:11→16:58)
--- NOTE | 2025-06-11 10:14 | ESPR_ITS ---
<Statement entered by Jeanine Baeza MD - 06/12/25 10:58> TOTAL TIME: 45MINUTES ON DIRECT MEDICAL CARE, MANAGEMENT - COORDINATION AND COUNSELING > 50% OF TOTAL TIME I saw and evaluated the patient. I reviewed the resident?s note and agree with findings and plan as documented in the resident?s note. Started Austedo today, adjusting clonazepam, Versed and phenobarbital appropriately as well. Patient has extraordinarily severe tardive dyskinesia. Responds well when sedation is appropriately utilized. No clear evidence of worsening pneumonia continue long-term Zosyn. 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 14-day course would be most appropriate Continues to tolerate pressure support ventilation well especially when sedated <Statement entered by Alexandr Easton MD - 06/11/25 18:31> I have reviewed the note and agree with the resident's assessment & plan with exceptions as below. I have personally reviewed labs, imaging, home meds/prior records, examined the patient, formulated and discussed management plan with my attending. Patient was seen examined bedside's morning. No acute overnight events. Patient did get extra clonazepam at night which seem to have helped with tardive dyskinesia. Otherwise no significant changes today in the ventilator or patient's status. Will get labs Fridays. Increase patient clonazepam to 4 times daily from 3 times daily and started patient on Austedo as it was available today. Patient's family was made aware in the morning and as they had not picked up prescribed medication at the outpatient pharmacy this prescription was canceled as it was going to be started in the hospital. Otherwise we will monitor for patient for possible improvement in tardive dyskinesia with increase in clonazepam and initiation of Austedo, even though Austedo effects may take days to weeks prior to any significant improvement. Alexandr Easton PGY2 Disclaimer: Even though this this note was dictated by speech recognition and even though it was carefully revised there may still be minor errors in facility designer due to voice recognition software. Documentation for date of: 06/11/25 Subjective Subjective Interval history: 25-year-old male with cerebral palsy, asthma, seizure disorder, chronic mastoiditis, recurrent pneumonia, and chronic PEG tube dependence presented with fever and seizure, was admitted for sepsis workup, and later transferred to the ICU on 05/09/2025 where he underwent intubation and eventually underwent tracheostomy due to not being able to take off mechanical ventilator and increased accretions. Patient had a prolonged ICU stay until 05/31/2025 when he was downgraded back to the medical floors that his fever had subsided after medications which could have caused several changes and then were discontinued. Patient in the ICU received multiple full treatments with antibiotics including meropenem and got a bronchoscopy throughout the ICU stay. Once patient was downgraded to the medical floors on 06/01/2025 patient spiked a fever of 101.8 and was more tachycardic. IV fluids were given at this time and Versed pushes were also given for agitation. Hospitalist team then repeated blood cultures and urine cultures as well as sputum cultures. Patient sputum culture on 06/01/2025 did grow Pseudomonas aeruginosa sensitive to Zosyn and his urine did grow ESBL E. coli which was sensitive to Zosyn as well. Patient was also seen on 06/03/2025 by ENT and recommended acetic acid irrigations to the left ear with clotrimazole or VoSol drops twice daily for 10 days and also stated no need for surgical intervention for mastoiditis at this time. Even on recommendations by ENT and after starting fluconazole as well as Zosyn on 06/05/2025 patient still spiking fevers and today his heart was in the 160s and he was very tachypneic. On assessment patient was noted to have increased respiratory rate, was diaphoretic, and seemed in significant discomfort and was agitated. At this time patient was transferred to the ICU for further level care given fever of unclear etiology and increased agitation as well as breathing over the vent. 06/06/25: Patient seen and assessed at bedside. Was informed by family overnight that patient was previously on Seroquel 50 mg every morning as well as 100 mg nightly for agitation prior to admission. Restarted last night. Continued to have fevers (highest at 101.4F), resolved after 4AM. Tachycardia also resolved around the same time. Continues to be afebrile. On physical exam, noted to have bitten off the tip of his tongue, likely in setting of agitation overnight. Held Lovenox in setting of new active bleed. Will start on paralytic cistracurium to relax jaw and Surgicel bleeding site. Will increase Versed for sedation of RASS -4, will not start new sedative to avoid complicating his current condition and possibly inducing serotonin syndrome like previously during this admission. On labs, WBC continues to uptrend and phosphate slowly increasing. Restarted on sevelamer. Ordered bone scan to evaluate osteoblast activity (which may also be contributing to patient's recurrent fevers) and other potential sources of bone infection. Magnesium 1.7, repleted with IV mag sulfate 4g. Patient's family was updated via phone with allied health teacher present of patient's current condition including tongue laceration. Notified them of current plan of action including need for paralytic at this time, they were agreeable to plan. Continue Zosyn, fluconazole, and clotrimazole ear drops. 06/07/2025: Overnight patient required injections of lidocaine epi injections to control gum bleeding, overnight had ventilator asynchrony and patient's ventilator mode was switched to ACMV with PRVC to improve tidal volume. Chest x-ray obtained this morning shows left base consolidation, consent for bronchoscopy obtained from family. Patient on Nimbex and Versed drip, bronchoscopy revealed large mucous plug left lower lobe, patient switched to volume control after. Weaned off of Nimbex, currently on Versed with RASS goal -4 will down titrate Versed as tolerated. Oral packing which was placed overnight was removed, no signs of active bleeding. Patient will be evaluated by ENT, urology in AM. 06/08/2025: Patient was seen and examined at bedside this morning. Overnight patient did spike fevers with the highest being 101.3. Otherwise has had no further bleeding from mouth. Off Nimbex, still currently on Versed drip. Will start and wean patient down from Versed drip with a RASS of 0 until we are entirely off the Versed drip only using Versed pushes as needed for agitation. Will also increase patient's phenobarbital to twice daily from at bedtime and start clonazepam 0.5 mg BID. Ventilator setting on PS. ENT saw the patient stated no need for further ear drops as no visible drainage appreciated, but did recommend nasal saline gel for moisturizing, but currently unavailable in the hospital after speaking with pharmacy. Urology saw the patient today and did a dorsal slit procedure at bedside after consent was obtained from the patient's father using boom crane operator, Armando ID #[id number].. Patient received fentanyl x3 for pain control as well as versed 2mg x2 during the procedure. Again tried to reach out to patient's mother and father using boom crane operator, Macario ID [id number], but was unsuccessful as they were unreachable to both phone numbers available. Spoke with patient's mother and provided updates on patient's current condition. Answered all questions and concerns and patient's family was agreeable. Did state today's plan which included MRI L LE to r/o osteomyelitis, ENT specialist to see the patient, decreasing sedation, and that we are waiting for Urology concerning phimosis and need of urine culture repeat. certified prosthetist vice president was used, Maritza ID #[id number]. Priorly also used boom crane operator Mary ID #[id number], but patient's mother and father did not answer therefore left a message and subsequently got a call back from patient's mother and used boom crane operator Maritza ID #[id number]. Patient's mother, brother, and father came by and were updated about the procedure with in hospital boom crane operatorlizbeth. Explained that patient may need to go to subacute for further rehab as he is unlikely to be weaned off mechanical ventilator during hospital admission. Also updated them on the patient's fever and that we are weaning off sedation. They stated they were agreeable with treatment plan and if any emergency came up that they would be okay with anything to save his life even if they were notified after any emergent procedure. All their questions were answered. 06/09/2025: No acute events overnight. Patient seen and examined at bedside. Patient was put on pressure support this morning, however patient was observed to be more agitated with increased respiratory rate and heart rate, so pressure support was increased which resolved the patient's distress and decreased patient's respiratory rate. Patient is currently still on Versed drip with plans to wean patient off and transition to Versed pushes as needed. MRI of left lower leg showed severely degraded images due to continuous patient motion. Examination of the patient's lower extremities today show no pain on deep palpation of both his knees and his tibial or fibular regions. Will hold off on pursuing any additional imaging at this time and reevaluate tomorrow. Will continue with tube feeds and monitor the patient for additional oral trauma. Morphine pushes as needed started for pain given dorsal slit procedure yesterday with agitation and withdrawal on palpation of penis. This information was communicated to the patient's father over the phone using certified first aid attendant ID [id number]. The patient's mother came in person in the afternoon and was updated in person using certified first aid attendant Leanna [id number]. 06/10/2025: No acute events overnight. Patient is completely off sedation, however patient did have a fever of 100.6 yesterday at 1739 and has been afebrile since then. Patient's respiratory status continues to require high levels of pressure support on mechanical ventilation. Patient was noted to be tachycardic this morning and showed signs of repetitive motions in his hands and legs along with periodic grimacing. Given that the patient only showed signs of tachycardia without elevation in blood pressure or respiratory rate, these nonpurposeful movements are highly suspicious for tardive dyskinesia that was suppressed while the patient was on Versed drip. The patient's father and mother were contacted [place] [id number], to ask if the patient had ever had any of the symptoms and if he had been taking any medication to help with the symptoms. During this conversation, the patient's father noted that the patient has had abnormal movements for many years since he was a child and the patient had been taking trihexyphenidyl for many years, which seemed to have controlled these abnormal movements. The family did note that the patient was hospitalized about a year ago, and due to concerns of recurrent fevers, the trihexyphenidyl was discontinued and the patient's neurologist started the patient on deutetrabenazine (Austedo). ICU team then reached out to pharmacy to see if these medications could be obtained as they are nonformulary. Pharmacy confirmed that they are nonformulary, but could be ordered for the patient. The patient's father and mother were called back again, this time with registered allied health teacher Dayana, ID [id number], to discuss sign the patient on deutetrabenazine for the patient's abnormal movements and stopping the patient's Seroquel as it may be contributing to the patient's abnormal movements. It was also discussed how the trihexyphenidyl would not be started as it could worsen the patient's abnormal movements. The patient's family stated that they were concerned about restarting the deutetrabenazine as the patient became more agitated after starting that medication in the past. The patient's family requested to see the patient in person before making further adjustments to his medications. The patient's mother and father came to visit the patient early in the afternoon and in-house registered allied health teacher Lizbeth was present to help translate. The patient's family explained that the patient's abnormal movements are very reminiscent of his movements at home and were willing to try the tetrabenazine as well as stopping the Seroquel. They did however request that the patient be observed in the ICU for at least 3 more days as the patient has had a history of fevers and increased agitation with starting a new medication. Additionally, the patient's mother and father requested a tour of [facility] subacute care to see if they would like to send the patient to subacute instead of home on discharge. Given patient's stable labs, will transition to lab draws Friday. Also increased the dose of phenobarbital to 130 mg three times daily, increased Versed to 4 mg every hour as needed for agitation, and transitioned from morphine to Dilaudid 0.5 mg every 4 hours. Discussed with pharmacy regarding starting deutetrabenazine versus tetrabenazine. Will order both with deutetrabenazine on hold for now, and start with tetrabenazine first to see if the patient's tardive dyskinesia improves and if he tolerates the medication. If tetrabenazine does not improve the patient's tardive dyskinesia or if side effects are intolerable, then we will swap to the deutetrabenazine to see if that improves his condition. Prescribed deutetrabenazine to the patient so that family members may pick it up and bring it to the ICU tomorrow to start treatment earlier. 06/11/2025: No acute events overnight. Patient was noted to have a fever of 100.6 ?F at around midnight last night. Patient was seen and examined at bedside this morning, noted that the patient appeared to be asleep and did not have any abnormal movements of his extremities or face. Pharmacy was able to expedite the process of obtaining the deutetrabenazine, so the deutetrabenazine was started today. Will monitor the patient for side effects of the deutetrabenazine, which includes diarrhea, dry mouth, fatigue, and increased agitation/restlessness. It is noted that the effects of the tetrabenazine may take several weeks, with the largest improvement occurring within the initial 4 weeks. Additionally, the patient's clonazepam was increased to 4 times daily from 3 times daily as the extra clonazepam overnight did seem to help with the patient's abnormal movements. The patient's family was updated over the phone with the registered allied health teacher Erica ID [id number]. Exam Vital Signs Temp Pulse Resp BP Pulse Ox O2 Del Method O2 Flow Rate 97.9 F 133 H 20 117/93 H 100 Mechanical Ventilation 35 06/11/25 08:01 06/11/25 09:02 06/11/25 07:44 06/11/25 08:01 06/11/25 09:02 06/11/25 08:01 06/05/25 16:00 FiO2 30 06/11/25 07:44 Narrative Exam Gen: Alert, random, non-purposeful twisting movement of arms and periodic grimacing of face HEENT: NCAT, EOMI, Pupils reactive KARLO, not icteric. External ears normal. No rhinorrhea. Moist mucous membranes with no visible blood. Neck: Supple, full range of motion, no observable masses, No meningeal sign. Lungs: Coarse breath sounds bilateral, mechanically ventilated. CV: Tachycardic, no murmurs appreciated. Abdomen: Soft, nondistended, No rebound tenderness, PEG tube in place, peristalsis present. MSK: No lower extremity edema, no redness, peripheral pulses presents, Contracted and swollen hands, decreased tone : Penis glan visible and clean dressing around penis s/p dorsal slit procedure. Pain to light palpation of penis. Skin: No, petechiae, lesions, erythematous Neuro: Alert and moving extremities, pupils reactive Objective Labs 06/11/25 04:42 06/11/25 04:42 Labs: Laboratory Results - last 24 hr 06/10/25 06/11/25 17:41 04:42 WBC 9.4 RBC 3.13 L Hgb 8.5 L Hct 26.5 L MCV 85 MCH 27.2 MCHC 32.1 RDW Std Deviation 46.9 H Plt Count 509 H D Neut % (Auto) 48 Lymph % (Auto) 29 Ballard % (Auto) 17 H Eos % (Auto) 4 Baso % (Auto) 1 Neut # (Auto) 4.5 Lymph # (Auto) 2.7 Ballard # (Auto) 1.6 H Eos # (Auto) 0.4 Baso # (Auto) 0.1 Immature Gran # (Auto) 0.06 H Absolute Nucleated RBC 0.00 Immature Gran % 1 H Nucleated RBC % 0 VBG pH 7.40 VBG pCO2 43 VBG pO2 43 VBG O2 Sat (Maryam) 74 L VBG Base Excess 2 Sodium 138 Potassium 3.6 Chloride 99 Carbon Dioxide 23.2 Anion Gap 16 BUN 11 Creatinine 0.6 Estim Creat Clear Calc 144.0 eGFR > 60 BUN/Creatinine Ratio 18 Glucose 88 Calculated Osmolality 274 L Calcium 9.9 Corrected Calcium 9.9 Total Bilirubin 0.4 AST 41 H ALT 50 H Alkaline Phosphatase 199 H Total Protein 6.8 Albumin 4.3 Globulin 2.5 Albumin/Globulin Ratio 1.7 Procalcitonin 0.26 ABG Interpretation ABG results: 05/09/25 05/09/25 05/09/25 11:56 13:40 18:50 ABG pH 7.40 7.27 L D 7.28 L ABG pCO2 40 43 55 H D ABG pO2 131 H 53 L* D 70 L ABG HCO3 25 20 26 ABG O2 Saturation 99 H 81 L 92 ABG Base Excess 0 -7 L -2 VBG pH VBG pCO2 VBG pO2 VBG Base Excess 05/10/25 05/11/25 05/12/25 00:14 05:06 01:18 ABG pH 7.35 7.33 L 7.39 ABG pCO2 42 D 54 H D 48 ABG pO2 103 D 93 94 ABG HCO3 23 28 H 29 H ABG O2 Saturation 99 H 98 98 ABG Base Excess -3 2 3 VBG pH VBG pCO2 VBG pO2 VBG Base Excess 05/12/25 05/12/25 05/13/25 03:58 11:50 05:10 ABG pH 7.46 H 7.39 7.19 L* D ABG pCO2 41 48 60 H D ABG pO2 105 58 L* D 114 H D ABG HCO3 29 H 29 H 23 ABG O2 Saturation 99 H 90 L 98 ABG Base Excess 5 H 4 H -6 L VBG pH VBG pCO2 VBG pO2 VBG Base Excess 05/17/25 05/18/25 05/19/25 01:30 04:09 04:43 ABG pH 7.38 7.43 7.47 H ABG pCO2 46 44 43 ABG pO2 90 83 80 L ABG HCO3 27 H 29 H 31 H ABG O2 Saturation 98 97 97 ABG Base Excess 2 5 H 7 H VBG pH VBG pCO2 VBG pO2 VBG Base Excess 05/21/25 05/21/25 05/31/25 04:18 06:33 08:06 ABG pH 7.37 D 7.46 H ABG pCO2 50 H 38 D ABG pO2 40 L* D 121 H D ABG HCO3 29 H 27 H ABG O2 Saturation 66 L 100 H ABG Base Excess 3 3 VBG pH 7.55 VBG pCO2 31 L VBG pO2 144 H VBG Base Excess 5 H 06/05/25 06/05/25 06/06/25 13:37 23:46 05:20 ABG pH 7.47 H 7.45 ABG pCO2 35 38 ABG pO2 200 H 54 L* D ABG HCO3 25 26 ABG O2 Saturation 101 H 89 L ABG Base Excess 2 2 VBG pH 7.50 VBG pCO2 34 L VBG pO2 90 H VBG Base Excess 4 H 06/10/25 17:41 ABG pH ABG pCO2 ABG pO2 ABG HCO3 ABG O2 Saturation ABG Base Excess VBG pH 7.40 VBG pCO2 43 VBG pO2 43 VBG Base Excess 2 Quality Measures Quality Measures VTE prophylaxis (SCDs) and sepsis Current suspected stage: ruled out Possible source: pulmonary Blood cultures ordered: yes Antibiotic ordered: Yes Assessment & Plan Assessment Current Active Medications: Generic Name Dose Route Start Last Admin Trade Name Freq PRN Reason Stop Dose Admin Acetaminophen 325 mg 06/09/25 18:19 06/11/25 08:11 Acetaminophen Racquel 325 Mg/10 Ml Udc GT 07/09/25 16:12 325 mg Q4HR PRN Administration pain (1-3) or fever > 100.4 Clonazepam 0.5 mg 06/11/25 12:00 Clonazepam 0.5 Mg Tablet PO 06/16/25 11:59 QID KYA Deutetrabenazine 6 mg 06/11/25 10:00 Deutetrabenazine 6 Mg Tablet (Non-Formulary) PO 07/11/25 09:59 BIDWM KYA Ferrous Sulfate 325 mg 06/01/25 09:00 06/11/25 08:11 Ferrous Sulfate 300 Mg/5 Ml Udc PO 07/01/25 08:59 325 mg QOD KYA Administration Heparin Sodium (Porcine) 5,000 unit 06/08/25 14:00 06/11/25 05:15 Heparin Sod Inj 5000 Unit/Ml Vial SC 06/22/25 13:59 5,000 unit Q8HR KYA Administration Hydromorphone HCl 0.5 mg 06/10/25 06:56 06/11/25 05:04 Hydromorphone Inj 2 Mg/Ml Vial IVP 06/15/25 06:55 0.5 mg Q4HR PRN Administration BREAKTHROUGH PAIN Piperacillin Sod/Tazobactam 100 mls @ 200 mls/hr 06/05/25 14:00 06/11/25 05:35 Sod 4.5 gm/ Sodium Chloride IV 06/12/25 13:59 Infused Q8HR KYA Infusion Protocol Midazolam HCl 100 mg in 100 mls @ 1 mls/hr 06/08/25 17:19 Versed Pf Inj In Ns Premix IV 06/12/25 18:59 .Q24H PRN PER PROTOCOL Protocol 1 MG/HR Lansoprazole 30 mg 05/28/25 09:00 06/11/25 08:12 Lansoprazole 30 Mg Tab.Rap.Dr GT 06/27/25 08:59 30 mg QDAY KYA Administration Levetiracetam 750 mg 05/30/25 09:00 06/11/25 08:11 Levetiracetam Liqd 500 Mg/5 Ml Udc GT 06/29/25 08:59 750 mg BID KYA Administration Midazolam HCl 4 mg 06/10/25 14:43 06/11/25 09:08 Midazolam Inj 1 Mg/Ml Vial 2 Ml IVP 06/12/25 15:58 4 mg Q1HR PRN Administration AGITATION OR ANXIETY Ondansetron HCl 4 mg 05/27/25 14:37 Ondansetron Odt 4 Mg Tabrap GT 06/26/25 14:36 Q6HR PRN NAUSEA OR VOMITING Protocol Oxycodone HCl 10 mg 06/09/25 15:45 06/11/25 05:04 Oxycodone Hcl 5 Mg Ir Tab GT 06/14/25 15:44 10 mg TID KYA Administration Phenobarbital 129.6 mg 06/10/25 14:45 06/11/25 05:03 Phenobarbital 32.4 Mg Tablet GT 06/24/25 14:44 129.6 mg TID KYA Administration Polyethylene Glycol 17 gm 05/16/25 09:15 06/08/25 09:36 Polyethylene Glycol 17 Gm Packet PO 06/15/25 09:14 Not Given On Hold: 06/09/25 06:55 QDAY KYA Propranolol HCl 10 mg 06/06/25 06:00 06/11/25 05:04 Propranolol 10 Mg Tablet GT 07/06/25 05:59 10 mg TID KYA Administration Sevelamer Carbonate 0.8 gm 06/11/25 09:00 06/11/25 09:11 Sevelamer Carbonate 0.8 Gm Packet (Non-Formulary) GT 07/11/25 08:59 0.8 gm TIDWM KYA Administration Sodium Chloride 3 ml 05/17/25 11:43 Sodium Chloride Rt Racquel 0.9% 3 Ml Nebu INH 06/16/25 11:42 PRN PRN SOLN Valproic Acid 500 mg 06/10/25 09:00 06/11/25 08:12 Valproic Acid Syrup 250 Mg/5 Ml Udc GT 07/10/25 08:59 500 mg BID KYA Administration Plan 25-year-old male with history of cerebral palsy, asthma, seizure disorder, chronic mastoiditis, recurrent pneumonia, and chronic PEG tube dependence presented on 05/08/2025 with fever and seizure, was admitted for sepsis workup, and later transferred to the ICU on 05/09/25 for increased agitation, tachypnea, and increased secretions with recurrent fevers. Was downgraded on 05/31/25 due to resolution of fever for at least 48 hours however was upgraded back on 06/05/25 due to increased work of breathing, ventilator asynchrony agitation and fever. Neurological #Agitation Differential diagnosis: ICU acquired delirium, opiate withdrawal, delirium Diagnostic workup: - Patient was weaned off of sedation and was downgraded to telemetry, however as sedatives were down titrated and telemetry patient had episode of severe agitation and ventilator asynchrony and was upgraded to ICU for further intervention. - EEG 05/11 unremarkable. Repeat EEG 10/24 showed electrographic seizure activity. Continuous EEG 05/22-05/23: no seizure activity or status epilepticus. Repeat EEG 06/05 negative for seizure activity. - MRI brain 05/23: showed chronic infections, no acute pathology. Treatment: - Cisatracurium gtt discontinued - Versed gtt discontinued - Phenobarbital 129.6 mg three times daily - Clonazepam 0.5 mg four times daily - Oxycodone 10 mg three times daily Follow-up: - Use Versed 4 mg pushes every hour as needed #Tardive dyskinesia Diagnostic workup: - Nonpurposeful twisting movements of the patient's upper extremity with recurrent grimaces noted on 06/10 when the patient was taken off sedation - Patient's family notes that the patient has had a long history of nonpurposeful movement and has been previously prescribed deutetrabenazine for management by his neurologist Treatment: - Discontinued home Seroquel 50 mg in the morning and 100 mg at night due to tardive dyskinesia - Deutetrabenazine 6 mg twice daily Follow-up: - If deutetrabenazine remains an effective, will increase to 12 mg twice daily after 1 week of starting the medication, may take up to 4 weeks to see maximal effect - Will consider cessation of deutetrabenazine if patient has uncontrolled side effects of diarrhea, dry mouth, fatigue, or worsening agitation/restlessness after starting deutetrabenazine #Seizure disorder by history #Cerebral palsy by history Diagnostic workup: - Active seizure disorder ruled out, multiple EEGs negative for seizure activity Treatment: - Continue Depakote 250 mg GT every 8 hours and Keppra 750 mg GT twice daily Cardiology #Sinus tachycardia Differential diagnosis: Infection, hypersympathetic activity Diagnostic workup: - Did have positive sputum and urine culture for Pseudomonas and ESBL respectively - Patient's last fever was 06/06/2025 04:36 - Echocardiogram was obtained to rule out any vegetations TTE shows normal systolic function, EF 55 to 60%, diastolic dysfunction grade 1, no evidence of vegetation or endocarditis Treatment: - Continue propranolol 10 mg 3 times daily - Continue antibiotics Follow-up: - Monitor for fever, use ibuprofen as needed for fever episode - Telemetry monitoring Pulmonary #Mucus plugs, right upper lung and left lower lung Diagnostic workup: - Chest x-ray obtained 06/07 AM, showed a left lower lobe consolidation, ddx left lower lobe pneumonia versus mucous plug versus left pleural effusion versus mucous plug versus atelectasis lung ultrasound at bedside, effusion ruled out, no hepatization of the lung noted. Consent obtained from family for bronchoscopy. - Bedside bronchoscopy showed left lower lobe mucous plug, suction. Treatment: -Bedside bronchoscopy (06/07/2025) with clearance of mucous plug done successfully Follow-up: - Once weaned off sedation and patient has cough reflex intact and more awake/alert, will consider chest physiotherapy. #Mechanical ventilation #Chronic respiratory failure status post tracheostomy 05/26 Currently on PS Diagnostic workup: -Patient failed extubation during the hospitalization on 05/12, was reintubated overnight 05/13. -Unable to wean patient off ventilator, tracheostomy performed 05/26/2025, sutures removed 06/06/2025 -Patient underwent bronchoscopies 05/14, 05/17 and 06/05 for increased secretions - Currently on PS, will keep PS overnight Treatment: -Monitor SpO2, goal greater than 92 -Continue mechanical ventilation on PS Follow-up: -Continue to down titrate pressure on PS as tolerated until 5 mmHg, then transition to Blow-by if patient tolerates low pressure PS ventilation #Asthma by history Diagnostic workup: - Patient has history of asthma on montelukast, albuterol as needed at home Treatment: - Currently on mechanical ventilation Gastrointestinal #Chronic PEG tube dependence Differential diagnosis: Chronic dysphagia likely in setting of cerebral palsy Diagnostic workup: -Patient was previously on Jevity 1.5, switched to Nepro due to hyperphosphatemia. Treatment: -Resume Nepro trickle feeds, advance as tolerated Follow-up: - Goal tube feeds as tolerated #Transaminitis, resolved #Hypoalbuminemia, resolved Renal/Genitourinary #Elevated alkaline phosphatase, improving #Low PTH #Abnormal nuclear medicine bone scan Differential diagnosis: increased osteoblastic activity in setting of vegetative state, bone infection (particularly of left mastoid), hypoparathyroidism, osteoarthritis Diagnostic workup: - PTH intact low at 3.6, calcium 9.9, vitamin D 25-OH 18.1 - Renal function intact, at baseline - Nuclear medicine bone scan shows minor asymmetric uptake left knee and mild increased uptake mid left tibia - Knee x-ray 06/06 and tibia-fibula x-ray 06/06 showed no findings diagnostic for osseous metastatic disease - MRI left leg 06/08 images severely degraded by continuous patient motion - No pain to palpation of bilateral lower extremities Treatment: - Continue sevelamer 800 mg 3 times daily - Patient to follow up on abnormal imaging outpatient #Phimosis s/p dorsal slit procedure 06/08/2025 #Paraphimosis (resolved) #Balanitis (resolved) Diagnostic workup: - Edema and tenderness of the glans penis, Swelling of the distal retracted foreskin, Constricting band of tissue proximal to the head of the penis at the coronal sulcus on presentation, s/p reduction of the paraphimosis by urologist Dr. Vargas on 05/09. - Patient has somewhat retractable foreskin, has good urine output, no swelling noted, has external catheter draining well - Urologist Dr. Vargas performed dorsal slit procedure on 06/08 Treatment: - Dilaudid 0.5 mg IVP every 4 hours as needed for breakthrough pain Follow-up: - Continue to monitor for worsening swelling, bleeding, or blockage of urine #Hyperkalemia, resolved #VITALIY resolved #Lactic acidosis resolved #Acute kidney injury resolved #Rhabdomyolysis resolved #Hyperphosphatemia, resolved Endocrine No active problems Hematology #Acute nonocclusive thrombus in the left brachial vein Diagnostic workup: - Venous doppler study of upper extremities 05/16: Normal right upper extremity deep venous system. Positive for nonocclusive thrombus in the left brachial vein. - Per chart review and patient's parents, patient does not have history of clots. - Given patient's inability to safely engage and risk of continued trauma to buccal mucosa by biting will not do full dose anticoagulation given increased risk of bleeding Treatment: - Heparin loading dose and ggt. Lovenox to heparin due to heparin?s shorter half-life, which allows for more rapid cessation in the event of bleeding, a shorter half life and can be stopped if bleeding occurs. - Stopped heparin ggt due to hematuria on 05/18. - Restarted Lovenox 05/31 for tx of primary upper extremity deep vein thrombosis, anticoagulation should be continued for a minimum of three months following the initial thrombotic event, but given patient is high risk to buccal mucosa trauma will not pursue therapeutic dose as high risk of bleeding. Transitioned to heparin SC every 8 hours. Follow-up: - Heparin SC every 8 hours for DVT prophylaxis #Normocytic Anemia Differential diagnosis: Anemia of chronic disease, nutritional anemia, iatrogenic Diagnostic workup: -Likely multifactorial, currently not an active concern Treatment: -Monitor CBC, transfuse if hemoglobin less than 7 #Leukocytosis, resolved #Thrombocytopenia, resolved #Thrombocytosis, resolved Infectious Disease #Bilateral chronic mastoiditis #Sinusitis #Bilateral otitis media and otitis externa Diagnostic workup: -White fungal debris and clear drainage noted by associate professor of mathematics, tympanic membrane not visualized on left ear -Right ear canal with small amount of clear drainage, tympanic membrane generally thickened and opaque -05/08 CT Head: prominent sphenoid ethmoid maxillary antral sinusitis, bilateral chronic mastoiditis, bilateral otitis media. -05/08 CT Orbit Sella Inner: severe bilateral chronic mastoiditis, bilateral otitis externa and otitis media, bilateral cholesteatomas in the attics. Treatment: -Ofloxacin Opt racquel 0.3% 5 drops Both ears bid (05/09-05/18, 05/21-05/31) -Ciprofloxacin Op Racquel 0.3% ear drops (06/02-06/03) -Discontinued Acetic acid irrigations to left ear, clotrimazole drops both ears twice daily for 10 days (06/04-06/08/2025) as per ENT #UTI, ESBL E. coli #Pseudomonas aeruginosa, sputum positive Differential diagnosis: Colonization, active infection Diagnostic workup: Sputum culture 06/05 shows sensitive to Zosyn and intermittent resistance to cefepime Sputum culture 06/01 shows Pseudomonas sensitive to Zosyn and intermittent resistant to cefepime Sputum culture from 05/09 shows Pseudomonas only sensitive to meropenem and tobramycin Sputum culture from 05/20 shows Brittney albicans Sputum culture 05/13,05/19 negative Urine culture 06/01 shows ESBL E. coli sensitive to Zosyn CSF culture 05/26, 05/10 negative ENT specimen 05/12 left ear shows Brittney parapsilosis ENT culture from right ear 05/12 shows ESBL E. coli sensitive to Zosyn, meropenem and ertapenem Blood cultures obtained 05/08, 05/11, 05/16, 06/01, 06/05 negative, bronchial washing 05/14 for fungal cultures pending Treatment: - Currently on IV Zosyn 06/05- IV Zosyn 3.375g x1 (at 05/08) IV Ceftriaxone 1g x1 (at 05/08) IV Acyclovir 640mg q8hr (05/08-05/11) IV Ceftriaxone 2g q12hr (05/08-05/11) IV Vancomycin qd (05/08-05/11) since MRSA screen is negative IV Meropenem 1000mg q8hr (05/12-05/22, 05/24-05/25) IV Doxycycline (05/16-05/18) IV Micafungin 100mg qd (05/28-05/30, 06/01-06/03) IV fluconazole 06/05-06/07 Follow-up: - Continue to monitor for fever Integumentary #Tongue Laceration, traumatic #Gingivial Bleeding, Oral Trauma Diagnostic workup: -Known to have episodes of jaw spasms and teeth clenching with agitation. Had significant trauma to gums and tongue due to clenching of teeth 06/06 - No further bleeding appreciated in oral mucosa Treatment: - Patient required cisatracurium to relax jaw, pressure was applied locally, oral packing none, injections of lido?epinephrine x 3 to gums on 06/06 night Follow-up: - Monitor for bleeding Health Maintenance: Feeding/fluids: Currently on trickle feeds with Nepro, free water fluid Analgesia: Oxycodone via G-tube, Morphine IVP PRN Sedation: Phenobarbital BID, Clonazepam TID, Versed PRN Thromboprophylaxis: SCDs, heparin SC Head up position: Head of bed elevated Ulcer prophylaxis: Lansoprazole Glycemic control: AM blood glucose within normal limits Spontaneous breathing trial: Chronically trached on mechanical ventilation Bowel care: On MiraLAX daily Indwelling catheter removal: No chronic Osborne/lines De-escalation of antibiotics: Will continue with Zosyn, history of multi drug- resistant organisms Code status: Full code Case disclosed with Attending Dr. Jeanine Baeza and senior resident Dr. Alvarez (PGY-2) Alejandro Maravilla, PGY-1
--- NOTE | 2025-06-11 23:52 | VVPN_ITS ---
Telemedicine visit statement This visit was conducted with the use of interactive audio and video telecommunications system that permits real time communication between the patient and the provider. Patient's verbal consent for virtual visit was obtained on 06/11/25 at 2352. Documentation for date of: 06/11/25 Subjective Subjective Interval history: Patient is in ICU, continue to remain [facility] Started on Austedo today, now he is Dilaudid for pain, has a low-grade fever but no major fever spikes last 24 hours. Virtual exam Vital Signs Temp Pulse Resp BP Pulse Ox O2 Del Method O2 Flow Rate 100 F 88 20 108/61 100 Trach Collar 35 06/11/25 20:00 06/11/25 23:00 06/11/25 20:00 06/11/25 23:00 06/11/25 23:00 06/11/25 20:00 06/05/25 16:00 FiO2 30 06/11/25 22:19 Objective Labs 06/11/25 04:42 06/11/25 04:42 Labs: Laboratory Results - last 24 hr 06/11/25 04:42 WBC 9.4 RBC 3.13 L Hgb 8.5 L Hct 26.5 L MCV 85 MCH 27.2 MCHC 32.1 RDW Std Deviation 46.9 H Plt Count 509 H D Neut % (Auto) 48 Lymph % (Auto) 29 [place] % (Auto) 17 H Eos % (Auto) 4 Baso % (Auto) 1 Neut # (Auto) 4.5 Lymph # (Auto) 2.7 [place] # (Auto) 1.6 H Eos # (Auto) 0.4 Baso # (Auto) 0.1 Immature Gran # (Auto) 0.06 H Absolute Nucleated RBC 0.00 Immature Gran % 1 H Nucleated RBC % 0 Sodium 138 Potassium 3.6 Chloride 99 Carbon Dioxide 23.2 Anion Gap 16 BUN 11 Creatinine 0.6 Estim Creat Clear Calc 144.0 eGFR > 60 BUN/Creatinine Ratio 18 Glucose 88 Calculated Osmolality 274 L Calcium 9.9 Corrected Calcium 9.9 Total Bilirubin 0.4 AST 41 H ALT 50 H Alkaline Phosphatase 199 H Total Protein 6.8 Albumin 4.3 Globulin 2.5 Albumin/Globulin Ratio 1.7 Procalcitonin 0.26 ABG Interpretation ABG results: 05/09/25 05/09/25 05/09/25 11:56 13:40 18:50 ABG pH 7.40 7.27 L D 7.28 L ABG pCO2 40 43 55 H D ABG pO2 131 H 53 L* D 70 L ABG HCO3 25 20 26 ABG O2 Saturation 99 H 81 L 92 ABG Base Excess 0 -7 L -2 VBG pH VBG pCO2 VBG pO2 VBG Base Excess 05/10/25 05/11/25 05/12/25 00:14 05:06 01:18 ABG pH 7.35 7.33 L 7.39 ABG pCO2 42 D 54 H D 48 ABG pO2 103 D 93 94 ABG HCO3 23 28 H 29 H ABG O2 Saturation 99 H 98 98 ABG Base Excess -3 2 3 VBG pH VBG pCO2 VBG pO2 VBG Base Excess 05/12/25 05/12/25 05/13/25 03:58 11:50 05:10 ABG pH 7.46 H 7.39 7.19 L* D ABG pCO2 41 48 60 H D ABG pO2 105 58 L* D 114 H D ABG HCO3 29 H 29 H 23 ABG O2 Saturation 99 H 90 L 98 ABG Base Excess 5 H 4 H -6 L VBG pH VBG pCO2 VBG pO2 VBG Base Excess 05/17/25 05/18/25 05/19/25 01:30 04:09 04:43 ABG pH 7.38 7.43 7.47 H ABG pCO2 46 44 43 ABG pO2 90 83 80 L ABG HCO3 27 H 29 H 31 H ABG O2 Saturation 98 97 97 ABG Base Excess 2 5 H 7 H VBG pH VBG pCO2 VBG pO2 VBG Base Excess 05/21/25 05/21/25 05/31/25 04:18 06:33 08:06 ABG pH 7.37 D 7.46 H ABG pCO2 50 H 38 D ABG pO2 40 L* D 121 H D ABG HCO3 29 H 27 H ABG O2 Saturation 66 L 100 H ABG Base Excess 3 3 VBG pH 7.55 VBG pCO2 31 L VBG pO2 144 H VBG Base Excess 5 H 06/05/25 06/05/25 06/06/25 13:37 23:46 05:20 ABG pH 7.47 H 7.45 ABG pCO2 35 38 ABG pO2 200 H 54 L* D ABG HCO3 25 26 ABG O2 Saturation 101 H 89 L ABG Base Excess 2 2 VBG pH 7.50 VBG pCO2 34 L VBG pO2 90 H VBG Base Excess 4 H 06/10/25 17:41 ABG pH ABG pCO2 ABG pO2 ABG HCO3 ABG O2 Saturation ABG Base Excess VBG pH 7.40 VBG pCO2 43 VBG pO2 43 VBG Base Excess 2 Assessment & Plan Assessment David Baltazar is 24 yr male with PMH of chronic mastoiditis (previously had tympanostomy tube placed for recurrent otitis media, now removed), seizure disorder, recurrent pneumonia, cerebral palsy, chronic PEG tube, and asthma who was brought into ED on 05/08/25 for ongoing fever of over 24 hours and reported episode of witnessed seizure by ED. Patient was treated for sepsis.Neurology was consulted. Cerebral palsy Chronic pansinusitis Tonic clonic seizure Otitis Interna, severe - CSF analysis x2 : unremarkable. - Meningitis - ruled out - MRI brain: chronic pansinusitis. - ENT evaluation completed, appreciate input Recommendations: - Keep seizure precautions in place - On Keppra 800mg BID + Depakote 250mg TID + Quetiapine 100mg HS + PRN Clonazepam 0.5mg TID - Started Austedo (Deutetrabenazine) 6mg BID for tardive dyskinesia. Anticipate improvement with Austedo. May DC once stable. Primary care team to manage other medical conditions and ongoing care needed.
[2025-06-12] VITALS (32 sets, daily range): BP systolic 99–139; BP diastolic 57–89; PULSE 85–120; RESP 8–25; TEMP 36.2–38.5; O2SAT 98–100; BMI 26.9
[2025-06-12] MEDS: PIPER/TAZO INJ 4.5 GM in SODIUM CHLORIDE 0.9% (POP) 100 ML IV ×3 (05:47→21:17)
[2025-06-12] MEDS: oxyCODONE HCL 5 MG IR TAB 10 MG GT ×3 (05:48→21:17)
[2025-06-12] MEDS: PROPRANOLOL 10 MG TABLET GT (05:48)
[2025-06-12] MEDS: HEPARIN SOD INJ 5000 UNIT/ML VIAL SC ×3 (05:49→21:18)
[2025-06-12] MEDS: SEVELAMER CARBONATE 0.8 GM PACKET (NON-FORMULARY) GT ×3 (08:21→17:02)
[2025-06-12] MEDS: VALPROIC ACID SYRUP 250 MG/5 ML UDC 500 MG GT ×2 (08:21→20:36)
[2025-06-12] MEDS: levETIRAcetam LIQD 500 MG/5 ML UDC 750 MG GT ×2 (08:21→20:35)
[2025-06-12] MEDS: LANSOPRAZOLE 30 MG TAB.RAP.DR GT (08:21)
--- NOTE | 2025-06-12 10:25 | PC.SS ---
rounding note: Patient pending placement in subacute. [facility] subacute admissions team to update Friday. Monitoring patient agitation/adjustment. No documented agitation recently.
--- NOTE | 2025-06-12 10:26 | ESPR_ITS ---
<Statement entered by Jeanine Baeza MD - 06/12/25 11:19> TOTAL TIME: 45MINUTES ON DIRECT MEDICAL CARE, MANAGEMENT - COORDINATION AND COUNSELING > 50% OF TOTAL TIME I saw and evaluated the patient. I reviewed the resident?s note and agree with findings and plan as documented in the resident?s note. Patient is appropriately sedated and comfortable with the dramatic improvement in overall respiratory rate, and tachycardia. When awake he clearly suffers from severe tardive dyskinesia. Hold orders been placed for the phenobarbital and benzodiazepines as well as narcotics based off heart rate, respiratory rate and blood pressure Asutedo was started yesterday, although some results that improving TD may occur within the first 2 weeks maximal results are generally reported after 12 weeks Documentation for date of: 06/12/25 Subjective Subjective Interval history: 25-year-old male with cerebral palsy, asthma, seizure disorder, chronic mastoiditis, recurrent pneumonia, and chronic PEG tube dependence presented with fever and seizure, was admitted for sepsis workup, and later transferred to the ICU on 05/09/2025 where he underwent intubation and eventually underwent tracheostomy due to not being able to take off mechanical ventilator and increased accretions. Patient had a prolonged ICU stay until 05/31/2025 when he was downgraded back to the medical floors that his fever had subsided after medications which could have caused several changes and then were discontinued. Patient in the ICU received multiple full treatments with antibiotics including meropenem and got a bronchoscopy throughout the ICU stay. Once patient was downgraded to the medical floors on 06/01/2025 patient spiked a fever of 101.8 and was more tachycardic. IV fluids were given at this time and Versed pushes were also given for agitation. Hospitalist team then repeated blood cultures and urine cultures as well as sputum cultures. Patient sputum culture on 06/01/2025 did grow Pseudomonas aeruginosa sensitive to Zosyn and his urine did grow ESBL E. coli which was sensitive to Zosyn as well. Patient was also seen on 06/03/2025 by ENT and recommended acetic acid irrigations to the left ear with clotrimazole or VoSol drops twice daily for 10 days and also stated no need for surgical intervention for mastoiditis at this time. Even on recommendations by ENT and after starting fluconazole as well as Zosyn on 06/05/2025 patient still spiking fevers and today his heart was in the 160s and he was very tachypneic. On assessment patient was noted to have increased respiratory rate, was diaphoretic, and seemed in significant discomfort and was agitated. At this time patient was transferred to the ICU for further level care given fever of unclear etiology and increased agitation as well as breathing over the vent. 06/06/25: Patient seen and assessed at bedside. Was informed by family overnight that patient was previously on Seroquel 50 mg every morning as well as 100 mg nightly for agitation prior to admission. Restarted last night. Continued to have fevers (highest at 101.4F), resolved after 4AM. Tachycardia also resolved around the same time. Continues to be afebrile. On physical exam, noted to have bitten off the tip of his tongue, likely in setting of agitation overnight. Held Lovenox in setting of new active bleed. Will start on paralytic cistracurium to relax jaw and Surgicel bleeding site. Will increase Versed for sedation of RASS -4, will not start new sedative to avoid complicating his current condition and possibly inducing serotonin syndrome like previously during this admission. On labs, WBC continues to uptrend and phosphate slowly increasing. Restarted on sevelamer. Ordered bone scan to evaluate osteoblast activity (which may also be contributing to patient's recurrent fevers) and other potential sources of bone infection. Magnesium 1.7, repleted with IV mag sulfate 4g. Patient's family was updated via phone with blood typer present of patient's current condition including tongue laceration. Notified them of current plan of action including need for paralytic at this time, they were agreeable to plan. Continue Zosyn, fluconazole, and clotrimazole ear drops. 06/07/2025: Overnight patient required injections of lidocaine epi injections to control gum bleeding, overnight had ventilator asynchrony and patient's ventilator mode was switched to ACMV with PRVC to improve tidal volume. Chest x-ray obtained this morning shows left base consolidation, consent for bronchoscopy obtained from family. Patient on Nimbex and Versed drip, bronchoscopy revealed large mucous plug left lower lobe, patient switched to volume control after. Weaned off of Nimbex, currently on Versed with RASS goal -4 will down titrate Versed as tolerated. Oral packing which was placed overnight was removed, no signs of active bleeding. Patient will be evaluated by ENT, urology in AM. 06/08/2025: Patient was seen and examined at bedside this morning. Overnight patient did spike fevers with the highest being 101.3. Otherwise has had no further bleeding from mouth. Off Nimbex, still currently on Versed drip. Will start and wean patient down from Versed drip with a RASS of 0 until we are entirely off the Versed drip only using Versed pushes as needed for agitation. Will also increase patient's phenobarbital to twice daily from at bedtime and start clonazepam 0.5 mg BID. Ventilator setting on PS. ENT saw the patient stated no need for further ear drops as no visible drainage appreciated, but did recommend nasal saline gel for moisturizing, but currently unavailable in the hospital after speaking with pharmacy. Urology saw the patient today and did a dorsal slit procedure at bedside after consent was obtained from the patient's father using triage assistant, Armando ID #[id number].. Patient received fentanyl x3 for pain control as well as versed 2mg x2 during the procedure. Again tried to reach out to patient's mother and father using triage assistant, Macario ID [id number], but was unsuccessful as they were unreachable to both phone numbers available. Spoke with patient's mother and provided updates on patient's current condition. Answered all questions and concerns and patient's family was agreeable. Did state today's plan which included MRI L LE to r/o osteomyelitis, ENT specialist to see the patient, decreasing sedation, and that we are waiting for Urology concerning phimosis and need of urine culture repeat. director of physiotherapy services was used, Maritza ID #[id number]. Priorly also used triage assistant Mary ID #[id number], but patient's mother and father did not answer therefore left a message and subsequently got a call back from patient's mother and used triage assistant Maritza ID #[id number]. Patient's mother, brother, and father came by and were updated about the procedure with in hospital triage assistanthumera. Explained that patient may need to go to subacute for further rehab as he is unlikely to be weaned off mechanical ventilator during hospital admission. Also updated them on the patient's fever and that we are weaning off sedation. They stated they were agreeable with treatment plan and if any emergency came up that they would be okay with anything to save his life even if they were notified after any emergent procedure. All their questions were answered. 06/09/2025: No acute events overnight. Patient seen and examined at bedside. Patient was put on pressure support this morning, however patient was observed to be more agitated with increased respiratory rate and heart rate, so pressure support was increased which resolved the patient's distress and decreased patient's respiratory rate. Patient is currently still on Versed drip with plans to wean patient off and transition to Versed pushes as needed. MRI of left lower leg showed severely degraded images due to continuous patient motion. Examination of the patient's lower extremities today show no pain on deep palpation of both his knees and his tibial or fibular regions. Will hold off on pursuing any additional imaging at this time and reevaluate tomorrow. Will continue with tube feeds and monitor the patient for additional oral trauma. Morphine pushes as needed started for pain given dorsal slit procedure yesterday with agitation and withdrawal on palpation of penis. This information was communicated to the patient's father over the phone using certified furnace process plant operator ID [id number]. The patient's mother came in person in the afternoon and was updated in person using certified furnace process plant operator Leanna [id number]. 06/10/2025: No acute events overnight. Patient is completely off sedation, however patient did have a fever of 100.6 yesterday at 1739 and has been afebrile since then. Patient's respiratory status continues to require high levels of pressure support on mechanical ventilation. Patient was noted to be tachycardic this morning and showed signs of repetitive motions in his hands and legs along with periodic grimacing. Given that the patient only showed signs of tachycardia without elevation in blood pressure or respiratory rate, these nonpurposeful movements are highly suspicious for tardive dyskinesia that was suppressed while the patient was on Versed drip. The patient's father and mother [place] [id number], to ask if the patient had ever had any of the symptoms and if he had been taking any medication to help with the symptoms. During this conversation, the patient's father noted that the patient has had abnormal movements for many years since he was a child and the patient had been taking trihexyphenidyl for many years, which seemed to have controlled these abnormal movements. The family did note that the patient was hospitalized about a year ago, and due to concerns of recurrent fevers, the trihexyphenidyl was discontinued and the patient's neurologist started the patient on deutetrabenazine (Austedo). ICU team then reached out to pharmacy to see if these medications could be obtained as they are nonformulary. Pharmacy confirmed that they are nonformulary, but could be ordered for the patient. The patient's father and mother were called back again, this time with registered blood typer Dayana, ID [id number], to discuss sign the patient on deutetrabenazine for the patient's abnormal movements and stopping the patient's Seroquel as it may be contributing to the patient's abnormal movements. It was also discussed how the trihexyphenidyl would not be started as it could worsen the patient's abnormal movements. The patient's family stated that they were concerned about restarting the deutetrabenazine as the patient became more agitated after starting that medication in the past. The patient's family requested to see the patient in person before making further adjustments to his medications. The patient's mother and father came to visit the patient early in the afternoon and in-house registered blood typer Humera was present to help translate. The patient's family explained that the patient's abnormal movements are very reminiscent of his movements at home and were willing to try the tetrabenazine as well as stopping the Seroquel. They did however request that the patient be observed in the ICU for at least 3 more days as the patient has had a history of fevers and increased agitation with starting a new medication. Additionally, the patient's mother and father requested a tour of [facility] subacute care to see if they would like to send the patient to subacute instead of home on discharge. Given patient's stable labs, will transition to lab draws Friday. Also increased the dose of phenobarbital to 130 mg three times daily, increased Versed to 4 mg every hour as needed for agitation, and transitioned from morphine to Dilaudid 0.5 mg every 4 hours. Discussed with pharmacy regarding starting deutetrabenazine versus tetrabenazine. Will order both with deutetrabenazine on hold for now, and start with tetrabenazine first to see if the patient's tardive dyskinesia improves and if he tolerates the medication. If tetrabenazine does not improve the patient's tardive dyskinesia or if side effects are intolerable, then we will swap to the deutetrabenazine to see if that improves his condition. Prescribed deutetrabenazine to the patient so that family members may pick it up and bring it to the ICU tomorrow to start treatment earlier. 06/11/2025: No acute events overnight. Patient was noted to have a fever of 100.6 ?F at around midnight last night. Patient was seen and examined at bedside this morning, noted that the patient appeared to be asleep and did not have any abnormal movements of his extremities or face. Pharmacy was able to expedite the process of obtaining the deutetrabenazine, so the deutetrabenazine was started today. Will monitor the patient for side effects of the deutetrabenazine, which includes diarrhea, dry mouth, fatigue, and increased agitation/restlessness. It is noted that the effects of the tetrabenazine may take several weeks, with the largest improvement occurring within the initial 4 weeks. Additionally, the patient's clonazepam was increased to 4 times daily from 3 times daily as the extra clonazepam overnight did seem to help with the patient's abnormal movements. The patient's family was updated over the phone with the registered blood typer Erica ID [id number]. 06/12/2025: No events overnight, including no fevers. Patient was reported to be very calm per shift production associate RN. Deutetrabenazine (Austedo) which was started on 06/11/2025 is reported to clinically take effect 4 weeks from start defined as lower AIMS (Abnormal Involuntary Movement Scale) score which involves frequency and intensity of dyskinetic movements in 4 categories: facial and oral, extremity, truncal, and global severity. Austedo is unlikely to have taken effect yet, but meanwhile will try to titrate down all sedative medications, therefore hold orders were added for respiratory rate less than 14 on the following medications: phenobarbital 129.6 mg TID, oxycodone 10 mg QID, clonazepam 0.5 QID. Will also downtitrate propranolol (which was initially started on 05/25) from 10 mg to 5 mg TID with goal of weaning off completely in 3 days. Extended Zosyn to 14-day coverage of Pseudomonas pneumonia. Per Dr. Baeza, patient is stable from a respiratory standpoint and able to be downgraded to telemetry while awaiting discharge to subacute. Exam Vital Signs Temp Pulse Resp BP Pulse Ox O2 Del Method O2 Flow Rate 97.8 F 93 20 112/60 100 Mechanical Ventilation 35 06/12/25 08:00 06/12/25 10:00 06/12/25 07:55 06/12/25 10:00 06/12/25 10:00 06/12/25 08:00 06/05/25 16:00 FiO2 30 06/12/25 07:55 Narrative Exam Gen: Alert, random, non-purposeful twisting movement of arms and periodic grimacing of face HEENT: NCAT, EOMI, Pupils reactive KARLO, not icteric. External ears normal. No rhinorrhea. Moist mucous membranes with no visible blood. Neck: Supple, full range of motion, no observable masses, No meningeal sign. Lungs: Coarse breath sounds bilateral, mechanically ventilated. CV: Tachycardic, no murmurs appreciated. Abdomen: Soft, nondistended, No rebound tenderness, PEG tube in place, peristalsis present. MSK: No lower extremity edema, no redness, peripheral pulses presents, Contracted and swollen hands, decreased tone : Penis glan visible and clean dressing around penis s/p dorsal slit procedure. Pain to light palpation of penis. Skin: No, petechiae, lesions, erythematous Neuro: Alert and moving extremities, pupils reactive Objective Labs 06/11/25 04:42 06/11/25 04:42 ABG Interpretation ABG results: 05/09/25 05/09/25 05/09/25 11:56 13:40 18:50 ABG pH 7.40 7.27 L D 7.28 L ABG pCO2 40 43 55 H D ABG pO2 131 H 53 L* D 70 L ABG HCO3 25 20 26 ABG O2 Saturation 99 H 81 L 92 ABG Base Excess 0 -7 L -2 VBG pH VBG pCO2 VBG pO2 VBG Base Excess 05/10/25 05/11/25 05/12/25 00:14 05:06 01:18 ABG pH 7.35 7.33 L 7.39 ABG pCO2 42 D 54 H D 48 ABG pO2 103 D 93 94 ABG HCO3 23 28 H 29 H ABG O2 Saturation 99 H 98 98 ABG Base Excess -3 2 3 VBG pH VBG pCO2 VBG pO2 VBG Base Excess 05/12/25 05/12/25 05/13/25 03:58 11:50 05:10 ABG pH 7.46 H 7.39 7.19 L* D ABG pCO2 41 48 60 H D ABG pO2 105 58 L* D 114 H D ABG HCO3 29 H 29 H 23 ABG O2 Saturation 99 H 90 L 98 ABG Base Excess 5 H 4 H -6 L VBG pH VBG pCO2 VBG pO2 VBG Base Excess 05/17/25 05/18/25 05/19/25 01:30 04:09 04:43 ABG pH 7.38 7.43 7.47 H ABG pCO2 46 44 43 ABG pO2 90 83 80 L ABG HCO3 27 H 29 H 31 H ABG O2 Saturation 98 97 97 ABG Base Excess 2 5 H 7 H VBG pH VBG pCO2 VBG pO2 VBG Base Excess 05/21/25 05/21/25 05/31/25 04:18 06:33 08:06 ABG pH 7.37 D 7.46 H ABG pCO2 50 H 38 D ABG pO2 40 L* D 121 H D ABG HCO3 29 H 27 H ABG O2 Saturation 66 L 100 H ABG Base Excess 3 3 VBG pH 7.55 VBG pCO2 31 L VBG pO2 144 H VBG Base Excess 5 H 06/05/25 06/05/25 06/06/25 13:37 23:46 05:20 ABG pH 7.47 H 7.45 ABG pCO2 35 38 ABG pO2 200 H 54 L* D ABG HCO3 25 26 ABG O2 Saturation 101 H 89 L ABG Base Excess 2 2 VBG pH 7.50 VBG pCO2 34 L VBG pO2 90 H VBG Base Excess 4 H 06/10/25 17:41 ABG pH ABG pCO2 ABG pO2 ABG HCO3 ABG O2 Saturation ABG Base Excess VBG pH 7.40 VBG pCO2 43 VBG pO2 43 VBG Base Excess 2 Quality Measures Quality Measures VTE prophylaxis (SCDs) and sepsis Current suspected stage: ruled out Possible source: pulmonary Blood cultures ordered: yes Antibiotic ordered: Yes Assessment & Plan Assessment Current Active Medications: Generic Name Dose Route Start Last Admin Trade Name Freq PRN Reason Stop Dose Admin Acetaminophen 325 mg 06/09/25 18:19 06/11/25 08:11 Acetaminophen Racquel 325 Mg/10 Ml Udc GT 07/09/25 16:12 325 mg Q4HR PRN Administration pain (1-3) or fever > 100.4 Clonazepam 0.5 mg 06/11/25 12:00 06/12/25 05:48 Clonazepam 0.5 Mg Tablet PO 06/16/25 11:59 0.5 mg QID KYA Administration Deutetrabenazine 6 mg 06/11/25 10:30 06/12/25 08:22 Deutetrabenazine 6 Mg Tablet (Non-Formulary) GT 07/11/25 10:29 6 mg BIDWM KYA Administration Ferrous Sulfate 325 mg 06/01/25 09:00 06/11/25 08:11 Ferrous Sulfate 300 Mg/5 Ml Udc PO 07/01/25 08:59 325 mg QOD KYA Administration Heparin Sodium (Porcine) 5,000 unit 06/08/25 14:00 06/12/25 05:49 Heparin Sod Inj 5000 Unit/Ml Vial SC 06/22/25 13:59 5,000 unit Q8HR KYA Administration Hydromorphone HCl 0.5 mg 06/10/25 06:56 06/11/25 20:46 Hydromorphone Inj 2 Mg/Ml Vial IVP 06/15/25 06:55 0.5 mg Q4HR PRN Administration BREAKTHROUGH PAIN Piperacillin Sod/Tazobactam 100 mls @ 200 mls/hr 06/05/25 14:00 06/12/25 05:47 Sod 4.5 gm/ Sodium Chloride IV 06/12/25 13:59 200 mls/hr Q8HR KYA Administration Protocol Midazolam HCl 100 mg in 100 mls @ 1 mls/hr 06/08/25 17:19 Versed Pf Inj In Ns Premix IV 06/12/25 18:59 .Q24H PRN PER PROTOCOL Protocol 1 MG/HR Lansoprazole 30 mg 05/28/25 09:00 06/12/25 08:21 Lansoprazole 30 Mg Tab.Rap. GT 06/27/25 08:59 30 mg QDAY KYA Administration Levetiracetam 750 mg 05/30/25 09:00 06/12/25 08:21 Levetiracetam Liqd 500 Mg/5 Ml Udc GT 06/29/25 08:59 750 mg BID KYA Administration Midazolam HCl 4 mg 06/10/25 14:43 06/11/25 16:51 Midazolam Inj 1 Mg/Ml Vial 2 Ml IVP 06/12/25 15:58 4 mg Q1HR PRN Administration AGITATION OR ANXIETY Ondansetron HCl 4 mg 05/27/25 14:37 Ondansetron Odt 4 Mg Tabrap GT 06/26/25 14:36 Q6HR PRN NAUSEA OR VOMITING Protocol Oxycodone HCl 10 mg 06/09/25 15:45 06/12/25 05:48 Oxycodone Hcl 5 Mg Ir Tab GT 06/14/25 15:44 10 mg TID KYA Administration Phenobarbital 129.6 mg 06/12/25 09:29 Phenobarbital 32.4 Mg Tablet GT 06/24/25 14:44 TID KYA Polyethylene Glycol 17 gm 05/16/25 09:15 06/08/25 09:36 Polyethylene Glycol 17 Gm Packet PO 06/15/25 09:14 Not Given On Hold: 06/09/25 06:55 QDAY KYA Propranolol HCl 10 mg 06/06/25 06:00 06/12/25 05:48 Propranolol 10 Mg Tablet GT 07/06/25 05:59 10 mg TID KYA Administration Sevelamer Carbonate 0.8 gm 06/11/25 09:00 06/12/25 08:21 Sevelamer Carbonate 0.8 Gm Packet (Non-Formulary) GT 07/11/25 08:59 0.8 gm TIDWM KYA Administration Sodium Chloride 3 ml 05/17/25 11:43 Sodium Chloride Rt Racquel 0.9% 3 Ml Nebu INH 06/16/25 11:42 PRN PRN SOLN Valproic Acid 500 mg 06/10/25 09:00 06/12/25 08:21 Valproic Acid Syrup 250 Mg/5 Ml Udc GT 07/10/25 08:59 500 mg BID KYA Administration Plan 25-year-old male with history of cerebral palsy, asthma, seizure disorder, chronic mastoiditis, recurrent pneumonia, and chronic PEG tube dependence presented on 05/08/2025 with fever and seizure, was admitted for sepsis workup, and later transferred to the ICU on 05/09/25 for increased agitation, tachypnea, and increased secretions with recurrent fevers. Was downgraded on 05/31/25 due to resolution of fever for at least 48 hours however was upgraded back on 06/05/25 due to increased work of breathing, ventilator asynchrony agitation and fever. Neurological #Agitation Differential diagnosis: ICU acquired delirium, opiate withdrawal, delirium Diagnostic workup: - Patient was weaned off of sedation and was downgraded to telemetry, however as sedatives were down titrated and telemetry patient had episode of severe agitation and ventilator asynchrony and was upgraded to ICU for further intervention. - EEG 05/11 unremarkable. Repeat EEG 05/20 showed electrographic seizure activity. Continuous EEG 05/22-05/23: no seizure activity or status epilepticus. Repeat EEG 06/05 negative for seizure activity. - MRI brain 05/23: showed chronic infections, no acute pathology. - Cisatracurium gtt discontinued - Versed gtt discontinued Treatment: - Phenobarbital 129.6 mg three times daily - Clonazepam 0.5 mg four times daily - Oxycodone 10 mg three times daily - Hold orders were added for respiratory rate <14, heart rate <70, or BP <100/60 for the above 3 meds Follow-up: - Use Versed 4 mg pushes every hour as needed #Tardive dyskinesia Diagnostic workup: - Nonpurposeful twisting movements of the patient's upper extremity with recurrent grimaces noted on 06/10 when the patient was taken off sedation - Patient's family notes that the patient has had a long history of nonpurposeful movement and has been previously prescribed deutetrabenazine for management by his neurologist Treatment: - Discontinued home Seroquel 50 mg in the morning and 100 mg at night due to tardive dyskinesia - Deutetrabenazine 6 mg twice daily Follow-up: - Assessment of clinical improvement via AIMS (Abnormal Involuntary Movement Scale) score which involves frequency and intensity of dyskinetic movements in 4 categories: facial and oral, extremity, truncal, and global severity - If deutetrabenazine remains ineffective, will increase to 12 mg twice daily after 1 week of starting the medication, may take up to 4 weeks to see maximal effect - Will consider cessation of deutetrabenazine if patient has uncontrolled side effects of diarrhea, dry mouth, fatigue, or worsening agitation/restlessness after starting deutetrabenazine #Seizure disorder by history #Cerebral palsy by history Diagnostic workup: - Active seizure disorder ruled out, multiple EEGs negative for seizure activity Treatment: - Continue Depakote 250 mg GT every 8 hours and Keppra 750 mg GT twice daily Cardiology #Sinus tachycardia Differential diagnosis: Infection, hypersympathetic activity Diagnostic workup: - Did have positive sputum and urine culture for Pseudomonas and ESBL respectively - Patient's last fever was 06/06/2025 04:36 - Echocardiogram was obtained to rule out any vegetations TTE shows normal systolic function, EF 55 to 60%, diastolic dysfunction grade 1, no evidence of vegetation or endocarditis Treatment: - Downtitrated propranolol 10 mg to 5 mg 3 times daily - Continue antibiotics Follow-up: - Monitor for fever, use ibuprofen as needed for fever episode - Telemetry monitoring - Plan to titrate off propranolol completely in 3 days Pulmonary #Mucus plugs, right upper lung and left lower lung Diagnostic workup: - Chest x-ray obtained 06/07 AM, showed a left lower lobe consolidation, ddx left lower lobe pneumonia versus mucous plug versus left pleural effusion versus mucous plug versus atelectasis lung ultrasound at bedside, effusion ruled out, no hepatization of the lung noted. Consent obtained from family for bronchoscopy. - Bedside bronchoscopy showed left lower lobe mucous plug, suction. Treatment: - Bedside bronchoscopy (06/07/2025) with clearance of mucous plug done successfully Follow-up: - Once weaned off sedation and patient has cough reflex intact and more awake/alert, will consider chest physiotherapy. #Mechanical ventilation #Chronic respiratory failure status post tracheostomy 05/26 Currently on PS Diagnostic workup: -Patient failed extubation during the hospitalization on 05/12, was reintubated overnight 05/13. -Unable to wean patient off ventilator, tracheostomy performed 05/26/2025, sutures removed 06/06/2025 -Patient underwent bronchoscopies 05/14, 05/17 and 06/05 for increased secretions - Currently on PS, will keep PS overnight Treatment: -Monitor SpO2, goal greater than 92 -Continue mechanical ventilation on PS Follow-up: -Continue to down titrate pressure on PS as tolerated until 5 mmHg, then transition to Blow-by if patient tolerates low pressure PS ventilation #Asthma by history Diagnostic workup: - Patient has history of asthma on montelukast, albuterol as needed at home Treatment: - Currently on mechanical ventilation Gastrointestinal #Chronic PEG tube dependence Differential diagnosis: Chronic dysphagia likely in setting of cerebral palsy Diagnostic workup: -Patient was previously on Jevity 1.5, switched to Nepro due to hyperphosphatemia. Treatment: -Resume Nepro trickle feeds, advance as tolerated Follow-up: - Goal tube feeds as tolerated #Transaminitis, resolved #Hypoalbuminemia, resolved Renal/Genitourinary #Elevated alkaline phosphatase, improving #Low PTH #Abnormal nuclear medicine bone scan Differential diagnosis: increased osteoblastic activity in setting of vegetative state, bone infection (particularly of left mastoid), hypoparathyroidism, osteoarthritis Diagnostic workup: - PTH intact low at 3.6, calcium 9.9, vitamin D 25-OH 18.1 - Renal function intact, at baseline - Nuclear medicine bone scan shows minor asymmetric uptake left knee and mild increased uptake mid left tibia - Knee x-ray 06/06 and tibia-fibula x-ray 06/06 showed no findings diagnostic for osseous metastatic disease - MRI left leg 06/08 images severely degraded by continuous patient motion - No pain to palpation of bilateral lower extremities Treatment: - Continue sevelamer 800 mg 3 times daily - Patient to follow up on abnormal imaging outpatient #Phimosis s/p dorsal slit procedure 06/08/2025 #Paraphimosis (resolved) #Balanitis (resolved) Diagnostic workup: - Edema and tenderness of the glans penis, Swelling of the distal retracted foreskin, Constricting band of tissue proximal to the head of the penis at the coronal sulcus on presentation, s/p reduction of the paraphimosis by urologist Dr. Vargas on 05/09. - Patient has somewhat retractable foreskin, has good urine output, no swelling noted, has external catheter draining well - Urologist Dr. Vargas performed dorsal slit procedure on 06/08 Treatment: - Dilaudid 0.5 mg IVP every 4 hours as needed for breakthrough pain Follow-up: - Continue to monitor for worsening swelling, bleeding, or blockage of urine #Hyperkalemia, resolved #VITALIY resolved #Lactic acidosis resolved #Acute kidney injury resolved #Rhabdomyolysis resolved #Hyperphosphatemia, resolved Endocrine No active problems Hematology #Acute nonocclusive thrombus in the left brachial vein Diagnostic workup: - Venous doppler study of upper extremities 05/16: Normal right upper extremity deep venous system. Positive for nonocclusive thrombus in the left brachial vein. - Per chart review and patient's parents, patient does not have history of clots. - Given patient's inability to safely engage and risk of continued trauma to buccal mucosa by biting will not do full dose anticoagulation given increased risk of bleeding Treatment: - Heparin loading dose and ggt. Lovenox to heparin due to heparin?s shorter half-life, which allows for more rapid cessation in the event of bleeding, a shorter half life and can be stopped if bleeding occurs. - Stopped heparin ggt due to hematuria on 05/18. - Restarted Lovenox 05/31 for tx of primary upper extremity deep vein thrombosis, anticoagulation should be continued for a minimum of three months following the initial thrombotic event, but given patient is high risk to buccal mucosa trauma will not pursue therapeutic dose as high risk of bleeding. Transitioned to heparin SC every 8 hours. Follow-up: - Heparin SC every 8 hours for DVT prophylaxis #Normocytic Anemia Differential diagnosis: Anemia of chronic disease, nutritional anemia, iatrogenic Diagnostic workup: -Likely multifactorial, currently not an active concern Treatment: -Monitor CBC, transfuse if hemoglobin less than 7 #Leukocytosis, resolved #Thrombocytopenia, resolved #Thrombocytosis, resolved Infectious Disease #Bilateral chronic mastoiditis #Sinusitis #Bilateral otitis media and otitis externa Diagnostic workup: -White fungal debris and clear drainage noted by statue carver, tympanic membrane not visualized on left ear -Right ear canal with small amount of clear drainage, tympanic membrane generally thickened and opaque -05/08 CT Head: prominent sphenoid ethmoid maxillary antral sinusitis, bilateral chronic mastoiditis, bilateral otitis media. -05/08 CT Orbit Sella Inner: severe bilateral chronic mastoiditis, bilateral otitis externa and otitis media, bilateral cholesteatomas in the attics. Treatment: -Ofloxacin Opt racquel 0.3% 5 drops Both ears bid (05/09-05/18, 05/21-05/31) -Ciprofloxacin Op Racquel 0.3% ear drops (06/02-06/03) -Discontinued Acetic acid irrigations to left ear, clotrimazole drops both ears twice daily for 10 days (06/04-06/08/2025) as per ENT #UTI, ESBL E. coli #Pseudomonas aeruginosa, sputum positive Differential diagnosis: Colonization, active infection Diagnostic workup: Sputum culture 06/05 shows sensitive to Zosyn and intermittent resistance to cefepime Sputum culture 06/01 shows Pseudomonas sensitive to Zosyn and intermittent resistant to cefepime Sputum culture from 05/09 shows Pseudomonas only sensitive to meropenem and tobramycin Sputum culture from 05/20 shows Brittney albicans Sputum culture 05/13,05/19 negative Urine culture 06/01 shows ESBL E. coli sensitive to Zosyn CSF culture 05/26, 05/10 negative ENT specimen 05/12 left ear shows Brittney parapsilosis ENT culture from right ear 05/12 shows ESBL E. coli sensitive to Zosyn, meropenem and ertapenem Blood cultures obtained 05/08, 05/11, 05/16, 06/01, 06/05 negative, bronchial washing 05/14 for fungal cultures pending Treatment: - Currently on IV Zosyn 06/05- planned until 06/18 for 14-day course coverage of Pseudomonas IV Zosyn 3.375g x1 (at 05/08) IV Ceftriaxone 1g x1 (at 05/08) IV Acyclovir 640mg q8hr (05/08-05/11) IV Ceftriaxone 2g q12hr (05/08-05/11) IV Vancomycin qd (05/08-05/11) since MRSA screen is negative IV Meropenem 1000mg q8hr (05/12-05/22, 05/24-05/25) IV Doxycycline (05/16-05/18) IV Micafungin 100mg qd (05/28-05/30, 06/01-06/03) IV fluconazole 06/05-06/07 Follow-up: - Continue to monitor for fever Integumentary #Tongue Laceration, traumatic #Gingivial Bleeding, Oral Trauma Diagnostic workup: -Known to have episodes of jaw spasms and teeth clenching with agitation. Had significant trauma to gums and tongue due to clenching of teeth 06/06 - No further bleeding appreciated in oral mucosa Treatment: - Patient required cisatracurium to relax jaw, pressure was applied locally, oral packing none, injections of lido?epinephrine x 3 to gums on 06/06 night Follow-up: - Monitor for bleeding Health Maintenance: Feeding/fluids: Currently on trickle feeds with Nepro, free water fluid Analgesia: Oxycodone via G-tube, Morphine IVP PRN Sedation: Phenobarbital BID, Clonazepam TID, Versed PRN Thromboprophylaxis: SCDs, heparin SC Head up position: Head of bed elevated Ulcer prophylaxis: Lansoprazole Glycemic control: AM blood glucose within normal limits Spontaneous breathing trial: Chronically trached on mechanical ventilation Bowel care: On MiraLAX daily Indwelling catheter removal: No chronic Osborne/lines De-escalation of antibiotics: Will continue with Zosyn, history of multi drug- resistant organisms Code status: Full code Patient plan of care was discussed with the attending counter clerk, Dr. Baeza. Christy Cheema, PGY-3
[2025-06-12] MEDS: HYDROmorphone INJ 2 MG/ML VIAL 0.5 MG IVP ×3 (12:48→23:06)
[2025-06-12] MEDS: PROPRANOLOL 10 MG TABLET 5 MG GT ×2 (13:34→21:17)
--- NOTE | 2025-06-12 15:28 | ESPR_ITS ---
<Statement entered by Robert Cross MD - 06/12/25 16:07> Patient was seen and examined at bedside. I agree on the assessment and plan on this note as documented by resident Dr Christy Molina MD PGY1. 24-year-old male with past medical history as below has had a prolonged hospital course for 35 days, patient was initially downgraded to medical floors and was upgraded again due to significant agitation during this ICU stay patient was diagnosed with tardive dyskinesia, started on deutetrabenazine. Patient currently on pressure support 12, on phenobarbital 129.6 mg 3 times daily, clonazepam 0.5 mg 4 times daily and oxycodone 10 mg 3 times daily with hold orders for ICU. Patient remains on Zosyn till 06/18 for coverage of Pseudomonas, will continue. ICU recommends titrating propranolol off in 3 days, was decreased to 5 mg 3 times daily earlier this morning. Patient has not had any bleeding from the tongue laceration. Patient on goal tube feeds, stable. Downgraded to medical floor. Case discussed with attending Dr. Neva Rashid DO Robert Cross MD PGY-2 Documentation for date of: 06/12/25 Subjective Subjective Interval history: 24-year-old male with a past medical history significant for cerebral palsy, asthma, seizure disorder, chronic mastoiditis (previously treated with tympanostomy tube placement for recurrent otitis media, now removed), recurrent pneumonia, and chronic PEG tube dependence, presented to the ED on 05/08/2025 with a fever lasting over 24 hours. The patient also had a witnessed seizure episode lasting 5-10 seconds, characterized by tonic-clonic activity confined to the left side of the body. Meningitis was ruled out in ED. 05/09. In the ICU, the patient was intubated due to inability to protect airway. Urology, Dr. Vargas, performed a reduction of the paraphimosis. Sputum culture grew thurman resistant Pseudomonas. Patient experienced intermittent spasmodic jerking episodes, lasting about 15-20 minutes at a time. During these episodes, the patient became tachycardic and febrile. Heparin drip for right upper extremity DVT. Multiple EEGs normal. Patient failed extubation due to inability to protect airway. Patient had a tracheostomy on 05/26, well tolerated. Patient placed on pressure support, stable. Recommend weaning down to blow by. During the hospital course, Empiric broad-spectrum antibiotic and antiviral therapy of ceftriaxone, vancomycin, ampicillin, and acyclovir for possible meningitis, Meropenem for thurman resistant Pseudomonas pneumonia, micafungin for Brittney parapsilosis, doxycycline for gram-positive cocci coverage causing persistent fever. Treatment completed. Patient has been downgraded from ICU to tele on 05/31/2025; however, re-upgraded to ICU on 06/05 due to tachycardia in 160s, tachypnea, persistent fever, and ventilator asynchrony. In ICU, Seroquel 50 mg morning and 100 mg at night were restarted for agitation. Dorsal slit procedure was done for phimosis. Patient had an episode of biting his tongue causing bleeding in the setting of Lovenox, requiring lidocaine epi injection to control the bleeding. ENT consulted, no visible drainage from ear at this time. Patient was suspected to have tardive dyskinesia that was reported per patient's father as abnormal movements for many years which he was taking trihexyphenidyl. Austedo was started. Patient was also started on clonazepam drip for abnormal movements. Plan to titrate down all sedative medications with goal of respiratory rate less than 14: Phenobarbital 129.6 mg 3 times daily, oxycodone 10 mg 4 times daily, clonazepam 0.5 mg 4 times daily. Plan to down titrate propranolol (05/25 - current) 10 mg to 5 mg 3 times daily to goal of weaning off completely in 3 days. Currently on Zosyn for 14 days coverage of Pseudomonas pneumonia. Exam Vital Signs Temp Pulse Resp BP Pulse Ox O2 Del Method O2 Flow Rate 98.1 F 112 H 20 132/73 H 100 Mechanical Ventilation 35 06/12/25 12:00 06/12/25 14:00 06/12/25 07:55 06/12/25 14:00 06/12/25 14:00 06/12/25 12:00 06/05/25 16:00 FiO2 30 06/12/25 13:58 Narrative Exam General: Trach and PEG tube in place. AAOx0, Non-verbal at baseline. Eyes sluggish. Intermittent grimace Eye: Normal conjunctiva, no scleral icterus Neck: Supple, non-tender, no JVD, no lymphadenopathy Lungs: Coarse breath sounds, symmetric chest rise, No wheezing, rhonchi, crackles Heart: Peripheral pulses intact bilaterally, Tachycardic Abdomen: Soft, non-tender, non-distended, no palpable masses Musculoskeletal: No cyanosis, No visible joint swelling, +1 Bilaterally upper extremities edema Skin: Skin is warm, dry, no rashes or lesions. Neuro: Cranial nerves II-XII grossly intact. Objective Labs 06/11/25 04:42 06/11/25 04:42 ABG Interpretation ABG results: 05/09/25 05/09/25 05/09/25 11:56 13:40 18:50 ABG pH 7.40 7.27 L D 7.28 L ABG pCO2 40 43 55 H D ABG pO2 131 H 53 L* D 70 L ABG HCO3 25 20 26 ABG O2 Saturation 99 H 81 L 92 ABG Base Excess 0 -7 L -2 VBG pH VBG pCO2 VBG pO2 VBG Base Excess 05/10/25 05/11/25 05/12/25 00:14 05:06 01:18 ABG pH 7.35 7.33 L 7.39 ABG pCO2 42 D 54 H D 48 ABG pO2 103 D 93 94 ABG HCO3 23 28 H 29 H ABG O2 Saturation 99 H 98 98 ABG Base Excess -3 2 3 VBG pH VBG pCO2 VBG pO2 VBG Base Excess 05/12/25 05/12/25 05/13/25 03:58 11:50 05:10 ABG pH 7.46 H 7.39 7.19 L* D ABG pCO2 41 48 60 H D ABG pO2 105 58 L* D 114 H D ABG HCO3 29 H 29 H 23 ABG O2 Saturation 99 H 90 L 98 ABG Base Excess 5 H 4 H -6 L VBG pH VBG pCO2 VBG pO2 VBG Base Excess 05/17/25 05/18/25 05/19/25 01:30 04:09 04:43 ABG pH 7.38 7.43 7.47 H ABG pCO2 46 44 43 ABG pO2 90 83 80 L ABG HCO3 27 H 29 H 31 H ABG O2 Saturation 98 97 97 ABG Base Excess 2 5 H 7 H VBG pH VBG pCO2 VBG pO2 VBG Base Excess 05/21/25 05/21/25 05/31/25 04:18 06:33 08:06 ABG pH 7.37 D 7.46 H ABG pCO2 50 H 38 D ABG pO2 40 L* D 121 H D ABG HCO3 29 H 27 H ABG O2 Saturation 66 L 100 H ABG Base Excess 3 3 VBG pH 7.55 VBG pCO2 31 L VBG pO2 144 H VBG Base Excess 5 H 06/05/25 06/05/25 06/06/25 13:37 23:46 05:20 ABG pH 7.47 H 7.45 ABG pCO2 35 38 ABG pO2 200 H 54 L* D ABG HCO3 25 26 ABG O2 Saturation 101 H 89 L ABG Base Excess 2 2 VBG pH 7.50 VBG pCO2 34 L VBG pO2 90 H VBG Base Excess 4 H 06/10/25 17:41 ABG pH ABG pCO2 ABG pO2 ABG HCO3 ABG O2 Saturation ABG Base Excess VBG pH 7.40 VBG pCO2 43 VBG pO2 43 VBG Base Excess 2 Quality Measures Quality Measures VTE prophylaxis (SCDs) and sepsis Current suspected stage: ruled out Possible source: pulmonary Blood cultures ordered: yes Antibiotic ordered: Yes Assessment & Plan Assessment Current Active Medications: Generic Name Dose Route Start Last Admin Trade Name Freq PRN Reason Stop Dose Admin Acetaminophen 325 mg 06/09/25 18:19 06/11/25 08:11 Acetaminophen Racquel 325 Mg/10 Ml Udc GT 07/09/25 16:12 325 mg Q4HR PRN Administration pain (1-3) or fever > 100.4 Clonazepam 0.5 mg 06/12/25 11:47 06/12/25 12:23 Clonazepam 0.5 Mg Tablet PO 06/16/25 11:59 0.5 mg QID KYA Administration Deutetrabenazine 6 mg 06/11/25 10:30 06/12/25 08:22 Deutetrabenazine 6 Mg Tablet (Non-Formulary) GT 07/11/25 10:29 6 mg BIDWM KYA Administration Ferrous Sulfate 325 mg 06/01/25 09:00 06/11/25 08:11 Ferrous Sulfate 300 Mg/5 Ml Udc PO 07/01/25 08:59 325 mg QOD KYA Administration Heparin Sodium (Porcine) 5,000 unit 06/08/25 14:00 06/12/25 13:35 Heparin Sod Inj 5000 Unit/Ml Vial SC 06/22/25 13:59 5,000 unit Q8HR KYA Administration Hydromorphone HCl 0.5 mg 06/10/25 06:56 06/12/25 12:48 Hydromorphone Inj 2 Mg/Ml Vial IVP 06/15/25 06:55 0.5 mg Q4HR PRN Administration BREAKTHROUGH PAIN Piperacillin Sod/Tazobactam 100 mls @ 200 mls/hr 06/05/25 14:00 06/12/25 13:34 Sod 4.5 gm/ Sodium Chloride IV 06/18/25 13:59 200 mls/hr Q8HR KYA Administration Protocol Lansoprazole 30 mg 05/28/25 09:00 06/12/25 08:21 Lansoprazole 30 Mg Tab.Rap. GT 06/27/25 08:59 30 mg QDAY KYA Administration Levetiracetam 750 mg 05/30/25 09:00 06/12/25 08:21 Levetiracetam Liqd 500 Mg/5 Ml Udc GT 06/29/25 08:59 750 mg BID KYA Administration Midazolam HCl 4 mg 06/10/25 14:43 06/11/25 16:51 Midazolam Inj 1 Mg/Ml Vial 2 Ml IVP 06/12/25 15:58 4 mg Q1HR PRN Administration AGITATION OR ANXIETY Ondansetron HCl 4 mg 05/27/25 14:37 Ondansetron Odt 4 Mg Tabrap GT 06/26/25 14:36 Q6HR PRN NAUSEA OR VOMITING Protocol Oxycodone HCl 10 mg 06/12/25 11:47 06/12/25 13:35 Oxycodone Hcl 5 Mg Ir Tab GT 06/14/25 15:44 10 mg TID KYA Administration Phenobarbital 129.6 mg 06/12/25 11:47 06/12/25 13:34 Phenobarbital 32.4 Mg Tablet GT 06/24/25 14:44 129.6 mg TID KYA Administration Polyethylene Glycol 17 gm 05/16/25 09:15 06/08/25 09:36 Polyethylene Glycol 17 Gm Packet PO 06/15/25 09:14 Not Given QDAY KYA Propranolol HCl 5 mg 06/12/25 14:00 06/12/25 13:34 Propranolol 10 Mg Tablet GT 07/12/25 13:59 5 mg TID KYA Administration Sevelamer Carbonate 0.8 gm 06/11/25 09:00 06/12/25 12:23 Sevelamer Carbonate 0.8 Gm Packet (Non-Formulary) GT 07/11/25 08:59 0.8 gm TIDWM KYA Administration Sodium Chloride 3 ml 05/17/25 11:43 Sodium Chloride Rt Racquel 0.9% 3 Ml Nebu INH 06/16/25 11:42 PRN PRN SOLN Valproic Acid 500 mg 06/10/25 09:00 06/12/25 08:21 Valproic Acid Syrup 250 Mg/5 Ml Udc GT 07/10/25 08:59 500 mg BID KYA Administration Plan 24-year-old male with cerebral palsy, asthma, seizure disorder, chronic mastoiditis, recurrent pneumonia, and chronic PEG tube dependence presented with fever and seizure, was admitted for sepsis workup, and later transferred to the ICU for intubation due to concerns about airway protection. Patient has been downgraded from ICU to tele on 05/31/2025; however, re-upgraded to ICU on 06/05 due to tachycardia in 160s, tachypnea, persistent fever, and ventilator asynchrony. #Tardive dyskinesia Diagnostic workup: - Nonpurposeful twisting movements of the patient's upper extremity with recurrent grimaces noted on 06/10 when the patient was taken off sedation - Patient's family notes that the patient has had a long history of nonpurposeful movement and has been previously prescribed deutetrabenazine for management by his neurologist Treatment: - Discontinued home Seroquel 50 mg in the morning and 100 mg at night due to tardive dyskinesia - Deutetrabenazine 6 mg twice daily Follow-up: - Assessment of clinical improvement via AIMS (Abnormal Involuntary Movement Scale) score which involves frequency and intensity of dyskinetic movements in 4 categories: facial and oral, extremity, truncal, and global severity - If deutetrabenazine remains ineffective, will increase to 12 mg twice daily after 1 week of starting the medication, may take up to 4 weeks to see maximal effect - Will consider cessation of deutetrabenazine if patient has uncontrolled side effects of diarrhea, dry mouth, fatigue, or worsening agitation/restlessness after starting deutetrabenazine #Sepsis #Bilateral chronic mastoiditis #Sinusitis #Bilateral otitis media #Bilateral otitis externa #Brittney parapsilosis #Community Acquired Pneumonia #UTI, E.coli, ESBL -DDx: meningitis vs acute on chronic mastoiditis vs acute febrile illness. ? -History of chronic mastoiditis. -Met SIRS criteria on admission: T 105F, HR 176, RR 26, PaCO2 26, WBC 16.3. -Head CT (05/08/2025): prominent sphenoid ethmoid maxillary antral sinusitis, bilateral chronic mastoiditis, bilateral otitis media. -CT Orbit Sella Inner (05/08/2025): severe bilateral chronic mastoiditis, bilateral otitis externa and otitis media, bilateral cholesteatomas in the attics. -CXR (05/09/2025): Bilateral Perihilar Pneumonia. CXR (05/13/2025): Extensive Bilateral Pneumonia, CXR(05/19/2025): Significant bilateral Pneumonia -CT Chest/abd/pelvis (05/16/2025): Extensive bilateral pneumonia, Cystitis pattern, Cholelithiasis -A repeat Cocci serology test was negative -Lumbar puncture(05/10/2025): clear, WBC 3, glucose 70, total protein 25. CSF testing negative. -Respiratory viral panel (05/10/2025): rhinovirus/enterovirus and human metapneumovirus detected. -UA 05/08 and 05/16 negative. [Culture Hx] -1st Blood Cx (05/08): No growth for 5 days. 2nd Blood Cx (05/11): No growth for 5 days, 3rd Blood Cx (05/16): No growth for 5 days, 4th Blood Cx (06/01): No growth for 48hrs -1st Sputum Cx (05/09): Pseudomonas aeruginosa (only sensitive to Meropenem, Tobramycin). 2nd Sputum Cx (05/13): Mixed oral hamilton. 3rd Sputum Cx (05/19): Mixed oral hamilton, 4th Sputum Cx (05/20): Brittney albicans, 5th Sputum Cx (06/01): GNR -CSF Cx (05/10): No growth for 3 days -Left Ear Cx (05/12): Brittney parapsilosis -Right Ear Cx(05/12): E.coli, ESBL (only sensitive to Ertapenem, Meropenem, Zosyn) -Urine Cx (06/01): E.coli, ESBL (only sensitive to Ertapenem, Meropenem, Nitrofurantoin, Zosyn) -Sputum culture 06/05 shows sensitive to Zosyn and intermittent resistance to cefepime [Antibiotics/Antifungal Hx] IV Zosyn 3.375g x1 (at 05/08) IV Ceftriaxone 1g x1 (at 05/08) IV Acyclovir 640mg q8hr (05/08-05/11) since LP negative. IV Ceftriaxone 2g q12hr (05/08-05/11) IV Vancomycin qd (05/08-05/11) since MRSA screen is negative Ofloxacin Opt racquel 0.3% 5 drops Both ears bid (05/09-05/18, 05/21-05/31) IV Meropenem 1000mg q8hr (05/12-05/22, 05/24-05/25) IV Doxycycline (05/16-05/18) IV Micafungin 100mg qd (05/28-05/30, 06/01-06/03) Ciprofloxacin Op Racquel 0.3% ear drops (06/02-06/03) -CXR is showing pneumonia, but CXR often remain abnormal for days to weeks. The infiltrate or consolidation can persist even though the infection has cleared. The radiographic improvement can take up to 4-6 weeks.? Patient is on minimal ventilator setting, oxygen requirement is stable, and has completed antibiotics course. -UTI unlikely sources of infection given low number of colonies and long antibiotics treatment in ICU. -Per ENT, Dr. Ojeda, patient does not have acute coalescent mastoiditis in either ear. Left and right middle ear is also not filled with effusion. Plan: - Currently on IV Zosyn 06/05- planned until 06/18 for 14-day course coverage of Pseudomonas IV Zosyn 3.375g x1 (at 05/08) IV Ceftriaxone 1g x1 (at 05/08) IV Acyclovir 640mg q8hr (05/08-05/11) IV Ceftriaxone 2g q12hr (05/08-05/11) IV Vancomycin qd (05/08-05/11) since MRSA screen is negative IV Meropenem 1000mg q8hr (05/12-05/22, 05/24-05/25) IV Doxycycline (05/16-05/18) IV Micafungin 100mg qd (05/28-05/30, 06/01-06/03) IV fluconazole 06/05-06/07 Follow-up: - Continue to monitor for fever #Agitated delirium #Serotonin Syndrome? -Patient was extremely agitated before ICU admission, likely due to pain from paraphimosis. -Patient initially sedated with propofol and fentanyl, titrated to Precedex with Benadryl before extubation. -Patient failed extubation and was intubated on 05/12. Propofol and fentanyl was restarted. -Still spiking fevers and tachycardic, possible serotonin syndrome -EEG did not show seizure activity per neurology. -MRI brain 05/23: showed chronic infections, no acute pathology. -Off Versed drip -Currently tapering down phenobarbital. Changed q12hr to HS Plan: Treatment: - Phenobarbital 129.6 mg three times daily - Clonazepam 0.5 mg four times daily - Oxycodone 10 mg three times daily - Hold orders were added for respiratory rate <14, heart rate <70, or BP <100/60 for the above 3 meds Follow-up: - Use Versed 4 mg pushes every hour as needed #Phimosis s/p dorsal slit procedure 06/08/2025 #Paraphimosis (resolved) #Balanitis (resolved) Diagnostic workup: - Edema and tenderness of the glans penis, Swelling of the distal retracted foreskin, Constricting band of tissue proximal to the head of the penis at the coronal sulcus on presentation, s/p reduction of the paraphimosis by urologist Dr. Vargas on 05/09. - Patient has somewhat retractable foreskin, has good urine output, no swelling noted, has external catheter draining well - Urologist Dr. Vargas performed dorsal slit procedure on 06/08 Treatment: - Dilaudid 0.5 mg IVP every 4 hours as needed for breakthrough pain Follow-up: - Continue to monitor for worsening swelling, bleeding, or blockage of urine #Seizure disorder by history #Cerebral palsy by history Diagnostic workup: - Active seizure disorder ruled out, multiple EEGs negative for seizure activity Treatment: - Continue Depakote 250 mg GT every 8 hours and Keppra 750 mg GT twice daily #Sinus tachycardia Differential diagnosis: Infection, hypersympathetic activity Diagnostic workup: - Did have positive sputum and urine culture for Pseudomonas and ESBL respectively - Patient's last fever was 06/06/2025 04:36 - Echocardiogram was obtained to rule out any vegetations TTE shows normal systolic function, EF 55 to 60%, diastolic dysfunction grade 1, no evidence of vegetation or endocarditis Treatment: - Downtitrated propranolol 10 mg to 5 mg 3 times daily - Continue antibiotics Follow-up: - Monitor for fever, use ibuprofen as needed for fever episode - Telemetry monitoring - Plan to titrate off propranolol completely in 3 days #Elevated alkaline phosphatase, improving #Low PTH #Abnormal nuclear medicine bone scan Differential diagnosis: increased osteoblastic activity in setting of vegetative state, bone infection (particularly of left mastoid), hypoparathyroidism, osteoarthritis Diagnostic workup: - PTH intact low at 3.6, calcium 9.9, vitamin D 25-OH 18.1 - Renal function intact, at baseline - Nuclear medicine bone scan shows minor asymmetric uptake left knee and mild increased uptake mid left tibia - Knee x-ray 06/06 and tibia-fibula x-ray 06/06 showed no findings diagnostic for osseous metastatic disease - MRI left leg 06/08 images severely degraded by continuous patient motion - No pain to palpation of bilateral lower extremities Treatment: - Continue sevelamer 800 mg 3 times daily - Patient to follow up on abnormal imaging outpatient #Tongue Laceration, traumatic #Gingivial Bleeding, Oral Trauma Diagnostic workup: -Known to have episodes of jaw spasms and teeth clenching with agitation. Had significant trauma to gums and tongue due to clenching of teeth 06/06 - No further bleeding appreciated in oral mucosa Treatment: - Patient required cisatracurium to relax jaw, pressure was applied locally, oral packing none, injections of lido?epinephrine x 3 to gums on 06/06 night Follow-up: - Monitor for bleeding #Bronchospasm #History of asthma -Magnesium for bronchodilator effect as needed. -Albuterol and Ipratropium as needed. #Failed extubation 05/12 #Acute hypoxic respiratory failure s/p tracheostomy #Ventilator dependent -Patient underwent tracheostomy on 05/26/2025 -Chest physiotherapy daily #Chronic PEG tube dependence -Nepro 1.8 Christ 1L RTH -Pro Stat Sugar Free 30 ml #Hyperphosphatemia -Sevelamer 1g GT 3 times daily, adjust if needed. #Normocytic Anemia #Leukocytosis-Resolving #Maculopapular rash to the buttocks-Resolving #Acute urinary retention-Resolved #Hypoalbuminemia-Resolved #Hyperkalemia-Resolved #Acute kidney injury-Resolved #Anion Gap Metabolic Acidosis-Resolved Disposition: Tele Diet: Nepro 1.8 Christ 1L RTH and Pro Stat Sugar Free 30 ml GI prophylaxis: Lansoprazole 30mg GT qd DVT prophylaxis: SCDs,[id number] SC BID due to bleeding Code: FULL Assessment and plan discussed with my attending physician Dr. Rashid and Dr. Cross (PGY-2) Dr. Molina (PGY-1) - vice president of talent acquisition Attending Provider Attestation/Addendum Neva Banuelos DO, attest that I was physically present for the luke portions of the service and evaluated the patient with the resident and I reviewed and discussed the case with the resident and agree with the resident's findings and plans of care as documented above Pt is a 25-year-old male with past medical history of cerebral palsy, asthma, seizure disorder, chronic mastoiditis, chronic ear infections, recurrent pneumonia and chronic PEG tube dependence who was admitted to the hospital due to fever and seizures on 05/08/25. Patient had been very agitated on admission requiring several agents for sedation, which was also complicated with increased need for oxygen supplementation. Patient subsequently required intubation due to acute hypoxic respiratory failure and airway protection. Hospital course has been complicated by difficulty weaning off sedation and ventilator. Patient subsequently underwent tracheostomy placement on 05/26/2025. Patient also developed DVT during this hospital course, but was unable to tolerate anticoagulation due to bleeding from his mouth as well as hematuria. He continues to require several agents for his agitation. However, he has been started on austedo due to concern for severe tardive dyskinesia. Seroquel has since been discontinued. Patient has been on several antibiotic regimens and recently completed antifungal treatment. He also completed 10d course of clotrimazole ear drops for his b/l otitis media and externa. Patient has been afebrile and has since been downgraded from ICU. Will continue with current regimen of sedation and will consider weaning if patient becomes more stable. He remains on IV zosyn for extended course to treat recurrent pneumonia. Will continue to monitor for any signs of bleeding before reconsidering starting anticoagulation. Patient is able open eyes to voice and tactile stimulation. His b/l UE have 1+ pitting edema. Scattered rhonchi noted in b/l lung thompson. He remains on pressure support on vent with Fio2 of 30% and PEEP of 8.
--- NOTE | 2025-06-12 16:43 | EVENTNT_ITS ---
<Statement entered by Jeanine Baeza MD - 07/07/25 10:30> TOTAL TIME: 45MINUTES ON DIRECT MEDICAL CARE, MANAGEMENT - COORDINATION AND COUNSELING > 50% OF TOTAL TIME I saw and evaluated the patient. I reviewed the resident?s note and agree with findings and plan as documented in the resident?s note. Documentation for date of: 06/12/25 Event Note Event Note: Spoke patient's father David Baltazar over phone today with translation provided by rn mental health Ian (ID [id number]) around 2PM today. Updated father that given patient's stable condition on pressure support, significant improvement in agitation, and lack of fever for the past 24 hours, he will be downgraded to telemetry for further care while pending discharge to subacute facility. Father was agreeable to downgrade as long as clear instructions were provided for his son's care. Hospitalist team is aware of specific instructions for oral care and management of agitation. Assured family that ICU team will continue to monitor patient care peripherally. Patient plan of care was discussed with the attending physician, Dr. Felisha Cobb DO, PGY-1
[2025-06-12] MEDS: MIDAZOLAM INJ 1 MG/ML VIAL 2 ML 4 MG IVP (17:28)
--- NOTE | 2025-06-12 23:51 | VVPN_ITS ---
Telemedicine visit statement This visit was conducted with the use of phone was obtained on 06/12/25 at 2351. Documentation for date of: 06/12/25 Subjective Subjective Interval history: Patient is in ICU, continue to remain trached and on [facility] ventilatory support. No major fever spikes last 24 hours. Intermittent restlessness and agitation, better with the Dilaudid Austedo. Virtual exam Vital Signs Temp Pulse Resp BP Pulse Ox O2 Del Method O2 Flow Rate 98.0 F 112 H 15 114/66 99 Trach Collar 35 06/12/25 20:00 06/12/25 21:17 06/12/25 20:00 06/12/25 21:17 06/12/25 19:06 06/12/25 20:00 06/05/25 16:00 FiO2 30 06/12/25 20:00 Objective Labs 06/11/25 04:42 06/11/25 04:42 ABG Interpretation ABG results: 05/09/25 05/09/25 05/09/25 11:56 13:40 18:50 ABG pH 7.40 7.27 L D 7.28 L ABG pCO2 40 43 55 H D ABG pO2 131 H 53 L* D 70 L ABG HCO3 25 20 26 ABG O2 Saturation 99 H 81 L 92 ABG Base Excess 0 -7 L -2 VBG pH VBG pCO2 VBG pO2 VBG Base Excess 05/10/25 05/11/25 05/12/25 00:14 05:06 01:18 ABG pH 7.35 7.33 L 7.39 ABG pCO2 42 D 54 H D 48 ABG pO2 103 D 93 94 ABG HCO3 23 28 H 29 H ABG O2 Saturation 99 H 98 98 ABG Base Excess -3 2 3 VBG pH VBG pCO2 VBG pO2 VBG Base Excess 05/12/25 05/12/25 05/13/25 03:58 11:50 05:10 ABG pH 7.46 H 7.39 7.19 L* D ABG pCO2 41 48 60 H D ABG pO2 105 58 L* D 114 H D ABG HCO3 29 H 29 H 23 ABG O2 Saturation 99 H 90 L 98 ABG Base Excess 5 H 4 H -6 L VBG pH VBG pCO2 VBG pO2 VBG Base Excess 05/17/25 05/18/25 05/19/25 01:30 04:09 04:43 ABG pH 7.38 7.43 7.47 H ABG pCO2 46 44 43 ABG pO2 90 83 80 L ABG HCO3 27 H 29 H 31 H ABG O2 Saturation 98 97 97 ABG Base Excess 2 5 H 7 H VBG pH VBG pCO2 VBG pO2 VBG Base Excess 05/21/25 05/21/25 05/31/25 04:18 06:33 08:06 ABG pH 7.37 D 7.46 H ABG pCO2 50 H 38 D ABG pO2 40 L* D 121 H D ABG HCO3 29 H 27 H ABG O2 Saturation 66 L 100 H ABG Base Excess 3 3 VBG pH 7.55 VBG pCO2 31 L VBG pO2 144 H VBG Base Excess 5 H 06/05/25 06/05/25 06/06/25 13:37 23:46 05:20 ABG pH 7.47 H 7.45 ABG pCO2 35 38 ABG pO2 200 H 54 L* D ABG HCO3 25 26 ABG O2 Saturation 101 H 89 L ABG Base Excess 2 2 VBG pH 7.50 VBG pCO2 34 L VBG pO2 90 H VBG Base Excess 4 H 06/10/25 17:41 ABG pH ABG pCO2 ABG pO2 ABG HCO3 ABG O2 Saturation ABG Base Excess VBG pH 7.40 VBG pCO2 43 VBG pO2 43 VBG Base Excess 2 Assessment & Plan Assessment David Baltazar is 24 yr male with PMH of chronic mastoiditis (previously had tympanostomy tube placed for recurrent otitis media, now removed), seizure disorder, recurrent pneumonia, cerebral palsy, chronic PEG tube, and asthma who was brought into ED on 05/08/25 for ongoing fever of over 24 hours and reported episode of witnessed seizure by ED. Patient was treated for sepsis.Neurology was consulted. Cerebral palsy Chronic pansinusitis Tonic clonic seizure Otitis Interna, severe - CSF analysis x2 : unremarkable. - Meningitis - ruled out - MRI brain: chronic pansinusitis. - ENT evaluation completed, appreciate input Recommendations: - Keep seizure precautions in place -Consider going down on phenobarbital as the restlessness resolves. - On Keppra 800mg BID + Depakote 250mg TID + Quetiapine 100mg HS + PRN Clonazepam 0.5mg TID - Continue with Austedo (Deutetrabenazine) 6mg BID for tardive dyskinesia. Anticipate improvement with Austedo. He is downgraded to telemetry. Primary care team to manage other medical conditions and ongoing care needed.
[2025-06-13] VITALS (28 sets, daily range): BP systolic 109–179; BP diastolic 58–108; PULSE 94–153; RESP 16–49; TEMP 36.3–38.5; O2SAT 98–100; BMI 27.6
[2025-06-13] MEDS: HYDROmorphone INJ 2 MG/ML VIAL 0.5 MG IVP ×2 (05:25→21:57)
[2025-06-13] MEDS: PIPER/TAZO INJ 4.5 GM in SODIUM CHLORIDE 0.9% (POP) 100 ML IV ×3 (05:27→22:37)
[2025-06-13] MEDS: PROPRANOLOL 10 MG TABLET 5 MG GT ×3 (05:29→22:28)
[2025-06-13] MEDS: HEPARIN SOD INJ 5000 UNIT/ML VIAL SC ×3 (05:30→22:37)
[2025-06-13] MEDS: oxyCODONE HCL 5 MG IR TAB 10 MG GT ×3 (05:30→22:35)
[2025-06-13] MEDS: ACETAMINOPHEN SOL 325 MG/10 ML UDC GT ×2 (05:47→21:04)
[2025-06-13 06:03] LABS: Alanine Aminotransferase 40 U/L (10-49); Albumin, Serum 4.0 gm/dL (3.5-5.0); Albumin/Globulin Ratio 1.7 (1.2-2.2); Alkaline Phosphatase 147 U/L (46-116); Anion Gap 14 (7-16); Aspartate Amino Transferase 43 U/L (0-34); BUN/Creatinine Ratio 20 Ratio (12-20); Bilirubin,Total 0.2 mg/dL (0.3-1.2); Blood Urea Nitrogen 12 mg/dL (9-23); Calcium 9.8 mg/dL (8.3-10.6); Calcium (Corrected) 9.8 mg/dL (8.5-10.1); Carbon Dioxide 26.4 mMol/L (20.0-31.0); Chloride 101 mMol/L (98-107); Creatinine (Component) 0.6 mg/dL (0.6-1.3); Estimated Creatinine Clearance 144.2 mL/min (>60); Globulin 2.3 gm/dL (2.3-3.5); Glucose 98 mg/dL (74-106); Magnesium 1.7 mg/dL (1.6-2.6); Osmolality,Calculated 280 (275-295); Phosphorous 4.4 mg/dL (2.4-5.1); Potassium 3.9 mMol/L (3.4-5.1); Sodium 141 mMol/L (136-145); Total Protein 6.3 gm/dL (5.7-8.2); eGFR > 60 See Note
[2025-06-13 07:00] LABS: Basophils # (Auto) 0.1 Thou/mm3 (0.0-0.2); Basophils % (Auto) 1 % (0-2.5); Eosinophils # (Auto) 0.5 Thou/mm3 (0.0-0.5); Eosinophils % (Auto) 8 % (0-10); Hematocrit 24.9 % (41.0-53.0); Immature Granulocytes Auto 0.05 Thou/mm3 (0.00-0.00); Lymphocytes # (Auto) 2.0 Thou/mm3 (1.0-4.8); Lymphocytes % (Auto) 33 % (10-50); Mean Corpuscular HGB Conc 31.3 g/dl (31.0-37.0); Mean Corpuscular Hemoglobin 27.0 pg (25.0-35.0); Mean Corpuscular Volume 86 fL (80-100); Monocytes # (Auto) 1.0 Thou/mm3 (0.0-0.8); Monocytes % (Auto) 16 % (0-12); Neutrophils # (Auto) 2.6 Thou/mm3 (1.8-7.7); Neutrophils % (Auto) 42 % (37-80); Nucleated Red Blood Cell # 0.00 Thou/mm3 (0.00-0.00); Nucleated Red Blood Cell % 0 /100 WBC (0); Platelet Count 489 Thou/mm3 (140-440); RDW Standard Deviation 50.7 fL (35.1-43.9); Red Blood Count 2.89 Miln/mm3 (4.50-5.90); White Blood Count 6.1 Thou/mm3 (3.8-10.6)
[2025-06-13 07:01] LABS: Hemoglobin 7.8 g/dL (13.5-16.0)
[2025-06-13] MEDS: Magnesium Sulfate 4 GM Ivpb 4 GM/50 ML BAG IV (08:09)
[2025-06-13] MEDS: LANSOPRAZOLE 30 MG TAB.RAP.DR GT (08:09)
[2025-06-13] MEDS: levETIRAcetam LIQD 500 MG/5 ML UDC 750 MG GT ×2 (08:10→20:30)
[2025-06-13] MEDS: SEVELAMER CARBONATE 0.8 GM PACKET (NON-FORMULARY) GT ×3 (08:10→19:02)
[2025-06-13] MEDS: VALPROIC ACID SYRUP 250 MG/5 ML UDC 500 MG GT ×2 (08:11→20:40)
--- NOTE | 2025-06-13 09:39 | PC.SS ---
Updated: Patient is Trach/PEG. Spiked fever. Plan is to transition patient to sub-acute upon medical clearance.
--- NOTE | 2025-06-13 09:47 | PC.SS ---
Updated clinicals submitted to Sub-Acute on [facility].
--- NOTE | 2025-06-13 09:57 | PC.SS ---
LAMINATION OPERATOR confirmed with sub-acute staff that PASSR to be completed on day of admission.
--- NOTE | 2025-06-13 10:17 | ESPR_ITS ---
Subjective Subjective Interval history: on zosyn as noted started 06/05. cxr neg 06/10 described as LLL Pna on 06/05 though. procal neg (again) over weekend Exam Vital Signs Temp Pulse Resp BP Pulse Ox O2 Del Method O2 Flow Rate 99.7 F 131 H 29 H 145/71 H 99 Trach Collar 35 06/13/25 06:47 06/13/25 07:22 06/13/25 07:22 06/13/25 07:22 06/13/25 07:22 06/13/25 04:00 06/05/25 16:00 FiO2 30 06/13/25 07:22 Narrative Exam no more sz. trach remains along with fever. Objective - Internal Medicine Labs 06/13/25 06:52 06/13/25 04:49 Labs: Laboratory Results - last 24 hr 06/13/25 06/13/25 04:49 06:52 WBC 6.1 RBC 2.89 L Hgb 7.8 L Hct 24.9 L MCV 86 MCH 27.0 MCHC 31.3 RDW Std Deviation 50.7 H Plt Count 489 H Neut % (Auto) 42 Lymph % (Auto) 33 [place] % (Auto) 16 H Eos % (Auto) 8 Baso % (Auto) 1 Neut # (Auto) 2.6 Lymph # (Auto) 2.0 [place] # (Auto) 1.0 H Eos # (Auto) 0.5 Baso # (Auto) 0.1 Immature Gran # (Auto) 0.05 H Absolute Nucleated RBC 0.00 Immature Gran % 1 H Nucleated RBC % 0 Sodium 141 Potassium 3.9 Chloride 101 Carbon Dioxide 26.4 Anion Gap 14 BUN 12 Creatinine 0.6 Estim Creat Clear Calc 144.2 eGFR > 60 BUN/Creatinine Ratio 20 Glucose 98 Calculated Osmolality 280 Calcium 9.8 Corrected Calcium 9.8 Phosphorus 4.4 Magnesium 1.7 Total Bilirubin 0.2 L AST 43 H ALT 40 Alkaline Phosphatase 147 H D Total Protein 6.3 Albumin 4.0 Globulin 2.3 Albumin/Globulin Ratio 1.7 ABG Interpretation ABG results: 05/09/25 05/09/25 05/09/25 11:56 13:40 18:50 ABG pH 7.40 7.27 L D 7.28 L ABG pCO2 40 43 55 H D ABG pO2 131 H 53 L* D 70 L ABG HCO3 25 20 26 ABG O2 Saturation 99 H 81 L 92 ABG Base Excess 0 -7 L -2 VBG pH VBG pCO2 VBG pO2 VBG Base Excess 05/10/25 05/11/25 05/12/25 00:14 05:06 01:18 ABG pH 7.35 7.33 L 7.39 ABG pCO2 42 D 54 H D 48 ABG pO2 103 D 93 94 ABG HCO3 23 28 H 29 H ABG O2 Saturation 99 H 98 98 ABG Base Excess -3 2 3 VBG pH VBG pCO2 VBG pO2 VBG Base Excess 05/12/25 05/12/25 05/13/25 03:58 11:50 05:10 ABG pH 7.46 H 7.39 7.19 L* D ABG pCO2 41 48 60 H D ABG pO2 105 58 L* D 114 H D ABG HCO3 29 H 29 H 23 ABG O2 Saturation 99 H 90 L 98 ABG Base Excess 5 H 4 H -6 L VBG pH VBG pCO2 VBG pO2 VBG Base Excess 05/17/25 05/18/25 05/19/25 01:30 04:09 04:43 ABG pH 7.38 7.43 7.47 H ABG pCO2 46 44 43 ABG pO2 90 83 80 L ABG HCO3 27 H 29 H 31 H ABG O2 Saturation 98 97 97 ABG Base Excess 2 5 H 7 H VBG pH VBG pCO2 VBG pO2 VBG Base Excess 05/21/25 05/21/25 05/31/25 04:18 06:33 08:06 ABG pH 7.37 D 7.46 H ABG pCO2 50 H 38 D ABG pO2 40 L* D 121 H D ABG HCO3 29 H 27 H ABG O2 Saturation 66 L 100 H ABG Base Excess 3 3 VBG pH 7.55 VBG pCO2 31 L VBG pO2 144 H VBG Base Excess 5 H 06/05/25 06/05/25 06/06/25 13:37 23:46 05:20 ABG pH 7.47 H 7.45 ABG pCO2 35 38 ABG pO2 200 H 54 L* D ABG HCO3 25 26 ABG O2 Saturation 101 H 89 L ABG Base Excess 2 2 VBG pH 7.50 VBG pCO2 34 L VBG pO2 90 H VBG Base Excess 4 H 06/10/25 17:41 ABG pH ABG pCO2 ABG pO2 ABG HCO3 ABG O2 Saturation ABG Base Excess VBG pH 7.40 VBG pCO2 43 VBG pO2 43 VBG Base Excess 2 Assessment & Plan A&P Narrative viral findings on pcr testing at health dept. cmv pos in initially, repeat noted not that striking resp failure fuo procal neg 06/02 procal insensitive to fungal antigens I am ok with him off many meds entirely. procal has mostly been neg for a long time now so value of more abx seems low.and despite icu insistence. it looks like the response to zosyn rx is absent. and procal and cxr neg the other day would not target the cmv. tests suggest old cmv and ebv value of rx seems low. hardest thing to do is stop meds but that is often what is needed. prognosis guarded with continued vent needs hiv and hep c neg sadly, this may be all drug related fever but hardest thing to do is stop meds not all fevers are infectious fever but that strategy seems favored by icu team hence the abx. Time Spent With Patient Time: Total time spent is greater than 50% in coordination of care (as documented) at patient's floor/unit and/or counseling patient:
--- NOTE | 2025-06-13 10:46 | ESPR_ITS ---
<Statement entered by Robert Cross MD - 06/13/25 19:39> Patient was seen and examined at bedside. I agree on the assessment and plan on this note as documented by resident Dr Ninfa Molina DO PGY1. 24-year-old male with past medical history as below has had a prolonged hospital course for 35 days, seen and examined at bedside. Patient continues to have fevers, is tachycardic and tachypneic at times. Patient is requiring high dose of phenobarbital 129.6 mg 3 times daily, clonazepam 0.5 mg 4 times daily and oxycodone 10 mg 3 times daily, no as needed medication was given today for agitation. Patient was diagnosed with tardive dyskinesia per neurology and ICU evaluation, will continue deutetrabenazine 6 mg twice daily. Patient's mother was updated using [employer] diplomatic interpreter/translator CC [id number], all questions answered and was updated on plan. Reached out to Dr. Major at [facility] regarding possible discharge per family's preference, per him patient will benefit from LTAC placement considering he is requiring high-dose sedation and will likely need closer monitoring. We will discuss with patient's family regarding placement in a.m. otherwise no medication changes were made. Will continue to monitor patient. Case discussed with attending Dr. Jose Cross MD PGY-2 Documentation for date of: 06/13/25 Subjective Subjective Interval history: Patient was agitated with RR in 48, improved to 27 but quickly rised up again after trach tube suctioning. Tachycardia in 140s. Per nurse, agitation and tachycardia are baseline. Patient was given Magnesium overnight. Patient has a fever this morning at 6am, 100.6, resolved with Tylenol 325mg. Continued to have mild transaminitis on labs. Neurologist, Dr. Lang, following, appreciate recs. ID, Dr. Rubio, following, appreciate recs. Exam Vital Signs Temp Pulse Resp BP Pulse Ox O2 Del Method O2 Flow Rate 99.7 F 131 H 29 H 145/71 H 99 Trach Collar 35 06/13/25 06:47 06/13/25 07:22 06/13/25 07:22 06/13/25 07:22 06/13/25 07:22 06/13/25 04:00 06/05/25 16:00 FiO2 30 06/13/25 07:22 Narrative Exam General: Trach and PEG tube in place. AAOx0, Non-verbal at baseline. Eyes sluggish. Intermittent grimace Eye: Normal conjunctiva, no scleral icterus Neck: Supple, non-tender, no JVD, no lymphadenopathy Lungs: Coarse breath sounds, symmetric chest rise, No wheezing, rhonchi, crackles Heart: Peripheral pulses intact bilaterally, Tachycardic Abdomen: Soft, non-tender, non-distended, no palpable masses Musculoskeletal: No cyanosis, No visible joint swelling, +1 Bilaterally upper extremities edema Skin: Skin is warm, dry, no rashes or lesions. Neuro: Cranial nerves II-XII grossly intact. Objective Labs 06/13/25 06:52 06/13/25 04:49 Labs: Laboratory Results - last 24 hr 06/13/25 06/13/25 04:49 06:52 WBC 6.1 RBC 2.89 L Hgb 7.8 L Hct 24.9 L MCV 86 MCH 27.0 MCHC 31.3 RDW Std Deviation 50.7 H Plt Count 489 H Neut % (Auto) 42 Lymph % (Auto) 33 [place] % (Auto) 16 H Eos % (Auto) 8 Baso % (Auto) 1 Neut # (Auto) 2.6 Lymph # (Auto) 2.0 [place] # (Auto) 1.0 H Eos # (Auto) 0.5 Baso # (Auto) 0.1 Immature Gran # (Auto) 0.05 H Absolute Nucleated RBC 0.00 Immature Gran % 1 H Nucleated RBC % 0 Sodium 141 Potassium 3.9 Chloride 101 Carbon Dioxide 26.4 Anion Gap 14 BUN 12 Creatinine 0.6 Estim Creat Clear Calc 144.2 eGFR > 60 BUN/Creatinine Ratio 20 Glucose 98 Calculated Osmolality 280 Calcium 9.8 Corrected Calcium 9.8 Phosphorus 4.4 Magnesium 1.7 Total Bilirubin 0.2 L AST 43 H ALT 40 Alkaline Phosphatase 147 H D Total Protein 6.3 Albumin 4.0 Globulin 2.3 Albumin/Globulin Ratio 1.7 ABG Interpretation ABG results: 05/09/25 05/09/25 05/09/25 11:56 13:40 18:50 ABG pH 7.40 7.27 L D 7.28 L ABG pCO2 40 43 55 H D ABG pO2 131 H 53 L* D 70 L ABG HCO3 25 20 26 ABG O2 Saturation 99 H 81 L 92 ABG Base Excess 0 -7 L -2 VBG pH VBG pCO2 VBG pO2 VBG Base Excess 05/10/25 05/11/25 05/12/25 00:14 05:06 01:18 ABG pH 7.35 7.33 L 7.39 ABG pCO2 42 D 54 H D 48 ABG pO2 103 D 93 94 ABG HCO3 23 28 H 29 H ABG O2 Saturation 99 H 98 98 ABG Base Excess -3 2 3 VBG pH VBG pCO2 VBG pO2 VBG Base Excess 05/12/25 05/12/25 05/13/25 03:58 11:50 05:10 ABG pH 7.46 H 7.39 7.19 L* D ABG pCO2 41 48 60 H D ABG pO2 105 58 L* D 114 H D ABG HCO3 29 H 29 H 23 ABG O2 Saturation 99 H 90 L 98 ABG Base Excess 5 H 4 H -6 L VBG pH VBG pCO2 VBG pO2 VBG Base Excess 05/17/25 05/18/25 05/19/25 01:30 04:09 04:43 ABG pH 7.38 7.43 7.47 H ABG pCO2 46 44 43 ABG pO2 90 83 80 L ABG HCO3 27 H 29 H 31 H ABG O2 Saturation 98 97 97 ABG Base Excess 2 5 H 7 H VBG pH VBG pCO2 VBG pO2 VBG Base Excess 05/21/25 05/21/25 05/31/25 04:18 06:33 08:06 ABG pH 7.37 D 7.46 H ABG pCO2 50 H 38 D ABG pO2 40 L* D 121 H D ABG HCO3 29 H 27 H ABG O2 Saturation 66 L 100 H ABG Base Excess 3 3 VBG pH 7.55 VBG pCO2 31 L VBG pO2 144 H VBG Base Excess 5 H 06/05/25 06/05/25 06/06/25 13:37 23:46 05:20 ABG pH 7.47 H 7.45 ABG pCO2 35 38 ABG pO2 200 H 54 L* D ABG HCO3 25 26 ABG O2 Saturation 101 H 89 L ABG Base Excess 2 2 VBG pH 7.50 VBG pCO2 34 L VBG pO2 90 H VBG Base Excess 4 H 06/10/25 17:41 ABG pH ABG pCO2 ABG pO2 ABG HCO3 ABG O2 Saturation ABG Base Excess VBG pH 7.40 VBG pCO2 43 VBG pO2 43 VBG Base Excess 2 Quality Measures Quality Measures VTE prophylaxis (SCDs) and sepsis Current suspected stage: ruled out Possible source: pulmonary Blood cultures ordered: yes Antibiotic ordered: Yes Assessment & Plan Assessment Current Active Medications: Generic Name Dose Route Start Last Admin Trade Name Freq PRN Reason Stop Dose Admin Acetaminophen 325 mg 06/09/25 18:19 06/13/25 05:47 Acetaminophen Racquel 325 Mg/10 Ml Udc GT 07/09/25 16:12 325 mg Q4HR PRN Administration pain (1-3) or fever > 100.4 Clonazepam 0.5 mg 06/12/25 11:47 06/13/25 05:30 Clonazepam 0.5 Mg Tablet PO 06/16/25 11:59 0.5 mg QID KYA Administration Deutetrabenazine 6 mg 06/11/25 10:30 06/13/25 09:15 Deutetrabenazine 6 Mg Tablet (Non-Formulary) GT 07/11/25 10:29 6 mg BIDWM KYA Administration Ferrous Sulfate 325 mg 06/01/25 09:00 06/13/25 08:10 Ferrous Sulfate 300 Mg/5 Ml Udc PO 07/01/25 08:59 325 mg QOD KYA Administration Heparin Sodium (Porcine) 5,000 unit 06/08/25 14:00 06/13/25 05:30 Heparin Sod Inj 5000 Unit/Ml Vial SC 06/22/25 13:59 5,000 unit Q8HR KYA Administration Hydromorphone HCl 0.5 mg 06/10/25 06:56 06/13/25 05:25 Hydromorphone Inj 2 Mg/Ml Vial IVP 06/19/25 06:55 0.5 mg Q4HR PRN Administration BREAKTHROUGH PAIN Protocol Piperacillin Sod/Tazobactam 100 mls @ 200 mls/hr 06/05/25 14:00 06/13/25 05:27 Sod 4.5 gm/ Sodium Chloride IV 06/18/25 13:59 200 mls/hr Q8HR KYA Administration Protocol Lansoprazole 30 mg 05/28/25 09:00 06/13/25 08:09 Lansoprazole 30 Mg Tab.Rap.Dr SANTANA 06/27/25 08:59 30 mg QDAY KYA Administration Levetiracetam 750 mg 05/30/25 09:00 06/13/25 08:10 Levetiracetam Liqd 500 Mg/5 Ml Udc GT 06/29/25 08:59 750 mg BID KYA Administration Midazolam HCl 4 mg 06/12/25 16:40 06/12/25 17:28 Midazolam Inj 1 Mg/Ml Vial 2 Ml IVP 06/17/25 17:59 4 mg Q2HR PRN Administration Agitation or pain Ondansetron HCl 4 mg 05/27/25 14:37 Ondansetron Odt 4 Mg Tabrap GT 06/26/25 14:36 Q6HR PRN NAUSEA OR VOMITING Protocol Oxycodone HCl 10 mg 06/12/25 11:47 06/13/25 05:30 Oxycodone Hcl 5 Mg Ir Tab GT 06/14/25 15:44 10 mg TID KYA Administration Phenobarbital 129.6 mg 06/12/25 11:47 06/13/25 05:48 Phenobarbital 32.4 Mg Tablet GT 06/24/25 14:44 129.6 mg TID KYA Administration Polyethylene Glycol 17 gm 05/16/25 09:15 06/13/25 08:11 Polyethylene Glycol 17 Gm Packet PO 06/15/25 09:14 Not Given QDAY KYA Propranolol HCl 5 mg 06/12/25 14:00 06/13/25 05:29 Propranolol 10 Mg Tablet GT 07/12/25 13:59 5 mg TID KYA Administration Sevelamer Carbonate 0.8 gm 06/11/25 09:00 06/13/25 08:10 Sevelamer Carbonate 0.8 Gm Packet (Non-Formulary) GT 07/11/25 08:59 0.8 gm TIDWM KYA Administration Sodium Chloride 3 ml 05/17/25 11:43 Sodium Chloride Rt Racquel 0.9% 3 Ml Nebu INH 06/16/25 11:42 PRN PRN SOLN Valproic Acid 500 mg 06/10/25 09:00 06/13/25 08:11 Valproic Acid Syrup 250 Mg/5 Ml Udc GT 07/10/25 08:59 500 mg BID KYA Administration Plan 24-year-old male with cerebral palsy, asthma, seizure disorder, chronic mastoiditis, recurrent pneumonia, and chronic PEG tube dependence presented with fever and seizure, was admitted for sepsis workup, and later transferred to the ICU for intubation due to concerns about airway protection. Patient has been downgraded from ICU to tele on 05/31/2025; however, re-upgraded to ICU on 06/05 due to tachycardia in 160s, tachypnea, persistent fever, and ventilator asynchrony. #Agitation Differential diagnosis: ICU acquired delirium, opiate withdrawal, delirium Diagnostic workup: - Patient was weaned off of sedation and was downgraded to telemetry, however as sedatives were down titrated and telemetry patient had episode of severe agitation and ventilator asynchrony and was upgraded to ICU for further intervention. - EEG 05/11 unremarkable. Repeat EEG 05/20 showed electrographic seizure activity. Continuous EEG 05/22-05/23: no seizure activity or status epilepticus. Repeat EEG 06/05 negative for seizure activity. - MRI brain 05/23: showed chronic infections, no acute pathology. - Cisatracurium gtt discontinued - Versed gtt discontinued Treatment: - Phenobarbital 129.6 mg three times daily - Clonazepam 0.5 mg four times daily - Oxycodone 10 mg three times daily - Hold orders were added for respiratory rate <14, heart rate <70, or BP <100/60 for the above 3 meds Follow-up: - Use Versed 4 mg pushes every hour as needed #Tardive dyskinesia Diagnostic workup: - Nonpurposeful twisting movements of the patient's upper extremity with recurrent grimaces noted on 06/10 when the patient was taken off sedation - Patient's family notes that the patient has had a long history of nonpurposeful movement and has been previously prescribed deutetrabenazine for management by his neurologist - Per ICU, if deutetrabenazine remains ineffective, will increase to 12 mg twice daily after 1 week of starting the medication, may take up to 4 weeks to see maximal effect Treatment: - Discontinued home Seroquel 50 mg in the morning and 100 mg at night due to tardive dyskinesia - Deutetrabenazine 6 mg twice daily #Sepsis #Bilateral chronic mastoiditis #Sinusitis #Bilateral otitis media #Bilateral otitis externa #Brittney parapsilosis #Community Acquired Pneumonia #UTI, E.coli, ESBL #Pseudomonas aeruginosa, sputum positive #Mucus plugs, right upper lung and left lower lung ? -History of chronic mastoiditis. -Met SIRS criteria on admission: T 105F, HR 176, RR 26, PaCO2 26, WBC 16.3. -Head CT (05/08/2025): prominent sphenoid ethmoid maxillary antral sinusitis, bilateral chronic mastoiditis, bilateral otitis media. -CT Orbit Sella Inner (05/08/2025): severe bilateral chronic mastoiditis, bilateral otitis externa and otitis media, bilateral cholesteatomas in the attics. -CXR (05/09/2025): Bilateral Perihilar Pneumonia. CXR (05/13/2025): Extensive Bilateral Pneumonia, CXR(05/19/2025): Significant bilateral Pneumonia -CT Chest/abd/pelvis (05/16/2025): Extensive bilateral pneumonia, Cystitis pattern, Cholelithiasis -A repeat Cocci serology test was negative -Lumbar puncture(05/10/2025): clear, WBC 3, glucose 70, total protein 25. CSF testing negative. -Respiratory viral panel (05/10/2025): rhinovirus/enterovirus and human metapneumovirus detected. -UA 05/08 and 05/16 negative. [Culture Hx] -1st Blood Cx (05/08): No growth for 5 days. 2nd Blood Cx (05/11): No growth for 5 days, 3rd Blood Cx (05/16): No growth for 5 days, 4th Blood Cx (06/01): No growth for 48hrs -1st Sputum Cx (05/09): Pseudomonas aeruginosa (only sensitive to Meropenem, Tobramycin). 2nd Sputum Cx (05/13): Mixed oral hamilton. 3rd Sputum Cx (05/19): Mixed oral hamilton, 4th Sputum Cx (05/20): Brittney albicans, 5th Sputum Cx (06/01): GNR -CSF Cx (05/10): No growth for 3 days -Left Ear Cx (05/12): Brittney parapsilosis -Right Ear Cx(05/12): E.coli, ESBL (only sensitive to Ertapenem, Meropenem, Zosyn) -Urine Cx (06/01): E.coli, ESBL (only sensitive to Ertapenem, Meropenem, Nitrofurantoin, Zosyn) -Sputum culture 11/9 shows sensitive to Zosyn and intermittent resistance to cefepime [Antibiotics/Antifungal Hx] IV Zosyn 3.375g x1 (at 05/08) IV Ceftriaxone 1g x1 (at 05/08) IV Acyclovir 640mg q8hr (05/08-05/11) since LP negative. IV Ceftriaxone 2g q12hr (05/08-05/11) IV Vancomycin qd (05/08-05/11) since MRSA screen is negative Ofloxacin Opt racquel 0.3% 5 drops Both ears bid (05/09-05/18, 05/21-05/31) IV Meropenem 1000mg q8hr (05/12-05/22, 05/24-05/25) IV Doxycycline (05/16-05/18) IV Micafungin 100mg qd (05/28-05/30, 06/01-06/03) Ciprofloxacin Op Racquel 0.3% ear drops (06/02-06/03) -CXR is showing pneumonia, but CXR often remain abnormal for days to weeks. The infiltrate or consolidation can persist even though the infection has cleared. The radiographic improvement can take up to 4-6 weeks.? Patient is on minimal ventilator setting, oxygen requirement is stable, and has completed antibiotics course. -UTI unlikely sources of infection given low number of colonies and long antibiotics treatment in ICU. -Per ENT, [place], patient does not have acute coalescent mastoiditis in either ear. Left and right middle ear is also not filled with effusion. -Chest x-ray 06/07 AM, showed a left lower lobe consolidation, ddx left lower lobe pneumonia versus mucous plug versus left pleural effusion versus mucous plug versus atelectasis lung ultrasound at bedside, effusion ruled out, no hepatization of the lung noted. Bedside bronchoscopy showed left lower lobe mucous plug, cleared with deep suction Plan: - Currently on IV Zosyn 06/05- planned until 06/18 for 14-day course coverage of Pseudomonas IV Zosyn 3.375g x1 (at 05/08) IV Ceftriaxone 1g x1 (at 05/08) IV Acyclovir 640mg q8hr (05/08-05/11) IV Ceftriaxone 2g q12hr (05/08-05/11) IV Vancomycin qd (05/08-05/11) since MRSA screen is negative IV Meropenem 1000mg q8hr (05/12-05/22, 05/24-05/25) IV Doxycycline (05/16-05/18) IV Micafungin 100mg qd (05/28-05/30, 06/01-06/03) IV fluconazole 06/05-06/07 Follow-up: - Once weaned off sedation and patient has cough reflex intact and more awake/alert, will consider chest physiotherapy. #Phimosis s/p dorsal slit procedure 06/08/2025 #Paraphimosis (resolved) #Balanitis (resolved) Diagnostic workup: - Edema and tenderness of the glans penis, Swelling of the distal retracted foreskin, Constricting band of tissue proximal to the head of the penis at the coronal sulcus on presentation, s/p reduction of the paraphimosis by urologist Dr. Vargas on 05/09 and phimosis dorsal slit on 06/08 Treatment: - Dilaudid 0.5 mg IVP every 4 hours as needed for breakthrough pain - Monitor for worsening swelling, bleeding, or blockage of urine #Seizure disorder by history #Cerebral palsy by history Diagnostic workup: - Active seizure disorder ruled out, multiple EEGs negative for seizure activity Treatment: - Continue Depakote 250 mg GT every 8 hours and Keppra 750 mg GT twice daily #Sinus tachycardia Differential diagnosis: Infection, hypersympathetic activity Diagnostic workup: - Did have positive sputum and urine culture for Pseudomonas and ESBL respectively - Patient's last fever was 06/12/2025 05:46 - Echocardiogram was obtained to rule out any vegetations TTE shows normal systolic function, EF 55 to 60%, diastolic dysfunction grade 1, no evidence of vegetation or endocarditis Treatment: - Downtitrated propranolol 10 mg to 5 mg 3 times daily - Continue antibiotics - Monitor for fever, use ibuprofen as needed for fever episode - Telemetry monitoring - Plan to titrate off propranolol completely in 3 days #Elevated alkaline phosphatase, improving #Low PTH #Abnormal nuclear medicine bone scan Differential diagnosis: increased osteoblastic activity in setting of vegetative state, bone infection (particularly of left mastoid), hypoparathyroidism, osteoarthritis Diagnostic workup: - PTH intact low at 3.6, calcium 9.9, vitamin D 25-OH 18.1 - Renal function intact, at baseline - Nuclear medicine bone scan shows minor asymmetric uptake left knee and mild increased uptake mid left tibia - Knee x-ray 06/06 and tibia-fibula x-ray 06/06 showed no findings diagnostic for osseous metastatic disease - MRI left leg 06/08 images severely degraded by continuous patient motion - No pain to palpation of bilateral lower extremities Treatment: - Continue sevelamer 800 mg 3 times daily - Patient to follow up on abnormal imaging outpatient #Tongue Laceration, traumatic #Gingivial Bleeding, Oral Trauma Diagnostic workup: -Known to have episodes of jaw spasms and teeth clenching with agitation. Had significant trauma to gums and tongue due to clenching of teeth 06/06 - No further bleeding appreciated in oral mucosa Treatment: - Patient required cisatracurium to relax jaw, pressure was applied locally, oral packing none, injections of lido?epinephrine x 3 to gums on 06/06 night Follow-up: - Monitor for bleeding #Bronchospasm #History of asthma -Magnesium for bronchodilator effect as needed. -Albuterol and Ipratropium as needed. #Failed extubation 05/12 #Acute hypoxic respiratory failure s/p tracheostomy #Ventilator dependent -Patient underwent tracheostomy on 05/26/2025 -Chest physiotherapy daily #Chronic PEG tube dependence -Nepro 1.8 Christ 1L RTH -Pro Stat Sugar Free 30 ml #Hyperphosphatemia -Sevelamer 1g GT 3 times daily, adjust if needed. #Normocytic Anemia #Leukocytosis-Resolving #Maculopapular rash to the buttocks-Resolving #Acute urinary retention-Resolved #Hypoalbuminemia-Resolved #Hyperkalemia-Resolved #Acute kidney injury-Resolved #Anion Gap Metabolic Acidosis-Resolved #Acute nonocclusive thrombus in the left brachial vein-Resolved Disposition: Tele Diet: Nepro 1.8 Christ 1L RTH and Pro Stat Sugar Free 30 ml GI prophylaxis: Lansoprazole 30mg GT qd DVT prophylaxis: SCDs,[id number] SC BID due to bleeding Code: FULL Assessment and plan discussed with my attending physician Dr. Ennis and Dr. Cross (PGY-2) Dr. Molina (PGY-1) - vice president investor relations Attending Provider Attestation/Addendum I have seen and examined the patient. I was physically present for the luke portions of the services provided including history, physical exam, diagnosis, treatment plans and orders. I agree with assessment and plan of care as documented by residents. Patient seen and examined at bedside this morning. Continues to have temperature spikes, with tachycardia and tachypnea. Also noted to be constantly moving on his bed, unable to answer questions or follow commands. Currently on phenobarbital, clonazepam, oxycodone, propranolol for his agitation. Neurology following closely, patient's movements thought to be from tardive dyskinesia has been started on deutetrabenazine, appreciate recommendations. He is also receiving IV Zosyn for Pseudomonas pneumonia to be continued until 1122. Patient also underwent dorsal slit for phimosis, reduction of paraphimosis with urology. Currently on Dilaudid as needed for breakthrough pain. Unclear cause for elevated temperature but thought to be possibly from his movement disorder. Discussed with Dr. Major from subacute, recommended discussing with patient family regarding LTAC placement since patient is requiring multiple medication for agitation and will likely need close monitoring. We will continue with the same regimen for agitation/movement disorder, if starts to improve, we will consider tapering them down. 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 Jose Ennis MD
--- NOTE | 2025-06-13 13:18 | PC.SS ---
Update: Patient Trach/PEG. At goal rate for feeding. Patient possessed fever this morning. ICU downgrade.
--- NOTE | 2025-06-13 20:52 | ESPR_ITS ---
Documentation for date of: 06/13/25 Subjective Subjective Interval history: Patient seen today in the ICU found awake, alert, restless. Vitals and labs reviewed. Continues to spike fevers. Continues with intermittent restlessness and agitation during the evening dose of Austedo increased to 9mg BID. Patient to continue Keppra 750mg BID, phenobarbital 129.6 mg 3 times daily, clonazepam 0.5 mg 4 times daily and oxycodone 10 mg 3 times daily Exam Vital Signs Temp Pulse Resp BP Pulse Ox O2 Del Method O2 Flow Rate 100.6 F H 146 H 27 H 155/94 H 99 Mechanical Ventilation 35 06/13/25 16:00 06/13/25 19:14 06/13/25 16:00 06/13/25 19:14 06/13/25 19:14 06/13/25 16:00 06/13/25 16:00 FiO2 30 06/13/25 19:14 Narrative Exam Physical Exam GENERAL: restless, trached and peg tube in place, HEENT: Moist mucosa. Eyes open, symmetrical, & clear CARDIO: Heart RRR, no obvious murmurs PULM: No noted coughing/dyspnea CTA B/L, no R/W/R GI: Abdomen soft, nondistended, no pain on palpation. BSx4 SKIN/MSK/EXT: No wounds/rashes/edema/amputations, no pain on palpation. Pedal pulses present B/L NEURO: able to move all 4 extremities Objective Labs 06/13/25 06:52 06/13/25 04:49 Labs: Laboratory Results - last 24 hr 06/13/25 06/13/25 04:49 06:52 WBC 6.1 RBC 2.89 L Hgb 7.8 L Hct 24.9 L MCV 86 MCH 27.0 MCHC 31.3 RDW Std Deviation 50.7 H Plt Count 489 H Neut % (Auto) 42 Lymph % (Auto) 33 [place] % (Auto) 16 H Eos % (Auto) 8 Baso % (Auto) 1 Neut # (Auto) 2.6 Lymph # (Auto) 2.0 [place] # (Auto) 1.0 H Eos # (Auto) 0.5 Baso # (Auto) 0.1 Immature Gran # (Auto) 0.05 H Absolute Nucleated RBC 0.00 Immature Gran % 1 H Nucleated RBC % 0 Sodium 141 Potassium 3.9 Chloride 101 Carbon Dioxide 26.4 Anion Gap 14 BUN 12 Creatinine 0.6 Estim Creat Clear Calc 144.2 eGFR > 60 BUN/Creatinine Ratio 20 Glucose 98 Calculated Osmolality 280 Calcium 9.8 Corrected Calcium 9.8 Phosphorus 4.4 Magnesium 1.7 Total Bilirubin 0.2 L AST 43 H ALT 40 Alkaline Phosphatase 147 H D Total Protein 6.3 Albumin 4.0 Globulin 2.3 Albumin/Globulin Ratio 1.7 ABG Interpretation ABG results: 05/09/25 05/09/25 05/09/25 11:56 13:40 18:50 ABG pH 7.40 7.27 L D 7.28 L ABG pCO2 40 43 55 H D ABG pO2 131 H 53 L* D 70 L ABG HCO3 25 20 26 ABG O2 Saturation 99 H 81 L 92 ABG Base Excess 0 -7 L -2 VBG pH VBG pCO2 VBG pO2 VBG Base Excess 05/10/25 05/11/25 05/12/25 00:14 05:06 01:18 ABG pH 7.35 7.33 L 7.39 ABG pCO2 42 D 54 H D 48 ABG pO2 103 D 93 94 ABG HCO3 23 28 H 29 H ABG O2 Saturation 99 H 98 98 ABG Base Excess -3 2 3 VBG pH VBG pCO2 VBG pO2 VBG Base Excess 05/12/25 05/12/25 05/13/25 03:58 11:50 05:10 ABG pH 7.46 H 7.39 7.19 L* D ABG pCO2 41 48 60 H D ABG pO2 105 58 L* D 114 H D ABG HCO3 29 H 29 H 23 ABG O2 Saturation 99 H 90 L 98 ABG Base Excess 5 H 4 H -6 L VBG pH VBG pCO2 VBG pO2 VBG Base Excess 05/17/25 05/18/25 05/19/25 01:30 04:09 04:43 ABG pH 7.38 7.43 7.47 H ABG pCO2 46 44 43 ABG pO2 90 83 80 L ABG HCO3 27 H 29 H 31 H ABG O2 Saturation 98 97 97 ABG Base Excess 2 5 H 7 H VBG pH VBG pCO2 VBG pO2 VBG Base Excess 05/21/25 05/21/25 05/31/25 04:18 06:33 08:06 ABG pH 7.37 D 7.46 H ABG pCO2 50 H 38 D ABG pO2 40 L* D 121 H D ABG HCO3 29 H 27 H ABG O2 Saturation 66 L 100 H ABG Base Excess 3 3 VBG pH 7.55 VBG pCO2 31 L VBG pO2 144 H VBG Base Excess 5 H 06/05/25 06/05/25 06/06/25 13:37 23:46 05:20 ABG pH 7.47 H 7.45 ABG pCO2 35 38 ABG pO2 200 H 54 L* D ABG HCO3 25 26 ABG O2 Saturation 101 H 89 L ABG Base Excess 2 2 VBG pH 7.50 VBG pCO2 34 L VBG pO2 90 H VBG Base Excess 4 H 06/10/25 17:41 ABG pH ABG pCO2 ABG pO2 ABG HCO3 ABG O2 Saturation ABG Base Excess VBG pH 7.40 VBG pCO2 43 VBG pO2 43 VBG Base Excess 2 Quality Measures Quality Measures VTE prophylaxis (SCDs) and sepsis Current suspected stage: ruled out Possible source: pulmonary Blood cultures ordered: yes Antibiotic ordered: Yes Assessment & Plan Assessment Current Active Medications: Generic Name Dose Route Start Last Admin Trade Name Freq PRN Reason Stop Dose Admin Acetaminophen 325 mg 06/09/25 18:19 06/13/25 05:47 Acetaminophen Racquel 325 Mg/10 Ml Udc GT 07/09/25 16:12 325 mg Q4HR PRN Administration pain (1-3) or fever > 100.4 Clonazepam 0.5 mg 06/12/25 11:47 06/13/25 20:29 Clonazepam 0.5 Mg Tablet PO 06/16/25 11:59 0.5 mg QID KYA Administration Deutetrabenazine 6 mg 06/11/25 10:30 06/13/25 19:01 Deutetrabenazine 6 Mg Tablet (Non-Formulary) GT 07/11/25 10:29 6 mg BIDWM KYA Administration Ferrous Sulfate 325 mg 06/01/25 09:00 06/13/25 08:10 Ferrous Sulfate 300 Mg/5 Ml Udc PO 07/01/25 08:59 325 mg QOD KYA Administration Heparin Sodium (Porcine) 5,000 unit 06/08/25 14:00 06/13/25 13:38 Heparin Sod Inj 5000 Unit/Ml Vial SC 06/22/25 13:59 5,000 unit Q8HR KYA Administration Hydromorphone HCl 0.5 mg 06/10/25 06:56 06/13/25 05:25 Hydromorphone Inj 2 Mg/Ml Vial IVP 06/19/25 06:55 0.5 mg Q4HR PRN Administration BREAKTHROUGH PAIN Protocol Piperacillin Sod/Tazobactam 100 mls @ 200 mls/hr 06/05/25 14:00 06/13/25 13:33 Sod 4.5 gm/ Sodium Chloride IV 06/18/25 13:59 200 mls/hr Q8HR KYA Administration Protocol Lansoprazole 30 mg 05/28/25 09:00 06/13/25 08:09 Lansoprazole 30 Mg Tab.Mary. GT 06/27/25 08:59 30 mg QDAY KYA Administration Levetiracetam 750 mg 05/30/25 09:00 06/13/25 20:30 Levetiracetam Liqd 500 Mg/5 Ml Udc GT 06/29/25 08:59 750 mg BID KYA Administration Midazolam HCl 4 mg 06/12/25 16:40 06/12/25 17:28 Midazolam Inj 1 Mg/Ml Vial 2 Ml IVP 06/17/25 17:59 4 mg Q2HR PRN Administration Agitation or pain Ondansetron HCl 4 mg 05/27/25 14:37 Ondansetron Odt 4 Mg Tabrap GT 06/26/25 14:36 Q6HR PRN NAUSEA OR VOMITING Protocol Oxycodone HCl 10 mg 06/12/25 11:47 06/13/25 13:38 Oxycodone Hcl 5 Mg Ir Tab GT 06/14/25 15:44 10 mg TID KYA Administration Phenobarbital 129.6 mg 06/12/25 11:47 06/13/25 13:37 Phenobarbital 32.4 Mg Tablet GT 06/24/25 14:44 129.6 mg TID KYA Administration Polyethylene Glycol 17 gm 05/16/25 09:15 06/13/25 08:11 Polyethylene Glycol 17 Gm Packet PO 06/15/25 09:14 Not Given QDAY KYA Propranolol HCl 5 mg 06/12/25 14:00 06/13/25 13:39 Propranolol 10 Mg Tablet GT 07/12/25 13:59 5 mg TID KYA Administration Sevelamer Carbonate 0.8 gm 06/11/25 09:00 06/13/25 19:02 Sevelamer Carbonate 0.8 Gm Packet (Non-Formulary) GT 07/11/25 08:59 0.8 gm TIDWM KYA Administration Sodium Chloride 3 ml 05/17/25 11:43 Sodium Chloride Rt Racquel 0.9% 3 Ml Nebu INH 06/16/25 11:42 PRN PRN SOLN Valproic Acid 500 mg 06/10/25 09:00 06/13/25 08:11 Valproic Acid Syrup 250 Mg/5 Ml Udc GT 07/10/25 08:59 500 mg BID KYA Administration Plan 24-year-old male with cerebral palsy, asthma, seizure disorder, chronic mastoiditis, recurrent pneumonia, and chronic PEG tube dependence presented with fever and seizure, was admitted for sepsis workup, and later transferred to the ICU for intubation due to concerns about airway protection. Patient has been downgraded from ICU to tele on 05/31/2025; however, re-upgraded to ICU on 06/05 due to tachycardia in 160s, tachypnea, persistent fever, and ventilator asynchrony. 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 EEG 05/11 unremarkable. Repeat EEG 05/20 showed electrographic seizure activity. Continuous EEG 05/22-05/23: no seizure activity or status epilepticus. Repeat EEG 06/05 negative for seizure activity. MRI brain: no acute pathology. - Austedo 6mg BID adjusted to 9mg BID - Continue Phenobarbital 129.6 mg three times daily, Clonazepam 0.5 mg four times daily, Oxycodone 10 mg three times daily - Continue Depakote 250 mg GT every 8 hours and Keppra 750 mg GT twice daily - Versed 4 mg pushes every hour as needed #Sepsis #Bilateral chronic mastoiditis #Bilateral otitis media/otitis externa #Community Acquired Pneumonia #UTI, E.coli, ESBL #Pseudomonas aeruginosa, sputum positive #Mucus plugs, right upper lung and left lower lung ? #Paraphimosis (resolved) #Balanitis (resolved) #Sinus tachycardia #Gingivial Bleeding, Oral Trauma #Bronchospasm #History of asthma #Acute hypoxic respiratory failure s/p tracheostomy #Normocytic Anemia #Leukocytosis-Resolving #Maculopapular rash to the buttocks-Resolving #Acute kidney injury-Resolved #Anion Gap Metabolic Acidosis-Resolved #Acute nonocclusive thrombus in the left brachial vein-Resolved - as per primary team Case discussed with my attending Dr. Precious Cole MD PGY-2 Attending Provider Attestation/Addendum I personally have seen and examined the patient at the bedside and agree with the residents findings, assessment and plan of care. As he continues to have dyskinetic movements, recommended to increase the dose of Austedo to 9 mg twice a day. Continue with the rest of the medications.
[2025-06-13] MEDS: MIDAZOLAM INJ 1 MG/ML VIAL 2 ML 4 MG IVP (21:37)
[2025-06-14] VITALS (25 sets, daily range): BP systolic 130–165; BP diastolic 79–107; PULSE 9–167; RESP 19–47; TEMP 36.2–38.8; O2SAT 97–100
[2025-06-14] MEDS: ACETAMINOPHEN SOL 325 MG/10 ML UDC GT ×2 (04:20→17:54)
[2025-06-14] MEDS: HEPARIN SOD INJ 5000 UNIT/ML VIAL SC ×3 (05:32→21:27)
[2025-06-14] MEDS: oxyCODONE HCL 5 MG IR TAB 10 MG GT ×2 (05:33→21:27)
[2025-06-14] MEDS: PROPRANOLOL 10 MG TABLET 5 MG GT ×3 (05:38→21:26)
[2025-06-14] MEDS: PIPER/TAZO INJ 4.5 GM in SODIUM CHLORIDE 0.9% (POP) 100 ML IV ×3 (05:39→21:27)
[2025-06-14] MEDS: SEVELAMER CARBONATE 0.8 GM PACKET (NON-FORMULARY) GT ×3 (08:27→16:59)
[2025-06-14] MEDS: levETIRAcetam LIQD 500 MG/5 ML UDC 750 MG GT ×2 (08:55→20:11)
[2025-06-14] MEDS: VALPROIC ACID SYRUP 250 MG/5 ML UDC 500 MG GT ×2 (08:55→20:11)
[2025-06-14] MEDS: POLYETHYLENE GLYCOL 17 GM PACKET PO (08:56)
[2025-06-14] MEDS: LANSOPRAZOLE 30 MG TAB.RAP.DR GT (08:56)
--- NOTE | 2025-06-14 14:30 | PC.SS ---
Rounding Note: Patient spiking fevers. Plan is to taper medications. Possible LTAC placement. Plan is to discuss with patient's parents.
--- NOTE | 2025-06-14 15:16 | ESPR_ITS ---
<Statement entered by Robert Cross MD - 06/16/25 05:32> Patient was seen and examined at bedside. I agree on the assessment and plan on this note as documented by resident Dr Ninfa Molina DO PGY1. Patient seen and examined at bedside, seems to have significant improvement relative to yesterday, plan is to decrease clonazepam to 3 times daily from 4 times daily however we will continue all other medications. Patient continues to have fevers, in the evening received call from covering team patient was agitated tachycardia with heart rate in 160s and tachypnea with respiratory rate in 60s. Patient was given as Versed and Dilaudid and improved. We will again increase clonazepam to 4 times daily. Will discuss with family regarding placement as subacute director Dr. Major is recommending LTAC transfer Case discussed with attending Dr. Jose Cross MD PGY-2 Documentation for date of: 06/14/25 Subjective Subjective Interval history: Patient continued to have fever, Tmax 101.3, resolved with Tylenol. Patient seemed calm, not agitated, synchronized with vent. Skipped clonazepam and oxycodone doses in afternoon. Plan to start weaning off sedation, start with changing clonazepam 0.5mg QID to TID Consult Sub-acute, Dr. Major, appreciate recs: Given patient's medical history and current condition, patient is more appropriate for LTAC if cannot wean off current sedation regimen. Plan for family meeting to discuss dispo plan. Exam Vital Signs Temp Pulse Resp BP Pulse Ox O2 Del Method O2 Flow Rate 97.9 F 106 H 24 H 135/79 H 100 Mechanical Ventilation 35 06/14/25 12:00 06/14/25 14:21 06/14/25 06:23 06/14/25 14:21 06/14/25 14:21 06/14/25 12:00 06/13/25 16:00 FiO2 25 06/14/25 14:21 Narrative Exam General: Trach and PEG tube in place. AAOx0, Non-verbal at baseline. Eyes sluggish. Intermittent grimace Eye: Normal conjunctiva, no scleral icterus Neck: Supple, non-tender, no JVD, no lymphadenopathy Lungs: Coarse breath sounds, symmetric chest rise, No wheezing, rhonchi, crackles Heart: Peripheral pulses intact bilaterally, Tachycardic Abdomen: Soft, non-tender, non-distended, no palpable masses Musculoskeletal: No cyanosis, No visible joint swelling, +1 Bilaterally upper extremities edema Skin: Skin is warm, dry, no rashes or lesions. Neuro: Cranial nerves II-XII grossly intact. Objective Labs 06/15/25 06:25 06/15/25 06:25 ABG Interpretation ABG results: 05/09/25 05/09/25 05/09/25 11:56 13:40 18:50 ABG pH 7.40 7.27 L D 7.28 L ABG pCO2 40 43 55 H D ABG pO2 131 H 53 L* D 70 L ABG HCO3 25 20 26 ABG O2 Saturation 99 H 81 L 92 ABG Base Excess 0 -7 L -2 VBG pH VBG pCO2 VBG pO2 VBG Base Excess 05/10/25 05/11/25 05/12/25 00:14 05:06 01:18 ABG pH 7.35 7.33 L 7.39 ABG pCO2 42 D 54 H D 48 ABG pO2 103 D 93 94 ABG HCO3 23 28 H 29 H ABG O2 Saturation 99 H 98 98 ABG Base Excess -3 2 3 VBG pH VBG pCO2 VBG pO2 VBG Base Excess 05/12/25 05/12/25 05/13/25 03:58 11:50 05:10 ABG pH 7.46 H 7.39 7.19 L* D ABG pCO2 41 48 60 H D ABG pO2 105 58 L* D 114 H D ABG HCO3 29 H 29 H 23 ABG O2 Saturation 99 H 90 L 98 ABG Base Excess 5 H 4 H -6 L VBG pH VBG pCO2 VBG pO2 VBG Base Excess 05/17/25 05/18/25 05/19/25 01:30 04:09 04:43 ABG pH 7.38 7.43 7.47 H ABG pCO2 46 44 43 ABG pO2 90 83 80 L ABG HCO3 27 H 29 H 31 H ABG O2 Saturation 98 97 97 ABG Base Excess 2 5 H 7 H VBG pH VBG pCO2 VBG pO2 VBG Base Excess 05/21/25 05/21/25 05/31/25 04:18 06:33 08:06 ABG pH 7.37 D 7.46 H ABG pCO2 50 H 38 D ABG pO2 40 L* D 121 H D ABG HCO3 29 H 27 H ABG O2 Saturation 66 L 100 H ABG Base Excess 3 3 VBG pH 7.55 VBG pCO2 31 L VBG pO2 144 H VBG Base Excess 5 H 06/05/25 06/05/25 06/06/25 13:37 23:46 05:20 ABG pH 7.47 H 7.45 ABG pCO2 35 38 ABG pO2 200 H 54 L* D ABG HCO3 25 26 ABG O2 Saturation 101 H 89 L ABG Base Excess 2 2 VBG pH 7.50 VBG pCO2 34 L VBG pO2 90 H VBG Base Excess 4 H 06/10/25 17:41 ABG pH ABG pCO2 ABG pO2 ABG HCO3 ABG O2 Saturation ABG Base Excess VBG pH 7.40 VBG pCO2 43 VBG pO2 43 VBG Base Excess 2 Quality Measures Quality Measures VTE prophylaxis (SCDs) and sepsis Current suspected stage: ruled out Possible source: pulmonary Blood cultures ordered: yes Antibiotic ordered: Yes Assessment & Plan Assessment Current Active Medications: Generic Name Dose Route Start Last Admin Trade Name Freq PRN Reason Stop Dose Admin Acetaminophen 325 mg 06/09/25 18:19 06/14/25 04:20 Acetaminophen Racquel 325 Mg/10 Ml Udc GT 07/09/25 16:12 325 mg Q4HR PRN Administration pain (1-3) or fever > 100.4 Clonazepam 0.5 mg 06/14/25 14:00 06/14/25 13:56 Clonazepam 0.5 Mg Tablet PO 06/19/25 13:59 Not Given TID KYA Deutetrabenazine 9 mg 06/14/25 08:00 06/14/25 10:06 Deutetrabenazine 6 Mg Tablet (Non-Formulary) GT 07/14/25 07:59 9 mg BIDWM KYA Administration Ferrous Sulfate 325 mg 06/01/25 09:00 06/13/25 08:10 Ferrous Sulfate 300 Mg/5 Ml Udc PO 07/01/25 08:59 325 mg QOD KYA Administration Heparin Sodium (Porcine) 5,000 unit 06/08/25 14:00 06/14/25 13:50 Heparin Sod Inj 5000 Unit/Ml Vial SC 06/22/25 13:59 5,000 unit Q8HR KYA Administration Hydromorphone HCl 0.5 mg 06/10/25 06:56 06/13/25 21:57 Hydromorphone Inj 2 Mg/Ml Vial IVP 06/19/25 06:55 0.5 mg Q4HR PRN Administration BREAKTHROUGH PAIN Protocol Piperacillin Sod/Tazobactam 100 mls @ 200 mls/hr 06/05/25 14:00 06/14/25 13:49 Sod 4.5 gm/ Sodium Chloride IV 06/18/25 13:59 200 mls/hr Q8HR KYA Administration Protocol Lansoprazole 30 mg 05/28/25 09:00 06/14/25 08:56 Lansoprazole 30 Mg Tab.Rap. GT 06/27/25 08:59 30 mg QDAY KYA Administration Levetiracetam 750 mg 05/30/25 09:00 06/14/25 08:55 Levetiracetam Liqd 500 Mg/5 Ml Udc GT 06/29/25 08:59 750 mg BID KYA Administration Midazolam HCl 4 mg 06/12/25 16:40 06/13/25 21:37 Midazolam Inj 1 Mg/Ml Vial 2 Ml IVP 06/17/25 17:59 4 mg Q2HR PRN Administration Agitation or pain Ondansetron HCl 4 mg 05/27/25 14:37 Ondansetron Odt 4 Mg Tabrap GT 06/26/25 14:36 Q6HR PRN NAUSEA OR VOMITING Protocol Oxycodone HCl 10 mg 06/12/25 11:47 06/14/25 14:05 Oxycodone Hcl 5 Mg Ir Tab GT 06/21/25 15:44 Not Given TID KYA Phenobarbital 129.6 mg 06/12/25 11:47 06/14/25 13:50 Phenobarbital 32.4 Mg Tablet GT 06/24/25 14:44 129.6 mg TID KYA Administration Polyethylene Glycol 17 gm 06/14/25 11:16 Polyethylene Glycol 17 Gm Packet PO 06/15/25 09:14 QDAY PRN Constipation Propranolol HCl 5 mg 06/12/25 14:00 06/14/25 13:51 Propranolol 10 Mg Tablet GT 07/12/25 13:59 5 mg TID KYA Administration Sevelamer Carbonate 0.8 gm 06/11/25 09:00 06/14/25 13:12 Sevelamer Carbonate 0.8 Gm Packet (Non-Formulary) GT 07/11/25 08:59 0.8 gm TIDWM KYA Administration Sodium Chloride 3 ml 05/17/25 11:43 Sodium Chloride Rt Racquel 0.9% 3 Ml Nebu INH 06/16/25 11:42 PRN PRN SOLN Sterile Water 10 ml 06/14/25 09:15 06/14/25 10:08 Water, Sterile Inj 50 Ml Vial GT 07/14/25 09:14 10 ml BID KYA Administration Protocol Valproic Acid 500 mg 06/10/25 09:00 06/14/25 08:55 Valproic Acid Syrup 250 Mg/5 Ml Udc GT 07/10/25 08:59 500 mg BID KYA Administration Plan 24-year-old male with cerebral palsy, asthma, seizure disorder, chronic mastoiditis, recurrent pneumonia, and chronic PEG tube dependence presented with fever and seizure, was admitted for sepsis workup, and later transferred to the ICU for intubation due to concerns about airway protection. Patient has been downgraded from ICU to tele on 05/31/2025; however, re-upgraded to ICU on 06/05 due to tachycardia in 160s, tachypnea, persistent fever, and ventilator asynchrony. #Agitation Differential diagnosis: ICU acquired delirium, opiate withdrawal, delirium Diagnostic workup: - Patient was weaned off of sedation and was downgraded to telemetry, however as sedatives were down titrated and telemetry patient had episode of severe agitation and ventilator asynchrony and was upgraded to ICU for further intervention. - EEG 05/11 unremarkable. Repeat EEG 05/20 showed electrographic seizure activity. Continuous EEG 05/22-05/23: no seizure activity or status epilepticus. Repeat EEG 06/05 negative for seizure activity. - MRI brain 05/23: showed chronic infections, no acute pathology. - Cisatracurium gtt discontinued - Versed gtt discontinued Treatment: - Phenobarbital 129.6 mg three times daily - Clonazepam 0.5 mg three times daily - weaned from four times daily - Oxycodone 10 mg three times daily - Hold orders were added for respiratory rate <14, heart rate <70, or BP <100/60 for the above 3 meds Follow-up: - Use Versed 4 mg pushes every hour as needed #Goal of care Chronic trach and PEG, currently on heavy sedation. Consult Sub-acute, Dr. Major, appreciate recs: Given patient's medical history and current condition, patient is more appropriate for LTAC if cannot wean off current sedation regimen. Plan: - Family meeting to discuss dispo plan. #Tardive dyskinesia Diagnostic workup: - Nonpurposeful twisting movements of the patient's upper extremity with recurrent grimaces noted on 06/10 when the patient was taken off sedation - Patient's family notes that the patient has had a long history of nonpurposeful movement and has been previously prescribed deutetrabenazine for management by his neurologist - Per ICU, if deutetrabenazine remains ineffective, will increase to 12 mg twice daily after 1 week of starting the medication, may take up to 4 weeks to see maximal effect Treatment: - Discontinued home Seroquel 50 mg in the morning and 100 mg at night due to tardive dyskinesia - Deutetrabenazine 6 mg twice daily #Sepsis #Bilateral chronic mastoiditis #Sinusitis #Bilateral otitis media #Bilateral otitis externa #Brittney parapsilosis #Community Acquired Pneumonia #UTI, E.coli, ESBL #Pseudomonas aeruginosa, sputum positive #Mucus plugs, right upper lung and left lower lung ? -History of chronic mastoiditis. -Met SIRS criteria on admission: T 105F, HR 176, RR 26, PaCO2 26, WBC 16.3. -Head CT (05/08/2025): prominent sphenoid ethmoid maxillary antral sinusitis, bilateral chronic mastoiditis, bilateral otitis media. -CT Orbit Sella Inner (05/08/2025): severe bilateral chronic mastoiditis, bilateral otitis externa and otitis media, bilateral cholesteatomas in the attics. -CXR (05/09/2025): Bilateral Perihilar Pneumonia. CXR (05/13/2025): Extensive Bilateral Pneumonia, CXR(05/19/2025): Significant bilateral Pneumonia -CT Chest/abd/pelvis (05/16/2025): Extensive bilateral pneumonia, Cystitis pattern, Cholelithiasis -A repeat Cocci serology test was negative -Lumbar puncture(05/10/2025): clear, WBC 3, glucose 70, total protein 25. CSF testing negative. -Respiratory viral panel (05/10/2025): rhinovirus/enterovirus and human metapneumovirus detected. -UA 05/08 and 05/16 negative. [Culture Hx] -1st Blood Cx (05/08): No growth for 5 days. 2nd Blood Cx (05/11): No growth for 5 days, 3rd Blood Cx (05/16): No growth for 5 days, 4th Blood Cx (06/01): No growth for 48hrs -1st Sputum Cx (05/09): Pseudomonas aeruginosa (only sensitive to Meropenem, Tobramycin). 2nd Sputum Cx (05/13): Mixed oral hamilton. 3rd Sputum Cx (05/19): Mixed oral hamilton, 4th Sputum Cx (05/20): Brittney albicans, 5th Sputum Cx (06/01): GNR -CSF Cx (05/10): No growth for 3 days -Left Ear Cx (05/12): Brittney parapsilosis -Right Ear Cx(05/12): E.coli, ESBL (only sensitive to Ertapenem, Meropenem, Zosyn) -Urine Cx (06/01): E.coli, ESBL (only sensitive to Ertapenem, Meropenem, Nitrofurantoin, Zosyn) -Sputum culture 06/05 shows sensitive to Zosyn and intermittent resistance to cefepime [Antibiotics/Antifungal Hx] IV Zosyn 3.375g x1 (at 05/08) IV Ceftriaxone 1g x1 (at 05/08) IV Acyclovir 640mg q8hr (05/08-05/11) since LP negative. IV Ceftriaxone 2g q12hr (05/08-05/11) IV Vancomycin qd (05/08-05/11) since MRSA screen is negative Ofloxacin Opt racquel 0.3% 5 drops Both ears bid (05/09-05/18, 05/21-05/31) IV Meropenem 1000mg q8hr (05/12-05/22, 05/24-05/25) IV Doxycycline (05/16-05/18) IV Micafungin 100mg qd (05/28-05/30, 06/01-06/03) Ciprofloxacin Op Racquel 0.3% ear drops (06/02-06/03) -CXR is showing pneumonia, but CXR often remain abnormal for days to weeks. The infiltrate or consolidation can persist even though the infection has cleared. The radiographic improvement can take up to 4-6 weeks.? Patient is on minimal ventilator setting, oxygen requirement is stable, and has completed antibiotics course. -UTI unlikely sources of infection given low number of colonies and long antibiotics treatment in ICU. -Per ENT, Dr. Ojeda, patient does not have acute coalescent mastoiditis in either ear. Left and right middle ear is also not filled with effusion. -Chest x-ray 06/07 AM, showed a left lower lobe consolidation, ddx left lower lobe pneumonia versus mucous plug versus left pleural effusion versus mucous plug versus atelectasis lung ultrasound at bedside, effusion ruled out, no hepatization of the lung noted. Bedside bronchoscopy showed left lower lobe mucous plug, cleared with deep suction Plan: - Currently on IV Zosyn 06/05- planned until 06/18 for 14-day course coverage of Pseudomonas IV Zosyn 3.375g x1 (at 05/08) IV Ceftriaxone 1g x1 (at 05/08) IV Acyclovir 640mg q8hr (05/08-05/11) IV Ceftriaxone 2g q12hr (05/08-05/11) IV Vancomycin qd (05/08-05/11) since MRSA screen is negative IV Meropenem 1000mg q8hr (05/12-05/22, 05/24-05/25) IV Doxycycline (05/16-05/18) IV Micafungin 100mg qd (05/28-05/30, 06/01-06/03) IV fluconazole 06/05-06/07 Follow-up: - Once weaned off sedation and patient has cough reflex intact and more awake/alert, will consider chest physiotherapy. #Phimosis s/p dorsal slit procedure 06/08/2025 #Paraphimosis (resolved) #Balanitis (resolved) Diagnostic workup: - Edema and tenderness of the glans penis, Swelling of the distal retracted foreskin, Constricting band of tissue proximal to the head of the penis at the coronal sulcus on presentation, s/p reduction of the paraphimosis by urologist Dr. Vargas on 05/09 and phimosis dorsal slit on 06/08 Treatment: - Dilaudid 0.5 mg IVP every 4 hours as needed for breakthrough pain - Monitor for worsening swelling, bleeding, or blockage of urine #Seizure disorder by history #Cerebral palsy by history Diagnostic workup: - Active seizure disorder ruled out, multiple EEGs negative for seizure activity Treatment: - Continue Depakote 250 mg GT every 8 hours and Keppra 750 mg GT twice daily #Sinus tachycardia Differential diagnosis: Infection, hypersympathetic activity Diagnostic workup: - Did have positive sputum and urine culture for Pseudomonas and ESBL respectively - Patient's last fever was 06/12/2025 05:46 - Echocardiogram was obtained to rule out any vegetations TTE shows normal systolic function, EF 55 to 60%, diastolic dysfunction grade 1, no evidence of vegetation or endocarditis Treatment: - Downtitrated propranolol 10 mg to 5 mg 3 times daily - Continue antibiotics - Monitor for fever, use ibuprofen as needed for fever episode - Telemetry monitoring - Plan to titrate off propranolol completely in 3 days #Elevated alkaline phosphatase, improving #Low PTH #Abnormal nuclear medicine bone scan Differential diagnosis: increased osteoblastic activity in setting of vegetative state, bone infection (particularly of left mastoid), hypoparathyroidism, osteoarthritis Diagnostic workup: - PTH intact low at 3.6, calcium 9.9, vitamin D 25-OH 18.1 - Renal function intact, at baseline - Nuclear medicine bone scan shows minor asymmetric uptake left knee and mild increased uptake mid left tibia - Knee x-ray 06/06 and tibia-fibula x-ray 06/06 showed no findings diagnostic for osseous metastatic disease - MRI left leg 06/08 images severely degraded by continuous patient motion - No pain to palpation of bilateral lower extremities Treatment: - Continue sevelamer 800 mg 3 times daily - Patient to follow up on abnormal imaging outpatient #Tongue Laceration, traumatic #Gingivial Bleeding, Oral Trauma Diagnostic workup: -Known to have episodes of jaw spasms and teeth clenching with agitation. Had significant trauma to gums and tongue due to clenching of teeth 06/06 - No further bleeding appreciated in oral mucosa Treatment: - Patient required cisatracurium to relax jaw, pressure was applied locally, oral packing none, injections of lido?epinephrine x 3 to gums on 06/06 night Follow-up: - Monitor for bleeding #Bronchospasm #History of asthma -Magnesium for bronchodilator effect as needed. -Albuterol and Ipratropium as needed. #Failed extubation 05/12 #Acute hypoxic respiratory failure s/p tracheostomy #Ventilator dependent -Patient underwent tracheostomy on 05/26/2025 -Chest physiotherapy daily #Chronic PEG tube dependence -Nepro 1.8 Christ 1L RTH -Pro Stat Sugar Free 30 ml #Hyperphosphatemia -Sevelamer 1g GT 3 times daily, adjust if needed. #Normocytic Anemia #Leukocytosis-Resolving #Maculopapular rash to the buttocks-Resolving #Acute urinary retention-Resolved #Hypoalbuminemia-Resolved #Hyperkalemia-Resolved #Acute kidney injury-Resolved #Anion Gap Metabolic Acidosis-Resolved #Acute nonocclusive thrombus in the left brachial vein-Resolved Disposition: Tele Diet: Nepro 1.8 Christ 1L RTH and Pro Stat Sugar Free 30 ml GI prophylaxis: Lansoprazole 30mg GT qd DVT prophylaxis: SCDs,[id number] SC BID due to bleeding Code: FULL Assessment and plan discussed with my attending physician Dr. Ennis and Dr. Cross (PGY-2) Dr. Molina (PGY-1) - residential advisor Attending Provider Attestation/Addendum I have seen and examined the patient. I was physically present for the luke portions of the services provided including history, physical exam, diagnosis, treatment plans and orders. I agree with assessment and plan of care as documented by residents. Patient seen and examined at bedside this morning. Appears much calmer compared to yesterday, resting comfortably in bed. Vital signs have also improved with improvement in heart rate and tachycardia. Continues to be on pressure support, 8 PEEP. Lab results are stable skipped doses of oxycodone and clonazepam this afternoon. Clonazepam dosing tapered from 4 times daily to 3 times daily. We will continue to monitor his mentation/agitation/movement disorder and continue to taper his sedating medications slowly as tolerated. Neurology following closely, recommended increasing the dosing of deutetrabenazine to 9 mg twice daily, appreciate recommendations. Has been afebrile since 1029 yesterday evening. Continues to be on IV Zosyn for Pseudomonas pneumonia. Even though this this note was carefully revised there may still be minor errors in cornice upholsterer due to voice recognition software. Jose Ennis MD
[2025-06-14] MEDS: MIDAZOLAM INJ 1 MG/ML VIAL 2 ML 4 MG IVP ×2 (17:27→19:15)
[2025-06-14] MEDS: HYDROmorphone INJ 2 MG/ML VIAL 0.5 MG IVP ×2 (17:37→20:06)
--- NOTE | 2025-06-14 18:26 | PD.RESPRO ---
Documentation for date of: 06/14/25 Subjective Subjective Interval history: Patient seen today in the ICU found awake and alert, more calm than on previous examinations. Vitals and labs reviewed. Noted to have fevers overnight, after midnight however no new episodes of fevers nor during the day. Patient has not required phenobarbital at this time and clonazepam has been adjusted to TID from QID. Can continue current dose of Austedo 9mg BID. Exam Vital Signs Temp Pulse Resp BP Pulse Ox O2 Del Method O2 Flow Rate 101 F H 138 H 24 H 149/90 H 100 Mechanical Ventilation 35 06/14/25 17:54 06/14/25 16:00 06/14/25 06:23 06/14/25 16:00 06/14/25 16:00 06/14/25 16:00 06/13/25 16:00 FiO2 25 06/14/25 16:00 Narrative Exam Physical Exam GENERAL: restless, trached and peg tube in place, HEENT: Moist mucosa. Eyes open, symmetrical, & clear CARDIO: Heart RRR, no obvious murmurs PULM: No noted coughing/dyspnea CTA B/L, no R/W/R GI: Abdomen soft, nondistended, no pain on palpation. BSx4 SKIN/MSK/EXT: No wounds/rashes/edema/amputations, no pain on palpation. Pedal pulses present B/L NEURO: able to move all 4 extremities Objective Labs 06/15/25 06:25 06/15/25 06:25 ABG Interpretation ABG results: 05/09/25 05/09/25 05/09/25 11:56 13:40 18:50 ABG pH 7.40 7.27 L D 7.28 L ABG pCO2 40 43 55 H D ABG pO2 131 H 53 L* D 70 L ABG HCO3 25 20 26 ABG O2 Saturation 99 H 81 L 92 ABG Base Excess 0 -7 L -2 VBG pH VBG pCO2 VBG pO2 VBG Base Excess 05/10/25 05/11/25 05/12/25 00:14 05:06 01:18 ABG pH 7.35 7.33 L 7.39 ABG pCO2 42 D 54 H D 48 ABG pO2 103 D 93 94 ABG HCO3 23 28 H 29 H ABG O2 Saturation 99 H 98 98 ABG Base Excess -3 2 3 VBG pH VBG pCO2 VBG pO2 VBG Base Excess 05/12/25 05/12/25 05/13/25 03:58 11:50 05:10 ABG pH 7.46 H 7.39 7.19 L* D ABG pCO2 41 48 60 H D ABG pO2 105 58 L* D 114 H D ABG HCO3 29 H 29 H 23 ABG O2 Saturation 99 H 90 L 98 ABG Base Excess 5 H 4 H -6 L VBG pH VBG pCO2 VBG pO2 VBG Base Excess 05/17/25 05/18/25 05/19/25 01:30 04:09 04:43 ABG pH 7.38 7.43 7.47 H ABG pCO2 46 44 43 ABG pO2 90 83 80 L ABG HCO3 27 H 29 H 31 H ABG O2 Saturation 98 97 97 ABG Base Excess 2 5 H 7 H VBG pH VBG pCO2 VBG pO2 VBG Base Excess 05/21/25 05/21/25 05/31/25 04:18 06:33 08:06 ABG pH 7.37 D 7.46 H ABG pCO2 50 H 38 D ABG pO2 40 L* D 121 H D ABG HCO3 29 H 27 H ABG O2 Saturation 66 L 100 H ABG Base Excess 3 3 VBG pH 7.55 VBG pCO2 31 L VBG pO2 144 H VBG Base Excess 5 H 06/05/25 06/05/25 06/06/25 13:37 23:46 05:20 ABG pH 7.47 H 7.45 ABG pCO2 35 38 ABG pO2 200 H 54 L* D ABG HCO3 25 26 ABG O2 Saturation 101 H 89 L ABG Base Excess 2 2 VBG pH 7.50 VBG pCO2 34 L VBG pO2 90 H VBG Base Excess 4 H 06/10/25 17:41 ABG pH ABG pCO2 ABG pO2 ABG HCO3 ABG O2 Saturation ABG Base Excess VBG pH 7.40 VBG pCO2 43 VBG pO2 43 VBG Base Excess 2 Quality Measures Quality Measures VTE prophylaxis (SCDs) and sepsis Current suspected stage: ruled out Possible source: pulmonary Blood cultures ordered: yes Antibiotic ordered: Yes Assessment & Plan Assessment Current Active Medications: Generic Name Dose Route Start Last Admin Trade Name Freq PRN Reason Stop Dose Admin Acetaminophen 325 mg 06/09/25 18:19 06/14/25 17:54 Acetaminophen Racquel 325 Mg/10 Ml Udc GT 07/09/25 16:12 325 mg Q4HR PRN Administration pain (1-3) or fever > 100.4 Clonazepam 0.5 mg 06/14/25 14:00 06/14/25 13:56 Clonazepam 0.5 Mg Tablet PO 06/19/25 13:59 Not Given TID KYA Deutetrabenazine 9 mg 06/14/25 08:00 06/14/25 16:57 Deutetrabenazine 6 Mg Tablet (Non-Formulary) GT 07/14/25 07:59 9 mg BIDWM KYA Administration Ferrous Sulfate 325 mg 06/01/25 09:00 06/13/25 08:10 Ferrous Sulfate 300 Mg/5 Ml Udc PO 07/01/25 08:59 325 mg QOD KYA Administration Heparin Sodium (Porcine) 5,000 unit 06/08/25 14:00 06/14/25 13:50 Heparin Sod Inj 5000 Unit/Ml Vial SC 06/22/25 13:59 5,000 unit Q8HR KYA Administration Hydromorphone HCl 0.5 mg 06/10/25 06:56 06/14/25 17:37 Hydromorphone Inj 2 Mg/Ml Vial IVP 06/19/25 06:55 0.5 mg Q4HR PRN Administration BREAKTHROUGH PAIN Protocol Piperacillin Sod/Tazobactam 100 mls @ 200 mls/hr 06/05/25 14:00 06/14/25 13:49 Sod 4.5 gm/ Sodium Chloride IV 06/18/25 13:59 200 mls/hr Q8HR KYA Administration Protocol Lansoprazole 30 mg 05/28/25 09:00 06/14/25 08:56 Lansoprazole 30 Mg Tab.Rap. GT 06/27/25 08:59 30 mg QDAY KYA Administration Levetiracetam 750 mg 05/30/25 09:00 06/14/25 08:55 Levetiracetam Liqd 500 Mg/5 Ml Udc GT 06/29/25 08:59 750 mg BID KYA Administration Midazolam HCl 4 mg 06/12/25 16:40 06/14/25 17:27 Midazolam Inj 1 Mg/Ml Vial 2 Ml IVP 06/17/25 17:59 4 mg Q2HR PRN Administration Agitation or pain Ondansetron HCl 4 mg 05/27/25 14:37 Ondansetron Odt 4 Mg Tabrap GT 06/26/25 14:36 Q6HR PRN NAUSEA OR VOMITING Protocol Oxycodone HCl 10 mg 06/12/25 11:47 06/14/25 14:05 Oxycodone Hcl 5 Mg Ir Tab GT 06/21/25 15:44 Not Given TID KYA Phenobarbital 129.6 mg 06/12/25 11:47 06/14/25 13:50 Phenobarbital 32.4 Mg Tablet GT 06/24/25 14:44 129.6 mg TID KYA Administration Polyethylene Glycol 17 gm 06/14/25 11:16 Polyethylene Glycol 17 Gm Packet PO 06/15/25 09:14 QDAY PRN Constipation Propranolol HCl 5 mg 06/12/25 14:00 06/14/25 13:51 Propranolol 10 Mg Tablet GT 07/12/25 13:59 5 mg TID KYA Administration Sevelamer Carbonate 0.8 gm 06/11/25 09:00 06/14/25 16:59 Sevelamer Carbonate 0.8 Gm Packet (Non-Formulary) GT 07/11/25 08:59 0.8 gm TIDWM KYA Administration Sodium Chloride 3 ml 05/17/25 11:43 Sodium Chloride Rt Racquel 0.9% 3 Ml Nebu INH 06/16/25 11:42 PRN PRN SOLN Sterile Water 10 ml 06/14/25 17:30 06/14/25 17:00 Water, Sterile Inj 50 Ml Vial GT 07/14/25 17:29 10 ml BIDWM KYA Administration Protocol Valproic Acid 500 mg 06/10/25 09:00 06/14/25 08:55 Valproic Acid Syrup 250 Mg/5 Ml Udc GT 07/10/25 08:59 500 mg BID KAY Administration Plan 24-year-old male with cerebral palsy, asthma, seizure disorder, chronic mastoiditis, recurrent pneumonia, and chronic PEG tube dependence presented with fever and seizure, was admitted for sepsis workup, and later transferred to the ICU for intubation due to concerns about airway protection. Patient has been downgraded from ICU to tele on 05/31/2025; however, re-upgraded to ICU on 06/05 due to tachycardia in 160s, tachypnea, persistent fever, and ventilator asynchrony. 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 EEG 05/11 unremarkable. Repeat EEG 05/20 showed electrographic seizure activity. Continuous EEG 05/22-05/23: no seizure activity or status epilepticus. Repeat EEG 06/05 negative for seizure activity. MRI brain: no acute pathology. - continue Austedo 9mg BID - Continue Phenobarbital 129.6 mg three times daily, Clonazepam 0.5 mg three times daily, Oxycodone 10 mg three times daily - Continue Depakote 250 mg GT every 8 hours and Keppra 750 mg GT twice daily - Versed 4 mg pushes every hour as needed #Sepsis #Bilateral chronic mastoiditis #Bilateral otitis media/otitis externa #Community Acquired Pneumonia #UTI, E.coli, ESBL #Pseudomonas aeruginosa, sputum positive #Mucus plugs, right upper lung and left lower lung ? #Paraphimosis (resolved) #Balanitis (resolved) #Sinus tachycardia #Gingivial Bleeding, Oral Trauma #Bronchospasm #History of asthma #Acute hypoxic respiratory failure s/p tracheostomy #Normocytic Anemia #Leukocytosis-Resolving #Maculopapular rash to the buttocks-Resolving #Acute kidney injury-Resolved #Anion Gap Metabolic Acidosis-Resolved #Acute nonocclusive thrombus in the left brachial vein-Resolved - as per primary team Case discussed with my attending Dr. Precious Cole MD PGY-2 Attending Provider Attestation/Addendum I personally have seen and examined the patient at the bedside and agree with resident's findings, assessment and plan of care. Patient continued to have intermittent fever spikes. His dyskinetic movements have gotten somewhat better with increasing dose of Austedo to 9 mg twice a day.
[2025-06-14] MEDS: IBUPROFEN SUSP 100 MG/5 ML UDC 400 MG PO (18:27)
[2025-06-14] MEDS: oxyCODONE HCL 5 MG IR TAB 10 MG PO (18:27)
--- NOTE | 2025-06-14 18:52 | PC.NURSE ---
Addendum entered by Corrine Kincaid, COREY 06/14/25 19:27: MD ASHRAF NOTIFIED, NOT MD PEREZ Original Note: at 1340, MD perez notified of patient HR at 101, pt sleeping, lethargic, per MD perez oxycodone and klonadine held, at 1730, MD lane notified of patient HR at 130s, RR at PRN versed given per MD, at 1750 notified of HR in 140 and RR at 40, Diladid given, notified of temp of 101 and prn tylenol given, ROSALINA berry notified, at 1800 Dr adler notified of HR in 160s and patient agitation, ibuprofen and oxycodone given per order
[2025-06-15] VITALS (20 sets, daily range): BP systolic 94–151; BP diastolic 48–91; PULSE 89–140; RESP 17–45; TEMP 36.7–39.6; O2SAT 96–100; BMI 40.3
[2025-06-15] MEDS: HEPARIN SOD INJ 5000 UNIT/ML VIAL SC ×3 (05:57→21:15)
[2025-06-15] MEDS: PIPER/TAZO INJ 4.5 GM in SODIUM CHLORIDE 0.9% (POP) 100 ML IV ×3 (05:57→21:14)
[2025-06-15] MEDS: PROPRANOLOL 10 MG TABLET 5 MG GT ×3 (05:58→21:15)
[2025-06-15] MEDS: oxyCODONE HCL 5 MG IR TAB 10 MG GT ×3 (05:59→21:16)
[2025-06-15 06:47] LABS: Basophils # (Auto) 0.1 Thou/mm3 (0.0-0.2); Basophils % (Auto) 1 % (0-2.5); Eosinophils # (Auto) 0.3 Thou/mm3 (0.0-0.5); Eosinophils % (Auto) 3 % (0-10); Hematocrit 25.5 % (41.0-53.0); Immature Granulocytes Auto 0.06 Thou/mm3 (0.00-0.00); Lymphocytes # (Auto) 2.3 Thou/mm3 (1.0-4.8); Lymphocytes % (Auto) 22 % (10-50); Mean Corpuscular HGB Conc 31.4 g/dl (31.0-37.0); Mean Corpuscular Hemoglobin 27.0 pg (25.0-35.0); Mean Corpuscular Volume 86 fL (80-100); Monocytes # (Auto) 1.5 Thou/mm3 (0.0-0.8); Monocytes % (Auto) 15 % (0-12); Neutrophils # (Auto) 6.1 Thou/mm3 (1.8-7.7); Neutrophils % (Auto) 59 % (37-80); Nucleated Red Blood Cell # 0.00 Thou/mm3 (0.00-0.00); Nucleated Red Blood Cell % 0 /100 WBC (0); Platelet Count 536 Thou/mm3 (140-440); RDW Standard Deviation 52.8 fL (35.1-43.9); Red Blood Count 2.96 Miln/mm3 (4.50-5.90); White Blood Count 10.4 Thou/mm3 (3.8-10.6)
[2025-06-15 06:50] LABS: Hemoglobin 8.0 g/dL (13.5-16.0)
[2025-06-15 07:05] LABS: Alanine Aminotransferase 46 U/L (10-49); Albumin, Serum 3.9 gm/dL (3.5-5.0); Albumin/Globulin Ratio 1.8 (1.2-2.2); Alkaline Phosphatase 142 U/L (46-116); Anion Gap 12 (7-16); Aspartate Amino Transferase 37 U/L (0-34); BUN/Creatinine Ratio 18 Ratio (12-20); Bilirubin,Total 0.3 mg/dL (0.3-1.2); Blood Urea Nitrogen 11 mg/dL (9-23); Calcium 9.2 mg/dL (8.3-10.6); Calcium (Corrected) 9.3 mg/dL (8.5-10.1); Carbon Dioxide 27.6 mMol/L (20.0-31.0); Chloride 101 mMol/L (98-107); Creatinine (Component) 0.6 mg/dL (0.6-1.3); Estimated Creatinine Clearance 175.4 mL/min (>60); Globulin 2.2 gm/dL (2.3-3.5); Glucose 100 mg/dL (74-106); Magnesium 1.8 mg/dL (1.6-2.6); Osmolality,Calculated 280 (275-295); Phosphorous 5.3 mg/dL (2.4-5.1); Potassium 3.4 mMol/L (3.4-5.1); Sodium 141 mMol/L (136-145); Total Protein 6.1 gm/dL (5.7-8.2); eGFR > 60 See Note
[2025-06-15] MEDS: LANSOPRAZOLE 30 MG TAB.RAP.DR GT (08:34)
[2025-06-15] MEDS: levETIRAcetam LIQD 500 MG/5 ML UDC 750 MG GT ×2 (08:34→21:15)
[2025-06-15] MEDS: VALPROIC ACID SYRUP 250 MG/5 ML UDC 500 MG GT ×2 (08:35→21:14)
[2025-06-15] MEDS: SEVELAMER CARBONATE 0.8 GM PACKET (NON-FORMULARY) GT ×3 (08:35→16:43)
[2025-06-15] MEDS: POTASSIUM CHLORIDE 10% 20 MEQ/15 ML UDC 40 MEQ GT (08:50)
--- NOTE | 2025-06-15 09:01 | PC.SS ---
[employer] contacted patient's mother, Aruna Baltazar to schedule family meeting for 1:30 pm today. Patient's mother confirmed that she and patient's father will be present today at 1:30 pm. [employer] notified charge nurse and resident. [employer] utilized translation line to schedule appointment.
[2025-06-15] MEDS: HYDROmorphone INJ 2 MG/ML VIAL 0.5 MG IVP ×3 (11:34→19:39)
--- NOTE | 2025-06-15 12:03 | ESPR_ITS ---
<Statement entered by Kamlesh Baer MD - 06/16/25 16:12> Patient seen and examined at bedside. I discussed and supervised with the news internship physician who took care of this patient. I personally saw and examined the patient. I agree with most of the assessment and plan. Conversation held with family regarding LTAC placement. Family open, will discuss with social. Patient shows little change. Plan of care discussed with attending Dr. Ennis. Kamlesh Baer MD PGY-2 Documentation for date of: 06/15/25 Subjective Subjective Interval history: Overnight, patient became agitated overnight, pulled on trach.? Bilateral upper extremity restraints was placed. Clonazepam was back on 0.5mg QID. HR ranged from 89-167. Febrile Tmax 101.8. Unable to wean off propanolol at this time. Patient was calm and sleeping. Labs continued to showed mild transaminitis. Hgb 8.0 stable. Plan for family later this afternoon to discuss for the possibility of LTAC. Exam Vital Signs Temp Pulse Resp BP Pulse Ox O2 Del Method O2 Flow Rate 101.5 F H 122 H 24 H 135/71 H 100 Mechanical Ventilation 35 06/14/25 19:25 06/15/25 11:41 06/15/25 08:00 06/15/25 10:30 06/15/25 11:41 06/14/25 16:00 06/13/25 16:00 FiO2 25 06/15/25 10:30 Narrative Exam General: Trach and PEG tube in place. AAOx0, Non-verbal at baseline. Eyes sluggish. Intermittent grimace Eye: Normal conjunctiva, no scleral icterus Neck: Supple, non-tender, no JVD, no lymphadenopathy Lungs: Crackle breath sounds, symmetric chest rise, No wheezing, rhonchi Heart: Peripheral pulses intact bilaterally, Tachycardic Abdomen: Soft, non-tender, non-distended, no palpable masses Musculoskeletal: No cyanosis, No visible joint swelling, +1 Bilaterally upper extremities edema Skin: Skin is warm, dry, no rashes or lesions. Neuro: Cranial nerves II-XII grossly intact. Objective Labs 06/15/25 06:25 06/15/25 06:25 Labs: Laboratory Results - last 24 hr 06/15/25 06:25 WBC 10.4 D RBC 2.96 L Hgb 8.0 L Hct 25.5 L MCV 86 MCH 27.0 MCHC 31.4 RDW Std Deviation 52.8 H Plt Count 536 H D Neut % (Auto) 59 Lymph % (Auto) 22 [place] % (Auto) 15 H Eos % (Auto) 3 Baso % (Auto) 1 Neut # (Auto) 6.1 Lymph # (Auto) 2.3 [place] # (Auto) 1.5 H Eos # (Auto) 0.3 Baso # (Auto) 0.1 Immature Gran # (Auto) 0.06 H Absolute Nucleated RBC 0.00 Immature Gran % 1 H Nucleated RBC % 0 Sodium 141 Potassium 3.4 D Chloride 101 Carbon Dioxide 27.6 Anion Gap 12 BUN 11 Creatinine 0.6 Estim Creat Clear Calc 175.4 eGFR > 60 BUN/Creatinine Ratio 18 Glucose 100 Calculated Osmolality 280 Calcium 9.2 Corrected Calcium 9.3 Phosphorus 5.3 H Magnesium 1.8 Total Bilirubin 0.3 AST 37 H ALT 46 Alkaline Phosphatase 142 H Total Protein 6.1 Albumin 3.9 Globulin 2.2 L Albumin/Globulin Ratio 1.8 ABG Interpretation ABG results: 05/09/25 05/09/25 05/09/25 11:56 13:40 18:50 ABG pH 7.40 7.27 L D 7.28 L ABG pCO2 40 43 55 H D ABG pO2 131 H 53 L* D 70 L ABG HCO3 25 20 26 ABG O2 Saturation 99 H 81 L 92 ABG Base Excess 0 -7 L -2 VBG pH VBG pCO2 VBG pO2 VBG Base Excess 05/10/25 05/11/25 05/12/25 00:14 05:06 01:18 ABG pH 7.35 7.33 L 7.39 ABG pCO2 42 D 54 H D 48 ABG pO2 103 D 93 94 ABG HCO3 23 28 H 29 H ABG O2 Saturation 99 H 98 98 ABG Base Excess -3 2 3 VBG pH VBG pCO2 VBG pO2 VBG Base Excess 05/12/25 05/12/25 05/13/25 03:58 11:50 05:10 ABG pH 7.46 H 7.39 7.19 L* D ABG pCO2 41 48 60 H D ABG pO2 105 58 L* D 114 H D ABG HCO3 29 H 29 H 23 ABG O2 Saturation 99 H 90 L 98 ABG Base Excess 5 H 4 H -6 L VBG pH VBG pCO2 VBG pO2 VBG Base Excess 05/17/25 05/18/25 05/19/25 01:30 04:09 04:43 ABG pH 7.38 7.43 7.47 H ABG pCO2 46 44 43 ABG pO2 90 83 80 L ABG HCO3 27 H 29 H 31 H ABG O2 Saturation 98 97 97 ABG Base Excess 2 5 H 7 H VBG pH VBG pCO2 VBG pO2 VBG Base Excess 05/21/25 05/21/25 05/31/25 04:18 06:33 08:06 ABG pH 7.37 D 7.46 H ABG pCO2 50 H 38 D ABG pO2 40 L* D 121 H D ABG HCO3 29 H 27 H ABG O2 Saturation 66 L 100 H ABG Base Excess 3 3 VBG pH 7.55 VBG pCO2 31 L VBG pO2 144 H VBG Base Excess 5 H 06/05/25 06/05/25 06/06/25 13:37 23:46 05:20 ABG pH 7.47 H 7.45 ABG pCO2 35 38 ABG pO2 200 H 54 L* D ABG HCO3 25 26 ABG O2 Saturation 101 H 89 L ABG Base Excess 2 2 VBG pH 7.50 VBG pCO2 34 L VBG pO2 90 H VBG Base Excess 4 H 06/10/25 17:41 ABG pH ABG pCO2 ABG pO2 ABG HCO3 ABG O2 Saturation ABG Base Excess VBG pH 7.40 VBG pCO2 43 VBG pO2 43 VBG Base Excess 2 Quality Measures Quality Measures VTE prophylaxis (SCDs) and sepsis Current suspected stage: sepsis (Resolved) Possible source: pulmonary Blood cultures ordered: yes Antibiotic ordered: Yes Assessment & Plan Assessment Current Active Medications: Generic Name Dose Route Start Last Admin Trade Name Freq PRN Reason Stop Dose Admin Acetaminophen 325 mg 06/09/25 18:19 06/14/25 17:54 Acetaminophen Racquel 325 Mg/10 Ml Udc GT 07/09/25 16:12 325 mg Q4HR PRN Administration pain (1-3) or fever > 100.4 Clonazepam 0.5 mg 06/14/25 21:00 06/15/25 11:59 Clonazepam 0.5 Mg Tablet PO 06/19/25 20:59 0.5 mg QID KYA Administration Deutetrabenazine 9 mg 06/14/25 08:00 06/15/25 08:36 Deutetrabenazine 6 Mg Tablet (Non-Formulary) GT 07/14/25 07:59 9 mg BIDWM KYA Administration Ferrous Sulfate 325 mg 06/01/25 09:00 06/15/25 08:34 Ferrous Sulfate 300 Mg/5 Ml Udc PO 07/01/25 08:59 325 mg QOD KYA Administration Heparin Sodium (Porcine) 5,000 unit 06/08/25 14:00 06/15/25 05:57 Heparin Sod Inj 5000 Unit/Ml Vial SC 06/22/25 13:59 5,000 unit Q8HR KYA Administration Hydromorphone HCl 0.5 mg 06/10/25 06:56 06/15/25 11:34 Hydromorphone Inj 2 Mg/Ml Vial IVP 06/19/25 06:55 0.5 mg Q4HR PRN Administration BREAKTHROUGH PAIN Protocol Piperacillin Sod/Tazobactam 100 mls @ 200 mls/hr 06/05/25 14:00 06/15/25 05:57 Sod 4.5 gm/ Sodium Chloride IV 06/18/25 13:59 200 mls/hr Q8HR KYA Administration Protocol Lansoprazole 30 mg 05/28/25 09:00 06/15/25 08:34 Lansoprazole 30 Mg Tab. GT 06/27/25 08:59 30 mg QDAY KYA Administration Levetiracetam 750 mg 05/30/25 09:00 06/15/25 08:34 Levetiracetam Liqd 500 Mg/5 Ml Udc GT 06/29/25 08:59 750 mg BID KYA Administration Midazolam HCl 4 mg 06/12/25 16:40 06/14/25 17:27 Midazolam Inj 1 Mg/Ml Vial 2 Ml IVP 06/17/25 17:59 4 mg Q2HR PRN Administration Agitation or pain Protocol Ondansetron HCl 4 mg 05/27/25 14:37 Ondansetron Odt 4 Mg Tabrap GT 06/26/25 14:36 Q6HR PRN NAUSEA OR VOMITING Protocol Oxycodone HCl 10 mg 06/12/25 11:47 06/15/25 05:59 Oxycodone Hcl 5 Mg Ir Tab GT 06/21/25 15:44 10 mg TID KYA Administration Phenobarbital 129.6 mg 06/12/25 11:47 06/15/25 05:59 Phenobarbital 32.4 Mg Tablet GT 06/24/25 14:44 129.6 mg TID KYA Administration Propranolol HCl 5 mg 06/12/25 14:00 06/15/25 05:58 Propranolol 10 Mg Tablet GT 07/12/25 13:59 5 mg TID KYA Administration Sevelamer Carbonate 0.8 gm 06/11/25 09:00 06/15/25 11:59 Sevelamer Carbonate 0.8 Gm Packet (Non-Formulary) GT 07/11/25 08:59 0.8 gm TIDWM YKA Administration Sodium Chloride 3 ml 05/17/25 11:43 Sodium Chloride Rt Racquel 0.9% 3 Ml Nebu INH 06/16/25 11:42 PRN PRN SOLN Sterile Water 10 ml 06/14/25 17:30 06/15/25 08:36 Water, Sterile Inj 50 Ml Vial GT 07/14/25 17:29 10 ml BIDWM KYA Administration Protocol Valproic Acid 500 mg 06/10/25 09:00 06/15/25 08:35 Valproic Acid Syrup 250 Mg/5 Ml Udc GT 07/10/25 08:59 500 mg BID KYA Administration Plan 24-year-old male with cerebral palsy, asthma, seizure disorder, chronic mastoiditis, recurrent pneumonia, and chronic PEG tube dependence presented with fever and seizure, was admitted for sepsis workup, and later transferred to the ICU for intubation due to concerns about airway protection. Patient has been downgraded from ICU to tele on 05/31/2025; however, re-upgraded to ICU on 06/05 due to tachycardia in 160s, tachypnea, persistent fever, and ventilator asynchrony. #Agitation Differential diagnosis: ICU acquired delirium, opiate withdrawal, delirium Diagnostic workup: - Patient was weaned off of sedation and was downgraded to telemetry, however as sedatives were down titrated and telemetry patient had episode of severe agitation and ventilator asynchrony and was upgraded to ICU for further intervention. - EEG 05/11 unremarkable. Repeat EEG 05/20 showed electrographic seizure activity. Continuous EEG 05/22-05/23: no seizure activity or status epilepticus. Repeat EEG 06/05 negative for seizure activity. - MRI brain 05/23: showed chronic infections, no acute pathology. - Cisatracurium gtt discontinued - Versed gtt discontinued Treatment: - Phenobarbital 129.6 mg three times daily - Back on Clonazepam 0.5 mg four times daily - Oxycodone 10 mg three times daily - Hold orders were added for respiratory rate <14, heart rate <70, or BP <100/60 for the above 3 meds Follow-up: - Use Versed 4 mg pushes every hour as needed #Goal of care Chronic trach and PEG, currently on heavy sedation. Consult Sub-acute, Dr. Major, appreciate recs: Given patient's medical history and current condition, patient is more appropriate for LTAC if cannot wean off current sedation regimen. Plan: - Family meeting to discuss plan of care. #Tardive dyskinesia Diagnostic workup: - Nonpurposeful twisting movements of the patient's upper extremity with recurrent grimaces noted on 06/10 when the patient was taken off sedation - Patient's family notes that the patient has had a long history of nonpurposeful movement and has been previously prescribed deutetrabenazine for management by his neurologist - Per ICU, if deutetrabenazine remains ineffective, will increase to 12 mg twice daily after 1 week of starting the medication, may take up to 4 weeks to see maximal effect Treatment: - Discontinued home Seroquel 50 mg in the morning and 100 mg at night due to tardive dyskinesia - Deutetrabenazine 9 mg twice daily #Sepsis #Bilateral chronic mastoiditis #Sinusitis #Bilateral otitis media #Bilateral otitis externa #Brittney parapsilosis #Community Acquired Pneumonia #UTI, E.coli, ESBL #Pseudomonas aeruginosa, sputum positive #Mucus plugs, right upper lung and left lower lung ? -History of chronic mastoiditis. -Met SIRS criteria on admission: T 105F, HR 176, RR 26, PaCO2 26, WBC 16.3. -Head CT (05/08/2025): prominent sphenoid ethmoid maxillary antral sinusitis, bilateral chronic mastoiditis, bilateral otitis media. -CT Orbit Sella Inner (05/08/2025): severe bilateral chronic mastoiditis, bilateral otitis externa and otitis media, bilateral cholesteatomas in the attics. -CXR (05/09/2025): Bilateral Perihilar Pneumonia. CXR (05/13/2025): Extensive Bilateral Pneumonia, CXR(05/19/2025): Significant bilateral Pneumonia -CT Chest/abd/pelvis (05/16/2025): Extensive bilateral pneumonia, Cystitis pattern, Cholelithiasis -A repeat Cocci serology test was negative -Lumbar puncture(05/10/2025): clear, WBC 3, glucose 70, total protein 25. CSF testing negative. -Respiratory viral panel (05/10/2025): rhinovirus/enterovirus and human metapneumovirus detected. -UA 05/08 and 05/16 negative. [Culture Hx] -1st Blood Cx (05/08): No growth for 5 days. 2nd Blood Cx (05/11): No growth for 5 days, 3rd Blood Cx (05/16): No growth for 5 days, 4th Blood Cx (06/01): No growth for 48hrs -1st Sputum Cx (05/09): Pseudomonas aeruginosa (only sensitive to Meropenem, Tobramycin). 2nd Sputum Cx (05/13): Mixed oral hamilton. 3rd Sputum Cx (05/19): Mixed oral hamilton, 4th Sputum Cx (05/20): Brittney albicans, 5th Sputum Cx (06/01): GNR -CSF Cx (05/10): No growth for 3 days -Left Ear Cx (05/12): Brittney parapsilosis -Right Ear Cx(05/12): E.coli, ESBL (only sensitive to Ertapenem, Meropenem, Zosyn) -Urine Cx (06/01): E.coli, ESBL (only sensitive to Ertapenem, Meropenem, Nitrofurantoin, Zosyn) -Sputum culture 06/05 shows sensitive to Zosyn and intermittent resistance to cefepime [Antibiotics/Antifungal Hx] IV Zosyn 3.375g x1 (at 05/08) IV Ceftriaxone 1g x1 (at 05/08) IV Acyclovir 640mg q8hr (05/08-05/11) since LP negative. IV Ceftriaxone 2g q12hr (05/08-05/11) IV Vancomycin qd (05/08-05/11) since MRSA screen is negative Ofloxacin Opt racquel 0.3% 5 drops Both ears bid (05/09-05/18, 05/21-05/31) IV Meropenem 1000mg q8hr (05/12-05/22, 05/24-05/25) IV Doxycycline (05/16-05/18) IV Micafungin 100mg qd (05/28-05/30, 06/01-06/03) Ciprofloxacin Op Racquel 0.3% ear drops (06/02-06/03) -CXR is showing pneumonia, but CXR often remain abnormal for days to weeks. The infiltrate or consolidation can persist even though the infection has cleared. The radiographic improvement can take up to 4-6 weeks.? Patient is on minimal ventilator setting, oxygen requirement is stable, and has completed antibiotics course. -UTI unlikely sources of infection given low number of colonies and long antibiotics treatment in ICU. -Per ENT, Dr. Ojeda, patient does not have acute coalescent mastoiditis in either ear. Left and right middle ear is also not filled with effusion. -Chest x-ray 06/07 AM, showed a left lower lobe consolidation, ddx left lower lobe pneumonia versus mucous plug versus left pleural effusion versus mucous plug versus atelectasis lung ultrasound at bedside, effusion ruled out, no hepatization of the lung noted. Bedside bronchoscopy showed left lower lobe mucous plug, cleared with deep suction Plan: - Currently on IV Zosyn 06/05- planned until 06/18 for 14-day course coverage of Pseudomonas IV Zosyn 3.375g x1 (at 05/08) IV Ceftriaxone 1g x1 (at 05/08) IV Acyclovir 640mg q8hr (05/08-05/11) IV Ceftriaxone 2g q12hr (05/08-05/11) IV Vancomycin qd (05/08-05/11) since MRSA screen is negative IV Meropenem 1000mg q8hr (05/12-05/22, 05/24-05/25) IV Doxycycline (05/16-05/18) IV Micafungin 100mg qd (05/28-05/30, 06/01-06/03) IV fluconazole 06/05-06/07 Follow-up: - Once weaned off sedation and patient has cough reflex intact and more awake/alert, will consider chest physiotherapy. #Phimosis s/p dorsal slit procedure 06/08/2025 #Paraphimosis (resolved) #Balanitis (resolved) Diagnostic workup: - Edema and tenderness of the glans penis, Swelling of the distal retracted foreskin, Constricting band of tissue proximal to the head of the penis at the coronal sulcus on presentation, s/p reduction of the paraphimosis by urologist Dr. Vargas on 05/09 and phimosis dorsal slit on 06/08 Treatment: - Dilaudid 0.5 mg IVP every 4 hours as needed for breakthrough pain - Monitor for worsening swelling, bleeding, or blockage of urine #Seizure disorder by history #Cerebral palsy by history Diagnostic workup: - Active seizure disorder ruled out, multiple EEGs negative for seizure activity Treatment: - Continue Depakote 250 mg GT every 8 hours and Keppra 750 mg GT twice daily #Sinus tachycardia Differential diagnosis: Infection, hypersympathetic activity Diagnostic workup: - Did have positive sputum and urine culture for Pseudomonas and ESBL respectively - Patient's last fever was 06/12/2025 05:46 - Echocardiogram was obtained to rule out any vegetations TTE shows normal systolic function, EF 55 to 60%, diastolic dysfunction grade 1, no evidence of vegetation or endocarditis Treatment: - Downtitrated propranolol 10 mg to 5 mg 3 times daily - Continue antibiotics - Monitor for fever, use ibuprofen as needed for fever episode - Telemetry monitoring - Plan to titrate off propranolol completely in 3 days #Elevated alkaline phosphatase, improving #Low PTH #Abnormal nuclear medicine bone scan Differential diagnosis: increased osteoblastic activity in setting of vegetative state, bone infection (particularly of left mastoid), hypoparathyroidism, osteoarthritis Diagnostic workup: - PTH intact low at 3.6, calcium 9.9, vitamin D 25-OH 18.1 - Renal function intact, at baseline - Nuclear medicine bone scan shows minor asymmetric uptake left knee and mild increased uptake mid left tibia - Knee x-ray 06/06 and tibia-fibula x-ray 06/06 showed no findings diagnostic for osseous metastatic disease - MRI left leg 06/08 images severely degraded by continuous patient motion - No pain to palpation of bilateral lower extremities Treatment: - Continue sevelamer 800 mg 3 times daily - Patient to follow up on abnormal imaging outpatient #Tongue Laceration, traumatic #Gingivial Bleeding, Oral Trauma Diagnostic workup: -Known to have episodes of jaw spasms and teeth clenching with agitation. Had significant trauma to gums and tongue due to clenching of teeth 06/06 - No further bleeding appreciated in oral mucosa Treatment: - Patient required cisatracurium to relax jaw, pressure was applied locally, oral packing none, injections of lido?epinephrine x 3 to gums on 06/06 night Follow-up: - Monitor for bleeding #Bronchospasm #History of asthma -Magnesium for bronchodilator effect as needed. -Albuterol and Ipratropium as needed. #Failed extubation 05/12 #Acute hypoxic respiratory failure s/p tracheostomy #Ventilator dependent -Patient underwent tracheostomy on 05/26/2025 -Chest physiotherapy daily #Chronic PEG tube dependence -Nepro 1.8 Christ 1L RTH -Pro Stat Sugar Free 30 ml #Hyperphosphatemia -Sevelamer 1g GT 3 times daily, adjust if needed. #Normocytic Anemia #Leukocytosis-Resolving #Maculopapular rash to the buttocks-Resolving #Acute urinary retention-Resolved #Hypoalbuminemia-Resolved #Hyperkalemia-Resolved #Acute kidney injury-Resolved #Anion Gap Metabolic Acidosis-Resolved #Acute nonocclusive thrombus in the left brachial vein-Resolved Disposition: Tele Diet: Nepro 1.8 Christ 1L RTH and Pro Stat Sugar Free 30 ml GI prophylaxis: Lansoprazole 30mg GT qd DVT prophylaxis: SCDs,[id number] SC BID due to bleeding Code: FULL Assessment and plan discussed with my attending physician Dr. Ennis and Dr. Cross (PGY-2) Dr. Molina (PGY-1) - residential case manager Attending Provider Attestation/Addendum I have seen and examined the patient. I was physically present for the luke portions of the services provided including history, physical exam, diagnosis, treatment plans and orders. I agree with assessment and plan of care as documented by residents. Patient seen and examined at bedside this morning. Has episodes of agitation time to time. Vital signs remained stable with periods of tachycardia and tachypnea when he becomes agitated. Lab results have been mostly stable. Continues to be on pressor support, 8 PEEP. With patient being agitated, we will go back to his previous regimen for anxiolytics and analgesics. Patient also had episodes of fever in the evening with temperature going up to 101.8 ?F. Patient remains on IV Zosyn for Pseudomonas pneumonia. With extensive course of broad-spectrum IV antibiotics, suspicion for infectious source for fever remains low but source of fever is unclear, possibly secondary to withdrawal from sedatives, movement disorder. Continues to be on deutetrabenazine 9 mg twice daily. Had a family meeting this afternoon with electrical engineering drafting officer, internal medicine team, [employer]. Explained to the patient, weaning of the analgesics and anxiolytics might be slow and patient may need LTAC placement. Stated discussion with Dr. Major regarding subacute placements and his recommendation of LTAC placement. Family stated they will have discussion and will inform us about their decision. Even though this this note was carefully revised there may still be minor errors in belt brander due to voice recognition software. Jose Ennis MD
[2025-06-15] MEDS: MIDAZOLAM INJ 1 MG/ML VIAL 2 ML 4 MG IVP ×3 (14:38→23:34)
--- NOTE | 2025-06-15 15:00 | ESPR_ITS ---
Subjective Subjective Interval history: fevers continue as of this am but no more sz noted. moved out of icu Exam Vital Signs Temp Pulse Resp BP Pulse Ox O2 Del Method O2 Flow Rate 98.0 F 126 H 28 H 109/67 97 Mechanical Ventilation 35 06/15/25 12:00 06/15/25 13:43 06/15/25 12:00 06/15/25 13:43 06/15/25 12:00 06/15/25 12:00 06/15/25 12:00 FiO2 25 06/15/25 12:00 Objective - Internal Medicine Labs 06/15/25 06:25 06/15/25 06:25 Labs: Laboratory Results - last 24 hr 06/15/25 06:25 WBC 10.4 D RBC 2.96 L Hgb 8.0 L Hct 25.5 L MCV 86 MCH 27.0 MCHC 31.4 RDW Std Deviation 52.8 H Plt Count 536 H D Neut % (Auto) 59 Lymph % (Auto) 22 [place]ulloch % (Auto) 15 H Eos % (Auto) 3 Baso % (Auto) 1 Neut # (Auto) 6.1 Lymph # (Auto) 2.3 [place]ulloch # (Auto) 1.5 H Eos # (Auto) 0.3 Baso # (Auto) 0.1 Immature Gran # (Auto) 0.06 H Absolute Nucleated RBC 0.00 Immature Gran % 1 H Nucleated RBC % 0 Sodium 141 Potassium 3.4 D Chloride 101 Carbon Dioxide 27.6 Anion Gap 12 BUN 11 Creatinine 0.6 Estim Creat Clear Calc 175.4 eGFR > 60 BUN/Creatinine Ratio 18 Glucose 100 Calculated Osmolality 280 Calcium 9.2 Corrected Calcium 9.3 Phosphorus 5.3 H Magnesium 1.8 Total Bilirubin 0.3 AST 37 H ALT 46 Alkaline Phosphatase 142 H Total Protein 6.1 Albumin 3.9 Globulin 2.2 L Albumin/Globulin Ratio 1.8 ABG Interpretation ABG results: 05/09/25 05/09/25 05/09/25 11:56 13:40 18:50 ABG pH 7.40 7.27 L D 7.28 L ABG pCO2 40 43 55 H D ABG pO2 131 H 53 L* D 70 L ABG HCO3 25 20 26 ABG O2 Saturation 99 H 81 L 92 ABG Base Excess 0 -7 L -2 VBG pH VBG pCO2 VBG pO2 VBG Base Excess 05/10/25 05/11/25 05/12/25 00:14 05:06 01:18 ABG pH 7.35 7.33 L 7.39 ABG pCO2 42 D 54 H D 48 ABG pO2 103 D 93 94 ABG HCO3 23 28 H 29 H ABG O2 Saturation 99 H 98 98 ABG Base Excess -3 2 3 VBG pH VBG pCO2 VBG pO2 VBG Base Excess 05/12/25 05/12/25 05/13/25 03:58 11:50 05:10 ABG pH 7.46 H 7.39 7.19 L* D ABG pCO2 41 48 60 H D ABG pO2 105 58 L* D 114 H D ABG HCO3 29 H 29 H 23 ABG O2 Saturation 99 H 90 L 98 ABG Base Excess 5 H 4 H -6 L VBG pH VBG pCO2 VBG pO2 VBG Base Excess 05/17/25 05/18/25 05/19/25 01:30 04:09 04:43 ABG pH 7.38 7.43 7.47 H ABG pCO2 46 44 43 ABG pO2 90 83 80 L ABG HCO3 27 H 29 H 31 H ABG O2 Saturation 98 97 97 ABG Base Excess 2 5 H 7 H VBG pH VBG pCO2 VBG pO2 VBG Base Excess 05/21/25 05/21/25 05/31/25 04:18 06:33 08:06 ABG pH 7.37 D 7.46 H ABG pCO2 50 H 38 D ABG pO2 40 L* D 121 H D ABG HCO3 29 H 27 H ABG O2 Saturation 66 L 100 H ABG Base Excess 3 3 VBG pH 7.55 VBG pCO2 31 L VBG pO2 144 H VBG Base Excess 5 H 06/05/25 06/05/25 06/06/25 13:37 23:46 05:20 ABG pH 7.47 H 7.45 ABG pCO2 35 38 ABG pO2 200 H 54 L* D ABG HCO3 25 26 ABG O2 Saturation 101 H 89 L ABG Base Excess 2 2 VBG pH 7.50 VBG pCO2 34 L VBG pO2 90 H VBG Base Excess 4 H 06/10/25 17:41 ABG pH ABG pCO2 ABG pO2 ABG HCO3 ABG O2 Saturation ABG Base Excess VBG pH 7.40 VBG pCO2 43 VBG pO2 43 VBG Base Excess 2 Assessment & Plan A&P Narrative viral findings on pcr testing at health de[facility]. cmv pos in initially, repeat noted not that striking resp failure fuo procal neg 06/02 procal insensitive to fungal antigens I am ok with him off many meds entirely. procal has mostly been neg for a long time now so value of more abx seems low.and despite icu insistence. it looks like the response to zosyn rx is absent. and procal and cxr neg the other day would not target the cmv. tests suggest old cmv and ebv value of rx seems low. hardest thing to do is stop meds but that is often what is needed. prognosis guarded with continued vent needs hiv and hep c neg sadly, this may be all drug related fever but hardest thing to do is stop meds not all fevers are infectious fever but that strategy seems favored by icu team hence the abx. I will see again prn as I have been pushing for cessation for several days unsuccessfully Time Spent With Patient Time: Total time spent is greater than 50% in coordination of care (as documented) at patient's floor/unit and/or counseling patient:
--- NOTE | 2025-06-15 15:48 | PC.SS ---
Family meeting conducted with patient's parents, Dr. Georges, Dr. Blanchard and [employer]. Car Sander utilized to assist with discussion. Medical team provided an overview on patient's treatment plan. Medical team informed parents that due to the patient's level of sedation and continued ventilator support transition to LTAC appropriate vs transition to Sub-Acute. Medical team informed parents that Sub-Acute Dr. Major recommending LTAC placement. [employer] informed patient's parents that LTAC facilities out of area. Locations are [facility] and [facility]. Medical team to update [employer] when patient will be medically stable for LTAC placement.
[2025-06-15] MEDS: IBUPROFEN SUSP 100 MG/5 ML UDC GT (15:54)
[2025-06-15] MEDS: ACETAMINOPHEN SOL 325 MG/10 ML UDC GT (17:26)
--- NOTE | 2025-06-15 19:03 | PD.RESPRO ---
Documentation for date of: 06/15/25 Subjective Subjective Interval history: Patient seen today at the bedside found awake, calm in bed. Vitals and labs reviewed. Patient continued to have fevers origin unknown at this time. He continues to have episodes of agitation and/or movement disorders requiring versed pushes throughout the day. Clonazepam switched back to QID per primary team. Exam Vital Signs Temp Pulse Resp BP Pulse Ox O2 Del Method O2 Flow Rate 102 F H 135 H 45 H 122/71 100 Mechanical Ventilation 35 06/15/25 17:26 06/15/25 16:00 06/15/25 16:00 06/15/25 16:00 06/15/25 16:00 06/15/25 16:00 06/15/25 16:00 FiO2 25 06/15/25 16:00 Narrative Exam Physical Exam GENERAL: calm, trached and peg tube in place, HEENT: Moist mucosa. Eyes open, symmetrical, & clear CARDIO: Heart RRR, no obvious murmurs PULM: No noted coughing/dyspnea CTA B/L, no R/W/R GI: Abdomen soft, nondistended, no pain on palpation. BSx4 SKIN/MSK/EXT: No wounds/rashes/edema/amputations, no pain on palpation. Pedal pulses present B/L NEURO: able to move all 4 extremities Objective Labs 06/17/25 04:22 06/17/25 04:22 Labs: Laboratory Results - last 24 hr 06/15/25 06:25 WBC 10.4 D RBC 2.96 L Hgb 8.0 L Hct 25.5 L MCV 86 MCH 27.0 MCHC 31.4 RDW Std Deviation 52.8 H Plt Count 536 H D Neut % (Auto) 59 Lymph % (Auto) 22 Mchenry % (Auto) 15 H Eos % (Auto) 3 Baso % (Auto) 1 Neut # (Auto) 6.1 Lymph # (Auto) 2.3 Mchenry # (Auto) 1.5 H Eos # (Auto) 0.3 Baso # (Auto) 0.1 Immature Gran # (Auto) 0.06 H Absolute Nucleated RBC 0.00 Immature Gran % 1 H Nucleated RBC % 0 Sodium 141 Potassium 3.4 D Chloride 101 Carbon Dioxide 27.6 Anion Gap 12 BUN 11 Creatinine 0.6 Estim Creat Clear Calc 175.4 eGFR > 60 BUN/Creatinine Ratio 18 Glucose 100 Calculated Osmolality 280 Calcium 9.2 Corrected Calcium 9.3 Phosphorus 5.3 H Magnesium 1.8 Total Bilirubin 0.3 AST 37 H ALT 46 Alkaline Phosphatase 142 H Total Protein 6.1 Albumin 3.9 Globulin 2.2 L Albumin/Globulin Ratio 1.8 ABG Interpretation ABG results: 05/09/25 05/09/25 05/09/25 11:56 13:40 18:50 ABG pH 7.40 7.27 L D 7.28 L ABG pCO2 40 43 55 H D ABG pO2 131 H 53 L* D 70 L ABG HCO3 25 20 26 ABG O2 Saturation 99 H 81 L 92 ABG Base Excess 0 -7 L -2 VBG pH VBG pCO2 VBG pO2 VBG Base Excess 05/10/25 05/11/25 05/12/25 00:14 05:06 01:18 ABG pH 7.35 7.33 L 7.39 ABG pCO2 42 D 54 H D 48 ABG pO2 103 D 93 94 ABG HCO3 23 28 H 29 H ABG O2 Saturation 99 H 98 98 ABG Base Excess -3 2 3 VBG pH VBG pCO2 VBG pO2 VBG Base Excess 05/12/25 05/12/25 05/13/25 03:58 11:50 05:10 ABG pH 7.46 H 7.39 7.19 L* D ABG pCO2 41 48 60 H D ABG pO2 105 58 L* D 114 H D ABG HCO3 29 H 29 H 23 ABG O2 Saturation 99 H 90 L 98 ABG Base Excess 5 H 4 H -6 L VBG pH VBG pCO2 VBG pO2 VBG Base Excess 05/17/25 05/18/25 05/19/25 01:30 04:09 04:43 ABG pH 7.38 7.43 7.47 H ABG pCO2 46 44 43 ABG pO2 90 83 80 L ABG HCO3 27 H 29 H 31 H ABG O2 Saturation 98 97 97 ABG Base Excess 2 5 H 7 H VBG pH VBG pCO2 VBG pO2 VBG Base Excess 05/21/25 05/21/25 05/31/25 04:18 06:33 08:06 ABG pH 7.37 D 7.46 H ABG pCO2 50 H 38 D ABG pO2 40 L* D 121 H D ABG HCO3 29 H 27 H ABG O2 Saturation 66 L 100 H ABG Base Excess 3 3 VBG pH 7.55 VBG pCO2 31 L VBG pO2 144 H VBG Base Excess 5 H 06/05/25 06/05/25 06/06/25 13:37 23:46 05:20 ABG pH 7.47 H 7.45 ABG pCO2 35 38 ABG pO2 200 H 54 L* D ABG HCO3 25 26 ABG O2 Saturation 101 H 89 L ABG Base Excess 2 2 VBG pH 7.50 VBG pCO2 34 L VBG pO2 90 H VBG Base Excess 4 H 06/10/25 17:41 ABG pH ABG pCO2 ABG pO2 ABG HCO3 ABG O2 Saturation ABG Base Excess VBG pH 7.40 VBG pCO2 43 VBG pO2 43 VBG Base Excess 2 Quality Measures Quality Measures VTE prophylaxis (SCDs) and sepsis Current suspected stage: ruled out Possible source: pulmonary Blood cultures ordered: yes Antibiotic ordered: Yes Assessment & Plan Assessment Current Active Medications: Generic Name Dose Route Start Last Admin Trade Name Freq PRN Reason Stop Dose Admin Acetaminophen 325 mg 06/09/25 18:19 06/15/25 17:26 Acetaminophen Racquel 325 Mg/10 Ml Udc GT 07/09/25 16:12 325 mg Q4HR PRN Administration pain (1-3) or fever > 100.4 Clonazepam 0.5 mg 06/14/25 21:00 06/15/25 16:44 Clonazepam 0.5 Mg Tablet PO 06/19/25 20:59 0.5 mg QID KYA Administration Deutetrabenazine 9 mg 06/14/25 08:00 06/15/25 16:43 Deutetrabenazine 6 Mg Tablet (Non-Formulary) GT 07/14/25 07:59 9 mg BIDWM KYA Administration Ferrous Sulfate 325 mg 06/01/25 09:00 06/15/25 08:34 Ferrous Sulfate 300 Mg/5 Ml Udc PO 07/01/25 08:59 325 mg QOD KYA Administration Heparin Sodium (Porcine) 5,000 unit 06/08/25 14:00 06/15/25 13:42 Heparin Sod Inj 5000 Unit/Ml Vial SC 06/22/25 13:59 5,000 unit Q8HR KYA Administration Hydromorphone HCl 0.5 mg 06/10/25 06:56 06/15/25 15:41 Hydromorphone Inj 2 Mg/Ml Vial IVP 06/19/25 06:55 0.5 mg Q4HR PRN Administration BREAKTHROUGH PAIN Protocol Piperacillin Sod/Tazobactam 100 mls @ 200 mls/hr 06/05/25 14:00 06/15/25 13:41 Sod 4.5 gm/ Sodium Chloride IV 06/18/25 13:59 200 mls/hr Q8HR KYA Administration Protocol Ibuprofen 100 mg 06/15/25 15:47 Ibuprofen Susp 100 Mg/5 Ml Udc GT 07/15/25 15:46 Q6HR PRN PAIN 1-3 OR FEVER > 101 Protocol Lansoprazole 30 mg 05/28/25 09:00 06/15/25 08:34 Lansoprazole 30 Mg Tab.Rap.Dr GT 06/27/25 08:59 30 mg QDAY KYA Administration Levetiracetam 750 mg 05/30/25 09:00 06/15/25 08:34 Levetiracetam Liqd 500 Mg/5 Ml Udc GT 06/29/25 08:59 750 mg BID KYA Administration Midazolam HCl 4 mg 06/12/25 16:40 06/15/25 17:27 Midazolam Inj 1 Mg/Ml Vial 2 Ml IVP 06/17/25 17:59 4 mg Q2HR PRN Administration Agitation or pain Protocol Ondansetron HCl 4 mg 05/27/25 14:37 Ondansetron Odt 4 Mg Tabrap GT 06/26/25 14:36 Q6HR PRN NAUSEA OR VOMITING Protocol Oxycodone HCl 10 mg 06/12/25 11:47 06/15/25 13:42 Oxycodone Hcl 5 Mg Ir Tab GT 06/21/25 15:44 10 mg TID KYA Administration Phenobarbital 129.6 mg 06/12/25 11:47 06/15/25 13:42 Phenobarbital 32.4 Mg Tablet GT 06/24/25 14:44 129.6 mg TID KYA Administration Propranolol HCl 5 mg 06/12/25 14:00 06/15/25 13:43 Propranolol 10 Mg Tablet GT 07/12/25 13:59 5 mg TID KYA Administration Sevelamer Carbonate 0.8 gm 06/11/25 09:00 06/15/25 16:43 Sevelamer Carbonate 0.8 Gm Packet (Non-Formulary) GT 07/11/25 08:59 0.8 gm TIDWM KYA Administration Sodium Chloride 3 ml 05/17/25 11:43 Sodium Chloride Rt Racquel 0.9% 3 Ml Nebu INH 06/16/25 11:42 PRN PRN SOLN Sterile Water 10 ml 06/14/25 17:30 06/15/25 16:45 Water, Sterile Inj 50 Ml Vial GT 07/14/25 17:29 10 ml BIDWM KYA Administration Protocol Valproic Acid 500 mg 06/10/25 09:00 06/15/25 08:35 Valproic Acid Syrup 250 Mg/5 Ml Udc GT 07/10/25 08:59 500 mg BID KYA Administration Plan 24-year-old male with cerebral palsy, asthma, seizure disorder, chronic mastoiditis, recurrent pneumonia, and chronic PEG tube dependence presented with fever and seizure, was admitted for sepsis workup, and later transferred to the ICU for intubation due to concerns about airway protection. Patient has been downgraded from ICU to tele on 05/31/2025; however, re-upgraded to ICU on 06/05 due to tachycardia in 160s, tachypnea, persistent fever, and ventilator asynchrony. 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 EEG 05/11 unremarkable. Repeat EEG 05/20 showed electrographic seizure activity. Continuous EEG 05/22-05/23: no seizure activity or status epilepticus. Repeat EEG 06/05 negative for seizure activity. MRI brain: no acute pathology. - continue Austedo 9mg BID - Continue Phenobarbital 129.6 mg three times daily, Clonazepam 0.5 mg 4 times daily, Oxycodone 10 mg three times daily - Continue Valproic acid 500 mg GT BID and Keppra 750 mg GT twice daily - Continue lansoprazole 30mg qday - Versed 4 mg pushes every hour as needed #Sepsis #Bilateral chronic mastoiditis #Bilateral otitis media/otitis externa #Community Acquired Pneumonia #UTI, E.coli, ESBL #Pseudomonas aeruginosa, sputum positive #Mucus plugs, right upper lung and left lower lung ? #Paraphimosis (resolved) #Balanitis (resolved) #Sinus tachycardia #Gingivial Bleeding, Oral Trauma #Bronchospasm #History of asthma #Acute hypoxic respiratory failure s/p tracheostomy #Normocytic Anemia #Leukocytosis-Resolving #Maculopapular rash to the buttocks-Resolving #Acute kidney injury-Resolved #Anion Gap Metabolic Acidosis-Resolved #Acute nonocclusive thrombus in the left brachial vein-Resolved - as per primary team Case discussed with my attending Dr. Precious Cole MD PGY-2 Attending Provider Attestation/Addendum I personally have seen and examined the patient at the bedside and agreed with resident's findings, assessment and plan of care. Patient continued to have fever spikes and intermittently restless. Continue with current management
[2025-06-16] VITALS (20 sets, daily range): BP systolic 113–152; BP diastolic 73–92; PULSE 90–158; RESP 15–35; TEMP 37.2–39.1; O2SAT 92–100; BMI 28.8
[2025-06-16] MEDS: ACETAMINOPHEN SOL 325 MG/10 ML UDC GT ×3 (00:33→20:34)
[2025-06-16] MEDS: HYDROmorphone INJ 2 MG/ML VIAL 0.5 MG IVP ×3 (00:48→20:32)
[2025-06-16] MEDS: PROPRANOLOL 10 MG TABLET 5 MG GT ×3 (05:03→21:07)
[2025-06-16] MEDS: PIPER/TAZO INJ 4.5 GM in SODIUM CHLORIDE 0.9% (POP) 100 ML IV ×2 (05:03→13:18)
[2025-06-16] MEDS: HEPARIN SOD INJ 5000 UNIT/ML VIAL SC ×3 (05:03→21:04)
[2025-06-16] MEDS: oxyCODONE HCL 5 MG IR TAB 10 MG GT ×3 (05:04→21:05)
[2025-06-16] MEDS: MIDAZOLAM INJ 1 MG/ML VIAL 2 ML 4 MG IVP ×7 (05:22→23:16)
--- NOTE | 2025-06-16 08:18 | ESPR_ITS ---
<Statement entered by Kamlesh Baer MD - 06/16/25 16:15> Patient seen and examined at bedside. I discussed and supervised with the manager of internal audit physician who took care of this patient. I personally saw and examined the patient. I agree with most of the assessment and plan. Per ID, patients continued fevers are not infectious. Possibly drug related, will begin removing medications as tolerated. Planning to move patient to LTAC once family has selected one. Plan of care discussed with attending Dr. Kamlesh Baer MD PGY-2 Documentation for date of: 06/16/25 Subjective Subjective Interval history: Goal of care was discussed with family yesterday regarding possible consideration for LTAC. Pending family's decision. Patient continued to get agitated with RR in 50s, HR ranges from 90s-140s, Tmax 103.2. Agitation improved with trach suction, Austedo, Versed and Dilaudid prn. Intermittent fever improved with Tylenol and ibuprofen. Currently still on Zosyn till 06/18. ID, Dr. Rubio, following, appreciate recs: Not all fevers are infectious fever and this may be all drug related fever, recommends off many meds entirely which is hard consider vent needs. Exam Vital Signs Temp Pulse Resp BP Pulse Ox O2 Del Method O2 Flow Rate 99.8 F 97 19 132/86 H 100 Mechanical Ventilation 35 06/16/25 08:00 06/16/25 08:00 06/16/25 08:00 06/16/25 08:00 06/16/25 08:00 06/16/25 08:00 06/16/25 08:00 FiO2 25 06/16/25 08:00 Narrative Exam General: Trach and PEG tube in place. AAOx0, Non-verbal at baseline. Eyes sluggish. Intermittent grimace Eye: Normal conjunctiva, no scleral icterus Neck: Supple, non-tender, no JVD, no lymphadenopathy Lungs: Crackle breath sounds, symmetric chest rise, No wheezing, rhonchi Heart: Peripheral pulses intact bilaterally, Tachycardic Abdomen: Soft, non-tender, non-distended, no palpable masses Musculoskeletal: No cyanosis, No visible joint swelling, +1 Bilaterally upper extremities edema Skin: Skin is warm, dry, no rashes or lesions. Neuro: Cranial nerves II-XII grossly intact. Objective Labs 06/17/25 04:22 06/17/25 04:22 ABG Interpretation ABG results: 05/09/25 05/09/25 05/09/25 11:56 13:40 18:50 ABG pH 7.40 7.27 L D 7.28 L ABG pCO2 40 43 55 H D ABG pO2 131 H 53 L* D 70 L ABG HCO3 25 20 26 ABG O2 Saturation 99 H 81 L 92 ABG Base Excess 0 -7 L -2 VBG pH VBG pCO2 VBG pO2 VBG Base Excess 05/10/25 05/11/25 05/12/25 00:14 05:06 01:18 ABG pH 7.35 7.33 L 7.39 ABG pCO2 42 D 54 H D 48 ABG pO2 103 D 93 94 ABG HCO3 23 28 H 29 H ABG O2 Saturation 99 H 98 98 ABG Base Excess -3 2 3 VBG pH VBG pCO2 VBG pO2 VBG Base Excess 05/12/25 05/12/25 05/13/25 03:58 11:50 05:10 ABG pH 7.46 H 7.39 7.19 L* D ABG pCO2 41 48 60 H D ABG pO2 105 58 L* D 114 H D ABG HCO3 29 H 29 H 23 ABG O2 Saturation 99 H 90 L 98 ABG Base Excess 5 H 4 H -6 L VBG pH VBG pCO2 VBG pO2 VBG Base Excess 05/17/25 05/18/25 05/19/25 01:30 04:09 04:43 ABG pH 7.38 7.43 7.47 H ABG pCO2 46 44 43 ABG pO2 90 83 80 L ABG HCO3 27 H 29 H 31 H ABG O2 Saturation 98 97 97 ABG Base Excess 2 5 H 7 H VBG pH VBG pCO2 VBG pO2 VBG Base Excess 05/21/25 05/21/25 05/31/25 04:18 06:33 08:06 ABG pH 7.37 D 7.46 H ABG pCO2 50 H 38 D ABG pO2 40 L* D 121 H D ABG HCO3 29 H 27 H ABG O2 Saturation 66 L 100 H ABG Base Excess 3 3 VBG pH 7.55 VBG pCO2 31 L VBG pO2 144 H VBG Base Excess 5 H 06/05/25 06/05/25 06/06/25 13:37 23:46 05:20 ABG pH 7.47 H 7.45 ABG pCO2 35 38 ABG pO2 200 H 54 L* D ABG HCO3 25 26 ABG O2 Saturation 101 H 89 L ABG Base Excess 2 2 VBG pH 7.50 VBG pCO2 34 L VBG pO2 90 H VBG Base Excess 4 H 06/10/25 17:41 ABG pH ABG pCO2 ABG pO2 ABG HCO3 ABG O2 Saturation ABG Base Excess VBG pH 7.40 VBG pCO2 43 VBG pO2 43 VBG Base Excess 2 Quality Measures Quality Measures VTE prophylaxis (SCDs) and sepsis Current suspected stage: sepsis (resolved) Possible source: pulmonary Blood cultures ordered: yes Antibiotic ordered: Yes Assessment & Plan Assessment Current Active Medications: Generic Name Dose Route Start Last Admin Trade Name Freq PRN Reason Stop Dose Admin Acetaminophen 325 mg 06/09/25 18:19 06/16/25 00:33 Acetaminophen Racquel 325 Mg/10 Ml Udc GT 07/09/25 16:12 325 mg Q4HR PRN Administration pain (1-3) or fever > 100.4 Clonazepam 0.5 mg 06/14/25 21:00 06/16/25 05:04 Clonazepam 0.5 Mg Tablet PO 06/19/25 20:59 0.5 mg QID KYA Administration Deutetrabenazine 9 mg 06/14/25 08:00 06/15/25 16:43 Deutetrabenazine 6 Mg Tablet (Non-Formulary) GT 07/14/25 07:59 9 mg BIDWM KYA Administration Ferrous Sulfate 325 mg 06/01/25 09:00 06/15/25 08:34 Ferrous Sulfate 300 Mg/5 Ml Udc PO 07/01/25 08:59 325 mg QOD KYA Administration Heparin Sodium (Porcine) 5,000 unit 06/08/25 14:00 06/16/25 05:03 Heparin Sod Inj 5000 Unit/Ml Vial SC 06/22/25 13:59 5,000 unit Q8HR KYA Administration Hydromorphone HCl 0.5 mg 06/10/25 06:56 06/16/25 00:48 Hydromorphone Inj 2 Mg/Ml Vial IVP 06/19/25 06:55 0.5 mg Q4HR PRN Administration BREAKTHROUGH PAIN Protocol Piperacillin Sod/Tazobactam 100 mls @ 200 mls/hr 06/05/25 14:00 06/16/25 05:03 Sod 4.5 gm/ Sodium Chloride IV 06/18/25 13:59 200 mls/hr Q8HR KYA Administration Protocol Ibuprofen 100 mg 06/15/25 15:47 Ibuprofen Susp 100 Mg/5 Ml Udc GT 07/15/25 15:46 Q6HR PRN PAIN 1-3 OR FEVER > 101 Protocol Lansoprazole 30 mg 05/28/25 09:00 06/15/25 08:34 Lansoprazole 30 Mg Tab.Mary. GT 06/27/25 08:59 30 mg QDAY KYA Administration Levetiracetam 750 mg 05/30/25 09:00 06/15/25 21:15 Levetiracetam Liqd 500 Mg/5 Ml Udc GT 06/29/25 08:59 750 mg BID KYA Administration Midazolam HCl 4 mg 06/12/25 16:40 06/16/25 05:22 Midazolam Inj 1 Mg/Ml Vial 2 Ml IVP 06/17/25 17:59 4 mg Q2HR PRN Administration Agitation or pain Protocol Ondansetron HCl 4 mg 05/27/25 14:37 Ondansetron Odt 4 Mg Tabrap GT 06/26/25 14:36 Q6HR PRN NAUSEA OR VOMITING Protocol Oxycodone HCl 10 mg 06/12/25 11:47 06/16/25 05:04 Oxycodone Hcl 5 Mg Ir Tab GT 06/21/25 15:44 10 mg TID KYA Administration Phenobarbital 129.6 mg 06/12/25 11:47 06/16/25 05:04 Phenobarbital 32.4 Mg Tablet GT 06/24/25 14:44 129.6 mg TID KYA Administration Propranolol HCl 5 mg 06/12/25 14:00 06/16/25 05:03 Propranolol 10 Mg Tablet GT 07/12/25 13:59 5 mg TID KYA Administration Sevelamer Carbonate 0.8 gm 06/11/25 09:00 06/15/25 16:43 Sevelamer Carbonate 0.8 Gm Packet (Non-Formulary) GT 07/11/25 08:59 0.8 gm TIDWM KYA Administration Sodium Chloride 3 ml 05/17/25 11:43 Sodium Chloride Rt Racquel 0.9% 3 Ml Nebu INH 06/16/25 11:42 PRN PRN SOLN Sterile Water 10 ml 06/14/25 17:30 06/15/25 16:45 Water, Sterile Inj 50 Ml Vial GT 07/14/25 17:29 10 ml BIDWM KYA Administration Protocol Valproic Acid 500 mg 06/10/25 09:00 06/15/25 21:14 Valproic Acid Syrup 250 Mg/5 Ml Udc GT 07/10/25 08:59 500 mg BID KYA Administration Plan 24-year-old male with cerebral palsy, asthma, seizure disorder, chronic mastoiditis, recurrent pneumonia, and chronic PEG tube dependence presented with fever and seizure, was admitted for sepsis workup, and later transferred to the ICU for intubation due to concerns about airway protection. Patient has been downgraded from ICU to tele on 05/31/2025; however, re-upgraded to ICU on 06/05 due to tachycardia in 160s, tachypnea, persistent fever, and ventilator asynchrony. #Agitation Differential diagnosis: ICU acquired delirium, opiate withdrawal, delirium Diagnostic workup: - Patient was weaned off of sedation and was downgraded to telemetry, however as sedatives were down titrated and telemetry patient had episode of severe agitation and ventilator asynchrony and was upgraded to ICU for further intervention. - EEG 05/11 unremarkable. Repeat EEG 05/20 showed electrographic seizure activity. Continuous EEG 05/22-05/23: no seizure activity or status epilepticus. Repeat EEG 06/05 negative for seizure activity. - MRI brain 05/23: showed chronic infections, no acute pathology. - Cisatracurium gtt discontinued - Versed gtt discontinued Treatment: - Phenobarbital 129.6 mg three times daily - Back on Clonazepam 0.5 mg four times daily - Oxycodone 10 mg three times daily - Hold orders were added for respiratory rate <14, heart rate <70, or BP <100/60 for the above 3 meds Follow-up: - Use Versed 4 mg pushes every hour as needed #Tardive dyskinesia Diagnostic workup: - Nonpurposeful twisting movements of the patient's upper extremity with recurrent grimaces noted on 11/14 when the patient was taken off sedation - Patient's family notes that the patient has had a long history of nonpurposeful movement and has been previously prescribed deutetrabenazine for management by his neurologist - Per ICU, if deutetrabenazine remains ineffective, will increase to 12 mg twice daily after 1 week of starting the medication, may take up to 4 weeks to see maximal effect Treatment: - Discontinued home Seroquel 50 mg in the morning and 100 mg at night due to tardive dyskinesia - Deutetrabenazine 9 mg twice daily #Sepsis #Bilateral chronic mastoiditis #Sinusitis #Bilateral otitis media #Bilateral otitis externa #Brittney parapsilosis #Community Acquired Pneumonia #UTI, E.coli, ESBL #Pseudomonas aeruginosa, sputum positive #Mucus plugs, right upper lung and left lower lung ? -History of chronic mastoiditis. -Met SIRS criteria on admission: T 105F, HR 176, RR 26, PaCO2 26, WBC 16.3. -Head CT (05/08/2025): prominent sphenoid ethmoid maxillary antral sinusitis, bilateral chronic mastoiditis, bilateral otitis media. -CT Orbit Sella Inner (05/08/2025): severe bilateral chronic mastoiditis, bilateral otitis externa and otitis media, bilateral cholesteatomas in the attics. -CXR (05/09/2025): Bilateral Perihilar Pneumonia. CXR (05/13/2025): Extensive Bilateral Pneumonia, CXR(05/19/2025): Significant bilateral Pneumonia -CT Chest/abd/pelvis (05/16/2025): Extensive bilateral pneumonia, Cystitis pattern, Cholelithiasis -A repeat Cocci serology test was negative -Lumbar puncture(05/10/2025): clear, WBC 3, glucose 70, total protein 25. CSF testing negative. -Respiratory viral panel (05/10/2025): rhinovirus/enterovirus and human metapneumovirus detected. -UA 05/08 and 05/16 negative. [Culture Hx] -1st Blood Cx (05/08): No growth for 5 days. 2nd Blood Cx (05/11): No growth for 5 days, 3rd Blood Cx (05/16): No growth for 5 days, 4th Blood Cx (06/01): No growth for 48hrs -1st Sputum Cx (05/09): Pseudomonas aeruginosa (only sensitive to Meropenem, Tobramycin). 2nd Sputum Cx (05/13): Mixed oral hamilton. 3rd Sputum Cx (05/19): Mixed oral hamilton, 4th Sputum Cx (05/20): Brittney albicans, 5th Sputum Cx (06/01): GNR -CSF Cx (05/10): No growth for 3 days -Left Ear Cx (05/12): Brittney parapsilosis -Right Ear Cx(05/12): E.coli, ESBL (only sensitive to Ertapenem, Meropenem, Zosyn) -Urine Cx (06/01): E.coli, ESBL (only sensitive to Ertapenem, Meropenem, Nitrofurantoin, Zosyn) -Sputum culture 06/05 shows sensitive to Zosyn and intermittent resistance to cefepime [Antibiotics/Antifungal Hx] IV Zosyn 3.375g x1 (at 05/08) IV Ceftriaxone 1g x1 (at 05/08) IV Acyclovir 640mg q8hr (05/08-05/11) since LP negative. IV Ceftriaxone 2g q12hr (05/08-05/11) IV Vancomycin qd (05/08-05/11) since MRSA screen is negative Ofloxacin Opt racquel 0.3% 5 drops Both ears bid (05/09-05/18, 05/21-05/31) IV Meropenem 1000mg q8hr (05/12-05/22, 05/24-05/25) IV Doxycycline (05/16-05/18) IV Micafungin 100mg qd (05/28-05/30, 06/01-06/03) Ciprofloxacin Op Racquel 0.3% ear drops (06/02-06/03) -CXR is showing pneumonia, but CXR often remain abnormal for days to weeks. The infiltrate or consolidation can persist even though the infection has cleared. The radiographic improvement can take up to 4-6 weeks.? Patient is on minimal ventilator setting, oxygen requirement is stable, and has completed antibiotics course. -UTI unlikely sources of infection given low number of colonies and long antibiotics treatment in ICU. -Per ENT, Dr. Ojeda, patient does not have acute coalescent mastoiditis in either ear. Left and right middle ear is also not filled with effusion. -Chest x-ray 06/07 AM, showed a left lower lobe consolidation, ddx left lower lobe pneumonia versus mucous plug versus left pleural effusion versus mucous plug versus atelectasis lung ultrasound at bedside, effusion ruled out, no hepatization of the lung noted. Bedside bronchoscopy showed left lower lobe mucous plug, cleared with deep suction Plan: - Currently on IV Zosyn 06/05- planned until 06/18 for 14-day course coverage of Pseudomonas IV Zosyn 3.375g x1 (at 05/08) IV Ceftriaxone 1g x1 (at 05/08) IV Acyclovir 640mg q8hr (05/08-05/11) IV Ceftriaxone 2g q12hr (05/08-05/11) IV Vancomycin qd (05/08-05/11) since MRSA screen is negative IV Meropenem 1000mg q8hr (05/12-05/22, 05/24-05/25) IV Doxycycline (05/16-05/18) IV Micafungin 100mg qd (05/28-05/30, 06/01-06/03) IV fluconazole 06/05-06/07 Follow-up: - Once weaned off sedation and patient has cough reflex intact and more awake/alert, will consider chest physiotherapy. #Phimosis s/p dorsal slit procedure 06/08/2025 #Paraphimosis (resolved) #Balanitis (resolved) Diagnostic workup: - Edema and tenderness of the glans penis, Swelling of the distal retracted foreskin, Constricting band of tissue proximal to the head of the penis at the coronal sulcus on presentation, s/p reduction of the paraphimosis by urologist Dr. Vargas on 05/09 and phimosis dorsal slit on 06/08 Treatment: - Dilaudid 0.5 mg IVP every 4 hours as needed for breakthrough pain - Monitor for worsening swelling, bleeding, or blockage of urine #Seizure disorder by history #Cerebral palsy by history Diagnostic workup: - Active seizure disorder ruled out, multiple EEGs negative for seizure activity Treatment: - Continue Depakote 250 mg GT every 8 hours and Keppra 750 mg GT twice daily #Sinus tachycardia Differential diagnosis: Infection, hypersympathetic activity Diagnostic workup: - Did have positive sputum and urine culture for Pseudomonas and ESBL respectively - Patient's last fever was 06/12/2025 05:46 - Echocardiogram was obtained to rule out any vegetations TTE shows normal systolic function, EF 55 to 60%, diastolic dysfunction grade 1, no evidence of vegetation or endocarditis Treatment: - Downtitrated propranolol 10 mg to 5 mg 3 times daily - Continue antibiotics - Monitor for fever, use ibuprofen as needed for fever episode - Telemetry monitoring - Plan to titrate off propranolol completely in 3 days #Elevated alkaline phosphatase, improving #Low PTH #Abnormal nuclear medicine bone scan Differential diagnosis: increased osteoblastic activity in setting of vegetative state, bone infection (particularly of left mastoid), hypoparathyroidism, osteoarthritis Diagnostic workup: - PTH intact low at 3.6, calcium 9.9, vitamin D 25-OH 18.1 - Renal function intact, at baseline - Nuclear medicine bone scan shows minor asymmetric uptake left knee and mild increased uptake mid left tibia - Knee x-ray 06/06 and tibia-fibula x-ray 06/06 showed no findings diagnostic for osseous metastatic disease - MRI left leg 06/08 images severely degraded by continuous patient motion - No pain to palpation of bilateral lower extremities Treatment: - Continue sevelamer 800 mg 3 times daily - Patient to follow up on abnormal imaging outpatient #Tongue Laceration, traumatic #Gingivial Bleeding, Oral Trauma Diagnostic workup: -Known to have episodes of jaw spasms and teeth clenching with agitation. Had significant trauma to gums and tongue due to clenching of teeth 06/06 - No further bleeding appreciated in oral mucosa Treatment: - Patient required cisatracurium to relax jaw, pressure was applied locally, oral packing none, injections of lido?epinephrine x 3 to gums on 06/06 night Follow-up: - Monitor for bleeding #Bronchospasm #History of asthma -Magnesium for bronchodilator effect as needed. -Albuterol and Ipratropium as needed. #Failed extubation 05/12 #Acute hypoxic respiratory failure s/p tracheostomy #Ventilator dependent -Patient underwent tracheostomy on 05/26/2025 -Chest physiotherapy daily #Chronic PEG tube dependence -Nepro 1.8 Christ 1L RTH -Pro Stat Sugar Free 30 ml #Hyperphosphatemia -Sevelamer 1g GT 3 times daily, adjust if needed. #Normocytic Anemia #Leukocytosis-Resolving #Maculopapular rash to the buttocks-Resolving #Acute urinary retention-Resolved #Hypoalbuminemia-Resolved #Hyperkalemia-Resolved #Acute kidney injury-Resolved #Anion Gap Metabolic Acidosis-Resolved #Acute nonocclusive thrombus in the left brachial vein-Resolved Disposition: Tele Diet: Nepro 1.8 Christ 1L RTH and Pro Stat Sugar Free 30 ml GI prophylaxis: Lansoprazole 30mg GT qd DVT prophylaxis: SCDs,[id number] SC BID due to bleeding Code: FULL Assessment and plan discussed with my attending physician Dr. Ennis and Dr. Baer (PGY-2) Dr. Molina (PGY-1) - president [employer] Attending Provider Attestation/Addendum I have seen and examined the patient. I was physically present for the luke portions of the services provided including history, physical exam, diagnosis, treatment plans and orders. I agree with assessment and plan of care as documented by residents. Patient seen and examined at bedside this morning. Continues to have episodes of agitation with episodes of tachycardia. Also had temperature going up to 103.2 ?F. Agitation improved with as needed Versed pushes and Dilaudid. Continues to be on Austedo 9 mg twice daily. Continues to be on multiple medication for agitation/pain. With patient's failure of improvement on temperature with ongoing broad-spectrum antibiotics, source of fever remains unclear. Possibly secondary to drug-related fever, possibly from his movement disorder, agitation. We will start discontinuing his medications as possible. Discontinued lansoprazole and Zosyn today. We will closely monitor for further febrile episode and agitation episodes. We will continue to try to wean off of other medications as tolerated. If continues to have fever, we will obtain further imaging to rule out new source of infection. Infectious disease, neurology, following closely, appreciate recommendations. Lab results have been mostly stable, tolerating tube feeds. 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 Jose Ennis MD
[2025-06-16] MEDS: LANSOPRAZOLE 30 MG TAB.RAP.DR GT (09:13)
[2025-06-16] MEDS: levETIRAcetam LIQD 500 MG/5 ML UDC 750 MG GT (09:14)
--- NOTE | 2025-06-16 09:14 | PC.SS ---
Addendum entered by Ping Wren 06/16/25 11:35: SS received call from Mia from [facility] who explained they are able to accept SS received call from Grant from [facility] who state they are able to accept pt. SS has informed Grant pt has had ICU stay. SS met with mom and informed her of accepting facilities. Mom is aware insurance authorization is required once pt has been medically cleared by physicians. Mom is aware LTAC in [place] has not responded at this time. SS has sent updated inquiry to [facility] Original Note: Follow up note: Pt is on Peg/Trach/Vent. On IV sedative. SS has sent inquiry to LTAC in [facility] area using [facility].
[2025-06-16] MEDS: VALPROIC ACID SYRUP 250 MG/5 ML UDC 500 MG GT ×2 (09:15→20:33)
[2025-06-16] MEDS: SEVELAMER CARBONATE 0.8 GM PACKET (NON-FORMULARY) GT ×3 (09:16→16:53)
--- NOTE | 2025-06-16 11:15 | PC.NURSE ---
TOOK PATIENTS RECTAL TEMPERATURE IT IS 100.7. STARTING COOLING MEASURES AND GIVING PATIENT TYLENOL
[2025-06-16] MEDS: levETIRAcetam LIQD 500 MG/5 ML UDC GT (20:33)
--- NOTE | 2025-06-16 21:25 | PD.RESPRO ---
Documentation for date of: 06/16/25 Subjective Subjective Interval history: Patient seen today at the bedside found resting comfortably in bed. No dyskinetic movements noted today. Vitals and labs reviewed. Continues to have episodes of fever however patient completed Abx therapy doubt infectious etiology at this point in time, possibly related to medications. Keppra dosage decreased to 500mg BID. Phenobarbital lvls ordered. Exam Vital Signs Temp Pulse Resp BP Pulse Ox O2 Del Method O2 Flow Rate 100.5 F H 158 H 22 H 135/82 H 99 Mechanical Ventilation 35 06/16/25 20:34 06/16/25 21:07 06/16/25 20:00 06/16/25 21:07 06/16/25 20:00 06/16/25 20:00 06/16/25 20:00 FiO2 25 06/16/25 20:00 Narrative Exam Physical Exam GENERAL: calm, trached and peg tube in place, HEENT: Moist mucosa. Eyes open, symmetrical, & clear CARDIO: Heart RRR, no obvious murmurs PULM: No noted coughing/dyspnea CTA B/L, no R/W/R GI: Abdomen soft, nondistended, no pain on palpation. BSx4 SKIN/MSK/EXT: No wounds/rashes/edema/amputations, no pain on palpation. Pedal pulses present B/L NEURO: able to move all 4 extremities Objective Labs 06/17/25 04:22 06/17/25 04:22 ABG Interpretation ABG results: 05/09/25 05/09/25 05/09/25 11:56 13:40 18:50 ABG pH 7.40 7.27 L D 7.28 L ABG pCO2 40 43 55 H D ABG pO2 131 H 53 L* D 70 L ABG HCO3 25 20 26 ABG O2 Saturation 99 H 81 L 92 ABG Base Excess 0 -7 L -2 VBG pH VBG pCO2 VBG pO2 VBG Base Excess 05/10/25 05/11/25 05/12/25 00:14 05:06 01:18 ABG pH 7.35 7.33 L 7.39 ABG pCO2 42 D 54 H D 48 ABG pO2 103 D 93 94 ABG HCO3 23 28 H 29 H ABG O2 Saturation 99 H 98 98 ABG Base Excess -3 2 3 VBG pH VBG pCO2 VBG pO2 VBG Base Excess 05/12/25 05/12/25 05/13/25 03:58 11:50 05:10 ABG pH 7.46 H 7.39 7.19 L* D ABG pCO2 41 48 60 H D ABG pO2 105 58 L* D 114 H D ABG HCO3 29 H 29 H 23 ABG O2 Saturation 99 H 90 L 98 ABG Base Excess 5 H 4 H -6 L VBG pH VBG pCO2 VBG pO2 VBG Base Excess 05/17/25 05/18/25 05/19/25 01:30 04:09 04:43 ABG pH 7.38 7.43 7.47 H ABG pCO2 46 44 43 ABG pO2 90 83 80 L ABG HCO3 27 H 29 H 31 H ABG O2 Saturation 98 97 97 ABG Base Excess 2 5 H 7 H VBG pH VBG pCO2 VBG pO2 VBG Base Excess 05/21/25 05/21/25 05/31/25 04:18 06:33 08:06 ABG pH 7.37 D 7.46 H ABG pCO2 50 H 38 D ABG pO2 40 L* D 121 H D ABG HCO3 29 H 27 H ABG O2 Saturation 66 L 100 H ABG Base Excess 3 3 VBG pH 7.55 VBG pCO2 31 L VBG pO2 144 H VBG Base Excess 5 H 06/05/25 06/05/25 06/06/25 13:37 23:46 05:20 ABG pH 7.47 H 7.45 ABG pCO2 35 38 ABG pO2 200 H 54 L* D ABG HCO3 25 26 ABG O2 Saturation 101 H 89 L ABG Base Excess 2 2 VBG pH 7.50 VBG pCO2 34 L VBG pO2 90 H VBG Base Excess 4 H 06/10/25 17:41 ABG pH ABG pCO2 ABG pO2 ABG HCO3 ABG O2 Saturation ABG Base Excess VBG pH 7.40 VBG pCO2 43 VBG pO2 43 VBG Base Excess 2 Quality Measures Quality Measures VTE prophylaxis (SCDs) and sepsis Current suspected stage: ruled out Possible source: pulmonary Blood cultures ordered: yes Antibiotic ordered: Yes Assessment & Plan Assessment Current Active Medications: Generic Name Dose Route Start Last Admin Trade Name Freq PRN Reason Stop Dose Admin Acetaminophen 325 mg 06/16/25 16:18 06/16/25 20:34 Acetaminophen Racquel 325 Mg/10 Ml Udc GT 07/09/25 16:12 325 mg Q4HR PRN Administration pain (1-3) or fever > 100.4 Clonazepam 0.5 mg 06/14/25 21:00 06/16/25 20:33 Clonazepam 0.5 Mg Tablet PO 06/19/25 20:59 0.5 mg QID KYA Administration Deutetrabenazine 9 mg 06/14/25 08:00 06/16/25 16:49 Deutetrabenazine 6 Mg Tablet (Non-Formulary) GT 07/14/25 07:59 9 mg BIDWM KYA Administration Ferrous Sulfate 325 mg 06/01/25 09:00 06/15/25 08:34 Ferrous Sulfate 300 Mg/5 Ml Udc PO 07/01/25 08:59 325 mg QOD KYA Administration Heparin Sodium (Porcine) 5,000 unit 06/08/25 14:00 06/16/25 21:04 Heparin Sod Inj 5000 Unit/Ml Vial SC 06/22/25 13:59 5,000 unit Q8HR KYA Administration Hydromorphone HCl 0.5 mg 06/10/25 06:56 06/16/25 20:32 Hydromorphone Inj 2 Mg/Ml Vial IVP 06/19/25 06:55 0.5 mg Q4HR PRN Administration BREAKTHROUGH PAIN Protocol Ibuprofen 100 mg 06/15/25 15:47 Ibuprofen Susp 100 Mg/5 Ml Ud GT 07/15/25 15:46 Q6HR PRN PAIN 1-3 OR FEVER > 101 Protocol Levetiracetam 500 mg 06/16/25 21:00 06/16/25 20:33 Levetiracetam Liqd 500 Mg/5 Ml Udc GT 07/16/25 20:59 500 mg BID KYA Administration Midazolam HCl 4 mg 06/12/25 16:40 06/16/25 19:51 Midazolam Inj 1 Mg/Ml Vial 2 Ml IVP 06/17/25 17:59 4 mg Q2HR PRN Administration Agitation or pain Protocol Ondansetron HCl 4 mg 05/27/25 14:37 Ondansetron Odt 4 Mg Tabrap GT 06/26/25 14:36 Q6HR PRN NAUSEA OR VOMITING Protocol Oxycodone HCl 10 mg 06/12/25 11:47 06/16/25 21:05 Oxycodone Hcl 5 Mg Ir Tab GT 06/21/25 15:44 10 mg TID KYA Administration Phenobarbital 129.6 mg 06/12/25 11:47 06/16/25 21:04 Phenobarbital 32.4 Mg Tablet GT 06/24/25 14:44 129.6 mg TID KYA Administration Propranolol HCl 5 mg 06/12/25 14:00 06/16/25 21:07 Propranolol 10 Mg Tablet GT 07/12/25 13:59 5 mg TID KYA Administration Sevelamer Carbonate 0.8 gm 06/11/25 09:00 06/16/25 16:53 Sevelamer Carbonate 0.8 Gm Packet (Non-Formulary) GT 07/11/25 08:59 0.8 gm TIDWM KYA Administration Sterile Water 10 ml 06/14/25 17:30 06/16/25 16:54 Water, Sterile Inj 50 Ml Vial GT 07/14/25 17:29 10 ml BIDWM KYA Administration Protocol Valproic Acid 500 mg 06/10/25 09:00 06/16/25 20:33 Valproic Acid Syrup 250 Mg/5 Ml Udc GT 07/10/25 08:59 500 mg BID KYA Administration Plan 24-year-old male with cerebral palsy, asthma, seizure disorder, chronic mastoiditis, recurrent pneumonia, and chronic PEG tube dependence presented with fever and seizure, was admitted for sepsis workup, and later transferred to the ICU for intubation due to concerns about airway protection. Patient has been downgraded from ICU to tele on 05/31/2025; however, re-upgraded to ICU on 06/05 due to tachycardia in 160s, tachypnea, persistent fever, and ventilator asynchrony. 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 EEG 05/11 unremarkable. Repeat EEG 05/20 showed electrographic seizure activity. Continuous EEG 05/22-05/23: no seizure activity or status epilepticus. Repeat EEG 06/05 negative for seizure activity. MRI brain: no acute pathology. - continue Austedo 9mg BID - Continue Phenobarbital 129.6 mg three times daily, Clonazepam 0.5 mg 4 times daily, Oxycodone 10 mg three times daily - Continue Valproic acid 500 mg GT BID - Keppra 750 mg GT twice daily adjusted to 500mg BID - Follow up phenobarbital lvls - Continue lansoprazole 30mg qday - Versed 4 mg pushes every hour as needed #Sepsis #Bilateral chronic mastoiditis #Bilateral otitis media/otitis externa #Community Acquired Pneumonia #UTI, E.coli, ESBL #Pseudomonas aeruginosa, sputum positive #Mucus plugs, right upper lung and left lower lung ? #Paraphimosis (resolved) #Balanitis (resolved) #Sinus tachycardia #Gingivial Bleeding, Oral Trauma #Bronchospasm #History of asthma #Acute hypoxic respiratory failure s/p tracheostomy #Normocytic Anemia #Leukocytosis-Resolving #Maculopapular rash to the buttocks-Resolving #Acute kidney injury-Resolved #Anion Gap Metabolic Acidosis-Resolved #Acute nonocclusive thrombus in the left brachial vein-Resolved - as per primary team Case discussed with my attending Dr. Precious Cole MD PGY-2 Attending Provider Attestation/Addendum I personally have seen and examined the patient at the bedside and I agree with resident's findings, assessment and plan of care. Continue with the current management with close monitoring for fever spikes.
[2025-06-16] MEDS: IBUPROFEN SUSP 100 MG/5 ML UDC GT (22:38)
[2025-06-17] VITALS (21 sets, daily range): BP systolic 134–172; BP diastolic 73–101; PULSE 10–150; RESP 23–49; TEMP 37.1–38.9; O2SAT 98–99; BMI 27.8
[2025-06-17] MEDS: ACETAMINOPHEN SOL 325 MG/10 ML UDC GT ×4 (00:19→21:11)
[2025-06-17] MEDS: HYDROmorphone INJ 2 MG/ML VIAL 0.5 MG IVP ×5 (00:19→18:35)
[2025-06-17] MEDS: MIDAZOLAM INJ 1 MG/ML VIAL 2 ML 4 MG IVP ×8 (01:20→21:29)
[2025-06-17] MEDS: oxyCODONE HCL 5 MG IR TAB 10 MG GT ×3 (05:49→21:11)
[2025-06-17] MEDS: PROPRANOLOL 10 MG TABLET 5 MG GT ×3 (05:50→21:11)
[2025-06-17] MEDS: HEPARIN SOD INJ 5000 UNIT/ML VIAL SC ×3 (05:52→21:12)
[2025-06-17 06:07] LABS: Misc Send Out* See Sep Rpt
[2025-06-17 06:16] LABS: Basophils # (Auto) 0.1 Thou/mm3 (0.0-0.2); Basophils % (Auto) 1 % (0-2.5); Eosinophils # (Auto) 0.3 Thou/mm3 (0.0-0.5); Eosinophils % (Auto) 3 % (0-10); Hematocrit 25.6 % (41.0-53.0); Immature Granulocytes Auto 0.04 Thou/mm3 (0.00-0.00); Lymphocytes # (Auto) 3.5 Thou/mm3 (1.0-4.8); Lymphocytes % (Auto) 36 % (10-50); Mean Corpuscular HGB Conc 32.0 g/dl (31.0-37.0); Mean Corpuscular Hemoglobin 27.4 pg (25.0-35.0); Mean Corpuscular Volume 86 fL (80-100); Monocytes # (Auto) 1.4 Thou/mm3 (0.0-0.8); Monocytes % (Auto) 14 % (0-12); Neutrophils # (Auto) 4.5 Thou/mm3 (1.8-7.7); Neutrophils % (Auto) 46 % (37-80); Nucleated Red Blood Cell # 0.00 Thou/mm3 (0.00-0.00); Nucleated Red Blood Cell % 0 /100 WBC (0); Platelet Count 564 Thou/mm3 (140-440); RDW Standard Deviation 50.9 fL (35.1-43.9); Red Blood Count 2.99 Miln/mm3 (4.50-5.90); White Blood Count 9.9 Thou/mm3 (3.8-10.6)
[2025-06-17 06:20] LABS: Hemoglobin 8.2 g/dL (13.5-16.0)
[2025-06-17 06:38] LABS: Alanine Aminotransferase 33 U/L (10-49); Albumin, Serum 4.3 gm/dL (3.5-5.0); Albumin/Globulin Ratio 1.7 (1.2-2.2); Alkaline Phosphatase 130 U/L (46-116); Anion Gap 13 (7-16); Aspartate Amino Transferase 31 U/L (0-34); BUN/Creatinine Ratio 11 Ratio (12-20); Bilirubin,Total 0.2 mg/dL (0.3-1.2); Blood Urea Nitrogen 8 mg/dL (9-23); Calcium 9.9 mg/dL (8.3-10.6); Calcium (Corrected) 9.9 mg/dL (8.5-10.1); Carbon Dioxide 25.1 mMol/L (20.0-31.0); Chloride 103 mMol/L (98-107); Creatine Kinase 125 U/L (34-171); Creatinine (Component) 0.7 mg/dL (0.6-1.3); Estimated Creatinine Clearance 124.1 mL/min (>60); Globulin 2.5 gm/dL (2.3-3.5); Glucose 85 mg/dL (74-106); Magnesium 1.8 mg/dL (1.6-2.6); Osmolality,Calculated 278 (275-295); Phosphorous 3.9 mg/dL (2.4-5.1); Potassium 3.3 mMol/L (3.4-5.1); Sodium 141 mMol/L (136-145); Total Protein 6.8 gm/dL (5.7-8.2); eGFR > 60 See Note
[2025-06-17] MEDS: VALPROIC ACID SYRUP 250 MG/5 ML UDC 500 MG GT ×2 (08:18→21:11)
[2025-06-17] MEDS: levETIRAcetam LIQD 500 MG/5 ML UDC GT ×2 (08:18→21:11)
[2025-06-17] MEDS: SEVELAMER CARBONATE 0.8 GM PACKET (NON-FORMULARY) GT ×3 (08:19→17:44)
--- NOTE | 2025-06-17 08:19 | ESPR_ITS ---
<Statement entered by Kamlesh Baer MD - 06/17/25 17:38> Patient seen and examined at bedside. I discussed and supervised with the biomedical engineering internship physician who took care of this patient. I personally saw and examined the patient. I agree with most of the assessment and plan. Plan of care discussed with attending Dr. Ennis. Kamlesh Baer MD PGY-2 Documentation for date of: 06/17/25 Subjective Subjective Interval history: Patient appeared agitated with RR normal in 20. Patient moved around with gauze covered on L arm at IV site. Overnight patient received Versed 4mg prn x 7 and Dilaudid 0.5 mg prn x 3. Vitals today hypertensive 172/95 SBP 120s-170s DBP 70s-100s, tachycardic 100s- 158 Tmax 24-hour 102.3. CK 125 normal Neurology, Dr. Lang, decrease Keppra from 750 to 500 twice daily, pending phenobarbital level Exam Vital Signs Temp Pulse Resp BP Pulse Ox O2 Del Method O2 Flow Rate 98.7 F 144 H 26 H 172/95 H 99 Mechanical Ventilation 35 06/17/25 07:54 06/17/25 07:54 06/17/25 07:54 06/17/25 07:54 06/17/25 07:54 06/17/25 07:54 06/17/25 07:54 FiO2 25 06/17/25 07:54 Narrative Exam General: Trach and PEG tube in place. AAOx0, Non-verbal at baseline. Eyes sluggish. Intermittent grimace Eye: Normal conjunctiva, no scleral icterus Neck: Supple, non-tender, no JVD, no lymphadenopathy Lungs: Crackle breath sounds, symmetric chest rise, No wheezing, rhonchi Heart: Peripheral pulses intact bilaterally, Tachycardic Abdomen: Soft, non-tender, non-distended, no palpable masses Musculoskeletal: No cyanosis, No visible joint swelling, +1 Bilaterally upper extremities edema Skin: Skin is warm, dry, no rashes or lesions. Neuro: Cranial nerves II-XII grossly intact. Objective Labs 06/17/25 04:22 06/17/25 04:22 Labs: Laboratory Results - last 24 hr 06/17/25 04:22 WBC 9.9 RBC 2.99 L Hgb 8.2 L Hct 25.6 L MCV 86 MCH 27.4 MCHC 32.0 RDW Std Deviation 50.9 H Plt Count 564 H Neut % (Auto) 46 Lymph % (Auto) 36 [place] % (Auto) 14 H Eos % (Auto) 3 Baso % (Auto) 1 Neut # (Auto) 4.5 Lymph # (Auto) 3.5 [place] # (Auto) 1.4 H Eos # (Auto) 0.3 Baso # (Auto) 0.1 Immature Gran # (Auto) 0.04 H Absolute Nucleated RBC 0.00 Immature Gran % 0 Nucleated RBC % 0 Sodium 141 Potassium 3.3 L Chloride 103 Carbon Dioxide 25.1 Anion Gap 13 BUN 8 L Creatinine 0.7 Estim Creat Clear Calc 124.1 eGFR > 60 BUN/Creatinine Ratio 11 L Glucose 85 Calculated Osmolality 278 Calcium 9.9 Corrected Calcium 9.9 Phosphorus 3.9 Magnesium 1.8 Total Bilirubin 0.2 L AST 31 ALT 33 Alkaline Phosphatase 130 H Total Creatine Kinase 125 D Total Protein 6.8 Albumin 4.3 Globulin 2.5 Albumin/Globulin Ratio 1.7 ABG Interpretation ABG results: 05/09/25 05/09/25 05/09/25 11:56 13:40 18:50 ABG pH 7.40 7.27 L D 7.28 L ABG pCO2 40 43 55 H D ABG pO2 131 H 53 L* D 70 L ABG HCO3 25 20 26 ABG O2 Saturation 99 H 81 L 92 ABG Base Excess 0 -7 L -2 VBG pH VBG pCO2 VBG pO2 VBG Base Excess 05/10/25 05/11/25 05/12/25 00:14 05:06 01:18 ABG pH 7.35 7.33 L 7.39 ABG pCO2 42 D 54 H D 48 ABG pO2 103 D 93 94 ABG HCO3 23 28 H 29 H ABG O2 Saturation 99 H 98 98 ABG Base Excess -3 2 3 VBG pH VBG pCO2 VBG pO2 VBG Base Excess 05/12/25 05/12/25 05/13/25 03:58 11:50 05:10 ABG pH 7.46 H 7.39 7.19 L* D ABG pCO2 41 48 60 H D ABG pO2 105 58 L* D 114 H D ABG HCO3 29 H 29 H 23 ABG O2 Saturation 99 H 90 L 98 ABG Base Excess 5 H 4 H -6 L VBG pH VBG pCO2 VBG pO2 VBG Base Excess 05/17/25 05/18/25 05/19/25 01:30 04:09 04:43 ABG pH 7.38 7.43 7.47 H ABG pCO2 46 44 43 ABG pO2 90 83 80 L ABG HCO3 27 H 29 H 31 H ABG O2 Saturation 98 97 97 ABG Base Excess 2 5 H 7 H VBG pH VBG pCO2 VBG pO2 VBG Base Excess 05/21/25 05/21/25 05/31/25 04:18 06:33 08:06 ABG pH 7.37 D 7.46 H ABG pCO2 50 H 38 D ABG pO2 40 L* D 121 H D ABG HCO3 29 H 27 H ABG O2 Saturation 66 L 100 H ABG Base Excess 3 3 VBG pH 7.55 VBG pCO2 31 L VBG pO2 144 H VBG Base Excess 5 H 06/05/25 06/05/25 06/06/25 13:37 23:46 05:20 ABG pH 7.47 H 7.45 ABG pCO2 35 38 ABG pO2 200 H 54 L* D ABG HCO3 25 26 ABG O2 Saturation 101 H 89 L ABG Base Excess 2 2 VBG pH 7.50 VBG pCO2 34 L VBG pO2 90 H VBG Base Excess 4 H 06/10/25 17:41 ABG pH ABG pCO2 ABG pO2 ABG HCO3 ABG O2 Saturation ABG Base Excess VBG pH 7.40 VBG pCO2 43 VBG pO2 43 VBG Base Excess 2 Quality Measures Quality Measures VTE prophylaxis (SCDs) and sepsis Current suspected stage: sepsis (resolved) Possible source: pulmonary Blood cultures ordered: yes Antibiotic ordered: Yes Assessment & Plan Assessment Current Active Medications: Generic Name Dose Route Start Last Admin Trade Name Freq PRN Reason Stop Dose Admin Acetaminophen 325 mg 06/16/25 16:18 06/17/25 04:29 Acetaminophen Racquel 325 Mg/10 Ml Udc GT 07/09/25 16:12 325 mg Q4HR PRN Administration pain (1-3) or fever > 100.4 Clonazepam 0.5 mg 06/14/25 21:00 06/17/25 05:51 Clonazepam 0.5 Mg Tablet PO 06/19/25 20:59 0.5 mg QID KYA Administration Deutetrabenazine 9 mg 06/14/25 08:00 06/16/25 16:49 Deutetrabenazine 6 Mg Tablet (Non-Formulary) GT 07/14/25 07:59 9 mg BIDWM KYA Administration Ferrous Sulfate 325 mg 06/01/25 09:00 06/15/25 08:34 Ferrous Sulfate 300 Mg/5 Ml Udc PO 07/01/25 08:59 325 mg QOD KYA Administration Heparin Sodium (Porcine) 5,000 unit 06/08/25 14:00 06/17/25 05:52 Heparin Sod Inj 5000 Unit/Ml Vial SC 06/22/25 13:59 5,000 unit Q8HR KYA Administration Hydromorphone HCl 0.5 mg 06/10/25 06:56 06/17/25 04:28 Hydromorphone Inj 2 Mg/Ml Vial IVP 06/19/25 06:55 0.5 mg Q4HR PRN Administration BREAKTHROUGH PAIN Protocol Ibuprofen 100 mg 06/15/25 15:47 06/16/25 22:38 Ibuprofen Susp 100 Mg/5 Ml Udc GT 07/15/25 15:46 100 mg Q6HR PRN Administration PAIN 1-3 OR FEVER > 101 Protocol Levetiracetam 500 mg 06/16/25 21:00 06/16/25 20:33 Levetiracetam Liqd 500 Mg/5 Ml Udc GT 07/16/25 20:59 500 mg BID KYA Administration Midazolam HCl 4 mg 06/12/25 16:40 06/17/25 05:52 Midazolam Inj 1 Mg/Ml Vial 2 Ml IVP 06/17/25 17:59 4 mg Q2HR PRN Administration Agitation or pain Protocol Ondansetron HCl 4 mg 05/27/25 14:37 Ondansetron Odt 4 Mg Tabrap GT 06/26/25 14:36 Q6HR PRN NAUSEA OR VOMITING Protocol Oxycodone HCl 10 mg 06/12/25 11:47 06/17/25 05:49 Oxycodone Hcl 5 Mg Ir Tab GT 06/21/25 15:44 10 mg TID KYA Administration Phenobarbital 129.6 mg 06/12/25 11:47 06/17/25 05:48 Phenobarbital 32.4 Mg Tablet GT 06/24/25 14:44 129.6 mg TID KYA Administration Propranolol HCl 5 mg 06/12/25 14:00 06/17/25 05:50 Propranolol 10 Mg Tablet GT 07/12/25 13:59 5 mg TID KYA Administration Sevelamer Carbonate 0.8 gm 06/11/25 09:00 06/16/25 16:53 Sevelamer Carbonate 0.8 Gm Packet (Non-Formulary) GT 07/11/25 08:59 0.8 gm TIDWM KYA Administration Sterile Water 10 ml 06/14/25 17:30 06/16/25 16:54 Water, Sterile Inj 50 Ml Vial GT 07/14/25 17:29 10 ml BIDWM KYA Administration Protocol Valproic Acid 500 mg 06/10/25 09:00 06/16/25 20:33 Valproic Acid Syrup 250 Mg/5 Ml Udc GT 07/10/25 08:59 500 mg BID KYA Administration Plan 24-year-old male with cerebral palsy, asthma, seizure disorder, chronic mastoiditis, recurrent pneumonia, and chronic PEG tube dependence presented with fever and seizure, was admitted for sepsis workup, and later transferred to the ICU for intubation due to concerns about airway protection. Patient has been downgraded from ICU to tele on 05/31/2025; however, re-upgraded to ICU on 06/05 due to tachycardia in 160s, tachypnea, persistent fever, and ventilator asynchrony. #Agitation Differential diagnosis: ICU acquired delirium, opiate withdrawal, delirium Diagnostic workup: - Patient was weaned off of sedation and was downgraded to telemetry, however as sedatives were down titrated and telemetry patient had episode of severe agitation and ventilator asynchrony and was upgraded to ICU for further intervention. - EEG 05/11 unremarkable. Repeat EEG 05/20 showed electrographic seizure activity. Continuous EEG 05/22-05/23: no seizure activity or status epilepticus. Repeat EEG 06/05 negative for seizure activity. - MRI brain 05/23: showed chronic infections, no acute pathology. - Cisatracurium gtt discontinued - Versed gtt discontinued Treatment: - Phenobarbital 129.6 mg three times daily - Continue Clonazepam 0.5 mg four times daily - Oxycodone 10 mg three times daily - Hold orders were added for respiratory rate <14, heart rate <70, or BP <100/60 for the above 3 meds Follow-up: - Use Versed 4 mg pushes every hour as needed #Tardive dyskinesia Diagnostic workup: - Nonpurposeful twisting movements of the patient's upper extremity with recurrent grimaces noted on 06/10 when the patient was taken off sedation - Patient's family notes that the patient has had a long history of nonpurposeful movement and has been previously prescribed deutetrabenazine for management by his neurologist - Per ICU, if deutetrabenazine remains ineffective, will increase to 12 mg twice daily after 1 week of starting the medication, may take up to 4 weeks to see maximal effect Treatment: - Discontinued home Seroquel 50 mg in the morning and 100 mg at night due to tardive dyskinesia - Deutetrabenazine 9 mg twice daily #Sepsis #Bilateral chronic mastoiditis #Sinusitis #Bilateral otitis media #Bilateral otitis externa #Brittney parapsilosis #Community Acquired Pneumonia #UTI, E.coli, ESBL #Pseudomonas aeruginosa, sputum positive #Mucus plugs, right upper lung and left lower lung ? -History of chronic mastoiditis. -Met SIRS criteria on admission: T 105F, HR 176, RR 26, PaCO2 26, WBC 16.3. -Head CT (05/08/2025): prominent sphenoid ethmoid maxillary antral sinusitis, bilateral chronic mastoiditis, bilateral otitis media. -CT Orbit Sella Inner (05/08/2025): severe bilateral chronic mastoiditis, bilateral otitis externa and otitis media, bilateral cholesteatomas in the attics. -CXR (05/09/2025): Bilateral Perihilar Pneumonia. CXR (05/13/2025): Extensive Bilateral Pneumonia, CXR(05/19/2025): Significant bilateral Pneumonia -CT Chest/abd/pelvis (05/16/2025): Extensive bilateral pneumonia, Cystitis pattern, Cholelithiasis -A repeat Cocci serology test was negative -Lumbar puncture(05/10/2025): clear, WBC 3, glucose 70, total protein 25. CSF testing negative. -Respiratory viral panel (05/10/2025): rhinovirus/enterovirus and human metapneumovirus detected. -UA 10/12 and 05/16 negative. [Culture Hx] -1st Blood Cx (05/08): No growth for 5 days. 2nd Blood Cx (05/11): No growth for 5 days, 3rd Blood Cx (05/16): No growth for 5 days, 4th Blood Cx (06/01): No growth for 48hrs -1st Sputum Cx (05/09): Pseudomonas aeruginosa (only sensitive to Meropenem, Tobramycin). 2nd Sputum Cx (05/13): Mixed oral hamilton. 3rd Sputum Cx (05/19): Mixed oral hamilton, 4th Sputum Cx (05/20): Brittney albicans, 5th Sputum Cx (06/01): GNR -CSF Cx (05/10): No growth for 3 days -Left Ear Cx (05/12): Brittney parapsilosis -Right Ear Cx(05/12): E.coli, ESBL (only sensitive to Ertapenem, Meropenem, Zosyn) -Urine Cx (06/01): E.coli, ESBL (only sensitive to Ertapenem, Meropenem, Nitrofurantoin, Zosyn) -Sputum culture 06/05 shows sensitive to Zosyn and intermittent resistance to cefepime [Antibiotics/Antifungal Hx] IV Zosyn 3.375g x1 (at 05/08) IV Ceftriaxone 1g x1 (at 05/08) IV Acyclovir 640mg q8hr (05/08-05/11) since LP negative. IV Ceftriaxone 2g q12hr (05/08-05/11) IV Vancomycin qd (05/08-05/11) since MRSA screen is negative Ofloxacin Opt racquel 0.3% 5 drops Both ears bid (05/09-05/18, 05/21-05/31) IV Meropenem 1000mg q8hr (05/12-05/22, 05/24-05/25) IV Doxycycline (05/16-05/18) IV Micafungin 100mg qd (05/28-05/30, 06/01-06/03) Ciprofloxacin Op Racquel 0.3% ear drops (06/02-06/03) -CXR is showing pneumonia, but CXR often remain abnormal for days to weeks. The infiltrate or consolidation can persist even though the infection has cleared. The radiographic improvement can take up to 4-6 weeks.? Patient is on minimal ventilator setting, oxygen requirement is stable, and has completed antibiotics course. -UTI unlikely sources of infection given low number of colonies and long antibiotics treatment in ICU. -Per ENT, Dr. Ojeda, patient does not have acute coalescent mastoiditis in either ear. Left and right middle ear is also not filled with effusion. -Chest x-ray 06/07 AM, showed a left lower lobe consolidation, ddx left lower lobe pneumonia versus mucous plug versus left pleural effusion versus mucous plug versus atelectasis lung ultrasound at bedside, effusion ruled out, no hepatization of the lung noted. Bedside bronchoscopy showed left lower lobe mucous plug, cleared with deep suction Plan: - Currently on IV Zosyn 06/05- planned until 06/18 for 14-day course coverage of Pseudomonas IV Zosyn 3.375g x1 (at 05/08) IV Ceftriaxone 1g x1 (at 05/08) IV Acyclovir 640mg q8hr (05/08-05/11) IV Ceftriaxone 2g q12hr (05/08-05/11) IV Vancomycin qd (05/08-05/11) since MRSA screen is negative IV Meropenem 1000mg q8hr (05/12-05/22, 05/24-05/25) IV Doxycycline (05/16-05/18) IV Micafungin 100mg qd (05/28-05/30, 06/01-06/03) IV fluconazole 06/05-06/07 Follow-up: - Once weaned off sedation and patient has cough reflex intact and more awake/alert, will consider chest physiotherapy. #Phimosis s/p dorsal slit procedure 06/08/2025 #Paraphimosis (resolved) #Balanitis (resolved) Diagnostic workup: - Edema and tenderness of the glans penis, Swelling of the distal retracted foreskin, Constricting band of tissue proximal to the head of the penis at the coronal sulcus on presentation, s/p reduction of the paraphimosis by urologist Dr. Vargas on 05/09 and phimosis dorsal slit on 06/08 Treatment: - Dilaudid 0.5 mg IVP every 4 hours as needed for breakthrough pain - Monitor for worsening swelling, bleeding, or blockage of urine #Seizure disorder by history #Cerebral palsy by history Diagnostic workup: - Active seizure disorder ruled out, multiple EEGs negative for seizure activity Treatment: - Continue Depakote 250 mg GT every 8 hours and Keppra 500 mg GT twice daily #Sinus tachycardia Differential diagnosis: Infection, hypersympathetic activity Diagnostic workup: - Did have positive sputum and urine culture for Pseudomonas and ESBL respectively - Patient's last fever was 06/12/2025 05:46 - Echocardiogram was obtained to rule out any vegetations TTE shows normal systolic function, EF 55 to 60%, diastolic dysfunction grade 1, no evidence of vegetation or endocarditis Treatment: - Downtitrated propranolol 10 mg to 5 mg 3 times daily - Continue antibiotics - Monitor for fever, use ibuprofen as needed for fever episode - Telemetry monitoring - Plan to titrate off propranolol completely in 3 days #Elevated alkaline phosphatase, improving #Low PTH #Abnormal nuclear medicine bone scan Differential diagnosis: increased osteoblastic activity in setting of vegetative state, bone infection (particularly of left mastoid), hypoparathyroidism, osteoarthritis Diagnostic workup: - PTH intact low at 3.6, calcium 9.9, vitamin D 25-OH 18.1 - Renal function intact, at baseline - Nuclear medicine bone scan shows minor asymmetric uptake left knee and mild increased uptake mid left tibia - Knee x-ray 06/06 and tibia-fibula x-ray 06/06 showed no findings diagnostic for osseous metastatic disease - MRI left leg 06/08 images severely degraded by continuous patient motion - No pain to palpation of bilateral lower extremities Treatment: - Continue sevelamer 800 mg 3 times daily - Patient to follow up on abnormal imaging outpatient #Tongue Laceration, traumatic #Gingivial Bleeding, Oral Trauma Diagnostic workup: -Known to have episodes of jaw spasms and teeth clenching with agitation. Had significant trauma to gums and tongue due to clenching of teeth 06/06 - No further bleeding appreciated in oral mucosa Treatment: - Patient required cisatracurium to relax jaw, pressure was applied locally, oral packing none, injections of lido?epinephrine x 3 to gums on 06/06 night Follow-up: - Monitor for bleeding #Bronchospasm #History of asthma -Magnesium for bronchodilator effect as needed. -Albuterol and Ipratropium as needed. #Failed extubation 05/12 #Acute hypoxic respiratory failure s/p tracheostomy #Ventilator dependent -Patient underwent tracheostomy on 05/26/2025 -Chest physiotherapy daily #Chronic PEG tube dependence -Nepro 1.8 Christ 1L RTH -Pro Stat Sugar Free 30 ml #Hyperphosphatemia -Sevelamer 1g GT 3 times daily, adjust if needed. #Normocytic Anemia #Leukocytosis-Resolving #Maculopapular rash to the buttocks-Resolving #Acute urinary retention-Resolved #Hypoalbuminemia-Resolved #Hyperkalemia-Resolved #Acute kidney injury-Resolved #Anion Gap Metabolic Acidosis-Resolved #Acute nonocclusive thrombus in the left brachial vein-Resolved Disposition: Tele Diet: Nepro 1.8 Christ 1L RTH and Pro Stat Sugar Free 30 ml GI prophylaxis: Lansoprazole 30mg GT qd DVT prophylaxis: SCDs,[id number] SC BID due to bleeding Code: FULL Assessment and plan discussed with my attending physician Dr. Ennis and Dr. Baer (PGY-2) Dr. Molina (PGY-1) - vice president of nursing Attending Provider Attestation/Addendum I have seen and examined the patient. I was physically present for the luke portions of the services provided including history, physical exam, diagnosis, treatment plans and orders. I agree with assessment and plan of care as documented by residents. Patient seen and examined at bedside this morning. Continues to have episodes of agitation with tachycardia and tachypnea. Overnight received multiple doses of IV Versed and Dilaudid. Tmax in last 24 hours, 102.3 ?F. Continues to be on mechanical ventilator, pressor support, 8 PEEP, saturating well. Continues to have oral secretions, needing frequent suctioning. Continues to be on [place], clonazepam, phenobarbital and oxycodone. Dosing for Keppra was decreased to 500 twice daily yesterday evening as recommended by neurology, appreciate recommendations. Lab results have mostly been stable. Chest abdomen/pelvis CT ordered, to rule out new source of infection, awaiting read. Had a family meeting this afternoon with in-house speed winder, in presence of home health care case manager. Patient's family expressed their concern and frustration regarding unclear etiology of fever, continuous fever spikes, LTAC placement and discharge planning. Family refused LTAC as they do not have doctors available 17/02. Explained in detail regarding extensive investigations, ongoing treatment, likely differentials of fever. At the end of discussion, family showed understanding, agrees with continuous care in the hospital and wishes to be informed of changes. All the questions were answered to their satisfaction. Even though this this note was carefully revised there may still be minor errors in conservation of resources commissioner due to voice recognition software. Jose Ennis MD
[2025-06-17] MEDS: POTASSIUM CHLORIDE 10% 20 MEQ/15 ML UDC 40 MEQ GT (08:28)
--- NOTE | 2025-06-17 08:30 | PC.NURSE ---
Dr. Alvarez ICU resident at bedside. made aware of HR, fevers, and RR. Suctioning patient. NO new orders.
--- NOTE | 2025-06-17 09:01 | XR_ITS ---
EXAMINATION: AP chest single view TECHNIQUE: AP supine portable chest single view Date and time: June 17, 2025, 0924 hours INDICATIONS: Post mucous plug FINDINGS: Tracheostomy tube tip 4 cm above haresh. Normal heart size No pneumonia or pulmonary edema IMPRESSION: No pneumonia or pulmonary edema
--- NOTE | 2025-06-17 09:09 | PC.SS ---
Follow up note: Pt continue to have fevers. Pt is possible d/c to LTAC or [facility] once medically cleared.
--- NOTE | 2025-06-17 09:49 | XR_ITS ---
Examination: CT chest with intravenous contrast CT abdomen with intravenous contrast CT pelvis with intravenous contrast 2-D coronal and sagittal reconstructions Time of exam: June 17, 2025, 1459 hours, comparison May 16, 2025 INDICATIONS: Sepsis, fever unknown origin today CTDI: vol (mGy) : 15.6 DLP: (mGycm): 1013 Technique: Multiple axial images of the chest, abdomen and pelvis with intravenous contrast, 3.0 mm slice thickness. Images obtained post intravenous injection Isovue 370 60 cc. 2-D sagittal and coronal reconstructions. Low dose protocols were performed. One or more of the following dose reduction techniques were used; automated exposure control, adjustment of the mA and/or KV according to patient size, use of iterative reconstruction technique. Findings: Tracheal tube tip 13 mm above haresh No thoracic aortic aneurysmal dilatation Pulmonary artery segments are not enlarged No current pneumonia or pleural disease No visualized liver or splenic lesion Contracted gallbladder No pancreatic mass Gastrostomy tube satisfactory position No significant perinephric stranding, no hydronephrosis Aorta normal size Patient motion degrades bowel imaging detail No obstruction No diverticulitis Urinary bladder wall is mildly thickened, no prostatomegaly IMPRESSION: No current pneumonia pulmonary edema or pleural disease No hydronephrosis No CT findings of appendicitis or bowel obstruction
--- NOTE | 2025-06-17 10:26 | ESCONSULT_ITS ---
<Statement entered by Alexandr Easton MD - 06/17/25 16:24> I have reviewed the note and agree with the resident's assessment & plan with exceptions as below. I have personally reviewed labs, imaging, home meds/prior records, examined the patient, formulated and discussed management plan with my attending. ICU team was consulted for no fever of unknown origin. Patient was recently downgraded to the medical floors on 06/12/2025 and at the time of downgrade patient had not had a fever for around 24 to 36 hours. Since being downgraded to medical floors patient has been spiking fevers, but most recently for the past 3 days he has been spiking fevers more continuously and higher with the maximum being 103.2 which was on 06/15/2025. Medical floor team as well as infectious disease and neurology stated that less likely infectious source and likely medication induced. Patient's medications have been reviewed and it was decided to discontinue Zosyn and lansoprazole yesterday, but fevers still occurred overnight. Primary team also decreased propranolol to 5 mg 3 times daily from 10 mg 3 times daily. At this time given that source of fevers is unknown we will do a CT chest/abdomen/pelvis with IV contrast to rule out any abscesses or any other infectious source. Chest x-ray done in the morning did not show any pneumonia or edema. Patient/blood cultures on 06/05/2025 have been negative since then and urine culture on 06/01/2025 have shown E. coli and sputum cultures on 06/05/2025 also showed Pseudomonas all which have been sensitive to Zosyn and patient had since then been on Zosyn until yesterday therefore finish course of antibiotics. At this time fevers due to medications is suspected. Primary care team had a discussion with patient's father and mother as well as power supply engineer in person today and we were present during this discussion. Patient's families were frustrated and upset given that they had gotten a call that the patient might likely be discharged today or tomorrow and that they stated that he was still spiking fevers. It was clarified to them that patient cannot be discharged if he was not medically clear and there is also unclear that he did not spike any fevers. Had a long discussion with patient's father and mother about everything that has been done for the patient including imaging and ruling out diagnosis this is meningitis and even seizures. At the end of the discussion patient's parents had all their questions answered. Patient's parents were upset and had asked that there was any possibility that the patient could be transferred to another facility if the fever etiology was still unknown. Also stated that if it was feasible from the perspective to take the patient to another facility by themselves, but again explained that the patient was still on the mechanical ventilator receiving high pressure support therefore it was not recommended. Otherwise at the end of the discussion they were understanding and primary team to discuss further updates with the patient's family directly and to decide on if patient should be transferred. Alexandr Easton PGY2 Disclaimer: Even though this this note was dictated by speech recognition and even though it was carefully revised there may still be minor errors in electronic gluer due to voice recognition software. HPI Data of Consult Patient: known to practice within the last 3 years Consult date: 06/17/25 Requesting Physician: Jose Ennis MD Admitting Provider: Natasha Moreira MD Attending Provider: Jose Ennis MD Primary Care Provider: Tavares Cole MD Consult Narrative Reason for consult: Fever of unknown origin History of present illness: 25-year-old male with history of cerebral palsy, asthma, seizure disorder, chronic mastoiditis, recurrent pneumonia, and chronic PEG tube dependence presented on 05/08/2025 with fever and seizure, was admitted for sepsis workup, and later transferred to the ICU on 05/09/25 for increased agitation, tachypnea, and increased secretions with recurrent fevers. Was downgraded on 05/31/25 due to resolution of fever for at least 48 hours however was upgraded back on 06/05/25 due to increased work of breathing, ventilator asynchrony agitation and fever. Patient was downgraded on 06/12 due to stable condition on pressure support with improvement of agitation and lack of fever over 24 hours. ICU team was consulted on this patient due to recurrent fevers of unknown origin. Fever started intermittently since he was downgraded on 06/12 with a Tmax of 103.2 ?F as noted on 06/15. The patient continues to be tachypneic and tachycardic since downgrade as well. Primary team has attempted to decrease the patient's clonazepam, but return to dosage and frequency that the patient was on in the ICU as they were concerned for increased agitation and possibly contributing to these recurrent fevers. Primary team has weaned propranolol down to 5 mg 3 times daily from 10 mg 3 times daily since downgrade from ICU and has increased the patient's deutetrabenazine to 9 mg twice daily from 6 mg twice daily. The patient's family and the primary team had a goals of care discussion regarding the disposition of the patient, and reached a conclusion that LTAC would be preferable for the patient as he remains on mechanical ventilation through tracheostomy tube and as recommended by Dr. Major, the medical laboratory technologist of the subacute at [facility]. Due to the patient's recurrent fevers since his ICU downgrade, the primary team has consulted the ICU team to examine recurrent fevers of unknown origin to ensure medical stability for transfer to LTAC. The patient was seen and examined at bedside. The patient's tardive dyskinesia movements appeared to be a lower amplitude and frequency compared to his movements in the ICU. The patient was shown to be tachypneic and tachycardic and continues to be on pressure support mechanical ventilation. Patient was suctioned from tracheostomy tube, which did not show significant improvement in the patient's respiratory rate. Increasing pressure support did decrease the patient's respiratory rate slightly from the mid 40s to the low 40s. Patient's last recorded fever at this time was this morning at 101.1 ?F. Patient's dorsal slit was examined, does not appear inflamed or swollen. Overall, the patient does not appear overtly toxic or in any distress. Chest x-ray was ordered to rule out any possible mucous plugs given the patient's frequent secretions and history of requiring bronchoscopy for clearance of mucous plugs, which is noted to be negative for any acute abnormalities. At this time, there is low suspicion for an infectious process given the patient's stable white count and lack of clinical signs suggesting overt sepsis as compared to when the patient was in the ICU. His fevers of unknown origin or more likely medication related. Will recommend that the patient's Zosyn be discontinued and progressively wean the patient off of his extensive medication regimen as tolerated. Deutetrabenazine has not been shown to cause fevers, however due to the MOA of deutetrabenazine, it can increase serotonin levels, which could be contributing to the patients fevers of unknown origin, would be risk vs benefit as the deutetrabenazine does improve tardive dyskinesia. Will order CT chest/abdomen/pelvis with contrast to investigate any occult findings that may explain his fevers of unknown origin. Later in the afternoon, the patient's mother and father had a discussion with the primary team and the ICU team, with social work coordinator Rishi and in-house power supply engineer Lizbeth. The patient's parents expressed significant dissatisfaction with being told that her son would be transferred to an LTAC while his fevers were still not under control by a staff member from the hospital. The primary team clarified the miscommunication, stating that they were not planning to transfer the patient to an LTAC while the patient's fevers still remain uncontrolled. The patient's family expressed understanding, but remained frustrated that patient is not receiving day same level of attention and care that they had come to expect while the patient was in the ICU. The patient's family discussed that they wanted additional testing to uncover the source of the patient's fevers of unknown origin, to which the primary team clarified that they are actively investigating the source, but believe that it may be secondary to his extensive list of medications. The patient's family asked for a CT head with contrast, to which the primary team explained that several imaging of the patient's head have already been performed including an MRI, which is noted to be even more sensitive to abnormalities. Of note, the patient had already received a CT middle/inner ear with contrast on 05/08/2025 that shows a significant portion of the head, which was already reviewed by ENT physician Dr. Ojeda. The patient primary team also discussed how the ENT physician who had seen the patient in the past had evaluated the patient and his imaging, and thus far have not recommended further antibiotic treatment for any sinus infection. The patient's family continued to express dissatisfaction, asking the primary team to transfer the patient to a facility of high-level care as they believe that the hospitalists at [facility] have exhausted all of their options and expertise. They expressed that they do not want the patient to go to the LTAC as the physicians would not be there daily, and if they could, they would take the patient out of [facility] to a facility of higher level care themselves, but understands that they cannot do that with the patient requiring mechanical ventilation. The primary team expressed sympathy with the patient's parents and answered all their questions, stating that the primary team will call the patient's parents directly for daily updates similar to what the patient's parents had been receiving the patient was in the ICU just prior to the patient's most recent downgrade. The patient's family expressed gratitude to the primary team for listening to their request and did not express any further questions or complaints at the end of the discussion. cc:: cc: Jose Ennis MD Review of Systems Review of Systems Systems Reviewed: All systems reviewed, normal except as documented Exam Vital Signs Temp Pulse Resp BP Pulse Ox O2 Del Method O2 Flow Rate 100.4 F 135 H 45 H 147/98 H 99 Mechanical Ventilation 35 06/17/25 08:38 06/17/25 08:30 06/17/25 08:30 06/17/25 08:30 06/17/25 08:30 06/17/25 08:30 06/17/25 08:30 FiO2 25 06/17/25 08:30 Narrative Exam Gen: Alert, random, non-purposeful twisting movement of arms and periodic grimacing of face HEENT: NCAT, EOMI, Pupils reactive KARLO, not icteric. External ears normal. No rhinorrhea. Moist mucous membranes with no visible blood. Neck: Supple, full range of motion, no observable masses, No meningeal sign. Lungs: Coarse breath sounds bilateral, mechanically ventilated. CV: Tachycardic, no murmurs appreciated. Abdomen: Soft, nondistended, No rebound tenderness, PEG tube in place, peristalsis present. MSK: No lower extremity edema, no redness, peripheral pulses presents, Contracted and swollen hands, decreased tone : Penis glan visible s/p dorsal slit procedure. No erythema or swelling present. Skin: No, petechiae, lesions, erythematous Neuro: Alert and moving extremities, pupils reactive Results Labs 06/17/25 04:22 06/17/25 04:22 Labs: Short CBC 06/17/25 Range/Units 04:22 WBC 9.9 (3.8-10.6) Thou/mm3 Hgb 8.2 L (13.5-16.0) g/dL Hct 25.6 L (41.0-53.0) % Plt Count 564 H (140-440) Thou/mm3 BMP 06/17/25 04:22 Sodium 141 Potassium 3.3 L Chloride 103 Carbon Dioxide 25.1 BUN 8 L Creatinine 0.7 Glucose 85 Calcium 9.9 Cardiac Enzymes 06/17/25 Range/Units 04:22 Total Creatine Kinase 125 D (34-171) U/L Liver Function 06/17/25 Range/Units 04:22 Total Bilirubin 0.2 L (0.3-1.2) mg/dL AST 31 (0-34) U/L ALT 33 (10-49) U/L Alkaline Phosphatase 130 H (46-116) U/L Albumin 4.3 (3.5-5.0) gm/dL ABG Interpretation ABG results: 05/09/25 05/09/25 05/09/25 11:56 13:40 18:50 ABG pH 7.40 7.27 L D 7.28 L ABG pCO2 40 43 55 H D ABG pO2 131 H 53 L* D 70 L ABG HCO3 25 20 26 ABG O2 Saturation 99 H 81 L 92 ABG Base Excess 0 -7 L -2 VBG pH VBG pCO2 VBG pO2 VBG Base Excess 05/10/25 05/11/25 05/12/25 00:14 05:06 01:18 ABG pH 7.35 7.33 L 7.39 ABG pCO2 42 D 54 H D 48 ABG pO2 103 D 93 94 ABG HCO3 23 28 H 29 H ABG O2 Saturation 99 H 98 98 ABG Base Excess -3 2 3 VBG pH VBG pCO2 VBG pO2 VBG Base Excess 05/12/25 05/12/25 05/13/25 03:58 11:50 05:10 ABG pH 7.46 H 7.39 7.19 L* D ABG pCO2 41 48 60 H D ABG pO2 105 58 L* D 114 H D ABG HCO3 29 H 29 H 23 ABG O2 Saturation 99 H 90 L 98 ABG Base Excess 5 H 4 H -6 L VBG pH VBG pCO2 VBG pO2 VBG Base Excess 05/17/25 05/18/25 05/19/25 01:30 04:09 04:43 ABG pH 7.38 7.43 7.47 H ABG pCO2 46 44 43 ABG pO2 90 83 80 L ABG HCO3 27 H 29 H 31 H ABG O2 Saturation 98 97 97 ABG Base Excess 2 5 H 7 H VBG pH VBG pCO2 VBG pO2 VBG Base Excess 05/21/25 05/21/25 05/31/25 04:18 06:33 08:06 ABG pH 7.37 D 7.46 H ABG pCO2 50 H 38 D ABG pO2 40 L* D 121 H D ABG HCO3 29 H 27 H ABG O2 Saturation 66 L 100 H ABG Base Excess 3 3 VBG pH 7.55 VBG pCO2 31 L VBG pO2 144 H VBG Base Excess 5 H 06/05/25 06/05/25 06/06/25 13:37 23:46 05:20 ABG pH 7.47 H 7.45 ABG pCO2 35 38 ABG pO2 200 H 54 L* D ABG HCO3 25 26 ABG O2 Saturation 101 H 89 L ABG Base Excess 2 2 VBG pH 7.50 VBG pCO2 34 L VBG pO2 90 H VBG Base Excess 4 H 06/10/25 17:41 ABG pH ABG pCO2 ABG pO2 ABG HCO3 ABG O2 Saturation ABG Base Excess VBG pH 7.40 VBG pCO2 43 VBG pO2 43 VBG Base Excess 2 Quality Measures Quality Measures VTE prophylaxis (SCDs) and sepsis Current suspected stage: ruled out Possible source: pulmonary Blood cultures ordered: yes Antibiotic ordered: No Medications Home Medications and Allergies Home Medications ?Medication ?Instructions ?Recorded ?Confirmed ?Type ofloxacin 0.3 % ear drops in a 5 drp otic (ear) BID 05/08/25 History dropperette omeprazole 20 mg capsule,delayed 40 mg feeding tube DA BOB 09/27/23 06/07/25 History release levetiracetam 100 mg/mL oral 800 mg feeding tube Q12H 05/08/24 06/07/25 History solution montelukast 10 mg tablet 10 mg feeding tube DAILY 07/2005/08/25 History quetiapine 100 mg tablet 100 mg feeding tube HS 05/0805/08/25 History quetiapine 50 mg tablet 50 mg feeding tube QAM 05/0805/08/25 History albuterol sulfate 90 mcg/actuation 2 puff inhalation Q 6H 06/07/25 06/07/25 History aerosol inhaler Allergies Allergy/AdvReac Type Severity Reaction Status Date / Time valbenazine (From Ingrezza) Allergy Severe Agitated Verified 11/02/23 00:43 Sulfa (Sulfonamide Allergy Intermediate Rash Verified 11/02/23 00:43 Antibiotics) glycopyrrolate Allergy Rash Verified 11/02/23 00:43 haloperidol Allergy Rash Verified 11/02/23 00:43 sulfamethoxazole (From Allergy Rash Verified 11/02/23 00:43 Bactrim) trimethoprim (From Bactrim) Allergy Rash Verified 11/02/23 00:43 fentanyl AdvReac Intermediate serotonin Verified 05/31/25 12:02 syndrome guaifenesin AdvReac Intermediate serotonin Verified 05/31/25 12:02 syndrome Visit Medications Acetaminophen (Acetaminophen Racquel 325 Mg/10 Ml Udc) 325 mg GT Q4HR PRN PRN Reason: pain (1-3) or fever > 100.4 Stop: 07/09/25 16:12 Last Admin: 06/17/25 08:38 Dose: 325 mg Clonazepam (Clonazepam 0.5 Mg Tablet) 0.5 mg PO QID KYA Stop: 06/19/25 20:59 Last Admin: 06/17/25 05:51 Dose: 0.5 mg Deutetrabenazine (Deutetrabenazine 6 Mg Tablet (Non-Formulary)) 9 mg GT BIDWM KYA Stop: 07/14/25 07:59 Last Admin: 06/17/25 08:22 Dose: 9 mg Ferrous Sulfate (Ferrous Sulfate 300 Mg/5 Ml Udc) 325 mg PO QOD KYA Stop: 07/01/25 08:59 Last Admin: 06/17/25 08:18 Dose: 325 mg Heparin Sodium (Porcine) (Heparin Sod Inj 5000 Unit/Ml Vial) 5,000 unit SC Q8HR KYA Stop: 06/22/25 13:59 Last Admin: 06/17/25 05:52 Dose: 5,000 unit Hydromorphone HCl (Hydromorphone Inj 2 Mg/Ml Vial) 0.5 mg IVP Q4HR PRN; Protocol PRN Reason: BREAKTHROUGH PAIN Stop: 06/19/25 06:55 Last Admin: 06/17/25 09:04 Dose: 0.5 mg Ibuprofen (Ibuprofen Susp 100 Mg/5 Ml Udc) 100 mg GT Q6HR PRN; Protocol PRN Reason: PAIN 1-3 OR FEVER > 101 Stop: 07/15/25 15:46 Last Admin: 06/16/25 22:38 Dose: 100 mg Levetiracetam (Levetiracetam Liqd 500 Mg/5 Ml Udc) 500 mg GT BID KYA Stop: 07/16/25 20:59 Last Admin: 06/17/25 08:18 Dose: 500 mg Midazolam HCl (Midazolam Inj 1 Mg/Ml Vial 2 Ml) 4 mg IVP Q2HR PRN; Protocol PRN Reason: Agitation or pain Stop: 06/17/25 17:59 Last Admin: 06/17/25 08:15 Dose: 4 mg Ondansetron HCl (Ondansetron Odt 4 Mg Tabrap) 4 mg GT Q6HR PRN; Protocol PRN Reason: NAUSEA OR VOMITING Stop: 06/26/25 14:36 Oxycodone HCl (Oxycodone Hcl 5 Mg Ir Tab) 10 mg GT TID KYA Stop: 06/21/25 15:44 Last Admin: 06/17/25 05:49 Dose: 10 mg Phenobarbital (Phenobarbital 32.4 Mg Tablet) 129.6 mg GT TID KYA Stop: 06/24/25 14:44 Last Admin: 06/17/25 05:48 Dose: 129.6 mg Propranolol HCl (Propranolol 10 Mg Tablet) 5 mg GT TID KYA Stop: 07/12/25 13:59 Last Admin: 06/17/25 05:50 Dose: 5 mg Sevelamer Carbonate (Sevelamer Carbonate 0.8 Gm Packet (Non-Formulary)) 0.8 gm GT TIDWM KYA Stop: 07/11/25 08:59 Last Admin: 06/17/25 08:19 Dose: 0.8 gm Sterile Water (Water, Sterile Inj 50 Ml Vial) 10 ml GT BIDWM KYA; Protocol Stop: 07/14/25 17:29 Last Admin: 06/17/25 08:23 Dose: 10 ml Valproic Acid (Valproic Acid Syrup 250 Mg/5 Ml Udc) 500 mg GT BID KYA Stop: 07/10/25 08:59 Last Admin: 06/17/25 08:18 Dose: 500 mg Discontinued Medications Acetaminophen (Acetaminophen Supp 650 Mg Supp) 975 mg UT X1 ONE Stop: 05/08/25 01:03 Last Admin: 05/08/25 01:27 Dose: 975 mg Acetaminophen (Acetaminophen 325 Mg Tablet) 650 mg PO X1 ONE Stop: 05/09/25 02:53 Last Admin: 05/09/25 02:59 Dose: 650 mg Acetaminophen (Acetaminophen 325 Mg Tablet) 325 mg PO Q6HR PRN PRN Reason: Fever >100.4 Stop: 06/13/25 05:05 Acetaminophen (Acetaminophen 325 Mg Tablet) 650 mg PO Q6HR PRN PRN Reason: Fever >100.4 Stop: 06/13/25 05:12 Last Admin: 05/14/25 18:15 Dose: 650 mg Acetaminophen (Acetaminophen Racquel 325 Mg/10 Ml Udc) 650 mg NG Q4HR PRN PRN Reason: fever >100.4 Stop: 06/27/25 10:35 Last Admin: 06/02/25 12:04 Dose: 650 mg Acetaminophen (Acetaminophen 325 Mg Tablet) 325 mg PO X1 ONE Stop: 06/09/25 16:14 Last Admin: 06/09/25 16:21 Dose: 325 mg Acetaminophen (Acetaminophen Racquel 325 Mg/10 Ml Udc) 325 mg GT Q6HR PRN PRN Reason: pain (1-3) or fever > 101.3 Stop: 07/09/25 16:12 Acetaminophen (Acetaminophen Racquel 325 Mg/10 Ml Udc) 325 mg GT Q4HR PRN PRN Reason: pain (1-3) or fever > 100.4 Stop: 07/09/25 16:12 Last Admin: 06/16/25 11:20 Dose: 325 mg Acetic Acid (Acetic Acid Irrig 0.25% 500 Ml Btl) 250 ml IRRIG QDAY [facility] Stop: 07/03/25 11:59 Last Admin: 06/03/25 14:17 Dose: Not Given Acetic Acid (Acetic Acid Irrig 0.25% 500 Ml Btl) 250 ml IRRIG BID [facility] Stop: 07/03/25 20:59 Last Admin: 06/08/25 09:35 Dose: 250 ml Albuterol (Albuterol Rt 2.5 Mg/3 Ml Nebu) 2.5 mg INH X1 ONE Stop: 05/08/25 04:02 Last Admin: 05/08/25 04:13 Dose: 2.5 mg Albuterol (Albuterol Rt 2.5 Mg/0.5 Ml Nebu) 15 mg INH X1 ONE Stop: 05/09/25 19:36 Last Admin: 05/09/25 19:56 Dose: 15 mg Albuterol (Albuterol Rt 2.5 Mg/0.5 Ml Nebu) 2.5 mg INH X1 ONE Stop: 05/17/25 11:44 Last Admin: 05/17/25 12:32 Dose: 2.5 mg Albuterol/Ipratropium (Albuterol/Ipratropium (Duoneb) Rt Racquel 3 Ml Nebu) 3 ml INH Q2HR PRN PRN Reason: SHORTNESS OF BREATH OR WHEEZE Stop: 06/07/25 16:12 Albuterol/Ipratropium (Albuterol/Ipratropium (Duoneb) Rt Racquel 3 Ml Nebu) 3 ml INH Q2HR PRN PRN Reason: SHORTNESS OF BREATH OR WHEEZE Stop: 06/08/25 18:18 Last Admin: 05/28/25 06:34 Dose: 3 ml Albuterol/Ipratropium (Albuterol/Ipratropium (Duoneb) Rt Racquel 3 Ml Nebu) 3 ml INH X1 ONE Stop: 05/21/25 07:11 Last Admin: 05/21/25 07:17 Dose: 3 ml Albuterol/Ipratropium (Albuterol/Ipratropium (Duoneb) Rt Racquel 3 Ml Nebu) 3 ml INH X1 ONE Stop: 05/22/25 19:02 Last Admin: 05/22/25 20:28 Dose: 3 ml Baclofen (Baclofen 10 Mg Tablet) 10 mg PO TID PRN PRN Reason: Spasms Stop: 06/15/25 00:25 Last Admin: 05/20/25 01:40 Dose: 10 mg Calcium Carbonate (Calcium Carbonate 600 Mg Tablet) 600 mg GT QDAY KYA Stop: 06/19/25 18:19 Last Admin: 06/03/25 08:40 Dose: 600 mg Calcium Gluconate (Calcium Gluconate 10% Inj 1 Gm/10 Ml Vial) 1 gm IV X1 ONE Stop: 05/22/25 19:02 Last Admin: 05/22/25 19:21 Dose: 1 gm Ciprofloxacin (Ciprofloxacin Op Racquel 0.3% 5 Ml Btl) 0 drop BOTH EYES Q4HR KYA Stop: 07/02/25 15:14 Last Admin: 06/03/25 05:39 Dose: 1 drop Ciprofloxacin/Dexamethasone (Ciprofloxacin/Dexam Otic Racquel 7.5 Ml Btl) 3 drop BOTH EARS BID [facility] Stop: 07/03/25 09:59 Last Admin: 06/03/25 10:36 Dose: Not Given Ciprofloxacin/Dexamethasone (Ciprofloxacin/Dexam Otic Susp 7.5 Ml Btl) 3 drop BOTH EARS BID KYA Stop: 07/03/25 10:29 Last Admin: 06/03/25 11:46 Dose: Not Given Cisatracurium Besylate (Cisatracurium Inj 10 Mg/Ml Vial 20 Ml) 6.8 mg IV X1 ONE Stop: 06/06/25 16:43 Last Admin: 06/06/25 19:53 Dose: Not Given Clonazepam (Clonazepam 0.5 Mg Tablet) 2 mg PO TID [facility] Stop: 05/24/25 08:44 Last Admin: 05/21/25 05:09 Dose: 2 mg Clonazepam (Clonazepam 0.5 Mg Tablet) 1 mg PO BID [facility] Stop: 05/26/25 20:59 Last Admin: 05/23/25 19:40 Dose: Not Given Clonazepam (Clonazepam 0.5 Mg Tablet) 2 mg PO BID [facility] Stop: 05/28/25 20:59 Last Admin: 05/26/25 08:27 Dose: 2 mg Clonazepam (Clonazepam 0.5 Mg Tablet) 1 mg PO X1 ONE Stop: 05/23/25 09:40 Last Admin: 05/23/25 09:57 Dose: 1 mg Clonazepam (Clonazepam 0.5 Mg Tablet) 2 mg PO TID [facility] Stop: 05/31/25 13:59 Last Admin: 05/31/25 05:34 Dose: 2 mg Clonazepam (Clonazepam 0.5 Mg Tablet) 0.5 mg PO BID [facility] Stop: 06/13/25 10:29 Last Admin: 06/09/25 21:01 Dose: 0.5 mg Clonazepam (Clonazepam 0.5 Mg Tablet) 0.5 mg PO TID KYA Stop: 06/15/25 05:59 Last Admin: 06/11/25 05:37 Dose: 0.5 mg Clonazepam (Clonazepam 0.5 Mg Tablet) 0.5 mg PO X1 ONE Stop: 06/11/25 03:18 Last Admin: 06/11/25 03:25 Dose: 0.5 mg Clonazepam (Clonazepam 0.5 Mg Tablet) 0.5 mg PO QID [facility] Stop: 06/16/25 11:59 Last Admin: 06/12/25 05:48 Dose: 0.5 mg Clonazepam (Clonazepam 0.5 Mg Tablet) 0.5 mg PO QID [facility] Stop: 06/16/25 11:59 Clonazepam (Clonazepam 0.5 Mg Tablet) 0.5 mg PO QID [facility] Stop: 06/16/25 11:59 Last Admin: 06/14/25 05:38 Dose: 0.5 mg Clonazepam (Clonazepam 0.5 Mg Tablet) 0.5 mg PO TID [facility] Stop: 06/19/25 13:59 Last Admin: 06/14/25 13:56 Dose: Not Given Phenobarbital Sodium 130 mg/ (Sodium Chloride 12 ml) 0 mg IVP X1 ONE Stop: 05/16/25 09:13 Last Admin: 05/16/25 09:54 Dose: 130 mg Phenobarbital Sodium 130 mg/ (Sodium Chloride 12 ml) 0 mg IVP Q6H PRN PRN Reason: AGITATION Stop: 05/30/25 09:09 Phenobarbital Sodium 130 mg/ (Sodium Chloride 12 ml) 0 mg IVP Q6H PRN PRN Reason: AGITATION Stop: 05/30/25 22:14 Last Admin: 05/17/25 08:50 Dose: 130 mg Phenobarbital Sodium 130 mg/ (Sodium Chloride 12 ml) 0 mg IVP X1 ONE Stop: 05/21/25 21:01 Last Admin: 05/21/25 21:30 Dose: 130 mg Phenobarbital Sodium 130 mg/ (Sodium Chloride 12 ml) 0 mg IVP X1 ONE Stop: 05/23/25 08:38 Last Admin: 05/23/25 08:55 Dose: 130 mg Phenobarbital Sodium 260 mg/ (Sodium Chloride 24 ml) 0 mg IVP Q6HR [facility] Stop: 06/06/25 11:59 Cyproheptadine HCl (Cyproheptadine Hcl 4 Mg Tablet) 12 mg PO X1 ONE Stop: 05/28/25 10:45 Last Admin: 05/28/25 12:12 Dose: Not Given Cyproheptadine HCl (Cyproheptadine Hcl 4 Mg Tablet) 2 mg PO Q2H [facility] Stop: 06/27/25 12:59 Last Admin: 05/28/25 15:56 Dose: Not Given Cyproheptadine HCl (Cyproheptadine Hcl 4 Mg Tablet) 2 mg PO Q2H [facility] Stop: 06/29/25 08:59 Deutetrabenazine (Deutetrabenazine 6 Mg Tablet (Non-Formulary)) 6 mg PO BIDWM KYA Stop: 07/11/25 09:59 Last Admin: 06/11/25 11:25 Dose: Not Given Deutetrabenazine (Deutetrabenazine 6 Mg Tablet (Non-Formulary)) 6 mg GT BIDWM KYA Stop: 07/11/25 10:29 Last Admin: 06/13/25 19:01 Dose: 6 mg Dexamethasone Sodium Phosphate (Dexamethasone Sod Phos Inj 4 Mg/Ml Vial) 4 mg IVP X1 ONE Stop: 05/12/25 10:01 Last Admin: 05/12/25 10:07 Dose: 4 mg Diazepam (Diazepam Inj 5 Mg/Ml Vial 2 Ml) 2 mg IVP X1 ONE Stop: 05/09/25 04:10 Last Admin: 05/09/25 04:27 Dose: 2 mg Diazepam (Diazepam Inj 5 Mg/Ml Vial 2 Ml) 5 mg IVP X1 PRN PRN Reason: Prior to CT Scan Stop: 05/14/25 07:54 Diazepam (Diazepam Inj 5 Mg/Ml Vial 2 Ml) 5 mg IVP X1 ONE Stop: 05/09/25 08:07 Last Admin: 05/09/25 08:11 Dose: 5 mg Diazepam (Diazepam Inj 5 Mg/Ml Vial 2 Ml) 5 mg IVP X1 PRN PRN Reason: AGITATION (MILD) Diazepam (Diazepam Inj 5 Mg/Ml Vial 2 Ml) 2 mg IV Q4HR PRN PRN Reason: ANXIETY Stop: 05/14/25 10:55 Last Admin: 05/09/25 11:14 Dose: 2 mg Diazepam (Diazepam Inj 5 Mg/Ml Vial 2 Ml) 5 mg IVP X1 ONE Stop: 05/09/25 18:41 Last Admin: 05/09/25 20:56 Dose: Not Given Diazepam (Diazepam Inj 5 Mg/Ml Vial 2 Ml) 5 mg IVP X1 ONE Stop: 05/10/25 22:02 Last Admin: 05/10/25 22:15 Dose: 5 mg Diphenhydramine HCl (Diphenhydramine Inj 50 Mg/Ml Vial) 12.5 mg IM X1 ONE Stop: 05/08/25 13:16 Last Admin: 05/08/25 13:31 Dose: 12.5 mg Diphenhydramine HCl (Diphenhydramine Inj 50 Mg/Ml Vial) 25 mg IVP X1 ONE Stop: 05/08/25 14:45 Last Admin: 05/08/25 14:58 Dose: 25 mg Diphenhydramine HCl (Diphenhydramine Inj 50 Mg/Ml Vial) 25 mg IVP X1 ONE Stop: 05/08/25 15:31 Last Admin: 05/08/25 15:42 Dose: 25 mg Diphenhydramine HCl (Diphenhydramine Inj 50 Mg/Ml Vial) 25 mg IVP X1 ONE Stop: 05/12/25 09:44 Last Admin: 05/12/25 10:16 Dose: Not Given Diphenhydramine HCl (Diphenhydramine Inj 50 Mg/Ml Vial) 50 mg IVP X1 ONE Stop: 05/12/25 09:47 Last Admin: 05/12/25 10:07 Dose: 50 mg Diphenhydramine HCl (Diphenhydramine Inj 50 Mg/Ml Vial) 50 mg IVP Q6HR PRN PRN Reason: AGITATION OR ANXIETY Stop: 06/11/25 16:39 Last Admin: 05/13/25 04:04 Dose: 50 mg Enoxaparin Sodium (Enoxaparin Sod Inj 30 Mg/0.3 Ml Syringe) 30 mg SC QDAY KYA Stop: 05/25/25 08:59 Last Admin: 05/15/25 08:55 Dose: 30 mg Enoxaparin Sodium (Enoxaparin Sod Inj 40 Mg/0.4 Ml Syringe) 40 mg SC QDAY KYA; Protocol Stop: 05/30/25 08:59 Last Admin: 05/16/25 10:20 Dose: 40 mg Enoxaparin Sodium (Enoxaparin Sod Inj 80 Mg/0.8 Ml Syringe) 80 mg SC BID KYA; Protocol Stop: 05/30/25 20:59 Enoxaparin Sodium (Enoxaparin Sod Inj 40 Mg/0.4 Ml Syringe) 40 mg SC QDAY KYA Stop: 06/06/25 11:14 Last Admin: 05/30/25 08:31 Dose: 40 mg Enoxaparin Sodium (Enoxaparin Sod Inj 80 Mg/0.8 Ml Syringe) 70 mg SC BID KYA Stop: 06/13/25 20:59 Last Admin: 06/06/25 09:44 Dose: 70 mg Epinephrine (Epinephrine Rt Racquel 0.5 Ml Nebu) 0.5 ml INH X1 ONE Stop: 05/12/25 09:34 Last Admin: 05/12/25 09:38 Dose: 0.5 ml Etomidate (Etomidate Inj 2 Mg/Ml Vial 10 Ml) 20 mg IVP X1 ONE Stop: 05/13/25 04:21 Last Admin: 05/13/25 04:46 Dose: 20 mg Fentanyl Citrate (Fentanyl Cit Inj 50 Mcg/Ml Amp 2ml) 100 mcg IVP X1 ONE Stop: 05/09/25 15:28 Last Admin: 05/09/25 15:48 Dose: 100 mcg Fentanyl Citrate (Fentanyl Cit Inj 50 Mcg/Ml Amp 2ml) 100 mcg IVP X1 ONE Stop: 05/10/25 15:11 Last Admin: 05/10/25 15:24 Dose: 100 mcg Fentanyl Citrate (Fentanyl Cit Inj 50 Mcg/Ml Amp 2ml) 100 mcg IVP X1 ONE Stop: 05/11/25 15:41 Last Admin: 05/11/25 15:46 Dose: 100 mcg Fentanyl Citrate (Fentanyl Cit Inj 50 Mcg/Ml Amp 2ml) 100 mcg IM X1 ONE Stop: 05/17/25 10:41 Last Admin: 05/17/25 11:56 Dose: Not Given Fentanyl Citrate (Fentanyl Cit Inj 50 Mcg/Ml Amp 2ml) 100 mcg IVP X1 ONE Stop: 05/17/25 11:46 Last Admin: 05/17/25 11:20 Dose: 100 mcg Fentanyl Citrate (Fentanyl Cit Inj 50 Mcg/Ml Amp 2ml) 50 mcg IVP X1 ONE Stop: 06/05/25 17:59 Last Admin: 06/05/25 17:58 Dose: 50 mcg Fentanyl Citrate (Fentanyl Cit Inj 50 Mcg/Ml Amp 2ml) 50 mcg IVP X1 ONE Stop: 06/08/25 13:04 Last Admin: 06/08/25 13:05 Dose: 50 mcg Fentanyl Citrate (Fentanyl Cit Inj 50 Mcg/Ml Amp 2ml) 50 mcg IVP X1 ONE Stop: 06/08/25 13:15 Last Admin: 06/08/25 13:16 Dose: 50 mcg Fentanyl Citrate (Fentanyl Cit Inj 50 Mcg/Ml Amp 2ml) 50 mcg IVP X1 ONE Stop: 06/08/25 13:28 Last Admin: 06/08/25 13:29 Dose: 50 mcg Ferrous Sulfate (Ferrous Sulf 325 Mg Tablet) 325 mg PO QOD KYA Stop: 07/01/25 04:59 Last Admin: 06/01/25 05:14 Dose: 325 mg Guaifenesin (Guaifenesin Syrup 200 Mg/10 Ml Udc) 200 mg GT QID PRN; Protocol PRN Reason: ET secretions Stop: 06/23/25 20:30 Last Admin: 05/24/25 20:54 Dose: 200 mg Haloperidol Lactate (Haloperidol Lact Inj 5 Mg/Ml Vial) 2 mg IM X1 ONE Stop: 05/08/25 13:15 Last Admin: 05/08/25 13:30 Dose: 2 mg Haloperidol Lactate (Haloperidol Lact Inj 5 Mg/Ml Vial) 2.5 mg IV X1 ONE Stop: 05/08/25 14:47 Last Admin: 05/08/25 15:01 Dose: 2.5 mg Haloperidol Lactate (Haloperidol Lact Inj 5 Mg/Ml Vial) 5 mg IV Q6HR PRN PRN Reason: AGITATION (SEVERE) Stop: 05/13/25 14:55 Last Admin: 05/09/25 07:20 Dose: 5 mg Haloperidol Lactate (Haloperidol Lact Inj 5 Mg/Ml Vial) 0.5 mg IV X1 ONE Stop: 05/09/25 13:29 Last Admin: 05/09/25 15:09 Dose: Not Given Heparin Sodium (Porcine) (Heparin Sod Inj 5000 Unit/Ml Vial) 5,000 unit SC Q8HR [facility] Stop: 05/28/25 16:44 Heparin Sodium (Porcine) (Heparin Sod Inj 5000 Unit/Ml Vial) 6,400 unit 80 unit/kg (6400 unit) IV X1 ONE; Protocol Stop: 05/16/25 18:56 Last Admin: 05/16/25 21:24 Dose: 6,400 unit Heparin Sodium (Porcine) (Heparin Sod Inj 5000 Unit/Ml Vial) 6,376 unit IV PRN ONE Stop: 05/18/25 00:01 Last Admin: 05/18/25 00:26 Dose: 6,376 unit Heparin Sodium (Porcine) (Heparin Sod Inj 5000 Unit/Ml Vial) 5,000 unit SC Q8HR [facility] Stop: 06/02/25 05:59 Last Admin: 05/23/25 05:25 Dose: 5,000 unit Hydrocortisone Sodium Succinate (Hydrocortisone Sod Succ Inj 100 Mg 2 Ml Vial) 100 mg IV X1 ONE Stop: 05/08/25 16:14 Last Admin: 05/08/25 16:32 Dose: 100 mg Hydromorphone HCl (Hydromorphone Inj 2 Mg/Ml Vial) 1 mg IVP X1 ONE Stop: 05/09/25 13:32 Last Admin: 05/09/25 13:36 Dose: 1 mg Hydromorphone HCl (Hydromorphone Inj 2 Mg/Ml Vial) 1 mg IVP Q4HR PRN PRN Reason: Breakthrough Pain Stop: 05/14/25 13:35 Hydromorphone HCl (Hydromorphone Inj 2 Mg/Ml Vial) 1 mg IVP X1 ONE Stop: 05/09/25 14:28 Last Admin: 05/09/25 14:47 Dose: 1 mg Hydromorphone HCl (Hydromorphone Inj 2 Mg/Ml Vial) 1 mg IVP X1 ONE Stop: 06/10/25 02:16 Last Admin: 06/10/25 02:36 Dose: 1 mg Hydromorphone HCl (Hydromorphone Inj 2 Mg/Ml Vial) 0.5 mg IVP X1 ONE Stop: 06/14/25 19:56 Last Admin: 06/14/25 20:06 Dose: 0.5 mg Sodium Chloride (Ns) 1,908 mls @ 1,908 mls/hr 30 ml/kg infuse over 60 min (1908 ml) IV .Q1H ONE; Protocol Stop: 05/08/25 01:55 Last Infusion: 05/08/25 04:00 Dose: Infused Ceftriaxone Sodium/Dextrose (Rocephin/D5w 1gm Iv Premix) 1 gm in 50 mls @ 100 mls/hr IV X1 ONE Stop: 05/08/25 01:40 Last Infusion: 05/08/25 02:29 Dose: Infused Lactated Ringer's (Lactated Ringers) 1,000 mls @ 999 mls/hr IV .Q1H1M ONE Stop: 05/08/25 05:21 Last Infusion: 05/08/25 06:22 Dose: Infused Piperacillin/Tazobactam/Dextrose (Zosyn) 3.375 gm in 50 mls @ 100 mls/hr IV X1 ONE; Protocol Stop: 05/08/25 05:06 Last Infusion: 05/08/25 05:37 Dose: Infused Ceftriaxone Sodium 2 gm/ (Sodium Chloride) 50 mls @ 100 mls/hr IV Q12HR [facility]YA Stop: 05/15/25 11:19 Last Admin: 05/11/25 08:36 Dose: 100 mls/hr Acyclovir Sodium 640 mg/ (Sodium Chloride) 112.8 mls @ 98.947 mls/hr IV Q8HR KYA Stop: 05/15/25 15:59 Last Admin: 05/10/25 06:47 Dose: Not Given Ampicillin Sodium 2,000 mg/ (Sodium Chloride) 100 mls @ 100 mls/hr IV Q4HR KYA Stop: 05/15/25 11:21 Last Admin: 05/09/25 13:37 Dose: 100 mls/hr Lactated Ringer's (Lactated Ringers) 1,000 mls @ 100 mls/hr IV .Q10H [facility] Stop: 06/07/25 11:23 Last Infusion: 05/10/25 01:03 Dose: Infused Lactated Ringer's (Lactated Ringers) 1,000 mls @ 999 mls/hr IV .Q1H1M ONE Stop: 05/08/25 12:23 Last Admin: 05/08/25 15:06 Dose: 999 mls/hr Acetaminophen (Ofirmev Inj) 1,000 mg in 100 mls @ 250 mls/hr IV Q6HR PRN PRN Reason: Fever > 100.4 Stop: 05/09/25 00:23 Last Admin: 05/08/25 15:16 Dose: 250 mls/hr Vancomycin/Sodium Chloride (Vancomycin/Ns 1 Gm Ivpb) 200 mls @ 120 mls/hr IV X1 ONE; Protocol Stop: 05/08/25 19:39 Last Admin: 05/08/25 17:36 Dose: 120 mls/hr Valproic Acid 187.5 mg/ Sodium (Chloride) 51.875 mls @ 51.875 mls/hr IV Q6HR KYA; Protocol Stop: 06/07/25 17:59 Last Admin: 05/09/25 12:31 Dose: 51.875 mls/hr Lactated Ringer's (Lactated Ringers) 1,000 mls @ 999 mls/hr IV .Q1H1M ONE Stop: 05/08/25 17:20 Last Admin: 05/08/25 17:33 Dose: 999 mls/hr Acetaminophen (Ofirmev Inj) 1,000 mg in 100 mls @ 250 mls/hr IV Q6HR PRN PRN Reason: Temp > 100 Stop: 05/10/25 00:23 Last Admin: 05/09/25 11:16 Dose: 250 mls/hr Magnesium Sulfate (Magnesium Sulfate Ivpb) 2 gm in 50 mls @ 25 mls/hr IV X1 ONE Stop: 05/09/25 09:48 Last Admin: 05/09/25 09:12 Dose: 25 mls/hr Vancomycin/Sodium Chloride (Vancomycin/Ns 1 Gm Ivpb) 200 mls @ 120 mls/hr IV Q8HR KYA; Protocol Stop: 05/16/25 08:14 Last Admin: 05/10/25 05:30 Dose: Not Given Propofol (Diprivan Ivpb) 1,000 mg in 100 mls @ 2.048 mls/hr IV .Q24H PRN; Protocol PRN Reason: PER PROTOCOL Stop: 06/08/25 15:41 Last Titration: 05/12/25 09:03 Dose: 0 mcg/kg/min, 0 mls/hr Fentanyl Citrate (Sublimaze Inj 2,500 Mcg/250 Ml Bag) 2,500 mcg in 250 mls @ 2.5 mls/hr IV .Q24H PRN; Protocol PRN Reason: PER PROTOCOL Stop: 05/14/25 16:01 Last Titration: 05/12/25 08:35 Dose: 0 mcg/hr, 0 mls/hr Valproic Acid 187.5 mg/ Sodium (Chloride) 51.875 mls @ 51.875 mls/hr IV Q6HR KYA; Protocol Stop: 06/07/25 17:59 Last Infusion: 05/27/25 13:47 Dose: Infused Midazolam HCl (Versed Pf Inj In Ns Premix) 100 mg in 100 mls @ 1 mls/hr IV .Q24H PRN; Protocol PRN Reason: PER PROTOCOL Stop: 05/14/25 18:42 Magnesium Sulfate (Magnesium Sulfate Ivpb) 4 gm in 50 mls @ 12.5 mls/hr IV X1 ONE Stop: 05/09/25 23:14 Last Infusion: 05/10/25 00:00 Dose: Infused Lactated Ringer's (Lactated Ringers) 500 mls @ 999 mls/hr IV .Q31M ONE Stop: 05/09/25 23:51 Last Admin: 05/10/25 00:06 Dose: Not Given Lactated Ringer's (Lactated Ringers) 1,000 mls @ 999 mls/hr IV .Q1H1M ONE Stop: 05/10/25 01:02 Last Infusion: 05/10/25 01:08 Dose: Infused Lactated Ringer's (Lactated Ringers) 1,000 mls @ 100 mls/hr IV .Q10H KYA Stop: 06/09/25 00:50 Last Admin: 05/10/25 01:03 Dose: 100 mls/hr Acetaminophen (Ofirmev Inj) 1,000 mg in 100 mls @ 250 mls/hr IV Q6HR PRN PRN Reason: Temp > 99.9 Stop: 05/10/25 18:23 Last Admin: 05/10/25 01:35 Dose: 250 mls/hr Lactated Ringer's (Lactated Ringers) 1,000 mls @ 150 mls/hr IV .Q6H40M KYA Stop: 06/09/25 02:23 Last Admin: 05/10/25 08:30 Dose: 150 mls/hr Lactated Ringer's (Lactated Ringers) 500 mls @ 999 mls/hr IV .Q31M ONE Stop: 05/10/25 02:55 Last Admin: 05/10/25 03:42 Dose: 999 mls/hr Potassium Chloride (Kcl Ivpb) 10 meq in 100 mls @ 100 mls/hr IV Q1H [facility] Stop: 05/10/25 10:17 Last Admin: 05/10/25 10:50 Dose: 100 mls/hr Acyclovir Sodium 640 mg/ (Sodium Chloride) 112.8 mls @ 98.947 mls/hr IV Q8HR [facility] Stop: 05/15/25 06:44 Last Admin: 05/10/25 21:46 Dose: 98.947 mls/hr Vancomycin HCl/Dextrose (Vancomycin/D5w 1,250 Mg Ivpb) 250 mls @ 120 mls/hr IV Q12H KYA; Protocol Stop: 05/17/25 09:59 Last Admin: 05/11/25 09:08 Dose: 120 mls/hr Acetaminophen (Ofirmev Inj) 1,000 mg in 100 mls @ 250 mls/hr IV Q6HR PRN PRN Reason: temp >99.9 Stop: 05/13/25 19:34 Last Admin: 05/12/25 20:52 Dose: 250 mls/hr Doxycycline Hyclate 100 mg/ (Sodium Chloride) 100 mls @ 100 mls/hr IV BID KYA Stop: 05/18/25 11:44 Last Admin: 05/11/25 14:25 Dose: Not Given Levofloxacin/Dextrose (Levaquin Ivpb) 750 mg in 150 mls @ 100 mls/hr IV QDAY [facility] Stop: 05/18/25 11:59 Last Infusion: 05/12/25 09:41 Dose: Infused Midazolam HCl (Versed Pf Inj In Ns Premix) 100 mg in 100 mls @ 1 mls/hr IV .Q24H PRN; Protocol PRN Reason: PER PROTOCOL Stop: 05/16/25 17:24 Last Titration: 05/15/25 17:00 Dose: 0 mg/hr, 0 mls/hr Magnesium Sulfate (Magnesium Sulfate Ivpb) 2 gm in 50 mls @ 25 mls/hr IV X1 ONE Stop: 05/12/25 08:45 Last Infusion: 05/12/25 10:11 Dose: Infused Dexmedetomidine/Sodium Chloride (Precedex Ivpb) 400 mcg in 100 mls @ 3.505 mls/hr IV .Q24H PRN; Protocol PRN Reason: Per PROTOCOL Stop: 06/11/25 08:40 Last Titration: 05/13/25 04:28 Dose: 0 mcg/kg/hr, 0 mls/hr Dexamethasone Sodium Phosphate (4 mg/ Sodium Chloride) 100.4 mls @ 100.4 mls/hr IV X1 ONE Stop: 05/12/25 09:44 Last Admin: 05/12/25 10:16 Dose: Not Given Meropenem 1,000 mg/ Sodium (Chloride) 50 mls @ 100 mls/hr IV Q8HR [facility] Stop: 05/19/25 13:59 Last Infusion: 05/18/25 19:00 Dose: Infused Levofloxacin/Dextrose (Levaquin Ivpb) 750 mg in 150 mls @ 100 mls/hr IV QDAY [facility]YA Stop: 05/18/25 08:59 Last Infusion: 05/13/25 09:52 Dose: Infused Lactated Ringer's (Lactated Ringers) 500 mls @ 999 mls/hr IV .Q31M ONE Stop: 05/12/25 19:14 Last Infusion: 05/13/25 06:45 Dose: Infused Propofol (Diprivan Ivpb) 1,000 mg in 100 mls @ 2.103 mls/hr IV .Q24H PRN; Protocol PRN Reason: PER PROTOCOL Stop: 06/12/25 04:15 Last Titration: 05/28/25 10:58 Dose: 0 mcg/kg/min, 0 mls/hr Fentanyl Citrate (Sublimaze Inj 2,500 Mcg/250 Ml Bag) 2,500 mcg in 250 mls @ 2.5 mls/hr IV .Q24H PRN; Protocol PRN Reason: PER PROTOCOL Stop: 05/18/25 04:16 Last Titration: 05/18/25 07:00 Dose: 300 mcg/hr, 30 mls/hr Magnesium Sulfate (Magnesium Sulfate Ivpb) 2 gm in 50 mls @ 25 mls/hr IV X1 ONE Stop: 05/14/25 11:58 Last Admin: 05/14/25 11:45 Dose: 25 mls/hr Acetaminophen (Ofirmev Inj) 1,000 mg in 100 mls @ 250 mls/hr IV Q6HR [facility] Stop: 05/15/25 12:23 Last Admin: 05/15/25 00:08 Dose: Not Given Acetaminophen (Ofirmev Inj) 1,000 mg in 100 mls @ 250 mls/hr IV Q6HR PRN PRN Reason: TEMP >99.9 Stop: 05/15/25 18:23 Acetaminophen (Ofirmev Inj) 1,000 mg in 100 mls @ 250 mls/hr IV Q6HR PRN PRN Reason: TEMP >101.0 Stop: 05/15/25 18:23 Acetaminophen (Ofirmev Inj) 1,000 mg in 100 mls @ 250 mls/hr IV X1 ONE Stop: 05/15/25 22:47 Last Admin: 05/15/25 22:54 Dose: 250 mls/hr Doxycycline Hyclate 100 mg/ (Sodium Chloride) 100 mls @ 100 mls/hr IV BID KYA Stop: 05/18/25 23:55 Last Infusion: 05/18/25 10:25 Dose: Infused Magnesium Sulfate (Magnesium Sulfate Ivpb) 2 gm in 50 mls @ 25 mls/hr IV X1 ONE Stop: 05/16/25 08:02 Last Admin: 05/16/25 07:38 Dose: Not Given Acetaminophen (Ofirmev Inj) 1,000 mg in 100 mls @ 250 mls/hr IV X1 ONE Stop: 05/16/25 06:29 Last Admin: 05/16/25 07:38 Dose: Not Given Magnesium Sulfate (Magnesium Sulfate Ivpb) 2 gm in 50 mls @ 200 mls/hr IV X1 ONE Stop: 05/16/25 06:17 Last Infusion: 05/16/25 06:37 Dose: Infused Heparin Sodium/Dextrose (Heparin In D5w Ivpb) 25,000 unit in 250 mls @ 14.346 mls/hr IV .[id number] [facility]; Protocol Stop: 05/30/25 18:59 Last Titration: 05/18/25 09:00 Dose: 0 units/kg/hr, 0 mls/hr Magnesium Sulfate (Magnesium Sulfate Ivpb) 4 gm in 50 mls @ 12.5 mls/hr IV X1 ONE Stop: 05/17/25 11:03 Last Admin: 05/17/25 10:43 Dose: 12.5 mls/hr Lactated Ringer's (Lactated Ringers) 1,000 mls @ 999 mls/hr IV .Q1H1M ONE Stop: 05/17/25 11:21 Last Admin: 05/17/25 10:42 Dose: 999 mls/hr Magnesium Sulfate (Magnesium Sulfate Ivpb) 4 gm in 50 mls @ 12.5 mls/hr IV X1 ONE Stop: 05/18/25 08:58 Last Infusion: 05/18/25 19:00 Dose: Infused Lactated Ringer's (Lactated Ringers) 500 mls @ 999 mls/hr IV .Q31M ONE Stop: 05/18/25 05:30 Last Admin: 05/18/25 07:36 Dose: Not Given Fentanyl Citrate (Sublimaze Inj 2,500 Mcg/250 Ml Bag) 2,500 mcg in 250 mls @ 2.5 mls/hr IV .Q24H PRN; Protocol PRN Reason: PER PROTOCOL Stop: 05/23/25 07:24 Last Titration: 05/23/25 15:00 Dose: 175 mcg/hr, 17.5 mls/hr Lactated Ringer's (Lactated Ringers) 1,000 mls @ 100 mls/hr IV .Q10H [facility] Stop: 06/17/25 10:06 Last Admin: 05/19/25 06:46 Dose: Not Given Midazolam HCl (Versed Pf Inj In Ns Premix) 100 mg in 100 mls @ 4 mls/hr IV .Q24H PRN; Protocol PRN Reason: PER PROTOCOL Stop: 05/23/25 10:32 Last Titration: 05/19/25 16:00 Dose: 0 mg/hr, 0 mls/hr Magnesium Sulfate (Magnesium Sulfate Ivpb) 4 gm in 50 mls @ 12.5 mls/hr IV X1 ONE Stop: 05/19/25 11:04 Last Admin: 05/19/25 09:27 Dose: 12.5 mls/hr Meropenem 1,000 mg/ Sodium (Chloride) 50 mls @ 100 mls/hr IV Q8HR [facility] Stop: 05/22/25 13:59 Last Infusion: 05/22/25 06:04 Dose: Infused Magnesium Sulfate (Magnesium Sulfate Ivpb) 4 gm in 50 mls @ 12.5 mls/hr IV X1 ONE Stop: 05/20/25 15:48 Last Admin: 05/20/25 12:35 Dose: 12.5 mls/hr Acetaminophen (Ofirmev Inj) 1,000 mg in 100 mls @ 250 mls/hr IV X1 ONE Stop: 05/20/25 21:09 Last Infusion: 05/20/25 21:46 Dose: Infused Acetaminophen (Ofirmev Inj) 1,000 mg in 100 mls @ 250 mls/hr IV X1 ONE Stop: 05/21/25 05:11 Last Infusion: 05/21/25 06:05 Dose: Infused Magnesium Sulfate (Magnesium Sulfate Ivpb) 2 gm in 50 mls @ 25 mls/hr IV X1 ONE Stop: 05/21/25 15:31 Last Admin: 05/21/25 15:22 Dose: 25 mls/hr Dextrose/Lactated Ringer's (D5-Lr) 1,000 mls @ 70 mls/hr IV .[id number] [facility] Stop: 06/21/25 09:14 Magnesium Sulfate (Magnesium Sulfate Ivpb) 4 gm in 50 mls @ 12.5 mls/hr IV X1 ONE Stop: 05/22/25 20:25 Last Infusion: 05/22/25 20:47 Dose: Infused Fentanyl Citrate (Sublimaze Inj 2,500 Mcg/250 Ml Bag) 2,500 mcg in 250 mls @ 2.5 mls/hr IV .Q24H PRN; Protocol PRN Reason: PER PROTOCOL Stop: 05/28/25 11:34 Fentanyl Citrate (Sublimaze Inj 2,500 Mcg/250 Ml Bag) 2,500 mcg in 250 mls @ 2.5 mls/hr IV .Q24H PRN; Protocol PRN Reason: PER PROTOCOL Stop: 05/28/25 08:44 Last Titration: 05/28/25 10:45 Dose: 0 mcg/hr, 0 mls/hr Magnesium Sulfate (Magnesium Sulfate Ivpb) 4 gm in 50 mls @ 12.5 mls/hr IV X1 ONE Stop: 05/23/25 20:37 Last Admin: 05/23/25 17:25 Dose: 12.5 mls/hr Meropenem 1,000 mg/ Sodium (Chloride) 50 mls @ 100 mls/hr IV Q8HR [facility] Stop: 05/31/25 13:59 Last Infusion: 05/25/25 14:33 Dose: Infused Fluconazole (Diflucan/Ns Ivpb) 400 mg in 200 mls @ 100 mls/hr IV QDAY [facility] Stop: 06/01/25 11:10 Last Admin: 05/25/25 13:50 Dose: Not Given Magnesium Sulfate (Magnesium Sulfate Ivpb) 4 gm in 50 mls @ 12.5 mls/hr IV X1 ONE Stop: 05/27/25 11:30 Last Admin: 05/27/25 08:17 Dose: 12.5 mls/hr Fentanyl Citrate (Sublimaze Inj 2,500 Mcg/250 Ml Bag) 2,500 mcg in 250 mls @ 2.5 mls/hr IV .Q24H PRN; Protocol PRN Reason: PER PROTOCOL Stop: 06/02/25 08:52 Micafungin Sodium 100 mg/ (Sodium Chloride) 100 mls @ 100 mls/hr IV QDAY [facility]; Protocol Stop: 06/12/25 10:31 Last Admin: 05/28/25 11:07 Dose: Not Given Midazolam HCl (Versed Pf Inj In Ns Premix) 100 mg in 100 mls @ 1 mls/hr IV .Q24H PRN; Protocol PRN Reason: PER PROTOCOL Stop: 06/02/25 10:43 Last Titration: 05/30/25 07:21 Dose: 0 mg/hr, 0 mls/hr Micafungin Sodium 100 mg/ (Sodium Chloride) 100 mls @ 100 mls/hr IV QDAY [facility] Stop: 06/12/25 12:03 Last Admin: 05/30/25 09:42 Dose: 100 mls/hr Magnesium Sulfate (Magnesium Sulfate Ivpb) 2 gm in 50 mls @ 25 mls/hr IV X1 ONE Stop: 05/29/25 13:21 Last Admin: 05/29/25 11:51 Dose: 25 mls/hr Magnesium Sulfate (Magnesium Sulfate Ivpb) 2 gm in 50 mls @ 25 mls/hr IV X1 ONE Stop: 05/30/25 08:46 Last Admin: 05/30/25 07:46 Dose: 25 mls/hr Magnesium Sulfate (Magnesium Sulfate Ivpb) 2 gm in 50 mls @ 25 mls/hr IV X1 ONE Stop: 05/31/25 08:30 Last Admin: 05/31/25 09:23 Dose: 25 mls/hr Sodium Chloride (Ns) 500 mls @ 999 mls/hr IV .Q31M ONE Stop: 05/31/25 14:16 Last Admin: 05/31/25 14:14 Dose: 999 mls/hr Magnesium Sulfate (Magnesium Sulfate Ivpb) 4 gm in 50 mls @ 12.5 mls/hr IV X1 ONE Stop: 06/01/25 07:48 Last Admin: 06/01/25 03:56 Dose: 12.5 mls/hr Lactated Ringer's (Lactated Ringers) 500 mls @ 999 mls/hr IV .Q31M ONE Stop: 06/01/25 04:26 Last Admin: 06/01/25 04:04 Dose: 999 mls/hr Lactated Ringer's (Lactated Ringers) 1,000 mls @ 999 mls/hr IV .Q1H1M ONE Stop: 06/01/25 10:58 Last Admin: 06/01/25 10:59 Dose: 999 mls/hr Micafungin Sodium 100 mg/ (Sodium Chloride) 100 mls @ 100 mls/hr IV QDAY [facility] Stop: 06/16/25 13:29 Last Admin: 06/03/25 08:39 Dose: 100 mls/hr Acetaminophen (Ofirmev Inj) 1,000 mg in 100 mls @ 250 mls/hr IV X1 ONE Stop: 06/02/25 15:09 Last Infusion: 06/02/25 19:07 Dose: Infused Magnesium Sulfate (Magnesium Sulfate Ivpb) 2 gm in 50 mls @ 25 mls/hr IV X1 ONE Stop: 06/04/25 09:16 Last Admin: 06/04/25 07:43 Dose: 25 mls/hr Acetaminophen (Ofirmev Inj) 1,000 mg in 100 mls @ 250 mls/hr IV X1 ONE Stop: 06/04/25 17:15 Last Admin: 06/04/25 17:17 Dose: 250 mls/hr Acetaminophen (Ofirmev Inj) 1,000 mg in 100 mls @ 250 mls/hr IV Q6HR KYA Stop: 06/05/25 18:23 Last Admin: 06/05/25 05:05 Dose: 250 mls/hr Sodium Chloride (Ns) 250 mls @ 999 mls/hr IV .Q16M ONE Stop: 06/05/25 02:25 Last Admin: 06/05/25 02:20 Dose: 999 mls/hr Lactated Ringer's (Lactated Ringers) 500 mls @ 999 mls/hr IV .Q31M ONE Stop: 06/05/25 10:26 Last Admin: 06/05/25 10:34 Dose: 999 mls/hr Piperacillin Sod/Tazobactam (Sod 4.5 gm/ Sodium Chloride) 100 mls @ 200 mls/hr IV Q8HR KYA; Protocol Stop: 06/18/25 13:59 Last Admin: 06/16/25 13:18 Dose: 200 mls/hr Lactated Ringer's (Lactated Ringers) 500 mls @ 999 mls/hr IV .Q31M ONE Stop: 06/05/25 14:07 Last Admin: 06/05/25 13:43 Dose: 999 mls/hr Acetaminophen (Ofirmev Inj) 1,000 mg in 100 mls @ 250 mls/hr IV X1 ONE Stop: 06/05/25 16:05 Last Admin: 06/05/25 16:00 Dose: 250 mls/hr Fluconazole (Diflucan/Ns Ivpb) 400 mg in 200 mls @ 100 mls/hr IV QDAY KYA Stop: 06/12/25 17:01 Last Admin: 06/06/25 09:44 Dose: 100 mls/hr Midazolam HCl (Versed Pf Inj In Ns Premix) 100 mg in 100 mls @ 1 mls/hr IV .Q24H PRN; Protocol PRN Reason: PER PROTOCOL Stop: 06/10/25 17:42 Last Titration: 06/07/25 08:00 Dose: Infused Magnesium Sulfate (Magnesium Sulfate Ivpb) 4 gm in 50 mls @ 12.5 mls/hr IV X1 ONE Stop: 06/06/25 09:48 Last Admin: 06/06/25 06:24 Dose: 12.5 mls/hr Cisatracurium Besylate 200 mg/ (Sodium Chloride) 520 mls @ 10.749 mls/hr IV .Q24H PRN; Protocol PRN Reason: Per Protocol Stop: 07/06/25 16:40 Cisatracurium Besylate 200 mg/ (Sodium Chloride) 520 mls @ 10.749 mls/hr IV .Q24H PRN; Protocol PRN Reason: Per Protocol Stop: 07/06/25 16:40 Last Titration: 06/07/25 13:30 Dose: Infused Midazolam HCl (Versed Pf Inj In Ns Premix) 100 mg in 100 mls @ 1 mls/hr IV .Q24H PRN; Protocol PRN Reason: PER PROTOCOL Stop: 06/10/25 17:42 Midazolam HCl (Versed Pf Inj In Ns Premix) 100 mg in 100 mls @ 1 mls/hr IV .Q24H PRN; Protocol PRN Reason: PER PROTOCOL Stop: 06/10/25 17:42 Last Titration: 06/08/25 03:00 Dose: 7 mg/hr, 7 mls/hr Magnesium Sulfate (Magnesium Sulfate Ivpb) 4 gm in 50 mls @ 12.5 mls/hr IV X1 ONE Stop: 06/07/25 10:22 Last Admin: 06/07/25 08:43 Dose: 12.5 mls/hr Magnesium Sulfate (Magnesium Sulfate Ivpb) 2 gm in 50 mls @ 25 mls/hr IV X1 ONE Stop: 06/08/25 00:33 Last Infusion: 06/08/25 00:59 Dose: Infused Midazolam HCl (Versed Pf Inj In Ns Premix) 100 mg in 100 mls @ 1 mls/hr IV .Q24H PRN; Protocol PRN Reason: PER PROTOCOL Stop: 06/12/25 18:59 Last Titration: 06/08/25 16:00 Dose: 6 mg/hr, 6 mls/hr Midazolam HCl (Versed Pf Inj In Ns Premix) 100 mg in 100 mls @ 1 mls/hr IV .Q24H PRN; Protocol PRN Reason: PER PROTOCOL Stop: 06/12/25 18:59 Last Titration: 06/09/25 09:30 Dose: 0 mg/hr, 0 mls/hr Midazolam HCl (Versed Pf Inj In Ns Premix) 100 mg in 100 mls @ 1 mls/hr IV .Q24H PRN; Protocol PRN Reason: PER PROTOCOL Stop: 06/12/25 18:59 Magnesium Sulfate (Magnesium Sulfate Ivpb) 4 gm in 50 mls @ 12.5 mls/hr IV X1 ONE Stop: 06/09/25 10:49 Last Admin: 06/09/25 07:13 Dose: 12.5 mls/hr Acetaminophen (Ofirmev Inj) 1,000 mg in 100 mls @ 250 mls/hr IV Q6HR PRN; Protocol PRN Reason: fever >103 Stop: 06/10/25 06:23 Magnesium Sulfate (Magnesium Sulfate Ivpb) 2 gm in 50 mls @ 25 mls/hr IV X1 ONE Stop: 06/10/25 01:15 Last Admin: 06/09/25 23:39 Dose: 25 mls/hr Magnesium Sulfate (Magnesium Sulfate Ivpb) 4 gm in 50 mls @ 12.5 mls/hr IV X1 ONE Stop: 06/13/25 10:28 Last Admin: 06/13/25 08:09 Dose: 12.5 mls/hr Ibuprofen (Ibuprofen Susp 100 Mg/5 Ml Udc) 100 mg PO X1 ONE Stop: 05/16/25 06:13 Last Admin: 05/16/25 06:22 Dose: 100 mg Ibuprofen (Ibuprofen Susp 100 Mg/5 Ml Udc) 100 mg GT NOW ONE Stop: 05/18/25 01:21 Last Admin: 05/18/25 01:33 Dose: 100 mg Ibuprofen (Ibuprofen Susp 100 Mg/5 Ml Udc) 100 mg GT X1 ONE Stop: 05/22/25 05:56 Last Admin: 05/22/25 06:08 Dose: 100 mg Ibuprofen (Ibuprofen Susp 100 Mg/5 Ml Udc) 100 mg GT X1 ONE Stop: 05/24/25 22:09 Last Admin: 05/24/25 22:26 Dose: 100 mg Ibuprofen (Ibuprofen Susp 100 Mg/5 Ml Udc) 100 mg GT X1 ONE Stop: 05/26/25 21:34 Last Admin: 05/26/25 21:43 Dose: 100 mg Ibuprofen (Ibuprofen Susp 100 Mg/5 Ml Udc) 100 mg GT X1 ONE Stop: 05/27/25 03:16 Last Admin: 05/27/25 03:25 Dose: 100 mg Ibuprofen (Ibuprofen Susp 100 Mg/5 Ml Udc) 100 mg PO X1 ONE Stop: 05/27/25 11:00 Last Admin: 05/27/25 11:22 Dose: 100 mg Ibuprofen (Ibuprofen Susp 100 Mg/5 Ml Udc) 100 mg PO Q6HR PRN PRN Reason: Fever > 100.3 Stop: 07/03/25 09:48 Last Admin: 06/05/25 20:54 Dose: 100 mg Ibuprofen (Ibuprofen Susp 100 Mg/5 Ml Udc) 200 mg PO Q6HR PRN PRN Reason: FEVER > 101 Stop: 07/03/25 09:48 Last Admin: 06/06/25 03:36 Dose: 200 mg Ibuprofen (Ibuprofen Susp 100 Mg/5 Ml Udc) 400 mg PO X1 ONE Stop: 06/14/25 18:23 Last Admin: 06/14/25 18:27 Dose: 400 mg Ibuprofen (Ibuprofen Susp 100 Mg/5 Ml Udc) 100 mg GT X1 ONE Stop: 06/15/25 15:48 Last Admin: 06/15/25 15:54 Dose: 100 mg Ipratropium [place] (Ipratropium Rt 0.5 Mg/ 2.5 Ml Nebu) 0.5 mg INH Q6HR KYA Stop: 06/11/25 11:59 Last Admin: 05/20/25 18:32 Dose: Not Given Ipratropium [place] (Ipratropium Rt 0.5 Mg/ 2.5 Ml Nebu) 0.5 mg INH Q6HR PRN PRN Reason: SHORTNESS OF BREATH Stop: 06/11/25 11:59 Ketamine HCl (Ketamine 50 Mg/Ml Vial 10 Ml) 100 mg IVP X1 ONE Stop: 05/09/25 15:40 Last Admin: 05/09/25 16:55 Dose: Not Given Ketorolac Tromethamine (Ketorolac Inj 30 Mg/Ml Vial) 30 mg IVP X1 ONE Stop: 06/09/25 06:52 Last Admin: 06/09/25 07:13 Dose: 30 mg Lansoprazole (Lansoprazole 30 Mg Tab.Rap.Dr) 30 mg GT QDAY KYA Stop: 06/27/25 08:59 Last Admin: 06/16/25 09:13 Dose: 30 mg Levetiracetam (Levetiracetam Liqd 500 Mg/5 Ml Udc) 800 mg GT BID KYA Stop: 06/07/25 10:29 Last Admin: 05/08/25 13:47 Dose: 800 mg Levetiracetam (Levetiracetam Liqd 500 Mg/5 Ml Udc) 800 mg GT X1 ONE Stop: 05/08/25 15:40 Last Admin: 05/08/25 17:48 Dose: 800 mg Levetiracetam (Levetiracetam Inj 100 Mg/Ml Vial 5ml) 800 mg IV BID KYA Stop: 06/07/25 20:59 Last Admin: 05/20/25 09:20 Dose: 800 mg Levetiracetam (Levetiracetam Inj 100 Mg/Ml Vial 5ml) 1,000 mg IV BID KYA Stop: 06/07/25 17:29 Levetiracetam (Levetiracetam Inj 100 Mg/Ml Vial 5ml) 1,000 mg IV BID KYA Stop: 06/19/25 20:59 Last Admin: 05/27/25 08:17 Dose: 1,000 mg Levetiracetam (Levetiracetam Liqd 500 Mg/5 Ml Udc) 1,000 mg GT BID KYA Stop: 06/26/25 20:59 Last Admin: 05/29/25 21:49 Dose: 1,000 mg Levetiracetam (Levetiracetam Liqd 500 Mg/5 Ml Udc) 750 mg GT BID KYA Stop: 06/29/25 08:59 Last Admin: 06/16/25 09:14 Dose: 750 mg Lidocaine HCl (Lidocaine Jelly 2% (Urojet) 10 Ml Tube) 0 ml TOP X1 ONE Stop: 05/10/25 15:11 Last Admin: 05/10/25 15:24 Dose: 10 ml Lidocaine HCl (Lidocaine Hcl 1% 20 Ml Vial) 10 ml INFL X1 ONE Stop: 05/14/25 14:11 Last Admin: 05/14/25 14:37 Dose: Not Given Lidocaine HCl (Lidocaine Hcl 1% 20 Ml Vial) 12 ml INFL X1 ONE Stop: 05/14/25 14:37 Last Admin: 05/14/25 14:27 Dose: 12 ml Lidocaine HCl (Lidocaine Hcl 1% 20 Ml Vial) 20 ml IM X1 ONE Stop: 05/17/25 11:42 Last Admin: 05/17/25 11:25 Dose: 20 ml Lidocaine HCl (Lidocaine Hcl 1% 20 Ml Vial) 8 ml INFL X1 ONE Stop: 06/05/25 18:01 Last Admin: 06/05/25 18:16 Dose: 8 ml Lidocaine HCl (Lidocaine Inj 2% 20 Ml Vial) 20 ml IM X1 ONE Stop: 06/08/25 12:44 Last Admin: 06/08/25 14:33 Dose: Not Given Lidocaine HCl (Lidocaine Hcl 1% 20 Ml Vial) 10 ml IM X1 ONE Stop: 06/08/25 12:56 Last Admin: 06/08/25 12:55 Dose: 10 ml Lidocaine HCl (Lidocaine Jelly 2% (Urojet) 10 Ml Tube) 0 ml TOP X1 ONE Stop: 06/10/25 21:30 Last Admin: 06/10/25 22:05 Dose: 10 ml Lidocaine/Epinephrine (Lidocaine 1% W/Epi 1:100k 20 Ml Vial) 20 ml INFL X1 ONE Stop: 06/06/25 21:01 Last Admin: 06/06/25 21:20 Dose: 20 ml Lorazepam (Lorazepam 2 Mg/Ml Vial) 2 mg IVP X1 ONE Stop: 05/08/25 14:45 Last Admin: 05/08/25 17:37 Dose: Not Given Magnesium Oxide (Magnesium Oxide 400 Mg Tablet) 400 mg PO TID [facility] Stop: 06/05/25 22:01 Magnesium Oxide (Magnesium Oxide 400 Mg Tablet) 400 mg GT TID [facility] Stop: 06/05/25 22:01 Last Admin: 06/05/25 22:14 Dose: 400 mg Midazolam HCl (Midazolam Inj 1 Mg/Ml Vial 2 Ml) 2 mg IVP X1 ONE Stop: 05/08/25 01:35 Last Admin: 05/08/25 01:46 Dose: 2 mg Midazolam HCl (Midazolam Inj 1 Mg/Ml Vial 2 Ml) 2 mg IVP X1 PRN PRN Reason: Seizure > 3 mins Midazolam HCl (Midazolam Inj 1 Mg/Ml Vial 2 Ml) 2 mg IM X1 ONE Stop: 05/08/25 11:53 Last Admin: 05/08/25 12:38 Dose: 2 mg Midazolam HCl (Midazolam Inj 1 Mg/Ml Vial 2 Ml) 2 mg IVP X1 ONE Stop: 05/08/25 14:55 Last Admin: 05/08/25 15:03 Dose: 2 mg Midazolam HCl (Midazolam Inj 1 Mg/Ml Vial 2 Ml) 2 mg IVP X1 ONE Stop: 05/08/25 15:31 Last Admin: 05/08/25 16:25 Dose: 2 mg Midazolam HCl (Midazolam Inj 1 Mg/Ml Vial 2 Ml) 5 mg IVP X1 ONE Stop: 05/08/25 16:20 Last Admin: 05/08/25 17:26 Dose: Not Given Midazolam HCl (Midazolam Inj 1 Mg/Ml Vial 2 Ml) 2 mg IVP X1 ONE Stop: 05/08/25 16:01 Last Admin: 05/08/25 16:00 Dose: 2 mg Midazolam HCl (Midazolam Inj 1 Mg/Ml Vial 2 Ml) 2 mg IVP X1 PRN PRN Reason: AGITATION (SEVERE) Last Admin: 05/09/25 01:37 Dose: 2 mg Midazolam HCl (Midazolam Inj 1 Mg/Ml Vial 2 Ml) 2 mg IVP X1 ONE Stop: 05/08/25 20:10 Last Admin: 05/08/25 20:26 Dose: 2 mg Midazolam HCl (Midazolam Inj 1 Mg/Ml Vial 2 Ml) 2 mg IVP X1 ONE Stop: 05/09/25 05:31 Last Admin: 05/09/25 05:42 Dose: 2 mg Midazolam HCl (Midazolam Inj 1 Mg/Ml Vial 2 Ml) 6 mg IVP X1 ONE Stop: 05/09/25 15:28 Last Admin: 05/09/25 15:50 Dose: 6 mg Midazolam HCl (Midazolam Inj 1 Mg/Ml Vial 2 Ml) 4 mg IVP X1 ONE Stop: 05/11/25 16:14 Last Admin: 05/11/25 16:20 Dose: 4 mg Midazolam HCl (Midazolam Inj 1 Mg/Ml Vial 2 Ml) 4 mg IVP X1 ONE Stop: 05/11/25 17:26 Last Admin: 05/11/25 17:28 Dose: 4 mg Midazolam HCl (Midazolam Inj 1 Mg/Ml Vial 2 Ml) 4 mg IVP X1 ONE Stop: 05/13/25 10:17 Last Admin: 05/13/25 10:12 Dose: 4 mg Midazolam HCl (Midazolam Inj 1 Mg/Ml Vial 2 Ml) 4 mg IVP X1 ONE Stop: 05/13/25 12:12 Last Admin: 05/13/25 12:12 Dose: 4 mg Midazolam HCl (Midazolam Inj 1 Mg/Ml Vial 2 Ml) 2 mg IVP X1 ONE Stop: 05/16/25 02:02 Last Admin: 05/16/25 02:11 Dose: 2 mg Midazolam HCl (Midazolam Inj 1 Mg/Ml Vial 2 Ml) 4 mg IVP X1 ONE Stop: 05/16/25 09:59 Last Admin: 05/16/25 10:51 Dose: 4 mg Midazolam HCl (Midazolam Inj 1 Mg/Ml Vial 2 Ml) 4 mg IVP X1 ONE Stop: 05/17/25 00:52 Last Admin: 05/17/25 01:05 Dose: 4 mg Midazolam HCl (Midazolam Inj 1 Mg/Ml Vial 2 Ml) 4 mg IVP X1 ONE Stop: 05/17/25 10:41 Last Admin: 05/17/25 11:20 Dose: 4 mg Midazolam HCl (Midazolam Inj 1 Mg/Ml Vial 2 Ml) 2 mg IVP X1 ONE Stop: 05/18/25 05:38 Last Admin: 05/18/25 05:49 Dose: 2 mg Midazolam HCl (Midazolam Inj 1 Mg/Ml Vial 2 Ml) 4 mg IVP X1 ONE Stop: 05/18/25 10:11 Last Admin: 05/18/25 10:37 Dose: 4 mg Midazolam HCl (Midazolam Inj 1 Mg/Ml Vial 2 Ml) 2 mg IVP Q6HR PRN PRN Reason: seizures or agitation Stop: 05/26/25 09:47 Last Admin: 05/22/25 02:37 Dose: 2 mg Midazolam HCl (Midazolam Inj 1 Mg/Ml Vial 2 Ml) 2 mg IVP X1 ONE Stop: 05/22/25 06:50 Last Admin: 05/22/25 06:56 Dose: 2 mg Midazolam HCl (Midazolam Inj 1 Mg/Ml Vial 2 Ml) 4 mg IVP X1 ONE Stop: 05/22/25 08:44 Last Admin: 05/22/25 08:45 Dose: 4 mg Midazolam HCl (Midazolam Inj 1 Mg/Ml Vial 2 Ml) 2 mg IVP Q5MIN PRN PRN Reason: seizures or agitation Stop: 05/26/25 09:47 Midazolam HCl (Midazolam Inj 1 Mg/Ml Vial 2 Ml) 2 mg IVP Q5MIN PRN PRN Reason: seizures or agitation Stop: 05/26/25 09:47 Midazolam HCl (Midazolam Inj 1 Mg/Ml Vial 2 Ml) 4 mg IVP Q5MIN PRN PRN Reason: seizures or agitation Stop: 05/26/25 09:47 Last Admin: 05/23/25 12:06 Dose: 4 mg Midazolam HCl (Midazolam Inj 1 Mg/Ml Vial 2 Ml) 2 mg IVP X1 ONE Stop: 05/22/25 17:57 Midazolam HCl (Midazolam Inj 1 Mg/Ml Vial 2 Ml) 2 mg IVP X1 ONE Stop: 05/22/25 18:22 Last Admin: 05/22/25 17:45 Dose: 2 mg Midazolam HCl (Midazolam Inj 1 Mg/Ml Vial 2 Ml) 1 mg IVP Q3HR PRN PRN Reason: AGITATION OR ANXIETY Stop: 06/04/25 18:48 Last Admin: 06/02/25 20:05 Dose: 1 mg Midazolam HCl (Midazolam Inj 1 Mg/Ml Vial 2 Ml) 1 mg IVP X1 ONE Stop: 06/01/25 03:58 Last Admin: 06/01/25 04:09 Dose: 1 mg Midazolam HCl (Midazolam Inj 1 Mg/Ml Vial 2 Ml) 2 mg IVP X1 ONE Stop: 06/05/25 10:24 Last Admin: 06/05/25 10:34 Dose: 2 mg Midazolam HCl (Midazolam Inj 1 Mg/Ml Vial 2 Ml) 2 mg IM X1 ONE Stop: 06/05/25 13:21 Last Admin: 06/07/25 08:39 Dose: Not Given Midazolam HCl (Midazolam Inj 1 Mg/Ml Vial 2 Ml) 2 mg IVP X1 ONE Stop: 06/05/25 13:22 Last Admin: 06/05/25 13:23 Dose: 2 mg Midazolam HCl (Midazolam Inj 1 Mg/Ml Vial 2 Ml) 2 mg IVP X1 ONE Stop: 06/05/25 13:38 Last Admin: 06/05/25 13:42 Dose: 2 mg Midazolam HCl (Midazolam Inj 1 Mg/Ml Vial 2 Ml) 2 mg IVP Q3HR PRN PRN Reason: AGITATION OR ANXIETY Stop: 06/10/25 16:12 Last Admin: 06/05/25 16:27 Dose: 2 mg Midazolam HCl (Midazolam Inj 1 Mg/Ml Vial 2 Ml) 2 mg IVP X1 ONE Stop: 06/05/25 16:36 Last Admin: 06/05/25 16:48 Dose: 2 mg Midazolam HCl (Midazolam Inj 1 Mg/Ml Vial 2 Ml) 6 mg IVP X1 ONE Stop: 06/05/25 17:46 Last Admin: 06/05/25 17:54 Dose: 6 mg Midazolam HCl (Midazolam Inj 1 Mg/Ml Vial 2 Ml) 2 mg IVP Q1HR PRN PRN Reason: AGITATION Stop: 06/10/25 19:04 Last Admin: 06/06/25 14:55 Dose: 2 mg Midazolam HCl (Midazolam Inj 1 Mg/Ml Vial 2 Ml) 4 mg IVP X1 ONE Stop: 06/05/25 21:49 Last Admin: 06/05/25 22:00 Dose: 4 mg Midazolam HCl (Midazolam Inj 1 Mg/Ml Vial 2 Ml) 2 mg IVP Q1HR PRN PRN Reason: AGITATION OR ANXIETY Stop: 06/12/25 15:58 Last Admin: 06/10/25 13:47 Dose: 2 mg Midazolam HCl (Midazolam Inj 1 Mg/Ml Vial 2 Ml) 2 mg IVP X1 ONE Stop: 06/07/25 19:21 Last Admin: 06/07/25 20:05 Dose: 2 mg Midazolam HCl (Midazolam Inj 1 Mg/Ml Vial 2 Ml) 2 mg IVP X1 ONE Stop: 06/08/25 13:19 Last Admin: 06/08/25 13:20 Dose: 2 mg Midazolam HCl (Midazolam Inj 1 Mg/Ml Vial 2 Ml) 2 mg IVP X1 ONE Stop: 06/10/25 00:42 Last Admin: 06/10/25 00:59 Dose: 2 mg Midazolam HCl (Midazolam Inj 1 Mg/Ml Vial 2 Ml) 2 mg IVP X1 ONE Stop: 06/10/25 13:56 Last Admin: 06/10/25 14:31 Dose: 2 mg Midazolam HCl (Midazolam Inj 1 Mg/Ml Vial 2 Ml) 4 mg IVP Q1HR PRN PRN Reason: AGITATION OR ANXIETY Stop: 06/12/25 15:58 Last Admin: 06/11/25 16:51 Dose: 4 mg Midazolam HCl (Midazolam Inj 1 Mg/Ml Vial 2 Ml) 4 mg IVP Q2HR KYA Stop: 06/17/25 17:59 Midazolam HCl (Midazolam Inj 1 Mg/Ml Vial 2 Ml) 2.5 mg IVP X1 ONE Stop: 06/14/25 18:03 Last Admin: 06/14/25 18:23 Dose: Not Given Midazolam HCl (Midazolam Inj 1 Mg/Ml Vial 2 Ml) 4 mg IVP X1 ONE Stop: 06/14/25 19:04 Last Admin: 06/14/25 19:15 Dose: 4 mg Morphine Sulfate (Morphine Sulf Inj 4 Mg/Ml Vial) 2 mg IVP Q6HR PRN PRN Reason: PAIN SCALE 4-10(Mod-Sev Stop: 05/14/25 08:33 Last Admin: 05/09/25 09:30 Dose: 2 mg Morphine Sulfate (Morphine Sulf Inj 4 Mg/Ml Vial) 2 mg IVP X1 ONE Stop: 06/05/25 13:29 Last Admin: 06/05/25 13:33 Dose: 2 mg Morphine Sulfate (Morphine Sulf Inj 4 Mg/Ml Vial) 2 mg IVP X1 ONE Stop: 06/05/25 16:37 Last Admin: 06/05/25 16:47 Dose: 2 mg Morphine Sulfate (Morphine Sulf Inj 4 Mg/Ml Vial) 2 mg IVP Q3H PRN PRN Reason: Breakthrough Pain Last Admin: 06/09/25 23:39 Dose: 2 mg Morphine Sulfate (Morphine Sulf Inj 4 Mg/Ml Vial) 2 mg IVP X1 ONE Stop: 06/09/25 14:35 Morphine Sulfate (Morphine Sulf Inj 4 Mg/Ml Vial) 1 mg IVP X1 ONE Stop: 06/09/25 23:17 Last Admin: 06/10/25 00:13 Dose: 1 mg Clotrimazole 1% (Topical Solution) 4 drop LEFT EAR BID KYA Stop: 07/04/25 11:59 Last Admin: 06/04/25 12:04 Dose: 4 drop Clotrimazole 1% (Topical Solution) 4 drop BOTH EARS BID KYA Stop: 07/04/25 12:29 Last Admin: 06/04/25 15:21 Dose: 4 drop Non-Formulary Medication (Clotrimazole Ear Drops) 4 drop BOTH EARS BID KYA Stop: 07/04/25 12:29 Clotrimazole 1% (Topical Solution) 4 drop BOTH EARS BID KYA Stop: 07/04/25 14:44 Last Admin: 06/08/25 09:35 Dose: 4 drop Non-Formulary Medication (Deutetrabenazine) 6 mg PO BID KYA Stop: 07/10/25 11:29 Last Admin: 06/13/25 15:37 Dose: Not Given Ofloxacin (Ofloxacin Op [place] 0.3% 5 Ml Btl) 5 drop BOTH EARS BID KYA Stop: 05/18/25 10:14 Last Admin: 05/18/25 09:24 Dose: 5 drops Ofloxacin (Ofloxacin Op [place] 0.3% 5 Ml Btl) 5 drop BOTH EARS BID KYA Stop: 06/20/25 14:44 Ofloxacin (Ofloxacin Op [place] 0.3% 5 Ml Btl) 5 drop BOTH EARS BID KYA Stop: 05/31/25 14:44 Last Admin: 05/31/25 10:09 Dose: 5 drops Olanzapine (Olanzapine 5 Mg Tablet) 5 mg PO QDAY KYA Stop: 06/12/25 14:14 Last Admin: 05/15/25 08:56 Dose: 5 mg Olanzapine (Olanzapine 5 Mg Tablet) 5 mg PO QPM KYA Stop: 06/14/25 20:59 Last Admin: 05/15/25 20:50 Dose: 5 mg Olanzapine (Olanzapine 5 Mg Tablet) 5 mg PO BID KYA Stop: 06/15/25 08:59 Last Admin: 05/16/25 09:17 Dose: Not Given Olanzapine (Olanzapine 5 Mg Tablet) 5 mg GT TID KYA Stop: 06/15/25 13:59 Last Admin: 05/18/25 05:49 Dose: 5 mg Olanzapine (Olanzapine 5 Mg Tablet) 5 mg GT X1 ONE Stop: 05/16/25 09:18 Last Admin: 05/16/25 09:55 Dose: 5 mg Ondansetron HCl (Ondansetron Inj 2 Mg/Ml Inj 2 Ml) 4 mg IVP Q6HR PRN; Protocol PRN Reason: NAUSEA OR VOMITING Stop: 06/07/25 11:35 Oxycodone HCl (Oxycodone Hcl 5 Mg Ir Tab) 10 mg GT TID [facility] Stop: 05/22/25 13:59 Last Admin: 05/21/25 14:57 Dose: Not Given Oxycodone HCl (Oxycodone Hcl 5 Mg Ir Tab) 10 mg GT X1 ONE Stop: 05/17/25 10:35 Last Admin: 05/17/25 10:44 Dose: 10 mg Oxycodone HCl (Oxycodone Hcl 5 Mg Ir Tab) 10 mg PO TID [facility] Stop: 05/29/25 09:59 Last Admin: 05/24/25 10:22 Dose: 10 mg Oxycodone HCl (Oxycodone Hcl 5 Mg Ir Tab) 10 mg PO TID [facility] Stop: 05/29/25 09:59 Last Admin: 05/26/25 05:53 Dose: 10 mg Oxycodone HCl (Oxycodone Hcl 5 Mg Ir Tab) 15 mg PO TID [facility] Stop: 05/31/25 13:59 Last Admin: 05/28/25 05:09 Dose: 15 mg Oxycodone HCl (Oxycodone Hcl 5 Mg Ir Tab) 30 mg PO TID [facility] Stop: 06/02/25 13:59 Last Admin: 05/31/25 05:34 Dose: 30 mg Oxycodone HCl (Oxycodone Hcl 5 Mg Ir Tab) 15 mg PO TID [facility] Stop: 06/05/25 13:59 Last Admin: 06/03/25 05:18 Dose: 15 mg Oxycodone HCl (Oxycodone Hcl 5 Mg Ir Tab) 10 mg PO TID [facility] Stop: 06/08/25 13:59 Last Admin: 06/08/25 05:19 Dose: 10 mg Oxycodone HCl (Oxycodone Hcl 5 Mg Ir Tab) 5 mg GT X1 ONE Stop: 06/05/25 02:10 Last Admin: 06/05/25 02:19 Dose: 5 mg Oxycodone HCl (Oxycodone Hcl 5 Mg Ir Tab) 10 mg PO X1 ONE Stop: 06/05/25 15:57 Last Admin: 06/05/25 16:01 Dose: 10 mg Oxycodone HCl (Oxycodone Hcl 5 Mg Ir Tab) 10 mg GT TID [facility] Stop: 06/14/25 15:44 Last Admin: 06/12/25 05:48 Dose: 10 mg Oxycodone HCl (Oxycodone Hcl 5 Mg Ir Tab) 10 mg GT TID [facility] Stop: 06/14/25 15:44 Oxycodone HCl (Oxycodone Hcl 5 Mg Ir Tab) 10 mg PO X1 ONE Stop: 06/14/25 18:23 Last Admin: 06/14/25 18:27 Dose: 10 mg Oxycodone/Acetaminophen (Oxycodone/Apap 5/325 Tablet) 1 tab PO TID [facility] Stop: 05/22/25 13:59 Oxycodone/Acetaminophen (Oxycodone/Apap 5/325 Tablet) 1 tab GT TID [facility] Stop: 05/22/25 13:59 Pantoprazole Sodium (Pantoprazole Inj 40 Mg Vial) 40 mg IVP QDAY [facility] Stop: 06/11/25 11:24 Last Admin: 05/23/25 09:56 Dose: 40 mg Pantoprazole Sodium (Pantoprazole Inj 40 Mg Vial) 40 mg IVP QDAY KYA Stop: 06/23/25 08:59 Last Admin: 05/27/25 08:17 Dose: 40 mg Pantoprazole Sodium (Pantoprazole 40 Mg Tablet) 40 mg PO QDAY KYA Stop: 06/26/25 14:44 Last Admin: 05/27/25 15:36 Dose: Not Given Pharmacy Consult (Vancomycin Pharmacy To Dose 1 Each Each) 1 each IV QDAY PRN PRN Reason: CONSULT Stop: 06/07/25 11:29 Pharmacy Consult (Pharmacy To Consult Patient) 1 each XX PRN PRN PRN Reason: CONSULT Stop: 06/07/25 16:11 Phenobarbital (Phenobarbital 32.4 Mg Tablet) 259.2 mg GT Q6HR KYA Stop: 06/06/25 11:29 Last Admin: 05/28/25 11:07 Dose: Not Given Phenobarbital (Phenobarbital 32.4 Mg Tablet) 259.2 mg GT Q6HR KYA Stop: 06/11/25 07:14 Last Admin: 05/30/25 15:08 Dose: Not Given Phenobarbital (Phenobarbital 32.4 Mg Tablet) 129.6 mg GT Q8HR KYA Stop: 06/13/25 14:44 Last Admin: 05/31/25 05:35 Dose: 129.6 mg Phenobarbital (Phenobarbital 32.4 Mg Tablet) 64.8 mg GT Q8HR KYA Stop: 06/14/25 13:59 Last Admin: 06/02/25 05:05 Dose: 64.8 mg Phenobarbital (Phenobarbital 32.4 Mg Tablet) 64.8 mg GT Q12HR KYA Stop: 06/16/25 20:59 Last Admin: 06/04/25 09:02 Dose: 64.8 mg Phenobarbital (Phenobarbital 32.4 Mg Tablet) 64.8 mg GT HS KYA Stop: 06/18/25 20:59 Last Admin: 06/07/25 20:05 Dose: 64.8 mg Phenobarbital (Phenobarbital 32.4 Mg Tablet) 32.4 mg GT X1 ONE Stop: 06/05/25 13:25 Last Admin: 06/05/25 13:32 Dose: 32.4 mg Phenobarbital (Phenobarbital 32.4 Mg Tablet) 64.8 mg GT BID KYA Stop: 06/22/25 08:59 Last Admin: 06/10/25 08:11 Dose: 64.8 mg Phenobarbital (Phenobarbital 32.4 Mg Tablet) 129.6 mg GT BID KYA Stop: 06/24/25 20:59 Phenobarbital (Phenobarbital 32.4 Mg Tablet) 64.8 mg PO X1 ONE Stop: 06/10/25 08:57 Last Admin: 06/10/25 09:10 Dose: 64.8 mg Phenobarbital (Phenobarbital 32.4 Mg Tablet) 129.6 mg GT TID [facility] Stop: 06/24/25 14:44 Last Admin: 06/12/25 05:48 Dose: 129.6 mg Phenobarbital (Phenobarbital 32.4 Mg Tablet) 129.6 mg GT TID [facility] Stop: 06/24/25 14:44 Phenobarbital Sodium (Phenobarbital Inj 130 Mg/1 Ml Vial) 130 mg IVP TID [facility] Stop: 05/31/25 13:59 Last Admin: 05/17/25 22:16 Dose: 130 mg Phenobarbital Sodium (Phenobarbital Inj 130 Mg/1 Ml Vial) 130 mg IVP Q6H [facility] Stop: 06/01/25 05:44 Last Admin: 05/18/25 05:49 Dose: 130 mg Phenobarbital Sodium (Phenobarbital Inj 130 Mg/1 Ml Vial) 260 mg IVP Q6H [facility] Stop: 06/01/25 05:44 Last Admin: 05/20/25 05:07 Dose: 260 mg Phenobarbital Sodium (Phenobarbital Inj 130 Mg/1 Ml Vial) 260 mg IVP Q8HR [facility] Stop: 06/03/25 13:59 Last Admin: 05/21/25 05:38 Dose: 260 mg Phenobarbital Sodium (Phenobarbital Inj 130 Mg/1 Ml Vial) 260 mg IVP Q12HR [facility] Stop: 06/04/25 08:59 Last Admin: 05/21/25 08:21 Dose: 260 mg Phenobarbital Sodium (Phenobarbital Inj 130 Mg/1 Ml Vial) 130 mg IVP Q8HR [facility] Stop: 06/04/25 13:59 Last Admin: 05/21/25 14:37 Dose: Not Given Phenobarbital Sodium (Phenobarbital Inj 130 Mg/1 Ml Vial) 130 mg IVP Q8HR [facility] Stop: 06/05/25 08:59 Last Admin: 05/22/25 08:14 Dose: 130 mg Phenobarbital Sodium (Phenobarbital Inj 130 Mg/1 Ml Vial) 130 mg IVP Q6HR [facility] Stop: 06/05/25 11:59 Last Admin: 05/23/25 05:21 Dose: 130 mg Phenobarbital Sodium (Phenobarbital Inj 130 Mg/1 Ml Vial) 260 mg IVP Q6HR [facility] Stop: 06/06/25 11:59 Polyethylene Glycol (Polyethylene Glycol 17 Gm Packet) 17 gm PO QDAY [facility] Stop: 06/15/25 09:14 Last Admin: 06/14/25 08:56 Dose: 17 gm Polyethylene Glycol (Polyethylene Glycol 17 Gm Packet) 17 gm PO QDAY PRN PRN Reason: Constipation Stop: 06/15/25 09:14 Potassium Chloride (Potassium Chloride 10% 20 Meq/15 Ml Udc) 40 meq NG X1 ONE Stop: 05/12/25 06:46 Last Admin: 05/12/25 08:11 Dose: 40 meq Potassium Chloride (Potassium Chloride 10% 20 Meq/15 Ml Udc) 40 meq GT X1 ONE Stop: 05/14/25 09:59 Last Admin: 05/14/25 11:45 Dose: 40 meq Potassium Chloride (Potassium Chloride 10% 20 Meq/15 Ml Udc) 40 meq GT X1 ONE Stop: 06/05/25 07:53 Last Admin: 06/05/25 08:59 Dose: 40 meq Potassium Chloride (Potassium Chloride 10% 20 Meq/15 Ml Udc) 40 meq GT X1 ONE Stop: 06/15/25 08:12 Last Admin: 06/15/25 08:50 Dose: 40 meq Potassium Chloride (Potassium Chloride 10% 20 Meq/15 Ml Udc) 40 meq GT X1 ONE Stop: 06/17/25 08:08 Last Admin: 06/17/25 08:28 Dose: 40 meq Propranolol HCl (Propranolol 10 Mg Tablet) 10 mg PO TID [facility] Stop: 06/24/25 13:59 Last Admin: 05/28/25 05:09 Dose: 10 mg Propranolol HCl (Propranolol 10 Mg Tablet) 10 mg PO TID [facility] Stop: 07/06/25 05:59 Propranolol HCl (Propranolol 10 Mg Tablet) 10 mg GT TID [facility] Stop: 07/06/25 05:59 Last Admin: 06/12/25 05:48 Dose: 10 mg Quetiapine Fumarate (Quetiapine Fumarate 25 Mg Tablet) 50 mg GT QDAY [facility] Stop: 07/06/25 08:59 Last Admin: 06/10/25 08:11 Dose: 50 mg Quetiapine Fumarate (Quetiapine Fumarate 100 Mg Tablet) 100 mg GT [facility] Stop: 07/06/25 20:59 Quetiapine Fumarate (Quetiapine Fumarate 100 Mg Tablet) 100 mg GT [facility] Stop: 07/05/25 22:39 Last Admin: 06/09/25 21:03 Dose: 100 mg Rocuronium [place] (Rocuronium Inj 10 Mg/Ml Vial 10 Ml) 70 mg 1 mg/kg (70 mg) IV X1 ONE Stop: 05/13/25 04:21 Last Admin: 05/13/25 04:46 Dose: 70 mg Sevelamer Carbonate (Sevelamer Carbonate 800 Mg Tablet) 800 mg GT X1 ONE Stop: 05/20/25 07:20 Last Admin: 05/20/25 10:57 Dose: Not Given Sevelamer Carbonate (Sevelamer Carbonate 0.8 Gm Packet (Non-Formulary)) 0.8 gm GT X1 ONE Stop: 05/20/25 09:31 Last Admin: 05/20/25 12:27 Dose: 0.8 gm Sevelamer Carbonate (Sevelamer Carbonate 800 Mg Tablet) 800 mg GT X1 ONE Stop: 05/21/25 07:11 Last Admin: 05/21/25 08:20 Dose: 800 mg Sevelamer Carbonate (Sevelamer Carbonate 800 Mg Tablet) 800 mg GT TIDWM [facility] Stop: 06/22/25 07:59 Last Admin: 05/26/25 17:57 Dose: 800 mg Sevelamer Carbonate (Sevelamer Carbonate 0.8 Gm Packet (Non-Formulary)) 0.8 gm GT TIDWM [facility] Stop: 06/26/25 07:59 Last Admin: 06/02/25 17:43 Dose: 0.8 gm Sevelamer Carbonate (Sevelamer Carbonate 0.8 Gm Packet (Non-Formulary)) 1 gm GT TIDWM [facility] Stop: 07/03/25 07:59 Last Admin: 06/07/25 08:43 Dose: Not Given Sevelamer Carbonate (Sevelamer Carbonate 800 Mg Tablet) 800 mg PO TIDWM [facility] Stop: 07/06/25 07:59 Last Admin: 06/10/25 17:45 Dose: 800 mg Sevelamer Carbonate (Sevelamer Carbonate 0.8 Gm Packet (Non-Formulary)) 0.8 gm GT TIDWM [facility] Stop: 07/11/25 07:59 Last Admin: 06/11/25 08:57 Dose: Not Given Sodium Chloride (Sodium Chloride Rt 10% 15 Ml Nebu) 5 ml INH X1 ONE Stop: 05/09/25 16:35 Last Admin: 05/09/25 20:57 Dose: Not Given Sodium Chloride (Sodium Chloride Rt Racquel 0.9% 3 Ml Nebu) 3 ml INH PRN PRN PRN Reason: SOLN Stop: 06/11/25 09:32 Sodium Chloride (Sodium Chloride Rt 10% 15 Ml Nebu) 5 ml INH X1 ONE Stop: 05/14/25 10:01 Last Admin: 05/14/25 15:06 Dose: 5 ml Sodium Chloride (Sodium Chloride Rt Racquel 0.9% 3 Ml Nebu) 3 ml INH PRN PRN PRN Reason: SOLN Stop: 06/16/25 11:42 Sodium Chloride (Sodium Chloride Rt 10% 15 Ml Nebu) 5 ml INH X1 ONE Stop: 05/19/25 08:41 Last Admin: 05/19/25 11:55 Dose: Not Given Sodium Chloride (Sodium Chloride Rt 10% 15 Ml Nebu) 5 ml INH X1 ONE Stop: 05/20/25 09:56 Last Admin: 05/23/25 19:46 Dose: Not Given Sodium Chloride (Sodium Chloride Rt 10% 15 Ml Nebu) 5 ml INH X1 ONE Stop: 06/01/25 09:50 Last Admin: 06/02/25 08:04 Dose: Not Given Sterile Water (Water, Sterile Inj 10 Ml Vial) 10 ml GT BID KYA; Protocol Stop: 07/14/25 09:14 Sterile Water (Water, Sterile Inj 50 Ml Vial) 10 ml GT BID KYA; Protocol Stop: 07/14/25 09:14 Last Admin: 06/14/25 10:08 Dose: 10 ml Tamsulosin HCl (Tamsulosin Hcl 0.4 Mg Capsule) 0.4 mg GT QDAY KYA; Protocol Stop: 06/09/25 11:44 Last Admin: 05/11/25 08:38 Dose: 0.4 mg Tetrabenazine (Tetrabenazine 12.5 Mg Tablet (Non-Formulay)) 12.5 mg PO TID KYA Stop: 07/11/25 13:59 Valproic Acid (Valproic Acid Syrup 250 Mg/5 Ml Udc) 250 mg GT TID KYA Stop: 06/07/25 13:59 Last Admin: 05/08/25 15:39 Dose: 250 mg Valproic Acid (Valproic Acid Syrup 250 Mg/5 Ml Udc) 250 mg GT X1 ONE Stop: 05/08/25 15:40 Last Admin: 05/08/25 15:40 Dose: 250 mg Valproic Acid (Valproic Acid Syrup 250 Mg/5 Ml Udc) 250 mg GT Q8HR KYA Stop: 06/26/25 17:59 Last Admin: 06/09/25 21:01 Dose: 250 mg Assessment & Plan Plan 25-year-old male with history of cerebral palsy, asthma, seizure disorder, chronic mastoiditis, recurrent pneumonia, and chronic PEG tube dependence presented on 05/08/2025 with fever and seizure, was admitted for sepsis workup, and later transferred to the ICU on 05/09/25 for increased agitation, tachypnea, and increased secretions with recurrent fevers. Was downgraded on 05/31/25 due to resolution of fever for at least 48 hours however was upgraded back on 06/05/25 due to increased work of breathing, ventilator asynchrony agitation and fever. Patient was downgraded on 06/12 due to stable condition on pressure support with improvement of agitation and lack of fever over 24 hours. ICU team was consulted for recurrent fevers of unknown origin. NEURO #Agitation Differential diagnosis: ICU acquired delirium, opiate withdrawal, delirium Diagnostic workup: - Patient was weaned off of sedation and was downgraded to telemetry, however as sedatives were down titrated and telemetry patient had episode of severe agitation and ventilator asynchrony and was upgraded to ICU for further intervention. - EEG 05/11 unremarkable. Repeat EEG 05/20 showed electrographic seizure activity. Continuous EEG 05/22-05/23: no seizure activity or status epilepticus. Repeat EEG 06/05 negative for seizure activity. - MRI brain 05/23: showed chronic infections, no acute pathology. - Cisatracurium gtt discontinued - Versed gtt discontinued Treatment: - Phenobarbital 129.6 mg three times daily - Back on Clonazepam 0.5 mg four times daily - Oxycodone 10 mg three times daily - Hold orders were added for respiratory rate <14, heart rate <70, or BP <100/60 for the above 3 meds Follow-up: - Use Versed 4 mg pushes every hour as needed #Tardive dyskinesia Diagnostic workup: - Nonpurposeful twisting movements of the patient's upper extremity with recurrent grimaces noted on 06/10 when the patient was taken off sedation - Patient's family notes that the patient has had a long history of nonpurposeful movement and has been previously prescribed deutetrabenazine for management by his neurologist - If deutetrabenazine remains ineffective, will increase to 12 mg twice daily after 1 week of starting the medication, may take up to 4-12 weeks to see maximal effect Treatment: - Hold home Seroquel 50 mg in the morning and 100 mg at night due to tardive dyskinesia - Deutetrabenazine 9 mg twice daily #Seizure disorder by history #Cerebral palsy by history Diagnostic workup: - Active seizure disorder ruled out, multiple EEGs negative for seizure activity Treatment: - Continue Depakote 250 mg GT every 8 hours and Keppra 750 mg GT twice daily CARDIO #Sinus tachycardia Differential diagnosis: Infection, hypersympathetic activity Diagnostic workup: - Did have positive sputum and urine culture for Pseudomonas and ESBL respectively - Patient's last fever was 06/06/2025 04:36 - Echocardiogram was obtained to rule out any vegetations TTE shows normal systolic function, EF 55 to 60%, diastolic dysfunction grade 1, no evidence of vegetation or endocarditis Treatment: - Downtitrated propranolol 10 mg to 5 mg 3 times daily Follow-up: - Monitor for fever, use ibuprofen as needed for fever episode - Telemetry monitoring PULM #Mucus plugs, right upper lung and left lower lung Diagnostic workup: - Chest x-ray obtained 06/07 AM, showed a left lower lobe consolidation, ddx left lower lobe pneumonia versus mucous plug versus left pleural effusion versus mucous plug versus atelectasis lung ultrasound at bedside, effusion ruled out, no hepatization of the lung noted. Consent obtained from family for bronchoscopy. - Bedside bronchoscopy showed left lower lobe mucous plug, suction. Treatment: - Bedside bronchoscopy (06/07/2025) with clearance of mucous plug done successfully - Repeat chest x-ray obtained 06/17 in AM negative for acute findings Follow-up: - Once weaned off sedation and patient has cough reflex intact and more awake/alert, consider chest physiotherapy. #Mechanical ventilation #Chronic respiratory failure status post tracheostomy 05/26 Currently on PS Diagnostic workup: - Patient failed extubation during the hospitalization on 05/12, was reintubated overnight 05/13. - Unable to wean patient off ventilator, tracheostomy performed 05/26/2025, sutures removed 06/06/2025 - Patient underwent bronchoscopies 05/14, 05/17 and 06/05 for increased secretions - Currently on PS, will keep PS overnight Treatment: - Monitor SpO2, goal greater than 92 - Continue mechanical ventilation on PS Follow-up: - Continue to down titrate pressure on PS as tolerated until 5 mmHg, then transition to Blow-by if patient tolerates low pressure PS ventilation #Asthma by history Diagnostic workup: - Patient has history of asthma on montelukast, albuterol as needed at home Treatment: - Currently on mechanical ventilation GI #Chronic PEG tube dependence Differential diagnosis: Chronic dysphagia likely in setting of cerebral palsy Diagnostic workup: - Patient was previously on Jevity 1.5, switched to Nepro due to hyperphosphatemia. Treatment: - Nepro trickle feeds, advance as tolerated Follow-up: - Goal tube feeds as tolerated NEPHRO #Elevated alkaline phosphatase, improving #Low PTH #Abnormal nuclear medicine bone scan Differential diagnosis: increased osteoblastic activity in setting of vegetative state, bone infection (particularly of left mastoid), hypoparathyroidism, osteoarthritis Diagnostic workup: - PTH intact low at 3.6, calcium 9.9, vitamin D 25-OH 18.1 - Renal function intact, at baseline - Nuclear medicine bone scan shows minor asymmetric uptake left knee and mild increased uptake mid left tibia - Knee x-ray 06/06 and tibia-fibula x-ray 06/06 showed no findings diagnostic for osseous metastatic disease - MRI left leg 06/08 images severely degraded by continuous patient motion - No pain to palpation of bilateral lower extremities Treatment: - Continue sevelamer 800 mg 3 times daily - Patient to follow up on abnormal imaging outpatient URO #Phimosis s/p dorsal slit procedure 06/08/2025 #Paraphimosis (resolved) #Balanitis (resolved) Diagnostic workup: - Edema and tenderness of the glans penis, Swelling of the distal retracted foreskin, Constricting band of tissue proximal to the head of the penis at the coronal sulcus on presentation, s/p reduction of the paraphimosis by urologist Dr. Vargas on 05/09. - Patient has somewhat retractable foreskin, has good urine output, no swelling noted, has external catheter draining well - Urologist Dr. Vargas performed dorsal slit procedure on 06/08 Treatment: - Dilaudid 0.5 mg IVP every 4 hours as needed for breakthrough pain Follow-up: - Continue to monitor for worsening swelling, bleeding, or blockage of urine HEME #Acute nonocclusive thrombus in the left brachial vein Diagnostic workup: - Venous doppler study of upper extremities 05/16: Normal right upper extremity deep venous system. Positive for nonocclusive thrombus in the left brachial vein. - Per chart review and patient's parents, patient does not have history of clots. - Given patient's inability to safely engage and risk of continued trauma to buccal mucosa by biting will not do full dose anticoagulation given increased risk of bleeding Treatment: - Heparin loading dose and ggt. Lovenox to heparin due to heparin?s shorter half-life, which allows for more rapid cessation in the event of bleeding, a shorter half life and can be stopped if bleeding occurs. - Stopped heparin ggt due to hematuria on 05/18. - Restarted Lovenox 05/31 for tx of primary upper extremity deep vein thrombosis, anticoagulation should be continued for a minimum of three months following the initial thrombotic event, but given patient is high risk to buccal mucosa trauma will not pursue therapeutic dose as high risk of bleeding. Transitioned to heparin SC every 8 hours. Follow-up: - Heparin SC every 8 hours for DVT prophylaxis #Normocytic Anemia Differential diagnosis: Anemia of chronic disease, nutritional anemia, iatrogenic Diagnostic workup: - Likely multifactorial, currently not an active concern Treatment: - Monitor CBC, transfuse if hemoglobin less than 7 ENDO #No active problems Integumentary #Tongue Laceration, traumatic #Gingivial Bleeding, Oral Trauma Diagnostic workup: -Known to have episodes of jaw spasms and teeth clenching with agitation. Had significant trauma to gums and tongue due to clenching of teeth 06/06 - No further bleeding appreciated in oral mucosa Treatment: - Patient required cisatracurium to relax jaw, pressure was applied locally, oral packing none, injections of lido?epinephrine x 3 to gums on 06/06 night Follow-up: - Monitor for bleeding ID #Fever of unknown origin Differential diagnosis: More likely medication side effect, less likely infectious cause Diagnostic workup: - Repeat chest x-ray obtained 06/17 in AM negative for acute findings Treatment: - CT chest/abdomen/pelvis ordered to identify any occult causes for fever of unknown origin, pending - Recommend discontinuation of Zosyn as the fever of unkown origin is less likely to be infectious cause - Recommend weaning off of extensive medication list as tolerated - ID has been consulted, who notes that recurrent fevers are more likely medication related and unlikely infection related, recommended cessation of antibiotics Follow-up: - Deutetrabenazine has not been shown to cause fevers, however due to the MOA of deutetrabenazine, it can increase serotonin levels, which could be contributing to the patients fevers of unknown origin, would be risk vs benefit as the deutetrabenazine does improve tardive dyskinesia #Bilateral chronic mastoiditis #Sinusitis #Bilateral otitis media #Bilateral otitis externa #Brittney parapsilosis #UTI, E.coli, ESBL #Pseudomonas aeruginosa, sputum positive ? -History of chronic mastoiditis. -Met SIRS criteria on admission: T 105F, HR 176, RR 26, PaCO2 26, WBC 16.3. -Head CT (05/08/2025): prominent sphenoid ethmoid maxillary antral sinusitis, bilateral chronic mastoiditis, bilateral otitis media. -CT Orbit Sella Inner (05/08/2025): severe bilateral chronic mastoiditis, bilateral otitis externa and otitis media, bilateral cholesteatomas in the attics. -CXR (05/09/2025): Bilateral Perihilar Pneumonia. CXR (05/13/2025): Extensive Bilateral Pneumonia, CXR(05/19/2025): Significant bilateral Pneumonia -CT Chest/abd/pelvis (05/16/2025): Extensive bilateral pneumonia, Cystitis pattern, Cholelithiasis -A repeat Cocci serology test was negative -Lumbar puncture(05/10/2025): clear, WBC 3, glucose 70, total protein 25. CSF testing negative. -Respiratory viral panel (05/10/2025): rhinovirus/enterovirus and human metapneumovirus detected. -UA 05/08 and 05/16 negative. [Culture Hx] -1st Blood Cx (05/08): No growth for 5 days. 2nd Blood Cx (05/11): No growth for 5 days, 3rd Blood Cx (05/16): No growth for 5 days, 4th Blood Cx (06/01): No growth for 48hrs -1st Sputum Cx (05/09): Pseudomonas aeruginosa (only sensitive to Meropenem, Tobramycin). 2nd Sputum Cx (05/13): Mixed oral hamilton. 3rd Sputum Cx (05/19): Mixed oral hamilton, 4th Sputum Cx (05/20): Brittney albicans, 5th Sputum Cx (06/01): GNR -CSF Cx (05/10): No growth for 3 days -Left Ear Cx (05/12): Brittney parapsilosis -Right Ear Cx(05/12): E.coli, ESBL (only sensitive to Ertapenem, Meropenem, Zosyn) -Urine Cx (06/01): E.coli, ESBL (only sensitive to Ertapenem, Meropenem, Nitrofurantoin, Zosyn) -Sputum culture 06/05 shows sensitive to Zosyn and intermittent resistance to cefepime [Antibiotics/Antifungal Hx] IV Zosyn 3.375g x1 (at 05/08) IV Ceftriaxone 1g x1 (at 05/08) IV Acyclovir 640mg q8hr (05/08-05/11) since LP negative. IV Ceftriaxone 2g q12hr (05/08-05/11) IV Vancomycin qd (05/08-05/11) since MRSA screen is negative Ofloxacin Opt racquel 0.3% 5 drops Both ears bid (05/09-05/18, 05/21-05/31) IV Meropenem 1000mg q8hr (05/12-05/22, 05/24-05/25) IV Doxycycline (05/16-05/18) IV Micafungin 100mg qd (05/28-05/30, 06/01-06/03) Ciprofloxacin Op Racquel 0.3% ear drops (06/02-06/03) -CXR is showing pneumonia, but CXR often remain abnormal for days to weeks. The infiltrate or consolidation can persist even though the infection has cleared. The radiographic improvement can take up to 4-6 weeks.? Patient is on minimal ventilator setting, oxygen requirement is stable, and has completed antibiotics course. -UTI unlikely sources of infection given low number of colonies and long antibiotics treatment in ICU. -Per ENT, Dr. Ojeda, patient does not have acute coalescent mastoiditis in either ear. Left and right middle ear is also not filled with effusion. -Chest x-ray 06/07 AM, showed a left lower lobe consolidation, ddx left lower lobe pneumonia versus mucous plug versus left pleural effusion versus mucous plug versus atelectasis lung ultrasound at bedside, effusion ruled out, no hepatization of the lung noted. Bedside bronchoscopy showed left lower lobe mucous plug, cleared with deep suction Treatment: - Recommend discontinuation of antibiotics at this time Previous treatments: IV Zosyn 4.5 g q8hr (06/05 - 06/16) IV Zosyn 3.375g x1 (at 05/08) IV Ceftriaxone 1g x1 (at 05/08) IV Acyclovir 640mg q8hr (05/08-05/11) IV Ceftriaxone 2g q12hr (05/08-05/11) IV Vancomycin qd (05/08-05/11) since MRSA screen is negative IV Meropenem 1000mg q8hr (05/12-05/22, 05/24-05/25) IV Doxycycline (05/16-05/18) IV Micafungin 100mg qd (05/28-05/30, 06/01-06/03) IV fluconazole 06/05-06/07 Follow-up: - Once weaned off sedation and patient has cough reflex intact and more awake/alert, will consider chest physiotherapy. MSK #No active problems SKIN #No active problems Disposition: Tele, plan for LTAC placement once medically cleared Diet: Nepro 1.8 Christ 1L RTH and Pro Stat Sugar Free 30 ml GI prophylaxis: Lansoprazole 30mg GT qd DVT prophylaxis: SCDs,[id number] SC BID due to bleeding CODE STATUS: Full code Patient plan of care was discussed with the attending conference specialist, Dr. Siu. Alejandro Maravilla, PGY-1
[2025-06-17] MEDS: IBUPROFEN SUSP 100 MG/5 ML UDC GT (13:33)
--- NOTE | 2025-06-17 15:33 | PC.SS ---
Family meeting conducted with patient's parents and residential team. Therapeutic Radiologist services utilized. Parent's voiced concern with notification that patient might be transferred in lieu of possessing a fever. Resident team informed parent's that patient will not be transferred until patient is medically stable. Attending Dr. Ennis confirmed with the parent's that fever needs to be controlled. Attending reiterated that patient's discharge will not occur until patient is stable. Parent's acknowledged plan to transition patient to LTAC upon medical stability. Patient's father voiced concerns with team: patient's medication being dropped on floor and bedside nurse picking up dropped pills and dispensing the pills to the patient, variances with patient's medication distribution, patient's temperature not being obtained on when requested. Attending addressed concerns with parents. Attending to follow up with nursing staff. Residential team responded to parent's questions. Discussion completed.
--- NOTE | 2025-06-17 15:39 | PC.SS ---
AIR LIFT OPERATOR conducted phone contact with risk management staff, confirmed concerns relayed by the patient's father. AIR LIFT OPERATOR informed risk management staff that attending addressed concerns with patient's parents and will follow up with nursing staff. AIR LIFT OPERATOR provided update to charge nurse.
--- NOTE | 2025-06-17 21:09 | PC.NURSE ---
PER MAINTENANCE JOURNEYMAN READING CT SCAN RESULTS OF NOW. D/T ORDER BEING ROUTINE, IT WOULD NOT BE READ RIGHT AWAY
--- NOTE | 2025-06-17 23:34 | PD.VPROG1 ---
Telemedicine visit statement This visit was conducted with the use of interactive audio and video telecommunications system that permits real time communication between the patient and the provider. Patient's verbal consent for virtual visit was obtained on 06/17/25 at 2334. Documentation for date of: 06/17/25 Virtual exam Vital Signs Temp Pulse Resp BP Pulse Ox O2 Del Method O2 Flow Rate 100.7 F H 150 H 32 H 162/100 H 99 Mechanical Ventilation 35 06/17/25 21:11 06/17/25 21:11 06/17/25 20:00 06/17/25 21:11 06/17/25 20:00 06/17/25 20:00 06/17/25 20:00 FiO2 25 06/17/25 20:00 Objective Labs 06/17/25 04:22 06/17/25 04:22 Labs: Laboratory Results - last 24 hr 06/17/25 04:22 WBC 9.9 RBC 2.99 L Hgb 8.2 L Hct 25.6 L MCV 86 MCH 27.4 MCHC 32.0 RDW Std Deviation 50.9 H Plt Count 564 H Neut % (Auto) 46 Lymph % (Auto) 36 Hardeman % (Auto) 14 H Eos % (Auto) 3 Baso % (Auto) 1 Neut # (Auto) 4.5 Lymph # (Auto) 3.5 Hardeman # (Auto) 1.4 H Eos # (Auto) 0.3 Baso # (Auto) 0.1 Immature Gran # (Auto) 0.04 H Absolute Nucleated RBC 0.00 Immature Gran % 0 Nucleated RBC % 0 Sodium 141 Potassium 3.3 L Chloride 103 Carbon Dioxide 25.1 Anion Gap 13 BUN 8 L Creatinine 0.7 Estim Creat Clear Calc 124.1 eGFR > 60 BUN/Creatinine Ratio 11 L Glucose 85 Calculated Osmolality 278 Calcium 9.9 Corrected Calcium 9.9 Phosphorus 3.9 Magnesium 1.8 Total Bilirubin 0.2 L AST 31 ALT 33 Alkaline Phosphatase 130 H Total Creatine Kinase 125 D Total Protein 6.8 Albumin 4.3 Globulin 2.5 Albumin/Globulin Ratio 1.7 ABG Interpretation ABG results: 05/09/25 05/09/25 05/09/25 11:56 13:40 18:50 ABG pH 7.40 7.27 L D 7.28 L ABG pCO2 40 43 55 H D ABG pO2 131 H 53 L* D 70 L ABG HCO3 25 20 26 ABG O2 Saturation 99 H 81 L 92 ABG Base Excess 0 -7 L -2 VBG pH VBG pCO2 VBG pO2 VBG Base Excess 05/10/25 05/11/25 05/12/25 00:14 05:06 01:18 ABG pH 7.35 7.33 L 7.39 ABG pCO2 42 D 54 H D 48 ABG pO2 103 D 93 94 ABG HCO3 23 28 H 29 H ABG O2 Saturation 99 H 98 98 ABG Base Excess -3 2 3 VBG pH VBG pCO2 VBG pO2 VBG Base Excess 05/12/25 05/12/25 05/13/25 03:58 11:50 05:10 ABG pH 7.46 H 7.39 7.19 L* D ABG pCO2 41 48 60 H D ABG pO2 105 58 L* D 114 H D ABG HCO3 29 H 29 H 23 ABG O2 Saturation 99 H 90 L 98 ABG Base Excess 5 H 4 H -6 L VBG pH VBG pCO2 VBG pO2 VBG Base Excess 05/17/25 05/18/25 05/19/25 01:30 04:09 04:43 ABG pH 7.38 7.43 7.47 H ABG pCO2 46 44 43 ABG pO2 90 83 80 L ABG HCO3 27 H 29 H 31 H ABG O2 Saturation 98 97 97 ABG Base Excess 2 5 H 7 H VBG pH VBG pCO2 VBG pO2 VBG Base Excess 05/21/25 05/21/25 05/31/25 04:18 06:33 08:06 ABG pH 7.37 D 7.46 H ABG pCO2 50 H 38 D ABG pO2 40 L* D 121 H D ABG HCO3 29 H 27 H ABG O2 Saturation 66 L 100 H ABG Base Excess 3 3 VBG pH 7.55 VBG pCO2 31 L VBG pO2 144 H VBG Base Excess 5 H 06/05/25 06/05/25 06/06/25 13:37 23:46 05:20 ABG pH 7.47 H 7.45 ABG pCO2 35 38 ABG pO2 200 H 54 L* D ABG HCO3 25 26 ABG O2 Saturation 101 H 89 L ABG Base Excess 2 2 VBG pH 7.50 VBG pCO2 34 L VBG pO2 90 H VBG Base Excess 4 H 06/10/25 17:41 ABG pH ABG pCO2 ABG pO2 ABG HCO3 ABG O2 Saturation ABG Base Excess VBG pH 7.40 VBG pCO2 43 VBG pO2 43 VBG Base Excess 2
[2025-06-18] VITALS (18 sets, daily range): BP systolic 116–156; BP diastolic 76–104; PULSE 90–152; RESP 16–39; TEMP 36.3–38.4; O2SAT 94–100; BMI 27.6
[2025-06-18] MEDS: MIDAZOLAM INJ 1 MG/ML VIAL 2 ML 4 MG IVP ×7 (00:07→23:35)
--- NOTE | 2025-06-18 01:22 | PC.NURSE ---
DR. JOHNSON MADE AWARE OF CT RESULTS OF A/P. PT MOTION DEGRADES IMAGES OF BOWEL DETAILS. WILL RELAY TO DAY TEAM IF THEY WOULD LIKE KUB DONE
[2025-06-18] MEDS: HEPARIN SOD INJ 5000 UNIT/ML VIAL SC ×3 (06:10→21:17)
[2025-06-18] MEDS: PROPRANOLOL 10 MG TABLET 5 MG GT ×3 (06:11→21:18)
--- NOTE | 2025-06-18 07:25 | ESPR_ITS ---
<Statement entered by Kamlesh Baer MD - 06/18/25 17:51> Patient seen and examined at bedside. I discussed and supervised with the diversity intern physician who took care of this patient. I personally saw and examined the patient. I agree with most of the assessment and plan. Plan of care discussed with attending Dr. Ennis. Kamlesh Baer MD PGY-2 Documentation for date of: 06/18/25 Subjective Subjective Interval history: Overnight patient received Versed 4 mg x 3 Dilaudid 0.5 mg x 3. RR decreased overnight so skipped Clonazepam and Oxycodone dose this morning. Phosphorus yesterday was normal, will go down from TID to BID. Recheck tomorrow morning. Patient appeared comfortable, sleeping, not agitated at this time. RR in 16. Pharmacy is unable to switch to tetrabenazine at this time. Plan to discuss with CM and LTAC. Chest x-ray negative. CTAP negative. Exam Vital Signs Temp Pulse Resp BP Pulse Ox O2 Del Method O2 Flow Rate 99.2 F 100 20 127/79 100 Mechanical Ventilation 35 06/18/25 04:00 06/18/25 06:25 06/18/25 06:25 06/18/25 06:11 06/18/25 06:25 06/18/25 04:00 06/18/25 04:00 FiO2 25 06/18/25 06:25 Narrative Exam General: Trach and PEG tube in place. AAOx0, Non-verbal at baseline. Calm, sleeping. Eye: Normal conjunctiva, no scleral icterus Neck: Supple, non-tender, no JVD, no lymphadenopathy Lungs: Crackle breath sounds, symmetric chest rise, No wheezing, rhonchi Heart: Peripheral pulses intact bilaterally, Tachycardic Abdomen: Soft, non-tender, non-distended, no palpable masses Musculoskeletal: No cyanosis, No visible joint swelling, +1 Bilaterally upper extremities edema Skin: Skin is warm, dry, no rashes or lesions. Neuro: Cranial nerves II-XII grossly intact. Objective Labs 06/17/25 04:22 06/17/25 04:22 ABG Interpretation ABG results: 05/09/25 05/09/2525 11:56 13:40 18:50 ABG pH 7.40 7.27 L D 7.28 L ABG pCO2 40 43 55 H D ABG pO2 131 H 53 L* D 70 L ABG HCO3 25 20 26 ABG O2 Saturation 99 H 81 L 92 ABG Base Excess 0 -7 L -2 VBG pH VBG pCO2 VBG pO2 VBG Base Excess 05/10/25 05/11/25 05/12/25 00:14 05:06 01:18 ABG pH 7.35 7.33 L 7.39 ABG pCO2 42 D 54 H D 48 ABG pO2 103 D 93 94 ABG HCO3 23 28 H 29 H ABG O2 Saturation 99 H 98 98 ABG Base Excess -3 2 3 VBG pH VBG pCO2 VBG pO2 VBG Base Excess 05/12/25 05/12/25 05/13/25 03:58 11:50 05:10 ABG pH 7.46 H 7.39 7.19 L* D ABG pCO2 41 48 60 H D ABG pO2 105 58 L* D 114 H D ABG HCO3 29 H 29 H 23 ABG O2 Saturation 99 H 90 L 98 ABG Base Excess 5 H 4 H -6 L VBG pH VBG pCO2 VBG pO2 VBG Base Excess 05/17/25 05/18/25 05/19/25 01:30 04:09 04:43 ABG pH 7.38 7.43 7.47 H ABG pCO2 46 44 43 ABG pO2 90 83 80 L ABG HCO3 27 H 29 H 31 H ABG O2 Saturation 98 97 97 ABG Base Excess 2 5 H 7 H VBG pH VBG pCO2 VBG pO2 VBG Base Excess 05/21/25 05/21/25 05/31/25 04:18 06:33 08:06 ABG pH 7.37 D 7.46 H ABG pCO2 50 H 38 D ABG pO2 40 L* D 121 H D ABG HCO3 29 H 27 H ABG O2 Saturation 66 L 100 H ABG Base Excess 3 3 VBG pH 7.55 VBG pCO2 31 L VBG pO2 144 H VBG Base Excess 5 H 06/05/25 06/05/25 06/06/25 13:37 23:46 05:20 ABG pH 7.47 H 7.45 ABG pCO2 35 38 ABG pO2 200 H 54 L* D ABG HCO3 25 26 ABG O2 Saturation 101 H 89 L ABG Base Excess 2 2 VBG pH 7.50 VBG pCO2 34 L VBG pO2 90 H VBG Base Excess 4 H 06/10/25 17:41 ABG pH ABG pCO2 ABG pO2 ABG HCO3 ABG O2 Saturation ABG Base Excess VBG pH 7.40 VBG pCO2 43 VBG pO2 43 VBG Base Excess 2 Quality Measures Quality Measures VTE prophylaxis (SCDs) and sepsis Current suspected stage: sepsis (resolved) Possible source: pulmonary Blood cultures ordered: yes Antibiotic ordered: Yes Assessment & Plan Assessment Current Active Medications: Generic Name Dose Route Start Last Admin Trade Name Freq PRN Reason Stop Dose Admin Acetaminophen 325 mg 06/16/25 16:18 06/17/25 21:11 Acetaminophen Racquel 325 Mg/10 Ml Udc GT 07/09/25 16:12 325 mg Q4HR PRN Administration pain (1-3) or fever > 100.4 Clonazepam 0.5 mg 06/14/25 21:00 06/18/25 06:06 Clonazepam 0.5 Mg Tablet PO 06/19/25 20:59 Not Given QID KYA Deutetrabenazine 9 mg 06/14/25 08:00 06/17/25 17:36 Deutetrabenazine 6 Mg Tablet (Non-Formulary) GT 07/14/25 07:59 9 mg BIDWM KYA Administration Ferrous Sulfate 325 mg 06/01/25 09:00 06/17/25 08:18 Ferrous Sulfate 300 Mg/5 Ml Udc PO 07/01/25 08:59 325 mg QOD KYA Administration Heparin Sodium (Porcine) 5,000 unit 06/08/25 14:00 06/18/25 06:10 Heparin Sod Inj 5000 Unit/Ml Vial SC 06/22/25 13:59 5,000 unit Q8HR KYA Administration Hydromorphone HCl 0.5 mg 06/10/25 06:56 06/17/25 18:35 Hydromorphone Inj 2 Mg/Ml Vial IVP 06/19/25 06:55 0.5 mg Q4HR PRN Administration BREAKTHROUGH PAIN Protocol Ibuprofen 100 mg 06/15/25 15:47 06/17/25 13:33 Ibuprofen Susp 100 Mg/5 Ml Udc GT 07/15/25 15:46 100 mg Q6HR PRN Administration PAIN 1-3 OR FEVER > 101 Protocol Levetiracetam 500 mg 06/16/25 21:00 06/17/25 21:11 Levetiracetam Liqd 500 Mg/5 Ml Udc GT 07/16/25 20:59 500 mg BID KYA Administration Midazolam HCl 4 mg 06/17/25 19:04 06/18/25 00:07 Midazolam Inj 1 Mg/Ml Vial 2 Ml IVP 06/22/25 19:03 4 mg Q2H PRN Administration AGITATION OR ANXIETY Ondansetron HCl 4 mg 05/27/25 14:37 Ondansetron Odt 4 Mg Tabrap GT 06/26/25 14:36 Q6HR PRN NAUSEA OR VOMITING Protocol Oxycodone HCl 10 mg 06/12/25 11:47 06/18/25 06:06 Oxycodone Hcl 5 Mg Ir Tab GT 06/21/25 15:44 Not Given TID KYA Phenobarbital 129.6 mg 06/12/25 11:47 06/18/25 06:11 Phenobarbital 32.4 Mg Tablet GT 06/24/25 14:44 129.6 mg TID KYA Administration Propranolol HCl 5 mg 06/12/25 14:00 06/18/25 06:11 Propranolol 10 Mg Tablet GT 07/12/25 13:59 5 mg TID KYA Administration Sevelamer Carbonate 0.8 gm 06/11/25 09:00 06/17/25 17:44 Sevelamer Carbonate 0.8 Gm Packet (Non-Formulary) GT 07/11/25 08:59 0.8 gm TIDWM KYA Administration Sterile Water 10 ml 06/14/25 17:30 06/17/25 17:43 Water, Sterile Inj 50 Ml Vial GT 07/14/25 17:29 10 ml BIDWM KYA Administration Protocol Valproic Acid 500 mg 06/10/25 09:00 06/17/25 21:11 Valproic Acid Syrup 250 Mg/5 Ml Udc GT 07/10/25 08:59 500 mg BID KYA Administration Plan 24-year-old male with cerebral palsy, asthma, seizure disorder, chronic mastoiditis, recurrent pneumonia, and chronic PEG tube dependence presented with fever and seizure, was admitted for sepsis workup, and later transferred to the ICU for intubation due to concerns about airway protection. Patient has been downgraded from ICU to tele on 05/31/2025; however, re-upgraded to ICU on 06/05 due to tachycardia in 160s, tachypnea, persistent fever, and ventilator asynchrony. #Agitation Differential diagnosis: ICU acquired delirium, opiate withdrawal, delirium Diagnostic workup: - Patient was weaned off of sedation and was downgraded to telemetry, however as sedatives were down titrated and telemetry patient had episode of severe agitation and ventilator asynchrony and was upgraded to ICU for further intervention. - EEG 05/11 unremarkable. Repeat EEG 05/20 showed electrographic seizure activity. Continuous EEG 05/22-05/23: no seizure activity or status epilepticus. Repeat EEG 06/05 negative for seizure activity. - MRI brain 05/23: showed chronic infections, no acute pathology. - Cisatracurium gtt discontinued - Versed gtt discontinued Treatment: - Phenobarbital 129.6 mg three times daily - Continue Clonazepam 0.5 mg four times daily - Oxycodone 10 mg three times daily - Hold orders were added for respiratory rate <14, heart rate <70, or BP <100/60 for the above 3 meds Follow-up: - Use Versed 4 mg pushes every hour as needed #Tardive dyskinesia Diagnostic workup: - Nonpurposeful twisting movements of the patient's upper extremity with recurrent grimaces noted on 06/10 when the patient was taken off sedation - Patient's family notes that the patient has had a long history of nonpurposeful movement and has been previously prescribed deutetrabenazine for management by his neurologist - Per ICU, if deutetrabenazine remains ineffective, will increase to 12 mg twice daily after 1 week of starting the medication, may take up to 4 weeks to see maximal effect Treatment: - Discontinued home Seroquel 50 mg in the morning and 100 mg at night due to tardive dyskinesia - Deutetrabenazine 9 mg twice daily #Sepsis #Bilateral chronic mastoiditis #Sinusitis #Bilateral otitis media #Bilateral otitis externa #Brittney parapsilosis #Community Acquired Pneumonia #UTI, E.coli, ESBL #Pseudomonas aeruginosa, sputum positive #Mucus plugs, right upper lung and left lower lung ? -History of chronic mastoiditis. -Met SIRS criteria on admission: T 105F, HR 176, RR 26, PaCO2 26, WBC 16.3. -Head CT (05/08/2025): prominent sphenoid ethmoid maxillary antral sinusitis, bilateral chronic mastoiditis, bilateral otitis media. -CT Orbit Sella Inner (05/08/2025): severe bilateral chronic mastoiditis, bilateral otitis externa and otitis media, bilateral cholesteatomas in the attics. -CXR (05/09/2025): Bilateral Perihilar Pneumonia. CXR (05/13/2025): Extensive Bilateral Pneumonia, CXR(05/19/2025): Significant bilateral Pneumonia -CT Chest/abd/pelvis (05/16/2025): Extensive bilateral pneumonia, Cystitis pattern, Cholelithiasis -A repeat Cocci serology test was negative -Lumbar puncture(05/10/2025): clear, WBC 3, glucose 70, total protein 25. CSF testing negative. -Respiratory viral panel (05/10/2025): rhinovirus/enterovirus and human metapneumovirus detected. -UA 05/08 and 05/16 negative. -06/17 Chest x-ray negative. CTAP negative [Culture Hx] -1st Blood Cx (05/08): No growth for 5 days. 2nd Blood Cx (05/11): No growth for 5 days, 3rd Blood Cx (05/16): No growth for 5 days, 4th Blood Cx (06/01): No growth for 48hrs -1st Sputum Cx (05/09): Pseudomonas aeruginosa (only sensitive to Meropenem, Tobramycin). 2nd Sputum Cx (05/13): Mixed oral hamilton. 3rd Sputum Cx (05/19): Mixed oral hamilton, 4th Sputum Cx (05/20): Brittney albicans, 5th Sputum Cx (06/01): GNR -CSF Cx (05/10): No growth for 3 days -Left Ear Cx (05/12): Brittney parapsilosis -Right Ear Cx(05/12): E.coli, ESBL (only sensitive to Ertapenem, Meropenem, Zosyn) -Urine Cx (06/01): E.coli, ESBL (only sensitive to Ertapenem, Meropenem, Nitrofurantoin, Zosyn) -Sputum culture 06/05 shows sensitive to Zosyn and intermittent resistance to cefepime [Antibiotics/Antifungal Hx] IV Zosyn 3.375g x1 (at 05/08) IV Ceftriaxone 1g x1 (at 05/08) IV Acyclovir 640mg q8hr (05/08-05/11) since LP negative. IV Ceftriaxone 2g q12hr (05/08-05/11) IV Vancomycin qd (05/08-05/11) since MRSA screen is negative Ofloxacin Opt racquel 0.3% 5 drops Both ears bid (05/09-05/18, 05/21-05/31) IV Meropenem 1000mg q8hr (05/12-05/22, 05/24-05/25) IV Doxycycline (05/16-05/18) IV Micafungin 100mg qd (05/28-05/30, 06/01-06/03) Ciprofloxacin Op Racquel 0.3% ear drops (06/02-06/03) -CXR is showing pneumonia, but CXR often remain abnormal for days to weeks. The infiltrate or consolidation can persist even though the infection has cleared. The radiographic improvement can take up to 4-6 weeks.? Patient is on minimal ventilator setting, oxygen requirement is stable, and has completed antibiotics course. -UTI unlikely sources of infection given low number of colonies and long antibiotics treatment in ICU. -Per ENT, [place], patient does not have acute coalescent mastoiditis in either ear. Left and right middle ear is also not filled with effusion. -Chest x-ray 06/07 AM, showed a left lower lobe consolidation, ddx left lower lobe pneumonia versus mucous plug versus left pleural effusion versus mucous plug versus atelectasis lung ultrasound at bedside, effusion ruled out, no hepatization of the lung noted. Bedside bronchoscopy showed left lower lobe mucous plug, cleared with deep suction Plan: - Currently on IV Zosyn 06/05- planned until 06/18 for 14-day course coverage of Pseudomonas IV Zosyn 3.375g x1 (at 05/08) IV Ceftriaxone 1g x1 (at 05/08) IV Acyclovir 640mg q8hr (05/08-05/11) IV Ceftriaxone 2g q12hr (05/08-05/11) IV Vancomycin qd (05/08-05/11) since MRSA screen is negative IV Meropenem 1000mg q8hr (05/12-05/22, 05/24-05/25) IV Doxycycline (05/16-05/18) IV Micafungin 100mg qd (05/28-05/30, 06/01-06/03) IV fluconazole 06/05-06/07 Follow-up: - Once weaned off sedation and patient has cough reflex intact and more awake/alert, will consider chest physiotherapy. #Phimosis s/p dorsal slit procedure 06/08/2025 #Paraphimosis (resolved) #Balanitis (resolved) Diagnostic workup: - Edema and tenderness of the glans penis, Swelling of the distal retracted foreskin, Constricting band of tissue proximal to the head of the penis at the coronal sulcus on presentation, s/p reduction of the paraphimosis by urologist Dr. Vargas on 05/09 and phimosis dorsal slit on 06/08 Treatment: - Dilaudid 0.5 mg IVP every 4 hours as needed for breakthrough pain - Monitor for worsening swelling, bleeding, or blockage of urine #Seizure disorder by history #Cerebral palsy by history Diagnostic workup: - Active seizure disorder ruled out, multiple EEGs negative for seizure activity Treatment: - Continue Depakote 250 mg GT every 8 hours and Keppra 500 mg GT twice daily #Sinus tachycardia Differential diagnosis: Infection, hypersympathetic activity Diagnostic workup: - Did have positive sputum and urine culture for Pseudomonas and ESBL respectively - Patient's last fever was 06/12/2025 05:46 - Echocardiogram was obtained to rule out any vegetations TTE shows normal systolic function, EF 55 to 60%, diastolic dysfunction grade 1, no evidence of vegetation or endocarditis Treatment: - Downtitrated propranolol 10 mg to 5 mg 3 times daily - Continue antibiotics - Monitor for fever, use ibuprofen as needed for fever episode - Telemetry monitoring - Plan to titrate off propranolol completely in 3 days #Elevated alkaline phosphatase, improving #Low PTH #Abnormal nuclear medicine bone scan Differential diagnosis: increased osteoblastic activity in setting of vegetative state, bone infection (particularly of left mastoid), hypoparathyroidism, osteoarthritis Diagnostic workup: - PTH intact low at 3.6, calcium 9.9, vitamin D 25-OH 18.1 - Renal function intact, at baseline - Nuclear medicine bone scan shows minor asymmetric uptake left knee and mild increased uptake mid left tibia - Knee x-ray 06/06 and tibia-fibula x-ray 06/06 showed no findings diagnostic for osseous metastatic disease - MRI left leg 06/08 images severely degraded by continuous patient motion - No pain to palpation of bilateral lower extremities Treatment: - Continue sevelamer 800 mg 3 times daily - Patient to follow up on abnormal imaging outpatient #Tongue Laceration, traumatic #Gingivial Bleeding, Oral Trauma Diagnostic workup: -Known to have episodes of jaw spasms and teeth clenching with agitation. Had significant trauma to gums and tongue due to clenching of teeth 06/06 - No further bleeding appreciated in oral mucosa Treatment: - Patient required cisatracurium to relax jaw, pressure was applied locally, oral packing none, injections of lido?epinephrine x 3 to gums on 06/06 night Follow-up: - Monitor for bleeding #Bronchospasm #History of asthma -Magnesium for bronchodilator effect as needed. -Albuterol and Ipratropium as needed. #Failed extubation 05/12 #Acute hypoxic respiratory failure s/p tracheostomy #Ventilator dependent -Patient underwent tracheostomy on 05/26/2025 -Chest physiotherapy daily #Chronic PEG tube dependence -Nepro 1.8 Christ 1L RTH -Pro Stat Sugar Free 30 ml #Hyperphosphatemia -Sevelamer 1g GT 3 times daily, adjust if needed. #Normocytic Anemia #Leukocytosis-Resolving #Maculopapular rash to the buttocks-Resolving #Acute urinary retention-Resolved #Hypoalbuminemia-Resolved #Hyperkalemia-Resolved #Acute kidney injury-Resolved #Anion Gap Metabolic Acidosis-Resolved #Acute nonocclusive thrombus in the left brachial vein-Resolved Disposition: Tele Diet: Nepro 1.8 Christ 1L RTH and Pro Stat Sugar Free 30 ml GI prophylaxis: Lansoprazole 30mg GT qd DVT prophylaxis: SCDs,[id number] SC BID due to bleeding Code: FULL Assessment and plan discussed with my attending physician Dr. Ennis and Dr. Baer (PGY-2) Dr. Molina (PGY-1) - resident program specialist Attending Provider Attestation/Addendum I have seen and examined the patient. I was physically present for the luke portions of the services provided including history, physical exam, diagnosis, treatment plans and orders. I agree with assessment and plan of care as documented by residents. Patient seen and examined at bedside this morning. Received Versed 4 mg x 3 and Dilaudid 0.5 mg x 3 overnight. Appears more calm compared to yesterday. Also noted to have decreased temperature this morning, 100.7 ?F. Morning dose of clonazepam and oxycodone were held due to decreased respiratory rate. Discussed with neurology and coagulating bath mixer, we will hold his valproic acid and continue to decrease his medication to find out the offending medication for possibility of medication induced fever. He has also been off of Zosyn and lansoprazole for 2 days. Continues to be on pressor support, 8 PEEP, saturating well. Continues to be on Keppra 500 twice daily for seizure disorder. Continues to be on PEG tube, tolerating well. Patient has been receiving sevelamer for hyperphosphatemia, with improvement in phosphate, we will taper the dosing to twice daily. Family at bedside updated about patient's condition and management plans with wood machinist apprentice on phone (Deya, Interpretor ID [id number]). Family shows understanding, agrees with the management plan. Even though this this note was carefully revised there may still be minor errors in account executive sales representative due to voice recognition software. Jose Ennis MD
[2025-06-18] MEDS: VALPROIC ACID SYRUP 250 MG/5 ML UDC 500 MG GT (09:25)
[2025-06-18] MEDS: SEVELAMER CARBONATE 0.8 GM PACKET (NON-FORMULARY) GT ×2 (09:26→21:17)
[2025-06-18] MEDS: levETIRAcetam LIQD 500 MG/5 ML UDC GT ×2 (09:26→21:17)
[2025-06-18] MEDS: HYDROmorphone INJ 2 MG/ML VIAL 0.5 MG IVP ×3 (10:52→20:13)
--- NOTE | 2025-06-18 11:58 | ESPR_ITS ---
<Statement entered by Alexandr Easton MD - 06/18/25 16:51> I have reviewed the note and agree with the resident's assessment & plan with exceptions as below. I have personally reviewed labs, imaging, home meds/prior records, examined the patient, formulated and discussed management plan with my attending. Patient was seen and examined bedside this morning. No acute overnight events. Patient did spike another fever 100.7, but much improvement from previous days. At this time would also recommend to speak with neurology for possibility of discontinuing valproic acid as it could be also contributing to patient's fevers. Otherwise CT scan done yesterday did not show any source of infection. Alexandr Easton PGY2 Disclaimer: Even though this this note was dictated by speech recognition and even though it was carefully revised there may still be minor errors in rand butter due to voice recognition software. Documentation for date of: 06/18/25 Subjective Subjective Interval history: 06/18/2025 Patient seen and examined at bedside. No acute events overnight. Patient did have an episode of 100.7 degree fever overnight, however does seem to be trending towards improvement in terms of fever frequency. Patient was asleep during examination, appeared comfortable, and had a respiratory rate in the mid 20s. CT chest/abdomen/pelvis with contrast did not show any acutely concerning findings or any identifiable sources for this patient's recurrent fevers. Will recommend primary team to continue with weaning the patient off most of his medications. Consider reaching out to neurology to see if decreasing the patient's Depakote would be appropriate. Exam Vital Signs Temp Pulse Resp BP Pulse Ox O2 Del Method O2 Flow Rate 99.3 F 90 16 127/79 100 Mechanical Ventilation 35 06/18/25 08:00 06/18/25 08:00 06/18/25 08:00 06/18/25 08:00 06/18/25 08:00 06/18/25 08:00 06/18/25 08:00 FiO2 25 06/18/25 08:00 Narrative Exam Gen: Sleepy, random, non-purposeful twisting movement of arms and periodic grimacing of face HEENT: NCAT, EOMI, Pupils reactive KARLO, not icteric. External ears normal. No rhinorrhea. Moist mucous membranes with no visible blood. Neck: Supple, full range of motion, no observable masses, No meningeal sign. Lungs: Coarse breath sounds bilateral, mechanically ventilated. CV: Tachycardic, no murmurs appreciated. Abdomen: Soft, nondistended, No rebound tenderness, PEG tube in place, peristalsis present. MSK: No lower extremity edema, no redness, peripheral pulses presents, Contracted and swollen hands, decreased tone : Penis glan visible s/p dorsal slit procedure. No erythema or swelling present. Skin: No, petechiae, lesions, erythematous Neuro: Sleepy and moving extremities, pupils reactive Objective Labs 06/17/25 04:22 06/17/25 04:22 ABG Interpretation ABG results: 05/09/25 05/09/25 05/09/25 11:56 13:40 18:50 ABG pH 7.40 7.27 L D 7.28 L ABG pCO2 40 43 55 H D ABG pO2 131 H 53 L* D 70 L ABG HCO3 25 20 26 ABG O2 Saturation 99 H 81 L 92 ABG Base Excess 0 -7 L -2 VBG pH VBG pCO2 VBG pO2 VBG Base Excess 05/10/25 05/11/25 05/12/25 00:14 05:06 01:18 ABG pH 7.35 7.33 L 7.39 ABG pCO2 42 D 54 H D 48 ABG pO2 103 D 93 94 ABG HCO3 23 28 H 29 H ABG O2 Saturation 99 H 98 98 ABG Base Excess -3 2 3 VBG pH VBG pCO2 VBG pO2 VBG Base Excess 05/12/25 05/12/25 05/13/25 03:58 11:50 05:10 ABG pH 7.46 H 7.39 7.19 L* D ABG pCO2 41 48 60 H D ABG pO2 105 58 L* D 114 H D ABG HCO3 29 H 29 H 23 ABG O2 Saturation 99 H 90 L 98 ABG Base Excess 5 H 4 H -6 L VBG pH VBG pCO2 VBG pO2 VBG Base Excess 05/17/25 05/18/25 05/19/25 01:30 04:09 04:43 ABG pH 7.38 7.43 7.47 H ABG pCO2 46 44 43 ABG pO2 90 83 80 L ABG HCO3 27 H 29 H 31 H ABG O2 Saturation 98 97 97 ABG Base Excess 2 5 H 7 H VBG pH VBG pCO2 VBG pO2 VBG Base Excess 05/21/25 05/21/25 05/31/25 04:18 06:33 08:06 ABG pH 7.37 D 7.46 H ABG pCO2 50 H 38 D ABG pO2 40 L* D 121 H D ABG HCO3 29 H 27 H ABG O2 Saturation 66 L 100 H ABG Base Excess 3 3 VBG pH 7.55 VBG pCO2 31 L VBG pO2 144 H VBG Base Excess 5 H 06/05/25 06/05/25 06/06/25 13:37 23:46 05:20 ABG pH 7.47 H 7.45 ABG pCO2 35 38 ABG pO2 200 H 54 L* D ABG HCO3 25 26 ABG O2 Saturation 101 H 89 L ABG Base Excess 2 2 VBG pH 7.50 VBG pCO2 34 L VBG pO2 90 H VBG Base Excess 4 H 06/10/25 17:41 ABG pH ABG pCO2 ABG pO2 ABG HCO3 ABG O2 Saturation ABG Base Excess VBG pH 7.40 VBG pCO2 43 VBG pO2 43 VBG Base Excess 2 Quality Measures Quality Measures VTE prophylaxis (SCDs) and sepsis Current suspected stage: ruled out Possible source: pulmonary Blood cultures ordered: yes Antibiotic ordered: No Assessment & Plan Assessment Current Active Medications: Generic Name Dose Route Start Last Admin Trade Name Freq PRN Reason Stop Dose Admin Acetaminophen 325 mg 06/16/25 16:18 06/17/25 21:11 Acetaminophen Racquel 325 Mg/10 Ml Udc GT 07/09/25 16:12 325 mg Q4HR PRN Administration pain (1-3) or fever > 100.4 Clonazepam 0.5 mg 06/14/25 21:00 06/18/25 06:06 Clonazepam 0.5 Mg Tablet PO 06/19/25 20:59 Not Given QID KYA Deutetrabenazine 9 mg 06/14/25 08:00 06/18/25 08:13 Deutetrabenazine 6 Mg Tablet (Non-Formulary) GT 07/14/25 07:59 9 mg BIDWM KYA Administration Ferrous Sulfate 325 mg 06/01/25 09:00 06/17/25 08:18 Ferrous Sulfate 300 Mg/5 Ml Udc PO 07/01/25 08:59 325 mg QOD KYA Administration Heparin Sodium (Porcine) 5,000 unit 06/08/25 14:00 06/18/25 06:10 Heparin Sod Inj 5000 Unit/Ml Vial SC 06/22/25 13:59 5,000 unit Q8HR KYA Administration Hydromorphone HCl 0.5 mg 06/10/25 06:56 06/18/25 10:52 Hydromorphone Inj 2 Mg/Ml Vial IVP 06/19/25 06:55 0.5 mg Q4HR PRN Administration BREAKTHROUGH PAIN Protocol Ibuprofen 100 mg 06/15/25 15:47 06/17/25 13:33 Ibuprofen Susp 100 Mg/5 Ml Udc GT 07/15/25 15:46 100 mg Q6HR PRN Administration PAIN 1-3 OR FEVER > 101 Protocol Levetiracetam 500 mg 06/16/25 21:00 06/18/25 09:26 Levetiracetam Liqd 500 Mg/5 Ml Udc GT 07/16/25 20:59 500 mg BID KYA Administration Midazolam HCl 4 mg 06/17/25 19:04 06/18/25 11:52 Midazolam Inj 1 Mg/Ml Vial 2 Ml IVP 06/22/25 19:03 4 mg Q2H PRN Administration AGITATION OR ANXIETY Ondansetron HCl 4 mg 05/27/25 14:37 Ondansetron Odt 4 Mg Tabrap GT 06/26/25 14:36 Q6HR PRN NAUSEA OR VOMITING Protocol Oxycodone HCl 10 mg 06/12/25 11:47 06/18/25 06:06 Oxycodone Hcl 5 Mg Ir Tab GT 06/21/25 15:44 Not Given TID KYA Phenobarbital 129.6 mg 06/12/25 11:47 06/18/25 06:11 Phenobarbital 32.4 Mg Tablet GT 06/24/25 14:44 129.6 mg TID KYA Administration Propranolol HCl 5 mg 06/12/25 14:00 06/18/25 06:11 Propranolol 10 Mg Tablet GT 07/12/25 13:59 5 mg TID KYA Administration Sevelamer Carbonate 0.8 gm 06/18/25 21:00 Sevelamer Carbonate 0.8 Gm Packet (Non-Formulary) GT 07/18/25 20:59 BID KYA Sterile Water 10 ml 06/14/25 17:30 06/18/25 08:14 Water, Sterile Inj 50 Ml Vial GT 07/14/25 17:29 10 ml BIDWM KYA Administration Protocol Valproic Acid 500 mg 06/10/25 09:00 06/18/25 09:25 Valproic Acid Syrup 250 Mg/5 Ml Udc GT 07/10/25 08:59 500 mg BID KYA Administration Plan 25-year-old male with history of cerebral palsy, asthma, seizure disorder, chronic mastoiditis, recurrent pneumonia, and chronic PEG tube dependence presented on 05/08/2025 with fever and seizure, was admitted for sepsis workup, and later transferred to the ICU on 05/09/25 for increased agitation, tachypnea, and increased secretions with recurrent fevers. Was downgraded on 05/31/25 due to resolution of fever for at least 48 hours however was upgraded back on 06/05/25 due to increased work of breathing, ventilator asynchrony agitation and fever. Patient was downgraded on 06/12 due to stable condition on pressure support with improvement of agitation and lack of fever over 24 hours. ICU team was consulted for recurrent fevers of unknown origin. NEURO #Agitation Differential diagnosis: ICU acquired delirium, opiate withdrawal, delirium Diagnostic workup: - Patient was weaned off of sedation and was downgraded to telemetry, however as sedatives were down titrated and telemetry patient had episode of severe agitation and ventilator asynchrony and was upgraded to ICU for further intervention. - EEG 05/11 unremarkable. Repeat EEG 05/20 showed electrographic seizure activity. Continuous EEG 05/22-05/23: no seizure activity or status epilepticus. Repeat EEG 06/05 negative for seizure activity. - MRI brain 05/23: showed chronic infections, no acute pathology. - Cisatracurium gtt discontinued - Versed gtt discontinued Treatment: - Phenobarbital 129.6 mg three times daily - Back on Clonazepam 0.5 mg four times daily - Oxycodone 10 mg three times daily - Hold orders were added for respiratory rate <14, heart rate <70, or BP <100/60 for the above 3 meds Follow-up: - Use Versed 4 mg pushes every hour as needed #Tardive dyskinesia Diagnostic workup: - Nonpurposeful twisting movements of the patient's upper extremity with recurrent grimaces noted on 06/10 when the patient was taken off sedation - Patient's family notes that the patient has had a long history of nonpurposeful movement and has been previously prescribed deutetrabenazine for management by his neurologist - If deutetrabenazine remains ineffective, will increase to 12 mg twice daily after 1 week of starting the medication, may take up to 4-12 weeks to see maximal effect Treatment: - Hold home Seroquel 50 mg in the morning and 100 mg at night due to tardive dyskinesia - Deutetrabenazine 9 mg twice daily #Seizure disorder by history #Cerebral palsy by history Diagnostic workup: - Active seizure disorder ruled out, multiple EEGs negative for seizure activity Treatment: - Continue Depakote 250 mg GT every 8 hours and Keppra 750 mg GT twice daily, reach out to Neurology about possibly decreasing to discontinuing Depakote CARDIO #Sinus tachycardia Differential diagnosis: Infection, hypersympathetic activity Diagnostic workup: - Did have positive sputum and urine culture for Pseudomonas and ESBL respectively - Patient's last fever was 06/06/2025 04:36 - Echocardiogram was obtained to rule out any vegetations TTE shows normal systolic function, EF 55 to 60%, diastolic dysfunction grade 1, no evidence of vegetation or endocarditis Treatment: - Downtitrated propranolol 10 mg to 5 mg 3 times daily Follow-up: - Monitor for fever, use ibuprofen as needed for fever episode - Telemetry monitoring PULM #Mucus plugs, right upper lung and left lower lung Diagnostic workup: - Chest x-ray obtained 06/07 AM, showed a left lower lobe consolidation, ddx left lower lobe pneumonia versus mucous plug versus left pleural effusion versus mucous plug versus atelectasis lung ultrasound at bedside, effusion ruled out, no hepatization of the lung noted. Consent obtained from family for bronchoscopy. - Bedside bronchoscopy showed left lower lobe mucous plug, suction. Treatment: - Bedside bronchoscopy (06/07/2025) with clearance of mucous plug done successfully - Repeat chest x-ray obtained 06/17 in AM negative for acute findings Follow-up: - Once weaned off sedation and patient has cough reflex intact and more awake/alert, consider chest physiotherapy. #Mechanical ventilation #Chronic respiratory failure status post tracheostomy 05/26 Currently on PS Diagnostic workup: - Patient failed extubation during the hospitalization on 05/12, was reintubated overnight 05/13. - Unable to wean patient off ventilator, tracheostomy performed 05/26/2025, sutures removed 06/06/2025 - Patient underwent bronchoscopies 05/14, 05/17 and 06/05 for increased secretions - Currently on PS, will keep PS overnight Treatment: - Monitor SpO2, goal greater than 92 - Continue mechanical ventilation on PS Follow-up: - Continue to down titrate pressure on PS as tolerated until 5 mmHg, then transition to Blow-by if patient tolerates low pressure PS ventilation #Asthma by history Diagnostic workup: - Patient has history of asthma on montelukast, albuterol as needed at home Treatment: - Currently on mechanical ventilation GI #Chronic PEG tube dependence Differential diagnosis: Chronic dysphagia likely in setting of cerebral palsy Diagnostic workup: - Patient was previously on Jevity 1.5, switched to Nepro due to hyperphosphatemia. Treatment: - Nepro trickle feeds, advance as tolerated Follow-up: - Goal tube feeds as tolerated NEPHRO #Elevated alkaline phosphatase, improving #Low PTH #Abnormal nuclear medicine bone scan Differential diagnosis: increased osteoblastic activity in setting of vegetative state, bone infection (particularly of left mastoid), hypoparathyroidism, osteoarthritis Diagnostic workup: - PTH intact low at 3.6, calcium 9.9, vitamin D 25-OH 18.1 - Renal function intact, at baseline - Nuclear medicine bone scan shows minor asymmetric uptake left knee and mild increased uptake mid left tibia - Knee x-ray 06/06 and tibia-fibula x-ray 06/06 showed no findings diagnostic for osseous metastatic disease - MRI left leg 06/08 images severely degraded by continuous patient motion - No pain to palpation of bilateral lower extremities Treatment: - Continue sevelamer 800 mg 3 times daily - Patient to follow up on abnormal imaging outpatient URO #Phimosis s/p dorsal slit procedure 06/08/2025 #Paraphimosis (resolved) #Balanitis (resolved) Diagnostic workup: - Edema and tenderness of the glans penis, Swelling of the distal retracted foreskin, Constricting band of tissue proximal to the head of the penis at the coronal sulcus on presentation, s/p reduction of the paraphimosis by urologist Dr. Vargas on 05/09. - Patient has somewhat retractable foreskin, has good urine output, no swelling noted, has external catheter draining well - Urologist Dr. Vargas performed dorsal slit procedure on 06/08 Treatment: - Dilaudid 0.5 mg IVP every 4 hours as needed for breakthrough pain Follow-up: - Continue to monitor for worsening swelling, bleeding, or blockage of urine HEME #Acute nonocclusive thrombus in the left brachial vein Diagnostic workup: - Venous doppler study of upper extremities 05/16: Normal right upper extremity deep venous system. Positive for nonocclusive thrombus in the left brachial vein. - Per chart review and patient's parents, patient does not have history of clots. - Given patient's inability to safely engage and risk of continued trauma to buccal mucosa by biting will not do full dose anticoagulation given increased risk of bleeding Treatment: - Heparin loading dose and ggt. Lovenox to heparin due to heparin?s shorter half-life, which allows for more rapid cessation in the event of bleeding, a shorter half life and can be stopped if bleeding occurs. - Stopped heparin ggt due to hematuria on 05/18. - Restarted Lovenox 05/31 for tx of primary upper extremity deep vein thrombosis, anticoagulation should be continued for a minimum of three months following the initial thrombotic event, but given patient is high risk to buccal mucosa trauma will not pursue therapeutic dose as high risk of bleeding. Transitioned to heparin SC every 8 hours. Follow-up: - Heparin SC every 8 hours for DVT prophylaxis #Normocytic Anemia Differential diagnosis: Anemia of chronic disease, nutritional anemia, iatrogenic Diagnostic workup: - Likely multifactorial, currently not an active concern Treatment: - Monitor CBC, transfuse if hemoglobin less than 7 ENDO #No active problems Integumentary #Tongue Laceration, traumatic #Gingivial Bleeding, Oral Trauma Diagnostic workup: -Known to have episodes of jaw spasms and teeth clenching with agitation. Had significant trauma to gums and tongue due to clenching of teeth 06/06 - No further bleeding appreciated in oral mucosa Treatment: - Patient required cisatracurium to relax jaw, pressure was applied locally, oral packing none, injections of lido?epinephrine x 3 to gums on 06/06 night Follow-up: - Monitor for bleeding ID #Fever of unknown origin Differential diagnosis: More likely medication side effect, less likely infectious cause Diagnostic workup: - Repeat chest x-ray obtained 06/17 in AM negative for acute findings Treatment: - CT chest/abdomen/pelvis ordered to identify any occult causes for fever of unknown origin, pending - Recommend discontinuation of Zosyn as the fever of unkown origin is less likely to be infectious cause - Recommend weaning off of extensive medication list as tolerated - ID has been consulted, who notes that recurrent fevers are more likely medication related and unlikely infection related, recommended cessation of antibiotics Follow-up: - Deutetrabenazine has not been shown to cause fevers, however due to the MOA of deutetrabenazine, it can increase serotonin levels, which could be contributing to the patients fevers of unknown origin, would be risk vs benefit as the deutetrabenazine does improve tardive dyskinesia #Bilateral chronic mastoiditis #Sinusitis #Bilateral otitis media #Bilateral otitis externa #Brittney parapsilosis #UTI, E.coli, ESBL #Pseudomonas aeruginosa, sputum positive ? -History of chronic mastoiditis. -Met SIRS criteria on admission: T 105F, HR 176, RR 26, PaCO2 26, WBC 16.3. -Head CT (05/08/2025): prominent sphenoid ethmoid maxillary antral sinusitis, bilateral chronic mastoiditis, bilateral otitis media. -CT Orbit Sella Inner (05/08/2025): severe bilateral chronic mastoiditis, bilateral otitis externa and otitis media, bilateral cholesteatomas in the attics. -CXR (05/09/2025): Bilateral Perihilar Pneumonia. CXR (05/13/2025): Extensive Bilateral Pneumonia, CXR(05/19/2025): Significant bilateral Pneumonia -CT Chest/abd/pelvis (05/16/2025): Extensive bilateral pneumonia, Cystitis pattern, Cholelithiasis -A repeat Cocci serology test was negative -Lumbar puncture(05/10/2025): clear, WBC 3, glucose 70, total protein 25. CSF testing negative. -Respiratory viral panel (05/10/2025): rhinovirus/enterovirus and human metapneumovirus detected. -UA 05/08 and 05/16 negative. [Culture Hx] -1st Blood Cx (05/08): No growth for 5 days. 2nd Blood Cx (05/11): No growth for 5 days, 3rd Blood Cx (05/16): No growth for 5 days, 4th Blood Cx (06/01): No growth for 48hrs -1st Sputum Cx (05/09): Pseudomonas aeruginosa (only sensitive to Meropenem, Tobramycin). 2nd Sputum Cx (05/13): Mixed oral hamilton. 3rd Sputum Cx (05/19): Mixed oral hamilton, 4th Sputum Cx (05/20): Brittney albicans, 5th Sputum Cx (06/01): GNR -CSF Cx (05/10): No growth for 3 days -Left Ear Cx (05/12): Brittney parapsilosis -Right Ear Cx(05/12): E.coli, ESBL (only sensitive to Ertapenem, Meropenem, Zosyn) -Urine Cx (06/01): E.coli, ESBL (only sensitive to Ertapenem, Meropenem, Nitrofurantoin, Zosyn) -Sputum culture 06/05 shows sensitive to Zosyn and intermittent resistance to cefepime [Antibiotics/Antifungal Hx] IV Zosyn 3.375g x1 (at 05/08) IV Ceftriaxone 1g x1 (at 05/08) IV Acyclovir 640mg q8hr (05/08-05/11) since LP negative. IV Ceftriaxone 2g q12hr (05/08-05/11) IV Vancomycin qd (05/08-05/11) since MRSA screen is negative Ofloxacin Opt racquel 0.3% 5 drops Both ears bid (05/09-05/18, 05/21-05/31) IV Meropenem 1000mg q8hr (05/12-05/22, 05/24-05/25) IV Doxycycline (05/16-05/18) IV Micafungin 100mg qd (05/28-05/30, 06/01-06/03) Ciprofloxacin Op Racquel 0.3% ear drops (06/02-06/03) -CXR is showing pneumonia, but CXR often remain abnormal for days to weeks. The infiltrate or consolidation can persist even though the infection has cleared. The radiographic improvement can take up to 4-6 weeks.? Patient is on minimal ventilator setting, oxygen requirement is stable, and has completed antibiotics course. -UTI unlikely sources of infection given low number of colonies and long antibiotics treatment in ICU. -Per ENT, Dr. Ojeda, patient does not have acute coalescent mastoiditis in either ear. Left and right middle ear is also not filled with effusion. -Chest x-ray 06/07 AM, showed a left lower lobe consolidation, ddx left lower lobe pneumonia versus mucous plug versus left pleural effusion versus mucous plug versus atelectasis lung ultrasound at bedside, effusion ruled out, no hepatization of the lung noted. Bedside bronchoscopy showed left lower lobe mucous plug, cleared with deep suction Treatment: - Recommend discontinuation of antibiotics at this time Previous treatments: IV Zosyn 4.5 g q8hr (06/05 - 06/16) IV Zosyn 3.375g x1 (at 05/08) IV Ceftriaxone 1g x1 (at 05/08) IV Acyclovir 640mg q8hr (05/08-05/11) IV Ceftriaxone 2g q12hr (05/08-05/11) IV Vancomycin qd (05/08-05/11) since MRSA screen is negative IV Meropenem 1000mg q8hr (05/12-05/22, 05/24-05/25) IV Doxycycline (05/16-05/18) IV Micafungin 100mg qd (05/28-05/30, 06/01-06/03) IV fluconazole 06/05-06/07 Follow-up: - Once weaned off sedation and patient has cough reflex intact and more awake/alert, will consider chest physiotherapy. MSK #No active problems SKIN #No active problems Disposition: Tele, plan for LTAC placement once medically cleared Diet: Nepro 1.8 Christ 1L RTH and Pro Stat Sugar Free 30 ml GI prophylaxis: Lansoprazole 30mg GT qd DVT prophylaxis: SCDs, [id number] SC BID due to bleeding CODE STATUS: Full code Patient plan of care was discussed with the attending instructional interventionist, Dr. Siu and senior resident Dr. Alvarez (PGY-2) Alejandro Maravilla, PGY-1 Attending Provider Attestation/Addendum Patient seen and examined, discussed with resident. In brief is a 25-year-old male who has been in the hospital for over a month. He has a new trach patient. He has a history of CP with cognitive delay. He is agitated and restless. The ICU was asked to consult by the primary team for fever of unknown origin. Suggestions were made to reduce the amount of medications being received as of this moment in time it is felt that he probably has a drug-related fever. CT chest abdomen pelvis with contrast to evaluate for any underlying source of infection was also performed to rule out infectious etiology. It is felt to be less likely the cause of his fever given his normal white count and no localizing source. The patient is highly agitated during the day and is at risk for pulling out his PEG tube or his trach. Discussed with primary team that if there is no resolution of the patient's fever will take him back to the ICU tomorrow to start him on a Precedex drip and give him a drug holiday. Case discussed with ICU team and primary team Labs, imaging records reviewed Approximately 20 minutes required evaluation, exam, review, intervention formation of POC
[2025-06-18] MEDS: oxyCODONE HCL 5 MG IR TAB 10 MG GT ×2 (13:42→21:17)
--- NOTE | 2025-06-18 14:26 | PC.SS ---
Rounding: Still having fevers, DC plan LTAC
[2025-06-18] MEDS: IBUPROFEN SUSP 100 MG/5 ML UDC GT (16:17)
[2025-06-18] MEDS: ACETAMINOPHEN SOL 325 MG/10 ML UDC GT (21:17)
--- NOTE | 2025-06-18 22:15 | PD.NEUROPROG ---
Documentation for date of: 06/18/25 Subjective Subjective Interval history: Patient is in telemetry, continues to remain on ventilatory support status post tracheostomy. intermittently gets restless despite being on fentanyl and versed as needed and bid of clonazepam. No clinical seizures reported Exam - Neurology Vital Signs Temp Pulse Resp BP Pulse Ox O2 Del Method O2 Flow Rate 100.9 F H 147 H 19 145/95 H 99 Mechanical Ventilation 35 06/18/25 21:17 06/18/25 21:18 06/18/25 20:00 06/18/25 21:18 06/18/25 20:00 06/18/25 20:00 06/18/25 16:00 FiO2 25 06/18/25 19:37 Narrative Exam GENERAL APPEARANCE: Developmentally delayed male , trached and on mechanical ventilatory support HEENT: Normocephalic, atraumatic, Pupils: Equal reacting to light NECK: Supple, no JVD or bruits. CARDIOVASULAR: Heart: S1, S2 heard, regular without S3-S4 or murmur no rubs or gallops. LUNGS/CHEST: Breath sounds heard equally bilaterally, bilateral Rales and rhonchi heard. ABDOMEN: Soft, nontender, with normal bowel sounds. No pulsatile masses. No rebound, rigidity, or guarding. Normal inspection and palpation. EXTREMITIES: Normal inspection and palpation. No edema, clubbing or cyanosis. SKIN: Warm and dry without rashes. Normal inspection. NEURO: remains unresponsive, brainstem function: Intact. PSYCHIATRIC: Limited Objective Labs 06/17/25 04:22 06/17/25 04:22 ABG Interpretation ABG results: 05/09/25 05/09/25 05/09/25 11:56 13:40 18:50 ABG pH 7.40 7.27 L D 7.28 L ABG pCO2 40 43 55 H D ABG pO2 131 H 53 L* D 70 L ABG HCO3 25 20 26 ABG O2 Saturation 99 H 81 L 92 ABG Base Excess 0 -7 L -2 VBG pH VBG pCO2 VBG pO2 VBG Base Excess 05/10/25 05/11/25 05/12/25 00:14 05:06 01:18 ABG pH 7.35 7.33 L 7.39 ABG pCO2 42 D 54 H D 48 ABG pO2 103 D 93 94 ABG HCO3 23 28 H 29 H ABG O2 Saturation 99 H 98 98 ABG Base Excess -3 2 3 VBG pH VBG pCO2 VBG pO2 VBG Base Excess 05/12/25 05/12/25 05/13/25 03:58 11:50 05:10 ABG pH 7.46 H 7.39 7.19 L* D ABG pCO2 41 48 60 H D ABG pO2 105 58 L* D 114 H D ABG HCO3 29 H 29 H 23 ABG O2 Saturation 99 H 90 L 98 ABG Base Excess 5 H 4 H -6 L VBG pH VBG pCO2 VBG pO2 VBG Base Excess 05/17/25 05/18/25 05/19/25 01:30 04:09 04:43 ABG pH 7.38 7.43 7.47 H ABG pCO2 46 44 43 ABG pO2 90 83 80 L ABG HCO3 27 H 29 H 31 H ABG O2 Saturation 98 97 97 ABG Base Excess 2 5 H 7 H VBG pH VBG pCO2 VBG pO2 VBG Base Excess 05/21/25 05/21/25 05/31/25 04:18 06:33 08:06 ABG pH 7.37 D 7.46 H ABG pCO2 50 H 38 D ABG pO2 40 L* D 121 H D ABG HCO3 29 H 27 H ABG O2 Saturation 66 L 100 H ABG Base Excess 3 3 VBG pH 7.55 VBG pCO2 31 L VBG pO2 144 H VBG Base Excess 5 H 06/05/25 06/05/25 06/06/25 13:37 23:46 05:20 ABG pH 7.47 H 7.45 ABG pCO2 35 38 ABG pO2 200 H 54 L* D ABG HCO3 25 26 ABG O2 Saturation 101 H 89 L ABG Base Excess 2 2 VBG pH 7.50 VBG pCO2 34 L VBG pO2 90 H VBG Base Excess 4 H 06/10/25 17:41 ABG pH ABG pCO2 ABG pO2 ABG HCO3 ABG O2 Saturation ABG Base Excess VBG pH 7.40 VBG pCO2 43 VBG pO2 43 VBG Base Excess 2 Assessment & Plan Assessment and plan (1) Seizure disorder: Status: Acute (2) Cerebral palsy: Qualifiers: Cerebral palsy type: unspecified type Qualified Code(s): G80.9 - Cerebral palsy, unspecified Status: Chronic (3) Fever: Status: Acute (4) Chronic mastoiditis, bilateral: Status: Acute (5) Acute otitis externa: Status: Acute (6) Chronic right maxillary sinusitis: Status: Acute (7) Chronic ethmoidal sinusitis: Status: Acute Additional Assessment & Plan Additional Plan: David Baltazar is 24 yr male with PMH of chronic mastoiditis (previously had tympanostomy tube placed for recurrent otitis media, now removed), seizure disorder, recurrent pneumonia, cerebral palsy, chronic PEG tube, and asthma who was brought into ED on 05/08/25 for ongoing fever of over 24 hours and reported episode of witnessed seizure by ED. Patient was treated for sepsis.Neurology was consulted. #Chronic pansinusitis #ruled out Meningitis #Tonic clonic seizure #Cerebral palsy -continue Keppra -Consider discontinuing phenobarbital -seizure precautions -midazolam for breakthrough seizure as needed MRI brain: chronic pansinusitis. Okay to hold Depakote for now. CSF analysis x2 : unremarkable. #Paraphimosis: Resolved, Osborne draining clear urine #Normocytic Anemia #Respiratory failure: s/p tracheostomy and on vent support Primary care team to manage above conditions and ongoing care needs.
[2025-06-19] VITALS (32 sets, daily range): BP systolic 93–172; BP diastolic 52–140; PULSE 73–152; RESP 17–39; TEMP 36.9–38.5; O2SAT 96–100; BMI 28.3; BMI 26.0
--- NOTE | 2025-06-19 00:42 | PC.NURSE ---
DR LUCIO MADE AWARE OF BP OF 141/108. PT CONTINUES TO BE RESTLESS POST VERSED. NEW ORDERS GIVEN.
[2025-06-19] MEDS: MIDAZOLAM INJ 1 MG/ML VIAL 2 ML 2 MG IVP (00:48)
[2025-06-19] MEDS: ACETAMINOPHEN SOL 325 MG/10 ML UDC GT ×2 (01:48→08:27)
[2025-06-19] MEDS: HYDROmorphone INJ 2 MG/ML VIAL 0.5 MG IVP (01:49)
[2025-06-19] MEDS: MIDAZOLAM INJ 1 MG/ML VIAL 2 ML 4 MG IVP ×2 (02:54→05:04)
[2025-06-19 03:24] LABS: Phosphorous 4.2 mg/dL (2.4-5.1)
[2025-06-19] MEDS: HEPARIN SOD INJ 5000 UNIT/ML VIAL SC ×2 (05:05→21:04)
[2025-06-19] MEDS: PROPRANOLOL 10 MG TABLET 5 MG GT (05:05)
[2025-06-19] MEDS: oxyCODONE HCL 5 MG IR TAB 10 MG GT (05:05)
--- NOTE | 2025-06-19 07:21 | ESPR_ITS ---
<Statement entered by Kamlesh Baer MD - 06/20/25 14:33> Patient seen and examined at bedside. I discussed and supervised with the applications intern physician who took care of this patient. I personally saw and examined the patient. I agree with most of the assessment and plan. Plan of care discussed with attending Dr. Ennis. Kamlesh Baer MD PGY-2 Documentation for date of: 06/19/25 Subjective Subjective Interval history: Overnight patient received Versed 4mg x 8, Dilaudid 0.5mg x 4. ?Valproic acid continued to be held. Patient continues to be agitated and requiring extra Versed and Dilaudid despite being on scheduled sedatives and analgesia. Spoke to ICU. Plan to re-upgrade to ICU to start on drip and wean off of all other sedatives. See ICU note for further plan. Exam Vital Signs Temp Pulse Resp BP Pulse Ox O2 Del Method O2 Flow Rate 100.7 F H 119 H 28 H 127/76 99 Mechanical Ventilation 35 06/19/25 04:00 06/19/25 05:05 06/19/25 04:00 06/19/25 05:05 06/19/25 04:00 06/19/25 04:00 06/18/25 16:00 FiO2 25 06/19/25 04:00 Narrative Exam General: Trach and PEG tube in place. AAOx0, Non-verbal at baseline. Calm, sleeping. Eye: Normal conjunctiva, no scleral icterus Neck: Supple, non-tender, no JVD, no lymphadenopathy Lungs: Crackle breath sounds, symmetric chest rise, No wheezing, rhonchi Heart: Peripheral pulses intact bilaterally, Tachycardic Abdomen: Soft, non-tender, non-distended, no palpable masses Musculoskeletal: No cyanosis, No visible joint swelling, +1 Bilaterally upper extremities edema Skin: Skin is warm, dry, no rashes or lesions. Neuro: Cranial nerves II-XII grossly intact. Objective Labs 06/20/25 04:48 06/20/25 04:48 Labs: Laboratory Results - last 24 hr 06/19/25 02:48 Phosphorus 4.2 ABG Interpretation ABG results: 10/13/25 10/13/25 10/13/25 11:56 13:40 18:50 ABG pH 7.40 7.27 L D 7.28 L ABG pCO2 40 43 55 H D ABG pO2 131 H 53 L* D 70 L ABG HCO3 25 20 26 ABG O2 Saturation 99 H 81 L 92 ABG Base Excess 0 -7 L -2 VBG pH VBG pCO2 VBG pO2 VBG Base Excess 05/10/25 05/11/25 05/12/25 00:14 05:06 01:18 ABG pH 7.35 7.33 L 7.39 ABG pCO2 42 D 54 H D 48 ABG pO2 103 D 93 94 ABG HCO3 23 28 H 29 H ABG O2 Saturation 99 H 98 98 ABG Base Excess -3 2 3 VBG pH VBG pCO2 VBG pO2 VBG Base Excess 05/12/25 05/12/25 05/13/25 03:58 11:50 05:10 ABG pH 7.46 H 7.39 7.19 L* D ABG pCO2 41 48 60 H D ABG pO2 105 58 L* D 114 H D ABG HCO3 29 H 29 H 23 ABG O2 Saturation 99 H 90 L 98 ABG Base Excess 5 H 4 H -6 L VBG pH VBG pCO2 VBG pO2 VBG Base Excess 05/17/25 05/18/25 05/19/25 01:30 04:09 04:43 ABG pH 7.38 7.43 7.47 H ABG pCO2 46 44 43 ABG pO2 90 83 80 L ABG HCO3 27 H 29 H 31 H ABG O2 Saturation 98 97 97 ABG Base Excess 2 5 H 7 H VBG pH VBG pCO2 VBG pO2 VBG Base Excess 05/21/25 05/21/25 05/31/25 04:18 06:33 08:06 ABG pH 7.37 D 7.46 H ABG pCO2 50 H 38 D ABG pO2 40 L* D 121 H D ABG HCO3 29 H 27 H ABG O2 Saturation 66 L 100 H ABG Base Excess 3 3 VBG pH 7.55 VBG pCO2 31 L VBG pO2 144 H VBG Base Excess 5 H 06/05/25 06/05/25 06/06/25 13:37 23:46 05:20 ABG pH 7.47 H 7.45 ABG pCO2 35 38 ABG pO2 200 H 54 L* D ABG HCO3 25 26 ABG O2 Saturation 101 H 89 L ABG Base Excess 2 2 VBG pH 7.50 VBG pCO2 34 L VBG pO2 90 H VBG Base Excess 4 H 06/10/25 17:41 ABG pH ABG pCO2 ABG pO2 ABG HCO3 ABG O2 Saturation ABG Base Excess VBG pH 7.40 VBG pCO2 43 VBG pO2 43 VBG Base Excess 2 Quality Measures Quality Measures VTE prophylaxis (SCDs) and sepsis Current suspected stage: sepsis (resolved) Possible source: pulmonary Blood cultures ordered: yes Antibiotic ordered: Yes Assessment & Plan Assessment Current Active Medications: Generic Name Dose Route Start Last Admin Trade Name Freq PRN Reason Stop Dose Admin Acetaminophen 325 mg 06/16/25 16:18 06/19/25 01:48 Acetaminophen Racquel 325 Mg/10 Ml Udc GT 07/09/25 16:12 325 mg Q4HR PRN Administration pain (1-3) or fever > 100.4 Clonazepam 0.5 mg 06/14/25 21:00 06/19/25 05:05 Clonazepam 0.5 Mg Tablet PO 06/19/25 20:59 0.5 mg QID KYA Administration Deutetrabenazine 9 mg 06/14/25 08:00 06/18/25 18:03 Deutetrabenazine 6 Mg Tablet (Non-Formulary) GT 07/14/25 07:59 9 mg BIDWM KYA Administration Ferrous Sulfate 325 mg 06/01/25 09:00 06/17/25 08:18 Ferrous Sulfate 300 Mg/5 Ml Udc PO 07/01/25 08:59 325 mg QOD KYA Administration Heparin Sodium (Porcine) 5,000 unit 06/08/25 14:00 06/19/25 05:05 Heparin Sod Inj 5000 Unit/Ml Vial SC 06/22/25 13:59 5,000 unit Q8HR KYA Administration Ibuprofen 100 mg 06/15/25 15:47 06/18/25 16:17 Ibuprofen Susp 100 Mg/5 Ml Udc GT 07/15/25 15:46 100 mg Q6HR PRN Administration PAIN 1-3 OR FEVER > 101 Protocol Levetiracetam 500 mg 06/16/25 21:00 06/18/25 21:17 Levetiracetam Liqd 500 Mg/5 Ml Udc GT 07/16/25 20:59 500 mg BID KYA Administration Midazolam HCl 4 mg 06/19/25 07:10 Midazolam Inj 1 Mg/Ml Vial 2 Ml IVP 06/22/25 19:03 Q4H PRN AGITATION OR ANXIETY Ondansetron HCl 4 mg 05/27/25 14:37 Ondansetron Odt 4 Mg Tabrap GT 06/26/25 14:36 Q6HR PRN NAUSEA OR VOMITING Protocol Oxycodone HCl 10 mg 06/12/25 11:47 06/19/25 05:05 Oxycodone Hcl 5 Mg Ir Tab GT 06/21/25 15:44 10 mg TID KYA Administration Phenobarbital 129.6 mg 06/12/25 11:47 06/19/25 05:05 Phenobarbital 32.4 Mg Tablet GT 06/24/25 14:44 129.6 mg TID KYA Administration Propranolol HCl 5 mg 06/12/25 14:00 06/19/25 05:05 Propranolol 10 Mg Tablet GT 07/12/25 13:59 5 mg TID KYA Administration Sevelamer Carbonate 0.8 gm 06/18/25 21:00 06/18/25 21:17 Sevelamer Carbonate 0.8 Gm Packet (Non-Formulary) GT 07/18/25 20:59 0.8 gm BID KYA Administration Sterile Water 10 ml 06/14/25 17:30 06/18/25 18:03 Water, Sterile Inj 50 Ml Vial GT 07/14/25 17:29 10 ml BIDWM KYA Administration Protocol Valproic Acid 500 mg 06/10/25 09:00 06/18/25 09:25 Valproic Acid Syrup 250 Mg/5 Ml Udc GT 07/10/25 08:59 500 mg On Hold: 06/18/25 13:18 BID KYA Administration Plan 24-year-old male with cerebral palsy, asthma, seizure disorder, chronic mastoiditis, recurrent pneumonia, and chronic PEG tube dependence presented with fever and seizure, was admitted for sepsis workup, and later transferred to the ICU for intubation due to concerns about airway protection. Patient has been downgraded from ICU to tele on 05/31/2025; however, re-upgraded to ICU on 06/05 due to tachycardia in 160s, tachypnea, persistent fever, and ventilator asynchrony. #Agitation Differential diagnosis: ICU acquired delirium, opiate withdrawal, delirium Diagnostic workup: - Patient was weaned off of sedation and was downgraded to telemetry, however as sedatives were down titrated and telemetry patient had episode of severe agitation and ventilator asynchrony and was upgraded to ICU for further intervention. - EEG 05/11 unremarkable. Repeat EEG 05/20 showed electrographic seizure activity. Continuous EEG 05/22-05/23: no seizure activity or status epilepticus. Repeat EEG 06/05 negative for seizure activity. - MRI brain 05/23: showed chronic infections, no acute pathology. - Cisatracurium gtt discontinued - Versed gtt discontinued Treatment: - Phenobarbital 129.6 mg three times daily - Continue Clonazepam 0.5 mg four times daily - Oxycodone 10 mg three times daily - Hold orders were added for respiratory rate <14, heart rate <70, or BP <100/60 for the above 3 meds Follow-up: - Use Versed 4 mg pushes every hour as needed #Tardive dyskinesia Diagnostic workup: - Nonpurposeful twisting movements of the patient's upper extremity with recurrent grimaces noted on 06/10 when the patient was taken off sedation - Patient's family notes that the patient has had a long history of nonpurposeful movement and has been previously prescribed deutetrabenazine for management by his neurologist - Per ICU, if deutetrabenazine remains ineffective, will increase to 12 mg twice daily after 1 week of starting the medication, may take up to 4 weeks to see maximal effect Treatment: - Discontinued home Seroquel 50 mg in the morning and 100 mg at night due to tardive dyskinesia - Deutetrabenazine 9 mg twice daily #Sepsis #Bilateral chronic mastoiditis #Sinusitis #Bilateral otitis media #Bilateral otitis externa #Brittney parapsilosis #Community Acquired Pneumonia #UTI, E.coli, ESBL #Pseudomonas aeruginosa, sputum positive #Mucus plugs, right upper lung and left lower lung ? -History of chronic mastoiditis. -Met SIRS criteria on admission: T 105F, HR 176, RR 26, PaCO2 26, WBC 16.3. -Head CT (05/08/2025): prominent sphenoid ethmoid maxillary antral sinusitis, bilateral chronic mastoiditis, bilateral otitis media. -CT Orbit Sella Inner (05/08/2025): severe bilateral chronic mastoiditis, bilateral otitis externa and otitis media, bilateral cholesteatomas in the attics. -CXR (05/09/2025): Bilateral Perihilar Pneumonia. CXR (05/13/2025): Extensive Bilateral Pneumonia, CXR(05/19/2025): Significant bilateral Pneumonia -CT Chest/abd/pelvis (05/16/2025): Extensive bilateral pneumonia, Cystitis pattern, Cholelithiasis -A repeat Cocci serology test was negative -Lumbar puncture(05/10/2025): clear, WBC 3, glucose 70, total protein 25. CSF testing negative. -Respiratory viral panel (05/10/2025): rhinovirus/enterovirus and human metapneumovirus detected. -UA 05/08 and 05/16 negative. -06/17 Chest x-ray negative. CTAP negative [Culture Hx] -1st Blood Cx (05/08): No growth for 5 days. 2nd Blood Cx (05/11): No growth for 5 days, 3rd Blood Cx (05/16): No growth for 5 days, 4th Blood Cx (06/01): No growth for 48hrs -1st Sputum Cx (05/09): Pseudomonas aeruginosa (only sensitive to Meropenem, Tobramycin). 2nd Sputum Cx (05/13): Mixed oral hamilton. 3rd Sputum Cx (05/19): Mixed oral hamilton, 4th Sputum Cx (05/20): Brittney albicans, 5th Sputum Cx (06/01): GNR -CSF Cx (05/10): No growth for 3 days -Left Ear Cx (05/12): Brittney parapsilosis -Right Ear Cx(05/12): E.coli, ESBL (only sensitive to Ertapenem, Meropenem, Zosyn) -Urine Cx (06/01): E.coli, ESBL (only sensitive to Ertapenem, Meropenem, Nitrofurantoin, Zosyn) -Sputum culture 06/05 shows sensitive to Zosyn and intermittent resistance to cefepime [Antibiotics/Antifungal Hx] IV Zosyn 3.375g x1 (at 05/08) IV Ceftriaxone 1g x1 (at 05/08) IV Acyclovir 640mg q8hr (05/08-05/11) since LP negative. IV Ceftriaxone 2g q12hr (05/08-05/11) IV Vancomycin qd (05/08-05/11) since MRSA screen is negative Ofloxacin Opt racquel 0.3% 5 drops Both ears bid (05/09-05/18, 05/21-05/31) IV Meropenem 1000mg q8hr (05/12-05/22, 05/24-05/25) IV Doxycycline (05/16-05/18) IV Micafungin 100mg qd (05/28-05/30, 06/01-06/03) Ciprofloxacin Op Racquel 0.3% ear drops (06/02-06/03) -CXR is showing pneumonia, but CXR often remain abnormal for days to weeks. The infiltrate or consolidation can persist even though the infection has cleared. The radiographic improvement can take up to 4-6 weeks.? Patient is on minimal ventilator setting, oxygen requirement is stable, and has completed antibiotics course. -UTI unlikely sources of infection given low number of colonies and long antibiotics treatment in ICU. -Per ENT, [place], patient does not have acute coalescent mastoiditis in either ear. Left and right middle ear is also not filled with effusion. -Chest x-ray 06/07 AM, showed a left lower lobe consolidation, ddx left lower lobe pneumonia versus mucous plug versus left pleural effusion versus mucous plug versus atelectasis lung ultrasound at bedside, effusion ruled out, no hepatization of the lung noted. Bedside bronchoscopy showed left lower lobe mucous plug, cleared with deep suction Plan: IV Zosyn 06/05-06/18 for 14-day course coverage of Pseudomonas IV Zosyn 3.375g x1 (at 05/08) IV Ceftriaxone 1g x1 (at 05/08) IV Acyclovir 640mg q8hr (05/08-05/11) IV Ceftriaxone 2g q12hr (05/08-05/11) IV Vancomycin qd (05/08-05/11) since MRSA screen is negative IV Meropenem 1000mg q8hr (05/12-05/22, 05/24-05/25) IV Doxycycline (05/16-05/18) IV Micafungin 100mg qd (05/28-05/30, 06/01-06/03) IV fluconazole 06/05-06/07 Follow-up: - Once weaned off sedation and patient has cough reflex intact and more awake/alert, will consider chest physiotherapy. #Phimosis s/p dorsal slit procedure 06/08/2025 #Paraphimosis (resolved) #Balanitis (resolved) Diagnostic workup: - Edema and tenderness of the glans penis, Swelling of the distal retracted foreskin, Constricting band of tissue proximal to the head of the penis at the coronal sulcus on presentation, s/p reduction of the paraphimosis by urologist Dr. Vargas on 05/09 and phimosis dorsal slit on 06/08 Treatment: - Dilaudid 0.5 mg IVP every 4 hours as needed for breakthrough pain - Monitor for worsening swelling, bleeding, or blockage of urine #Seizure disorder by history #Cerebral palsy by history Diagnostic workup: - Active seizure disorder ruled out, multiple EEGs negative for seizure activity Treatment: - Hold Depakote 250 mg GT every 8 hours and Continue Keppra 500 mg GT twice daily #Sinus tachycardia Differential diagnosis: Infection, hypersympathetic activity Diagnostic workup: - Did have positive sputum and urine culture for Pseudomonas and ESBL respectively - Patient's last fever was 06/12/2025 05:46 - Echocardiogram was obtained to rule out any vegetations TTE shows normal systolic function, EF 55 to 60%, diastolic dysfunction grade 1, no evidence of vegetation or endocarditis Treatment: - Downtitrated propranolol 10 mg to 5 mg 3 times daily - Continue antibiotics - Monitor for fever, use ibuprofen as needed for fever episode - Telemetry monitoring - Plan to titrate off propranolol #Elevated alkaline phosphatase, improving #Low PTH #Abnormal nuclear medicine bone scan Differential diagnosis: increased osteoblastic activity in setting of vegetative state, bone infection (particularly of left mastoid), hypoparathyroidism, osteoarthritis Diagnostic workup: - PTH intact low at 3.6, calcium 9.9, vitamin D 25-OH 18.1 - Renal function intact, at baseline - Nuclear medicine bone scan shows minor asymmetric uptake left knee and mild increased uptake mid left tibia - Knee x-ray 06/06 and tibia-fibula x-ray 06/06 showed no findings diagnostic for osseous metastatic disease - MRI left leg 06/08 images severely degraded by continuous patient motion - No pain to palpation of bilateral lower extremities Treatment: - Continue sevelamer 800 mg 2 times daily - Patient to follow up on abnormal imaging outpatient #Tongue Laceration, traumatic #Gingivial Bleeding, Oral Trauma Diagnostic workup: -Known to have episodes of jaw spasms and teeth clenching with agitation. Had significant trauma to gums and tongue due to clenching of teeth 06/06 - No further bleeding appreciated in oral mucosa Treatment: - Patient required cisatracurium to relax jaw, pressure was applied locally, oral packing none, injections of lido?epinephrine x 3 to gums on 06/06 night Follow-up: - Monitor for bleeding #Bronchospasm #History of asthma -Magnesium for bronchodilator effect as needed. -Albuterol and Ipratropium as needed. #Failed extubation 05/12 #Acute hypoxic respiratory failure s/p tracheostomy #Ventilator dependent -Patient underwent tracheostomy on 05/26/2025 -Chest physiotherapy daily #Chronic PEG tube dependence -Nepro 1.8 Christ 1L RTH -Pro Stat Sugar Free 30 ml #Hyperphosphatemia -Sevelamer 1g GT 2 times daily, adjust if needed. #Normocytic Anemia #Leukocytosis-Resolving #Maculopapular rash to the buttocks-Resolving #Acute urinary retention-Resolved #Hypoalbuminemia-Resolved #Hyperkalemia-Resolved #Acute kidney injury-Resolved #Anion Gap Metabolic Acidosis-Resolved #Acute nonocclusive thrombus in the left brachial vein-Resolved Disposition: Tele Diet: Nepro 1.8 Christ 1L RTH and Pro Stat Sugar Free 30 ml GI prophylaxis: Lansoprazole 30mg GT qd DVT prophylaxis: SCDs,[id number] SC BID due to bleeding Code: FULL Assessment and plan discussed with my attending physician Dr. Ennis and Dr. Baer (PGY-2) Dr. Molina (PGY-1) - global president Attending Provider Attestation/Addendum I have seen and examined the patient. I was physically present for the luke portions of the services provided including history, physical exam, diagnosis, treatment plans and orders. I agree with assessment and plan of care as documented by residents. Patient seen and examined at bedside this morning. Continues to flail on the bed. Continues to be tachycardic and tachypneic. Saturating well on pressure support. Discussed with ICU, agreed on trial of Precedex drip with discontinuation of rest of his medications to rule out drug-induced fever. Family updated by ICU team. Even though this this note was carefully revised there may still be minor errors in motor block mechanic due to voice recognition software. Jose Ennis MD
[2025-06-19] MEDS: levETIRAcetam LIQD 500 MG/5 ML UDC GT ×2 (08:29→20:19)
[2025-06-19] MEDS: SEVELAMER CARBONATE 0.8 GM PACKET (NON-FORMULARY) GT (08:37)
[2025-06-19] MEDS: DEXMEDETOMIDINE 400 MCG IVPB 400 MCG/100 ML BAG 22.893 MCG IV ×2 (09:44→13:15)
--- NOTE | 2025-06-19 11:06 | PD.RESPRO ---
Documentation for date of: 06/19/25 Subjective Subjective Interval history: 25-year-old male with history of cerebral palsy, asthma, seizure disorder, chronic mastoiditis, recurrent pneumonia, and chronic PEG tube dependence presented on 05/08/2025 with fever and seizure, was admitted for sepsis workup, and later transferred to the ICU on 05/09/25 for increased agitation, tachypnea, and increased secretions with recurrent fevers. Was downgraded on 05/31/25 due to resolution of fever for at least 48 hours however was upgraded back on 06/05/25 due to increased work of breathing, ventilator asynchrony agitation and fever. Patient was downgraded on 06/12 due to stable condition on pressure support with improvement of agitation and lack of fever over 24 hours. ICU team was consulted on this patient due to recurrent fevers of unknown origin. Fever started intermittently since he was downgraded on 06/12 with a Tmax of 103.2 ?F as noted on 06/15. The patient continues to be tachypneic and tachycardic since downgrade as well. Primary team has attempted to decrease the patient's clonazepam, but return to dosage and frequency that the patient was on in the ICU as they were concerned for increased agitation and possibly contributing to these recurrent fevers. Primary team has weaned propranolol down to 5 mg 3 times daily from 10 mg 3 times daily since downgrade from ICU and has increased the patient's deutetrabenazine to 9 mg twice daily from 6 mg twice daily. The patient's family and the primary team had a goals of care discussion regarding the disposition of the patient, and reached a conclusion that LTAC would be preferable for the patient as he remains on mechanical ventilation through tracheostomy tube and as recommended by Dr. Major, the certified medical biller of the subacute at [facility]. Due to the patient's recurrent fevers since his ICU downgrade, the primary team has consulted the ICU team to examine recurrent fevers of unknown origin to ensure medical stability for transfer to LTAC. The patient was seen and examined at bedside. The patient's tardive dyskinesia movements appeared to be a lower amplitude and frequency compared to his movements in the ICU. The patient was shown to be tachypneic and tachycardic and continues to be on pressure support mechanical ventilation. Patient was suctioned from tracheostomy tube, which did not show significant improvement in the patient's respiratory rate. Increasing pressure support did decrease the patient's respiratory rate slightly from the mid 40s to the low 40s. Patient's last recorded fever at this time was this morning at 101.1 ?F. Patient's dorsal slit was examined, does not appear inflamed or swollen. Overall, the patient does not appear overtly toxic or in any distress. Chest x-ray was ordered to rule out any possible mucous plugs given the patient's frequent secretions and history of requiring bronchoscopy for clearance of mucous plugs, which is noted to be negative for any acute abnormalities. At this time, there is low suspicion for an infectious process given the patient's stable white count and lack of clinical signs suggesting overt sepsis as compared to when the patient was in the ICU. His fevers of unknown origin or more likely medication related. Will recommend that the patient's Zosyn be discontinued and progressively wean the patient off of his extensive medication regimen as tolerated. Deutetrabenazine has not been shown to cause fevers, however due to the MOA of deutetrabenazine, it can increase serotonin levels, which could be contributing to the patients fevers of unknown origin, would be risk vs benefit as the deutetrabenazine does improve tardive dyskinesia. Will order CT chest/abdomen/pelvis with contrast to investigate any occult findings that may explain his fevers of unknown origin. Later in the afternoon, the patient's mother and father had a discussion with the primary team and the ICU team, with drug abuse social worker Rishi and in-house customer success director Lizbeth. The patient's parents expressed significant dissatisfaction with being told that her son would be transferred to an LTAC while his fevers were still not under control by a staff member from the hospital. The primary team clarified the miscommunication, stating that they were not planning to transfer the patient to an LTAC while the patient's fevers still remain uncontrolled. The patient's family expressed understanding, but remained frustrated that patient is not receiving day same level of attention and care that they had come to expect while the patient was in the ICU. The patient's family discussed that they wanted additional testing to uncover the source of the patient's fevers of unknown origin, to which the primary team clarified that they are actively investigating the source, but believe that it may be secondary to his extensive list of medications. The patient's family asked for a CT head with contrast, to which the primary team explained that several imaging of the patient's head have already been performed including an MRI, which is noted to be even more sensitive to abnormalities. Of note, the patient had already received a CT middle/inner ear with contrast on 05/08/2025 that shows a significant portion of the head, which was already reviewed by ENT physician Dr. Ojeda. The patient primary team also discussed how the ENT physician who had seen the patient in the past had evaluated the patient and his imaging, and thus far have not recommended further antibiotic treatment for any sinus infection. The patient's family continued to express dissatisfaction, asking the primary team to transfer the patient to a facility of high-level care as they believe that the hospitalists at [facility] have exhausted all of their options and expertise. They expressed that they do not want the patient to go to the LTAC as the physicians would not be there daily, and if they could, they would take the patient out of [facility] to a facility of higher level care themselves, but understands that they cannot do that with the patient requiring mechanical ventilation. The primary team expressed sympathy with the patient's parents and answered all their questions, stating that the primary team will call the patient's parents directly for daily updates similar to what the patient's parents had been receiving the patient was in the ICU just prior to the patient's most recent downgrade. The patient's family expressed gratitude to the primary team for listening to their request and did not express any further questions or complaints at the end of the discussion. 06/18/2025: Patient seen and examined at bedside. No acute events overnight. Patient did have an episode of 100.7 degree fever overnight, however does seem to be trending towards improvement in terms of fever frequency. Patient was asleep during examination, appeared comfortable, and had a respiratory rate in the mid 20s. CT chest/abdomen/pelvis with contrast did not show any acutely concerning findings or any identifiable sources for this patient's recurrent fevers. Will recommend primary team to continue with weaning the patient off most of his medications. Consider reaching out to neurology to see if decreasing the patient's Depakote would be appropriate. 06/19/2025: Patient was seen and examined at bedside this morning patient was still spiking fevers overnight with Tmax being 101.3 yesterday evening and this morning again 101.3. Given that this patient was transferred to the ICU to start Precedex drip and stop almost all his medications except for what he was taking at home which was Keppra and clonazepam, but did decrease clonazepam to twice daily. Will monitor patient in the ICU on Precedex drip only and see if patient did not spike any further fevers. Spoke with patient's father and mother using customer success director Kareem with ID #[id number] and explained that we will upgrade the patient back to the ICU and explained the plan and all other questions and concerns were answered. Exam Vital Signs Temp Pulse Resp BP Pulse Ox O2 Del Method O2 Flow Rate 98.9 F 133 H 31 H 172/140 H 100 Mechanical Ventilation 35 06/19/25 09:27 06/19/25 10:18 06/19/25 08:00 06/19/25 10:18 06/19/25 10:18 06/19/25 08:00 06/19/25 08:00 FiO2 25 06/19/25 10:18 Narrative Exam Gen: Nonpurposeful movements, trached HEENT: NCAT, EOMI, Pupils reactive KARLO, not icteric, external ears normal. No rhinorrhea. Moist mucous membranes with no visible blood. Neck: Supple, full range of motion, no observable masses, No meningeal sign. Lungs: Coarse breath sounds bilateral CV: tachycardic, no murmurs appreciated. Abdomen: Soft, nondistended, No rebound tenderness, PEG tube in place, peristalsis present. MSK: No lower extremity edema, no redness, peripheral pulses presents, Contracted hands, decreased tone Skin: No, petechiae, lesions, erythematous Neuro: Alert and moving extremitie, pupils reactive, nonpurposeful movements with facial grimacing. Objective Labs 06/20/25 04:48 06/20/25 04:48 Labs: Laboratory Results - last 24 hr 06/19/25 02:48 Phosphorus 4.2 ABG Interpretation ABG results: 05/09/25 05/09/25 05/09/25 11:56 13:40 18:50 ABG pH 7.40 7.27 L D 7.28 L ABG pCO2 40 43 55 H D ABG pO2 131 H 53 L* D 70 L ABG HCO3 25 20 26 ABG O2 Saturation 99 H 81 L 92 ABG Base Excess 0 -7 L -2 VBG pH VBG pCO2 VBG pO2 VBG Base Excess 05/10/25 05/11/25 05/12/25 00:14 05:06 01:18 ABG pH 7.35 7.33 L 7.39 ABG pCO2 42 D 54 H D 48 ABG pO2 103 D 93 94 ABG HCO3 23 28 H 29 H ABG O2 Saturation 99 H 98 98 ABG Base Excess -3 2 3 VBG pH VBG pCO2 VBG pO2 VBG Base Excess 05/12/25 05/12/25 05/13/25 03:58 11:50 05:10 ABG pH 7.46 H 7.39 7.19 L* D ABG pCO2 41 48 60 H D ABG pO2 105 58 L* D 114 H D ABG HCO3 29 H 29 H 23 ABG O2 Saturation 99 H 90 L 98 ABG Base Excess 5 H 4 H -6 L VBG pH VBG pCO2 VBG pO2 VBG Base Excess 05/17/25 05/18/25 05/19/25 01:30 04:09 04:43 ABG pH 7.38 7.43 7.47 H ABG pCO2 46 44 43 ABG pO2 90 83 80 L ABG HCO3 27 H 29 H 31 H ABG O2 Saturation 98 97 97 ABG Base Excess 2 5 H 7 H VBG pH VBG pCO2 VBG pO2 VBG Base Excess 05/21/25 05/21/25 05/31/25 04:18 06:33 08:06 ABG pH 7.37 D 7.46 H ABG pCO2 50 H 38 D ABG pO2 40 L* D 121 H D ABG HCO3 29 H 27 H ABG O2 Saturation 66 L 100 H ABG Base Excess 3 3 VBG pH 7.55 VBG pCO2 31 L VBG pO2 144 H VBG Base Excess 5 H 06/05/25 06/05/25 06/06/25 13:37 23:46 05:20 ABG pH 7.47 H 7.45 ABG pCO2 35 38 ABG pO2 200 H 54 L* D ABG HCO3 25 26 ABG O2 Saturation 101 H 89 L ABG Base Excess 2 2 VBG pH 7.50 VBG pCO2 34 L VBG pO2 90 H VBG Base Excess 4 H 06/10/25 17:41 ABG pH ABG pCO2 ABG pO2 ABG HCO3 ABG O2 Saturation ABG Base Excess VBG pH 7.40 VBG pCO2 43 VBG pO2 43 VBG Base Excess 2 Quality Measures Quality Measures VTE prophylaxis (SCDs) and sepsis Current suspected stage: ruled out Possible source: pulmonary Blood cultures ordered: yes Antibiotic ordered: No Assessment & Plan Assessment Current Active Medications: Generic Name Dose Route Start Last Admin Trade Name Freq PRN Reason Stop Dose Admin Acetaminophen 325 mg 06/16/25 16:18 06/19/25 08:27 Acetaminophen Raqcuel 325 Mg/10 Ml Udc GT 07/09/25 16:12 325 mg On Hold: 06/19/25 09:00 Q4HR PRN Administration pain (1-3) or fever > 100.4 Clonazepam 0.5 mg 06/19/25 21:00 Clonazepam 0.5 Mg Tablet GT 06/24/25 20:59 BID KYA Deutetrabenazine 9 mg 06/14/25 08:00 06/19/25 08:25 Deutetrabenazine 6 Mg Tablet (Non-Formulary) GT 07/14/25 07:59 9 mg On Hold: 06/19/25 09:01 BIDWM KYA Administration Ferrous Sulfate 325 mg 06/01/25 09:00 06/19/25 08:29 Ferrous Sulfate 300 Mg/5 Ml Udc PO 07/01/25 08:59 325 mg On Hold: 06/19/25 09:01 QOD KYA Administration Heparin Sodium (Porcine) 5,000 unit 06/08/25 14:00 06/19/25 05:05 Heparin Sod Inj 5000 Unit/Ml Vial SC 06/22/25 13:59 5,000 unit On Hold: 06/19/25 09:01 Q8HR KYA Administration Dexmedetomidine/Sodium Chloride 400 mcg in 100 mls @ 3.27 mls/hr 06/19/25 09:42 Precedex Ivpb IV 07/19/25 09:01 .Q24H PRN Per PROTOCOL Protocol 0.2 MCG/KG/HR Ibuprofen 100 mg 06/15/25 15:47 06/18/25 16:17 Ibuprofen Susp 100 Mg/5 Ml Udc GT 07/15/25 15:46 100 mg On Hold: 06/19/25 09:01 Q6HR PRN Administration PAIN 1-3 OR FEVER > 101 Protocol Levetiracetam 500 mg 06/16/25 21:00 06/19/25 08:29 Levetiracetam Liqd 500 Mg/5 Ml Udc GT 07/16/25 20:59 500 mg BID KYA Administration Sterile Water 10 ml 06/14/25 17:30 06/19/25 08:27 Water, Sterile Inj 50 Ml Vial GT 07/14/25 17:29 10 ml On Hold: 06/19/25 09:02 BIDWM KYA Administration Protocol Plan 25-year-old male with history of cerebral palsy, asthma, seizure disorder, chronic mastoiditis, recurrent pneumonia, and chronic PEG tube dependence presented on 05/08/2025 with fever and seizure, was admitted for sepsis workup, and later transferred to the ICU on 05/09/25 for increased agitation, tachypnea, and increased secretions with recurrent fevers. Was downgraded on 05/31/25 due to resolution of fever for at least 48 hours however was upgraded back on 06/05/25 due to increased work of breathing, ventilator asynchrony agitation and fever. Patient was downgraded on 06/12 due to stable condition on pressure support with improvement of agitation and lack of fever over 24 hours. ICU team was consulted for recurrent fevers of unknown origin. NEURO #Agitation Differential diagnosis: ICU acquired delirium, opiate withdrawal, delirium Diagnostic workup: - Patient was weaned off of sedation and was downgraded to telemetry, however as sedatives were down titrated and telemetry patient had episode of severe agitation and ventilator asynchrony and was upgraded to ICU for further intervention. - EEG 05/11 unremarkable. Repeat EEG 05/20 showed electrographic seizure activity. Continuous EEG 05/22-05/23: no seizure activity or status epilepticus. Repeat EEG 06/05 negative for seizure activity. - MRI brain 05/23: showed chronic infections, no acute pathology. - Cisatracurium gtt discontinued - Versed gtt discontinued Treatment: - Discontinued Phenobarbital 129.6 mg three times daily - Decrease Clonazepam to 0.5 mg twice daily - Discontinued Oxycodone 10 mg three times daily - Precedex drip started #Tardive dyskinesia Diagnostic workup: - Nonpurposeful twisting movements of the patient's upper extremity with recurrent grimaces noted on 06/10 when the patient was taken off sedation - Patient's family notes that the patient has had a long history of nonpurposeful movement and has been previously prescribed deutetrabenazine for management by his neurologist Treatment: - Hold home Seroquel 50 mg in the morning and 100 mg at night due to tardive dyskinesia - Discontinued Deutetrabenazine 9 mg twice daily -Started precedex drip #Seizure disorder by history #Cerebral palsy by history Diagnostic workup: - Active seizure disorder ruled out, multiple EEGs negative for seizure activity Treatment: - Continue Keppra 750 mg GT twice daily CARDIO #Sinus tachycardia Differential diagnosis: Infection, hypersympathetic activity Diagnostic workup: - Did have positive sputum and urine culture for Pseudomonas and ESBL respectively - Patient's last fever was 06/06/2025 04:36 - Echocardiogram was obtained to rule out any vegetations TTE shows normal systolic function, EF 55 to 60%, diastolic dysfunction grade 1, no evidence of vegetation or endocarditis Treatment: - Discontinued propranolol 10 mg to 5 mg 3 times daily PULM #Mucus plugs, right upper lung and left lower lung, Resolved #Mechanical ventilation #Chronic respiratory failure status post tracheostomy 05/26 Currently on PS Diagnostic workup: - Patient failed extubation during the hospitalization on 05/12, was reintubated overnight 05/13. - Unable to wean patient off ventilator, tracheostomy performed 05/26/2025, sutures removed 06/06/2025 - Patient underwent bronchoscopies 05/14, 05/17 and 06/05 for increased secretions - Currently on PS, will keep PS overnight Treatment: - Monitor SpO2, goal greater than 92 - Continue mechanical ventilation on PS Follow-up: - Continue to down titrate pressure on PS as tolerated until 5 mmHg, then transition to Blow-by if patient tolerates low pressure PS ventilation #Asthma by history Diagnostic workup: - Patient has history of asthma on montelukast, albuterol as needed at home Treatment: - Currently on PS GI #Chronic PEG tube dependence Differential diagnosis: Chronic dysphagia likely in setting of cerebral palsy Diagnostic workup: - Patient was previously on Jevity 1.5, switched to Nepro due to hyperphosphatemia. Treatment: - Nepro trickle feeds, advance as tolerated Follow-up: - Goal tube feeds as tolerated NEPHRO #Elevated alkaline phosphatase, improving #Low PTH #Abnormal nuclear medicine bone scan Differential diagnosis: increased osteoblastic activity in setting of vegetative state, bone infection (particularly of left mastoid), hypoparathyroidism, osteoarthritis Diagnostic workup: - PTH intact low at 3.6, calcium 9.9, vitamin D 25-OH 18.1 - Renal function intact, at baseline - Nuclear medicine bone scan shows minor asymmetric uptake left knee and mild increased uptake mid left tibia - Knee x-ray 06/06 and tibia-fibula x-ray 06/06 showed no findings diagnostic for osseous metastatic disease - MRI left leg 06/08 images severely degraded by continuous patient motion - No pain to palpation of bilateral lower extremities Treatment: - Discontinue sevelamer 800 mg 3 times daily URO #Phimosis s/p dorsal slit procedure 06/08/2025 #Paraphimosis (resolved) #Balanitis (resolved) Diagnostic workup: - Edema and tenderness of the glans penis, Swelling of the distal retracted foreskin, Constricting band of tissue proximal to the head of the penis at the coronal sulcus on presentation, s/p reduction of the paraphimosis by urologist Dr. Vargas on 05/09. - Patient has somewhat retractable foreskin, has good urine output, no swelling noted, has external catheter draining well - Urologist Dr. Vargas performed dorsal slit procedure on 06/08 Treatment: - Follow up if need of additional dilaudid HEME #Acute nonocclusive thrombus in the left brachial vein Diagnostic workup: - Venous doppler study of upper extremities 05/16: Normal right upper extremity deep venous system. Positive for nonocclusive thrombus in the left brachial vein. - Per chart review and patient's parents, patient does not have history of clots. - Given patient's inability to safely engage and risk of continued trauma to buccal mucosa by biting will not do full dose anticoagulation given increased risk of bleeding Treatment: - Heparin loading dose and ggt. Lovenox to heparin due to heparin?s shorter half-life, which allows for more rapid cessation in the event of bleeding, a shorter half life and can be stopped if bleeding occurs. - Stopped heparin ggt due to hematuria on 05/18. - Restarted Lovenox 05/31 for tx of primary upper extremity deep vein thrombosis, anticoagulation should be continued for a minimum of three months following the initial thrombotic event, but given patient is high risk to buccal mucosa trauma will not pursue therapeutic dose as high risk of bleeding. Transitioned to heparin SC every 8 hours. Follow-up: - Heparin SC every 8 hours for DVT prophylaxis #Normocytic Anemia Differential diagnosis: Anemia of chronic disease, nutritional anemia, iatrogenic Diagnostic workup: - Likely multifactorial, currently not an active concern Treatment: - Monitor CBC, transfuse if hemoglobin less than 7 ENDO #No active problems Integumentary #Tongue Laceration, traumatic #Gingivial Bleeding, Oral Trauma Diagnostic workup: -Known to have episodes of jaw spasms and teeth clenching with agitation. Had significant trauma to gums and tongue due to clenching of teeth 06/06 - No further bleeding appreciated in oral mucosa Treatment: - Patient required cisatracurium to relax jaw, pressure was applied locally, oral packing none, injections of lido?epinephrine x 3 to gums on 06/06 night Follow-up: - Monitor for bleeding ID #Fever of unknown origin Differential diagnosis: More likely medication side effect, less likely infectious cause Diagnostic workup: - Repeat chest x-ray obtained 06/17 in AM negative for acute findings - CT chest/abdomen/pelvis ordered to identify any occult causes for fever of unknown origin showed no infectious source - ID has been consulted, who notes that recurrent fevers are more likely medication related and unlikely infection related, recommended cessation of antibiotics Treatment: Discontinued all medications except what patient received at home since he had not had fevers at home. Placed on precedex drip and will assess for any further fevers #Bilateral chronic mastoiditis #Sinusitis #Bilateral otitis media #Bilateral otitis externa #Brittney parapsilosis #UTI, E.coli, ESBL #Pseudomonas aeruginosa, sputum positive ? -History of chronic mastoiditis. -Met SIRS criteria on admission: T 105F, HR 176, RR 26, PaCO2 26, WBC 16.3. -Head CT (05/08/2025): prominent sphenoid ethmoid maxillary antral sinusitis, bilateral chronic mastoiditis, bilateral otitis media. -CT Orbit Sella Inner (05/08/2025): severe bilateral chronic mastoiditis, bilateral otitis externa and otitis media, bilateral cholesteatomas in the attics. -CXR (05/09/2025): Bilateral Perihilar Pneumonia. CXR (05/13/2025): Extensive Bilateral Pneumonia, CXR(05/19/2025): Significant bilateral Pneumonia -CT Chest/abd/pelvis (05/16/2025): Extensive bilateral pneumonia, Cystitis pattern, Cholelithiasis -A repeat Cocci serology test was negative -Lumbar puncture(05/10/2025): clear, WBC 3, glucose 70, total protein 25. CSF testing negative. -Respiratory viral panel (05/10/2025): rhinovirus/enterovirus and human metapneumovirus detected. -UA 05/08 and 05/16 negative. [Culture Hx] -1st Blood Cx (05/08): No growth for 5 days. 2nd Blood Cx (05/11): No growth for 5 days, 3rd Blood Cx (05/16): No growth for 5 days, 4th Blood Cx (06/01): No growth for 48hrs -1st Sputum Cx (05/09): Pseudomonas aeruginosa (only sensitive to Meropenem, Tobramycin). 2nd Sputum Cx (05/13): Mixed oral hamilton. 3rd Sputum Cx (05/19): Mixed oral hamilton, 4th Sputum Cx (05/20): Brittney albicans, 5th Sputum Cx (06/01): GNR -CSF Cx (05/10): No growth for 3 days -Left Ear Cx (05/12): Brittney parapsilosis -Right Ear Cx(05/12): E.coli, ESBL (only sensitive to Ertapenem, Meropenem, Zosyn) -Urine Cx (06/01): E.coli, ESBL (only sensitive to Ertapenem, Meropenem, Nitrofurantoin, Zosyn) -Sputum culture 06/05 shows sensitive to Zosyn and intermittent resistance to cefepime [Antibiotics/Antifungal Hx] IV Zosyn 3.375g x1 (at 05/08) IV Ceftriaxone 1g x1 (at 05/08) IV Acyclovir 640mg q8hr (05/08-05/11) since LP negative. IV Ceftriaxone 2g q12hr (05/08-05/11) IV Vancomycin qd (05/08-05/11) since MRSA screen is negative Ofloxacin Opt racquel 0.3% 5 drops Both ears bid (05/09-05/18, 05/21-05/31) IV Meropenem 1000mg q8hr (05/12-05/22, 05/24-05/25) IV Doxycycline (05/16-05/18) IV Micafungin 100mg qd (05/28-05/30, 06/01-06/03) Ciprofloxacin Op Racquel 0.3% ear drops (06/02-06/03) -CXR is showing pneumonia, but CXR often remain abnormal for days to weeks. The infiltrate or consolidation can persist even though the infection has cleared. The radiographic improvement can take up to 4-6 weeks.? Patient is on minimal ventilator setting, oxygen requirement is stable, and has completed antibiotics course. -UTI unlikely sources of infection given low number of colonies and long antibiotics treatment in ICU. -Per ENT, Dr. Ojeda, patient does not have acute coalescent mastoiditis in either ear. Left and right middle ear is also not filled with effusion. -Chest x-ray 06/07 AM, showed a left lower lobe consolidation, ddx left lower lobe pneumonia versus mucous plug versus left pleural effusion versus mucous plug versus atelectasis lung ultrasound at bedside, effusion ruled out, no hepatization of the lung noted. Bedside bronchoscopy showed left lower lobe mucous plug, cleared with deep suction Treatment: - Recommend discontinuation of antibiotics at this time Previous treatments: IV Zosyn 4.5 g q8hr (06/05 - 06/16) IV Zosyn 3.375g x1 (at 05/08) IV Ceftriaxone 1g x1 (at 05/08) IV Acyclovir 640mg q8hr (05/08-05/11) IV Ceftriaxone 2g q12hr (05/08-05/11) IV Vancomycin qd (05/08-05/11) since MRSA screen is negative IV Meropenem 1000mg q8hr (05/12-05/22, 05/24-05/25) IV Doxycycline (05/16-05/18) IV Micafungin 100mg qd (05/28-05/30, 06/01-06/03) IV fluconazole 06/05-06/07 Follow-up: - Once weaned off sedation and patient has cough reflex intact and more awake/alert, will consider chest physiotherapy. MSK #No active problems SKIN #No active problems Disposition: ICU precedex drip and discontinue all medications except home meds. Diet: Nepro 1.8 Christ 1L RTH and Pro Stat Sugar Free 30 ml GI prophylaxis: not indicated DVT prophylaxis: SCDs, [id number] SC BID due to bleeding CODE STATUS: Full code Case disclosed with Attending Dr. Salbador Easton PGY2 Disclaimer: Even though this this note was dictated by speech recognition and even though it was carefully revised there may still be minor errors in certified vehicle fire investigator due to voice recognition software. Attending Provider Attestation/Addendum pt seen and examined, agree with above. in brief this is a 25yo M who is in the ICU for precedex gtt and FUO. All his meds have been stopped other than the home keppra and clonazepam. Suspect drug related fever, no signs of active infection. Becomes restless intermittently and agitated. No change on physical exam, when he gets worked up he is tachycardic and tachpneic. Remains on PSV with minimal support and minimal FiO2 needs. d/w family at bedside. abd is slightly firm ? constipation, will give 1x lactulose for bowel movement. case d/w ICU team labs, imaging, records reviewed ~36min required for eval, exam, review, intervention, discussion and formulation of POC for this pt
[2025-06-19] MEDS: LACTULOSE SYRUP 20 GM/30 ML UDC 30 GM GT (13:24)
[2025-06-19] MEDS: HYDROmorphone INJ 2 MG/ML VIAL 1 MG IVP (13:24)
[2025-06-19] MEDS: RINGERS LACTATED 500 ML 250 ML 999 ML IV (14:15)
--- NOTE | 2025-06-19 15:20 | PC.SS ---
SS update: Charge nurse informed ASW that family was requesting to speak to SS yesterday, Charge nurse will notify ASW once family arrives at bedside.
[2025-06-19] MEDS: DEXMEDETOMIDINE 400 MCG IVPB 400 MCG/100 ML BAG 9.811 MCG IV (20:37)
--- NOTE | 2025-06-19 23:52 | PD.VPROG1 ---
Telemedicine visit statement This visit was conducted with the use of interactive audio and video telecommunications system that permits real time communication between the patient and the provider. Patient's verbal consent for virtual visit was obtained on 06/19/25 at 2352. Documentation for date of: 06/19/25 Virtual exam Vital Signs Temp Pulse Resp BP Pulse Ox O2 Del Method O2 Flow Rate 98.4 F 78 20 105/54 L 100 Trach Collar 35 06/19/25 20:00 06/19/25 22:20 06/19/25 22:00 06/19/25 22:20 06/19/25 22:20 06/19/25 20:00 06/19/25 08:00 FiO2 25 06/19/25 22:20 Objective Labs 06/17/25 04:22 06/17/25 04:22 Labs: Laboratory Results - last 24 hr 06/19/25 02:48 Phosphorus 4.2 ABG Interpretation ABG results: 05/09/25 05/09/25 05/09/25 11:56 13:40 18:50 ABG pH 7.40 7.27 L D 7.28 L ABG pCO2 40 43 55 H D ABG pO2 131 H 53 L* D 70 L ABG HCO3 25 20 26 ABG O2 Saturation 99 H 81 L 92 ABG Base Excess 0 -7 L -2 VBG pH VBG pCO2 VBG pO2 VBG Base Excess 05/10/25 05/11/25 05/12/25 00:14 05:06 01:18 ABG pH 7.35 7.33 L 7.39 ABG pCO2 42 D 54 H D 48 ABG pO2 103 D 93 94 ABG HCO3 23 28 H 29 H ABG O2 Saturation 99 H 98 98 ABG Base Excess -3 2 3 VBG pH VBG pCO2 VBG pO2 VBG Base Excess 05/12/25 05/12/25 05/13/25 03:58 11:50 05:10 ABG pH 7.46 H 7.39 7.19 L* D ABG pCO2 41 48 60 H D ABG pO2 105 58 L* D 114 H D ABG HCO3 29 H 29 H 23 ABG O2 Saturation 99 H 90 L 98 ABG Base Excess 5 H 4 H -6 L VBG pH VBG pCO2 VBG pO2 VBG Base Excess 05/17/25 05/18/25 05/19/25 01:30 04:09 04:43 ABG pH 7.38 7.43 7.47 H ABG pCO2 46 44 43 ABG pO2 90 83 80 L ABG HCO3 27 H 29 H 31 H ABG O2 Saturation 98 97 97 ABG Base Excess 2 5 H 7 H VBG pH VBG pCO2 VBG pO2 VBG Base Excess 05/21/25 05/21/25 05/31/25 04:18 06:33 08:06 ABG pH 7.37 D 7.46 H ABG pCO2 50 H 38 D ABG pO2 40 L* D 121 H D ABG HCO3 29 H 27 H ABG O2 Saturation 66 L 100 H ABG Base Excess 3 3 VBG pH 7.55 VBG pCO2 31 L VBG pO2 144 H VBG Base Excess 5 H 06/05/25 06/05/25 06/06/25 13:37 23:46 05:20 ABG pH 7.47 H 7.45 ABG pCO2 35 38 ABG pO2 200 H 54 L* D ABG HCO3 25 26 ABG O2 Saturation 101 H 89 L ABG Base Excess 2 2 VBG pH 7.50 VBG pCO2 34 L VBG pO2 90 H VBG Base Excess 4 H 06/10/25 17:41 ABG pH ABG pCO2 ABG pO2 ABG HCO3 ABG O2 Saturation ABG Base Excess VBG pH 7.40 VBG pCO2 43 VBG pO2 43 VBG Base Excess 2
[2025-06-20] VITALS (31 sets, daily range): BP systolic 96–141; BP diastolic 56–99; PULSE 65–189; RESP 17–37; TEMP 35.6–38.3; O2SAT 87–100; BMI 26.6
[2025-06-20] MEDS: HEPARIN SOD INJ 5000 UNIT/ML VIAL SC ×3 (05:10→22:35)
[2025-06-20 06:07] LABS: Basophils # (Auto) 0.1 Thou/mm3 (0.0-0.2); Basophils % (Auto) 1 % (0-2.5); Eosinophils # (Auto) 0.5 Thou/mm3 (0.0-0.5); Eosinophils % (Auto) 7 % (0-10); Hematocrit 29.1 % (41.0-53.0); Hemoglobin 9.0 g/dL (13.5-16.0); Immature Granulocytes Auto 0.17 Thou/mm3 (0.00-0.00); Lymphocytes # (Auto) 2.3 Thou/mm3 (1.0-4.8); Lymphocytes % (Auto) 34 % (10-50); Mean Corpuscular HGB Conc 30.9 g/dl (31.0-37.0); Mean Corpuscular Hemoglobin 26.7 pg (25.0-35.0); Mean Corpuscular Volume 86 fL (80-100); Monocytes # (Auto) 1.2 Thou/mm3 (0.0-0.8); Monocytes % (Auto) 19 % (0-12); Neutrophils # (Auto) 2.4 Thou/mm3 (1.8-7.7); Neutrophils % (Auto) 36 % (37-80); Nucleated Red Blood Cell # 0.00 Thou/mm3 (0.00-0.00); Nucleated Red Blood Cell % 0 /100 WBC (0); Platelet Count 477 Thou/mm3 (140-440); RDW Standard Deviation 51.1 fL (35.1-43.9); Red Blood Count 3.37 Miln/mm3 (4.50-5.90); White Blood Count 6.7 Thou/mm3 (3.8-10.6)
[2025-06-20 06:34] LABS: Alanine Aminotransferase 29 U/L (10-49); Albumin, Serum 4.3 gm/dL (3.5-5.0); Albumin/Globulin Ratio 1.5 (1.2-2.2); Alkaline Phosphatase 123 U/L (46-116); Anion Gap 14 (7-16); Aspartate Amino Transferase 35 U/L (0-34); BUN/Creatinine Ratio 22 Ratio (12-20); Bilirubin,Total 0.2 mg/dL (0.3-1.2); Blood Urea Nitrogen 13 mg/dL (9-23); Calcium 10.3 mg/dL (8.3-10.6); Calcium (Corrected) 10.3 mg/dL (8.5-10.1); Carbon Dioxide 24.0 mMol/L (20.0-31.0); Chloride 102 mMol/L (98-107); Creatinine (Component) 0.6 mg/dL (0.6-1.3); Estimated Creatinine Clearance 141.9 mL/min (>60); Globulin 2.8 gm/dL (2.3-3.5); Glucose 94 mg/dL (74-106); Magnesium 1.8 mg/dL (1.6-2.6); Osmolality,Calculated 279 (275-295); Phosphorous 5.4 mg/dL (2.4-5.1); Potassium 4.0 mMol/L (3.4-5.1); Sodium 140 mMol/L (136-145); Total Protein 7.1 gm/dL (5.7-8.2); eGFR > 60 See Note
[2025-06-20] MEDS: levETIRAcetam LIQD 500 MG/5 ML UDC GT (08:03)
[2025-06-20] MEDS: DEXMEDETOMIDINE 400 MCG IVPB 400 MCG/100 ML BAG 9.811 MCG IV (08:39)
--- NOTE | 2025-06-20 11:11 | PD.RESPRO ---
Documentation for date of: 06/20/25 Subjective Subjective Interval history: 25-year-old male with history of cerebral palsy, asthma, seizure disorder, chronic mastoiditis, recurrent pneumonia, and chronic PEG tube dependence presented on 05/08/2025 with fever and seizure, was admitted for sepsis workup, and later transferred to the ICU on 05/09/25 for increased agitation, tachypnea, and increased secretions with recurrent fevers. Was downgraded on 05/31/25 due to resolution of fever for at least 48 hours however was upgraded back on 06/05/25 due to increased work of breathing, ventilator asynchrony agitation and fever. Patient was downgraded on 06/12 due to stable condition on pressure support with improvement of agitation and lack of fever over 24 hours. ICU team was consulted on this patient due to recurrent fevers of unknown origin. Fever started intermittently since he was downgraded on 06/12 with a Tmax of 103.2 ?F as noted on 06/15. The patient continues to be tachypneic and tachycardic since downgrade as well. Primary team has attempted to decrease the patient's clonazepam, but return to dosage and frequency that the patient was on in the ICU as they were concerned for increased agitation and possibly contributing to these recurrent fevers. Primary team has weaned propranolol down to 5 mg 3 times daily from 10 mg 3 times daily since downgrade from ICU and has increased the patient's deutetrabenazine to 9 mg twice daily from 6 mg twice daily. The patient's family and the primary team had a goals of care discussion regarding the disposition of the patient, and reached a conclusion that LTAC would be preferable for the patient as he remains on mechanical ventilation through tracheostomy tube and as recommended by Dr. Major, the medical investigator of the subacute at [facility]. Due to the patient's recurrent fevers since his ICU downgrade, the primary team has consulted the ICU team to examine recurrent fevers of unknown origin to ensure medical stability for transfer to LTAC. The patient was seen and examined at bedside. The patient's tardive dyskinesia movements appeared to be a lower amplitude and frequency compared to his movements in the ICU. The patient was shown to be tachypneic and tachycardic and continues to be on pressure support mechanical ventilation. Patient was suctioned from tracheostomy tube, which did not show significant improvement in the patient's respiratory rate. Increasing pressure support did decrease the patient's respiratory rate slightly from the mid 40s to the low 40s. Patient's last recorded fever at this time was this morning at 101.1 ?F. Patient's dorsal slit was examined, does not appear inflamed or swollen. Overall, the patient does not appear overtly toxic or in any distress. Chest x-ray was ordered to rule out any possible mucous plugs given the patient's frequent secretions and history of requiring bronchoscopy for clearance of mucous plugs, which is noted to be negative for any acute abnormalities. At this time, there is low suspicion for an infectious process given the patient's stable white count and lack of clinical signs suggesting overt sepsis as compared to when the patient was in the ICU. His fevers of unknown origin or more likely medication related. Will recommend that the patient's Zosyn be discontinued and progressively wean the patient off of his extensive medication regimen as tolerated. Deutetrabenazine has not been shown to cause fevers, however due to the MOA of deutetrabenazine, it can increase serotonin levels, which could be contributing to the patients fevers of unknown origin, would be risk vs benefit as the deutetrabenazine does improve tardive dyskinesia. Will order CT chest/abdomen/pelvis with contrast to investigate any occult findings that may explain his fevers of unknown origin. Later in the afternoon, the patient's mother and father had a discussion with the primary team and the ICU team, with aids social worker Rishi and in-house combat information center officer Lizbeth. The patient's parents expressed significant dissatisfaction with being told that her son would be transferred to an LTAC while his fevers were still not under control by a staff member from the hospital. The primary team clarified the miscommunication, stating that they were not planning to transfer the patient to an LTAC while the patient's fevers still remain uncontrolled. The patient's family expressed understanding, but remained frustrated that patient is not receiving day same level of attention and care that they had come to expect while the patient was in the ICU. The patient's family discussed that they wanted additional testing to uncover the source of the patient's fevers of unknown origin, to which the primary team clarified that they are actively investigating the source, but believe that it may be secondary to his extensive list of medications. The patient's family asked for a CT head with contrast, to which the primary team explained that several imaging of the patient's head have already been performed including an MRI, which is noted to be even more sensitive to abnormalities. Of note, the patient had already received a CT middle/inner ear with contrast on 05/08/2025 that shows a significant portion of the head, which was already reviewed by ENT physician Dr. Ojeda. The patient primary team also discussed how the ENT physician who had seen the patient in the past had evaluated the patient and his imaging, and thus far have not recommended further antibiotic treatment for any sinus infection. The patient's family continued to express dissatisfaction, asking the primary team to transfer the patient to a facility of high-level care as they believe that the hospitalists at [facility] have exhausted all of their options and expertise. They expressed that they do not want the patient to go to the LTAC as the physicians would not be there daily, and if they could, they would take the patient out of [facility] to a facility of higher level care themselves, but understands that they cannot do that with the patient requiring mechanical ventilation. The primary team expressed sympathy with the patient's parents and answered all their questions, stating that the primary team will call the patient's parents directly for daily updates similar to what the patient's parents had been receiving the patient was in the ICU just prior to the patient's most recent downgrade. The patient's family expressed gratitude to the primary team for listening to their request and did not express any further questions or complaints at the end of the discussion. 06/18/2025: Patient seen and examined at bedside. No acute events overnight. Patient did have an episode of 100.7 degree fever overnight, however does seem to be trending towards improvement in terms of fever frequency. Patient was asleep during examination, appeared comfortable, and had a respiratory rate in the mid 20s. CT chest/abdomen/pelvis with contrast did not show any acutely concerning findings or any identifiable sources for this patient's recurrent fevers. Will recommend primary team to continue with weaning the patient off most of his medications. Consider reaching out to neurology to see if decreasing the patient's Depakote would be appropriate. 06/19/2025: Patient was seen and examined at bedside this morning patient was still spiking fevers overnight with Tmax being 101.3 yesterday evening and this morning again 101.3. Given that this patient was transferred to the ICU to start Precedex drip and stop almost all his medications except for what he was taking at home which was Keppra and clonazepam, but did decrease clonazepam to twice daily. Will monitor patient in the ICU on Precedex drip only and see if patient did not spike any further fevers. Spoke with patient's father and mother using combat information center officer Kareem with ID #[id number] and explained that we will upgrade the patient back to the ICU and explained the plan and all other questions and concerns were answered. 06/20/2025: Patient was seen and examined at bedside's morning. No acute overnight events. Patient did not spike any fevers with the last 1 being yesterday in the morning. Patient's heart rate has also been well-controlled below 100s is currently on blow-by. Updated patient's mother and father using combat information center officer Tri #[id number] and father did have a question what was patient's status condition yesterday and why he was taken to the ICU, was explained to him that he was only taking so that we could start him on sedation in order to stop all his medications which we could not do on telemetry floors as we have stated yesterday as well. Father also had a concern that patient could get a virus, but was explained to him that being in a hospital in general can increase your risk of acquiring infections. Otherwise they had no other complaints nor questions. At this time patient is currently off Precedex drip I will monitor in the ICU until this afternoon and if stable will downgrade to telemetry floor. Exam Vital Signs Temp Pulse Resp BP Pulse Ox O2 Del Method O2 Flow Rate 98.1 F 103 H 21 H 114/77 100 Trach Collar 6 06/20/25 07:00 06/20/25 10:01 06/20/25 10:01 06/20/25 10:01 06/20/25 10:01 06/20/25 04:00 06/20/25 07:17 FiO2 40 06/20/25 08:00 Narrative Exam Gen: Nonpurposeful movements, trached on blow by HEENT: NCAT, EOMI, Pupils reactive KARLO, not icteric, external ears normal. No rhinorrhea. Moist mucous membranes with no visible blood. Neck: Supple, full range of motion, no observable masses, No meningeal sign. Lungs: Coarse breath sounds bilateral CV: tachycardic, no murmurs appreciated. Abdomen: Soft, nondistended, No rebound tenderness, PEG tube in place, peristalsis present. MSK: No lower extremity edema, no redness, peripheral pulses presents, Contracted hands, decreased tone Skin: No, petechiae, lesions, erythematous Neuro: Alert and moving extremitie, pupils reactive, nonpurposeful movements with facial grimacing. Objective Labs 06/20/25 04:48 06/20/25 04:48 Labs: Laboratory Results - last 24 hr 06/20/25 04:48 WBC 6.7 RBC 3.37 L Hgb 9.0 L Hct 29.1 L MCV 86 MCH 26.7 MCHC 30.9 L RDW Std Deviation 51.1 H Plt Count 477 H D Neut % (Auto) 36 L Lymph % (Auto) 34 Sterling % (Auto) 19 H Eos % (Auto) 7 Baso % (Auto) 1 Neut # (Auto) 2.4 Lymph # (Auto) 2.3 Sterling # (Auto) 1.2 H Eos # (Auto) 0.5 Baso # (Auto) 0.1 Immature Gran # (Auto) 0.17 H Absolute Nucleated RBC 0.00 Immature Gran % 3 H Nucleated RBC % 0 Sodium 140 Potassium 4.0 Chloride 102 Carbon Dioxide 24.0 Anion Gap 14 BUN 13 Creatinine 0.6 Estim Creat Clear Calc 141.9 eGFR > 60 BUN/Creatinine Ratio 22 H Glucose 94 Calculated Osmolality 279 Calcium 10.3 Corrected Calcium 10.3 H Phosphorus 5.4 H Magnesium 1.8 Total Bilirubin 0.2 L AST 35 H ALT 29 Alkaline Phosphatase 123 H Total Protein 7.1 Albumin 4.3 Globulin 2.8 Albumin/Globulin Ratio 1.5 ABG Interpretation ABG results: 05/09/25 05/09/25 05/09/25 11:56 13:40 18:50 ABG pH 7.40 7.27 L D 7.28 L ABG pCO2 40 43 55 H D ABG pO2 131 H 53 L* D 70 L ABG HCO3 25 20 26 ABG O2 Saturation 99 H 81 L 92 ABG Base Excess 0 -7 L -2 VBG pH VBG pCO2 VBG pO2 VBG Base Excess 05/10/25 05/11/25 05/12/25 00:14 05:06 01:18 ABG pH 7.35 7.33 L 7.39 ABG pCO2 42 D 54 H D 48 ABG pO2 103 D 93 94 ABG HCO3 23 28 H 29 H ABG O2 Saturation 99 H 98 98 ABG Base Excess -3 2 3 VBG pH VBG pCO2 VBG pO2 VBG Base Excess 05/12/25 05/12/25 05/13/25 03:58 11:50 05:10 ABG pH 7.46 H 7.39 7.19 L* D ABG pCO2 41 48 60 H D ABG pO2 105 58 L* D 114 H D ABG HCO3 29 H 29 H 23 ABG O2 Saturation 99 H 90 L 98 ABG Base Excess 5 H 4 H -6 L VBG pH VBG pCO2 VBG pO2 VBG Base Excess 05/17/25 05/18/25 05/19/25 01:30 04:09 04:43 ABG pH 7.38 7.43 7.47 H ABG pCO2 46 44 43 ABG pO2 90 83 80 L ABG HCO3 27 H 29 H 31 H ABG O2 Saturation 98 97 97 ABG Base Excess 2 5 H 7 H VBG pH VBG pCO2 VBG pO2 VBG Base Excess 05/21/25 05/21/25 05/31/25 04:18 06:33 08:06 ABG pH 7.37 D 7.46 H ABG pCO2 50 H 38 D ABG pO2 40 L* D 121 H D ABG HCO3 29 H 27 H ABG O2 Saturation 66 L 100 H ABG Base Excess 3 3 VBG pH 7.55 VBG pCO2 31 L VBG pO2 144 H VBG Base Excess 5 H 06/05/25 06/05/25 06/06/25 13:37 23:46 05:20 ABG pH 7.47 H 7.45 ABG pCO2 35 38 ABG pO2 200 H 54 L* D ABG HCO3 25 26 ABG O2 Saturation 101 H 89 L ABG Base Excess 2 2 VBG pH 7.50 VBG pCO2 34 L VBG pO2 90 H VBG Base Excess 4 H 06/10/25 17:41 ABG pH ABG pCO2 ABG pO2 ABG HCO3 ABG O2 Saturation ABG Base Excess VBG pH 7.40 VBG pCO2 43 VBG pO2 43 VBG Base Excess 2 Quality Measures Quality Measures VTE prophylaxis (SCDs) and sepsis Current suspected stage: ruled out Possible source: pulmonary Blood cultures ordered: yes Antibiotic ordered: No Assessment & Plan Assessment Current Active Medications: Generic Name Dose Route Start Last Admin Trade Name Freq PRN Reason Stop Dose Admin Acetaminophen 325 mg 06/16/25 16:18 06/19/25 08:27 Acetaminophen Racquel 325 Mg/10 Ml Udc GT 07/09/25 16:12 325 mg On Hold: 06/19/25 09:00 Q4HR PRN Administration pain (1-3) or fever > 100.4 Clonazepam 0.5 mg 06/19/25 21:00 06/20/25 08:06 Clonazepam 0.5 Mg Tablet GT 06/24/25 20:59 0.5 mg BID KYA Administration Deutetrabenazine 9 mg 06/14/25 08:00 06/19/25 08:25 Deutetrabenazine 6 Mg Tablet (Non-Formulary) GT 07/14/25 07:59 9 mg On Hold: 06/19/25 09:01 BIDWM KYA Administration Ferrous Sulfate 325 mg 06/01/25 09:00 06/19/25 08:29 Ferrous Sulfate 300 Mg/5 Ml Udc PO 07/01/25 08:59 325 mg On Hold: 06/19/25 09:01 QOD KYA Administration Heparin Sodium (Porcine) 5,000 unit 06/08/25 14:00 06/20/25 05:10 Heparin Sod Inj 5000 Unit/Ml Vial SC 06/22/25 13:59 5,000 unit Q8HR KYA Administration Dexmedetomidine/Sodium Chloride 400 mcg in 100 mls @ 3.27 mls/hr 06/19/25 09:42 06/20/25 10:25 Precedex Ivpb IV 07/19/25 09:01 0 mcg/kg/hr .Q24H PRN 0 mls/hr Per PROTOCOL Titration Protocol 0.2 MCG/KG/HR Ibuprofen 100 mg 06/15/25 15:47 06/18/25 16:17 Ibuprofen Susp 100 Mg/5 Ml Udc GT 07/15/25 15:46 100 mg On Hold: 06/19/25 09:01 Q6HR PRN Administration PAIN 1-3 OR FEVER > 101 Protocol Levetiracetam 500 mg 06/16/25 21:00 06/20/25 08:03 Levetiracetam Liqd 500 Mg/5 Ml Udc GT 07/16/25 20:59 500 mg BID KYA Administration Sterile Water 10 ml 06/14/25 17:30 06/19/25 08:27 Water, Sterile Inj 50 Ml Vial GT 07/14/25 17:29 10 ml On Hold: 06/19/25 09:02 BIDWM KYA Administration Protocol Plan 25-year-old male with history of cerebral palsy, asthma, seizure disorder, chronic mastoiditis, recurrent pneumonia, and chronic PEG tube dependence presented on 05/08/2025 with fever and seizure, was admitted for sepsis workup, and later transferred to the ICU on 05/09/25 for increased agitation, tachypnea, and increased secretions with recurrent fevers. Was downgraded on 05/31/25 due to resolution of fever for at least 48 hours however was upgraded back on 06/05/25 due to increased work of breathing, ventilator asynchrony agitation and fever. Patient was downgraded on 06/12 due to stable condition on pressure support with improvement of agitation and lack of fever over 24 hours. ICU team was consulted for recurrent fevers of unknown origin. NEURO #Agitation Differential diagnosis: ICU acquired delirium, opiate withdrawal, delirium Diagnostic workup: - Patient was weaned off of sedation and was downgraded to telemetry, however as sedatives were down titrated and telemetry patient had episode of severe agitation and ventilator asynchrony and was upgraded to ICU for further intervention. - EEG 05/11 unremarkable. Repeat EEG 05/20 showed electrographic seizure activity. Continuous EEG 05/22-05/23: no seizure activity or status epilepticus. Repeat EEG 06/05 negative for seizure activity. - MRI brain 05/23: showed chronic infections, no acute pathology. - Cisatracurium gtt discontinued - Versed gtt discontinued Treatment: - Discontinued Phenobarbital 129.6 mg three times daily - Continue Clonazepam to 0.5 mg twice daily - Discontinued Oxycodone 10 mg three times daily - Precedex drip discontinued Patient should be evaluated prior to giving any medication for agitation or tachycardia to ensure that patient is having any symptoms of possible withdrawal prior to administering medication. Also should not have any standing orders or PRNs. #Tardive dyskinesia Diagnostic workup: - Nonpurposeful twisting movements of the patient's upper extremity with recurrent grimaces noted on 06/10 when the patient was taken off sedation - Patient's family notes that the patient has had a long history of nonpurposeful movement and has been previously prescribed deutetrabenazine for management by his neurologist Treatment: - Hold home Seroquel 50 mg in the morning and 100 mg at night due to tardive dyskinesia - Discontinued Deutetrabenazine 9 mg twice daily -Off precedex drip, will reevaluate for worsening movements Patient should be evaluated prior to giving any medication for agitation or tachycardia to ensure that patient is having any symptoms of possible withdrawal prior to administering medication. Also should not have any standing orders or PRNs. #Seizure disorder by history #Cerebral palsy by history Diagnostic workup: - Active seizure disorder ruled out, multiple EEGs negative for seizure activity Treatment: - Continue Keppra 750 mg GT twice daily CARDIO #Sinus tachycardia Differential diagnosis: Infection, hypersympathetic activity Diagnostic workup: - Did have positive sputum and urine culture for Pseudomonas and ESBL respectively - Patient's last fever was 06/06/2025 04:36 - Echocardiogram was obtained to rule out any vegetations TTE shows normal systolic function, EF 55 to 60%, diastolic dysfunction grade 1, no evidence of vegetation or endocarditis Treatment: - Discontinued propranolol 10 mg to 5 mg 3 times daily PULM #Mucus plugs, right upper lung and left lower lung, Resolved #Mechanical ventilation #Chronic respiratory failure status post tracheostomy 05/26 Currently on PS Diagnostic workup: - Patient failed extubation during the hospitalization on 05/12, was reintubated overnight 05/13. - Unable to wean patient off ventilator, tracheostomy performed 05/26/2025, sutures removed 06/06/2025 - Patient underwent bronchoscopies 05/14, 05/17 and 06/05 for increased secretions - Currently on PS, will keep PS overnight Treatment: - Monitor SpO2, goal greater than 92 - Continue mechanical ventilation on PS Follow-up: - On blow by #Asthma by history Diagnostic workup: - Patient has history of asthma on montelukast, albuterol as needed at home Treatment: - Currently on blow by GI #Chronic PEG tube dependence Differential diagnosis: Chronic dysphagia likely in setting of cerebral palsy Diagnostic workup: - Patient was previously on Jevity 1.5, switched to Nepro due to hyperphosphatemia. Treatment: - Nepro trickle feeds, advance as tolerated Follow-up: - Will switch to bolus feeds as home regimen NEPHRO #Elevated alkaline phosphatase, improving #Low PTH #Abnormal nuclear medicine bone scan Differential diagnosis: increased osteoblastic activity in setting of vegetative state, bone infection (particularly of left mastoid), hypoparathyroidism, osteoarthritis Diagnostic workup: - PTH intact low at 3.6, calcium 9.9, vitamin D 25-OH 18.1 - Renal function intact, at baseline - Nuclear medicine bone scan shows minor asymmetric uptake left knee and mild increased uptake mid left tibia - Knee x-ray 06/06 and tibia-fibula x-ray 06/06 showed no findings diagnostic for osseous metastatic disease - MRI left leg 06/08 images severely degraded by continuous patient motion - No pain to palpation of bilateral lower extremities Treatment: - Discontinue sevelamer 800 mg 3 times daily URO #Phimosis s/p dorsal slit procedure 06/08/2025 #Paraphimosis (resolved) #Balanitis (resolved) Diagnostic workup: - Edema and tenderness of the glans penis, Swelling of the distal retracted foreskin, Constricting band of tissue proximal to the head of the penis at the coronal sulcus on presentation, s/p reduction of the paraphimosis by urologist Dr. Vargas on 05/09. - Patient has somewhat retractable foreskin, has good urine output, no swelling noted, has external catheter draining well - Urologist Dr. Vargas performed dorsal slit procedure on 06/08 Treatment: - Follow up if need of additional pain control medication HEME #Acute nonocclusive thrombus in the left brachial vein Diagnostic workup: - Venous doppler study of upper extremities 05/16: Normal right upper extremity deep venous system. Positive for nonocclusive thrombus in the left brachial vein. - Per chart review and patient's parents, patient does not have history of clots. - Given patient's inability to safely engage and risk of continued trauma to buccal mucosa by biting will not do full dose anticoagulation given increased risk of bleeding Treatment: - Heparin loading dose and ggt. Lovenox to heparin due to heparin?s shorter half-life, which allows for more rapid cessation in the event of bleeding, a shorter half life and can be stopped if bleeding occurs. - Stopped heparin ggt due to hematuria on 05/18. - Restarted Lovenox 05/31 for tx of primary upper extremity deep vein thrombosis, anticoagulation should be continued for a minimum of three months following the initial thrombotic event, but given patient is high risk to buccal mucosa trauma will not pursue therapeutic dose as high risk of bleeding. Transitioned to heparin SC every 8 hours. Follow-up: - Heparin SC every 8 hours for DVT prophylaxis #Normocytic Anemia Differential diagnosis: Anemia of chronic disease, nutritional anemia, iatrogenic Diagnostic workup: - Likely multifactorial, currently not an active concern Treatment: - Monitor CBC, transfuse if hemoglobin less than 7 ENDO #No active problems Integumentary #Tongue Laceration, traumatic #Gingivial Bleeding, Oral Trauma Diagnostic workup: -Known to have episodes of jaw spasms and teeth clenching with agitation. Had significant trauma to gums and tongue due to clenching of teeth 06/06 - No further bleeding appreciated in oral mucosa Treatment: - Patient required cisatracurium to relax jaw, pressure was applied locally, oral packing none, injections of lido?epinephrine x 3 to gums on 06/06 night Follow-up: - Monitor for bleeding ID #Fever of unknown origin Differential diagnosis: More likely medication side effect, less likely infectious cause Diagnostic workup: - Repeat chest x-ray obtained 06/17 in AM negative for acute findings - CT chest/abdomen/pelvis ordered to identify any occult causes for fever of unknown origin showed no infectious source - ID has been consulted, who notes that recurrent fevers are more likely medication related and unlikely infection related, recommended cessation of antibiotics Treatment: Discontinued all medications except what patient received at home since he had not had fevers at home. Discontinued precedex drip and will assess for any further fevers or worsened tachycardia/movements Patient should be evaluated prior to giving any medication for agitation or tachycardia to ensure that patient is having any symptoms of possible withdrawal prior to administering medication. Also should not have any standing orders or PRNs. #Bilateral chronic mastoiditis #Sinusitis #Bilateral otitis media #Bilateral otitis externa #Brittney parapsilosis #UTI, E.coli, ESBL #Pseudomonas aeruginosa, sputum positive ? -History of chronic mastoiditis. -Met SIRS criteria on admission: T 105F, HR 176, RR 26, PaCO2 26, WBC 16.3. -Head CT (05/08/2025): prominent sphenoid ethmoid maxillary antral sinusitis, bilateral chronic mastoiditis, bilateral otitis media. -CT Orbit Sella Inner (05/08/2025): severe bilateral chronic mastoiditis, bilateral otitis externa and otitis media, bilateral cholesteatomas in the attics. -CXR (05/09/2025): Bilateral Perihilar Pneumonia. CXR (05/13/2025): Extensive Bilateral Pneumonia, CXR(05/19/2025): Significant bilateral Pneumonia -CT Chest/abd/pelvis (05/16/2025): Extensive bilateral pneumonia, Cystitis pattern, Cholelithiasis -A repeat Cocci serology test was negative -Lumbar puncture(05/10/2025): clear, WBC 3, glucose 70, total protein 25. CSF testing negative. -Respiratory viral panel (05/10/2025): rhinovirus/enterovirus and human metapneumovirus detected. -UA 05/08 and 05/16 negative. [Culture Hx] -1st Blood Cx (05/08): No growth for 5 days. 2nd Blood Cx (05/11): No growth for 5 days, 3rd Blood Cx (05/16): No growth for 5 days, 4th Blood Cx (06/01): No growth for 48hrs -1st Sputum Cx (05/09): Pseudomonas aeruginosa (only sensitive to Meropenem, Tobramycin). 2nd Sputum Cx (05/13): Mixed oral hamilton. 3rd Sputum Cx (05/19): Mixed oral hamilton, 4th Sputum Cx (05/20): Brittney albicans, 5th Sputum Cx (06/01): GNR -CSF Cx (05/10): No growth for 3 days -Left Ear Cx (05/12): Brittney parapsilosis -Right Ear Cx(05/12): E.coli, ESBL (only sensitive to Ertapenem, Meropenem, Zosyn) -Urine Cx (06/01): E.coli, ESBL (only sensitive to Ertapenem, Meropenem, Nitrofurantoin, Zosyn) -Sputum culture 06/05 shows sensitive to Zosyn and intermittent resistance to cefepime [Antibiotics/Antifungal Hx] IV Zosyn 3.375g x1 (at 05/08) IV Ceftriaxone 1g x1 (at 05/08) IV Acyclovir 640mg q8hr (05/08-05/11) since LP negative. IV Ceftriaxone 2g q12hr (05/08-05/11) IV Vancomycin qd (05/08-05/11) since MRSA screen is negative Ofloxacin Opt racquel 0.3% 5 drops Both ears bid (05/09-05/18, 05/21-05/31) IV Meropenem 1000mg q8hr (05/12-05/22, 05/24-05/25) IV Doxycycline (05/16-05/18) IV Micafungin 100mg qd (05/28-05/30, 06/01-06/03) Ciprofloxacin Op Racquel 0.3% ear drops (06/02-06/03) -CXR is showing pneumonia, but CXR often remain abnormal for days to weeks. The infiltrate or consolidation can persist even though the infection has cleared. The radiographic improvement can take up to 4-6 weeks.? Patient is on minimal ventilator setting, oxygen requirement is stable, and has completed antibiotics course. -UTI unlikely sources of infection given low number of colonies and long antibiotics treatment in ICU. -Per ENT, Dr. Ojeda, patient does not have acute coalescent mastoiditis in either ear. Left and right middle ear is also not filled with effusion. -Chest x-ray 06/07 AM, showed a left lower lobe consolidation, ddx left lower lobe pneumonia versus mucous plug versus left pleural effusion versus mucous plug versus atelectasis lung ultrasound at bedside, effusion ruled out, no hepatization of the lung noted. Bedside bronchoscopy showed left lower lobe mucous plug, cleared with deep suction Treatment: - Recommend discontinuation of antibiotics at this time Previous treatments: IV Zosyn 4.5 g q8hr (06/05 - 06/16) IV Zosyn 3.375g x1 (at 05/08) IV Ceftriaxone 1g x1 (at 05/08) IV Acyclovir 640mg q8hr (05/08-05/11) IV Ceftriaxone 2g q12hr (05/08-05/11) IV Vancomycin qd (05/08-05/11) since MRSA screen is negative IV Meropenem 1000mg q8hr (05/12-05/22, 05/24-05/25) IV Doxycycline (05/16-05/18) IV Micafungin 100mg qd (05/28-05/30, 06/01-06/03) IV fluconazole 06/05-06/07 MSK #No active problems SKIN #No active problems Disposition: Downgrade to Tele in the afternoon if stable and keep current medications only. Diet: Nepro 1.8 Christ 1L RTH and Pro Stat Sugar Free 30 ml GI prophylaxis: not indicated DVT prophylaxis: SCDs, [id number] SC BID due to bleeding CODE STATUS: Full code Case disclosed with Attending Dr. Salbador Easton PGY2 Disclaimer: Even though this this note was dictated by speech recognition and even though it was carefully revised there may still be minor errors in machine operator assistant due to voice recognition software. Attending Provider Attestation/Addendum pt seen and examined, d/w resident team. Patient was transferred from the floor to the ICU for Precedex drip yesterday. All meds were DC'd. He has been afebrile for the last 24 hours. This morning he is off pressor support and on blow-by and doing well. Today will stop Precedex drip and evaluate. Given the amount of meds that he has been on in house for the last couple of weeks patient may have a component of withdrawal. When the Precedex was DC'd the patient became slightly more tachycardic and diaphoretic therefore suspicion for withdrawal. Given low-dose Versed without any significant change. For agitation we will trial a one-time dose of Geodon. The patient's agitation is likely multifactorial and due to unfamiliarity with his surroundings in part. Case discussed with ICU team labs, imaging and records reviewed Approximately 40 minutes required evaluation, exam, review, intervention, discussion formation and plan of care
[2025-06-20] MEDS: MIDAZOLAM INJ 1 MG/ML VIAL 2 ML 0.5 MG IVP (12:22)
[2025-06-20] MEDS: ZIPRASIDONE 20 MG CAPSULE PO (13:27)
--- NOTE | 2025-06-20 14:42 | PD.RESEVENT ---
Documentation for date of: 06/20/25 Event Note Event Note: After Precedex drip was discontinued patient did become a little bit more tachycardic and agitated and given that he was diaphoretic he was given Geodon 20 mg x 1, but no improvement in patient's tachycardia or agitation therefore it was decided to give patient 100 mg of Seroquel that he used to take at home to see if it improved, but again did not improve significantly. Patient also received additional Dilaudid 0.5 and Versed 0.5 mg x 1 each with no significant improvement in patient's heart rate. Patient's heart rate went into the 180s at this time Ativan was given by the medical floor team. Still no improvement in heart rate after this and Seroquel 50 mg x 1 was given. If this does not improve would likely give patient Haldol 5 mg x 1.
--- NOTE | 2025-06-20 15:44 | PC.SS ---
Update: Patient has been downgraded from ICU. Patient on blowby. Heart rate remains elevated. Continue to wean down medications. Fever still present.
[2025-06-20] MEDS: HYDROmorphone INJ 2 MG/ML VIAL 0.5 MG IVP ×2 (16:05→17:19)
[2025-06-20] MEDS: LORazepam 2 MG/ML VIAL IVP (16:17)
--- NOTE | 2025-06-20 16:26 | ESPR_ITS ---
<Statement entered by Robert Cross MD - 06/21/25 05:27> Patient was seen and examined at bedside. I agree on the assessment and plan on this note as documented by resident Dr Jose R Rain DO PGY1. 25-year-old male with past medical history as below has had a prolonged hospital course, was downgraded from ICU today after patient was upgraded for management of fever of unknown origin and ICU acquired delirium/agitation, in the ICU patient was started on Precedex drip was weaned off of phenobarbital and oxycodone currently only on clonazepam twice daily, all other medications were discontinued patient was given Seroquel which was home medication. Antibiotic treatment was completed prior to ICU upgrade. Patient continues to have episodes of agitations in which she gets tachycardic at heart rate 180s otherwise stable on blow-by, was weaned off of mechanical ventilator in ICU as well. Continues to have increased secretions will suction as needed. Patient is stable for downgrade to telemetry, family is involved regarding further placement which will likely be LTAC however family is hesitant for LTAC placement, will reconsider subacute placement if patient condition improves. Case discussed with attending Dr. Neva Moreno MD PGY-2 Documentation for date of: 06/20/25 Subjective Subjective Interval history: Patient was downgraded from ICU on 06/20/2025. Patient is crrently afebile, though has had intermittent fever spikes. He remains tachycardic to 176 bpm. He has received extensive IV antibiotics regime throughout stay. Blood cultures are negative to date. Bilateral otitis media and externa have been treated per ENT recommendations. At this time, no clear infectious source has been identified. Patient's clinical presentation unlikely from infection. Suspect dysautonomia related to underlying cerebral palsy as a contributing factor, along with agitation and hospital acquired delirium in the setting of extensive benzodiazepine and sedative use through ICU stay. Exam Vital Signs Temp Pulse Resp BP Pulse Ox O2 Del Method O2 Flow Rate 99.8 F 176 H 27 H 139/95 H 87 L Trach Collar 6 06/20/25 16:00 06/20/25 16:00 06/20/25 16:00 06/20/25 16:00 06/20/25 16:11 06/20/25 04:00 06/20/25 07:17 FiO2 30 06/20/25 16:00 Narrative Exam Gen: Nonpurposeful movements, trached on blow by HEENT: NCAT, EOMI, Pupils reactive KARLO, not icteric, external ears normal. No rhinorrhea. Moist mucous membranes with no visible blood. Neck: Supple, full range of motion, no observable masses, No meningeal sign. Lungs: Coarse breath sounds bilateral CV: tachycardic, no murmurs appreciated. Abdomen: Soft, nondistended, No rebound tenderness, PEG tube in place, peristalsis present. MSK: No lower extremity edema, no redness, peripheral pulses presents, Contracted hands, decreased tone Skin: No, petechiae, lesions, erythematous Neuro: Alert and moving extremitie, pupils reactive, nonpurposeful movements with facial grimacing. Objective Labs 06/20/25 04:48 06/20/25 04:48 Labs: Laboratory Results - last 24 hr 06/20/25 04:48 WBC 6.7 RBC 3.37 L Hgb 9.0 L Hct 29.1 L MCV 86 MCH 26.7 MCHC 30.9 L RDW Std Deviation 51.1 H Plt Count 477 H D Neut % (Auto) 36 L Lymph % (Auto) 34 [place] % (Auto) 19 H Eos % (Auto) 7 Baso % (Auto) 1 Neut # (Auto) 2.4 Lymph # (Auto) 2.3 [place] # (Auto) 1.2 H Eos # (Auto) 0.5 Baso # (Auto) 0.1 Immature Gran # (Auto) 0.17 H Absolute Nucleated RBC 0.00 Immature Gran % 3 H Nucleated RBC % 0 Sodium 140 Potassium 4.0 Chloride 102 Carbon Dioxide 24.0 Anion Gap 14 BUN 13 Creatinine 0.6 Estim Creat Clear Calc 141.9 eGFR > 60 BUN/Creatinine Ratio 22 H Glucose 94 Calculated Osmolality 279 Calcium 10.3 Corrected Calcium 10.3 H Phosphorus 5.4 H Magnesium 1.8 Total Bilirubin 0.2 L AST 35 H ALT 29 Alkaline Phosphatase 123 H Total Protein 7.1 Albumin 4.3 Globulin 2.8 Albumin/Globulin Ratio 1.5 ABG Interpretation ABG results: 05/09/25 05/09/25 05/09/25 11:56 13:40 18:50 ABG pH 7.40 7.27 L D 7.28 L ABG pCO2 40 43 55 H D ABG pO2 131 H 53 L* D 70 L ABG HCO3 25 20 26 ABG O2 Saturation 99 H 81 L 92 ABG Base Excess 0 -7 L -2 VBG pH VBG pCO2 VBG pO2 VBG Base Excess 05/10/25 05/11/25 05/12/25 00:14 05:06 01:18 ABG pH 7.35 7.33 L 7.39 ABG pCO2 42 D 54 H D 48 ABG pO2 103 D 93 94 ABG HCO3 23 28 H 29 H ABG O2 Saturation 99 H 98 98 ABG Base Excess -3 2 3 VBG pH VBG pCO2 VBG pO2 VBG Base Excess 05/12/25 05/12/25 05/13/25 03:58 11:50 05:10 ABG pH 7.46 H 7.39 7.19 L* D ABG pCO2 41 48 60 H D ABG pO2 105 58 L* D 114 H D ABG HCO3 29 H 29 H 23 ABG O2 Saturation 99 H 90 L 98 ABG Base Excess 5 H 4 H -6 L VBG pH VBG pCO2 VBG pO2 VBG Base Excess 05/17/25 05/18/25 05/19/25 01:30 04:09 04:43 ABG pH 7.38 7.43 7.47 H ABG pCO2 46 44 43 ABG pO2 90 83 80 L ABG HCO3 27 H 29 H 31 H ABG O2 Saturation 98 97 97 ABG Base Excess 2 5 H 7 H VBG pH VBG pCO2 VBG pO2 VBG Base Excess 05/21/25 05/21/25 05/31/25 04:18 06:33 08:06 ABG pH 7.37 D 7.46 H ABG pCO2 50 H 38 D ABG pO2 40 L* D 121 H D ABG HCO3 29 H 27 H ABG O2 Saturation 66 L 100 H ABG Base Excess 3 3 VBG pH 7.55 VBG pCO2 31 L VBG pO2 144 H VBG Base Excess 5 H 06/05/25 06/05/25 06/06/25 13:37 23:46 05:20 ABG pH 7.47 H 7.45 ABG pCO2 35 38 ABG pO2 200 H 54 L* D ABG HCO3 25 26 ABG O2 Saturation 101 H 89 L ABG Base Excess 2 2 VBG pH 7.50 VBG pCO2 34 L VBG pO2 90 H VBG Base Excess 4 H 06/10/25 17:41 ABG pH ABG pCO2 ABG pO2 ABG HCO3 ABG O2 Saturation ABG Base Excess VBG pH 7.40 VBG pCO2 43 VBG pO2 43 VBG Base Excess 2 Quality Measures Quality Measures VTE prophylaxis (SCDs) and sepsis Current suspected stage: ruled out Possible source: pulmonary Blood cultures ordered: yes Antibiotic ordered: No Assessment & Plan Assessment Current Active Medications: Generic Name Dose Route Start Last Admin Trade Name Freq PRN Reason Stop Dose Admin Acetaminophen 325 mg 06/16/25 16:18 06/19/25 08:27 Acetaminophen Enrique 325 Mg/10 Ml Udc GT 07/09/25 16:12 325 mg Q4HR PRN Administration pain (1-3) or fever > 100.4 Clonazepam 0.5 mg 06/19/25 21:00 06/20/25 08:06 Clonazepam 0.5 Mg Tablet GT 06/24/25 20:59 0.5 mg BID KYA Administration Heparin Sodium (Porcine) 5,000 unit 06/08/25 14:00 06/20/25 13:09 Heparin Sod Inj 5000 Unit/Ml Vial SC 06/22/25 13:59 5,000 unit Q8HR KYA Administration Levetiracetam 800 mg 06/20/25 21:00 Levetiracetam Liqd 500 Mg/5 Ml Udc GT 07/20/25 20:59 BID KYA Plan 24-year-old male with cerebral palsy, asthma, seizure disorder, chronic mastoiditis, recurrent pneumonia, and chronic PEG tube dependence presented with fever and seizure, was admitted for sepsis workup, and later transferred to the ICU for intubation due to concerns about airway protection. Patient has been downgraded from ICU to tele on 05/31/2025; however, re-upgraded to ICU on 06/05 due to tachycardia in 160s, tachypnea, persistent fever, and ventilator asynchrony. #Hospital acquired delirium #Agitation Differential diagnosis: ICU acquired delirium, opiate withdrawal, delirium Diagnostic workup: - Patient was weaned off of sedation and was downgraded to telemetry, however as sedatives were down titrated and telemetry patient had episode of severe agitation and ventilator asynchrony and was upgraded to ICU for further intervention. - EEG 05/11 unremarkable. Repeat EEG 05/20 showed electrographic seizure activity. Continuous EEG 05/22-05/23: no seizure activity or status epilepticus. Repeat EEG 06/05 negative for seizure activity. - MRI brain 05/23: showed chronic infections, no acute pathology. - Cisatracurium gtt discontinued - Versed gtt discontinued - Phenobarbital 129.6 discontinued - Oxycodone 10 mg discontinueded Treatment: - Continue Clonazepam 0.5 mg two times daily - Hold orders were added for respiratory rate <14, heart rate <70, or BP <100/60 for the above 3 meds #Tardive dyskinesia Diagnostic workup: - Nonpurposeful twisting movements of the patient's upper extremity with recurrent grimaces noted on 06/10 when the patient was taken off sedation - Patient's family notes that the patient has had a long history of nonpurposeful movement and has been previously prescribed deutetrabenazine for management by his neurologist - Per ICU, if deutetrabenazine remains ineffective, will increase to 12 mg twice daily after 1 week of starting the medication, may take up to 4 weeks to see maximal effect -Deutetrabenazine was discontinued in ICU, will continue to hold Treatment: -Consider resuming home dose Seroquel in a.m. #Sepsis #Bilateral chronic mastoiditis #Sinusitis #Bilateral otitis media #Bilateral otitis externa #Brittney parapsilosis #Community Acquired Pneumonia #UTI, E.coli, ESBL #Pseudomonas aeruginosa, sputum positive #Mucus plugs, right upper lung and left lower lung ? -History of chronic mastoiditis. -Met SIRS criteria on admission: T 105F, HR 176, RR 26, PaCO2 26, WBC 16.3. -Head CT (05/08/2025): prominent sphenoid ethmoid maxillary antral sinusitis, bilateral chronic mastoiditis, bilateral otitis media. -CT Orbit Sella Inner (05/08/2025): severe bilateral chronic mastoiditis, bilateral otitis externa and otitis media, bilateral cholesteatomas in the attics. -CXR (05/09/2025): Bilateral Perihilar Pneumonia. CXR (05/13/2025): Extensive Bilateral Pneumonia, CXR(05/19/2025): Significant bilateral Pneumonia -CT Chest/abd/pelvis (05/16/2025): Extensive bilateral pneumonia, Cystitis pattern, Cholelithiasis -A repeat Cocci serology test was negative -Lumbar puncture(05/10/2025): clear, WBC 3, glucose 70, total protein 25. CSF testing negative. -Respiratory viral panel (05/10/2025): rhinovirus/enterovirus and human metapneumovirus detected. -UA 05/08 and 05/16 negative. -06/17 Chest x-ray negative. CTAP negative [Culture Hx] -1st Blood Cx (05/08): No growth for 5 days. 2nd Blood Cx (05/11): No growth for 5 days, 3rd Blood Cx (05/16): No growth for 5 days, 4th Blood Cx (06/01): No growth for 48hrs -1st Sputum Cx (05/09): Pseudomonas aeruginosa (only sensitive to Meropenem, Tobramycin). 2nd Sputum Cx (05/13): Mixed oral hamilton. 3rd Sputum Cx (05/19): Mixed oral hamilton, 4th Sputum Cx (05/20): Brittney albicans, 5th Sputum Cx (06/01): GNR -CSF Cx (05/10): No growth for 3 days -Left Ear Cx (05/12): Brittney parapsilosis -Right Ear Cx(05/12): E.coli, ESBL (only sensitive to Ertapenem, Meropenem, Zosyn) -Urine Cx (06/01): E.coli, ESBL (only sensitive to Ertapenem, Meropenem, Nitrofurantoin, Zosyn) -Sputum culture 06/05 shows sensitive to Zosyn and intermittent resistance to cefepime [Antibiotics/Antifungal Hx] IV Zosyn 3.375g x1 (at 05/08) IV Ceftriaxone 1g x1 (at 05/08) IV Acyclovir 640mg q8hr (05/08-05/11) since LP negative. IV Ceftriaxone 2g q12hr (05/08-05/11) IV Vancomycin qd (05/08-05/11) since MRSA screen is negative Ofloxacin Opt enrique 0.3% 5 drops Both ears bid (05/09-05/18, 05/21-05/31) IV Meropenem 1000mg q8hr (05/12-05/22, 05/24-05/25) IV Doxycycline (05/16-05/18) IV Micafungin 100mg qd (05/28-05/30, 06/01-06/03) Ciprofloxacin Op Enrique 0.3% ear drops (06/02-06/03) -CXR is showing pneumonia, but CXR often remain abnormal for days to weeks. The infiltrate or consolidation can persist even though the infection has cleared. The radiographic improvement can take up to 4-6 weeks.? Patient is on minimal ventilator setting, oxygen requirement is stable, and has completed antibiotics course. -UTI unlikely sources of infection given low number of colonies and long antibiotics treatment in ICU. -Per ENT, Dr. Ojeda, patient does not have acute coalescent mastoiditis in either ear. Left and right middle ear is also not filled with effusion. -Chest x-ray 06/07 AM, showed a left lower lobe consolidation, ddx left lower lobe pneumonia versus mucous plug versus left pleural effusion versus mucous plug versus atelectasis lung ultrasound at bedside, effusion ruled out, no hepatization of the lung noted. Bedside bronchoscopy showed left lower lobe mucous plug, cleared with deep suction Plan: IV Zosyn 06/05-06/18 for 14-day course coverage of Pseudomonas IV Zosyn 3.375g x1 (at 05/08) IV Ceftriaxone 1g x1 (at 05/08) IV Acyclovir 640mg q8hr (05/08-05/11) IV Ceftriaxone 2g q12hr (05/08-05/11) IV Vancomycin qd (05/08-05/11) since MRSA screen is negative IV Meropenem 1000mg q8hr (05/12-05/22, 05/24-05/25) IV Doxycycline (05/16-05/18) IV Micafungin 100mg qd (05/28-05/30, 06/01-06/03) IV fluconazole 06/05-06/07 Follow-up: - Once weaned off sedation and patient has cough reflex intact and more awake/alert, will consider chest physiotherapy. #Phimosis s/p dorsal slit procedure 06/08/2025 #Paraphimosis (resolved) #Balanitis (resolved) Diagnostic workup: - Edema and tenderness of the glans penis, Swelling of the distal retracted foreskin, Constricting band of tissue proximal to the head of the penis at the coronal sulcus on presentation, s/p reduction of the paraphimosis by urologist Dr. Vargas on 05/09 and phimosis dorsal slit on 06/08 Treatment: Daily. - Monitor for worsening swelling, bleeding, or blockage of urine #Seizure disorder by history #Cerebral palsy by history Diagnostic workup: - Active seizure disorder ruled out, multiple EEGs negative for seizure activity Treatment: - Hold Depakote 250 mg GT every 8 hours and Continue Keppra 500 mg GT twice daily #Sinus tachycardia Differential diagnosis: Infection, hypersympathetic activity Diagnostic workup: - Did have positive sputum and urine culture for Pseudomonas and ESBL respectively - Patient's last fever was 06/12/2025 05:46 - Echocardiogram was obtained to rule out any vegetations TTE shows normal systolic function, EF 55 to 60%, diastolic dysfunction grade 1, no evidence of vegetation or endocarditis Treatment: -Propranolol discontinued - Continue antibiotics - Monitor for fever, use ibuprofen as needed for fever episode - Telemetry monitoring #Elevated alkaline phosphatase, improving #Low PTH #Abnormal nuclear medicine bone scan Differential diagnosis: increased osteoblastic activity in setting of vegetative state, bone infection (particularly of left mastoid), hypoparathyroidism, osteoarthritis Diagnostic workup: - PTH intact low at 3.6, calcium 9.9, vitamin D 25-OH 18.1 - Renal function intact, at baseline - Nuclear medicine bone scan shows minor asymmetric uptake left knee and mild increased uptake mid left tibia - Knee x-ray 06/06 and tibia-fibula x-ray 06/06 showed no findings diagnostic for osseous metastatic disease - MRI left leg 06/08 images severely degraded by continuous patient motion - No pain to palpation of bilateral lower extremities Plan: - discontinued sevelamer, consider resuming in a.m. - Patient to follow up on abnormal imaging outpatient #Tongue Laceration, traumatic #Gingivial Bleeding, Oral Trauma Diagnostic workup: -Known to have episodes of jaw spasms and teeth clenching with agitation. Had significant trauma to gums and tongue due to clenching of teeth 06/06 - No further bleeding appreciated in oral mucosa Treatment: - Patient required cisatracurium to relax jaw, pressure was applied locally, oral packing none, injections of lido?epinephrine x 3 to gums on 06/06 night Follow-up: - Monitor for bleeding #Bronchospasm #History of asthma -Magnesium for bronchodilator effect as needed. -Albuterol and Ipratropium as needed. #Failed extubation 05/12 #Acute hypoxic respiratory failure s/p tracheostomy #Ventilator dependent -Patient underwent tracheostomy on 05/26/2025 -Chest physiotherapy daily #Chronic PEG tube dependence -Nepro 1.8 Christ 1L RTH -Pro Stat Sugar Free 30 ml #Hyperphosphatemia -Sevelamer 1g GT 2 times daily, adjust if needed, being held #Normocytic Anemia #Leukocytosis-Resolving #Maculopapular rash to the buttocks-Resolving #Acute urinary retention-Resolved #Hypoalbuminemia-Resolved #Hyperkalemia-Resolved #Acute kidney injury-Resolved #Anion Gap Metabolic Acidosis-Resolved #Acute nonocclusive thrombus in the left brachial vein-Resolved Disposition: Tele Diet: Nepro 1.8 Christ 1L RTH and Pro Stat Sugar Free 30 ml GI prophylaxis: Lansoprazole 30mg GT qd DVT prophylaxis: SCDs,[id number] SC BID due to bleeding Code: FULL Assessment and plan discussed with my attending physician Dr. Rashid and Dr. Cross (PGY-2) Dr. Rain (PGY-1) - Internal medicine resident Attending Provider Attestation/Addendum Vin, Neva Rashid, , attest that I was physically present for the luke portions of the service and evaluated the patient with the resident and I reviewed and discussed the case with the resident and agree with the resident's findings and plans of care as documented above Patient seen and evaluated this afternoon. Patient has been downgraded from the ICU. Patient had been placed on Precedex drip and most medications were discontinued due to concern for drug induced fever. Patient had been afebrile throughout the night. Keppra and clonazepam were continued. However, patient has been tachycardic and more agitated as sedation wore off. Geodon was given without improvement of agitation. Seroquel was restarted. Infectious workup has been negative thus far. Suspect fever can also be neurogenic due to dysautonomia 2/2 cerebral palsy. Will f/u with neurology recommendations.
--- NOTE | 2025-06-20 20:04 | ESPR_ITS ---
Documentation for date of: 06/20/25 Subjective Subjective Interval history: Patient was seen and examined at bedside this AM. No acute events overnight. He was downgraded from ICU on 06/20/2025. Patient is has had intermittent fever spikes within the last 24 hours. He remains off of Depakote at this time. He was taken off of the Precedex drip around 6:30 AM on 06/20/2025; He has required repeated doses of Seroquel and other PRNs, with minimal efficacy Blood cultures remain negative to date. Bilateral otitis media and externa have been treated per ENT recommendations. Patient's clinical presentation unlikely from infection. Suspect dysautonomia related to underlying cerebral palsy as a contributing factor. LTAC willing to accept patient if on tetrabenazine, however must be afebrile for atleast 24 hours. Exam Vital Signs Temp Pulse Resp BP Pulse Ox O2 Del Method O2 Flow Rate 99.8 F 160 H 20 123/67 95 Trach Collar 6 06/20/25 16:00 06/20/25 19:04 06/20/25 19:04 06/20/25 18:57 06/20/25 18:57 06/20/25 04:00 06/20/25 19:04 FiO2 28 06/20/25 19:04 Narrative Exam Gen: Nonpurposeful movements, trached on blow by HEENT: NCAT, EOMI, Pupils reactive KARLO, not icteric, external ears normal. No rhinorrhea. Moist mucous membranes with no visible blood. Neck: Supple, full range of motion, no observable masses, No meningeal sign. Lungs: Coarse breath sounds bilateral CV: tachycardic, no murmurs appreciated. Abdomen: Soft, nondistended, No rebound tenderness, PEG tube in place, peristalsis present. MSK: No lower extremity edema, no redness, peripheral pulses presents, Contracted hands, decreased tone Skin: No, petechiae, lesions, erythematous Neuro: Alert and moving extremitie, pupils reactive, nonpurposeful movements with facial grimacing. Objective Labs 06/20/25 04:48 06/20/25 04:48 Labs: Laboratory Results - last 24 hr 06/20/25 04:48 WBC 6.7 RBC 3.37 L Hgb 9.0 L Hct 29.1 L MCV 86 MCH 26.7 MCHC 30.9 L RDW Std Deviation 51.1 H Plt Count 477 H D Neut % (Auto) 36 L Lymph % (Auto) 34 [place] % (Auto) 19 H Eos % (Auto) 7 Baso % (Auto) 1 Neut # (Auto) 2.4 Lymph # (Auto) 2.3 [place] # (Auto) 1.2 H Eos # (Auto) 0.5 Baso # (Auto) 0.1 Immature Gran # (Auto) 0.17 H Absolute Nucleated RBC 0.00 Immature Gran % 3 H Nucleated RBC % 0 Sodium 140 Potassium 4.0 Chloride 102 Carbon Dioxide 24.0 Anion Gap 14 BUN 13 Creatinine 0.6 Estim Creat Clear Calc 141.9 eGFR > 60 BUN/Creatinine Ratio 22 H Glucose 94 Calculated Osmolality 279 Calcium 10.3 Corrected Calcium 10.3 H Phosphorus 5.4 H Magnesium 1.8 Total Bilirubin 0.2 L AST 35 H ALT 29 Alkaline Phosphatase 123 H Total Protein 7.1 Albumin 4.3 Globulin 2.8 Albumin/Globulin Ratio 1.5 ABG Interpretation ABG results: 05/09/25 05/09/25 05/09/25 11:56 13:40 18:50 ABG pH 7.40 7.27 L D 7.28 L ABG pCO2 40 43 55 H D ABG pO2 131 H 53 L* D 70 L ABG HCO3 25 20 26 ABG O2 Saturation 99 H 81 L 92 ABG Base Excess 0 -7 L -2 VBG pH VBG pCO2 VBG pO2 VBG Base Excess 05/10/25 05/11/25 05/12/25 00:14 05:06 01:18 ABG pH 7.35 7.33 L 7.39 ABG pCO2 42 D 54 H D 48 ABG pO2 103 D 93 94 ABG HCO3 23 28 H 29 H ABG O2 Saturation 99 H 98 98 ABG Base Excess -3 2 3 VBG pH VBG pCO2 VBG pO2 VBG Base Excess 05/12/25 05/12/25 05/13/25 03:58 11:50 05:10 ABG pH 7.46 H 7.39 7.19 L* D ABG pCO2 41 48 60 H D ABG pO2 105 58 L* D 114 H D ABG HCO3 29 H 29 H 23 ABG O2 Saturation 99 H 90 L 98 ABG Base Excess 5 H 4 H -6 L VBG pH VBG pCO2 VBG pO2 VBG Base Excess 05/17/25 05/18/25 05/19/25 01:30 04:09 04:43 ABG pH 7.38 7.43 7.47 H ABG pCO2 46 44 43 ABG pO2 90 83 80 L ABG HCO3 27 H 29 H 31 H ABG O2 Saturation 98 97 97 ABG Base Excess 2 5 H 7 H VBG pH VBG pCO2 VBG pO2 VBG Base Excess 05/21/25 05/21/25 05/31/25 04:18 06:33 08:06 ABG pH 7.37 D 7.46 H ABG pCO2 50 H 38 D ABG pO2 40 L* D 121 H D ABG HCO3 29 H 27 H ABG O2 Saturation 66 L 100 H ABG Base Excess 3 3 VBG pH 7.55 VBG pCO2 31 L VBG pO2 144 H VBG Base Excess 5 H 06/05/25 06/05/25 06/06/25 13:37 23:46 05:20 ABG pH 7.47 H 7.45 ABG pCO2 35 38 ABG pO2 200 H 54 L* D ABG HCO3 25 26 ABG O2 Saturation 101 H 89 L ABG Base Excess 2 2 VBG pH 7.50 VBG pCO2 34 L VBG pO2 90 H VBG Base Excess 4 H 06/10/25 17:41 ABG pH ABG pCO2 ABG pO2 ABG HCO3 ABG O2 Saturation ABG Base Excess VBG pH 7.40 VBG pCO2 43 VBG pO2 43 VBG Base Excess 2 Quality Measures Quality Measures VTE prophylaxis (SCDs) and sepsis Current suspected stage: ruled out Possible source: pulmonary Blood cultures ordered: yes Antibiotic ordered: No Assessment & Plan Assessment Current Active Medications: Generic Name Dose Route Start Last Admin Trade Name Freq PRN Reason Stop Dose Admin Acetaminophen 325 mg 06/16/25 16:18 06/19/25 08:27 Acetaminophen Racquel 325 Mg/10 Ml Udc GT 07/09/25 16:12 325 mg Q4HR PRN Administration pain (1-3) or fever > 100.4 Clonazepam 0.5 mg 06/19/25 21:00 06/20/25 08:06 Clonazepam 0.5 Mg Tablet GT 06/24/25 20:59 0.5 mg BID KYA Administration Heparin Sodium (Porcine) 5,000 unit 06/08/25 14:00 06/20/25 13:09 Heparin Sod Inj 5000 Unit/Ml Vial SC 06/22/25 13:59 5,000 unit Q8HR KYA Administration Levetiracetam 800 mg 06/20/25 21:00 Levetiracetam Liqd 500 Mg/5 Ml Udc GT 07/20/25 20:59 BID KYA Plan 24-year-old male with cerebral palsy, asthma, seizure disorder, chronic mastoiditis, recurrent pneumonia, and chronic PEG tube dependence presented with fever and seizure, was admitted for sepsis workup, and later transferred to the ICU for intubation due to concerns about airway protection. Patient has been downgraded from ICU to tele on 06/16/2025 Fevers of unknown origin Tardive Dyskinesia Seizure disorder Hx of Cerebral palsy EEG 05/11 unremarkable. Repeat EEG 05/20 showed electrographic seizure activity. Continuous EEG 05/22-05/23: no seizure activity or status epilepticus. Repeat EEG 06/05 negative for seizure activity. MRI brain: no acute pathology. Recommendations: - Unable to do [place] 9mg BID because of LTAC limitations, will try tetrabenazine instead - Etiology behind fevers remains unclear. May hold valproic acid for now - Continue Keppra 750 mg GT twice daily adjusted to 500mg BID - Patient will need to be afebrile for at least 24 hours prior to discharge to LTAC - Continue with the current management with close monitoring for fever spikes. Chronic mastoiditis Hx of ESBL UTI Pseudomonas aeruginosa, sputum positive Mucus plugs, right upper lung and left lower lung ? Paraphimosis (resolved) Balanitis (resolved) Gingivial Bleeding, Oral Trauma Sever Asthma Maculopapular rash to the buttocks-Resolving - as per primary team Thank you for the consult. Neurology will continue to follow the case with you Plan of care discussed with attending Neurologist Dr Lang - Dk López M.D. PGY3 Disclaimer: Minor errors in electronic communications technician may be present as this note was dictated using voice recognition software. Attending Provider Attestation/Addendum I personally have seen and examined the patient at the bedside and agreed with the resident's findings, assessment and plan of care. Patient still has intermittent fever spikes, agitation and persistent involuntary movements/dyskinesia. Continue with current management and supportive care.
[2025-06-20] MEDS: HYDROmorphone INJ 2 MG/ML VIAL 1 MG IVP (20:39)
[2025-06-20] MEDS: ACETAMINOPHEN SOL 325 MG/10 ML UDC GT (20:56)
[2025-06-20] MEDS: MIDAZOLAM INJ 1 MG/ML VIAL 2 ML 2 MG IVP (21:03)
[2025-06-20] MEDS: levETIRAcetam LIQD 500 MG/5 ML UDC 800 MG GT (21:05)
[2025-06-21] VITALS (36 sets, daily range): BP systolic 104–172; BP diastolic 59–120; PULSE 121–158; RESP 18–51; TEMP 36.7–38.7; O2SAT 84–100; BMI 25.9
[2025-06-21] MEDS: HEPARIN SOD INJ 5000 UNIT/ML VIAL SC ×3 (05:43→22:26)
[2025-06-21] MEDS: HYDROmorphone INJ 2 MG/ML VIAL 1 MG IVP ×3 (06:12→17:02)
[2025-06-21] MEDS: Magnesium Sulfate 4 GM Ivpb 4 GM/50 ML BAG IV (06:21)
[2025-06-21] MEDS: MIDAZOLAM INJ 1 MG/ML VIAL 2 ML IVP (06:22)
[2025-06-21] MEDS: DIAZEPAM INJ 5 MG/ML VIAL 2 ML IVP (07:29)
--- NOTE | 2025-06-21 07:45 | PD.RESPRO ---
Documentation for date of: 06/21/25 Exam Vital Signs Temp Pulse Resp BP Pulse Ox O2 Del Method O2 Flow Rate 99.0 F 132 H 24 H 161/120 H 99 Trach Collar 8 06/21/25 04:00 06/21/25 06:24 06/21/25 06:24 06/21/25 06:10 06/21/25 06:24 06/20/25 04:00 06/21/25 06:24 FiO2 40 06/21/25 06:24 Objective Labs 06/20/25 04:48 06/20/25 04:48 ABG Interpretation ABG results: 05/09/25 05/09/25 05/09/25 11:56 13:40 18:50 ABG pH 7.40 7.27 L D 7.28 L ABG pCO2 40 43 55 H D ABG pO2 131 H 53 L* D 70 L ABG HCO3 25 20 26 ABG O2 Saturation 99 H 81 L 92 ABG Base Excess 0 -7 L -2 VBG pH VBG pCO2 VBG pO2 VBG Base Excess 05/10/25 05/11/25 05/12/25 00:14 05:06 01:18 ABG pH 7.35 7.33 L 7.39 ABG pCO2 42 D 54 H D 48 ABG pO2 103 D 93 94 ABG HCO3 23 28 H 29 H ABG O2 Saturation 99 H 98 98 ABG Base Excess -3 2 3 VBG pH VBG pCO2 VBG pO2 VBG Base Excess 05/12/25 05/12/25 05/13/25 03:58 11:50 05:10 ABG pH 7.46 H 7.39 7.19 L* D ABG pCO2 41 48 60 H D ABG pO2 105 58 L* D 114 H D ABG HCO3 29 H 29 H 23 ABG O2 Saturation 99 H 90 L 98 ABG Base Excess 5 H 4 H -6 L VBG pH VBG pCO2 VBG pO2 VBG Base Excess 05/17/25 05/18/25 05/19/25 01:30 04:09 04:43 ABG pH 7.38 7.43 7.47 H ABG pCO2 46 44 43 ABG pO2 90 83 80 L ABG HCO3 27 H 29 H 31 H ABG O2 Saturation 98 97 97 ABG Base Excess 2 5 H 7 H VBG pH VBG pCO2 VBG pO2 VBG Base Excess 05/21/25 05/21/25 05/31/25 04:18 06:33 08:06 ABG pH 7.37 D 7.46 H ABG pCO2 50 H 38 D ABG pO2 40 L* D 121 H D ABG HCO3 29 H 27 H ABG O2 Saturation 66 L 100 H ABG Base Excess 3 3 VBG pH 7.55 VBG pCO2 31 L VBG pO2 144 H VBG Base Excess 5 H 06/05/25 06/05/25 06/06/25 13:37 23:46 05:20 ABG pH 7.47 H 7.45 ABG pCO2 35 38 ABG pO2 200 H 54 L* D ABG HCO3 25 26 ABG O2 Saturation 101 H 89 L ABG Base Excess 2 2 VBG pH 7.50 VBG pCO2 34 L VBG pO2 90 H VBG Base Excess 4 H 06/10/25 17:41 ABG pH ABG pCO2 ABG pO2 ABG HCO3 ABG O2 Saturation ABG Base Excess VBG pH 7.40 VBG pCO2 43 VBG pO2 43 VBG Base Excess 2 Quality Measures Quality Measures VTE prophylaxis (SCDs) and sepsis Possible source: pulmonary Blood cultures ordered: yes Assessment & Plan Assessment Current Active Medications: Generic Name Dose Route Start Last Admin Trade Name Freq PRN Reason Stop Dose Admin Acetaminophen 325 mg 06/16/25 16:18 06/20/25 20:56 Acetaminophen Racquel 325 Mg/10 Ml Udc GT 07/09/25 16:12 325 mg Q4HR PRN Administration pain (1-3) or fever > 100.4 Clonazepam 0.5 mg 06/19/25 21:00 06/20/25 20:56 Clonazepam 0.5 Mg Tablet GT 06/24/25 20:59 0.5 mg BID KYA Administration Heparin Sodium (Porcine) 5,000 unit 06/08/25 14:00 06/21/25 05:43 Heparin Sod Inj 5000 Unit/Ml Vial SC 06/22/25 13:59 5,000 unit Q8HR KYA Administration Magnesium Sulfate 4 gm in 50 mls @ 12.5 mls/hr 06/21/25 06:14 06/21/25 06:21 Magnesium Sulfate Ivpb IV 06/21/25 10:13 12.5 mls/hr X1 ONE Administration Levetiracetam 800 mg 06/20/25 21:00 06/20/25 21:05 Levetiracetam Liqd 500 Mg/5 Ml Udc GT 07/20/25 20:59 800 mg BID KYA Administration
[2025-06-21] MEDS: levETIRAcetam LIQD 500 MG/5 ML UDC 800 MG GT ×2 (08:58→20:01)
--- NOTE | 2025-06-21 10:13 | PC.SS ---
Late note 06-20-25: SS received call from a escrow representative from [facility] who inquired if they are unable to wean pt off vent can family care for him at home with peg/trach/vent. Per escrow representative, they can teach family how to care for pt at home but pt requires 4 people. Security Technician is aware pt resides with mom and dad. Per escrow representative, he will reach out to patient's parents.
[2025-06-21] MEDS: KETOROLAC INJ 30 MG/ML VIAL IVP ×2 (12:05→19:25)
[2025-06-21] MEDS: ACETAMINOPHEN SOL 325 MG/10 ML UDC GT (12:11)
--- NOTE | 2025-06-21 12:22 | PC.NURSE ---
Dr. Rashid and Dr. Cross at bedside at 1200 06/21/2025 to assess patient. Both MDs made aware of patients elevated Blood pressure and heart rate. No further orders at this time
--- NOTE | 2025-06-21 13:28 | ESDS_ITS ---
<Statement entered by Neva Rashid DO - 06/22/25 15:29> I, Neva Rashid DO, attest that I was physically present for the luke portions of the service and evaluated the patient with the resident and I reviewed and discussed the case with the resident and agree with the resident's findings and plans of care as documented above Patient is a 25-year-old male with past medical history of chronic mastoiditis, asthma, seizure disorder, cerebral palsy and recurrent pneumonia, chronic PEG tube dependence who was brought to the ED due to fever and seizure. Patient was admitted initially on 05/08/2025. Over the course of hospitalization, patient has been treated for bilateral otitis media, otitis externa, sinusitis, Pseudomonas aeruginosa pneumonia, ESBL E. coli. Patient was intubated on 05/09 due to acute hypoxic respiratory failure and airway protection. He subsequently underwent tracheostomy on 05/26 due to inability to safely extubate patient. Patient also underwent lumbar puncture and all infectious causes for fever have been ruled out as patient continues to have persistent fever and agitation. Patient was initially placed on treatment due to concern for severe tardive dyskinesia. However, there was also concern for drug fever due to polypharmacy. Patient was placed on Precedex in the ICU and placed only on clonazepam and Keppra which patient has been taking chronically. Fevers improved as agitation improved. Medications have all been weaned off and patient is currently on blow-by. He continues to have fevers despite decrease in medications and agitation. Plan to transfer patient to higher level fo care for further neurological evaluation as pt continues to have fevers with persistent agitation and tachycardia, most likely 2/2 neurogenic causes. Patient is otherwise stable for transfer. Family agreeable to transfer. <Statement entered by Robert Cross MD - 06/21/25 17:54> Patient was seen and examined by me personally. I have reviewed the below documentation by the team resident and agree with its findings. Discharge plan was discussed with the attending, Dr. Neva Moreno MD Internal Medicine, PGY-2 Planned Discharge Date 06/21/25 DS: Providers Provider Date of admission: 05/08/25 10:02 Primary care physician: Tavares Cole MD Admitting Provider: Natasha Moreira MD Attending Provider on Admission: Natasha Moreira MD Consults: 05/08/25 11:18 Consult to Neurology / Tele-Neurology Stat Comment: Consulting Provider: Darryl Lang 05/08/25 14:57 Referral Wound Care Routine Comment: 05/09/25 08:08 Consult to Urology Routine Comment: Ph Consulting Provider: Rei Vargas 05/09/25 13:46 Referral Nutritional Services Routine Comment: Gtube dependant 05/09/25 14:04 Consult to Roll Panner Routine Comment: Hypoxia Consulting Provider: Jono Armendariz I 05/09/25 16:37 Referral Registered Dietitian Routine Comment: 05/24/25 14:37 Consult to General Surgery Routine Comment: Tracheostomy Consulting Provider: Marcello Jin 06/01/25 13:20 Consult to Infectious Diseases Urgent Comment: MICAFUNGIN RESTART Consulting Provider: John Rubio 06/17/25 09:41 Consult to Roll Panner Routine Comment: Consulting Provider: Katherine Siu 06/21/25 12:53 Referral - Indexer Routine Service Needed for Transfer: Neurology Addl Comments:: higher level of care, [place] Attending Provider on DC: Neva Rashid DO Discharging Provider: Neva Rashid DO DS: Diagnosis Problem List Completed Was Problem List Reviewed/Reconciled?: Yes Hospital Course Hospital Course Hospital course: Hospital Course: Mr. Baltazar is a 25-year-old male with past medical history of chronic mastoiditis , seizure disorder, recurrent pneumonia, cerebral palsy, chronic PEG tube anastomotic who was admitted to [facility] emergency department on 05/08/2025 with a chief complaint of fever for greater than 24 hours, was admitted for further workup for underlying sepsis was started on broad-spectrum antibiotics. Patient was upgraded to intensive care unit after multiple rapid responses for agitation and anxiety due to underlying significant pain from paraphimosis. Patient was intubated and upgraded to intensive care unit for airway protection. Patient had prolonged ICU course during which patient underwent tracheostomy for chronic respiratory failure after patient failed extubation. Patient was treated for underlying pneumonia, UTI and completed antibiotic treatment for the hospitalization course with infectious disease following the case. ENT was consulted for the hospitalization course, was evaluated by ENT no active infection identified, did complete treatment with enrico c suspension antibiotic/antifungal. Patient was downgraded from intensive care unit twice for management of ICU acquired delirium/agitation on multiple regimens requiring upgrade to ICU for continued fever and agitation. Neurology followed the patient throughout the hospitalization course, patient underwent multiple lumbar punctures, imaging including MRI and EEGs with fairly negative for workup. Drug fever was ruled out, serotonin syndrome/NMS/tardive dyskinesia was considered however was ruled out. Patient did undergo dorsal slit for paraphimosis by urology during the hospitalization. Eventually patient was downgraded after being weaned off of all medications on blow-by, currently patient on clonazepam taper and home dose Seroquel though still continues to have fever, per infectious disease patient does not have any underlying infectious source of fever, there is high suspicion of central fever for which patient needs higher level of care evaluation for extensive enrique rological workup which is not available at this facility. Transfer process initiated, patient is stable for transfer. Discharge diagnosis: #Hospital acquired delirium #Agitation #Sinus tachycardia #Bilateral chronic mastoiditis #Chronic respiratory failure status post tracheostomy on blow-by #Phimosis s/p dorsal slit procedure 06/08/2025 #Chronic PEG tube dependence #Seizure disorder by history #Cerebral palsy by history #Elevated alkaline phosphatase, improving #Low PTH, hyperphosphatemia #Abnormal nuclear medicine bone scan #Tongue Laceration, traumatic, resolved #Gingivial Bleeding, Oral Trauma, resolved #History of asthma #Failed extubation 05/12 #Normocytic Anemia #Leukocytosis-Resolving #Maculopapular rash to the buttocks-Resolving #Acute urinary retention-Resolved #Hypoalbuminemia-Resolved #Hyperkalemia-Resolved #Acute kidney injury-Resolved #Anion Gap Metabolic Acidosis-Resolved #Acute nonocclusive thrombus in the left brachial vein-Resolved #Tardive dyskinesia, ruled out #Sepsis, resolved #Chronic sinusitis #Bilateral otitis media #Bilateral otitis externa #Community Acquired Pneumonia, completed treatment #UTI, E.coli, ESBL, completed treatment #Pseudomonas aeruginosa, sputum positive, completed treatment #Mucus plugs, right upper lung and left lower lung status post bronchoscopy #Paraphimosis (resolved) #Balanitis (resolved) Assessment and plan discussed with my attending physician Dr. Rashid and Dr. Cross (PGY-2) Dr. Rain (PGY-1) - Internal medicine resident Status at Discharge Overall status at discharge: patient is progressing back to baseline Time Spent with Patient Time attestation: Total time spent providing and/or coordinating discharge services: Time spent: Greater than 30 minutes Exam Vital Signs Temp Pulse Resp BP Pulse Ox O2 Del Method O2 Flow Rate 101.6 F H 152 H 24 H 150/115 H 95 Trach Collar 8 06/21/25 12:11 06/21/25 12:38 06/21/25 12:38 06/21/25 12:01 06/21/25 12:38 06/20/25 04:00 06/21/25 06:24 FiO2 40 06/21/25 08:00 Narrative Exam Gen: Nonpurposeful movements, trached on blow by HEENT: NCAT, EOMI, Pupils reactive KARLO, not icteric, external ears normal. No rhinorrhea. Moist mucous membranes with no visible blood. Increased secretions noted. Neck: Supple, full range of motion, no observable masses, No meningeal sign. Lungs: Coarse breath sounds bilateral on blow-by CV: Sinus tachycardia, no murmurs appreciated. Abdomen: Soft, nondistended, No rebound tenderness, PEG tube in place, peristalsis present. Status post dorsal slit, no inflammation noted around penis MSK: No lower extremity edema, no redness, peripheral pulses presents, Contracted hands, decreased tone Skin: No, petechiae, lesions, erythematous. Some redness noted lower back. Neuro: Alert and moving extremitie, pupils reactive, nonpurposeful movements with facial grimacing. Discharge Plan Prescriptions/Referrals Prescriptions/Med Rec: No Action ofloxacin 0.3 % Dropperette 5 drp OTIC (EAR) BID Rx Instructions: 5 drops into the let ear two time a day for 1o days omeprazole 20 mg capsule,delayed release(DR/EC) 40 mg feeding tube DAILY Patient Comments: TOME 1 CAPSULA POR VIA ORAL 30 MINUTOS BEFORE MORNING MEAL ondansetron HCl 4 mg/5 mL solution 4 mg PO Q8H PRN (Reason: nausea and vomiting) Qty: 150 0RF valproic acid (as sodium salt) 250 mg/5 mL Solution 250 mg PO TID Qty: 473 0RF clonazepam 0.5 mg tablet 0.5 mg PO BID PRN (Reason: agitation ) Qty: 60 0RF quetiapine 50 mg tablet 50 mg feeding tube QAM quetiapine 100 mg tablet 100 mg feeding tube HS Patient Comments: TAKE 1 TABLET BY MOUTH DAILY AT NIGHT Rx Instructions: TAKE 1 TABLET BY MOUTH DAILY AT NIGHT montelukast 10 mg tablet 10 mg feeding tube DAILY Patient Comments: TARA ARBEN TABLETA TODOS LOS TOPETE FOR 90 DAYS levetiracetam 100 mg/mL solution 800 mg feeding tube Q12H Patient Comments: GIVE NICKY 8 MLS (800 MG TOTAL) BY PER G TUBE ROUTE 2 TIMES A DAY. albuterol sulfate 90 mcg/actuation HFA aerosol inhaler 2 puff INHALATION Q6H Patient Comments: TAKE 2 PUFFS WHEN NEEDED INHALATION EVERY 6 HRS 30 DAYS Referrals: Tavares Cole MD [Primary Care Provider, Family Practice] Patient/Caregiver Discharge Instructions Print Language: [place] Quality Discharge Quality Measures VTE prophylaxis
--- NOTE | 2025-06-21 15:20 | PC.SS ---
Family meeting with patient's parents. Resident provided overview on patient's status. Discussed with parents that current issues are elevated heart rate and persistent fever. Resident informed parents that patient's medications have been decreased. Patient has been transitioned to blow by. Resident informed parents that transfer for [facility] has been initiated. Neurology in agreement with transfer request. Parents made aware that transfer pending accepting facilities. Medical team to provide parents with update.
--- NOTE | 2025-06-21 15:25 | PC.SS ---
TRAINING AND QUALITY MANAGER contacted [facility] staff, Atul; to request peer to peer discussion regarding patient. LTAC staff to contact facility physician to submit request. TRAINING AND QUALITY MANAGER provided LTAC staff with contact number for medical team. Discussion to address patient's persistent fever. TRAINING AND QUALITY MANAGER updated medical team.
--- NOTE | 2025-06-21 16:49 | RESP.EEG ---
EEG ORDERED BY DR DIAL. @ 1600 I WENT O ATTEMPT THE EEG AND THE PT IS MOVING SPORADICALLY AND HEAD THRASHING AROUND. UNABLE TO COMPLETE DUE TO THE MOVEMENT FOR THE TEST WOULD WOULD BE ALL ARTIFACT. DR Valdez MADE AWARE AND ASKED TO CANCEL EEG
--- NOTE | 2025-06-21 18:43 | ESPR_ITS ---
Documentation for date of: 06/21/25 Subjective Subjective Interval history: Patient was seen and examined at bedside this AM. Downgraded from ICU -> Tele on 06/20/2025. Patient continues to have intermittent fever spikes. He was taken off of the Precedex drip around 6:30 AM on 06/20/2025 Remains on PRN Seroquel. Blood cultures remain negative to date. Bilateral otitis media and externa have been treated per ENT recommendations. Patient's clinical presentation unlikely from infection. Suspect dysautonomia related to underlying cerebral palsy as a contributing factor. Will try amantandine 100mg BID to be dosed at 7am and 2pm daily. Cleared for DC to LTAC or tertiary level center if accepted. Exam Vital Signs Temp Pulse Resp BP Pulse Ox O2 Del Method O2 Flow Rate 100.2 F 149 H 27 H 136/88 H 97 Trach Collar 8 06/21/25 16:02 06/21/25 16:02 06/21/25 16:00 06/21/25 15:50 06/21/25 16:02 06/20/25 04:00 06/21/25 06:24 FiO2 40 06/21/25 16:00 Narrative Exam Constitutional awake, moving around with dyskinetic movements throughout the body HEENT PERRLA. Patent nares. Trachea midline. Tracheostomy, chronic Respiratory Chest normal on inspection and clear to auscultation bilaterally. Cardiovascular S1 and S2 audible, RRR. No murmurs or carotid bruit. No gross JVD. Abdominal Soft, nontender, not distended, normal bowel sounds. PEG tube in place Genitourinary Paraphimosis of penis- resolved. Osborne with good UO Musculoskeletal Extremities tone within normal limits. No LE edema. Neurological Unable to asses CN and peripheral motor function. B/L LE fixed contractures with inward curvature. Spastic. Skin Warm, dry and intact. No apparent lesions. Objective Labs 06/26/25 09:30 06/26/25 10:26 ABG Interpretation ABG results: 05/09/25 05/09/25 05/09/25 11:56 13:40 18:50 ABG pH 7.40 7.27 L D 7.28 L ABG pCO2 40 43 55 H D ABG pO2 131 H 53 L* D 70 L ABG HCO3 25 20 26 ABG O2 Saturation 99 H 81 L 92 ABG Base Excess 0 -7 L -2 VBG pH VBG pCO2 VBG pO2 VBG Base Excess 05/10/25 05/11/25 05/12/25 00:14 05:06 01:18 ABG pH 7.35 7.33 L 7.39 ABG pCO2 42 D 54 H D 48 ABG pO2 103 D 93 94 ABG HCO3 23 28 H 29 H ABG O2 Saturation 99 H 98 98 ABG Base Excess -3 2 3 VBG pH VBG pCO2 VBG pO2 VBG Base Excess 05/12/25 05/12/25 05/13/25 03:58 11:50 05:10 ABG pH 7.46 H 7.39 7.19 L* D ABG pCO2 41 48 60 H D ABG pO2 105 58 L* D 114 H D ABG HCO3 29 H 29 H 23 ABG O2 Saturation 99 H 90 L 98 ABG Base Excess 5 H 4 H -6 L VBG pH VBG pCO2 VBG pO2 VBG Base Excess 05/17/25 05/18/25 05/19/25 01:30 04:09 04:43 ABG pH 7.38 7.43 7.47 H ABG pCO2 46 44 43 ABG pO2 90 83 80 L ABG HCO3 27 H 29 H 31 H ABG O2 Saturation 98 97 97 ABG Base Excess 2 5 H 7 H VBG pH VBG pCO2 VBG pO2 VBG Base Excess 05/21/25 05/21/25 05/31/25 04:18 06:33 08:06 ABG pH 7.37 D 7.46 H ABG pCO2 50 H 38 D ABG pO2 40 L* D 121 H D ABG HCO3 29 H 27 H ABG O2 Saturation 66 L 100 H ABG Base Excess 3 3 VBG pH 7.55 VBG pCO2 31 L VBG pO2 144 H VBG Base Excess 5 H 06/05/25 06/05/25 06/06/25 13:37 23:46 05:20 ABG pH 7.47 H 7.45 ABG pCO2 35 38 ABG pO2 200 H 54 L* D ABG HCO3 25 26 ABG O2 Saturation 101 H 89 L ABG Base Excess 2 2 VBG pH 7.50 VBG pCO2 34 L VBG pO2 90 H VBG Base Excess 4 H 06/10/25 17:41 ABG pH ABG pCO2 ABG pO2 ABG HCO3 ABG O2 Saturation ABG Base Excess VBG pH 7.40 VBG pCO2 43 VBG pO2 43 VBG Base Excess 2 Quality Measures Quality Measures VTE prophylaxis Assessment & Plan Assessment Current Active Medications: Generic Name Dose Route Start Last Admin Trade Name Freq PRN Reason Stop Dose Admin Acetaminophen 325 mg 06/16/25 16:18 06/21/25 12:11 Acetaminophen Racquel 325 Mg/10 Ml Udc GT 07/09/25 16:12 325 mg Q4HR PRN Administration pain (1-3) or fever > 100.4 Amantadine HCl 100 mg 06/22/25 14:00 Amantadine Hcl 100 Mg Capsule PO 06/29/25 13:59 Q24H KYA Amantadine HCl 100 mg 06/22/25 07:00 Amantadine Hcl 100 Mg Capsule PO 06/29/25 06:59 Q24H KYA Clonazepam 0.5 mg 06/19/25 21:00 06/21/25 08:57 Clonazepam 0.5 Mg Tablet GT 06/24/25 20:59 0.5 mg BID KYA Administration Heparin Sodium (Porcine) 5,000 unit 06/08/25 14:00 06/21/25 14:10 Heparin Sod Inj 5000 Unit/Ml Vial SC 06/22/25 13:59 5,000 unit Q8HR KYA Administration Ketorolac Tromethamine 30 mg 06/21/25 09:42 06/21/25 12:05 Ketorolac Inj 30 Mg/Ml Vial IVP 06/26/25 09:41 30 mg Q6HR PRN Administration PAIN 4-10 Levetiracetam 800 mg 06/20/25 21:00 06/21/25 08:58 Levetiracetam Liqd 500 Mg/5 Ml Udc GT 07/20/25 20:59 800 mg BID KYA Administration Nystatin 0 gm 06/21/25 21:00 Nystatin Pwd 15 Gm Btl TOP 07/21/25 20:59 BID KYA Quetiapine Fumarate 100 mg 06/21/25 21:00 Quetiapine Fumarate 100 Mg Tablet GT 07/21/25 20:59 HS KYA Quetiapine Fumarate 50 mg 06/21/25 09:15 06/21/25 09:44 Quetiapine Fumarate 25 Mg Tablet GT 07/21/25 09:14 50 mg QAM KYA Administration Plan 24-year-old male with cerebral palsy, asthma, seizure disorder, chronic mastoiditis, recurrent pneumonia, and chronic PEG tube dependence presented with fever and seizure, was admitted for sepsis workup, and later transferred to the ICU for intubation due to concerns about airway protection. Patient has been downgraded from ICU to tele on 06/16/2025 Fevers of unknown origin Dyskinesia Hx of Seizure disorder Hx of Cerebral palsy EEG 05/11 unremarkable. Repeat EEG 05/20 showed electrographic seizure activity. Continuous EEG 05/22-05/23: no seizure activity or status epilepticus. Repeat EEG 06/05 negative for seizure activity. MRI brain: no acute pathology. Recommendations: - Etiology behind fevers remains unclear. May hold valproic acid for now - Continue Keppra 750 mg GT twice daily adjusted to 500mg BID - Added Amantadine 100 mg BID to be dosed at 7 AM and 2 PM daily for optimization - May DC to LT or tertiary level center if accepted. Cleared from neurology standpoint. Chronic mastoiditis Hx of ESBL UTI Pseudomonas aeruginosa, sputum positive Mucus plugs, right upper lung and left lower lung ? Paraphimosis (resolved) Balanitis (resolved) Gingivial Bleeding, Oral Trauma Sever Asthma Maculopapular rash to the buttocks-Resolving - as per primary team Thank you for the consult. Neurology will continue to follow the case with you Plan of care discussed with attending Neurologist Santi Bowser M.D. PGY3 Disclaimer: Minor errors in director of casino marketing may be present as this note was dictated using voice recognition software. Attending Provider Attestation/Addendum I personally have seen and examined the patient at the bedside and agreed with the resident's findings, assessment and plan of care. Continue with the current management in addition to amantadine 100 mg twice a day the second dose at 2 PM to prevent sleep disturbances. Patient is waiting for acceptance at LT or tertiary center for higher level of care.
--- NOTE | 2025-06-21 18:49 | PC.CC ---
Addendum entered by Blanca Kolb RN 06/21/25 20:00: 1954: received call from Dr. Delacruz, she stated per Dr. Baer, still continue with transfer search. Dr. Delacruz stated it is not urgent and can continue tomorrow. Transfer nurse to continue transfer search. 1949: spoke to Dr. Orozco, she stated she did not get report and will reach out the Team B day providers 1944: spoke to Nay in ICU she stated that her handoff report was that pt is still being transferred. Addendum entered by Blanca Kolb RN 06/21/25 19:48: 1939: image uploaded completed. called [facility], spoke to Marichuy. She ifnormed me that their Neurlogist spoke to Dr. Baer earlier today and informed him that there is no need for HLOC transfer. I called Dr. Garcia to f/u, he stated he did not get report on this patient. He will call the residents and call me back. Addendum entered by Blanca Kolb RN 06/21/25 19:29: additional clinicals such as EEG and current neurology notes sent to [facility]. Uploading images. Addendum entered by Blanca Kolb RN 06/21/25 19:28: I was not able to f/u with [facility]. Original Note: transfer request received. clinicals sent to [facility] and [facility]. f/u'd with [facility], they are requesting images be uploaded related to the neurlogy request. CD created. need to upload images
[2025-06-21] MEDS: NYSTATIN PWD 15 GM BTL TOP (20:02)
--- NOTE | 2025-06-21 23:09 | PC.NURSE ---
Patient's mother at bedside at 22:09, expressed concerns of patient having a fever and skin that was warm to the touch, Nurse showed patient current temperature which was 99.8 and that patient had a fan on and minimal covering over patient. Patient mother also expressed concern of possible agitation present to patient. Nurse expressed that patient had already received a Toradol IVP PRN for agitation and that an additional dose wouldn't be able to be given due to the every 6 hour frequency. Patient mom left bedside 22:24. At 22:40, Patient's Father who is the POC called the unit expressing concerns which included Patient having a fever that was not being addressed, Proper care that was not being given appropriately, a seizure can happen due to actions from care team, and concern that patient can in ICU. Nurse reassured and reeducated the POC that the patient was being cared for appropriately, Patient was afebrile this shift and remained on seizure precautions and meds during this admission. Nurse also expressed that POC concerns would be made known to MD and that the POC would received an update of the Plan of Care upon next visit.
[2025-06-22] VITALS (17 sets, daily range): BP systolic 131–162; BP diastolic 80–98; PULSE 142–173; RESP 25–44; TEMP 37.1–39.4; O2SAT 91–100; BMI 28.5
[2025-06-22] MEDS: KETOROLAC INJ 30 MG/ML VIAL IVP ×3 (01:16→20:56)
[2025-06-22] MEDS: HEPARIN SOD INJ 5000 UNIT/ML VIAL SC (06:00)
[2025-06-22 06:25] LABS: Alanine Aminotransferase 50 U/L (10-49); Albumin, Serum 4.7 gm/dL (3.5-5.0); Albumin/Globulin Ratio 1.6 (1.2-2.2); Alkaline Phosphatase 123 U/L (46-116); Anion Gap 18 (7-16); Aspartate Amino Transferase 60 U/L (0-34); BUN/Creatinine Ratio 24 Ratio (12-20); Bilirubin,Total 0.4 mg/dL (0.3-1.2); Blood Urea Nitrogen 17 mg/dL (9-23); Calcium 10.8 mg/dL (8.3-10.6); Calcium (Corrected) 10.8 mg/dL (8.5-10.1); Carbon Dioxide 22.2 mMol/L (20.0-31.0); Chloride 102 mMol/L (98-107); Creatinine (Component) 0.7 mg/dL (0.6-1.3); Estimated Creatinine Clearance 125.5 mL/min (>60); Globulin 3.0 gm/dL (2.3-3.5); Glucose 96 mg/dL (74-106); Magnesium 1.9 mg/dL (1.6-2.6); Osmolality,Calculated 284 (275-295); Phosphorous 5.2 mg/dL (2.4-5.1); Potassium 4.3 mMol/L (3.4-5.1); Sodium 142 mMol/L (136-145); Total Protein 7.7 gm/dL (5.7-8.2); eGFR > 60 See Note
[2025-06-22 07:31] LABS: Basophils # (Auto) 0.1 Thou/mm3 (0.0-0.2); Basophils % (Auto) 1 % (0-2.5); Eosinophils # (Auto) 0.2 Thou/mm3 (0.0-0.5); Eosinophils % (Auto) 1 % (0-10); Hematocrit 29.2 % (41.0-53.0); Hemoglobin 9.0 g/dL (13.5-16.0); Immature Granulocytes Auto 0.07 Thou/mm3 (0.00-0.00); Lymphocytes # (Auto) 3.1 Thou/mm3 (1.0-4.8); Lymphocytes % (Auto) 20 % (10-50); Mean Corpuscular HGB Conc 30.8 g/dl (31.0-37.0); Mean Corpuscular Hemoglobin 26.5 pg (25.0-35.0); Mean Corpuscular Volume 86 fL (80-100); Monocytes # (Auto) 2.1 Thou/mm3 (0.0-0.8); Monocytes % (Auto) 14 % (0-12); Neutrophils # (Auto) 10.1 Thou/mm3 (1.8-7.7); Neutrophils % (Auto) 65 % (37-80); Nucleated Red Blood Cell # 0.00 Thou/mm3 (0.00-0.00); Nucleated Red Blood Cell % 0 /100 WBC (0); Platelet Count 613 Thou/mm3 (140-440); RDW Standard Deviation 52.2 fL (35.1-43.9); Red Blood Count 3.39 Miln/mm3 (4.50-5.90); White Blood Count 15.6 Thou/mm3 (3.8-10.6)
[2025-06-22] MEDS: HYDROmorphone INJ 2 MG/ML VIAL 1 MG IVP ×2 (08:34→20:15)
[2025-06-22] MEDS: NYSTATIN PWD 15 GM BTL TOP ×2 (08:40→21:27)
[2025-06-22] MEDS: levETIRAcetam LIQD 500 MG/5 ML UDC 800 MG GT ×2 (08:42→20:38)
[2025-06-22] MEDS: ACETAMINOPHEN SOL 325 MG/10 ML UDC GT ×2 (08:48→20:55)
--- NOTE | 2025-06-22 09:03 | PC.SS ---
Update: Patient's WBC elevated. Labs have been ordered. NON ACOUSTIC OPERATOR confirmed that peer to peer discussion occurred. Resident informed NON ACOUSTIC OPERATOR that LTAC will accept patient. Discharge pending due to elevated WBC.
[2025-06-22 09:07] LABS: Lactate (Lactic Acid) 1.6 mMol/L (0.4-2.0)
[2025-06-22 09:13] LABS: Beta Hydroxybutyrate 2.8 mmol/L (<0.6)
--- NOTE | 2025-06-22 09:16 | PC.SS ---
SS has sent updated inquiry to [facility], [facility], and [facility] using [facility].
--- NOTE | 2025-06-22 09:23 | PC.SS ---
NICOLA has also sent updated inquiry to [facility] using [facility].
[2025-06-22 09:57] LABS: Creatine Kinase 136 U/L (34-171)
--- NOTE | 2025-06-22 10:50 | PC.CM ---
Addendum entered by Hailey Esquivel RN 06/22/25 19:27: Patient declined by [place] and [facility]. [facility] and [facility] are still reviewing. Packet started and left on transfer desk. l Addendum entered by Hailey Esquivel RN 06/22/25 17:46: 1710 I received a call from [place] nurse Janiya. She wanted more information on patient and she wanted to know more information on patient's hospital stay. I provided all the information and I faxed over EEG and latest radiology reports. I let her know I was unable to push over images. Addendum entered by Hailey Esquivel RN 06/22/25 17:17: 1600 I called and initiated a transfer with [facility]. I spoke to Sandrita and presened the patient. I faxed over clinicals. Addendum entered by Hailey Esquivel RN 06/22/25 16:45: 1545 I contacted [facility] and initiated a transfer. I faxed over facesheet. 1530 I received a call from the transfer center at [place]. Their Dr. Lizzy Bertrand reviewed information and he declined patient stating they had nothing more to offer patient. I contacted Dr. Cross and I gave him the information. Original Note: I reviewed notes. Patient was declined at [facility]. I sent information to [place] and I initiated a transfer.
[2025-06-22] MEDS: DEXTROSE 5%-LACTATED RINGERS 500 ML 75 ML IV (11:41)
--- NOTE | 2025-06-22 16:44 | PD.RESPRO ---
Documentation for date of: 06/22/25 Subjective Subjective Interval history: Patient seen today in the ICU required to be transferred back due increaed agitation and required precedex drip till yesterday, currently today off drips but still with dyskinetic movements. Was started on Amantadine 100mg yesterday does not seem to be effective, might consider carbidopa-levodopa, but will see. Pending transfer to LTAC. Exam Vital Signs Temp Pulse Resp BP Pulse Ox O2 Del Method O2 Flow Rate 98.9 F 146 H 40 H 144/80 H 100 Trach Collar 8 06/22/25 12:00 06/22/25 12:00 06/22/25 12:00 06/22/25 12:00 06/22/25 12:00 06/20/25 04:00 06/22/25 06:16 FiO2 40 06/22/25 08:00 Narrative Exam Gen: Nonpurposeful movements, trached HEENT: NCAT, EOMI, Pupils reactive KARLO, not icteric, external ears normal. No rhinorrhea. Moist mucous membranes with no visible blood. Neck: Supple, full range of motion, no observable masses, No meningeal sign. Lungs: Coarse breath sounds bilateral CV: tachycardic, no murmurs appreciated. Abdomen: Soft, nondistended, No rebound tenderness, PEG tube in place, peristalsis present. MSK: No lower extremity edema, no redness, peripheral pulses presents, Contracted hands, decreased tone Skin: No, petechiae, lesions, erythematous Neuro: Alert and moving extremitie, pupils reactive, nonpurposeful movements with facial grimacing. Objective Labs 06/26/25 09:30 06/26/25 10:26 Labs: Laboratory Results - last 24 hr 06/17/25 06/22/25 06/22/25 04:22 04:35 06:35 WBC 15.6 H D RBC 3.39 L Hgb 9.0 L Hct 29.2 L MCV 86 MCH 26.5 MCHC 30.8 L RDW Std Deviation 52.2 H Plt Count 613 H D Neut % (Auto) 65 Lymph % (Auto) 20 [place] % (Auto) 14 H Eos % (Auto) 1 Baso % (Auto) 1 Neut # (Auto) 10.1 H Lymph # (Auto) 3.1 [place] # (Auto) 2.1 H Eos # (Auto) 0.2 Baso # (Auto) 0.1 Immature Gran # (Auto) 0.07 H Absolute Nucleated RBC 0.00 Immature Gran % 0 Nucleated RBC % 0 Sodium 142 Potassium 4.3 Chloride 102 Carbon Dioxide 22.2 Anion Gap 18 H BUN 17 Creatinine 0.7 Estim Creat Clear Calc 125.5 eGFR > 60 BUN/Creatinine Ratio 24 H Glucose 96 Calculated Osmolality 284 Lactic Acid Calcium 10.8 H Corrected Calcium 10.8 H Phosphorus 5.2 H Magnesium 1.9 Total Bilirubin 0.4 AST 60 H ALT 50 H Alkaline Phosphatase 123 H Total Creatine Kinase Total Protein 7.7 Albumin 4.7 Globulin 3.0 Albumin/Globulin Ratio 1.6 Beta-Hydroxybutyrate/Acetoacetate Misc Test Result See Mar06/22/25 08:52 WBC RBC Hgb Hct MCV MCH MCHC RDW Std Deviation Plt Count Neut % (Auto) Lymph % (Auto) [place] % (Auto) Eos % (Auto) Baso % (Auto) Neut # (Auto) Lymph # (Auto) [place] # (Auto) Eos # (Auto) Baso # (Auto) Immature Gran # (Auto) Absolute Nucleated RBC Immature Gran % Nucleated RBC % Sodium Potassium Chloride Carbon Dioxide Anion Gap BUN Creatinine Estim Creat Clear Calc eGFR BUN/Creatinine Ratio Glucose Calculated Osmolality Lactic Acid 1.6 Calcium Corrected Calcium Phosphorus Magnesium Total Bilirubin AST ALT Alkaline Phosphatase Total Creatine Kinase 136 Total Protein Albumin Globulin Albumin/Globulin Ratio Beta-Hydroxybutyrate/Acetoacetate 2.8 H Misc Test Result ABG Interpretation ABG results: 05/09/25 05/09/25 05/09/25 11:56 13:40 18:50 ABG pH 7.40 7.27 L D 7.28 L ABG pCO2 40 43 55 H D ABG pO2 131 H 53 L* D 70 L ABG HCO3 25 20 26 ABG O2 Saturation 99 H 81 L 92 ABG Base Excess 0 -7 L -2 VBG pH VBG pCO2 VBG pO2 VBG Base Excess 05/10/25 05/11/25 05/12/25 00:14 05:06 01:18 ABG pH 7.35 7.33 L 7.39 ABG pCO2 42 D 54 H D 48 ABG pO2 103 D 93 94 ABG HCO3 23 28 H 29 H ABG O2 Saturation 99 H 98 98 ABG Base Excess -3 2 3 VBG pH VBG pCO2 VBG pO2 VBG Base Excess 05/12/25 05/12/25 05/13/25 03:58 11:50 05:10 ABG pH 7.46 H 7.39 7.19 L* D ABG pCO2 41 48 60 H D ABG pO2 105 58 L* D 114 H D ABG HCO3 29 H 29 H 23 ABG O2 Saturation 99 H 90 L 98 ABG Base Excess 5 H 4 H -6 L VBG pH VBG pCO2 VBG pO2 VBG Base Excess 05/17/25 05/18/25 05/19/25 01:30 04:09 04:43 ABG pH 7.38 7.43 7.47 H ABG pCO2 46 44 43 ABG pO2 90 83 80 L ABG HCO3 27 H 29 H 31 H ABG O2 Saturation 98 97 97 ABG Base Excess 2 5 H 7 H VBG pH VBG pCO2 VBG pO2 VBG Base Excess 05/21/25 05/21/25 05/31/25 04:18 06:33 08:06 ABG pH 7.37 D 7.46 H ABG pCO2 50 H 38 D ABG pO2 40 L* D 121 H D ABG HCO3 29 H 27 H ABG O2 Saturation 66 L 100 H ABG Base Excess 3 3 VBG pH 7.55 VBG pCO2 31 L VBG pO2 144 H VBG Base Excess 5 H 06/05/25 06/05/25 06/06/25 13:37 23:46 05:20 ABG pH 7.47 H 7.45 ABG pCO2 35 38 ABG pO2 200 H 54 L* D ABG HCO3 25 26 ABG O2 Saturation 101 H 89 L ABG Base Excess 2 2 VBG pH 7.50 VBG pCO2 34 L VBG pO2 90 H VBG Base Excess 4 H 06/10/25 17:41 ABG pH ABG pCO2 ABG pO2 ABG HCO3 ABG O2 Saturation ABG Base Excess VBG pH 7.40 VBG pCO2 43 VBG pO2 43 VBG Base Excess 2 Quality Measures Quality Measures VTE prophylaxis Assessment & Plan Assessment Current Active Medications: Generic Name Dose Route Start Last Admin Trade Name Freq PRN Reason Stop Dose Admin Acetaminophen 325 mg 06/16/25 16:18 06/22/25 08:48 Acetaminophen Racquel 325 Mg/10 Ml Udc GT 07/09/25 16:12 325 mg Q4HR PRN Administration pain (1-3) or fever > 100.4 Amantadine HCl 100 mg 06/22/25 14:00 06/22/25 13:30 Amantadine Hcl 100 Mg Capsule PO 06/29/25 13:59 100 mg 1400 KYA Administration Amantadine HCl 100 mg 06/22/25 07:00 06/22/25 06:09 Amantadine Hcl 100 Mg Capsule PO 06/29/25 06:59 100 mg 0700 KYA Administration Clonazepam 0.5 mg 06/19/25 21:00 06/22/25 08:35 Clonazepam 0.5 Mg Tablet GT 06/24/25 20:59 0.5 mg BID KYA Administration Dextrose/Lactated Ringer's 500 mls @ 75 mls/hr 06/22/25 11:45 06/22/25 11:41 D5-Lr IV 06/22/25 18:24 75 mls/hr .[id number] ONE Administration Ketorolac Tromethamine 30 mg 06/21/25 09:42 06/22/25 07:51 Ketorolac Inj 30 Mg/Ml Vial IVP 06/26/25 09:41 30 mg Q6HR PRN Administration PAIN 4-10 Levetiracetam 800 mg 06/20/25 21:00 06/22/25 08:42 Levetiracetam Liqd 500 Mg/5 Ml Udc GT 07/20/25 20:59 800 mg BID KYA Administration Nystatin 0 gm 06/21/25 21:00 06/22/25 08:40 Nystatin Pwd 15 Gm Btl TOP 07/21/25 20:59 1 appln BID KYA Administration Pantoprazole Sodium 40 mg 06/22/25 11:15 06/22/25 11:41 Pantoprazole Inj 40 Mg Vial IVP 07/22/25 11:14 40 mg QDAY KYA Administration Quetiapine Fumarate 100 mg 06/21/25 21:00 06/21/25 20:01 Quetiapine Fumarate 100 Mg Tablet GT 07/21/25 20:59 100 mg HS KYA Administration Quetiapine Fumarate 50 mg 06/21/25 09:15 06/22/25 08:35 Quetiapine Fumarate 25 Mg Tablet GT 07/21/25 09:14 50 mg QAM KYA Administration Plan 24-year-old male with cerebral palsy, asthma, seizure disorder, chronic mastoiditis, recurrent pneumonia, and chronic PEG tube dependence presented with fever and seizure, was admitted for sepsis workup, and later transferred to the ICU for intubation due to concerns about airway protection. Patient has been downgraded from ICU to tele on 06/16/2025 #Fevers of unknown origin #Dyskinesia #Hx of Seizure disorder #Hx of Cerebral palsy EEG 05/11 unremarkable. Repeat EEG 05/20 showed electrographic seizure activity. Continuous EEG 05/22-05/23: no seizure activity or status epilepticus. Repeat EEG 06/05 negative for seizure activity. MRI brain: no acute pathology. - Etiology behind fevers remains unclear. DDx: medications, infectious, hypermetabolic syndrome - Continue Keppra 800 mg GT twice daily - on clonopin 0.5mg BID - Currently on Amantadine 100 mg BID, might consider switching to carbidopa-levodopa but will wait at this time - May DC to LTAC or tertiary level center if accepted. Cleared from neurology standpoint. #Chronic mastoiditis #Hx of ESBL UTI #Pseudomonas aeruginosa, sputum positive #Mucus plugs, right upper lung and left lower lung ? #Paraphimosis (resolved) #Balanitis (resolved) #Gingivial Bleeding, Oral Trauma #Sever Asthma #Maculopapular rash to the buttocks-Resolving - as per primary team Case discussed with my attending Dr. Precious Cole MD PGY-2 Attending Provider Attestation/Addendum I personally have seen and examined the patient at the bedside and agreed with resident's findings, assessment and plan of care. Continue with the current management. Dyskinesias have not improved at all despite trying new measures. Waiting for transfer to LTAC//higher level of care.
--- NOTE | 2025-06-22 19:08 | ESPR_ITS ---
<Statement entered by Robert Cross MD - 06/22/25 21:12> Patient was seen and examined at bedside. I agree on the assessment and plan on this note as documented by resident Dr Jose R Rain DO PGY1. 24-year-old male with past medical history as below admitted for fever of unknown origin, patient has had a prolonged hospitalization course. Continues to have fevers and periods of agitation, attempt made to transfer patient to higher level of care however patient has been refused from multiple facilities. Discussed case with [facility] neurologist Dr. Martínez, she reported that she reviewed the case and she thinks that patient likely has psychogenic fever as patient's fever/symptoms improved with sedation or improvement of agitation. Patient otherwise denied by [facility] and [facility], pending response from [facility]. Patient continues to have episodes of agitation, was given IV Dilaudid, started on IV Protonix for GI prophylaxis. Patient was started on amantadine for dyskinesia by neurology, will continue with Seroquel. Patient did have high anion gap metabolic acidosis today, workup revealed elevated beta hydroxybutyrate 2.8, was given 500 cc D5LR, will discuss with dietitian regarding nutrition assessment. Case discussed with attending Dr. Neva Moreno MD PGY-2 Documentation for date of: 06/22/25 Subjective Subjective Interval history: This morning, patient's temperature was around 101.1F. Received IV dilaudid, seroquel, clonazepam, Tylenol, and keppra. Patient continues to fluctuate in temperature. Still tachicardic Failed to be transferred to tertiary center. Possible placement to LTAC. Will continue to monitor. Exam Vital Signs Temp Pulse Resp BP Pulse Ox O2 Del Method O2 Flow Rate 99.8 F 155 H 38 H 162/98 H 91 L Trach Collar 8 06/22/25 16:00 06/22/25 16:00 06/22/25 16:00 06/22/25 16:00 06/22/25 16:00 06/20/25 04:00 06/22/25 06:16 FiO2 40 06/22/25 16:00 Narrative Exam Gen: Nonpurposeful movements, trached on blow by HEENT: NCAT, EOMI, Pupils reactive KARLO, not icteric, external ears normal. No rhinorrhea. Moist mucous membranes with no visible blood. Increased secretions noted. Neck: Supple, full range of motion, no observable masses, No meningeal sign. Lungs: Coarse breath sounds bilateral on blow-by CV: Sinus tachycardia, no murmurs appreciated. Abdomen: Soft, nondistended, No rebound tenderness, PEG tube in place, peristalsis present. Status post dorsal slit, no inflammation noted around penis MSK: No lower extremity edema, no redness, peripheral pulses presents, Contracted hands, decreased tone Skin: No, petechiae, lesions, erythematous. Some redness noted lower back. Neuro: Alert and moving extremitie, pupils reactive, nonpurposeful movements with facial grimacing. Objective Labs 06/22/25 06:35 06/22/25 04:35 Labs: Laboratory Results - last 24 hr 06/17/25 06/22/25 06/22/25 04:22 04:35 06:35 WBC 15.6 H D RBC 3.39 L Hgb 9.0 L Hct 29.2 L MCV 86 MCH 26.5 MCHC 30.8 L RDW Std Deviation 52.2 H Plt Count 613 H D Neut % (Auto) 65 Lymph % (Auto) 20 [place] % (Auto) 14 H Eos % (Auto) 1 Baso % (Auto) 1 Neut # (Auto) 10.1 H Lymph # (Auto) 3.1 [place] # (Auto) 2.1 H Eos # (Auto) 0.2 Baso # (Auto) 0.1 Immature Gran # (Auto) 0.07 H Absolute Nucleated RBC 0.00 Immature Gran % 0 Nucleated RBC % 0 Sodium 142 Potassium 4.3 Chloride 102 Carbon Dioxide 22.2 Anion Gap 18 H BUN 17 Creatinine 0.7 Estim Creat Clear Calc 125.5 eGFR > 60 BUN/Creatinine Ratio 24 H Glucose 96 Calculated Osmolality 284 Lactic Acid Calcium 10.8 H Corrected Calcium 10.8 H Phosphorus 5.2 H Magnesium 1.9 Total Bilirubin 0.4 AST 60 H ALT 50 H Alkaline Phosphatase 123 H Total Creatine Kinase Total Protein 7.7 Albumin 4.7 Globulin 3.0 Albumin/Globulin Ratio 1.6 Beta-Hydroxybutyrate/Acetoacetate Misc Test Result See Sep Rpt 06/22/25 08:52 WBC RBC Hgb Hct MCV MCH MCHC RDW Std Deviation Plt Count Neut % (Auto) Lymph % (Auto) [place] % (Auto) Eos % (Auto) Baso % (Auto) Neut # (Auto) Lymph # (Auto) [place] # (Auto) Eos # (Auto) Baso # (Auto) Immature Gran # (Auto) Absolute Nucleated RBC Immature Gran % Nucleated RBC % Sodium Potassium Chloride Carbon Dioxide Anion Gap BUN Creatinine Estim Creat Clear Calc eGFR BUN/Creatinine Ratio Glucose Calculated Osmolality Lactic Acid 1.6 Calcium Corrected Calcium Phosphorus Magnesium Total Bilirubin AST ALT Alkaline Phosphatase Total Creatine Kinase 136 Total Protein Albumin Globulin Albumin/Globulin Ratio Beta-Hydroxybutyrate/Acetoacetate 2.8 H Misc Test Result ABG Interpretation ABG results: 05/09/25 05/09/25 05/09/25 11:56 13:40 18:50 ABG pH 7.40 7.27 L D 7.28 L ABG pCO2 40 43 55 H D ABG pO2 131 H 53 L* D 70 L ABG HCO3 25 20 26 ABG O2 Saturation 99 H 81 L 92 ABG Base Excess 0 -7 L -2 VBG pH VBG pCO2 VBG pO2 VBG Base Excess 05/10/25 05/11/25 05/12/25 00:14 05:06 01:18 ABG pH 7.35 7.33 L 7.39 ABG pCO2 42 D 54 H D 48 ABG pO2 103 D 93 94 ABG HCO3 23 28 H 29 H ABG O2 Saturation 99 H 98 98 ABG Base Excess -3 2 3 VBG pH VBG pCO2 VBG pO2 VBG Base Excess 05/12/25 05/12/25 05/13/25 03:58 11:50 05:10 ABG pH 7.46 H 7.39 7.19 L* D ABG pCO2 41 48 60 H D ABG pO2 105 58 L* D 114 H D ABG HCO3 29 H 29 H 23 ABG O2 Saturation 99 H 90 L 98 ABG Base Excess 5 H 4 H -6 L VBG pH VBG pCO2 VBG pO2 VBG Base Excess 05/17/25 05/18/25 05/19/25 01:30 04:09 04:43 ABG pH 7.38 7.43 7.47 H ABG pCO2 46 44 43 ABG pO2 90 83 80 L ABG HCO3 27 H 29 H 31 H ABG O2 Saturation 98 97 97 ABG Base Excess 2 5 H 7 H VBG pH VBG pCO2 VBG pO2 VBG Base Excess 05/21/25 05/21/25 05/31/25 04:18 06:33 08:06 ABG pH 7.37 D 7.46 H ABG pCO2 50 H 38 D ABG pO2 40 L* D 121 H D ABG HCO3 29 H 27 H ABG O2 Saturation 66 L 100 H ABG Base Excess 3 3 VBG pH 7.55 VBG pCO2 31 L VBG pO2 144 H VBG Base Excess 5 H 06/05/25 06/05/25 06/06/25 13:37 23:46 05:20 ABG pH 7.47 H 7.45 ABG pCO2 35 38 ABG pO2 200 H 54 L* D ABG HCO3 25 26 ABG O2 Saturation 101 H 89 L ABG Base Excess 2 2 VBG pH 7.50 VBG pCO2 34 L VBG pO2 90 H VBG Base Excess 4 H 06/10/25 17:41 ABG pH ABG pCO2 ABG pO2 ABG HCO3 ABG O2 Saturation ABG Base Excess VBG pH 7.40 VBG pCO2 43 VBG pO2 43 VBG Base Excess 2 Quality Measures Quality Measures VTE prophylaxis Assessment & Plan Assessment Current Active Medications: Generic Name Dose Route Start Last Admin Trade Name Freq PRN Reason Stop Dose Admin Acetaminophen 325 mg 06/16/25 16:18 06/22/25 08:48 Acetaminophen Enrique 325 Mg/10 Ml Udc GT 07/09/25 16:12 325 mg Q4HR PRN Administration pain (1-3) or fever > 100.4 Amantadine HCl 100 mg 06/22/25 14:00 06/22/25 13:30 Amantadine Hcl 100 Mg Capsule PO 06/29/25 13:59 100 mg 1400 KYA Administration Amantadine HCl 100 mg 06/22/25 07:00 06/22/25 06:09 Amantadine Hcl 100 Mg Capsule PO 06/29/25 06:59 100 mg 0700 KYA Administration Clonazepam 0.5 mg 06/19/25 21:00 06/22/25 08:35 Clonazepam 0.5 Mg Tablet GT 06/24/25 20:59 0.5 mg BID KYA Administration Ketorolac Tromethamine 30 mg 06/21/25 09:42 06/22/25 07:51 Ketorolac Inj 30 Mg/Ml Vial IVP 06/26/25 09:41 30 mg Q6HR PRN Administration PAIN 4-10 Levetiracetam 800 mg 06/20/25 21:00 06/22/25 08:42 Levetiracetam Liqd 500 Mg/5 Ml Udc GT 07/20/25 20:59 800 mg BID KYA Administration Nystatin 0 gm 06/21/25 21:00 06/22/25 08:40 Nystatin Pwd 15 Gm Btl TOP 07/21/25 20:59 1 appln BID KYA Administration Pantoprazole Sodium 40 mg 06/22/25 11:15 06/22/25 11:41 Pantoprazole Inj 40 Mg Vial IVP 07/22/25 11:14 40 mg QDAY KYA Administration Quetiapine Fumarate 100 mg 06/21/25 21:00 06/21/25 20:01 Quetiapine Fumarate 100 Mg Tablet GT 07/21/25 20:59 100 mg HS KYA Administration Quetiapine Fumarate 50 mg 06/21/25 09:15 06/22/25 08:35 Quetiapine Fumarate 25 Mg Tablet GT 07/21/25 09:14 50 mg QAM KYA Administration Plan 24-year-old male with cerebral palsy, asthma, seizure disorder, chronic mastoiditis, recurrent pneumonia, and chronic PEG tube dependence presented with fever and seizure, was admitted for sepsis workup, and later transferred to the ICU for intubation due to concerns about airway protection. Patient has been downgraded from ICU to tele on 05/31/2025; however, re-upgraded to ICU on 06/05 due to tachycardia in 160s, tachypnea, persistent fever, and ventilator asynchrony. #Hospital acquired delirium #Agitation Differential diagnosis: ICU acquired delirium, opiate withdrawal, delirium Diagnostic workup: - Patient was weaned off of sedation and was downgraded to telemetry, however as sedatives were down titrated and telemetry patient had episode of severe agitation and ventilator asynchrony and was upgraded to ICU for further intervention. - EEG 05/11 unremarkable. Repeat EEG 05/20 showed electrographic seizure activity. Continuous EEG 05/22-05/23: no seizure activity or status epilepticus. Repeat EEG 06/05 negative for seizure activity. - MRI brain 05/23: showed chronic infections, no acute pathology. - Cisatracurium gtt discontinued - Versed gtt discontinued - Phenobarbital 129.6 discontinued - Oxycodone 10 mg discontinueded Treatment: - Continue Clonazepam 0.5 mg two times daily - Hold orders were added for respiratory rate <14, heart rate <70, or BP <100/60 for the above 3 meds #Tardive dyskinesia Diagnostic workup: - Nonpurposeful twisting movements of the patient's upper extremity with recurrent grimaces noted on 06/10 when the patient was taken off sedation - Patient's family notes that the patient has had a long history of nonpurposeful movement and has been previously prescribed deutetrabenazine for management by his neurologist - Per ICU, if deutetrabenazine remains ineffective, will increase to 12 mg twice daily after 1 week of starting the medication, may take up to 4 weeks to see maximal effect -Deutetrabenazine was discontinued in ICU, will continue to hold Treatment: -Consider resuming home dose Seroquel in a.m. #Sepsis #Bilateral chronic mastoiditis #Sinusitis #Bilateral otitis media #Bilateral otitis externa #Brittney parapsilosis #Community Acquired Pneumonia #UTI, E.coli, ESBL #Pseudomonas aeruginosa, sputum positive #Mucus plugs, right upper lung and left lower lung ? -History of chronic mastoiditis. -Met SIRS criteria on admission: T 105F, HR 176, RR 26, PaCO2 26, WBC 16.3. -Head CT (05/08/2025): prominent sphenoid ethmoid maxillary antral sinusitis, bilateral chronic mastoiditis, bilateral otitis media. -CT Orbit Sella Inner (05/08/2025): severe bilateral chronic mastoiditis, bilateral otitis externa and otitis media, bilateral cholesteatomas in the attics. -CXR (05/09/2025): Bilateral Perihilar Pneumonia. CXR (05/13/2025): Extensive Bilateral Pneumonia, CXR(05/19/2025): Significant bilateral Pneumonia -CT Chest/abd/pelvis (05/16/2025): Extensive bilateral pneumonia, Cystitis pattern, Cholelithiasis -A repeat Cocci serology test was negative -Lumbar puncture(05/10/2025): clear, WBC 3, glucose 70, total protein 25. CSF testing negative. -Respiratory viral panel (05/10/2025): rhinovirus/enterovirus and human metapneumovirus detected. -UA 05/08 and 05/16 negative. -06/17 Chest x-ray negative. CTAP negative [Culture Hx] -1st Blood Cx (05/08): No growth for 5 days. 2nd Blood Cx (05/11): No growth for 5 days, 3rd Blood Cx (05/16): No growth for 5 days, 4th Blood Cx (06/01): No growth for 48hrs -1st Sputum Cx (05/09): Pseudomonas aeruginosa (only sensitive to Meropenem, Tobramycin). 2nd Sputum Cx (05/13): Mixed oral hamilton. 3rd Sputum Cx (05/19): Mixed oral hamilton, 4th Sputum Cx (05/20): Brittney albicans, 5th Sputum Cx (06/01): GNR -CSF Cx (05/10): No growth for 3 days -Left Ear Cx (05/12): Brittney parapsilosis -Right Ear Cx(05/12): E.coli, ESBL (only sensitive to Ertapenem, Meropenem, Zosyn) -Urine Cx (06/01): E.coli, ESBL (only sensitive to Ertapenem, Meropenem, Nitrofurantoin, Zosyn) -Sputum culture 06/05 shows sensitive to Zosyn and intermittent resistance to cefepime [Antibiotics/Antifungal Hx] IV Zosyn 3.375g x1 (at 05/08) IV Ceftriaxone 1g x1 (at 05/08) IV Acyclovir 640mg q8hr (05/08-05/11) since LP negative. IV Ceftriaxone 2g q12hr (05/08-05/11) IV Vancomycin qd (05/08-05/11) since MRSA screen is negative Ofloxacin Opt enrique 0.3% 5 drops Both ears bid (05/09-05/18, 05/21-05/31) IV Meropenem 1000mg q8hr (05/12-05/22, 05/24-05/25) IV Doxycycline (05/16-05/18) IV Micafungin 100mg qd (05/28-05/30, 06/01-06/03) Ciprofloxacin Op Enrique 0.3% ear drops (06/02-06/03) -CXR is showing pneumonia, but CXR often remain abnormal for days to weeks. The infiltrate or consolidation can persist even though the infection has cleared. The radiographic improvement can take up to 4-6 weeks.? Patient is on minimal ventilator setting, oxygen requirement is stable, and has completed antibiotics course. -UTI unlikely sources of infection given low number of colonies and long antibiotics treatment in ICU. -Per ENT, Dr. Ojeda, patient does not have acute coalescent mastoiditis in either ear. Left and right middle ear is also not filled with effusion. -Chest x-ray 06/07 AM, showed a left lower lobe consolidation, ddx left lower lobe pneumonia versus mucous plug versus left pleural effusion versus mucous plug versus atelectasis lung ultrasound at bedside, effusion ruled out, no hepatization of the lung noted. Bedside bronchoscopy showed left lower lobe mucous plug, cleared with deep suction Plan: IV Zosyn 06/05-06/18 for 14-day course coverage of Pseudomonas IV Zosyn 3.375g x1 (at 05/08) IV Ceftriaxone 1g x1 (at 05/08) IV Acyclovir 640mg q8hr (05/08-05/11) IV Ceftriaxone 2g q12hr (05/08-05/11) IV Vancomycin qd (05/08-05/11) since MRSA screen is negative IV Meropenem 1000mg q8hr (05/12-05/22, 05/24-05/25) IV Doxycycline (05/16-05/18) IV Micafungin 100mg qd (05/28-05/30, 06/01-06/03) IV fluconazole 06/05-06/07 Follow-up: - Once weaned off sedation and patient has cough reflex intact and more awake/alert, will consider chest physiotherapy. #Phimosis s/p dorsal slit procedure 06/08/2025 #Paraphimosis (resolved) #Balanitis (resolved) Diagnostic workup: - Edema and tenderness of the glans penis, Swelling of the distal retracted foreskin, Constricting band of tissue proximal to the head of the penis at the coronal sulcus on presentation, s/p reduction of the paraphimosis by urologist Dr. Vargas on 05/09 and phimosis dorsal slit on 06/08 Treatment: Daily. - Monitor for worsening swelling, bleeding, or blockage of urine #Seizure disorder by history #Cerebral palsy by history Diagnostic workup: - Active seizure disorder ruled out, multiple EEGs negative for seizure activity Treatment: - Hold Depakote 250 mg GT every 8 hours and Continue Keppra 500 mg GT twice daily #Sinus tachycardia Differential diagnosis: Infection, hypersympathetic activity Diagnostic workup: - Did have positive sputum and urine culture for Pseudomonas and ESBL respectively - Patient's last fever was 06/12/2025 05:46 - Echocardiogram was obtained to rule out any vegetations TTE shows normal systolic function, EF 55 to 60%, diastolic dysfunction grade 1, no evidence of vegetation or endocarditis Treatment: -Propranolol discontinued - Continue antibiotics - Monitor for fever, use ibuprofen as needed for fever episode - Telemetry monitoring #Elevated alkaline phosphatase, improving #Low PTH #Abnormal nuclear medicine bone scan Differential diagnosis: increased osteoblastic activity in setting of vegetative state, bone infection (particularly of left mastoid), hypoparathyroidism, osteoarthritis Diagnostic workup: - PTH intact low at 3.6, calcium 9.9, vitamin D 25-OH 18.1 - Renal function intact, at baseline - Nuclear medicine bone scan shows minor asymmetric uptake left knee and mild increased uptake mid left tibia - Knee x-ray 06/06 and tibia-fibula x-ray 06/06 showed no findings diagnostic for osseous metastatic disease - MRI left leg 06/08 images severely degraded by continuous patient motion - No pain to palpation of bilateral lower extremities Plan: - discontinued sevelamer, consider resuming in a.m. - Patient to follow up on abnormal imaging outpatient #Tongue Laceration, traumatic #Gingivial Bleeding, Oral Trauma Diagnostic workup: -Known to have episodes of jaw spasms and teeth clenching with agitation. Had significant trauma to gums and tongue due to clenching of teeth 06/06 - No further bleeding appreciated in oral mucosa Treatment: - Patient required cisatracurium to relax jaw, pressure was applied locally, oral packing none, injections of lido?epinephrine x 3 to gums on 06/06 night Follow-up: - Monitor for bleeding #Bronchospasm #History of asthma -Magnesium for bronchodilator effect as needed. -Albuterol and Ipratropium as needed. #Failed extubation 05/12 #Acute hypoxic respiratory failure s/p tracheostomy #Ventilator dependent -Patient underwent tracheostomy on 05/26/2025 -Chest physiotherapy daily #Chronic PEG tube dependence -Nepro 1.8 Christ 1L RTH -Pro Stat Sugar Free 30 ml #Hyperphosphatemia -Sevelamer 1g GT 2 times daily, adjust if needed, being held #Normocytic Anemia #Leukocytosis-Resolving #Maculopapular rash to the buttocks-Resolving #Acute urinary retention-Resolved #Hypoalbuminemia-Resolved #Hyperkalemia-Resolved #Acute kidney injury-Resolved #Anion Gap Metabolic Acidosis-Resolved #Acute nonocclusive thrombus in the left brachial vein-Resolved Disposition: Tele Diet: Nepro 1.8 Christ 1L RTH and Pro Stat Sugar Free 30 ml GI prophylaxis: Lansoprazole 30mg GT qd DVT prophylaxis: SCDs,[id number] SC BID due to bleeding Code: FULL Assessment and plan discussed with my attending physician Dr. Rashid and Dr. Cross (PGY-2) Dr. Rain (PGY-1) - Internal medicine resident Attending Provider Attestation/Addendum I, Neva Rashid, , attest that I was physically present for the ulke portions of the service and evaluated the patient with the resident and I reviewed and discussed the case with the resident and agree with the resident's findings and plans of care as documented above Patient seen and eval this a.m. He continues to have fevers overnight, associated with his agitation and tachycardia. Transfer was declined by [facility] last night as fevers are thought to be likely psychogenic. Patient had been started on amantadine overnight by neurology. Activity/agitation appeared to be slightly diminished today. Patient is otherwise alert. He has scattered rhonchi noted on exam. He remains on blow-by at this time.
[2025-06-23] VITALS (14 sets, daily range): BP systolic 113–138; BP diastolic 85–86; PULSE 112–157; RESP 24–41; TEMP 36.6–38.2; O2SAT 96–100; BMI 26.1
[2025-06-23] MEDS: KETOROLAC INJ 30 MG/ML VIAL IVP (02:56)
[2025-06-23] MEDS: ACETAMINOPHEN SOL 325 MG/10 ML UDC GT ×2 (03:03→12:18)
--- NOTE | 2025-06-23 08:21 | PC.CM ---
Addendum entered by Hailey Esquivel RN 06/23/25 15:45: [address] Patient transfer canceled by Dr. Rashid. She states they will talk to family and they will work on getting patient transferred to LTAC. As per Ping SS patient has already been accepted. I notified and updated [facility] charge nurse. Addendum entered by Hailey Esquivel RN 06/23/25 12:08: 1130 [facility] transfer nurse Moraima called and they declined patient due to capacity. I notified Dr. Rashid. Patient declined by [facility], [place], [facility], and [facility]. Addendum entered by Hailey Esquivel RN 06/23/25 09:10: 0820 I spoke to [facility] and I provided a detailed report to Moraima. She asked me to fax clinicals and she would present patient to the neurology team. Original Note: 08 I called [facility] to follow up on transfer request. I spoke to transfer nurse Vaishali and she states patient has been declined. She states patient was reviewed by Dr. Lizzy Martínez and she states patient does not require higher level of care. I will update our MD.
[2025-06-23] MEDS: levETIRAcetam LIQD 500 MG/5 ML UDC 800 MG GT ×2 (08:35→20:05)
[2025-06-23] MEDS: NYSTATIN PWD 15 GM BTL TOP ×2 (08:36→20:06)
[2025-06-23] MEDS: HYDROmorphone INJ 2 MG/ML VIAL 1 MG IVP ×2 (14:27→20:05)
--- NOTE | 2025-06-23 16:16 | ESPR_ITS ---
<Statement entered by Robert Cross MD - 06/23/25 18:08> Patient was seen and examined at bedside. I agree on the assessment and plan on this note as documented by resident Dr Jose R Rain DO PGY1. 24-year-old male with past medical history as below admitted for fever. Patient has had a prolonged hospital course, attempted transfer to higher level of care was made for further neurologic evaluation for fever however patient has been refused from majority of facilities as they strongly believe that we have done a comprehensive workup and there is no other services they can offer, will discuss with patient's family regarding the cause of fever being psychogenic fevers associated with increased agitation and will discuss possible LTAC placement. Patient otherwise asymptomatic, continues to remain tachycardic with periods of agitation requiring as needed medication. Case discussed with attending Dr. Neva Moreno MD PGY-2 Documentation for date of: 06/23/25 Subjective Subjective Interval history: Patient has failed to be transferred. Currently discussing possbility of discharging to LTAC. Still have spike of fevers peaked at 100.5, with tachycardia (PA:155) and agitation. Given IV dilaudid 1mg x1. Effective mangement remains unclear at this time, and the patient is currently pending further evaluation and consideration of available treatment options. Exam Vital Signs Temp Pulse Resp BP Pulse Ox O2 Del Method O2 Flow Rate 99.9 F 155 H 31 H 113/86 H 100 Blow-by 8 06/23/25 13:18 06/23/25 12:00 06/23/25 12:00 06/23/25 12:00 06/23/25 12:00 06/23/25 12:00 06/23/25 12:00 FiO2 40 06/23/25 12:00 Narrative Exam Gen: Nonpurposeful movements, trached on blow by HEENT: NCAT, EOMI, Pupils reactive KARLO, not icteric, external ears normal. No rhinorrhea. Moist mucous membranes with no visible blood. Increased secretions noted. Neck: Supple, full range of motion, no observable masses, No meningeal sign. Lungs: Coarse breath sounds bilateral on blow-by CV: Sinus tachycardia, no murmurs appreciated. Abdomen: Soft, nondistended, No rebound tenderness, PEG tube in place, peristalsis present. Status post dorsal slit, no inflammation noted around penis MSK: No lower extremity edema, no redness, peripheral pulses presents, Contracted hands, decreased tone Skin: No, petechiae, lesions, erythematous. Some redness noted lower back. Neuro: Alert and moving extremitie, pupils reactive, nonpurposeful movements with facial grimacing. Objective Labs 06/24/25 04:40 06/24/25 04:40 ABG Interpretation ABG results: 05/09/25 05/09/25 05/09/25 11:56 13:40 18:50 ABG pH 7.40 7.27 L D 7.28 L ABG pCO2 40 43 55 H D ABG pO2 131 H 53 L* D 70 L ABG HCO3 25 20 26 ABG O2 Saturation 99 H 81 L 92 ABG Base Excess 0 -7 L -2 VBG pH VBG pCO2 VBG pO2 VBG Base Excess 05/10/25 05/11/25 05/12/25 00:14 05:06 01:18 ABG pH 7.35 7.33 L 7.39 ABG pCO2 42 D 54 H D 48 ABG pO2 103 D 93 94 ABG HCO3 23 28 H 29 H ABG O2 Saturation 99 H 98 98 ABG Base Excess -3 2 3 VBG pH VBG pCO2 VBG pO2 VBG Base Excess 05/12/25 05/12/25 05/13/25 03:58 11:50 05:10 ABG pH 7.46 H 7.39 7.19 L* D ABG pCO2 41 48 60 H D ABG pO2 105 58 L* D 114 H D ABG HCO3 29 H 29 H 23 ABG O2 Saturation 99 H 90 L 98 ABG Base Excess 5 H 4 H -6 L VBG pH VBG pCO2 VBG pO2 VBG Base Excess 05/17/25 05/18/25 05/19/25 01:30 04:09 04:43 ABG pH 7.38 7.43 7.47 H ABG pCO2 46 44 43 ABG pO2 90 83 80 L ABG HCO3 27 H 29 H 31 H ABG O2 Saturation 98 97 97 ABG Base Excess 2 5 H 7 H VBG pH VBG pCO2 VBG pO2 VBG Base Excess 05/21/25 05/21/25 05/31/25 04:18 06:33 08:06 ABG pH 7.37 D 7.46 H ABG pCO2 50 H 38 D ABG pO2 40 L* D 121 H D ABG HCO3 29 H 27 H ABG O2 Saturation 66 L 100 H ABG Base Excess 3 3 VBG pH 7.55 VBG pCO2 31 L VBG pO2 144 H VBG Base Excess 5 H 06/05/25 06/05/25 06/06/25 13:37 23:46 05:20 ABG pH 7.47 H 7.45 ABG pCO2 35 38 ABG pO2 200 H 54 L* D ABG HCO3 25 26 ABG O2 Saturation 101 H 89 L ABG Base Excess 2 2 VBG pH 7.50 VBG pCO2 34 L VBG pO2 90 H VBG Base Excess 4 H 06/10/25 17:41 ABG pH ABG pCO2 ABG pO2 ABG HCO3 ABG O2 Saturation ABG Base Excess VBG pH 7.40 VBG pCO2 43 VBG pO2 43 VBG Base Excess 2 Quality Measures Quality Measures VTE prophylaxis Assessment & Plan Assessment Current Active Medications: Generic Name Dose Route Start Last Admin Trade Name Freq PRN Reason Stop Dose Admin Acetaminophen 325 mg 06/16/25 16:18 06/23/25 12:18 Acetaminophen Enrique 325 Mg/10 Ml Udc GT 07/09/25 16:12 325 mg Q4HR PRN Administration pain (1-3) or fever > 100.4 Amantadine HCl 100 mg 06/23/25 14:30 06/23/25 14:57 Amantadine Hcl 100 Mg Capsule PO 06/30/25 14:29 100 mg BID@0700,1400 KYA Administration Clonazepam 0.5 mg 06/19/25 21:00 06/23/25 08:36 Clonazepam 0.5 Mg Tablet GT 06/28/25 20:59 0.5 mg BID KYA Administration Ketorolac Tromethamine 30 mg 06/21/25 09:42 06/23/25 02:56 Ketorolac Inj 30 Mg/Ml Vial IVP 06/26/25 09:41 30 mg Q6HR PRN Administration PAIN 4-10 Levetiracetam 800 mg 06/20/25 21:00 06/23/25 08:35 Levetiracetam Liqd 500 Mg/5 Ml Udc GT 07/20/25 20:59 800 mg BID KYA Administration Nystatin 0 gm 06/21/25 21:00 06/23/25 08:36 Nystatin Pwd 15 Gm Btl TOP 07/21/25 20:59 1 appln BID KYA Administration Pantoprazole Sodium 40 mg 06/22/25 11:15 06/23/25 08:35 Pantoprazole Inj 40 Mg Vial IVP 07/22/25 11:14 40 mg QDAY KYA Administration Quetiapine Fumarate 100 mg 06/21/25 21:00 06/22/25 20:38 Quetiapine Fumarate 100 Mg Tablet GT 07/21/25 20:59 100 mg HS KYA Administration Quetiapine Fumarate 50 mg 06/21/25 09:15 06/23/25 08:36 Quetiapine Fumarate 25 Mg Tablet GT 07/21/25 09:14 50 mg QAM KYA Administration Plan 24-year-old male with cerebral palsy, asthma, seizure disorder, chronic mastoiditis, recurrent pneumonia, and chronic PEG tube dependence presented with fever and seizure, was admitted for sepsis workup, and later transferred to the ICU for intubation due to concerns about airway protection. Patient has been downgraded from ICU to tele on 05/31/2025; however, re-upgraded to ICU on 06/05 due to tachycardia in 160s, tachypnea, persistent fever, and ventilator asynchrony. #Hospital acquired delirium #Agitation Differential diagnosis: ICU acquired delirium, opiate withdrawal, delirium Diagnostic workup: - Patient was weaned off of sedation and was downgraded to telemetry, however as sedatives were down titrated and telemetry patient had episode of severe agitation and ventilator asynchrony and was upgraded to ICU for further intervention. - EEG 05/11 unremarkable. Repeat EEG 05/20 showed electrographic seizure activity. Continuous EEG 05/22-05/23: no seizure activity or status epilepticus. Repeat EEG 06/05 negative for seizure activity. - MRI brain 05/23: showed chronic infections, no acute pathology. - Cisatracurium gtt discontinued - Versed gtt discontinued - Phenobarbital 129.6 discontinued - Oxycodone 10 mg discontinueded Treatment: -Amantadine 100mg po bid -Clonazepam 0.5 mg GT bid -Hold orders were added for respiratory rate <14, heart rate <70, or BP <100/60 for the above 3 meds #Tardive dyskinesia Diagnostic workup: - Nonpurposeful twisting movements of the patient's upper extremity with recurrent grimaces noted on 06/10 when the patient was taken off sedation - Patient's family notes that the patient has had a long history of nonpurposeful movement and has been previously prescribed deutetrabenazine for management by his neurologist - Per ICU, if deutetrabenazine remains ineffective, will increase to 12 mg twice daily after 1 week of starting the medication, may take up to 4 weeks to see maximal effect -Deutetrabenazine was discontinued in ICU, will continue to hold Treatment: -Seroquel 100mg GT HS -Seroquel 50mg GT QAM #Sepsis #Bilateral chronic mastoiditis #Sinusitis #Bilateral otitis media #Bilateral otitis externa #Brittney parapsilosis #Community Acquired Pneumonia #UTI, E.coli, ESBL #Pseudomonas aeruginosa, sputum positive #Mucus plugs, right upper lung and left lower lung ? -History of chronic mastoiditis. -Met SIRS criteria on admission: T 105F, HR 176, RR 26, PaCO2 26, WBC 16.3. -Head CT (05/08/2025): prominent sphenoid ethmoid maxillary antral sinusitis, bilateral chronic mastoiditis, bilateral otitis media. -CT Orbit Sella Inner (05/08/2025): severe bilateral chronic mastoiditis, bilateral otitis externa and otitis media, bilateral cholesteatomas in the attics. -CXR (05/09/2025): Bilateral Perihilar Pneumonia. CXR (05/13/2025): Extensive Bilateral Pneumonia, CXR(05/19/2025): Significant bilateral Pneumonia -CT Chest/abd/pelvis (05/16/2025): Extensive bilateral pneumonia, Cystitis pattern, Cholelithiasis -A repeat Cocci serology test was negative -Lumbar puncture(05/10/2025): clear, WBC 3, glucose 70, total protein 25. CSF testing negative. -Respiratory viral panel (05/10/2025): rhinovirus/enterovirus and human metapneumovirus detected. -UA 05/08 and 05/16 negative. -06/17 Chest x-ray negative. CTAP negative [Culture Hx] -1st Blood Cx (05/08): No growth for 5 days. 2nd Blood Cx (05/11): No growth for 5 days, 3rd Blood Cx (05/16): No growth for 5 days, 4th Blood Cx (06/01): No growth for 48hrs -1st Sputum Cx (05/09): Pseudomonas aeruginosa (only sensitive to Meropenem, Tobramycin). 2nd Sputum Cx (05/13): Mixed oral hamilton. 3rd Sputum Cx (05/19): Mixed oral hamilton, 4th Sputum Cx (05/20): Brittney albicans, 5th Sputum Cx (06/01): GNR -CSF Cx (05/10): No growth for 3 days -Left Ear Cx (05/12): Brittney parapsilosis -Right Ear Cx(05/12): E.coli, ESBL (only sensitive to Ertapenem, Meropenem, Zosyn) -Urine Cx (06/01): E.coli, ESBL (only sensitive to Ertapenem, Meropenem, Nitrofurantoin, Zosyn) -Sputum culture 06/05 shows sensitive to Zosyn and intermittent resistance to cefepime [Antibiotics/Antifungal Hx] IV Zosyn 3.375g x1 (at 05/08) IV Ceftriaxone 1g x1 (at 05/08) IV Acyclovir 640mg q8hr (05/08-05/11) since LP negative. IV Ceftriaxone 2g q12hr (05/08-05/11) IV Vancomycin qd (05/08-05/11) since MRSA screen is negative Ofloxacin Opt enrique 0.3% 5 drops Both ears bid (05/09-05/18, 05/21-05/31) IV Meropenem 1000mg q8hr (05/12-05/22, 05/24-05/25) IV Doxycycline (05/16-05/18) IV Micafungin 100mg qd (05/28-05/30, 06/01-06/03) Ciprofloxacin Op Enrique 0.3% ear drops (06/02-06/03) -CXR is showing pneumonia, but CXR often remain abnormal for days to weeks. The infiltrate or consolidation can persist even though the infection has cleared. The radiographic improvement can take up to 4-6 weeks.? Patient is on minimal ventilator setting, oxygen requirement is stable, and has completed antibiotics course. -UTI unlikely sources of infection given low number of colonies and long antibiotics treatment in ICU. -Per ENT, [place], patient does not have acute coalescent mastoiditis in either ear. Left and right middle ear is also not filled with effusion. -Chest x-ray 06/07 AM, showed a left lower lobe consolidation, ddx left lower lobe pneumonia versus mucous plug versus left pleural effusion versus mucous plug versus atelectasis lung ultrasound at bedside, effusion ruled out, no hepatization of the lung noted. Bedside bronchoscopy showed left lower lobe mucous plug, cleared with deep suction Plan: IV Zosyn 06/05-06/18 for 14-day course coverage of Pseudomonas IV Zosyn 3.375g x1 (at 05/08) IV Ceftriaxone 1g x1 (at 05/08) IV Acyclovir 640mg q8hr (05/08-05/11) IV Ceftriaxone 2g q12hr (05/08-05/11) IV Vancomycin qd (05/08-05/11) since MRSA screen is negative IV Meropenem 1000mg q8hr (05/12-05/22, 05/24-05/25) IV Doxycycline (05/16-05/18) IV Micafungin 100mg qd (05/28-05/30, 06/01-06/03) IV fluconazole 06/05-06/07 Follow-up: - Once weaned off sedation and patient has cough reflex intact and more awake/alert, will consider chest physiotherapy. #Phimosis s/p dorsal slit procedure 06/08/2025 #Paraphimosis (resolved) #Balanitis (resolved) Diagnostic workup: - Edema and tenderness of the glans penis, Swelling of the distal retracted foreskin, Constricting band of tissue proximal to the head of the penis at the coronal sulcus on presentation, s/p reduction of the paraphimosis by urologist Dr. Vargas on 05/09 and phimosis dorsal slit on 06/08 Treatment: Daily. - Monitor for worsening swelling, bleeding, or blockage of urine #Seizure disorder by history #Cerebral palsy by history Diagnostic workup: - Active seizure disorder ruled out, multiple EEGs negative for seizure activity Treatment: - Hold Depakote 250 mg GT every 8 hours and Continue Keppra 500 mg GT twice daily #Sinus tachycardia Differential diagnosis: Infection, hypersympathetic activity Diagnostic workup: - Did have positive sputum and urine culture for Pseudomonas and ESBL respectively - Patient's last fever was 06/12/2025 05:46 - Echocardiogram was obtained to rule out any vegetations TTE shows normal systolic function, EF 55 to 60%, diastolic dysfunction grade 1, no evidence of vegetation or endocarditis Treatment: -Propranolol discontinued - Continue antibiotics - Monitor for fever, use ibuprofen as needed for fever episode - Telemetry monitoring #Elevated alkaline phosphatase, improving #Low PTH #Abnormal nuclear medicine bone scan Differential diagnosis: increased osteoblastic activity in setting of vegetative state, bone infection (particularly of left mastoid), hypoparathyroidism, osteoarthritis Diagnostic workup: - PTH intact low at 3.6, calcium 9.9, vitamin D 25-OH 18.1 - Renal function intact, at baseline - Nuclear medicine bone scan shows minor asymmetric uptake left knee and mild increased uptake mid left tibia - Knee x-ray 06/06 and tibia-fibula x-ray 06/06 showed no findings diagnostic for osseous metastatic disease - MRI left leg 06/08 images severely degraded by continuous patient motion - No pain to palpation of bilateral lower extremities Plan: - discontinued sevelamer, consider resuming in a.m. - Patient to follow up on abnormal imaging outpatient #Tongue Laceration, traumatic #Gingivial Bleeding, Oral Trauma Diagnostic workup: -Known to have episodes of jaw spasms and teeth clenching with agitation. Had significant trauma to gums and tongue due to clenching of teeth 06/06 - No further bleeding appreciated in oral mucosa Treatment: - Patient required cisatracurium to relax jaw, pressure was applied locally, oral packing none, injections of lido?epinephrine x 3 to gums on 06/06 night Follow-up: - Monitor for bleeding #Bronchospasm #History of asthma -Magnesium for bronchodilator effect as needed. -Albuterol and Ipratropium as needed. #Failed extubation 05/12 #Acute hypoxic respiratory failure s/p tracheostomy #Ventilator dependent -Patient underwent tracheostomy on 05/26/2025 -Chest physiotherapy daily #Chronic PEG tube dependence -Nepro 1.8 Christ 1L RTH -Pro Stat Sugar Free 30 ml #Hyperphosphatemia -Sevelamer 1g GT 2 times daily, adjust if needed, being held #Normocytic Anemia #Leukocytosis-Resolving #Maculopapular rash to the buttocks-Resolving #Acute urinary retention-Resolved #Hypoalbuminemia-Resolved #Hyperkalemia-Resolved #Acute kidney injury-Resolved #Anion Gap Metabolic Acidosis-Resolved #Acute nonocclusive thrombus in the left brachial vein-Resolved Disposition: Tele Diet: Nepro 1.8 Christ 1L RTH and Pro Stat Sugar Free 30 ml GI prophylaxis: Lansoprazole 30mg GT qd DVT prophylaxis: SCDs,[id number] SC BID due to bleeding Code: FULL Assessment and plan discussed with my attending physician Dr. Rashid and Dr. Cross (PGY-2) Dr. Rain (PGY-1) - Internal medicine resident Attending Provider Attestation/Addendum INeva, , attest that I was physically present for the luke portions of the service and evaluated the patient with the resident and I reviewed and discussed the case with the resident and agree with the resident's findings and plans of care as documented above Patient seen and evaluated this AM. He remains unchanged with periodic fevers, tachycardia and agitation. Transfer to higher level of care was attempted. However, transfer was declined as fevers are likely neurogenic and workup has been completed on this admission. Tachcyardia appears to be slighly improved after start of amantadine. Will continue with supportive management. Anticipate DC on Friday to .
--- NOTE | 2025-06-23 19:40 | PC.NURSE ---
pt found bleeding slightly from mouth, appears that patient bit tongue due to agitation. MD made aware, bleeding stopped on its own, unable to take pictures due to pt not able to follow commands. dilauded 1mg IVP x1 ordered per MD.
[2025-06-24] VITALS (9 sets, daily range): BP systolic 99–121; BP diastolic 56–86; PULSE 108–141; RESP 23–42; TEMP 37.4–37.7; O2SAT 97–100; BMI 24.0
[2025-06-24] MEDS: KETOROLAC INJ 30 MG/ML VIAL IVP ×3 (01:41→23:43)
[2025-06-24 05:42] LABS: Basophils # (Auto) 0.1 Thou/mm3 (0.0-0.2); Basophils % (Auto) 1 % (0-2.5); Eosinophils # (Auto) 0.8 Thou/mm3 (0.0-0.5); Eosinophils % (Auto) 7 % (0-10); Hematocrit 29.3 % (41.0-53.0); Immature Granulocytes Auto 0.05 Thou/mm3 (0.00-0.00); Lymphocytes # (Auto) 2.7 Thou/mm3 (1.0-4.8); Lymphocytes % (Auto) 22 % (10-50); Mean Corpuscular HGB Conc 30.0 g/dl (31.0-37.0); Mean Corpuscular Hemoglobin 25.9 pg (25.0-35.0); Mean Corpuscular Volume 86 fL (80-100); Monocytes # (Auto) 1.3 Thou/mm3 (0.0-0.8); Monocytes % (Auto) 11 % (0-12); Neutrophils # (Auto) 7.4 Thou/mm3 (1.8-7.7); Neutrophils % (Auto) 60 % (37-80); Nucleated Red Blood Cell # 0.00 Thou/mm3 (0.00-0.00); Nucleated Red Blood Cell % 0 /100 WBC (0); Platelet Count 490 Thou/mm3 (140-440); RDW Standard Deviation 50.6 fL (35.1-43.9); Red Blood Count 3.40 Miln/mm3 (4.50-5.90); White Blood Count 12.3 Thou/mm3 (3.8-10.6)
[2025-06-24 05:46] LABS: Hemoglobin 8.8 g/dL (13.5-16.0)
[2025-06-24 06:09] LABS: Alanine Aminotransferase 42 U/L (10-49); Albumin, Serum 4.7 gm/dL (3.5-5.0); Albumin/Globulin Ratio 1.6 (1.2-2.2); Alkaline Phosphatase 111 U/L (46-116); Anion Gap 11 (7-16); Aspartate Amino Transferase 34 U/L (0-34); BUN/Creatinine Ratio 32 Ratio (12-20); Bilirubin,Total 0.2 mg/dL (0.3-1.2); Blood Urea Nitrogen 29 mg/dL (9-23); Calcium 10.4 mg/dL (8.3-10.6); Calcium (Corrected) 10.4 mg/dL (8.5-10.1); Carbon Dioxide 25.7 mMol/L (20.0-31.0); Chloride 104 mMol/L (98-107); Creatinine (Component) 0.9 mg/dL (0.6-1.3); Estimated Creatinine Clearance 93.6 mL/min (>60); Globulin 3.0 gm/dL (2.3-3.5); Glucose 107 mg/dL (74-106); Magnesium 2.0 mg/dL (1.6-2.6); Osmolality,Calculated 287 (275-295); Phosphorous 4.6 mg/dL (2.4-5.1); Potassium 3.5 mMol/L (3.4-5.1); Sodium 141 mMol/L (136-145); Total Protein 7.7 gm/dL (5.7-8.2); eGFR > 60 See Note
[2025-06-24] MEDS: levETIRAcetam LIQD 500 MG/5 ML UDC 800 MG GT ×2 (08:12→20:16)
[2025-06-24] MEDS: NYSTATIN PWD 15 GM BTL TOP ×2 (08:12→20:17)
[2025-06-24] MEDS: POTASSIUM CHL 10 mEq IVPB 10 MEQ/100 ML BAG 100 MEQ IV ×4 (08:41→12:17)
[2025-06-24] MEDS: RINGERS LACTATED 1000 ML 500 ML 999 ML IV (10:44)
--- NOTE | 2025-06-24 12:25 | PC.SS ---
Addendum entered by Ursula Miller 06/24/25 14:35: Rounding note: Experiencing fevers. Family requesting [facility] Subacute placement again. Meeting with Dr. Baer pending for 06/26. Original Note: Received call from [facility] coordinator [phone], he explained patient can be accepted if family and medical team agreeable. Atul further explained [facility] and [facility] facilities are reviewing patient and willing to accept patient. Atul requested an updated Progress Note and 72MAR be submitted via [employer] for ongoing review.
--- NOTE | 2025-06-24 16:06 | ESPR_ITS ---
<Statement entered by Robert Cross MD - 06/25/25 05:28> Patient was seen and examined at bedside. I agree on the assessment and plan on this note as documented by resident Dr Jose R Rain DO PGY1. 24-year-old male with past medical history as below has prolonged hospital course, patient has not had fevers in the last 24 hours, agitation is improved heart rate currently in the 120s. Patient was tried to transfer to tertiary level of care for further investigation for fever per neurology service. Patient has been refused by [facility], [place], [place] and [facility]: As per all tertiary care centers a comprehensive workup has been conducted throughout this hospitalization and there is no new services that can be offered. Used HCIN measurement supervisor [id number] [place], informed and updated mother regarding the transfer and the cause of fever being psychogenic, mother is extremely emotional and still attributes the fever to her son's recurrent ear infections, she reports that he flexes his arms and holds his ears when his ears are in pain and his ears were cleaned out a year ago and after that he did not have a fever for 1 year. I explained to her in detail that we have done multiple imaging for the hospitalization, Dr. Mcconnell ENT specialist who knows the patient well evaluated him for this hospitalization and does not attribute the fevers to underlying ear infection. Explained to her that as suggested by her neurologist Dr. Martínez [place] [facility] [place] possibly has psychogenic fevers secondary to agitation, she verbalized understanding. However remains irritated and asking for further plan regarding her son. Informed her that we will reach out to subacute and discussed with Dr. Major regarding placement to subacute however last time when I discussed the case with Dr. Major he recommended LTAC for comprehensive and superior care for David Baltazar, will reach out to Dr. Major again in a.m. Otherwise patient has been accepted at LTAC, family is hesitant due to location of LTAC, will update patient's father after discussion with Dr. Major. Case discussed with attending Dr. Conrado Cross MD PGY-2 Documentation for date of: 06/24/25 Subjective Subjective Interval history: All tertiary care centers contacted have declined the patient's transfer. Their teams stated that the evaluation and management provided here are consistent with what they would have offered, and they do not believe the patient would benefit from transfer to their facilities. The consulting neurologist also noted that the patient's fever pattern appears unlikely to be infectious in origin and may represent psychogenic fever, as the episodes coincide with awakening and associated tachycardia. This information was discussed with the patient's family, including an explanation of how the patient's presentation is atypical and how the current findings support the recommendations received from the tertiary centers. The family expressed understanding. Possible discharge to LTAC or subacute facility has been discussed. Exam Vital Signs Temp Pulse Resp BP Pulse Ox O2 Del Method O2 Flow Rate 99.8 F 111 H 36 H 112/64 100 Blow-by 10 06/24/25 12:00 06/24/25 12:00 06/24/25 12:00 06/24/25 12:00 06/24/25 12:00 06/24/25 12:00 06/24/25 06:20 FiO2 50 06/24/25 12:00 Narrative Exam Gen: Nonpurposeful movements, trached on blow by HEENT: NCAT, EOMI, Pupils reactive KARLO, not icteric, external ears normal. No rhinorrhea. Moist mucous membranes with no visible blood. Increased secretions noted. Neck: Supple, full range of motion, no observable masses, No meningeal sign. Lungs: Coarse breath sounds bilateral on blow-by CV: Sinus tachycardia, no murmurs appreciated. Abdomen: Soft, nondistended, No rebound tenderness, PEG tube in place, peristalsis present. Status post dorsal slit, no inflammation noted around penis MSK: No lower extremity edema, no redness, peripheral pulses presents, Contracted hands, decreased tone Skin: No, petechiae, lesions, erythematous. Some redness noted lower back. Neuro: Alert and moving extremitie, pupils reactive, nonpurposeful movements with facial grimacing. Objective Labs 06/24/25 04:40 06/24/25 04:40 Labs: Laboratory Results - last 24 hr 06/24/25 04:40 WBC 12.3 H RBC 3.40 L Hgb 8.8 L Hct 29.3 L MCV 86 MCH 25.9 MCHC 30.0 L RDW Std Deviation 50.6 H Plt Count 490 H D Neut % (Auto) 60 Lymph % (Auto) 22 [place] % (Auto) 11 Eos % (Auto) 7 Baso % (Auto) 1 Neut # (Auto) 7.4 Lymph # (Auto) 2.7 [place] # (Auto) 1.3 H Eos # (Auto) 0.8 H Baso # (Auto) 0.1 Immature Gran # (Auto) 0.05 H Absolute Nucleated RBC 0.00 Immature Gran % 0 Nucleated RBC % 0 Sodium 141 Potassium 3.5 D Chloride 104 Carbon Dioxide 25.7 Anion Gap 11 BUN 29 H Creatinine 0.9 Estim Creat Clear Calc 93.6 eGFR > 60 BUN/Creatinine Ratio 32 H Glucose 107 H Calculated Osmolality 287 Calcium 10.4 Corrected Calcium 10.4 H Phosphorus 4.6 Magnesium 2.0 Total Bilirubin 0.2 L AST 34 ALT 42 Alkaline Phosphatase 111 Total Protein 7.7 Albumin 4.7 Globulin 3.0 Albumin/Globulin Ratio 1.6 ABG Interpretation ABG results: 05/09/25 05/09/25 05/09/25 11:56 13:40 18:50 ABG pH 7.40 7.27 L D 7.28 L ABG pCO2 40 43 55 H D ABG pO2 131 H 53 L* D 70 L ABG HCO3 25 20 26 ABG O2 Saturation 99 H 81 L 92 ABG Base Excess 0 -7 L -2 VBG pH VBG pCO2 VBG pO2 VBG Base Excess 05/10/25 05/11/25 05/12/25 00:14 05:06 01:18 ABG pH 7.35 7.33 L 7.39 ABG pCO2 42 D 54 H D 48 ABG pO2 103 D 93 94 ABG HCO3 23 28 H 29 H ABG O2 Saturation 99 H 98 98 ABG Base Excess -3 2 3 VBG pH VBG pCO2 VBG pO2 VBG Base Excess 05/12/25 05/12/25 05/13/25 03:58 11:50 05:10 ABG pH 7.46 H 7.39 7.19 L* D ABG pCO2 41 48 60 H D ABG pO2 105 58 L* D 114 H D ABG HCO3 29 H 29 H 23 ABG O2 Saturation 99 H 90 L 98 ABG Base Excess 5 H 4 H -6 L VBG pH VBG pCO2 VBG pO2 VBG Base Excess 05/17/25 05/18/25 05/19/25 01:30 04:09 04:43 ABG pH 7.38 7.43 7.47 H ABG pCO2 46 44 43 ABG pO2 90 83 80 L ABG HCO3 27 H 29 H 31 H ABG O2 Saturation 98 97 97 ABG Base Excess 2 5 H 7 H VBG pH VBG pCO2 VBG pO2 VBG Base Excess 05/21/25 05/21/25 05/31/25 04:18 06:33 08:06 ABG pH 7.37 D 7.46 H ABG pCO2 50 H 38 D ABG pO2 40 L* D 121 H D ABG HCO3 29 H 27 H ABG O2 Saturation 66 L 100 H ABG Base Excess 3 3 VBG pH 7.55 VBG pCO2 31 L VBG pO2 144 H VBG Base Excess 5 H 06/05/25 06/05/25 06/06/25 13:37 23:46 05:20 ABG pH 7.47 H 7.45 ABG pCO2 35 38 ABG pO2 200 H 54 L* D ABG HCO3 25 26 ABG O2 Saturation 101 H 89 L ABG Base Excess 2 2 VBG pH 7.50 VBG pCO2 34 L VBG pO2 90 H VBG Base Excess 4 H 06/10/25 17:41 ABG pH ABG pCO2 ABG pO2 ABG HCO3 ABG O2 Saturation ABG Base Excess VBG pH 7.40 VBG pCO2 43 VBG pO2 43 VBG Base Excess 2 Quality Measures Quality Measures VTE prophylaxis Assessment & Plan Assessment Current Active Medications: Generic Name Dose Route Start Last Admin Trade Name Freq PRN Reason Stop Dose Admin Acetaminophen 325 mg 06/16/25 16:18 06/23/25 12:18 Acetaminophen Racquel 325 Mg/10 Ml Udc GT 07/09/25 16:12 325 mg Q4HR PRN Administration pain (1-3) or fever > 100.4 Amantadine HCl 100 mg 06/23/25 14:30 06/24/25 13:38 Amantadine Hcl 100 Mg Capsule PO 06/30/25 14:29 100 mg BID@0700,1400 KYA Administration Clonazepam 0.5 mg 06/19/25 21:00 06/24/25 08:10 Clonazepam 0.5 Mg Tablet GT 06/28/25 20:59 0.5 mg BID KYA Administration Ketorolac Tromethamine 30 mg 06/21/25 09:42 06/24/25 10:36 Ketorolac Inj 30 Mg/Ml Vial IVP 06/26/25 09:41 30 mg Q6HR PRN Administration PAIN 4-10 Levetiracetam 800 mg 06/20/25 21:00 06/24/25 08:12 Levetiracetam Liqd 500 Mg/5 Ml Udc GT 07/20/25 20:59 800 mg BID KYA Administration Nystatin 0 gm 06/21/25 21:00 06/24/25 08:12 Nystatin Pwd 15 Gm Btl TOP 07/21/25 20:59 1 appln BID KYA Administration Pantoprazole Sodium 40 mg 06/22/25 11:15 06/24/25 08:12 Pantoprazole Inj 40 Mg Vial IVP 07/22/25 11:14 40 mg QDAY KYA Administration Quetiapine Fumarate 100 mg 06/21/25 21:00 06/23/25 20:05 Quetiapine Fumarate 100 Mg Tablet GT 07/21/25 20:59 100 mg HS KYA Administration Quetiapine Fumarate 50 mg 06/21/25 09:15 06/24/25 08:10 Quetiapine Fumarate 25 Mg Tablet GT 07/21/25 09:14 50 mg QAM KYA Administration Plan 24-year-old male with cerebral palsy, asthma, seizure disorder, chronic mastoiditis, recurrent pneumonia, and chronic PEG tube dependence presented with fever and seizure, was admitted for sepsis workup, and later transferred to the ICU for intubation due to concerns about airway protection. Patient has been downgraded from ICU to tele on 05/31/2025; however, re-upgraded to ICU on 06/05 due to tachycardia in 160s, tachypnea, persistent fever, and ventilator asynchrony. #Hospital acquired delirium #Agitation Differential diagnosis: ICU acquired delirium, opiate withdrawal, delirium Diagnostic workup: - Patient was weaned off of sedation and was downgraded to telemetry, however as sedatives were down titrated and telemetry patient had episode of severe agitation and ventilator asynchrony and was upgraded to ICU for further intervention. - EEG 05/11 unremarkable. Repeat EEG 05/20 showed electrographic seizure activity. Continuous EEG 05/22-05/23: no seizure activity or status epilepticus. Repeat EEG 06/05 negative for seizure activity. - MRI brain 05/23: showed chronic infections, no acute pathology. - Cisatracurium gtt discontinued - Versed gtt discontinued - Phenobarbital 129.6 discontinued - Oxycodone 10 mg discontinueded Treatment: -Amantadine 100mg po bid -Clonazepam 0.5 mg GT bid -Hold orders were added for respiratory rate <14, heart rate <70, or BP <100/60 for the above 3 meds #Tardive dyskinesia Diagnostic workup: - Nonpurposeful twisting movements of the patient's upper extremity with recurrent grimaces noted on 06/10 when the patient was taken off sedation - Patient's family notes that the patient has had a long history of nonpurposeful movement and has been previously prescribed deutetrabenazine for management by his neurologist - Per ICU, if deutetrabenazine remains ineffective, will increase to 12 mg twice daily after 1 week of starting the medication, may take up to 4 weeks to see maximal effect -Deutetrabenazine was discontinued in ICU, will continue to hold Treatment: -Seroquel 100mg GT HS -Seroquel 50mg GT QAM #Sepsis #Bilateral chronic mastoiditis #Sinusitis #Bilateral otitis media #Bilateral otitis externa #Brittney parapsilosis #Community Acquired Pneumonia #UTI, E.coli, ESBL #Pseudomonas aeruginosa, sputum positive #Mucus plugs, right upper lung and left lower lung ? -History of chronic mastoiditis. -Met SIRS criteria on admission: T 105F, HR 176, RR 26, PaCO2 26, WBC 16.3. -Head CT (05/08/2025): prominent sphenoid ethmoid maxillary antral sinusitis, bilateral chronic mastoiditis, bilateral otitis media. -CT Orbit Sella Inner (05/08/2025): severe bilateral chronic mastoiditis, bilateral otitis externa and otitis media, bilateral cholesteatomas in the attics. -CXR (05/09/2025): Bilateral Perihilar Pneumonia. CXR (05/13/2025): Extensive Bilateral Pneumonia, CXR(05/19/2025): Significant bilateral Pneumonia -CT Chest/abd/pelvis (05/16/2025): Extensive bilateral pneumonia, Cystitis pattern, Cholelithiasis -A repeat Cocci serology test was negative -Lumbar puncture(05/10/2025): clear, WBC 3, glucose 70, total protein 25. CSF testing negative. -Respiratory viral panel (05/10/2025): rhinovirus/enterovirus and human metapneumovirus detected. -UA 05/08 and 05/16 negative. -06/17 Chest x-ray negative. CTAP negative [Culture Hx] -1st Blood Cx (05/08): No growth for 5 days. 2nd Blood Cx (05/11): No growth for 5 days, 3rd Blood Cx (05/16): No growth for 5 days, 4th Blood Cx (06/01): No growth for 48hrs -1st Sputum Cx (05/09): Pseudomonas aeruginosa (only sensitive to Meropenem, Tobramycin). 2nd Sputum Cx (05/13): Mixed oral hamilton. 3rd Sputum Cx (05/19): Mixed oral hamilton, 4th Sputum Cx (05/20): Brittney albicans, 5th Sputum Cx (06/01): GNR -CSF Cx (05/10): No growth for 3 days -Left Ear Cx (05/12): Brittney parapsilosis -Right Ear Cx(05/12): E.coli, ESBL (only sensitive to Ertapenem, Meropenem, Zosyn) -Urine Cx (06/01): E.coli, ESBL (only sensitive to Ertapenem, Meropenem, Nitrofurantoin, Zosyn) -Sputum culture 06/05 shows sensitive to Zosyn and intermittent resistance to cefepime [Antibiotics/Antifungal Hx] IV Zosyn 3.375g x1 (at 05/08) IV Ceftriaxone 1g x1 (at 05/08) IV Acyclovir 640mg q8hr (05/08-05/11) since LP negative. IV Ceftriaxone 2g q12hr (05/08-05/11) IV Vancomycin qd (05/08-05/11) since MRSA screen is negative Ofloxacin Opt racquel 0.3% 5 drops Both ears bid (05/09-05/18, 05/21-05/31) IV Meropenem 1000mg q8hr (05/12-05/22, 05/24-05/25) IV Doxycycline (05/16-05/18) IV Micafungin 100mg qd (05/28-05/30, 06/01-06/03) Ciprofloxacin Op Racquel 0.3% ear drops (06/02-06/03) -CXR is showing pneumonia, but CXR often remain abnormal for days to weeks. The infiltrate or consolidation can persist even though the infection has cleared. The radiographic improvement can take up to 4-6 weeks.? Patient is on minimal ventilator setting, oxygen requirement is stable, and has completed antibiotics course. -UTI unlikely sources of infection given low number of colonies and long antibiotics treatment in ICU. -Per ENT, Dr. Ojeda, patient does not have acute coalescent mastoiditis in either ear. Left and right middle ear is also not filled with effusion. -Chest x-ray 06/07 AM, showed a left lower lobe consolidation, ddx left lower lobe pneumonia versus mucous plug versus left pleural effusion versus mucous plug versus atelectasis lung ultrasound at bedside, effusion ruled out, no hepatization of the lung noted. Bedside bronchoscopy showed left lower lobe mucous plug, cleared with deep suction Plan: IV Zosyn 06/05-06/18 for 14-day course coverage of Pseudomonas IV Zosyn 3.375g x1 (at 05/08) IV Ceftriaxone 1g x1 (at 05/08) IV Acyclovir 640mg q8hr (05/08-05/11) IV Ceftriaxone 2g q12hr (05/08-05/11) IV Vancomycin qd (05/08-05/11) since MRSA screen is negative IV Meropenem 1000mg q8hr (05/12-05/22, 05/24-05/25) IV Doxycycline (05/16-05/18) IV Micafungin 100mg qd (05/28-05/30, 06/01-06/03) IV fluconazole 06/05-06/07 Follow-up: - Once weaned off sedation and patient has cough reflex intact and more awake/alert, will consider chest physiotherapy. #Phimosis s/p dorsal slit procedure 06/08/2025 #Paraphimosis (resolved) #Balanitis (resolved) Diagnostic workup: - Edema and tenderness of the glans penis, Swelling of the distal retracted foreskin, Constricting band of tissue proximal to the head of the penis at the coronal sulcus on presentation, s/p reduction of the paraphimosis by urologist Dr. Vargas on 05/09 and phimosis dorsal slit on 06/08 Treatment: Daily. - Monitor for worsening swelling, bleeding, or blockage of urine #Seizure disorder by history #Cerebral palsy by history Diagnostic workup: - Active seizure disorder ruled out, multiple EEGs negative for seizure activity Treatment: - Hold Depakote 250 mg GT every 8 hours and Continue Keppra 500 mg GT twice daily #Sinus tachycardia Differential diagnosis: Infection, hypersympathetic activity Diagnostic workup: - Did have positive sputum and urine culture for Pseudomonas and ESBL respectively - Patient's last fever was 06/12/2025 05:46 - Echocardiogram was obtained to rule out any vegetations TTE shows normal systolic function, EF 55 to 60%, diastolic dysfunction grade 1, no evidence of vegetation or endocarditis Treatment: -Propranolol discontinued - Continue antibiotics - Monitor for fever, use ibuprofen as needed for fever episode - Telemetry monitoring #Elevated alkaline phosphatase, improving #Low PTH #Abnormal nuclear medicine bone scan Differential diagnosis: increased osteoblastic activity in setting of vegetative state, bone infection (particularly of left mastoid), hypoparathyroidism, osteoarthritis Diagnostic workup: - PTH intact low at 3.6, calcium 9.9, vitamin D 25-OH 18.1 - Renal function intact, at baseline - Nuclear medicine bone scan shows minor asymmetric uptake left knee and mild increased uptake mid left tibia - Knee x-ray 06/06 and tibia-fibula x-ray 06/06 showed no findings diagnostic for osseous metastatic disease - MRI left leg 06/08 images severely degraded by continuous patient motion - No pain to palpation of bilateral lower extremities Plan: - discontinued sevelamer, consider resuming in a.m. - Patient to follow up on abnormal imaging outpatient #Tongue Laceration, traumatic #Gingivial Bleeding, Oral Trauma Diagnostic workup: -Known to have episodes of jaw spasms and teeth clenching with agitation. Had significant trauma to gums and tongue due to clenching of teeth 06/06 - No further bleeding appreciated in oral mucosa Treatment: - Patient required cisatracurium to relax jaw, pressure was applied locally, oral packing none, injections of lido?epinephrine x 3 to gums on 06/06 night Follow-up: - Monitor for bleeding #Bronchospasm #History of asthma -Magnesium for bronchodilator effect as needed. -Albuterol and Ipratropium as needed. #Failed extubation 05/12 #Acute hypoxic respiratory failure s/p tracheostomy #Ventilator dependent -Patient underwent tracheostomy on 05/26/2025 -Chest physiotherapy daily #Chronic PEG tube dependence -Nepro 1.8 Christ 1L RTH -Pro Stat Sugar Free 30 ml #Hyperphosphatemia -Sevelamer 1g GT 2 times daily, adjust if needed, being held #Normocytic Anemia #Leukocytosis-Resolving #Maculopapular rash to the buttocks-Resolving #Acute urinary retention-Resolved #Hypoalbuminemia-Resolved #Hyperkalemia-Resolved #Acute kidney injury-Resolved #Anion Gap Metabolic Acidosis-Resolved #Acute nonocclusive thrombus in the left brachial vein-Resolved Disposition: Tele Diet: Nepro 1.8 Christ 1L RTH and Pro Stat Sugar Free 30 ml GI prophylaxis: Lansoprazole 30mg GT qd DVT prophylaxis: SCDs,[id number] SC BID due to bleeding Code: FULL Assessment and plan discussed with my attending physician Dr. Camp and Dr. Cross (PGY-2) Dr. Rain (PGY-1) - Internal medicine resident Attending Provider Attestation/Addendum Patient was seen and evaluated in room 253. He appears calm. Heart rate in the 120s. Blood pressure is stable. He is on blow-by and tolerating. I discussed with and supervised the resident physician who took care of this patient. I agree with the assessment and plan as above. Plan to DC to LTAC versus subacute.
[2025-06-25] VITALS (10 sets, daily range): BP systolic 100–122; BP diastolic 59–87; PULSE 125–157; RESP 19–44; TEMP 36.6–38.6; O2SAT 97–100
[2025-06-25] MEDS: KETOROLAC INJ 30 MG/ML VIAL IVP ×2 (08:13→20:46)
[2025-06-25] MEDS: NYSTATIN PWD 15 GM BTL TOP ×2 (08:13→20:38)
[2025-06-25] MEDS: levETIRAcetam LIQD 500 MG/5 ML UDC 800 MG GT ×2 (08:35→20:36)
[2025-06-25] MEDS: ACETAMINOPHEN SOL 325 MG/10 ML UDC GT ×2 (13:54→22:42)
--- NOTE | 2025-06-25 15:15 | ESPR_ITS ---
Documentation for date of: 06/25/25 Subjective Subjective Interval history: Patient seen examined at bedside. Continues to have periods of agitation, will give Dilaudid as needed. 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 Major from [facility] for possible placement however patient has been accepted to LTAC already. Yesterday I did explain to the mother regarding underlying diagnosis of psychogenic fever. Patient has increased secretion will give Mucomyst x 1 with albuterol x 1 Exam Vital Signs Temp Pulse Resp BP Pulse Ox O2 Del Method O2 Flow Rate 97.8 F 127 H 19 117/85 H 100 Blow-by 10 06/25/25 12:00 06/25/25 12:00 06/25/25 12:00 06/25/25 12:00 06/25/25 12:00 06/24/25 16:00 06/25/25 07:30 FiO2 50 06/25/25 07:30 Narrative Exam Gen: Nonpurposeful movements, trached on blow by HEENT: NCAT, EOMI, Pupils reactive KARLO, not icteric, external ears normal. No rhinorrhea. Moist mucous membranes with no visible blood. Increased secretions noted. Neck: Supple, full range of motion, no observable masses, No meningeal sign. Lungs: Coarse breath sounds bilateral on blow-by CV: Sinus tachycardia, no murmurs appreciated. Abdomen: Soft, nondistended, No rebound tenderness, PEG tube in place, peristalsis present. Status post dorsal slit, no inflammation noted around penis MSK: No lower extremity edema, no redness, peripheral pulses presents, Contracted hands, decreased tone Skin: No, petechiae, lesions, erythematous. Some redness noted lower back. Neuro: Alert and moving extremitie, pupils reactive, nonpurposeful movements with facial grimacing. Objective Labs 06/24/25 04:40 06/24/25 04:40 ABG Interpretation ABG results: 05/09/25 05/09/25 05/09/25 11:56 13:40 18:50 ABG pH 7.40 7.27 L D 7.28 L ABG pCO2 40 43 55 H D ABG pO2 131 H 53 L* D 70 L ABG HCO3 25 20 26 ABG O2 Saturation 99 H 81 L 92 ABG Base Excess 0 -7 L -2 VBG pH VBG pCO2 VBG pO2 VBG Base Excess 05/10/25 05/11/25 05/12/25 00:14 05:06 01:18 ABG pH 7.35 7.33 L 7.39 ABG pCO2 42 D 54 H D 48 ABG pO2 103 D 93 94 ABG HCO3 23 28 H 29 H ABG O2 Saturation 99 H 98 98 ABG Base Excess -3 2 3 VBG pH VBG pCO2 VBG pO2 VBG Base Excess 05/12/25 05/12/25 05/13/25 03:58 11:50 05:10 ABG pH 7.46 H 7.39 7.19 L* D ABG pCO2 41 48 60 H D ABG pO2 105 58 L* D 114 H D ABG HCO3 29 H 29 H 23 ABG O2 Saturation 99 H 90 L 98 ABG Base Excess 5 H 4 H -6 L VBG pH VBG pCO2 VBG pO2 VBG Base Excess 05/17/25 05/18/25 05/19/25 01:30 04:09 04:43 ABG pH 7.38 7.43 7.47 H ABG pCO2 46 44 43 ABG pO2 90 83 80 L ABG HCO3 27 H 29 H 31 H ABG O2 Saturation 98 97 97 ABG Base Excess 2 5 H 7 H VBG pH VBG pCO2 VBG pO2 VBG Base Excess 05/21/25 05/21/25 05/31/25 04:18 06:33 08:06 ABG pH 7.37 D 7.46 H ABG pCO2 50 H 38 D ABG pO2 40 L* D 121 H D ABG HCO3 29 H 27 H ABG O2 Saturation 66 L 100 H ABG Base Excess 3 3 VBG pH 7.55 VBG pCO2 31 L VBG pO2 144 H VBG Base Excess 5 H 06/05/25 06/05/25 06/06/25 13:37 23:46 05:20 ABG pH 7.47 H 7.45 ABG pCO2 35 38 ABG pO2 200 H 54 L* D ABG HCO3 25 26 ABG O2 Saturation 101 H 89 L ABG Base Excess 2 2 VBG pH 7.50 VBG pCO2 34 L VBG pO2 90 H VBG Base Excess 4 H 06/10/25 17:41 ABG pH ABG pCO2 ABG pO2 ABG HCO3 ABG O2 Saturation ABG Base Excess VBG pH 7.40 VBG pCO2 43 VBG pO2 43 VBG Base Excess 2 Quality Measures Quality Measures VTE prophylaxis Assessment & Plan Assessment Current Active Medications: Generic Name Dose Route Start Last Admin Trade Name Freq PRN Reason Stop Dose Admin Acetaminophen 325 mg 06/16/25 16:18 06/25/25 13:54 Acetaminophen Racquel 325 Mg/10 Ml Udc GT 07/09/25 16:12 325 mg Q4HR PRN Administration pain (1-3) or fever > 100.4 Amantadine HCl 100 mg 06/23/25 14:30 06/25/25 13:54 Amantadine Hcl 100 Mg Capsule PO 06/30/25 14:29 100 mg BID@0700,1400 KYA Administration Clonazepam 0.5 mg 06/19/25 21:00 06/25/25 08:12 Clonazepam 0.5 Mg Tablet GT 06/28/25 20:59 0.5 mg BID KYA Administration Ketorolac Tromethamine 30 mg 06/25/25 11:16 Ketorolac Inj 30 Mg/Ml Vial IVP 07/02/25 09:41 Q8HR PRN PAIN 4-10 Levetiracetam 800 mg 06/20/25 21:00 06/25/25 08:35 Levetiracetam Liqd 500 Mg/5 Ml Udc GT 07/20/25 20:59 800 mg BID KYA Administration Nystatin 0 gm 06/21/25 21:00 06/25/25 08:13 Nystatin Pwd 15 Gm Btl TOP 07/21/25 20:59 1 appln BID KYA Administration Pantoprazole Sodium 40 mg 06/22/25 11:15 06/25/25 08:12 Pantoprazole Inj 40 Mg Vial IVP 07/22/25 11:14 40 mg QDAY KYA Administration Quetiapine Fumarate 100 mg 06/21/25 21:00 06/24/25 20:17 Quetiapine Fumarate 100 Mg Tablet GT 07/21/25 20:59 100 mg HS KYA Administration Quetiapine Fumarate 50 mg 06/21/25 09:15 06/25/25 08:12 Quetiapine Fumarate 25 Mg Tablet GT 07/21/25 09:14 50 mg QAM KYA Administration Plan 24-year-old male with cerebral palsy, asthma, seizure disorder, chronic mastoiditis, recurrent pneumonia, and chronic PEG tube dependence presented with fever and seizure, was admitted for sepsis workup, and later transferred to the ICU for intubation due to concerns about airway protection. Patient has been downgraded from ICU to tele on 05/31/2025; however, re-upgraded to ICU on 06/05 due to tachycardia in 160s, tachypnea, persistent fever, and ventilator asynchrony. 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 See transfer nurse's note for details however patient denied at [facility], [facility], [facility] [place] other [place] as per them and transfer nurse there is no different workup/services that can be offered at tertiary care. [place] [facility] [place] thinks the underlying etiology of fever psychogenic fever -Control agitation as below - Monitor for fever - Decrease Toradol frequency, plan to wean off #Hospital acquired delirium #Agitation Differential diagnosis: ICU acquired delirium, opiate withdrawal, delirium Diagnostic workup: - Patient was weaned off of sedation and was downgraded to telemetry, however as sedatives were down titrated and telemetry patient had episode of severe agitation and ventilator asynchrony and was upgraded to ICU for further intervention. - EEG 05/11 unremarkable. Repeat EEG 05/20 showed electrographic seizure activity. Continuous EEG 05/22-05/23: no seizure activity or status epilepticus. Repeat EEG 06/05 negative for seizure activity. - MRI brain 05/23: showed chronic infections, no acute pathology. - Cisatracurium gtt discontinued - Versed gtt discontinued - Phenobarbital 129.6 discontinued - Oxycodone 10 mg discontinueded Treatment: -Amantadine 100mg po bid -Clonazepam 0.5 mg GT bid -Hold orders were added for respiratory rate <14, heart rate <70, or BP <100/60 for the above 3 meds #Tardive dyskinesia Diagnostic workup: - Nonpurposeful twisting movements of the patient's upper extremity with recurrent grimaces noted on 06/10 when the patient was taken off sedation - Patient's family notes that the patient has had a long history of nonpurposeful movement and has been previously prescribed deutetrabenazine for management by his neurologist - Per ICU, if deutetrabenazine remains ineffective, will increase to 12 mg twice daily after 1 week of starting the medication, may take up to 4 weeks to see maximal effect -Deutetrabenazine was discontinued in ICU, will continue to hold Treatment: - Amantadine as above -Seroquel 100mg GT HS -Seroquel 50mg GT QAM #Sepsis #Bilateral chronic mastoiditis #Sinusitis #Bilateral otitis media #Bilateral otitis externa #Brittney parapsilosis #Community Acquired Pneumonia #UTI, E.coli, ESBL #Pseudomonas aeruginosa, sputum positive #Mucus plugs, right upper lung and left lower lung ? -History of chronic mastoiditis. -Met SIRS criteria on admission: T 105F, HR 176, RR 26, PaCO2 26, WBC 16.3. -Head CT (05/08/2025): prominent sphenoid ethmoid maxillary antral sinusitis, bilateral chronic mastoiditis, bilateral otitis media. -CT Orbit Sella Inner (05/08/2025): severe bilateral chronic mastoiditis, bilateral otitis externa and otitis media, bilateral cholesteatomas in the attics. -CXR (05/09/2025): Bilateral Perihilar Pneumonia. CXR (05/13/2025): Extensive Bilateral Pneumonia, CXR(05/19/2025): Significant bilateral Pneumonia -CT Chest/abd/pelvis (05/16/2025): Extensive bilateral pneumonia, Cystitis pattern, Cholelithiasis -A repeat Cocci serology test was negative -Lumbar puncture(05/10/2025): clear, WBC 3, glucose 70, total protein 25. CSF testing negative. -Respiratory viral panel (05/10/2025): rhinovirus/enterovirus and human metapneumovirus detected. -UA 05/08 and 05/16 negative. -06/17 Chest x-ray negative. CTAP negative [Culture Hx] -1st Blood Cx (05/08): No growth for 5 days. 2nd Blood Cx (05/11): No growth for 5 days, 3rd Blood Cx (05/16): No growth for 5 days, 4th Blood Cx (06/01): No growth for 48hrs -1st Sputum Cx (05/09): Pseudomonas aeruginosa (only sensitive to Meropenem, Tobramycin). 2nd Sputum Cx (05/13): Mixed oral hamilton. 3rd Sputum Cx (05/19): Mixed oral hamilton, 4th Sputum Cx (05/20): Brittney albicans, 5th Sputum Cx (06/01): GNR -CSF Cx (05/10): No growth for 3 days -Left Ear Cx (05/12): Brittney parapsilosis -Right Ear Cx(05/12): E.coli, ESBL (only sensitive to Ertapenem, Meropenem, Zosyn) -Urine Cx (06/01): E.coli, ESBL (only sensitive to Ertapenem, Meropenem, Nitrofurantoin, Zosyn) -Sputum culture 06/05 shows sensitive to Zosyn and intermittent resistance to cefepime [Antibiotics/Antifungal Hx] IV Zosyn 3.375g x1 (at 05/08) IV Ceftriaxone 1g x1 (at 05/08) IV Acyclovir 640mg q8hr (05/08-05/11) since LP negative. IV Ceftriaxone 2g q12hr (05/08-05/11) IV Vancomycin qd (05/08-05/11) since MRSA screen is negative Ofloxacin Opt racquel 0.3% 5 drops Both ears bid (05/09-05/18, 05/21-05/31) IV Meropenem 1000mg q8hr (05/12-05/22, 05/24-05/25) IV Doxycycline (05/16-05/18) IV Micafungin 100mg qd (05/28-05/30, 06/01-06/03) Ciprofloxacin Op Racquel 0.3% ear drops (06/02-06/03) -CXR is showing pneumonia, but CXR often remain abnormal for days to weeks. The infiltrate or consolidation can persist even though the infection has cleared. The radiographic improvement can take up to 4-6 weeks.? Patient is on minimal ventilator setting, oxygen requirement is stable, and has completed antibiotics course. -UTI unlikely sources of infection given low number of colonies and long antibiotics treatment in ICU. -Per ENT, [place], patient does not have acute coalescent mastoiditis in either ear. Left and right middle ear is also not filled with effusion. -Chest x-ray 06/07 AM, showed a left lower lobe consolidation, ddx left lower lobe pneumonia versus mucous plug versus left pleural effusion versus mucous plug versus atelectasis lung ultrasound at bedside, effusion ruled out, no hepatization of the lung noted. Bedside bronchoscopy showed left lower lobe mucous plug, cleared with deep suction Plan: IV Zosyn 06/05-06/18 for 14-day course coverage of Pseudomonas IV Zosyn 3.375g x1 (at 05/08) IV Ceftriaxone 1g x1 (at 05/08) IV Acyclovir 640mg q8hr (05/08-05/11) IV Ceftriaxone 2g q12hr (05/08-05/11) IV Vancomycin qd (05/08-05/11) since MRSA screen is negative IV Meropenem 1000mg q8hr (05/12-05/22, 05/24-05/25) IV Doxycycline (05/16-05/18) IV Micafungin 100mg qd (05/28-05/30, 06/01-06/03) IV fluconazole 06/05-06/07 Follow-up: - Once weaned off sedation and patient has cough reflex intact and more awake/alert, will consider chest physiotherapy. #Phimosis s/p dorsal slit procedure 06/08/2025 #Paraphimosis (resolved) #Balanitis (resolved) Diagnostic workup: - Edema and tenderness of the glans penis, Swelling of the distal retracted foreskin, Constricting band of tissue proximal to the head of the penis at the coronal sulcus on presentation, s/p reduction of the paraphimosis by urologist Dr. Vargas on 05/09 and phimosis dorsal slit on 06/08 Treatment: Daily. - Monitor for worsening swelling, bleeding, or blockage of urine #Seizure disorder by history #Cerebral palsy by history Diagnostic workup: - Active seizure disorder ruled out, multiple EEGs negative for seizure activity Treatment: - Hold Depakote 250 mg GT every 8 hours and Continue Keppra 500 mg GT twice daily #Sinus tachycardia Differential diagnosis: Infection, hypersympathetic activity Diagnostic workup: - Did have positive sputum and urine culture for Pseudomonas and ESBL respectively - Patient's last fever was 06/12/2025 05:46 - Echocardiogram was obtained to rule out any vegetations TTE shows normal systolic function, EF 55 to 60%, diastolic dysfunction grade 1, no evidence of vegetation or endocarditis Treatment: -Propranolol discontinued - Continue antibiotics - Monitor for fever, use ibuprofen as needed for fever episode - Telemetry monitoring #Elevated alkaline phosphatase, improving #Low PTH #Abnormal nuclear medicine bone scan Differential diagnosis: increased osteoblastic activity in setting of vegetative state, bone infection (particularly of left mastoid), hypoparathyroidism, osteoarthritis Diagnostic workup: - PTH intact low at 3.6, calcium 9.9, vitamin D 25-OH 18.1 - Renal function intact, at baseline - Nuclear medicine bone scan shows minor asymmetric uptake left knee and mild increased uptake mid left tibia - Knee x-ray 06/06 and tibia-fibula x-ray 06/06 showed no findings diagnostic for osseous metastatic disease - MRI left leg 06/08 images severely degraded by continuous patient motion - No pain to palpation of bilateral lower extremities Plan: - discontinued sevelamer, consider resuming in a.m. - Patient to follow up on abnormal imaging outpatient #Tongue Laceration, traumatic #Gingivial Bleeding, Oral Trauma Diagnostic workup: -Known to have episodes of jaw spasms and teeth clenching with agitation. Had significant trauma to gums and tongue due to clenching of teeth 06/06 - No further bleeding appreciated in oral mucosa Treatment: - Patient required cisatracurium to relax jaw, pressure was applied locally, oral packing none, injections of lido?epinephrine x 3 to gums on 06/06 night Follow-up: - Monitor for bleeding #Bronchospasm #History of asthma -Magnesium for bronchodilator effect as needed. -Albuterol and Ipratropium as needed. #Failed extubation 05/12 #Acute hypoxic respiratory failure s/p tracheostomy #Ventilator dependent -Patient underwent tracheostomy on 05/26/2025 -Chest physiotherapy daily #Chronic PEG tube dependence -Nepro 1.8 Christ 1L RTH -Pro Stat Sugar Free 30 ml #Hyperphosphatemia -Sevelamer 1g GT 2 times daily, adjust if needed, being held #Normocytic Anemia #Leukocytosis-Resolving #Maculopapular rash to the buttocks-Resolving #Acute urinary retention-Resolved #Hypoalbuminemia-Resolved #Hyperkalemia-Resolved #Acute kidney injury-Resolved #Anion Gap Metabolic Acidosis-Resolved #Acute nonocclusive thrombus in the left brachial vein-Resolved Disposition: Tele Diet: Nepro 1.8 Christ 1L RTH and Pro Stat Sugar Free 30 ml-bolus feeds GI prophylaxis: IV Protonix DVT prophylaxis: SCDs, Code: FULL Case discussed with Attending Physician Dr. Cortez Moreno MD Internal Medicine PGY-2 Disclaimer: This note was dictated by speech recognition. Minor errors in vulcan crewmember may be present due to voice recognition software. Attending Provider Attestation/Addendum I have discussed and was present for the essential components of the history, physical examination, diagnosis, and treatment plan with the resident. I agree with the patient's care as documented by the resident and amended herein by me. Kade Dang DO. Although this document has been carefully reviewed, there may still be some phonetic and other typographical errors. These errors are purely grammatical due to imperfections in the software program and should not be construed in any way to compromise the substance of the patient's medical care during this visit. Patient seen and evaluated this AM. No acute events overnight, Tmax today is 101.4, we did down try trait to his Toradol, going to every 8 hours then we will continue to taper off tomorrow as I fear this will impact his kidney function. I believe the patient should go to LTAC, we did attempt to talk to Dr. Crews today for subacute but he feels that LTAC is better for this patient and will not take him to subacute at this time in which I agree. Will continue amantadine for now, will give Valium as needed as the patient is continued to be agitated. Continue to monitor closely until discharge to LTAC, will discuss with family this evening
[2025-06-25] MEDS: HYDROmorphone INJ 2 MG/ML VIAL 1 MG IVP ×3 (16:26→21:42)
[2025-06-25] MEDS: ACETYLCYSTEINE SOL 20% 4 ML NEBU 2 ML INH (16:59)
[2025-06-25] MEDS: ALBUTEROL RT 2.5 MG/0.5 ML NEBU 5 MG INH (16:59)
[2025-06-25] MEDS: DIAZEPAM INJ 5 MG/ML VIAL 2 ML IVP (18:42)
[2025-06-26] VITALS (11 sets, daily range): BP systolic 98–147; BP diastolic 57–118; PULSE 114–154; RESP 28–39; TEMP 36.7–38.2; O2SAT 98–100; BMI 24.5
[2025-06-26] MEDS: ACETAMINOPHEN SOL 325 MG/10 ML UDC GT ×2 (03:40→19:31)
[2025-06-26] MEDS: KETOROLAC INJ 30 MG/ML VIAL IVP ×3 (04:33→21:32)
[2025-06-26] MEDS: LORazepam 2 MG/ML VIAL 1 MG IM (05:59)
[2025-06-26] MEDS: LORazepam 2 MG/ML VIAL IM (07:04)
[2025-06-26] MEDS: NYSTATIN PWD 15 GM BTL TOP ×2 (08:07→20:11)
[2025-06-26] MEDS: levETIRAcetam LIQD 500 MG/5 ML UDC 800 MG GT ×2 (08:07→20:00)
--- NOTE | 2025-06-26 09:19 | PC.NURSE ---
Dr Baer aware unable to get IVs due to patient being agitated.
[2025-06-26 10:07] LABS: Basophils # (Auto) 0.1 Thou/mm3 (0.0-0.2); Basophils % (Auto) 1 % (0-2.5); Eosinophils # (Auto) 0.6 Thou/mm3 (0.0-0.5); Eosinophils % (Auto) 5 % (0-10); Hematocrit 30.7 % (41.0-53.0); Hemoglobin 9.6 g/dL (13.5-16.0); Immature Granulocytes Auto 0.05 Thou/mm3 (0.00-0.00); Lymphocytes # (Auto) 2.8 Thou/mm3 (1.0-4.8); Lymphocytes % (Auto) 23 % (10-50); Mean Corpuscular HGB Conc 31.3 g/dl (31.0-37.0); Mean Corpuscular Hemoglobin 26.3 pg (25.0-35.0); Mean Corpuscular Volume 84 fL (80-100); Monocytes # (Auto) 0.8 Thou/mm3 (0.0-0.8); Monocytes % (Auto) 7 % (0-12); Neutrophils # (Auto) 7.4 Thou/mm3 (1.8-7.7); Neutrophils % (Auto) 63 % (37-80); Nucleated Red Blood Cell # 0.00 Thou/mm3 (0.00-0.00); Nucleated Red Blood Cell % 0 /100 WBC (0); Platelet Count 451 Thou/mm3 (140-440); RDW Standard Deviation 51.0 fL (35.1-43.9); Red Blood Count 3.65 Miln/mm3 (4.50-5.90); White Blood Count 11.8 Thou/mm3 (3.8-10.6)
[2025-06-26 11:04] LABS: Anion Gap 12 (7-16); BUN/Creatinine Ratio 38 Ratio (12-20); Blood Urea Nitrogen 34 mg/dL (9-23); Calcium 10.7 mg/dL (8.3-10.6); Carbon Dioxide 25.6 mMol/L (20.0-31.0); Chloride 108 mMol/L (98-107); Creatinine (Component) 0.9 mg/dL (0.6-1.3); Estimated Creatinine Clearance 84.7 mL/min (>60); Glucose 96 mg/dL (74-106); Osmolality,Calculated 298 (275-295); Potassium 3.8 mMol/L (3.4-5.1); Sodium 146 mMol/L (136-145); eGFR > 60 See Note
--- NOTE | 2025-06-26 13:36 | PC.SS ---
Discharge rounds: Per Dr. Baer, he had a meeting with the patient's parents and reports they are agreeable to send the patient to one of the [place] facilities. Per documentation[facility] and are pending updated clinicals. This SW sent updated clinicals to [place] and [facility] in [place] through [employer]. SW met with the patient's parent at the bedside, and they requested that this SW call their son, , to provide the addresses to both [place] facilities. Per father, he will get back to us on which facility they prefer. SW provided both addresses to the patient's brother.
--- NOTE | 2025-06-26 14:44 | ESPR_ITS ---
Documentation for date of: 06/26/25 Subjective Subjective Interval history: No overnight events. Patient largely unchanged. Spoke to family regarding plan for placement to LTAC, patient family expressed understanding, in agreement the patient had improved. Discussed with family that subacute was refusing patient at this time due to requiring higher level of care. Family requested more information regarding excepting LTAC, was informed that we will need to make decision by tomorrow. Exam Vital Signs Temp Pulse Resp BP Pulse Ox O2 Del Method O2 Flow Rate 99.2 F 116 H 28 H 112/73 100 Room Air 10 06/26/25 12:00 06/26/25 12:00 06/26/25 12:00 06/26/25 12:00 06/26/25 12:00 06/26/25 12:00 06/26/25 06:56 FiO2 50 06/26/25 08:00 Narrative Exam Gen: Nonpurposeful movements, trached on blow by HEENT: NCAT, EOMI, Pupils reactive KARLO, not icteric. No rhinorrhea. Moist mucous membranes with no visible blood. Increased secretions noted. Chronic inflammatory changes to left ear. Neck: Supple, full range of motion, no observable masses, No meningeal sign. Lungs: Coarse breath sounds bilateral on blow-by CV: Sinus tachycardia, no murmurs appreciated. Abdomen: Soft, nondistended, No rebound tenderness, PEG tube in place, peristalsis present. Status post dorsal slit, no inflammation noted around penis MSK: No lower extremity edema, no redness, peripheral pulses presents, Contracted hands, decreased tone Skin: No, petechiae, lesions, erythematous. Some redness noted lower back. Neuro: Alert and moving extremitie, pupils reactive, nonpurposeful movements with facial grimacing. Objective Labs 06/28/25 08:12 06/28/25 08:12 Labs: Laboratory Results - last 24 hr 06/26/25 06/26/25 09:30 10:26 WBC 11.8 H RBC 3.65 L Hgb 9.6 L Hct 30.7 L MCV 84 MCH 26.3 MCHC 31.3 RDW Std Deviation 51.0 H Plt Count 451 H D Neut % (Auto) 63 Lymph % (Auto) 23 [place] % (Auto) 7 Eos % (Auto) 5 Baso % (Auto) 1 Neut # (Auto) 7.4 Lymph # (Auto) 2.8 [place] # (Auto) 0.8 Eos # (Auto) 0.6 H Baso # (Auto) 0.1 Immature Gran # (Auto) 0.05 H Absolute Nucleated RBC 0.00 Immature Gran % 0 Nucleated RBC % 0 Sodium 146 H Potassium 3.8 Chloride 108 H Carbon Dioxide 25.6 Anion Gap 12 BUN 34 H Creatinine 0.9 Estim Creat Clear Calc 84.7 eGFR > 60 BUN/Creatinine Ratio 38 H Glucose 96 Calculated Osmolality 298 H Calcium 10.7 H ABG Interpretation ABG results: 05/09/25 05/09/25 05/09/25 11:56 13:40 18:50 ABG pH 7.40 7.27 L D 7.28 L ABG pCO2 40 43 55 H D ABG pO2 131 H 53 L* D 70 L ABG HCO3 25 20 26 ABG O2 Saturation 99 H 81 L 92 ABG Base Excess 0 -7 L -2 VBG pH VBG pCO2 VBG pO2 VBG Base Excess 05/10/25 05/11/25 05/12/25 00:14 05:06 01:18 ABG pH 7.35 7.33 L 7.39 ABG pCO2 42 D 54 H D 48 ABG pO2 103 D 93 94 ABG HCO3 23 28 H 29 H ABG O2 Saturation 99 H 98 98 ABG Base Excess -3 2 3 VBG pH VBG pCO2 VBG pO2 VBG Base Excess 05/12/25 05/12/25 05/13/25 03:58 11:50 05:10 ABG pH 7.46 H 7.39 7.19 L* D ABG pCO2 41 48 60 H D ABG pO2 105 58 L* D 114 H D ABG HCO3 29 H 29 H 23 ABG O2 Saturation 99 H 90 L 98 ABG Base Excess 5 H 4 H -6 L VBG pH VBG pCO2 VBG pO2 VBG Base Excess 05/17/25 05/18/25 05/19/25 01:30 04:09 04:43 ABG pH 7.38 7.43 7.47 H ABG pCO2 46 44 43 ABG pO2 90 83 80 L ABG HCO3 27 H 29 H 31 H ABG O2 Saturation 98 97 97 ABG Base Excess 2 5 H 7 H VBG pH VBG pCO2 VBG pO2 VBG Base Excess 10/2505/21/25 05/31/25 04:18 06:33 08:06 ABG pH 7.37 D 7.46 H ABG pCO2 50 H 38 D ABG pO2 40 L* D 121 H D ABG HCO3 29 H 27 H ABG O2 Saturation 66 L 100 H ABG Base Excess 3 3 VBG pH 7.55 VBG pCO2 31 L VBG pO2 144 H VBG Base Excess 5 H 06/05/25 06/05/25 06/06/25 13:37 23:46 05:20 ABG pH 7.47 H 7.45 ABG pCO2 35 38 ABG pO2 200 H 54 L* D ABG HCO3 25 26 ABG O2 Saturation 101 H 89 L ABG Base Excess 2 2 VBG pH 7.50 VBG pCO2 34 L VBG pO2 90 H VBG Base Excess 4 H 06/10/25 17:41 ABG pH ABG pCO2 ABG pO2 ABG HCO3 ABG O2 Saturation ABG Base Excess VBG pH 7.40 VBG pCO2 43 VBG pO2 43 VBG Base Excess 2 Quality Measures Quality Measures VTE prophylaxis Assessment & Plan Assessment Current Active Medications: Generic Name Dose Route Start Last Admin Trade Name Freq PRN Reason Stop Dose Admin Acetaminophen 325 mg 06/16/25 16:18 06/26/25 03:40 Acetaminophen Racquel 325 Mg/10 Ml Udc GT 07/09/25 16:12 325 mg Q4HR PRN Administration pain (1-3) or fever > 100.4 Amantadine HCl 100 mg 06/23/25 14:30 06/26/25 13:48 Amantadine Hcl 100 Mg Capsule PO 06/30/25 14:29 100 mg BID@0700,1400 KYA Administration Clonazepam 0.5 mg 06/19/25 21:00 06/26/25 08:07 Clonazepam 0.5 Mg Tablet GT 06/28/25 20:59 0.5 mg BID KYA Administration Ketorolac Tromethamine 30 mg 06/26/25 08:03 06/26/25 09:34 Ketorolac Inj 30 Mg/Ml Vial IVP 06/30/25 11:15 30 mg Q12HR PRN Administration PAIN 4-10 Levetiracetam 800 mg 06/20/25 21:00 06/26/25 08:07 Levetiracetam Liqd 500 Mg/5 Ml Udc GT 07/20/25 20:59 800 mg BID KYA Administration Nystatin 0 gm 06/21/25 21:00 06/26/25 08:07 Nystatin Pwd 15 Gm Btl TOP 07/21/25 20:59 1 appln BID KYA Administration Pantoprazole Sodium 40 mg 06/22/25 11:15 06/26/25 08:08 Pantoprazole Inj 40 Mg Vial IVP 07/22/25 11:14 Not Given QDAY KYA Quetiapine Fumarate 100 mg 06/21/25 21:00 06/25/25 20:37 Quetiapine Fumarate 100 Mg Tablet GT 07/21/25 20:59 100 mg HS KYA Administration Quetiapine Fumarate 50 mg 06/21/25 09:15 06/26/25 08:07 Quetiapine Fumarate 25 Mg Tablet GT 07/21/25 09:14 50 mg QAM KYA Administration Plan 24-year-old male with cerebral palsy, asthma, seizure disorder, chronic mastoiditis, recurrent pneumonia, and chronic PEG tube dependence presented with fever and seizure, was admitted for sepsis workup, and later transferred to the ICU for intubation due to concerns about airway protection. Patient has been downgraded from ICU to tele on 05/31/2025; however, re-upgraded to ICU on 06/05 due to tachycardia in 160s, tachypnea, persistent fever, and ventilator asynchrony. 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 See transfer nurse's note for details however patient denied at [facility], [facility], [facility] other tertiary facilities as per them and transfer nurse there is no different workup/services that can be offered at tertiary care. Neurologist from [facility] [place]. Martínez thinks the underlying etiology of fever psychogenic fever -Control agitation as below - Monitor for fever - Decrease Toradol frequency, plan to wean off #Hospital acquired delirium #Agitation Differential diagnosis: ICU acquired delirium, opiate withdrawal, delirium Diagnostic workup: - Patient was weaned off of sedation and was downgraded to telemetry, however as sedatives were down titrated and telemetry patient had episode of severe agitation and ventilator asynchrony and was upgraded to ICU for further intervention. - EEG 05/11 unremarkable. Repeat EEG 05/20 showed electrographic seizure activity. Continuous EEG 05/22-05/23: no seizure activity or status epilepticus. Repeat EEG 06/05 negative for seizure activity. - MRI brain 05/23: showed chronic infections, no acute pathology. - Cisatracurium gtt discontinued - Versed gtt discontinued - Phenobarbital 129.6 discontinued - Oxycodone 10 mg discontinueded Treatment: -Amantadine 100mg po bid -Clonazepam 0.5 mg GT bid -Hold orders were added for respiratory rate <14, heart rate <70, or BP <100/60 for the above 3 meds #Tardive dyskinesia Diagnostic workup: - Nonpurposeful twisting movements of the patient's upper extremity with recurrent grimaces noted on 06/10 when the patient was taken off sedation - Patient's family notes that the patient has had a long history of nonpurposeful movement and has been previously prescribed deutetrabenazine for management by his neurologist - Per ICU, if deutetrabenazine remains ineffective, will increase to 12 mg twice daily after 1 week of starting the medication, may take up to 4 weeks to see maximal effect -Deutetrabenazine was discontinued in ICU, will continue to hold Treatment: - Amantadine as above -Seroquel 100mg GT HS -Seroquel 50mg GT QAM #Sepsis #Bilateral chronic mastoiditis #Sinusitis #Bilateral otitis media #Bilateral otitis externa #Brittney parapsilosis #Community Acquired Pneumonia #UTI, E.coli, ESBL #Pseudomonas aeruginosa, sputum positive #Mucus plugs, right upper lung and left lower lung ? -History of chronic mastoiditis. -Met SIRS criteria on admission: T 105F, HR 176, RR 26, PaCO2 26, WBC 16.3. -Head CT (05/08/2025): prominent sphenoid ethmoid maxillary antral sinusitis, bilateral chronic mastoiditis, bilateral otitis media. -CT Orbit Sella Inner (05/08/2025): severe bilateral chronic mastoiditis, bilateral otitis externa and otitis media, bilateral cholesteatomas in the attics. -CXR (05/09/2025): Bilateral Perihilar Pneumonia. CXR (05/13/2025): Extensive Bilateral Pneumonia, CXR(05/19/2025): Significant bilateral Pneumonia -CT Chest/abd/pelvis (05/16/2025): Extensive bilateral pneumonia, Cystitis pattern, Cholelithiasis -A repeat Cocci serology test was negative -Lumbar puncture(05/10/2025): clear, WBC 3, glucose 70, total protein 25. CSF testing negative. -Respiratory viral panel (05/10/2025): rhinovirus/enterovirus and human metapneumovirus detected. -UA 05/08 and 05/16 negative. -06/17 Chest x-ray negative. CTAP negative [Culture Hx] -1st Blood Cx (05/08): No growth for 5 days. 2nd Blood Cx (05/11): No growth for 5 days, 3rd Blood Cx (05/16): No growth for 5 days, 4th Blood Cx (06/01): No growth for 48hrs -1st Sputum Cx (05/09): Pseudomonas aeruginosa (only sensitive to Meropenem, Tobramycin). 2nd Sputum Cx (05/13): Mixed oral hamilton. 3rd Sputum Cx (05/19): Mixed oral hamilton, 4th Sputum Cx (05/20): Brittney albicans, 5th Sputum Cx (06/01): GNR -CSF Cx (05/10): No growth for 3 days -Left Ear Cx (05/12): Brittney parapsilosis -Right Ear Cx(05/12): E.coli, ESBL (only sensitive to Ertapenem, Meropenem, Zosyn) -Urine Cx (06/01): E.coli, ESBL (only sensitive to Ertapenem, Meropenem, Nitrofurantoin, Zosyn) -Sputum culture 06/05 shows sensitive to Zosyn and intermittent resistance to cefepime [Antibiotics/Antifungal Hx] IV Zosyn 3.375g x1 (at 05/08) IV Ceftriaxone 1g x1 (at 05/08) IV Acyclovir 640mg q8hr (05/08-05/11) since LP negative. IV Ceftriaxone 2g q12hr (05/08-05/11) IV Vancomycin qd (05/08-05/11) since MRSA screen is negative Ofloxacin Opt racquel 0.3% 5 drops Both ears bid (05/09-05/18, 05/21-05/31) IV Meropenem 1000mg q8hr (05/12-05/22, 05/24-05/25) IV Doxycycline (05/16-05/18) IV Micafungin 100mg qd (05/28-05/30, 06/01-06/03) Ciprofloxacin Op Racquel 0.3% ear drops (06/02-06/03) -CXR is showing pneumonia, but CXR often remain abnormal for days to weeks. The infiltrate or consolidation can persist even though the infection has cleared. The radiographic improvement can take up to 4-6 weeks.? Patient is on minimal ventilator setting, oxygen requirement is stable, and has completed antibiotics course. -UTI unlikely sources of infection given low number of colonies and long antibiotics treatment in ICU. -Per ENT, Dr. Ojeda, patient does not have acute coalescent mastoiditis in either ear. Left and right middle ear is also not filled with effusion. -Chest x-ray 06/07 AM, showed a left lower lobe consolidation, ddx left lower lobe pneumonia versus mucous plug versus left pleural effusion versus mucous plug versus atelectasis lung ultrasound at bedside, effusion ruled out, no hepatization of the lung noted. Bedside bronchoscopy showed left lower lobe mucous plug, cleared with deep suction Plan: IV Zosyn 06/05-06/18 for 14-day course coverage of Pseudomonas IV Zosyn 3.375g x1 (at 05/08) IV Ceftriaxone 1g x1 (at 05/08) IV Acyclovir 640mg q8hr (05/08-05/11) IV Ceftriaxone 2g q12hr (05/08-05/11) IV Vancomycin qd (05/08-05/11) since MRSA screen is negative IV Meropenem 1000mg q8hr (05/12-05/22, 05/24-05/25) IV Doxycycline (05/16-05/18) IV Micafungin 100mg qd (05/28-05/30, 06/01-06/03) IV fluconazole 06/05-06/07 Follow-up: - Once weaned off sedation and patient has cough reflex intact and more awake/alert, will consider chest physiotherapy. #Phimosis s/p dorsal slit procedure 06/08/2025 #Paraphimosis (resolved) #Balanitis (resolved) Diagnostic workup: - Edema and tenderness of the glans penis, Swelling of the distal retracted foreskin, Constricting band of tissue proximal to the head of the penis at the coronal sulcus on presentation, s/p reduction of the paraphimosis by urologist Dr. Vargas on 05/09 and phimosis dorsal slit on 06/08 Treatment: Daily. - Monitor for worsening swelling, bleeding, or blockage of urine #Seizure disorder by history #Cerebral palsy by history Diagnostic workup: - Active seizure disorder ruled out, multiple EEGs negative for seizure activity Treatment: - Hold Depakote 250 mg GT every 8 hours and Continue Keppra 500 mg GT twice daily #Sinus tachycardia Differential diagnosis: Infection, hypersympathetic activity Diagnostic workup: - Did have positive sputum and urine culture for Pseudomonas and ESBL respectively - Patient's last fever was 06/12/2025 05:46 - Echocardiogram was obtained to rule out any vegetations TTE shows normal systolic function, EF 55 to 60%, diastolic dysfunction grade 1, no evidence of vegetation or endocarditis Treatment: -Propranolol discontinued - Continue antibiotics - Monitor for fever, use ibuprofen as needed for fever episode - Telemetry monitoring #Elevated alkaline phosphatase, improving #Low PTH #Abnormal nuclear medicine bone scan Differential diagnosis: increased osteoblastic activity in setting of vegetative state, bone infection (particularly of left mastoid), hypoparathyroidism, osteoarthritis Diagnostic workup: - PTH intact low at 3.6, calcium 9.9, vitamin D 25-OH 18.1 - Renal function intact, at baseline - Nuclear medicine bone scan shows minor asymmetric uptake left knee and mild increased uptake mid left tibia - Knee x-ray 06/06 and tibia-fibula x-ray 06/06 showed no findings diagnostic for osseous metastatic disease - MRI left leg 06/08 images severely degraded by continuous patient motion - No pain to palpation of bilateral lower extremities Plan: - discontinued sevelamer, consider resuming in a.m. - Patient to follow up on abnormal imaging outpatient #Tongue Laceration, traumatic #Gingivial Bleeding, Oral Trauma Diagnostic workup: -Known to have episodes of jaw spasms and teeth clenching with agitation. Had significant trauma to gums and tongue due to clenching of teeth 06/06 - No further bleeding appreciated in oral mucosa Treatment: - Patient required cisatracurium to relax jaw, pressure was applied locally, oral packing none, injections of lido?epinephrine x 3 to gums on 06/06 night Follow-up: - Monitor for bleeding #Bronchospasm #History of asthma -Magnesium for bronchodilator effect as needed. -Albuterol and Ipratropium as needed. #Failed extubation 10/16 #Acute hypoxic respiratory failure s/p tracheostomy #Ventilator dependent -Patient underwent tracheostomy on 05/26/2025 -Chest physiotherapy daily #Chronic PEG tube dependence -Nepro 1.8 Christ 1L RTH -Pro Stat Sugar Free 30 ml #Hyperphosphatemia -Sevelamer 1g GT 2 times daily, adjust if needed, being held #Normocytic Anemia #Leukocytosis-Resolving #Maculopapular rash to the buttocks-Resolving #Acute urinary retention-Resolved #Hypoalbuminemia-Resolved #Hyperkalemia-Resolved #Acute kidney injury-Resolved #Anion Gap Metabolic Acidosis-Resolved #Acute nonocclusive thrombus in the left brachial vein-Resolved Disposition: Tele Diet: Nepro 1.8 Christ 1L RTH and Pro Stat Sugar Free 30 ml-bolus feeds GI prophylaxis: IV Protonix DVT prophylaxis: SCDs, Code: FULL Case discussed with Attending Physician Dr. Cortez Baer MD Internal Medicine PGY-2 Disclaimer: This note was dictated by speech recognition. Minor errors in senior gis analyst may be present due to voice recognition software. Attending Provider Attestation/Addendum I have discussed and was present for the essential components of the history, physical examination, diagnosis, and treatment plan with the resident. I agree with the patient's care as documented by the resident and amended herein by me. Kade Dang DO. Although this document has been carefully reviewed, there may still be some phonetic and other typographical errors. These errors are purely grammatical due to imperfections in the software program and should not be construed in any way to compromise the substance of the patient's medical care during this visit.
[2025-06-26] MEDS: HYDROmorphone INJ 2 MG/ML VIAL 1 MG IVP (15:11)
[2025-06-27] VITALS (42 sets, daily range): BP systolic 96–150; BP diastolic 50–110; PULSE 115–188; RESP 20–44; TEMP 36.9–37.7; O2SAT 76–100; BMI 24.5
[2025-06-27] MEDS: HYDROmorphone INJ 2 MG/ML VIAL 1 MG IVP ×5 (01:06→22:45)
--- NOTE | 2025-06-27 07:30 | ESPR_ITS ---
<Statement entered by Ru Larson MD - 06/27/25 16:09> I saw and examined patient personally and supervised PGY 1 resident, Dr. Dalal with formulating a management plan. I agree with the documentation with the exceptions as listed below. 24-year-old male with cerebral palsy, asthma, seizure disorder, chronic mastoiditis, recurrent pneumonia, and chronic PEG tube dependence presented with fever and seizure, was admitted for sepsis workup, and later transferred to the ICU for intubation due to concerns about airway protection. Patient has been downgraded from ICU to tele on 05/31/2025; however, re-upgraded to ICU on 06/05 due to tachycardia in 160s, tachypnea, persistent fever, and ventilator asynchrony. Problem list: 1. Psychogenic fevers 2. Hospital-acquired delirium 3. Cerebral palsy 4. Epilepsy 5. Tardive dyskinesia 6. Possible opioid withdrawal 7. Sepsis secondary to bilateral otitis media and sinusitis?resolved 8. Sinus tachycardia For patient's psychogenic fevers and hospital-acquired delirium he is currently on amantadine 100 mg p.o. twice daily along with clonazepam 0.5 mg GT twice daily. Today a rapid response was called around 9:30 AM for patient being severely agitated, visibly diaphoretic and tachycardic in the 180s?190s. See event note for further details. Patient was scheduled on gabapentin 300 mg GT 3 times daily, we also increased his clonazepam to 0.5 mg GT 3 times daily and his Seroquel dose was increased to 50 mg p.o. a.m., 50 mg p.o. noon and 100 mg p.o. at bedtime. Patient was accepted to LTAC in [place], however his family are still undecided. Also patient is not clinically stable at this point in time for transfer. We will see how he responds to his medication changes tomorrow. Possible transfer within next 24 to 48 hours to LTAC. Plan of care discussed with Attending Dr. Conrado Larson MD PGY 2 Disclaimer: This note was dictated by speech recognition. Minor errors in metal fabricator helper may be present due to voice recognition software. Documentation for date of: 06/27/25 Subjective Subjective Interval history: Patient seen and examied at bedside; since this AM, has been very agitated/tachycardic (to 180s), was given dilaudid, tylenol, and lorazepam. Had high temperature last night. At 9:49 AM, rapid response was called for tachycardia; see event note for further details. CXR ordered showed suspicion for bilateral pneumonia. Neurology reconsulted for medications to improve agitation, as he has been accepted at LTAC in [place] and we are looking to move him towards discharge there. Exam Vital Signs Temp Pulse Resp BP Pulse Ox O2 Del Method O2 Flow Rate 99.8 F 143 H 20 150/91 H 95 Blow-by 8 06/27/25 04:15 06/27/25 05:46 06/27/25 05:46 06/27/25 04:15 06/27/25 05:46 06/27/25 04:15 06/27/25 05:46 FiO2 50 06/27/25 05:46 Narrative Exam General: A/O x0, very agitated, tachycardic, on ventilator Eyes: PERRL, EOMI. Anicteric, vision grossly intact. Ears: No ear pain, no ear discharge, Hearing grossly intact. Nose: No nasal discharge. Mouth/Throat: Moist mucous membranes, no redness, no lesions. Neck: Neck supple, non-tender, no cervical lymphadenopathy. Lungs: Coarse breath sounds bilaterally on blow-by, No accessory muscle use. Cardio: Normal S1/S2, very tachycardic, no murmurs, no JVD or carotid bruits. Abdomen: Soft, non-tender, no palpable masses, peristalsis present, no guarding or rebound, PEG tube in place Extremities: Symmetrical, no significant deformities, no peripheral edema , non-tender, peripheral pulses present. Skin: No rashes, no lesions, warm to touch. Neuro: No focal neurological deficits. Psych: Agitated, nonpurposeful movements with grimacing Objective Labs 06/27/25 07:58 06/27/25 07:58 Labs: Laboratory Results - last 24 hr 06/26/25 06/26/25 09:30 10:26 WBC 11.8 H RBC 3.65 L Hgb 9.6 L Hct 30.7 L MCV 84 MCH 26.3 MCHC 31.3 RDW Std Deviation 51.0 H Plt Count 451 H D Neut % (Auto) 63 Lymph % (Auto) 23 [place] % (Auto) 7 Eos % (Auto) 5 Baso % (Auto) 1 Neut # (Auto) 7.4 Lymph # (Auto) 2.8 [place] # (Auto) 0.8 Eos # (Auto) 0.6 H Baso # (Auto) 0.1 Immature Gran # (Auto) 0.05 H Absolute Nucleated RBC 0.00 Immature Gran % 0 Nucleated RBC % 0 Sodium 146 H Potassium 3.8 Chloride 108 H Carbon Dioxide 25.6 Anion Gap 12 BUN 34 H Creatinine 0.9 Estim Creat Clear Calc 84.7 eGFR > 60 BUN/Creatinine Ratio 38 H Glucose 96 Calculated Osmolality 298 H Calcium 10.7 H ABG Interpretation ABG results: 05/09/25 05/09/25 05/09/25 11:56 13:40 18:50 ABG pH 7.40 7.27 L D 7.28 L ABG pCO2 40 43 55 H D ABG pO2 131 H 53 L* D 70 L ABG HCO3 25 20 26 ABG O2 Saturation 99 H 81 L 92 ABG Base Excess 0 -7 L -2 VBG pH VBG pCO2 VBG pO2 VBG Base Excess 05/10/25 05/11/25 05/12/25 00:14 05:06 01:18 ABG pH 7.35 7.33 L 7.39 ABG pCO2 42 D 54 H D 48 ABG pO2 103 D 93 94 ABG HCO3 23 28 H 29 H ABG O2 Saturation 99 H 98 98 ABG Base Excess -3 2 3 VBG pH VBG pCO2 VBG pO2 VBG Base Excess 05/12/25 05/12/25 05/13/25 03:58 11:50 05:10 ABG pH 7.46 H 7.39 7.19 L* D ABG pCO2 41 48 60 H D ABG pO2 105 58 L* D 114 H D ABG HCO3 29 H 29 H 23 ABG O2 Saturation 99 H 90 L 98 ABG Base Excess 5 H 4 H -6 L VBG pH VBG pCO2 VBG pO2 VBG Base Excess 05/17/25 05/18/25 05/19/25 01:30 04:09 04:43 ABG pH 7.38 7.43 7.47 H ABG pCO2 46 44 43 ABG pO2 90 83 80 L ABG HCO3 27 H 29 H 31 H ABG O2 Saturation 98 97 97 ABG Base Excess 2 5 H 7 H VBG pH VBG pCO2 VBG pO2 VBG Base Excess 05/21/25 05/21/25 05/31/25 04:18 06:33 08:06 ABG pH 7.37 D 7.46 H ABG pCO2 50 H 38 D ABG pO2 40 L* D 121 H D ABG HCO3 29 H 27 H ABG O2 Saturation 66 L 100 H ABG Base Excess 3 3 VBG pH 7.55 VBG pCO2 31 L VBG pO2 144 H VBG Base Excess 5 H 06/05/25 06/05/25 06/06/25 13:37 23:46 05:20 ABG pH 7.47 H 7.45 ABG pCO2 35 38 ABG pO2 200 H 54 L* D ABG HCO3 25 26 ABG O2 Saturation 101 H 89 L ABG Base Excess 2 2 VBG pH 7.50 VBG pCO2 34 L VBG pO2 90 H VBG Base Excess 4 H 06/10/25 17:41 ABG pH ABG pCO2 ABG pO2 ABG HCO3 ABG O2 Saturation ABG Base Excess VBG pH 7.40 VBG pCO2 43 VBG pO2 43 VBG Base Excess 2 Quality Measures Quality Measures VTE prophylaxis Assessment & Plan Assessment Current Active Medications: Generic Name Dose Route Start Last Admin Trade Name Freq PRN Reason Stop Dose Admin Acetaminophen 325 mg 06/16/25 16:18 06/26/25 19:31 Acetaminophen Racquel 325 Mg/10 Ml Udc GT 07/09/25 16:12 325 mg Q4HR PRN Administration pain (1-3) or fever > 100.4 Amantadine HCl 100 mg 06/23/25 14:30 06/27/25 07:09 Amantadine Hcl 100 Mg Capsule PO 06/30/25 14:29 100 mg BID@0700,1400 KYA Administration Clonazepam 0.5 mg 06/19/25 21:00 06/26/25 20:00 Clonazepam 0.5 Mg Tablet GT 06/28/25 20:59 0.5 mg BID KYA Administration Acetaminophen 1,000 mg in 100 mls @ 250 mls/hr 06/27/25 07:24 Ofirmev Inj IV 06/27/25 07:47 X1 ONE Ketorolac Tromethamine 30 mg 06/26/25 08:03 06/26/25 21:32 Ketorolac Inj 30 Mg/Ml Vial IVP 06/30/25 11:15 30 mg Q12HR PRN Administration PAIN 4-10 Levetiracetam 800 mg 06/20/25 21:00 06/26/25 20:00 Levetiracetam Liqd 500 Mg/5 Ml Udc GT 07/20/25 20:59 800 mg BID KYA Administration Nystatin 0 gm 06/21/25 21:00 06/26/25 20:11 Nystatin Pwd 15 Gm Btl TOP 07/21/25 20:59 1 appln BID KYA Administration Pantoprazole Sodium 40 mg 06/22/25 11:15 06/26/25 08:08 Pantoprazole Inj 40 Mg Vial IVP 07/22/25 11:14 Not Given QDAY KYA Quetiapine Fumarate 100 mg 06/21/25 21:00 06/26/25 20:00 Quetiapine Fumarate 100 Mg Tablet GT 07/21/25 20:59 100 mg HS KYA Administration Quetiapine Fumarate 50 mg 06/21/25 09:15 06/26/25 08:07 Quetiapine Fumarate 25 Mg Tablet GT 07/21/25 09:14 50 mg QAM KYA Administration Plan 25-year-old male with cerebral palsy, asthma, seizure disorder, chronic mastoiditis, recurrent pneumonia, and chronic PEG tube dependence presented with fever and seizure, was admitted for sepsis workup, and later transferred to the ICU for intubation due to concerns about airway protection. Patient downgraded from ICU to tele on 05/31/2025; however, re-upgraded to ICU on 06/05 due to tachycardia in 160s, tachypnea, persistent fever, and ventilator asynchrony. #Hospital acquired delirium #Agitation Differential diagnosis: ICU acquired delirium, opiate withdrawal, delirium Diagnostic workup: - Patient was weaned off of sedation and was downgraded to telemetry, however as sedatives were down titrated and telemetry patient had episode of severe agitation and ventilator asynchrony and was upgraded to ICU for further intervention. - EEG 05/11 unremarkable. Repeat EEG 05/20 showed electrographic seizure activity. Continuous EEG 05/22-05/23: no seizure activity or status epilepticus. Repeat EEG 06/05 negative for seizure activity. - MRI brain 05/23: showed chronic infections, no acute pathology. - Cisatracurium gtt discontinued - Versed gtt discontinued - Phenobarbital 129.6 discontinued - Oxycodone 10 mg discontinueded Plan: -Amantadine 100mg po bid -Clonazepam 0.5 mg GT TID -Hold orders were added for respiratory rate <14, heart rate <70, or BP <100/60 for the above 3 meds #Psychogenic fever #? Opioid withdrawal Patient admitted for fever of unknown origin, case discussed with multiple specialities in house and transfer was attempted. See transfer nurse's note for details however patient denied at [facility], [facility], [facility] and other tertiary facilities as per them and transfer nurse there is no different workup/services that can be offered at tertiary care. Neurologist from [facility] Dr. Martínez thinks the underlying etiology of fever psychogenic fever Patient previously received hydromorphone daily Plan: -Control agitation as above - Monitor for fever - Decrease Toradol frequency, plan to wean off - Hold hydromorphone #Tardive dyskinesia Diagnostic workup: - Nonpurposeful twisting movements of the patient's upper extremity with recurrent grimaces noted on 06/10 when the patient was taken off sedation - Patient's family notes that the patient has had a long history of nonpurposeful movement and has been previously prescribed deutetrabenazine for management by his neurologist - Per ICU, if deutetrabenazine remains ineffective, will increase to 12 mg twice daily after 1 week of starting the medication, may take up to 4 weeks to see maximal effect -Deutetrabenazine was discontinued in ICU, will continue to hold Plan: -Amantadine as above -Seroquel 100mg GT HS -Seroquel 50mg GT noon -Seroquel 50mg GT QAM #Sepsis #Bilateral chronic mastoiditis #Sinusitis #Bilateral otitis media #Bilateral otitis externa #Brittney parapsilosis #Community Acquired Pneumonia #UTI, E.coli, ESBL #Pseudomonas aeruginosa, sputum positive #Mucus plugs, right upper lung and left lower lung ? -History of chronic mastoiditis. -Met SIRS criteria on admission: T 105F, HR 176, RR 26, PaCO2 26, WBC 16.3. -Head CT (05/08/2025): prominent sphenoid ethmoid maxillary antral sinusitis, bilateral chronic mastoiditis, bilateral otitis media. -CT Orbit Sella Inner (05/08/2025): severe bilateral chronic mastoiditis, bilateral otitis externa and otitis media, bilateral cholesteatomas in the attics. -CXR (05/09/2025): Bilateral Perihilar Pneumonia. CXR (05/13/2025): Extensive Bilateral Pneumonia, CXR(05/19/2025): Significant bilateral Pneumonia -CT Chest/abd/pelvis (05/16/2025): Extensive bilateral pneumonia, Cystitis pattern, Cholelithiasis -A repeat Cocci serology test was negative -Lumbar puncture(05/10/2025): clear, WBC 3, glucose 70, total protein 25. CSF testing negative. -Respiratory viral panel (05/10/2025): rhinovirus/enterovirus and human metapneumovirus detected. -UA 05/08 and 05/16 negative. -06/17 Chest x-ray negative. CTAP negative [Culture Hx] -1st Blood Cx (05/08): No growth for 5 days. 2nd Blood Cx (05/11): No growth for 5 days, 3rd Blood Cx (05/16): No growth for 5 days, 4th Blood Cx (06/01): No growth for 48hrs -1st Sputum Cx (05/09): Pseudomonas aeruginosa (only sensitive to Meropenem, Tobramycin). 2nd Sputum Cx (05/13): Mixed oral hamilton. 3rd Sputum Cx (05/19): Mixed oral hamilton, 4th Sputum Cx (05/20): Brittney albicans, 5th Sputum Cx (06/01): GNR -CSF Cx (05/10): No growth for 3 days -Left Ear Cx (05/12): Brittney parapsilosis -Right Ear Cx(05/12): E.coli, ESBL (only sensitive to Ertapenem, Meropenem, Zosyn) -Urine Cx (06/01): E.coli, ESBL (only sensitive to Ertapenem, Meropenem, Nitrofurantoin, Zosyn) -Sputum culture 06/05 shows sensitive to Zosyn and intermittent resistance to cefepime [Antibiotics/Antifungal Hx] IV Zosyn 3.375g x1 (at 05/08) IV Ceftriaxone 1g x1 (at 05/08) IV Acyclovir 640mg q8hr (05/08-05/11) since LP negative. IV Ceftriaxone 2g q12hr (05/08-05/11) IV Vancomycin qd (05/08-05/11) since MRSA screen is negative Ofloxacin Opt racquel 0.3% 5 drops Both ears bid (05/09-05/18, 05/21-05/31) IV Meropenem 1000mg q8hr (05/12-05/22, 05/24-05/25) IV Doxycycline (05/16-05/18) IV Micafungin 100mg qd (05/28-05/30, 06/01-06/03) Ciprofloxacin Op Racquel 0.3% ear drops (06/02-06/03) -CXR is showing pneumonia, but CXR often remain abnormal for days to weeks. The infiltrate or consolidation can persist even though the infection has cleared. The radiographic improvement can take up to 4-6 weeks.? Patient is on minimal ventilator setting, oxygen requirement is stable, and has completed antibiotics course. -UTI unlikely sources of infection given low number of colonies and long antibiotics treatment in ICU. -Per ENT, Phillips, patient does not have acute coalescent mastoiditis in either ear. Left and right middle ear is also not filled with effusion. -Chest x-ray 06/07 AM, showed a left lower lobe consolidation, ddx left lower lobe pneumonia versus mucous plug versus left pleural effusion versus mucous plug versus atelectasis lung ultrasound at bedside, effusion ruled out, no hepatization of the lung noted. Bedside bronchoscopy showed left lower lobe mucous plug, cleared with deep suction Plan: IV Zosyn 06/05-06/18 for 14-day course coverage of Pseudomonas IV Zosyn 3.375g x1 (at 05/08) IV Ceftriaxone 1g x1 (at 05/08) IV Acyclovir 640mg q8hr (05/08-05/11) IV Ceftriaxone 2g q12hr (05/08-05/11) IV Vancomycin qd (05/08-05/11) since MRSA screen is negative IV Meropenem 1000mg q8hr (05/12-05/22, 05/24-05/25) IV Doxycycline (05/16-05/18) IV Micafungin 100mg qd (05/28-05/30, 06/01-06/03) IV fluconazole 06/05-06/07 Follow-up: - Once weaned off sedation and patient has cough reflex intact and more awake/alert, will consider chest physiotherapy. #Phimosis s/p dorsal slit procedure 06/08/2025 #Paraphimosis (resolved) #Balanitis (resolved) Diagnostic workup: - Edema and tenderness of the glans penis, Swelling of the distal retracted foreskin, Constricting band of tissue proximal to the head of the penis at the coronal sulcus on presentation, s/p reduction of the paraphimosis by urologist Dr. Vargas on 05/09 and phimosis dorsal slit on 06/08 Plan: - Monitor for worsening swelling, bleeding, or blockage of urine #Seizure disorder by history #Cerebral palsy by history Diagnostic workup: - Active seizure disorder ruled out, multiple EEGs negative for seizure activity Plan: - Hold Depakote 250 mg GT every 8 hours and Continue Keppra 500 mg GT twice daily #Sinus tachycardia Differential diagnosis: Infection, hypersympathetic activity Diagnostic workup: - Did have positive sputum and urine culture for Pseudomonas and ESBL respectively - Patient's last fever was 06/12/2025 05:46 - Echocardiogram was obtained to rule out any vegetations TTE shows normal systolic function, EF 55 to 60%, diastolic dysfunction grade 1, no evidence of vegetation or endocarditis Plan: -Propranolol discontinued - Continue antibiotics - Monitor for fever, use ibuprofen as needed for fever episode - Telemetry monitoring #Elevated alkaline phosphatase, improving #Low PTH #Abnormal nuclear medicine bone scan Differential diagnosis: increased osteoblastic activity in setting of vegetative state, bone infection (particularly of left mastoid), hypoparathyroidism, osteoarthritis Diagnostic workup: - PTH intact low at 3.6, calcium 9.9, vitamin D 25-OH 18.1 - Renal function intact, at baseline - Nuclear medicine bone scan shows minor asymmetric uptake left knee and mild increased uptake mid left tibia - Knee x-ray 06/06 and tibia-fibula x-ray 06/06 showed no findings diagnostic for osseous metastatic disease - MRI left leg 06/08 images severely degraded by continuous patient motion - No pain to palpation of bilateral lower extremities Plan: - discontinued sevelamer, - Patient to follow up on abnormal imaging outpatient #Tongue Laceration, traumatic #Gingivial Bleeding, Oral Trauma Diagnostic workup: -Known to have episodes of jaw spasms and teeth clenching with agitation. Had significant trauma to gums and tongue due to clenching of teeth 06/06 - No further bleeding appreciated in oral mucosa Plan: - Patient required cisatracurium to relax jaw, pressure was applied locally, oral packing none, injections of lido?epinephrine x 3 to gums on 06/06 night - Monitor for bleeding #Bronchospasm #History of asthma -Magnesium for bronchodilator effect as needed. Plan: -Albuterol and Ipratropium as needed. #Failed extubation 05/12 #Acute hypoxic respiratory failure s/p tracheostomy #Ventilator dependent -Patient underwent tracheostomy on 05/26/2025 -Chest physiotherapy daily #Chronic PEG tube dependence -Nepro 1.8 Christ 1L RTH -Pro Stat Sugar Free 30 ml #Hyperphosphatemia Plan: -Sevelamer 1g GT 2 times daily, adjust if needed, being held #Normocytic Anemia #Leukocytosis-Resolving #Maculopapular rash to the buttocks-Resolving #Acute urinary retention-Resolved #Hypoalbuminemia-Resolved #Hyperkalemia-Resolved #Acute kidney injury-Resolved #Anion Gap Metabolic Acidosis-Resolved #Acute nonocclusive thrombus in the left brachial vein-Resolved Disposition: Tele overflow (ICU) DVT prophylaxis: SCDs GI prophylaxis: Protonix IV Diet: Nepro 1.8 Christ 1L RTH and Pro Stat Sugar Free 30 ml-bolus feeds Lines: PIV CODE STATUS: Full This case was discussed with my attending physician, Dr. Fishman, and senior resident, Dr. Larson. Fernie Dalal, PGY1 Attending Provider Attestation/Addendum Patient had ROLLER GOLD LEAF today in room 253. The patient became tachycardic, very restless with reported low oxygen saturation however monitor showed a poor waveform. Patient calm down after receiving dose of Ativan and Dilaudid. Continue current treatment. LTAC will be discussed with family members by the high school social studies teacher/senior buyer planner. I discussed with and supervised the resident physician who took care of this patient. I agree with the assessment and plan as above.
[2025-06-27] MEDS: DIAZEPAM INJ 5 MG/ML VIAL 2 ML IVP (07:36)
[2025-06-27] MEDS: ACETAMINOPHEN IVPB 1,000 MG/100 ML VIAL 250 MG IV (07:42)
[2025-06-27 08:14] LABS: Basophils # (Auto) 0.2 Thou/mm3 (0.0-0.2); Basophils % (Auto) 1 % (0-2.5); Eosinophils # (Auto) 0.8 Thou/mm3 (0.0-0.5); Eosinophils % (Auto) 4 % (0-10); Hematocrit 30.6 % (41.0-53.0); Hemoglobin 9.2 g/dL (13.5-16.0); Immature Granulocytes Auto 0.07 Thou/mm3 (0.00-0.00); Lymphocytes # (Auto) 6.1 Thou/mm3 (1.0-4.8); Lymphocytes % (Auto) 32 % (10-50); Mean Corpuscular HGB Conc 30.1 g/dl (31.0-37.0); Mean Corpuscular Hemoglobin 25.9 pg (25.0-35.0); Mean Corpuscular Volume 86 fL (80-100); Monocytes # (Auto) 1.5 Thou/mm3 (0.0-0.8); Monocytes % (Auto) 8 % (0-12); Neutrophils # (Auto) 10.3 Thou/mm3 (1.8-7.7); Neutrophils % (Auto) 54 % (37-80); Nucleated Red Blood Cell # 0.00 Thou/mm3 (0.00-0.00); Nucleated Red Blood Cell % 0 /100 WBC (0); Platelet Count 458 Thou/mm3 (140-440); RDW Standard Deviation 49.7 fL (35.1-43.9); Red Blood Count 3.55 Miln/mm3 (4.50-5.90); White Blood Count 19.0 Thou/mm3 (3.8-10.6)
[2025-06-27 08:37] LABS: Alanine Aminotransferase 67 U/L (10-49); Albumin, Serum 5.1 gm/dL (3.5-5.0); Albumin/Globulin Ratio 1.6 (1.2-2.2); Alkaline Phosphatase 122 U/L (46-116); Anion Gap 15 (7-16); Aspartate Amino Transferase 45 U/L (0-34); BUN/Creatinine Ratio 35 Ratio (12-20); Bilirubin,Total 0.3 mg/dL (0.3-1.2); Blood Urea Nitrogen 28 mg/dL (9-23); Calcium 11.1 mg/dL (8.3-10.6); Calcium (Corrected) 11.1 mg/dL (8.5-10.1); Carbon Dioxide 23.1 mMol/L (20.0-31.0); Chloride 108 mMol/L (98-107); Creatinine (Component) 0.8 mg/dL (0.6-1.3); Estimated Creatinine Clearance 95.2 mL/min (>60); Globulin 3.1 gm/dL (2.3-3.5); Glucose 111 mg/dL (74-106); Magnesium 2.2 mg/dL (1.6-2.6); Osmolality,Calculated 297 (275-295); Phosphorous 4.4 mg/dL (2.4-5.1); Potassium 4.5 mMol/L (3.4-5.1); Sodium 146 mMol/L (136-145); Total Protein 8.2 gm/dL (5.7-8.2); eGFR > 60 See Note
[2025-06-27] MEDS: NYSTATIN PWD 15 GM BTL TOP (08:40)
[2025-06-27] MEDS: levETIRAcetam LIQD 500 MG/5 ML UDC 800 MG GT ×2 (08:40→22:24)
[2025-06-27] MEDS: GABAPENTIN 300 MG CAPSULE GT ×3 (09:45→22:25)
--- NOTE | 2025-06-27 09:50 | CHAP ---
Responded to Rapid Response (09:50). No family. Said silent prayer by doorway.
--- NOTE | 2025-06-27 10:00 | XR_ITS ---
EXAMINATION: AP chest single view TECHNIQUE: AP portable supine chest single view Date and time: 2024, 10:32 a.m., comparison June 17, 2025 INDICATIONS: O2 desaturation today. FINDINGS: Suspicious for early bilateral perihilar right basilar pneumonia Reduced inspiratory effort Tracheostomy tube tip 3.2 cm above haresh Normal heart size IMPRESSION: Suspicious for early bilateral pneumonia
[2025-06-27] MEDS: LORazepam 2 MG/ML VIAL IVP ×2 (10:01→22:27)
--- NOTE | 2025-06-27 12:03 | PD.RESEVENT ---
Documentation for date of: 06/27/25 Event Note Event Note: Rapid response was called on 06/27/2025 at 9:49 for tachycardia to the 190s. Upon arriving in the room, patient was significantly more agitated than before, with heart rate in the 170s to 180s. Patient had previously received diazepam 5 mg, hydromorphone 1 mg, and acetaminophen 1 g about an hour earlier for increased agitation and fever. Patient was significantly more agitated and moving in bed compared to before. Patient received 2mg lorazepam, 1 mg hydromorphone, and 50 mg diphehydramine at that time. Chest x-ray was also ordered due to significant bilateral crackles, which showed suspicion for early bilateral pneumonia. This case was discussed with my attending physician, Dr. Fishman, and senior resident, Dr. Larson. Fernie Dalal, PGY1
--- NOTE | 2025-06-27 14:34 | PC.SS ---
Rounding Note: Rapid response was initiated on the patient due to elevated heart rate. Fever remains persistent. D/C plan LTAC placement.
[2025-06-27] MEDS: KETOROLAC INJ 30 MG/ML VIAL IVP (16:27)
--- NOTE | 2025-06-27 18:28 | PD.RESPRO ---
Documentation for date of: 06/27/25 Subjective Subjective Interval history: Patient seen in ICU as a tele patient. Today this morning he had a rapid response for tachycardia in the 180s, was severely agitated. He was given Benadryl, Dilaudid, Ativan, and Gabapentin. Increased clonazepam from BID to TID and seroquel 50 mg at noon added. Patient is active with continuous dyskinetic movements, rate in the 140s at the time of examination. Exam Vital Signs Temp Pulse Resp BP Pulse Ox O2 Del Method O2 Flow Rate 98.4 F 128 H 26 H 110/58 L 99 Blow-by 6 06/27/25 12:00 06/27/25 14:26 06/27/25 14:26 06/27/25 12:00 06/27/25 14:26 06/27/25 04:15 06/27/25 14:26 FiO2 28 06/27/25 14:26 Narrative Exam Gen: Non-purposeful movements, noninteractive. HEENT: Trach in place, on blow-by. Mucous membrances moist. MSK: No lower extremity edema, no redness, peripheral pulses presents, contracted hands, decreased tone Skin: No petechiae, lesions, erythematous Neuro: Alert and moving extremitie, pupils reactive, nonpurposeful dyskinetic movements with facial grimacing. Objective Labs 06/27/25 07:58 06/27/25 07:58 Labs: Laboratory Results - last 24 hr 06/27/25 07:58 WBC 19.0 H D RBC 3.55 L Hgb 9.2 L Hct 30.6 L MCV 86 MCH 25.9 MCHC 30.1 L RDW Std Deviation 49.7 H Plt Count 458 H Neut % (Auto) 54 Lymph % (Auto) 32 Greer % (Auto) 8 Eos % (Auto) 4 Baso % (Auto) 1 Neut # (Auto) 10.3 H Lymph # (Auto) 6.1 H Greer # (Auto) 1.5 H Eos # (Auto) 0.8 H Baso # (Auto) 0.2 Immature Gran # (Auto) 0.07 H Absolute Nucleated RBC 0.00 Immature Gran % 0 Nucleated RBC % 0 Sodium 146 H Potassium 4.5 D Chloride 108 H Carbon Dioxide 23.1 Anion Gap 15 BUN 28 H Creatinine 0.8 Estim Creat Clear Calc 95.2 eGFR > 60 BUN/Creatinine Ratio 35 H Glucose 111 H Calculated Osmolality 297 H Calcium 11.1 H Corrected Calcium 11.1 H Phosphorus 4.4 Magnesium 2.2 Total Bilirubin 0.3 AST 45 H ALT 67 H Alkaline Phosphatase 122 H Total Protein 8.2 Albumin 5.1 H Globulin 3.1 Albumin/Globulin Ratio 1.6 ABG Interpretation ABG results: 05/09/25 05/09/25 05/09/25 11:56 13:40 18:50 ABG pH 7.40 7.27 L D 7.28 L ABG pCO2 40 43 55 H D ABG pO2 131 H 53 L* D 70 L ABG HCO3 25 20 26 ABG O2 Saturation 99 H 81 L 92 ABG Base Excess 0 -7 L -2 VBG pH VBG pCO2 VBG pO2 VBG Base Excess 05/10/25 05/11/25 05/12/25 00:14 05:06 01:18 ABG pH 7.35 7.33 L 7.39 ABG pCO2 42 D 54 H D 48 ABG pO2 103 D 93 94 ABG HCO3 23 28 H 29 H ABG O2 Saturation 99 H 98 98 ABG Base Excess -3 2 3 VBG pH VBG pCO2 VBG pO2 VBG Base Excess 05/12/25 05/12/25 05/13/25 03:58 11:50 05:10 ABG pH 7.46 H 7.39 7.19 L* D ABG pCO2 41 48 60 H D ABG pO2 105 58 L* D 114 H D ABG HCO3 29 H 29 H 23 ABG O2 Saturation 99 H 90 L 98 ABG Base Excess 5 H 4 H -6 L VBG pH VBG pCO2 VBG pO2 VBG Base Excess 05/17/25 05/18/25 05/19/25 01:30 04:09 04:43 ABG pH 7.38 7.43 7.47 H ABG pCO2 46 44 43 ABG pO2 90 83 80 L ABG HCO3 27 H 29 H 31 H ABG O2 Saturation 98 97 97 ABG Base Excess 2 5 H 7 H VBG pH VBG pCO2 VBG pO2 VBG Base Excess 05/21/25 05/21/25 05/31/25 04:18 06:33 08:06 ABG pH 7.37 D 7.46 H ABG pCO2 50 H 38 D ABG pO2 40 L* D 121 H D ABG HCO3 29 H 27 H ABG O2 Saturation 66 L 100 H ABG Base Excess 3 3 VBG pH 7.55 VBG pCO2 31 L VBG pO2 144 H VBG Base Excess 5 H 06/05/25 06/05/25 06/06/25 13:37 23:46 05:20 ABG pH 7.47 H 7.45 ABG pCO2 35 38 ABG pO2 200 H 54 L* D ABG HCO3 25 26 ABG O2 Saturation 101 H 89 L ABG Base Excess 2 2 VBG pH 7.50 VBG pCO2 34 L VBG pO2 90 H VBG Base Excess 4 H 06/10/25 17:41 ABG pH ABG pCO2 ABG pO2 ABG HCO3 ABG O2 Saturation ABG Base Excess VBG pH 7.40 VBG pCO2 43 VBG pO2 43 VBG Base Excess 2 Quality Measures Quality Measures VTE prophylaxis Assessment & Plan Assessment Current Active Medications: Generic Name Dose Route Start Last Admin Trade Name Freq PRN Reason Stop Dose Admin Acetaminophen 325 mg 06/16/25 16:18 06/26/25 19:31 Acetaminophen Racquel 325 Mg/10 Ml Udc 07/09/25 16:12 325 mg Q4HR PRN Administration pain (1-3) or fever > 100.4 Amantadine HCl 100 mg 06/23/25 14:30 06/27/25 13:26 Amantadine Hcl 100 Mg Capsule PO 06/30/25 14:29 100 mg BID@0700,1400 KYA Administration Clonazepam 0.5 mg 06/27/25 22:00 Clonazepam 0.5 Mg Tablet GT 07/02/25 21:59 TID KYA Gabapentin 300 mg 06/27/25 16:00 06/27/25 15:58 Gabapentin 300 Mg Capsule GT 07/27/25 15:59 300 mg TID KYA Administration Ketorolac Tromethamine 30 mg 06/26/25 08:03 06/27/25 16:27 Ketorolac Inj 30 Mg/Ml Vial IVP 06/30/25 11:15 30 mg Q12HR PRN Administration PAIN 4-10 Levetiracetam 800 mg 06/20/25 21:00 06/27/25 08:40 Levetiracetam Liqd 500 Mg/5 Ml Udc GT 07/20/25 20:59 800 mg BID KYA Administration Pantoprazole Sodium 40 mg 06/22/25 11:15 06/27/25 08:40 Pantoprazole Inj 40 Mg Vial IVP 07/22/25 11:14 40 mg QDAY KYA Administration Quetiapine Fumarate 100 mg 06/21/25 21:00 06/26/25 20:00 Quetiapine Fumarate 100 Mg Tablet GT 07/21/25 20:59 100 mg HS KYA Administration Quetiapine Fumarate 50 mg 06/21/25 09:15 06/27/25 08:40 Quetiapine Fumarate 25 Mg Tablet GT 07/21/25 09:14 50 mg QAM KYA Administration Quetiapine Fumarate 50 mg 06/28/25 12:00 Quetiapine Fumarate 25 Mg Tablet PO 07/28/25 11:59 QDAY@1200 COUNTS INCLUDE 234 BEDS AT THE [facility] Plan 24-year-old male with cerebral palsy, asthma, seizure disorder, chronic mastoiditis, recurrent pneumonia, and chronic PEG tube dependence presented with fever and seizure, was admitted for sepsis workup, and later transferred to the ICU for intubation due to concerns about airway protection. Patient has been downgraded from ICU to tele on 06/16/2025 #Fevers of unknown origin #Dyskinesia #Hx of seizure disorder #Hx of cerebral palsy EEG 05/11 unremarkable. Repeat EEG 05/20 showed electrographic seizure activity. Continuous EEG 05/22-05/23: no seizure activity or status epilepticus. Repeat EEG 06/05 negative for seizure activity. MRI brain: no acute pathology. Was previously tried on Austedo however LT[facility] cannot administer this med. - Etiology behind fevers remains unclear. DDx: medications, infectious, hypermetabolic syndrome - Continue Keppra 800 mg GT twice daily - Increased clonazepam 0.5 mg BID to TID - Seroquel 50 mg at noon was added to 50 mg AM and 100 mg HS. - Currently on amantadine 100 mg BID, might consider switching to carbidopa-levodopa but will wait at this time - Patient is still being attempted to discharge to LTAC, accepted however family still deciding where #Chronic mastoiditis #Hx of ESBL UTI #Pseudomonas aeruginosa, sputum positive #Mucus plugs, right upper lung and left lower lung ? #Paraphimosis (resolved) #Balanitis (resolved) #Gingivial Bleeding, Oral Trauma #Sever Asthma #Maculopapular rash to the buttocks-Resolving - as per primary team Patient was discussed with the Neurology attending, Dr. Lang. Thank you for allowing us to participate in the care of this patient. Christy Cheema, PGY-3 Attending Provider Attestation/Addendum Personally have seen and examined the patient at the bedside and agreed with the resident's findings, assessment and plan of care. As he continued to have abnormal involuntary movements, dyskinesias, agitation and tachycardia, we will increase the frequency of clonazepam and Seroquel. Noted that he is waiting for placement at LTAC.
[2025-06-28] VITALS (30 sets, daily range): BP systolic 109–132; BP diastolic 72–80; PULSE 114–138; RESP 22–32; TEMP 36.3–37.2; O2SAT 87–100; BMI 24.5
[2025-06-28] MEDS: GABAPENTIN 300 MG CAPSULE GT ×2 (05:51→13:12)
[2025-06-28] MEDS: KETOROLAC INJ 30 MG/ML VIAL IVP (05:51)
[2025-06-28 08:37] LABS: Basophils # (Auto) 0.2 Thou/mm3 (0.0-0.2); Basophils % (Auto) 2 % (0-2.5); Eosinophils # (Auto) 0.7 Thou/mm3 (0.0-0.5); Eosinophils % (Auto) 8 % (0-10); Hematocrit 31.5 % (41.0-53.0); Hemoglobin 9.5 g/dL (13.5-16.0); Immature Granulocytes Auto 0.03 Thou/mm3 (0.00-0.00); Lymphocytes # (Auto) 2.7 Thou/mm3 (1.0-4.8); Lymphocytes % (Auto) 31 % (10-50); Mean Corpuscular HGB Conc 30.2 g/dl (31.0-37.0); Mean Corpuscular Hemoglobin 25.9 pg (25.0-35.0); Mean Corpuscular Volume 86 fL (80-100); Monocytes # (Auto) 1.0 Thou/mm3 (0.0-0.8); Monocytes % (Auto) 12 % (0-12); Neutrophils # (Auto) 4.2 Thou/mm3 (1.8-7.7); Neutrophils % (Auto) 48 % (37-80); Nucleated Red Blood Cell # 0.00 Thou/mm3 (0.00-0.00); Nucleated Red Blood Cell % 0 /100 WBC (0); Platelet Count 412 Thou/mm3 (140-440); RDW Standard Deviation 49.3 fL (35.1-43.9); Red Blood Count 3.67 Miln/mm3 (4.50-5.90); White Blood Count 8.7 Thou/mm3 (3.8-10.6)
[2025-06-28 09:00] LABS: Anion Gap 13 (7-16); BUN/Creatinine Ratio 31 Ratio (12-20); Blood Urea Nitrogen 28 mg/dL (9-23); Calcium 11.7 mg/dL (8.3-10.6); Carbon Dioxide 23.4 mMol/L (20.0-31.0); Chloride 109 mMol/L (98-107); Creatinine (Component) 0.9 mg/dL (0.6-1.3); Estimated Creatinine Clearance 84.7 mL/min (>60); Glucose 85 mg/dL (74-106); Osmolality,Calculated 293 (275-295); Potassium 3.9 mMol/L (3.4-5.1); Procalcitonin 0.55 ng/ml (0.0-0.49); Sodium 145 mMol/L (136-145); eGFR > 60 See Note
[2025-06-28] MEDS: levETIRAcetam LIQD 500 MG/5 ML UDC 800 MG GT ×2 (09:08→21:29)
--- NOTE | 2025-06-28 09:25 | ESPR_ITS ---
<Statement entered by Ru Larson MD - 06/28/25 21:04> I saw and examined patient personally and supervised PGY 1 resident, Dr. Dalal with formulating a management plan. I agree with the documentation with the exceptions as listed below. 24-year-old male with cerebral palsy, asthma, seizure disorder, chronic mastoiditis, recurrent pneumonia, and chronic PEG tube dependence presented with fever and seizure, was admitted for sepsis workup, and later transferred to the ICU for intubation due to concerns about airway protection. Patient has been downgraded from ICU to tele on 05/31/2025; however, re-upgraded to ICU on 06/05 due to tachycardia in 160s, tachypnea, persistent fever, and ventilator asynchrony. Problem list: 1. Psychogenic fevers 2. Hospital-acquired delirium 3. 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 Cerebral palsy 5. Epilepsy 6. Tardive dyskinesia 7. Possible opioid withdrawal 8. Sepsis secondary to bilateral otitis media and sinusitis?resolved 9. Sinus tachycardia With regards to patient's psychogenic fevers, he remained afebrile for more than 24 hours so far. For his thyroiditis dyskinesia, currently continuing treatment with amantadine 100 mg p.o. twice daily. Patient does have a history of epilepsy and cerebral palsy complicated by tar dive dyskinesia. He has episodes of extreme agitation and tachycardia since hospitalization with his highest rates being in the 180s?190s. Today he was resting and sleeping mostly with heart rate of 120s. Differentials at this time for his agitation, tachycardia, diaphoresis and hide anemia including both previous Cramer syndrome and paroxysmal sympathetic hyperactivity. Reverse Cramer syndrome is very rare with only 10 reported cases so far. The treatment is levodopa 200 mg p.o. daily, however our hospital does not stock this medication and only has combination carbidopa/levodopa. With regards to paroxysmal sympathetic hyperactivity, treatment is supportive and mainly involves fluids to avoid dehydration from excessive movements, diaphoresis and hypothermia. With regards to patient's repeated, almost daily episodes of agitation he was started on gabapentin 300 mg GT 3 times daily yesterday and showed much improvement. Today increase the dose to gabapentin 600 mg GT 3 times daily. Will monitor for response and titrate as necessary. Patient was accepted to LTAC in [place], however patient is not clinically stable at this point in time for transfer. We will see how he responds to his medication changes tomorrow. Possible transfer within next 24 to 48 hours to LTAC. Plan of care discussed with Attending Dr. Laurence Larson MD PGY 2 Disclaimer: This note was dictated by speech recognition. Minor errors in press writer may be present due to voice recognition software. Documentation for date of: 06/28/25 Subjective Subjective Interval history: Patient seen and examined at bedside; no acute events overnight. Overnight and today, required multiple doses of ativan and dilaudid. Exam Vital Signs Temp Pulse Resp BP Pulse Ox O2 Del Method O2 Flow Rate 98.9 F 120 H 26 H 122/78 98 Blow-by 6 06/28/25 04:00 06/28/25 06:37 06/28/25 06:37 06/28/25 04:00 06/28/25 06:37 06/27/25 04:15 06/28/25 06:37 FiO2 28 06/28/25 06:37 Narrative Exam General: A/O x0, calmer than yesterday, tachycardic, on ventilator Eyes: PERRL, EOMI. Anicteric, vision grossly intact. Ears: No ear pain, no ear discharge, Hearing grossly intact. Nose: No nasal discharge. Mouth/Throat: Moist mucous membranes, no redness, no lesions. Neck: Neck supple, non-tender, no cervical lymphadenopathy. Lungs: Coarse breath sounds bilaterally on blow-by, No accessory muscle use. Cardio: Normal S1/S2, very tachycardic, no murmurs, no JVD or carotid bruits. Abdomen: Soft, non-tender, no palpable masses, peristalsis present, no guarding or rebound, PEG tube in place Extremities: Symmetrical, no significant deformities, no peripheral edema , non-tender, peripheral pulses present. Skin: No rashes, no lesions, warm to touch. Neuro: No focal neurological deficits. Psych: Agitated, nonpurposeful movements with grimacing Objective Labs 06/28/25 08:12 06/28/25 08:12 Labs: Laboratory Results - last 24 hr 06/28/25 08:12 WBC 8.7 D RBC 3.67 L Hgb 9.5 L Hct 31.5 L MCV 86 MCH 25.9 MCHC 30.2 L RDW Std Deviation 49.3 H Plt Count 412 D Neut % (Auto) 48 Lymph % (Auto) 31 Otoe % (Auto) 12 Eos % (Auto) 8 Baso % (Auto) 2 Neut # (Auto) 4.2 Lymph # (Auto) 2.7 Otoe # (Auto) 1.0 H Eos # (Auto) 0.7 H Baso # (Auto) 0.2 Immature Gran # (Auto) 0.03 H Absolute Nucleated RBC 0.00 Immature Gran % 0 Nucleated RBC % 0 Sodium 145 Potassium 3.9 D Chloride 109 H Carbon Dioxide 23.4 Anion Gap 13 BUN 28 H Creatinine 0.9 Estim Creat Clear Calc 84.7 eGFR > 60 BUN/Creatinine Ratio 31 H Glucose 85 Calculated Osmolality 293 Calcium 11.7 H Procalcitonin 0.55 H ABG Interpretation ABG results: 05/09/25 05/09/25 05/09/25 11:56 13:40 18:50 ABG pH 7.40 7.27 L D 7.28 L ABG pCO2 40 43 55 H D ABG pO2 131 H 53 L* D 70 L ABG HCO3 25 20 26 ABG O2 Saturation 99 H 81 L 92 ABG Base Excess 0 -7 L -2 VBG pH VBG pCO2 VBG pO2 VBG Base Excess 05/10/25 05/11/25 05/12/25 00:14 05:06 01:18 ABG pH 7.35 7.33 L 7.39 ABG pCO2 42 D 54 H D 48 ABG pO2 103 D 93 94 ABG HCO3 23 28 H 29 H ABG O2 Saturation 99 H 98 98 ABG Base Excess -3 2 3 VBG pH VBG pCO2 VBG pO2 VBG Base Excess 05/12/25 05/12/25 05/13/25 03:58 11:50 05:10 ABG pH 7.46 H 7.39 7.19 L* D ABG pCO2 41 48 60 H D ABG pO2 105 58 L* D 114 H D ABG HCO3 29 H 29 H 23 ABG O2 Saturation 99 H 90 L 98 ABG Base Excess 5 H 4 H -6 L VBG pH VBG pCO2 VBG pO2 VBG Base Excess 05/17/25 05/18/25 05/19/25 01:30 04:09 04:43 ABG pH 7.38 7.43 7.47 H ABG pCO2 46 44 43 ABG pO2 90 83 80 L ABG HCO3 27 H 29 H 31 H ABG O2 Saturation 98 97 97 ABG Base Excess 2 5 H 7 H VBG pH VBG pCO2 VBG pO2 VBG Base Excess 05/21/25 05/21/25 05/31/25 04:18 06:33 08:06 ABG pH 7.37 D 7.46 H ABG pCO2 50 H 38 D ABG pO2 40 L* D 121 H D ABG HCO3 29 H 27 H ABG O2 Saturation 66 L 100 H ABG Base Excess 3 3 VBG pH 7.55 VBG pCO2 31 L VBG pO2 144 H VBG Base Excess 5 H 06/05/25 06/05/25 06/06/25 13:37 23:46 05:20 ABG pH 7.47 H 7.45 ABG pCO2 35 38 ABG pO2 200 H 54 L* D ABG HCO3 25 26 ABG O2 Saturation 101 H 89 L ABG Base Excess 2 2 VBG pH 7.50 VBG pCO2 34 L VBG pO2 90 H VBG Base Excess 4 H 06/10/25 17:41 ABG pH ABG pCO2 ABG pO2 ABG HCO3 ABG O2 Saturation ABG Base Excess VBG pH 7.40 VBG pCO2 43 VBG pO2 43 VBG Base Excess 2 Quality Measures Quality Measures VTE prophylaxis Assessment & Plan Assessment Current Active Medications: Generic Name Dose Route Start Last Admin Trade Name Freq PRN Reason Stop Dose Admin Acetaminophen 325 mg 06/16/25 16:18 06/26/25 19:31 Acetaminophen Racquel 325 Mg/10 Ml Udc GT 07/09/25 16:12 325 mg Q4HR PRN Administration pain (1-3) or fever > 100.4 Amantadine HCl 100 mg 06/23/25 14:30 06/28/25 09:08 Amantadine Hcl 100 Mg Capsule PO 06/30/25 14:29 100 mg BID@0700,1400 KYA Administration Clonazepam 0.5 mg 06/27/25 22:00 06/28/25 05:51 Clonazepam 0.5 Mg Tablet GT 07/02/25 21:59 0.5 mg TID KYA Administration Gabapentin 300 mg 06/27/25 16:00 06/28/25 05:51 Gabapentin 300 Mg Capsule GT 07/27/25 15:59 300 mg TID KYA Administration Dextrose/Sodium Chloride 500 mls @ 125 mls/hr 06/28/25 07:45 D5-1/2ns IV 06/28/25 11:44 .Q4H KYA Ketorolac Tromethamine 30 mg 06/26/25 08:03 06/28/25 05:51 Ketorolac Inj 30 Mg/Ml Vial IVP 06/30/25 11:15 30 mg Q12HR PRN Administration PAIN 4-10 Levetiracetam 800 mg 06/20/25 21:00 06/28/25 09:08 Levetiracetam Liqd 500 Mg/5 Ml Udc GT 07/20/25 20:59 800 mg BID KYA Administration Pantoprazole Sodium 40 mg 06/22/25 11:15 06/28/25 09:07 Pantoprazole Inj 40 Mg Vial IVP 07/22/25 11:14 40 mg QDAY KYA Administration Quetiapine Fumarate 100 mg 06/21/25 21:00 06/27/25 22:25 Quetiapine Fumarate 100 Mg Tablet GT 07/21/25 20:59 100 mg HS KYA Administration Quetiapine Fumarate 50 mg 06/21/25 09:15 06/28/25 09:07 Quetiapine Fumarate 25 Mg Tablet GT 07/21/25 09:14 50 mg QAM KYA Administration Quetiapine Fumarate 50 mg 06/28/25 12:00 Quetiapine Fumarate 25 Mg Tablet PO 07/28/25 11:59 QDAY@1200 [facility] Plan 25-year-old male with cerebral palsy, asthma, seizure disorder, chronic mastoiditis, recurrent pneumonia, and chronic PEG tube dependence presented with fever and seizure, was admitted for sepsis workup, and later transferred to the ICU for intubation due to concerns about airway protection. Patient downgraded from ICU to tele on 05/31/2025; however, re-upgraded to ICU on 06/05 due to tachycardia in 160s, tachypnea, persistent fever, and ventilator asynchrony. #Hospital acquired delirium #Agitation Differential diagnosis: ICU acquired delirium, opiate withdrawal, delirium Diagnostic workup: - Patient was weaned off of sedation and was downgraded to telemetry, however as sedatives were down titrated and telemetry patient had episode of severe agitation and ventilator asynchrony and was upgraded to ICU for further intervention. - EEG 05/11 unremarkable. Repeat EEG 05/20 showed electrographic seizure activity. Continuous EEG 05/22-05/23: no seizure activity or status epilepticus. Repeat EEG 06/05 negative for seizure activity. - MRI brain 05/23: showed chronic infections, no acute pathology. - Cisatracurium gtt discontinued - Versed gtt discontinued - Phenobarbital 129.6 discontinued - Oxycodone 10 mg discontinued Plan: -Amantadine 100mg po bid -Clonazepam 0.5 mg GT TID -Hold orders for respiratory rate <14, heart rate <70, or BP <100/60 for above meds - Gabapentin 600 TID #Psychogenic fever #? Opioid withdrawal Patient admitted for fever of unknown origin, case discussed with multiple specialities in house and transfer was attempted. See transfer nurse's note for details however patient denied at [facility], [facility], [facility] [place] [place] and other tertiary facilities as per them and transfer nurse there is no different workup/services that can be offered at tertiary care. Neurologist from [facility] [place] [place] Dr. Martínez thinks the underlying etiology of fever psychogenic fever Patient previously received hydromorphone daily Plan: -Control agitation as above - Monitor for fever #Tardive dyskinesia Diagnostic workup: - Nonpurposeful twisting movements of the patient's upper extremity with recurrent grimaces noted on 06/10 when the patient was taken off sedation - Patient's family notes that the patient has had a long history of nonpurposeful movement and has been previously prescribed deutetrabenazine for management by his neurologist - Per ICU, if deutetrabenazine remains ineffective, will increase to 12 mg twice daily after 1 week of starting the medication, may take up to 4 weeks to see maximal effect -Deutetrabenazine was discontinued in ICU, will continue to hold Plan: -Amantadine as above -Seroquel 100mg GT HS -Seroquel 50mg GT noon -Seroquel 50mg GT QAM #Sepsis #Bilateral chronic mastoiditis #Sinusitis #Bilateral otitis media #Bilateral otitis externa #Brittney parapsilosis #Community Acquired Pneumonia #UTI, E.coli, ESBL #Pseudomonas aeruginosa, sputum positive #Mucus plugs, right upper lung and left lower lung ? -History of chronic mastoiditis. -Met SIRS criteria on admission: T 105F, HR 176, RR 26, PaCO2 26, WBC 16.3. -Head CT (05/08/2025): prominent sphenoid ethmoid maxillary antral sinusitis, bilateral chronic mastoiditis, bilateral otitis media. -CT Orbit Sella Inner (05/08/2025): severe bilateral chronic mastoiditis, bilateral otitis externa and otitis media, bilateral cholesteatomas in the attics. -CXR (05/09/2025): Bilateral Perihilar Pneumonia. CXR (05/13/2025): Extensive Bilateral Pneumonia, CXR(05/19/2025): Significant bilateral Pneumonia -CT Chest/abd/pelvis (05/16/2025): Extensive bilateral pneumonia, Cystitis pattern, Cholelithiasis -A repeat Cocci serology test was negative -Lumbar puncture(05/10/2025): clear, WBC 3, glucose 70, total protein 25. CSF testing negative. -Respiratory viral panel (05/10/2025): rhinovirus/enterovirus and human metapneumovirus detected. -UA 05/08 and 05/16 negative. -06/17 Chest x-ray negative. CTAP negative [Culture Hx] -1st Blood Cx (05/08): No growth for 5 days. 2nd Blood Cx (05/11): No growth for 5 days, 3rd Blood Cx (05/16): No growth for 5 days, 4th Blood Cx (06/01): No growth for 48hrs -1st Sputum Cx (05/09): Pseudomonas aeruginosa (only sensitive to Meropenem, Tobramycin). 2nd Sputum Cx (05/13): Mixed oral hamilton. 3rd Sputum Cx (05/19): Mixed oral hamilton, 4th Sputum Cx (05/20): Brittney albicans, 5th Sputum Cx (06/01): GNR -CSF Cx (05/10): No growth for 3 days -Left Ear Cx (05/12): Brittney parapsilosis -Right Ear Cx(05/12): E.coli, ESBL (only sensitive to Ertapenem, Meropenem, Zosyn) -Urine Cx (06/01): E.coli, ESBL (only sensitive to Ertapenem, Meropenem, Nitrofurantoin, Zosyn) -Sputum culture 06/05 shows sensitive to Zosyn and intermittent resistance to cefepime [Antibiotics/Antifungal Hx] IV Zosyn 3.375g x1 (at 05/08) IV Ceftriaxone 1g x1 (at 05/08) IV Acyclovir 640mg q8hr (05/08-05/11) since LP negative. IV Ceftriaxone 2g q12hr (05/08-05/11) IV Vancomycin qd (05/08-05/11) since MRSA screen is negative Ofloxacin Opt racquel 0.3% 5 drops Both ears bid (05/09-05/18, 05/21-05/31) IV Meropenem 1000mg q8hr (05/12-05/22, 05/24-05/25) IV Doxycycline (05/16-05/18) IV Micafungin 100mg qd (05/28-05/30, 06/01-06/03) Ciprofloxacin Op Racquel 0.3% ear drops (06/02-06/03) -CXR is showing pneumonia, but CXR often remain abnormal for days to weeks. The infiltrate or consolidation can persist even though the infection has cleared. The radiographic improvement can take up to 4-6 weeks.? Patient is on minimal ventilator setting, oxygen requirement is stable, and has completed antibiotics course. -UTI unlikely sources of infection given low number of colonies and long antibiotics treatment in ICU. -Per ENT, Dr. Ojeda, patient does not have acute coalescent mastoiditis in either ear. Left and right middle ear is also not filled with effusion. -Chest x-ray 06/07 AM, showed a left lower lobe consolidation, ddx left lower lobe pneumonia versus mucous plug versus left pleural effusion versus mucous plug versus atelectasis lung ultrasound at bedside, effusion ruled out, no hepatization of the lung noted. Bedside bronchoscopy showed left lower lobe mucous plug, cleared with deep suction Plan: IV Zosyn 06/05-06/18 for 14-day course coverage of Pseudomonas IV Zosyn 3.375g x1 (at 05/08) IV Ceftriaxone 1g x1 (at 05/08) IV Acyclovir 640mg q8hr (05/08-05/11) IV Ceftriaxone 2g q12hr (05/08-05/11) IV Vancomycin qd (05/08-05/11) since MRSA screen is negative IV Meropenem 1000mg q8hr (05/12-05/22, 05/24-05/25) IV Doxycycline (05/16-05/18) IV Micafungin 100mg qd (05/28-05/30, 06/01-06/03) IV fluconazole 06/05-06/07 Follow-up: - Once weaned off sedation and patient has cough reflex intact and more awake/alert, will consider chest physiotherapy. #Phimosis s/p dorsal slit procedure 06/08/2025 #Paraphimosis (resolved) #Balanitis (resolved) Diagnostic workup: - Edema and tenderness of the glans penis, Swelling of the distal retracted foreskin, Constricting band of tissue proximal to the head of the penis at the coronal sulcus on presentation, s/p reduction of the paraphimosis by urologist Dr. Vargas on 05/09 and phimosis dorsal slit on 06/08 Plan: - Monitor for worsening swelling, bleeding, or blockage of urine #Seizure disorder by history #Cerebral palsy by history Diagnostic workup: - Active seizure disorder ruled out, multiple EEGs negative for seizure activity Plan: - Hold Depakote 250 mg GT every 8 hours and Continue Keppra 800 mg GT twice daily #Sinus tachycardia Differential diagnosis: Infection, hypersympathetic activity Diagnostic workup: - Did have positive sputum and urine culture for Pseudomonas and ESBL respectively - Patient's last fever was 06/12/2025 05:46 - Echocardiogram was obtained to rule out any vegetations TTE shows normal systolic function, EF 55 to 60%, diastolic dysfunction grade 1, no evidence of vegetation or endocarditis Plan: -Propranolol discontinued - Monitor for fever, use ibuprofen as needed for fever episode - Telemetry monitoring #Elevated alkaline phosphatase, improving #Low PTH #Abnormal nuclear medicine bone scan Differential diagnosis: increased osteoblastic activity in setting of vegetative state, bone infection (particularly of left mastoid), hypoparathyroidism, osteoarthritis Diagnostic workup: - PTH intact low at 3.6, calcium 9.9, vitamin D 25-OH 18.1 - Renal function intact, at baseline - Nuclear medicine bone scan shows minor asymmetric uptake left knee and mild increased uptake mid left tibia - Knee x-ray 06/06 and tibia-fibula x-ray 06/06 showed no findings diagnostic for osseous metastatic disease - MRI left leg 06/08 images severely degraded by continuous patient motion - No pain to palpation of bilateral lower extremities Plan: - Follow up on abnormal imaging outpatient #Tongue Laceration, traumatic #Gingivial Bleeding, Oral Trauma Diagnostic workup: -Known to have episodes of jaw spasms and teeth clenching with agitation. Had significant trauma to gums and tongue due to clenching of teeth 06/06 - No further bleeding appreciated in oral mucosa Plan: - Patient required cisatracurium to relax jaw, pressure was applied locally, oral packing none, injections of lido?epinephrine x 3 to gums on 06/06 night - Monitor for bleeding #Bronchospasm #History of asthma -Magnesium for bronchodilator effect as needed. Plan: -Albuterol and Ipratropium as needed. #Failed extubation 05/12 #Acute hypoxic respiratory failure s/p tracheostomy #Ventilator dependent -Patient underwent tracheostomy on 05/26/2025 -Chest physiotherapy daily #Chronic PEG tube dependence -Nepro 1.8 Christ 1L RTH -Pro Stat Sugar Free 30 ml #Hyperphosphatemia Plan: -Sevelamer being held #Normocytic Anemia #Leukocytosis-Resolving #Maculopapular rash to the buttocks-Resolving #Acute urinary retention-Resolved #Hypoalbuminemia-Resolved #Hyperkalemia-Resolved #Acute kidney injury-Resolved #Anion Gap Metabolic Acidosis-Resolved #Acute nonocclusive thrombus in the left brachial vein-Resolved Disposition: Tele overflow (ICU) DVT prophylaxis: SCDs GI prophylaxis: Protonix IV Diet: Nepro 1.8 Christ 1L RTH and Pro Stat Sugar Free 30 ml-bolus feeds Lines: PIV CODE STATUS: Full This case was discussed with my attending physician, Dr. Dang, and senior resident, Dr. Larson. Fernie Dalal, PGY1 Attending Provider Attestation/Addendum I have discussed and was present for the essential components of the history, physical examination, diagnosis, and treatment plan with the resident. I agree with the patient's care as documented by the resident and amended herein by me. Kade Dang DO. Although this document has been carefully reviewed, there may still be some phonetic and other typographical errors. These errors are purely grammatical due to imperfections in the software program and should not be construed in any way to compromise the substance of the patient's medical care during this visit.
--- NOTE | 2025-06-28 10:26 | PC.SS ---
SS received call from [facility] who explained they are still able to accept pt. SS has sent updated inquiry to [facility], [facility], [facility], and [facility].
--- NOTE | 2025-06-28 13:14 | PC.SS ---
[employer] received phone call from [facility] staff, [place] ; confirming that LTAC will accept patient with patient still experiencing persistent fever.
[2025-06-28] MEDS: LORazepam 2 MG/ML VIAL IVP (13:23)
[2025-06-28] MEDS: HYDROmorphone INJ 2 MG/ML VIAL 1 MG IVP (14:08)
[2025-06-28] MEDS: GABAPENTIN 300 MG CAPSULE 600 MG GT ×2 (14:08→21:29)
--- NOTE | 2025-06-28 15:42 | PD.RESPRO ---
Documentation for date of: 06/28/25 Subjective Subjective Interval history: Patient seen at bedside in ICU as a tele patient. Patient is less hyperactive at the time of examination, received Dilaudid and Ativan about an hour ago due to agitation and trying to pull at the trach site. Primary team had added gabapentin. Could consider changing Keppra back to Depakote as Keppra can contribute to agitation, on review of records patient was switched on 06/20 to rule out Depakote as the cause for recurrent fevers. Exam Vital Signs Temp Pulse Resp BP Pulse Ox O2 Del Method O2 Flow Rate 98.9 F 134 H 32 H 132/80 H 100 Blow-by 6 06/28/25 04:00 06/28/25 12:00 06/28/25 12:00 06/28/25 12:00 06/28/25 12:00 06/27/25 04:15 06/28/25 06:37 FiO2 28 06/28/25 12:00 Narrative Exam Gen: Non-purposeful movements, noninteractive. HEENT: Trach in place, on blow-by. Mucous membrances moist. Abdomen: Soft, nondistended, No rebound tenderness, PEG tube in place MSK: No lower extremity edema, no redness, peripheral pulses presents, contracted hands, decreased tone Skin: No petechiae, lesions, erythematous Neuro: Alert and moving extremitie, pupils reactive, nonpurposeful dyskinetic movements with facial grimacing. Objective Labs 06/29/25 04:55 06/29/25 04:55 Labs: Laboratory Results - last 24 hr 06/28/25 08:12 WBC 8.7 D RBC 3.67 L Hgb 9.5 L Hct 31.5 L MCV 86 MCH 25.9 MCHC 30.2 L RDW Std Deviation 49.3 H Plt Count 412 D Neut % (Auto) 48 Lymph % (Auto) 31 [place] % (Auto) 12 Eos % (Auto) 8 Baso % (Auto) 2 Neut # (Auto) 4.2 Lymph # (Auto) 2.7 [place] # (Auto) 1.0 H Eos # (Auto) 0.7 H Baso # (Auto) 0.2 Immature Gran # (Auto) 0.03 H Absolute Nucleated RBC 0.00 Immature Gran % 0 Nucleated RBC % 0 Sodium 145 Potassium 3.9 D Chloride 109 H Carbon Dioxide 23.4 Anion Gap 13 BUN 28 H Creatinine 0.9 Estim Creat Clear Calc 84.7 eGFR > 60 BUN/Creatinine Ratio 31 H Glucose 85 Calculated Osmolality 293 Calcium 11.7 H Procalcitonin 0.55 H ABG Interpretation ABG results: 05/09/25 05/09/25 05/09/25 11:56 13:40 18:50 ABG pH 7.40 7.27 L D 7.28 L ABG pCO2 40 43 55 H D ABG pO2 131 H 53 L* D 70 L ABG HCO3 25 20 26 ABG O2 Saturation 99 H 81 L 92 ABG Base Excess 0 -7 L -2 VBG pH VBG pCO2 VBG pO2 VBG Base Excess 05/10/25 05/11/25 05/12/25 00:14 05:06 01:18 ABG pH 7.35 7.33 L 7.39 ABG pCO2 42 D 54 H D 48 ABG pO2 103 D 93 94 ABG HCO3 23 28 H 29 H ABG O2 Saturation 99 H 98 98 ABG Base Excess -3 2 3 VBG pH VBG pCO2 VBG pO2 VBG Base Excess 05/12/25 05/12/25 05/13/25 03:58 11:50 05:10 ABG pH 7.46 H 7.39 7.19 L* D ABG pCO2 41 48 60 H D ABG pO2 105 58 L* D 114 H D ABG HCO3 29 H 29 H 23 ABG O2 Saturation 99 H 90 L 98 ABG Base Excess 5 H 4 H -6 L VBG pH VBG pCO2 VBG pO2 VBG Base Excess 05/17/25 05/18/25 05/19/25 01:30 04:09 04:43 ABG pH 7.38 7.43 7.47 H ABG pCO2 46 44 43 ABG pO2 90 83 80 L ABG HCO3 27 H 29 H 31 H ABG O2 Saturation 98 97 97 ABG Base Excess 2 5 H 7 H VBG pH VBG pCO2 VBG pO2 VBG Base Excess 05/21/25 05/21/25 05/31/25 04:18 06:33 08:06 ABG pH 7.37 D 7.46 H ABG pCO2 50 H 38 D ABG pO2 40 L* D 121 H D ABG HCO3 29 H 27 H ABG O2 Saturation 66 L 100 H ABG Base Excess 3 3 VBG pH 7.55 VBG pCO2 31 L VBG pO2 144 H VBG Base Excess 5 H 06/05/25 06/05/25 06/06/25 13:37 23:46 05:20 ABG pH 7.47 H 7.45 ABG pCO2 35 38 ABG pO2 200 H 54 L* D ABG HCO3 25 26 ABG O2 Saturation 101 H 89 L ABG Base Excess 2 2 VBG pH 7.50 VBG pCO2 34 L VBG pO2 90 H VBG Base Excess 4 H 06/10/25 17:41 ABG pH ABG pCO2 ABG pO2 ABG HCO3 ABG O2 Saturation ABG Base Excess VBG pH 7.40 VBG pCO2 43 VBG pO2 43 VBG Base Excess 2 Quality Measures Quality Measures VTE prophylaxis Assessment & Plan Assessment Current Active Medications: Generic Name Dose Route Start Last Admin Trade Name Freq PRN Reason Stop Dose Admin Acetaminophen 325 mg 06/16/25 16:18 06/26/25 19:31 Acetaminophen Racquel 325 Mg/10 Ml Udc GT 07/09/25 16:12 325 mg Q4HR PRN Administration pain (1-3) or fever > 100.4 Amantadine HCl 100 mg 06/29/25 07:00 Amantadine Hcl 100 Mg Capsule PO 07/06/25 06:59 BID@0700,1400 KYA Clonazepam 0.5 mg 06/27/25 22:00 06/28/25 13:12 Clonazepam 0.5 Mg Tablet GT 07/02/25 21:59 0.5 mg TID KYA Administration Gabapentin 600 mg 06/28/25 14:00 06/28/25 14:08 Gabapentin 300 Mg Capsule GT 07/28/25 13:59 600 mg TID KYA Administration Ketorolac Tromethamine 30 mg 06/26/25 08:03 06/28/25 05:51 Ketorolac Inj 30 Mg/Ml Vial IVP 06/30/25 11:15 30 mg Q12HR PRN Administration PAIN 4-10 Levetiracetam 800 mg 06/20/25 21:00 06/28/25 09:08 Levetiracetam Liqd 500 Mg/5 Ml Udc GT 07/20/25 20:59 800 mg BID KYA Administration Pantoprazole Sodium 40 mg 06/22/25 11:15 06/28/25 09:07 Pantoprazole Inj 40 Mg Vial IVP 07/22/25 11:14 40 mg QDAY KYA Administration Quetiapine Fumarate 100 mg 06/21/25 21:00 06/27/25 22:25 Quetiapine Fumarate 100 Mg Tablet GT 07/21/25 20:59 100 mg HS KYA Administration Quetiapine Fumarate 50 mg 06/21/25 09:15 06/28/25 09:07 Quetiapine Fumarate 25 Mg Tablet GT 07/21/25 09:14 50 mg QAM KYA Administration Quetiapine Fumarate 50 mg 06/28/25 12:00 06/28/25 12:41 Quetiapine Fumarate 25 Mg Tablet PO 07/28/25 11:59 50 mg QDAY@1200 KYA Administration Plan 24-year-old male with cerebral palsy, asthma, seizure disorder, chronic mastoiditis, recurrent pneumonia, and chronic PEG tube dependence presented with fever and seizure, was admitted for sepsis workup, and later transferred to the ICU for intubation due to concerns about airway protection, eventually receiving tracheostomy. Patient has been downgraded from ICU to tele on 06/16/2025. Neurology is consulted as the patient has been having recurrent fevers, agitative episodes, and hyperactive movements throughout hospitalization. #Fevers of unknown origin #Dyskinesia #Hx of seizure disorder #Hx of cerebral palsy EEG 05/11 unremarkable. Repeat EEG 05/20 showed electrographic seizure activity. Continuous EEG 05/22-05/23: no seizure activity or status epilepticus. Repeat EEG 06/05 negative for seizure activity. MRI brain: no acute pathology. Was previously tried on [place] however LTAC cannot administer this med. - Etiology behind fevers remains unclear. DDx: medications, infectious, hypermetabolic syndrome - Switch Keppra 800 mg GT twice daily to Depakote 750 mg BID as Keppra side effect profile can contribute to agitation - Continue clonazepam 0.5 mg TID - Continue Seroquel 50 mg AM, 50 mg at noon, and 100 mg HS. - Currently on amantadine 100 mg BID - Patient is still being attempted to discharge to LTAC, accepted however family still deciding where #Chronic mastoiditis #Hx of ESBL UTI #Pseudomonas aeruginosa, sputum positive #Mucus plugs, right upper lung and left lower lung ? #Paraphimosis (resolved) #Balanitis (resolved) #Gingivial bleeding, oral trauma #Severe asthma #Maculopapular rash to the buttocks-Resolving - as per primary team Patient was discussed with the Neurology attending, Dr. Lang. Thank you for allowing us to participate in the care of this patient. Christy Cheema, PGY-3 Attending Provider Attestation/Addendum I personally have seen and examined the patient at the bedside and I agreed with the resident's findings, assessment. Will continue with the current management including Keppra for seizures clonazepam Seroquel and gabapentin for agitation. Continue to monitor him closely. The patient is waiting for placement at the LTAC
--- NOTE | 2025-06-28 18:21 | PC.NURSE ---
at approximately 1430 pts mother requested to cut pts hair. explained to mom that equipment was limited and could only offer a very short haircut. pts mother discussed with pts father over the phone and agreed to with the decision of haircut. mother at bedside assisting with hair care.
[2025-06-29] VITALS (9 sets, daily range): BP systolic 115–127; BP diastolic 70–81; PULSE 115–135; RESP 19–33; TEMP 36.4–37.7; O2SAT 94–100; BMI 26.0
[2025-06-29] MEDS: GABAPENTIN 300 MG CAPSULE 600 MG GT (05:44)
[2025-06-29 06:07] LABS: Basophils # (Auto) 0.1 Thou/mm3 (0.0-0.2); Basophils % (Auto) 1 % (0-2.5); Eosinophils # (Auto) 0.9 Thou/mm3 (0.0-0.5); Eosinophils % (Auto) 10 % (0-10); Hematocrit 31.8 % (41.0-53.0); Hemoglobin 9.5 g/dL (13.5-16.0); Immature Granulocytes Auto 0.05 Thou/mm3 (0.00-0.00); Lymphocytes # (Auto) 3.3 Thou/mm3 (1.0-4.8); Lymphocytes % (Auto) 35 % (10-50); Mean Corpuscular HGB Conc 29.9 g/dl (31.0-37.0); Mean Corpuscular Hemoglobin 25.5 pg (25.0-35.0); Mean Corpuscular Volume 85 fL (80-100); Monocytes # (Auto) 0.9 Thou/mm3 (0.0-0.8); Monocytes % (Auto) 10 % (0-12); Neutrophils # (Auto) 4.1 Thou/mm3 (1.8-7.7); Neutrophils % (Auto) 44 % (37-80); Nucleated Red Blood Cell # 0.00 Thou/mm3 (0.00-0.00); Nucleated Red Blood Cell % 0 /100 WBC (0); Platelet Count 431 Thou/mm3 (140-440); RDW Standard Deviation 48.9 fL (35.1-43.9); Red Blood Count 3.73 Miln/mm3 (4.50-5.90); White Blood Count 9.4 Thou/mm3 (3.8-10.6)
[2025-06-29 06:31] LABS: Alanine Aminotransferase 69 U/L (10-49); Albumin, Serum 5.1 gm/dL (3.5-5.0); Albumin/Globulin Ratio 1.6 (1.2-2.2); Alkaline Phosphatase 121 U/L (46-116); Anion Gap 14 (7-16); Aspartate Amino Transferase 43 U/L (0-34); BUN/Creatinine Ratio 35 Ratio (12-20); Bilirubin,Total 0.2 mg/dL (0.3-1.2); Blood Urea Nitrogen 28 mg/dL (9-23); Calcium 11.3 mg/dL (8.3-10.6); Calcium (Corrected) 11.3 mg/dL (8.5-10.1); Carbon Dioxide 25.0 mMol/L (20.0-31.0); Chloride 109 mMol/L (98-107); Creatinine (Component) 0.8 mg/dL (0.6-1.3); Estimated Creatinine Clearance 105.1 mL/min (>60); Globulin 3.2 gm/dL (2.3-3.5); Glucose 99 mg/dL (74-106); Magnesium 1.8 mg/dL (1.6-2.6); Osmolality,Calculated 299 (275-295); Phosphorous 5.2 mg/dL (2.4-5.1); Potassium 4.2 mMol/L (3.4-5.1); Sodium 148 mMol/L (136-145); Total Protein 8.3 gm/dL (5.7-8.2); eGFR > 60 See Note
[2025-06-29] MEDS: levETIRAcetam LIQD 500 MG/5 ML UDC 800 MG GT ×2 (08:12→21:17)
[2025-06-29] MEDS: LANSOPRAZOLE 30 MG TAB.RAP.DR GT (08:12)
--- NOTE | 2025-06-29 08:56 | PD.RESPRO ---
Documentation for date of: 06/29/25 Exam Vital Signs Temp Pulse Resp BP Pulse Ox O2 Del Method O2 Flow Rate 98.8 F 126 H 20 115/73 94 L Blow-by 6 06/29/25 04:00 06/29/25 06:15 06/29/25 06:15 06/29/25 04:00 06/29/25 06:15 06/27/25 04:15 06/29/25 06:15 FiO2 28 06/29/25 06:15 Objective Labs 06/29/25 04:55 06/29/25 04:55 Labs: Laboratory Results - last 24 hr 06/28/25 06/29/25 08:12 04:55 WBC 9.4 RBC 3.73 L Hgb 9.5 L Hct 31.8 L MCV 85 MCH 25.5 MCHC 29.9 L RDW Std Deviation 48.9 H Plt Count 431 Neut % (Auto) 44 Lymph % (Auto) 35 [place] % (Auto) 10 Eos % (Auto) 10 Baso % (Auto) 1 Neut # (Auto) 4.1 Lymph # (Auto) 3.3 [place] # (Auto) 0.9 H Eos # (Auto) 0.9 H Baso # (Auto) 0.1 Immature Gran # (Auto) 0.05 H Absolute Nucleated RBC 0.00 Immature Gran % 1 H Nucleated RBC % 0 Sodium 145 148 H Potassium 3.9 D 4.2 Chloride 109 H 109 H Carbon Dioxide 23.4 25.0 Anion Gap 13 14 BUN 28 H 28 H Creatinine 0.9 0.8 Estim Creat Clear Calc 84.7 105.1 eGFR > 60 > 60 BUN/Creatinine Ratio 31 H 35 H Glucose 85 99 Calculated Osmolality 293 299 H Calcium 11.7 H 11.3 H Corrected Calcium 11.3 H Phosphorus 5.2 H Magnesium 1.8 Total Bilirubin 0.2 L AST 43 H ALT 69 H Alkaline Phosphatase 121 H Total Protein 8.3 H Albumin 5.1 H Globulin 3.2 Albumin/Globulin Ratio 1.6 Procalcitonin 0.55 H ABG Interpretation ABG results: 05/09/25 05/09/25 05/09/25 11:56 13:40 18:50 ABG pH 7.40 7.27 L D 7.28 L ABG pCO2 40 43 55 H D ABG pO2 131 H 53 L* D 70 L ABG HCO3 25 20 26 ABG O2 Saturation 99 H 81 L 92 ABG Base Excess 0 -7 L -2 VBG pH VBG pCO2 VBG pO2 VBG Base Excess 05/10/25 05/11/25 05/12/25 00:14 05:06 01:18 ABG pH 7.35 7.33 L 7.39 ABG pCO2 42 D 54 H D 48 ABG pO2 103 D 93 94 ABG HCO3 23 28 H 29 H ABG O2 Saturation 99 H 98 98 ABG Base Excess -3 2 3 VBG pH VBG pCO2 VBG pO2 VBG Base Excess 05/12/25 05/12/25 05/13/25 03:58 11:50 05:10 ABG pH 7.46 H 7.39 7.19 L* D ABG pCO2 41 48 60 H D ABG pO2 105 58 L* D 114 H D ABG HCO3 29 H 29 H 23 ABG O2 Saturation 99 H 90 L 98 ABG Base Excess 5 H 4 H -6 L VBG pH VBG pCO2 VBG pO2 VBG Base Excess 05/17/25 05/18/25 05/19/25 01:30 04:09 04:43 ABG pH 7.38 7.43 7.47 H ABG pCO2 46 44 43 ABG pO2 90 83 80 L ABG HCO3 27 H 29 H 31 H ABG O2 Saturation 98 97 97 ABG Base Excess 2 5 H 7 H VBG pH VBG pCO2 VBG pO2 VBG Base Excess 05/21/25 05/21/25 05/31/25 04:18 06:33 08:06 ABG pH 7.37 D 7.46 H ABG pCO2 50 H 38 D ABG pO2 40 L* D 121 H D ABG HCO3 29 H 27 H ABG O2 Saturation 66 L 100 H ABG Base Excess 3 3 VBG pH 7.55 VBG pCO2 31 L VBG pO2 144 H VBG Base Excess 5 H 06/05/25 06/05/25 06/06/25 13:37 23:46 05:20 ABG pH 7.47 H 7.45 ABG pCO2 35 38 ABG pO2 200 H 54 L* D ABG HCO3 25 26 ABG O2 Saturation 101 H 89 L ABG Base Excess 2 2 VBG pH 7.50 VBG pCO2 34 L VBG pO2 90 H VBG Base Excess 4 H 06/10/25 17:41 ABG pH ABG pCO2 ABG pO2 ABG HCO3 ABG O2 Saturation ABG Base Excess VBG pH 7.40 VBG pCO2 43 VBG pO2 43 VBG Base Excess 2 Quality Measures Quality Measures VTE prophylaxis Assessment & Plan Assessment Current Active Medications: Generic Name Dose Route Start Last Admin Trade Name Freq PRN Reason Stop Dose Admin Acetaminophen 325 mg 06/16/25 16:18 06/26/25 19:31 Acetaminophen Racquel 325 Mg/10 Ml Udc GT 07/09/25 16:12 325 mg Q4HR PRN Administration pain (1-3) or fever > 100.4 Amantadine HCl 100 mg 06/29/25 07:00 06/29/25 08:12 Amantadine Hcl 100 Mg Capsule PO 07/06/25 06:59 100 mg BID@0700,1400 KYA Administration Clonazepam 0.5 mg 06/27/25 22:00 06/29/25 05:44 Clonazepam 0.5 Mg Tablet GT 07/02/25 21:59 0.5 mg TID KYA Administration Gabapentin 600 mg 06/28/25 14:00 06/29/25 05:44 Gabapentin 300 Mg Capsule GT 07/28/25 13:59 600 mg TID KYA Administration Magnesium Sulfate 2 gm in 50 mls @ 25 mls/hr 06/29/25 08:46 Magnesium Sulfate Ivpb IV 06/29/25 10:45 X1 ONE Ketorolac Tromethamine 30 mg 06/26/25 08:03 06/28/25 05:51 Ketorolac Inj 30 Mg/Ml Vial IVP 06/30/25 11:15 30 mg Q12HR PRN Administration PAIN 4-10 Lansoprazole 30 mg 06/29/25 09:00 06/29/25 08:12 Lansoprazole 30 Mg Tab.Rap. GT 07/29/25 08:59 30 mg QDAY KYA Administration Protocol Levetiracetam 800 mg 06/20/25 21:00 06/29/25 08:12 Levetiracetam Liqd 500 Mg/5 Ml Udc GT 07/20/25 20:59 800 mg BID KYA Administration Quetiapine Fumarate 100 mg 06/21/25 21:00 06/28/25 21:29 Quetiapine Fumarate 100 Mg Tablet GT 07/21/25 20:59 100 mg HS KYA Administration Quetiapine Fumarate 50 mg 06/21/25 09:15 06/29/25 08:12 Quetiapine Fumarate 25 Mg Tablet GT 07/21/25 09:14 50 mg QAM KYA Administration Quetiapine Fumarate 50 mg 06/29/25 12:00 Quetiapine Fumarate 25 Mg Tablet GT 07/29/25 11:59 QDAY@1200 KYA
[2025-06-29] MEDS: Magnesium Sulfate 2 GM Ivpb 2 GM/50 ML BAG IV (09:00)
[2025-06-29] MEDS: KETOROLAC INJ 30 MG/ML VIAL IVP (09:26)
--- NOTE | 2025-06-29 11:55 | ESDS_ITS ---
<Statement entered by Ru Larson MD - 06/29/25 16:02> I saw and examined patient personally and supervised PGY 1 resident, Dr. Dalal with formulating a management plan. I agree with the documentation as listed below. Plan of care discussed with Attending Dr. Laurence Larson MD PGY 2 Disclaimer: This note was dictated by speech recognition. Minor errors in children's institution attendant may be present due to voice recognition software. Planned Discharge Date 06/29/25 DS: Providers Provider Date of admission: 05/08/25 10:02 Primary care physician: Tavares Cole MD Admitting Provider: Natasha Moreira MD Attending Provider on Admission: Cortez Dang DO Consults: 05/08/25 11:18 Consult to Neurology / Tele-Neurology Stat Comment: Consulting Provider: Darryl Lang 05/08/25 14:57 Referral Wound Care Routine Comment: 05/09/25 08:08 Consult to Urology Routine Comment: Ph Consulting Provider: Rei Vargas 05/09/25 13:46 Referral Nutritional Services Routine Comment: Gtube dependant 05/09/25 14:04 Consult to Lay Out Former Routine Comment: Hypoxia Consulting Provider: Joon Armendariz I 05/09/25 16:37 Referral Registered Dietitian Routine Comment: 05/24/25 14:37 Consult to General Surgery Routine Comment: Tracheostomy Consulting Provider: Marcello Jin 06/01/25 13:20 Consult to Infectious Diseases Urgent Comment: MICAFUNGIN RESTART Consulting Provider: John Rubio 06/17/25 09:41 Consult to Lay Out Former Routine Comment: Consulting Provider: Katherine Siu 06/21/25 12:53 Referral - Distribution Engineer Routine Service Needed for Transfer: Neurology Addl Comments:: higher level of care, lithia Attending Provider on DC: Cortez Dang DO Discharging Provider: Cortez Dang DO DS: Diagnosis Problem List Completed Was Problem List Reviewed/Reconciled?: Yes Hospital Course Hospital Course Hospital course: Hospital Course: Patient is a 25-year-old male with past medical history of cerebral palsy, asthma, seizure disorder, chronic mastoiditis, recurrent pneumonia, and PEG tube dependence who presented initially with fever and seizures and was admitted for sepsis workup on 05/08/2025. Patient was transferred to ICU on 05/09/2025 for increased agitation tachypnea and secretions with recurrent fevers and was intubated. During his first ICU stay, patient required intubation and extubation multiple times; eventually on 05/26/2025, a tracheostomy tube was placed due to respiratory failure. In addition he had multiple episodes of fever, agitation, and thrashing requiring antipyretics and sedation. Sputum culture grew thurman resistant Pseudomonas. Patient was downgraded to telemetry on 05/31/2025. Patient was readmitted to ICU on 06/05/2025 secondary to increased respiratory rate, diaphoresis, and significant discomfort and agitation. Patient was downgraded on 06/12 due to stable condition on pressure support with improvement of agitation and lack of fever over 24 hours. Patient was redowngraded to telemetry on 06/20/2025. Patient denied for transfer at [facility], [facility], [facility] [place] other tertiary [place] as per them there is no different workup/services that can be offered at tertiary care. Patient was subsequently accepted to multiple LTAC's, but continued to have agitation tachycardia and fevers until 06/28/2025. Patient was subsequently placed on gabapentin, and did not have any calls for him over that night. Family was amicable to placement in LTAC and patient was prepared for discharge on 06/29/2025. As of 06/29/25, patient is stable for discharge to LTAC. Antibiotics given during admission and major imaging findings are below. Antibiotics given during this admission: IV Zosyn 06/05-06/18 for 14-day course coverage of Pseudomonas IV Zosyn 3.375g x1 (at 05/08) IV Ceftriaxone 1g x1 (at 05/08) IV Acyclovir 640mg q8hr (05/08-05/11) IV Ceftriaxone 2g q12hr (05/08-05/11) IV Vancomycin qd (05/08-05/11) since MRSA screen is negative IV Meropenem 1000mg q8hr (05/12-05/22, 05/24-05/25) IV Doxycycline (05/16-05/18) IV Micafungin 100mg qd (05/28-05/30, 06/01-06/03) IV fluconazole 06/05-06/07 Major imaging findings: 05/08/25 CXR, CT C/A/P, CT orbit, CT head - No aspiration pneumonia, No gross abnormality in the abdomen or pelvis, severe bilateral chronic mastoiditis, bilateral otitis externa, bilateral otitis media, bilateral cholesteatomas in the attics, Negative for acute hemorrhage, mass effect or midline shift 05/13/25 CXR- extensive bilateral pneumonia 05/16/25 CT C/A/P, CXR, CT head, Gallbladder US, Venous Doppler Study- Extensive bilateral pneumonia, Cystitis pattern, Cholelithiasis, Negative for acute hemorrhage, mass effect or midline shift, Positive for acute nonocclusive thrombus in the left brachial vein 05/23/25 MRI brain- Negative for acute hemorrhage mass effect or midline shift, No acute infarct, No MR findings diagnostic for demyelinating disease 06/06/25 Echo, bone scan, X rays tibia/fibula, knee- EF 55-60%, bone scan positive, no osseus metastaic disease Discharge Instructions: ? Continue medication as listed below. ? You have psychogenic fevers, you will intermittently have high temperatures. ? Follow-up with ENT as outpatient for your chronic bilateral ear infections. ? Continue neurology follow-up outpatient. - Follow up with your primary care physician within 1 week of discharge. If you do not have a primary care physician, please follow up with the [facility] Residents clinic ([phone]) ? If you experience any new, worsening or persistent symptoms either call your primary doctor, or dial 911 or present to the emergency department. Problem List: #Hospital acquired delirium #Agitation #Psychogenic fever #? Opioid withdrawal #Tardive dyskinesia #Sepsis #Bilateral chronic mastoiditis #Sinusitis #Bilateral otitis media #Bilateral otitis externa #Brittney parapsilosis #Community Acquired Pneumonia #UTI, E.coli, ESBL #Pseudomonas aeruginosa, sputum positive #Mucus plugs, right upper lung and left lower lung ? #Phimosis s/p dorsal slit procedure 06/08/2025 #Paraphimosis (resolved) #Balanitis (resolved) #Seizure disorder by history #Cerebral palsy by history #Sinus tachycardia #Elevated alkaline phosphatase, improving #Low PTH #Abnormal nuclear medicine bone scan #Tongue Laceration, traumatic #Gingivial Bleeding, Oral Trauma #Bronchospasm #History of asthma #Failed extubation 05/12 #Acute hypoxic respiratory failure s/p tracheostomy #Ventilator dependent #Chronic PEG tube dependence #Hyperphosphatemia #Normocytic Anemia #Leukocytosis-Resolving #Maculopapular rash to the buttocks-Resolving #Acute urinary retention-Resolved #Hypoalbuminemia-Resolved #Hyperkalemia-Resolved #Acute kidney injury-Resolved #Anion Gap Metabolic Acidosis-Resolved #Acute nonocclusive thrombus in the left brachial vein-Resolved Status at Discharge Functional status at discharge: bed bound Overall status at discharge: patient is progressing back to baseline Time Spent with Patient Time attestation: Total time spent providing and/or coordinating discharge services: Time spent: Greater than 30 minutes Exam Vital Signs Temp Pulse Resp BP Pulse Ox O2 Del Method O2 Flow Rate 97.5 F 121 H 26 H 118/70 96 Blow-by 6 06/29/25 08:01 06/29/25 08:01 06/29/25 08:01 06/29/25 08:01 06/29/25 08:01 06/27/25 04:15 06/29/25 06:15 FiO2 28 06/29/25 06:15 Narrative Exam General: A/O x0, calmer, tachycardic, on blow by Eyes: PERRL, EOMI. Anicteric, vision grossly intact. Ears: No ear pain, no ear discharge, Hearing grossly intact. Nose: No nasal discharge. Mouth/Throat: Moist mucous membranes, no redness, no lesions. Neck: Neck supple, non-tender, no cervical lymphadenopathy. Lungs: Coarse breath sounds bilaterally, No accessory muscle use. Cardio: Normal S1/S2, very tachycardic, no murmurs, no JVD or carotid bruits. Abdomen: Soft, non-tender, no palpable masses, peristalsis present, no guarding or rebound, PEG tube in place Extremities: Symmetrical, no significant deformities, no peripheral edema , non-tender, peripheral pulses present. Skin: No rashes, no lesions, warm to touch. Neuro: No focal neurological deficits. 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 Continue medication as listed below. - START free water flushes 250cc every 6 hours through PEG tube due to dehydration ? You have psychogenic fevers, you will intermittently have high temperatures. ? Follow-up with ENT as outpatient for your chronic bilateral ear infections as [facility] does not have ENT services ? Continue neurology follow-up outpatient. - Follow up with your primary care physician within 1 week of discharge. If you do not have a primary care physician, please follow up with the [facility] Res[facility] clinic ([phone]) ? If you experience any new, worsening or persistent symptoms either call your primary doctor, or dial 911 or present to the emergency department. Prescriptions/Referrals Prescriptions/Med Rec: New quetiapine 25 mg Tablet 50 mg G-tube QAM 30 Days Qty: 60 1RF quetiapine 25 mg Tablet 50 mg PO QDAY@1200 30 Days Qty: 60 0RF clonazepam 0.5 mg Tablet 0.5 mg G-tube TID 30 Days Qty: 90 2RF quetiapine 100 mg Tablet 100 mg G-tube HS 30 Days Qty: 30 1RF amantadine HCl 100 mg Capsule 100 mg PO BID@0700,1400 30 Days Qty: 60 1RF gabapentin 300 mg Capsule 900 mg G-tube TID 30 Days Qty: 270 0RF lansoprazole 30 mg Tablet,Disintegrat, Delay Rel 30 mg G-tube QDAY 30 Days Qty: 30 0RF levetiracetam 500 mg/5 mL (5 mL) Solution 800 mg G-tube BID 30 Days Qty: 480 4RF Continued ondansetron HCl 4 mg/5 mL solution 4 mg PO Q8H PRN (Reason: nausea and vomiting) Qty: 150 0RF albuterol sulfate 90 mcg/actuation HFA aerosol inhaler 2 puff INHALATION Q6H Patient Comments: TAKE 2 PUFFS WHEN NEEDED INHALATION EVERY 6 HRS 30 DAYS Discontinued omeprazole 20 mg capsule,delayed release(DR/EC) 40 mg feeding tube DAILY Patient Comments: TOME 1 CAPSULA POR VIA ORAL 30 MINUTOS BEFORE MORNING MEAL valproic acid (as sodium salt) 250 mg/5 mL Solution 250 mg PO TID Qty: 473 0RF clonazepam 0.5 mg tablet 0.5 mg PO BID PRN (Reason: agitation ) Qty: 60 0RF quetiapine 50 mg tablet 50 mg feeding tube QAM quetiapine 100 mg tablet 100 mg feeding tube HS Patient Comments: TAKE 1 TABLET BY MOUTH DAILY AT NIGHT Rx Instructions: TAKE 1 TABLET BY MOUTH DAILY AT NIGHT montelukast 10 mg tablet 10 mg feeding tube DAILY Patient Comments: TOME ARBEN TABLETA TODOS LOS TOPETE FOR 90 DAYS levetiracetam 100 mg/mL solution 800 mg feeding tube Q12H Patient Comments: GIVE NICKY 8 MLS (800 MG TOTAL) BY PER G TUBE ROUTE 2 TIMES A DAY. No Action ofloxacin 0.3 % Dropperette 5 drp OTIC (EAR) BID Rx Instructions: 5 drops into the let ear two time a day for 1o days Referrals: Tavares Cole MD [Primary Care Provider, Family Practice] Patient/Caregiver Discharge Instructions Print Language: Irish Stand Alone Forms: Clari Award Info., Patient Portal Info Letter Discharge Order Discharge Orders: Discharge (Routine); Ordered 07/01/25 Ordered By: Ru Larson Quality Discharge Quality Measures none MD Attestestation MD Attestation Patient not discharged today as expected, Likely discharge on 06/30 or 07/01
--- NOTE | 2025-06-29 12:40 | PC.SS ---
MEDICAL ASSISTANT SECRETARY met with patient's mother, Aruna Baltazar; at patient's bedside. MEDICAL ASSISTANT SECRETARY utilized manager dental to assist with discussion. MEDICAL ASSISTANT SECRETARY informed patient's mother that medical team has assessed that the patient is medically cleared for discharge. MEDICAL ASSISTANT SECRETARY informed patient's mother of 2 accepting LTAC facilities: [facility] and [facility] Patient's mother requested to discuss options with spouse. Patient's parents to return at approximately 02:30 pm to provide response. Parents requesting to speak to attending or resident upon return. MEDICAL ASSISTANT SECRETARY will have manager dental available to assist with discussion.
[2025-06-29] MEDS: GABAPENTIN 300 MG CAPSULE 900 MG GT ×2 (14:05→21:18)
--- NOTE | 2025-06-29 14:53 | PD.RESPRO ---
Documentation for date of: 06/29/25 Subjective Subjective Interval history: Patient seen at bedside, appeared hyperactive however was not overly agitated or trying to pull out the trach. Heart rate is better today and remains in the 120s. Primary team is uptitrating gabapentin from 600 to 900 mg TID. Upon review of the chart patient apparently was on both Depakote and Keppra prior to hospitalization and Depakote was removed as a suspect to recurrent seizures. Patient has not has seizure episodes after removal of Depakote. Patient may continue on Keppra alone for discharge. Exam Vital Signs Temp Pulse Resp BP Pulse Ox O2 Del Method O2 Flow Rate 98.3 F 135 H 33 H 123/80 99 Blow-by 8 06/29/25 12:00 06/29/25 12:00 06/29/25 12:00 06/29/25 12:00 06/29/25 12:00 06/29/25 12:00 06/29/25 12:00 FiO2 40 06/29/25 12:00 Narrative Exam Gen: Continuous non-purposeful movements, noninteractive. HEENT: Opens eyes, does not make meaningful eye contact. Trach in place, on blow-by. Mucous membrances moist. Abdomen: Soft, nondistended, No rebound tenderness, PEG tube in place MSK: No lower extremity edema, no redness, peripheral pulses presents, contracted hands, decreased tone Skin: No petechiae, lesions, erythematous Neuro: Alert and moving extremities, pupils reactive, nonpurposeful dyskinetic movements with facial grimacing. Objective Labs 06/29/25 04:55 06/29/25 04:55 Labs: Laboratory Results - last 24 hr 06/29/25 04:55 WBC 9.4 RBC 3.73 L Hgb 9.5 L Hct 31.8 L MCV 85 MCH 25.5 MCHC 29.9 L RDW Std Deviation 48.9 H Plt Count 431 Neut % (Auto) 44 Lymph % (Auto) 35 [place] % (Auto) 10 Eos % (Auto) 10 Baso % (Auto) 1 Neut # (Auto) 4.1 Lymph # (Auto) 3.3 [place] # (Auto) 0.9 H Eos # (Auto) 0.9 H Baso # (Auto) 0.1 Immature Gran # (Auto) 0.05 H Absolute Nucleated RBC 0.00 Immature Gran % 1 H Nucleated RBC % 0 Sodium 148 H Potassium 4.2 Chloride 109 H Carbon Dioxide 25.0 Anion Gap 14 BUN 28 H Creatinine 0.8 Estim Creat Clear Calc 105.1 eGFR > 60 BUN/Creatinine Ratio 35 H Glucose 99 Calculated Osmolality 299 H Calcium 11.3 H Corrected Calcium 11.3 H Phosphorus 5.2 H Magnesium 1.8 Total Bilirubin 0.2 L AST 43 H ALT 69 H Alkaline Phosphatase 121 H Total Protein 8.3 H Albumin 5.1 H Globulin 3.2 Albumin/Globulin Ratio 1.6 ABG Interpretation ABG results: 05/09/25 05/09/25 05/09/25 11:56 13:40 18:50 ABG pH 7.40 7.27 L D 7.28 L ABG pCO2 40 43 55 H D ABG pO2 131 H 53 L* D 70 L ABG HCO3 25 20 26 ABG O2 Saturation 99 H 81 L 92 ABG Base Excess 0 -7 L -2 VBG pH VBG pCO2 VBG pO2 VBG Base Excess 05/10/25 05/11/25 05/12/25 00:14 05:06 01:18 ABG pH 7.35 7.33 L 7.39 ABG pCO2 42 D 54 H D 48 ABG pO2 103 D 93 94 ABG HCO3 23 28 H 29 H ABG O2 Saturation 99 H 98 98 ABG Base Excess -3 2 3 VBG pH VBG pCO2 VBG pO2 VBG Base Excess 05/12/25 05/12/25 05/13/25 03:58 11:50 05:10 ABG pH 7.46 H 7.39 7.19 L* D ABG pCO2 41 48 60 H D ABG pO2 105 58 L* D 114 H D ABG HCO3 29 H 29 H 23 ABG O2 Saturation 99 H 90 L 98 ABG Base Excess 5 H 4 H -6 L VBG pH VBG pCO2 VBG pO2 VBG Base Excess 05/17/25 05/18/25 05/19/25 01:30 04:09 04:43 ABG pH 7.38 7.43 7.47 H ABG pCO2 46 44 43 ABG pO2 90 83 80 L ABG HCO3 27 H 29 H 31 H ABG O2 Saturation 98 97 97 ABG Base Excess 2 5 H 7 H VBG pH VBG pCO2 VBG pO2 VBG Base Excess 1005/21/25 05/31/25 04:18 06:33 08:06 ABG pH 7.37 D 7.46 H ABG pCO2 50 H 38 D ABG pO2 40 L* D 121 H D ABG HCO3 29 H 27 H ABG O2 Saturation 66 L 100 H ABG Base Excess 3 3 VBG pH 7.55 VBG pCO2 31 L VBG pO2 144 H VBG Base Excess 5 H 06/05/25 06/05/25 06/06/25 13:37 23:46 05:20 ABG pH 7.47 H 7.45 ABG pCO2 35 38 ABG pO2 200 H 54 L* D ABG HCO3 25 26 ABG O2 Saturation 101 H 89 L ABG Base Excess 2 2 VBG pH 7.50 VBG pCO2 34 L VBG pO2 90 H VBG Base Excess 4 H 06/10/25 17:41 ABG pH ABG pCO2 ABG pO2 ABG HCO3 ABG O2 Saturation ABG Base Excess VBG pH 7.40 VBG pCO2 43 VBG pO2 43 VBG Base Excess 2 Quality Measures Quality Measures VTE prophylaxis Assessment & Plan Assessment Current Active Medications: Generic Name Dose Route Start Last Admin Trade Name Freq PRN Reason Stop Dose Admin Acetaminophen 325 mg 06/16/25 16:18 06/26/25 19:31 Acetaminophen Racquel 325 Mg/10 Ml Udc GT 07/09/25 16:12 325 mg Q4HR PRN Administration pain (1-3) or fever > 100.4 Amantadine HCl 100 mg 06/29/25 07:00 06/29/25 14:04 Amantadine Hcl 100 Mg Capsule PO 07/06/25 06:59 100 mg BID@0700,1400 KYA Administration Clonazepam 0.5 mg 06/27/25 22:00 06/29/25 14:05 Clonazepam 0.5 Mg Tablet GT 07/02/25 21:59 0.5 mg TID KYA Administration Gabapentin 900 mg 06/29/25 14:00 06/29/25 14:05 Gabapentin 300 Mg Capsule GT 07/29/25 13:59 900 mg TID KYA Administration Ketorolac Tromethamine 30 mg 06/26/25 08:03 06/29/25 09:26 Ketorolac Inj 30 Mg/Ml Vial IVP 06/30/25 11:15 30 mg Q12HR PRN Administration PAIN 4-10 Lansoprazole 30 mg 06/29/25 09:00 06/29/25 08:12 Lansoprazole 30 Mg Tab. GT 07/29/25 08:59 30 mg QDAY KYA Administration Protocol Levetiracetam 800 mg 06/20/25 21:00 06/29/25 08:12 Levetiracetam Liqd 500 Mg/5 Ml Udc GT 07/20/25 20:59 800 mg BID KYA Administration Quetiapine Fumarate 100 mg 06/21/25 21:00 06/28/25 21:29 Quetiapine Fumarate 100 Mg Tablet GT 07/21/25 20:59 100 mg HS KYA Administration Quetiapine Fumarate 50 mg 06/21/25 09:15 06/29/25 08:12 Quetiapine Fumarate 25 Mg Tablet GT 07/21/25 09:14 50 mg QAM KYA Administration Quetiapine Fumarate 50 mg 06/29/25 12:00 06/29/25 11:21 Quetiapine Fumarate 25 Mg Tablet GT 07/29/25 11:59 50 mg QDAY@1200 KYA Administration Plan 24-year-old male with cerebral palsy, asthma, seizure disorder, chronic mastoiditis, recurrent pneumonia, and chronic PEG tube dependence presented with fever and seizure, was admitted for sepsis workup, and later transferred to the ICU for intubation due to concerns about airway protection, eventually receiving tracheostomy. Patient has been downgraded from ICU to tele on 06/16/2025. Neurology is consulted as the patient has been having recurrent fevers, agitative episodes, and hyperactive movements throughout hospitalization. #Fevers of unknown origin #Dyskinesia #Hx of seizure disorder #Hx of cerebral palsy EEG 05/11 unremarkable. Repeat EEG 05/20 showed electrographic seizure activity. Continuous EEG 05/22-05/23: no seizure activity or status epilepticus. Repeat EEG 06/05 negative for seizure activity. MRI brain: no acute pathology. Was previously tried on [place] however LTAC cannot administer this med. - Etiology behind fevers remains unclear. DDx: medications, infectious, hypermetabolic syndrome - May keep the patient on Keppra 800 mg GT twice daily since it is a medication patient was on prior to hospitalization according to review of the chart - Continue clonazepam 0.5 mg TID - Continue Seroquel 50 mg AM, 50 mg at noon, and 100 mg HS. - Currently on amantadine 100 mg BID - LTAC discharge pending #Chronic mastoiditis #Hx of ESBL UTI #Pseudomonas aeruginosa, sputum positive #Mucus plugs, right upper lung and left lower lung ? #Paraphimosis (resolved) #Balanitis (resolved) #Gingivial bleeding, oral trauma #Severe asthma #Maculopapular rash to the buttocks-Resolving - as per primary team Patient was discussed with the Neurology attending, Dr. Lang. Thank you for allowing us to participate in the care of this patient. Christy Cheema, PGY-3 Attending Provider Attestation/Addendum I independently reviewed the patient's chart and agreed with the resident's findings, assessment and plan of care. Patient remained stable on current management including gabapentin, Keppra, Seroquel, clonazepam. Waiting for placement at LTAC
--- NOTE | 2025-06-29 15:21 | PC.SS ---
Family meeting conducted with patient's parents. Present were Dr. Dang, Dr. Foley, bedside nurse and undersigned. Online Media Buyer present to assist with discussion. Medical team provided overview on patient's condition and progress. Patient has not been in possession of a fever for the last 2 days, heart rate has been stable and patient on blow by 6L. Medical team informed parent's that purpose of LTAC placement to continue to wean down patient's oxygen requirement. Parent's informed FOOTBALL COACH that [facility] [place] location is preferred facility for placement. marine services technician will notify LTAC of placement choice. Updated clinicals to be provided. Ambulance transport to be arranged will confirm will RT rider will be needed since patient is on blow-by 6L.
[2025-06-30] VITALS (9 sets, daily range): BP systolic 112–138; BP diastolic 72–94; PULSE 12–144; RESP 19–37; TEMP 36.7–37.9; O2SAT 94–991; BMI 25.9
[2025-06-30] MEDS: GABAPENTIN 300 MG CAPSULE 900 MG GT ×3 (06:25→21:16)
[2025-06-30] MEDS: LANSOPRAZOLE 30 MG TAB.RAP.DR GT (08:20)
[2025-06-30] MEDS: levETIRAcetam LIQD 500 MG/5 ML UDC 800 MG GT ×2 (08:22→21:15)
--- NOTE | 2025-06-30 08:40 | PC.SS ---
SS spoke to Grant from [facility] who is requesting updated inquiry. SS has sent faxed updated inquiry and also sent through [facility]. Per Grant from [facility], he will follow up if bed is available today. Grant is aware pt ready for dc today.
--- NOTE | 2025-06-30 08:44 | PC.SS ---
Transport request submitted on [facility]. Awaiting response. Patient will require transport to [facility].
--- NOTE | 2025-06-30 08:45 | PC.SS ---
INGOT CASTER notified that RT rider will be available [facility] Transport schedule pending.
--- NOTE | 2025-06-30 08:56 | PC.SS ---
Ambulance transport scheduled for 12:00 pm.
--- NOTE | 2025-06-30 09:00 | ESPR_ITS ---
<Statement entered by Ru Larson MD - 07/01/25 15:48> I saw and examined patient personally and supervised PGY 1 resident, Dr. Cobb with formulating a management plan. I agree with the documentation as listed below. Plan of care discussed with Attending Dr. Laurence Larson MD PGY 2 Disclaimer: This note was dictated by speech recognition. Minor errors in vice president safety may be present due to voice recognition software. Documentation for date of: 06/30/25 Subjective Subjective Interval history: Overnight, patient episode of fever 101 ?F was given Tylenol with resolution. Patient seen examined at bedside in telemetry. Patient is calm however family at bedside reports erythematous L red ear with some swelling likely due to patient noticed to be pulling at bilateral ears. VSS. Continue current management. Pending RT availability for transport to [facility]. Exam Vital Signs Temp Pulse Resp BP Pulse Ox O2 Del Method O2 Flow Rate 100.7 F H 57 L 33 H 110/67 92 L Blow-by 2 07/01/25 08:52 07/01/25 08:00 07/01/25 08:00 07/01/25 08:00 07/01/25 08:00 07/01/25 08:00 07/01/25 04:00 FiO2 28 07/01/25 04:00 Narrative Exam General: Alert, unable to assess orientation as baseline nonverbal, calmer, tachycardic, on blow by Eyes: PERRL, EOMI. Anicteric, vision grossly intact. Ears: no ear discharge, Hearing grossly intact. L ear with some swelling (improved erythema since yesterday) Nose: No nasal discharge. Mouth/Throat: Moist mucous membranes, no redness, no lesions. Neck: Neck supple, non-tender Lungs: Coarse breath sounds bilaterally, No accessory muscle use, trach in place Cardio: Normal S1/S2, tachycardic, no murmurs appreciated, no JVD or carotid bruits. Abdomen: Soft, non-tender, no palpable masses, peristalsis present, no guarding or rebound, PEG tube in place Extremities: Symmetrical, no significant deformities, no peripheral edema , non-tender, peripheral pulses present. Skin: No rashes, no lesions, warm to touch. Neuro: No focal neurological deficits. Psych: Calm, nonpurposeful movements with some grimacing Objective Labs 07/01/25 06:36 07/01/25 06:36 Labs: Laboratory Results - last 24 hr 07/01/25 06:36 WBC 17.3 H D RBC 3.92 L Hgb 10.2 L Hct 33.1 L MCV 84 MCH 26.0 MCHC 30.8 L RDW Std Deviation 47.6 H Plt Count 393 Neut % (Auto) 69 Lymph % (Auto) 21 Phelps % (Auto) 6 Eos % (Auto) 4 Baso % (Auto) 1 Neut # (Auto) 11.9 H Lymph # (Auto) 3.7 Phelps # (Auto) 1.0 H Eos # (Auto) 0.6 H Baso # (Auto) 0.1 Immature Gran # (Auto) 0.06 H Absolute Nucleated RBC 0.00 Immature Gran % 0 Nucleated RBC % 0 Sodium 145 Potassium 3.6 Chloride 104 Carbon Dioxide 26.0 Anion Gap 15 BUN 25 H Creatinine 0.8 Estim Creat Clear Calc 95.2 eGFR > 60 BUN/Creatinine Ratio 31 H Glucose 107 H Calculated Osmolality 293 Calcium 10.7 H Corrected Calcium 10.7 H Phosphorus 5.3 H Magnesium 1.7 Total Bilirubin 0.2 L AST 31 ALT 63 H Alkaline Phosphatase 140 H Total Protein 8.5 H Albumin 5.3 H Globulin 3.2 Albumin/Globulin Ratio 1.7 ABG Interpretation ABG results: 05/09/25 05/09/25 05/09/25 11:56 13:40 18:50 ABG pH 7.40 7.27 L D 7.28 L ABG pCO2 40 43 55 H D ABG pO2 131 H 53 L* D 70 L ABG HCO3 25 20 26 ABG O2 Saturation 99 H 81 L 92 ABG Base Excess 0 -7 L -2 VBG pH VBG pCO2 VBG pO2 VBG Base Excess 05/10/25 05/11/25 05/12/25 00:14 05:06 01:18 ABG pH 7.35 7.33 L 7.39 ABG pCO2 42 D 54 H D 48 ABG pO2 103 D 93 94 ABG HCO3 23 28 H 29 H ABG O2 Saturation 99 H 98 98 ABG Base Excess -3 2 3 VBG pH VBG pCO2 VBG pO2 VBG Base Excess 05/12/25 05/12/25 05/13/25 03:58 11:50 05:10 ABG pH 7.46 H 7.39 7.19 L* D ABG pCO2 41 48 60 H D ABG pO2 105 58 L* D 114 H D ABG HCO3 29 H 29 H 23 ABG O2 Saturation 99 H 90 L 98 ABG Base Excess 5 H 4 H -6 L VBG pH VBG pCO2 VBG pO2 VBG Base Excess 05/17/25 05/18/25 05/19/25 01:30 04:09 04:43 ABG pH 7.38 7.43 7.47 H ABG pCO2 46 44 43 ABG pO2 90 83 80 L ABG HCO3 27 H 29 H 31 H ABG O2 Saturation 98 97 97 ABG Base Excess 2 5 H 7 H VBG pH VBG pCO2 VBG pO2 VBG Base Excess 05/21/25 05/21/25 05/31/25 04:18 06:33 08:06 ABG pH 7.37 D 7.46 H ABG pCO2 50 H 38 D ABG pO2 40 L* D 121 H D ABG HCO3 29 H 27 H ABG O2 Saturation 66 L 100 H ABG Base Excess 3 3 VBG pH 7.55 VBG pCO2 31 L VBG pO2 144 H VBG Base Excess 5 H 06/05/25 06/05/25 06/06/25 13:37 23:46 05:20 ABG pH 7.47 H 7.45 ABG pCO2 35 38 ABG pO2 200 H 54 L* D ABG HCO3 25 26 ABG O2 Saturation 101 H 89 L ABG Base Excess 2 2 VBG pH 7.50 VBG pCO2 34 L VBG pO2 90 H VBG Base Excess 4 H 06/10/25 17:41 ABG pH ABG pCO2 ABG pO2 ABG HCO3 ABG O2 Saturation ABG Base Excess VBG pH 7.40 VBG pCO2 43 VBG pO2 43 VBG Base Excess 2 Quality Measures Quality Measures VTE prophylaxis Assessment & Plan Assessment Current Active Medications: Generic Name Dose Route Start Last Admin Trade Name Freq PRN Reason Stop Dose Admin Acetaminophen 325 mg 06/16/25 16:18 07/01/25 07:52 Acetaminophen Racquel 325 Mg/10 Ml Udc GT 07/09/25 16:12 325 mg Q4HR PRN Administration pain (1-3) or fever > 100.4 Amantadine HCl 100 mg 06/29/25 07:00 07/01/25 13:38 Amantadine Hcl 100 Mg Capsule PO 07/06/25 06:59 100 mg BID@0700,1400 KYA Administration Clonazepam 0.5 mg 06/27/25 22:00 07/01/25 13:39 Clonazepam 0.5 Mg Tablet GT 07/02/25 21:59 0.5 mg TID KYA Administration Gabapentin 900 mg 06/29/25 14:00 07/01/25 13:39 Gabapentin 300 Mg Capsule GT 07/29/25 13:59 900 mg TID KYA Administration Lansoprazole 30 mg 06/29/25 09:00 07/01/25 08:11 Lansoprazole 30 Mg Tab.Rap. GT 07/29/25 08:59 30 mg QDAY KYA Administration Protocol Levetiracetam 800 mg 06/20/25 21:00 07/01/25 08:42 Levetiracetam Liqd 500 Mg/5 Ml Udc GT 07/20/25 20:59 800 mg BID KYA Administration Quetiapine Fumarate 100 mg 06/21/25 21:00 06/30/25 21:18 Quetiapine Fumarate 100 Mg Tablet GT 07/21/25 20:59 100 mg HS KYA Administration Quetiapine Fumarate 50 mg 06/21/25 09:15 07/01/25 08:11 Quetiapine Fumarate 25 Mg Tablet GT 07/21/25 09:14 50 mg QAM KYA Administration Quetiapine Fumarate 50 mg 06/29/25 12:00 07/01/25 12:24 Quetiapine Fumarate 25 Mg Tablet GT 07/29/25 11:59 50 mg QDAY@1200 KYA Administration Plan 25-year-old male with cerebral palsy, asthma, seizure disorder, chronic mastoiditis, recurrent pneumonia, and chronic PEG tube dependence presented with fever and seizure, was admitted for sepsis workup, and later transferred to the ICU for intubation due to concerns about airway protection. Patient downgraded from ICU to tele on 05/31/2025; however, re-upgraded to ICU on 06/05 due to tachycardia in 160s, tachypnea, persistent fever, and ventilator asynchrony. #Hospital acquired delirium #Agitation Differential diagnosis: ICU acquired delirium, opiate withdrawal, delirium Diagnostic workup: - Patient was weaned off of sedation and was downgraded to telemetry, however as sedatives were down titrated and telemetry patient had episode of severe agitation and ventilator asynchrony and was upgraded to ICU for further intervention. - EEG 05/11 unremarkable. Repeat EEG 05/20 showed electrographic seizure activity. Continuous EEG 05/22-05/23: no seizure activity or status epilepticus. Repeat EEG 06/05 negative for seizure activity. - MRI brain 05/23: showed chronic infections, no acute pathology. - Cisatracurium gtt discontinued - Versed gtt discontinued - Phenobarbital 129.6 discontinued - Oxycodone 10 mg discontinued Plan: -Amantadine 100mg po bid -Clonazepam 0.5 mg GT TID -Hold orders for respiratory rate <14, heart rate <70, or BP <100/60 for above meds - Gabapentin 600 TID #Psychogenic fever #? Opioid withdrawal Patient admitted for fever of unknown origin, case discussed with multiple specialities in house and transfer was attempted. See transfer nurse's note for details however patient denied at [facility], [facility], [facility] and other tertiary facilities as per them and transfer nurse there is no different workup/services that can be offered at tertiary care. Neurologist from [facility] Dr. Martínez thinks the underlying etiology of fever psychogenic fever Patient previously received hydromorphone daily Plan: -Control agitation as above - Monitor for fever #Tardive dyskinesia Diagnostic workup: - Nonpurposeful twisting movements of the patient's upper extremity with recurrent grimaces noted on 06/10 when the patient was taken off sedation - Patient's family notes that the patient has had a long history of nonpurposeful movement and has been previously prescribed deutetrabenazine for management by his neurologist - Per ICU, if deutetrabenazine remains ineffective, will increase to 12 mg twice daily after 1 week of starting the medication, may take up to 4 weeks to see maximal effect -Deutetrabenazine was discontinued in ICU, will continue to hold Plan: -Amantadine as above -Seroquel 100mg GT HS -Seroquel 50mg GT noon -Seroquel 50mg GT QAM #Sepsis #Bilateral chronic mastoiditis #Sinusitis #Bilateral otitis media #Bilateral otitis externa #Brittney parapsilosis #Community Acquired Pneumonia #UTI, E.coli, ESBL #Pseudomonas aeruginosa, sputum positive #Mucus plugs, right upper lung and left lower lung ? -History of chronic mastoiditis. -Met SIRS criteria on admission: T 105F, HR 176, RR 26, PaCO2 26, WBC 16.3. -Head CT (05/08/2025): prominent sphenoid ethmoid maxillary antral sinusitis, bilateral chronic mastoiditis, bilateral otitis media. -CT Orbit Sella Inner (05/08/2025): severe bilateral chronic mastoiditis, bilateral otitis externa and otitis media, bilateral cholesteatomas in the attics. -CXR (05/09/2025): Bilateral Perihilar Pneumonia. CXR (05/13/2025): Extensive Bilateral Pneumonia, CXR(05/19/2025): Significant bilateral Pneumonia -CT Chest/abd/pelvis (05/16/2025): Extensive bilateral pneumonia, Cystitis pattern, Cholelithiasis -A repeat Cocci serology test was negative -Lumbar puncture(05/10/2025): clear, WBC 3, glucose 70, total protein 25. CSF testing negative. -Respiratory viral panel (05/10/2025): rhinovirus/enterovirus and human metapneumovirus detected. -UA 05/08 and 05/16 negative. -06/17 Chest x-ray negative. CTAP negative [Culture Hx] -1st Blood Cx (05/08): No growth for 5 days. 2nd Blood Cx (05/11): No growth for 5 days, 3rd Blood Cx (05/16): No growth for 5 days, 4th Blood Cx (06/01): No growth for 48hrs -1st Sputum Cx (05/09): Pseudomonas aeruginosa (only sensitive to Meropenem, Tobramycin). 2nd Sputum Cx (05/13): Mixed oral hamilton. 3rd Sputum Cx (05/19): Mixed oral hamilton, 4th Sputum Cx (05/20): Brittney albicans, 5th Sputum Cx (06/01): GNR -CSF Cx (05/10): No growth for 3 days -Left Ear Cx (05/12): Brittney parapsilosis -Right Ear Cx(05/12): E.coli, ESBL (only sensitive to Ertapenem, Meropenem, Zosyn) -Urine Cx (06/01): E.coli, ESBL (only sensitive to Ertapenem, Meropenem, Nitrofurantoin, Zosyn) -Sputum culture 06/05 shows sensitive to Zosyn and intermittent resistance to cefepime [Antibiotics/Antifungal Hx] IV Zosyn 3.375g x1 (at 05/08) IV Ceftriaxone 1g x1 (at 05/08) IV Acyclovir 640mg q8hr (05/08-05/11) since LP negative. IV Ceftriaxone 2g q12hr (05/08-05/11) IV Vancomycin qd (05/08-05/11) since MRSA screen is negative Ofloxacin Opt racquel 0.3% 5 drops Both ears bid (05/09-05/18, 05/21-05/31) IV Meropenem 1000mg q8hr (05/12-05/22, 05/24-05/25) IV Doxycycline (05/16-05/18) IV Micafungin 100mg qd (05/28-05/30, 06/01-06/03) Ciprofloxacin Op Racquel 0.3% ear drops (06/02-06/03) -CXR is showing pneumonia, but CXR often remain abnormal for days to weeks. The infiltrate or consolidation can persist even though the infection has cleared. The radiographic improvement can take up to 4-6 weeks.? Patient is on minimal ventilator setting, oxygen requirement is stable, and has completed antibiotics course. -UTI unlikely sources of infection given low number of colonies and long antibiotics treatment in ICU. -Per ENT, Dr. Ojeda, patient does not have acute coalescent mastoiditis in either ear. Left and right middle ear is also not filled with effusion. -Chest x-ray 06/07 AM, showed a left lower lobe consolidation, ddx left lower lobe pneumonia versus mucous plug versus left pleural effusion versus mucous plug versus atelectasis lung ultrasound at bedside, effusion ruled out, no hepatization of the lung noted. Bedside bronchoscopy showed left lower lobe mucous plug, cleared with deep suction Plan: IV Zosyn 06/05-06/18 for 14-day course coverage of Pseudomonas IV Zosyn 3.375g x1 (at 05/08) IV Ceftriaxone 1g x1 (at 05/08) IV Acyclovir 640mg q8hr (05/08-05/11) IV Ceftriaxone 2g q12hr (05/08-05/11) IV Vancomycin qd (05/08-05/11) since MRSA screen is negative IV Meropenem 1000mg q8hr (05/12-05/22, 05/24-05/25) IV Doxycycline (05/16-05/18) IV Micafungin 100mg qd (05/28-05/30, 06/01-06/03) IV fluconazole 06/05-06/07 Follow-up: - Once weaned off sedation and patient has cough reflex intact and more awake/alert, will consider chest physiotherapy. #Phimosis s/p dorsal slit procedure 06/08/2025 #Paraphimosis (resolved) #Balanitis (resolved) Diagnostic workup: - Edema and tenderness of the glans penis, Swelling of the distal retracted foreskin, Constricting band of tissue proximal to the head of the penis at the coronal sulcus on presentation, s/p reduction of the paraphimosis by urologist Dr. Vargas on 05/09 and phimosis dorsal slit on 06/08 Plan: - Monitor for worsening swelling, bleeding, or blockage of urine #Seizure disorder by history #Cerebral palsy by history Diagnostic workup: - Active seizure disorder ruled out, multiple EEGs negative for seizure activity Plan: - Hold Depakote 250 mg GT every 8 hours and Continue Keppra 800 mg GT twice daily #Sinus tachycardia Differential diagnosis: Infection, hypersympathetic activity Diagnostic workup: - Did have positive sputum and urine culture for Pseudomonas and ESBL respectively - Patient's last fever was 06/12/2025 05:46 - Echocardiogram was obtained to rule out any vegetations TTE shows normal systolic function, EF 55 to 60%, diastolic dysfunction grade 1, no evidence of vegetation or endocarditis Plan: -Propranolol discontinued - Monitor for fever, use ibuprofen as needed for fever episode - Telemetry monitoring #Elevated alkaline phosphatase, improving #Low PTH #Abnormal nuclear medicine bone scan Differential diagnosis: increased osteoblastic activity in setting of vegetative state, bone infection (particularly of left mastoid), hypoparathyroidism, osteoarthritis Diagnostic workup: - PTH intact low at 3.6, calcium 9.9, vitamin D 25-OH 18.1 - Renal function intact, at baseline - Nuclear medicine bone scan shows minor asymmetric uptake left knee and mild increased uptake mid left tibia - Knee x-ray 06/06 and tibia-fibula x-ray 06/06 showed no findings diagnostic for osseous metastatic disease - MRI left leg 06/08 images severely degraded by continuous patient motion - No pain to palpation of bilateral lower extremities Plan: - Follow up on abnormal imaging outpatient #Tongue Laceration, traumatic #Gingivial Bleeding, Oral Trauma Diagnostic workup: -Known to have episodes of jaw spasms and teeth clenching with agitation. Had significant trauma to gums and tongue due to clenching of teeth 06/06 - No further bleeding appreciated in oral mucosa Plan: - Patient required cisatracurium to relax jaw, pressure was applied locally, oral packing none, injections of lido?epinephrine x 3 to gums on 06/06 night - Monitor for bleeding #Bronchospasm #History of asthma -Magnesium for bronchodilator effect as needed. Plan: -Albuterol and Ipratropium as needed. #Failed extubation 05/12 #Acute hypoxic respiratory failure s/p tracheostomy #Ventilator dependent -Patient underwent tracheostomy on 05/26/2025 -Chest physiotherapy daily #Chronic PEG tube dependence -Nepro 1.8 Christ 1L RTH -Pro Stat Sugar Free 30 ml #Hyperphosphatemia Plan: -Sevelamer being held #Normocytic Anemia #Leukocytosis-Resolving #Maculopapular rash to the buttocks-Resolving #Acute urinary retention-Resolved #Hypoalbuminemia-Resolved #Hyperkalemia-Resolved #Acute kidney injury-Resolved #Anion Gap Metabolic Acidosis-Resolved #Acute nonocclusive thrombus in the left brachial vein-Resolved Disposition: Tele overflow (ICU), pending RT for transport DVT prophylaxis: SCDs GI prophylaxis: Protonix IV Diet: Nepro 1.8 Christ 1L RTH and Pro Stat Sugar Free 30 ml-bolus feeds Lines: PIV CODE STATUS: Full This case was discussed with my attending physician, Dr. Dang, and senior resident, Dr. Larson. Tamiko Cobb DO Internal Medicine PGY-1 Attending Provider Attestation/Addendum I have discussed and was present for the essential components of the history, physical examination, diagnosis, and treatment plan with the resident. I agree with the patient's care as documented by the resident and amended herein by me. Kade Dagn DO. Although this document has been carefully reviewed, there may still be some phonetic and other typographical errors. These errors are purely grammatical due to imperfections in the software program and should not be construed in any way to compromise the substance of the patient's medical care during this visit.
[2025-06-30 09:31] LABS: Basophils # (Auto) 0.1 Thou/mm3 (0.0-0.2); Basophils % (Auto) 1 % (0-2.5); Eosinophils # (Auto) 0.6 Thou/mm3 (0.0-0.5); Eosinophils % (Auto) 5 % (0-10); Hematocrit 34.1 % (41.0-53.0); Hemoglobin 10.1 g/dL (13.5-16.0); Immature Granulocytes Auto 0.05 Thou/mm3 (0.00-0.00); Lymphocytes # (Auto) 3.6 Thou/mm3 (1.0-4.8); Lymphocytes % (Auto) 33 % (10-50); Mean Corpuscular HGB Conc 29.6 g/dl (31.0-37.0); Mean Corpuscular Hemoglobin 25.7 pg (25.0-35.0); Mean Corpuscular Volume 87 fL (80-100); Monocytes # (Auto) 0.8 Thou/mm3 (0.0-0.8); Monocytes % (Auto) 8 % (0-12); Neutrophils # (Auto) 5.6 Thou/mm3 (1.8-7.7); Neutrophils % (Auto) 52 % (37-80); Nucleated Red Blood Cell # 0.00 Thou/mm3 (0.00-0.00); Nucleated Red Blood Cell % 0 /100 WBC (0); Platelet Count 407 Thou/mm3 (140-440); RDW Standard Deviation 49.7 fL (35.1-43.9); Red Blood Count 3.93 Miln/mm3 (4.50-5.90); White Blood Count 10.8 Thou/mm3 (3.8-10.6)
[2025-06-30 09:51] LABS: Anion Gap 13 (7-16); BUN/Creatinine Ratio 29 Ratio (12-20); Blood Urea Nitrogen 23 mg/dL (9-23); Calcium 10.9 mg/dL (8.3-10.6); Carbon Dioxide 24.7 mMol/L (20.0-31.0); Chloride 108 mMol/L (98-107); Creatinine (Component) 0.8 mg/dL (0.6-1.3); Estimated Creatinine Clearance 105.1 mL/min (>60); Glucose 119 mg/dL (74-106); Osmolality,Calculated 295 (275-295); Potassium 3.9 mMol/L (3.4-5.1); Sodium 146 mMol/L (136-145); eGFR > 60 See Note
--- NOTE | 2025-06-30 10:14 | PC.SS ---
SS spoke to Grant from [facility] who explained he is still working on bed for today. Grant is aware transportation has been setup for 12pm with RT rider. Grant requested a later transport time of 4pm. Grant explained he should have bed tonight and will contact SS with bed information. Rishi KRUSE is aware and will reschedule transportation and RT rider.
--- NOTE | 2025-06-30 10:33 | PC.SS ---
MAT MAKING MACHINE TENDER notified ICU charge nurse, bedside nurse and RT staff that transport is to be moved back to 4:00 pm today.
--- NOTE | 2025-06-30 10:36 | PC.SS ---
SHOEMAKING FINISHER contacted transport to re-schedule ambulance transport for 4:30 pm.
--- NOTE | 2025-06-30 14:20 | PC.SS ---
Addendum entered by Ping Wren 06/30/25 15:03: SS received call from Grant from [facility] who explained if pt can be put on will call list for tonight and he will contact Bill Clerk for transport. SS explained RT rider with ambulance transport has been arranged for 4:30pm. Per Grant, they are still working on bed details and availability. Grant is aware to contact NICOLA or Rishi KRUSE before 4pm. Original Note: NICOLA has left voicemail for Grant from [facility] to confirm d/c for today. Grant is aware transportation has been setup for 4:30pm to [facility] and with an RT rider. NICOLA is waiting for bed details from Grant.
--- NOTE | 2025-06-30 15:48 | PC.SS ---
DRAPERY WORKER notified that [facility] will not have bed avaialbe to receive patient today. DRAPERY WORKER notified [facility] to cancel transport. DRAPERY WORKER provided update to bedside nurse, charge nurse and RT staff.
--- NOTE | 2025-06-30 16:14 | ESPR_ITS ---
Documentation for date of: 06/30/25 Subjective Subjective Interval history: Patient did not leave yesterday due to transport logistics as no ambulance with the adequate support was available. Today the ambulance and transport is set up however it is reported that the LTAC no longer has the room assignment available. Therefore discharge will have to be attempted again tomorrow. Overnight there were no acute events and the patient has not needed any additional IV medication pushes for agitation. Patient also has remained afebrile since 06/26/2025. He is hyperactive with continuous movements on exam but appears at baseline. He is on 3L blow-by oxygen and heart rate remains in the 120-130s. There are however copious milky-yellow trach secretions, patient being suctioned throughout the day, requested for RT to have trach tubing changed. Exam Vital Signs Temp Pulse Resp BP Pulse Ox O2 Del Method O2 Flow Rate 98.1 F 137 H 21 H 121/72 95 Blow-by 3 06/30/25 12:00 06/30/25 12:00 06/30/25 12:00 06/30/25 12:00 06/30/25 12:00 06/29/25 16:02 06/30/25 06:28 FiO2 28 06/30/25 12:00 Narrative Exam Gen: Continuous non-purposeful movements, noninteractive. HEENT: Opens eyes, does not make meaningful eye contact. Trach in place, on blow-by. Mucous membrances moist. Copious milky-yellow trach secretions. Abdomen: Soft, nondistended, No rebound tenderness, PEG tube in place MSK: No lower extremity edema, no redness, peripheral pulses presents, contracted hands, decreased tone Skin: No petechiae or lesions Neuro: Alert and moving extremities, pupils reactive, nonpurposeful dyskinetic movements with facial grimacing. Objective Labs 06/30/25 09:14 06/30/25 09:14 Labs: Laboratory Results - last 24 hr 06/30/25 09:14 WBC 10.8 H RBC 3.93 L Hgb 10.1 L Hct 34.1 L MCV 87 MCH 25.7 MCHC 29.6 L RDW Std Deviation 49.7 H Plt Count 407 Neut % (Auto) 52 Lymph % (Auto) 33 Assumption % (Auto) 8 Eos % (Auto) 5 Baso % (Auto) 1 Neut # (Auto) 5.6 Lymph # (Auto) 3.6 Assumption # (Auto) 0.8 Eos # (Auto) 0.6 H Baso # (Auto) 0.1 Immature Gran # (Auto) 0.05 H Absolute Nucleated RBC 0.00 Immature Gran % 1 H Nucleated RBC % 0 Sodium 146 H Potassium 3.9 Chloride 108 H Carbon Dioxide 24.7 Anion Gap 13 BUN 23 Creatinine 0.8 Estim Creat Clear Calc 105.1 eGFR > 60 BUN/Creatinine Ratio 29 H Glucose 119 H Calculated Osmolality 295 Calcium 10.9 H ABG Interpretation ABG results: 05/09/25 05/09/25 05/09/25 11:56 13:40 18:50 ABG pH 7.40 7.27 L D 7.28 L ABG pCO2 40 43 55 H D ABG pO2 131 H 53 L* D 70 L ABG HCO3 25 20 26 ABG O2 Saturation 99 H 81 L 92 ABG Base Excess 0 -7 L -2 VBG pH VBG pCO2 VBG pO2 VBG Base Excess 05/10/25 05/11/25 05/12/25 00:14 05:06 01:18 ABG pH 7.35 7.33 L 7.39 ABG pCO2 42 D 54 H D 48 ABG pO2 103 D 93 94 ABG HCO3 23 28 H 29 H ABG O2 Saturation 99 H 98 98 ABG Base Excess -3 2 3 VBG pH VBG pCO2 VBG pO2 VBG Base Excess 05/12/25 05/12/25 05/13/25 03:58 11:50 05:10 ABG pH 7.46 H 7.39 7.19 L* D ABG pCO2 41 48 60 H D ABG pO2 105 58 L* D 114 H D ABG HCO3 29 H 29 H 23 ABG O2 Saturation 99 H 90 L 98 ABG Base Excess 5 H 4 H -6 L VBG pH VBG pCO2 VBG pO2 VBG Base Excess 05/17/25 05/18/25 05/19/25 01:30 04:09 04:43 ABG pH 7.38 7.43 7.47 H ABG pCO2 46 44 43 ABG pO2 90 83 80 L ABG HCO3 27 H 29 H 31 H ABG O2 Saturation 98 97 97 ABG Base Excess 2 5 H 7 H VBG pH VBG pCO2 VBG pO2 VBG Base Excess 05/21/25 05/21/25 05/31/25 04:18 06:33 08:06 ABG pH 7.37 D 7.46 H ABG pCO2 50 H 38 D ABG pO2 40 L* D 121 H D ABG HCO3 29 H 27 H ABG O2 Saturation 66 L 100 H ABG Base Excess 3 3 VBG pH 7.55 VBG pCO2 31 L VBG pO2 144 H VBG Base Excess 5 H 06/05/25 06/05/25 06/06/25 13:37 23:46 05:20 ABG pH 7.47 H 7.45 ABG pCO2 35 38 ABG pO2 200 H 54 L* D ABG HCO3 25 26 ABG O2 Saturation 101 H 89 L ABG Base Excess 2 2 VBG pH 7.50 VBG pCO2 34 L VBG pO2 90 H VBG Base Excess 4 H 06/10/25 17:41 ABG pH ABG pCO2 ABG pO2 ABG HCO3 ABG O2 Saturation ABG Base Excess VBG pH 7.40 VBG pCO2 43 VBG pO2 43 VBG Base Excess 2 Quality Measures Quality Measures VTE prophylaxis Assessment & Plan Assessment Current Active Medications: Generic Name Dose Route Start Last Admin Trade Name Freq PRN Reason Stop Dose Admin Acetaminophen 325 mg 06/16/25 16:18 06/26/25 19:31 Acetaminophen Racquel 325 Mg/10 Ml Udc GT 07/09/25 16:12 325 mg Q4HR PRN Administration pain (1-3) or fever > 100.4 Amantadine HCl 100 mg 06/29/25 07:00 06/30/25 13:50 Amantadine Hcl 100 Mg Capsule PO 07/06/25 06:59 100 mg BID@0700,1400 KYA Administration Clonazepam 0.5 mg 06/27/25 22:00 06/30/25 13:50 Clonazepam 0.5 Mg Tablet GT 07/02/25 21:59 0.5 mg TID KYA Administration Gabapentin 900 mg 06/29/25 14:00 06/30/25 13:50 Gabapentin 300 Mg Capsule GT 07/29/25 13:59 900 mg TID KYA Administration Lansoprazole 30 mg 06/29/25 09:00 06/30/25 08:20 Lansoprazole 30 Mg Tab. GT 07/29/25 08:59 30 mg QDAY KYA Administration Protocol Levetiracetam 800 mg 06/20/25 21:00 06/30/25 08:22 Levetiracetam Liqd 500 Mg/5 Ml Udc GT 07/20/25 20:59 800 mg BID KYA Administration Quetiapine Fumarate 100 mg 06/21/25 21:00 06/29/25 21:18 Quetiapine Fumarate 100 Mg Tablet GT 07/21/25 20:59 100 mg HS KYA Administration Quetiapine Fumarate 50 mg 06/21/25 09:15 06/30/25 08:15 Quetiapine Fumarate 25 Mg Tablet GT 07/21/25 09:14 50 mg QAM KYA Administration Quetiapine Fumarate 50 mg 06/29/25 12:00 06/30/25 11:41 Quetiapine Fumarate 25 Mg Tablet GT 07/29/25 11:59 50 mg QDAY@1200 KYA Administration Plan 24-year-old male with past medical history of cerebral palsy, asthma, seizure disorder, chronic mastoiditis, recurrent pneumonia, and chronic PEG tube dependence originally presented to the ED on 05/08/2025 with fever and seizure and was admitted for sepsis workup, and the next day was transferred to the ICU for intubation due to concern for airway protection, eventually receiving tracheostomy on 05/26/2025. Patient was treated for resistant Pseudomonas pneumonia. Patient was downgraded from ICU to telemetry on 06/16/2025. Neurology is consulted as the patient has been having recurrent fevers, agitative episodes, and hyperactive movements throughout hospitalization. Patient eventually was kept on home Keppra and has been seizure-free, home Depakote has been discontinued, and started on a regimen of amantadine, clonazepam, quetiapine, and gabapentin. #Fevers of unknown origin, resolved #Dyskinesia #Hx of seizure disorder #Hx of cerebral palsy EEG 05/11 unremarkable. Repeat EEG 05/20 showed electrographic seizure activity. Continuous EEG 05/22-05/23: no seizure activity or status epilepticus. Repeat EEG 06/05 negative for seizure activity. MRI brain: no acute pathology. Etiology behind fevers remained unclear. DDx: medications, infectious, hypermetabolic syndrome Was previously tried on [place] prior to hospitalization however family did not like patient's response to this medication, additionally LTAC apparently cannot administer this med. - Continue Keppra 800 mg BID - Continue clonazepam 0.5 mg TID - OK to continue gabapentin 900 mg TID - Continue Seroquel 50 mg AM, 50 mg at noon, and 100 mg HS. - Currently on amantadine 100 mg BID - LTAC discharge pending #Chronic mastoiditis #ESBL UTI, treated #Pseudomonas aeruginosa pneumonia, treated #Mucus plugs, right upper lung and left lower lung, treated? #Paraphimosis, resolved #Balanitis, resolved #Gingivial bleeding, oral trauma #Severe asthma, controlled #Maculopapular rash to the buttocks, resolved - as per primary team Patient was discussed with the Neurology attending, Dr. Lang. Thank you for allowing us to participate in the care of this patient. Christy Cheema, PGY-3 Attending Provider Attestation/Addendum I personally have seen and examined the patient and agreed with the resident's findings, assessment and plan of care. Patient remained stable on current management including gabapentin, Keppra, Seroquel, clonazepam. Waiting for placement at LTAC
[2025-06-30] MEDS: ACETAMINOPHEN SOL 325 MG/10 ML UDC GT (21:14)
[2025-07-01] VITALS (10 sets, daily range): BP systolic 110–126; BP diastolic 63–86; PULSE 57–158; RESP 22–36; TEMP 36.7–38.7; O2SAT 92–98; BMI 24.5
[2025-07-01] MEDS: ACETAMINOPHEN SOL 325 MG/10 ML UDC GT ×2 (02:33→07:52)
[2025-07-01] MEDS: GABAPENTIN 300 MG CAPSULE 900 MG GT ×2 (05:13→13:39)
[2025-07-01 06:55] LABS: Basophils # (Auto) 0.1 Thou/mm3 (0.0-0.2); Basophils % (Auto) 1 % (0-2.5); Eosinophils # (Auto) 0.6 Thou/mm3 (0.0-0.5); Eosinophils % (Auto) 4 % (0-10); Hematocrit 33.1 % (41.0-53.0); Hemoglobin 10.2 g/dL (13.5-16.0); Immature Granulocytes Auto 0.06 Thou/mm3 (0.00-0.00); Lymphocytes # (Auto) 3.7 Thou/mm3 (1.0-4.8); Lymphocytes % (Auto) 21 % (10-50); Mean Corpuscular HGB Conc 30.8 g/dl (31.0-37.0); Mean Corpuscular Hemoglobin 26.0 pg (25.0-35.0); Mean Corpuscular Volume 84 fL (80-100); Monocytes # (Auto) 1.0 Thou/mm3 (0.0-0.8); Monocytes % (Auto) 6 % (0-12); Neutrophils # (Auto) 11.9 Thou/mm3 (1.8-7.7); Neutrophils % (Auto) 69 % (37-80); Nucleated Red Blood Cell # 0.00 Thou/mm3 (0.00-0.00); Nucleated Red Blood Cell % 0 /100 WBC (0); Platelet Count 393 Thou/mm3 (140-440); RDW Standard Deviation 47.6 fL (35.1-43.9); Red Blood Count 3.92 Miln/mm3 (4.50-5.90); White Blood Count 17.3 Thou/mm3 (3.8-10.6)
[2025-07-01 07:05] LABS: Alanine Aminotransferase 63 U/L (10-49); Albumin, Serum 5.3 gm/dL (3.5-5.0); Albumin/Globulin Ratio 1.7 (1.2-2.2); Alkaline Phosphatase 140 U/L (46-116); Anion Gap 15 (7-16); Aspartate Amino Transferase 31 U/L (0-34); BUN/Creatinine Ratio 31 Ratio (12-20); Bilirubin,Total 0.2 mg/dL (0.3-1.2); Blood Urea Nitrogen 25 mg/dL (9-23); Calcium 10.7 mg/dL (8.3-10.6); Calcium (Corrected) 10.7 mg/dL (8.5-10.1); Carbon Dioxide 26.0 mMol/L (20.0-31.0); Chloride 104 mMol/L (98-107); Creatinine (Component) 0.8 mg/dL (0.6-1.3); Estimated Creatinine Clearance 95.2 mL/min (>60); Globulin 3.2 gm/dL (2.3-3.5); Glucose 107 mg/dL (74-106); Magnesium 1.7 mg/dL (1.6-2.6); Osmolality,Calculated 293 (275-295); Phosphorous 5.3 mg/dL (2.4-5.1); Potassium 3.6 mMol/L (3.4-5.1); Sodium 145 mMol/L (136-145); Total Protein 8.5 gm/dL (5.7-8.2); eGFR > 60 See Note
[2025-07-01] MEDS: POTASSIUM CHLORIDE 10% 20 MEQ/15 ML UDC 40 MEQ GT (08:08)
[2025-07-01] MEDS: Magnesium Sulfate 4 GM Ivpb 4 GM/50 ML BAG IV (08:09)
[2025-07-01] MEDS: LANSOPRAZOLE 30 MG TAB.RAP.DR GT (08:11)
--- NOTE | 2025-07-01 08:17 | PC.SS ---
Follow up note: SS has sent updated inquiry to [facility] using [employer] and fax. SS spoke to Grant from [facility] who explained he has morning meeting this morning at 8:30 and will inquire about bed being available.
[2025-07-01] MEDS: levETIRAcetam LIQD 500 MG/5 ML UDC 800 MG GT (08:42)
--- NOTE | 2025-07-01 09:06 | XR_ITS ---
EXAMINATION: AP chest single view TECHNIQUE: AP portable semiupright chest single view Date and time: July 01, 2025, 0937 hours INDICATIONS: Inpatient with hypoxia FINDINGS: Reduced inspiratory effort Mild elevation right hemidiaphragm Normal heart size Tracheostomy tube tip 3.3 cm above haresh No pneumonia or pulmonary edema IMPRESSION: No pneumonia or pulmonary edema
--- NOTE | 2025-07-01 09:56 | PC.SS ---
Addendum entered by Ping Wren 07/01/25 11:15: Physician: Dr. Randall ([facility]) Original Note: SS received call ed from Grnat from [facility] and they have bed available at [place] today (not [place]). Grant is requesting pt to arrive after 7pm. [facility] [id number] [facility] [address] Room 315 Number for report is [phone]
[2025-07-01] MEDS: RINGERS LACTATED 1000 ML 1,000 ML 999 ML IV (10:31)
--- NOTE | 2025-07-01 10:31 | PC.SS ---
REHAB RN notified patient's mother, Aruna Baltazar; that patient has been accepted to [facility]. Patient's mother notified that [facility] did not possess open bed at current time. Patient's mother confirmed plan to have patient transitioned to [facility]. Ambulance transport to be scheduled for this afternoon. REHAB RN updated finished goods planner, charge nurse and bedside nurse.
--- NOTE | 2025-07-01 10:49 | PC.SS ---
SS followed up with Elina from [facility] who is requesting transportation company provided animal shelter clerk ACLS for transportation due to not having an [facility] rider available today. SS spoke to Salas and Loree from [facility] who report they have ACLS Director [employer]. [facility] and are aware [facility] has to be at 4pm. SS received call from Yassine the poultry hatchery supervisor from [facility] who states ACLS Director [employer] is not required for pt going on blow by, peg, and trach. Yassine is aware [facility] rider is not available. Grant from [facility] is aware. Bedside nurse is aware.
--- NOTE | 2025-07-01 11:58 | ESDS_ITS ---
<Statement entered by Ru Larson MD - 06/30/25 17:25> I saw and examined patient personally and supervised PGY 1 resident, Dr. Cobb with formulating a management plan. I agree with the documentation with the exceptions as listed below. Plan of care discussed with Attending Dr. Laurence Larson MD PGY 2 Disclaimer: This note was dictated by speech recognition. Minor errors in double bass player may be present due to voice recognition software. Planned Discharge Date 07/01/25 DS: Providers Provider Date of admission: 05/08/25 10:02 Primary care physician: Tavares Cole MD Admitting Provider: Natasha Moreira MD Attending Provider on Admission: Cortez Dang DO Consults: 05/08/25 11:18 Consult to Neurology / Tele-Neurology Stat Comment: Consulting Provider: Darryl Lang 05/08/25 14:57 Referral Wound Care Routine Comment: 05/09/25 08:08 Consult to Urology Routine Comment: Ph Consulting Provider: Rei Vargas 05/09/25 13:46 Referral Nutritional Services Routine Comment: Gtube dependant 05/09/25 14:04 Consult to Vp Corporate Development Routine Comment: Hypoxia Consulting Provider: Jono Armendariz I 05/09/25 16:37 Referral Registered Dietitian Routine Comment: 05/24/25 14:37 Consult to General Surgery Routine Comment: Tracheostomy Consulting Provider: Marcello Jin 06/01/25 13:20 Consult to Infectious Diseases Urgent Comment: MICAFUNGIN RESTART Consulting Provider: John Rubio 06/17/25 09:41 Consult to Vp Corporate Development Routine Comment: Consulting Provider: Katherine Siu 06/21/25 12:53 Referral - Special Education Professional Routine Service Needed for Transfer: Neurology Addl Comments:: higher level of care, [place] Attending Provider on DC: Cortez Dang DO Discharging Provider: Cortez Dang DO DS: Diagnosis Problem List Completed Was Problem List Reviewed/Reconciled?: Yes Hospital Course Hospital Course Hospital course: Hospital Course: Patient is a 25-year-old male with past medical history of cerebral palsy, asthma, seizure disorder, chronic mastoiditis, recurrent pneumonia, and PEG tube dependence who presented initially with fever and seizures and was admitted for sepsis workup on 05/08/2025. Patient was transferred to ICU on 05/09/2025 for increased agitation tachypnea and secretions with recurrent fevers and was intubated. During his first ICU stay, patient required intubation and extubation multiple times; eventually on 05/26/2025, a tracheostomy tube was placed due to respiratory failure. In addition he had multiple episodes of fever, agitation, and thrashing requiring antipyretics and sedation. Sputum culture grew thurman resistant Pseudomonas. Patient was downgraded to telemetry on 05/31/2025. Patient was readmitted to ICU on 06/05/2025 secondary to increased respiratory rate, diaphoresis, and significant discomfort and agitation. Patient was downgraded on 06/12 due to stable condition on pressure support with improvement of agitation and lack of fever over 24 hours. Patient was redowngraded to telemetry on 06/20/2025. Patient denied for transfer at [facility], [facility], [facility] and other tertiary facilities as per them there is no different workup/services that can be offered at tertiary care. Patient was subsequently accepted to multiple LTAC's, but continued to have agitation tachycardia and fevers until 06/28/2025. Patient was subsequently placed on gabapentin, and did not have any calls for him over that night. Family was amicable to placement in LTAC and patient was prepared for discharge on 06/29/2025, however due to transport issues, postponed until 07/01/25. Night of 06/30/24, patient developed fever and was treated with tylenol and 1 L LR with improvement, furthermore, patient was noted to have sputum production of 750 cc overnight and was treated with chest PT and CXR unremarkable. As of 07/01/25, patient is stable for discharge to LTAC. Antibiotics given during admission and major imaging findings are below. Antibiotics given during this admission: IV Zosyn 06/05-06/18 for 14-day course coverage of Pseudomonas IV Zosyn 3.375g x1 (at 05/08) IV Ceftriaxone 1g x1 (at 05/08) IV Acyclovir 640mg q8hr (05/08-05/11) IV Ceftriaxone 2g q12hr (05/08-05/11) IV Vancomycin qd (05/08-05/11) since MRSA screen is negative IV Meropenem 1000mg q8hr (05/12-05/22, 05/24-05/25) IV Doxycycline (05/16-05/18) IV Micafungin 100mg qd (05/28-05/30, 06/01-06/03) IV fluconazole 06/05-06/07 Major imaging findings: 05/08/25 CXR, CT C/A/P, CT orbit, CT head - No aspiration pneumonia, No gross abnormality in the abdomen or pelvis, severe bilateral chronic mastoiditis, bilateral otitis externa, bilateral otitis media, bilateral cholesteatomas in the attics, Negative for acute hemorrhage, mass effect or midline shift 05/13/25 CXR- extensive bilateral pneumonia 05/16/25 CT C/A/P, CXR, CT head, Gallbladder US, Venous Doppler Study- Extensive bilateral pneumonia, Cystitis pattern, Cholelithiasis, Negative for acute hemorrhage, mass effect or midline shift, Positive for acute nonocclusive thrombus in the left brachial vein 05/23/25 MRI brain- Negative for acute hemorrhage mass effect or midline shift, No acute infarct, No MR findings diagnostic for demyelinating disease 06/06/25 Echo, bone scan, X rays tibia/fibula, knee- EF 55-60%, bone scan positive, no osseus metastaic disease Discharge Instructions: ? Continue medication as listed below. - START free water flushes 250cc every 6 hours through PEG tube ? You have psychogenic fevers, you will intermittently have high temperatures. ? Follow-up with ENT as outpatient for your chronic bilateral ear infections as [facility] does not have ENT services ? Continue neurology follow-up outpatient. - Follow up with your primary care physician within 1 week of discharge. If you do not have a primary care physician, please follow up with the [facility] Residents clinic ([phone]) ? If you experience any new, worsening or persistent symptoms either call your primary doctor, or dial 911 or present to the emergency department. Problem List: #Hospital acquired delirium #Agitation #Psychogenic fever #? Opioid withdrawal #Tardive dyskinesia #Sepsis #Bilateral chronic mastoiditis #Sinusitis #Bilateral otitis media #Bilateral otitis externa #Brittney parapsilosis #Community Acquired Pneumonia #UTI, E.coli, ESBL #Pseudomonas aeruginosa, sputum positive #Mucus plugs, right upper lung and left lower lung ? #Phimosis s/p dorsal slit procedure 06/08/2025 #Paraphimosis (resolved) #Balanitis (resolved) #Seizure disorder by history #Cerebral palsy by history #Sinus tachycardia #Elevated alkaline phosphatase, improving #Low PTH #Abnormal nuclear medicine bone scan #Tongue Laceration, traumatic #Gingivial Bleeding, Oral Trauma #Bronchospasm #History of asthma #Failed extubation 05/12 #Acute hypoxic respiratory failure s/p tracheostomy #Ventilator dependent #Chronic PEG tube dependence #Hyperphosphatemia #Normocytic Anemia #Leukocytosis-Resolving #Maculopapular rash to the buttocks-Resolving #Acute urinary retention-Resolved #Hypoalbuminemia-Resolved #Hyperkalemia-Resolved #Acute kidney injury-Resolved #Anion Gap Metabolic Acidosis-Resolved #Acute nonocclusive thrombus in the left brachial vein-Resolved Plan of care discussed with attending Dr. Dang, and PGY-2 Dr. Larson. Tamiko Cobb, DO Internal Medicine, PGY-1 Time Spent with Patient Time attestation: Total time spent providing and/or coordinating discharge services: Time spent: Greater than 30 minutes Exam Vital Signs Temp Pulse Resp BP Pulse Ox O2 Del Method O2 Flow Rate 98.6 F 129 H 29 H 136/90 H 100 Blow-by 3 06/30/25 04:00 06/30/25 06:28 06/30/25 06:28 06/30/25 04:00 06/30/25 06:28 06/29/25 16:02 06/30/25 06:28 FiO2 28 06/30/25 06:28 Narrative Exam General: Alert, unable to assess orientation as baseline nonverbal, calmer, tachycardic, on blow by Eyes: PERRL, EOMI. Anicteric, vision grossly intact. Ears: no ear discharge, Hearing grossly intact. erythematous L ear with some swelling Nose: No nasal discharge. Mouth/Throat: Moist mucous membranes, no redness, no lesions. Neck: Neck supple, non-tender, no cervical lymphadenopathy. Lungs: Coarse breath sounds bilaterally, No accessory muscle use, trach in place Cardio: Normal S1/S2, tachycardic, no murmurs appreciated, no JVD or carotid bruits. Abdomen: Soft, non-tender, no palpable masses, peristalsis present, no guarding or rebound, PEG tube in place Extremities: Symmetrical, no significant deformities, no peripheral edema , non-tender, peripheral pulses present. Skin: No rashes, no lesions, warm to touch. Neuro: No focal neurological deficits. Psych: Calm, nonpurposeful movements with some grimacing Discharge Plan Plan Patient Disposition: Xfer [employer] Tr[employer] Assist[employer] Acute Patient condition on transfer: Stable Care Plan Goals: ? Continue medication as listed below. - START free water flushes 250cc every 6 hours through PEG tube due to dehydration ? You have psychogenic fevers, you will intermittently have high temperatures. ? Follow-up with ENT as outpatient for your chronic bilateral ear infections as [facility] does not have ENT services ? Continue neurology follow-up outpatient. - Follow up with your primary care physician within 1 week of discharge. If you do not have a primary care physician, please follow up with the [facility] Residents clinic ([phone]) ? If you experience any new, worsening or persistent symptoms either call your primary doctor, or dial 911 or present to the emergency department. Prescriptions/Referrals Prescriptions/Med Rec: New quetiapine 25 mg Tablet 50 mg G-tube QAM 30 Days Qty: 60 1RF quetiapine 25 mg Tablet 50 mg PO QDAY@1200 30 Days Qty: 60 0RF clonazepam 0.5 mg Tablet 0.5 mg G-tube TID 30 Days Qty: 90 2RF quetiapine 100 mg Tablet 100 mg G-tube HS 30 Days Qty: 30 1RF amantadine HCl 100 mg Capsule 100 mg PO BID@0700,1400 30 Days Qty: 60 1RF gabapentin 300 mg Capsule 900 mg G-tube TID 30 Days Qty: 270 0RF lansoprazole 30 mg Tablet,Disintegrat, Delay Rel 30 mg G-tube QDAY 30 Days Qty: 30 0RF levetiracetam 500 mg/5 mL (5 mL) Solution 800 mg G-tube BID 30 Days Qty: 480 4RF Continued ondansetron HCl 4 mg/5 mL solution 4 mg PO Q8H PRN (Reason: nausea and vomiting) Qty: 150 0RF albuterol sulfate 90 mcg/actuation HFA aerosol inhaler 2 puff INHALATION Q6H Patient Comments: TAKE 2 PUFFS WHEN NEEDED INHALATION EVERY 6 HRS 30 DAYS Discontinued omeprazole 20 mg capsule,delayed release(DR/EC) 40 mg feeding tube DAILY Patient Comments: TOME 1 CAPSULA POR VIA ORAL 30 MINUTOS BEFORE MORNING MEAL valproic acid (as sodium salt) 250 mg/5 mL Solution 250 mg PO TID Qty: 473 0RF clonazepam 0.5 mg tablet 0.5 mg PO BID PRN (Reason: agitation ) Qty: 60 0RF quetiapine 50 mg tablet 50 mg feeding tube QAM quetiapine 100 mg tablet 100 mg feeding tube HS Patient Comments: TAKE 1 TABLET BY MOUTH DAILY AT NIGHT Rx Instructions: TAKE 1 TABLET BY MOUTH DAILY AT NIGHT montelukast 10 mg tablet 10 mg feeding tube DAILY Patient Comments: TOME ARBEN TABLETA TODOS LOS TOPETE FOR 90 DAYS levetiracetam 100 mg/mL solution 800 mg feeding tube Q12H Patient Comments: GIVE NICKY 8 MLS (800 MG TOTAL) BY PER G TUBE ROUTE 2 TIMES A DAY. No Action ofloxacin 0.3 % Dropperette 5 drp OTIC (EAR) BID Rx Instructions: 5 drops into the let ear two time a day for 1o days Referrals: Tavares Cole MD [Primary Care Provider, Family Practice] Patient/Caregiver Discharge Instructions Print Language: Faroese Stand Alone Forms: Clari Award Info., Patient Portal Info Letter Discharge Order Discharge Orders: Discharge (Routine); Ordered 07/01/25 Ordered By: Ru Larson Quality Discharge Quality Measures VTE prophylaxis MD Attestestation MD Attestation I have discussed and was present for the essential components of the history, physical examination, diagnosis, and treatment plan with the resident. I agree with the patient's care as documented by the resident and amended herein by me. Kade Dang DO. Although this document has been carefully reviewed, there may still be some phonetic and other typographical errors. These errors are purely grammatical due to imperfections in the software program and should not be construed in any way to compromise the substance of the patient's medical care during this visit.
--- NOTE | 2025-07-01 13:57 | ESPR_ITS ---
Documentation for date of: 07/01/25 Subjective Subjective Interval history: Patient is planned for discharge today and transport to LT[facility] at [place] with bed and transport now coordinated. He was seen at bedside this afternoon. He appeared at baseline with extremity movements, eyes are open but non- interactive and calm. HR 140, RR 24, on 10L blow-by O2. Patient did spike a fever of 101.7 but resolved after acetaminophen 375 mg x3 as of the morning. Continues to have milky mucous secretions from the trach. Trach tubing appears to have been replaced. Midazolam 2 mg IV x1 was given in preparation for the transport. Exam Vital Signs Temp Pulse Resp BP Pulse Ox O2 Del Method O2 Flow Rate 100.7 F H 57 L 33 H 110/67 92 L Blow-by 2 07/01/25 08:52 07/01/25 08:00 07/01/25 08:00 07/01/25 08:00 07/01/25 08:00 07/01/25 08:00 07/01/25 04:00 FiO2 28 07/01/25 04:00 Narrative Exam Gen: Continuous non-purposeful extremity and head movements, noninteractive. HEENT: Opens eyes, does not make meaningful eye contact. Trach in place, on blow-by. Mucous membrances moist. Copious milky-yellow trach secretions. Heart: Tachycardic rate and regular rhythm, normal S1 and S2, no murmurs. Lungs: Wet rhonchi bilaterally. Abdomen: Soft, nondistended, No rebound tenderness, PEG tube in place MSK: No lower extremity edema, no redness, peripheral pulses presents, contracted hands, decreased tone Skin: No petechiae or lesions Neuro: Alert and moving extremities, pupils reactive, nonpurposeful dyskinetic movements. Objective Labs 07/01/25 06:36 07/01/25 06:36 Labs: Laboratory Results - last 24 hr 07/01/25 06:36 WBC 17.3 H D RBC 3.92 L Hgb 10.2 L Hct 33.1 L MCV 84 MCH 26.0 MCHC 30.8 L RDW Std Deviation 47.6 H Plt Count 393 Neut % (Auto) 69 Lymph % (Auto) 21 [place] % (Auto) 6 Eos % (Auto) 4 Baso % (Auto) 1 Neut # (Auto) 11.9 H Lymph # (Auto) 3.7 [place] # (Auto) 1.0 H Eos # (Auto) 0.6 H Baso # (Auto) 0.1 Immature Gran # (Auto) 0.06 H Absolute Nucleated RBC 0.00 Immature Gran % 0 Nucleated RBC % 0 Sodium 145 Potassium 3.6 Chloride 104 Carbon Dioxide 26.0 Anion Gap 15 BUN 25 H Creatinine 0.8 Estim Creat Clear Calc 95.2 eGFR > 60 BUN/Creatinine Ratio 31 H Glucose 107 H Calculated Osmolality 293 Calcium 10.7 H Corrected Calcium 10.7 H Phosphorus 5.3 H Magnesium 1.7 Total Bilirubin 0.2 L AST 31 ALT 63 H Alkaline Phosphatase 140 H Total Protein 8.5 H Albumin 5.3 H Globulin 3.2 Albumin/Globulin Ratio 1.7 ABG Interpretation ABG results: 05/09/25 05/09/25 05/09/25 11:56 13:40 18:50 ABG pH 7.40 7.27 L D 7.28 L ABG pCO2 40 43 55 H D ABG pO2 131 H 53 L* D 70 L ABG HCO3 25 20 26 ABG O2 Saturation 99 H 81 L 92 ABG Base Excess 0 -7 L -2 VBG pH VBG pCO2 VBG pO2 VBG Base Excess 05/10/25 05/11/25 05/12/25 00:14 05:06 01:18 ABG pH 7.35 7.33 L 7.39 ABG pCO2 42 D 54 H D 48 ABG pO2 103 D 93 94 ABG HCO3 23 28 H 29 H ABG O2 Saturation 99 H 98 98 ABG Base Excess -3 2 3 VBG pH VBG pCO2 VBG pO2 VBG Base Excess 05/12/25 05/12/25 05/13/25 03:58 11:50 05:10 ABG pH 7.46 H 7.39 7.19 L* D ABG pCO2 41 48 60 H D ABG pO2 105 58 L* D 114 H D ABG HCO3 29 H 29 H 23 ABG O2 Saturation 99 H 90 L 98 ABG Base Excess 5 H 4 H -6 L VBG pH VBG pCO2 VBG pO2 VBG Base Excess 05/17/25 05/18/25 05/19/25 01:30 04:09 04:43 ABG pH 7.38 7.43 7.47 H ABG pCO2 46 44 43 ABG pO2 90 83 80 L ABG HCO3 27 H 29 H 31 H ABG O2 Saturation 98 97 97 ABG Base Excess 2 5 H 7 H VBG pH VBG pCO2 VBG pO2 VBG Base Excess 05/21/25 05/21/25 05/31/25 04:18 06:33 08:06 ABG pH 7.37 D 7.46 H ABG pCO2 50 H 38 D ABG pO2 40 L* D 121 H D ABG HCO3 29 H 27 H ABG O2 Saturation 66 L 100 H ABG Base Excess 3 3 VBG pH 7.55 VBG pCO2 31 L VBG pO2 144 H VBG Base Excess 5 H 06/05/25 06/05/25 06/06/25 13:37 23:46 05:20 ABG pH 7.47 H 7.45 ABG pCO2 35 38 ABG pO2 200 H 54 L* D ABG HCO3 25 26 ABG O2 Saturation 101 H 89 L ABG Base Excess 2 2 VBG pH 7.50 VBG pCO2 34 L VBG pO2 90 H VBG Base Excess 4 H 06/10/25 17:41 ABG pH ABG pCO2 ABG pO2 ABG HCO3 ABG O2 Saturation ABG Base Excess VBG pH 7.40 VBG pCO2 43 VBG pO2 43 VBG Base Excess 2 Quality Measures Quality Measures VTE prophylaxis Assessment & Plan Assessment Current Active Medications: Generic Name Dose Route Start Last Admin Trade Name Freq PRN Reason Stop Dose Admin Acetaminophen 325 mg 06/16/25 16:18 07/01/25 07:52 Acetaminophen Racquel 325 Mg/10 Ml Udc GT 07/09/25 16:12 325 mg Q4HR PRN Administration pain (1-3) or fever > 100.4 Amantadine HCl 100 mg 06/29/25 07:00 07/01/25 13:38 Amantadine Hcl 100 Mg Capsule PO 07/06/25 06:59 100 mg BID@0700,1400 KYA Administration Clonazepam 0.5 mg 06/27/25 22:00 07/01/25 13:39 Clonazepam 0.5 Mg Tablet GT 07/02/25 21:59 0.5 mg TID KYA Administration Gabapentin 900 mg 06/29/25 14:00 07/01/25 13:39 Gabapentin 300 Mg Capsule GT 07/29/25 13:59 900 mg TID KYA Administration Lansoprazole 30 mg 06/29/25 09:00 07/01/25 08:11 Lansoprazole 30 Mg Tab.Mary. GT 07/29/25 08:59 30 mg QDAY KYA Administration Protocol Levetiracetam 800 mg 06/20/25 21:00 07/01/25 08:42 Levetiracetam Liqd 500 Mg/5 Ml Udc GT 07/20/25 20:59 800 mg BID KYA Administration Quetiapine Fumarate 100 mg 06/21/25 21:00 06/30/25 21:18 Quetiapine Fumarate 100 Mg Tablet GT 07/21/25 20:59 100 mg HS KYA Administration Quetiapine Fumarate 50 mg 06/21/25 09:15 07/01/25 08:11 Quetiapine Fumarate 25 Mg Tablet GT 07/21/25 09:14 50 mg QAM KYA Administration Quetiapine Fumarate 50 mg 06/29/25 12:00 07/01/25 12:24 Quetiapine Fumarate 25 Mg Tablet GT 07/29/25 11:59 50 mg QDAY@1200 KYA Administration Plan 24-year-old male with past medical history of cerebral palsy, asthma, seizure disorder, chronic mastoiditis, recurrent pneumonia, and chronic PEG tube dependence originally presented to the ED on 05/08/2025 with fever and seizure and was admitted for sepsis workup, and the next day was transferred to the ICU for intubation due to concern for airway protection, eventually receiving tracheostomy on 05/26/2025. Patient was treated for resistant Pseudomonas pneumonia. Patient was downgraded from ICU to telemetry on 06/16/2025. Neurology is consulted as the patient has been having recurrent fevers, agitative episodes, and hyperactive movements throughout hospitalization. Patient eventually was kept on home Keppra and has been seizure-free, home Depakote has been discontinued, and started on a regimen of amantadine, clonazepam, quetiapine, and gabapentin. #Fevers of unknown origin #Dyskinesia #Hx of seizure disorder #Hx of cerebral palsy Patient has had febrile episodes since admission. EEG 05/11 unremarkable. Repeat EEG 05/20 showed electrographic seizure activity. Continuous EEG 05/22-05/23: no seizure activity or status epilepticus. Repeat EEG 06/05 negative for seizure activity. MRI brain: no acute pathology. Etiology behind fevers remained unclear. DDx: medications, infectious, hypermetabolic syndrome Was previously tried on [place] prior to hospitalization however family did not like patient's response to this medication, additionally LTAC apparently cannot administer this med. Patient currently stable on the below regimen. - Continue Keppra 800 mg BID - Continue clonazepam 0.5 mg TID - Continue gabapentin 900 mg TID - Continue Seroquel 50 mg AM, 50 mg at noon, and 100 mg HS. - Continue amantadine 100 mg BID - LTAC discharge today #Chronic mastoiditis #ESBL UTI, treated #Pseudomonas aeruginosa pneumonia, treated #Mucus plugs, right upper lung and left lower lung, treated? #Paraphimosis, resolved #Balanitis, resolved #Gingivial bleeding, oral trauma #Severe asthma, controlled #Maculopapular rash to the buttocks, resolved - as per primary team Patient was discussed with the Neurology attending, Dr. aLng. Thank you for allowing us to participate in the care of this patient. Christy Cheema, PGY-3 Attending Provider Attestation/Addendum I personally have seen and examined the patient and agreed with the resident's findings, assessment and plan of care. Patient remained stable on current management including gabapentin, Keppra, Seroquel, clonazepam. Patient is going to be discharged to [facility] [place] [facility]y
[2025-07-01] MEDS: MIDAZOLAM INJ 1 MG/ML VIAL 2 ML 2 MG IVP (16:06)
--- NOTE | 2025-07-01 16:19 | PC.NURSE ---
IV left in per transfer facility request.
--- NOTE | 2025-07-01 16:20 | PC.NURSE ---
Report given to Nurse Rdz at [facility] @ 1345
== END 2025-07-01 16:28 | DRG 4 ==
LOC: SERX 09:23 → SERHOLD 11:41 → S2NX 05-09 06:48 → S2SX 05-09 15:29 → S2NX 06-01 18:21 → S2SX 06-05 17:35 → S2NX 06-15 12:15 → S2SX 06-20 07:41 → S2NX 06-20 11:52
PROVIDERS: Internal Medicine Critical Care Medicine; Internal Medicine Infectious Disease; Psychiatry & Neurology Neurology; Student in an Organized Health Care Education/Training Program; Surgery; Admitting Provider Internal Medicine; Emergency Provider Emergency Medicine; PCP Family Medicine; Visit Provider Student in an Organized Health Care Education/Training Program
PROC: 0B110F4 Bypass Trachea to Cutaneous with Tracheostomy Device, Open Approach (ICD-10-PCS; principal; 2025-05-26 13:45)
DX: A41.52 Sepsis due to Pseudomonas (principal); G93.41 Metabolic encephalopathy; J96.21 Acute and chronic respiratory failure with hypoxia; J15.1 Pneumonia due to Pseudomonas; E87.20 Acidosis, unspecified; M62.82 Rhabdomyolysis; Z16.12 Extended spectrum beta lactamase (ESBL) resistance; Z99.11 Dependence on respirator [ventilator] status; F11.23 Opioid dependence with withdrawal; I82.623 Acute embolism and thrombosis of deep veins of upper extremity, bilateral; J98.11 Atelectasis; I47.10 Supraventricular tachycardia, unspecified; F05 Delirium due to known physiological condition; N17.9 Acute kidney failure, unspecified; T17.890A Other foreign object in other parts of respiratory tract causing asphyxiation, initial encounter; G40.909 Epilepsy, unspecified, not intractable, without status epilepticus; G80.9 Cerebral palsy, unspecified; J45.909 Unspecified asthma, uncomplicated; H70.13 Chronic mastoiditis, bilateral; R01.1 Cardiac murmur, unspecified; E87.5 Hyperkalemia; N47.2 Paraphimosis; R21 Rash and other nonspecific skin eruption; Z87.01 Personal history of pneumonia (recurrent); Z93.1 Gastrostomy status; K80.20 Calculus of gallbladder without cholecystitis without obstruction; B97.89 Other viral agents as the cause of diseases classified elsewhere; S01.512A Laceration without foreign body of oral cavity, initial encounter; E06.9 Thyroiditis, unspecified; Z74.01 Bed confinement status; E83.39 Other disorders of phosphorus metabolism; H60.93 Unspecified otitis externa, bilateral; K59.00 Constipation, unspecified; K74.60 Unspecified cirrhosis of liver; J32.4 Chronic pansinusitis; G90.89 Other disorders of autonomic nervous system; R04.0 Epistaxis; N48.1 Balanitis; N30.91 Cystitis, unspecified with hematuria; B96.20 Unspecified Escherichia coli [E. coli] as the cause of diseases classified elsewhere; D69.6 Thrombocytopenia, unspecified; H66.93 Otitis media, unspecified, bilateral; N47.1 Phimosis; E88.09 Other disorders of plasma-protein metabolism, not elsewhere classified; G24.01 Drug induced subacute dyskinesia; Z78.1 Physical restraint status; Z78.9 Other specified health status; Z79.899 Other long term (current) drug therapy; Z86.718 Personal history of other venous thrombosis and embolism; Y95 Nosocomial condition; Z87.440 Personal history of urinary (tract) infections; W44.F9XA Other object of natural or organic material, entering into or through a natural orifice, initial encounter; H71.93 Unspecified cholesteatoma, bilateral; Z88.2 Allergy status to sulfonamides; Z88.5 Allergy status to narcotic agent; Z88.1 Allergy status to other antibiotic agents; Z88.8 Allergy status to other drugs, medicaments and biological substances
CPT/HCPCS: 36415; 36600; 70450; 70481; 70551; 71045; 71250; 71260; 73562; 73590; 73720; 74018; 74176; 74177; 76705; 78306; 80048; 80053; 80164; 80184; 80202; 81001; 82010; 82040; 82042; 82164; 82306; 82340; 82436; 82550; 82607; 82784; 82803; 82945; 83540; 83550; 83605; 83615; 83690; 83735; 83880; 83916; 83970; 84100; 84133; 84145; 84157; 84300; 84439; 84443; 84478; 84484; 84550; 85025; 85610; 85652; 85730; 86140; 86171; 86331; 86403; 86592; 86635; 86644; 86645; 86664; 86665; 86703; 86780; 86788; 86789; 86803; 86850; 86900; 86901; 87015; 87040; 87070; 87077; 87081; 87086; 87102; 87106; 87116; 87186; 87205; 87206; 87305; 87449; 87491; 87493; 87497; 87498; 87502; 87530; 87591; 87633; 87634; 87661; 87811; 89051; 93005; 93306; 93970; 94002; 94003; 94640; 94644; 94664; 94667; 95813; 95816; 96361; 96365; 96366; 96375; 96376; 99285; A4216; A4649; A9270; A9503; A9577; C1878; J0131; J0133; J0290; J0612; J0696; J1100; J1171; J1200; J1450; J1630; J1644; J1650; J1720; J1885; J1953; J1956; J2060; J2185; J2247; J2250; J2251; J2270; J2470; J2543; J2560; J2704; J3010; J3360; J3373; J3475; J3480; J3490; J7030; J7050; J7120; J7121; J7602; J7644; J7999; J8499; Q9967; J7611